=== PATIENT | female | born 1955 | race Caucasian/White ===

== ENCOUNTER 2016-05-18 19:33 | Emergency (ER) | payer OTHER ==
[2016-05-18 19:43] VITALS: BP 128/62; PULSE 95; TEMP 97.7; BMI 66.5
[2016-05-18 20:21] LABS: BASOPHIL 1.2 % (0-2.0); EOSINOPHIL 1.8 % (0-4.5); MCH 25.4 pg (25.7-33.7); MCHC 32.4 g/dl (32.0-36.0); MEAN CELL VOLUME 78.4 fl (80-96); MEAN PLT VOLUME 9.8 fl (7.5-11.1); NEUTROPHILS 64.1 % (42.8-82.8); PLATELET COUNT 179 K/MM3 (134-434); RDW 17.1 % (11.6-15.6); WHITE BLOOD COUNT 7.5 K/mm3 (4.0-10.0)
[2016-05-18 20:50] LABS: URINE APPEARANCE CLEAR; URINE BILIRUBIN NEGATIVE (NEGATIVE); URINE COLOR YELLOW; URINE GLUCOSE (UA) NEGATIVE (NEGATIVE); URINE KETONE NEGATIVE (NEGATIVE); URINE LEUK ESTERASE NEGATIVE (NEGATIVE); URINE NITRITE NEGATIVE (NEGATIVE); URINE UROBILINOGEN NEGATIVE E.U./dl (0.2-1.0)
[2016-05-18 20:53] LABS: URINE BLOOD 2+ (NEGATIVE); URINE PROTEIN 3+ (NEGATIVE)
[2016-05-18 20:59] LABS: URINE MUCUS RARE; URINE RBC 95 /hpf (0-3); URINE WBC 4 /hpf (3-5)
--- NOTE | 2016-05-18 21:34 | PDOC ---
History of Present Illness - General Chief Complaint: Cold Symptoms Stated Complaint: COLD SYMPTOMS Time Seen by Provider: 05/18/16 19:46 History Source: Patient Exam Limitations: No Limitations - History of Present Illness Travel History: No Initial Comments: 05/18/16 21:28 60yo Female patient presents to ED c/o upper respiratory cold symptoms and hematuria. Patient reports she takes 5mg of Coumadin daily for Afib, she has not seen her PMD for INR testing since January of last year. Patient reports 3- 4 days of hematuria w/o urinary symptoms. Patient also reports she blew her nose x1 with noticeable blood on napkin. Denies rectal bleeding, hemoptysis, CP , Abd pain, n/v/d, fever, back pain, or any other complaints at this time. Timing/Duration: reports: getting worse Quality: reports: moderate Abdominal Pain Onset Location: denies: RUQ, LUQ, RLQ, LLQ, epigastric, periumbilical, suprapubic, generalized abdomen, flank, unknown, other Pain Radiation: denies: no radiation, RUQ, LUQ, RLQ, LLQ, epigastric, periumbilical, flank, groin, scapula, shoulder, chest, back, other Activities at Onset: reports: no specific activity Treatment Prior to Arrive: worse with: analgesics, antacids, cold pack, heat, laxative, enema, other Aggravating Factors: worse with: None, Defecation, Eating, Emotional upset, Exertion, Antares, Movement, Voiding, Change in position Alleviating Factors: worse with: None, Belching, Shallow Breathing, Defecation, Eating, Holding Breath, Passing Gas, Change in Position, Rest, Voiding, Vomiting Past History - Travel Traveled outside of the country in the last 30 days: No Close contact w/someone who was outside of country & ill: No - Past Medical History Allergies/Adverse Reactions: Allergies Allergy/AdvReac Type Severity Reaction Status Date / Time No Known Allergies Allergy Verified 05/18/16 19:43 Home Medications: Ambulatory Orders Ferrous Sulfate 325 mg PO DAILY 10/17/12 Insuln Asp Prt/Insulin Aspart [Novolog Mix 70-30 Flexpen Syrn] 35 unit SQ BID Levothyroxine [Synthroid -] 75 mcg PO DAILY 10/17/12 Loratadine [Claritin -] 10 mg PO DAILY 10/17/12 Losartan Potassium 50 mg PO DAILY 10/17/12 Metformin HCl [Glucophage] 500 mg PO BID 10/17/12 Montelukast Na [Singulair -] 10 mg PO HS 10/17/12 [place]-3 Acid Ethyl Esters [Lovaza -] 1,000 mg PO TID 10/17/12 Potassium Chloride 10 meq PO DAILY 10/17/12 Ranitidine [Zantac -] 150 mg PO BID 10/17/12 Simvastatin [Zocor -] 40 mg PO HS 10/17/12 Tiotropium [place] [Spiriva] 1 inh IH DAILY 10/17/12 Warfarin Sodium [Coumadin] 5 mg PO DAILY 10/17/12 Bumetanide [Bumex -] 1 mg PO BID@1000,1400 #60 tablet 02/19/15 Diltiazem Cd [Cardizem Cd -] 240 mg PO DAILY #30 cap.cd.24h 02/19/15 Ciprofloxacin [Cipro (Restricted To Id)] 500 mg PO Q12H #28 tablet 05/18/16 Cardiac Disorders: Yes (ARRHYTHMIA, A-FIB) COPD: Yes Diabetes: Yes GI Disorders: Yes (GERD) HTN: Yes Hypercholesterolemia: Yes Thyroid Disease: Yes (HYPOTHYROID) - Psycho/Social/Smoking Cessation Hx Anxiety: No Suicidal Ideation: No Smoking Status: No Smoking History: Never smoked Number of Cigarettes Smoked Daily: 0 Hx Alcohol Use: No Drug/Substance Use Hx: Yes Substance Use Type: None Abd/GI Specific PMHX - Complaint Specific PMHX Colitis: No Diverticulitis: No Gall Bladder Disease: No GERD: No Hepatitis: No Irritable Bowel Synd (IBS): No Pancreatitis: No GI Ulcer Disease: No Review of Systems - Review of Systems Able to Perform ROS?: Yes Is the patient limited Polish proficient: No Constitutional: No: Chills, Fever, Malaise, Weakness HEENTM: No: Eye Pain, Blurred Vision, Double Vision, Ear Pain, Nose Pain, Nose Congestion, Nose Bleeding, Throat Pain, Difficulty Swallowing Respiratory: No: Cough, Orthopnea, Shortness of Breath, Stridor, Wheezing, Hemoptysis Cardiac (ROS): Yes: Irregular Heart Rate. No: Chest Pain, Palpitations, Chest Tightness ABD/GI: No: Blood Streaked Bowels, Constipated, Diarrhea, Nausea, Poor Appetite , Poor Fluid Intake, Rectal Bleeding, Vomiting, Tarry Stools : Yes: Hematuria. No: Burning, Dysuria, Discharge, Frequency, Flank Pain, Pain, Urgency Musculoskeletal: No: Back Pain, Joint Pain, Muscle Pain, Muscle Weakness Integumentary: No: Bruising, Dryness, Erythema, Flushing, Rash Neurological: No: Headache, Numbness, Paresthesia, Seizure, Tremors, Weakness, Unsteady Gait, Ataxia All Other Systems: Reviewed and Negative *Physical Exam - Vital Signs Last Vital Signs Temp Pulse Resp BP Pulse Ox 97.7 F 95 H 18 128/62 99 05/18/16 19:40 05/18/16 19:40 05/18/16 19:40 05/18/16 19:40 05/18/16 19:40 - Physical Exam General Appearance: Yes: Nourished, Appropriately Dressed. No: Mild Distress, Moderate Distress, Severe Distress HEENT: positive: EOMI, RADHA, Normal ENT Inspection, Normal Voice, Symmetrical, TMs Normal, Pharynx Normal. negative: Tonsillar Erythema, Nasal Congestion, Rhinorrhea, Sinus Tenderness, TM Bulging, TM Dull, TM Erythema Neck: positive: Trachea midline, Supple. negative: Decreased range of motion, Stridor, Lymphadenopathy (R), Lymphadenopathy (L) Respiratory/Chest: positive: Lungs Clear, Normal Breath Sounds. negative: Respiratory Distress, Accessory Muscle Use, Labored Respiration, Rapid RR, Decreased Breath Sounds Cardiovascular: positive: Regular Rhythm, Regular Rate. negative: Edema, JVD, Murmur Gastrointestinal/Abdominal: positive: Normal Bowel Sounds, Soft. negative: Distended, Guarding, Rebound, Tenderness Musculoskeletal: positive: Normal Inspection. negative: CVA Tenderness Extremity: positive: Normal Capillary Refill, Normal Inspection, Normal Range of Motion Integumentary: positive: Normal Color, Dry, Warm Neurologic: positive: construction technician II-XII NML intact, Fully Oriented, Alert, Normal Mood/ Affect, Normal Response, Motor Strength /5 ED Treatment Course - LABORATORY CBC & Chemistry Diagram: 05/18/16 20:13 05/18/16 21:25 - ADDITIONAL ORDERS Additional order review: Laboratory Results 05/18/16 05/18/16 05/18/16 20:13 20:13 20:13 INR Sodium Cancelled Potassium Cancelled Chloride Cancelled Carbon Dioxide Cancelled Anion Gap Cancelled BUN Cancelled Creatinine Cancelled Creat Clearance w eGFR Cancelled Random Glucose Cancelled Calcium Cancelled Total Bilirubin Cancelled AST Cancelled ALT Cancelled Alkaline Phosphatase Cancelled Total Protein Cancelled Albumin Cancelled Urine Color Yellow Urine Appearance Clear Urine pH 6.0 Ur Specific [place] 1.019 Urine Protein 3+ H Urine Glucose (UA) Negative Urine Ketones Negative Urine Blood 2+ H Urine Nitrite Negative Urine Bilirubin Negative Urine Urobilinogen Negative Ur Leukocyte Esterase Negative Urine RBC 95 Urine WBC 4 Ur Epithelial Cells Rare Urine Mucus Rare Blood Type O NEGATIVE Antibody Screen Negative 05/18/16 20:13 INR Cancelled Sodium Potassium Chloride Carbon Dioxide Anion Gap BUN Creatinine Creat Clearance w eGFR Random Glucose Calcium Total Bilirubin AST ALT Alkaline Phosphatase Total Protein Albumin Urine Color Urine Appearance Urine pH Ur Specific [place] Urine Protein Urine Glucose (UA) Urine Ketones Urine Blood Urine Nitrite Urine Bilirubin Urine Urobilinogen Ur Leukocyte Esterase Urine RBC Urine WBC Ur Epithelial Cells Urine Mucus Blood Type Antibody Screen 05/18/16 20:13 RBC 5.13 D MCV 78.4 L MCHC 32.4 RDW 17.1 H D MPV 9.8 Neutrophils % 64.1 Lymphocytes % 22.2 D Monocytes % 10.7 H Eosinophils % 1.8 Basophils % 1.2 Progress Note - Progress Note Progress Note: SPOKE WITH PATIENT IN LENGTH REGARDING RESULTS OF BLOOD TEST, INR, URINALYSIS. PATIENT VERBALIZED THAT SHE DID NOT HAVE PCP, HANDBAG PARTS CUTTER, OR UROLOGIST. WILL REFER PATIENT TO THESE SPECIALIST WITH SPECIFIC INSTRUCTIONS. *DC/Admit/Observation/Transfer Diagnosis at time of Disposition: Hematuria - Discharge Dispostion Disposition: HOME Condition at time of disposition: Stable Admit: No - Prescriptions Prescriptions: Ciprofloxacin [Cipro (Restricted To Id)] 500 mg PO Q12H #28 tablet - Referrals Referrals: Zachary High MD [Staff Physician] - Bam Fernandez MD [Staff Physician] - Oswaldo Ying MD., [Staff Physician] - - Patient Instructions Printed Discharge Instructions: DI for Hematuria Additional Instructions: 1. FOLLOW UP WITH TOYIN DIAS TO ESTABLISH CARE. (PRIMARY CARE). CALL TO SCHEDULE APPOINTMENT. HAVE INR LEVEL CHECKED. 2. FOLLOW UP WITH JIMMY WAN (HANDBAG PARTS CUTTER) REGARDING IRREGULAR HEART RHYTHM , MANAGEMENT OF COUMADIN AND CARDIZEM. CALL TO SCHEDULE APPOINTMENT. 3. FOLLOW UP WITH SHERI PEREZ (UROLOGIST) REGARDING BLOOD IN URINE. CALL TO SCHEDULE APPOINTMENT. TAKE YOUR MEDICATIONS PRESCRIBED. RETURN IF YOUR SYMPTOMS WORSEN OR ANY CONCERNS FOR FURTHER EVALUATION. Print Language: AZERI
[2016-05-18 22:24] LABS: ALBUMIN 3.8 g/dl (3.4-5.0); ALK PHOS 123 U/L (45-117); ANION GAP 11 (8-16); BILIRUBIN,TOTAL 0.8 mg/dL (0.2-1.0); CALCIUM 9.3 mg/dL (8.5-10.1); CO2 26 mmol/L (21-32); CREATININE 0.9 mg/dL (0.55-1.02); GLUCOSE,RANDOM 175 mg/dL (74-106); SGOT/AST 13 U/L (15-37); SGPT/ALT 19 U/L (12-78); TOT PROT 8.2 g/dl (6.4-8.2)
[2016-05-18 22:43] LABS: INR 1.69 (0.82-1.09); PROTHROMBIN TIME (PATIENT) 18.8 SEC (9.98-11.88)
[2016-05-18] MEDS ORDERED: CIPROFLOXACIN 250 MG TABLET (RESTRICTED TO ID) PO ONE (23:23)
== END 2016-05-18 23:44 | disposition home or self-care (01) ==
LOC: JER 19:33
DX: R31.9 Hematuria, unspecified (principal); I48.91 Unspecified atrial fibrillation; Z79.01 Long term (current) use of anticoagulants; I10 Essential (primary) hypertension; Z79.84 Long term (current) use of oral hypoglycemic drugs; E78.00 Pure hypercholesterolemia, unspecified; E03.9 Hypothyroidism, unspecified; E11.9 Type 2 diabetes mellitus without complications; Z79.4 Long term (current) use of insulin; I49.8 Other specified cardiac arrhythmias; J44.9 Chronic obstructive pulmonary disease, unspecified; K21.9 Gastro-esophageal reflux disease without esophagitis
CPT/HCPCS: 36415; 80053; 81003; 81015; 85025; 85610; 86850; 86900; 86901; 87086; 87186; 99282-25

== ENCOUNTER 2016-09-08 17:56 | Inpatient (IN) | payer OTHER ==
[2016-09-08 18:05] VITALS: BMI 62.4
[2016-09-08 18:55] LABS: BASOPHIL 1.1 % (0-2.0); MCH 24.2 pg (25.7-33.7); MCHC 31.2 g/dl (32.0-36.0); MEAN CELL VOLUME 77.6 fl (80-96); MEAN PLT VOLUME 10.6 fl (7.5-11.1); NEUTROPHILS 60.4 % (42.8-82.8); PLATELET COUNT 223 K/MM3 (134-434); RDW 17.2 % (11.6-15.6); WHITE BLOOD COUNT 6.7 K/mm3 (4.0-10.0)
[2016-09-08 19:09] LABS: INR 1.33 (0.82-1.09); PROTHROMBIN TIME (PATIENT) 14.7 SEC (9.98-11.88)
[2016-09-08] MEDS ORDERED: FUROSEMIDE 40 MG/4 ML INJECTABLE VIAL IVPB ONE (19:40)
--- NOTE | 2016-09-08 19:42 | PDOC ---
History of Present Illness <Danae Kimble - Last Filed: 09/08/16 21:22> - General History Source: Patient Exam Limitations: No Limitations - History of Present Illness Initial Comments: 09/08/16 19:42 The patient is a 61 year old female, with a significant past medical history of Hypertension (on Cardizem), AFIB, diabetes, CHF, COPD, GERD and hypothyroidism , who presents to the emergency department with SOB for few days. Patient saw her PMD 2 days ago with the same complaint who was supposed to prescribe her breathing treatment pumps, but patient states that the pumps were never sent by her doctor which prompted her to present to the ED. Patient denies any new leg swelling. Patient reports orthopnea and states that she sleeps with 2 pillows. She notes that she is cold but denies any fever. She reports normal bowel movements. She denies any chest pain. She denies any hx of hernia. PSH - none PMD - Dr. Brambila <Yohana Aranda - Last Filed: 09/08/16 22:20> - General Chief Complaint: Respiratory Stated Complaint: SOB Time Seen by Provider: 09/08/16 19:23 Past History - Past Medical History Cardiac Disorders: Yes (ARRHYTHMIA, A-FIB) COPD: Yes Diabetes: Yes GI Disorders: Yes (GERD) HTN: Yes Hypercholesterolemia: Yes Thyroid Disease: Yes (HYPOTHYROID) - Psycho/Social/Smoking Cessation Hx Anxiety: No Suicidal Ideation: No Smoking Status: No Smoking History: Never smoked Number of Cigarettes Smoked Daily: 0 Hx Alcohol Use: No Drug/Substance Use Hx: No Substance Use Type: None <Danae Kimble - Last Filed: 09/08/16 21:22> <Yohana Aranda - Last Filed: 09/08/16 22:20> - Past Medical History Allergies/Adverse Reactions: Allergies Allergy/AdvReac Type Severity Reaction Status Date / Time No Known Allergies Allergy Verified 09/08/16 18:05 Home Medications: Ambulatory Orders Ferrous Sulfate 325 mg PO DAILY 10/17/12 Insuln Asp Prt/Insulin Aspart [Novolog Mix 70-30 Flexpen Syrn] 35 unit SQ BID Levothyroxine [Synthroid -] 75 mcg PO DAILY 10/17/12 Loratadine [Claritin -] 10 mg PO DAILY 10/17/12 Losartan Potassium 50 mg PO DAILY 10/17/12 Metformin HCl [Glucophage] 1,000 mg PO BID 10/17/12 Montelukast Na [Singulair -] 10 mg PO HS 10/17/12 [place]-3 Acid Ethyl Esters [Lovaza -] 1,000 mg PO TID 10/17/12 Potassium Chloride 10 meq PO DAILY 10/17/12 Ranitidine [Zantac -] 150 mg PO BID 10/17/12 Simvastatin [Zocor -] 40 mg PO HS 10/17/12 Tiotropium [place] [Spiriva] 1 inh IH DAILY 10/17/12 Warfarin Sodium [Coumadin] 5 mg PO DAILY 10/17/12 Calcium Carbonate/Vitamin D3 [Oyster Shell Calcium-Vit D Tab] 1 each PO DAILY Diltiazem Cd [Cardizem Cd -] 300 mg PO DAILY 09/08/16 Sennosides [Senna] 8.6 mg PO PRN 09/08/16 Spironolactone 60 mg PO DAILY 09/08/16 Review of Systems - Review of Systems Able to Perform ROS?: Yes Comments:: 09/08/16 19:43 GENERAL/CONSTITUTIONAL: No fever or chills. No weakness. HEAD, EYES, EARS, NOSE AND THROAT: No change in vision. No ear pain or discharge. No sore throat. CARDIOVASCULAR: No chest pain. RESPIRATORY: (+)SOB, (+)dyspnea on exertion. No cough, wheezing, or hemoptysis. GASTROINTESTINAL: No nausea, vomiting, diarrhea or constipation. GENITOURINARY: No dysuria, frequency, or change in urination. MUSCULOSKELETAL: No joint or muscle swelling or pain. No neck or back pain. SKIN: No rash NEUROLOGIC: No headache, vertigo, loss of consciousness, or change in strength/ sensation. ENDOCRINE: No increased thirst. No abnormal weight change. HEMATOLOGIC/LYMPHATIC: No anemia, easy bleeding, or history of blood clots. ALLERGIC/IMMUNOLOGIC: No hives or skin allergy. <oYhana Aranda - Last Filed: 09/08/16 22:20> *Physical Exam - Vital Signs Last Vital Signs Temp Pulse Resp BP Pulse Ox 92 H 20 151/85 97 09/08/16 18:01 09/08/16 18:01 09/08/16 18:01 09/08/16 18:01 <Danae Kimble - Last Filed: 09/08/16 21:22> - Vital Signs Last Vital Signs Temp Pulse Resp BP Pulse Ox 92 H 20 151/85 97 09/08/16 18:01 09/08/16 18:01 09/08/16 18:01 09/08/16 18:01 - Physical Exam Comments: 09/08/16 19:43 GENERAL: Awake, alert, and fully oriented, in no acute distress HEAD: No signs of trauma EYES: PERRLA, EOMI, sclera anicteric, conjunctiva clear ENT: Auricles normal inspection, hearing grossly normal, nares patent, oropharynx clear without exudates. Moist mucosa NECK: Normal ROM, supple, no lymphadenopathy, JVD, or masses LUNGS: (+)Left lower lung field decreased breath sounds. No wheezes, and no crackles HEART: (+)Afib, irregularly irregular rhythm with normal rate. Normal S1 and S2 , no murmurs, rubs or gallops ABDOMEN: (+)Morbidly obese. Soft, nontender, normoactive bowel sounds. No guarding, no rebound. No masses EXTREMITIES: (+)bilateral pedal edema. Normal range of motion. No clubbing or cyanosis. No cords, erythema, or tenderness NEUROLOGICAL: Cranial nerves II through XII grossly intact. Normal speech. SKIN:(+)Chronic thickened skin elephantiasis bilaterally. Warm, Dry, normal turgor, no rashes or lesions noted. <Yohana Aranda - Last Filed: 09/08/16 22:20> ED Treatment Course - LABORATORY CBC & Chemistry Diagram: 09/08/16 18:45 09/08/16 19:48 - ADDITIONAL ORDERS Additional order review: Laboratory Results 09/08/16 09/08/16 09/08/16 18:45 18:45 18:45 INR 1.33 H Sodium Cancelled Potassium Cancelled Chloride Cancelled Carbon Dioxide Cancelled Anion Gap Cancelled BUN Cancelled Creatinine Cancelled Creat Clearance w eGFR Cancelled Random Glucose Cancelled Calcium Cancelled Total Bilirubin Cancelled AST Cancelled ALT Cancelled Alkaline Phosphatase Cancelled Creatine Kinase Cancelled Troponin I Cancelled B-Natriuretic Peptide Cancelled Total Protein Cancelled Albumin Cancelled 09/08/16 18:45 RBC 5.38 H MCV 77.6 L MCHC 31.2 L RDW 17.2 H MPV 10.6 Neutrophils % 60.4 Lymphocytes % 25.0 Monocytes % 11.5 H Eosinophils % 2.0 Basophils % 1.1 <Danae Kimble - Last Filed: 09/08/16 21:22> - LABORATORY CBC & Chemistry Diagram: 09/08/16 18:45 09/08/16 19:48 - ADDITIONAL ORDERS Additional order review: Laboratory Results 09/08/16 09/08/16 09/08/16 18:45 18:45 18:45 INR 1.33 H Sodium Cancelled Potassium Cancelled Chloride Cancelled Carbon Dioxide Cancelled Anion Gap Cancelled BUN Cancelled Creatinine Cancelled Creat Clearance w eGFR Cancelled Random Glucose Cancelled Calcium Cancelled Total Bilirubin Cancelled AST Cancelled ALT Cancelled Alkaline Phosphatase Cancelled Creatine Kinase Cancelled Troponin I Cancelled B-Natriuretic Peptide Cancelled Total Protein Cancelled Albumin Cancelled 09/08/16 18:45 RBC 5.38 H MCV 77.6 L MCHC 31.2 L RDW 17.2 H MPV 10.6 Neutrophils % 60.4 Lymphocytes % 25.0 Monocytes % 11.5 H Eosinophils % 2.0 Basophils % 1.1 <Yohana Aranda - Last Filed: 09/08/16 22:20> Medical Decision Making - Medical Decision Making 09/08/16 20:47 Pt comes with CHF exacerbation. She is beyond morbidly obese - BMI is 62. She is able to walk short distances. SHe saw her PMD [place] yesterday and she was told that her SOB is par for the course. Pt states that she has decreased appetite ad she complains that the SOB is worse. NO fevers and no cough. She has rate controlled AFIB with cardizem. Pt has no frit mixer; she likely needs a cardiology consult. On exam she has no breath sounds at the LLL, and on XR she has a large effusion on the left and patchy effususion throughout both lung juarez. Pt will be admitted to hospitalist. She was given IV lasix and she is urinating. 09/08/16 21:16 Pt has no WBC elevation. Pt has relatively normal BNP of 441. Pt has normal chemistries. She will be admitted to the hospitalist Med/Surg bed. <Danae Kimble - Last Filed: 09/08/16 21:22> *DC/Admit/Observation/Transfer - Discharge Dispostion Admit: Yes <Danae Kimble - Last Filed: 09/08/16 21:22> - Attestations Scribe Attestion: 09/08/16 19:46 Documentation prepared by ERIN Keys, acting as medical records tech for Danae Kimble MD. <Yohana Aranda - Last Filed: 09/08/16 22:20> Diagnosis at time of Disposition: CHF exacerbation, Morbidly obese, Pleural effusion, Acute dyspnea, HTN ( hypertension) - Discharge Dispostion Condition at time of disposition: Poor - Referrals
[2016-09-08] MEDS ORDERED: FUROSEMIDE 40 MG/4 ML INJECTABLE VIAL ONE (19:49)
[2016-09-08 20:38] LABS: ALBUMIN 3.2 g/dl (3.4-5.0); BILIRUBIN,TOTAL 0.5 mg/dL (0.2-1.0); CALCIUM 9.8 mg/dL (8.5-10.1); COCKROFT - GAULT 158.797; TOT PROT 7.6 g/dl (6.4-8.2)
[2016-09-08 20:40] LABS: TROPONIN I < 0.02 ng/ml (0.00-0.05)
--- NOTE | 2016-09-08 21:23 | PN ---
<Zaire Jackman - Last Filed: 09/08/16 21:23> Teaching Attending Note Name of Resident: Rod Cid ATTENDING PHYSICIAN STATEMENT I saw and evaluated the patient. I reviewed the resident's note and discussed the case with the resident. I agree with the resident's findings and plan as documented. SUBJECTIVE: OBJECTIVE: ASSESSMENT AND PLAN: <Festus Smith - Last Filed: 09/08/16 22:42> Teaching Attending Note ATTENDING PHYSICIAN STATEMENT I saw and evaluated the patient. I reviewed the resident's note and discussed the case with the resident. I agree with the resident's findings and plan as documented. SUBJECTIVE: The patient is a 61 year old female, with a significant past medical history of Hypertension (on Cardizem), AFIB (on sumadin), diabetes, CHF, COPD, GERD and hypothyroidism, who presented to the emergency department with shortness of breath. Patient noted that she has associated orthopnea and sleeps with two pillows. She denies any chest pain. She denies any hx of hernia. PMD - Dr. Brambila OBJECTIVE: Last Vital Signs 3 Temp Pulse Resp BP Pulse Ox 63 22 126/71 97 09/08/16 21:09 09/08/16 21:09 09/08/16 21:09 09/08/16 21:09 Physical Exam: GEN: Obese female NAD HEENT: NCAT, PERRL CARD: Irregular rate and rhythm, S1 S2 RESP: (+) CTAB. Decreased breath sounds lower lobe ABD: NT, BWS x4 EXT: - CCE SKIN: (+) Chronic venous stasis and Bilateral lymphedema Labs: CBCD 3 WBC 6.7 K/mm3 (4.0-10.0) 09/08/16 18:45 RBC 5.38 M/mm3 (3.60-5.2) H 09/08/16 18:45 Hgb 13.0 GM/dL (10.7-15.3) 09/08/16 18:45 Hct 41.8 % (32.4-45.2) 09/08/16 18:45 MCV 77.6 fl (80-96) L 09/08/16 18:45 MCHC 31.2 g/dl (32.0-36.0) L 09/08/16 18:45 RDW 17.2 % (11.6-15.6) H 09/08/16 18:45 Plt Count 223 K/MM3 (134-434) D 09/08/16 18:45 MPV 10.6 fl (7.5-11.1) 09/08/16 18:45 CMP 3 Sodium 140 mmol/L (136-145) 09/08/16 19:48 Potassium 3.9 mmol/L (3.5-5.1) 09/08/16 19:48 Chloride 102 mmol/L (98-107) 09/08/16 19:48 Carbon Dioxide 28 mmol/L (21-32) 09/08/16 19:48 Anion Gap 10 (8-16) 09/08/16 19:48 BUN 13 mg/dL (7-18) 09/08/16 19:48 Creatinine 1.0 mg/dL (0.55-1.02) 09/08/16 19:48 Creat Clearance w eGFR 56.37 (>60) 09/08/16 19:48 Calcium 9.8 mg/dL (8.5-10.1) 09/08/16 19:48 Total Bilirubin 0.5 mg/dL (0.2-1.0) D 09/08/16 19:48 AST 21 U/L (15-37) D 09/08/16 19:48 ALT 15 U/L (12-78) D 09/08/16 19:48 Alkaline Phosphatase 123 U/L (45-117) H 09/08/16 19:48 Total Protein 7.6 g/dl (6.4-8.2) 09/08/16 19:48 Albumin 3.2 g/dl (3.4-5.0) L 09/08/16 19:48 Imaging: EXAM: Chest X-ray. Impression: Left pleural effusion bilateral patchy infiltrates EXAM: ECG. Impression: AFIB rate 77 QTC 427 ASSESSMENT AND PLAN: The patient is a 61 year old female, with a significant past medical history of Hypertension (on Cardizem), AFIB (on sumadin), diabetes, CHF, COPD, GERD and hypothyroidism, who presented to the emergency department with shortness of breath. 1. Shortness of breath - Differential diagnosis pneumonia versus CHF - CT chest with contrast - Post lasik in ED - Strict I & O - Restrict fluid - Trend troponin/ECg - Thoracocentesis with fluid analysis 2. Acute on chronic CHF exacerbation - ECHO - ECG/troponins - Continue lasix 3 Hypothyroid - Stat TSH - Continue synthroid 4. AFIB - [id number]. On coumadin subtherapeutic. - Lovenox - Continue coumadin - Continue cardizem - Cardio consult consider decreasing cardizem dose or switching to beta av 5. Diabetes - Hold metformin - Diabetic diet - Hold flexpen - Place on sliding scale Admit to med surg. Documentation prepared by Festus Smith, acting as medical videographer for Dr. Zaire Jackman MD.
[2016-09-08] MEDS ORDERED: ENOXAPARIN NA (PORCINE) 40 MG/0.4 ML DISP.SYRIN SQ SCH (22:30)
[2016-09-08] MEDS ORDERED: SENNOSIDES 8.6MG TABLET (FP) PO PRN (22:45)
[2016-09-08] MEDS: INSULIN SLIDING SCALE (NOVOLOG) 1 VIAL SQ SCH (22:50)
[2016-09-08] MEDS ORDERED: INSULIN (NOVOLOG) ASPART 100 UNITS/ML 10ML VIAL ONE (22:53)
[2016-09-08] MEDS ORDERED: ENOXAPARIN NA (PORCINE) 80 MG/0.8 ML DISP.SYRIN SQ ONE (22:53)
--- NOTE | 2016-09-08 23:09 | HP ---
CHIEF COMPLAINT: PCP: Dr Brambila HISTORY OF PRESENT ILLNESS: 61 year old female with pmh of Hypertension, AFIB on Coumadin, diabetes, CHF, COPD, GERD and hypothyroidism presented to ED with worsening shortness of breath. the shortness of breath started on 3-4 days ago with dyspnea on exertion , orthopnea. Pt has b/l lower ext swelling but she stated that it has been swollen for years. Pt also has productive cough with yellow sputum, and rhinorrhea for 1 week, no hemoptysis. NO fever, chills, no chest pain or palpitation, no n/v, no dizziness or confusion, no diaphoresis or felling of impending doom, no weakness or fatigue, no arthalgia or myalgia. Pt also complain of being off her spiriva since he doctor did not give her any refill. Pt restarted Coumadin 3 days ago, she had stopped using it per her PCP order for GI bleed. No hematuria, no melena, no hematochezia. ER course was notable for: (1) CXR, LAsix 40mg IV once, Recent Travel: None PAST MEDICAL HISTORY: Hypertension (on Cardizem), AFIB, diabetes, CHF, COPD, GERD and hypothyroidism PAST SURGICAL HISTORY: denies Social History: Smoking:denies Alcohol:denies Drugs: denies Family History: Mother with diabetes Allergies No Known Allergies Allergy (Verified 09/08/16 18:05) HOME MEDICATIONS: Home Medications Medication Instructions Recorded Ferrous Sulfate 325 mg PO DAILY 10/17/12 Insuln Asp Prt/Insulin Aspart 35 unit SQ BID 10/17/12 [Novolog Mix 70-30 Flexpen Syrn] Levothyroxine [Synthroid -] 75 mcg PO DAILY 10/17/12 Loratadine [Claritin -] 10 mg PO DAILY 10/17/12 Losartan Potassium 50 mg PO DAILY 10/17/12 Metformin HCl [Glucophage] 1,000 mg PO BID 10/17/12 Montelukast Na [Singulair -] 10 mg PO HS 10/17/12 [place]-3 Acid Ethyl Esters [Lovaza 1,000 mg PO TID 10/17/12 -] Potassium Chloride 10 meq PO DAILY 10/17/12 Ranitidine [Zantac -] 150 mg PO BID 10/17/12 Simvastatin [Zocor -] 40 mg PO HS 10/17/12 Tiotropium [place] [Spiriva] 1 inh IH DAILY 10/17/12 Warfarin Sodium [Coumadin] 5 mg PO DAILY 10/17/12 Calcium Carbonate/Vitamin D3 1 each PO DAILY 09/08/16 [Oyster Shell Calcium-Vit D Tab] Diltiazem Cd [Cardizem Cd -] 300 mg PO DAILY 09/08/16 Sennosides [Senna] 8.6 mg PO PRN 09/08/16 Spironolactone 60 mg PO DAILY 09/08/16 REVIEW OF SYSTEMS CONSTITUTIONAL: Absent: fever, chills, diaphoresis, generalized weakness, malaise, loss of appetite, weight change HEENT: Absent: rhinorrhea, nasal congestion, throat pain, throat swelling, difficulty swallowing, mouth swelling, ear pain, eye pain, visual changes CARDIOVASCULAR: peripheral edema Absent: chest pain, syncope, palpitations, irregular heart rate, lightheadedness , RESPIRATORY: cough, shortness of breath, dyspnea with exertion, orthopnea Absent: wheezing, stridor, hemoptysis GASTROINTESTINAL: Absent: abdominal pain, abdominal distension, nausea, vomiting, diarrhea, constipation, melena, hematochezia GENITOURINARY: Absent: dysuria, frequency, urgency, hesitancy, hematuria, flank pain, genital pain MUSCULOSKELETAL: Absent: myalgia, arthralgia, joint swelling, back pain, neck pain SKIN: Absent: rash, itching, pallor HEMATOLOGIC/IMMUNOLOGIC: Absent: easy bleeding, easy bruising, lymphadenopathy, frequent infections ENDOCRINE: Absent: unexplained weight gain, unexplained weight loss, heat intolerance, cold intolerance NEUROLOGIC: Absent: headache, focal weakness or paresthesias, dizziness, unsteady gait, seizure, mental status changes, bladder or bowel incontinence PSYCHIATRIC: Absent: anxiety, depression, suicidal or homicidal ideation, hallucinations. PHYSICAL EXAMINATION Vital Signs - 24 hr 09/08/16 22:30 Temperature 97.4 F L Pulse Rate [ 68 Left Radial] Respiratory 19 Rate Blood Pressure 130/74 [Left Arm] O2 Sat by Pulse 97 Oximetry (%) GENERAL: Awake, alert, and fully oriented, morbidly obese female in no acute distress. HEAD: Normal with no signs of trauma. EYES: Pupils equal, round and reactive to light, extraocular movements intact, sclera anicteric, conjunctiva clear. No lid lag. EARS, NOSE, THROAT: Ears normal, nares patent, oropharynx clear without exudates. Moist mucous membranes. NECK: Normal range of motion, supple without lymphadenopathy, JVD, or masses. LUNGS: diminhed breath sound in lower half lung field. exp wheezes in right and upper left lung wheezes. No accessory muscle use. HEART: Regular rate and rhythm, normal S1 and S2 without murmur, rub or gallop. ABDOMEN: Soft, obese, nontender, not distended, normoactive bowel sounds, no guarding, no rebound, no masses. No hepatomegaly or splenomegaly. MUSCULOSKELETAL: Normal range of motion at all joints. No bony deformities or tenderness. No CVA tenderness. UPPER EXTREMITIES: 2+ pulses, warm, well-perfused. No cyanosis. No clubbing. No peripheral edema. LOWER EXTREMITIES: 2+ pulses, warm, well-perfused. No calf tenderness. 2+ b/l lower ext edema, venous stasis and lymphadema NEUROLOGICAL: Cranial nerves II-XII intact. Normal speech. PSYCHIATRIC: Cooperative. Good eye contact. Appropriate mood and affect. SKIN: Warm, dry, normal turgor, no rashes or lesions noted, normal capillary refill. b/l lower ext with swollen, dry, scaly skin CBC, BMP 09/08/16 18:45 09/08/16 19:48 Laboratory Tests 09/08/16 09/08/16 18:45 19:48 INR 1.33 H Troponin I < 0.02 B-Natriuretic Peptide 441.31 H ASSESSMENT/PLAN: 61 year old female with pmh of Hypertension, AFIB on Coumadin, diabetes, CHF, COPD, GERD and hypothyroidism presented to ED with worsening shortness of breath. Pt was found to have large left pleural effusion and multiple diffuse small area of opacities on CXR. Shortness of breath likely from Left pleural effusion, URI less likely CHF large left pleural effusion seen on CXR Will likely need paracentesis CT chest with IV contrast LAsix 40mg IV daily Pulmonary consult keeP O2 90% PRN oxygen [place] VS COPD Denies h/o smoking mostly wheezes productive cough for 1 week If COPD will be bronchitis predominant resume spririva Albuterol PRN Resume Loratidine Pulmonary consulted b/l pulmonary patches r/o infiltrates, nodules, mets CT chest with IV contrast Pulmonary consult Diabetes BGM ACHS Novolog sliding scale Hga1c CHF BNP 441, which is borderline Do not have high suspicion of acute exacerbation Intake and output daily weight Echo LAsix 40mg IV Spironolactone AFIB Diltiazem Cd 300daily Coumadin 5mg PO daily Since INR is subtherapeuric will bridge couamdin Lovenox 170mg BID HTN Losartan Hyperlipedemia Simvastatin Hypothyroidism Levothyroxine 75 mcg daily GERD ranitidine FEN Fluid: none Electrolytes: chemistry in am Nutrition: diabetic diet DVT: lovenox, coumadin Disposition: admit to [facility] Visit type - Emergency Visit Emergency Visit: Yes ED Registration Date: 09/08/16 Care time: The patient presented to the Emergency Department on the above date and was hospitalized for further evaluation of their emergent condition. - New Patient This patient is new to me today: Yes Date on this admission: 09/09/16 - Critical Care Critical Care patient: No
[2016-09-08] MEDS ORDERED: ENOXAPARIN SQ SCH (23:30)
[2016-09-09] MEDS: INSULIN SLIDING SCALE (NOVOLOG) 1 VIAL SQ SCH ×4 (06:17→21:39)
[2016-09-09] MEDS: LEVOTHYROXINE NA 75 MCG TABLET (FP) PO SCH (06:31)
[2016-09-09 07:46] LABS: MCH 24.9 pg (25.7-33.7); MCHC 32.2 g/dl (32.0-36.0); MEAN CELL VOLUME 77.3 fl (80-96); MEAN PLT VOLUME 10.6 fl (7.5-11.1); PLATELET COUNT 181 K/MM3 (134-434); RDW 17.1 % (11.6-15.6); WHITE BLOOD COUNT 5.1 K/mm3 (4.0-10.0)
[2016-09-09 08:45] LABS: CALCIUM 9.4 mg/dL (8.5-10.1); COCKROFT - GAULT 156.519; MAGNESIUM 1.7 mg/dL (1.8-2.4)
[2016-09-09] MEDS ORDERED: FUROSEMIDE 40 MG TABLET (FP) PO SCH (10:00)
[2016-09-09] MEDS ORDERED: ENOXAPARIN SQ SCH (10:00)
[2016-09-09] MEDS ORDERED: TIOTROPIUM BROMIDE 18 MCG/INH (DEVICE W/ 5 CAPSULES) IH SCH (10:00)
[2016-09-09] MEDS ORDERED: INSULIN (NOVOLOG) ASPART 100 UNITS/ML 10ML VIAL ONE (11:33)
[2016-09-09] MEDS: OMEGA-3 ACID ETHYL ESTERS (FATTY-ACIDS) 1 GM CAPSULE (FP) PO SCH ×3 (11:46→21:26)
[2016-09-09] MEDS: LORATADINE 10 MG TABLET PO SCH (11:47)
[2016-09-09] MEDS: RANITIDINE HCL 150 MG TABLET (FP) PO SCH ×2 (11:47→21:26)
[2016-09-09] MEDS: FERROUS SO4 325 MG TABLET (FP) PO SCH (11:47)
[2016-09-09] MEDS: POTASSIUM CHLORIDE ORAL LIQUID 20 MEQ/15 ML PO SCH (11:48)
[2016-09-09] MEDS: SPIRONOLACTONE 25 MG TABLET (FP) PO SCH (11:48)
[2016-09-09] MEDS: LOSARTAN POTASSIUM 50 MG TABLET (FP) PO SCH (11:48)
[2016-09-09] MEDS: ACLIDINIUM BROMIDE 400 MCG/INH AERO.POWD IH SCH ×2 (11:49→21:26)
--- NOTE | 2016-09-09 14:04 | EKG ---
Test Reason : Blood Pressure : / mmHG Vent. Rate : 077 BPM Atrial Rate : 357 BPM P-R Int : 000 ms QRS Dur : 080 ms QT Int : 378 ms P-R-T Axes : 000 021 -26 degrees QTc Int : 427 ms ATRIAL FIBRILLATION NONSPECIFIC T WAVE ABNORMALITY ABNORMAL ECG WHEN COMPARED WITH ECG OF 15-FEB-2015 17:58, T WAVE VARIATION Confirmed by DIANA MARQUEZ MD ([id number]) on 09/09/2016 2:03:44 PM Referred By: Confirmed By:DIANA MARQUEZ MD
[2016-09-09] MEDS ORDERED: MAGNESIUM OXIDE 400 MG TABLET (FP) PO ONE (14:19)
--- NOTE | 2016-09-09 14:21 | PN ---
Teaching Attending Note Name of Resident: Natasha Hodge ATTENDING PHYSICIAN STATEMENT I saw and evaluated the patient. I reviewed the resident's note and discussed the case with the resident. I agree with the resident's findings and plan as documented. SUBJECTIVE:continues to have SOB progressively worsening over the past week. saw PMD on Friday who did not prescribe anything. assoc with productive cough of yellow sputum, +orthopnea, subjective weight loss. denies CP, SOB, fever, chills, N/V/C/D. denies smoking coumadin was stopped due to vaginal bleeding but was re-started 3 days ago. claims compliance does not know dry weight OBJECTIVE: Last Vital Signs Temp Pulse Resp BP Pulse Ox 98 F 93 H 18 136/67 100 09/09/16 11:00 09/09/16 11:00 09/09/16 11:00 09/09/16 11:09/09/16 09:00 General NAD CV S1 S2 RRR no murmur/rub/gallop LUngs decreased breath sounds L mid lung field to base, crackles R base Abdomen soft NT/ND obese Extremities chronic venous changes, lymphedema ASSESSMENT AND PLAN: 61yo F with PMH HTN, afib on coumadin, hypothyroid, COPD and DM presented to the ER for dyspnea on exertion 1. L side pleural effusion- CT scan reviewed and high concern for malignancy with innumerable pulmonary nodules. +subjective weight loss, recent vaginal bleeding possible primary? echo performed this AM. plan for thoracentesis for pleural fluid analysis. cytology to be sent. will check CEA, Ca 19-9, CA 125. will obtain CT abdomen/pelvis with contrast tomorrow, hold today as received contrast yesterday. cont supplemental oxygen to maintain spO2 >90% pulmonary consulted 2. Afib on coumadin- recently re-started. INR subtherapeutic. will hold at this time for pending procedure. then re-start full dose lovenox and coumadin bridge cont diltiazem 3. Hypomagnesemia- mg 800mg 4. Morbid obesity- BMI 61. bariatric referral as outpatient 5. Hypothyroid- cont LT4 6. DM- controlled. hold oral agents. cont iss, bgm 7. DVT ppx- full dose lovenox after procedure. currently on hold
--- NOTE | 2016-09-09 15:08 | PN ---
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 PRIMARY ?GYNECOLOGIC,?COLON CHF AFIB HTN DM H/O ASTHMA HYPOTHYROID MORBID OBESITY PLAN THORACENTESIS CHECK CYTOLOGY PLEURAL FLUID NASAL O2 INHALED BRONCHODILATORS DR KATE Problem List - Problems (1) A-fib Code(s): I48.91 - UNSPECIFIED ATRIAL FIBRILLATION (2) Acute dyspnea Code(s): R06.00 - DYSPNEA, UNSPECIFIED (3) HTN (hypertension) Code(s): I10 - ESSENTIAL (PRIMARY) HYPERTENSION (4) Morbidly obese Code(s): E66.01 - MORBID (SEVERE) OBESITY DUE TO EXCESS CALORIES (5) Pleural effusion Code(s): J90 - PLEURAL EFFUSION, NOT ELSEWHERE CLASSIFIED (6) Hypothyroid Code(s): E03.9 - HYPOTHYROIDISM, UNSPECIFIED (7) Lymphedema Code(s): I89.0 - LYMPHEDEMA, NOT ELSEWHERE CLASSIFIED (8) Pulmonary nodules/lesions, multiple Code(s): R91.8 - OTHER NONSPECIFIC ABNORMAL FINDING OF LUNG FIELD
[2016-09-09 15:47] LABS: CHLORIDE PLEURAL FLUID 104
[2016-09-09 16:24] LABS: PLEURAL FLUID APPEARANCE BLOODY; PLEURAL FLUID COLOR RED; PLEURAL FLUID SOURCE LEFT PLEURAL
[2016-09-09] MEDS ORDERED: WARFARIN NA 5 MG TABLET (UD) PO SCH (18:00)
--- NOTE | 2016-09-09 18:19 | PN ---
Physical Exam: SUBJECTIVE: Patient seen and examined by me at bedside. Patient reports she continues to have shortness of breath that worsened this week associated with a productive cough with yellow sputum. She does report having weight loss because her pants are a lot looser. When asking if she saw her PCP she reports that she did but not much was done. She recently had vaginal bleeding and her PCP discontinued her coumadin but had restarted it three days ago. Otherwise, patient denies fever, chills, nausea, vomiting, abdominal pain, chest pain, palpitations. OBJECTIVE: Vital Signs Period Temp Pulse Resp BP Sys/Dinero Pulse Ox Last 24 Hr 97.4 F-98 F 68-97 18-20 130-137/67-80 97-100 GENERAL: The patient is awake, alert, and fully oriented, in no acute distress. LUNGS: Decreased breath sounds throughout lower lung field. HEART: Regular rate and rhythm, normal S1 and S2 without murmur, rub or gallop. ABDOMEN: Soft, Obese, nontender, nondistended, normoactive bowel sounds. EXTREMITIES: B/L lower extremity chronic venous changes with lymphedema and scaly dry skin. Laboratory Results - last 24 hr 09/08/16 09/09/16 09/09/16 22:49 06:08 06:47 WBC 5.1 RBC 5.12 Hgb 12.7 Hct 39.6 MCV 77.3 L MCHC 32.2 RDW 17.1 H Plt Count 181 MPV 10.6 Sodium Potassium Chloride Carbon Dioxide Anion Gap BUN Creatinine POC Glucometer [id number] 125 Random Glucose Calcium Magnesium Pleural Fluid Source Pleural Color Pleural Appearance Pleural WBC Pleural RBC Pleural Chloride Pleural Total Protein Pleural Albumin Pleural LDH Pleural Glucose Pleural Amylase Pleural Cholesterol Pleural Triglycerides 09/09/16 09/09/16 09/09/16 06:47 12:00 13:30 WBC RBC Hgb Hct MCV MCHC RDW Plt Count MPV Sodium 141 Potassium 3.9 Chloride 100 Carbon Dioxide 27 Anion Gap 14 BUN 12 Creatinine 1.0 POC Glucometer 181 Random Glucose 122 H Calcium 9.4 Magnesium 1.7 L Pleural Fluid Source Left pleural Pleural Color Red Pleural Appearance Bloody Pleural WBC 1343 Pleural RBC 225501 Pleural Chloride 104 Pleural Total Protein 4.950 Pleural Albumin 3 Pleural LDH 579 Pleural Glucose 184.320 Pleural Amylase 45.364 Pleural Cholesterol 61 Pleural Triglycerides 57 09/09/16 17:38 WBC RBC Hgb Hct MCV MCHC RDW Plt Count MPV Sodium Potassium Chloride Carbon Dioxide Anion Gap BUN Creatinine POC Glucometer 157 Random Glucose Calcium Magnesium Pleural Fluid Source Pleural Color Pleural Appearance Pleural WBC Pleural RBC Pleural Chloride Pleural Total Protein Pleural Albumin Pleural LDH Pleural Glucose Pleural Amylase Pleural Cholesterol Pleural Triglycerides Active Medications Generic Name Dose Route Start Last Admin Trade Name Freq PRN Reason Stop Dose Admin Aclidinium [place] 1 puff 09/09/16 10:00 09/09/16 11:49 Tudorza - IH 1 puff BID VIRGILIO Administration Albuterol Sulfate 1 amp 09/08/16 21:38 Ventolin 0.083% Nebulizer Soln - NEB Q4H PRN SHORT OF BREATH/WHEEZING Atorvastatin Calcium 20 mg 09/09/16 22:00 Lipitor - PO HS VIRGILIO Diltiazem HCl 300 mg 09/09/16 10:00 09/09/16 11:47 Cardizem Cd - PO 300 mg DAILY VIRGILIO Administration Ferrous Sulfate 325 mg 09/09/16 10:00 09/09/16 11:47 Feosol - PO 325 mg DAILY VIRGILIO Administration Insulin Aspart 1 vial 09/09/16 14:21 09/09/16 17:40 Novolog Vial Sliding Scale - SQ Not Given ACHS VIRGILIO Protocol Levothyroxine Sodium 75 mcg 09/09/16 07:00 09/09/16 06:31 Synthroid - PO 75 mcg DAILY@0700 VIRGILIO Administration Loratadine 10 mg 09/09/16 10:00 09/09/16 11:47 Claritin - PO 10 mg DAILY VIRGILIO Administration Losartan Potassium 50 mg 09/09/16 10:00 09/09/16 11:48 Cozaar - PO 50 mg DAILY VIRGILIO Administration Montelukast Sodium 10 mg 09/09/16 22:00 Singulair - PO HS VIRGILIO Ptnah-5-Ypeh Ethyl Esters 1 gm 09/09/16 06:00 09/09/16 16:17 Lovaza - PO 1 gm TID VIRGILIO Administration Potassium Chloride 10 meq 09/09/16 10:00 09/09/16 11:48 Potassium Chloride Oral Liquid PO 10 meq DAILY VIRGILIO Administration Ranitidine HCl 150 mg 09/09/16 10:00 09/09/16 11:47 Zantac - PO 150 mg BID VIRGILIO Administration Senna 1 tab 09/08/16 22:45 Senna - PO DAILY PRN Spironolactone 50 mg 09/09/16 10:00 09/09/16 11:48 Aldactone - PO 50 mg DAILY VIRGILIO Administration Images: Chest X-ray (09/08/16): Moderate left pleural effusion with compressive atelectasis. Multiple lung nodules - lung metastasis. Chest CT w/ Contrast (09/08/16): Innumerable bilateral pulmonary nodules, moderate to large left pleural effusion, and mediastinal and hilar lymphadenopathy are highly suspicious for metastatic disease. 2.9 cm hypodense mass is seen in the left lobe of the liver. Thoracocentesis under U/S guide (09/09/16) Chest X-ray (09/09/16): Decreased Pleural Effusion. No Pneumothorax seen. ASSESSMENT/PLAN: Patient is a 61 year old female with PMHx of HTN, A.fib on Coumadin, DMII, CHF, COPD, GERD and hypothyroidism who presented for dyspnea and was found to have a large left pleural effusion with multiple nodules on chest x-ray. Patient admitted for further monitoring and management. Dyspnea Likely Secondary to Left Sided Pleural Effusion with B/L Pulmonary Nodules -CT and CXR revealed multiple nodules and pleural effusion -Reports weight loss and vaginal bleeding. Possibly a primary source from ovarian ca? -Likely secondary to malignancy -Paracentesis done and showed bloody pleural effusions likely malignant. Cytology sent and pending -Tumor workup done for CEA, Ca 19-9, and CA 125 -CT abdo/pelvis with contrast tomorrow -Continue O2 PRN -Pulmonology consult placed Asthma/COPD -No history of smoking -Continue with Spiriva -Continue Tudorza -Continue with Albuterol PRN -Pulmonology consult appreciated Hypomagnesemia -Magnesium oxide 800mg PO -Will continue to monitor Atrial Fibrillation -Subtherapeutic INR -On coumadin 5mg at home. On hold due to procedure done. Will restart Lovenox tomorrow and coumadin bridge -Continue Diltiazem Cd 300mg daily -Continue to monitor PT Systolic CHF- Chronic -BNP 441 -Strict I&O's -Daily weight -Given Lasix 40mg IV daily -Continue Spironolactone 50mg daily -ECHO ordered DMII -BGM ACHS -Novolog sliding scale HTN Continue Losartan 50mg daily -Continue to monitor BP HLD -Continue Lipitor 20mg Hypothyroidism -Continue Levothyroxine 75mcg daily GERD -Continue Ranitidine 150mg BID Morbid Obesity -Bariatric referral as outpatient F/E/N -On no fluids -Hypomagnesemia: Mag oxide 800mg PO given -Diabetic diet Prophylaxis -Will Hold lovenox and Coumadin due to bloody thoracocentesis. SCD's for now Disposition -CT abdo and pelvis to rule out malignancy. Awaiting cytology from thoracocentesis. Visit type - Emergency Visit Emergency Visit: Yes ED Registration Date: 09/08/16 Care time: The patient presented to the Emergency Department on the above date and was hospitalized for further evaluation of their emergent condition. - New Patient This patient is new to me today: Yes Date on this admission: 09/09/16 - Critical Care Critical Care patient: No
[2016-09-09 18:37] LABS: PLEURAL FLUID NEUTROPHIL 1 %
[2016-09-09 18:38] LABS: PLEURAL FLUID LYMPHOCYTES 10 %; PLEURAL FLUID MACROPHAGES 58 %
[2016-09-09] MEDS: ATORVASTATIN CA 20 MG TABLET (FP) PO SCH (21:26)
[2016-09-09] MEDS: MONTELUKAST NA 10 MG TABLET PO SCH (21:26)
[2016-09-09] MEDS ORDERED: SODIUM CHLORIDE 500 ML IV STA (21:39)
--- NOTE | 2016-09-10 02:00 | CONS ---
DATE OF CONSULTATION: 09/09/2016 REFERRING PHYSICIAN: Lilli Spencer MD The patient is a 61-year-old white female with a past medical history of hypertension, atrial fibrillation, diabetes, congestive heart failure, COPD/ asthma, GERD, hypothyroidism, nonsmoker, admitted to [facility] complaining of 1-week history of increasing shortness of breath and dyspnea on exertion. Patient states she was doing okay until approximately a week prior to admission; started developing increasing shortness of breath and dyspnea on exertion. Last Friday, she developed increasing shortness of breath with minimal exertion also when she was laying flat. Finally, she presented to the emergency room yesterday with the above complaints. In the emergency room, she was noted to have a large left pleural effusion. She was admitted for further evaluation. She underwent a CT scan of the chest earlier which revealed extensive bilateral pulmonary metastases, pulmonary nodules, a large left pleural effusion and a 2-cm liver mass. Patient has been having vaginal bleeding for the past month. Apparently, she had been evaluated, had transvaginal ultrasound on September 05 which revealed evidence of artifact versus mass. There was a fibroid on the posterior lip of the uterine cervix approximately 2.6 x 2.1 cm. She was also noted to have a large uterus with heterogenous echotexture. Patient denies any change in bowel. She states she has never had a colonoscopy. She is a nonsmoker. There is no history of occupational exposure to chemicals or fumes. She states normally, she is able to ambulate without any significant respiratory issues. PAST MEDICAL HISTORY: Again includes congestive heart failure, hypertension, atrial fibrillation, morbid obesity, asthma/COPD, atrial fibrillation, hypothyroidism, GERD. REVIEW OF SYSTEMS: Positive orthopnea, positive cough, clear sputum, no hemoptysis, no chest pain, no palpitations, positive dyspnea with minimal exertion, positive weight loss. No fevers, no chills, no night sweats, no abdominal pain. Positive lower extremity edema. CURRENT MEDICATIONS: Include Cozaar, Lovaza, Tudorza, albuterol, Cardizem, senna, Zantac, Lipitor, NovoLog, Feosol, Singulair, Aldactone, KCl, Claritin and Synthroid. PHYSICAL EXAMINATION: General: The patient is a morbidly obese white female, well developed, well nourished awake, alert, sitting out of bed in chair, in no acute respiratory distress. Vital signs: She is currently afebrile. Blood pressure is 136/67, respiratory rate is 18, O2 saturation is 100% on 2 L, and heart rate is 88 and irregular. HEENT: Exam is normocephalic, atraumatic. Neck: Supple. Heart: Irregularly irregular. Normal S1, S2. Chest: Diminished breath sounds to the left base. Abdomen: Soft. Bowel sounds are positive. Extremities: Bilateral lower extremity edema. LABORATORIES: BUN is 12, creatinine 1.0. BNP is 441. WBC 5.1, hemoglobin 12.7 , hematocrit 39.6 with a platelet count of 181,000. INR is 1.33. Chemistries: BUN 12, creatinine 1.0. Pleural fluid chemistries are pending. Chest CT: Again with numerous bilateral pulmonary nodules, moderate to large left pleural effusion, mediastinal hilar adenopathy consistent with metastatic disease. There is a 2.9-cm hypodense mass in the left lobe of the liver. IMPRESSION: Dyspnea, most likely secondary to multiple factors: 1. Large left pleural effusion, likely malignant. 2. Extensive bilateral pulmonary nodules consistent with metastatic disease, primary to be determined, possibly gynecologic in view of vaginal bleeding,?colon. 3. Congestive heart failure. 4. Atrial fibrillation. 5. Hypertension. 6. History of asthma. 7. Morbid obesity. PLAN: Diagnostic therapeutic thoracentesis. Check pleural fluid chemistries as well as cytology. If cytology unremarkable, will require tissue diagnosis. Continue nasal O2. Additional diagnosis with CT-guided aspiration lung nodule. Inhaled bronchodilators. Strict intake and output. Further recommendations pending results of the thoracentesis and results of pleural fluid chemistries and cytology. MARIBELL KATE M.D. [id number] MTDD
[2016-09-10] MEDS: LEVOTHYROXINE NA 75 MCG TABLET (FP) PO SCH (06:03)
[2016-09-10] MEDS: OMEGA-3 ACID ETHYL ESTERS (FATTY-ACIDS) 1 GM CAPSULE (FP) PO SCH ×3 (06:03→22:01)
[2016-09-10] MEDS: INSULIN SLIDING SCALE (NOVOLOG) 1 VIAL SQ SCH ×4 (06:04→22:04)
--- NOTE | 2016-09-10 06:35 | HOSP ---
Subjective - Review of Symptoms Events since last encounter: mydriasis, dry mouth, dizziness, slight hypotension Subjective: patient complaining of lightheadedness and blurry vision. Found to have b/l mydriasis, BP 88 systolic. No h/a, chest pain or sob, ronchi in lungs, diffuse LE edema, neuro exam normal, PERRLA EOMI, craneal nerves intact, sensation intact strenght 5/5 bl upper and lower extremities General: Yes: Other (dizzy, blurred vision ). No: Chills, Fatigue HEENT: No: Head Aches Pulmonary: No: Dyspnea, Cough, Pleuritic Chest Pain Cardiovascular: No: Chest Pain, Palpitations, Orthopnea, Paroxysmal Noc. Dyspnea Gastrointestinal: No: Nausea, Vomiting, Abdominal Pain Genitourinary: No: Dysuria Musculoskeletal: Yes: No Symptoms Neurological: No: Weakness, Numbness, Incoordination, Change in speech, Confusion, Seizures Physical Examination Vital Signs: Vital Signs Temperature 98.5 F 09/10/16 00:00 Pulse Rate 76 09/10/16 00:00 Respiratory Rate 18 09/10/16 00:00 Blood Pressure 91/52 09/10/16 00:00 O2 Sat by Pulse Oximetry (%) 96 09/09/16 22:00 Constitutional: Yes: No Distress, Calm Eyes: Yes: Conjunctiva Clear, EOM Intact, PERRL, Other (blurred vision). No: Diplopia, Ptosis HENT: Yes: Atraumatic, Normocephalic Neck: Yes: Supple Cardiovascular: Yes: Regular Rate and Rhythm, S1, S2. No: JVD Respiratory: Yes: Regular, Rhonchi Gastrointestinal: Yes: Normal Bowel Sounds, Soft. No: Tenderness Musculoskeletal: No: Back Pain, Joint Stiffness, Muscle Weakness Edema: LLE: 3+, RLE: 3+ Peripheral Pulses: Left Radial: 2+, Right Radial: 2+ Neurological: Yes: Alert, Oriented, Cran Nerves II-XII Intact. No: Dysarthria, Facial Droop, Lethargy, Loss of Sensation, Numbness, Paresthesia, Seizure, Tingling, Tremors, Weakness Psychiatric: Yes: Alert, Oriented Labs: CBC, BMP 09/09/16 06:47 09/09/16 06:47 Hospitalist Encounter Assessment: Patient is a 61 year old female with PMHx of HTN, A.fib on Coumadin, DMII, CHF, COPD, GERD and hypothyroidism who presented for dyspnea and was found to have a large left pleural effusion with multiple nodules on chest x-ray suspicious for malignancy, s/p pleurocentesis yesterday Anticholinergic syndrome -b/l mydriasis, perrla, eomi, dry mouth, hypotension 89 normal neuro exam; unlikely [employer] COMM[employer] MA[employer]GER lesion -likely due to tudorza, which is long acting anticholinergic and new to patient ; will hold -gave 500 cc bolus BP improved to low 90's, will not give more fluid due to pleural effusions -expect symptoms to improve with time, if not, consider CT head -not a candidate for atropine Visit type - Emergency Visit Emergency Visit: Yes ED Registration Date: 09/08/16 Care time: The patient presented to the Emergency Department on the above date and was hospitalized for further evaluation of their emergent condition. - New Patient This patient is new to me today: Yes Date on this admission: 09/10/16 - Critical Care Critical Care patient: No
--- NOTE | 2016-09-10 07:35 | PN ---
Physical Exam: SUBJECTIVE: Patient seen and examined by me at bedside. Overnight events noted. Patient reports she had blurry vision last night and she was found to have bilateral mydriasis with dry mouth and hypotension. She was given half a bolus of fluids and Tudorza was discontinued. Patient's symptoms resolved. Right now patient reports her blurry vision is better but is still experiencing it. Otherwise, patient denies fever, chills, nausea, vomiting, chest pain, palpitations, abdominal pain. OBJECTIVE: Vital Signs Period Temp Pulse Resp BP Sys/Dinero Pulse Ox Last 24 Hr 97.6 F-98.5 F 76-97 18-20 90-138/49-82 96-100 GENERAL: The patient is awake, alert, and fully oriented, in no acute distress. LUNGS: Decreased breath sounds throughout lower left lung field. HEART: Regular rate and rhythm, normal S1 and S2 without murmur, rub or gallop. ABDOMEN: Soft, Obese, nontender, nondistended, normoactive bowel sounds. EXTREMITIES: B/L lower extremity chronic venous changes with lymphedema and scaly dry skin. Laboratory Results - last 24 hr 09/09/16 09/09/16 09/09/16 06:47 06:47 12:00 WBC 5.1 RBC 5.12 Hgb 12.7 Hct 39.6 MCV 77.3 L MCHC 32.2 RDW 17.1 H Plt Count 181 MPV 10.6 Sodium 141 Potassium 3.9 Chloride 100 Carbon Dioxide 27 Anion Gap 14 BUN 12 Creatinine 1.0 POC Glucometer 181 Random Glucose 122 H Calcium 9.4 Magnesium 1.7 L Pleural Fluid Source Pleural Color Pleural Appearance Pleural WBC Pleural RBC Pleural Neutrophils Pleural Lymphocytes Pleural Monocytes Pleural Eosinophils Pleural Macrophages Pleural Mesothelial Pleural Chloride Pleural Total Protein Pleural Albumin Pleural LDH Pleural Glucose Pleural Amylase Pleural Cholesterol Pleural Triglycerides 09/09/16 09/09/16 09/09/16 13:30 17:38 19:32 WBC RBC Hgb Hct MCV MCHC RDW Plt Count MPV Sodium Potassium Chloride Carbon Dioxide Anion Gap BUN Creatinine POC Glucometer 157 213 Random Glucose Calcium Magnesium Pleural Fluid Source Left pleural Pleural Color Red Pleural Appearance Bloody Pleural WBC 1343 Pleural RBC 284813 Pleural Neutrophils 1 Pleural Lymphocytes 10 Pleural Monocytes 1 Pleural Eosinophils 1 Pleural Macrophages 58 Pleural Mesothelial 29 Pleural Chloride 104 Pleural Total Protein 4.950 Pleural Albumin 3 Pleural LDH 579 Pleural Glucose 184.320 Pleural Amylase 45.364 Pleural Cholesterol 61 Pleural Triglycerides 57 09/09/16 09/10/16 21:26 05:51 WBC RBC Hgb Hct MCV MCHC RDW Plt Count MPV Sodium Potassium Chloride Carbon Dioxide Anion Gap BUN Creatinine POC Glucometer 169 140 Random Glucose Calcium Magnesium Pleural Fluid Source Pleural Color Pleural Appearance Pleural WBC Pleural RBC Pleural Neutrophils Pleural Lymphocytes Pleural Monocytes Pleural Eosinophils Pleural Macrophages Pleural Mesothelial Pleural Chloride Pleural Total Protein Pleural Albumin Pleural LDH Pleural Glucose Pleural Amylase Pleural Cholesterol Pleural Triglycerides Active Medications Generic Name Dose Route Start Last Admin Trade Name Freq PRN Reason Stop Dose Admin Aclidinium [place] 1 puff 09/09/16 10:00 09/09/16 21:26 Tudorza - IH 1 puff BID VIRGILIO Administration Albuterol Sulfate 1 amp 09/08/16 21:38 Ventolin 0.083% Nebulizer Soln - NEB Q4H PRN SHORT OF BREATH/WHEEZING Atorvastatin Calcium 20 mg 09/09/16 22:00 09/09/16 21:26 Lipitor - PO 20 mg HS VIRGILIO Administration Diltiazem HCl 300 mg 09/09/16 10:00 09/09/16 11:47 Cardizem Cd - PO 300 mg DAILY VIRGILIO Administration Ferrous Sulfate 325 mg 09/09/16 10:00 09/09/16 11:47 Feosol - PO 325 mg DAILY VIRGILIO Administration Insulin Aspart 1 vial 09/09/16 14:21 09/10/16 06:04 Novolog Vial Sliding Scale - SQ Not Given ACHS VIRGILIO Protocol Levothyroxine Sodium 75 mcg 09/09/16 07:00 09/10/16 06:03 Synthroid - PO 75 mcg DAILY@0700 VIRGILIO Administration Loratadine 10 mg 09/09/16 10:00 09/09/16 11:47 Claritin - PO 10 mg DAILY VIRGILIO Administration Losartan Potassium 50 mg 09/09/16 10:00 09/09/16 11:48 Cozaar - PO 50 mg DAILY VIRGILIO Administration Montelukast Sodium 10 mg 09/09/16 22:00 09/09/16 21:26 Singulair - PO 10 mg HS VIRGILIO Administration [id number] Ethyl Esters 1 gm 09/09/16 06:00 09/10/16 06:03 Lovaza - PO 1 gm TID VIRGILIO Administration Potassium Chloride 10 meq 09/09/16 10:00 09/09/16 11:48 Potassium Chloride Oral Liquid PO 10 meq DAILY VIRGILIO Administration Ranitidine HCl 150 mg 09/09/16 10:00 09/09/16 21:26 Zantac - PO 150 mg BID VIRGILIO Administration Senna 1 tab 09/08/16 22:45 Senna - PO DAILY PRN Spironolactone 50 mg 09/09/16 10:00 09/09/16 11:48 Aldactone - PO 50 mg DAILY VIRGILIO Administration Images: Chest X-ray (09/08/16): Moderate left pleural effusion with compressive atelectasis. Multiple lung nodules - lung metastasis. Chest CT w/ Contrast (09/08/16): Innumerable bilateral pulmonary nodules, moderate to large left pleural effusion, and mediastinal and hilar lymphadenopathy are highly suspicious for metastatic disease. 2.9 cm hypodense mass is seen in the left lobe of the liver. Thoracocentesis under U/S guide (09/09/16) Chest X-ray (09/09/16): Decreased Pleural Effusion. No Pneumothorax seen. CT Abdomen and pelvis (09/10/16): CT abd/pelvis shows multiple metastatic pulmonary nodules, moderate left pleural effusion, hypodense left hepatic lobe mass, possible hypodense right hepatic lobe mass, diverticulosis ASSESSMENT/PLAN: Patient is a 61 year old female with PMHx of HTN, A.fib on Coumadin, DMII, CHF, COPD, GERD and hypothyroidism who presented for dyspnea and was found to have a large left pleural effusion with multiple nodules on chest x-ray. Patient admitted for further monitoring and management. Dyspnea Likely Secondary to Left Sided Pleural Effusion with B/L Pulmonary Nodules -Likely secondary to malignancy -CT and CXR revealed multiple nodules and pleural effusion -Reports weight loss and vaginal bleeding. Possibly a primary source from ovarian ca? -Thoracocentesis done and showed bloody pleural effusions likely malignant. Cytology sent and pending -CEA, Ca 19-9, and CA 125 pending -CT abdo/pelvis today -Continue O2 PRN -Pulmonology consult placed Anticholinergic Syndrome? -Overnight event of b/l mydriasis, dry mouth and hypotension -CT ordered to rule out stroke -Tudorza discontinued -Will continue to monitor Asthma/COPD -No history of smoking -Continue with Spiriva -Continue with Albuterol PRN -Tudorza discontinued due to Anticholinergic syndrome -Pulmonology consult appreciated Hypomagnesemia-resolved -Will continue to monitor Atrial Fibrillation -Subtherapeutic INR -On coumadin 5mg at home. Due to bloody thoracocentesis willl hold AC -Continue Diltiazem Cd 300mg daily -Continue to monitor PT Systolic CHF- Chronic -BNP 441 -Strict I&O's -Daily weight -Give Lasix 40mg IV daily -Hold Spironolactone due to hypotension -ECHO done and no global hypokinesis DMII -BGM ACHS -Novolog sliding scale HTN -Hypotensive -Hold Losartan 50mg daily -Hold Lasix -Hold Aldactone -Continue to monitor BP HLD -Continue Lipitor 20mg Hypothyroidism -Continue Levothyroxine 75mcg daily GERD -Continue Ranitidine 150mg BID Morbid Obesity -Bariatric referral as outpatient F/E/N -On no fluids -Electrolytes wnl -Diabetic diet Prophylaxis -Will Hold lovenox and Coumadin due to bloody thoracocentesis. SCD's for now Disposition -Awaiting cytology from thoracocentesis and tumor markers Visit type - Emergency Visit Emergency Visit: Yes ED Registration Date: 09/08/16 Care time: The patient presented to the Emergency Department on the above date and was hospitalized for further evaluation of their emergent condition. - New Patient This patient is new to me today: Yes Date on this admission: 09/10/16 - Critical Care Critical Care patient: No
[2016-09-10 08:21] LABS: MCH 24.6 pg (25.7-33.7); MCHC 31.6 g/dl (32.0-36.0); MEAN CELL VOLUME 77.8 fl (80-96); MEAN PLT VOLUME 10.1 fl (7.5-11.1); PLATELET COUNT 221 K/MM3 (134-434); WHITE BLOOD COUNT 5.9 K/mm3 (4.0-10.0)
[2016-09-10 08:50] LABS: INR 1.29 (0.82-1.09); PROTHROMBIN TIME (PATIENT) 14.3 SEC (9.98-11.88)
[2016-09-10 08:53] LABS: ALBUMIN 2.9 g/dl (3.4-5.0); BILIRUBIN,TOTAL 0.7 mg/dL (0.2-1.0); CALCIUM 9.1 mg/dL (8.5-10.1); COCKROFT - GAULT 130.5855; CREATININE 1.2 mg/dL (0.55-1.02); MAGNESIUM 1.9 mg/dL (1.8-2.4); TOT PROT 6.9 g/dl (6.4-8.2)
[2016-09-10] MEDS ORDERED: PT OWN MED DRAWER 7, Y5N ONE (10:48)
[2016-09-10] MEDS: SPIRONOLACTONE 25 MG TABLET (FP) PO SCH (10:49)
[2016-09-10] MEDS: RANITIDINE HCL 150 MG TABLET (FP) PO SCH ×2 (10:50→22:01)
[2016-09-10] MEDS: LOSARTAN POTASSIUM 50 MG TABLET (FP) PO SCH (10:50)
[2016-09-10] MEDS: FERROUS SO4 325 MG TABLET (FP) PO SCH (10:50)
[2016-09-10] MEDS: LORATADINE 10 MG TABLET PO SCH (10:51)
[2016-09-10] MEDS: POTASSIUM CHLORIDE ORAL LIQUID 20 MEQ/15 ML PO SCH (10:52)
--- NOTE | 2016-09-10 11:26 | PN ---
Progress Note (short form) - Note Progress Note: PULMONARY s/p thoracentesis removing about 1.5L per patient. Initial fluid analysis consistent with exudate. States breathing improved after thoracentesis. Last Vital Signs Temp Pulse Resp BP Pulse Ox 97.9 F 76 18 102/56 96 09/10/16 06:00 09/10/16 06:00 09/10/16 06:00 09/10/16 06:00 09/09/16 22:00 Gen: NAD in chair Heart: RRR Lung: decreased breath sounds at the bases Abd: soft, nontender Ext: + edema CBC, BMP 09/10/16 06:30 09/10/16 06:30 Active Medications Aclidinium [place] (Tudorza -) 1 puff IH BID [facility] Last Admin: 09/09/16 21:26 Dose: 1 puff Albuterol Sulfate (Ventolin 0.083% Nebulizer Soln -) 1 amp NEB Q4H PRN PRN Reason: SHORT OF BREATH/WHEEZING Atorvastatin Calcium (Lipitor -) [address] [facility] Last Admin: 09/09/16 21:26 Dose: 20 mg Diltiazem HCl (Cardizem Cd -) 300 mg PO DAILY [facility] Last Admin: 09/10/16 10:52 Dose: 300 mg Ferrous Sulfate (Feosol -) 325 mg PO DAILY [facility] Last Admin: 09/10/16 10:50 Dose: 325 mg Insulin Aspart (Novolog Vial Sliding Scale -) 1 vial SQ ACHS [facility] PRN Reason: Protocol Last Admin: 09/10/16 06:04 Dose: Not Given Levothyroxine Sodium (Synthroid -) 75 mcg PO DAILY@0700 [facility] Last Admin: 09/10/16 06:03 Dose: 75 mcg Loratadine (Claritin -) 10 mg PO DAILY [facility] Last Admin: 09/10/16 10:51 Dose: 10 mg Losartan Potassium (Cozaar -) 50 mg PO DAILY [facility] Last Admin: 09/10/16 10:50 Dose: 50 mg Montelukast Sodium (Singulair -) 10 mg PO HS [facility] Last Admin: 09/09/16 21:26 Dose: 10 mg Eicyu-7-Ayzw Ethyl Esters (Lovaza -) 1 gm PO TID [facility] Last Admin: 09/10/16 06:03 Dose: 1 gm Potassium Chloride (Potassium Chloride Oral Liquid) 10 meq PO DAILY [facility] Last Admin: 09/10/16 10:52 Dose: 10 meq Ranitidine HCl (Zantac -) 150 mg PO BID [facility] Last Admin: 09/10/16 10:50 Dose: 150 mg Senna (Senna -) 1 tab PO DAILY PRN Spironolactone (Aldactone -) 50 mg PO DAILY [facility] Last Admin: 09/10/16 10:49 Dose: 50 mg A/P Left Exudative Pleural Effusion Bilateral Lung Nodules likely metastatic disease Atrial Fibrillation CHF HTN DM Morbid Obesity - f/u pleural fluid cultures and cytology - f/u CT A/P to investigate primary malignancy - rate controlled - O2 as needed - DVT prophylaxis
--- NOTE | 2016-09-10 16:34 | PN ---
Teaching Attending Note Name of Resident: Natasha Hodge ATTENDING PHYSICIAN STATEMENT I saw and evaluated the patient. I reviewed the resident's note and discussed the case with the resident. I agree with the resident's findings and plan as documented. SUBJECTIVE: Patient feels less short of breath since thoracentesis. OBJECTIVE: Vital Signs Period Temp Pulse Resp BP Sys/Dinero Pulse Ox Last 24 Hr 97.7 F-98.5 F 76-83 18-20 90-138/49-82 96-96 HEART: Irregularly irregular LUNGS: Clear with decreased breath sounds half way up on left ABDOMEN: Obese, soft, non-tender, non-distended, normal BS EXTREMITIES: Lymphedema with venous stasis changes ASSESSMENT AND PLAN: This is a 61-year-old woman with a history of HTN, atrial fib, hypothyroidism, COPD, type 2 DM and morbid obesity who presented to the ER for dyspnea on exertion. 1. Bilateral lung nodules with exudative left pleural effusion - s/p thoracentesis 09/09 - cytology pending - CT abd/pelvis shows multiple metastatic pulmonary nodules, moderate left pleural effusion, hypodense left hepatic lobe mass, possible hypodense right hepatic lobe mass, diverticulosis - CEA, CA 19-9, CA 125 pending 2. Permanent atrial fibrillation - Continue Cardizem for rate control - Continue Coumadin 3. Hypomagnesemia - Improved 4. Morbid obesity with BMI 61.6 5. Hypothyroidism - Continue Synthroid 6. Type 2 DM - Continue Novolog sliding scale 7. HTN - Continue Cardizem - Hold Cozaar, Aldactone secondary to low BP and increasing creatinine
[2016-09-10] MEDS: ATORVASTATIN CA 20 MG TABLET (FP) PO SCH (22:01)
[2016-09-10] MEDS: MONTELUKAST NA 10 MG TABLET PO SCH (22:01)
[2016-09-11] MEDS: OMEGA-3 ACID ETHYL ESTERS (FATTY-ACIDS) 1 GM CAPSULE (FP) PO SCH ×3 (05:47→22:01)
[2016-09-11] MEDS: INSULIN SLIDING SCALE (NOVOLOG) 1 VIAL SQ SCH ×4 (06:04→22:01)
[2016-09-11] MEDS: LEVOTHYROXINE NA 75 MCG TABLET (FP) PO SCH (06:05)
[2016-09-11 09:19] LABS: CALCIUM 9.3 mg/dL (8.5-10.1); COCKROFT - GAULT 66.147; CREATININE 1.1 mg/dL (0.55-1.02); MAGNESIUM 1.9 mg/dL (1.8-2.4)
[2016-09-11] MEDS: RANITIDINE HCL 150 MG TABLET (FP) PO SCH ×2 (09:33→22:01)
[2016-09-11] MEDS: FERROUS SO4 325 MG TABLET (FP) PO SCH (09:33)
[2016-09-11] MEDS: POTASSIUM CHLORIDE ORAL LIQUID 20 MEQ/15 ML PO SCH (09:33)
[2016-09-11] MEDS: LORATADINE 10 MG TABLET PO SCH (09:33)
[2016-09-11] MEDS ORDERED: PT OWN MED DRAWER 7, Y5N ONE (11:39)
[2016-09-11] MEDS ORDERED: INSULIN (NOVOLOG) ASPART 100 UNITS/ML 10ML VIAL ONE (11:39)
--- NOTE | 2016-09-11 14:19 | PN ---
Physical Exam: SUBJECTIVE: Patient seen and examined by me at bedside. No overnight events noted. Patient reports breathing is better but remains anxious. Otherwise, patient denies fever, chills, nausea, vomiting, chest pain, palpitations, abdominal pain. OBJECTIVE: Vital Signs Period Temp Pulse Resp BP Sys/Dinero Pulse Ox Last 24 Hr 97.5 F-98.3 F 75-95 18-20 106-161/48-81 95 GENERAL: The patient is awake, alert, and fully oriented, in no acute distress. LUNGS: Decreased breath sounds throughout lower left lung field. HEART: Regular rate and rhythm, normal S1 and S2 without murmur, rub or gallop. ABDOMEN: Soft, Obese, nontender, nondistended, normoactive bowel sounds. EXTREMITIES: B/L lower extremity chronic venous changes with lymphedema and scaly dry skin. Laboratory Results - last 24 hr 09/10/16 09/10/16 09/10/16 06:30 17:39 22:02 Sodium Potassium Chloride Carbon Dioxide Anion Gap BUN Creatinine POC Glucometer 151 165 Random Glucose Calcium Magnesium Carcinoembryonic Ag 3.3 CA 19-9 Antigen 25 CA 125 Antigen 153.0 H 09/11/16 09/11/16 09/11/16 05:46 06:18 06:18 Sodium 135 L Potassium 3.9 Chloride 98 Carbon Dioxide 24 Anion Gap 13 BUN 16 Creatinine 1.1 H POC Glucometer 183 Random Glucose 192 H D Calcium 9.3 Magnesium 1.9 Cancelled Carcinoembryonic Ag CA 19-9 Antigen CA 125 Antigen 09/11/16 11:24 Sodium Potassium Chloride Carbon Dioxide Anion Gap BUN Creatinine POC Glucometer 218 Random Glucose Calcium Magnesium Carcinoembryonic Ag CA 19-9 Antigen CA 125 Antigen Active Medications Generic Name Dose Route Start Last Admin Trade Name Freq PRN Reason Stop Dose Admin Aclidinium [place] 1 puff 09/09/16 10:00 09/09/16 21:26 Tudorza - IH 1 puff BID VIRGILIO Administration Albuterol Sulfate 1 amp 09/08/16 21:38 Ventolin 0.083% Nebulizer Soln - NEB Q4H PRN SHORT OF BREATH/WHEEZING Atorvastatin Calcium 20 mg 09/09/16 22:00 09/10/16 22:01 Lipitor - PO 20 mg HS VIRGILIO Administration Diltiazem HCl 300 mg 09/09/16 10:00 09/11/16 09:33 Cardizem Cd - PO 300 mg DAILY VIRGILIO Administration Ferrous Sulfate 325 mg 09/09/16 10:00 09/11/16 09:33 Feosol - PO 325 mg DAILY VIRGILIO Administration Insulin Aspart 1 vial 09/09/16 14:21 09/11/16 11:34 Novolog Vial Sliding Scale - SQ 2 units ACHS VIRGILIO Administration Protocol Levothyroxine Sodium 75 mcg 09/09/16 07:00 09/11/16 06:05 Synthroid - PO 75 mcg DAILY@0700 VIRGILIO Administration Loratadine 10 mg 09/09/16 10:00 09/11/16 09:33 Claritin - PO 10 mg DAILY VIRGILIO Administration Montelukast Sodium 10 mg 09/09/16 22:00 09/10/16 22:01 Singulair - PO 10 mg HS VIRGILIO Administration [id number]-[id number] Ethyl Esters 1 gm 09/09/16 06:00 09/11/16 13:20 Lovaza - PO 1 gm TID VIRGILIO Administration Potassium Chloride 10 meq 09/09/16 10:00 09/11/16 09:33 Potassium Chloride Oral Liquid PO 10 meq DAILY VIRGILIO Administration Ranitidine HCl 150 mg 09/09/16 10:00 09/11/16 09:33 Zantac - PO 150 mg BID VIRGILIO Administration Senna 1 tab 09/08/16 22:45 Senna - PO DAILY PRN Images: Chest X-ray (09/08/16): Moderate left pleural effusion with compressive atelectasis. Multiple lung nodules - lung metastasis. Chest CT w/ Contrast (09/08/16): Innumerable bilateral pulmonary nodules, moderate to large left pleural effusion, and mediastinal and hilar lymphadenopathy are highly suspicious for metastatic disease. 2.9 cm hypodense mass is seen in the left lobe of the liver. Thoracocentesis under U/S guide (09/09/16) Chest X-ray (09/09/16): Decreased Pleural Effusion. No Pneumothorax seen. CT Abdomen and pelvis (09/10/16): CT abd/pelvis shows multiple metastatic pulmonary nodules, moderate left pleural effusion, hypodense left hepatic lobe mass, possible hypodense right hepatic lobe mass, diverticulosis ASSESSMENT/PLAN: Patient is a 61 year old female with PMHx of HTN, A.fib on Coumadin, DMII, CHF, COPD, GERD and hypothyroidism who presented for dyspnea and was found to have a large left pleural effusion with multiple nodules on chest x-ray. Patient admitted for further monitoring and management. Dyspnea Likely Secondary to Left Sided Pleural Effusion with B/L Pulmonary Nodules -Likely secondary to malignancy -Thoracocentesis done and showed bloody pleural effusions likely malignant. -Cytology sent and shows neoplastic cells -CA 125 positive with level 153. Likely ovarian cancer. -Lung biopsy scheduled for tomorrow -Continue O2 PRN -Pulmonology consult appreciated -Will contact OBGYN Anticholinergic Syndrome- Resolved -no overnight event of b/l mydriasis, dry mouth and hypotension -CT head negative -Tudorza discontinued -Will continue to monitor Asthma/COPD -No history of smoking -Continue with Spiriva -Continue with Albuterol PRN -Tudorza discontinued due to Anticholinergic syndrome -Pulmonology consult appreciated Hypomagnesemia-resolved -Will continue to monitor Atrial Fibrillation -Coumadin on hold due to bloody effusion and for lung biopsy -Continue Diltiazem Cd 300mg daily -Continue to monitor PT Systolic CHF- Chronic -No acute exacerbation at the time -BNP 441 -Daily weight -Give Lasix 40mg IV daily -Hold Spironolactone due to hypotension -ECHO done and no global hypokinesis DMII -BGM ACHS -Novolog sliding scale HTN -Hypotensive -Hold Losartan 50mg daily -Hold Lasix -Hold Aldactone -Continue to monitor BP HLD -Continue Lipitor 20mg Hypothyroidism -Continue Levothyroxine 75mcg daily GERD -Continue Ranitidine 150mg BID Morbid Obesity -Bariatric referral as outpatient F/E/N -On no fluids -Electrolytes wnl -Diabetic diet Prophylaxis -Coumadin on hold for bloody effusion and lung biopsy scheduled Disposition -Lung biopsy for tomorrow Visit type - Emergency Visit Emergency Visit: Yes ED Registration Date: 09/08/16 Care time: The patient presented to the Emergency Department on the above date and was hospitalized for further evaluation of their emergent condition. - New Patient This patient is new to me today: No - Critical Care Critical Care patient: No
--- NOTE | 2016-09-11 15:37 | PN ---
Progress Note (short form) - Note Progress Note: PULMONARY LARGE LEFT BLOODY EXUDATIVE EFFUSION MOST LIKELY MALIGNANT (CALLED PATH DEPT) AWAITING SPECIAL STAINS B/L MULTIPLE METASTATIC LESIONS IN LUNG/LIKELY LIVER INVOLVEMENT PATIENT ALSO COMPLAINING OF 10/10 BACK PAIN (NEEDS TO BE EVALUATED WITH BONE SCAN) DRY CONSTANT COUGH VSS/AFEBRILE/MORBID OBESITY ANICTERIC DIMINISHE B/L BREATH SOUNDS S1S2 OBESE LYMPHEDEMA LOWER EXT LABS/MEDS/NOTES/IMAGING/REVIEWED A/P Left Exudative Pleural Effusion likely neoplastic Bilateral Lung Nodules likely metastatic disease liver involvement also seems likely Atrial Fibrillation on chronic a/c CHF HTN DM Morbid Obesity - tissue diagnosis pending would opt for needle bx lung lesion - hold a/c for now if bx is in AM - rate controll - O2 as needed - DVT prophylaxis - pain control Amy SULLIVAN MD
--- NOTE | 2016-09-11 17:18 | PN ---
Teaching Attending Note Name of Resident: Natasha Hodge ATTENDING PHYSICIAN STATEMENT I saw and evaluated the patient. I reviewed the resident's note and discussed the case with the resident. I agree with the resident's findings and plan as documented. SUBJECTIVE: No complaints. OBJECTIVE: Vital Signs Period Temp Pulse Resp BP Sys/Dinero Pulse Ox Last 24 Hr 97.5 F-97.9 F 75-95 18-20 114-161/48-81 95-95 HEART: Irregularly irregular LUNGS: Clear with decreased breath sounds at left base ABDOMEN: Obese, soft, non-tender, non-distended, normal BS EXTREMITIES: Lymphedema with venous stasis changes ASSESSMENT AND PLAN: This is a 61-year-old woman with a history of HTN, atrial fib, hypothyroidism, COPD, type 2 DM and morbid obesity who presented to the ER for dyspnea on exertion. 1. Bilateral lung nodules with exudative left pleural effusion - s/p thoracentesis 09/09 - cytology pending - CT abd/pelvis shows multiple metastatic pulmonary nodules, moderate left pleural effusion, hypodense left hepatic lobe mass, possible hypodense right hepatic lobe mass, diverticulosis - CEA, CA 19-9 normal, CA 125 elevated - IR evaluation for lung or liver biopsy - Medical Social Consultant evaluation 2. Permanent atrial fibrillation - Continue Cardizem for rate control - Continue Coumadin (hold for biopsy) 3. Hypomagnesemia - Improved 4. Morbid obesity with BMI 61.6 5. Hypothyroidism - Continue Synthroid 6. Type 2 DM - Continue Novolog sliding scale 7. HTN - Continue Cardizem - Cozaar, Aldactone held secondary to low BP and increasing creatinine
[2016-09-11] MEDS ORDERED: WARFARIN NA 5 MG TABLET (UD) PO SCH (18:00)
[2016-09-11] MEDS ORDERED: WARFARIN NA 5 MG TABLET (UD) PO ONE (18:00)
[2016-09-11] MEDS: MONTELUKAST NA 10 MG TABLET PO SCH (22:01)
[2016-09-11] MEDS: ATORVASTATIN CA 20 MG TABLET (FP) PO SCH (22:01)
[2016-09-12] MEDS: INSULIN SLIDING SCALE (NOVOLOG) 1 VIAL SQ SCH ×4 (06:36→21:27)
[2016-09-12] MEDS: LEVOTHYROXINE NA 75 MCG TABLET (FP) PO SCH (06:37)
[2016-09-12] MEDS: OMEGA-3 ACID ETHYL ESTERS (FATTY-ACIDS) 1 GM CAPSULE (FP) PO SCH ×3 (06:37→21:28)
--- NOTE | 2016-09-12 07:28 | PN ---
Physical Exam: SUBJECTIVE: Patient seen and examined by me at bedside. No overnight events noted. Patient is coughing more, especially when she lays down. She reports her breathing is the same from yesterday with no significant changes. She is able to breathe without oxygen. Otherwise, patient denies fever, chills, nausea, vomiting, abdominal pain, palpitations, headaches. OBJECTIVE: Vital Signs Period Temp Pulse Resp BP Sys/Dinero Pulse Ox Last 24 Hr 97.5 F-97.9 F 78-97 18-20 101-147/44-55 95-95 GENERAL: The patient is awake, alert, and fully oriented, in no acute distress. LUNGS: CTA bilaterally with no crackles or wheezes. HEART: Irregularly irregular, normal S1 and S2 without murmur, rub or gallop. ABDOMEN: Soft, Obese, nontender, nondistended, normoactive bowel sounds. EXTREMITIES: B/L lower extremity chronic venous changes with lymphedema and scaly dry skin. Laboratory Results - last 24 hr 09/11/16 09/11/16 09/11/16 06:18 06:18 11:24 Sodium 135 L Potassium 3.9 Chloride 98 Carbon Dioxide 24 Anion Gap 13 BUN 16 Creatinine 1.1 H POC Glucometer 218 Random Glucose 192 H D Calcium 9.3 Magnesium 1.9 Cancelled 09/11/16 09/11/16 09/12/16 17:20 21:12 05:39 Sodium Potassium Chloride Carbon Dioxide Anion Gap BUN Creatinine POC Glucometer 213 173 176 Random Glucose Calcium Magnesium Active Medications Generic Name Dose Route Start Last Admin Trade Name Freq PRN Reason Stop Dose Admin Aclidinium [place] 1 puff 09/09/16 10:00 09/09/16 21:26 Tudorza - IH 1 puff BID VIRGILIO Administration Albuterol Sulfate 1 amp 09/08/16 21:38 Ventolin 0.083% Nebulizer Soln - NEB Q4H PRN SHORT OF BREATH/WHEEZING Atorvastatin Calcium 20 mg 09/09/16 22:00 09/11/16 22:01 Lipitor - PO 20 mg HS VIRGILIO Administration Diltiazem HCl 300 mg 09/09/16 10:00 09/11/16 09:33 Cardizem Cd - PO 300 mg DAILY VIRGILIO Administration Ferrous Sulfate 325 mg 09/09/16 10:00 09/11/16 09:33 Feosol - PO 325 mg DAILY VIRGILIO Administration Insulin Aspart 1 vial 09/09/16 14:21 09/12/16 06:36 Novolog Vial Sliding Scale - SQ Not Given ACHS [facility] Protocol Levothyroxine Sodium 75 mcg 09/09/16 07:00 09/12/16 06:37 Synthroid - PO 75 mcg DAILY@0700 VIRGILIO Administration Loratadine 10 mg 09/09/16 10:00 09/11/16 09:33 Claritin - PO 10 mg DAILY VIRGILIO Administration Montelukast Sodium 10 mg 09/09/16 22:00 09/11/16 22:01 Singulair - PO 10 mg HS VIRGILIO Administration Haetq-1-Rgdz Ethyl Esters 1 gm 09/09/16 06:00 09/12/16 06:37 Lovaza - PO 1 gm TID VIRGILIO Administration Potassium Chloride 10 meq 09/09/16 10:00 09/11/16 09:33 Potassium Chloride Oral Liquid PO 10 meq DAILY VIRGILIO Administration Ranitidine HCl 150 mg 09/09/16 10:00 09/11/16 22:01 Zantac - PO 150 mg BID VIRGILIO Administration Senna 1 tab 09/08/16 22:45 Senna - PO DAILY PRN Images: Chest X-ray (09/08/16): Moderate left pleural effusion with compressive atelectasis. Multiple lung nodules - lung metastasis. Chest CT w/ Contrast (09/08/16): Innumerable bilateral pulmonary nodules, moderate to large left pleural effusion, and mediastinal and hilar lymphadenopathy are highly suspicious for metastatic disease. 2.9 cm hypodense mass is seen in the left lobe of the liver. Thoracocentesis under U/S guide (09/09/16) Chest X-ray (09/09/16): Decreased Pleural Effusion. No Pneumothorax seen. CT Abdomen and pelvis (09/10/16): CT abd/pelvis shows multiple metastatic pulmonary nodules, moderate left pleural effusion, hypodense left hepatic lobe mass, possible hypodense right hepatic lobe mass, diverticulosis ASSESSMENT/PLAN: Patient is a 61 year old female with PMHx of HTN, A.fib on Coumadin, DMII, CHF, COPD, GERD and hypothyroidism who presented for dyspnea and was found to have a large left pleural effusion with multiple nodules on chest x-ray. Patient admitted for further monitoring and management. Dyspnea Likely Secondary to Left Sided Pleural Effusion with B/L Pulmonary Nodules -Likely secondary to malignancy -Thoracocentesis done and showed bloody pleural effusions likely malignant. -Cytology sent and shows neoplastic cells -CA 125 positive with level 153. Likely ovarian cancer. -CT Abdomen/Pelvis showed a 3x2 lymph node in the right lateral wall of pelvis -Lung biopsy scheduled for today with IR -Continue O2 PRN -Pulmonology consult appreciated -OBGYN contacted and discussed case Anticholinergic Syndrome- Resolved -no overnight event of b/l mydriasis, dry mouth and hypotension -Will continue to monitor Asthma/COPD -No history of smoking -Continue with Spiriva -Continue with Albuterol PRN -Tudorza discontinued due to Anticholinergic syndrome -Pulmonology consult appreciated Hypomagnesemia-resolved -Will continue to monitor Atrial Fibrillation -Coumadin on hold due to bloody effusion and for lung biopsy -Continue Diltiazem Cd 300mg daily -Continue to monitor PT Systolic CHF- Chronic -No acute exacerbation at the time -BNP 441 -Daily weight -Hold lasix for hypotension -Hold Spironolactone due to hypotension -ECHO done and no global hypokinesis DMII -BGM ACHS -Novolog sliding scale HTN -Hypotensive -Hold Losartan 50mg daily -Hold Lasix -Hold Aldactone -Continue to monitor BP HLD -Continue Lipitor 20mg Hypothyroidism -Continue Levothyroxine 75mcg daily GERD -Continue Ranitidine 150mg BID Morbid Obesity -Bariatric referral as outpatient F/E/N -On no fluids -Electrolytes wnl -Diabetic diet Prophylaxis -Coumadin on hold for bloody effusion and lung biopsy scheduled Disposition -Lung biopsy today Visit type - Emergency Visit Emergency Visit: Yes ED Registration Date: 09/08/16 Care time: The patient presented to the Emergency Department on the above date and was hospitalized for further evaluation of their emergent condition. - New Patient This patient is new to me today: No - Critical Care Critical Care patient: No
[2016-09-12 07:59] LABS: BASOPHIL 0.9 % (0-2.0); EOSINOPHIL 2.6 % (0-4.5); MCH 24.9 pg (25.7-33.7); MEAN CELL VOLUME 77.9 fl (80-96); MEAN PLT VOLUME 10.4 fl (7.5-11.1); NEUTROPHILS 63.1 % (42.8-82.8); PLATELET COUNT 224 K/MM3 (134-434); RDW 17.2 % (11.6-15.6); WHITE BLOOD COUNT 5.8 K/mm3 (4.0-10.0)
[2016-09-12 08:08] LABS: ALBUMIN 2.9 g/dl (3.4-5.0); BILIRUBIN,TOTAL 1.1 mg/dL (0.2-1.0); CALCIUM 9.3 mg/dL (8.5-10.1); COCKROFT - GAULT 157.811; MAGNESIUM 2.2 mg/dL (1.8-2.4)
[2016-09-12 08:55] LABS: INR 1.2 (0.82-1.09); PROTHROMBIN TIME (PATIENT) 13.2 SEC (9.98-11.88)
[2016-09-12] MEDS ORDERED: PT OWN MED DRAWER 7, Y5N ONE ×2 (09:20→09:32)
[2016-09-12] MEDS: RANITIDINE HCL 150 MG TABLET (FP) PO SCH ×2 (09:21→21:28)
[2016-09-12] MEDS: FERROUS SO4 325 MG TABLET (FP) PO SCH (09:21)
[2016-09-12] MEDS: LORATADINE 10 MG TABLET PO SCH (09:21)
[2016-09-12] MEDS: POTASSIUM CHLORIDE ORAL LIQUID 20 MEQ/15 ML PO SCH (09:22)
[2016-09-12] MEDS: ACLIDINIUM BROMIDE 400 MCG/INH AERO.POWD IH SCH ×2 (09:22→21:31)
--- NOTE | 2016-09-12 15:28 | PATH ---
Cytology Non-Gynecological Report Patient Name: NEMO GAR [facility]. Rec. #: [id number] /Age/Gender: 1955 (Age: 61) / F Account: [id number] Location: [address] [place] [address] Taken: 09/09/2016 Received: 09/10/2016 Reported: 09/12/2016 Physicians: Luis Cat M.D. Zaire Jackman M.D. Simba Castorena M.D. Aakash Garcia M.D. Specimen(s) Received A: LEFT PLEURAL FLUID IN 50% ALCOHOL B: LEFT PLEURAL FLUID FRESH Clinical History Pleural effusion Final Diagnosis A,B. PLEURAL FLUID, LEFT, THORACENTESIS: SATISFACTORY FOR EVALUATION. POSITIVE FOR MALIGNANT CELLS. 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 Comment: Immunohistochemical stains performed and interpreted from cell block A at [facility] shows the following: the neoplastic cells in the effusion are positive for BerEP4/DON and CK7 immunostains and that negative for TTF-1 immunostain. Additional immunohistochemical stains performed at [place], [place] ([id number]) on cell block A and interpreted at [facility] show the following: the neoplastic cells in the effusion are positive for MOC31, Ca125, and PAX8 immunostains, few cells are positive for WT1; the neoplastic cells are negative for CK20, Ca19.9, MECCA-3, mammaglobin, GCDFP15, and calretinin immunostains. The cytomorphologic findings and the immunoprofile are of involvement by adenocarcinoma, most consistent with Mullerian origin. Clinical and imaging correlations are suggested. The case was discussed with Dr. Castorena on 09/12/16. Electronically Signed Johann Eldridge M.D. Gross Description A. Received is a 50 cc of yellow fluid in 50% alcohol. One cytofunnel slide and one cell block are made. B. Received is 2000 cc of yellow fluid fresh. One cytofunnel slide and one cell block are made.
[2016-09-12] MEDS ORDERED: ONDANSETRON 4 MG TABLET PO ONE (16:51)
--- NOTE | 2016-09-12 18:04 | PN ---
Teaching Attending Note Name of Resident: Natasha Hodge ATTENDING PHYSICIAN STATEMENT I saw and evaluated the patient. I reviewed the resident's note and discussed the case with the resident. I agree with the resident's findings and plan as documented. SUBJECTIVE: Patient has nausea after liver biopsy. Denies shortness of breath. OBJECTIVE: Vital Signs Period Temp Pulse Resp BP Sys/Dinero Pulse Ox Last 24 Hr 97.9 F-98.3 F 78-97 20-25 101-192/44-94 95-98 HEART: Irregularly irregular LUNGS: Clear with decreased breath sounds at left base ABDOMEN: Obese, soft, non-tender, non-distended, normal BS EXTREMITIES: Lymphedema with venous stasis changes ASSESSMENT AND PLAN: This is a 61-year-old woman with a history of HTN, atrial fib, hypothyroidism, COPD, type 2 DM and morbid obesity who presented to the ER for dyspnea on exertion. 1. Bilateral lung nodules with exudative left pleural effusion - s/p thoracentesis 09/09 - cytology pending - s/p liver biopsy today - CT abd/pelvis shows multiple metastatic pulmonary nodules, moderate left pleural effusion, hypodense left hepatic lobe mass, possible hypodense right hepatic lobe mass, diverticulosis - De Alcholizer evaluation for elevated CA 125 2. Permanent atrial fibrillation - Continue Cardizem CD for rate control - Continue Coumadin (held for biopsy) 3. Hypomagnesemia - Improved 4. Morbid obesity with BMI 62.1 5. Hypothyroidism - Continue Synthroid 6. Type 2 DM - Continue Novolog sliding scale 7. HTN - Continue Cardizem - Cozaar, Aldactone held secondary to low BP and increasing creatinine - will resume as creatinine and BP have improved 8. Hyperlipidemia - Continue Lipitor, Lovaza 9. COPD 10. Chronic systolic heart failure - Cozaar, Aldactone held secondary to low BP - will resume as creatinine and BP have improved
[2016-09-12] MEDS: ALBUTEROL SO4 0.083% IH SOL 2.5 MG/3 ML VIAL.NEB. NEB PRN (19:03)
[2016-09-12] MEDS: ATORVASTATIN CA 20 MG TABLET (FP) PO SCH (21:27)
[2016-09-12] MEDS: MONTELUKAST NA 10 MG TABLET PO SCH (21:28)
[2016-09-13] MEDS: OMEGA-3 ACID ETHYL ESTERS (FATTY-ACIDS) 1 GM CAPSULE (FP) PO SCH ×3 (06:19→22:24)
[2016-09-13] MEDS: LEVOTHYROXINE NA 75 MCG TABLET (FP) PO SCH (06:19)
[2016-09-13] MEDS: INSULIN SLIDING SCALE (NOVOLOG) 1 VIAL SQ SCH ×4 (06:19→21:48)
--- NOTE | 2016-09-13 07:00 | PN ---
Physical Exam: SUBJECTIVE: Patient seen and examined by me at bedside. No overnight events noted. Patient still has some coughing but is better than yesterday. Had some nausea last night after the liver biopsy but symptoms resolved. otherwise, no fever, chills, vomiting, abdominal pain, chest pain, palpitations, headaches. OBJECTIVE: Vital Signs Period Temp Pulse Resp BP Sys/Dinero Pulse Ox Last 24 Hr 97.6 F-98.2 F 79-95 20-25 107-192/57-94 96-98 GENERAL: The patient is awake, alert, and fully oriented, in no acute distress. LUNGS: CTA bilaterally with no crackles or wheezes. HEART: Irregularly irregular, normal S1 and S2 without murmur, rub or gallop. ABDOMEN: Soft, Obese, nontender, nondistended, normoactive bowel sounds. EXTREMITIES: B/L lower extremity chronic venous changes with lymphedema and scaly dry skin. Laboratory Results - last 24 hr 09/12/16 09/12/16 09/12/16 05:35 05:35 05:35 WBC 5.8 RBC 5.16 Hgb 12.9 Hct 40.2 MCV 77.9 L MCHC 32.0 RDW 17.2 H Plt Count 224 MPV 10.4 Neutrophils % 63.1 Lymphocytes % 19.6 D Monocytes % 13.8 H Eosinophils % 2.6 Basophils % 0.9 INR 1.20 H PTT (Actin FS) Sodium 136 Potassium 4.2 Chloride 98 Carbon Dioxide 25 Anion Gap 13 BUN 12 D Creatinine 1.0 Creat Clearance w eGFR 56.37 POC Glucometer Random Glucose 207 H Calcium 9.3 Magnesium 2.2 Total Bilirubin 1.1 H D AST 27 ALT 16 Alkaline Phosphatase 124 H Total Protein 7.0 Albumin 2.9 L 09/12/16 09/12/16 09/12/16 05:35 16:31 21:07 WBC RBC Hgb Hct MCV MCHC RDW Plt Count MPV Neutrophils % Lymphocytes % Monocytes % Eosinophils % Basophils % INR PTT (Actin FS) 28.9 D Sodium Potassium Chloride Carbon Dioxide Anion Gap BUN Creatinine Creat Clearance w eGFR POC Glucometer 207 251 Random Glucose Calcium Magnesium Total Bilirubin AST ALT Alkaline Phosphatase Total Protein Albumin 09/13/16 05:46 WBC RBC Hgb Hct MCV MCHC RDW Plt Count MPV Neutrophils % Lymphocytes % Monocytes % Eosinophils % Basophils % INR PTT (Actin FS) Sodium Potassium Chloride Carbon Dioxide Anion Gap BUN Creatinine Creat Clearance w eGFR POC Glucometer 190 Random Glucose Calcium Magnesium Total Bilirubin AST ALT Alkaline Phosphatase Total Protein Albumin Active Medications Generic Name Dose Route Start Last Admin Trade Name Freq PRN Reason Stop Dose Admin Aclidinium [place] 1 puff 09/09/16 10:00 09/12/16 21:31 Tudorza - IH 1 puff BID VIRGILIO Administration Albuterol Sulfate 1 amp 09/08/16 21:38 09/12/16 19:03 Ventolin 0.083% Nebulizer Soln - NEB 1 amp Q4H PRN Administration SHORT OF BREATH/WHEEZING Atorvastatin Calcium 20 mg 09/09/16 22:00 09/12/16 21:27 Lipitor - PO 20 mg HS VIRGILIO Administration Diltiazem HCl 300 mg 09/09/16 10:00 09/12/16 09:22 Cardizem Cd - PO 300 mg DAILY VIRGILIO Administration Ferrous Sulfate 325 mg 09/09/16 10:00 09/12/16 09:21 Feosol - PO 325 mg DAILY VIRGILIO Administration Guaifenesin 5 ml 09/12/16 18:46 Diabetic Tussin Dm - PO Q6H PRN COUGH Insulin Aspart 1 vial 09/09/16 14:21 09/13/16 06:19 Novolog Vial Sliding Scale - SQ Not Given ACHS [facility] Protocol Levothyroxine Sodium 75 mcg 09/09/16 07:00 09/13/16 06:19 Synthroid - PO 75 mcg DAILY@0700 VIRGILIO Administration Loratadine 10 mg 09/09/16 10:00 09/12/16 09:21 Claritin - PO 10 mg DAILY VIRGILIO Administration Montelukast Sodium 10 mg 09/09/16 22:00 09/12/16 21:28 Singulair - PO 10 mg HS VIRGILOI Administration Daknp-4-Uffl Ethyl Esters 1 gm 09/09/16 06:00 09/13/16 06:19 Lovaza - PO 1 gm TID VIRGILIO Administration Potassium Chloride 10 meq 09/09/16 10:00 09/12/16 09:22 Potassium Chloride Oral Liquid PO 10 meq DAILY VIRGILIO Administration Ranitidine HCl 150 mg 09/09/16 10:00 09/12/16 21:28 Zantac - PO 150 mg BID VIRGILIO Administration Senna 1 tab 09/08/16 22:45 Senna - PO DAILY PRN Images: Chest X-ray (09/08/16): Moderate left pleural effusion with compressive atelectasis. Multiple lung nodules - lung metastasis. Chest CT w/ Contrast (09/08/16): Innumerable bilateral pulmonary nodules, moderate to large left pleural effusion, and mediastinal and hilar lymphadenopathy are highly suspicious for metastatic disease. 2.9 cm hypodense mass is seen in the left lobe of the liver. Thoracocentesis under U/S guide (09/09/16) Chest X-ray (09/09/16): Decreased Pleural Effusion. No Pneumothorax seen. CT Abdomen and pelvis (09/10/16): CT abd/pelvis shows multiple metastatic pulmonary nodules, moderate left pleural effusion, hypodense left hepatic lobe mass, possible hypodense right hepatic lobe mass, diverticulosis ASSESSMENT/PLAN: Patient is a 61 year old female with PMHx of HTN, A.fib on Coumadin, DMII, CHF, COPD, GERD and hypothyroidism who presented for dyspnea and was found to have a large left pleural effusion with multiple nodules on chest x-ray. Patient admitted for further monitoring and management. Dyspnea Likely Secondary to Left Sided Pleural Effusion with B/L Pulmonary Nodules -Likely secondary to malignancy -Thoracocentesis done and showed bloody pleural effusions likely malignant. -CT Abdomen/Pelvis showed a 3x2 lymph node in the right lateral wall of pelvis -CA 125 positive with level 153. Likely ovarian cancer. -Cytology was positive for malignant cells. Involvement by Adenocarcinoma, most consistent with Mullerian origin -S/P liver biopsy 09/12/16 -Continue O2 PRN -Pulmonology consult appreciated -Will consult Heme/oncology Anticholinergic Syndrome- Resolved -no overnight event of b/l mydriasis, dry mouth and hypotension -Will continue to monitor Asthma/COPD -No history of smoking -Continue with Albuterol PRN -Tudorza/Spiriva discontinued due to Anticholinergic syndrome -Pulmonology consult appreciated Hypomagnesemia-resolved -Will continue to monitor Atrial Fibrillation -Will resume Coumadin 5mg -Continue Diltiazem Cd 300mg daily -Continue to monitor PT Systolic CHF- Chronic -No acute exacerbation at the time -BNP 441 -Daily weight -Hold lasix for hypotension -Hold Spironolactone due to hypotension -ECHO done and no global hypokinesis DMII -BGM ACHS -Novolog sliding scale HTN -Hypotensive -Hold Losartan 50mg daily -Hold Lasix -Hold Aldactone -Continue to monitor BP HLD -Continue Lipitor 20mg Hypothyroidism -Continue Levothyroxine 75mcg daily GERD -Continue Ranitidine 150mg BID Morbid Obesity -Bariatric referral as outpatient F/E/N -On no fluids -Electrolytes wnl -Diabetic diet Prophylaxis -Will resume coumadin for DVT Disposition -Cytology shows malignancy by adenocarcinoma, likely Mullerian origin. Waiting for biopsy results Visit type - Emergency Visit Emergency Visit: Yes ED Registration Date: 09/08/16 Care time: The patient presented to the Emergency Department on the above date and was hospitalized for further evaluation of their emergent condition. - New Patient This patient is new to me today: No - Critical Care Critical Care patient: No
[2016-09-13 08:04] LABS: ALBUMIN 2.8 g/dl (3.4-5.0); BILIRUBIN,TOTAL 0.7 mg/dL (0.2-1.0); CALCIUM 9.2 mg/dL (8.5-10.1); COCKROFT - GAULT 158.6865; MAGNESIUM 2.2 mg/dL (1.8-2.4); TOT PROT 6.9 g/dl (6.4-8.2)
[2016-09-13] MEDS: RANITIDINE HCL 150 MG TABLET (FP) PO SCH ×2 (09:04→22:24)
[2016-09-13] MEDS: FERROUS SO4 325 MG TABLET (FP) PO SCH (09:04)
[2016-09-13] MEDS: POTASSIUM CHLORIDE ORAL LIQUID 20 MEQ/15 ML PO SCH (09:04)
[2016-09-13] MEDS: LORATADINE 10 MG TABLET PO SCH (09:04)
[2016-09-13] MEDS: ACLIDINIUM BROMIDE 400 MCG/INH AERO.POWD IH SCH ×2 (09:07→22:23)
[2016-09-13] MEDS ORDERED: PT OWN MED DRAWER 7, Y5N ONE (10:00)
[2016-09-13] MEDS ORDERED: INSULIN (NOVOLOG) ASPART 100 UNITS/ML 10ML VIAL ONE (11:54)
--- NOTE | 2016-09-13 13:50 | PN ---
Progress Note, Physician History of Present Illness: PULMONARY ALERT,OOB-CHAIR,-SOB,-CP,LESS COUGH,. PATH REPORT DISCUSSED WITH PT AND FAMILY - Current Medication List Current Medications: Active Medications Aclidinium [place] (Tudorza -) 1 puff IH BID [facility] Last Admin: 09/13/16 09:07 Dose: 1 puff Albuterol Sulfate (Ventolin 0.083% Nebulizer Soln -) 1 amp NEB Q4H PRN PRN Reason: SHORT OF BREATH/WHEEZING Last Admin: 09/12/16 19:03 Dose: 1 amp Atorvastatin Calcium (Lipitor -) 20 mg PO HS [facility] Last Admin: 09/12/16 21:27 Dose: 20 mg Diltiazem HCl (Cardizem Cd -) 300 mg PO DAILY [facility] Last Admin: 09/13/16 09:07 Dose: 300 mg Ferrous Sulfate (Feosol -) 325 mg PO DAILY [facility] Last Admin: 09/13/16 09:04 Dose: 325 mg Guaifenesin (Diabetic Tussin Dm -) 5 ml PO Q6H PRN PRN Reason: COUGH Insulin Aspart (Novolog Vial Sliding Scale -) 1 vial SQ ACHS [facility] PRN Reason: Protocol Last Admin: 09/13/16 11:56 Dose: 2 units Levothyroxine Sodium (Synthroid -) 75 mcg PO DAILY@0700 [facility] Last Admin: 09/13/16 06:19 Dose: 75 mcg Loratadine (Claritin -) 10 mg PO DAILY [facility] Last Admin: 09/13/16 09:04 Dose: 10 mg Montelukast Sodium (Singulair -) [address] [facility] Last Admin: 09/12/16 21:28 Dose: 10 mg Znwlh-0-Gwkp Ethyl Esters (Lovaza -) 1 gm PO TID [facility] Last Admin: 09/13/16 13:16 Dose: 1 gm Ondansetron HCl (Zofran -) 8 mg PO Q4H PRN PRN Reason: NAUSEA AND/OR VOMITING Potassium Chloride (Potassium Chloride Oral Liquid) 10 meq PO DAILY [facility] Last Admin: 09/13/16 09:04 Dose: 10 meq Ranitidine HCl (Zantac -) 150 mg PO BID [facility] Last Admin: 09/13/16 09:04 Dose: 150 mg Senna (Senna -) 1 tab PO DAILY PRN - Objective Vital Signs: Vital Signs Temperature 97.4 F L 09/13/16 10:00 Pulse Rate 77 09/13/16 10:00 Respiratory Rate 20 09/13/16 10:00 Blood Pressure 123/63 09/13/16 10:00 O2 Sat by Pulse Oximetry (%) 97 09/13/16 09:00 Constitutional: Yes: Calm, Anxious, Obese Eyes: Yes: WNL HENT: Yes: WNL Neck: Yes: Supple Cardiovascular: Yes: Pulse Irregular, S1, S2 Extremities: Yes: WNL Edema: Yes Labs: CBC, BMP 09/12/16 05:35 09/13/16 06:40 INR, PTT INR 1.20 (0.82-1.09) H 09/12/16 05:35 Problem List - Problems (1) A-fib Code(s): I48.91 - UNSPECIFIED ATRIAL FIBRILLATION (2) Acute dyspnea Code(s): R06.00 - DYSPNEA, UNSPECIFIED (3) HTN (hypertension) Code(s): I10 - ESSENTIAL (PRIMARY) HYPERTENSION (4) Morbidly obese Code(s): E66.01 - MORBID (SEVERE) OBESITY DUE TO EXCESS CALORIES (5) Pleural effusion Code(s): J90 - PLEURAL EFFUSION, NOT ELSEWHERE CLASSIFIED (6) Hypothyroid Code(s): E03.9 - HYPOTHYROIDISM, UNSPECIFIED (7) Lymphedema Code(s): I89.0 - LYMPHEDEMA, NOT ELSEWHERE CLASSIFIED (8) Pulmonary nodules/lesions, multiple Code(s): R91.8 - OTHER NONSPECIFIC ABNORMAL FINDING OF LUNG FIELD Assessment/Plan IMP DYSPNEA IMPROVED LARGE LEFT PLEURAL EFFUSION MALIGNANT BILATERAL PULMONARY NODULES C/W METS PRIMARY GYNECOLOGIC CHF AFIB HTN DM H/O ASTHMA HYPOTHYROID MORBID OBESITY PLAN ONCOLOGY CONSULT NASAL O2 INHALED BRONCHODILATORS DR KATE Problem List - Problems (1) A-fib Code(s): I48.91 - UNSPECIFIED ATRIAL FIBRILLATION (2) Acute dyspnea Code(s): R06.00 - DYSPNEA, UNSPECIFIED (3) HTN (hypertension) Code(s): I10 - ESSENTIAL (PRIMARY) HYPERTENSION (4) Morbidly obese Code(s): E66.01 - MORBID (SEVERE) OBESITY DUE TO EXCESS CALORIES (5) Pleural effusion Code(s): J90 - PLEURAL EFFUSION, NOT ELSEWHERE CLASSIFIED (6) Hypothyroid Code(s): E03.9 - HYPOTHYROIDISM, UNSPECIFIED (7) Lymphedema Code(s): I89.0 - LYMPHEDEMA, NOT ELSEWHERE CLASSIFIED (8) Pulmonary nodules/lesions, multiple Code(s): R91.8 - OTHER NONSPECIFIC ABNORMAL FINDING OF LUNG FIELD
[2016-09-13] MEDS: WARFARIN NA 5 MG TABLET (UD) PO SCH (17:07)
--- NOTE | 2016-09-13 17:30 | PN ---
Teaching Attending Note Name of Resident: Natasha Hodge ATTENDING PHYSICIAN STATEMENT I saw and evaluated the patient. I reviewed the resident's note and discussed the case with the resident. I agree with the resident's findings and plan as documented. SUBJECTIVE: No complaints. OBJECTIVE: Vital Signs Period Temp Pulse Resp BP Sys/Dinero Pulse Ox Last 24 Hr 97.4 F-98.1 F 77-86 16-20 100-135/48-63 97-97 HEART: Irregularly irregular LUNGS: Clear with decreased breath sounds at left base ABDOMEN: Obese, soft, non-tender, non-distended, normal BS EXTREMITIES: Lymphedema with venous stasis changes ASSESSMENT AND PLAN: This is a 61-year-old woman with a history of HTN, atrial fib, hypothyroidism, COPD, type 2 DM and morbid obesity who presented to the ER for dyspnea on exertion. 1. 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 Permanent atrial fibrillation - Continue Cardizem CD for rate control - Continue Coumadin 3. Hypomagnesemia - Improved 4. Morbid obesity with BMI 62.4 5. Hypothyroidism - Continue Synthroid 6. Type 2 DM - Continue Novolog sliding scale 7. HTN - Continue Cardizem - Cozaar, Aldactone held secondary to low BP and increasing creatinine 8. Hyperlipidemia - Continue Lipitor, Lovaza 9. COPD - Continue Tudorza, Singulair, Albuterol as needed 10. Chronic systolic heart failure - Cozaar, Aldactone held secondary to low BP
--- NOTE | 2016-09-13 20:45 | CON.CARD ---
Consult - History of Present Illness History of Present Illness: The patient is a 61 year old female, with a significant past medical history of Hypertension (on Cardizem), AFIB, diabetes, CHF, COPD, GERD and hypothyroidism , who presents to the emergency department on with SOB for few days. Patient saw her PMD 2 days ago with the same complaint who was supposed to prescribe her breathing treatment pumps, but patient states that the pumps were never sent by her doctor which prompted her to present to the ED. Patient denies any new leg swelling. Patient reports orthopnea and states that she sleeps with 2 pillows. She notes that she is cold but denies any fever. She reports normal bowel movements. Duringh hospital course she was diagnosed with; 1. 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 Permanent atrial fibrillation - Continue Cardizem CD for rate control - Continue Coumadin 3. Hypomagnesemia - Improved 4. Morbid obesity with BMI 62.4 5. Hypothyroidism - Continue Synthroid 6. Type 2 DM - Continue Novolog sliding scale 7. HTN - Continue Cardizem - Cozaar, Aldactone held secondary to low BP and increasing creatinine 8. Hyperlipidemia - Continue Lipitor, Lovaza 9. COPD - Continue Tudorza, Singulair, Albuterol as needed 10. Chronic systolic heart failure - Cozaar, Aldactone held secondary to low BP - Past Medical History Cardio/Vascular: Yes: AFIB, HTN, Other (chronic lymphedema) Pulmonary: Yes: COPD Gastrointestinal: Yes: GERD Endocrine: Yes: Diabetes Mellitus, Hyperthyroidism - Alcohol/Substance Use Hx Alcohol Use: No - Smoking History Smoking history: Never smoked Aproximately how many cigarettes per day: 0 - Social History Usual Living Arrangement: With Child Home Medications - Allergies Allergies/Adverse Reactions: Allergies Allergy/AdvReac Type Severity Reaction Status Date / Time No Known Allergies Allergy Verified 09/08/16 18:05 - Home Medications Home Medications: Ambulatory Orders Ferrous Sulfate 325 mg PO DAILY 10/17/12 Insuln Asp Prt/Insulin Aspart [Novolog Mix 70-30 Flexpen Syrn] 35 unit SQ BID Levothyroxine [Synthroid -] 75 mcg PO DAILY 10/17/12 Loratadine [Claritin -] 10 mg PO DAILY 10/17/12 Losartan Potassium 50 mg PO DAILY 10/17/12 Metformin HCl [Glucophage] 1,000 mg PO BID 10/17/12 Montelukast Na [Singulair -] 10 mg PO HS 10/17/12 [place]-3 Acid Ethyl Esters [Lovaza -] 1,000 mg PO TID 10/17/12 Potassium Chloride 10 meq PO DAILY 10/17/12 Ranitidine [Zantac -] 150 mg PO BID 10/17/12 Simvastatin [Zocor -] 40 mg PO HS 10/17/12 Tiotropium [place] [Spiriva] 1 inh IH DAILY 10/17/12 Warfarin Sodium [Coumadin] 5 mg PO DAILY 10/17/12 Calcium Carbonate/Vitamin D3 [Oyster Shell Calcium-Vit D Tab] 1 each PO DAILY Diltiazem Cd [Cardizem Cd -] 300 mg PO DAILY 09/08/16 Sennosides [Senna] 8.6 mg PO PRN 09/08/16 Spironolactone 60 mg PO DAILY 09/08/16 Family Disease History - Family Disease History Family Disease History: Diabetes: Mother, CA: Mother Review of Systems - Review of Systems Constitutional: reports: No Symptoms Eyes: reports: No Symptoms HENT: reports: No Symptoms Neck: reports: No Symptoms Cardiovascular: reports: No Symptoms Gastrointestinal: reports: No Symptoms Genitourinary: reports: No Symptoms Breasts: reports: No Symptoms Reported Musculoskeletal: reports: No Symptoms Integumentary: reports: No Symptoms Neurological: reports: No Symptoms Endocrine: reports: No Symptoms Hematology/Lymphatic: reports: No Symptoms Psychiatric: reports: No Symptoms Vital Signs: Vital Signs Temperature 98.1 F 09/13/16 14:14 Pulse Rate 82 09/13/16 14:14 Respiratory Rate 16 09/13/16 14:14 Blood Pressure 125/56 09/13/16 14:14 O2 Sat by Pulse Oximetry (%) 97 09/13/16 09:00 Constitutional: Yes: Well Nourished, No Distress, Calm Eyes: Yes: WNL, Conjunctiva Clear, EOM Intact HENT: Yes: WNL, Atraumatic, Normocephalic Neck: Yes: WNL, Supple, Trachea Midline Respiratory: Yes: WNL, Regular, CTA Bilaterally Gastrointestinal: Yes: WNL, Normal Bowel Sounds Renal/: Yes: WNL Cardiovascular: Yes: Pulse Irregular Musculoskeletal: Yes: WNL Extremities: Yes: WNL Edema: Yes Integumentary: Yes: WNL Neurological: Yes: WNL, Alert, Oriented ...Motor Strength: WNL Psychiatric: Yes: WNL, Alert, Oriented - Other Data Labs, Other Data: CBC, BMP 09/12/16 05:35 09/13/16 06:40 INR, PTT INR 1.20 (0.82-1.09) H 09/12/16 05:35 Laboratory Tests 09/08/16 09/08/16 09/08/16 18:45 18:45 18:45 WBC 6.7 RBC 5.38 H Hgb 13.0 Hct 41.8 MCV 77.6 L MCHC 31.2 L RDW 17.2 H Plt Count 223 D MPV 10.6 Neutrophils % 60.4 Lymphocytes % 25.0 Monocytes % 11.5 H Eosinophils % 2.0 Basophils % 1.1 INR 1.33 H PTT (Actin FS) Sodium Cancelled Potassium Cancelled Chloride Cancelled Carbon Dioxide Cancelled Anion Gap Cancelled BUN Cancelled Creatinine Cancelled Creat Clearance w eGFR Cancelled POC Glucometer Random Glucose Cancelled Calcium Cancelled Magnesium Total Bilirubin Cancelled AST Cancelled ALT Cancelled Alkaline Phosphatase Cancelled Creatine Kinase Cancelled Troponin I Cancelled B-Natriuretic Peptide Total Protein Cancelled Albumin Cancelled Carcinoembryonic Ag CA 19-9 Antigen CA 125 Antigen Pleural Fluid Source Pleural Color Pleural Appearance Pleural WBC Pleural RBC Pleural Neutrophils Pleural Lymphocytes Pleural Monocytes Pleural Eosinophils Pleural Macrophages Pleural Mesothelial Pleural Chloride Pleural Total Protein Pleural Albumin Pleural LDH Pleural Glucose Pleural Amylase Pleural Cholesterol Pleural Triglycerides 09/08/16 09/08/16 09/08/16 18:45 19:48 19:48 WBC RBC Hgb Hct MCV MCHC RDW Plt Count MPV Neutrophils % Lymphocytes % Monocytes % Eosinophils % Basophils % INR PTT (Actin FS) Sodium 140 Potassium 3.9 Chloride 102 Carbon Dioxide 28 Anion Gap 10 BUN 13 Creatinine 1.0 Creat Clearance w eGFR 56.37 POC Glucometer Random Glucose 141 H Calcium 9.8 Magnesium Total Bilirubin 0.5 D AST 21 D ALT 15 D Alkaline Phosphatase 123 H Creatine Kinase 51 Troponin I < 0.02 B-Natriuretic Peptide Cancelled 441.31 H Total Protein 7.6 Albumin 3.2 L Carcinoembryonic Ag CA 19-9 Antigen CA 125 Antigen Pleural Fluid Source Pleural Color Pleural Appearance Pleural WBC Pleural RBC Pleural Neutrophils Pleural Lymphocytes Pleural Monocytes Pleural Eosinophils Pleural Macrophages Pleural Mesothelial Pleural Chloride Pleural Total Protein Pleural Albumin Pleural LDH Pleural Glucose Pleural Amylase Pleural Cholesterol Pleural Triglycerides 09/08/16 09/09/16 09/09/16 22:49 06:08 06:47 WBC 5.1 RBC 5.12 Hgb 12.7 Hct 39.6 MCV 77.3 L MCHC 32.2 RDW 17.1 H Plt Count 181 MPV 10.6 Neutrophils % Lymphocytes % Monocytes % Eosinophils % Basophils % INR PTT (Actin FS) Sodium Potassium Chloride Carbon Dioxide Anion Gap BUN Creatinine Creat Clearance w eGFR POC Glucometer 160.79135 125 Random Glucose Calcium Magnesium Total Bilirubin AST ALT Alkaline Phosphatase Creatine Kinase Troponin I B-Natriuretic Peptide Total Protein Albumin Carcinoembryonic Ag CA 19-9 Antigen CA 125 Antigen Pleural Fluid Source Pleural Color Pleural Appearance Pleural WBC Pleural RBC Pleural Neutrophils Pleural Lymphocytes Pleural Monocytes Pleural Eosinophils Pleural Macrophages Pleural Mesothelial Pleural Chloride Pleural Total Protein Pleural Albumin Pleural LDH Pleural Glucose Pleural Amylase Pleural Cholesterol Pleural Triglycerides 09/09/16 09/09/16 09/09/16 06:47 12:00 13:30 WBC RBC Hgb Hct MCV MCHC RDW Plt Count MPV Neutrophils % Lymphocytes % Monocytes % Eosinophils % Basophils % INR PTT (Actin FS) Sodium 141 Potassium 3.9 Chloride 100 Carbon Dioxide 27 Anion Gap 14 BUN 12 Creatinine 1.0 Creat Clearance w eGFR POC Glucometer 181 Random Glucose 122 H Calcium 9.4 Magnesium 1.7 L Total Bilirubin AST ALT Alkaline Phosphatase Creatine Kinase Troponin I B-Natriuretic Peptide Total Protein Albumin Carcinoembryonic Ag CA 19-9 Antigen CA 125 Antigen Pleural Fluid Source Left pleural Pleural Color Red Pleural Appearance Bloody Pleural WBC 1343 Pleural RBC 103830 Pleural Neutrophils 1 Pleural Lymphocytes 10 Pleural Monocytes 1 Pleural Eosinophils 1 Pleural Macrophages 58 Pleural Mesothelial 29 Pleural Chloride 104 Pleural Total Protein 4.950 Pleural Albumin 3 Pleural LDH 579 Pleural Glucose 184.320 Pleural Amylase 45.364 Pleural Cholesterol 61 Pleural Triglycerides 57 09/09/16 09/09/16 09/09/16 17:38 19:32 21:26 WBC RBC Hgb Hct MCV MCHC RDW Plt Count MPV Neutrophils % Lymphocytes % Monocytes % Eosinophils % Basophils % INR PTT (Actin FS) Sodium Potassium Chloride Carbon Dioxide Anion Gap BUN Creatinine Creat Clearance w eGFR POC Glucometer 157 213 169 Random Glucose Calcium Magnesium Total Bilirubin AST ALT Alkaline Phosphatase Creatine Kinase Troponin I B-Natriuretic Peptide Total Protein Albumin Carcinoembryonic Ag CA 19-9 Antigen CA 125 Antigen Pleural Fluid Source Pleural Color Pleural Appearance Pleural WBC Pleural RBC Pleural Neutrophils Pleural Lymphocytes Pleural Monocytes Pleural Eosinophils Pleural Macrophages Pleural Mesothelial Pleural Chloride Pleural Total Protein Pleural Albumin Pleural LDH Pleural Glucose Pleural Amylase Pleural Cholesterol Pleural Triglycerides 09/10/16 09/10/16 09/10/16 05:51 06:30 06:30 WBC 5.9 RBC 5.12 Hgb 12.6 Hct 39.8 MCV 77.8 L MCHC 31.6 L RDW 17.0 H Plt Count 221 D MPV 10.1 Neutrophils % Lymphocytes % Monocytes % Eosinophils % Basophils % INR PTT (Actin FS) Sodium Potassium Chloride Carbon Dioxide Anion Gap BUN Creatinine Creat Clearance w eGFR POC Glucometer 140 Random Glucose Calcium Magnesium Total Bilirubin AST ALT Alkaline Phosphatase Creatine Kinase Troponin I B-Natriuretic Peptide Total Protein Albumin Carcinoembryonic Ag 3.3 CA 19-9 Antigen 25 CA 125 Antigen 153.0 H Pleural Fluid Source Pleural Color Pleural Appearance Pleural WBC Pleural RBC Pleural Neutrophils Pleural Lymphocytes Pleural Monocytes Pleural Eosinophils Pleural Macrophages Pleural Mesothelial Pleural Chloride Pleural Total Protein Pleural Albumin Pleural LDH Pleural Glucose Pleural Amylase Pleural Cholesterol Pleural Triglycerides 09/10/16 09/10/16 09/10/16 06:30 06:30 11:38 WBC RBC Hgb Hct MCV MCHC RDW Plt Count MPV Neutrophils % Lymphocytes % Monocytes % Eosinophils % Basophils % INR 1.29 H PTT (Actin FS) Sodium 137 Potassium 3.7 Chloride 98 Carbon Dioxide 28 Anion Gap 11 BUN 15 D Creatinine 1.2 H Creat Clearance w eGFR 45.67 POC Glucometer 172 Random Glucose 156 H D Calcium 9.1 Magnesium 1.9 Total Bilirubin 0.7 D AST 24 ALT 16 Alkaline Phosphatase 117 Creatine Kinase Troponin I B-Natriuretic Peptide Total Protein 6.9 Albumin 2.9 L Carcinoembryonic Ag CA 19-9 Antigen CA 125 Antigen Pleural Fluid Source Pleural Color Pleural Appearance Pleural WBC Pleural RBC Pleural Neutrophils Pleural Lymphocytes Pleural Monocytes Pleural Eosinophils Pleural Macrophages Pleural Mesothelial Pleural Chloride Pleural Total Protein Pleural Albumin Pleural LDH Pleural Glucose Pleural Amylase Pleural Cholesterol Pleural Triglycerides 09/10/16 09/10/16 09/11/16 17:39 22:02 05:46 WBC RBC Hgb Hct MCV MCHC RDW Plt Count MPV Neutrophils % Lymphocytes % Monocytes % Eosinophils % Basophils % INR PTT (Actin FS) Sodium Potassium Chloride Carbon Dioxide Anion Gap BUN Creatinine Creat Clearance w eGFR POC Glucometer 151 165 183 Random Glucose Calcium Magnesium Total Bilirubin AST ALT Alkaline Phosphatase Creatine Kinase Troponin I B-Natriuretic Peptide Total Protein Albumin Carcinoembryonic Ag CA 19-9 Antigen CA 125 Antigen Pleural Fluid Source Pleural Color Pleural Appearance Pleural WBC Pleural RBC Pleural Neutrophils Pleural Lymphocytes Pleural Monocytes Pleural Eosinophils Pleural Macrophages Pleural Mesothelial Pleural Chloride Pleural Total Protein Pleural Albumin Pleural LDH Pleural Glucose Pleural Amylase Pleural Cholesterol Pleural Triglycerides 09/11/16 09/11/16 09/11/16 06:18 06:18 11:24 WBC RBC Hgb Hct MCV MCHC RDW Plt Count MPV Neutrophils % Lymphocytes % Monocytes % Eosinophils % Basophils % INR PTT (Actin FS) Sodium 135 L Potassium 3.9 Chloride 98 Carbon Dioxide 24 Anion Gap 13 BUN 16 Creatinine 1.1 H Creat Clearance w eGFR POC Glucometer 218 Random Glucose 192 H D Calcium 9.3 Magnesium 1.9 Cancelled Total Bilirubin AST ALT Alkaline Phosphatase Creatine Kinase Troponin I B-Natriuretic Peptide Total Protein Albumin Carcinoembryonic Ag CA 19-9 Antigen CA 125 Antigen Pleural Fluid Source Pleural Color Pleural Appearance Pleural WBC Pleural RBC Pleural Neutrophils Pleural Lymphocytes Pleural Monocytes Pleural Eosinophils Pleural Macrophages Pleural Mesothelial Pleural Chloride Pleural Total Protein Pleural Albumin Pleural LDH Pleural Glucose Pleural Amylase Pleural Cholesterol Pleural Triglycerides 09/11/16 09/11/16 09/12/16 17:20 21:12 05:35 WBC 5.8 RBC 5.16 Hgb 12.9 Hct 40.2 MCV 77.9 L MCHC 32.0 RDW 17.2 H Plt Count 224 MPV 10.4 Neutrophils % 63.1 Lymphocytes % 19.6 D Monocytes % 13.8 H Eosinophils % 2.6 Basophils % 0.9 INR PTT (Actin FS) Sodium Potassium Chloride Carbon Dioxide Anion Gap BUN Creatinine Creat Clearance w eGFR POC Glucometer 213 173 Random Glucose Calcium Magnesium Total Bilirubin AST ALT Alkaline Phosphatase Creatine Kinase Troponin I B-Natriuretic Peptide Total Protein Albumin Carcinoembryonic Ag CA 19-9 Antigen CA 125 Antigen Pleural Fluid Source Pleural Color Pleural Appearance Pleural WBC Pleural RBC Pleural Neutrophils Pleural Lymphocytes Pleural Monocytes Pleural Eosinophils Pleural Macrophages Pleural Mesothelial Pleural Chloride Pleural Total Protein Pleural Albumin Pleural LDH Pleural Glucose Pleural Amylase Pleural Cholesterol Pleural Triglycerides 09/12/16 09/12/16 09/12/16 05:35 05:35 05:35 WBC RBC Hgb Hct MCV MCHC RDW Plt Count MPV Neutrophils % Lymphocytes % Monocytes % Eosinophils % Basophils % INR 1.20 H PTT (Actin FS) 28.9 D Sodium 136 Potassium 4.2 Chloride 98 Carbon Dioxide 25 Anion Gap 13 BUN 12 D Creatinine 1.0 Creat Clearance w eGFR 56.37 POC Glucometer Random Glucose 207 H Calcium 9.3 Magnesium 2.2 Total Bilirubin 1.1 H D AST 27 ALT 16 Alkaline Phosphatase 124 H Creatine Kinase Troponin I B-Natriuretic Peptide Total Protein 7.0 Albumin 2.9 L Carcinoembryonic Ag CA 19-9 Antigen CA 125 Antigen Pleural Fluid Source Pleural Color Pleural Appearance Pleural WBC Pleural RBC Pleural Neutrophils Pleural Lymphocytes Pleural Monocytes Pleural Eosinophils Pleural Macrophages Pleural Mesothelial Pleural Chloride Pleural Total Protein Pleural Albumin Pleural LDH Pleural Glucose Pleural Amylase Pleural Cholesterol Pleural Triglycerides 09/12/16 09/12/16 09/12/16 05:39 16:31 21:07 WBC RBC Hgb Hct MCV MCHC RDW Plt Count MPV Neutrophils % Lymphocytes % Monocytes % Eosinophils % Basophils % INR PTT (Actin FS) Sodium Potassium Chloride Carbon Dioxide Anion Gap BUN Creatinine Creat Clearance w eGFR POC Glucometer 176 207 251 Random Glucose Calcium Magnesium Total Bilirubin AST ALT Alkaline Phosphatase Creatine Kinase Troponin I B-Natriuretic Peptide Total Protein Albumin Carcinoembryonic Ag CA 19-9 Antigen CA 125 Antigen Pleural Fluid Source Pleural Color Pleural Appearance Pleural WBC Pleural RBC Pleural Neutrophils Pleural Lymphocytes Pleural Monocytes Pleural Eosinophils Pleural Macrophages Pleural Mesothelial Pleural Chloride Pleural Total Protein Pleural Albumin Pleural LDH Pleural Glucose Pleural Amylase Pleural Cholesterol Pleural Triglycerides 09/13/16 09/13/16 09/13/16 05:46 06:40 11:33 WBC RBC Hgb Hct MCV MCHC RDW Plt Count MPV Neutrophils % Lymphocytes % Monocytes % Eosinophils % Basophils % INR PTT (Actin FS) Sodium 136 Potassium 4.5 Chloride 98 Carbon Dioxide 26 Anion Gap 12 BUN 12 Creatinine 1.0 Creat Clearance w eGFR 56.37 POC Glucometer 190 226 Random Glucose 212 H Calcium 9.2 Magnesium 2.2 Total Bilirubin 0.7 D AST 25 ALT 17 Alkaline Phosphatase 117 Creatine Kinase Troponin I B-Natriuretic Peptide Total Protein 6.9 Albumin 2.8 L Carcinoembryonic Ag CA 19-9 Antigen CA 125 Antigen Pleural Fluid Source Pleural Color Pleural Appearance Pleural WBC Pleural RBC Pleural Neutrophils Pleural Lymphocytes Pleural Monocytes Pleural Eosinophils Pleural Macrophages Pleural Mesothelial Pleural Chloride Pleural Total Protein Pleural Albumin Pleural LDH Pleural Glucose Pleural Amylase Pleural Cholesterol Pleural Triglycerides 09/13/16 09/13/16 09/14/16 16:53 21:09 05:42 WBC RBC Hgb Hct MCV MCHC RDW Plt Count MPV Neutrophils % Lymphocytes % Monocytes % Eosinophils % Basophils % INR PTT (Actin FS) Sodium Potassium Chloride Carbon Dioxide Anion Gap BUN Creatinine Creat Clearance w eGFR POC Glucometer 205 186 217 Random Glucose Calcium Magnesium Total Bilirubin AST ALT Alkaline Phosphatase Creatine Kinase Troponin I B-Natriuretic Peptide Total Protein Albumin Carcinoembryonic Ag CA 19-9 Antigen CA 125 Antigen Pleural Fluid Source Pleural Color Pleural Appearance Pleural WBC Pleural RBC Pleural Neutrophils Pleural Lymphocytes Pleural Monocytes Pleural Eosinophils Pleural Macrophages Pleural Mesothelial Pleural Chloride Pleural Total Protein Pleural Albumin Pleural LDH Pleural Glucose Pleural Amylase Pleural Cholesterol Pleural Triglycerides 09/14/16 07:10 WBC 5.4 RBC 5.12 Hgb 12.7 Hct 39.3 MCV 76.8 L MCHC 32.3 RDW 16.7 H Plt Count 214 MPV 9.8 Neutrophils % Lymphocytes % Monocytes % Eosinophils % Basophils % INR PTT (Actin FS) Sodium Potassium Chloride Carbon Dioxide Anion Gap BUN Creatinine Creat Clearance w eGFR POC Glucometer Random Glucose Calcium Magnesium Total Bilirubin AST ALT Alkaline Phosphatase Creatine Kinase Troponin I B-Natriuretic Peptide Total Protein Albumin Carcinoembryonic Ag CA 19-9 Antigen CA 125 Antigen Pleural Fluid Source Pleural Color Pleural Appearance Pleural WBC Pleural RBC Pleural Neutrophils Pleural Lymphocytes Pleural Monocytes Pleural Eosinophils Pleural Macrophages Pleural Mesothelial Pleural Chloride Pleural Total Protein Pleural Albumin Pleural LDH Pleural Glucose Pleural Amylase Pleural Cholesterol Pleural Triglycerides Imaging - Results Chest X-ray: Image Reviewed EKG: Image Reviewed (af rep abn) Problem List - Problems (1) A-fib Code(s): I48.91 - UNSPECIFIED ATRIAL FIBRILLATION (2) Acute dyspnea Code(s): R06.00 - DYSPNEA, UNSPECIFIED (3) Acute renal insufficiency Code(s): N28.9 - DISORDER OF KIDNEY AND URETER, UNSPECIFIED (4) CHF exacerbation Code(s): I50.9 - HEART FAILURE, UNSPECIFIED (5) Cellulitis Code(s): L03.90 - CELLULITIS, UNSPECIFIED Qualifiers: Site of cellulitis: extremity Site of cellulitis of extremity: lower extremity Laterality: left Qualified Code(s): L03.116 - Cellulitis of left lower limb (6) HTN (hypertension) Code(s): I10 - ESSENTIAL (PRIMARY) HYPERTENSION (7) Morbidly obese Code(s): E66.01 - MORBID (SEVERE) OBESITY DUE TO EXCESS CALORIES (8) Pleural effusion Code(s): J90 - PLEURAL EFFUSION, NOT ELSEWHERE CLASSIFIED (9) Pulmonary nodules/lesions, multiple Code(s): R91.8 - OTHER NONSPECIFIC ABNORMAL FINDING OF LUNG FIELD (10) Supratherapeutic INR Code(s): R79.1 - ABNORMAL COAGULATION PROFILE (11) Hypothyroid Code(s): E03.9 - HYPOTHYROIDISM, UNSPECIFIED (12) Lymphedema Code(s): I89.0 - LYMPHEDEMA, NOT ELSEWHERE CLASSIFIED (13) Hematuria Code(s): R31.9 - HEMATURIA, UNSPECIFIED Assessment/Plan Bilateral lung nodules with exudative left pleural effusion - s/p thoracentesis 09/09 - 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
[2016-09-13] MEDS: ATORVASTATIN CA 20 MG TABLET (FP) PO SCH (22:24)
[2016-09-13] MEDS: MONTELUKAST NA 10 MG TABLET PO SCH (22:24)
--- NOTE | 2016-09-13 23:27 | CONSULT ---
Consult - text type - Consultation Consultation Note: The patient is a 61 year old female, with a significant past medical history of MORBID OBESITY, Hypertension (on Cardizem), AFIB, diabetes, CHF, COPD, GERD and hypothyroidism, who presents to the emergency department with SOB for few days. Patient denies any new leg swelling. Patient reports orthopnea and states that she sleeps with [address] scans done which showed innumerable no. of pulmonary nodules s/o mets , pleural effusions and 2 liver lesions. Thoracentsis showed involvement with adnoca of mullerian origin. Biopsy of liverlesions is pending. PAtient is back at baseline currently - Past Medical History Cardiac Disorders: Yes (ARRHYTHMIA, A-FIB) COPD: Yes, O2 dependent Diabetes: Yes GI Disorders: Yes (GERD) HTN: Yes Hypercholesterolemia: Yes Thyroid Disease: Yes (HYPOTHYROID) h/o cellulitis, SURY - Psycho/Social/Smoking Cessation Hx never smoked - Past Medical History Allergies/Adverse Reactions: Allergies Allergy/AdvReac Type Severity Reaction Status Date / Time No Known Allergies Allergy Verified 09/08/16 18:05 Home Medications: Ambulatory Orders Ferrous Sulfate 325 mg PO DAILY 10/17/12 Insuln Asp Prt/Insulin Aspart [Novolog Mix 70-30 Flexpen Syrn] 35 unit SQ BID Levothyroxine [Synthroid -] 75 mcg PO DAILY 10/17/12 Loratadine [Claritin -] 10 mg PO DAILY 10/17/12 Losartan Potassium 50 mg PO DAILY 10/17/12 Metformin HCl [Glucophage] 1,000 mg PO BID 10/17/12 Montelukast Na [Singulair -] 10 mg PO HS 10/17/12 [place]-3 Acid Ethyl Esters [Lovaza -] 1,000 mg PO TID 10/17/12 Potassium Chloride 10 meq PO DAILY 10/17/12 Ranitidine [Zantac -] 150 mg PO BID 10/17/12 Simvastatin [Zocor -] 40 mg PO HS 10/17/12 Tiotropium [place] [Spiriva] 1 inh IH DAILY 10/17/12 Warfarin Sodium [Coumadin] 5 mg PO DAILY 10/17/12 Calcium Carbonate/Vitamin D3 [Oyster Shell Calcium-Vit D Tab] 1 each PO DAILY Diltiazem Cd [Cardizem Cd -] 300 mg PO DAILY 09/08/16 Sennosides [Senna] 8.6 mg PO PRN 09/08/16 Spironolactone 60 mg PO DAILY 09/08/16 - Vital Signs AFVSS MOrbid obesity GENERAL: Awake, alert, and fully oriented, in no acute distress LUNGS: (+)Left lower lung field decreased breath sounds. No wheezes, and no crackles HEART: (+)Afib, irregularly irregular rhythm with normal rate. Normal S1 and S2 , no murmurs, rubs or gallops ABDOMEN: (+)Morbidly obese. Soft, nontender, normoactive bowel sounds. No guarding, no rebound. No masses EXTREMITIES: (+)bilateral pedal edema. NEUROLOGICAL: Cranial nerves II through XII grossly intact. Normal speech. Labs reviewed, A/P 61 y/o patient with morbid obesity, HTN, DM, O2 dependent COPD, CHF, come in with worsening SoB. CT showed multiple pulmonary nodules s/o mets, pleural effusion, LT. few liver lesions. Pleural fluid cytology s/o adnoca of mullerian origin Patient had post menopausal bleeding a few months ago. TV U/S --prominent uterus/fibroids and cervical cyst Discussed at length with daughters and patient , diagnosis, staging, chemotherpay, side effects of carbo/taxol. all complications, need for port-acth check hip rt. /LS spine CT given pain Check cardiology consult Home O2 evaluation certified social workers in health care consult will follow
[2016-09-14] MEDS: INSULIN SLIDING SCALE (NOVOLOG) 1 VIAL SQ SCH ×4 (06:10→22:22)
[2016-09-14] MEDS: OMEGA-3 ACID ETHYL ESTERS (FATTY-ACIDS) 1 GM CAPSULE (FP) PO SCH ×3 (06:10→21:13)
[2016-09-14] MEDS: LEVOTHYROXINE NA 75 MCG TABLET (FP) PO SCH (06:10)
[2016-09-14 08:24] LABS: MCH 24.8 pg (25.7-33.7); MCHC 32.3 g/dl (32.0-36.0); MEAN CELL VOLUME 76.8 fl (80-96); MEAN PLT VOLUME 9.8 fl (7.5-11.1); PLATELET COUNT 214 K/MM3 (134-434); RDW 16.7 % (11.6-15.6); WHITE BLOOD COUNT 5.4 K/mm3 (4.0-10.0)
--- NOTE | 2016-09-14 09:37 | PN ---
Progress Note, Physician History of Present Illness: The patient is a 61 year old female, with a significant past medical history of Hypertension (on Cardizem), AFIB, diabetes, CHF, COPD, GERD and hypothyroidism , who presents to the emergency department on with SOB for few days. Patient saw her PMD 2 days ago with the same complaint who was supposed to prescribe her breathing treatment pumps, but patient states that the pumps were never sent by her doctor which prompted her to present to the ED. Patient denies any new leg swelling. Patient reports orthopnea and states that she sleeps with 2 pillows. She notes that she is cold but denies any fever. She reports normal bowel movements. Duringh hospital course she was diagnosed with; 1. 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 Permanent atrial fibrillation - Continue Cardizem CD for rate control - Continue Coumadin 3. Hypomagnesemia - Improved 4. Morbid obesity with BMI 62.4 5. Hypothyroidism - Continue Synthroid 6. Type 2 DM - Continue Novolog sliding scale 7. HTN - Continue Cardizem - Cozaar, Aldactone held secondary to low BP and increasing creatinine 8. Hyperlipidemia - Continue Lipitor, Lovaza 9. COPD - Continue Tudorza, Singulair, Albuterol as needed 10. Chronic systolic heart failure - Cozaar, Aldactone held secondary to low BP - Current Medication List Current Medications: Active Medications Aclidinium [place] (Tudorza -) 1 puff IH BID [facility] Last Admin: 09/13/16 22:23 Dose: 1 puff Albuterol Sulfate (Ventolin 0.083% Nebulizer Soln -) 1 amp NEB Q4H PRN PRN Reason: SHORT OF BREATH/WHEEZING Last Admin: 09/12/16 19:03 Dose: 1 amp Atorvastatin Calcium (Lipitor -) 20 mg PO HS [facility] Last Admin: 09/13/16 22:24 Dose: 20 mg Diltiazem HCl (Cardizem Cd -) 300 mg PO DAILY [facility] Last Admin: 09/13/16 09:07 Dose: 300 mg Ferrous Sulfate (Feosol -) 325 mg PO DAILY [facility] Last Admin: 09/13/16 09:04 Dose: 325 mg Guaifenesin (Diabetic Tussin Dm -) 5 ml PO Q6H PRN PRN Reason: COUGH Insulin Aspart (Novolog Vial Sliding Scale -) 1 vial SQ ACHS [facility] PRN Reason: Protocol Last Admin: 09/14/16 06:10 Dose: 2 units Levothyroxine Sodium (Synthroid -) 75 mcg PO DAILY@0700 [facility] Last Admin: 09/14/16 06:10 Dose: 75 mcg Loratadine (Claritin -) 10 mg PO DAILY [facility] Last Admin: 09/13/16 09:04 Dose: 10 mg Montelukast Sodium (Singulair -) 10 mg PO HS [facility] Last Admin: 09/13/16 22:24 Dose: 10 mg [id number]-[id number] Ethyl Esters (Lovaza -) 1 gm PO TID [facility] Last Admin: 09/14/16 06:10 Dose: 1 gm Ondansetron HCl (Zofran -) 8 mg PO Q4H PRN PRN Reason: NAUSEA AND/OR VOMITING Potassium Chloride (Potassium Chloride Oral Liquid) 10 meq PO DAILY [facility] Last Admin: 09/13/16 09:04 Dose: 10 meq Ranitidine HCl (Zantac -) 150 mg PO BID [facility] Last Admin: 09/13/16 22:24 Dose: 150 mg Senna (Senna -) 1 tab PO DAILY PRN Warfarin Sodium (Coumadin -) 5 mg PO DAILY@1800 [facility] Last Admin: 09/13/16 17:07 Dose: 5 mg - Objective Vital Signs: Vital Signs Temperature 97.7 F 09/14/16 05:35 Pulse Rate 83 09/14/16 05:35 Respiratory Rate 18 09/14/16 05:35 Blood Pressure 108/56 09/14/16 05:35 O2 Sat by Pulse Oximetry (%) 91 L 09/13/16 21:00 Eyes: Yes: WNL, Conjunctiva Clear, EOM Intact HENT: Yes: WNL, Atraumatic, Normocephalic Neck: Yes: WNL, Supple, Trachea Midline Cardiovascular: Yes: Pulse Irregular, S1, S2 Respiratory: Yes: WNL, Regular, Wheezes Gastrointestinal: Yes: WNL, Normal Bowel Sounds Genitourinary: Yes: WNL Musculoskeletal: Yes: WNL Extremities: Yes: WNL Edema: Yes Integumentary: Yes: WNL Neurological: Yes: WNL, Alert, Oriented ...Motor Strength: WNL Psychiatric: Yes: WNL Labs: CBC, BMP 09/14/16 07:10 INR, PTT INR 1.20 (0.82-1.09) H 09/12/16 05:35 Problem List - Problems (1) A-fib Code(s): I48.91 - UNSPECIFIED ATRIAL FIBRILLATION (2) Acute dyspnea Code(s): R06.00 - DYSPNEA, UNSPECIFIED (3) Acute renal insufficiency Code(s): N28.9 - DISORDER OF KIDNEY AND URETER, UNSPECIFIED (4) CHF exacerbation Code(s): I50.9 - HEART FAILURE, UNSPECIFIED (5) Cellulitis Code(s): L03.90 - CELLULITIS, UNSPECIFIED Qualifiers: Site of cellulitis: extremity Site of cellulitis of extremity: lower extremity Laterality: left Qualified Code(s): L03.116 - Cellulitis of left lower limb (6) HTN (hypertension) Code(s): I10 - ESSENTIAL (PRIMARY) HYPERTENSION (7) Morbidly obese Code(s): E66.01 - MORBID (SEVERE) OBESITY DUE TO EXCESS CALORIES (8) Pleural effusion Code(s): J90 - PLEURAL EFFUSION, NOT ELSEWHERE CLASSIFIED (9) Pulmonary nodules/lesions, multiple Code(s): R91.8 - OTHER NONSPECIFIC ABNORMAL FINDING OF LUNG FIELD (10) Supratherapeutic INR Code(s): R79.1 - ABNORMAL COAGULATION PROFILE (11) Hypothyroid Code(s): E03.9 - HYPOTHYROIDISM, UNSPECIFIED (12) Lymphedema Code(s): I89.0 - LYMPHEDEMA, NOT ELSEWHERE CLASSIFIED (13) Hematuria Code(s): R31.9 - HEMATURIA, UNSPECIFIED Assessment/Plan Bilateral lung nodules with exudative left pleural effusion - s/p thoracentesis 09/09 - 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
[2016-09-14 09:41] LABS: INR 1.22 (0.82-1.09); PROTHROMBIN TIME (PATIENT) 13.5 SEC (9.98-11.88)
[2016-09-14] MEDS ORDERED: PT OWN MED DRAWER 7, Y5N ONE ×4 (09:51→20:57)
[2016-09-14 10:25] LABS: CALCIUM 9.7 mg/dL (8.5-10.1); COCKROFT - GAULT 158.236
[2016-09-14] MEDS: POTASSIUM CHLORIDE ORAL LIQUID 20 MEQ/15 ML PO SCH (11:48)
[2016-09-14] MEDS: ONDANSETRON 8 MG TABLET (FP) PO PRN (11:49)
[2016-09-14] MEDS: LORATADINE 10 MG TABLET PO SCH (11:50)
[2016-09-14] MEDS: FERROUS SO4 325 MG TABLET (FP) PO SCH (11:50)
[2016-09-14] MEDS: RANITIDINE HCL 150 MG TABLET (FP) PO SCH ×2 (11:50→21:13)
[2016-09-14] MEDS: ACLIDINIUM BROMIDE 400 MCG/INH AERO.POWD IH SCH ×2 (11:53→21:13)
--- NOTE | 2016-09-14 12:06 | PN ---
Teaching Attending Note Name of Resident: Natasha Hodge ATTENDING PHYSICIAN STATEMENT I saw and evaluated the patient. I reviewed the resident's note and discussed the case with the resident. I agree with the resident's findings and plan as documented. SUBJECTIVE: No complaints. OBJECTIVE: Vital Signs Period Temp Pulse Resp BP Sys/Dinero Pulse Ox Last 24 Hr 97.1 F-98.1 F 71-123 16-20 108-132/56-63 91-95 ASSESSMENT AND PLAN: HEART: Irregularly irregular LUNGS: Clear with decreased breath sounds at left base ABDOMEN: Obese, soft, non-tender, non-distended, normal BS EXTREMITIES: Lymphedema with venous stasis changes ASSESSMENT AND PLAN: This is a 61-year-old woman with a history of HTN, atrial fib, hypothyroidism, COPD, type 2 DM and morbid obesity who presented to the ER for dyspnea on exertion. 1. 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 Permanent atrial fibrillation - Continue Cardizem CD for rate control - Continue Coumadin 3. Hypomagnesemia - Improved 4. Morbid obesity with BMI 62.2 5. Hypothyroidism - Continue Synthroid 6. Type 2 DM - Continue Novolog sliding scale 7. HTN - Continue Cardizem - Cozaar, Aldactone held secondary to low BP and increasing creatinine 8. Hyperlipidemia - Continue Lipitor, Lovaza 9. COPD - Continue Tudorza, Singulair, Albuterol as needed 10. Chronic systolic heart failure - Cozaar, Aldactone held secondary to low BP
--- NOTE | 2016-09-14 13:35 | PN ---
Progress Note (short form) - Note Progress Note: Resting in NAD on RA. Breathing feels OK today. Intake & Output 09/11/16 09/12/16 09/13/16 09/14/16 23:59 23:59 23:59 23:59 Intake Total 1170 410 800 250 Balance 1170 410 800 250 Weight 372 lb 2 oz 373 lb 1 oz 375 lb 2 oz 374 lb 1 oz Last Vital Signs Temp Pulse Resp BP Pulse Ox 97.7 F 123 H 18 108/56 95 09/14/16 05:35 09/14/16 11:00 09/14/16 05:35 09/14/16 05:35 09/14/16 11:00 Active Medications Aclidinium [place] (Tudorza -) 1 puff IH BID [facility] Last Admin: 09/14/16 11:53 Dose: 1 puff Albuterol Sulfate (Ventolin 0.083% Nebulizer Soln -) 1 amp NEB Q4H PRN PRN Reason: SHORT OF BREATH/WHEEZING Last Admin: 09/12/16 19:03 Dose: 1 amp Atorvastatin Calcium (Lipitor -) 20 mg PO HS [facility] Last Admin: 09/13/16 22:24 Dose: 20 mg Diltiazem HCl (Cardizem Cd -) 300 mg PO DAILY [facility] Last Admin: 09/14/16 11:51 Dose: 300 mg Ferrous Sulfate (Feosol -) 325 mg PO DAILY [facility] Last Admin: 09/14/16 11:50 Dose: 325 mg Guaifenesin (Diabetic Tussin Dm -) 5 ml PO Q6H PRN PRN Reason: COUGH Insulin Aspart (Novolog Vial Sliding Scale -) 1 vial SQ ACHS [facility] PRN Reason: Protocol Last Admin: 09/14/16 12:45 Dose: 4 units Levothyroxine Sodium (Synthroid -) 75 mcg PO DAILY@0700 [facility] Last Admin: 09/14/16 06:10 Dose: 75 mcg Loratadine (Claritin -) 10 mg PO DAILY [facility] Last Admin: 09/14/16 11:50 Dose: 10 mg Montelukast Sodium (Singulair -) 10 mg PO HS [facility] Last Admin: 09/13/16 22:24 Dose: 10 mg Jedsz-7-Bkoy Ethyl Esters (Lovaza -) 1 gm PO TID [facility] Last Admin: 09/14/16 06:10 Dose: 1 gm Ondansetron HCl (Zofran -) 8 mg PO Q4H PRN PRN Reason: NAUSEA AND/OR VOMITING Last Admin: 09/14/16 11:49 Dose: 8 mg Potassium Chloride (Potassium Chloride Oral Liquid) 10 meq PO DAILY [facility] Last Admin: 09/14/16 11:48 Dose: 10 meq Ranitidine HCl (Zantac -) 150 mg PO BID [facility] Last Admin: 09/14/16 11:50 Dose: 150 mg Senna (Senna -) 1 tab PO DAILY PRN Warfarin Sodium (Coumadin -) 5 mg PO DAILY@1800 [facility] Last Admin: 09/13/16 17:07 Dose: 5 mg Constitutional: Yes: NAD Eyes: Yes: WNL HENT: Yes: WNL Neck: Yes: Supple Cardiovascular: Yes: Pulse Irregular, S1, S2 Respiratory: decreased BS at the bases, no wheezing Extremities: Yes: WNL Edema: Yes Labs: Laboratory Results - last 24 hr 09/13/16 09/13/16 09/14/16 16:53 21:09 05:42 WBC RBC Hgb Hct MCV MCHC RDW Plt Count MPV INR Sodium Potassium Chloride Carbon Dioxide Anion Gap BUN Creatinine POC Glucometer 205 186 217 Random Glucose Calcium 09/14/16 09/14/16 09/14/16 07:10 07:10 07:10 WBC 5.4 RBC 5.12 Hgb 12.7 Hct 39.3 MCV 76.8 L MCHC 32.3 RDW 16.7 H Plt Count 214 MPV 9.8 INR 1.22 H Sodium 133 L Potassium 4.3 Chloride 99 Carbon Dioxide 22 Anion Gap 12 BUN 12 Creatinine 1.0 POC Glucometer Random Glucose 214 H Calcium 9.7 09/14/16 12:10 WBC RBC Hgb Hct MCV MCHC RDW Plt Count MPV INR Sodium Potassium Chloride Carbon Dioxide Anion Gap BUN Creatinine POC Glucometer 258 Random Glucose Calcium Problem List - Problems (1) A-fib Code(s): I48.91 - UNSPECIFIED ATRIAL FIBRILLATION (2) Acute dyspnea Code(s): R06.00 - DYSPNEA, UNSPECIFIED (3) HTN (hypertension) Code(s): I10 - ESSENTIAL (PRIMARY) HYPERTENSION (4) Morbidly obese Code(s): E66.01 - MORBID (SEVERE) OBESITY DUE TO EXCESS CALORIES (5) Pleural effusion Code(s): J90 - PLEURAL EFFUSION, NOT ELSEWHERE CLASSIFIED (6) Hypothyroid Code(s): E03.9 - HYPOTHYROIDISM, UNSPECIFIED (7) Lymphedema Code(s): I89.0 - LYMPHEDEMA, NOT ELSEWHERE CLASSIFIED (8) Pulmonary nodules/lesions, multiple Code(s): R91.8 - OTHER NONSPECIFIC ABNORMAL FINDING OF LUNG FIELD Assessment/Plan IMP DYSPNEA IMPROVED LARGE LEFT PLEURAL EFFUSION 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
--- NOTE | 2016-09-14 15:45 | PN ---
Physical Exam: SUBJECTIVE: Patient seen and examined by me at bedside. No overnight events noted. Patient reports her cough and breathing is better today. She has no complaints and denies fever, chills, nausea, vomiting, abdominal pain, chest pain, palpitations, shortness of breath. OBJECTIVE: Vital Signs Period Temp Pulse Resp BP Sys/Dinero Pulse Ox Last 24 Hr 97.1 F-97.9 F 71-123 17-20 108-132/56-72 91-95 GENERAL: The patient is awake, alert, and fully oriented, in no acute distress. LUNGS: CTA bilaterally with no crackles or wheezes. HEART: Irregularly irregular, normal S1 and S2 without murmur, rub or gallop. ABDOMEN: Soft, Obese, nontender, nondistended, normoactive bowel sounds. EXTREMITIES: B/L lower extremity chronic venous changes with lymphedema and scaly dry skin. Laboratory Results - last 24 hr 09/13/16 09/13/16 09/14/16 16:53 21:09 05:42 WBC RBC Hgb Hct MCV MCHC RDW Plt Count MPV INR Sodium Potassium Chloride Carbon Dioxide Anion Gap BUN Creatinine POC Glucometer 205 186 217 Random Glucose Calcium 09/14/16 09/14/16 09/14/16 07:10 07:10 07:10 WBC 5.4 RBC 5.12 Hgb 12.7 Hct 39.3 MCV 76.8 L MCHC 32.3 RDW 16.7 H Plt Count 214 MPV 9.8 INR 1.22 H Sodium 133 L Potassium 4.3 Chloride 99 Carbon Dioxide 22 Anion Gap 12 BUN 12 Creatinine 1.0 POC Glucometer Random Glucose 214 H Calcium 9.7 09/14/16 12:10 WBC RBC Hgb Hct MCV MCHC RDW Plt Count MPV INR Sodium Potassium Chloride Carbon Dioxide Anion Gap BUN Creatinine POC Glucometer 258 Random Glucose Calcium Active Medications Generic Name Dose Route Start Last Admin Trade Name Freq PRN Reason Stop Dose Admin Aclidinium [place] 1 puff 09/09/16 10:00 09/14/16 11:53 Tudorza - IH 1 puff BID [facility] Administration Albuterol Sulfate 1 amp 09/08/16 21:38 09/12/16 19:03 Ventolin 0.083% Nebulizer Soln - NEB 1 amp Q4H PRN Administration SHORT OF BREATH/WHEEZING Atorvastatin Calcium 20 mg 09/09/16 22:00 09/13/16 22:24 Lipitor - PO 20 mg HS [facility] Administration Diltiazem HCl 300 mg 09/09/16 10:00 09/14/16 11:51 Cardizem Cd - PO 300 mg DAILY [facility] Administration Ferrous Sulfate 325 mg 09/09/16 10:00 09/14/16 11:50 Feosol - PO 325 mg DAILY [facility] Administration Guaifenesin 5 ml 09/12/16 18:46 Diabetic Tussin Dm - PO Q6H PRN COUGH Insulin Aspart 1 vial 09/09/16 14:21 09/14/16 12:45 Novolog Vial Sliding Scale - SQ 4 units ACHS [facility] Administration Protocol Levothyroxine Sodium 75 mcg 09/09/16 07:00 09/14/16 06:10 Synthroid - PO 75 mcg DAILY@0700 [facility] Administration Loratadine 10 mg 09/09/16 10:00 09/14/16 11:50 Claritin - PO 10 mg DAILY [facility] Administration Montelukast Sodium 10 mg 09/09/16 22:00 09/13/16 22:24 Singulair - PO 10 mg HS [facility] Administration [id number]-7-Mndl Ethyl Esters 1 gm 09/09/16 06:00 09/14/16 14:09 Lovaza - PO 1 gm TID [facility] Administration Ondansetron HCl 8 mg 09/13/16 11:14 09/14/16 11:49 Zofran - PO 8 mg Q4H PRN Administration NAUSEA AND/OR VOMITING Potassium Chloride 10 meq 09/09/16 10:00 09/14/16 11:48 Potassium Chloride Oral Liquid PO 10 meq DAILY [facility] Administration Ranitidine HCl 150 mg 09/09/16 10:00 09/14/16 11:50 Zantac - PO 150 mg BID [facility] Administration Senna 1 tab 09/08/16 22:45 Senna - PO DAILY PRN Warfarin Sodium 5 mg 09/13/16 18:00 09/13/16 17:07 Coumadin - PO 5 mg DAILY@1800 [facility] Administration Images: Chest X-ray (09/08/16): Moderate left pleural effusion with compressive atelectasis. Multiple lung nodules - lung metastasis. Chest CT w/ Contrast (09/08/16): Innumerable bilateral pulmonary nodules, moderate to large left pleural effusion, and mediastinal and hilar lymphadenopathy are highly suspicious for metastatic disease. 2.9 cm hypodense mass is seen in the left lobe of the liver. Thoracocentesis under U/S guide (09/09/16) Chest X-ray (09/09/16): Decreased Pleural Effusion. No Pneumothorax seen. CT Abdomen and pelvis (09/10/16): CT abd/pelvis shows multiple metastatic pulmonary nodules, moderate left pleural effusion, hypodense left hepatic lobe mass, possible hypodense right hepatic lobe mass, diverticulosis ASSESSMENT/PLAN: Patient is a 61 year old female with PMHx of HTN, A.fib on Coumadin, DMII, CHF, COPD, GERD and hypothyroidism who presented for dyspnea and was found to have a large left pleural effusion with multiple nodules on chest x-ray. Patient admitted for further monitoring and management. Dyspnea Likely Secondary to Left Sided Pleural Effusion with B/L Pulmonary Nodules -Secondary to malignancy -S/P thoracentesis 09/09/16 and cytology was positive for malignant cells. Involvement by Adenocarcinoma, most consistent with Mullerian origin -S/P liver biopsy 09/12/16 -Continue O2 PRN -Albuterol PRN -Pulmonology consult appreciated -Oncology consult appreciated. -CT of the L-spine, T-spine, and pelvis taken with final report pending -Cardiology consult placed before placing a port-cath for chemo Anticholinergic Syndrome- Resolved -Will continue to monitor Asthma/COPD -No history of smoking -Continue with Albuterol PRN -Tudorza/Spiriva discontinued due to Anticholinergic syndrome -Pulmonology consult appreciated Hypomagnesemia-resolved -Will continue to monitor Atrial Fibrillation -Continue Coumadin 5mg -Continue Diltiazem Cd 300mg daily -Continue to monitor PT Systolic CHF- Chronic -No acute exacerbation at the time -BNP 441 -Daily weight -Hold lasix for hypotension -Hold Spironolactone due to hypotension -ECHO done and no global hypokinesis DMII -BGM ACHS -Novolog sliding scale HTN -Hypotensive -Hold Losartan 50mg daily -Hold Lasix -Hold Aldactone -Continue to monitor BP HLD -Continue Lipitor 20mg Hypothyroidism -Continue Levothyroxine 75mcg daily GERD -Continue Ranitidine 150mg BID Morbid Obesity -Bariatric referral as outpatient F/E/N -On no fluids -Electrolytes wnl -Diabetic diet Prophylaxis -Coumadin 5mg for DVT Disposition -Cytology shows malignancy by adenocarcinoma, likely Mullerian origin. Waiting for biopsy results and patient will begin chemo, as per oncology Visit type - Emergency Visit Emergency Visit: Yes ED Registration Date: 09/08/16 Care time: The patient presented to the Emergency Department on the above date and was hospitalized for further evaluation of their emergent condition. - New Patient This patient is new to me today: No - Critical Care Critical Care patient: No
[2016-09-14] MEDS: WARFARIN NA 5 MG TABLET (UD) PO SCH (17:56)
[2016-09-14] MEDS: ALBUTEROL SO4 0.083% IH SOL 2.5 MG/3 ML VIAL.NEB. NEB PRN (20:25)
[2016-09-14] MEDS: ATORVASTATIN CA 20 MG TABLET (FP) PO SCH (21:13)
[2016-09-14] MEDS: MONTELUKAST NA 10 MG TABLET PO SCH (21:13)
[2016-09-15] MEDS: OMEGA-3 ACID ETHYL ESTERS (FATTY-ACIDS) 1 GM CAPSULE (FP) PO SCH ×3 (06:19→21:35)
[2016-09-15] MEDS: LEVOTHYROXINE NA 75 MCG TABLET (FP) PO SCH (06:19)
[2016-09-15] MEDS: INSULIN SLIDING SCALE (NOVOLOG) 1 VIAL SQ SCH ×4 (06:20→21:41)
[2016-09-15 08:52] LABS: INR 1.4 (0.82-1.09); PROTHROMBIN TIME (PATIENT) 15.5 SEC (9.98-11.88)
[2016-09-15 09:06] LABS: CALCIUM 9.8 mg/dL (8.5-10.1); COCKROFT - GAULT 158.355
--- NOTE | 2016-09-15 09:18 | PN ---
Progress Note, Physician History of Present Illness: The patient is a 61 year old female, with a significant past medical history of Hypertension (on Cardizem), AFIB, diabetes, CHF, COPD, GERD and hypothyroidism , who presents to the emergency department on with SOB for few days. Patient saw her PMD 2 days ago with the same complaint who was supposed to prescribe her breathing treatment pumps, but patient states that the pumps were never sent by her doctor which prompted her to present to the ED. Patient denies any new leg swelling. Patient reports orthopnea and states that she sleeps with 2 pillows. She notes that she is cold but denies any fever. She reports normal bowel movements. Duringh hospital course she was diagnosed with; 1. 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 Permanent atrial fibrillation - Continue Cardizem CD for rate control - Continue Coumadin 3. Hypomagnesemia - Improved 4. Morbid obesity with BMI 62.4 5. Hypothyroidism - Continue Synthroid 6. Type 2 DM - Continue Novolog sliding scale 7. HTN - Continue Cardizem - Cozaar, Aldactone held secondary to low BP and increasing creatinine 8. Hyperlipidemia - Continue Lipitor, Lovaza 9. COPD - Continue Tudorza, Singulair, Albuterol as needed 10. Chronic systolic heart failure - Cozaar, Aldactone held secondary to low BP - Current Medication List Current Medications: Active Medications Aclidinium [place] (Tudorza -) 1 puff IH BID [facility] Last Admin: 09/14/16 21:13 Dose: 1 puff Albuterol Sulfate (Ventolin 0.083% Nebulizer Soln -) 1 amp NEB Q4H PRN PRN Reason: SHORT OF BREATH/WHEEZING Last Admin: 09/14/16 20:25 Dose: 1 amp Atorvastatin Calcium (Lipitor -) 20 mg PO HS [facility] Last Admin: 09/14/16 21:13 Dose: 20 mg Diltiazem HCl (Cardizem Cd -) 300 mg PO DAILY [facility] Last Admin: 09/14/16 11:51 Dose: 300 mg Ferrous Sulfate (Feosol -) 325 mg PO DAILY [facility] Last Admin: 09/14/16 11:50 Dose: 325 mg Guaifenesin (Diabetic Tussin Dm -) 5 ml PO Q6H PRN PRN Reason: COUGH Insulin Aspart (Novolog Vial Sliding Scale -) 1 vial SQ ACHS [facility] PRN Reason: Protocol Last Admin: 09/15/16 06:20 Dose: 2 units Levothyroxine Sodium (Synthroid -) 75 mcg PO DAILY@0700 [facility] Last Admin: 09/15/16 06:19 Dose: 75 mcg Loratadine (Claritin -) 10 mg PO DAILY [facility] Last Admin: 09/14/16 11:50 Dose: 10 mg Montelukast Sodium (Singulair -) 10 mg PO HS [facility] Last Admin: 09/14/16 21:13 Dose: 10 mg Ecnnm-0-Hzps Ethyl Esters (Lovaza -) 1 gm PO TID [facility] Last Admin: 09/15/16 06:19 Dose: 1 gm Ondansetron HCl (Zofran -) 8 mg PO Q4H PRN PRN Reason: NAUSEA AND/OR VOMITING Last Admin: 09/14/16 11:49 Dose: 8 mg Potassium Chloride (Potassium Chloride Oral Liquid) 10 meq PO DAILY [facility] Last Admin: 09/14/16 11:48 Dose: 10 meq Ranitidine HCl (Zantac -) 150 mg PO BID [facility] Last Admin: 09/14/16 21:13 Dose: 150 mg Senna (Senna -) 1 tab PO DAILY PRN Warfarin Sodium (Coumadin -) 5 mg PO DAILY@1800 [facility] Last Admin: 09/14/16 17:56 Dose: 5 mg - Objective Vital Signs: Vital Signs Temperature 97.4 F L 09/15/16 06:00 Pulse Rate 82 09/15/16 06:00 Respiratory Rate 18 09/15/16 06:00 Blood Pressure 142/71 09/15/16 06:00 O2 Sat by Pulse Oximetry (%) 95 09/14/16 21:00 Eyes: Yes: WNL, Conjunctiva Clear, EOM Intact HENT: Yes: WNL, Atraumatic, Normocephalic Neck: Yes: WNL, Supple, Trachea Midline Cardiovascular: Yes: WNL, Regular Rate and Rhythm Respiratory: Yes: WNL, Regular, CTA Bilaterally Gastrointestinal: Yes: WNL, Normal Bowel Sounds Genitourinary: Yes: WNL Musculoskeletal: Yes: WNL Extremities: Yes: WNL Edema: Yes Integumentary: Yes: WNL Neurological: Yes: WNL, Alert, Oriented ...Motor Strength: WNL Psychiatric: Yes: WNL Labs: CBC, BMP 09/14/16 07:10 09/15/16 07:10 INR, PTT INR 1.40 (0.82-1.09) H 09/15/16 07:10 Problem List - Problems (1) A-fib Code(s): I48.91 - UNSPECIFIED ATRIAL FIBRILLATION (2) Acute dyspnea Code(s): R06.00 - DYSPNEA, UNSPECIFIED (3) Acute renal insufficiency Code(s): N28.9 - DISORDER OF KIDNEY AND URETER, UNSPECIFIED (4) CHF exacerbation Code(s): I50.9 - HEART FAILURE, UNSPECIFIED (5) Cellulitis Code(s): L03.90 - CELLULITIS, UNSPECIFIED Qualifiers: Site of cellulitis: extremity Site of cellulitis of extremity: lower extremity Laterality: left Qualified Code(s): L03.116 - Cellulitis of left lower limb (6) HTN (hypertension) Code(s): I10 - ESSENTIAL (PRIMARY) HYPERTENSION (7) Morbidly obese Code(s): E66.01 - MORBID (SEVERE) OBESITY DUE TO EXCESS CALORIES (8) Pleural effusion Code(s): J90 - PLEURAL EFFUSION, NOT ELSEWHERE CLASSIFIED (9) Pulmonary nodules/lesions, multiple Code(s): R91.8 - OTHER NONSPECIFIC ABNORMAL FINDING OF LUNG FIELD (10) Supratherapeutic INR Code(s): R79.1 - ABNORMAL COAGULATION PROFILE (11) Hypothyroid Code(s): E03.9 - HYPOTHYROIDISM, UNSPECIFIED (12) Lymphedema Code(s): I89.0 - LYMPHEDEMA, NOT ELSEWHERE CLASSIFIED (13) Hematuria Code(s): R31.9 - HEMATURIA, UNSPECIFIED Assessment/Plan Bilateral lung nodules with exudative left pleural effusion - s/p thoracentesis 09/09 - 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
[2016-09-15] MEDS: ALBUTEROL SO4 0.083% IH SOL 2.5 MG/3 ML VIAL.NEB. NEB PRN ×2 (09:32→15:09)
[2016-09-15] MEDS: LORATADINE 10 MG TABLET PO SCH (11:34)
[2016-09-15] MEDS: FERROUS SO4 325 MG TABLET (FP) PO SCH (11:34)
[2016-09-15] MEDS: ACLIDINIUM BROMIDE 400 MCG/INH AERO.POWD IH SCH ×2 (11:35→21:35)
[2016-09-15] MEDS: POTASSIUM CHLORIDE ORAL LIQUID 20 MEQ/15 ML PO SCH (11:35)
[2016-09-15] MEDS: RANITIDINE HCL 150 MG TABLET (FP) PO SCH ×2 (11:35→21:35)
[2016-09-15] MEDS: ONDANSETRON 8 MG TABLET (FP) PO PRN (11:36)
--- NOTE | 2016-09-15 14:56 | PN ---
Progress Note (short form) - Note Progress Note: Resting in NAD. No acute events overnight. Breathing feels OK today. Intake & Output 09/12/16 09/13/16 09/14/16 09/15/16 23:59 23:59 23:59 23:59 Intake Total 410 800 350 Balance 410 800 350 Weight 373 lb 1 oz 375 lb 2 oz 374 lb 1 oz 374 lb 8 oz Last Vital Signs Temp Pulse Resp BP Pulse Ox 97.8 F 80 17 114/54 95 09/15/16 14:12 09/15/16 14:12 09/15/16 14:12 09/15/16 14:12 09/14/16 21:00 Active Medications Aclidinium [place] (Tudorza -) 1 puff IH BID [facility] [place] Last Admin: 09/15/16 11:35 Dose: 1 puff Albuterol Sulfate (Ventolin 0.083% Nebulizer Soln -) 1 amp NEB Q4H PRN PRN Reason: SHORT OF BREATH/WHEEZING Last Admin: 09/15/16 09:32 Dose: 1 amp Atorvastatin Calcium (Lipitor -) 20 mg PO HS [facility] [place] Last Admin: 09/14/16 21:13 Dose: 20 mg Diltiazem HCl (Cardizem Cd -) 300 mg PO DAILY [facility] [place] Last Admin: 09/15/16 11:41 Dose: 300 mg Ferrous Sulfate (Feosol -) 325 mg PO DAILY [facility] Last Admin: 09/15/16 11:34 Dose: 325 mg Guaifenesin (Diabetic Tussin Dm -) 5 ml PO Q6H PRN PRN Reason: COUGH Insulin Aspart (Novolog Vial Sliding Scale -) 1 vial SQ ACHS V[facility]GILIO PRN Reason: Protocol Last Admin: 09/15/16 11:37 Dose: 4 units Levothyroxine Sodium (Synthroid -) 75 mcg PO DAILY@0700 [facility] [place] Last Admin: 09/15/16 06:19 Dose: 75 mcg Loratadine (Claritin -) 10 mg PO DAILY [facility] [place] Last Admin: 09/15/16 11:34 Dose: 10 mg Montelukast Sodium (Singulair -) 10 mg PO HS [facility] Last Admin: 09/14/16 21:13 Dose: 10 mg Rcepf-7-[id number] Ethyl Esters (Lovaza -) 1 gm PO TID [facility] Last Admin: 09/15/16 14:34 Dose: 1 gm Ondansetron HCl (Zofran -) 8 mg PO Q4H PRN PRN Reason: NAUSEA AND/OR VOMITING Last Admin: 09/15/16 11:36 Dose: 8 mg Potassium Chloride (Potassium Chloride Oral Liquid) 10 meq PO DAILY [facility] Last Admin: 09/15/16 11:35 Dose: 10 meq Ranitidine HCl (Zantac -) 150 mg PO BID [facility] [place] Last Admin: 09/15/16 11:35 Dose: 150 mg Senna (Senna -) 1 tab PO DAILY PRN Warfarin Sodium (Coumadin -) 5 mg PO DAILY@1800 [facility] [place] Last Admin: 09/14/16 17:56 Dose: 5 mg Constitutional: Yes: NAD Eyes: Yes: WNL HENT: Yes: WNL Neck: Yes: Supple Cardiovascular: Yes: Pulse Irregular, S1, S2 Respiratory: decreased BS at the bases, no wheezing Extremities: Yes: WNL Edema: Yes Labs: Laboratory Results - last 24 hr 09/14/16 09/14/16 09/15/16 17:50 21:10 05:28 INR Sodium Potassium Chloride Carbon Dioxide Anion Gap BUN Creatinine POC Glucometer 207 204 216 Random Glucose Calcium 09/15/16 09/15/16 09/15/16 07:10 07:10 11:28 INR 1.40 H Sodium 133 L Potassium 4.6 Chloride 98 Carbon Dioxide 27 D Anion Gap 8 BUN 12 Creatinine 1.0 POC Glucometer 288 Random Glucose 228 H Calcium 9.8 Problem List - Problems (1) A-fib Code(s): I48.91 - UNSPECIFIED ATRIAL FIBRILLATION (2) Acute dyspnea Code(s): R06.00 - DYSPNEA, UNSPECIFIED (3) HTN (hypertension) Code(s): I10 - ESSENTIAL (PRIMARY) HYPERTENSION (4) Morbidly obese Code(s): E66.01 - MORBID (SEVERE) OBESITY DUE TO EXCESS CALORIES (5) Pleural effusion Code(s): J90 - PLEURAL EFFUSION, NOT ELSEWHERE CLASSIFIED (6) Hypothyroid Code(s): E03.9 - HYPOTHYROIDISM, UNSPECIFIED (7) Lymphedema Code(s): I89.0 - LYMPHEDEMA, NOT ELSEWHERE CLASSIFIED (8) Pulmonary nodules/lesions, multiple Code(s): R91.8 - OTHER NONSPECIFIC ABNORMAL FINDING OF LUNG FIELD Assessment/Plan IMP DYSPNEA IMPROVED LARGE LEFT PLEURAL EFFUSION 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
--- NOTE | 2016-09-15 15:01 | PN ---
Physical Exam: SUBJECTIVE: Patient seen and examined OBJECTIVE: Vital Signs Period Temp Pulse Resp BP Sys/Dinero Pulse Ox Last 24 Hr 97.2 F-98.7 F 70-84 16-18 114-146/54-96 95 GENERAL: The patient is awake, alert, and fully oriented, in no acute distress. LUNGS: Decreased BS at left base. HEART: Irregularly irregular. ABDOMEN: Obese, soft, nontender, nondistended, normoactive bowel sounds, no guarding, no rebound, no hepatosplenomegaly, no masses. EXTREMITIES: Lymphedema with venous stasis changes Laboratory Results - last 24 hr 09/14/16 09/14/16 09/15/16 17:50 21:10 05:28 INR Sodium Potassium Chloride Carbon Dioxide Anion Gap BUN Creatinine POC Glucometer 207 204 216 Random Glucose Calcium 09/15/16 09/15/16 09/15/16 07:10 07:10 11:28 INR 1.40 H Sodium 133 L Potassium 4.6 Chloride 98 Carbon Dioxide 27 D Anion Gap 8 BUN 12 Creatinine 1.0 POC Glucometer 288 Random Glucose 228 H Calcium 9.8 Active Medications Generic Name Dose Route Start Last Admin Trade Name Freq PRN Reason Stop Dose Admin Aclidinium [place] 1 puff 09/09/16 10:00 09/15/16 11:35 Tudorza - IH 1 puff BID VIRGILIO Administration Albuterol Sulfate 1 amp 09/08/16 21:38 09/15/16 09:32 Ventolin 0.083% Nebulizer Soln - NEB 1 amp Q4H PRN Administration SHORT OF BREATH/WHEEZING Atorvastatin Calcium 20 mg 09/09/16 22:00 09/14/16 21:13 Lipitor - PO 20 mg HS VIRGILIO Administration Diltiazem HCl 300 mg 09/09/16 10:00 09/15/16 11:41 Cardizem Cd - PO 300 mg DAILY VIRGILIO Administration Ferrous Sulfate 325 mg 09/09/16 10:00 09/15/16 11:34 Feosol - PO 325 mg DAILY VIRGILIO Administration Guaifenesin 5 ml 09/12/16 18:46 Diabetic Tussin Dm - PO Q6H PRN COUGH Insulin Aspart 1 vial 09/09/16 14:21 09/15/16 11:37 Novolog Vial Sliding Scale - SQ 4 units ACHS VIRGILIO Administration Protocol Levothyroxine Sodium 75 mcg 09/09/16 07:00 09/15/16 06:19 Synthroid - PO 75 mcg DAILY@0700 VIRGILIO Administration Loratadine 10 mg 09/09/16 10:00 09/15/16 11:34 Claritin - PO 10 mg DAILY VIRGILIO Administration Montelukast Sodium 10 mg 09/09/16 22:00 09/14/16 21:13 Singulair - PO 10 mg HS VIRGILIO Administration [id number]-[id number] Ethyl Esters 1 gm 09/09/16 06:00 09/15/16 14:34 Lovaza - PO 1 gm TID VIRGILIO Administration Ondansetron HCl 8 mg 09/13/16 11:14 09/15/16 11:36 Zofran - PO 8 mg Q4H PRN Administration NAUSEA AND/OR VOMITING Potassium Chloride 10 meq 09/09/16 10:00 09/15/16 11:35 Potassium Chloride Oral Liquid PO 10 meq DAILY VIRGILIO Administration Ranitidine HCl 150 mg 09/09/16 10:00 09/15/16 11:35 Zantac - PO 150 mg BID VIRGILIO Administration Senna 1 tab 09/08/16 22:45 Senna - PO DAILY PRN Warfarin Sodium 5 mg 09/13/16 18:00 09/14/16 17:56 Coumadin - PO 5 mg DAILY@1800 V[facility]GILIO Administration ASSESSMENT/PLAN: This is a 61-year-old woman with a history of HTN, atrial fib, hypothyroidism, COPD, type 2 DM and morbid obesity who presented to the ER for dyspnea on exertion. 1. 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 Permanent atrial fibrillation - Continue Cardizem CD for rate control - Continue Coumadin 3. Hypomagnesemia - Improved 4. Morbid obesity with BMI 62.3 5. Hypothyroidism - Continue Synthroid 6. Type 2 DM - Continue Novolog sliding scale 7. HTN - Continue Cardizem - Restart Aldactone - Continue to hold Cozaar 8. Hyperlipidemia - Continue Lipitor, Lovaza 9. COPD - Continue Tudorza, Singulair, Albuterol as needed 10. Chronic systolic heart failure - Restart Aldactone - Continue to hold Cozaar Visit type - Emergency Visit Emergency Visit: Yes ED Registration Date: 09/08/16 Care time: The patient presented to the Emergency Department on the above date and was hospitalized for further evaluation of their emergent condition. - New Patient This patient is new to me today: No - Critical Care Critical Care patient: No - Discharge Referral Referred to [facility] No
[2016-09-15] MEDS: SPIRONOLACTONE 25 MG TABLET (FP) PO SCH (18:32)
[2016-09-15] MEDS: WARFARIN NA 5 MG TABLET (UD) PO SCH (18:32)
[2016-09-15] MEDS ORDERED: PT OWN MED DRAWER 7, Y5N ONE (21:26)
[2016-09-15] MEDS: ATORVASTATIN CA 20 MG TABLET (FP) PO SCH (21:35)
[2016-09-15] MEDS: MONTELUKAST NA 10 MG TABLET PO SCH (21:35)
[2016-09-16] MEDS: ALBUTEROL SO4 0.083% IH SOL 2.5 MG/3 ML VIAL.NEB. NEB PRN ×3 (01:03→15:40)
[2016-09-16] MEDS ORDERED: PT OWN MED DRAWER 7, Y5N ONE ×4 (06:33→22:06)
[2016-09-16] MEDS: LEVOTHYROXINE NA 75 MCG TABLET (FP) PO SCH (06:36)
[2016-09-16] MEDS: OMEGA-3 ACID ETHYL ESTERS (FATTY-ACIDS) 1 GM CAPSULE (FP) PO SCH ×3 (06:36→22:15)
[2016-09-16] MEDS: INSULIN SLIDING SCALE (NOVOLOG) 1 VIAL SQ SCH ×4 (06:37→22:15)
[2016-09-16 08:13] LABS: BASOPHIL 1.1 % (0-2.0); EOSINOPHIL 2.1 % (0-4.5); MCH 24.7 pg (25.7-33.7); MCHC 31.6 g/dl (32.0-36.0); MEAN CELL VOLUME 78.1 fl (80-96); MEAN PLT VOLUME 10.1 fl (7.5-11.1); NEUTROPHILS 65.6 % (42.8-82.8); PLATELET COUNT 235 K/MM3 (134-434); RDW 16.7 % (11.6-15.6); WHITE BLOOD COUNT 5.7 K/mm3 (4.0-10.0)
[2016-09-16] MEDS: guaiFENesin/D-M SUGAR-FREE/ACLHOL-FREE 118 ML BOTTLE PO PRN ×2 (08:24→15:43)
[2016-09-16 08:31] LABS: CALCIUM 10.2 mg/dL (8.5-10.1); COCKROFT - GAULT 158.661
--- NOTE | 2016-09-16 08:57 | PN ---
Progress Note, Physician History of Present Illness: The patient is a 61 year old female, with a significant past medical history of Hypertension (on Cardizem), AFIB, diabetes, CHF, COPD, GERD and hypothyroidism , who presents to the emergency department on with SOB for few days. Patient saw her PMD 2 days ago with the same complaint who was supposed to prescribe her breathing treatment pumps, but patient states that the pumps were never sent by her doctor which prompted her to present to the ED. Patient denies any new leg swelling. Patient reports orthopnea and states that she sleeps with 2 pillows. She notes that she is cold but denies any fever. She reports normal bowel movements. Duringh hospital course she was diagnosed with; 1. 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 Permanent atrial fibrillation - Continue Cardizem CD for rate control - Continue Coumadin 3. Hypomagnesemia - Improved 4. Morbid obesity with BMI 62.4 5. Hypothyroidism - Continue Synthroid 6. Type 2 DM - Continue Novolog sliding scale 7. HTN - Continue Cardizem - Cozaar, Aldactone held secondary to low BP and increasing creatinine 8. Hyperlipidemia - Continue Lipitor, Lovaza 9. COPD - Continue Tudorza, Singulair, Albuterol as needed 10. Chronic systolic heart failure - Cozaar, Aldactone held secondary to low BP - Current Medication List Current Medications: Active Medications Aclidinium [place] (Tudorza -) 1 puff IH BID [facility] Last Admin: 09/15/16 21:35 Dose: 1 puff Albuterol Sulfate (Ventolin 0.083% Nebulizer Soln -) 1 amp NEB Q4H PRN PRN Reason: SHORT OF BREATH/WHEEZING Last Admin: 09/16/16 08:45 Dose: 1 amp Atorvastatin Calcium (Lipitor -) 20 mg PO HS [facility] Last Admin: 09/15/16 21:35 Dose: 20 mg Diltiazem HCl (Cardizem Cd -) 300 mg PO DAILY [facility] Last Admin: 09/15/16 11:41 Dose: 300 mg Ferrous Sulfate (Feosol -) 325 mg PO DAILY [facility] Last Admin: 09/15/16 11:34 Dose: 325 mg Guaifenesin (Diabetic Tussin Dm -) 5 ml PO Q6H PRN PRN Reason: COUGH Last Admin: 09/16/16 08:24 Dose: 5 ml Insulin Aspart (Novolog Vial Sliding Scale -) 1 vial SQ ACHS [facility] PRN Reason: Protocol Last Admin: 09/16/16 06:37 Dose: 2 units Levothyroxine Sodium (Synthroid -) 75 mcg PO DAILY@0700 [facility] Last Admin: 09/16/16 06:36 Dose: 75 mcg Loratadine (Claritin -) 10 mg PO DAILY [facility] Last Admin: 09/15/16 11:34 Dose: 10 mg Montelukast Sodium (Singulair -) 10 mg PO HS [facility] Last Admin: 09/15/16 21:35 Dose: 10 mg Aombd-0-Dnsi Ethyl Esters (Lovaza -) 1 gm PO TID [facility] Last Admin: 09/16/16 06:36 Dose: 1 gm Ondansetron HCl (Zofran -) 8 mg PO Q4H PRN PRN Reason: NAUSEA AND/OR VOMITING Last Admin: 09/15/16 11:36 Dose: 8 mg Potassium Chloride (Potassium Chloride Oral Liquid) 10 meq PO DAILY [facility] Last Admin: 09/15/16 11:35 Dose: 10 meq Ranitidine HCl (Zantac -) 150 mg PO BID [facility] Last Admin: 09/15/16 21:35 Dose: 150 mg Senna (Senna -) 1 tab PO DAILY PRN Spironolactone (Aldactone -) 50 mg PO DAILY [facility] Last Admin: 09/15/16 18:32 Dose: 50 mg Warfarin Sodium (Coumadin -) 5 mg PO DAILY@1800 [facility] Last Admin: 09/15/16 18:32 Dose: 5 mg - Objective Vital Signs: Vital Signs Temperature 98.1 F 09/16/16 06:00 Pulse Rate 78 09/16/16 08:45 Respiratory Rate 15 09/16/16 06:00 Blood Pressure 136/68 09/16/16 06:00 O2 Sat by Pulse Oximetry (%) 98 09/16/16 08:45 Eyes: Yes: WNL, Conjunctiva Clear, EOM Intact HENT: Yes: WNL, Atraumatic, Normocephalic Neck: Yes: WNL, Supple, Trachea Midline Cardiovascular: Yes: WNL, Regular Rate and Rhythm Respiratory: Yes: WNL, Regular, CTA Bilaterally Gastrointestinal: Yes: WNL, Normal Bowel Sounds Genitourinary: Yes: WNL Musculoskeletal: Yes: WNL Edema: Yes Integumentary: Yes: WNL Neurological: Yes: WNL, Alert, Oriented ...Motor Strength: WNL Psychiatric: Yes: WNL Labs: CBC, BMP 09/16/16 06:30 INR, PTT INR 1.40 (0.82-1.09) H 09/15/16 07:10 Problem List - Problems (1) A-fib Code(s): I48.91 - UNSPECIFIED ATRIAL FIBRILLATION (2) Acute dyspnea Code(s): R06.00 - DYSPNEA, UNSPECIFIED (3) Acute renal insufficiency Code(s): N28.9 - DISORDER OF KIDNEY AND URETER, UNSPECIFIED (4) CHF exacerbation Code(s): I50.9 - HEART FAILURE, UNSPECIFIED (5) Cellulitis Code(s): L03.90 - CELLULITIS, UNSPECIFIED Qualifiers: Site of cellulitis: extremity Site of cellulitis of extremity: lower extremity Laterality: left Qualified Code(s): L03.116 - Cellulitis of left lower limb (6) HTN (hypertension) Code(s): I10 - ESSENTIAL (PRIMARY) HYPERTENSION (7) Morbidly obese Code(s): E66.01 - MORBID (SEVERE) OBESITY DUE TO EXCESS CALORIES (8) Pleural effusion Code(s): J90 - PLEURAL EFFUSION, NOT ELSEWHERE CLASSIFIED (9) Pulmonary nodules/lesions, multiple Code(s): R91.8 - OTHER NONSPECIFIC ABNORMAL FINDING OF LUNG FIELD (10) Supratherapeutic INR Code(s): R79.1 - ABNORMAL COAGULATION PROFILE (11) Hypothyroid Code(s): E03.9 - HYPOTHYROIDISM, UNSPECIFIED (12) Lymphedema Code(s): I89.0 - LYMPHEDEMA, NOT ELSEWHERE CLASSIFIED (13) Hematuria Code(s): R31.9 - HEMATURIA, UNSPECIFIED Assessment/Plan Bilateral lung nodules with exudative left pleural effusion - s/p thoracentesis 09/09 - 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
[2016-09-16] MEDS: ACLIDINIUM BROMIDE 400 MCG/INH AERO.POWD IH SCH ×2 (09:47→22:13)
[2016-09-16] MEDS: POTASSIUM CHLORIDE ORAL LIQUID 20 MEQ/15 ML PO SCH (09:47)
[2016-09-16] MEDS: LORATADINE 10 MG TABLET PO SCH (09:47)
[2016-09-16] MEDS: RANITIDINE HCL 150 MG TABLET (FP) PO SCH ×2 (09:48→22:13)
[2016-09-16] MEDS: SPIRONOLACTONE 25 MG TABLET (FP) PO SCH (09:48)
[2016-09-16] MEDS: FERROUS SO4 325 MG TABLET (FP) PO SCH (09:48)
[2016-09-16] MEDS ORDERED: INSULIN (NOVOLOG) ASPART 100 UNITS/ML 10ML VIAL ONE (11:34)
--- NOTE | 2016-09-16 11:47 | PN ---
Progress Note, Physician History of Present Illness: pulmonary alert,mildly dyspneic - Current Medication List Current Medications: Active Medications Aclidinium [place] (Tudorza -) 1 puff IH BID [facility] Last Admin: 09/16/16 09:47 Dose: 1 puff Albuterol Sulfate (Ventolin 0.083% Nebulizer Soln -) 1 amp NEB Q4H PRN PRN Reason: SHORT OF BREATH/WHEEZING Last Admin: 09/16/16 08:45 Dose: 1 amp Atorvastatin Calcium (Lipitor -) 20 mg PO [facility] Last Admin: 09/15/16 21:35 Dose: 20 mg Diltiazem HCl (Cardizem Cd -) 300 mg PO DAILY [facility] Last Admin: 09/16/16 09:48 Dose: 300 mg Ferrous Sulfate (Feosol -) 325 mg PO DAILY [facility] Last Admin: 09/16/16 09:48 Dose: 325 mg Guaifenesin (Diabetic Tussin Dm -) 5 ml PO Q6H PRN PRN Reason: COUGH Last Admin: 09/16/16 08:24 Dose: 5 ml Insulin Aspart (Novolog Vial Sliding Scale -) 1 vial SQ ACHS [facility] PRN Reason: Protocol Last Admin: 09/16/16 11:36 Dose: 2 units Levothyroxine Sodium (Synthroid -) 75 mcg PO DAILY@0700 [facility] Last Admin: 09/16/16 06:36 Dose: 75 mcg Loratadine (Claritin -) 10 mg PO DAILY [facility] Last Admin: 09/16/16 09:47 Dose: 10 mg Montelukast Sodium (Singulair -) 10 mg PO [facility] Last Admin: 09/15/16 21:35 Dose: 10 mg Xcqfp-[id number] Ethyl Esters (Lovaza -) 1 gm PO TID [facility] Last Admin: 09/16/16 06:36 Dose: 1 gm Ondansetron HCl (Zofran -) 8 mg PO Q4H PRN PRN Reason: NAUSEA AND/OR VOMITING Last Admin: 09/15/16 11:36 Dose: 8 mg Potassium Chloride (Potassium Chloride Oral Liquid) 10 meq PO DAILY [facility] Last Admin: 09/16/16 09:47 Dose: 10 meq Ranitidine HCl (Zantac -) 150 mg PO BID [facility] Last Admin: 09/16/16 09:48 Dose: 150 mg Senna (Senna -) 1 tab PO DAILY PRN Spironolactone (Aldactone -) 50 mg PO DAILY [facility] Last Admin: 09/16/16 09:48 Dose: 50 mg Warfarin Sodium (Coumadin -) 5 mg PO DAILY@1800 [facility] Last Admin: 09/15/16 18:32 Dose: 5 mg - Objective Vital Signs: Vital Signs Temperature 97.7 F 09/16/16 09:00 Pulse Rate 81 09/16/16 09:00 Respiratory Rate 20 09/16/16 09:00 Blood Pressure 118/70 09/16/16 09:00 O2 Sat by Pulse Oximetry (%) 100 09/16/16 09:00 Constitutional: Yes: Calm, Obese Eyes: Yes: WNL HENT: Yes: WNL Neck: Yes: WNL Cardiovascular: Yes: Pulse Irregular, S1, S2 Respiratory: Yes: Diminished (diminished bs on left,dullness on percussion left) Gastrointestinal: Yes: Normal Bowel Sounds, Soft Extremities: Yes: WNL Edema: Yes Labs: CBC, BMP 09/16/16 06:30 09/16/16 06:30 INR, PTT INR 1.40 (0.82-1.09) H 09/15/16 07:10 - ....Imaging Chest X-ray: Report Reviewed, Image Reviewed (complete opacification left hemithorax) Problem List - Problems (1) A-fib Code(s): I48.91 - UNSPECIFIED ATRIAL FIBRILLATION (2) Acute dyspnea Code(s): R06.00 - DYSPNEA, UNSPECIFIED (3) HTN (hypertension) Code(s): I10 - ESSENTIAL (PRIMARY) HYPERTENSION (4) Morbidly obese Code(s): E66.01 - MORBID (SEVERE) OBESITY DUE TO EXCESS CALORIES (5) Pleural effusion Code(s): J90 - PLEURAL EFFUSION, NOT ELSEWHERE CLASSIFIED (6) Hypothyroid Code(s): E03.9 - HYPOTHYROIDISM, UNSPECIFIED (7) Lymphedema Code(s): I89.0 - LYMPHEDEMA, NOT ELSEWHERE CLASSIFIED (8) Pulmonary nodules/lesions, multiple Code(s): R91.8 - OTHER NONSPECIFIC ABNORMAL FINDING OF LUNG FIELD Assessment/Plan IMP DYSPNEA LARGE LEFT PLEURAL EFFUSION MALIGNANT BILATERAL PULMONARY NODULES C/W METS PRIMARY GYNECOLOGIC CHF AFIB HTN DM H/O ASTHMA HYPOTHYROID MORBID OBESITY COMPLETE OPACIFICATION LEFT HEMITHORAX PLAN CHEST CT POSSIBLE CHEST TUBE DRAINAGE NASAL O2 INHALED BRONCHODILATORS DR KATE Problem List - Problems (1) A-fib Code(s): I48.91 - UNSPECIFIED ATRIAL FIBRILLATION (2) Acute dyspnea Code(s): R06.00 - DYSPNEA, UNSPECIFIED (3) HTN (hypertension) Code(s): I10 - ESSENTIAL (PRIMARY) HYPERTENSION (4) Morbidly obese Code(s): E66.01 - MORBID (SEVERE) OBESITY DUE TO EXCESS CALORIES (5) Pleural effusion Code(s): J90 - PLEURAL EFFUSION, NOT ELSEWHERE CLASSIFIED (6) Hypothyroid Code(s): E03.9 - HYPOTHYROIDISM, UNSPECIFIED (7) Lymphedema Code(s): I89.0 - LYMPHEDEMA, NOT ELSEWHERE CLASSIFIED (8) Pulmonary nodules/lesions, multiple Code(s): R91.8 - OTHER NONSPECIFIC ABNORMAL FINDING OF LUNG FIELD
[2016-09-16 12:45] LABS: INR 1.9 (0.82-1.09); PROTHROMBIN TIME (PATIENT) 21.2 SEC (9.98-11.88)
--- NOTE | 2016-09-16 14:16 | PN ---
Teaching Attending Note Name of Resident: Natasha Hodge ATTENDING PHYSICIAN STATEMENT I saw and evaluated the patient. I reviewed the resident's note and discussed the case with the resident. I agree with the resident's findings and plan as documented. SUBJECTIVE: Patient feels short of breath with exertion. OBJECTIVE: Vital Signs Period Temp Pulse Resp BP Sys/Dinero Pulse Ox Last 24 Hr 97.7 F-98.1 F 78-99 15-20 114-151/54-83 98-100 GENERAL: The patient is awake, alert, and fully oriented, in no acute distress. LUNGS: Decreased BS half way up on left HEART: Irregularly irregular. ABDOMEN: Obese, soft, nontender, nondistended, normoactive bowel sounds, no guarding, no rebound, no hepatosplenomegaly, no masses. EXTREMITIES: Lymphedema with venous stasis changes ASSESSMENT AND PLAN: This is a 61-year-old woman with a history of HTN, atrial fib, hypothyroidism, COPD, type 2 DM and morbid obesity who presented to the ER for dyspnea on exertion. 1. 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 Permanent atrial fibrillation - Continue Cardizem CD for rate control - Continue Coumadin 3. Hypomagnesemia - Improved 4. Morbid obesity with BMI 62.4 5. Hypothyroidism - Continue Synthroid 6. Type 2 DM - Continue Novolog sliding scale 7. HTN - Continue Cardizem, Aldactone - Cozaar held secondary to hypotension 8. Hyperlipidemia - Continue Lipitor, Lovaza 9. COPD - Continue Tudorza, Singulair, Albuterol as needed 10. Chronic systolic heart failure - Continue Aldactone - Cozaar held secondary to hypotension
--- NOTE | 2016-09-16 15:11 | PN ---
Physical Exam: SUBJECTIVE: Patient seen and examined by me at bedside. Patient reports feeling more short of breath and has been coughing more. She was able to lay down and sleep but states she becomes short of breath when she initially wakes up. Otherwise, patient denies fever, chills, nausea, vomiting, abdominal pain, cheat pain, palpitations. OBJECTIVE: Vital Signs Period Temp Pulse Resp BP Sys/Dinero Pulse Ox Last 24 Hr 97.7 F-98.1 F 78-99 15-20 118-151/68-83 98-100 GENERAL: The patient is awake, alert, and fully oriented, in no acute distress. LUNGS: Decreased breath sounds throughout left lung bases with no crackles or wheezes. HEART: Irregularly irregular, normal S1 and S2 without murmur, rub or gallop. ABDOMEN: Soft, Obese, nontender, nondistended, normoactive bowel sounds. EXTREMITIES: B/L lower extremity chronic venous changes with lymphedema and scaly dry skin. Laboratory Results - last 24 hr 09/15/16 09/15/16 09/16/16 16:49 21:40 05:41 WBC RBC Hgb Hct MCV MCHC RDW Plt Count MPV Neutrophils % Lymphocytes % Monocytes % Eosinophils % Basophils % INR Sodium Potassium Chloride Carbon Dioxide Anion Gap BUN Creatinine POC Glucometer 228 223 229 Random Glucose Calcium 09/16/16 09/16/16 09/16/16 06:30 06:30 11:32 WBC 5.7 RBC 5.11 Hgb 12.6 Hct 39.9 MCV 78.1 L MCHC 31.6 L RDW 16.7 H Plt Count 235 MPV 10.1 Neutrophils % 65.6 Lymphocytes % 18.5 Monocytes % 12.7 H Eosinophils % 2.1 Basophils % 1.1 INR Sodium 132 L Potassium 4.8 Chloride 97 L Carbon Dioxide 25 Anion Gap 10 BUN 12 Creatinine 1.0 POC Glucometer 237 Random Glucose 220 H Calcium 10.2 H 09/16/16 11:40 WBC RBC Hgb Hct MCV MCHC RDW Plt Count MPV Neutrophils % Lymphocytes % Monocytes % Eosinophils % Basophils % INR 1.90 H D Sodium Potassium Chloride Carbon Dioxide Anion Gap BUN Creatinine POC Glucometer Random Glucose Calcium Active Medications Generic Name Dose Route Start Last Admin Trade Name Freq PRN Reason Stop Dose Admin Aclidinium [place] 1 puff 09/09/16 10:00 09/16/16 09:47 Tudorza - IH 1 puff BID VIRGILIO Administration Albuterol Sulfate 1 amp 09/08/16 21:38 09/16/16 08:45 Ventolin 0.083% Nebulizer Soln - NEB 1 amp Q4H PRN Administration SHORT OF BREATH/WHEEZING Atorvastatin Calcium 20 mg 09/09/16 22:00 09/15/16 21:35 Lipitor - PO 20 mg HS VIRGILIO Administration Diltiazem HCl 300 mg 09/09/16 10:00 09/16/16 09:48 Cardizem Cd - PO 300 mg DAILY VIRGILIO Administration Ferrous Sulfate 325 mg 09/09/16 10:00 09/16/16 09:48 Feosol - PO 325 mg DAILY VIRGILIO Administration Guaifenesin 5 ml 09/12/16 18:46 09/16/16 08:24 Diabetic Tussin Dm - PO 5 ml Q6H PRN Administration COUGH Insulin Aspart 1 vial 09/09/16 14:21 09/16/16 11:36 Novolog Vial Sliding Scale - SQ 2 units ACHS VIRGILIO Administration Protocol Levothyroxine Sodium 75 mcg 09/09/16 07:00 09/16/16 06:36 Synthroid - PO 75 mcg DAILY@0700 VIRGILIO Administration Loratadine 10 mg 09/09/16 10:00 09/16/16 09:47 Claritin - PO 10 mg DAILY VIRGILIO Administration Montelukast Sodium 10 mg 09/09/16 22:00 09/15/16 21:35 Singulair - PO 10 mg HS VIRGILIO Administration Gbsmu-3-Sgzx Ethyl Esters 1 gm 09/09/16 06:00 09/16/16 14:53 Lovaza - PO 1 gm TID VIRGILIO Administration Ondansetron HCl 8 mg 09/13/16 11:14 09/15/16 11:36 Zofran - PO 8 mg Q4H PRN Administration NAUSEA AND/OR VOMITING Potassium Chloride 10 meq 09/09/16 10:00 09/16/16 09:47 Potassium Chloride Oral Liquid PO 10 meq DAILY VIRGILIO Administration Ranitidine HCl 150 mg 09/09/16 10:00 09/16/16 09:48 Zantac - PO 150 mg BID VIRGILIO Administration Senna 1 tab 09/08/16 22:45 Senna - PO DAILY PRN Spironolactone 50 mg 09/15/16 17:00 09/16/16 09:48 Aldactone - PO 50 mg DAILY VIRGILIO Administration Warfarin Sodium 5 mg 09/13/16 18:00 09/15/16 18:32 Coumadin - PO 5 mg DAILY@1800 VIRGILIO Administration ASSESSMENT/PLAN: Images: Chest X-ray (09/08/16): Moderate left pleural effusion with compressive atelectasis. Multiple lung nodules - lung metastasis. Chest CT w/ Contrast (09/08/16): Innumerable bilateral pulmonary nodules, moderate to large left pleural effusion, and mediastinal and hilar lymphadenopathy are highly suspicious for metastatic disease. 2.9 cm hypodense mass is seen in the left lobe of the liver. Thoracocentesis under U/S guide (09/09/16) Chest X-ray (09/09/16): Decreased Pleural Effusion. No Pneumothorax seen. CT Abdomen and pelvis (09/10/16): CT abd/pelvis shows multiple metastatic pulmonary nodules, moderate left pleural effusion, hypodense left hepatic lobe mass, possible hypodense right hepatic lobe mass, diverticulosis ASSESSMENT/PLAN: Patient is a 61 year old female with PMHx of HTN, A.fib on Coumadin, DMII, CHF, COPD, GERD and hypothyroidism who presented for dyspnea and was found to have a large left pleural effusion with multiple nodules on chest x-ray. Patient admitted for further monitoring and management. Dyspnea Secondary to Malignant Pleural Effusions -S/P thoracentesis 09/09/16 and cytology was positive for malignant cells. 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 -CT of the L-spine, T-spine, and pelvis negative for bone pathology Anticholinergic Syndrome- Resolved -Will continue to monitor Asthma/COPD -No history of smoking -Continue with Albuterol PRN -Tudorza/Spiriva discontinued due to Anticholinergic syndrome -Pulmonology consult appreciated Hypomagnesemia-resolved -Will continue to monitor Atrial Fibrillation -Continue Coumadin 5mg -Continue Diltiazem Cd 300mg daily -Continue to monitor PT Systolic CHF- Chronic -No acute exacerbation at the time -Aldactone 50mg daily resumed -Daily weight -Hold lasix for hypotension -ECHO done and no global hypokinesis DMII -BGM ACHS -Novolog sliding scale HTN -Hypotensive -Hold Losartan 50mg daily -Hold Lasix -Continue to monitor BP HLD -Continue Lipitor 20mg Hypothyroidism -Continue Levothyroxine 75mcg daily GERD -Continue Ranitidine 150mg BID Morbid Obesity -Bariatric referral as outpatient F/E/N -On no fluids -Electrolytes wnl -Diabetic diet Prophylaxis -Coumadin 5mg for DVT Disposition -Cytology shows malignancy by adenocarcinoma, likely Mullerian origin. Will need CT surgery due to recurrent pleural effusions. Visit type - Emergency Visit Emergency Visit: Yes ED Registration Date: 09/08/16 Care time: The patient presented to the Emergency Department on the above date and was hospitalized for further evaluation of their emergent condition. - New Patient This patient is new to me today: No - Critical Care Critical Care patient: No
--- NOTE | 2016-09-16 17:50 | PN ---
Progress Note (short form) - Note Progress Note: PAtient seen and examined anxious Last Vital Signs Temp Pulse Resp BP Pulse Ox 97.7 F 61 20 116/60 100 09/16/16 14:00 09/16/16 14:00 09/16/16 14:00 09/16/16 14:00 09/16/16 09:00 Morbid obesity Cor: RSR, No murmurs, No gallops Lungs:decreased at bases Abd: Soft, Normal bowel sounds, No organomegaly Ext:No significant edema Abnormal Lab Results 09/16/16 09/16/16 09/16/16 06:30 06:30 11:40 MCV 78.1 L MCHC 31.6 L RDW 16.7 H Monocytes % 12.7 H INR 1.90 H D Sodium 132 L Chloride 97 L Random Glucose 220 H Calcium 10.2 H Home Medication List Medication Instructions Recorded Confirmed Type Ferrous Sulfate 325 mg PO DAILY 10/17/12 09/08/16 History Insuln Asp Prt/Insulin Aspart 35 unit SQ BID 10/17/12 09/08/16 History [Novolog Mix 70-30 Flexpen Syrn] Levothyroxine [Synthroid -] 75 mcg PO DAILY 10/17/12 09/08/16 History Loratadine [Claritin -] 10 mg PO DAILY 10/17/12 09/08/16 History Losartan Potassium 50 mg PO DAILY 10/17/12 09/08/16 History Metformin HCl [Glucophage] 1,000 mg PO BID 10/17/12 09/08/16 History Montelukast Na [Singulair -] 10 mg PO HS 10/17/12 09/08/16 History Keller-3 Acid Ethyl Esters [Lovaza 1,000 mg PO TID 10/17/12 09/08/16 History -] Potassium Chloride 10 meq PO DAILY 10/17/12 09/08/16 History Ranitidine [Zantac -] 150 mg PO BID 10/17/12 09/08/16 History Simvastatin [Zocor -] 40 mg PO HS 10/17/12 09/08/16 History Tiotropium [place] [Spiriva] 1 inh IH DAILY 10/17/12 09/08/16 History Warfarin Sodium [Coumadin] 5 mg PO DAILY 10/17/12 09/08/16 History Calcium Carbonate/Vitamin D3 1 each PO DAILY 09/08/16 09/08/16 History [Oyster Shell Calcium-Vit D Tab] Diltiazem Cd [Cardizem Cd -] 300 mg PO DAILY 09/08/16 09/08/16 History Sennosides [Senna] 8.6 mg PO PRN 09/08/16 09/08/16 History Spironolactone 60 mg PO DAILY 09/08/16 09/08/16 History Active Medications Generic Name Dose Route Start Last Admin Trade Name Freq PRN Reason Stop Dose Admin Aclidinium [place] 1 puff 09/09/16 10:00 09/16/16 09:47 Tudorza - IH 1 puff BID VIRGILIO Administration Albuterol Sulfate 1 amp 09/08/16 21:38 09/16/16 15:40 Ventolin 0.083% Nebulizer Soln - NEB 1 amp Q4H PRN Administration SHORT OF BREATH/WHEEZING Atorvastatin Calcium 20 mg 09/09/16 22:00 09/15/16 21:35 Lipitor - PO 20 mg HS VIRGILIO Administration Diltiazem HCl 300 mg 09/09/16 10:00 09/16/16 09:48 Cardizem Cd - PO 300 mg DAILY VIRGILIO Administration Ferrous Sulfate 325 mg 09/09/16 10:00 09/16/16 09:48 Feosol - PO 325 mg DAILY VIRGILIO Administration Guaifenesin 5 ml 09/12/16 18:46 09/16/16 15:43 Diabetic Tussin Dm - PO 5 ml Q6H PRN Administration COUGH Insulin Aspart 1 vial 09/09/16 14:21 09/16/16 17:51 Novolog Vial Sliding Scale - SQ 2 units ACHS VIRGILIO Administration Protocol Levothyroxine Sodium 75 mcg 09/09/16 07:00 09/16/16 06:36 Synthroid - PO 75 mcg DAILY@0700 VIRGILIO Administration Loratadine 10 mg 09/09/16 10:00 09/16/16 09:47 Claritin - PO 10 mg DAILY VIRGILIO Administration Montelukast Sodium 10 mg 09/09/16 22:00 09/15/16 21:35 Singulair - PO 10 mg HS VIRGILIO Administration Xrdsb-4-Lvjk Ethyl Esters 1 gm 09/09/16 06:00 09/16/16 14:53 Lovaza - PO 1 gm TID VIRGILIO Administration Ondansetron HCl 8 mg 09/13/16 11:14 09/15/16 11:36 Zofran - PO 8 mg Q4H PRN Administration NAUSEA AND/OR VOMITING Potassium Chloride 10 meq 09/09/16 10:00 09/16/16 09:47 Potassium Chloride Oral Liquid PO 10 meq DAILY VIRGILIO Administration Ranitidine HCl 150 mg 09/09/16 10:00 09/16/16 09:48 Zantac - PO 150 mg BID VIRGILIO Administration Senna 1 tab 09/08/16 22:45 Senna - PO DAILY PRN Spironolactone 50 mg 09/15/16 17:00 09/16/16 09:48 Aldactone - PO 50 mg DAILY VIRGILIO Administration Warfarin Sodium 5 mg 09/13/16 18:00 09/16/16 17:52 Coumadin - PO Not Given DAILY@1800 VIRGILIO A/P 61 y/o patient with morbid obesity, HTN, DM, O2 dependent COPD, CHF, Afib, on coumadin, come in with worsening SoB. CT showed multiple pulmonary nodules s/o mets, pleural effusion, LT. few liver lesions. Pleural fluid cytology s/o adnoca of mullerian origin Patient had post menopausal bleeding a few months ago. TV U/S --prominent uterus/fibroids and cervical cyst CT hip/T/L spine show no mets Recurrent effusion for possible chest tube drainage awaiting INR to come down will discuss with pulmonary patient undecided about chemotherapy willing for port placement--coordinate based on chest tube drainage
[2016-09-16] MEDS: WARFARIN NA 5 MG TABLET (UD) PO SCH (17:52)
[2016-09-16] MEDS: ATORVASTATIN CA 20 MG TABLET (FP) PO SCH (22:13)
[2016-09-16] MEDS: MONTELUKAST NA 10 MG TABLET PO SCH (22:13)
[2016-09-17] MEDS: ALBUTEROL SO4 0.083% IH SOL 2.5 MG/3 ML VIAL.NEB. NEB PRN (02:46)
[2016-09-17] MEDS: INSULIN SLIDING SCALE (NOVOLOG) 1 VIAL SQ SCH ×4 (06:18→23:23)
[2016-09-17] MEDS: OMEGA-3 ACID ETHYL ESTERS (FATTY-ACIDS) 1 GM CAPSULE (FP) PO SCH ×3 (06:18→22:49)
[2016-09-17] MEDS: LEVOTHYROXINE NA 75 MCG TABLET (FP) PO SCH (06:19)
[2016-09-17 07:30] LABS: MCHC 32.1 g/dl (32.0-36.0); MEAN CELL VOLUME 77.7 fl (80-96); MEAN PLT VOLUME 9.8 fl (7.5-11.1); PLATELET COUNT 222 K/MM3 (134-434); RDW 17.3 % (11.6-15.6); WHITE BLOOD COUNT 5.9 K/mm3 (4.0-10.0)
[2016-09-17 07:47] LABS: INR 2.18 (0.82-1.09); PROTHROMBIN TIME (PATIENT) 24.4 SEC (9.98-11.88)
[2016-09-17 07:57] LABS: ALBUMIN 2.8 g/dl (3.4-5.0); CALCIUM 9.9 mg/dL (8.5-10.1); COCKROFT - GAULT 144.483; CREATININE 1.1 mg/dL (0.55-1.02)
[2016-09-17 07:58] LABS: BILIRUBIN,TOTAL 0.5 mg/dL (0.2-1.0)
[2016-09-17] MEDS: ACLIDINIUM BROMIDE 400 MCG/INH AERO.POWD IH SCH ×2 (10:58→23:20)
[2016-09-17] MEDS ORDERED: INSULIN (NOVOLOG) ASPART 100 UNITS/ML 10ML VIAL ONE (11:04)
[2016-09-17] MEDS: FERROUS SO4 325 MG TABLET (FP) PO SCH (11:06)
[2016-09-17] MEDS: LORATADINE 10 MG TABLET PO SCH (11:06)
[2016-09-17] MEDS: RANITIDINE HCL 150 MG TABLET (FP) PO SCH ×2 (11:06→22:50)
[2016-09-17] MEDS: SPIRONOLACTONE 25 MG TABLET (FP) PO SCH (11:08)
--- NOTE | 2016-09-17 11:12 | CONSULT ---
Consult - text type - Consultation Consultation Note: Thoracic Surgery Consultation: 61F with multiple comorbidities including morbid obesity, CHF, COPD, and now stage 4 adenocarcinoma with recurrent symptomatic malignant effusion. Consulted regarding placement of tube. She is on anticoagulation for AFIB. Coumadin held. INR 2.1. She has not started therapy. I think pleur-x is indicated given her size and comorbidities. It would be done in the OR. I have counseled her and her daughter for over 40 minutes and spent over 60 minutes with coordination of care including discussing her case with the medical team and Dr. Garcia and Dr. Castorena. I have mentioned other options including thoracentesis again with commencement of chemotherapy and reimaging versus vats with talc and chest tube, versus pleur-x alone. I recommend pleur-x but other options are worth consideration. Patient and her daughther will think about it for now.
--- NOTE | 2016-09-17 11:41 | PN ---
Progress Note, Physician History of Present Illness: pulmonary alert,+dyspneic with exertion. thoracic consult noted agree with pleur-x cath insertion - Current Medication List Current Medications: Active Medications Aclidinium [place] (Tudorza -) 1 puff IH BID [facility] Last Admin: 09/17/16 10:58 Dose: 1 puff Albuterol Sulfate (Ventolin 0.083% Nebulizer Soln -) 1 amp NEB Q4H PRN PRN Reason: SHORT OF BREATH/WHEEZING Last Admin: 09/17/16 02:46 Dose: 1 amp Atorvastatin Calcium (Lipitor -) 20 mg PO HS [facility] Last Admin: 09/16/16 22:13 Dose: 20 mg Diltiazem HCl (Cardizem Cd -) 300 mg PO DAILY [facility] Last Admin: 09/17/16 10:59 Dose: 300 mg Ferrous Sulfate (Feosol -) 325 mg PO DAILY [facility] Last Admin: 09/17/16 11:06 Dose: 325 mg Guaifenesin (Diabetic Tussin Dm -) 5 ml PO Q6H PRN PRN Reason: COUGH Last Admin: 09/16/16 15:43 Dose: 5 ml Insulin Aspart (Novolog Vial Sliding Scale -) 1 vial SQ ACHS [facility] PRN Reason: Protocol Last Admin: 09/17/16 11:35 Dose: Not Given Levothyroxine Sodium (Synthroid -) 75 mcg PO DAILY@0700 [facility] Last Admin: 09/17/16 06:19 Dose: Not Given Loratadine (Claritin -) 10 mg PO DAILY [facility] Last Admin: 09/17/16 11:06 Dose: 10 mg Montelukast Sodium (Singulair -) 10 mg PO [facility] Last Admin: 09/16/16 22:13 Dose: 10 mg Xeeux-9-Ssdw Ethyl Esters (Lovaza -) 1 gm PO TID [facility] Last Admin: 09/17/16 06:18 Dose: Not Given Ondansetron HCl (Zofran -) 8 mg PO Q4H PRN PRN Reason: NAUSEA AND/OR VOMITING Last Admin: 09/15/16 11:36 Dose: 8 mg Potassium Chloride (Potassium Chloride Oral Liquid) 10 meq PO DAILY [facility] Last Admin: 09/16/16 09:47 Dose: 10 meq Ranitidine HCl (Zantac -) 150 mg PO BID [facility] Last Admin: 09/17/16 11:06 Dose: 150 mg Senna (Senna -) 1 tab PO DAILY PRN Spironolactone (Aldactone -) 50 mg PO DAILY VIRGILIO Last Admin: 09/17/16 11:08 Dose: 50 mg - Objective Vital Signs: Vital Signs Temperature 97.6 F 09/17/16 06:00 Pulse Rate 81 09/17/16 06:00 Respiratory Rate 18 09/17/16 06:00 Blood Pressure 122/70 09/17/16 06:00 O2 Sat by Pulse Oximetry (%) 100 09/16/16 21:00 Constitutional: Yes: Calm, Obese Eyes: Yes: WNL HENT: Yes: WNL Neck: Yes: WNL Cardiovascular: Yes: Pulse Irregular, S1, S2 Respiratory: Yes: Diminished (diminished bs on left) Gastrointestinal: Yes: Normal Bowel Sounds, Soft Extremities: Yes: WNL Edema: Yes Labs: CBC, BMP 09/17/16 06:00 09/17/16 06:00 INR, PTT INR 2.18 (0.82-1.09) H 09/17/16 06:00 Problem List - Problems (1) A-fib Code(s): I48.91 - UNSPECIFIED ATRIAL FIBRILLATION (2) Acute dyspnea Code(s): R06.00 - DYSPNEA, UNSPECIFIED (3) HTN (hypertension) Code(s): I10 - ESSENTIAL (PRIMARY) HYPERTENSION (4) Morbidly obese Code(s): E66.01 - MORBID (SEVERE) OBESITY DUE TO EXCESS CALORIES (5) Pleural effusion Code(s): J90 - PLEURAL EFFUSION, NOT ELSEWHERE CLASSIFIED (6) Hypothyroid Code(s): E03.9 - HYPOTHYROIDISM, UNSPECIFIED (7) Lymphedema Code(s): I89.0 - LYMPHEDEMA, NOT ELSEWHERE CLASSIFIED (8) Pulmonary nodules/lesions, multiple Code(s): R91.8 - OTHER NONSPECIFIC ABNORMAL FINDING OF LUNG FIELD Assessment/Plan IMP DYSPNEA LARGE LEFT PLEURAL EFFUSION MALIGNANT BILATERAL PULMONARY NODULES C/W METS PRIMARY GYNECOLOGIC CHF AFIB HTN DM H/O ASTHMA HYPOTHYROID MORBID OBESITY COMPLETE OPACIFICATION LEFT HEMITHORAX PLAN PLEUR-X CATH INSERTION NASAL O2 INHALED BRONCHODILATORS CHEMO PER ONCOLOGY DR KATE Problem List - Problems (1) A-fib Code(s): I48.91 - UNSPECIFIED ATRIAL FIBRILLATION (2) Acute dyspnea Code(s): R06.00 - DYSPNEA, UNSPECIFIED (3) HTN (hypertension) Code(s): I10 - ESSENTIAL (PRIMARY) HYPERTENSION (4) Morbidly obese Code(s): E66.01 - MORBID (SEVERE) OBESITY DUE TO EXCESS CALORIES (5) Pleural effusion Code(s): J90 - PLEURAL EFFUSION, NOT ELSEWHERE CLASSIFIED (6) Hypothyroid Code(s): E03.9 - HYPOTHYROIDISM, UNSPECIFIED (7) Lymphedema Code(s): I89.0 - LYMPHEDEMA, NOT ELSEWHERE CLASSIFIED (8) Pulmonary nodules/lesions, multiple Code(s): R91.8 - OTHER NONSPECIFIC ABNORMAL FINDING OF LUNG FIELD
[2016-09-17] MEDS: POTASSIUM CHLORIDE ORAL LIQUID 20 MEQ/15 ML PO SCH (12:38)
--- NOTE | 2016-09-17 13:21 | PN ---
Physical Exam: SUBJECTIVE: Patient seen and examined by me at bedside. No overnight events noted. Patient continues to complain of shortness of breath with a non productive cough. She is anxious and nervous of her upcoming possible procedures and what is to happen next. Otherwise, patient denies chest pain, palpitations, abdominal pain, nausea, vomiting, fever, chills. OBJECTIVE: Vital Signs Period Temp Pulse Resp BP Sys/Dinero Pulse Ox Last 24 Hr 97.6 F-98.2 F 61-88 18-20 115-148/60-98 100 GENERAL: The patient is awake, alert, and fully oriented, in no acute distress. LUNGS: Decreased breath sounds throughout left lung bases with no crackles or wheezes. on 2L oxygen HEART: Irregularly irregular, normal S1 and S2 without murmur, rub or gallop. ABDOMEN: Soft, Obese, nontender, nondistended, normoactive bowel sounds. EXTREMITIES: B/L lower extremity chronic venous changes with lymphedema and scaly dry skin. Laboratory Results - last 24 hr 09/16/16 09/16/16 09/17/16 16:41 21:04 06:00 WBC 5.9 RBC 5.08 Hgb 12.7 Hct 39.5 MCV 77.7 L MCHC 32.1 RDW 17.3 H Plt Count 222 MPV 9.8 INR PTT (Actin FS) Sodium Potassium Chloride Carbon Dioxide Anion Gap BUN Creatinine Creat Clearance w eGFR POC Glucometer 216 222 Random Glucose Calcium Total Bilirubin AST ALT Alkaline Phosphatase Total Protein Albumin Blood Type Antibody Screen 09/17/16 09/17/16 09/17/16 06:00 06:00 06:00 WBC RBC Hgb Hct MCV MCHC RDW Plt Count MPV INR 2.18 H PTT (Actin FS) 37.5 H Sodium 132 L Potassium 5.2 H Chloride 97 L Carbon Dioxide 25 Anion Gap 10 BUN 13 Creatinine 1.1 H Creat Clearance w eGFR 50.50 POC Glucometer Random Glucose 252 H Calcium 9.9 Total Bilirubin 0.5 D AST 16 D ALT 17 Alkaline Phosphatase 123 H Total Protein 7.0 Albumin 2.8 L Blood Type Antibody Screen 09/17/16 09/17/16 09/17/16 06:04 10:05 11:40 WBC RBC Hgb Hct MCV MCHC RDW Plt Count MPV INR PTT (Actin FS) Sodium Potassium Chloride Carbon Dioxide Anion Gap BUN Creatinine Creat Clearance w eGFR POC Glucometer 244 231 Random Glucose Calcium Total Bilirubin AST ALT Alkaline Phosphatase Total Protein Albumin Blood Type O NEGATIVE Antibody Screen Negative Active Medications Generic Name Dose Route Start Last Admin Trade Name Freq PRN Reason Stop Dose Admin Aclidinium [place] 1 puff 09/09/16 10:00 09/17/16 10:58 Tudorza - IH 1 puff BID VIRGILIO Administration Albuterol Sulfate 1 amp 09/08/16 21:38 09/17/16 02:46 Ventolin 0.083% Nebulizer Soln - NEB 1 amp Q4H PRN Administration SHORT OF BREATH/WHEEZING Atorvastatin Calcium 20 mg 09/09/16 22:00 09/16/16 22:13 Lipitor - PO 20 mg HS VIRGILIO Administration Diltiazem HCl 300 mg 09/09/16 10:00 09/17/16 10:59 Cardizem Cd - PO 300 mg DAILY VIRGILIO Administration Ferrous Sulfate 325 mg 09/09/16 10:00 09/17/16 11:06 Feosol - PO 325 mg DAILY VIRGILIO Administration Guaifenesin 5 ml 09/12/16 18:46 09/16/16 15:43 Diabetic Tussin Dm - PO 5 ml Q6H PRN Administration COUGH Insulin Aspart 1 vial 09/09/16 14:21 09/17/16 11:35 Novolog Vial Sliding Scale - SQ Not Given ACHS VIRGILIO Protocol Levothyroxine Sodium 75 mcg 09/09/16 07:00 09/17/16 06:19 Synthroid - PO Not Given DAILY@0700 VIRGILIO Loratadine 10 mg 09/09/16 10:00 09/17/16 11:06 Claritin - PO 10 mg DAILY VIRGILIO Administration Montelukast Sodium 10 mg 09/09/16 22:00 09/16/16 22:13 Singulair - PO 10 mg HS VIRGILIO Administration Opubc-2-Nxzd Ethyl Esters 1 gm 09/09/16 06:00 09/17/16 06:18 Lovaza - PO Not Given TID VIRGILIO Ondansetron HCl 8 mg 09/13/16 11:14 09/15/16 11:36 Zofran - PO 8 mg Q4H PRN Administration NAUSEA AND/OR VOMITING Potassium Chloride 10 meq 09/09/16 10:00 09/17/16 12:38 Potassium Chloride Oral Liquid PO Not Given DAILY VIRGILIO Ranitidine HCl 150 mg 09/09/16 10:00 09/17/16 11:06 Zantac - PO 150 mg BID VIRGILIO Administration Senna 1 tab 09/08/16 22:45 Senna - PO DAILY PRN Spironolactone 50 mg 09/15/16 17:00 09/17/16 11:08 Aldactone - PO 50 mg DAILY VIRGILIO Administration Images: Chest X-ray (09/08/16): Moderate left pleural effusion with compressive atelectasis. Multiple lung nodules - lung metastasis. Chest CT w/ Contrast (09/08/16): Innumerable bilateral pulmonary nodules, moderate to large left pleural effusion, and mediastinal and hilar lymphadenopathy are highly suspicious for metastatic disease. 2.9 cm hypodense mass is seen in the left lobe of the liver. Thoracocentesis under U/S guide (09/09/16) Chest X-ray (09/09/16): Decreased Pleural Effusion. No Pneumothorax seen. CT Abdomen and pelvis (09/10/16): CT abd/pelvis shows multiple metastatic pulmonary nodules, moderate left pleural effusion, hypodense left hepatic lobe mass, possible hypodense right hepatic lobe mass, diverticulosis ASSESSMENT/PLAN: Patient is a 61 year old female with PMHx of HTN, A.fib on Coumadin, DMII, CHF, COPD, GERD and hypothyroidism who presented for dyspnea and was found to have a large left pleural effusion with multiple nodules on chest x-ray. Patient admitted for further monitoring and management. Dyspnea Secondary to Malignant Pleural Effusions -S/P thoracentesis 09/09/16 and cytology was positive for malignant cells. 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 -CT of the L-spine, T-spine, and pelvis negative for bone pathology Anticholinergic Syndrome- Resolved -Will continue to monitor Asthma/COPD -No history of smoking -Continue with Albuterol PRN -Tudorza/Spiriva discontinued due to Anticholinergic syndrome -Pulmonology consult appreciated Hypomagnesemia-resolved -Will continue to monitor Atrial Fibrillation -Coumadin on hold due to possible CT surgery -Continue Diltiazem Cd 300mg daily -Continue to monitor PT Systolic CHF- Chronic -No acute exacerbation at the time -Aldactone 50mg daily resumed -Daily weight -Hold lasix for hypotension -ECHO done and no global hypokinesis DMII -BGM ACHS -Novolog sliding scale HTN -Hypotensive -Hold Losartan 50mg daily -Hold Lasix -Continue to monitor BP HLD -Continue Lipitor 20mg Hypothyroidism -Continue Levothyroxine 75mcg daily GERD -Continue Ranitidine 150mg BID Morbid Obesity -Bariatric referral as outpatient F/E/N -On no fluids -Electrolytes wnl -Diabetic diet Prophylaxis -SCD's for DVT. Coumadin on hold for CT surgery Disposition -Cytology shows malignancy by adenocarcinoma, likely Mullerian origin. CT Surgery likely today or tomorrow. Visit type - Emergency Visit Emergency Visit: Yes ED Registration Date: 09/08/16 Care time: The patient presented to the Emergency Department on the above date and was hospitalized for further evaluation of their emergent condition. - New Patient This patient is new to me today: No - Critical Care Critical Care patient: No
--- NOTE | 2016-09-17 13:25 | PN ---
Teaching Attending Note Name of Resident: Natasha Hodge ATTENDING PHYSICIAN STATEMENT I saw and evaluated the patient. I reviewed the resident's note and discussed the case with the resident. I agree with the resident's findings and plan as documented. SUBJECTIVE:remains dyspnic at rest assoc with non productive cough.denies Cp, fever, chills, N/V/C/D OBJECTIVE: Last Vital Signs Temp Pulse Resp BP Pulse Ox 97.6 F 88 18 119/98 100 09/17/16 10:09/17/16 10:09/17/16 10:09/17/16 10:09/16/16 21:00 General NAD CV S1 S2 RRR no murmur/rub/gallop LUngs decreased breath sounds L mid lung field to base, crackles R base Abdomen soft NT/ND obese Extremities chronic venous changes, lymphedema ASSESSMENT AND PLAN: 61yo F with PMH HTN, afib on coumadin, hypothyroid, COPD and DM presented to the ER for dyspnea on exertion 1. Malignant L pleural effusion- s/p thoracentesis with cytology consistent with adenocarcinoma of Mullerian origin, rapid re-accumulation of fluid and pt will likely benefit from pleur-x catheter. family discussion with CT surgery this AM for catheter placement and pt now in agreement with placement. possible for today, CT surgery and pulmonary on board. possibly will require ICU monitoring post-op 2. Adenocarcinoma of muleerian origin-with diffuse mets. s/p liver bx. chemo port placement possible tomorrow if going for catheter placement today. will d/ w oncology about initiation of chemo inpatient vs outpatient. will need close monitoring 2. Afib on coumadin- rate controlled. was re-started on coumadin and now held for pending procedures. can bridge when INR <2. cont cardizem. 3. Hypomagnesemia- resolved 4. Morbid obesity- BMI 61. 5. Hypothyroid- cont LT4 6. DM- controlled. hold oral agents. cont iss, bgm 7. DVT ppx- hold anticoagulation for pending procedure. will be candidate for full dose lovenox
[2016-09-17] MEDS ORDERED: PROPOFOL 20 ML ONE (13:29)
[2016-09-17] MEDS ORDERED: KETAMINE HCL 200 MG/20 ML VIAL ONE (13:30)
[2016-09-17] MEDS ORDERED: MIDAZOLAM HCL 2 MG/2 ML SINGLE DOSE VIAL ONE (13:30)
[2016-09-17] MEDS ORDERED: LIDOCAINE 1%/EPI 1:100000 (50 ML MULTI DOSE VIAL) ONE (14:12)
[2016-09-17] MEDS ORDERED: ceFAZolin SODIUM 1 GM VIAL ONE ×2 (14:55→14:56)
[2016-09-17] MEDS ORDERED: ceFAZolin SODIUM 1 GM VIAL IVPB ONE (14:56)
[2016-09-17] MEDS ORDERED: LIDOCAINE 1%/EPI 1:100000 (50 ML MULTI DOSE VIAL) INF ONE (14:57)
[2016-09-17] MEDS ORDERED: LIDOCAINE HCL 2% JELLY (5 ML/TUBE) ONE (15:14)
[2016-09-17] MEDS ORDERED: GLYCOPYRROLATE 0.2 MG/1 ML VIAL ONE (15:33)
--- NOTE | 2016-09-17 15:56 | PATH ---
Surgical Pathology Report Patient Name: NEMO GAR Med. Rec. #: [id number] /Age/Gender: 1955 (Age: 61) / F Account: [id number] Location: [facility] MED/SURG Taken: 09/12/2016 Received: 09/12/2016 Reported: 09/17/2016 Physicians: Zachariah Espinoza M.D. Joseph Brill, M.D. Smitha Mellacheruvu, M.D. Specimen(s) Received LIVER BIOPSY Clinical History 61 yo female with extensive bilateral lung nodules in addition to large liver mass Final Diagnosis LIVER, US GUIDED CORE BIOPSY: INVOLVEMENT BY HIGH GRADE ADENOCARCINOMA, MOST COMPATIBLE WITH MULLERAIN ORIGIN (SEE COMMENT). Comment: Immunohistochemical stains performed and interpreted [facility] show the following: the tumor cells are positive for CK7 immunostain and are focally reactive for p63; the tumor cells are negative for ER and CK20. Additional immunohistochemical stains performed at [facility] ([id number]) and interpreted at [facility] show the following: the tumor cells are positive for PAX8, Ca125, p16 and p53 immunostains, focally reactive for Ca19.9 and are negative for Heppar-1, MECCA-3 and CDX2 immunostain;WT1 shows only weak non-specific reactivity. Overall, the findings are consistent with involvement by high grade adenocarcinoma, most compatible with Mullerian primary (serous carcinoma). Clinical and imaging correlations are suggested. Also refer to [id number] for the prior abdominal fluid cytology results. Electronically Signed Johann Eldridge M.D. Addendum Reported: 09/24/2016 Addendum Diagnosis DNA Mismatch Repair (MMR) protein expression analysis by IHC performed at the [facility], [place], [place] ([id number]) and interpreted [facility] shows the following: Results: hMLH-1 DNA Mismatch Repair Protein: Intact nuclear expression hMSH-2 DNA Mismatch Repair Protein: Intact nuclear expression hMSH-6 DNA Mismatch Repair Protein: Intact nuclear expression PMS2 DNA Mismatch Repair Protein: Intact nuclear expression Interpretation: No defect in DNA Mismatch Repair (MMR) protein expression is identified by IHC. This result is usually seen in MSI-H stable tumors and is not associated with HNPCC (Serna syndrome). Additional immunohistochemical stain for KS performed at the [place], [place] ([id number]) and interpreted at [facility] shows the following: the tumor cells are negative for ER. Results of Her2 IHC performed at [place], [place] ([id number]) and interpreted at [facility] are as follows: Her2 IHC (EP3 from [employer], formerly known as [id number], using [employer] Polymer Refine detection kit): 1+ (negative) Positive and negative controls (internal if applicable) show appropriate results. Johann Eldridge M.D. Gross Description Received in formalin labeled "liver mass tissue" are 4 logan, cylindrical portions of soft tissue ranging from 0.3-1.5 cm in length and averaging 0.1 cm in diameter. The specimens are submitted in toto in one cassette. 09/12/201609/12/2016
[2016-09-17] MEDS ORDERED: ONDANSETRON 4 MG/2 ML VIAL IVPUSH PRN (15:59)
[2016-09-17] MEDS ORDERED: LACTATED RINGERS SOLUTION 1,000 ML IV SCH (16:00)
[2016-09-17] MEDS ORDERED: oxyCODONE HCL 5 MG TABLET PO PRN ×2 (16:04)
[2016-09-17] MEDS ORDERED: ONDANSETRON 4 MG TABLET PO PRN (16:20)
[2016-09-17] MEDS ORDERED: guaiFENesin/D-M SUGAR-FREE/ACLHOL-FREE 118 ML BOTTLE PO PRN (16:20)
[2016-09-17] MEDS ORDERED: SENNOSIDES 8.6MG TABLET (FP) PO PRN (16:20)
[2016-09-17] MEDS ORDERED: ALBUTEROL SO4 0.083% IH SOL 2.5 MG/3 ML VIAL.NEB. NEB PRN (16:20)
--- NOTE | 2016-09-17 16:45 | OP ---
Operative Note - Note: Operative Date: 09/17/16 Pre-Operative Diagnosis: Left Malignant Effusion Operation: Left VATS placement of Pleur-x catheter Findings: Pleural nodules, trapped lung, over 2L serosanguineous fluid in chest. Post-Operative Diagnosis: Same as Pre-op Surgeon: Shaw Méndez Station Superintendent: China Perla Anesthesiologist/SOAP MIXER: Samuel Segal Anesthesia: MAC Estimated Blood Loss (mls): 10 Drains & Tubes with Location: Left chest pleur-x catheter Operative Report Dictated: Yes
--- NOTE | 2016-09-17 20:48 | PN ---
Progress Note (short form) - Note Progress Note: PULM/CCM -went for VATS/L pleurex -2L of sero-sang removed -minimal blood loss/tolerated well - for overnight observation Vital Signs Temp 97.6 F 09/17/16 17:37 Pulse 62 09/17/16 17:37 Resp 20 09/17/16 17:37 BP 114/66 09/17/16 17:37 Pulse Ox 99 09/17/16 17:37 Intake & Output 09/16/16 09/17/16 09/17/16 23:59 11:59 23:59 Intake Total 550 0 600 Output Total 2160 Balance 550 0 -1560 Weight 170.415 kg Intake: IV 600 IVPB 0 0 Oral 550 Output: Chest Tube Drainage 2150 Left Lateral Chest 50 Estimated Blood Loss 10 Other: Voiding Method Toilet Toilet # Unmeasured Voids Void 1 Bowel Movement Yes # Bowel Movements 3 Weight Measurement Method Standing Scale Active Medications Aclidinium [place] (Tudorza -) 1 puff IH BID [facility] Albuterol Sulfate (Ventolin 0.083% Nebulizer Soln -) 1 amp NEB Q4H PRN PRN Reason: SHORT OF BREATH/WHEEZING Atorvastatin Calcium (Lipitor -) 20 mg PO HS [facility] Diltiazem HCl (Cardizem Cd -) 300 mg PO DAILY [facility] Ferrous Sulfate (Feosol -) 325 mg PO DAILY [facility] Guaifenesin (Diabetic Tussin Dm -) 5 ml PO Q6H PRN PRN Reason: COUGH Lactated Ringer's (Lactated Ringers Solution) 1,000 mls @ 75 mls/hr IV ASDIR [facility] Last Admin: 09/17/16 17:49 Dose: 75 mls/hr Insulin Aspart (Novolog Vial Sliding Scale -) 1 vial SQ ACHS [facility] PRN Reason: Protocol Last Admin: 09/17/16 17:49 Dose: 2 units Levothyroxine Sodium (Synthroid -) 75 mcg PO DAILY@0700 [facility] Loratadine (Claritin -) 10 mg PO DAILY [facility] Montelukast Sodium (Singulair -) 10 mg PO HS [facility] [id number] Ethyl Esters (Lovaza -) 1 gm PO TID [facility] Ondansetron HCl (Zofran Injection) 4 mg IVPUSH Q6H PRN PRN Reason: NAUSEA AND/OR VOMITING Stop: 09/17/16 22:00 Ondansetron HCl (Zofran -) 8 mg PO Q4H PRN PRN Reason: NAUSEA AND/OR VOMITING Oxycodone HCl (Roxicodone -) 5 mg PO Q6H PRN PRN Reason: PAIN LEVEL 1-5 Oxycodone HCl (Roxicodone -) 10 mg PO Q6H PRN PRN Reason: PAIN LEVEL 6-10 Potassium Chloride (Potassium Chloride Oral Liquid) 10 meq PO DAILY [facility] Ranitidine HCl (Zantac -) 150 mg PO BID [facility] Senna (Senna -) 1 tab PO DAILY PRN Spironolactone (Aldactone -) 50 mg PO DAILY [facility] PE: Gen; awake, alert, INAD HEENT: PERRL PULM: weak inspiratory effort, diminished bilaterally CV: RRR ABD: Obese, NT EXT: + pulses x 4, severe lymphedema NEURO: intact, non focal Labs: CBC WBC 5.9 K/mm3 (4.0-10.0) 09/17/16 06:00 RBC 5.08 M/mm3 (3.60-5.2) 09/17/16 06:00 Hgb 12.7 GM/dL (10.7-15.3) 09/17/16 06:00 Hct 39.5 % (32.4-45.2) 09/17/16 06:00 MCV 77.7 fl (80-96) L 09/17/16 06:00 MCHC 32.1 g/dl (32.0-36.0) 09/17/16 06:00 RDW 17.3 % (11.6-15.6) H 09/17/16 06:00 Plt Count 222 K/MM3 (134-434) 09/17/16 06:00 MPV 9.8 fl (7.5-11.1) 09/17/16 06:00 Neutrophils % 65.6 % (42.8-82.8) 09/16/16 06:30 Lymphocytes % 18.5 % (8-40) 09/16/16 06:30 Monocytes % 12.7 % (3.8-10.2) H 09/16/16 06:30 Eosinophils % 2.1 % (0-4.5) 09/16/16 06:30 Basophils % 1.1 % (0-2.0) 09/16/16 06:30 CMP Sodium 132 mmol/L (136-145) L 09/17/16 06:00 Potassium 5.2 mmol/L (3.5-5.1) H 09/17/16 06:00 Chloride 97 mmol/L (98-107) L 09/17/16 06:00 Carbon Dioxide 25 mmol/L (21-32) 09/17/16 06:00 Anion Gap 10 (8-16) 09/17/16 06:00 BUN 13 mg/dL (7-18) 09/17/16 06:00 Creatinine 1.1 mg/dL (0.55-1.02) H 09/17/16 06:00 Creat Clearance w eGFR 50.50 (>60) 09/17/16 06:00 POC Glucometer 211 UNITS (()) 09/17/16 17:05 Random Glucose 252 mg/dL (74-106) H 09/17/16 06:00 Calcium 9.9 mg/dL (8.5-10.1) 09/17/16 06:00 Magnesium 2.2 mg/dL (1.8-2.4) 09/13/16 06:40 Total Bilirubin 0.5 mg/dL (0.2-1.0) D 09/17/16 06:00 AST 16 U/L (15-37) D 09/17/16 06:00 ALT 17 U/L (12-78) 09/17/16 06:00 Alkaline Phosphatase 123 U/L (45-117) H 09/17/16 06:00 Creatine Kinase 51 IU/L (26-192) 09/08/16 19:48 Troponin I < 0.02 ng/ml (0.00-0.05) 09/08/16 19:48 B-Natriuretic Peptide 441.31 pg/ml (5-125) H 09/08/16 19:48 Total Protein 7.0 g/dl (6.4-8.2) 09/17/16 06:00 Albumin 2.8 g/dl (3.4-5.0) L 09/17/16 06:00 Carcinoembryonic Ag 3.3 ng/mL (0.0-4.7) 09/10/16 06:30 CA 19-9 Antigen 25 U/mL (0-35) 09/10/16 06:30 CA 125 Antigen 153.0 U/mL (0.0-38.1) H 09/10/16 06:30 Problem List - Problems (1) A-fib Code(s): I48.91 - UNSPECIFIED ATRIAL FIBRILLATION (2) Acute dyspnea Code(s): R06.00 - DYSPNEA, UNSPECIFIED (3) HTN (hypertension) Code(s): I10 - ESSENTIAL (PRIMARY) HYPERTENSION (4) Morbidly obese Code(s): E66.01 - MORBID (SEVERE) OBESITY DUE TO EXCESS CALORIES (5) Pleural effusion Code(s): J90 - PLEURAL EFFUSION, NOT ELSEWHERE CLASSIFIED (6) Hypothyroid Code(s): E03.9 - HYPOTHYROIDISM, UNSPECIFIED (7) Lymphedema Code(s): I89.0 - LYMPHEDEMA, NOT ELSEWHERE CLASSIFIED (8) Pulmonary nodules/lesions, multiple Code(s): R91.8 - OTHER NONSPECIFIC ABNORMAL FINDING OF LUNG FIELD Assessment/Plan IMP DYSPNEA IMPROVED LARGE LEFT PLEURAL EFFUSION MALIGNANT BILATERAL PULMONARY NODULES C/W METS PRIMARY GYNECOLOGIC CHF AFIB HTN DM H/O ASTHMA HYPOTHYROID MORBID OBESITY PLAN - monitor pleurex chest tube output - pain control - holding coumadin x 2 days - incentive spirometer - ICU monitor overnight - chemo options being evaluated by Onc Raman Mejias ACNP [id number]
[2016-09-17] MEDS ORDERED: ATORVASTATIN CA 20 MG TABLET (FP) PO SCH (22:00)
[2016-09-17] MEDS ORDERED: MONTELUKAST NA 10 MG TABLET PO SCH (22:00)
[2016-09-17] MEDS ORDERED: PT OWN MED DRAWER 7, Y5N ONE ×2 (22:46→23:27)
[2016-09-18] MEDS: OMEGA-3 ACID ETHYL ESTERS (FATTY-ACIDS) 1 GM CAPSULE (FP) PO SCH ×4 (06:14→21:43)
[2016-09-18] MEDS ORDERED: LEVOTHYROXINE NA 75 MCG TABLET (FP) PO SCH (07:00)
[2016-09-18] MEDS: INSULIN SLIDING SCALE (NOVOLOG) 1 VIAL SQ SCH ×4 (07:03→21:43)
[2016-09-18 07:11] LABS: BASOPHIL 0.6 % (0-2.0); EOSINOPHIL 1.2 % (0-4.5); MCH 25.2 pg (25.7-33.7); MCHC 32.5 g/dl (32.0-36.0); MEAN CELL VOLUME 77.7 fl (80-96); MEAN PLT VOLUME 10.2 fl (7.5-11.1); PLATELET COUNT 191 K/MM3 (134-434); RDW 16.8 % (11.6-15.6); WHITE BLOOD COUNT 6.4 K/mm3 (4.0-10.0)
[2016-09-18 07:26] LABS: INR 2.34 (0.82-1.09); PROTHROMBIN TIME (PATIENT) 26.2 SEC (9.98-11.88)
--- NOTE | 2016-09-18 07:29 | PN ---
Progress Note, Physician Chief Complaint: Pt is dyspneic on minimal exertion. History of Present Illness: The patient is a 61 year old female, with a significant past medical history of Hypertension (on Cardizem), AFIB, diabetes, CHF, COPD, GERD and hypothyroidism , who presents to the emergency department with SOB for few days. Patient saw her PMD 2 days ago with the same complaint who was supposed to prescribe her breathing treatment pumps, but patient states that the pumps were never sent by her doctor which prompted her to present to the ED. Patient denies any new leg swelling. Patient reports orthopnea and states that she sleeps with 2 pillows. She notes that she is cold but denies any fever. She reports normal bowel movements. She denies any chest pain. She denies any hx of hernia. PSH - none PMD - Dr. Brambila - Current Medication List Current Medications: Active Medications Aclidinium [place] (Tudorza -) 1 puff IH BID [facility] Last Admin: 09/17/16 23:20 Dose: 1 puff Albuterol Sulfate (Ventolin 0.083% Nebulizer Soln -) 1 amp NEB Q4H PRN PRN Reason: SHORT OF BREATH/WHEEZING Last Admin: 09/17/16 23:00 Dose: 1 amp Atorvastatin Calcium (Lipitor -) 20 mg PO [facility] Last Admin: 09/17/16 22:49 Dose: 20 mg Diltiazem HCl (Cardizem Cd -) 300 mg PO DAILY [facility] Ferrous Sulfate (Feosol -) 325 mg PO DAILY [facility] Guaifenesin (Diabetic Tussin Dm -) 5 ml PO Q6H PRN PRN Reason: COUGH Lactated Ringer's (Lactated Ringers Solution) 1,000 mls @ 75 mls/hr IV ASDIR [facility] Last Admin: 09/17/16 17:49 Dose: 75 mls/hr Insulin Aspart (Novolog Vial Sliding Scale -) 1 vial SQ ACHS [facility] PRN Reason: Protocol Last Admin: 09/18/16 07:03 Dose: 4 units Levothyroxine Sodium (Synthroid -) 75 mcg PO DAILY@0700 [facility] Last Admin: 09/18/16 06:14 Dose: 75 mcg Loratadine (Claritin -) 10 mg PO DAILY [facility] Montelukast Sodium (Singulair -) 10 mg PO [facility] Last Admin: 09/17/16 22:50 Dose: 10 mg Pnoal-4-Mndv Ethyl Esters (Lovaza -) 1 gm PO TID [facility] Last Admin: 09/18/16 06:14 Dose: 1 gm Ondansetron HCl (Zofran -) 8 mg PO Q4H PRN PRN Reason: NAUSEA AND/OR VOMITING Oxycodone HCl (Roxicodone -) 5 mg PO Q6H PRN PRN Reason: PAIN LEVEL 1-5 Oxycodone HCl (Roxicodone -) 10 mg PO Q6H PRN PRN Reason: PAIN LEVEL 6-10 Potassium Chloride (Potassium Chloride Oral Liquid) 10 meq PO DAILY [facility] Ranitidine HCl (Zantac -) 150 mg PO BID [facility] Last Admin: 09/17/16 22:50 Dose: 150 mg Senna (Senna -) 1 tab PO DAILY PRN Spironolactone (Aldactone -) 50 mg PO DAILY [facility] - Objective Vital Signs: Vital Signs Temperature 98.6 F 09/18/16 02:00 Pulse Rate 82 09/18/16 03:00 Respiratory Rate 18 09/18/16 03:00 Blood Pressure 105/59 09/18/16 03:00 O2 Sat by Pulse Oximetry (%) 99 09/17/16 22:00 Constitutional: Yes: Anxious Eyes: Yes: WNL HENT: Yes: WNL Neck: Yes: WNL Cardiovascular: Yes: Pulse Irregular Respiratory: Yes: Diminished, Tachypnea Gastrointestinal: Yes: Soft ...Rectal Exam: Yes: Deferred Genitourinary: No: Anuria Musculoskeletal: Yes: Muscle Weakness Extremities: Yes: Cool Edema: No Peripheral Pulses WNL: Yes Integumentary: Yes: WNL Neurological: Yes: Alert, Oriented, Weakness Psychiatric: Yes: Alert, Oriented Labs: CBC, BMP 09/18/16 05:38 INR, PTT INR 2.18 (0.82-1.09) H 09/17/16 06:00 - ....Imaging Cat Scan: Image Reviewed (CT chest: left pleural effusion; multiple bilateral metastases) EKG: Image Reviewed (AF) Problem List - Problems (1) A-fib Assessment/Plan: On diltiazem. Recommend repeat ECHO (unable to assess LVEF or valve status on initial ECHO due to poor acoustic windows). Warfarin held pending pleur-x cath planned for today. Code(s): I48.91 - UNSPECIFIED ATRIAL FIBRILLATION (2) Acute dyspnea Code(s): R06.00 - DYSPNEA, UNSPECIFIED (3) Acute renal insufficiency Code(s): N28.9 - DISORDER OF KIDNEY AND URETER, UNSPECIFIED (4) CHF exacerbation Assessment/Plan: On diltiazem and Aldactone. f/u repeat ECHO for LVEF. For pleur-x cath and drainage of pleural effusion today. Code(s): I50.9 - HEART FAILURE, UNSPECIFIED (5) HTN (hypertension) Assessment/Plan: On diltiazem and Aldactone. Code(s): I10 - ESSENTIAL (PRIMARY) HYPERTENSION (6) Morbidly obese Code(s): E66.01 - MORBID (SEVERE) OBESITY DUE TO EXCESS CALORIES (7) Pleural effusion Assessment/Plan: for pleur-x cath/drainage today. Code(s): J90 - PLEURAL EFFUSION, NOT ELSEWHERE CLASSIFIED (8) Supratherapeutic INR Code(s): R79.1 - ABNORMAL COAGULATION PROFILE (9) Cancer Assessment/Plan: adenocarcinoma with metastases. Code(s): C80.1 - MALIGNANT (PRIMARY) NEOPLASM, UNSPECIFIED
[2016-09-18 07:35] LABS: CALCIUM 8.7 mg/dL (8.5-10.1); COCKROFT - GAULT 176.5875; CREATININE 0.9 mg/dL (0.55-1.02)
--- NOTE | 2016-09-18 07:47 | PN ---
Physical Exam: SUBJECTIVE: Patient seen and examined by me at bedside. No overnight events noted. Patient reports she is breathing much better but still has a cough. She reports no pain in her left chest where the tube is. Otherwise, patient denies fever, chills, nausea, vomiting, abdominal pain, chest pain, palpitations , shortness of breath. OBJECTIVE: Vital Signs Period Temp Pulse Resp BP Sys/Dinero Pulse Ox Last 24 Hr 97.6 F-98.6 F 62-101 16-22 97-125/55-98 98-100 GENERAL: The patient is awake, alert, and fully oriented, in no acute distress. LUNGS: Decreased breath sounds throughout left lung bases with no crackles or wheezes. Left chest tube. On 2L oxygen HEART: Irregularly irregular, normal S1 and S2 without murmur, rub or gallop. ABDOMEN: Soft, Obese, nontender, nondistended, normoactive bowel sounds. EXTREMITIES: B/L lower extremity chronic venous changes with lymphedema and scaly dry skin. Laboratory Results - last 24 hr 09/17/16 09/17/16 09/17/16 06:00 06:00 06:00 WBC RBC Hgb Hct MCV MCHC RDW Plt Count MPV Neutrophils % Lymphocytes % Monocytes % Eosinophils % Basophils % INR 2.18 H PTT (Actin FS) 37.5 H Sodium 132 L Potassium 5.2 H Chloride 97 L Carbon Dioxide 25 Anion Gap 10 BUN 13 Creatinine 1.1 H Creat Clearance w eGFR 50.50 POC Glucometer Random Glucose 252 H Calcium 9.9 Total Bilirubin 0.5 D AST 16 D ALT 17 Alkaline Phosphatase 123 H Total Protein 7.0 Albumin 2.8 L Blood Type Antibody Screen 09/17/16 09/17/16 09/17/16 10:05 11:40 17:05 WBC RBC Hgb Hct MCV MCHC RDW Plt Count MPV Neutrophils % Lymphocytes % Monocytes % Eosinophils % Basophils % INR PTT (Actin FS) Sodium Potassium Chloride Carbon Dioxide Anion Gap BUN Creatinine Creat Clearance w eGFR POC Glucometer 231 211 Random Glucose Calcium Total Bilirubin AST ALT Alkaline Phosphatase Total Protein Albumin Blood Type O NEGATIVE Antibody Screen Negative 09/17/16 09/18/16 09/18/16 23:20 05:38 05:38 WBC 6.4 RBC 4.72 Hgb 11.9 Hct 36.7 MCV 77.7 L MCHC 32.5 RDW 16.8 H Plt Count 191 MPV 10.2 Neutrophils % 70.0 Lymphocytes % 14.4 D Monocytes % 13.8 H Eosinophils % 1.2 Basophils % 0.6 INR PTT (Actin FS) Sodium 136 Potassium 5.0 Chloride 100 Carbon Dioxide 25 Anion Gap 11 BUN 11 Creatinine 0.9 Creat Clearance w eGFR POC Glucometer [phone] Random Glucose 200 H D Calcium 8.7 Total Bilirubin AST ALT Alkaline Phosphatase Total Protein Albumin Blood Type Antibody Screen 09/18/16 07:00 WBC RBC Hgb Hct MCV MCHC RDW Plt Count MPV Neutrophils % Lymphocytes % Monocytes % Eosinophils % Basophils % INR PTT (Actin FS) Sodium Potassium Chloride Carbon Dioxide Anion Gap BUN Creatinine Creat Clearance w eGFR POC Glucometer [phone] Random Glucose Calcium Total Bilirubin AST ALT Alkaline Phosphatase Total Protein Albumin Blood Type Antibody Screen Active Medications Generic Name Dose Route Start Last Admin Trade Name Freq PRN Reason Stop Dose Admin Aclidinium [place] 1 puff 09/17/16 22:00 09/17/16 23:20 Tudorza - IH 1 puff BID [facility]IO Administration Albuterol Sulfate 1 amp 09/17/16 16:20 09/17/16 23:00 Ventolin 0.083% Nebulizer Soln - NEB 1 amp Q4H PRN Administration SHORT OF BREATH/WHEEZING Atorvastatin Calcium 20 mg 09/17/16 22:00 09/17/16 22:49 Lipitor - PO 20 mg HS [facility]IO Administration Diltiazem HCl 300 mg 09/18/16 10:00 Cardizem Cd - PO DAILY [facility] Ferrous Sulfate 325 mg 09/18/16 10:00 Feosol - PO DAILY [facility] Guaifenesin 5 ml 09/17/16 16:20 Diabetic Tussin Dm - PO Q6H PRN COUGH Lactated Ringer's 1,000 mls @ 75 mls/hr 09/17/16 16:00 09/17/16 17:49 Lactated Ringers Solution IV 75 mls/hr ASDIR [facility]IO Administration Insulin Aspart 1 vial 09/17/16 16:30 09/18/16 07:03 Novolog Vial Sliding Scale - SQ 4 units ACHS VIRGILIO Administration Protocol Levothyroxine Sodium 75 mcg 09/18/16 07:00 09/18/16 06:14 Synthroid - PO 75 mcg DAILY@0700 [facility] Administration Loratadine 10 mg 09/18/16 10:00 Claritin - PO DAILY [facility] Montelukast Sodium 10 mg 09/17/16 22:00 09/17/16 22:50 Singulair - PO 10 mg HS [facility] Administration [id number] Ethyl Esters 1 gm 09/17/16 22:00 09/18/16 06:14 Lovaza - PO 1 gm TID [facility] Administration Ondansetron HCl 8 mg 09/17/16 16:20 Zofran - PO Q4H PRN NAUSEA AND/OR VOMITING Oxycodone HCl 5 mg 09/17/16 16:04 Roxicodone - PO Q6H PRN PAIN LEVEL 1-5 Oxycodone HCl 10 mg 09/17/16 16:04 Roxicodone - PO Q6H PRN PAIN LEVEL 6-10 Potassium Chloride 10 meq 09/18/16 10:00 Potassium Chloride Oral Liquid PO DAILY [facility] Ranitidine HCl 150 mg 09/17/16 22:00 09/17/16 22:50 Zantac - PO 150 mg BID [facility] Administration Senna 1 tab 09/17/16 16:20 Senna - PO DAILY PRN Spironolactone 50 mg 09/18/16 10:00 Aldactone - PO DAILY [facility] Images: Chest X-ray (09/08/16): Moderate left pleural effusion with compressive atelectasis. Multiple lung nodules - lung metastasis. Chest CT w/ Contrast (09/08/16): Innumerable bilateral pulmonary nodules, moderate to large left pleural effusion, and mediastinal and hilar lymphadenopathy are highly suspicious for metastatic disease. 2.9 cm hypodense mass is seen in the left lobe of the liver. Thoracocentesis under U/S guide (09/09/16) Chest X-ray (09/09/16): Decreased Pleural Effusion. No Pneumothorax seen. CT Abdomen and pelvis (09/10/16): CT abd/pelvis shows multiple metastatic pulmonary nodules, moderate left pleural effusion, hypodense left hepatic lobe mass, possible hypodense right hepatic lobe mass, diverticulosis ASSESSMENT/PLAN: Patient is a 61 year old female with PMHx of HTN, A.fib on Coumadin, DMII, CHF, COPD, GERD and hypothyroidism who presented for dyspnea and was found to have a large left pleural effusion with multiple nodules on chest x-ray. Patient admitted for further monitoring and management. Dyspnea Secondary to Malignant Pleural Effusions -S/P thoracentesis 09/09/16 and cytology was positive for malignant cells. 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 Would like a Chemo port placed for chemotherapy. Will discuss if chemo can be done inpatient or outpatient -Vascular consult placed Anticholinergic Syndrome- Resolved -Will continue to monitor Asthma/COPD -No history of smoking -Continue with Albuterol PRN -Tudorza/Spiriva discontinued due to Anticholinergic syndrome -Pulmonology consult appreciated Hypomagnesemia-resolved -Will continue to monitor Atrial Fibrillation -Coumadin on hold for at least 2 days, as per CT surgeon -Continue Diltiazem Cd 300mg daily Systolic CHF- Chronic -No acute exacerbation at the time -Aldactone 50mg daily resumed -Daily weight -Hold lasix for hypotension -ECHO done and no global hypokinesis DMII -BGM ACHS -Novolog sliding scale HTN -Borderline Hypotensive -Hold Losartan 50mg daily -Hold Lasix -Continue to monitor BP HLD -Continue Lipitor 20mg Hypothyroidism -Continue Levothyroxine 75mcg daily GERD -Continue Ranitidine 150mg BID Morbid Obesity -Bariatric referral as outpatient F/E/N -On no fluids -Electrolytes wnl -Diabetic diet Prophylaxis -SCD's for DVT. Coumadin on hold. Will begin Lovenox tomorrow Disposition -S/P VATS/ Left pleurex. Continue to monitor in ICU and will consider port cath for chemo Visit type - Emergency Visit Emergency Visit: Yes ED Registration Date: 09/08/16 Care time: The patient presented to the Emergency Department on the above date and was hospitalized for further evaluation of their emergent condition. - New Patient This patient is new to me today: No - Critical Care Critical Care patient: No
--- NOTE | 2016-09-18 08:23 | PN ---
Progress Note (short form) - Note Progress Note: Surgery- Dr. Méndez Patient seen and examined. Patient is feeling better, breathing better than yesterday. Pain controlled. Last Vital Signs Temp Pulse Resp BP Pulse Ox 98 F 76 18 107/74 99 09/18/16 06:00 09/18/16 06:00 09/18/16 06:00 09/18/16 06:00 09/17/16 22:00 CBC, BMP 09/18/16 05:38 09/18/16 05:38 INR, PTT INR 2.34 (0.82-1.09) H 09/18/16 05:38 Exam: Gen: NAD Resp: breath sounds bilat at apices, diminished bases left chest with dressing c /d/i, tube in place, to suction, serosanguineous drainage, no air leak A/P POD#1 s/p Left VATS placement of Pleur-x catheter Continue to low wall suction Daily CXR Tubing stripped on rounds INR 2.34, continue to hold AC, follow INR Will need vascular consult for port placement
[2016-09-18] MEDS ORDERED: PT OWN MED DRAWER 7, Y5N ONE ×3 (09:10→12:56)
[2016-09-18] MEDS: RANITIDINE HCL 150 MG TABLET (FP) PO SCH ×2 (09:26→21:43)
[2016-09-18] MEDS: ACLIDINIUM BROMIDE 400 MCG/INH AERO.POWD IH SCH ×2 (09:26→21:44)
--- NOTE | 2016-09-18 09:52 | PN ---
Teaching Attending Note Name of Resident: Natasha Hodge ATTENDING PHYSICIAN STATEMENT I saw and evaluated the patient. I reviewed the resident's note and discussed the case with the resident. I agree with the resident's findings and plan as documented. SUBJECTIVE:states breathing has improved. continues to have cough on deep inspiration but non productive. mild tenderness at tube insertion site. denies CP, fever, chills, N/V/C/D OBJECTIVE: Last Vital Signs Temp Pulse Resp BP Pulse Ox 98 F 78 18 108/66 97 09/18/16 06:00 09/18/16 08:00 09/18/16 08:00 09/18/16 08:00 09/18/16 09:00 Intake & Output 09/15/16 09/16/16 09/17/16 09/18/16 23:59 23:59 23:59 23:59 Intake Total 520 381 913 9557 Output Total 2160 110 Balance 520 550 -1560 890 Weight 374 lb 8 oz 375 lb 1 oz 375 lb 11.2 oz 376 lb 12.32 oz General NAD CV S1 S2 RRR no murmur/rub/gallop LUngs diminshed breath sounds B/L increased at apices. L chest tube in place, bandage c/d/i, draining serosangenous fluid. no air leak Abdomen soft NT/ND obese Extremities chronic venous changes, lymphedema ASSESSMENT AND PLAN: 61yo F with PMH HTN, afib on coumadin, hypothyroid, COPD and DM presented to the ER for dyspnea on exertion 1. Malignant L pleural effusion- s/p thoracentesis with cytology consistent with adenocarcinoma of Mullerian origin, s/p VATS and pleurx placement 09/17 with 2L removal on insertion. MICU for observation. CT surgery and pulmonary on board. 2. Adenocarcinoma of muleerian origin-with diffuse mets. s/p liver bx. consult vascular for chemoport placement. will d/w oncology about initiation of chemo inpatient vs outpatient. will need close monitoring as outpatient 2. Afib on coumadin- rate controlled. coumadin on hold due to procedure yesterday and possible pending procedure. will re-start tomorrow after port placement. cont cardizem. 3. Hypomagnesemia- resolved 4. Morbid obesity- BMI 61. 5. Hypothyroid- cont LT4 6. DM- controlled. hold oral agents. cont iss, bgm 7. DVT ppx-SCD. re-start coumadin once no further intention for coumadin. will need to be bridged 8. MICU post-op monitoring. can be transferred back to medical floors if ok with CT surgery The care of this patient involved high complexity decision making to prevent further life threatening deterioration of the patient's condition and/or to evalute & treat vital organ system(s) failure or risk of failure. 35 minutes critical care time
[2016-09-18] MEDS ORDERED: LORATADINE 10 MG TABLET PO SCH (10:00)
[2016-09-18] MEDS ORDERED: SPIRONOLACTONE 25 MG TABLET (FP) PO SCH (10:00)
[2016-09-18] MEDS ORDERED: FERROUS SO4 325 MG TABLET (FP) PO SCH (10:00)
[2016-09-18] MEDS ORDERED: POTASSIUM CHLORIDE ORAL LIQUID 20 MEQ/15 ML PO SCH (10:00)
--- NOTE | 2016-09-18 11:31 | PN ---
Physical Exam: SUBJECTIVE: Patient seen and examined. She is complaining of chest pain when coughing. She denies headache, SOB, fever, chills. OBJECTIVE: Vital Signs Period Temp Pulse Resp BP Sys/Dinero Pulse Ox Last 24 Hr 97.6 F-98.6 F 62-101 16-22 97-125/55-82 96-100 GENERAL: The patient is awake, alert, and fully oriented, in no acute distress, pale appearance. HEAD: Normal with no signs of trauma. EYES: extraocular movements intact, sclera anicteric, conjunctiva clear. ENT: oropharynx clear without exudates, moist mucous membranes. NECK: Trachea midline, full range of motion, supple. LUNGS: Breath sounds equal, diminished breath sounds on left side, chest tube draining serosanguineous fluid, no wheezes, no crackles, no accessory muscle use. HEART: irregular rate and rhythm, S1, S2 without murmur, rub or gallop. ABDOMEN: Obese, Soft, nontender, nondistended, normoactive bowel sounds, no guarding, no rebound, not able to assess organomegaly due to obesity. EXTREMITIES: 2+ pulses, warm, 1+ edema. NEUROLOGICAL: Normal speech, no facial asymmetry, gait not observed. PSYCH: Normal mood, normal affect. SKIN: Warm, dry, normal turgor, dry whitish skin change in LE B/L. Laboratory Results - last 24 hr 09/17/16 09/17/16 09/17/16 11:40 17:05 23:20 WBC RBC Hgb Hct MCV MCHC RDW Plt Count MPV Neutrophils % Lymphocytes % Monocytes % Eosinophils % Basophils % INR Sodium Potassium Chloride Carbon Dioxide Anion Gap BUN Creatinine POC Glucometer 231 [phone] Random Glucose Calcium 09/18/16 09/18/16 09/18/16 05:38 05:38 05:38 WBC 6.4 RBC 4.72 Hgb 11.9 Hct 36.7 MCV 77.7 L MCHC 32.5 RDW 16.8 H Plt Count 191 MPV 10.2 Neutrophils % 70.0 Lymphocytes % 14.4 D Monocytes % 13.8 H Eosinophils % 1.2 Basophils % 0.6 INR 2.34 H Sodium 136 Potassium 5.0 Chloride 100 Carbon Dioxide 25 Anion Gap 11 BUN 11 Creatinine 0.9 POC Glucometer Random Glucose 200 H D Calcium 8.7 09/18/16 07:00 WBC RBC Hgb Hct MCV MCHC RDW Plt Count MPV Neutrophils % Lymphocytes % Monocytes % Eosinophils % Basophils % INR Sodium Potassium Chloride Carbon Dioxide Anion Gap BUN Creatinine POC Glucometer [phone] Random Glucose Calcium Active Medications Generic Name Dose Route Start Last Admin Trade Name Freq PRN Reason Stop Dose Admin Aclidinium [place] 1 puff 09/17/16 22:00 09/18/16 09:26 Tudorza - IH 1 puff BID VIRGILIO Administration Albuterol Sulfate 1 amp 09/17/16 16:20 09/17/16 23:00 Ventolin 0.083% Nebulizer Soln - NEB 1 amp Q4H PRN Administration SHORT OF BREATH/WHEEZING Atorvastatin Calcium 20 mg 09/17/16 22:00 09/17/16 22:49 Lipitor - PO 20 mg HS VIRGILIO Administration Diltiazem HCl 300 mg 09/18/16 10:00 09/18/16 09:27 Cardizem Cd - PO 300 mg DAILY VIRGILIO Administration Ferrous Sulfate 325 mg 09/18/16 10:00 09/18/16 09:27 Feosol - PO 325 mg DAILY VIRGILIO Administration Guaifenesin 5 ml 09/17/16 16:20 Diabetic Tussin Dm - PO Q6H PRN COUGH Insulin Aspart 1 vial 09/17/16 16:30 09/18/16 10:55 Novolog Vial Sliding Scale - SQ 4 units ACHS VIRGILIO Administration Protocol Levothyroxine Sodium 75 mcg 09/18/16 07:00 09/18/16 06:14 Synthroid - PO 75 mcg DAILY@0700 VIRGILIO Administration Loratadine 10 mg 09/18/16 10:00 09/18/16 09:26 Claritin - PO 10 mg DAILY VIRGILIO Administration Montelukast Sodium 10 mg 09/17/16 22:00 09/17/16 22:50 Singulair - PO 10 mg HS VIRGILIO Administration Txexg-2-Ywtg Ethyl Esters 1 gm 09/17/16 22:00 09/18/16 06:14 Lovaza - PO 1 gm TID VIRGILIO Administration Ondansetron HCl 8 mg 09/17/16 16:20 Zofran - PO Q4H PRN NAUSEA AND/OR VOMITING Oxycodone HCl 5 mg 09/17/16 16:04 Roxicodone - PO Q6H PRN PAIN LEVEL 1-5 Oxycodone HCl 10 mg 09/17/16 16:04 Roxicodone - PO Q6H PRN PAIN LEVEL 6-10 Ranitidine HCl 150 mg 09/17/16 22:00 09/18/16 09:26 Zantac - PO 150 mg BID VIRGILIO Administration Senna 1 tab 09/17/16 16:20 Senna - PO DAILY PRN Spironolactone 50 mg 09/18/16 10:00 09/18/16 09:27 Aldactone - PO 50 mg DAILY VIRGILIO Administration ASSESSMENT/PLAN: Patient is a 61 year old female with PMHx of HTN, A.fib on Coumadin, DMII, CHF, COPD, GERD and hypothyroidism who presented for dyspnea and was admitted for dyspnea secondary to malignant pleural effusion. 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 -Vascular consult placed for chemo port Asthma/COPD -Continue with Albuterol PRN, oxygen -Tudorza/Spiriva discontinued due to Anticholinergic syndrome -f/u Pulmonology Atrial Fibrillation -Coumadin on hold for at least 2 days, as per CT surgeon -Continue Diltiazem Cd 300mg daily Systolic CHF- Chronic -No acute exacerbation at the time -Aldactone 50mg daily resumed -Daily weight -Hold lasix for hypotension -ECHO done DMII -BGM ACHS -ISS HTN -no home meds -Continue to monitor BP HLD -Continue Lipitor 20mg Hypothyroidism -Continue Levothyroxine 75mcg daily GERD -Continue Ranitidine 150mg BID Morbid Obesity -Bariatric referral as outpatient F/E/N -On no fluids -Electrolytes wnl -Diabetic diet Prophylaxis -SCD's for DVT. Coumadin on hold for 2 days. Disposition monitor in ICU for now but can be transferred to med surg Problem List - Problems (1) A-fib Code(s): I48.91 - UNSPECIFIED ATRIAL FIBRILLATION (2) Acute dyspnea Code(s): R06.00 - DYSPNEA, UNSPECIFIED (3) CHF exacerbation Code(s): I50.9 - HEART FAILURE, UNSPECIFIED (4) Cancer Code(s): C80.1 - MALIGNANT (PRIMARY) NEOPLASM, UNSPECIFIED (5) HTN (hypertension) Code(s): I10 - ESSENTIAL (PRIMARY) HYPERTENSION (6) Morbidly obese Code(s): E66.01 - MORBID (SEVERE) OBESITY DUE TO EXCESS CALORIES (7) Pleural effusion Code(s): J90 - PLEURAL EFFUSION, NOT ELSEWHERE CLASSIFIED (8) Pulmonary nodules/lesions, multiple Code(s): R91.8 - OTHER NONSPECIFIC ABNORMAL FINDING OF LUNG FIELD Visit type - Emergency Visit Emergency Visit: Yes ED Registration Date: 09/08/16 Care time: The patient presented to the Emergency Department on the above date and was hospitalized for further evaluation of their emergent condition. - New Patient This patient is new to me today: Yes Date on this admission: 09/18/16 - Critical Care Critical Care patient: Yes Total Critical Care Time (in minutes): 40 Critical Care Statement: The care of this patient involved high complexity decision making to prevent further life threatening deterioration of the patient 's condition and/or to evalute & treat vital organ system(s) failure or risk of failure.
--- NOTE | 2016-09-18 11:45 | PN ---
Progress Note, Physician History of Present Illness: The patient is a 61 year old female, with a significant past medical history of Hypertension (on Cardizem), AFIB, diabetes, CHF, COPD, GERD and hypothyroidism , who presents to the emergency department on with SOB for few days. Patient saw her PMD 2 days ago with the same complaint who was supposed to prescribe her breathing treatment pumps, but patient states that the pumps were never sent by her doctor which prompted her to present to the ED. Patient denies any new leg swelling. Patient reports orthopnea and states that she sleeps with 2 pillows. She notes that she is cold but denies any fever. She reports normal bowel movements. Duringh hospital course she was diagnosed with; 1. 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 Permanent atrial fibrillation - Continue Cardizem CD for rate control - Continue Coumadin 3. Hypomagnesemia - Improved 4. Morbid obesity with BMI 62.4 5. Hypothyroidism - Continue Synthroid 6. Type 2 DM - Continue Novolog sliding scale 7. HTN - Continue Cardizem - Cozaar, Aldactone held secondary to low BP and increasing creatinine 8. Hyperlipidemia - Continue Lipitor, Lovaza 9. COPD - Continue Tudorza, Singulair, Albuterol as needed 10. Chronic systolic heart failure - Cozaar, Aldactone held secondary to low BP - Current Medication List Current Medications: Active Medications Aclidinium [place] (Tudorza -) 1 puff IH BID [facility] Last Admin: 09/18/16 09:26 Dose: 1 puff Albuterol Sulfate (Ventolin 0.083% Nebulizer Soln -) 1 amp NEB Q4H PRN PRN Reason: SHORT OF BREATH/WHEEZING Last Admin: 09/17/16 23:00 Dose: 1 amp Atorvastatin Calcium (Lipitor -) 20 mg PO HS [facility] Last Admin: 09/17/16 22:49 Dose: 20 mg Diltiazem HCl (Cardizem Cd -) 300 mg PO DAILY [facility] Last Admin: 09/18/16 09:27 Dose: 300 mg Ferrous Sulfate (Feosol -) 325 mg PO DAILY [facility] Last Admin: 09/18/16 09:27 Dose: 325 mg Guaifenesin (Diabetic Tussin Dm -) 5 ml PO Q6H PRN PRN Reason: COUGH Insulin Aspart (Novolog Vial Sliding Scale -) 1 vial SQ ACHS [facility] PRN Reason: Protocol Last Admin: 09/18/16 10:55 Dose: 4 units Levothyroxine Sodium (Synthroid -) 75 mcg PO DAILY@0700 [facility] Last Admin: 09/18/16 06:14 Dose: 75 mcg Loratadine (Claritin -) 10 mg PO DAILY [facility] Last Admin: 09/18/16 09:26 Dose: 10 mg Montelukast Sodium (Singulair -) 10 mg PO HS [facility] Last Admin: 09/17/16 22:50 Dose: 10 mg Irqyj-6-Valp Ethyl Esters (Lovaza -) 1 gm PO TID [facility] Last Admin: 09/18/16 06:14 Dose: 1 gm Ondansetron HCl (Zofran -) 8 mg PO Q4H PRN PRN Reason: NAUSEA AND/OR VOMITING Oxycodone HCl (Roxicodone -) 5 mg PO Q6H PRN PRN Reason: PAIN LEVEL 1-5 Oxycodone HCl (Roxicodone -) 10 mg PO Q6H PRN PRN Reason: PAIN LEVEL 6-10 Ranitidine HCl (Zantac -) 150 mg PO BID [facility] Last Admin: 09/18/16 09:26 Dose: 150 mg Senna (Senna -) 1 tab PO DAILY PRN Spironolactone (Aldactone -) 50 mg PO DAILY [facility] Last Admin: 09/18/16 09:27 Dose: 50 mg - Objective Vital Signs: Vital Signs Temperature 97.9 F 09/18/16 10:24 Pulse Rate 80 09/18/16 10:00 Respiratory Rate 18 09/18/16 10:00 Blood Pressure 122/76 09/18/16 10:00 O2 Sat by Pulse Oximetry (%) 96 09/18/16 10:42 Eyes: Yes: WNL, Conjunctiva Clear, EOM Intact HENT: Yes: WNL, Atraumatic, Normocephalic Neck: Yes: WNL, Supple, Trachea Midline Cardiovascular: Yes: WNL, Regular Rate and Rhythm Respiratory: Yes: Diminished, Other (left CT in place) Gastrointestinal: Yes: WNL, Normal Bowel Sounds Genitourinary: Yes: WNL Musculoskeletal: Yes: WNL Extremities: Yes: WNL Edema: No Integumentary: Yes: WNL Neurological: Yes: WNL, Alert, Oriented ...Motor Strength: WNL Psychiatric: Yes: WNL Labs: CBC, BMP 09/18/16 05:38 09/18/16 05:38 INR, PTT INR 2.34 (0.82-1.09) H 09/18/16 05:38 Problem List - Problems (1) A-fib Code(s): I48.91 - UNSPECIFIED ATRIAL FIBRILLATION (2) Acute dyspnea Code(s): R06.00 - DYSPNEA, UNSPECIFIED (3) Acute renal insufficiency Code(s): N28.9 - DISORDER OF KIDNEY AND URETER, UNSPECIFIED (4) CHF exacerbation Code(s): I50.9 - HEART FAILURE, UNSPECIFIED (5) Cellulitis Code(s): L03.90 - CELLULITIS, UNSPECIFIED Qualifiers: Site of cellulitis: extremity Site of cellulitis of extremity: lower extremity Laterality: left Qualified Code(s): L03.116 - Cellulitis of left lower limb (6) HTN (hypertension) Code(s): I10 - ESSENTIAL (PRIMARY) HYPERTENSION (7) Morbidly obese Code(s): E66.01 - MORBID (SEVERE) OBESITY DUE TO EXCESS CALORIES (8) Pleural effusion Code(s): J90 - PLEURAL EFFUSION, NOT ELSEWHERE CLASSIFIED (9) Pulmonary nodules/lesions, multiple Code(s): R91.8 - OTHER NONSPECIFIC ABNORMAL FINDING OF LUNG FIELD (10) Supratherapeutic INR Code(s): R79.1 - ABNORMAL COAGULATION PROFILE (11) Hypothyroid Code(s): E03.9 - HYPOTHYROIDISM, UNSPECIFIED (12) Lymphedema Code(s): I89.0 - LYMPHEDEMA, NOT ELSEWHERE CLASSIFIED (13) Hematuria Code(s): R31.9 - HEMATURIA, UNSPECIFIED Assessment/Plan - Problems (1) A-fib Assessment/Plan: On diltiazem. Recommend repeat ECHO (unable to assess LVEF or valve status on initial ECHO due to poor acoustic windows). Warfarin held pending pleur-x cath planned for today. Code(s): I48.91 - UNSPECIFIED ATRIAL FIBRILLATION (2) Acute dyspnea Code(s): R06.00 - DYSPNEA, UNSPECIFIED (3) Acute renal insufficiency Code(s): N28.9 - DISORDER OF KIDNEY AND URETER, UNSPECIFIED (4) CHF exacerbation Assessment/Plan: On diltiazem and Aldactone. f/u repeat ECHO for LVEF. For pleur-x cath and drainage of pleural effusion today. Code(s): I50.9 - HEART FAILURE, UNSPECIFIED (5) HTN (hypertension) Assessment/Plan: On diltiazem and Aldactone. Code(s): I10 - ESSENTIAL (PRIMARY) HYPERTENSION (6) Morbidly obese Code(s): E66.01 - MORBID (SEVERE) OBESITY DUE TO EXCESS CALORIES (7) Pleural effusion Assessment/Plan: s/p L VATS Code(s): J90 - PLEURAL EFFUSION, NOT ELSEWHERE CLASSIFIED (8) Supratherapeutic INR Code(s): R79.1 - ABNORMAL COAGULATION PROFILE (9) Cancer Assessment/Plan: adenocarcinoma with metastases. as per oncology Code(s): C80.1 - MALIGNANT (PRIMARY) NEOPLASM, UNSPECIFIED CCtime 35 min
[2016-09-18] MEDS ORDERED: oxyCODONE HCL 5 MG TABLET PO PRN ×2 (12:04)
[2016-09-18] MEDS ORDERED: guaiFENesin/D-M SUGAR-FREE/ACLHOL-FREE 118 ML BOTTLE PO PRN (12:04)
[2016-09-18] MEDS ORDERED: ONDANSETRON 4 MG TABLET PO PRN (12:04)
[2016-09-18] MEDS ORDERED: SENNOSIDES 8.6MG TABLET (FP) PO PRN (12:04)
--- NOTE | 2016-09-18 13:24 | PN ---
Teaching Attending Note Name of Resident: Yady Avilez ATTENDING PHYSICIAN STATEMENT I saw and evaluated the patient. I reviewed the resident's note and discussed the case with the resident. I agree with the resident's findings and plan as documented. SUBJECTIVE: Pt seen and examined in the ICU. s/p Left VATS/pleur-x placement found to have trapped lung. Pain controlled. Denies shortness of breath. +nonproductive cough. No fevers or chills. OBJECTIVE: Last Vital Signs Temp Pulse Resp BP Pulse Ox 97.9 F 92 H 18 120/72 96 09/18/16 10:24 09/18/16 12:00 09/18/16 12:00 09/18/16 12:00 09/18/16 10:42 Intake & Output 09/15/16 09/16/16 09/17/16 09/18/16 23:59 23:59 23:59 23:59 Intake Total 520 443 633 4100 Output Total 2160 510 Balance 520 550 -1560 890 Weight 374 lb 8 oz 375 lb 1 oz 375 lb 11.2 oz 376 lb 12.32 oz Gen: NAD at rest Heart: RRR Lung: decreased breath sounds at the bases Abd: soft, obese, nontender Ext: + edema Chest tube: no air leak, serosanguinous drainage CBC, BMP 09/18/16 05:38 09/18/16 05:38 Active Medications Aclidinium [place] (Tudorza -) 1 puff IH BID VIRGILIO Albuterol Sulfate (Ventolin 0.083% Nebulizer Soln -) 1 amp NEB Q4H PRN PRN Reason: SHORT OF BREATH/WHEEZING Atorvastatin Calcium (Lipitor -) 20 mg PO HS VIRGILIO Diltiazem HCl (Cardizem Cd -) 300 mg PO DAILY VIRGILIO Ferrous Sulfate (Feosol -) 325 mg PO DAILY VIRGILIO Guaifenesin (Diabetic Tussin Dm -) 5 ml PO Q6H PRN PRN Reason: COUGH Insulin Aspart (Novolog Vial Sliding Scale -) 1 vial SQ ACHS VIRGILIO PRN Reason: Protocol Levothyroxine Sodium (Synthroid -) 75 mcg PO DAILY@0700 VIRGILIO Loratadine (Claritin -) 10 mg PO DAILY VIRGILIO Montelukast Sodium (Singulair -) 10 mg PO HS VIRGILIO Fvctt-5-Hjcj Ethyl Esters (Lovaza -) 1 gm PO TID [facility] Last Admin: 09/18/16 12:58 Dose: 1 gm Ondansetron HCl (Zofran -) 8 mg PO Q4H PRN PRN Reason: NAUSEA AND/OR VOMITING Oxycodone HCl (Roxicodone -) 5 mg PO Q6H PRN PRN Reason: PAIN LEVEL 1-5 Oxycodone HCl (Roxicodone -) 10 mg PO Q6H PRN PRN Reason: PAIN LEVEL 6-10 Ranitidine HCl (Zantac -) 150 mg PO BID [facility] Senna (Senna -) 1 tab PO DAILY PRN Spironolactone (Aldactone -) 50 mg PO DAILY [facility] ASSESSMENT AND PLAN: Metastatic Adenocarcinoma - Mullerian Left Malignant Pleural Effusion s/p L VATS/pleur-x placement 09/17 Atrial Fibrillation CHF HTN DM Morbid Obesity - pain control - incentive spirometry - monitor pleural drainage - rate controlled - resume anticoagulation when ok with surgery - O2 as needed - OOB to chair - DVT prophylaxis - can monitor on floor
--- NOTE | 2016-09-18 14:36 | PN ---
Progress Note (short form) - Note Progress Note: Vascular Surgery Pt seen and examined. called to evaluate for port placement. Pt with lung CA with recent thoracentesis. INR today is 2.34. Once INR is stable can place port. As INR is trending down, pt should be ready for port placement by friday. Jamal Callejas DO
--- NOTE | 2016-09-18 15:24 | OP ---
- Note: Patient Name: Maria Luisa Estrada Procedure Date: 09/17/2016 Preoperative Diagnosis: Metastatic adenocarcinoma Postoperative Diagnosis: same Procedure: 1. Left VATS; 2. Placement of pleur-x. Indication: Diagnosis. Surgeon(s): Shaw Méndez MD [employer] Surgeon: JAMILA Correa. Anesthesia: MAC Findings: >1.5L drained, tube placed in chest, tumor nodules throughout pleura and encasing lung. Specimens Sent: pleural fluid Complications: none Drains / Tubes / Catheters: Pleur-x catheter Blood / Fluid Losses: minimal Post-Operative Condition: hemodynamically stable to PACU Indications: The patient is 61 year-old female with metastatic adenocarcinoma and a recurrent symptomatic malignant effusion. She has the following comorbidities: morbid obesity, CHF, AFIB, HTN, and DM. An informed consent was obtained from the patient explaining the risks, benefits, and alternatives of the procedure. The patient and her daughter understood. Details of Procedure: The patient was taken into the operating room and placed supine on the table. She was monitored with pulse oximetry and blood pressure monitoring. Preoperative antibiotics were given. She was placed in the right lateral decubitus. Her chest was prepared and draped in standard surgical fashion. We then picked our spot of insertion and injected with local anesthesia. We then cut down to the rib space and placed the camera in the chest after removing 1.5L. She coughed over 500cc more of fluid out as she was under MAC. Fluid was sent for culture and cytology. We then gave local and created a tunnel anteriorly. We placed the tube in the chest posteriorly. We secured it and connected to a pleurovac. Both incisions were closed and a dressing was placed. The drain was secured to the skin. She was transferred to the PACU in hemodynamically stable condition.
[2016-09-18] MEDS: ALBUTEROL SO4 0.083% IH SOL 2.5 MG/3 ML VIAL.NEB. NEB PRN (17:17)
--- NOTE | 2016-09-18 21:26 | PN ---
Progress Note (short form) - Note Progress Note: PAtient seen and examined anxious s/pLT. VATS and pleurx placement Last Vital Signs Temp Pulse Resp BP Pulse Ox 97.7 F 61 20 116/60 100 09/16/16 14:00 09/16/16 14:00 09/16/16 14:00 09/16/16 14:00 09/16/16 09:00 Morbid obesity Cor: RSR, No murmurs, No gallops Lungs:decreased at bases Abd: Soft, Normal bowel sounds, No organomegaly Ext: edema4+ venous stasis Labs/meds reviewed A/P 61 y/o patient with morbid obesity, HTN, DM, O2 dependent COPD, CHF, Afib, on coumadin, come in with worsening SoB. CT showed multiple pulmonary nodules s/o mets, pleural effusion, LT. few liver lesions. Pleural fluid cytology s/o adnoca of mullerian origin Patient had post menopausal bleeding a few months ago. TV U/S --prominent uterus/fibroids and cervical cyst CT hip/T/L spine show no mets s/p Lt. VATS and pleurx placement for port-placementjosue vega discussing about palliative chemotherapy
[2016-09-18] MEDS: ATORVASTATIN CA 20 MG TABLET (FP) PO SCH (21:43)
[2016-09-18] MEDS: MONTELUKAST NA 10 MG TABLET PO SCH (21:43)
[2016-09-19] MEDS: ALBUTEROL SO4 0.083% IH SOL 2.5 MG/3 ML VIAL.NEB. NEB PRN (02:07)
[2016-09-19] MEDS: INSULIN SLIDING SCALE (NOVOLOG) 1 VIAL SQ SCH ×4 (06:01→21:20)
[2016-09-19] MEDS: LEVOTHYROXINE NA 75 MCG TABLET (FP) PO SCH (06:02)
[2016-09-19] MEDS: OMEGA-3 ACID ETHYL ESTERS (FATTY-ACIDS) 1 GM CAPSULE (FP) PO SCH ×3 (06:03→21:11)
[2016-09-19 08:20] LABS: MCH 25.1 pg (25.7-33.7); MCHC 32.5 g/dl (32.0-36.0); MEAN CELL VOLUME 77.3 fl (80-96); MEAN PLT VOLUME 9.9 fl (7.5-11.1); PLATELET COUNT 181 K/MM3 (134-434); WHITE BLOOD COUNT 6.5 K/mm3 (4.0-10.0)
[2016-09-19 08:39] LABS: INR 1.86 (0.82-1.09); PROTHROMBIN TIME (PATIENT) 20.7 SEC (9.98-11.88)
--- NOTE | 2016-09-19 08:57 | PN ---
Physical Exam: SUBJECTIVE: Patient seen and examined by me at bedside. No overnight events noted. Patient reports her breathing is much better today and was able to sleep through the night. She still complains of a cough but has adequate control with medication and nebulizer. Otherwise, patient denies fever, chills, nausea , vomiting, abdominal pain, chest pain, palpitations, dizziness. OBJECTIVE: Vital Signs Period Temp Pulse Resp BP Sys/Dinero Pulse Ox Last 24 Hr 97.0 F-98.1 F 72-92 18-20 109-128/52-76 96-97 GENERAL: The patient is awake, alert, and fully oriented, in no acute distress. LUNGS: Decreased breath sounds throughout left lung bases and rhonchi in right upper base with no crackles or wheezes. Left chest tube draining. On 2L oxygen HEART: Irregularly irregular, normal S1 and S2 without murmur, rub or gallop. ABDOMEN: Soft, Obese, nontender, nondistended, normoactive bowel sounds. EXTREMITIES: B/L lower extremity chronic venous changes with lymphedema and scaly dry skin. Laboratory Results - last 24 hr 09/18/16 09/18/16 09/18/16 10:52 16:18 21:42 WBC RBC Hgb Hct MCV MCHC RDW Plt Count MPV INR POC Glucometer 266.43008 198 195 09/19/16 09/19/16 09/19/16 05:53 07:30 07:30 WBC 6.5 RBC 4.80 Hgb 12.1 Hct 37.1 MCV 77.3 L MCHC 32.5 RDW 17.0 H Plt Count 181 MPV 9.9 INR 1.86 H POC Glucometer 185 Active Medications Generic Name Dose Route Start Last Admin Trade Name Freq PRN Reason Stop Dose Admin Aclidinium [place] 1 puff 09/18/16 22:00 09/18/16 21:44 Tudorza - IH 1 puff BID VIRGILIO Administration Albuterol Sulfate 1 amp 09/18/16 12:04 09/19/16 02:07 Ventolin 0.083% Nebulizer Soln - NEB 1 amp Q4H PRN Administration SHORT OF BREATH/WHEEZING Atorvastatin Calcium 20 mg 09/18/16 22:00 09/18/16 21:43 Lipitor - PO 20 mg HS VIRGILIO Administration Diltiazem HCl 300 mg 09/19/16 10:00 Cardizem Cd - PO DAILY [facility] Ferrous Sulfate 325 mg 09/19/16 10:00 Feosol - PO DAILY [facility] Guaifenesin 5 ml 09/18/16 12:04 Diabetic Tussin Dm - PO Q6H PRN COUGH Insulin Aspart 1 vial 09/18/16 16:30 09/19/16 06:01 Novolog Vial Sliding Scale - SQ Not Given ACHS [facility] Protocol Levothyroxine Sodium 75 mcg 09/19/16 07:00 09/19/16 06:02 Synthroid - PO 75 mcg DAILY@0700 VIRGILIO Administration Loratadine 10 mg 09/19/16 10:00 Claritin - PO DAILY VIRGILIO Montelukast Sodium 10 mg 09/18/16 22:00 09/18/16 21:43 Singulair - PO 10 mg HS VIRGILIO Administration Olswb-4-Wtgy Ethyl Esters 1 gm 09/18/16 14:00 09/19/16 06:03 Lovaza - PO 1 gm TID VIRGILIO Administration Ondansetron HCl 8 mg 09/18/16 12:04 Zofran - PO Q4H PRN NAUSEA AND/OR VOMITING Oxycodone HCl 5 mg 09/18/16 12:04 Roxicodone - PO Q6H PRN PAIN LEVEL 1-5 Oxycodone HCl 10 mg 09/18/16 12:04 Roxicodone - PO Q6H PRN PAIN LEVEL 6-10 Ranitidine HCl 150 mg 09/18/16 22:00 09/18/16 21:43 Zantac - PO 150 mg BID VIRGILIO Administration Senna 1 tab 09/18/16 12:04 Senna - PO DAILY PRN Spironolactone 50 mg 09/19/16 10:00 Aldactone - PO DAILY [facility] Images: Chest X-ray (09/08/16): Moderate left pleural effusion with compressive atelectasis. Multiple lung nodules - lung metastasis. Chest CT w/ Contrast (09/08/16): Innumerable bilateral pulmonary nodules, moderate to large left pleural effusion, and mediastinal and hilar lymphadenopathy are highly suspicious for metastatic disease. 2.9 cm hypodense mass is seen in the left lobe of the liver. Thoracocentesis under U/S guide (09/09/16) Chest X-ray (09/09/16): Decreased Pleural Effusion. No Pneumothorax seen. CT Abdomen and pelvis (09/10/16): CT abd/pelvis shows multiple metastatic pulmonary nodules, moderate left pleural effusion, hypodense left hepatic lobe mass, possible hypodense right hepatic lobe mass, diverticulosis ASSESSMENT/PLAN: Patient is a 61 year old female with PMHx of HTN, A.fib on Coumadin, DMII, CHF, COPD, GERD and hypothyroidism who presented for dyspnea and was found to have a large left pleural effusion with multiple nodules on chest x-ray. Patient admitted for further monitoring and management. Dyspnea Secondary to Malignant Pleural Effusions -S/P thoracentesis 09/09/16 and cytology was positive for malignant cells. Involvement by Adenocarcinoma, most consistent with Mullerian origin -S/P Left VATS/L pleurex 09/17/16 with 2L of serosanguinous fluid removed. 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 Would like first chemo session inpatient -Vascular consult appreciated Anticholinergic Syndrome- Resolved -Will continue to monitor Asthma/COPD -No history of smoking -Continue with Albuterol PRN -Tudorza/Spiriva discontinued due to Anticholinergic syndrome -Pulmonology consult appreciated Hypomagnesemia-resolved -Will continue to monitor Atrial Fibrillation -Lovenox 150mg BID -Continue Diltiazem Cd 300mg daily Systolic CHF- Chronic -No acute exacerbation at the time -Aldactone 50mg daily resumed -Daily weight -Hold lasix for hypotension -ECHO done and no global hypokinesis DMII -Controlled -BGM ACHS -Novolog sliding scale HTN -Borderline Hypotensive -Hold Losartan 50mg daily -Hold Lasix -Continue to monitor BP HLD -Continue Lipitor 20mg Hypothyroidism -Continue Levothyroxine 75mcg daily GERD -Continue Ranitidine 150mg BID Morbid Obesity -Bariatric referral as outpatient F/E/N -On no fluids -Electrolytes wnl -Diabetic diet Prophylaxis -Lovenox 150mg BID for DVT and treatment of A.fib Disposition -S/P VATS/ Left pleurex day #2. Chemo port catheter likely tomorrow by vascular Visit type - Emergency Visit Emergency Visit: Yes ED Registration Date: 09/08/16 Care time: The patient presented to the Emergency Department on the above date and was hospitalized for further evaluation of their emergent condition. - New Patient This patient is new to me today: No - Critical Care Critical Care patient: No
[2016-09-19 09:16] LABS: CALCIUM 9.4 mg/dL (8.5-10.1); COCKROFT - GAULT 177.1995; CREATININE 0.9 mg/dL (0.55-1.02)
--- NOTE | 2016-09-19 10:34 | PN ---
Progress Note (short form) - Note Progress Note: OOB to wheelchair. Dry cough. Still with serosanguineous drainage. Breathing feels OK today. Intake & Output 09/16/16 09/17/16 09/18/16 09/19/16 23:59 23:59 23:59 23:59 Intake Total 925 727 7350 Output Total 2160 570 200 Balance 550 -1560 1710 -200 Weight 375 lb 1 oz 375 lb 11.2 oz 376 lb 12.32 oz 377 lb Last Vital Signs Temp Pulse Resp BP Pulse Ox 97.8 F 72 20 128/60 96 09/19/16 06:06 09/19/16 06:06 09/19/16 06:06 09/19/16 06:06 09/18/16 20:21 Active Medications Aclidinium [place] (Tudorza -) 1 puff IH BID [facility] Last Admin: 09/18/16 21:44 Dose: 1 puff Albuterol Sulfate (Ventolin 0.083% Nebulizer Soln -) 1 amp NEB Q4H PRN PRN Reason: SHORT OF BREATH/WHEEZING Last Admin: 09/19/16 02:07 Dose: 1 amp Atorvastatin Calcium (Lipitor -) 20 mg PO [facility] Last Admin: 09/18/16 21:43 Dose: 20 mg Diltiazem HCl (Cardizem Cd -) 300 mg PO DAILY [facility] Ferrous Sulfate (Feosol -) 325 mg PO DAILY [facility] Guaifenesin (Diabetic Tussin Dm -) 5 ml PO Q6H PRN PRN Reason: COUGH Insulin Aspart (Novolog Vial Sliding Scale -) 1 vial SQ ACHS [facility] PRN Reason: Protocol Last Admin: 09/19/16 06:01 Dose: Not Given Levothyroxine Sodium (Synthroid -) 75 mcg PO DAILY@0700 [facility] Last Admin: 09/19/16 06:02 Dose: 75 mcg Loratadine (Claritin -) 10 mg PO DAILY [facility] Montelukast Sodium (Singulair -) 10 mg PO [facility] Last Admin: 09/18/16 21:43 Dose: 10 mg Gwbpe-8-Mgxm Ethyl Esters (Lovaza -) 1 gm PO TID [facility] Last Admin: 09/19/16 06:03 Dose: 1 gm Ondansetron HCl (Zofran -) 8 mg PO Q4H PRN PRN Reason: NAUSEA AND/OR VOMITING Oxycodone HCl (Roxicodone -) 5 mg PO Q6H PRN PRN Reason: PAIN LEVEL 1-5 Oxycodone HCl (Roxicodone -) 10 mg PO Q6H PRN PRN Reason: PAIN LEVEL 6-10 Ranitidine HCl (Zantac -) 150 mg PO BID [facility] Last Admin: 09/18/16 21:43 Dose: 150 mg Senna (Senna -) 1 tab PO DAILY PRN Spironolactone (Aldactone -) 50 mg PO DAILY [facility] Constitutional: Yes: NAD Eyes: Yes: WNL HENT: Yes: WNL Neck: Yes: Supple Cardiovascular: Yes: Pulse Irregular, S1, S2 Respiratory: decreased BS at the bases, Left Pleure-X Extremities: Yes: WNL Edema: Yes Labs: Laboratory Results - last 24 hr 09/18/16 09/18/16 09/18/16 10:52 16:18 21:42 WBC RBC Hgb Hct MCV MCHC RDW Plt Count MPV INR Sodium Potassium Chloride Carbon Dioxide Anion Gap BUN Creatinine POC Glucometer 266.63120 198 195 Random Glucose Calcium 09/19/16 09/19/16 09/19/16 05:53 07:30 07:30 WBC 6.5 RBC 4.80 Hgb 12.1 Hct 37.1 MCV 77.3 L MCHC 32.5 RDW 17.0 H Plt Count 181 MPV 9.9 INR 1.86 H Sodium Potassium Chloride Carbon Dioxide Anion Gap BUN Creatinine POC Glucometer 185 Random Glucose Calcium 09/19/16 07:30 WBC RBC Hgb Hct MCV MCHC RDW Plt Count MPV INR Sodium 134 L Potassium 4.9 Chloride 99 Carbon Dioxide 26 Anion Gap 9 BUN 13 Creatinine 0.9 POC Glucometer Random Glucose 199 H Calcium 9.4 Problem List - Problems (1) A-fib Code(s): I48.91 - UNSPECIFIED ATRIAL FIBRILLATION (2) Acute dyspnea Code(s): R06.00 - DYSPNEA, UNSPECIFIED (3) HTN (hypertension) Code(s): I10 - ESSENTIAL (PRIMARY) HYPERTENSION (4) Morbidly obese Code(s): E66.01 - MORBID (SEVERE) OBESITY DUE TO EXCESS CALORIES (5) Pleural effusion Code(s): J90 - PLEURAL EFFUSION, NOT ELSEWHERE CLASSIFIED (6) Hypothyroid Code(s): E03.9 - HYPOTHYROIDISM, UNSPECIFIED (7) Lymphedema Code(s): I89.0 - LYMPHEDEMA, NOT ELSEWHERE CLASSIFIED (8) Pulmonary nodules/lesions, multiple Code(s): R91.8 - OTHER NONSPECIFIC ABNORMAL FINDING OF LUNG FIELD Assessment/Plan IMP DYSPNEA IMPROVED LARGE LEFT PLEURAL EFFUSION MALIGNANT BILATERAL PULMONARY NODULES C/W METS PRIMARY GYNECOLOGIC CHF AFIB HTN DM H/O ASTHMA HYPOTHYROID MORBID OBESITY PLAN CONTINUE TO MONITOR PLEURAL DRAINAGE ONCOLOGY WORKUP ONGOING NASAL O2 INHALED BRONCHODILATORS DR SHETH
--- NOTE | 2016-09-19 11:15 | PN ---
Progress Note, Physician Chief Complaint: Pt OOB in chair; her daughter is visiting. Pt denies chest pain or dyspnea; she is depressed regarding the findings of her overall health. History of Present Illness: The patient is a 61 year old female, with a significant past medical history of Hypertension (on Cardizem), AFIB, diabetes, diastolic CHF, COPD, morbid obesity , GERD and hypothyroidism, who presents to the emergency department with SOB for few days. Patient saw her PMD 2 days ago with the same complaint who was supposed to prescribe her breathing treatment pumps, but patient states that the pumps were never sent by her doctor which prompted her to present to the ED. Patient denies any new leg swelling. Patient reports orthopnea and states that she sleeps with 2 pillows. She notes that she is cold but denies any fever. She reports normal bowel movements. She denies any chest pain. She denies any hx of hernia. PSH - none PMD - Dr. Brambila - Current Medication List Current Medications: Active Medications Aclidinium [place] (Tudorza -) 1 puff IH BID [facility] Last Admin: 09/18/16 21:44 Dose: 1 puff Albuterol Sulfate (Ventolin 0.083% Nebulizer Soln -) 1 amp NEB Q4H PRN PRN Reason: SHORT OF BREATH/WHEEZING Last Admin: 09/19/16 02:07 Dose: 1 amp Atorvastatin Calcium (Lipitor -) 20 mg PO [facility] Last Admin: 09/18/16 21:43 Dose: 20 mg Diltiazem HCl (Cardizem Cd -) 300 mg PO DAILY [facility] Ferrous Sulfate (Feosol -) 325 mg PO DAILY [facility] Guaifenesin (Diabetic Tussin Dm -) 5 ml PO Q6H PRN PRN Reason: COUGH Insulin Aspart (Novolog Vial Sliding Scale -) 1 vial SQ ACHS [facility] PRN Reason: Protocol Last Admin: 09/19/16 06:01 Dose: Not Given Levothyroxine Sodium (Synthroid -) 75 mcg PO DAILY@0700 [facility] Last Admin: 09/19/16 06:02 Dose: 75 mcg Loratadine (Claritin -) 10 mg PO DAILY [facility] Montelukast Sodium (Singulair -) 10 mg PO [facility] Last Admin: 09/18/16 21:43 Dose: 10 mg Xaicp-8-Scrz Ethyl Esters (Lovaza -) 1 gm PO TID [facility] Last Admin: 09/19/16 06:03 Dose: 1 gm Ondansetron HCl (Zofran -) 8 mg PO Q4H PRN PRN Reason: NAUSEA AND/OR VOMITING Oxycodone HCl (Roxicodone -) 5 mg PO Q6H PRN PRN Reason: PAIN LEVEL 1-5 Oxycodone HCl (Roxicodone -) 10 mg PO Q6H PRN PRN Reason: PAIN LEVEL 6-10 Ranitidine HCl (Zantac -) 150 mg PO BID [facility] Last Admin: 09/18/16 21:43 Dose: 150 mg Senna (Senna -) 1 tab PO DAILY PRN Spironolactone (Aldactone -) 50 mg PO DAILY [facility] - Objective Vital Signs: Vital Signs Temperature 97.8 F 09/19/16 06:06 Pulse Rate 72 09/19/16 06:06 Respiratory Rate 20 09/19/16 06:06 Blood Pressure 128/60 09/19/16 06:06 O2 Sat by Pulse Oximetry (%) 96 09/18/16 20:21 Constitutional: Yes: Anxious, Obese Eyes: Yes: WNL HENT: Yes: WNL Neck: Yes: WNL Cardiovascular: Yes: Pulse Irregular, S1 (varies in intensity), S2 Respiratory: Yes: Regular Gastrointestinal: Yes: Soft, Abdomen, Obese ...Rectal Exam: Yes: Deferred Genitourinary: No: Anuria Breast(s): Yes: WNL Musculoskeletal: Yes: Muscle Pain, Other (left thoracic chest tube) Extremities: Yes: Cool Edema: Yes Edema: LLE: Trace, RLE: Trace Peripheral Pulses WNL: Yes Integumentary: Yes: Incision Wound/Incision: Yes: Dressing Dry and Intact Neurological: Yes: Alert, Oriented, Weakness Psychiatric: Yes: Other (anxeity/depression) Labs: CBC, BMP 09/19/16 07:30 09/19/16 07:30 INR, PTT INR 1.86 (0.82-1.09) H 09/19/16 07:30 Abnormal Lab Results 09/19/16 09/19/16 09/19/16 07:30 07:30 07:30 MCV 77.3 L RDW 17.0 H INR 1.86 H Sodium 134 L Random Glucose 199 H Problem List - Problems (1) A-fib Assessment/Plan: On diltiazem. Recommend repeat ECHO (unable to assess LVEF or valve status on initial ECHO due to poor acoustic windows). Warfarin held pending pleur-x cath planned for the near future (INR now 1.86). Code(s): I48.91 - UNSPECIFIED ATRIAL FIBRILLATION (2) Acute dyspnea Code(s): R06.00 - DYSPNEA, UNSPECIFIED (3) Acute renal insufficiency Code(s): N28.9 - DISORDER OF KIDNEY AND URETER, UNSPECIFIED (4) CHF exacerbation Assessment/Plan: On diltiazem and Aldactone. f/u repeat ECHO for LVEF. s/p pleur-x cath. Code(s): I50.9 - HEART FAILURE, UNSPECIFIED (5) HTN (hypertension) Assessment/Plan: On diltiazem and Aldactone. Code(s): I10 - ESSENTIAL (PRIMARY) HYPERTENSION (6) Morbidly obese Code(s): E66.01 - MORBID (SEVERE) OBESITY DUE TO EXCESS CALORIES (7) Pleural effusion Assessment/Plan: s/p pleur-x cath and drainage; f/u lab findings. Code(s): J90 - PLEURAL EFFUSION, NOT ELSEWHERE CLASSIFIED (8) Supratherapeutic INR Code(s): R79.1 - ABNORMAL COAGULATION PROFILE (9) Cancer Assessment/Plan: adenocarcinoma with metastases. Code(s): C80.1 - MALIGNANT (PRIMARY) NEOPLASM, UNSPECIFIED
[2016-09-19] MEDS ORDERED: PT OWN MED DRAWER 7, Y5N ONE ×2 (11:40→21:07)
[2016-09-19] MEDS: RANITIDINE HCL 150 MG TABLET (FP) PO SCH ×2 (11:42→21:11)
[2016-09-19] MEDS: LORATADINE 10 MG TABLET PO SCH (11:42)
[2016-09-19] MEDS: FERROUS SO4 325 MG TABLET (FP) PO SCH (11:42)
[2016-09-19] MEDS: SPIRONOLACTONE 25 MG TABLET (FP) PO SCH (11:42)
[2016-09-19] MEDS: ACLIDINIUM BROMIDE 400 MCG/INH AERO.POWD IH SCH ×2 (11:43→21:12)
[2016-09-19] MEDS ORDERED: INSULIN (NOVOLOG) ASPART 100 UNITS/ML 10ML VIAL ONE ×2 (12:00→16:22)
--- NOTE | 2016-09-19 13:01 | PN ---
Teaching Attending Note Name of Resident: Natasha Hodge ATTENDING PHYSICIAN STATEMENT I saw and evaluated the patient. I reviewed the resident's note and discussed the case with the resident. I agree with the resident's findings and plan as documented. SUBJECTIVE:continues to have non-productive cough. breathing overall improved. denies CP, SOB,fever, chills, N/V/C/D. OBJECTIVE: Last Vital Signs Temp Pulse Resp BP Pulse Ox 97.8 F 72 20 128/60 96 09/19/16 06:06 09/19/16 06:06 09/19/16 06:06 09/19/16 06:06 09/18/16 20:21 Intake & Output 09/16/16 09/17/16 09/18/16 09/19/16 23:59 23:59 23:59 23:59 Intake Total 267 539 5259 500 Output Total 2160 570 200 Balance 550 -1560 1710 300 Weight 375 lb 1 oz 375 lb 11.2 oz 376 lb 12.32 oz 377 lb General NAD CV S1 S2 RRR no murmur/rub/gallop LUngs diminshed breath sounds B/L increased at apices. L chest tube in place, bandage c/d/i, draining serosangenous fluid. no air leak Extremities chronic venous changes, lymphedema ASSESSMENT AND PLAN: 61yo F with PMH HTN, afib on coumadin, hypothyroid, COPD and DM presented to the ER for dyspnea on exertion 1. Malignant L pleural effusion- s/p thoracentesis with cytology consistent with adenocarcinoma of Mullerian origin, s/p VATS and pleurx placement 09/17. continues to have drainage. management per CT surgery. CT surgery and pulmonary on board. 2. Adenocarcinoma of mullerian origin-with diffuse mets. s/p liver bx. plan for port placement tomorrow. NPO tonight. likely will have initiation of chemo done as inpatient as well. will d/w oncology. 3. Afib on coumadin- rate controlled. coumadin on hold due to procedure and now INR subtherapeutic. plan for procedure tomorrow. will start full dose lovenox and hold tomorrow morning dose. plan to d/c on lovenox as preferred method of anticoagulation in cancer patients. cont cardizem. 4. Hypomagnesemia- resolved 5. Morbid obesity- BMI 61. 6. Hypothyroid- cont LT4 7. DM- controlled. hold oral agents. cont iss, bgm 8. DVT [id number] lovenox today but hold in AM for pending procedure
--- NOTE | 2016-09-19 13:45 | PATH ---
Cytology Non-Gynecological Report Patient Name: NEMO GAR [facility]. Rec. #: [id number] /Age/Gender: 1955 (Age: 61) / F Account: [id number] Location: [address] [place] [address]/[facility] Taken: 09/17/2016 Received: 09/18/2016 Reported: 09/19/2016 Physicians: Luis Cat M.D. Zachariah Mcconnell M.D. Specimen(s) Received PLEURAL FLUID Clinical History Pleural effusion Final Diagnosis PLEURAL FLUID, THORACENTESIS: SATISFACTORY FOR EVALUATION. POSITIVE FOR MALIGNANT CELLS. CONSISTENT WITH INVOLVEMENT BY ADENOCARCINOMA, MORPHOLOGICALLY SIMILAR TO PREVIOUS (SEE COMMENT). Comment: Prior pleural effusion specimen ([id number]) and liver biopsy ([id number]) showed involvement by high grade adenocarcinoma most consistent with Mullerian origin. The findings in the current specimen are morphologically similar to the prior samples. Electronically Signed Johann Eldridge M.D. Gross Description Received is 50 cc of bloody fluid fresh. One cytofunnel slide and one cell block are made.
[2016-09-19] MEDS ORDERED: ENOXAPARIN NA (PORCINE) 100 MG/1 ML DISP.SYRIN SQ ONE (15:43)
[2016-09-19] MEDS: MONTELUKAST NA 10 MG TABLET PO SCH (21:11)
[2016-09-19] MEDS: ATORVASTATIN CA 20 MG TABLET (FP) PO SCH (21:11)
[2016-09-19] MEDS ORDERED: ENOXAPARIN NA (PORCINE) 120 MG/0.8 ML DISP.SYRIN SQ SCH (22:00)
[2016-09-20] MEDS: ALBUTEROL SO4 0.083% IH SOL 2.5 MG/3 ML VIAL.NEB. NEB PRN (00:57)
[2016-09-20] MEDS: LEVOTHYROXINE NA 75 MCG TABLET (FP) PO SCH (06:24)
[2016-09-20] MEDS: OMEGA-3 ACID ETHYL ESTERS (FATTY-ACIDS) 1 GM CAPSULE (FP) PO SCH ×3 (06:24→21:47)
[2016-09-20] MEDS: INSULIN SLIDING SCALE (NOVOLOG) 1 VIAL SQ SCH ×4 (06:25→21:49)
--- NOTE | 2016-09-20 07:45 | PN ---
Physical Exam: SUBJECTIVE: Patient seen and examined by me at bedside. No overnight events noted. Patient reports having an episode of diarrhea yesterday evening. However, it has resolved. Still has complains of a cough with white/yellow productive cough. She denies fever, chills, nausea, vomiting, shortness of breath, abdominal pain, chest pain. OBJECTIVE: Vital Signs Period Temp Pulse Resp BP Sys/Dinero Pulse Ox Last 24 Hr 97.5 F-98.1 F 71-90 18-20 110-140/60-71 96-96 GENERAL: The patient is awake, alert, and fully oriented, in no acute distress. LUNGS: Decreased breath sounds throughout left lung bases with no crackles or wheezes. Left chest tube draining. On 2L oxygen HEART: Irregularly irregular, normal S1 and S2 without murmur, rub or gallop. ABDOMEN: Soft, Obese, nontender, nondistended, normoactive bowel sounds. EXTREMITIES: B/L lower extremity chronic venous changes with lymphedema and scaly dry skin Laboratory Results - last 24 hr 09/19/16 09/19/16 09/19/16 07:30 07:30 07:30 WBC 6.5 RBC 4.80 Hgb 12.1 Hct 37.1 MCV 77.3 L MCHC 32.5 RDW 17.0 H Plt Count 181 MPV 9.9 INR 1.86 H Sodium 134 L Potassium 4.9 Chloride 99 Carbon Dioxide 26 Anion Gap 9 BUN 13 Creatinine 0.9 POC Glucometer Random Glucose 199 H Calcium 9.4 09/19/16 09/19/16 09/19/16 11:52 16:18 21:09 WBC RBC Hgb Hct MCV MCHC RDW Plt Count MPV INR Sodium Potassium Chloride Carbon Dioxide Anion Gap BUN Creatinine POC Glucometer 224 207 214 Random Glucose Calcium 09/20/16 05:42 WBC RBC Hgb Hct MCV MCHC RDW Plt Count MPV INR Sodium Potassium Chloride Carbon Dioxide Anion Gap BUN Creatinine POC Glucometer 163 Random Glucose Calcium Active Medications Generic Name Dose Route Start Last Admin Trade Name Freq PRN Reason Stop Dose Admin Aclidinium [place] 1 puff 09/18/16 22:00 09/19/16 21:12 Tudorza - IH 1 puff BID VIRGILIO Administration Albuterol Sulfate 1 amp 09/18/16 12:04 09/20/16 00:57 Ventolin 0.083% Nebulizer Soln - NEB 1 amp Q4H PRN Administration SHORT OF BREATH/WHEEZING Atorvastatin Calcium 20 mg 09/18/16 22:00 09/19/16 21:11 Lipitor - PO 20 mg HS VIRGILIO Administration Diltiazem HCl 300 mg 09/19/16 10:00 09/19/16 11:43 Cardizem Cd - PO 300 mg DAILY VIRGILIO Administration Ferrous Sulfate 325 mg 09/19/16 10:00 09/19/16 11:42 Feosol - PO 325 mg DAILY VIRGILIO Administration Guaifenesin 5 ml 09/18/16 12:04 Diabetic Tussin Dm - PO Q6H PRN COUGH Insulin Aspart 1 vial 09/18/16 16:30 09/20/16 06:25 Novolog Vial Sliding Scale - SQ Not Given ACHS [facility] Protocol Levothyroxine Sodium 75 mcg 09/19/16 07:00 09/20/16 06:24 Synthroid - PO 75 mcg DAILY@0700 VIRGILIO Administration Loratadine 10 mg 09/19/16 10:00 09/19/16 11:42 Claritin - PO 10 mg DAILY VIRGILIO Administration Montelukast Sodium 10 mg 09/18/16 22:00 09/19/16 21:11 Singulair - PO 10 mg HS VIRGILIO Administration Doejn-2-Irua Ethyl Esters 1 gm 09/18/16 14:00 09/20/16 06:24 Lovaza - PO 1 gm TID VIRGILIO Administration Ondansetron HCl 8 mg 09/18/16 12:04 Zofran - PO Q4H PRN NAUSEA AND/OR VOMITING Oxycodone HCl 5 mg 09/18/16 12:04 Roxicodone - PO Q6H PRN PAIN LEVEL 1-5 Oxycodone HCl 10 mg 09/18/16 12:04 Roxicodone - PO Q6H PRN PAIN LEVEL 6-10 Ranitidine HCl 150 mg 09/18/16 22:00 09/19/16 21:11 Zantac - PO 150 mg BID VIRGILIO Administration Senna 1 tab 09/18/16 12:04 Senna - PO DAILY PRN Spironolactone 50 mg 09/19/16 10:00 09/19/16 11:42 Aldactone - PO 50 mg DAILY VIRGILIO Administration Images: Chest X-ray (09/08/16): Moderate left pleural effusion with compressive atelectasis. Multiple lung nodules - lung metastasis. Chest CT w/ Contrast (09/08/16): Innumerable bilateral pulmonary nodules, moderate to large left pleural effusion, and mediastinal and hilar lymphadenopathy are highly suspicious for metastatic disease. 2.9 cm hypodense mass is seen in the left lobe of the liver. Thoracocentesis under U/S guide (09/09/16) Chest X-ray (09/09/16): Decreased Pleural Effusion. No Pneumothorax seen. CT Abdomen and pelvis (09/10/16): CT abd/pelvis shows multiple metastatic pulmonary nodules, moderate left pleural effusion, hypodense left hepatic lobe mass, possible hypodense right hepatic lobe mass, diverticulosis CHEST X-RAY (09/20/16): Left lower lobe consolidation and probable left pleural effusion. ASSESSMENT/PLAN: Patient is a 61 year old female with PMHx of HTN, A.fib on Coumadin, DMII, CHF, COPD, GERD and hypothyroidism who presented for dyspnea and was found to have a large left pleural effusion with multiple nodules on chest x-ray. Patient admitted for further monitoring and management. Dyspnea Secondary to Malignant Pleural Effusions -S/P thoracentesis 09/09/16 and cytology was positive for malignant cells. Involvement by Adenocarcinoma, most consistent with Mullerian origin -S/P Left VATS/L pleurex 09/17/16 with 2L of serosanguinous fluid removed. Drained 450mls in last 24 hours -Continue O2 PRN -Albuterol PRN -Chest X-ray this morning shows possible left pleural effusion with Left lung consolidation. Patient has no fever, no leukocytosis, and cultures negative. 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 -Vascular consult appreciated Anticholinergic Syndrome- Resolved -Will continue to monitor Asthma/COPD -No history of smoking -Continue with Albuterol PRN -Pulmonology consult appreciated Hypomagnesemia-resolved -Will continue to monitor Atrial Fibrillation -Rate controlled -Will resume home medication Coumadin 5mg after procedure -Continue Diltiazem Cd 300mg daily Systolic CHF- Chronic -No acute exacerbation at the time -Aldactone 50mg daily resumed -Daily weight -Hold lasix for hypotension -ECHO done and no global hypokinesis DMII -Controlled -BGM ACHS -Novolog sliding scale HTN -Borderline Hypotensive -Hold Losartan 50mg daily -Hold Lasix -Continue to monitor BP HLD -Continue Lipitor 20mg Hypothyroidism -Continue Levothyroxine 75mcg daily GERD -Continue Ranitidine 150mg BID Morbid Obesity -Bariatric referral as outpatient F/E/N -On no fluids -Electrolytes wnl -NPO for procedure today. Will resume diabetic diet after procedure Prophylaxis -Coumadin 5mg and bridge with Heparin drip until therapeutic INR for DVT after procedure Disposition -S/P VATS/ Left pleurex day #3. Chemo portacatheter to be placed by vascular surgeon today. First chemo session anticipated to start tomorrow. Visit type - Emergency Visit Emergency Visit: Yes ED Registration Date: 09/08/16 Care time: The patient presented to the Emergency Department on the above date and was hospitalized for further evaluation of their emergent condition. - New Patient This patient is new to me today: No - Critical Care Critical Care patient: No
[2016-09-20 07:48] LABS: INR 1.71 (0.82-1.09)
[2016-09-20] MEDS ORDERED: MIDAZOLAM HCL 2 MG/2 ML SINGLE DOSE VIAL ONE ×2 (08:55→10:34)
[2016-09-20] MEDS ORDERED: KETAMINE HCL 200 MG/20 ML VIAL ONE (08:55)
[2016-09-20] MEDS ORDERED: SUCCINYLCHOLINE CHLORIDE 200 MG/10 ML VIAL ONE (08:58)
[2016-09-20] MEDS ORDERED: LIDOCAINE HCL 1%, 10 MG/ML (20ML VIAL) ONE (09:03)
[2016-09-20] MEDS ORDERED: ceFAZolin SODIUM 1 GM VIAL IVPB ONE (10:20)
[2016-09-20] MEDS ORDERED: LIDOCAINE HCL 1%, 10 MG/ML (50 mL VIAL) IJ ONE ×2 (10:22)
[2016-09-20] MEDS ORDERED: ONDANSETRON 4 MG/2 ML VIAL IVPUSH PRN ×2 (11:31→11:41)
[2016-09-20] MEDS ORDERED: oxyCODONE HCL 5 MG TABLET PO PRN ×2 (11:41)
[2016-09-20] MEDS ORDERED: ONDANSETRON 4 MG TABLET PO PRN (11:41)
[2016-09-20] MEDS ORDERED: ALBUTEROL SO4 0.083% IH SOL 2.5 MG/3 ML VIAL.NEB. NEB PRN (11:41)
--- NOTE | 2016-09-20 11:43 | OP ---
Operative Note - Note: Operative Date: 09/20/16 Pre-Operative Diagnosis: Ovarian CA with lung mets Operation: Insertion of portacath Post-Operative Diagnosis: Same as Pre-op Surgeon: Jamal Callejas Anesthesia: Fractional Estimated Blood Loss (mls): 75 Operative Report Dictated: Yes
--- NOTE | 2016-09-20 12:47 | PN ---
Teaching Attending Note Name of Resident: Natasha Hodge ATTENDING PHYSICIAN STATEMENT I saw and evaluated the patient. I reviewed the resident's note and discussed the case with the resident. I agree with the resident's findings and plan as documented. SUBJECTIVE:continues to have cough. intermittently productive of yellow sputum. no fever of chills. denies CP, SOB, N/V/C/D OBJECTIVE: Last Vital Signs Temp Pulse Resp BP Pulse Ox 97.9 F 80 18 132/72 99 09/20/16 11:18 09/20/16 12:30 09/20/16 12:30 09/20/16 12:30 09/20/16 12:30 Intake & Output 09/17/16 09/18/16 09/19/16 09/20/16 23:59 23:59 23:59 23:59 Intake Total 600 2280 1500 500 Output Total 2160 570 350 375 Balance -1560 1710 1150 125 Weight 375 lb 11.2 oz 376 lb 12.32 oz 377 lb 376 lb 4 oz General NAD CV S1 S2 RRR no murmur/rub/gallop LUngs diminshed breath sounds B/L increased at apices. L chest tube in place, bandage c/d/i, draining serosangenous fluid. no air leak Extremities chronic venous changes, lymphedema ASSESSMENT AND PLAN: 61yo F with PMH HTN, afib on coumadin, hypothyroid, COPD and DM presented to the ER for dyspnea on exertion 1. Malignant L pleural effusion- s/p thoracentesis with cytology consistent with adenocarcinoma of Mullerian origin, s/p VATS and pleurx placement 09/17. cough is now productive. low concern for infection at this time as afebrile and no leukcotyosis. Cx were sent from procedure will f/u. management per CT surgery. CT surgery and pulmonary on board. 2. Adenocarcinoma of mullerian origin-with diffuse mets. s/p liver bx. NPO for port placement today. initiation of chemo this weekend per oncology. 3. Afib on coumadin- rate controlled. will re-start coumadin tonight. hep ggt to bridge until INR therpeutic. cont cardizem. 4. Hypomagnesemia- resolved 5. Morbid obesity- BMI 61. 6. Hypothyroid- cont LT4 7. DM- controlled. hold oral agents. cont iss, bgm 8. DVT ppx- hep-coumadin bridge tonight after procedure
[2016-09-20] MEDS ORDERED: HEPARIN NA (PORCINE) 5,000 UNITS/ML 1ML VIAL IVPUSH PRN ×2 (13:06)
--- NOTE | 2016-09-20 14:38 | PN ---
Progress Note, Physician History of Present Illness: The patient is a 61 year old female, with a significant past medical history of Hypertension (on Cardizem), AFIB, diabetes, CHF, COPD, GERD and hypothyroidism , who presents to the emergency department on with SOB for few days. Patient saw her PMD 2 days ago with the same complaint who was supposed to prescribe her breathing treatment pumps, but patient states that the pumps were never sent by her doctor which prompted her to present to the ED. Patient denies any new leg swelling. Patient reports orthopnea and states that she sleeps with 2 pillows. She notes that she is cold but denies any fever. She reports normal bowel movements. Duringh hospital course she was diagnosed with; 1. 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 Permanent atrial fibrillation - Continue Cardizem CD for rate control - Continue Coumadin 3. Hypomagnesemia - Improved 4. Morbid obesity with BMI 62.4 5. Hypothyroidism - Continue Synthroid 6. Type 2 DM - Continue Novolog sliding scale 7. HTN - Continue Cardizem - Cozaar, Aldactone held secondary to low BP and increasing creatinine 8. Hyperlipidemia - Continue Lipitor, Lovaza 9. COPD - Continue Tudorza, Singulair, Albuterol as needed 10. Chronic systolic heart failure - Cozaar, Aldactone held secondary to low BP - Current Medication List Current Medications: Active Medications Aclidinium Closplint (Tudorza -) 1 puff IH BID VIRGILIO Albuterol Sulfate (Ventolin 0.083% Nebulizer Soln -) 1 amp NEB Q4H PRN PRN Reason: SHORT OF BREATH/WHEEZING Atorvastatin Calcium (Lipitor -) 20 mg PO HS VIRGILIO Diltiazem HCl (Cardizem Cd -) 300 mg PO DAILY VIRGILIO Fentanyl (Sublimaze Injection -) 25 mcg IVPUSH [id number] PRN PRN Reason: PAIN Stop: 09/23/16 11:32 Ferrous Sulfate (Feosol -) 325 mg PO DAILY VIRGILIO Guaifenesin (Diabetic Tussin Dm -) 5 ml PO Q6H PRN PRN Reason: COUGH Heparin Sodium (Porcine) (Heparin -) 1,000 unit IVPUSH PRN PRN PRN Reason: Heparin Heparin Sodium (Porcine) (Heparin -) 5,000 unit IVPUSH PRN PRN PRN Reason: Heparin Heparin Sodium (Porcine) 25, (000 unit/ Sodium Chloride) 500 mls @ 20 mls/hr IV TITR VIRGILIO; 1,000 UNIT/HR PRN Reason: Protocol Insulin Aspart (Novolog Vial Sliding Scale -) 1 vial SQ ACHS VIRGILIO PRN Reason: Protocol Levothyroxine Sodium (Synthroid -) 75 mcg PO DAILY@0700 [facility] Loratadine (Claritin -) 10 mg PO DAILY VIRGILIO Montelukast Sodium (Singulair -) 10 mg PO HS [facility] Rrngi-4-Juog Ethyl Esters (Lovaza -) 1 gm PO TID [facility] Ondansetron HCl (Zofran Injection) 4 mg IVPUSH Q6H PRN PRN Reason: NAUSEA AND/OR VOMITING Stop: 09/20/16 17:32 Ondansetron HCl (Zofran -) 8 mg PO Q4H PRN PRN Reason: NAUSEA AND/OR VOMITING Oxycodone HCl (Roxicodone -) 5 mg PO Q6H PRN PRN Reason: PAIN LEVEL 1-5 Oxycodone HCl (Roxicodone -) 10 mg PO Q6H PRN PRN Reason: PAIN LEVEL 6-10 Ranitidine HCl (Zantac -) 150 mg PO BID [facility] Senna (Senna -) 1 tab PO DAILY PRN Spironolactone (Aldactone -) 50 mg PO DAILY [facility] Warfarin Sodium (Coumadin -) 5 mg PO DAILY@1800 [facility] - Objective Vital Signs: Vital Signs Temperature 98.2 F 09/20/16 12:45 Pulse Rate 80 09/20/16 12:45 Respiratory Rate 16 09/20/16 12:45 Blood Pressure 134/76 09/20/16 12:45 O2 Sat by Pulse Oximetry (%) 99 09/20/16 12:30 Eyes: Yes: WNL, Conjunctiva Clear, EOM Intact HENT: Yes: WNL, Atraumatic, Normocephalic Neck: Yes: WNL, Supple, Trachea Midline Cardiovascular: Yes: Pulse Irregular, S1, S2 Respiratory: Yes: WNL, Regular, CTA Bilaterally Gastrointestinal: Yes: WNL, Normal Bowel Sounds Genitourinary: Yes: WNL Musculoskeletal: Yes: WNL Extremities: Yes: WNL Edema: Yes Integumentary: Yes: WNL Neurological: Yes: WNL, Alert, Oriented ...Motor Strength: WNL Psychiatric: Yes: WNL Labs: CBC, BMP 09/19/16 07:30 09/19/16 07:30 INR, PTT INR 1.71 (0.82-1.09) H 09/20/16 06:25 Problem List - Problems (1) A-fib Code(s): I48.91 - UNSPECIFIED ATRIAL FIBRILLATION (2) Acute dyspnea Code(s): R06.00 - DYSPNEA, UNSPECIFIED (3) Acute renal insufficiency Code(s): N28.9 - DISORDER OF KIDNEY AND URETER, UNSPECIFIED (4) CHF exacerbation Code(s): I50.9 - HEART FAILURE, UNSPECIFIED (5) Cellulitis Code(s): L03.90 - CELLULITIS, UNSPECIFIED Qualifiers: Site of cellulitis: extremity Site of cellulitis of extremity: lower extremity Laterality: left Qualified Code(s): L03.116 - Cellulitis of left lower limb (6) HTN (hypertension) Code(s): I10 - ESSENTIAL (PRIMARY) HYPERTENSION (7) Morbidly obese Code(s): E66.01 - MORBID (SEVERE) OBESITY DUE TO EXCESS CALORIES (8) Pleural effusion Code(s): J90 - PLEURAL EFFUSION, NOT ELSEWHERE CLASSIFIED (9) Pulmonary nodules/lesions, multiple Code(s): R91.8 - OTHER NONSPECIFIC ABNORMAL FINDING OF LUNG FIELD (10) Supratherapeutic INR Code(s): R79.1 - ABNORMAL COAGULATION PROFILE (11) Hypothyroid Code(s): E03.9 - HYPOTHYROIDISM, UNSPECIFIED (12) Lymphedema Code(s): I89.0 - LYMPHEDEMA, NOT ELSEWHERE CLASSIFIED (13) Hematuria Code(s): R31.9 - HEMATURIA, UNSPECIFIED Assessment/Plan Problems (1) A-fib Assessment/Plan: On diltiazem. Recommend repeat ECHO (unable to assess LVEF or valve status on initial ECHO due to poor acoustic windows). Warfarin held pending pleur-x cath planned for the near future (INR now 1.86). Code(s): I48.91 - UNSPECIFIED ATRIAL FIBRILLATION (2) Acute dyspnea Code(s): R06.00 - DYSPNEA, UNSPECIFIED (3) Acute renal insufficiency Code(s): N28.9 - DISORDER OF KIDNEY AND URETER, UNSPECIFIED (4) CHF exacerbation Assessment/Plan: On diltiazem and Aldactone. f/u repeat ECHO for LVEF. s/p pleur-x cath. Code(s): I50.9 - HEART FAILURE, UNSPECIFIED (5) HTN (hypertension) Assessment/Plan: On diltiazem and Aldactone. Code(s): I10 - ESSENTIAL (PRIMARY) HYPERTENSION (6) Morbidly obese Code(s): E66.01 - MORBID (SEVERE) OBESITY DUE TO EXCESS CALORIES (7) Pleural effusion Assessment/Plan: s/p pleur-x cath and drainage; f/u lab findings. Code(s): J90 - PLEURAL EFFUSION, NOT ELSEWHERE CLASSIFIED (8) Supratherapeutic INR Code(s): R79.1 - ABNORMAL COAGULATION PROFILE (9) Cancer Assessment/Plan: adenocarcinoma with metastases. Code(s): C80.1 - MALIGNANT (PRIMARY) NEOPLASM, UNSPECIFIED
[2016-09-20] MEDS: WARFARIN NA 5 MG TABLET (UD) PO SCH (17:05)
[2016-09-20] MEDS ORDERED: PT OWN MED DRAWER 7, Y5N ONE (17:07)
[2016-09-20] MEDS ORDERED: WARFARIN NA 5 MG TABLET (UD) PO SCH (18:00)
[2016-09-20] MEDS: guaiFENesin/D-M SUGAR-FREE/ACLHOL-FREE 118 ML BOTTLE PO PRN (18:59)
[2016-09-20] MEDS: HEPARIN - 25,000 UNIT in SODIUM CHLORIDE 495 ML IV SCH (20:12)
[2016-09-20] MEDS: ACLIDINIUM BROMIDE 400 MCG/INH AERO.POWD IH SCH ×2 (20:59→21:49)
[2016-09-20] MEDS: FERROUS SO4 325 MG TABLET (FP) PO SCH (20:59)
[2016-09-20] MEDS: LORATADINE 10 MG TABLET PO SCH (20:59)
[2016-09-20] MEDS: SPIRONOLACTONE 25 MG TABLET (FP) PO SCH (20:59)
[2016-09-20] MEDS: RANITIDINE HCL 150 MG TABLET (FP) PO SCH ×2 (21:00→21:47)
[2016-09-20] MEDS: ATORVASTATIN CA 20 MG TABLET (FP) PO SCH (21:47)
[2016-09-20] MEDS: MONTELUKAST NA 10 MG TABLET PO SCH (21:48)
--- NOTE | 2016-09-21 00:04 | PN ---
Progress Note (short form) - Note Progress Note: Patient seen and examined s/p port-a-cath placement c/o mild diarrhea AFVSS Cor: RSR, No murmurs, No gallops Lungs: Clear to P&A Abd: Soft, Normal bowel sounds, No organomegaly Ext:No significant edema Abnormal Lab Results 09/21/16 09/21/16 09/21/16 02:00 06:00 06:00 INR 1.93 H PTT (Actin FS) 36.4 H 54.6 H D Active Medications Generic Name Dose Route Start Last Admin Trade Name Freq PRN Reason Stop Dose Admin Aclidinium [place] 1 puff 09/20/16 22:00 09/21/16 11:07 Tudorza - IH 1 puff BID VIRGILIO Administration Albuterol Sulfate 1 amp 09/20/16 11:41 Ventolin 0.083% Nebulizer Soln - NEB Q4H PRN SHORT OF BREATH/WHEEZING Atorvastatin Calcium 20 mg 09/20/16 22:00 09/20/16 21:47 Lipitor - PO 20 mg HS VIRGILIO Administration Diltiazem HCl 300 mg 09/21/16 10:00 09/21/16 11:06 Cardizem Cd - PO 300 mg DAILY VIRGILIO Administration Ferrous Sulfate 325 mg 09/21/16 10:00 09/21/16 11:07 Feosol - PO 325 mg DAILY VIRGILIO Administration Guaifenesin 5 ml 09/20/16 11:41 09/21/16 11:10 Diabetic Tussin Dm - PO 5 ml Q6H PRN Administration COUGH Heparin Sodium (Porcine) 1,000 unit 09/20/16 13:06 Heparin - IVPUSH PRN PRN Heparin Heparin Sodium (Porcine) 5,000 unit 09/20/16 13:06 09/21/16 03:55 Heparin - IVPUSH 5,000 unit PRN PRN Administration Heparin Heparin Sodium (Porcine) 25, 500 mls @ 20 mls/hr 09/20/16 13:45 09/21/16 03:56 000 unit/ Sodium Chloride IV 23 mls/hr TITR VIRGILIO Administration Protocol 1,000 UNIT/HR Insulin Aspart 1 vial 09/20/16 16:30 09/21/16 18:39 Novolog Vial Sliding Scale - SQ Not Given ACHS VIRGILIO Protocol Levothyroxine Sodium 75 mcg 09/21/16 07:00 09/21/16 06:05 Synthroid - PO 75 mcg DAILY@0700 VIRGILIO Administration Loratadine 10 mg 09/21/16 10:00 09/21/16 11:06 Claritin - PO 10 mg DAILY VIRGILIO Administration Montelukast Sodium 10 mg 09/20/16 22:00 09/20/16 21:48 Singulair - PO 10 mg HS VIRGILIO Administration Nystatin 1 applic 09/21/16 02:45 09/21/16 11:08 Nystop Powder - TP 1 applic BID VIRGILIO Administration Tntvc-2-Sqdi Ethyl Esters 1 gm 09/20/16 14:00 09/21/16 18:39 Lovaza - PO 1 gm TID VIRGILIO Administration Ondansetron HCl 8 mg 09/20/16 11:41 Zofran - PO Q4H PRN NAUSEA AND/OR VOMITING Oxycodone HCl 5 mg 09/20/16 11:41 Roxicodone - PO Q6H PRN PAIN LEVEL 1-5 Oxycodone HCl 10 mg 09/20/16 11:41 Roxicodone - PO Q6H PRN PAIN LEVEL 6-10 Ranitidine HCl 150 mg 09/20/16 22:00 09/21/16 11:09 Zantac - PO 150 mg BID VIRGILIO Administration Senna 1 tab 09/20/16 11:41 Senna - PO DAILY PRN Spironolactone 50 mg 09/21/16 10:00 09/21/16 11:06 Aldactone - PO 50 mg DAILY VIRGILIO Administration Warfarin Sodium 5 mg 09/20/16 18:00 09/21/16 18:39 Coumadin - PO 5 mg DAILY@1800 VIRGILIO Administration A/P Metasatic mullerian cancer, pleural effusion, s/p VATS/chest tube Discussed chemotherapy carbo/taxol, weekly with patient and daughters check stool for c.diff plan for chemotherapy on friday
[2016-09-21] MEDS: NYSTATIN POWDER 100,000 UNITS/GM - 15 GM TOPICAL POWDER TP SCH ×3 (03:54→21:41)
[2016-09-21] MEDS: HEPARIN - 25,000 UNIT in SODIUM CHLORIDE 495 ML IV SCH ×2 (03:56→21:34)
[2016-09-21] MEDS: OMEGA-3 ACID ETHYL ESTERS (FATTY-ACIDS) 1 GM CAPSULE (FP) PO SCH ×3 (06:05→21:42)
[2016-09-21] MEDS: LEVOTHYROXINE NA 75 MCG TABLET (FP) PO SCH (06:05)
[2016-09-21] MEDS: INSULIN SLIDING SCALE (NOVOLOG) 1 VIAL SQ SCH ×4 (06:10→21:31)
[2016-09-21 08:18] LABS: INR 1.93 (0.82-1.09); PROTHROMBIN TIME (PATIENT) 21.5 SEC (9.98-11.88)
--- NOTE | 2016-09-21 09:09 | PN ---
Progress Note (short form) - Note Progress Note: c/o persistent cough. intermittent productive yellow sputum. denies CP, SOb, fever, chills, N/V/C. several loose stools. has only stood outside bed. has not ambulated for past week. Current Medications Generic Name Dose Route Start Last Admin Trade Name Freq PRN Reason Stop Dose Admin Aclidinium [place] 1 puff 09/20/16 22:00 09/20/16 21:49 Tudorza - IH 1 puff BID VIRGILIO Administration Albuterol Sulfate 1 amp 09/20/16 11:41 Ventolin 0.083% Nebulizer Soln - NEB Q4H PRN SHORT OF BREATH/WHEEZING Atorvastatin Calcium 20 mg 09/20/16 22:00 09/20/16 21:47 Lipitor - PO 20 mg HS VIRGILOI Administration Diltiazem HCl 300 mg 09/21/16 10:00 Cardizem Cd - PO DAILY VIRGILIO Fentanyl 25 mcg 09/20/16 11:41 Sublimaze Injection - IVPUSH 09/23/16 11:32 [id number] PRN PAIN Ferrous Sulfate 325 mg 09/21/16 10:00 Feosol - PO DAILY VIRGILIO Guaifenesin 5 ml 09/20/16 11:41 09/20/16 18:59 Diabetic Tussin Dm - PO 5 ml Q6H PRN Administration COUGH Heparin Sodium (Porcine) 1,000 unit 09/20/16 13:06 Heparin - IVPUSH PRN PRN Heparin Heparin Sodium (Porcine) 5,000 unit 09/20/16 13:06 09/21/16 03:55 Heparin - IVPUSH 5,000 unit PRN PRN Administration Heparin Heparin Sodium (Porcine) 25, 500 mls @ 20 mls/hr 09/20/16 13:45 09/21/16 03:56 000 unit/ Sodium Chloride IV 23 mls/hr TITR VIRGILIO Administration Protocol 1,000 UNIT/HR Insulin Aspart 1 vial 09/20/16 16:30 09/21/16 06:10 Novolog Vial Sliding Scale - SQ Not Given ACHS VIRGILIO Protocol Levothyroxine Sodium 75 mcg 09/21/16 07:00 09/21/16 06:05 Synthroid - PO 75 mcg DAILY@0700 VIRGILIO Administration Loratadine 10 mg 09/21/16 10:00 Claritin - PO DAILY VIRGILIO Montelukast Sodium 10 mg 09/20/16 22:00 09/20/16 21:48 Singulair - PO 10 mg HS VIRGILIO Administration Nystatin 1 applic 09/21/16 02:45 09/21/16 03:54 Nystop Powder - TP 1 applic BID VIRGILIO Administration [id number]-4-[id number] Ethyl Esters 1 gm 09/20/16 14:00 09/21/16 06:05 Lovaza - PO 1 gm TID VIRGILIO Administration Ondansetron HCl 8 mg 09/20/16 11:41 Zofran - PO Q4H PRN NAUSEA AND/OR VOMITING Oxycodone HCl 5 mg 09/20/16 11:41 Roxicodone - PO Q6H PRN PAIN LEVEL 1-5 Oxycodone HCl 10 mg 09/20/16 11:41 Roxicodone - PO Q6H PRN PAIN LEVEL 6-10 Ranitidine HCl 150 mg 09/20/16 22:00 09/20/16 21:47 Zantac - PO 150 mg BID VIRGILIO Administration Senna 1 tab 09/20/16 11:41 Senna - PO DAILY PRN Spironolactone 50 mg 09/21/16 10:00 Aldactone - PO DAILY VIRGILIO Warfarin Sodium 5 mg 09/20/16 18:00 09/20/16 17:05 Coumadin - PO 5 mg DAILY@1800 VIRGILIO Administration Last Vital Signs Temp Pulse Resp BP Pulse Ox 97.9 F 73 20 136/83 96 09/21/16 06:00 09/21/16 06:00 09/21/16 06:00 09/21/16 06:00 09/20/16 22:00 General NAD CV S1 S2 RRR no murmur/rub/gallop + L side chemoport placement bandage c/d/i LUngs diminshed breath sounds B/L increased at apices. L chest tube in place, bandage c/d/i. no air leak Extremities chronic venous changes, lymphedema Laboratory Last Values WBC 6.5 K/mm3 (4.0-10.0) 09/19/16 07:30 RBC 4.80 M/mm3 (3.60-5.2) 09/19/16 07:30 Hgb 12.1 GM/dL (10.7-15.3) 09/19/16 07:30 Hct 37.1 % (32.4-45.2) 09/19/16 07:30 MCV 77.3 fl (80-96) L 09/19/16 07:30 MCHC 32.5 g/dl (32.0-36.0) 09/19/16 07:30 RDW 17.0 % (11.6-15.6) H 09/19/16 07:30 Plt Count 181 K/MM3 (134-434) 09/19/16 07:30 MPV 9.9 fl (7.5-11.1) 09/19/16 07:30 Neutrophils % 70.0 % (42.8-82.8) 09/18/16 05:38 Lymphocytes % 14.4 % (8-40) D 09/18/16 05:38 Monocytes % 13.8 % (3.8-10.2) H 09/18/16 05:38 Eosinophils % 1.2 % (0-4.5) 09/18/16 05:38 Basophils % 0.6 % (0-2.0) 09/18/16 05:38 INR 1.93 (0.82-1.09) H 09/21/16 06:00 PTT (Actin FS) 54.6 SECONDS (26.9-34.4) H D 09/21/16 06:00 Sodium 134 mmol/L (136-145) L 09/19/16 07:30 Potassium 4.9 mmol/L (3.5-5.1) 09/19/16 07:30 Chloride 99 mmol/L (98-107) 09/19/16 07:30 Carbon Dioxide 26 mmol/L (21-32) 09/19/16 07:30 Anion Gap 9 (8-16) 09/19/16 07:30 BUN 13 mg/dL (7-18) 09/19/16 07:30 Creatinine 0.9 mg/dL (0.55-1.02) 09/19/16 07:30 Creat Clearance w eGFR 50.50 (>60) 09/17/16 06:00 POC Glucometer 164 UNITS (()) 09/21/16 06:03 Random Glucose 199 mg/dL (74-106) H 09/19/16 07:30 Calcium 9.4 mg/dL (8.5-10.1) 09/19/16 07:30 Magnesium 2.2 mg/dL (1.8-2.4) 09/13/16 06:40 Total Bilirubin 0.5 mg/dL (0.2-1.0) D 09/17/16 06:00 AST 16 U/L (15-37) D 09/17/16 06:00 ALT 17 U/L (12-78) 09/17/16 06:00 Alkaline Phosphatase 123 U/L (45-117) H 09/17/16 06:00 Creatine Kinase 51 IU/L (26-192) 09/08/16 19:48 Troponin I < 0.02 ng/ml (0.00-0.05) 09/08/16 19:48 B-Natriuretic Peptide 441.31 pg/ml (5-125) H 09/08/16 19:48 Total Protein 7.0 g/dl (6.4-8.2) 09/17/16 06:00 Albumin 2.8 g/dl (3.4-5.0) L 09/17/16 06:00 Carcinoembryonic Ag 3.3 ng/mL (0.0-4.7) 09/10/16 06:30 CA 19-9 Antigen 25 U/mL (0-35) 09/10/16 06:30 CA 125 Antigen 153.0 U/mL (0.0-38.1) H 09/10/16 06:30 Pleural Fluid Source Left pleural 09/09/16 13:30 Pleural Color Red 09/09/16 13:30 Pleural Appearance Bloody 09/09/16 13:30 Pleural WBC 1343 /mm3 09/09/16 13:30 Pleural RBC 034126 /mm3 09/09/16 13:30 Pleural Neutrophils 1 % 09/09/16 13:30 Pleural Lymphocytes 10 % 09/09/16 13:30 Pleural Monocytes 1 % 09/09/16 13:30 Pleural Eosinophils 1 % 09/09/16 13:30 Pleural Macrophages 58 % 09/09/16 13:30 Pleural Mesothelial 29 % 09/09/16 13:30 Pleural Chloride 104 09/09/16 13:30 Pleural Total Protein 4.950 09/09/16 13:30 Pleural Albumin 3 g/dL 09/09/16 13:30 Pleural LDH 579 09/09/16 13:30 Pleural Glucose 184.320 09/09/16 13:30 Pleural Amylase 45.364 09/09/16 13:30 Pleural Cholesterol 61 MG/DL 09/09/16 13:30 Pleural Triglycerides 57 MG.DL 09/09/16 13:30 Blood Type O NEGATIVE 09/17/16 10:05 Antibody Screen Negative 09/17/16 10:05 Microbiology 09/17/16 15:00 Gram Stain - Final Pleural Fluid Body Fluid Culture - Final NO GROWTH OF AEROBIC ORGANISMS AFTER 48 HOURS INCUBATION Anaerobic Culture - Final NO ANAEROBES WERE ISOLATED ASSESSMENT AND PLAN: 61yo F with PMH HTN, afib on coumadin, hypothyroid, COPD and DM presented to the ER for dyspnea on exertion 1. Malignant L pleural effusion- s/p thoracentesis with cytology consistent with adenocarcinoma of Mullerian origin, s/p VATS and pleurx placement 09/17. cough is now productive. low concern for infection at this time as afebrile and no leukcotyosis. Cx negative for infection. management per CT surgery. CT surgery and pulmonary on board. 2. Adenocarcinoma of mullerian origin-with diffuse mets. s/p liver bx. s/p chemoport palcement 09/20. plan for chemo on 09/23. 3. Afib on coumadin- rate controlled. on hep-coumadin bridge. monitor INR. cont cardizem. 4. Hypomagnesemia- resolved 5. Morbid obesity- BMI 61. 6. Hypothyroid- cont LT4 7. DM- controlled. hold oral agents. cont iss, bgm 8. DVT ppx- hep-coumadin bridge 9. PT eval. will likely require MAYELIN on discharge Visit type - Emergency Visit Emergency Visit: Yes ED Registration Date: 09/08/16 Care time: The patient presented to the Emergency Department on the above date and was hospitalized for further evaluation of their emergent condition. - New Patient This patient is new to me today: No - Critical Care Critical Care patient: No - Discharge Referral Referred to [facility] Med P.C.: No
--- NOTE | 2016-09-21 09:59 | PN ---
Progress Note (short form) - Note Progress Note: S/P Portacath placement under MAC uneventful.Patient stable.No any anesthesia related problem.Patient dc from the anesthesia care.
[2016-09-21] MEDS: SPIRONOLACTONE 25 MG TABLET (FP) PO SCH (11:06)
[2016-09-21] MEDS: LORATADINE 10 MG TABLET PO SCH (11:06)
[2016-09-21] MEDS: ACLIDINIUM BROMIDE 400 MCG/INH AERO.POWD IH SCH ×2 (11:07→21:42)
[2016-09-21] MEDS: FERROUS SO4 325 MG TABLET (FP) PO SCH (11:07)
[2016-09-21] MEDS: RANITIDINE HCL 150 MG TABLET (FP) PO SCH ×2 (11:09→21:32)
[2016-09-21] MEDS: guaiFENesin/D-M SUGAR-FREE/ACLHOL-FREE 118 ML BOTTLE PO PRN ×2 (11:10→22:45)
--- NOTE | 2016-09-21 13:03 | PN ---
Progress Note (short form) - Note Progress Note: PULMONARY DRY CONSTANT COUGH VSS/AFEBRILE/MORBID OBESITY ANICTERIC/PORT IN PLACE DIMINISHE B/L BREATH SOUNDS/LEFT CHEST TUBE S1S2 OBESE LYMPHEDEMA LOWER EXT LABS/MEDS/NOTES/IMAGING/REVIEWED A/P metastatic adenocarcinoma of mullerian origin Left malignant effusion/drainage via tube Atrial Fibrillation on chronic a/c CHF HTN DM Morbid Obesity - monitor ct output - rate control - O2 as needed - DVT prophylaxis - pain control - chemotx planned R NATE CHOW
--- NOTE | 2016-09-21 13:54 | PN ---
Progress Note (short form) - Note Progress Note: Progress Note: Patient seen and examined s/pLT. VATS and pleurx placement Vital Signs Period Temp Pulse Resp BP Sys/Dinero Pulse Ox Last 24 Hr 97.8 F-99.5 F 73-94 16-20 105-136/60-83 96-98 Morbid obesity Cor: RSR, No murmurs, No gallops Lungs:decreased at bases Abd: Soft, Normal bowel sounds, No organomegaly Ext: edema4+ venous stasis Labs/meds reviewed A/P 61 y/o patient with morbid obesity, HTN, DM, O2 dependent COPD, CHF, Afib, on coumadin, come in with worsening SoB. CT showed multiple pulmonary nodules s/o mets, pleural effusion, LT. few liver lesions. Pleural fluid cytology s/o adnoca of mullerian origin Patient had post menopausal bleeding a few months ago. TV U/S --prominent uterus/fibroids and cervical cyst CBC, BMP 09/19/16 07:30 09/19/16 07:30 a/p : s/p Lt. VATS and pleurx placement for port-placementon silvia palliative chemo on Friday
[2016-09-21] MEDS: WARFARIN NA 5 MG TABLET (UD) PO SCH (18:39)
[2016-09-21] MEDS ORDERED: INSULIN (NOVOLOG) ASPART 100 UNITS/ML 10ML VIAL ONE (21:28)
[2016-09-21] MEDS: MONTELUKAST NA 10 MG TABLET PO SCH (21:32)
[2016-09-21] MEDS: ATORVASTATIN CA 20 MG TABLET (FP) PO SCH (21:32)
[2016-09-21] MEDS ORDERED: PT OWN MED DRAWER 7, Y5N ONE (22:43)
[2016-09-22] MEDS: OMEGA-3 ACID ETHYL ESTERS (FATTY-ACIDS) 1 GM CAPSULE (FP) PO SCH ×3 (06:20→21:15)
[2016-09-22] MEDS: LEVOTHYROXINE NA 75 MCG TABLET (FP) PO SCH (06:20)
[2016-09-22] MEDS: INSULIN SLIDING SCALE (NOVOLOG) 1 VIAL SQ SCH ×4 (06:21→21:15)
[2016-09-22 08:13] LABS: MCH 24.8 pg (25.7-33.7); MCHC 32.1 g/dl (32.0-36.0); MEAN CELL VOLUME 77.2 fl (80-96); MEAN PLT VOLUME 9.8 fl (7.5-11.1); PLATELET COUNT 173 K/MM3 (134-434); WHITE BLOOD COUNT 7.2 K/mm3 (4.0-10.0)
[2016-09-22 08:20] LABS: INR 2.37 (0.82-1.09); PROTHROMBIN TIME (PATIENT) 26.5 SEC (9.98-11.88)
--- NOTE | 2016-09-22 09:54 | PN ---
Progress Note (short form) - Note Progress Note: c/o persistent cough. pain improved at insertion site. denies CP, SOb, fever, chills, N/V/C. several loose stools. Current Medications Generic Name Dose Route Start Last Admin Trade Name Freq PRN Reason Stop Dose Admin Aclidinium [place] 1 puff 09/20/16 22:00 09/21/16 21:42 Tudorza - IH 1 puff BID VIRGILIO Administration Albuterol Sulfate 1 amp 09/20/16 11:41 Ventolin 0.083% Nebulizer Soln - NEB Q4H PRN SHORT OF BREATH/WHEEZING Atorvastatin Calcium 20 mg 09/20/16 22:00 09/21/16 21:32 Lipitor - PO 20 mg HS VIRGILIO Administration Diltiazem HCl 300 mg 09/21/16 10:00 09/21/16 11:06 Cardizem Cd - PO 300 mg DAILY VIRGILIO Administration Ferrous Sulfate 325 mg 09/21/16 10:00 09/21/16 11:07 Feosol - PO 325 mg DAILY VIRGILIO Administration Guaifenesin 5 ml 09/20/16 11:41 09/21/16 22:45 Diabetic Tussin Dm - PO 5 ml Q6H PRN Administration COUGH Heparin Sodium (Porcine) 1,000 unit 09/20/16 13:06 Heparin - IVPUSH PRN PRN Heparin Heparin Sodium (Porcine) 5,000 unit 09/20/16 13:06 09/21/16 03:55 Heparin - IVPUSH 5,000 unit PRN PRN Administration Heparin Heparin Sodium (Porcine) 25, 500 mls @ 20 mls/hr 09/20/16 13:45 09/21/16 21:34 000 unit/ Sodium Chloride IV 23 mls/hr TITR VIRGILIO Administration Protocol 1,000 UNIT/HR Insulin Aspart 1 vial 09/20/16 16:30 09/22/16 06:21 Novolog Vial Sliding Scale - SQ Not Given ACHS [facility] Protocol Levothyroxine Sodium 75 mcg 09/21/16 07:00 09/22/16 06:20 Synthroid - PO 75 mcg DAILY@0700 VIRGILIO Administration Loratadine 10 mg 09/21/16 10:00 09/21/16 11:06 Claritin - PO 10 mg DAILY VIRGILIO Administration Montelukast Sodium 10 mg 09/20/16 22:00 09/21/16 21:32 Singulair - PO 10 mg HS VIRGILIO Administration Nystatin 1 applic 09/21/16 02:45 09/21/16 21:41 Nystop Powder - TP 1 applic BID VIRGILIO Administration [id number] Ethyl Esters 1 gm 09/20/16 14:00 09/22/16 06:20 Lovaza - PO 1 gm TID VIRGILIO Administration Ondansetron HCl 8 mg 09/20/16 11:41 Zofran - PO Q4H PRN NAUSEA AND/OR VOMITING Oxycodone HCl 5 mg 09/20/16 11:41 Roxicodone - PO Q6H PRN PAIN LEVEL 1-5 Oxycodone HCl 10 mg 09/20/16 11:41 Roxicodone - PO Q6H PRN PAIN LEVEL 6-10 Ranitidine HCl 150 mg 09/20/16 22:00 09/21/16 21:32 Zantac - PO 150 mg BID VIRGILIO Administration Senna 1 tab 09/20/16 11:41 Senna - PO DAILY PRN Spironolactone 50 mg 09/21/16 10:00 09/21/16 11:06 Aldactone - PO 50 mg DAILY VIRGILIO Administration Warfarin Sodium 5 mg 09/20/16 18:00 09/21/16 18:39 Coumadin - PO 5 mg DAILY@1800 VIRGILIO Administration Last Vital Signs Temp Pulse Resp BP Pulse Ox 98.3 F 64 20 110/63 98 09/22/16 06:00 09/22/16 06:00 09/22/16 06:00 09/22/16 06:00 09/21/16 21:00 General NAD CV S1 S2 RRR no murmur/rub/gallop + L side chemoport placement bandage c/d/i LUngs diminshed breath sounds B/L increased at apices. L chest tube in place, sangenous drainage in tube, bandage c/d/i. no air leak Extremities chronic venous changes, lymphedema Abnormal Lab Results 09/22/16 09/22/16 09/22/16 06:00 06:00 06:00 MCV 77.2 L RDW 17.0 H INR 2.37 H PTT (Actin FS) 42.0 H ASSESSMENT AND PLAN: 61yo F with PMH HTN, afib on coumadin, hypothyroid, COPD and DM presented to the ER for dyspnea on exertion 1. Malignant L pleural effusion- s/p thoracentesis with cytology consistent with adenocarcinoma of Mullerian origin, s/p VATS and pleurx placement 09/17. sangenous drainage in chest tube. pulmonary aware. Cx negative for infection. management per CT surgery. CT surgery and pulmonary on board. 2. Adenocarcinoma of mullerian origin-with diffuse mets. s/p liver bx. s/p chemoport palcement 09/20. plan for chemo on 09/23. 3. Afib on coumadin- rate controlled. INR therapeutic. will d/c hep ggt as pt is have sangenous discharge from chest tube. monitor INR. cont cardizem. 4. Hypomagnesemia- resolved 5. Morbid obesity- BMI 61. 6. Hypothyroid- cont LT4 7. DM- controlled. hold oral agents. cont iss, bgm 8. DVT ppx-coumadin 9. Informed by SW not a candidate for MAYELIN due to being on chemo. will need VNS and home PT on discharge. check pre and post O2 Visit type - Emergency Visit Emergency Visit: Yes ED Registration Date: 09/08/16 Care time: The patient presented to the Emergency Department on the above date and was hospitalized for further evaluation of their emergent condition. - New Patient This patient is new to me today: No - Critical Care Critical Care patient: No - Discharge Referral Referred to [facility] Med P.C.: No
[2016-09-22] MEDS ORDERED: INSULIN (NOVOLOG) ASPART 100 UNITS/ML 10ML VIAL ONE ×2 (10:11→20:45)
[2016-09-22] MEDS ORDERED: PT OWN MED DRAWER 7, Y5N ONE (10:13)
[2016-09-22] MEDS: LORATADINE 10 MG TABLET PO SCH (10:24)
[2016-09-22] MEDS: ACLIDINIUM BROMIDE 400 MCG/INH AERO.POWD IH SCH ×2 (10:24→21:16)
[2016-09-22] MEDS: RANITIDINE HCL 150 MG TABLET (FP) PO SCH ×2 (10:24→21:15)
[2016-09-22] MEDS: FERROUS SO4 325 MG TABLET (FP) PO SCH (10:24)
[2016-09-22] MEDS: SPIRONOLACTONE 25 MG TABLET (FP) PO SCH (10:24)
[2016-09-22] MEDS: NYSTATIN POWDER 100,000 UNITS/GM - 15 GM TOPICAL POWDER TP SCH ×2 (10:25→21:17)
--- NOTE | 2016-09-22 11:10 | PN ---
Progress Note (short form) - Note Progress Note: PULMONARY DRY CONSTANT COUGH BLOODY DRAINAGE FROM CHEST TUBE VSS/AFEBRILE/MORBID OBESITY ANICTERIC/LEFT PORT IN PLACE DIMINISHE B/L BREATH SOUNDS/LEFT CHEST TUBE S1S2 OBESE LYMPHEDEMA LOWER EXT LABS/MEDS/NOTES/IMAGING/REVIEWED INR 2.37 A/P metastatic adenocarcinoma of mullerian origin Left malignant effusion/drainage via tube Atrial Fibrillation on chronic a/c CHF HTN DM Morbid Obesity - will d/c iv heparin as inr is therapeutic - monitor ct output - rate control - O2 as needed - DVT prophylaxis - pain control - chemotx planned R NATE CHOW
--- NOTE | 2016-09-22 12:16 | PN ---
Progress Note (short form) - Note Progress Note: Progress Note: Patient seen and examined s/p L. VATS, pleurex, placement doing ok has a dry cough Vital Signs Vital Signs Period Temp Pulse Resp BP Sys/Dinero Pulse Ox Last 24 Hr 97.6 F-99.5 F 64-92 19-20 110-131/55-64 98 Morbid obesity Ext: edema4+ venous stasis CBC, BMP 09/22/16 06:00 09/19/16 07:30 A/P 61 y/o patient with morbid obesity, HTN, DM, O2 dependent COPD, CHF, Afib, on coumadin, come in with worsening SoB. CT showed multiple pulmonary nodules s/o mets, pleural effusion, LT. few liver lesions. Pleural fluid cytology s/o adnoca of mullerian origin Patient had post menopausal bleeding a few months ago. TV U/S --prominent uterus/fibroids and cervical cyst s/p Lt. VATS and pleurx placement palliative chemo on Friday with carbo/ taxol
--- NOTE | 2016-09-22 14:51 | PN ---
Progress Note, Physician Chief Complaint: Pt is short of breath on mild exertion; +cough. History of Present Illness: The patient is a 61 year old white female, with a significant past medical history of Hypertension (on Cardizem), AFIB, diabetes, diastolic CHF, COPD, morbid obesity, GERD and hypothyroidism, who presents to the emergency department with SOB for few days. Patient saw her PMD 2 days ago with the same complaint who was supposed to prescribe her breathing treatment pumps, but patient states that the pumps were never sent by her doctor which prompted her to present to the ED. Patient denies any new leg swelling. Patient reports orthopnea and states that she sleeps with 2 pillows. She notes that she is cold but denies any fever. She reports normal bowel movements. She denies any chest pain. She denies any hx of hernia. PSH - none PMD - Dr. Brambila - Current Medication List Current Medications: Active Medications Aclidinium [place] (Tudorza -) 1 puff IH BID VIRGILIO Last Admin: 09/22/16 10:24 Dose: 1 puff Albuterol Sulfate (Ventolin 0.083% Nebulizer Soln -) 1 amp NEB Q4H PRN PRN Reason: SHORT OF BREATH/WHEEZING Atorvastatin Calcium (Lipitor -) 20 mg PO HS VIRGILIO Last Admin: 09/21/16 21:32 Dose: 20 mg Diltiazem HCl (Cardizem Cd -) 300 mg PO DAILY VIRGILIO Last Admin: 09/22/16 10:24 Dose: 300 mg Ferrous Sulfate (Feosol -) 325 mg PO DAILY VIRGILIO Last Admin: 09/22/16 10:24 Dose: 325 mg Guaifenesin (Diabetic Tussin Dm -) 5 ml PO Q6H PRN PRN Reason: COUGH Last Admin: 09/21/16 22:45 Dose: 5 ml Heparin Sodium (Porcine) (Heparin -) 1,000 unit IVPUSH PRN PRN PRN Reason: Heparin Last Admin: 09/22/16 10:24 Dose: 1,000 unit Heparin Sodium (Porcine) (Heparin -) 5,000 unit IVPUSH PRN PRN PRN Reason: Heparin Last Admin: 09/21/16 03:55 Dose: 5,000 unit Heparin Sodium (Porcine) 25, (000 unit/ Sodium Chloride) 500 mls @ 20 mls/hr IV TITR VIRGILIO; 1,000 UNIT/HR PRN Reason: Protocol Last Titration: 09/22/16 10:25 Dose: 1,250 unit/hr Insulin Aspart (Novolog Vial Sliding Scale -) 1 vial SQ ACHS [facility] PRN Reason: Protocol Last Admin: 09/22/16 11:14 Dose: Not Given Levothyroxine Sodium (Synthroid -) 75 mcg PO DAILY@0700 [facility] Last Admin: 09/22/16 06:20 Dose: 75 mcg Loratadine (Claritin -) 10 mg PO DAILY [facility] Last Admin: 09/22/16 10:24 Dose: 10 mg Montelukast Sodium (Singulair -) 10 mg PO HS [facility] Last Admin: 09/21/16 21:32 Dose: 10 mg Nystatin (Nystop Powder -) 1 applic TP BID [facility] Last Admin: 09/22/16 10:25 Dose: 1 applic [id number] Ethyl Esters (Lovaza -) 1 gm PO TID [facility] Last Admin: 09/22/16 06:20 Dose: 1 gm Ondansetron HCl (Zofran -) 8 mg PO Q4H PRN PRN Reason: NAUSEA AND/OR VOMITING Oxycodone HCl (Roxicodone -) 5 mg PO Q6H PRN PRN Reason: PAIN LEVEL 1-5 Oxycodone HCl (Roxicodone -) 10 mg PO Q6H PRN PRN Reason: PAIN LEVEL 6-10 Ranitidine HCl (Zantac -) 150 mg PO BID [facility] Last Admin: 09/22/16 10:24 Dose: 150 mg Senna (Senna -) 1 tab PO DAILY PRN Spironolactone (Aldactone -) 50 mg PO DAILY [facility] Last Admin: 09/22/16 10:24 Dose: 50 mg Warfarin Sodium (Coumadin -) 5 mg PO DAILY@1800 [facility] Last Admin: 09/21/16 18:39 Dose: 5 mg - Objective Vital Signs: Vital Signs Temperature 97.9 F 09/22/16 13:45 Pulse Rate 85 09/22/16 13:45 Respiratory Rate 20 09/22/16 13:45 Blood Pressure 134/61 09/22/16 13:45 O2 Sat by Pulse Oximetry (%) 99 09/22/16 10:20 Constitutional: Yes: Calm, Obese Eyes: Yes: WNL HENT: Yes: WNL Neck: Yes: Supple Cardiovascular: Yes: Pulse Irregular Respiratory: Yes: Diminished (left base) Gastrointestinal: Yes: Soft, Abdomen, Obese ...Rectal Exam: Yes: Deferred Genitourinary: No: Anuria Musculoskeletal: Yes: Muscle Weakness Extremities: Yes: Cool Edema: Yes Edema: LLE: Trace, RLE: Trace Peripheral Pulses WNL: No Peripheral Pulses: Left Doralis Pedis: 1+, Right Dorsalis Pedis: 1+ Wound/Incision: Yes: Dressing Dry and Intact Neurological: Yes: Alert, Oriented, Weakness Psychiatric: Yes: Other (anxiety/depression) Labs: CBC, BMP 09/22/16 06:00 09/19/16 07:30 INR, PTT INR 2.37 (0.82-1.09) H 09/22/16 06:00 Problem List - Problems (1) A-fib Assessment/Plan: On diltiazem. Recommend repeat ECHO (unable to assess LVEF or valve status on initial ECHO due to poor acoustic windows). On IV heparin until INR 2-3 with warfarin. Code(s): I48.91 - UNSPECIFIED ATRIAL FIBRILLATION (2) Acute dyspnea Code(s): R06.00 - DYSPNEA, UNSPECIFIED (3) Acute renal insufficiency Code(s): N28.9 - DISORDER OF KIDNEY AND URETER, UNSPECIFIED (4) CHF exacerbation Assessment/Plan: On diltiazem and Aldactone. f/u repeat ECHO for LVEF. s/p pleur-x cath. Code(s): I50.9 - HEART FAILURE, UNSPECIFIED (5) HTN (hypertension) Assessment/Plan: On diltiazem and Aldactone; BP controlled. Code(s): I10 - ESSENTIAL (PRIMARY) HYPERTENSION (6) Morbidly obese Code(s): E66.01 - MORBID (SEVERE) OBESITY DUE TO EXCESS CALORIES (7) Pleural effusion Assessment/Plan: s/p pleur-x cath and drainage; f/u lab findings. Code(s): J90 - PLEURAL EFFUSION, NOT ELSEWHERE CLASSIFIED (8) Supratherapeutic INR Code(s): R79.1 - ABNORMAL COAGULATION PROFILE (9) Cancer Assessment/Plan: adenocarcinoma with metastases. Code(s): C80.1 - MALIGNANT (PRIMARY) NEOPLASM, UNSPECIFIED
--- NOTE | 2016-09-22 14:56 | PN ---
Progress Note, Physician Chief Complaint: Pt is short of breath on mild exertion; +cough; depressed over health/diagnosis of CA. History of Present Illness: The patient is a 61 year old white female, with a significant past medical history of Hypertension (on Cardizem), AFIB, diabetes, diastolic CHF, COPD, morbid obesity, GERD and hypothyroidism, who presents to the emergency department with SOB for few days. Patient saw her PMD 2 days ago with the same complaint who was supposed to prescribe her breathing treatment pumps, but patient states that the pumps were never sent by her doctor which prompted her to present to the ED. Patient denies any new leg swelling. Patient reports orthopnea and states that she sleeps with 2 pillows. She notes that she is cold but denies any fever. She reports normal bowel movements. She denies any chest pain. She denies any hx of hernia. PSH - none PMD - Dr. Brambila - Current Medication List Current Medications: Active Medications Aclidinium [place] (Tudorza -) 1 puff IH BID [facility] Last Admin: 09/22/16 10:24 Dose: 1 puff Albuterol Sulfate (Ventolin 0.083% Nebulizer Soln -) 1 amp NEB Q4H PRN PRN Reason: SHORT OF BREATH/WHEEZING Atorvastatin Calcium (Lipitor -) 20 mg PO HS [facility] Last Admin: 09/21/16 21:32 Dose: 20 mg Diltiazem HCl (Cardizem Cd -) 300 mg PO DAILY [facility] Last Admin: 09/22/16 10:24 Dose: 300 mg Ferrous Sulfate (Feosol -) 325 mg PO DAILY [facility] Last Admin: 09/22/16 10:24 Dose: 325 mg Guaifenesin (Diabetic Tussin Dm -) 5 ml PO Q6H PRN PRN Reason: COUGH Last Admin: 09/21/16 22:45 Dose: 5 ml Heparin Sodium (Porcine) (Heparin -) 1,000 unit IVPUSH PRN PRN PRN Reason: Heparin Last Admin: 09/22/16 10:24 Dose: 1,000 unit Heparin Sodium (Porcine) (Heparin -) 5,000 unit IVPUSH PRN PRN PRN Reason: Heparin Last Admin: 09/21/16 03:55 Dose: 5,000 unit Heparin Sodium (Porcine) 25, (000 unit/ Sodium Chloride) 500 mls @ 20 mls/hr IV TITR VIRGILIO; 1,000 UNIT/HR PRN Reason: Protocol Last Titration: 09/22/16 10:25 Dose: 1,250 unit/hr Insulin Aspart (Novolog Vial Sliding Scale -) 1 vial SQ ACHS [facility] PRN Reason: Protocol Last Admin: 09/22/16 11:14 Dose: Not Given Levothyroxine Sodium (Synthroid -) 75 mcg PO DAILY@0700 [facility] Last Admin: 09/22/16 06:20 Dose: 75 mcg Loratadine (Claritin -) 10 mg PO DAILY [facility] Last Admin: 09/22/16 10:24 Dose: 10 mg Montelukast Sodium (Singulair -) 10 mg PO HS [facility] Last Admin: 09/21/16 21:32 Dose: 10 mg Nystatin (Nystop Powder -) 1 applic TP BID [facility] Last Admin: 09/22/16 10:25 Dose: 1 applic [id number] Ethyl Esters (Lovaza -) 1 gm PO TID [facility] Last Admin: 09/22/16 06:20 Dose: 1 gm Ondansetron HCl (Zofran -) 8 mg PO Q4H PRN PRN Reason: NAUSEA AND/OR VOMITING Oxycodone HCl (Roxicodone -) 5 mg PO Q6H PRN PRN Reason: PAIN LEVEL 1-5 Oxycodone HCl (Roxicodone -) 10 mg PO Q6H PRN PRN Reason: PAIN LEVEL 6-10 Ranitidine HCl (Zantac -) 150 mg PO BID [facility] Last Admin: 09/22/16 10:24 Dose: 150 mg Senna (Senna -) 1 tab PO DAILY PRN Spironolactone (Aldactone -) 50 mg PO DAILY [facility] Last Admin: 09/22/16 10:24 Dose: 50 mg Warfarin Sodium (Coumadin -) 5 mg PO DAILY@1800 [facility] Last Admin: 09/21/16 18:39 Dose: 5 mg - Objective Vital Signs: Vital Signs Temperature 97.9 F 09/22/16 13:45 Pulse Rate 85 09/22/16 13:45 Respiratory Rate 20 09/22/16 13:45 Blood Pressure 134/61 09/22/16 13:45 O2 Sat by Pulse Oximetry (%) 99 09/22/16 10:20 Constitutional: Yes: Obese Eyes: Yes: WNL HENT: Yes: WNL Neck: Yes: WNL Cardiovascular: Yes: Pulse Irregular Respiratory: Yes: Regular Gastrointestinal: Yes: Soft, Abdomen, Obese ...Rectal Exam: Yes: Deferred Genitourinary: No: Anuria Musculoskeletal: Yes: Muscle Weakness, Other (left chest tube) Extremities: Yes: Cool Edema: Yes Edema: LLE: 2+, RLE: 2+ Peripheral Pulses WNL: No Peripheral Pulses: Left Doralis Pedis: 1+, Right Dorsalis Pedis: 1+ Integumentary: Yes: Venous Stasis Changes, Other (psoriatic LEs) Neurological: Yes: Alert, Oriented, Weakness Psychiatric: Yes: Alert, Oriented, Other (anxiety/depression) Labs: CBC, BMP 09/22/16 06:00 09/19/16 07:30 INR, PTT INR 2.37 (0.82-1.09) H 09/22/16 06:00 Abnormal Lab Results 09/22/16 09/22/16 09/22/16 06:00 06:00 06:00 MCV 77.2 L RDW 17.0 H INR 2.37 H PTT (Actin FS) 42.0 H Problem List - Problems (1) A-fib Assessment/Plan: On diltiazem. Recommend repeat ECHO once pt is again able to lie on left side (unable to assess LVEF or valve status on initial ECHO due to poor acoustic windows) when chest tube has been removed. INR 1.93-->2.2; will discontinue IV heparin. Continue warfarin, and f/u INR. Code(s): I48.91 - UNSPECIFIED ATRIAL FIBRILLATION (2) Acute dyspnea Code(s): R06.00 - DYSPNEA, UNSPECIFIED (3) Acute renal insufficiency Code(s): N28.9 - DISORDER OF KIDNEY AND URETER, UNSPECIFIED (4) CHF exacerbation Assessment/Plan: On diltiazem and Aldactone. f/u repeat ECHO for LVEF once chest tube has been removed and pt can lie on left side for better views. s/p pleur-x cath. Code(s): I50.9 - HEART FAILURE, UNSPECIFIED (5) HTN (hypertension) Assessment/Plan: On diltiazem and Aldactone; BP controlled. Code(s): I10 - ESSENTIAL (PRIMARY) HYPERTENSION (6) Morbidly obese Code(s): E66.01 - MORBID (SEVERE) OBESITY DUE TO EXCESS CALORIES (7) Pleural effusion Assessment/Plan: s/p pleur-x cath and drainage; f/u lab findings. Code(s): J90 - PLEURAL EFFUSION, NOT ELSEWHERE CLASSIFIED (8) Supratherapeutic INR Code(s): R79.1 - ABNORMAL COAGULATION PROFILE (9) Cancer Assessment/Plan: adenocarcinoma with metastases. Code(s): C80.1 - MALIGNANT (PRIMARY) NEOPLASM, UNSPECIFIED (10) Anxiety and depression Assessment/Plan: f/u carefully; pt is still adjusting to knowledge of having cancer. Code(s): F41.9 - ANXIETY DISORDER, UNSPECIFIED F32.9 - MAJOR DEPRESSIVE DISORDER, SINGLE EPISODE, UNSPECIFIED
[2016-09-22] MEDS: WARFARIN NA 5 MG TABLET (UD) PO SCH (17:18)
[2016-09-22] MEDS: MONTELUKAST NA 10 MG TABLET PO SCH (21:15)
[2016-09-22] MEDS: ATORVASTATIN CA 20 MG TABLET (FP) PO SCH (21:15)
[2016-09-22] MEDS: guaiFENesin/D-M SUGAR-FREE/ACLHOL-FREE 118 ML BOTTLE PO PRN (21:18)
[2016-09-23] MEDS: INSULIN SLIDING SCALE (NOVOLOG) 1 VIAL SQ SCH ×4 (06:15→21:24)
[2016-09-23] MEDS: OMEGA-3 ACID ETHYL ESTERS (FATTY-ACIDS) 1 GM CAPSULE (FP) PO SCH ×3 (06:15→21:24)
[2016-09-23] MEDS: LEVOTHYROXINE NA 75 MCG TABLET (FP) PO SCH (06:15)
[2016-09-23 07:52] LABS: MCH 25.2 pg (25.7-33.7); MCHC 32.8 g/dl (32.0-36.0); MEAN CELL VOLUME 76.7 fl (80-96); MEAN PLT VOLUME 9.5 fl (7.5-11.1); PLATELET COUNT 170 K/MM3 (134-434); RDW 16.9 % (11.6-15.6); WHITE BLOOD COUNT 6.1 K/mm3 (4.0-10.0)
[2016-09-23 08:50] LABS: INR 3.19 (0.82-1.09); PROTHROMBIN TIME (PATIENT) 35.9 SEC (9.98-11.88)
[2016-09-23] MEDS ORDERED: PT OWN MED DRAWER 7, Y5N ONE ×2 (10:08→10:28)
[2016-09-23] MEDS: guaiFENesin/D-M SUGAR-FREE/ACLHOL-FREE 118 ML BOTTLE PO PRN (10:20)
[2016-09-23] MEDS: SPIRONOLACTONE 25 MG TABLET (FP) PO SCH (10:20)
[2016-09-23] MEDS: LORATADINE 10 MG TABLET PO SCH (10:20)
[2016-09-23] MEDS: FERROUS SO4 325 MG TABLET (FP) PO SCH (10:20)
[2016-09-23] MEDS: RANITIDINE HCL 150 MG TABLET (FP) PO SCH (10:21)
[2016-09-23] MEDS: ACLIDINIUM BROMIDE 400 MCG/INH AERO.POWD IH SCH ×2 (10:21→21:25)
[2016-09-23] MEDS: NYSTATIN POWDER 100,000 UNITS/GM - 15 GM TOPICAL POWDER TP SCH ×2 (10:22→21:22)
--- NOTE | 2016-09-23 11:09 | PN ---
Progress Note (short form) - Note Progress Note: PULMONARY Denies shortness of breath. Minimal drainage from pleur-x catheter. To start palliative chemo today. Last Vital Signs Temp Pulse Resp BP Pulse Ox 98 F 88 20 106/48 100 09/23/16 09:14 09/23/16 09:14 09/23/16 09:14 09/23/16 09:14 09/22/16 20:16 Gen: NAD in chair Heart: RRR Lung: decreased breath sounds left bases Abd: soft, nontender Ext: + edema Chest tube: serosanguinous drainage, no air leak CBC, BMP 09/23/16 06:20 09/19/16 07:30 Active Medications Aclidinium [place] (Tudorza -) 1 puff IH BID [facility] Last Admin: 09/23/16 10:21 Dose: 1 puff Albuterol Sulfate (Ventolin 0.083% Nebulizer Soln -) 1 amp NEB Q4H PRN PRN Reason: SHORT OF BREATH/WHEEZING Atorvastatin Calcium (Lipitor -) 20 mg PO HS [facility] Last Admin: 09/22/16 21:15 Dose: 20 mg Diltiazem HCl (Cardizem Cd -) 300 mg PO DAILY [facility] Last Admin: 09/23/16 10:20 Dose: 300 mg Ferrous Sulfate (Feosol -) 325 mg PO DAILY [facility] Last Admin: 09/23/16 10:20 Dose: 325 mg Guaifenesin (Diabetic Tussin Dm -) 5 ml PO Q6H PRN PRN Reason: COUGH Last Admin: 09/22/16 21:18 Dose: 5 ml Heparin Sodium (Porcine) (Heparin -) 1,000 unit IVPUSH PRN PRN PRN Reason: Heparin Last Admin: 09/22/16 10:24 Dose: 1,000 unit Heparin Sodium (Porcine) (Heparin -) 5,000 unit IVPUSH PRN PRN PRN Reason: Heparin Last Admin: 09/21/16 03:55 Dose: 5,000 unit Insulin Aspart (Novolog Vial Sliding Scale -) 1 vial SQ ACHS [facility] PRN Reason: Protocol Last Admin: 09/23/16 06:15 Dose: Not Given Levothyroxine Sodium (Synthroid -) 75 mcg PO DAILY@0700 [facility] Last Admin: 09/23/16 06:15 Dose: 75 mcg Loratadine (Claritin -) 10 mg PO DAILY [facility] Last Admin: 09/23/16 10:20 Dose: 10 mg Montelukast Sodium (Singulair -) 10 mg PO HS [facility] Last Admin: 09/22/16 21:15 Dose: 10 mg Nystatin (Nystop Powder -) 1 applic TP BID [facility] Last Admin: 09/23/16 10:22 Dose: 1 applic [id number] Ethyl Esters (Lovaza -) 1 gm PO TID [facility] Last Admin: 09/23/16 06:15 Dose: 1 gm Ondansetron HCl (Zofran -) 8 mg PO Q4H PRN PRN Reason: NAUSEA AND/OR VOMITING Oxycodone HCl (Roxicodone -) 5 mg PO Q6H PRN PRN Reason: PAIN LEVEL 1-5 Oxycodone HCl (Roxicodone -) 10 mg PO Q6H PRN PRN Reason: PAIN LEVEL 6-10 Ranitidine HCl (Zantac -) 150 mg PO BID [facility] Last Admin: 09/23/16 10:21 Dose: 150 mg Senna (Senna -) 1 tab PO DAILY PRN Spironolactone (Aldactone -) 50 mg PO DAILY [facility] Last Admin: 09/23/16 10:20 Dose: 50 mg Warfarin Sodium (Coumadin -) 5 mg PO DAILY@1800 [facility] Last Admin: 09/22/16 17:18 Dose: 5 mg A/P Metastatic Adenocarcinoma of Mullerian origin Malignant Left Pleural Effusion s/p L VATS/pleur-x placement Bilateral Lung Nodules likely metastatic disease Atrial Fibrillation CHF HTN DM Morbid Obesity - can cap pleur-x catheter and drain 1-2x/week depending on symptoms - for chemo today - rate controlled - continue anticoagulation - O2 as needed - DVT prophylaxis
--- NOTE | 2016-09-23 11:50 | PN ---
Physical Exam: SUBJECTIVE: Patient seen and examined by me at bedside. No overnight events noted. Patient reports feeling nervous about her first chemotherapy session today. Still complains of a productive cough but has improved. Otherwise, patient denies fever, chills, nausea, vomiting, abdominal pain, chest pain, palpitations. OBJECTIVE: Vital Signs Period Temp Pulse Resp BP Sys/Dinero Pulse Ox Last 24 Hr 97.9 F-98 F 83-88 20-20 106-134/48-70 100 GENERAL: The patient is awake, alert, and fully oriented, in no acute distress. LUNGS: Decreased breath sounds throughout left lung bases with no crackles or wheezes. Left chest tube draining. HEART: Irregularly irregular, normal S1 and S2 without murmur, rub or gallop. ABDOMEN: Soft, Obese, nontender, nondistended, normoactive bowel sounds. EXTREMITIES: B/L lower extremity chronic venous changes with lymphedema and scaly dry skin Laboratory Results - last 24 hr 09/22/16 09/22/16 09/23/16 16:37 21:14 06:14 WBC RBC Hgb Hct MCV MCHC RDW Plt Count MPV INR PTT (Actin FS) POC Glucometer 216 189 166 09/23/16 09/23/16 09/23/16 06:20 06:20 06:20 WBC 6.1 RBC 4.70 Hgb 11.8 Hct 36.1 MCV 76.7 L MCHC 32.8 RDW 16.9 H Plt Count 170 MPV 9.5 INR 3.19 H D PTT (Actin FS) 37.8 H POC Glucometer Active Medications Generic Name Dose Route Start Last Admin Trade Name Freq PRN Reason Stop Dose Admin Aclidinium [place] 1 puff 09/20/16 22:00 09/23/16 10:21 Tudorza - IH 1 puff BID [facility] Administration Albuterol Sulfate 1 amp 09/20/16 11:41 Ventolin 0.083% Nebulizer Soln - NEB Q4H PRN SHORT OF BREATH/WHEEZING Atorvastatin Calcium 20 mg 09/20/16 22:00 09/22/16 21:15 Lipitor - PO 20 mg HS [facility]IRG[facility]IO Administration Diltiazem HCl 300 mg 09/21/16 10:00 09/23/16 10:20 Cardizem Cd - PO 300 mg DAILY [facility] Administration Ferrous Sulfate 325 mg 09/21/16 10:00 09/23/16 10:20 Feosol - PO 325 mg DAILY [facility] Administration Guaifenesin 5 ml 09/20/16 11:41 09/22/16 21:18 Diabetic Tussin Dm - PO 5 ml Q6H PRN Administration COUGH Heparin Sodium (Porcine) 1,000 unit 09/20/16 13:06 09/22/16 10:24 Heparin - IVPUSH 1,000 unit PRN PRN Administration Heparin Heparin Sodium (Porcine) 5,000 unit 09/20/16 13:06 09/21/16 03:55 Heparin - IVPUSH 5,000 unit PRN PRN Administration Heparin Insulin Aspart 1 vial 09/20/16 16:30 09/23/16 06:15 Novolog Vial Sliding Scale - SQ Not Given ACHS [facility] Protocol Levothyroxine Sodium 75 mcg 09/21/16 07:00 09/23/16 06:15 Synthroid - PO 75 mcg DAILY@0700 [facility] Administration Loratadine 10 mg 09/21/16 10:00 09/23/16 10:20 Claritin - PO 10 mg DAILY [facility] Administration Montelukast Sodium 10 mg 09/20/16 22:00 09/22/16 21:15 Singulair - PO 10 mg HS [facility] Administration Nystatin 1 applic 09/21/16 02:45 09/23/16 10:22 Nystop Powder - TP 1 applic BID [facility] Administration [id number]-3-[id number] Ethyl Esters 1 gm 09/20/16 14:00 09/23/16 06:15 Lovaza - PO 1 gm TID [facility] Administration Ondansetron HCl 8 mg 09/20/16 11:41 Zofran - PO Q4H PRN NAUSEA AND/OR VOMITING Ranitidine HCl 150 mg 09/20/16 22:00 09/23/16 10:21 Zantac - PO 150 mg BID [facility] Administration Senna 1 tab 09/20/16 11:41 Senna - PO DAILY PRN Spironolactone 50 mg 09/21/16 10:00 09/23/16 10:20 Aldactone - PO 50 mg DAILY [facility] Administration Warfarin Sodium 5 mg 09/20/16 18:00 09/22/16 17:18 Coumadin - PO 5 mg DAILY@1800 [facility] Administration Images: Chest X-ray (09/08/16): Moderate left pleural effusion with compressive atelectasis. Multiple lung nodules - lung metastasis. Chest CT w/ Contrast (09/08/16): Innumerable bilateral pulmonary nodules, moderate to large left pleural effusion, and mediastinal and hilar lymphadenopathy are highly suspicious for metastatic disease. 2.9 cm hypodense mass is seen in the left lobe of the liver. Thoracocentesis under U/S guide (09/09/16) Chest X-ray (09/09/16): Decreased Pleural Effusion. No Pneumothorax seen. CT Abdomen and pelvis (09/10/16): CT abd/pelvis shows multiple metastatic pulmonary nodules, moderate left pleural effusion, hypodense left hepatic lobe mass, possible hypodense right hepatic lobe mass, diverticulosis CHEST X-RAY (09/20/16): Left lower lobe consolidation and probable left pleural effusion. ASSESSMENT/PLAN: Patient is a 61 year old female with PMHx of HTN, A.fib on Coumadin, DMII, CHF, COPD, GERD and hypothyroidism who presented for dyspnea and was found to have a large left pleural effusion with multiple nodules on chest x-ray. Patient admitted for further monitoring and management. Dyspnea Secondary to Malignant Pleural Effusions -S/P thoracentesis 09/09/16 and cytology was positive for malignant cells. Involvement by Adenocarcinoma, most consistent with Mullerian origin -S/P Left VATS/L pleurex 09/17/16 with 2L of serosanguinous fluid removed. 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 -Vascular consult appreciated Anticholinergic Syndrome- Resolved -Will continue to monitor Asthma/COPD -No history of smoking -Continue with Albuterol PRN -Pulmonology consult appreciated Hypomagnesemia-resolved -Will continue to monitor Atrial Fibrillation -Rate controlled -Changed Coumadin to 4mg daily due to supratherapeutic INR -Continue Diltiazem Cd 300mg daily Systolic CHF- Chronic -No acute exacerbation at the time -Aldactone 50mg daily resumed -Daily weight -Hold lasix for hypotension DMII -Controlled -BGM ACHS -Novolog sliding scale HTN -Borderline Hypotensive -Hold Losartan 50mg daily -Hold Lasix -Continue to monitor BP HLD -Continue Lipitor 20mg Hypothyroidism -Continue Levothyroxine 75mcg daily GERD -Continue Ranitidine 150mg BID Morbid Obesity -Bariatric referral as outpatient F/E/N -On no fluids -Electrolytes wnl -Diabetic diet Prophylaxis -Coumadin 4mg for DVT Disposition -First Chemo session today. 02 Pre and post exercise to be done today. Visit type - Emergency Visit Emergency Visit: Yes ED Registration Date: 09/08/16 Care time: The patient presented to the Emergency Department on the above date and was hospitalized for further evaluation of their emergent condition. - New Patient This patient is new to me today: Yes Date on this admission: 09/23/16 - Critical Care Critical Care patient: No
[2016-09-23] MEDS ORDERED: INSULIN (NOVOLOG) ASPART 100 UNITS/ML 10ML VIAL ONE (13:15)
--- NOTE | 2016-09-23 13:40 | PN ---
Progress Note, Physician History of Present Illness: The patient is a 61 year old female, with a significant past medical history of Hypertension (on Cardizem), AFIB, diabetes, CHF, COPD, GERD and hypothyroidism , who presents to the emergency department on with SOB for few days. Patient saw her PMD 2 days ago with the same complaint who was supposed to prescribe her breathing treatment pumps, but patient states that the pumps were never sent by her doctor which prompted her to present to the ED. Patient denies any new leg swelling. Patient reports orthopnea and states that she sleeps with 2 pillows. She notes that she is cold but denies any fever. She reports normal bowel movements. Duringh hospital course she was diagnosed with; 1. 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 Permanent atrial fibrillation - Continue Cardizem CD for rate control - Continue Coumadin 3. Hypomagnesemia - Improved 4. Morbid obesity with BMI 62.4 5. Hypothyroidism - Continue Synthroid 6. Type 2 DM - Continue Novolog sliding scale 7. HTN - Continue Cardizem - Cozaar, Aldactone held secondary to low BP and increasing creatinine 8. Hyperlipidemia - Continue Lipitor, Lovaza 9. COPD - Continue Tudorza, Singulair, Albuterol as needed 10. Chronic systolic heart failure - Cozaar, Aldactone held secondary to low BP - Current Medication List Current Medications: Active Medications Aclidinium [place] (Tudorza -) 1 puff IH BID [facility] Last Admin: 09/23/16 10:21 Dose: 1 puff Albuterol Sulfate (Ventolin 0.083% Nebulizer Soln -) 1 amp NEB Q4H PRN PRN Reason: SHORT OF BREATH/WHEEZING Atorvastatin Calcium (Lipitor -) 20 mg PO HS [facility] Last Admin: 09/22/16 21:15 Dose: 20 mg Diltiazem HCl (Cardizem Cd -) 300 mg PO DAILY [facility] Last Admin: 09/23/16 10:20 Dose: 300 mg Ferrous Sulfate (Feosol -) 325 mg PO DAILY [facility] Last Admin: 09/23/16 10:20 Dose: 325 mg Guaifenesin (Diabetic Tussin Dm -) 5 ml PO Q6H PRN PRN Reason: COUGH Last Admin: 09/22/16 21:18 Dose: 5 ml Heparin Sodium (Porcine) (Heparin -) 1,000 unit IVPUSH PRN PRN PRN Reason: Heparin Last Admin: 09/22/16 10:24 Dose: 1,000 unit Heparin Sodium (Porcine) (Heparin -) 5,000 unit IVPUSH PRN PRN PRN Reason: Heparin Last Admin: 09/21/16 03:55 Dose: 5,000 unit Insulin Aspart (Novolog Vial Sliding Scale -) 1 vial SQ ACHS [facility] PRN Reason: Protocol Last Admin: 09/23/16 06:15 Dose: Not Given Levothyroxine Sodium (Synthroid -) 75 mcg PO DAILY@0700 [facility] Last Admin: 09/23/16 06:15 Dose: 75 mcg Loratadine (Claritin -) 10 mg PO DAILY [facility] Last Admin: 09/23/16 10:20 Dose: 10 mg Montelukast Sodium (Singulair -) 10 mg PO HS [facility] Last Admin: 09/22/16 21:15 Dose: 10 mg Nystatin (Nystop Powder -) 1 applic TP BID [facility] Last Admin: 09/23/16 10:22 Dose: 1 applic [id number]-9-Slpz Ethyl Esters (Lovaza -) 1 gm PO TID [facility] Last Admin: 09/23/16 06:15 Dose: 1 gm Ondansetron HCl (Zofran -) 8 mg PO Q4H PRN PRN Reason: NAUSEA AND/OR VOMITING Ranitidine HCl (Zantac -) 150 mg PO BID [facility] Last Admin: 09/23/16 10:21 Dose: 150 mg Senna (Senna -) 1 tab PO DAILY PRN Spironolactone (Aldactone -) 50 mg PO DAILY [facility] Last Admin: 09/23/16 10:20 Dose: 50 mg Warfarin Sodium (Coumadin -) 5 mg PO DAILY@1800 [facility] Last Admin: 09/22/16 17:18 Dose: 5 mg - Objective Vital Signs: Vital Signs Temperature 98 F 09/23/16 09:14 Pulse Rate 88 09/23/16 09:14 Respiratory Rate 20 09/23/16 09:14 Blood Pressure 106/48 09/23/16 09:14 O2 Sat by Pulse Oximetry (%) 98 09/23/16 09:00 Eyes: Yes: WNL, Conjunctiva Clear, EOM Intact HENT: Yes: WNL, Atraumatic, Normocephalic Neck: Yes: WNL, Supple, Trachea Midline Cardiovascular: Yes: WNL, Regular Rate and Rhythm, S1, S2 Respiratory: Yes: Diminished, Other (CT in place) Gastrointestinal: Yes: WNL, Normal Bowel Sounds Genitourinary: Yes: WNL Musculoskeletal: Yes: WNL Extremities: Yes: WNL Edema: Yes Integumentary: Yes: WNL Neurological: Yes: WNL, Alert, Oriented ...Motor Strength: WNL Psychiatric: Yes: WNL Labs: CBC, BMP 09/23/16 06:20 09/19/16 07:30 INR, PTT INR 3.19 (0.82-1.09) H D 09/23/16 06:20 Problem List - Problems (1) A-fib Code(s): I48.91 - UNSPECIFIED ATRIAL FIBRILLATION (2) Acute dyspnea Code(s): R06.00 - DYSPNEA, UNSPECIFIED (3) Acute renal insufficiency Code(s): N28.9 - DISORDER OF KIDNEY AND URETER, UNSPECIFIED (4) CHF exacerbation Code(s): I50.9 - HEART FAILURE, UNSPECIFIED (5) Cellulitis Code(s): L03.90 - CELLULITIS, UNSPECIFIED Qualifiers: Qualified Code(s): L03.116 - Cellulitis of left lower limb (6) HTN (hypertension) Code(s): I10 - ESSENTIAL (PRIMARY) HYPERTENSION (7) Morbidly obese Code(s): E66.01 - MORBID (SEVERE) OBESITY DUE TO EXCESS CALORIES (8) Pleural effusion Code(s): J90 - PLEURAL EFFUSION, NOT ELSEWHERE CLASSIFIED (9) Pulmonary nodules/lesions, multiple Code(s): R91.8 - OTHER NONSPECIFIC ABNORMAL FINDING OF LUNG FIELD (10) Supratherapeutic INR Code(s): R79.1 - ABNORMAL COAGULATION PROFILE (11) Hypothyroid Code(s): E03.9 - HYPOTHYROIDISM, UNSPECIFIED (12) Lymphedema Code(s): I89.0 - LYMPHEDEMA, NOT ELSEWHERE CLASSIFIED (13) Hematuria Code(s): R31.9 - HEMATURIA, UNSPECIFIED Assessment/Plan - Problems (1) A-fib Assessment/Plan: On diltiazem. Recommend repeat ECHO once pt is again able to lie on left side (unable to assess LVEF or valve status on initial ECHO due to poor acoustic windows) when chest tube has been removed. INR 1.93-->2.2; will discontinue IV heparin. Continue warfarin, and f/u INR. Code(s): I48.91 - UNSPECIFIED ATRIAL FIBRILLATION (2) Acute dyspnea Code(s): R06.00 - DYSPNEA, UNSPECIFIED (3) Acute renal insufficiency Code(s): N28.9 - DISORDER OF KIDNEY AND URETER, UNSPECIFIED (4) CHF exacerbation Assessment/Plan: On diltiazem and Aldactone. f/u repeat ECHO for LVEF once chest tube has been removed and pt can lie on left side for better views. s/p pleur-x cath. Code(s): I50.9 - HEART FAILURE, UNSPECIFIED (5) HTN (hypertension) Assessment/Plan: On diltiazem and Aldactone; BP controlled. Code(s): I10 - ESSENTIAL (PRIMARY) HYPERTENSION (6) Morbidly obese Code(s): E66.01 - MORBID (SEVERE) OBESITY DUE TO EXCESS CALORIES (7) Pleural effusion Assessment/Plan: s/p pleur-x cath and drainage; f/u lab findings. Code(s): J90 - PLEURAL EFFUSION, NOT ELSEWHERE CLASSIFIED (8) Supratherapeutic INR Code(s): R79.1 - ABNORMAL COAGULATION PROFILE (9) Cancer Assessment/Plan: adenocarcinoma with metastases. Code(s): C80.1 - MALIGNANT (PRIMARY) NEOPLASM, UNSPECIFIED (10) Anxiety and depression Assessment/Plan: f/u carefully; pt is still adjusting to knowledge of having cancer. Code(s): F41.9 - ANXIETY DISORDER, UNSPECIFIED F32.9 - MAJOR DEPRESSIVE DISORDER, SINGLE EPISODE, UNSPECIFIED
--- NOTE | 2016-09-23 14:30 | PN ---
Teaching Attending Note Name of Resident: Natasha Hodge ATTENDING PHYSICIAN STATEMENT I saw and evaluated the patient. I reviewed the resident's note and discussed the case with the resident. I agree with the resident's findings and plan as documented. SUBJECTIVE:currently asymptomatic. denies CP, fever, chills, N/V/C/D OBJECTIVE: Last Vital Signs Temp Pulse Resp BP Pulse Ox 98 F 88 20 106/48 98 09/23/16 09:14 09/23/16 09:14 09/23/16 09:14 09/23/16 09:14 09/23/16 09:00 General NAD CV S1 S2 RRR no murmur/rub/gallop + L side chemoport placement bandage c/d/i LUngs diminshed breath sounds B/L increased at apices. L chest tube in place, serous drainage in tube, bandage c/d/i. no air leak Extremities chronic venous changes, lymphedema ASSESSMENT AND PLAN: 61yo F with PMH HTN, afib on coumadin, hypothyroid, COPD and DM presented to the ER for dyspnea on exertion 1. Malignant L pleural effusion- s/p thoracentesis with cytology consistent with adenocarcinoma of Mullerian origin, s/p VATS and pleurx placement 09/17. CT drainage more serous today.management per CT surgery. CT surgery and pulmonary on board. 2. Adenocarcinoma of mullerian origin-with diffuse mets. s/p liver bx. s/p chemoport palcement 09/20. plan for initiation of palliative chemo today 3. Afib on coumadin- rate controlled. INR supratherapeutic. decrease couamdin to 4mg. monitor INR. cont cardizem. 4. Hypomagnesemia- resolved 5. Morbid obesity- BMI 61. 6. Hypothyroid- cont LT4 7. DM- controlled. hold oral agents. cont iss, bgm 8. DVT ppx-coumadin 9. d/c home tomorrow with VNS. will need bariatric bed and wheelchair.
[2016-09-23] MEDS ORDERED: SODIUM CHLORIDE 100 ML IVPB ONE ×3 (16:00→19:00)
[2016-09-23] MEDS ORDERED: DEXAMETHASONE INJECTION 20 MG in SODIUM CHLORIDE 50 ML IVPB ONE (16:00)
[2016-09-23] MEDS ORDERED: ACETAMINOPHEN 325 MG TABLET (FP) PO ONE (16:00)
[2016-09-23] MEDS ORDERED: RANITIDINE IVPB ONE (16:00)
[2016-09-23] MEDS ORDERED: [UNRECOGNIZED DRUG - OTHER] IVPB ONE (16:00)
[2016-09-23] MEDS ORDERED: DIPHENHYDRAMINE IVPB ONE (16:00)
[2016-09-23] MEDS ORDERED: ONDANSETRON IVPB ONE (16:00)
[2016-09-23] MEDS ORDERED: PACLITAXEL 120 MG in SODIUM CHLORIDE 250 ML IVPB ONE (16:30)
[2016-09-23] MEDS ORDERED: CARBOPLATIN IVPB ONE (17:30)
[2016-09-23] MEDS ORDERED: SODIUM CHLORIDE IVPB ONE (17:30)
[2016-09-23] MEDS ORDERED: WARFARIN NA 2 MG TABLET (UD) PO SCH (18:00)
[2016-09-23] MEDS: ATORVASTATIN CA 20 MG TABLET (FP) PO SCH (21:24)
[2016-09-23] MEDS: MONTELUKAST NA 10 MG TABLET PO SCH (21:25)
--- NOTE | 2016-09-23 22:41 | PN ---
Progress Note (short form) - Note Progress Note: Patient seen and examined s/p port-a-cath placement c/o mild diarrhea AFVSS Cor: RSR, No murmurs, No gallops Lungs: Clear to P&A Abd: Soft, Normal bowel sounds, No organomegaly Ext:No significant edema Abnormal Lab Results 09/23/16 09/23/16 09/23/16 06:20 06:20 06:20 MCV 76.7 L RDW 16.9 H Neutrophils % Monocytes % INR 3.19 H D PTT (Actin FS) 37.8 H 09/24/16 06:00 MCV 77.2 L RDW 16.8 H Neutrophils % 88.3 H D Monocytes % 1.9 L D INR PTT (Actin FS) A/P Metasatic mullerian cancer, pleural effusion, s/p VATS/chest tube Discussed chemotherapy carbo/taxol, weekly with patient and daughters Received carboplatin AUC=2 and taxol 60mg/m2 Plan for weekly chemotherapy neupogen as necessary will need f/u of chest tube
[2016-09-24] MEDS: INSULIN SLIDING SCALE (NOVOLOG) 1 VIAL SQ SCH ×5 (06:09→21:43)
[2016-09-24] MEDS: LEVOTHYROXINE NA 75 MCG TABLET (FP) PO SCH (06:09)
[2016-09-24] MEDS: OMEGA-3 ACID ETHYL ESTERS (FATTY-ACIDS) 1 GM CAPSULE (FP) PO SCH ×3 (06:09→21:33)
[2016-09-24] MEDS: PORTA CATH FLUSH 10 ML IVPUSH PRN (06:19)
[2016-09-24 07:18] LABS: BASOPHIL 0.8 % (0-2.0); MCH 25.2 pg (25.7-33.7); MCHC 32.7 g/dl (32.0-36.0); MEAN CELL VOLUME 77.2 fl (80-96); MEAN PLT VOLUME 10.2 fl (7.5-11.1); NEUTROPHILS 88.3 % (42.8-82.8); PLATELET COUNT 167 K/MM3 (134-434); RDW 16.8 % (11.6-15.6); WHITE BLOOD COUNT 4.3 K/mm3 (4.0-10.0)
[2016-09-24 07:33] LABS: PROTHROMBIN TIME (PATIENT) 55.3 SEC (9.98-11.88)
[2016-09-24 07:56] LABS: INR 4.87 (0.82-1.09)
[2016-09-24 08:47] LABS: ANION GAP 12 (8-16); CALCIUM 8.4 mg/dL (8.5-10.1); CO2 23 mmol/L (21-32); CREATININE 0.8 mg/dL (0.55-1.02); SGOT/AST 33 U/L (15-37); SGPT/ALT 16 U/L (12-78)
[2016-09-24 08:49] LABS: ALK PHOS 115 U/L (45-117); BILIRUBIN,TOTAL 0.4 mg/dL (0.2-1.0); TOT PROT 5.8 g/dl (6.4-8.2)
[2016-09-24 09:06] LABS: GLUCOSE,RANDOM 314 mg/dL (74-106)
[2016-09-24] MEDS ORDERED: PT OWN MED DRAWER 7, Y5N ONE ×2 (09:34→20:47)
[2016-09-24] MEDS: FERROUS SO4 325 MG TABLET (FP) PO SCH (10:29)
[2016-09-24] MEDS: SENNOSIDES 8.6MG TABLET (FP) PO PRN (10:31)
[2016-09-24] MEDS: NYSTATIN POWDER 100,000 UNITS/GM - 15 GM TOPICAL POWDER TP SCH ×2 (10:31→21:43)
[2016-09-24] MEDS: SPIRONOLACTONE 25 MG TABLET (FP) PO SCH (10:31)
[2016-09-24] MEDS: ACLIDINIUM BROMIDE 400 MCG/INH AERO.POWD IH SCH ×2 (10:32→21:36)
--- NOTE | 2016-09-24 11:12 | PN ---
Progress Note (short form) - Note Progress Note: PULMONARY Tolerated chemotherapy yesterday. Denies shortness of breath. Last Vital Signs Temp Pulse Resp BP Pulse Ox 97.9 F 84 20 141/72 99 09/24/16 05:40 09/24/16 05:40 09/24/16 05:40 09/24/16 05:40 09/23/16 20:39 Gen: NAD in chair Heart: RRR Lung: decreased breath sounds left bases Abd: soft, nontender Ext: + edema Chest tube: serosanguinous drainage, no air leak CBC, BMP 09/24/16 06:00 09/24/16 06:00 Active Medications Aclidinium [place] (Tudorza -) 1 puff IH BID VIRGILIO Last Admin: 09/24/16 10:32 Dose: 1 puff Albuterol Sulfate (Ventolin 0.083% Nebulizer Soln -) 1 amp NEB Q4H PRN PRN Reason: SHORT OF BREATH/WHEEZING Atorvastatin Calcium (Lipitor -) 20 mg PO HS VIRGILIO Last Admin: 09/23/16 21:24 Dose: 20 mg Diltiazem HCl (Cardizem Cd -) 300 mg PO DAILY VIRGILIO Last Admin: 09/24/16 10:31 Dose: 300 mg Ferrous Sulfate (Feosol -) 325 mg PO DAILY VIRGILIO Last Admin: 09/24/16 10:29 Dose: 325 mg Guaifenesin (Diabetic Tussin Dm -) 5 ml PO Q6H PRN PRN Reason: COUGH Last Admin: 09/23/16 10:20 Dose: 5 ml Heparin Sodium (Porcine) (Heparin -) 1,000 unit IVPUSH PRN PRN PRN Reason: Heparin Last Admin: 09/22/16 10:24 Dose: 1,000 unit Heparin Sodium (Porcine) (Heparin -) 5,000 unit IVPUSH PRN PRN PRN Reason: Heparin Last Admin: 09/21/16 03:55 Dose: 5,000 unit IV Flush (Neeta-Cath Flush) 10 ml IVPUSH PRN PRN PRN Reason: FLUSH Last Admin: 09/24/16 06:19 Dose: 10 ml Insulin Aspart (Novolog Vial Sliding Scale -) 1 vial SQ ACHS VIRGILIO PRN Reason: Protocol Last Admin: 09/24/16 06:09 Dose: 6 unit Levothyroxine Sodium (Synthroid -) 75 mcg PO DAILY@0700 [facility] Last Admin: 09/24/16 06:09 Dose: 75 mcg Montelukast Sodium (Singulair -) 10 mg PO HS [facility] Last Admin: 09/23/16 21:25 Dose: 10 mg Nystatin (Nystop Powder -) 1 applic TP BID [facility] Last Admin: 09/24/16 10:31 Dose: 1 applic Oxuxc-4-[id number] Ethyl Esters (Lovaza -) 1 gm PO TID [facility] Last Admin: 09/24/16 06:09 Dose: 1 gm Senna (Senna -) 1 tab PO DAILY PRN Last Admin: 09/24/16 10:31 Dose: 1 tab Spironolactone (Aldactone -) 50 mg PO DAILY [facility] Last Admin: 09/24/16 10:31 Dose: 50 mg Warfarin Sodium (Coumadin -) 4 mg PO DAILY@1800 [facility] Last Admin: 09/23/16 17:31 Dose: 4 mg A/P Metastatic Adenocarcinoma of Mullerian origin Malignant Left Pleural Effusion s/p L VATS/pleur-x placement Bilateral Lung Nodules likely metastatic disease Atrial Fibrillation CHF HTN DM Morbid Obesity - can cap pleur-x catheter and drain 1-2x/week depending on symptoms - rate controlled - continue anticoagulation - O2 as needed - DVT prophylaxis - d/c planning
[2016-09-24] MEDS ORDERED: INSULIN (NOVOLOG) ASPART 100 UNITS/ML 10ML VIAL ONE (12:26)
--- NOTE | 2016-09-24 15:43 | PN ---
Teaching Attending Note Name of Resident: Natasha Hodge ATTENDING PHYSICIAN STATEMENT I saw and evaluated the patient. I reviewed the resident's note and discussed the case with the resident. I agree with the resident's findings and plan as documented. SUBJECTIVE: No complaints. OBJECTIVE: Vital Signs Period Temp Pulse Resp BP Sys/Dinero Pulse Ox Last 24 Hr 97.8 F-98.2 F 64-84 20-20 117-141/62-73 98-99 HEART: Irregularly irregular LUNGS: Clear ABDOMEN: Obese, soft, non-tender, non-distended, normal BS EXTREMITIES: Lymphedema ASSESSMENT AND PLAN: This is a 61-year-old woman with a history of HTN, atrial fib, hypothyroidism, COPD, type 2 DM and morbid obesity who presented to the ER for dyspnea on exertion. 1. Metastatic Mullerian adenocarcinoma with left pleural effusion - s/p thoracentesis 09/09 - s/p liver biopsy 09/12 - s/p VATS placement of Pleur-x catheter 09/17 - s/p Portacath insertion 09/20 - Treated with Carboplatin and Taxol 09/22 2. Permanent atrial fibrillation - Continue Cardizem CD, Coumadin 3. Hypomagnesemia - Improved 4. Morbid obesity with BMI 61.4 5. Hypothyroidism - Continue Synthroid 6. Type 2 DM - Continue Novolog sliding scale 7. HTN - Continue Cardizem, Aldactone 8. Hyperlipidemia - Continue Lipitor, Lovaza 9. COPD - Continue Tudorza, Singulair, Albuterol as needed 10. Chronic systolic heart failure - Continue Aldactone - Cozaar held secondary to hypotension
--- NOTE | 2016-09-24 17:52 | PN ---
Physical Exam: SUBJECTIVE: Patient seen and examined by me at bedside. Patient is s/p chemotherapy day #1. Patient states she feels much better and her cough as improved. She does have difficulty ambulating long periods of time before feeling short of breath. Otherwise she denies fever, chills, nausea, vomiting, abdominal pain, chest pain, palpitations. OBJECTIVE: Vital Signs Period Temp Pulse Resp BP Sys/Dinero Pulse Ox Last 24 Hr 97.8 F-98.2 F 64-84 20-20 117-141/62-73 98-99 GENERAL: The patient is awake, alert, and fully oriented, in no acute distress. LUNGS: Decreased breath sounds throughout left lung bases with no crackles or wheezes. Left chest tube draining. HEART: Irregularly irregular, normal S1 and S2 without murmur, rub or gallop. Left chemoport placement bandage c/d/i ABDOMEN: Soft, Obese, nontender, nondistended, normoactive bowel sounds. EXTREMITIES: B/L lower extremity chronic venous changes with lymphedema and scaly dry skin Laboratory Results - last 24 hr 09/23/16 09/23/16 09/24/16 18:24 21:21 05:51 WBC RBC Hgb Hct MCV MCHC RDW Plt Count MPV Neutrophils % Lymphocytes % Monocytes % Eosinophils % Basophils % INR PTT (Actin FS) Sodium Potassium Chloride Carbon Dioxide Anion Gap BUN Creatinine Creat Clearance w eGFR POC Glucometer 162 271 303 Random Glucose Calcium Total Bilirubin AST ALT Alkaline Phosphatase Total Protein Albumin 09/24/16 09/24/16 09/24/16 06:00 06:00 06:00 WBC 4.3 RBC 4.58 Hgb 11.5 Hct 35.3 MCV 77.2 L MCHC 32.7 RDW 16.8 H Plt Count 167 MPV 10.2 Neutrophils % 88.3 H D Lymphocytes % 9.0 D Monocytes % 1.9 L D Eosinophils % 0.0 D Basophils % 0.8 INR 4.87 H* D PTT (Actin FS) 63.3 H D Sodium Potassium Chloride Carbon Dioxide Anion Gap BUN Creatinine Creat Clearance w eGFR POC Glucometer Random Glucose Calcium Total Bilirubin AST ALT Alkaline Phosphatase Total Protein Albumin 09/24/16 09/24/16 09/24/16 06:00 12:13 12:14 WBC RBC Hgb Hct MCV MCHC RDW Plt Count MPV Neutrophils % Lymphocytes % Monocytes % Eosinophils % Basophils % INR PTT (Actin FS) Sodium 135 L Potassium 4.8 Chloride 100 Carbon Dioxide 23 Anion Gap 12 BUN 14 Creatinine 0.8 Creat Clearance w eGFR > 60 POC Glucometer 439 388 Random Glucose 314 H* D Calcium 8.4 L Total Bilirubin 0.4 AST 33 D ALT 16 Alkaline Phosphatase 115 Total Protein 5.8 L Albumin 2.0 L D 09/24/16 16:57 WBC RBC Hgb Hct MCV MCHC RDW Plt Count MPV Neutrophils % Lymphocytes % Monocytes % Eosinophils % Basophils % INR PTT (Actin FS) Sodium Potassium Chloride Carbon Dioxide Anion Gap BUN Creatinine Creat Clearance w eGFR POC Glucometer 336 Random Glucose Calcium Total Bilirubin AST ALT Alkaline Phosphatase Total Protein Albumin Active Medications Generic Name Dose Route Start Last Admin Trade Name Freq PRN Reason Stop Dose Admin Aclidinium [place] 1 puff 09/20/16 22:00 09/24/16 10:32 Tudorza - IH 1 puff BID VIRGILIO Administration Albuterol Sulfate 1 amp 09/20/16 11:41 Ventolin 0.083% Nebulizer Soln - NEB Q4H PRN SHORT OF BREATH/WHEEZING Atorvastatin Calcium 20 mg 09/20/16 22:00 09/23/16 21:24 Lipitor - PO 20 mg HS VIRGILIO Administration Diltiazem HCl 300 mg 09/21/16 10:00 09/24/16 10:31 Cardizem Cd - PO 300 mg DAILY VIRGILIO Administration Ferrous Sulfate 325 mg 09/21/16 10:00 09/24/16 10:29 Feosol - PO 325 mg DAILY VIRGILIO Administration Guaifenesin 5 ml 09/20/16 11:41 09/23/16 10:20 Diabetic Tussin Dm - PO 5 ml Q6H PRN Administration COUGH Heparin Sodium (Porcine) 1,000 unit 09/20/16 13:06 09/22/16 10:24 Heparin - IVPUSH 1,000 unit PRN PRN Administration Heparin Heparin Sodium (Porcine) 5,000 unit 09/20/16 13:06 09/21/16 03:55 Heparin - IVPUSH 5,000 unit PRN PRN Administration Heparin IV Flush 10 ml 09/23/16 18:50 09/24/16 06:19 Neeta-Cath Flush IVPUSH 10 ml PRN PRN Administration FLUSH Insulin Aspart 1 vial 09/20/16 16:30 09/24/16 17:29 Novolog Vial Sliding Scale - SQ 6 unit ACHS VIRGILIO Administration Protocol Levothyroxine Sodium 75 mcg 09/21/16 07:00 09/24/16 06:09 Synthroid - PO 75 mcg DAILY@0700 VIRGILIO Administration Montelukast Sodium 10 mg 09/20/16 22:00 09/23/16 21:25 Singulair - PO 10 mg HS VIRGILIO Administration Nystatin 1 applic 09/21/16 02:45 09/24/16 10:31 Nystop Powder - TP 1 applic BID VIRGILIO Administration [id number] Ethyl Esters 1 gm 09/20/16 14:00 09/24/16 14:40 Lovaza - PO 1 gm TID VIRGILIO Administration Senna 1 tab 09/20/16 11:41 09/24/16 10:31 Senna - PO 1 tab DAILY PRN Administration Spironolactone 50 mg 09/21/16 10:00 09/24/16 10:31 Aldactone - PO 50 mg DAILY VIRGILIO Administration Warfarin Sodium 4 mg 09/23/16 18:00 09/23/16 17:31 Coumadin - PO 4 mg DAILY@1800 VIRGILIO Administration Images: Chest X-ray (09/08/16): Moderate left pleural effusion with compressive atelectasis. Multiple lung nodules - lung metastasis. Chest CT w/ Contrast (09/08/16): Innumerable bilateral pulmonary nodules, moderate to large left pleural effusion, and mediastinal and hilar lymphadenopathy are highly suspicious for metastatic disease. 2.9 cm hypodense mass is seen in the left lobe of the liver. Thoracocentesis under U/S guide (09/09/16) Chest X-ray (09/09/16): Decreased Pleural Effusion. No Pneumothorax seen. CT Abdomen and pelvis (09/10/16): CT abd/pelvis shows multiple metastatic pulmonary nodules, moderate left pleural effusion, hypodense left hepatic lobe mass, possible hypodense right hepatic lobe mass, diverticulosis CHEST X-RAY (09/20/16): Left lower lobe consolidation and probable left pleural effusion. ASSESSMENT/PLAN: Patient is a 61 year old female with PMHx of HTN, A.fib on Coumadin, DMII, CHF, COPD, GERD and hypothyroidism who presented for dyspnea and was found to have a large left pleural effusion with multiple nodules on chest x-ray. Patient admitted for further monitoring and management. Dyspnea Secondary to Malignant Pleural Effusions - Improving -S/P thoracentesis 09/09/16 and cytology was positive for malignant cells. Involvement by Adenocarcinoma, most consistent with Mullerian origin -S/P Left VATS/L pleurex 09/17/16 with 2L of serosanguinous fluid removed. 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 -Vascular consult appreciated Supratherapeutic INR -Today 4.87 -Will hold Coumadin today Anticholinergic Syndrome- Resolved -Will continue to monitor Asthma/COPD- Chronic -No history of smoking -Continue with Albuterol PRN -Continue 02 PRN -Pulmonology consult appreciated Hypomagnesemia-resolved -Will continue to monitor Atrial Fibrillation -Rate controlled -Held Coumadin today due to supratherapeutic INR -Continue Diltiazem Cd 300mg daily Systolic CHF- Chronic -No acute exacerbation at the time -Aldactone 50mg daily resumed -Daily weight -Hold lasix for hypotension DMII -Controlled -BGM ACHS -Novolog sliding scale HTN -Borderline Hypotensive -Hold Losartan 50mg daily -Hold Lasix -Continue to monitor BP HLD -Continue Lipitor 20mg Hypothyroidism -Continue Levothyroxine 75mcg daily GERD -Continue Ranitidine 150mg BID Morbid Obesity -Bariatric referral as outpatient F/E/N -On no fluids -Electrolytes wnl -Diabetic diet Prophylaxis -Coumadin 4mg for DVT Disposition -First Chemo session yesterday. Patient anticipated to be discharged if INR therapeutic . Visit type - Emergency Visit Emergency Visit: Yes ED Registration Date: 09/08/16 Care time: The patient presented to the Emergency Department on the above date and was hospitalized for further evaluation of their emergent condition. - New Patient This patient is new to me today: No - Critical Care Critical Care patient: No
--- NOTE | 2016-09-24 18:45 | PN ---
Progress Note (short form) - Note Progress Note: Patient seen and examined Tolerated chemotherapy Denies significant SOB or chest pains Last Vital Signs Temp Pulse Resp BP Pulse Ox 98.2 F 77 20 137/63 98 09/24/16 18:07 09/24/16 18:07 09/24/16 18:07 09/24/16 18:07 09/24/16 11:44 HEENT: FRANSICO, EOM Intact Oropharynx: No thrush, No mucositis Cor: irregular Lungs:decreased breath sounds Left lung posteriorly Chest tube drainage of serosanguineous material Abd:obese Ext:LE edema Skin: No rashes, Integument intact CBC, BMP 09/24/16 06:00 09/24/16 06:00 Current Medications Generic Name Dose Route Start Last Admin Trade Name Freq PRN Reason Stop Dose Admin Aclidinium [place] 1 puff 09/20/16 22:00 09/24/16 10:32 Tudorza - IH 1 puff BID VIRGILIO Administration Albuterol Sulfate 1 amp 09/20/16 11:41 Ventolin 0.083% Nebulizer Soln - NEB Q4H PRN SHORT OF BREATH/WHEEZING Atorvastatin Calcium 20 mg 09/20/16 22:00 09/23/16 21:24 Lipitor - PO 20 mg HS VIRGILIO Administration Diltiazem HCl 300 mg 09/21/16 10:00 09/24/16 10:31 Cardizem Cd - PO 300 mg DAILY VIRGILIO Administration Ferrous Sulfate 325 mg 09/21/16 10:00 09/24/16 10:29 Feosol - PO 325 mg DAILY VIRGILIO Administration Guaifenesin 5 ml 09/20/16 11:41 09/23/16 10:20 Diabetic Tussin Dm - PO 5 ml Q6H PRN Administration COUGH Heparin Sodium (Porcine) 1,000 unit 09/20/16 13:06 09/22/16 10:24 Heparin - IVPUSH 1,000 unit PRN PRN Administration Heparin Heparin Sodium (Porcine) 5,000 unit 09/20/16 13:06 09/21/16 03:55 Heparin - IVPUSH 5,000 unit PRN PRN Administration Heparin IV Flush 10 ml 09/23/16 18:50 09/24/16 06:19 Neeta-Cath Flush IVPUSH 10 ml PRN PRN Administration FLUSH Insulin Aspart 1 vial 09/20/16 16:30 09/24/16 17:29 Novolog Vial Sliding Scale - SQ 6 unit ACHS VIRGILIO Administration Protocol Levothyroxine Sodium 75 mcg 09/21/16 07:00 09/24/16 06:09 Synthroid - PO 75 mcg DAILY@0700 VIRGILIO Administration Montelukast Sodium 10 mg 09/20/16 22:00 09/23/16 21:25 Singulair - PO 10 mg HS VIRGILIO Administration Nystatin 1 applic 09/21/16 02:45 09/24/16 10:31 Nystop Powder - TP 1 applic BID VIRGILIO Administration Zvguo-[id number] Ethyl Esters 1 gm 09/20/16 14:00 09/24/16 14:40 Lovaza - PO 1 gm TID VIRGILIO Administration Senna 1 tab 09/20/16 11:41 09/24/16 10:31 Senna - PO 1 tab DAILY PRN Administration Spironolactone 50 mg 09/21/16 10:00 09/24/16 10:31 Aldactone - PO 50 mg DAILY VIRGILIO Administration Warfarin Sodium 4 mg 09/23/16 18:00 09/23/16 17:31 Coumadin - PO 4 mg DAILY@1800 VIRGILIO Administration Impression: Serous carcinoma of Mullerian origin Malignant left pleural effusion S/p pleurex catheter S/P chemotherapy atrial fib Bridging heparin--coumadin Plan: Bridge heparin -- coumadin Per pulmonary - cap pleurex and home drainage 1-2 x per week. Weekly chemotherapy
[2016-09-24] MEDS ORDERED: ONDANSETRON 4 MG/2 ML VIAL IVPUSH ONE (20:30)
[2016-09-24] MEDS: MONTELUKAST NA 10 MG TABLET PO SCH (21:33)
[2016-09-24] MEDS: ATORVASTATIN CA 20 MG TABLET (FP) PO SCH (21:33)
--- NOTE | 2016-09-25 01:36 | PN ---
Progress Note, Physician Chief Complaint: Pt is A&Ox3; not dyspneic; began chemotherapy yesterday. History of Present Illness: The patient is a 61 year old white female, with a significant past medical history of Hypertension (on Cardizem), AFIB, diabetes, diastolic CHF, COPD, morbid obesity, GERD and hypothyroidism, who presents to the emergency department with SOB for few days. Patient saw her PMD 2 days ago with the same complaint who was supposed to prescribe her breathing treatment pumps, but patient states that the pumps were never sent by her doctor which prompted her to present to the ED. Patient denies any new leg swelling. Patient reports orthopnea and states that she sleeps with 2 pillows. She notes that she is cold but denies any fever. She reports normal bowel movements. She denies any chest pain. She denies any hx of hernia. PSH - none PMD - Dr. Brambila - Current Medication List Current Medications: Active Medications Aclidinium [place] (Tudorza -) 1 puff IH BID VIRGILIO Last Admin: 09/24/16 21:36 Dose: 1 puff Albuterol Sulfate (Ventolin 0.083% Nebulizer Soln -) 1 amp NEB Q4H PRN PRN Reason: SHORT OF BREATH/WHEEZING Atorvastatin Calcium (Lipitor -) 20 mg PO HS VIRGILIO Last Admin: 09/24/16 21:33 Dose: 20 mg Diltiazem HCl (Cardizem Cd -) 300 mg PO DAILY VIRGILIO Last Admin: 09/24/16 10:31 Dose: 300 mg Ferrous Sulfate (Feosol -) 325 mg PO DAILY VIRGILIO Last Admin: 09/24/16 10:29 Dose: 325 mg Guaifenesin (Diabetic Tussin Dm -) 5 ml PO Q6H PRN PRN Reason: COUGH Last Admin: 09/23/16 10:20 Dose: 5 ml Heparin Sodium (Porcine) (Heparin -) 1,000 unit IVPUSH PRN PRN PRN Reason: Heparin Last Admin: 09/22/16 10:24 Dose: 1,000 unit Heparin Sodium (Porcine) (Heparin -) 5,000 unit IVPUSH PRN PRN PRN Reason: Heparin Last Admin: 09/21/16 03:55 Dose: 5,000 unit IV Flush (Neeta-Cath Flush) 10 ml IVPUSH PRN PRN PRN Reason: FLUSH Last Admin: 09/24/16 06:19 Dose: 10 ml Insulin Aspart (Novolog Vial Sliding Scale -) 1 vial SQ ACHS [facility] PRN Reason: Protocol Last Admin: 09/24/16 21:43 Dose: 6 unit Levothyroxine Sodium (Synthroid -) 75 mcg PO DAILY@0700 [facility] Last Admin: 09/24/16 06:09 Dose: 75 mcg Montelukast Sodium (Singulair -) 10 mg PO HS [facility] Last Admin: 09/24/16 21:33 Dose: 10 mg Nystatin (Nystop Powder -) 1 applic TP BID [facility] Last Admin: 09/24/16 21:43 Dose: 1 applic Ffkgh-9-Iitq Ethyl Esters (Lovaza -) 1 gm PO TID [facility] Last Admin: 09/24/16 21:33 Dose: 1 gm Senna (Senna -) 1 tab PO DAILY PRN Last Admin: 09/24/16 10:31 Dose: 1 tab Spironolactone (Aldactone -) 50 mg PO DAILY [facility] Last Admin: 09/24/16 10:31 Dose: 50 mg Warfarin Sodium (Coumadin -) 4 mg PO DAILY@1800 [facility] Last Admin: 09/23/16 17:31 Dose: 4 mg - Objective Vital Signs: Vital Signs Temperature 97.6 F 09/24/16 22:00 Pulse Rate 73 09/24/16 22:00 Respiratory Rate 20 09/24/16 22:00 Blood Pressure 132/59 09/24/16 22:00 O2 Sat by Pulse Oximetry (%) 98 09/24/16 21:00 Constitutional: Yes: Calm Eyes: Yes: WNL HENT: Yes: WNL Neck: Yes: WNL Cardiovascular: Yes: Pulse Irregular Respiratory: Yes: Diminished Gastrointestinal: Yes: Soft, Abdomen, Obese ...Rectal Exam: Yes: Deferred Genitourinary: No: Anuria Breast(s): Yes: WNL Musculoskeletal: Yes: Back Pain, Muscle Weakness Extremities: Yes: Cool Edema: Yes Edema: LLE: 2+, RLE: 2+ Peripheral Pulses WNL: Yes Wound/Incision: Yes: Other (pleur-X catheter left thorax) Neurological: Yes: Alert, Oriented Psychiatric: Yes: Other (anxiety/depression) Labs: CBC, BMP 09/24/16 06:00 09/24/16 06:00 INR, PTT INR 4.87 (0.82-1.09) H* D 09/24/16 06:00 Problem List - Problems (1) A-fib Assessment/Plan: On diltiazem. Recommend repeat ECHO once pt is again able to lie on left side (unable to assess LVEF or valve status on initial ECHO due to poor acoustic windows) when chest tube has been removed. INR> 4; hold warfarin, and restart to keep INR 2-3. Code(s): I48.91 - UNSPECIFIED ATRIAL FIBRILLATION (2) Acute dyspnea Code(s): R06.00 - DYSPNEA, UNSPECIFIED (3) Acute renal insufficiency Code(s): N28.9 - DISORDER OF KIDNEY AND URETER, UNSPECIFIED (4) CHF exacerbation Assessment/Plan: On diltiazem and Aldactone. f/u repeat ECHO for LVEF once chest tube has been removed and pt can lie on left side for better views. s/p pleur-x cath; cap and remove per puppet engineer. Code(s): I50.9 - HEART FAILURE, UNSPECIFIED (5) HTN (hypertension) Assessment/Plan: On diltiazem and Aldactone; BP controlled. Code(s): I10 - ESSENTIAL (PRIMARY) HYPERTENSION (6) Morbidly obese Code(s): E66.01 - MORBID (SEVERE) OBESITY DUE TO EXCESS CALORIES (7) Pleural effusion Code(s): J90 - PLEURAL EFFUSION, NOT ELSEWHERE CLASSIFIED (8) Supratherapeutic INR Code(s): R79.1 - ABNORMAL COAGULATION PROFILE (9) Cancer Code(s): C80.1 - MALIGNANT (PRIMARY) NEOPLASM, UNSPECIFIED (10) Anxiety and depression Code(s): F41.9 - ANXIETY DISORDER, UNSPECIFIED F32.9 - MAJOR DEPRESSIVE DISORDER, SINGLE EPISODE, UNSPECIFIED
[2016-09-25] MEDS: OMEGA-3 ACID ETHYL ESTERS (FATTY-ACIDS) 1 GM CAPSULE (FP) PO SCH ×3 (06:27→21:09)
[2016-09-25] MEDS: LEVOTHYROXINE NA 75 MCG TABLET (FP) PO SCH (06:27)
[2016-09-25] MEDS: INSULIN SLIDING SCALE (NOVOLOG) 1 VIAL SQ SCH ×4 (06:28→21:09)
[2016-09-25 07:54] LABS: MCH 24.8 pg (25.7-33.7); MCHC 32.6 g/dl (32.0-36.0); MEAN PLT VOLUME 9.8 fl (7.5-11.1); PLATELET COUNT 188 K/MM3 (134-434); RDW 16.9 % (11.6-15.6); WHITE BLOOD COUNT 7.5 K/mm3 (4.0-10.0)
[2016-09-25 08:11] LABS: PROTHROMBIN TIME (PATIENT) 45.7 SEC (9.98-11.88)
[2016-09-25 08:29] LABS: INR 4.04 (0.82-1.09)
--- NOTE | 2016-09-25 09:46 | PN ---
Progress Note (short form) - Note Progress Note: PULMONARY DRY COUGH/NAUSEA TODAY BLOODY DRAINAGE FROM CHEST TUBE CONTINUES VSS/AFEBRILE/MORBID OBESITY ANICTERIC/LEFT PORT IN PLACE DIMINISHE B/L BREATH SOUNDS/LEFT CHEST TUBE S1S2 OBESE LYMPHEDEMA LOWER EXT LABS/MEDS/NOTES/IMAGING/REVIEWED INR 4.04 A/P chemotherapy has begun metastatic adenocarcinoma of mullerian origin Left malignant effusion/drainage via tube Atrial Fibrillation on chronic a/c CHF HTN DM Morbid Obesity - monitor ct output - rate control - O2 as needed - DVT prophylaxis - pain control - check CXR Amy SULLIVAN MD
[2016-09-25] MEDS: SPIRONOLACTONE 25 MG TABLET (FP) PO SCH (10:16)
[2016-09-25] MEDS: FERROUS SO4 325 MG TABLET (FP) PO SCH (10:16)
[2016-09-25] MEDS: NYSTATIN POWDER 100,000 UNITS/GM - 15 GM TOPICAL POWDER TP SCH ×2 (10:16→21:11)
[2016-09-25] MEDS: ACLIDINIUM BROMIDE 400 MCG/INH AERO.POWD IH SCH ×2 (10:17→21:11)
--- NOTE | 2016-09-25 12:12 | PN ---
Progress Note, Physician History of Present Illness: The patient is a 61 year old female, with a significant past medical history of Hypertension (on Cardizem), AFIB, diabetes, CHF, COPD, GERD and hypothyroidism , who presents to the emergency department on with SOB for few days. Patient saw her PMD 2 days ago with the same complaint who was supposed to prescribe her breathing treatment pumps, but patient states that the pumps were never sent by her doctor which prompted her to present to the ED. Patient denies any new leg swelling. Patient reports orthopnea and states that she sleeps with 2 pillows. She notes that she is cold but denies any fever. She reports normal bowel movements. Duringh hospital course she was diagnosed with; 1. 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 Permanent atrial fibrillation - Continue Cardizem CD for rate control - Continue Coumadin 3. Hypomagnesemia - Improved 4. Morbid obesity with BMI 62.4 5. Hypothyroidism - Continue Synthroid 6. Type 2 DM - Continue Novolog sliding scale 7. HTN - Continue Cardizem - Cozaar, Aldactone held secondary to low BP and increasing creatinine 8. Hyperlipidemia - Continue Lipitor, Lovaza 9. COPD - Continue Tudorza, Singulair, Albuterol as needed 10. Chronic systolic heart failure - Cozaar, Aldactone held secondary to low BP - Current Medication List Current Medications: Active Medications Aclidinium [place] (Tudorza -) 1 puff IH BID [facility] Last Admin: 09/25/16 10:17 Dose: 1 puff Atorvastatin Calcium (Lipitor -) 20 mg PO HS [facility] Last Admin: 09/24/16 21:33 Dose: 20 mg Diltiazem HCl (Cardizem Cd -) 300 mg PO DAILY [facility] Last Admin: 09/25/16 10:16 Dose: 300 mg Ferrous Sulfate (Feosol -) 325 mg PO DAILY [facility] Last Admin: 09/25/16 10:16 Dose: 325 mg Guaifenesin (Diabetic Tussin Dm -) 5 ml PO Q6H PRN PRN Reason: COUGH Last Admin: 09/23/16 10:20 Dose: 5 ml Heparin Sodium (Porcine) (Heparin -) 1,000 unit IVPUSH PRN PRN PRN Reason: Heparin Last Admin: 09/22/16 10:24 Dose: 1,000 unit Heparin Sodium (Porcine) (Heparin -) 5,000 unit IVPUSH PRN PRN PRN Reason: Heparin Last Admin: 09/21/16 03:55 Dose: 5,000 unit IV Flush (Neeta-Cath Flush) 10 ml IVPUSH PRN PRN PRN Reason: FLUSH Last Admin: 09/24/16 06:19 Dose: 10 ml Insulin Aspart (Novolog Vial Sliding Scale -) 1 vial SQ ACHS VIRGILIO PRN Reason: Protocol Last Admin: 09/25/16 06:28 Dose: 4 unit Levothyroxine Sodium (Synthroid -) 75 mcg PO DAILY@0700 [facility] Last Admin: 09/25/16 06:27 Dose: 75 mcg Montelukast Sodium (Singulair -) 10 mg PO HS [facility] Last Admin: 09/24/16 21:33 Dose: 10 mg Nystatin (Nystop Powder -) 1 applic TP BID [facility] Last Admin: 09/25/16 10:16 Dose: 1 applic [id number] Ethyl Esters (Lovaza -) 1 gm PO TID [facility] Last Admin: 09/25/16 06:27 Dose: 1 gm Senna (Senna -) 1 tab PO DAILY PRN Last Admin: 09/24/16 10:31 Dose: 1 tab Spironolactone (Aldactone -) 50 mg PO DAILY [facility] Last Admin: 09/25/16 10:16 Dose: 50 mg Warfarin Sodium (Coumadin -) 4 mg PO DAILY@1800 [facility] Last Admin: 09/23/16 17:31 Dose: 4 mg - Objective Vital Signs: Vital Signs Temperature 97.6 F 09/24/16 22:00 Pulse Rate 73 09/24/16 22:00 Respiratory Rate 20 09/24/16 22:00 Blood Pressure 132/59 09/24/16 22:00 O2 Sat by Pulse Oximetry (%) 98 09/24/16 21:00 Eyes: Yes: WNL, Conjunctiva Clear, EOM Intact HENT: Yes: WNL, Atraumatic, Normocephalic Neck: Yes: WNL, Supple, Trachea Midline Cardiovascular: Yes: WNL, Regular Rate and Rhythm Respiratory: Yes: WNL, Regular, CTA Bilaterally Gastrointestinal: Yes: WNL, Normal Bowel Sounds Genitourinary: Yes: WNL Musculoskeletal: Yes: WNL Extremities: Yes: WNL Edema: No Integumentary: Yes: WNL Neurological: Yes: WNL, Alert, Oriented ...Motor Strength: WNL Psychiatric: Yes: WNL Labs: CBC, BMP 09/25/16 06:50 09/24/16 06:00 INR, PTT INR 4.04 (0.82-1.09) H* 09/25/16 06:50 Problem List - Problems (1) A-fib Code(s): I48.91 - UNSPECIFIED ATRIAL FIBRILLATION (2) Acute dyspnea Code(s): R06.00 - DYSPNEA, UNSPECIFIED (3) Acute renal insufficiency Code(s): N28.9 - DISORDER OF KIDNEY AND URETER, UNSPECIFIED (4) CHF exacerbation Code(s): I50.9 - HEART FAILURE, UNSPECIFIED (5) Cellulitis Code(s): L03.90 - CELLULITIS, UNSPECIFIED Qualifiers: Site of cellulitis: extremity Site of cellulitis of extremity: lower extremity Laterality: left Qualified Code(s): L03.116 - Cellulitis of left lower limb (6) HTN (hypertension) Code(s): I10 - ESSENTIAL (PRIMARY) HYPERTENSION (7) Morbidly obese Code(s): E66.01 - MORBID (SEVERE) OBESITY DUE TO EXCESS CALORIES (8) Pleural effusion Code(s): J90 - PLEURAL EFFUSION, NOT ELSEWHERE CLASSIFIED (9) Pulmonary nodules/lesions, multiple Code(s): R91.8 - OTHER NONSPECIFIC ABNORMAL FINDING OF LUNG FIELD (10) Supratherapeutic INR Code(s): R79.1 - ABNORMAL COAGULATION PROFILE (11) Hypothyroid Code(s): E03.9 - HYPOTHYROIDISM, UNSPECIFIED (12) Lymphedema Code(s): I89.0 - LYMPHEDEMA, NOT ELSEWHERE CLASSIFIED (13) Hematuria Code(s): R31.9 - HEMATURIA, UNSPECIFIED Assessment/Plan (1) A-fib Assessment/Plan: On diltiazem. Recommend repeat ECHO once pt is again able to lie on left side (unable to assess LVEF or valve status on initial ECHO due to poor acoustic windows) when chest tube has been removed. f/u [employer] restart to keep INR 2-3. Code(s): I48.91 - UNSPECIFIED ATRIAL FIBRILLATION (2) Acute dyspnea Code(s): R06.00 - DYSPNEA, UNSPECIFIED (3) Acute renal insufficiency Code(s): N28.9 - DISORDER OF KIDNEY AND URETER, UNSPECIFIED (4) CHF exacerbation Assessment/Plan: On diltiazem and Aldactone. f/u repeat ECHO for LVEF once chest tube has been removed and pt can lie on left side for better views. s/p pleur-x cath; cap and remove per special education assistant. Code(s): I50.9 - HEART FAILURE, UNSPECIFIED (5) HTN (hypertension) Assessment/Plan: On diltiazem and Aldactone; BP controlled. Code(s): I10 - ESSENTIAL (PRIMARY) HYPERTENSION (6) Morbidly obese Code(s): E66.01 - MORBID (SEVERE) OBESITY DUE TO EXCESS CALORIES (7) Pleural effusion Code(s): J90 - PLEURAL EFFUSION, NOT ELSEWHERE CLASSIFIED (8) Supratherapeutic INR Code(s): R79.1 - ABNORMAL COAGULATION PROFILE (9) Cancer Code(s): C80.1 - MALIGNANT (PRIMARY) NEOPLASM, UNSPECIFIED (10) Anxiety and depression Code(s): F41.9 - ANXIETY DISORDER, UNSPECIFIED F32.9 - MAJOR DEPRESSIVE DISORDER, SINGLE EPISODE, UNSPECIFIED
[2016-09-25] MEDS ORDERED: INSULIN (NOVOLOG) ASPART 100 UNITS/ML 10ML VIAL ONE ×2 (12:28→21:03)
--- NOTE | 2016-09-25 13:11 | PN ---
Teaching Attending Note Name of Resident: Natasha Hodge ATTENDING PHYSICIAN STATEMENT I saw and evaluated the patient. I reviewed the resident's note and discussed the case with the resident. I agree with the resident's findings and plan as documented. SUBJECTIVE: No complaints. OBJECTIVE: Vital Signs Period Temp Pulse Resp BP Sys/Dinero Pulse Ox Last 24 Hr 97.6 F-98.2 F 73-77 20-20 132-137/59-63 98 HEART: Irregularly irregular LUNGS: Clear with decreased BS at left base ABDOMEN: Obese, soft, non-tender, non-distended, normal BS EXTREMITIES: Lymphedema ASSESSMENT AND PLAN: This is a 61-year-old woman with a history of HTN, atrial fib, hypothyroidism, COPD, type 2 DM and morbid obesity who presented to the ER for dyspnea on exertion. 1. 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 Permanent atrial fibrillation - Continue Cardizem CD, Coumadin 3. Hypomagnesemia - Improved 4. Morbid obesity with BMI 61.4 5. Hypothyroidism - Continue Synthroid 6. Type 2 DM - Continue Novolog sliding scale 7. HTN - Continue Cardizem, Aldactone 8. Hyperlipidemia - Continue Lipitor, Lovaza 9. COPD - Continue Tudorza, Singulair, Albuterol as needed 10. Chronic systolic heart failure - Continue Aldactone - Cozaar held secondary to hypotension
[2016-09-25] MEDS ORDERED: ONDANSETRON 4 MG TABLET PO PRN (13:29)
--- NOTE | 2016-09-25 13:39 | PN ---
Physical Exam: SUBJECTIVE: Patient seen and examined by me at bedside. Patient was nauseated overnight. Patient states she was unable to sleep last night due to her nausea. It was explained that this might be side effects from the chemotherapy. Patient however denies any vomiting. Otherwise, patient denies shortness of breath, chest pain, palpitations, dizziness, headaches, diarrhea, constipation, abdominal pain. OBJECTIVE: Vital Signs Period Temp Pulse Resp BP Sys/Dinero Pulse Ox Last 24 Hr 97.6 F-98.2 F 73-77 20-20 132-137/59-63 98 GENERAL: The patient is awake, alert, and fully oriented, in no acute distress. LUNGS: Decreased breath sounds throughout left lung bases with no crackles or wheezes. Left chest tube draining. HEART: Irregularly irregular, normal S1 and S2 without murmur, rub or gallop. Left chemoport placement bandage c/d/i ABDOMEN: Soft, Obese, nontender, nondistended, normoactive bowel sounds. EXTREMITIES: B/L lower extremity chronic venous changes with lymphedema and scaly dry skin Laboratory Results - last 24 hr 09/24/16 09/24/16 09/25/16 16:57 21:31 06:08 WBC RBC Hgb Hct MCV MCHC RDW Plt Count MPV INR PTT (Actin FS) POC Glucometer 336 350 292 09/25/16 09/25/16 09/25/16 06:50 06:50 06:50 WBC 7.5 D RBC 4.70 Hgb 11.7 Hct 35.7 MCV 76.0 L MCHC 32.6 RDW 16.9 H Plt Count 188 MPV 9.8 INR 4.04 H* PTT (Actin FS) 47.6 H POC Glucometer 09/25/16 12:25 WBC RBC Hgb Hct MCV MCHC RDW Plt Count MPV INR PTT (Actin FS) POC Glucometer 292 Active Medications Generic Name Dose Route Start Last Admin Trade Name Freq PRN Reason Stop Dose Admin Aclidinium [place] 1 puff 09/20/16 22:00 09/25/16 10:17 Tudorza - IH 1 puff BID VIRGILIO Administration Atorvastatin Calcium 20 mg 09/20/16 22:00 09/24/16 21:33 Lipitor - PO 20 mg HS VIRGILIO Administration Diltiazem HCl 300 mg 09/21/16 10:00 09/25/16 10:16 Cardizem Cd - PO 300 mg DAILY VIRGILIO Administration Ferrous Sulfate 325 mg 09/21/16 10:00 09/25/16 10:16 Feosol - PO 325 mg DAILY VIRGILIO Administration Guaifenesin 5 ml 09/20/16 11:41 09/23/16 10:20 Diabetic Tussin Dm - PO 5 ml Q6H PRN Administration COUGH Heparin Sodium (Porcine) 1,000 unit 09/20/16 13:06 09/22/16 10:24 Heparin - IVPUSH 1,000 unit PRN PRN Administration Heparin Heparin Sodium (Porcine) 5,000 unit 09/20/16 13:06 09/21/16 03:55 Heparin - IVPUSH 5,000 unit PRN PRN Administration Heparin IV Flush 10 ml 09/23/16 18:50 09/24/16 06:19 Neeta-Cath Flush IVPUSH 10 ml PRN PRN Administration FLUSH Insulin Aspart 1 vial 09/20/16 16:30 09/25/16 13:02 Novolog Vial Sliding Scale - SQ 4 unit ACHS VIRGILIO Administration Protocol Levothyroxine Sodium 75 mcg 09/21/16 07:00 09/25/16 06:27 Synthroid - PO 75 mcg DAILY@0700 VIRGILIO Administration Montelukast Sodium 10 mg 09/20/16 22:00 09/24/16 21:33 Singulair - PO 10 mg HS VIRGILIO Administration Nystatin 1 applic 09/21/16 02:45 09/25/16 10:16 Nystop Powder - TP 1 applic BID VIRGILIO Administration [id number] Ethyl Esters 1 gm 09/20/16 14:00 09/25/16 13:05 Lovaza - PO 1 gm TID VIRGILIO Administration Ondansetron HCl 4 mg 09/25/16 13:29 Zofran - PO Q8H PRN NAUSEA AND/OR VOMITING Senna 1 tab 09/20/16 11:41 09/24/16 10:31 Senna - PO 1 tab DAILY PRN Administration Spironolactone 50 mg 09/21/16 10:00 09/25/16 10:16 Aldactone - PO 50 mg DAILY VIRGILIO Administration Warfarin Sodium 4 mg 09/23/16 18:00 09/23/16 17:31 Coumadin - PO 4 mg DAILY@1800 VIRGILIO Administration Images: Chest X-ray (09/08/16): Moderate left pleural effusion with compressive atelectasis. Multiple lung nodules - lung metastasis. Chest CT w/ Contrast (09/08/16): Innumerable bilateral pulmonary nodules, moderate to large left pleural effusion, and mediastinal and hilar lymphadenopathy are highly suspicious for metastatic disease. 2.9 cm hypodense mass is seen in the left lobe of the liver. Thoracocentesis under U/S guide (09/09/16) Chest X-ray (09/09/16): Decreased Pleural Effusion. No Pneumothorax seen. CT Abdomen and pelvis (09/10/16): CT abd/pelvis shows multiple metastatic pulmonary nodules, moderate left pleural effusion, hypodense left hepatic lobe mass, possible hypodense right hepatic lobe mass, diverticulosis CHEST X-RAY (09/20/16): Left lower lobe consolidation and probable left pleural effusion. ASSESSMENT/PLAN: Patient is a 61 year old female with PMHx of HTN, A.fib on Coumadin, DMII, CHF, COPD, GERD and hypothyroidism who presented for dyspnea and was found to have a large left pleural effusion with multiple nodules on chest x-ray. Patient admitted for further monitoring and management. Dyspnea Secondary to Malignant Pleural Effusions - Improving -S/P thoracentesis 09/09/16 and cytology was positive for malignant cells. Involvement by Adenocarcinoma, most consistent with Mullerian origin -S/P Left VATS/L pleurex 09/17/16 with 2L of serosanguinous fluid removed. 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 -Vascular consult appreciated Nausea -Likely secondary to chemotherapy -Continue Zofran 4mg PRN Supratherapeutic INR -Today 4.04 -Will continue to hold Coumadin Anticholinergic Syndrome- Resolved -Will continue to monitor Asthma/COPD- Chronic -No history of smoking -Continue with Albuterol PRN -Continue 02 PRN -Pulmonology consult appreciated Hypomagnesemia-resolved -Will continue to monitor Atrial Fibrillation -Rate controlled -Held continue to hold Coumadin due to supratherapeutic INR -Continue Diltiazem Cd 300mg daily Systolic CHF- Chronic -No acute exacerbation at the time -Aldactone 50mg daily resumed -Daily weight -Hold lasix for hypotension DMII -Controlled -BGM ACHS -Novolog sliding scale HTN -Borderline Hypotensive -Hold Losartan 50mg daily -Hold Lasix -Continue to monitor BP HLD -Continue Lipitor 20mg Hypothyroidism -Continue Levothyroxine 75mcg daily GERD -Continue Ranitidine 150mg BID Morbid Obesity -Bariatric referral as outpatient F/E/N -On no fluids -Electrolytes wnl -Diabetic diet Prophylaxis -Will hold Coumadin as patient is subtherapeutic Disposition -First Chemo session 09/24/16. Patient anticipated to be discharged if INR therapeutic Visit type - Emergency Visit Emergency Visit: Yes ED Registration Date: 09/08/16 Care time: The patient presented to the Emergency Department on the above date and was hospitalized for further evaluation of their emergent condition. - New Patient This patient is new to me today: No - Critical Care Critical Care patient: No
[2016-09-25] MEDS: MONTELUKAST NA 10 MG TABLET PO SCH (21:09)
[2016-09-25] MEDS: ATORVASTATIN CA 20 MG TABLET (FP) PO SCH (21:09)
[2016-09-25] MEDS: ONDANSETRON 4 MG/2 ML VIAL IVPB PRN (21:10)
--- NOTE | 2016-09-25 22:09 | PN ---
Progress Note (short form) - Note Progress Note: Patient seen and examined s/p port-a-cath placement c/o mild diarrhea Last Vital Signs Temp Pulse Resp BP Pulse Ox 97.6 F 85 20 130/70 99 09/25/16 20:29 09/25/16 20:29 09/25/16 20:30 09/25/16 20:29 09/25/16 20:30 Cor: RSR, No murmurs, No gallops Lungs: Clear to P&A Abd: Soft, Normal bowel sounds, No organomegaly Ext:No significant edema Abnormal Lab Results 09/25/16 09/25/16 09/25/16 06:50 06:50 06:50 MCV 76.0 L RDW 16.9 H INR 4.04 H* PTT (Actin FS) 47.6 H A/P Metasatic mullerian cancer, pleural effusion, s/p VATS/chest tube Discussed chemotherapy carbo/taxol, weekly with patient and daughters Received carboplatin AUC=2 and taxol 60mg/m2 C1 D3 some nausea For zofran IVPB Plan for weekly chemotherapy neupogen as necessary will need f/u of chest tube
[2016-09-26] MEDS: OMEGA-3 ACID ETHYL ESTERS (FATTY-ACIDS) 1 GM CAPSULE (FP) PO SCH ×3 (05:53→21:03)
[2016-09-26] MEDS: LEVOTHYROXINE NA 75 MCG TABLET (FP) PO SCH (06:21)
[2016-09-26] MEDS: INSULIN SLIDING SCALE (NOVOLOG) 1 VIAL SQ SCH ×4 (06:22→21:03)
[2016-09-26 07:33] LABS: MCH 24.7 pg (25.7-33.7); MCHC 32.3 g/dl (32.0-36.0); MEAN CELL VOLUME 76.4 fl (80-96); MEAN PLT VOLUME 9.9 fl (7.5-11.1); PLATELET COUNT 186 K/MM3 (134-434); WHITE BLOOD COUNT 6.2 K/mm3 (4.0-10.0)
[2016-09-26 07:50] LABS: INR 3.65 (0.82-1.09); PROTHROMBIN TIME (PATIENT) 41.2 SEC (9.98-11.88)
--- NOTE | 2016-09-26 09:01 | PN ---
Teaching Attending Note Name of Resident: Natasha Hodge ATTENDING PHYSICIAN STATEMENT I saw and evaluated the patient. I reviewed the resident's note and discussed the case with the resident. I agree with the resident's findings and plan as documented. SUBJECTIVE: Patient complains of nausea and lack of appetite. OBJECTIVE: Vital Signs Period Temp Pulse Resp BP Sys/Dinero Pulse Ox Last 24 Hr 97.6 F-97.8 F 70-86 20-20 122-138/53-76 97-99 HEART: Irregularly irregular LUNGS: Clear with decreased BS at left base ABDOMEN: Obese, soft, non-tender, non-distended, normal BS EXTREMITIES: Lymphedema ASSESSMENT AND PLAN: This is a 61-year-old woman with a history of HTN, atrial fib, hypothyroidism, COPD, type 2 DM and morbid obesity who presented to the ER for dyspnea on exertion. 1. 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 Permanent atrial fibrillation - Continue Cardizem CD, Coumadin 3. Hypomagnesemia - Improved 4. Morbid obesity with BMI 61.5 5. Hypothyroidism - Continue Synthroid 6. Type 2 DM - Continue Novolog sliding scale 7. HTN - Continue Cardizem, Aldactone 8. Hyperlipidemia - Continue Lipitor, Lovaza 9. COPD - Continue Tudorza, Singulair, Albuterol as needed 10. Chronic systolic heart failure - Continue Aldactone - Cozaar held secondary to hypotension
--- NOTE | 2016-09-26 09:28 | PN ---
Physical Exam: SUBJECTIVE: Patient seen and examined by me at bedside. Patient had nausea overnight and required more Zofran. She reports she still has no appetite and unable to eat anything. She tried eating a chicken strip brought over by her daughter but could not tolerate it without getting nauseated. Otherwise, patient denies fever, chills, shortness of breath, chest pain, palpitations. OBJECTIVE: Vital Signs Period Temp Pulse Resp BP Sys/Dinero Pulse Ox Last 24 Hr 97.6 F-97.8 F 70-86 20-20 122-138/53-76 97-99 GENERAL: The patient is awake, alert, and fully oriented, in no acute distress. LUNGS: Decreased breath sounds throughout left lung bases with no crackles or wheezes. Left chest tube draining. HEART: Irregularly irregular, normal S1 and S2 without murmur, rub or gallop. Left chemoport placement bandage c/d/i ABDOMEN: Soft, Obese, nontender, nondistended, normoactive bowel sounds. EXTREMITIES: B/L lower extremity chronic venous changes with lymphedema and scaly dry skin Laboratory Results - last 24 hr 09/25/16 09/25/16 09/25/16 12:25 16:53 21:08 WBC RBC Hgb Hct MCV MCHC RDW Plt Count MPV INR PTT (Actin FS) POC Glucometer 292 271 252 09/26/16 09/26/16 09/26/16 05:47 06:00 06:00 WBC 6.2 RBC 4.78 Hgb 11.8 Hct 36.6 MCV 76.4 L MCHC 32.3 RDW 17.0 H Plt Count 186 MPV 9.9 INR PTT (Actin FS) 69.1 H D POC Glucometer 233 09/26/16 06:00 WBC RBC Hgb Hct MCV MCHC RDW Plt Count MPV INR 3.65 H PTT (Actin FS) POC Glucometer Active Medications Generic Name Dose Route Start Last Admin Trade Name Freq PRN Reason Stop Dose Admin Aclidinium [place] 1 puff 09/20/16 22:00 09/25/16 21:11 Tudorza - IH 1 puff BID VIRGILIO Administration Atorvastatin Calcium 20 mg 09/20/16 22:00 09/25/16 21:09 Lipitor - PO 20 mg HS VIRGILIO Administration Diltiazem HCl 300 mg 09/21/16 10:00 09/25/16 10:16 Cardizem Cd - PO 300 mg DAILY VIRGILIO Administration Ferrous Sulfate 325 mg 09/21/16 10:00 09/25/16 10:16 Feosol - PO 325 mg DAILY VIRGILIO Administration Guaifenesin 5 ml 09/20/16 11:41 09/23/16 10:20 Diabetic Tussin Dm - PO 5 ml Q6H PRN Administration COUGH Heparin Sodium (Porcine) 1,000 unit 09/20/16 13:06 09/22/16 10:24 Heparin - IVPUSH 1,000 unit PRN PRN Administration Heparin Heparin Sodium (Porcine) 5,000 unit 09/20/16 13:06 09/21/16 03:55 Heparin - IVPUSH 5,000 unit PRN PRN Administration Heparin IV Flush 10 ml 09/23/16 18:50 09/24/16 06:19 Neeta-Cath Flush IVPUSH 10 ml PRN PRN Administration FLUSH Insulin Aspart 1 vial 09/20/16 16:30 09/26/16 06:22 Novolog Vial Sliding Scale - SQ 2 unit ACHS VIRGILIO Administration Protocol Levothyroxine Sodium 75 mcg 09/21/16 07:00 09/26/16 06:21 Synthroid - PO 75 mcg DAILY@0700 VIRGILIO Administration Montelukast Sodium 10 mg 09/20/16 22:00 09/25/16 21:09 Singulair - PO 10 mg HS VIRGILIO Administration Nystatin 1 applic 09/21/16 02:45 09/25/16 21:11 Nystop Powder - TP 1 applic BID VIRGILIO Administration Wwxhw-[id number] Ethyl Esters 1 gm 09/20/16 14:00 09/26/16 05:53 Lovaza - PO 1 gm TID VIRGILIO Administration Ondansetron HCl 8 mg 09/25/16 19:20 09/25/16 21:10 Zofran Injection IVPB 8 mg Q12H PRN Administration NAUSEA Senna 1 tab 09/20/16 11:41 09/24/16 10:31 Senna - PO 1 tab DAILY PRN Administration Spironolactone 50 mg 09/21/16 10:00 09/25/16 10:16 Aldactone - PO 50 mg DAILY VIRGILIO Administration Warfarin Sodium 4 mg 09/23/16 18:00 09/23/16 17:31 Coumadin - PO 4 mg DAILY@1800 VIRGILIO Administration Images: Chest X-ray (09/08/16): Moderate left pleural effusion with compressive atelectasis. Multiple lung nodules - lung metastasis. Chest CT w/ Contrast (09/08/16): Innumerable bilateral pulmonary nodules, moderate to large left pleural effusion, and mediastinal and hilar lymphadenopathy are highly suspicious for metastatic disease. 2.9 cm hypodense mass is seen in the left lobe of the liver. Thoracocentesis under U/S guide (09/09/16) Chest X-ray (09/09/16): Decreased Pleural Effusion. No Pneumothorax seen. CT Abdomen and pelvis (09/10/16): CT abd/pelvis shows multiple metastatic pulmonary nodules, moderate left pleural effusion, hypodense left hepatic lobe mass, possible hypodense right hepatic lobe mass, diverticulosis CHEST X-RAY (09/20/16): Left lower lobe consolidation and probable left pleural effusion. CHEST X-RAY (09/25/16): There is slightly better aeration of the left lung base ASSESSMENT/PLAN: Patient is a 61 year old female with PMHx of HTN, A.fib on Coumadin, DMII, CHF, COPD, GERD and hypothyroidism who presented for dyspnea and was found to have a large left pleural effusion with multiple nodules on chest x-ray. Patient admitted for further monitoring and management. Dyspnea Secondary to Malignant Pleural Effusions - Improving -S/P thoracentesis 09/09/16 and cytology was positive for malignant cells. Involvement by Adenocarcinoma, most consistent with Mullerian origin -S/P Left VATS/L pleurex 09/17/16 with 2L of serosanguinous fluid removed. Drained 650mls in last 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 -Vascular consult appreciated Nausea -Likely secondary to chemotherapy -Zofran 4mg given overnight -Will Switch to [place] Supratherapeutic INR -Today 3.65 -Will resume coumadin 4mg tonight Apathetic/Loss of appetite -Possible depression -Likely due to new diagnosis of Ovarian cancer -Psychologist consult placed Anticholinergic Syndrome- Resolved -Will continue to monitor Asthma/COPD- Chronic -No history of smoking -Continue with Albuterol PRN -Continue 02 PRN -Pulmonology consult appreciated Hypomagnesemia-resolved -Will continue to monitor Atrial Fibrillation -Rate controlled -Resume Coumadin 4mg today -Continue Diltiazem Cd 300mg daily Systolic CHF- Chronic -No acute exacerbation at the time -Aldactone 50mg daily resumed -Daily weight -Hold lasix for hypotension DMII -Controlled -BGM ACHS -Novolog sliding scale HTN -Borderline Hypotensive -Hold Losartan 50mg daily -Hold Lasix -Continue to monitor BP HLD -Continue Lipitor 20mg Hypothyroidism -Continue Levothyroxine 75mcg daily GERD -Continue Ranitidine 150mg BID Morbid Obesity -Bariatric referral as outpatient F/E/N -On no fluids -Electrolytes wnl -Diabetic diet Prophylaxis -Will resume Coumadin 4mg today Disposition -s/p first Chemo session 09/24/16 with nausea afterwards. remains suprathereupetic but improved. Will resume Coumadin 4mg. Patient continues to have >100mls drainage from her pleurex. Will contact Dr. Mnédez Visit type - Emergency Visit Emergency Visit: Yes ED Registration Date: 09/08/16 Care time: The patient presented to the Emergency Department on the above date and was hospitalized for further evaluation of their emergent condition. - New Patient This patient is new to me today: No - Critical Care Critical Care patient: No
[2016-09-26] MEDS: FERROUS SO4 325 MG TABLET (FP) PO SCH (09:30)
[2016-09-26] MEDS: ONDANSETRON 4 MG/2 ML VIAL IVPB PRN (09:30)
[2016-09-26] MEDS: SPIRONOLACTONE 25 MG TABLET (FP) PO SCH (09:30)
--- NOTE | 2016-09-26 11:12 | PN ---
Progress Note (short form) - Note Progress Note: PULMONARY Denies shortness of breath. Drained 650mL from chest tube yesterday. Last Vital Signs Temp Pulse Resp BP Pulse Ox 97.8 F 73 20 122/59 98 09/26/16 05:26 09/26/16 11:05 09/26/16 05:26 09/26/16 05:26 09/26/16 11:05 Gen: NAD in chair Heart: RRR Lung: decreased breath sounds left bases Abd: soft, nontender Ext: + edema Chest tube: serosanguinous drainage, no air leak CBC, BMP 09/26/16 06:00 09/24/16 06:00 Active Medications Aclidinium [place] (Tudorza -) 1 puff IH BID [facility] Last Admin: 09/25/16 21:11 Dose: 1 puff Atorvastatin Calcium (Lipitor -) 20 mg PO HS [facility] Last Admin: 09/25/16 21:09 Dose: 20 mg Diltiazem HCl (Cardizem Cd -) 300 mg PO DAILY [facility] Last Admin: 09/26/16 09:30 Dose: 300 mg Ferrous Sulfate (Feosol -) 325 mg PO DAILY [facility] Last Admin: 09/26/16 09:30 Dose: 325 mg Guaifenesin (Diabetic Tussin Dm -) 5 ml PO Q6H PRN PRN Reason: COUGH Last Admin: 09/23/16 10:20 Dose: 5 ml IV Flush (Neeta-Cath Flush) 10 ml IVPUSH PRN PRN PRN Reason: FLUSH Last Admin: 09/24/16 06:19 Dose: 10 ml Insulin Aspart (Novolog Vial Sliding Scale -) 1 vial SQ [facility] PRN Reason: Protocol Last Admin: 09/26/16 06:22 Dose: 2 unit Levothyroxine Sodium (Synthroid -) 75 mcg PO DAILY@0700 [facility] Last Admin: 09/26/16 06:21 Dose: 75 mcg Montelukast Sodium (Singulair -) 10 mg PO [facility] Last Admin: 09/25/16 21:09 Dose: 10 mg Nystatin (Nystop Powder -) 1 applic TP BID [facility] Last Admin: 09/25/16 21:11 Dose: 1 applic Atpko-5-Xbif Ethyl Esters (Lovaza -) 1 gm PO TID [facility] Last Admin: 09/26/16 05:53 Dose: 1 gm Ondansetron HCl (Zofran Injection) 8 mg IVPB Q12H PRN PRN Reason: NAUSEA Last Admin: 09/26/16 09:30 Dose: 8 mg Senna (Senna -) 1 tab PO DAILY PRN Last Admin: 09/24/16 10:31 Dose: 1 tab Spironolactone (Aldactone -) 50 mg PO DAILY VIRGILIO Last Admin: 09/26/16 09:30 Dose: 50 mg Warfarin Sodium (Coumadin -) 4 mg PO DAILY@1800 [facility] Last Admin: 09/23/16 17:31 Dose: 4 mg A/P Metastatic Adenocarcinoma of Mullerian origin Malignant Left Pleural Effusion s/p L VATS/pleur-x placement Bilateral Lung Nodules likely metastatic disease Atrial Fibrillation CHF HTN DM Morbid Obesity - can cap pleur-x catheter and drain 1-2x/week depending on symptoms - rate controlled - continue anticoagulation - O2 as needed - DVT prophylaxis - d/c planning
--- NOTE | 2016-09-26 14:05 | CON.PSL ---
Psychology Consult Consult Specialty:: Clinical Psychology Referred by:: Natasha Hodge MD History Provided By: Patient Limitations to Obtaining History: No Limitations Current Medications: Active Medications Aclidinium [place] (Tudorza -) 1 puff IH BID [facility] Last Admin: 09/25/16 21:11 Dose: 1 puff Atorvastatin Calcium (Lipitor -) 20 mg PO HS [facility] Last Admin: 09/25/16 21:09 Dose: 20 mg Diltiazem HCl (Cardizem Cd -) 300 mg PO DAILY [facility] Last Admin: 09/26/16 09:30 Dose: 300 mg Ferrous Sulfate (Feosol -) 325 mg PO DAILY [facility] Last Admin: 09/26/16 09:30 Dose: 325 mg Guaifenesin (Diabetic Tussin Dm -) 5 ml PO Q6H PRN PRN Reason: COUGH Last Admin: 09/23/16 10:20 Dose: 5 ml IV Flush (Netea-Cath Flush) 10 ml IVPUSH PRN PRN PRN Reason: FLUSH Last Admin: 09/24/16 06:19 Dose: 10 ml Insulin Aspart (Novolog Vial Sliding Scale -) 1 vial SQ ACHS [facility] PRN Reason: Protocol Last Admin: 09/26/16 06:22 Dose: 2 unit Levothyroxine Sodium (Synthroid -) 75 mcg PO DAILY@0700 [facility] Last Admin: 09/26/16 06:21 Dose: 75 mcg Montelukast Sodium (Singulair -) 10 mg PO HS [facility] Last Admin: 09/25/16 21:09 Dose: 10 mg Nystatin (Nystop Powder -) 1 applic TP BID [facility] Last Admin: 09/25/16 21:11 Dose: 1 applic Ymqsc-5-Uieu Ethyl Esters (Lovaza -) 1 gm PO TID [facility] Last Admin: 09/26/16 05:53 Dose: 1 gm Ondansetron HCl (Zofran Injection) 8 mg IVPB Q12H PRN PRN Reason: NAUSEA Last Admin: 09/26/16 09:30 Dose: 8 mg Senna (Senna -) 1 tab PO DAILY PRN Last Admin: 09/24/16 10:31 Dose: 1 tab Spironolactone (Aldactone -) 50 mg PO DAILY [facility] Last Admin: 09/26/16 09:30 Dose: 50 mg Warfarin Sodium (Coumadin -) 4 mg PO DAILY@1800 [facility] Last Admin: 09/23/16 17:31 Dose: 4 mg Allergies: Allergies Allergy/AdvReac Type Severity Reaction Status Date / Time No Known Allergies Allergy Verified 09/08/16 18:05 Does patient have pain?: No Hx Alcohol Use: No Hx Substance Use: No Hx Substance Use Treatment: No - Family History Family History: Unremarkable Current Medical Exam-Psy Attention: Alert, Diminished, Other Orientation: Time, Person, Place Immediate Term Memory: 06/21 Receptive: Age Appropriate Comprehension of Spoken Words Hallucinations: Absent Thought Process: Intact Depression: Severe Hopelessness: No Loss of Interest: No Anxiety Level: Severe (Patient denied anxiety but her affect was that of a very anxious person regarding her medical conditions.) Danger to Self and Others: No Sleep: Poorly, Difficulty falling asleep Appetite: Poor Serial Sevens Intact: Yes Repeats 3 words told earlier: 05/24 (Although immediate memory was intact, her delayed recall was not as good possibly due to other conversations nearby.) Support System: Child/Children (She has two daughters who visit regularly per patient.) Leisure activities: With Family Problem List - Problem (1) Anxiety and depression Code(s): F41.9 - ANXIETY DISORDER, UNSPECIFIED F32.9 - MAJOR DEPRESSIVE DISORDER, SINGLE EPISODE, UNSPECIFIED Assessment/Plan The patient is experiencing a major depression at a severe level with anxiety due to her medical conditions. She is concerned about how she will fair with her chemotherapy and future health. The patient is receptive to psychological treatment as was described to her. The patient will be seen both while she is an inpatient and on an outpatient basis if she can travel to my office. Thank you for your kind referral. Robin Trevino Psy.D., [place], [facility] Lic. [id number]
[2016-09-26] MEDS: ACLIDINIUM BROMIDE 400 MCG/INH AERO.POWD IH SCH ×2 (15:09→21:09)
[2016-09-26] MEDS: NYSTATIN POWDER 100,000 UNITS/GM - 15 GM TOPICAL POWDER TP SCH ×2 (15:09→21:03)
[2016-09-26] MEDS ORDERED: WARFARIN NA 1 MG TABLET (FP) PO SCH (18:00)
[2016-09-26] MEDS ORDERED: INSULIN (NOVOLOG) ASPART 100 UNITS/ML 10ML VIAL ONE (19:42)
[2016-09-26] MEDS: ATORVASTATIN CA 20 MG TABLET (FP) PO SCH (21:02)
[2016-09-26] MEDS: MONTELUKAST NA 10 MG TABLET PO SCH (21:03)
--- NOTE | 2016-09-26 22:16 | PN ---
Progress Note (short form) - Note Progress Note: Patient seen and examined mild nausea chect stube still draining AFVSS Cor: RSR, No murmurs, No gallops Lungs: Clear to P&A Abd: Soft, Normal bowel sounds, No organomegaly Ext:No significant edema labs reviewed A/P Metasatic mullerian cancer, pleural effusion, s/p VATS/chest tube Received carboplatin AUC=2 and taxol 60mg/m2 C1 D4 some nausea For zofran IVPB Plan for weekly chemotherapy neupogen as necessary will need f/u of chest tube
--- NOTE | 2016-09-26 22:57 | PN ---
Progress Note, Physician Chief Complaint: Pt is A&Ox3; not dyspneic; no chest pain ;felt nauseous while undergoing chemotherapy. History of Present Illness: The patient is a 61 year old white female, with a significant past medical history of Hypertension (on Cardizem), AFIB, diabetes, diastolic CHF, COPD, morbid obesity, GERD and hypothyroidism, who presents to the emergency department with SOB for few days. Patient saw her PMD 2 days ago with the same complaint who was supposed to prescribe her breathing treatment pumps, but patient states that the pumps were never sent by her doctor which prompted her to present to the ED. Patient denies any new leg swelling. Patient reports orthopnea and states that she sleeps with 2 pillows. She notes that she is cold but denies any fever. She reports normal bowel movements. She denies any chest pain. She denies any hx of hernia. PSH - none PMD - Dr. Brambila - Current Medication List Current Medications: Active Medications Aclidinium [place] (Tudorza -) 1 puff IH BID [facility] Last Admin: 09/26/16 21:09 Dose: 1 puff Atorvastatin Calcium (Lipitor -) 20 mg PO HS [facility] Last Admin: 09/26/16 21:02 Dose: 20 mg Diltiazem HCl (Cardizem Cd -) 300 mg PO DAILY [facility] Last Admin: 09/26/16 09:30 Dose: 300 mg Ferrous Sulfate (Feosol -) 325 mg PO DAILY [facility] Last Admin: 09/26/16 09:30 Dose: 325 mg Guaifenesin (Diabetic Tussin Dm -) 5 ml PO Q6H PRN PRN Reason: COUGH Last Admin: 09/23/16 10:20 Dose: 5 ml IV Flush (Neeta-Cath Flush) 10 ml IVPUSH PRN PRN PRN Reason: FLUSH Last Admin: 09/24/16 06:19 Dose: 10 ml Insulin Aspart (Novolog Vial Sliding Scale -) 1 vial SQ ACHS [facility] PRN Reason: Protocol Last Admin: 09/26/16 21:03 Dose: 4 unit Levothyroxine Sodium (Synthroid -) 75 mcg PO DAILY@0700 [facility] Last Admin: 09/26/16 06:21 Dose: 75 mcg Montelukast Sodium (Singulair -) 10 mg PO [facility] Last Admin: 06/08/17 21:03 Dose: 10 mg Nystatin (Nystop Powder -) 1 applic TP BID [facility] Last Admin: 09/26/16 21:03 Dose: 1 applic Gxkeb-[id number] Ethyl Esters (Lovaza -) 1 gm PO TID [facility] Last Admin: 09/26/16 21:03 Dose: 1 gm Ondansetron HCl (Zofran Injection) 8 mg IVPB Q12H PRN PRN Reason: NAUSEA Last Admin: 09/26/16 09:30 Dose: 8 mg Senna (Senna -) 1 tab PO DAILY PRN Last Admin: 09/24/16 10:31 Dose: 1 tab Spironolactone (Aldactone -) 50 mg PO DAILY [facility] Last Admin: 09/26/16 09:30 Dose: 50 mg Warfarin Sodium (Coumadin -) 4 mg PO DAILY@1800 [facility] Last Admin: 09/26/16 17:43 Dose: 4 mg - Objective Vital Signs: Vital Signs Temperature 97.4 F L 09/26/16 20:51 Pulse Rate 82 09/26/16 20:51 Respiratory Rate 20 09/26/16 20:54 Blood Pressure 108/58 09/26/16 20:51 O2 Sat by Pulse Oximetry (%) 99 09/26/16 20:54 Constitutional: Yes: Calm Eyes: Yes: WNL HENT: Yes: WNL Neck: Yes: WNL Cardiovascular: Yes: Pulse Irregular Respiratory: Yes: Diminished (left base) Gastrointestinal: Yes: Abdomen, Obese ...Rectal Exam: Yes: Deferred Genitourinary: No: Anuria Musculoskeletal: Yes: Joint Stiffness, Joint Swelling, Muscle Weakness Extremities: Yes: Cool Edema: Yes Edema: LLE: 2+, RLE: 2+ Peripheral Pulses WNL: No Peripheral Pulses: Left Doralis Pedis: 1+, Right Dorsalis Pedis: 1+ Integumentary: Yes: Venous Stasis Changes Wound/Incision: Yes: Other (left sided chest tube) Labs: CBC, BMP 09/26/16 06:00 09/24/16 06:00 INR, PTT INR 3.65 (0.82-1.09) H 09/26/16 06:00 - ....Imaging Chest X-ray: Image Reviewed Problem List - Problems (1) A-fib Assessment/Plan: On diltiazem. Recommend repeat ECHO once pt is again able to lie on left side (unable to assess LVEF or valve status on initial ECHO due to poor acoustic windows) when chest tube has been removed. INR> 4-->3.65; hold warfarin, and restart to keep INR 2-3. Code(s): I48.91 - UNSPECIFIED ATRIAL FIBRILLATION (2) Acute dyspnea Code(s): R06.00 - DYSPNEA, UNSPECIFIED (3) Acute renal insufficiency Code(s): N28.9 - DISORDER OF KIDNEY AND URETER, UNSPECIFIED (4) CHF exacerbation Assessment/Plan: On diltiazem and Aldactone. f/u repeat ECHO for LVEF once pt can lie on left side for better views. s/p pleur-x cath; recommended cap and drain periodically per wildlife conservationist (650 cc drained today). Code(s): I50.9 - HEART FAILURE, UNSPECIFIED (5) HTN (hypertension) Assessment/Plan: On diltiazem and Aldactone; BP controlled. Code(s): I10 - ESSENTIAL (PRIMARY) HYPERTENSION (6) Morbidly obese Code(s): E66.01 - MORBID (SEVERE) OBESITY DUE TO EXCESS CALORIES (7) Pleural effusion Assessment/Plan: s/p pleur-x cath and drainage; f/u lab findings. Code(s): J90 - PLEURAL EFFUSION, NOT ELSEWHERE CLASSIFIED (8) Supratherapeutic INR Code(s): R79.1 - ABNORMAL COAGULATION PROFILE (9) Cancer Assessment/Plan: adenocarcinoma with metastases. Code(s): C80.1 - MALIGNANT (PRIMARY) NEOPLASM, UNSPECIFIED (10) Anxiety and depression Assessment/Plan: f/u carefully; pt is still adjusting to knowledge of having cancer. Code(s): F41.9 - ANXIETY DISORDER, UNSPECIFIED F32.9 - MAJOR DEPRESSIVE DISORDER, SINGLE EPISODE, UNSPECIFIED
[2016-09-27] MEDS: OMEGA-3 ACID ETHYL ESTERS (FATTY-ACIDS) 1 GM CAPSULE (FP) PO SCH ×3 (05:48→21:19)
[2016-09-27] MEDS: INSULIN SLIDING SCALE (NOVOLOG) 1 VIAL SQ SCH ×4 (06:10→21:24)
[2016-09-27] MEDS: LEVOTHYROXINE NA 75 MCG TABLET (FP) PO SCH (06:10)
[2016-09-27 07:01] LABS: BASOPHIL 0.4 % (0-2.0); EOSINOPHIL 1.1 % (0-4.5); MCH 24.7 pg (25.7-33.7); MCHC 32.4 g/dl (32.0-36.0); MEAN CELL VOLUME 76.4 fl (80-96); MEAN PLT VOLUME 9.7 fl (7.5-11.1); NEUTROPHILS 82.5 % (42.8-82.8); PLATELET COUNT 209 K/MM3 (134-434); RDW 16.7 % (11.6-15.6); WHITE BLOOD COUNT 5.8 K/mm3 (4.0-10.0)
[2016-09-27 07:12] LABS: PROTHROMBIN TIME (PATIENT) 48.9 SEC (9.98-11.88)
[2016-09-27 07:26] LABS: ALBUMIN 2.6 g/dl (3.4-5.0); BILIRUBIN,TOTAL 0.6 mg/dL (0.2-1.0); COCKROFT - GAULT 156.332; TOT PROT 6.5 g/dl (6.4-8.2)
[2016-09-27 08:04] LABS: INR 4.31 (0.82-1.09)
--- NOTE | 2016-09-27 10:26 | PN ---
Progress Note (short form) - Note Progress Note: PULMONARY BLOODY DRAINAGE FROM CHEST TUBE CONTINUES VSS/AFEBRILE/MORBID OBESITY PALE ANICTERIC/LEFT PORT IN PLACE DIMINISHE B/L BREATH SOUNDS/LEFT CHEST TUBE S1S2 OBESE LYMPHEDEMA LOWER EXT LABS/MEDS/NOTES/IMAGING/REVIEWED INR 4.04 A/P chemotherapy has begun metastatic adenocarcinoma of mullerian origin Left malignant effusion/drainage via tube Atrial Fibrillation on chronic a/c CHF HTN DM Morbid Obesity - monitor ct output - rate control - O2 as needed - DVT prophylaxis - pain control Amy SULLIVAN MD
[2016-09-27] MEDS ORDERED: PT OWN MED DRAWER 7, Y5N ONE ×2 (11:01→21:08)
[2016-09-27] MEDS: SPIRONOLACTONE 25 MG TABLET (FP) PO SCH (11:05)
[2016-09-27] MEDS: FERROUS SO4 325 MG TABLET (FP) PO SCH (11:06)
[2016-09-27] MEDS: NYSTATIN POWDER 100,000 UNITS/GM - 15 GM TOPICAL POWDER TP SCH ×2 (11:07→21:21)
[2016-09-27] MEDS: ACLIDINIUM BROMIDE 400 MCG/INH AERO.POWD IH SCH ×2 (11:07→21:21)
[2016-09-27] MEDS ORDERED: INSULIN (NOVOLOG) ASPART 100 UNITS/ML 10ML VIAL ONE ×2 (11:37→21:07)
--- NOTE | 2016-09-27 12:28 | PN ---
Progress Note (short form) - Note Progress Note: Patient seen and examined Some shortness of breath.l Beginning to ambulate in luc[place] with chest tube and with oxygen. Some queasiness. No chest pains. Some sputum production . Last Vital Signs Temp Pulse Resp BP Pulse Ox 97.2 F L 83 20 111/59 99 09/27/16 05:16 09/27/16 05:16 09/27/16 05:16 09/27/16 05:16 09/26/16 20:54 HEENT: FRANSICO, EOM Intact Oropharynx: No thrush, No mucositis Cor: atrial fib Lungs: diminished breath sounds LLL Chest tube with serosanguineous drainage Abd: soft,obese Ext:LE edema Skin: No rashes, Integument intact CBC, BMP 09/27/16 06:00 09/27/16 06:00 INR, PTT INR 4.31 (0.82-1.09) H* 09/27/16 06:00 Current Medications Generic Name Dose Route Start Last Admin Trade Name Freq PRN Reason Stop Dose Admin Aclidinium [place] 1 puff 09/20/16 22:00 09/27/16 11:07 Tudorza - IH 1 puff BID VIRGILIO Administration Atorvastatin Calcium 20 mg 09/20/16 22:00 09/26/16 21:02 Lipitor - PO 20 mg HS VIRGILIO Administration Diltiazem HCl 300 mg 09/21/16 10:00 09/27/16 11:06 Cardizem Cd - PO 300 mg DAILY VIRGILIO Administration Ferrous Sulfate 325 mg 09/21/16 10:00 09/27/16 11:06 Feosol - PO 325 mg DAILY VIRGILIO Administration Guaifenesin 5 ml 09/20/16 11:41 09/23/16 10:20 Diabetic Tussin Dm - PO 5 ml Q6H PRN Administration COUGH IV Flush 10 ml 09/23/16 18:50 09/24/16 06:19 Neeta-Cath Flush IVPUSH 10 ml PRN PRN Administration FLUSH Insulin Aspart 1 vial 09/20/16 16:30 09/27/16 11:13 Novolog Vial Sliding Scale - SQ 2 unit ACHS VIRGILIO Administration Protocol Levothyroxine Sodium 75 mcg 09/21/16 07:00 09/27/16 06:10 Synthroid - PO 75 mcg DAILY@0700 VIRGILIO Administration Montelukast Sodium 10 mg 09/20/16 22:00 09/26/16 21:03 Singulair - PO 10 mg HS VIRGILIO Administration Nystatin 1 applic 09/21/16 02:45 09/27/16 11:07 Nystop Powder - TP 1 applic BID VIRGILIO Administration Hkhud-9-Hcuv Ethyl Esters 1 gm 09/20/16 14:00 09/27/16 05:48 Lovaza - PO 1 gm TID VIRGILIO Administration Ondansetron HCl 8 mg 09/25/16 19:20 09/26/16 09:30 Zofran Injection IVPB 8 mg Q12H PRN Administration NAUSEA Senna 1 tab 09/20/16 11:41 09/24/16 10:31 Senna - PO 1 tab DAILY PRN Administration Spironolactone 50 mg 09/21/16 10:00 09/27/16 11:05 Aldactone - PO 50 mg DAILY VIRGILIO Administration Warfarin Sodium 4 mg 09/26/16 18:00 09/26/16 17:43 Coumadin - PO 4 mg DAILY@1800 VIRGILIO Administration Impression: S/P left VATS with pleurex for Malignant effusion of Mullerian origin S/P-- carboplatinum/ taxol -- to be daministered weekly Cycle 1 day 5 s/p chemotherpay A/C Supratherapeutic INR Atrial fib Plan: Chest tube management per pulmonary Coumadin titration for A.F. Can have pleurex drainage at home 1-2 x per week pending response to therapy and rate of re-accumulation of malignant pleural fluid. P.T Weekly chemotherapy with taxol/carboplatinum.
--- NOTE | 2016-09-27 12:32 | PN ---
Teaching Attending Note Name of Resident: Natasha Hodge ATTENDING PHYSICIAN STATEMENT I saw and evaluated the patient. I reviewed the resident's note and discussed the case with the resident. I agree with the resident's findings and plan as documented. SUBJECTIVE: Patinet having intermittent nausea. OBJECTIVE: Vital Signs Period Temp Pulse Resp BP Sys/Dinero Pulse Ox Last 24 Hr 97.2 F-97.8 F 82-87 20-20 108-134/49-69 99 HEART: Irregularly irregular LUNGS: Clear with decreased BS at left base ABDOMEN: Obese, soft, non-tender, non-distended, normal BS EXTREMITIES: Lymphedema ASSESSMENT AND PLAN: This is a 61-year-old woman with a history of HTN, atrial fib, hypothyroidism, COPD, type 2 DM and morbid obesity who presented to the ER for dyspnea on exertion. 1. 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 Permanent atrial fibrillation - Continue Cardizem CD, Coumadin 3. Hypomagnesemia - Improved 4. Morbid obesity with BMI 61.5 5. Hypothyroidism - Continue Synthroid 6. Type 2 DM - Continue Novolog sliding scale 7. HTN - Continue Cardizem, Aldactone 8. Hyperlipidemia - Continue Lipitor, Lovaza 9. COPD - Continue Tudorza, Singulair, Albuterol as needed 10. Chronic systolic heart failure - Continue Aldactone - Cozaar held secondary to hypotension
--- NOTE | 2016-09-27 15:59 | PN ---
Physical Exam: SUBJECTIVE: Patient seen and examined by me at bedside. Still continues to have nausea and loss of appetite. Patient is aware that these are possible side effects from the chemotherapy. However, she reported her nausea is less intense than yesterday and was able to sleep better. Otherwise, patient denies fever, chills, shortness of breath, chest pain, palpitations, abdominal pain, diarrhea, constipation, headache, dizziness. OBJECTIVE: Vital Signs Period Temp Pulse Resp BP Sys/Dinero Pulse Ox Last 24 Hr 97.2 F-97.8 F 82-86 20-20 108-134/49-64 99 GENERAL: The patient is awake, alert, and fully oriented, in no acute distress. LUNGS: Decreased breath sounds throughout left lung bases with no crackles or wheezes. Left chest tube draining. HEART: Irregularly irregular, normal S1 and S2 without murmur, rub or gallop. Left chemoport placement bandage c/d/i ABDOMEN: Soft, Obese, nontender, nondistended, normoactive bowel sounds. EXTREMITIES: B/L lower extremity chronic venous changes with lymphedema and scaly dry skin Laboratory Results - last 24 hr 09/26/16 09/26/16 09/27/16 17:01 20:58 05:45 WBC RBC Hgb Hct MCV MCHC RDW Plt Count MPV Neutrophils % Lymphocytes % Monocytes % Eosinophils % Basophils % INR Sodium Potassium Chloride Carbon Dioxide Anion Gap BUN Creatinine Creat Clearance w eGFR POC Glucometer 221 261 252 Random Glucose Calcium Total Bilirubin AST ALT Alkaline Phosphatase Total Protein Albumin Stool Occult Blood 09/27/16 09/27/16 09/27/16 06:00 06:00 06:00 WBC 5.8 RBC 5.38 H Hgb 13.3 D Hct 41.1 MCV 76.4 L MCHC 32.4 RDW 16.7 H Plt Count 209 MPV 9.7 Neutrophils % 82.5 Lymphocytes % 13.1 D Monocytes % 2.9 L Eosinophils % 1.1 D Basophils % 0.4 INR 4.31 H* Sodium 131 L Potassium 5.0 Chloride 94 L Carbon Dioxide 27 Anion Gap 10 BUN 17 D Creatinine 1.0 D Creat Clearance w eGFR 56.37 POC Glucometer Random Glucose 258 H Calcium 9.0 Total Bilirubin 0.6 D AST 36 ALT 23 D Alkaline Phosphatase 120 H Total Protein 6.5 Albumin 2.6 L D Stool Occult Blood 09/27/16 09/27/16 11:11 12:40 WBC RBC Hgb Hct MCV MCHC RDW Plt Count MPV Neutrophils % Lymphocytes % Monocytes % Eosinophils % Basophils % INR Sodium Potassium Chloride Carbon Dioxide Anion Gap BUN Creatinine Creat Clearance w eGFR POC Glucometer 213 Random Glucose Calcium Total Bilirubin AST ALT Alkaline Phosphatase Total Protein Albumin Stool Occult Blood Negative Active Medications Generic Name Dose Route Start Last Admin Trade Name Freq PRN Reason Stop Dose Admin Aclidinium [place] 1 puff 09/20/16 22:00 09/27/16 11:07 Tudorza - IH 1 puff BID VIRGILIO Administration Atorvastatin Calcium 20 mg 09/20/16 22:00 09/26/16 21:02 Lipitor - PO 20 mg HS VIRGILIO Administration Diltiazem HCl 300 mg 09/21/16 10:00 09/27/16 11:06 Cardizem Cd - PO 300 mg DAILY VIRGILIO Administration Ferrous Sulfate 325 mg 09/21/16 10:00 09/27/16 11:06 Feosol - PO 325 mg DAILY VIRGILIO Administration Guaifenesin 5 ml 09/20/16 11:41 09/23/16 10:20 Diabetic Tussin Dm - PO 5 ml Q6H PRN Administration COUGH IV Flush 10 ml 09/23/16 18:50 09/24/16 06:19 Neeta-Cath Flush IVPUSH 10 ml PRN PRN Administration FLUSH Insulin Aspart 1 vial 09/20/16 16:30 09/27/16 11:13 Novolog Vial Sliding Scale - SQ 2 unit ACHS VIRGILIO Administration Protocol Levothyroxine Sodium 75 mcg 09/21/16 07:00 09/27/16 06:10 Synthroid - PO 75 mcg DAILY@0700 VIRGILIO Administration Montelukast Sodium 10 mg 09/20/16 22:00 09/26/16 21:03 Singulair - PO 10 mg HS VIRGILIO Administration Nystatin 1 applic 09/21/16 02:45 09/27/16 11:07 Nystop Powder - TP 1 applic BID VIRGILIO Administration [id number]-3-[id number] Ethyl Esters 1 gm 09/20/16 14:00 09/27/16 14:26 Lovaza - PO 1 gm TID VIRGILIO Administration Ondansetron HCl 8 mg 09/25/16 19:20 09/26/16 09:30 Zofran Injection IVPB 8 mg Q12H PRN Administration NAUSEA Senna 1 tab 09/20/16 11:41 09/24/16 10:31 Senna - PO 1 tab DAILY PRN Administration Spironolactone 50 mg 09/21/16 10:00 09/27/16 11:05 Aldactone - PO 50 mg DAILY VIRGILIO Administration Images: Chest X-ray (09/08/16): Moderate left pleural effusion with compressive atelectasis. Multiple lung nodules - lung metastasis. Chest CT w/ Contrast (09/08/16): Innumerable bilateral pulmonary nodules, moderate to large left pleural effusion, and mediastinal and hilar lymphadenopathy are highly suspicious for metastatic disease. 2.9 cm hypodense mass is seen in the left lobe of the liver. Thoracocentesis under U/S guide (09/09/16) Chest X-ray (09/09/16): Decreased Pleural Effusion. No Pneumothorax seen. CT Abdomen and pelvis (09/10/16): CT abd/pelvis shows multiple metastatic pulmonary nodules, moderate left pleural effusion, hypodense left hepatic lobe mass, possible hypodense right hepatic lobe mass, diverticulosis CHEST X-RAY (09/20/16): Left lower lobe consolidation and probable left pleural effusion. CHEST X-RAY (09/25/16): There is slightly better aeration of the left lung base ASSESSMENT/PLAN: Patient is a 61 year old female with PMHx of HTN, A.fib on Coumadin, DMII, CHF, COPD, GERD and hypothyroidism who presented for dyspnea and was found to have a large left pleural effusion with multiple nodules on chest x-ray. Patient admitted for further monitoring and management. Dyspnea Secondary to Malignant Pleural Effusions - Improving -S/P thoracentesis 09/09/16 and cytology was positive for malignant cells. Involvement by Adenocarcinoma, most consistent with Mullerian origin -S/P Left VATS/L pleurex 09/17/16 with 2L of serosanguinous fluid removed. Drained >500mls in last 24 hours. 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 Next session 09/30/16 -Oncology consult appreciated. -Vascular consult appreciated Nausea -Likely secondary to chemotherapy -Zofran 4mg given overnight -Will Switch to [place] Supratherapeutic INR -Today 4.31 -Coumadin held Apathetic/Loss of appetite -Possible depression -Likely due to new diagnosis of Ovarian cancer -Spoke to Clinical Psychologist. Dr. Trevino, who reports patient has major depression at a severe level with anxiety due to her newly diagnosis of ovarian cancer. Reports she is very receptive to psychological treatment. -Will continue inpatient treatment and will follow up with him in outpatient clinic once discharged Anticholinergic Syndrome- Resolved -Will continue to monitor Asthma/COPD- Chronic -No history of smoking -Continue with Albuterol PRN -Continue 02 PRN -Pulmonology consult appreciated Hypomagnesemia-resolved -Will continue to monitor Atrial Fibrillation -Rate controlled -Continue Diltiazem Cd 300mg daily Systolic CHF- Chronic -No acute exacerbation at the time -Aldactone 50mg daily resumed -Daily weight -Hold lasix for hypotension DMII -Controlled -BGM ACHS -Novolog sliding scale HTN -Borderline Hypotensive -Hold Losartan 50mg daily -Hold Lasix -Continue to monitor BP HLD -Continue Lipitor 20mg Hypothyroidism -Continue Levothyroxine 75mcg daily GERD -Continue Ranitidine 150mg BID Morbid Obesity -Bariatric referral as outpatient F/E/N -On no fluids -Electrolytes wnl -Diabetic diet Prophylaxis -Supratherapeutic INR. Coumadin held Disposition -s/p first Chemo session 09/24/16 with continuous nausea. Still has suprathereupetic INR and coumadin Held. Visit type - Emergency Visit Emergency Visit: Yes ED Registration Date: 09/08/16 Care time: The patient presented to the Emergency Department on the above date and was hospitalized for further evaluation of their emergent condition. - New Patient This patient is new to me today: No - Critical Care Critical Care patient: No
[2016-09-27] MEDS: ATORVASTATIN CA 20 MG TABLET (FP) PO SCH (21:19)
[2016-09-27] MEDS: MONTELUKAST NA 10 MG TABLET PO SCH (21:20)
--- NOTE | 2016-09-28 03:47 | PN ---
Progress Note, Physician Chief Complaint: Pt is A&Ox3; periods of PND. History of Present Illness: The patient is a 61 year old white female, with a significant past medical history of Hypertension (on Cardizem), AFIB, diabetes, diastolic CHF, COPD, morbid obesity, GERD and hypothyroidism, who presents to the emergency department with SOB for few days. Patient saw her PMD 2 days ago with the same complaint who was supposed to prescribe her breathing treatment pumps, but patient states that the pumps were never sent by her doctor which prompted her to present to the ED. Patient denies any new leg swelling. Patient reports orthopnea and states that she sleeps with 2 pillows. She notes that she is cold but denies any fever. She reports normal bowel movements. She denies any chest pain. She denies any hx of hernia. PSH - none PMD - Dr. Brambila - Current Medication List Current Medications: Active Medications Aclidinium [place] (Tudorza -) 1 puff IH BID [facility] Last Admin: 09/27/16 21:21 Dose: 1 puff Atorvastatin Calcium (Lipitor -) 20 mg PO [facility] Last Admin: 09/27/16 21:19 Dose: 20 mg Diltiazem HCl (Cardizem Cd -) 300 mg PO DAILY [facility] Last Admin: 09/27/16 11:06 Dose: 300 mg Ferrous Sulfate (Feosol -) 325 mg PO DAILY [facility] Last Admin: 09/27/16 11:06 Dose: 325 mg Guaifenesin (Diabetic Tussin Dm -) 5 ml PO Q6H PRN PRN Reason: COUGH Last Admin: 09/23/16 10:20 Dose: 5 ml IV Flush (Neeta-Cath Flush) 10 ml IVPUSH PRN PRN PRN Reason: FLUSH Last Admin: 09/24/16 06:19 Dose: 10 ml Insulin Aspart (Novolog Vial Sliding Scale -) 1 vial SQ ACHS VIRGILIO PRN Reason: Protocol Last Admin: 09/27/16 21:24 Dose: 4 unit Levothyroxine Sodium (Synthroid -) 75 mcg PO DAILY@0700 [facility] Last Admin: 09/27/16 06:10 Dose: 75 mcg Montelukast Sodium (Singulair -) 10 mg PO HS [facility] Last Admin: 09/27/16 21:20 Dose: 10 mg Nystatin (Nystop Powder -) 1 applic TP BID [facility] Last Admin: 09/27/16 21:21 Dose: 1 applic Wcclf-2-Omhc Ethyl Esters (Lovaza -) 1 gm PO TID [facility] Last Admin: 09/27/16 21:19 Dose: 1 gm Ondansetron HCl (Zofran Injection) 8 mg IVPB Q12H PRN PRN Reason: NAUSEA Last Admin: 09/26/16 09:30 Dose: 8 mg Senna (Senna -) 1 tab PO DAILY PRN Last Admin: 09/24/16 10:31 Dose: 1 tab Spironolactone (Aldactone -) 50 mg PO DAILY [facility] Last Admin: 09/27/16 11:05 Dose: 50 mg - Objective Vital Signs: Vital Signs Temperature 97.8 F 09/27/16 20:09 Pulse Rate 84 09/27/16 20:09 Respiratory Rate 20 09/27/16 21:00 Blood Pressure 128/60 09/27/16 20:09 O2 Sat by Pulse Oximetry (%) 97 09/27/16 21:00 Constitutional: Yes: Calm Eyes: Yes: WNL HENT: Yes: WNL Neck: Yes: WNL Cardiovascular: Yes: Pulse Irregular Respiratory: Yes: Diminished (j) Gastrointestinal: Yes: Abdomen, Obese ...Rectal Exam: Yes: Deferred Genitourinary: No: Anuria Breast(s): Yes: WNL Musculoskeletal: Yes: Muscle Weakness Extremities: Yes: Cool Edema: Yes Edema: LLE: 2+, RLE: 2+ Peripheral Pulses WNL: Yes Integumentary: Yes: Venous Stasis Changes Wound/Incision: Yes: Other Neurological: Yes: Alert, Oriented, Weakness Psychiatric: Yes: Other (depression) Labs: CBC, BMP 09/27/16 06:00 09/27/16 06:00 INR, PTT INR 4.31 (0.82-1.09) H* 09/27/16 06:00 Abnormal Lab Results 09/27/16 09/27/16 09/27/16 06:00 06:00 06:00 RBC 5.38 H MCV 76.4 L RDW 16.7 H Monocytes % 2.9 L INR 4.31 H* Sodium 131 L Chloride 94 L Random Glucose 258 H Alkaline Phosphatase 120 H Albumin 2.6 L D Problem List - Problems (1) A-fib Assessment/Plan: On diltiazem. Recommend repeat ECHO once pt is again able to lie on left side (unable to assess LVEF or valve status on initial ECHO due to poor acoustic windows) when chest tube has been removed. INR> 4-->3.65; hold warfarin, and restart to keep INR 2-3. Code(s): I48.91 - UNSPECIFIED ATRIAL FIBRILLATION (2) Acute dyspnea Code(s): R06.00 - DYSPNEA, UNSPECIFIED (3) Acute renal insufficiency Code(s): N28.9 - DISORDER OF KIDNEY AND URETER, UNSPECIFIED (4) CHF exacerbation Assessment/Plan: On diltiazem and Aldactone (may need to discontinue the latter if hyperkalemia becomes an issue; level today of K+ is 5.0). f/u repeat ECHO for LVEF once pt can lie on left side for better views. s/p pleur-x cath; recommended cap and drain periodically per thermostat repairer. Code(s): I50.9 - HEART FAILURE, UNSPECIFIED (5) HTN (hypertension) Assessment/Plan: On diltiazem and Aldactone; BP controlled. May need to discontinue aldactone if K+ continues to increase (level today is 5.0). Code(s): I10 - ESSENTIAL (PRIMARY) HYPERTENSION (6) Morbidly obese Code(s): E66.01 - MORBID (SEVERE) OBESITY DUE TO EXCESS CALORIES (7) Pleural effusion Assessment/Plan: s/p pleur-x cath and drainage; reaccumulating fluid. Code(s): J90 - PLEURAL EFFUSION, NOT ELSEWHERE CLASSIFIED (8) Supratherapeutic INR Code(s): R79.1 - ABNORMAL COAGULATION PROFILE (9) Cancer Assessment/Plan: adenocarcinoma with metastases. Receiving chemotheapy (Taxol and Carboplatin). Code(s): C80.1 - MALIGNANT (PRIMARY) NEOPLASM, UNSPECIFIED (10) Anxiety and depression Assessment/Plan: f/u carefully; pt is still adjusting to knowledge of having cancer. Code(s): F41.9 - ANXIETY DISORDER, UNSPECIFIED F32.9 - MAJOR DEPRESSIVE DISORDER, SINGLE EPISODE, UNSPECIFIED (11) Diabetes Code(s): E11.9 - TYPE 2 DIABETES MELLITUS WITHOUT COMPLICATIONS
[2016-09-28] MEDS ORDERED: INSULIN (NOVOLOG) ASPART 100 UNITS/ML 10ML VIAL ONE ×2 (05:58→21:25)
[2016-09-28] MEDS: OMEGA-3 ACID ETHYL ESTERS (FATTY-ACIDS) 1 GM CAPSULE (FP) PO SCH ×3 (06:11→22:34)
[2016-09-28] MEDS: LEVOTHYROXINE NA 75 MCG TABLET (FP) PO SCH (06:11)
[2016-09-28] MEDS: INSULIN SLIDING SCALE (NOVOLOG) 1 VIAL SQ SCH ×4 (06:11→22:34)
[2016-09-28 08:58] LABS: PROTHROMBIN TIME (PATIENT) 47.4 SEC (9.98-11.88)
[2016-09-28 09:15] LABS: CALCIUM 9.2 mg/dL (8.5-10.1); COCKROFT - GAULT 193.4855; CREATININE 0.8 mg/dL (0.55-1.02)
[2016-09-28 09:25] LABS: INR 4.19 (0.82-1.09)
--- NOTE | 2016-09-28 09:40 | PN ---
Teaching Attending Note Name of Resident: Natasha Hodge ATTENDING PHYSICIAN STATEMENT I saw and evaluated the patient. I reviewed the resident's note and discussed the case with the resident. I agree with the resident's findings and plan as documented. SUBJECTIVE: Nausea is improving. Denies shortness of breath. OBJECTIVE: Vital Signs Period Temp Pulse Resp BP Sys/Dinero Pulse Ox Last 24 Hr 97.5 F-97.8 F 81-86 20-20 111-128/60-70 97 HEART: Irregularly irregular LUNGS: Clear with decreased BS at left base ABDOMEN: Obese, soft, non-tender, non-distended, normal BS EXTREMITIES: Lymphedema ASSESSMENT AND PLAN: This is a 61-year-old woman with a history of HTN, atrial fib, hypothyroidism, COPD, type 2 DM and morbid obesity who presented to the ER for dyspnea on exertion. 1. Metastatic Mullerian adenocarcinoma with left pleural effusion - s/p thoracentesis 09/09 - s/p liver biopsy 09/12 - s/p VATS placement of Pleur-x catheter 09/17 - s/p Portacath insertion 09/20 - Treated with Carboplatin and Taxol 09/22 - Pleur-x drainage 798 cc in last 24 hrs - Zofran as needed for nausea 2. Permanent atrial fibrillation - Continue Cardizem CD, Coumadin (hold secondary to INR 4.19) 3. Hypomagnesemia - Improved 4. Morbid obesity with BMI 60.9 5. Hypothyroidism - Continue Synthroid 6. Type 2 DM - Continue Novolog sliding scale 7. HTN - Continue Cardizem, Aldactone 8. Hyperlipidemia - Continue Lipitor, Lovaza 9. COPD - Continue Tudorza, Singulair, Albuterol as needed 10. Chronic systolic heart failure - Continue Aldactone - Cozaar held secondary to hypotension
--- NOTE | 2016-09-28 09:52 | PN ---
Progress Note, Physician History of Present Illness: seen and examined today in nad. sitting in chair. states she is feeling slightly better. no overnight events. no new complaints. - Current Medication List Current Medications: Active Medications Aclidinium [place] (Tudorza -) 1 puff IH BID [facility] Last Admin: 09/27/16 21:21 Dose: 1 puff Atorvastatin Calcium (Lipitor -) 20 mg PO HS [facility] Last Admin: 09/27/16 21:19 Dose: 20 mg Diltiazem HCl (Cardizem Cd -) 300 mg PO DAILY [facility] Last Admin: 09/27/16 11:06 Dose: 300 mg Ferrous Sulfate (Feosol -) 325 mg PO DAILY [facility] Last Admin: 09/27/16 11:06 Dose: 325 mg Guaifenesin (Diabetic Tussin Dm -) 5 ml PO Q6H PRN PRN Reason: COUGH Last Admin: 09/23/16 10:20 Dose: 5 ml IV Flush (Neeta-Cath Flush) 10 ml IVPUSH PRN PRN PRN Reason: FLUSH Last Admin: 09/24/16 06:19 Dose: 10 ml Insulin Aspart (Novolog Vial Sliding Scale -) 1 vial SQ ACHS VIRGILIO PRN Reason: Protocol Last Admin: 09/28/16 06:11 Dose: 2 unit Levothyroxine Sodium (Synthroid -) 75 mcg PO DAILY@0700 [facility] Last Admin: 09/28/16 06:11 Dose: 75 mcg Montelukast Sodium (Singulair -) 10 mg PO HS [facility] Last Admin: 09/27/16 21:20 Dose: 10 mg Nystatin (Nystop Powder -) 1 applic TP BID [facility] Last Admin: 09/27/16 21:21 Dose: 1 applic Izvoj-3-Ivck Ethyl Esters (Lovaza -) 1 gm PO TID [facility] Last Admin: 09/28/16 06:11 Dose: 1 gm Ondansetron HCl (Zofran Injection) 8 mg IVPB Q12H PRN PRN Reason: NAUSEA Last Admin: 09/26/16 09:30 Dose: 8 mg Senna (Senna -) 1 tab PO DAILY PRN Last Admin: 09/24/16 10:31 Dose: 1 tab Spironolactone (Aldactone -) 50 mg PO DAILY [facility] Last Admin: 09/27/16 11:05 Dose: 50 mg - Objective Vital Signs: Vital Signs Temperature 97.8 F 09/28/16 05:44 Pulse Rate 81 09/28/16 05:44 Respiratory Rate 20 09/28/16 05:44 Blood Pressure 111/70 09/28/16 05:44 O2 Sat by Pulse Oximetry (%) 97 09/27/16 21:00 Constitutional: Yes: No Distress, Calm, Obese Eyes: Yes: Conjunctiva Clear, EOM Intact, PERRL HENT: Yes: Atraumatic, Normocephalic Neck: Yes: Supple, Trachea Midline Cardiovascular: Yes: Regular Rate and Rhythm, S1, S2. No: Bradycardia, Tachycardia, Pulse Irregular, Bruit, JVD, Gallop, Murmur, Rub, S3, S4, Varicosities Respiratory: Yes: Regular, Diminished, Other (chest tube in place). No: Rales, Rhonchi, Wheezes Gastrointestinal: Yes: Normal Bowel Sounds, Soft. No: Distention, Tenderness Extremities: Yes: Other (b/l LE Lymphedema) Edema: Yes (Lymphedema) Edema: LLE: 2+, RLE: 2+ Peripheral Pulses WNL: Yes Peripheral Pulses: Left Doralis Pedis: 2+, Right Dorsalis Pedis: 2+ Integumentary: Yes: WNL Neurological: Yes: Alert, Oriented Psychiatric: Yes: Alert, Oriented Labs: CBC, BMP 09/27/16 06:00 09/28/16 08:00 INR, PTT INR 4.19 (0.82-1.09) H* 09/28/16 08:00 - ....Imaging Chest X-ray: Report Reviewed, Image Reviewed EKG: Report Reviewed, Image Reviewed Other: Report Reviewed, Image Reviewed Assessment/Plan Atrial fibrillation-HR controlled -Cont cardizem CD 300mg daily -holding warfarin for supratherapeutic INR, planned to resume when INR trends down to therapeutic range -plan is to repeat TTE when chest tube removed as poor image quality on previous study CHF -plan for repeat echo as above -on diltiazem and spironolactone (monitor K levels, currently adequate) HTN-adequately controlled -cont current medical regimen Pleural effusion-malignant -s/p chest tube -as per pulm, CT surgery
[2016-09-28] MEDS: SPIRONOLACTONE 25 MG TABLET (FP) PO SCH (10:37)
[2016-09-28] MEDS: FERROUS SO4 325 MG TABLET (FP) PO SCH (10:37)
[2016-09-28] MEDS: NYSTATIN POWDER 100,000 UNITS/GM - 15 GM TOPICAL POWDER TP SCH ×2 (10:38→22:37)
[2016-09-28] MEDS: ACLIDINIUM BROMIDE 400 MCG/INH AERO.POWD IH SCH ×2 (10:39→22:37)
--- NOTE | 2016-09-28 11:18 | PN ---
Physical Exam: SUBJECTIVE: Patient seen and examined by me at bedside. No overnight events noted. Patient reports eating some breakfast today without nausea, which is improvement from the previous days. She still complains of a persistent cough and feels that she might need another nebulizer treatment. She denies any chest pain, palpitations, shortness of breath, fever, chills, vomiting, headaches, dizziness. OBJECTIVE: Vital Signs Period Temp Pulse Resp BP Sys/Dinero Pulse Ox Last 24 Hr 97.5 F-97.8 F 81-86 20-20 111-128/60-70 97 GENERAL: The patient is awake, alert, and fully oriented, in no acute distress. LUNGS: Decreased breath sounds throughout left lung bases with bilateral rhonchi 's no crackles or wheezes. Left chest tube draining. HEART: Irregularly irregular, normal S1 and S2 without murmur, rub or gallop. Left chemoport placement bandage c/d/i ABDOMEN: Soft, Obese, nontender, nondistended, normoactive bowel sounds. EXTREMITIES: B/L lower extremity chronic venous changes with lymphedema and scaly dry skin Laboratory Results - last 24 hr 09/27/16 09/27/16 09/27/16 11:11 12:40 17:14 INR Sodium Potassium Chloride Carbon Dioxide Anion Gap BUN Creatinine POC Glucometer 213 286 Random Glucose Calcium Stool Occult Blood Negative 09/27/16 09/28/16 09/28/16 21:24 08:00 08:00 INR 4.19 H* Sodium 130 L Potassium 4.9 Chloride 93 L Carbon Dioxide 25 Anion Gap 12 BUN 15 Creatinine 0.8 POC Glucometer 277 Random Glucose 237 H Calcium 9.2 Stool Occult Blood Active Medications Generic Name Dose Route Start Last Admin Trade Name Freq PRN Reason Stop Dose Admin Aclidinium [place] 1 puff 09/20/16 22:00 09/28/16 10:39 Tudorza - IH 1 puff BID VIRGILIO Administration Albuterol Sulfate 1 amp 09/28/16 10:51 Ventolin 0.083% Nebulizer Soln - NEB Q6H PRN SHORT OF BREATH/WHEEZING Atorvastatin Calcium 20 mg 09/20/16 22:00 09/27/16 21:19 Lipitor - PO 20 mg HS VIRGILIO Administration Diltiazem HCl 300 mg 09/21/16 10:00 09/28/16 10:37 Cardizem Cd - PO 300 mg DAILY VIRGILIO Administration Ferrous Sulfate 325 mg 09/21/16 10:00 09/28/16 10:37 Feosol - PO 325 mg DAILY VIRGILIO Administration Guaifenesin 5 ml 09/20/16 11:41 09/23/16 10:20 Diabetic Tussin Dm - PO 5 ml Q6H PRN Administration COUGH IV Flush 10 ml 09/23/16 18:50 09/24/16 06:19 Neeta-Cath Flush IVPUSH 10 ml PRN PRN Administration FLUSH Insulin Aspart 1 vial 09/20/16 16:30 09/28/16 06:11 Novolog Vial Sliding Scale - SQ 2 unit ACHS VIRGILIO Administration Protocol Levothyroxine Sodium 75 mcg 09/21/16 07:00 09/28/16 06:11 Synthroid - PO 75 mcg DAILY@0700 VIRGILIO Administration Montelukast Sodium 10 mg 09/20/16 22:00 09/27/16 21:20 Singulair - PO 10 mg HS VIRGILIO Administration Nystatin 1 applic 09/21/16 02:45 09/28/16 10:38 Nystop Powder - TP 1 applic BID VIRGILIO Administration Cuqta-4-Aimz Ethyl Esters 1 gm 09/20/16 14:00 09/28/16 06:11 Lovaza - PO 1 gm TID VIRGILIO Administration Ondansetron HCl 8 mg 09/25/16 19:20 09/26/16 09:30 Zofran Injection IVPB 8 mg Q12H PRN Administration NAUSEA Senna 1 tab 09/20/16 11:41 09/24/16 10:31 Senna - PO 1 tab DAILY PRN Administration Spironolactone 50 mg 09/21/16 10:00 09/28/16 10:37 Aldactone - PO 50 mg DAILY VIRGILIO Administration Images: Chest X-ray (09/08/16): Moderate left pleural effusion with compressive atelectasis. Multiple lung nodules - lung metastasis. Chest CT w/ Contrast (09/08/16): Innumerable bilateral pulmonary nodules, moderate to large left pleural effusion, and mediastinal and hilar lymphadenopathy are highly suspicious for metastatic disease. 2.9 cm hypodense mass is seen in the left lobe of the liver. Thoracocentesis under U/S guide (09/09/16) Chest X-ray (09/09/16): Decreased Pleural Effusion. No Pneumothorax seen. CT Abdomen and pelvis (09/10/16): CT abd/pelvis shows multiple metastatic pulmonary nodules, moderate left pleural effusion, hypodense left hepatic lobe mass, possible hypodense right hepatic lobe mass, diverticulosis CHEST X-RAY (09/20/16): Left lower lobe consolidation and probable left pleural effusion. CHEST X-RAY (09/25/16): There is slightly better aeration of the left lung base ASSESSMENT/PLAN: Patient is a 61 year old female with PMHx of HTN, A.fib on Coumadin, DMII, CHF, COPD, GERD and hypothyroidism who presented for dyspnea and was found to have a large left pleural effusion with multiple nodules on chest x-ray. Patient admitted for further monitoring and management. Dyspnea Secondary to Malignant Pleural Effusions - Improving -S/P thoracentesis 09/09/16 and cytology was positive for malignant cells. Involvement by Adenocarcinoma, most consistent with Mullerian origin -S/P Left VATS/L pleurex 09/17/16 with 2L of serosanguinous fluid removed. Drained >100 in last 12 hours. 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 Next session 09/30/16 -Oncology consult appreciated. -Vascular consult appreciated Nausea -Likely secondary to chemotherapy -Zofran 4mg given overnight Supratherapeutic INR -Today 4.1 -Coumadin held Apathetic/Loss of appetite -Possible depression -Likely due to new diagnosis of Ovarian cancer -Spoke to Clinical Psychologist. Dr. Trevino, who reports patient has major depression at a severe level with anxiety due to her newly diagnosis of ovarian cancer. Reports she is very receptive to psychological treatment. -Will continue inpatient treatment and will follow up with him in outpatient clinic once discharged Anticholinergic Syndrome- Resolved -Will continue to monitor Asthma/COPD- Chronic -No history of smoking -Continue with Albuterol PRN -Continue 02 PRN -Pulmonology consult appreciated Hypomagnesemia-resolved -Will continue to monitor Atrial Fibrillation -Rate controlled -Continue Diltiazem Cd 300mg daily Systolic CHF- Chronic -No acute exacerbation at the time -Aldactone 50mg daily resumed -Daily weight -Hold lasix for hypotension DMII -Controlled -BGM ACHS -Novolog sliding scale HTN -Borderline Hypotensive -Hold Losartan 50mg daily -Hold Lasix -Continue to monitor BP HLD -Continue Lipitor 20mg Hypothyroidism -Continue Levothyroxine 75mcg daily GERD -Continue Ranitidine 150mg BID Morbid Obesity -Bariatric referral as outpatient F/E/N -On no fluids -Electrolytes wnl -Diabetic diet Prophylaxis -Supratherapeutic INR. Coumadin held Disposition -s/p first Chemo session 09/24/16 with continuous nausea. Still has suprathereupetic INR and coumadin Held. Visit type - Emergency Visit Emergency Visit: Yes ED Registration Date: 09/08/16 Care time: The patient presented to the Emergency Department on the above date and was hospitalized for further evaluation of their emergent condition. - New Patient This patient is new to me today: No - Critical Care Critical Care patient: No
[2016-09-28] MEDS ORDERED: ONDANSETRON 8 MG TABLET (FP) PO PRN (11:47)
--- NOTE | 2016-09-28 11:47 | PN ---
Progress Note (short form) - Note Progress Note: PULMONARY Denies shortness of breath. Still nauseous. Last Vital Signs Temp Pulse Resp BP Pulse Ox 97.8 F 81 20 111/70 97 09/28/16 05:44 09/28/16 05:44 09/28/16 05:44 09/28/16 05:44 09/27/16 21:00 Gen: NAD in chair Heart: RRR Lung: decreased breath sounds left bases Abd: soft, nontender Ext: + edema Chest tube: serosanguinous drainage, no air leak CBC, BMP 09/27/16 06:00 09/28/16 08:00 Active Medications Aclidinium [place] (Tudorza -) 1 puff IH BID [facility] Last Admin: 09/28/16 10:39 Dose: 1 puff Albuterol Sulfate (Ventolin 0.083% Nebulizer Soln -) 1 amp NEB Q6H PRN PRN Reason: SHORT OF BREATH/WHEEZING Atorvastatin Calcium (Lipitor -) 20 mg PO HS [facility] Last Admin: 09/27/16 21:19 Dose: 20 mg Diltiazem HCl (Cardizem Cd -) 300 mg PO DAILY [facility] Last Admin: 09/28/16 10:37 Dose: 300 mg Ferrous Sulfate (Feosol -) 325 mg PO DAILY [facility] Last Admin: 09/28/16 10:37 Dose: 325 mg Guaifenesin (Diabetic Tussin Dm -) 5 ml PO Q6H PRN PRN Reason: COUGH Last Admin: 09/23/16 10:20 Dose: 5 ml IV Flush (Neeta-Cath Flush) 10 ml IVPUSH PRN PRN PRN Reason: FLUSH Last Admin: 09/24/16 06:19 Dose: 10 ml Insulin Aspart (Novolog Vial Sliding Scale -) 1 vial SQ ACHS VIRGILIO PRN Reason: Protocol Last Admin: 09/28/16 06:11 Dose: 2 unit Levothyroxine Sodium (Synthroid -) 75 mcg PO DAILY@0700 [facility] Last Admin: 09/28/16 06:11 Dose: 75 mcg Montelukast Sodium (Singulair -) 10 mg PO HS [facility] Last Admin: 09/27/16 21:20 Dose: 10 mg Nystatin (Nystop Powder -) 1 applic TP BID [facility] Last Admin: 09/28/16 10:38 Dose: 1 applic Ugfaw-9-Arqk Ethyl Esters (Lovaza -) 1 gm PO TID [facility] Last Admin: 09/28/16 06:11 Dose: 1 gm Ondansetron HCl (Zofran Injection) 8 mg IVPB Q12H PRN PRN Reason: NAUSEA Last Admin: 09/26/16 09:30 Dose: 8 mg Senna (Senna -) 1 tab PO DAILY PRN Last Admin: 09/24/16 10:31 Dose: 1 tab Spironolactone (Aldactone -) 50 mg PO DAILY [facility] Last Admin: 09/28/16 10:37 Dose: 50 mg A/P Metastatic Adenocarcinoma of Mullerian origin Malignant Left Pleural Effusion s/p L VATS/pleur-x placement Bilateral Lung Nodules likely metastatic disease Atrial Fibrillation CHF HTN DM Morbid Obesity - antiemetics - can cap pleur-x catheter and drain 1-2x/week depending on symptoms - rate controlled - continue anticoagulation - O2 as needed - DVT prophylaxis - d/c planning
[2016-09-28] MEDS: ALBUTEROL SO4 0.083% IH SOL 2.5 MG/3 ML VIAL.NEB. NEB PRN (13:47)
--- NOTE | 2016-09-28 16:05 | PN ---
Progress Note (short form) - Note Progress Note: Patient seen and examined No significant SOB or dyspnea Chest tube drainage -370 cc /24 hr. Due for chemotherapy 09/30. Can cap pleurex per pulmonary Last Vital Signs Temp Pulse Resp BP Pulse Ox 97.7 F 73 20 141/63 98 09/28/16 10:00 09/28/16 13:46 09/28/16 10:00 09/28/16 10:00 09/28/16 13:46 HEENT: FRANSICO, EOM Intact Oropharynx: No thrush, No mucositis Cor:irreg Lungs: decreased breath sounds LLL Abd: obese Ext:edema Skin: No rashes, Integument intact CBC, BMP 09/27/16 06:00 09/28/16 08:00 Current Medications Generic Name Dose Route Start Last Admin Trade Name Freq PRN Reason Stop Dose Admin Aclidinium [place] 1 puff 09/20/16 22:00 09/28/16 10:39 Tudorza - IH 1 puff BID VIRGILIO Administration Albuterol Sulfate 1 amp 09/28/16 10:51 09/28/16 13:47 Ventolin 0.083% Nebulizer Soln - NEB 1 amp Q6H PRN Administration SHORT OF BREATH/WHEEZING Atorvastatin Calcium 20 mg 09/20/16 22:00 09/27/16 21:19 Lipitor - PO 20 mg HS VIRGILIO Administration Diltiazem HCl 300 mg 09/21/16 10:00 09/28/16 10:37 Cardizem Cd - PO 300 mg DAILY VIRGILIO Administration Ferrous Sulfate 325 mg 09/21/16 10:00 09/28/16 10:37 Feosol - PO 325 mg DAILY VIRGILIO Administration Guaifenesin 5 ml 09/20/16 11:41 09/23/16 10:20 Diabetic Tussin Dm - PO 5 ml Q6H PRN Administration COUGH IV Flush 10 ml 09/23/16 18:50 09/24/16 06:19 Neeta-Cath Flush IVPUSH 10 ml PRN PRN Administration FLUSH Insulin Aspart 1 vial 09/20/16 16:30 09/28/16 12:03 Novolog Vial Sliding Scale - SQ 4 unit ACHS VIRGILIO Administration Protocol Levothyroxine Sodium 75 mcg 09/21/16 07:00 09/28/16 06:11 Synthroid - PO 75 mcg DAILY@0700 VIRGILIO Administration Montelukast Sodium 10 mg 09/20/16 22:00 09/27/16 21:20 Singulair - PO 10 mg HS VIRGILIO Administration Nystatin 1 applic 09/21/16 02:45 09/28/16 10:38 Nystop Powder - TP 1 applic BID VIRGILIO Administration Mxrbi-2-Zgyu Ethyl Esters 1 gm 09/20/16 14:00 09/28/16 14:35 Lovaza - PO 1 gm TID VIRGILIO Administration Ondansetron HCl 8 mg 09/28/16 11:47 Zofran - PO Q8H PRN NAUSEA Senna 1 tab 09/20/16 11:41 09/24/16 10:31 Senna - PO 1 tab DAILY PRN Administration Spironolactone 50 mg 09/21/16 10:00 09/28/16 10:37 Aldactone - PO 50 mg DAILY VIRGILIO Administration Impression: Malignant tumor of Mullerian origin Malignant left pleural effusion Morbid obesity S/P chemotherapy with taxol/carbo --c1d6 Due for cycle 2 09/30. Can cap tube
[2016-09-28] MEDS ORDERED: PT OWN MED DRAWER 7, Y5N ONE (21:26)
[2016-09-28] MEDS: MONTELUKAST NA 10 MG TABLET PO SCH (22:34)
[2016-09-28] MEDS: ATORVASTATIN CA 20 MG TABLET (FP) PO SCH (22:34)
--- NOTE | 2016-09-29 01:51 | HOSP ---
Subjective - Review of Symptoms Events since last encounter: Patient is a 61 year old female with PMHx of HTN, A.fib on Coumadin, DMII, CHF, COPD, GERD and hypothyroidism who presented for dyspnea and was found to have a large left pleural effusion with multiple nodules on chest x-ray. S/p L VATS/ pleur-x placement. Called to evaluate patient due to no drainage from chest tube. General: No: Chills, Night Sweats HEENT: No: Head Aches, Visual Changes Pulmonary: No: Dyspnea, Cough, Pleuritic Chest Pain Cardiovascular: No: Chest Pain, Palpitations Gastrointestinal: No: Nausea, Vomiting, Abdominal Pain Musculoskeletal: Yes: No Symptoms Neurological: No: Weakness, Numbness Physical Examination Vital Signs: Vital Signs Temperature 98 F 09/28/16 22:00 Pulse Rate 80 09/28/16 22:00 Respiratory Rate 20 09/28/16 22:00 Blood Pressure 111/62 09/28/16 22:00 O2 Sat by Pulse Oximetry (%) 99 09/28/16 21:00 Constitutional: Yes: No Distress, Calm, Obese Cardiovascular: Yes: Pulse Irregular, S1, S2 Respiratory: Yes: Diminished. No: Accessory Muscle Use, Cough Gastrointestinal: Yes: Normal Bowel Sounds, Soft, Abdomen, Obese Extremities: Yes: WNL Edema: No Peripheral Pulses: Left Radial: 2+, Right Radial: 2+, Left Doralis Pedis: 2+, Right Dorsalis Pedis: 2+ Wound/Incision: Yes: Clean/Dry, Other (left chest tube with inplace non draining , with clotted blood in tubes,) Neurological: Yes: Alert, Oriented Labs: CBC, BMP 09/27/16 06:00 09/28/16 08:00 Hospitalist Encounter Assessment: Patient is a 61 year old female with PMHx of HTN, A.fib on Coumadin, DMII, CHF, COPD, GERD and hypothyroidism who presented for dyspnea and was found to have a large left pleural effusion with multiple nodules on chest x-ray. Metastatic Adenocarcinoma of Mullerian origin Malignant Left Pleural Effusion s/p L VATS/pleur-x placement -Chest tube has been draining properly -no leakage or drainage from tube -re eval w cxr Visit type - Emergency Visit Emergency Visit: Yes ED Registration Date: 09/08/16 Care time: The patient presented to the Emergency Department on the above date and was hospitalized for further evaluation of their emergent condition. - New Patient This patient is new to me today: Yes Date on this admission: 09/29/16 - Critical Care Critical Care patient: No
[2016-09-29] MEDS: OMEGA-3 ACID ETHYL ESTERS (FATTY-ACIDS) 1 GM CAPSULE (FP) PO SCH ×3 (06:19→22:58)
[2016-09-29] MEDS: LEVOTHYROXINE NA 75 MCG TABLET (FP) PO SCH (06:19)
[2016-09-29] MEDS: INSULIN SLIDING SCALE (NOVOLOG) 1 VIAL SQ SCH ×4 (06:19→22:58)
[2016-09-29 08:41] LABS: INR 2.9 (0.82-1.09); PROTHROMBIN TIME (PATIENT) 32.6 SEC (9.98-11.88)
[2016-09-29 08:59] LABS: CALCIUM 8.8 mg/dL (8.5-10.1); COCKROFT - GAULT 193.1115; CREATININE 0.8 mg/dL (0.55-1.02)
[2016-09-29] MEDS ORDERED: PT OWN MED DRAWER 7, Y5N ONE ×2 (09:26→22:48)
[2016-09-29] MEDS: ALBUTEROL SO4 0.083% IH SOL 2.5 MG/3 ML VIAL.NEB. NEB PRN (10:38)
[2016-09-29] MEDS: SPIRONOLACTONE 25 MG TABLET (FP) PO SCH (10:42)
[2016-09-29] MEDS: FERROUS SO4 325 MG TABLET (FP) PO SCH (10:43)
[2016-09-29] MEDS: ACLIDINIUM BROMIDE 400 MCG/INH AERO.POWD IH SCH ×2 (10:44→22:58)
--- NOTE | 2016-09-29 11:48 | PN ---
Progress Note (short form) - Note Progress Note: PULMONARY Denies shortness of breath. Still nauseous. Last Vital Signs Temp Pulse Resp BP Pulse Ox 98.3 F 86 20 130/64 99 09/29/16 06:00 09/29/16 06:00 09/29/16 06:00 09/29/16 06:00 09/28/16 21:00 Gen: NAD in chair Heart: RRR Lung: decreased breath sounds left bases Abd: soft, nontender Ext: + edema Chest tube: serosanguinous drainage, no air leak CBC, BMP 09/27/16 06:00 09/29/16 06:00 Active Medications Aclidinium [place] (Tudorza -) 1 puff IH BID [facility] Last Admin: 09/28/16 22:37 Dose: 1 puff Albuterol Sulfate (Ventolin 0.083% Nebulizer Soln -) 1 amp NEB Q6H PRN PRN Reason: SHORT OF BREATH/WHEEZING Last Admin: 09/29/16 10:38 Dose: 1 amp Atorvastatin Calcium (Lipitor -) 20 mg PO [facility] Last Admin: 09/28/16 22:34 Dose: 20 mg Diltiazem HCl (Cardizem Cd -) 300 mg PO DAILY [facility] Last Admin: 09/28/16 10:37 Dose: 300 mg Ferrous Sulfate (Feosol -) 325 mg PO DAILY [facility] Last Admin: 09/28/16 10:37 Dose: 325 mg Guaifenesin (Diabetic Tussin Dm -) 5 ml PO Q6H PRN PRN Reason: COUGH Last Admin: 09/23/16 10:20 Dose: 5 ml IV Flush (Neeta-Cath Flush) 10 ml IVPUSH PRN PRN PRN Reason: FLUSH Last Admin: 09/24/16 06:19 Dose: 10 ml Insulin Aspart (Novolog Vial Sliding Scale -) 1 vial SQ ACHS VIRGILIO PRN Reason: Protocol Last Admin: 09/29/16 06:19 Dose: 2 unit Levothyroxine Sodium (Synthroid -) 75 mcg PO DAILY@0700 [facility] Last Admin: 09/29/16 06:19 Dose: 75 mcg Montelukast Sodium (Singulair -) 10 mg PO HS [facility] Last Admin: 09/28/16 22:34 Dose: 10 mg Nystatin (Nystop Powder -) 1 applic TP BID [facility] Last Admin: 09/28/16 22:37 Dose: 1 applic Jyfzi-6-Puva Ethyl Esters (Lovaza -) 1 gm PO TID [facility] Last Admin: 09/29/16 06:19 Dose: 1 gm Ondansetron HCl (Zofran -) 8 mg PO Q8H PRN PRN Reason: NAUSEA Senna (Senna -) 1 tab PO DAILY PRN Last Admin: 09/24/16 10:31 Dose: 1 tab Spironolactone (Aldactone -) 50 mg PO DAILY [facility] Last Admin: 09/28/16 10:37 Dose: 50 mg A/P Metastatic Adenocarcinoma of Mullerian origin Malignant Left Pleural Effusion s/p L VATS/pleur-x placement Bilateral Lung Nodules likely metastatic disease Atrial Fibrillation CHF HTN DM Morbid Obesity - antiemetics - can cap pleur-x catheter and drain depending on symptoms, since there is increased drainage, may need drainage q2-3 days initially - rate controlled - continue anticoagulation - O2 as needed - DVT prophylaxis - d/c planning
--- NOTE | 2016-09-29 12:37 | PN ---
Physical Exam: SUBJECTIVE: Patient seen and examined. She had nausea earlier. No vomiting. OBJECTIVE: Vital Signs Period Temp Pulse Resp BP Sys/Dinero Pulse Ox Last 24 Hr 97.3 F-98.5 F 73-89 20-20 111-146/56-64 98-99 GENERAL: The patient is awake, alert, and fully oriented, in no acute distress. LUNGS: Clear to auscultation bilaterally with decreased breath sounds at left base HEART: Irregularly irregular ABDOMEN: Obese, soft, nontender, nondistended, normoactive bowel sounds. EXTREMITIES: 2+ pulses, warm, well-perfused. Lymphedema of both legs. Laboratory Results - last 24 hr 09/28/16 09/28/16 09/28/16 06:10 17:20 22:31 INR Sodium Potassium Chloride Carbon Dioxide Anion Gap BUN Creatinine POC Glucometer 235 262 276 Random Glucose Calcium 09/29/16 09/29/16 09/29/16 06:00 06:00 06:17 INR 2.90 H D Sodium 130 L Potassium 4.9 Chloride 95 L Carbon Dioxide 28 Anion Gap 7 L BUN 13 Creatinine 0.8 POC Glucometer 245 Random Glucose 240 H Calcium 8.8 09/29/16 11:25 INR Sodium Potassium Chloride Carbon Dioxide Anion Gap BUN Creatinine POC Glucometer 353 Random Glucose Calcium Active Medications Generic Name Dose Route Start Last Admin Trade Name Freq PRN Reason Stop Dose Admin Aclidinium [place] 1 puff 09/20/16 22:00 09/28/16 22:37 Tudorza - IH 1 puff BID VIRGILIO Administration Albuterol Sulfate 1 amp 09/28/16 10:51 09/29/16 10:38 Ventolin 0.083% Nebulizer Soln - NEB 1 amp Q6H PRN Administration SHORT OF BREATH/WHEEZING Atorvastatin Calcium 20 mg 09/20/16 22:00 09/28/16 22:34 Lipitor - PO 20 mg HS VIRGILIO Administration Diltiazem HCl 300 mg 09/21/16 10:00 09/28/16 10:37 Cardizem Cd - PO 300 mg DAILY VIRGILIO Administration Ferrous Sulfate 325 mg 09/21/16 10:00 09/28/16 10:37 Feosol - PO 325 mg DAILY VIRGILIO Administration Guaifenesin 5 ml 09/20/16 11:41 09/23/16 10:20 Diabetic Tussin Dm - PO 5 ml Q6H PRN Administration COUGH IV Flush 10 ml 09/23/16 18:50 09/24/16 06:19 Neeta-Cath Flush IVPUSH 10 ml PRN PRN Administration FLUSH Insulin Aspart 1 vial 09/20/16 16:30 09/29/16 06:19 Novolog Vial Sliding Scale - SQ 2 unit ACHS VIRGILIO Administration Protocol Levothyroxine Sodium 75 mcg 09/21/16 07:00 09/29/16 06:19 Synthroid - PO 75 mcg DAILY@0700 VIRGILIO Administration Montelukast Sodium 10 mg 09/20/16 22:00 09/28/16 22:34 Singulair - PO 10 mg HS VIRGILIO Administration Nystatin 1 applic 09/21/16 02:45 09/28/16 22:37 Nystop Powder - TP 1 applic BID VIRGILIO Administration Amgyg-7-Arwl Ethyl Esters 1 gm 09/20/16 14:00 09/29/16 06:19 Lovaza - PO 1 gm TID VIRGILIO Administration Ondansetron HCl 8 mg 09/28/16 11:47 Zofran - PO Q8H PRN NAUSEA Senna 1 tab 09/20/16 11:41 09/24/16 10:31 Senna - PO 1 tab DAILY PRN Administration Spironolactone 50 mg 09/21/16 10:00 09/28/16 10:37 Aldactone - PO 50 mg DAILY VIRGILIO Administration ASSESSMENT/PLAN: This is a 61-year-old woman with a history of HTN, atrial fib, hypothyroidism, COPD, type 2 DM and morbid obesity who presented to the ER for dyspnea on exertion. 1. Metastatic Mullerian adenocarcinoma with left pleural effusion - s/p thoracentesis 09/09 - s/p liver biopsy 09/12 - s/p VATS placement of Pleur-x catheter 09/17 - s/p Portacath insertion 09/20 - Treated with Carboplatin and Taxol 09/22 - next planned for tomorrow - Pleur-x drainage 132 cc in last 24 hrs - Zofran as needed for nausea 2. Hyponatremia - Sodium stable 3. Permanent atrial fibrillation - Continue Cardizem CD, Coumadin 4. Hypomagnesemia - Improved 5. Morbid obesity with BMI 60.8 6. Hypothyroidism - Continue Synthroid 7. Type 2 DM - Continue Novolog sliding scale 8. HTN - Continue Cardizem, Aldactone 9. Hyperlipidemia - Continue Lipitor, Lovaza 10. COPD - Continue Tudorza, Singulair, Albuterol as needed 11. Chronic systolic heart failure - Continue Aldactone - Cozaar held secondary to hypotension Visit type - Emergency Visit Emergency Visit: Yes ED Registration Date: 09/08/16 Care time: The patient presented to the Emergency Department on the above date and was hospitalized for further evaluation of their emergent condition. - New Patient This patient is new to me today: No - Critical Care Critical Care patient: No - Discharge Referral Referred to [facility] No
[2016-09-29] MEDS: NYSTATIN POWDER 100,000 UNITS/GM - 15 GM TOPICAL POWDER TP SCH ×2 (12:43→23:20)
--- NOTE | 2016-09-29 16:12 | PN ---
Progress Note (short form) - Note Progress Note: Patient seen and examined Weak, lying in bed . Was in wheel chair good portion of day Last Vital Signs Temp Pulse Resp BP Pulse Ox 97.7 F 87 20 122/60 99 09/29/16 14:26 09/29/16 14:26 09/29/16 14:26 09/29/16 14:26 09/28/16 21:00 HEENT: FRANSICO, EOM Intact Oropharynx: No thrush, No mucositis Cor: RSR, No murmurs, No gallops Lungs: decreased breath sounds bilaterally Abd: Soft,obese Ext:LE edema Skin: No rashes, Integument intact Chest tube drainage - serosanguineous drainage CBC, BMP 09/27/16 06:00 09/29/16 06:00 Current Medications Generic Name Dose Route Start Last Admin Trade Name Freq PRN Reason Stop Dose Admin Aclidinium [place] 1 puff 09/20/16 22:00 09/29/16 10:44 Tudorza - IH 1 puff BID VIRGILIO Administration Albuterol Sulfate 1 amp 09/28/16 10:51 09/29/16 10:38 Ventolin 0.083% Nebulizer Soln - NEB 1 amp Q6H PRN Administration SHORT OF BREATH/WHEEZING Atorvastatin Calcium 20 mg 09/20/16 22:00 09/28/16 22:34 Lipitor - PO 20 mg HS VIRGILIO Administration Diltiazem HCl 300 mg 09/21/16 10:00 09/29/16 10:43 Cardizem Cd - PO 300 mg DAILY VIRGILIO Administration Ferrous Sulfate 325 mg 09/21/16 10:00 09/29/16 10:43 Feosol - PO 325 mg DAILY VIRGILIO Administration Guaifenesin 5 ml 09/20/16 11:41 09/23/16 10:20 Diabetic Tussin Dm - PO 5 ml Q6H PRN Administration COUGH IV Flush 10 ml 09/23/16 18:50 09/24/16 06:19 Neeta-Cath Flush IVPUSH 10 ml PRN PRN Administration FLUSH Insulin Aspart 1 vial 09/20/16 16:30 09/29/16 11:44 Novolog Vial Sliding Scale - SQ 8 unit ACHS VIRGILIO Administration Protocol Levothyroxine Sodium 75 mcg 09/21/16 07:00 09/29/16 06:19 Synthroid - PO 75 mcg DAILY@0700 VIRGILIO Administration Montelukast Sodium 10 mg 09/20/16 22:00 09/28/16 22:34 Singulair - PO 10 mg HS VIRGILIO Administration Nystatin 1 applic 09/21/16 02:45 09/29/16 12:43 Nystop Powder - TP 1 applic BID VIRGILIO Administration Zvger-7-Zbfi Ethyl Esters 1 gm 09/20/16 14:00 09/29/16 15:44 Lovaza - PO 1 gm TID VIRGILIO Administration Ondansetron HCl 8 mg 09/28/16 11:47 Zofran - PO Q8H PRN NAUSEA Senna 1 tab 09/20/16 11:41 09/24/16 10:31 Senna - PO 1 tab DAILY PRN Administration Spironolactone 50 mg 09/21/16 10:00 09/29/16 10:42 Aldactone - PO 50 mg DAILY VIRGILIO Administration Warfarin Sodium 3 mg 09/29/16 18:00 Coumadin - PO DAILY@1800 [facility] Impression: Malignant pleural effusion of Mullerian origin S/P pleurex [id number] with taxol/ carbo -cycle 2 for 09/30 CAP of pleurex Discharge planning thereafter Needs aggressive rehab
[2016-09-29] MEDS: WARFARIN NA 3 MG TABLET PO SCH (17:25)
[2016-09-29] MEDS ORDERED: INSULIN (NOVOLOG) ASPART 100 UNITS/ML 10ML VIAL ONE (22:51)
[2016-09-29] MEDS: MONTELUKAST NA 10 MG TABLET PO SCH (22:58)
[2016-09-29] MEDS: ATORVASTATIN CA 20 MG TABLET (FP) PO SCH (22:58)
[2016-09-30] MEDS ORDERED: INSULIN (NOVOLOG) ASPART 100 UNITS/ML 10ML VIAL ONE ×2 (05:49→09:58)
[2016-09-30] MEDS: OMEGA-3 ACID ETHYL ESTERS (FATTY-ACIDS) 1 GM CAPSULE (FP) PO SCH ×3 (06:18→21:57)
[2016-09-30] MEDS: INSULIN SLIDING SCALE (NOVOLOG) 1 VIAL SQ SCH ×4 (06:18→21:57)
[2016-09-30] MEDS: LEVOTHYROXINE NA 75 MCG TABLET (FP) PO SCH (06:18)
[2016-09-30 08:11] LABS: INR 2.3 (0.82-1.09); PROTHROMBIN TIME (PATIENT) 25.7 SEC (9.98-11.88)
[2016-09-30 08:13] LABS: MCH 24.4 pg (25.7-33.7); MCHC 32.3 g/dl (32.0-36.0); MEAN CELL VOLUME 75.7 fl (80-96); MEAN PLT VOLUME 9.9 fl (7.5-11.1); PLATELET COUNT 187 K/MM3 (134-434); RDW 16.7 % (11.6-15.6); WHITE BLOOD COUNT 5.2 K/mm3 (4.0-10.0)
[2016-09-30 08:40] LABS: COCKROFT - GAULT 217.8975; CREATININE 0.7 mg/dL (0.55-1.02)
--- NOTE | 2016-09-30 08:53 | PN ---
Physical Exam: SUBJECTIVE: Patient seen and examined by me at bedside. Patient states her nausea has improved and mainly experiences is hours after she eats a meal. She was able to tolerate her breakfast this morning and has a little more energy. Patient is to have her second session chemotherapy. Patient reports overnight she had severe gas but has resolved this morning. Otherwise, patient denies fever, chills, chest pain, shortness of breath, headaches, dizziness. OBJECTIVE: Vital Signs Period Temp Pulse Resp BP Sys/Dinero Pulse Ox Last 24 Hr 97.4 F-98.5 F 80-93 18-20 103-138/60-71 96-99 GENERAL: The patient is awake, alert, and fully oriented, in no acute distress. LUNGS: Decreased breath sounds throughout left lung bases no crackles or wheezes. Left chest tube draining. HEART: Irregularly irregular, normal S1 and S2 without murmur, rub or gallop. Left chemoport placement bandage c/d/i ABDOMEN: Soft, Obese, nontender, nondistended, normoactive bowel sounds. EXTREMITIES: B/L lower extremity chronic venous changes with lymphedema and scaly dry skin Laboratory Results - last 24 hr 09/29/16 09/29/16 09/29/16 06:00 06:00 11:25 WBC RBC Hgb Hct MCV MCHC RDW Plt Count MPV INR 2.90 H D Sodium 130 L Potassium 4.9 Chloride 95 L Carbon Dioxide 28 Anion Gap 7 L BUN 13 Creatinine 0.8 POC Glucometer 353 Random Glucose 240 H Calcium 8.8 09/29/16 09/29/16 09/30/16 17:22 21:32 05:53 WBC RBC Hgb Hct MCV MCHC RDW Plt Count MPV INR Sodium Potassium Chloride Carbon Dioxide Anion Gap BUN Creatinine POC Glucometer 301 246 202 Random Glucose Calcium 09/30/16 09/30/16 09/30/16 06:00 06:00 06:00 WBC 5.2 RBC 4.70 Hgb 11.5 D Hct 35.6 MCV 75.7 L MCHC 32.3 RDW 16.7 H Plt Count 187 MPV 9.9 INR 2.30 H Sodium 132 L Potassium 4.7 Chloride 95 L Carbon Dioxide 27 Anion Gap 10 BUN 11 Creatinine 0.7 POC Glucometer Random Glucose 202 H Calcium 9.0 Active Medications Generic Name Dose Route Start Last Admin Trade Name Freq PRN Reason Stop Dose Admin Aclidinium [place] 1 puff 09/20/16 22:00 09/29/16 22:58 Tudorza - IH 1 puff BID VIRGILIO Administration Albuterol Sulfate 1 amp 09/28/16 10:51 09/29/16 10:38 Ventolin 0.083% Nebulizer Soln - NEB 1 amp Q6H PRN Administration SHORT OF BREATH/WHEEZING Atorvastatin Calcium 20 mg 09/20/16 22:00 09/29/16 22:58 Lipitor - PO 20 mg HS VIRGILIO Administration Diltiazem HCl 300 mg 09/21/16 10:00 09/29/16 10:43 Cardizem Cd - PO 300 mg DAILY VIRGILIO Administration Ferrous Sulfate 325 mg 09/21/16 10:00 09/29/16 10:43 Feosol - PO 325 mg DAILY VIRGILIO Administration Guaifenesin 5 ml 09/20/16 11:41 09/23/16 10:20 Diabetic Tussin Dm - PO 5 ml Q6H PRN Administration COUGH IV Flush 10 ml 09/23/16 18:50 09/24/16 06:19 Neeta-Cath Flush IVPUSH 10 ml PRN PRN Administration FLUSH Insulin Aspart 1 vial 09/20/16 16:30 09/30/16 06:18 Novolog Vial Sliding Scale - SQ 2 unit ACHS VIRGILIO Administration Protocol Levothyroxine Sodium 75 mcg 09/21/16 07:00 09/30/16 06:18 Synthroid - PO 75 mcg DAILY@0700 VIRGILIO Administration Montelukast Sodium 10 mg 09/20/16 22:00 09/29/16 22:58 Singulair - PO 10 mg HS VIRGILIO Administration Nystatin 1 applic 09/21/16 02:45 09/29/16 23:20 Nystop Powder - TP 1 applic BID VIRGILIO Administration Lehjl-7-Qjrg Ethyl Esters 1 gm 09/20/16 14:00 09/30/16 06:18 Lovaza - PO 1 gm TID VIRGILIO Administration Ondansetron HCl 8 mg 09/28/16 11:47 Zofran - PO Q8H PRN NAUSEA Senna 1 tab 09/20/16 11:41 09/24/16 10:31 Senna - PO 1 tab DAILY PRN Administration Spironolactone 50 mg 09/21/16 10:00 09/29/16 10:42 Aldactone - PO 50 mg DAILY VIRGILIO Administration Warfarin Sodium 3 mg 09/29/16 18:00 09/29/16 17:25 Coumadin - PO 3 mg DAILY@1800 VIRGILIO Administration Images: Chest X-ray (09/08/16): Moderate left pleural effusion with compressive atelectasis. Multiple lung nodules - lung metastasis. Chest CT w/ Contrast (09/08/16): Innumerable bilateral pulmonary nodules, moderate to large left pleural effusion, and mediastinal and hilar lymphadenopathy are highly suspicious for metastatic disease. 2.9 cm hypodense mass is seen in the left lobe of the liver. Thoracocentesis under U/S guide (09/09/16) Chest X-ray (09/09/16): Decreased Pleural Effusion. No Pneumothorax seen. CT Abdomen and pelvis (09/10/16): CT abd/pelvis shows multiple metastatic pulmonary nodules, moderate left pleural effusion, hypodense left hepatic lobe mass, possible hypodense right hepatic lobe mass, diverticulosis CHEST X-RAY (09/20/16): Left lower lobe consolidation and probable left pleural effusion. CHEST X-RAY (09/25/16): There is slightly better aeration of the left lung base ASSESSMENT/PLAN: Patient is a 61 year old female with PMHx of HTN, A.fib on Coumadin, DMII, CHF, COPD, GERD and hypothyroidism who presented for dyspnea and was found to have a large left pleural effusion with multiple nodules on chest x-ray. Patient admitted for further monitoring and management. Dyspnea Secondary to Malignant Pleural Effusions - Improving -S/P thoracentesis 09/09/16 and cytology was positive for malignant cells. Involvement by Adenocarcinoma, most consistent with Mullerian origin -S/P Left VATS/L pleurex 09/17/16 with 2L of serosanguinous fluid removed. Drained 175 in last 12 hours. Pulmonology recommended patient is to drain less than 100cc before discharge. 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 -Oncology consult appreciated. -Vascular consult appreciated Nausea- Improving -Likely secondary to chemotherapy -Zofran 4mg PRN Supratherapeutic INR- Improved -Today 2.3 -Continue Coumadin 3mg. May need to increase Apathetic/Loss of appetite -Possible depression -Likely due to new diagnosis of Ovarian cancer -Spoke to Clinical Psychologist. Dr. Trevino, who reports patient has major depression at a severe level with anxiety due to her newly diagnosis of ovarian cancer. Reports she is very receptive to psychological treatment. -Will continue inpatient treatment and will follow up with him in outpatient clinic once discharged Anticholinergic Syndrome- Resolved -Will continue to monitor Asthma/COPD- Chronic -No history of smoking -Continue with Albuterol PRN -Continue 02 PRN -Pulmonology consult appreciated Hypomagnesemia-resolved -Will continue to monitor Atrial Fibrillation -Rate controlled -Continue Diltiazem Cd 300mg daily -Coumadin 3mg daily Systolic CHF- Chronic -No acute exacerbation at the time -Aldactone 50mg daily resumed -Daily weight -Hold lasix for hypotension DMII -Controlled -BGM ACHS -Novolog sliding scale HTN -Borderline Hypotensive -Hold Losartan 50mg daily -Hold Lasix -Continue to monitor BP HLD -Continue Lipitor 20mg Hypothyroidism -Continue Levothyroxine 75mcg daily GERD -Continue Ranitidine 150mg BID Morbid Obesity -Bariatric referral as outpatient F/E/N -On no fluids -Electrolytes wnl -Diabetic diet Prophylaxis -INR 2.3 today, continue Coumadin 3mg. May need to increase Disposition -Second chemo session scheduled for today. Will likely be discharged in the morning. Visit type - Emergency Visit Emergency Visit: Yes ED Registration Date: 09/08/16 Care time: The patient presented to the Emergency Department on the above date and was hospitalized for further evaluation of their emergent condition. - New Patient This patient is new to me today: No - Critical Care Critical Care patient: No
[2016-09-30] MEDS: FERROUS SO4 325 MG TABLET (FP) PO SCH (11:10)
[2016-09-30] MEDS: NYSTATIN POWDER 100,000 UNITS/GM - 15 GM TOPICAL POWDER TP SCH ×2 (11:10→21:59)
[2016-09-30] MEDS: SPIRONOLACTONE 25 MG TABLET (FP) PO SCH (11:10)
[2016-09-30] MEDS: ACLIDINIUM BROMIDE 400 MCG/INH AERO.POWD IH SCH ×2 (11:11→21:58)
--- NOTE | 2016-09-30 12:07 | PN ---
Progress Note (short form) - Note Progress Note: OOB to wheelchair. Breathing feels ok. Still with serosanguineous drainage. (documented 800cc prior day and 175 from yesterday ?) Intake & Output 09/27/16 09/28/16 09/29/16 09/30/16 23:59 23:59 23:59 23:59 Intake Total 537 680 400 180 Output Total 227 541 4444 175 Balance -261 348 -600 5 Weight 365 lb 14.4 oz 365 lb 3.2 oz 360 lb 9 oz Last Vital Signs Temp Pulse Resp BP Pulse Ox 98.7 F 91 H 18 106/58 96 09/30/16 09:28 09/30/16 09:28 09/30/16 09:28 09/30/16 09:28 09/29/16 21:00 Active Medications Aclidinium [place] (Tudorza -) 1 puff IH BID VIRGILIO Last Admin: 09/30/16 11:11 Dose: 1 puff Albuterol Sulfate (Ventolin 0.083% Nebulizer Soln -) 1 amp NEB Q6H PRN PRN Reason: SHORT OF BREATH/WHEEZING Last Admin: 09/29/16 10:38 Dose: 1 amp Atorvastatin Calcium (Lipitor -) 20 mg PO HS VIRGILIO Last Admin: 09/29/16 22:58 Dose: 20 mg Diltiazem HCl (Cardizem Cd -) 300 mg PO DAILY VIRGILIO Last Admin: 09/30/16 11:11 Dose: 300 mg Ferrous Sulfate (Feosol -) 325 mg PO DAILY VIRGILIO Last Admin: 09/30/16 11:10 Dose: 325 mg Guaifenesin (Diabetic Tussin Dm -) 5 ml PO Q6H PRN PRN Reason: COUGH Last Admin: 09/23/16 10:20 Dose: 5 ml IV Flush (Neeta-Cath Flush) 10 ml IVPUSH PRN PRN PRN Reason: FLUSH Last Admin: 09/24/16 06:19 Dose: 10 ml Insulin Aspart (Novolog Vial Sliding Scale -) 1 vial SQ ACHS VIRGILIO PRN Reason: Protocol Last Admin: 09/30/16 11:33 Dose: 6 unit Levothyroxine Sodium (Synthroid -) 75 mcg PO DAILY@0700 VIRGILIO Last Admin: 09/30/16 06:18 Dose: 75 mcg Montelukast Sodium (Singulair -) 10 mg PO HS [facility] Last Admin: 09/29/16 22:58 Dose: 10 mg Nystatin (Nystop Powder -) 1 applic TP BID [facility] Last Admin: 09/30/16 11:10 Dose: 1 applic Wobmk-1-Wriv Ethyl Esters (Lovaza -) 1 gm PO TID [facility] Last Admin: 09/30/16 06:18 Dose: 1 gm Ondansetron HCl (Zofran -) 8 mg PO Q8H PRN PRN Reason: NAUSEA Senna (Senna -) 1 tab PO DAILY PRN Last Admin: 09/24/16 10:31 Dose: 1 tab Spironolactone (Aldactone -) 50 mg PO DAILY [facility] Last Admin: 09/30/16 11:10 Dose: 50 mg Warfarin Sodium (Coumadin -) 3 mg PO DAILY@1800 [facility] Last Admin: 09/29/16 17:25 Dose: 3 mg Constitutional: Yes: NAD Eyes: Yes: WNL HENT: Yes: WNL Neck: Yes: Supple Cardiovascular: Yes: Pulse Irregular, S1, S2 Respiratory: decreased BS at the bases, Left Pleure-X Extremities: Yes: WNL Edema: Yes Labs: Laboratory Results - last 24 hr 09/29/16 09/29/16 09/30/16 17:22 21:32 05:53 WBC RBC Hgb Hct MCV MCHC RDW Plt Count MPV INR Sodium Potassium Chloride Carbon Dioxide Anion Gap BUN Creatinine POC Glucometer 301 246 202 Random Glucose Calcium 09/30/16 09/30/16 09/30/16 06:00 06:00 06:00 WBC 5.2 RBC 4.70 Hgb 11.5 D Hct 35.6 MCV 75.7 L MCHC 32.3 RDW 16.7 H Plt Count 187 MPV 9.9 INR 2.30 H Sodium 132 L Potassium 4.7 Chloride 95 L Carbon Dioxide 27 Anion Gap 10 BUN 11 Creatinine 0.7 POC Glucometer Random Glucose 202 H Calcium 9.0 Problem List - Problems (1) A-fib Code(s): I48.91 - UNSPECIFIED ATRIAL FIBRILLATION (2) Acute dyspnea Code(s): R06.00 - DYSPNEA, UNSPECIFIED (3) HTN (hypertension) Code(s): I10 - ESSENTIAL (PRIMARY) HYPERTENSION (4) Morbidly obese Code(s): E66.01 - MORBID (SEVERE) OBESITY DUE TO EXCESS CALORIES (5) Pleural effusion Code(s): J90 - PLEURAL EFFUSION, NOT ELSEWHERE CLASSIFIED (6) Hypothyroid Code(s): E03.9 - HYPOTHYROIDISM, UNSPECIFIED (7) Lymphedema Code(s): I89.0 - LYMPHEDEMA, NOT ELSEWHERE CLASSIFIED (8) Pulmonary nodules/lesions, multiple Code(s): R91.8 - OTHER NONSPECIFIC ABNORMAL FINDING OF LUNG FIELD Assessment/Plan IMP DYSPNEA IMPROVED LARGE LEFT PLEURAL EFFUSION MALIGNANT BILATERAL PULMONARY NODULES C/W METS PRIMARY GYNECOLOGIC CHF AFIB HTN DM H/O ASTHMA HYPOTHYROID MORBID OBESITY PLAN CAN CAP PLEUREX AT ANYTIME D/C IS ANTICIPATED -> WILL NEED TO SET UP VNS FOR PERIODIC DRAINAGE FOR CHEMO TODAY NASAL O2 INHALED BRONCHODILATORS D/C PLANNING DR SHETH
--- NOTE | 2016-09-30 13:13 | PN ---
Teaching Attending Note Name of Resident: Natasha Hodge ATTENDING PHYSICIAN STATEMENT I saw and evaluated the patient. I reviewed the resident's note and discussed the case with the resident. I agree with the resident's findings and plan as documented. SUBJECTIVE: Nausea is improving. OBJECTIVE: Vital Signs Period Temp Pulse Resp BP Sys/Dinero Pulse Ox Last 24 Hr 97.7 F-98.7 F 80-92 18-20 103-123/58-65 96 HEART: Irregularly irregular LUNGS: Clear with dereased BS at left base ABDOMEN: Obese, soft, non-tender, non-distended, normal BS EXTREMITIES: (+) lymphedema of both legs ASSESSMENT AND PLAN: This is a 61-year-old woman with a history of HTN, atrial fib, hypothyroidism, COPD, type 2 DM and morbid obesity who presented to the ER for dyspnea on exertion. 1. Metastatic Mullerian adenocarcinoma with left pleural effusion - s/p thoracentesis 09/09 - s/p liver biopsy 09/12 - s/p VATS placement of Pleur-x catheter 09/17 - s/p Portacath insertion 09/20 - Treated with Carboplatin and Taxol 09/22 - next planned for today - Pleur-x drainage 132 cc 09/28 and 800 cc yesterday - Zofran as needed for nausea - Plan to cap Pleur-x prior to discharge and arrange for VNS for drainage 2. Hyponatremia - Sodium stable 3. Permanent atrial fibrillation - Continue Cardizem CD, Coumadin 4. Hypomagnesemia - Improved 5. Morbid obesity with BMI 60.0 6. Hypothyroidism - Continue Synthroid 7. Type 2 DM - Continue Novolog sliding scale 8. HTN - Continue Cardizem, Aldactone 9. Hyperlipidemia - Continue Lipitor, Lovaza 10. COPD - Continue Tudorza, Singulair, Albuterol as needed 11. Chronic systolic heart failure - Continue Aldactone - Cozaar held secondary to hypotension
--- NOTE | 2016-09-30 15:00 | PN ---
Progress Note, Physician History of Present Illness: The patient is a 61 year old female, with a significant past medical history of Hypertension (on Cardizem), AFIB, diabetes, CHF, COPD, GERD and hypothyroidism , who presents to the emergency department on with SOB for few days. Patient saw her PMD 2 days ago with the same complaint who was supposed to prescribe her breathing treatment pumps, but patient states that the pumps were never sent by her doctor which prompted her to present to the ED. Patient denies any new leg swelling. Patient reports orthopnea and states that she sleeps with 2 pillows. She notes that she is cold but denies any fever. She reports normal bowel movements. Duringh hospital course she was diagnosed with; 1. 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 Permanent atrial fibrillation - Continue Cardizem CD for rate control - Continue Coumadin 3. Hypomagnesemia - Improved 4. Morbid obesity with BMI 62.4 5. Hypothyroidism - Continue Synthroid 6. Type 2 DM - Continue Novolog sliding scale 7. HTN - Continue Cardizem - Cozaar, Aldactone held secondary to low BP and increasing creatinine 8. Hyperlipidemia - Continue Lipitor, Lovaza 9. COPD - Continue Tudorza, Singulair, Albuterol as needed 10. Chronic systolic heart failure - Cozaar, Aldactone held secondary to low BP - Current Medication List Current Medications: Active Medications Aclidinium [place] (Tudorza -) 1 puff IH BID [facility] Last Admin: 09/30/16 11:11 Dose: 1 puff Albuterol Sulfate (Ventolin 0.083% Nebulizer Soln -) 1 amp NEB Q6H PRN PRN Reason: SHORT OF BREATH/WHEEZING Last Admin: 09/29/16 10:38 Dose: 1 amp Atorvastatin Calcium (Lipitor -) 20 mg PO HS [facility] Last Admin: 09/29/16 22:58 Dose: 20 mg Diltiazem HCl (Cardizem Cd -) 300 mg PO DAILY [facility] Last Admin: 09/30/16 11:11 Dose: 300 mg Ferrous Sulfate (Feosol -) 325 mg PO DAILY [facility] Last Admin: 09/30/16 11:10 Dose: 325 mg Guaifenesin (Diabetic Tussin Dm -) 5 ml PO Q6H PRN PRN Reason: COUGH Last Admin: 09/23/16 10:20 Dose: 5 ml IV Flush (Netea-Cath Flush) 10 ml IVPUSH PRN PRN PRN Reason: FLUSH Last Admin: 09/24/16 06:19 Dose: 10 ml Insulin Aspart (Novolog Vial Sliding Scale -) 1 vial SQ ACHS [facility] PRN Reason: Protocol Last Admin: 09/30/16 11:33 Dose: 6 unit Levothyroxine Sodium (Synthroid -) 75 mcg PO DAILY@0700 [facility] Last Admin: 09/30/16 06:18 Dose: 75 mcg Montelukast Sodium (Singulair -) 10 mg PO HS [facility] Last Admin: 09/29/16 22:58 Dose: 10 mg Nystatin (Nystop Powder -) 1 applic TP BID [facility] Last Admin: 09/30/16 11:10 Dose: 1 applic Yudwz-1-Mdxg Ethyl Esters (Lovaza -) 1 gm PO TID [facility] Last Admin: 09/30/16 14:41 Dose: 1 gm Ondansetron HCl (Zofran -) 8 mg PO Q8H PRN PRN Reason: NAUSEA Senna (Senna -) 1 tab PO DAILY PRN Last Admin: 09/24/16 10:31 Dose: 1 tab Spironolactone (Aldactone -) 50 mg PO DAILY [facility] Last Admin: 09/30/16 11:10 Dose: 50 mg Warfarin Sodium (Coumadin -) 3 mg PO DAILY@1800 [facility] Last Admin: 09/29/16 17:25 Dose: 3 mg - Objective Vital Signs: Vital Signs Temperature 98.0 F 09/30/16 14:00 Pulse Rate 100 H 09/30/16 14:00 Respiratory Rate 20 09/30/16 14:00 Blood Pressure 147/60 09/30/16 14:00 O2 Sat by Pulse Oximetry (%) 96 09/29/16 21:00 Eyes: Yes: WNL, Conjunctiva Clear, EOM Intact HENT: Yes: WNL, Atraumatic, Normocephalic Neck: Yes: WNL, Supple, Trachea Midline Cardiovascular: Yes: WNL, Regular Rate and Rhythm Respiratory: Yes: WNL, Regular, CTA Bilaterally Gastrointestinal: Yes: WNL, Normal Bowel Sounds Genitourinary: Yes: WNL Musculoskeletal: Yes: WNL Extremities: Yes: WNL Edema: Yes Integumentary: Yes: WNL Neurological: Yes: WNL, Alert, Oriented ...Motor Strength: WNL Psychiatric: Yes: WNL Labs: CBC, BMP 09/30/16 06:00 09/30/16 06:00 INR, PTT INR 2.30 (0.82-1.09) H 09/30/16 06:00 Problem List - Problems (1) A-fib Code(s): I48.91 - UNSPECIFIED ATRIAL FIBRILLATION (2) Acute dyspnea Code(s): R06.00 - DYSPNEA, UNSPECIFIED (3) Acute renal insufficiency Code(s): N28.9 - DISORDER OF KIDNEY AND URETER, UNSPECIFIED (4) CHF exacerbation Code(s): I50.9 - HEART FAILURE, UNSPECIFIED (5) Cellulitis Code(s): L03.90 - CELLULITIS, UNSPECIFIED Qualifiers: Site of cellulitis: extremity Site of cellulitis of extremity: lower extremity Laterality: left Qualified Code(s): L03.116 - Cellulitis of left lower limb (6) HTN (hypertension) Code(s): I10 - ESSENTIAL (PRIMARY) HYPERTENSION (7) Morbidly obese Code(s): E66.01 - MORBID (SEVERE) OBESITY DUE TO EXCESS CALORIES (8) Pleural effusion Code(s): J90 - PLEURAL EFFUSION, NOT ELSEWHERE CLASSIFIED (9) Pulmonary nodules/lesions, multiple Code(s): R91.8 - OTHER NONSPECIFIC ABNORMAL FINDING OF LUNG FIELD (10) Supratherapeutic INR Code(s): R79.1 - ABNORMAL COAGULATION PROFILE (11) Hypothyroid Code(s): E03.9 - HYPOTHYROIDISM, UNSPECIFIED (12) Lymphedema Code(s): I89.0 - LYMPHEDEMA, NOT ELSEWHERE CLASSIFIED (13) Hematuria Code(s): R31.9 - HEMATURIA, UNSPECIFIED Assessment/Plan Atrial fibrillation-HR controlled -Cont cardizem CD 300mg daily -holding warfarin for supratherapeutic INR, planned to resume when INR trends down to therapeutic range - CHF -plan for repeat echo as above -on diltiazem and spironolactone (monitor K levels, currently adequate) HTN-adequately controlled -cont current medical regimen Pleural effusion-malignant -s/p chest tube -as per pulm, CT surgery
[2016-09-30] MEDS: PORTA CATH FLUSH 10 ML IVPUSH PRN (15:18)
[2016-09-30] MEDS: WARFARIN NA 3 MG TABLET PO SCH (17:43)
[2016-09-30] MEDS: ATORVASTATIN CA 20 MG TABLET (FP) PO SCH (21:57)
[2016-09-30] MEDS: MONTELUKAST NA 10 MG TABLET PO SCH (21:57)
--- NOTE | 2016-09-30 22:42 | PN ---
Progress Note (short form) - Note Progress Note: Patient seen and examined ambulating chest stube still draining AFVSS Cor: RSR, No murmurs, No gallops Lungs: Clear to P&A Abd: Soft, Normal bowel sounds, No organomegaly Ext:No significant edema labs/Meds reviewed A/P Metasatic mullerian cancer, pleural effusion, s/p VATS/chest tube Received carboplatin AUC=2 and taxol 60mg/m2 C1 D5 some nausea For zofran IVPB Plan for weekly chemotherapy on 10/02 neupogen as necessary will need f/u of chest tube
[2016-10-01] MEDS: INSULIN SLIDING SCALE (NOVOLOG) 1 VIAL SQ SCH ×4 (06:36→22:32)
[2016-10-01] MEDS: OMEGA-3 ACID ETHYL ESTERS (FATTY-ACIDS) 1 GM CAPSULE (FP) PO SCH ×3 (06:37→22:22)
[2016-10-01] MEDS: LEVOTHYROXINE NA 75 MCG TABLET (FP) PO SCH (06:37)
[2016-10-01 07:46] LABS: INR 2.29 (0.82-1.09); PROTHROMBIN TIME (PATIENT) 25.6 SEC (9.98-11.88)
[2016-10-01 07:57] LABS: CALCIUM 9.2 mg/dL (8.5-10.1); COCKROFT - GAULT 190.5785; CREATININE 0.8 mg/dL (0.55-1.02)
--- NOTE | 2016-10-01 10:21 | PN ---
Progress Note (short form) - Note Progress Note: OOB to wheelchair. Breathing feels ok. Still with serosanguineous drainage. (documented 150cc) Intake & Output 09/28/16 09/29/16 09/30/16 10/01/16 23:59 23:59 23:59 23:59 Intake Total 680 400 760 90 Output Total 332 1000 175 150 Balance 348 -600 585 -60 Weight 365 lb 3.2 oz 357 lb 4.8 oz 360 lb 6.4 oz Last Vital Signs Temp Pulse Resp BP Pulse Ox 97.8 F 80 20 105/57 97 10/01/16 05:32 10/01/16 05:32 10/01/16 05:32 10/01/16 05:32 09/30/16 21:00 Active Medications Aclidinium [place] (Tudorza -) 1 puff IH BID [facility] Last Admin: 09/30/16 21:58 Dose: 1 puff Albuterol Sulfate (Ventolin 0.083% Nebulizer Soln -) 1 amp NEB Q6H PRN PRN Reason: SHORT OF BREATH/WHEEZING Last Admin: 09/29/16 10:38 Dose: 1 amp Atorvastatin Calcium (Lipitor -) 20 mg PO HS [facility] Last Admin: 09/30/16 21:57 Dose: 20 mg Diltiazem HCl (Cardizem Cd -) 300 mg PO DAILY [facility] Last Admin: 09/30/16 11:11 Dose: 300 mg Ferrous Sulfate (Feosol -) 325 mg PO DAILY [facility] Last Admin: 09/30/16 11:10 Dose: 325 mg Guaifenesin (Diabetic Tussin Dm -) 5 ml PO Q6H PRN PRN Reason: COUGH Last Admin: 09/23/16 10:20 Dose: 5 ml IV Flush (Neeta-Cath Flush) 10 ml IVPUSH PRN PRN PRN Reason: FLUSH Last Admin: 09/30/16 15:18 Dose: 10 ml Insulin Aspart (Novolog Vial Sliding Scale -) 1 vial SQ ACHS VIRGILIO PRN Reason: Protocol Last Admin: 10/01/16 06:36 Dose: Not Given Levothyroxine Sodium (Synthroid -) 75 mcg PO DAILY@0700 [facility] Last Admin: 10/01/16 06:37 Dose: 75 mcg Montelukast Sodium (Singulair -) 10 mg PO HS [facility] Last Admin: 09/30/16 21:57 Dose: 10 mg Nystatin (Nystop Powder -) 1 applic TP BID [facility] Last Admin: 09/30/16 21:59 Dose: 1 applic Szupp-4-Isyh Ethyl Esters (Lovaza -) 1 gm PO TID [facility] Last Admin: 10/01/16 06:37 Dose: 1 gm Ondansetron HCl (Zofran -) 8 mg PO Q8H PRN PRN Reason: NAUSEA Senna (Senna -) 1 tab PO DAILY PRN Last Admin: 09/24/16 10:31 Dose: 1 tab Spironolactone (Aldactone -) 50 mg PO DAILY [facility] Last Admin: 09/30/16 11:10 Dose: 50 mg Warfarin Sodium (Coumadin -) 3 mg PO DAILY@1800 [facility] Last Admin: 09/30/16 17:43 Dose: 3 mg Constitutional: Yes: NAD Eyes: Yes: WNL HENT: Yes: WNL Neck: Yes: Supple Cardiovascular: Yes: Pulse Irregular, S1, S2 Respiratory: decreased BS at the bases, Left Pleure-X Extremities: Yes: WNL Edema: Yes Labs: Laboratory Results - last 24 hr 09/30/16 09/30/16 09/30/16 11:30 16:43 21:56 INR Sodium Potassium Chloride Carbon Dioxide Anion Gap BUN Creatinine POC Glucometer 309 233 236 Random Glucose Calcium 10/01/16 10/01/16 10/01/16 06:00 06:00 06:36 INR 2.29 H Sodium 131 L Potassium 4.7 Chloride 95 L Carbon Dioxide 27 Anion Gap 9 BUN 12 Creatinine 0.8 POC Glucometer 183 Random Glucose 198 H Calcium 9.2 Problem List - Problems (1) A-fib Code(s): I48.91 - UNSPECIFIED ATRIAL FIBRILLATION (2) Acute dyspnea Code(s): R06.00 - DYSPNEA, UNSPECIFIED (3) HTN (hypertension) Code(s): I10 - ESSENTIAL (PRIMARY) HYPERTENSION (4) Morbidly obese Code(s): E66.01 - MORBID (SEVERE) OBESITY DUE TO EXCESS CALORIES (5) Pleural effusion Code(s): J90 - PLEURAL EFFUSION, NOT ELSEWHERE CLASSIFIED (6) Hypothyroid Code(s): E03.9 - HYPOTHYROIDISM, UNSPECIFIED (7) Lymphedema Code(s): I89.0 - LYMPHEDEMA, NOT ELSEWHERE CLASSIFIED (8) Pulmonary nodules/lesions, multiple Code(s): R91.8 - OTHER NONSPECIFIC ABNORMAL FINDING OF LUNG FIELD Assessment/Plan IMP DYSPNEA IMPROVED LARGE LEFT PLEURAL EFFUSION MALIGNANT BILATERAL PULMONARY NODULES C/W METS PRIMARY GYNECOLOGIC CHF AFIB HTN DM H/O ASTHMA HYPOTHYROID MORBID OBESITY PLAN CAN CAP PLEUREX AT ANYTIME D/C IS ANTICIPATED -> WILL NEED TO SET UP VNS FOR PERIODIC DRAINAGE (AT LEAST 3 TIMES PER WEEK) FOR CHEMO TOMORROW NASAL O2 INHALED BRONCHODILATORS D/C PLANNING DR SHETH
--- NOTE | 2016-10-01 11:06 | PN ---
Progress Note, Physician History of Present Illness: The patient is a 61 year old female, with a significant past medical history of Hypertension (on Cardizem), AFIB, diabetes, CHF, COPD, GERD and hypothyroidism , who presents to the emergency department on with SOB for few days. Patient saw her PMD 2 days ago with the same complaint who was supposed to prescribe her breathing treatment pumps, but patient states that the pumps were never sent by her doctor which prompted her to present to the ED. Patient denies any new leg swelling. Patient reports orthopnea and states that she sleeps with 2 pillows. She notes that she is cold but denies any fever. She reports normal bowel movements. Duringh hospital course she was diagnosed with; 1. 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 Permanent atrial fibrillation - Continue Cardizem CD for rate control - Continue Coumadin 3. Hypomagnesemia - Improved 4. Morbid obesity with BMI 62.4 5. Hypothyroidism - Continue Synthroid 6. Type 2 DM - Continue Novolog sliding scale 7. HTN - Continue Cardizem - Cozaar, Aldactone held secondary to low BP and increasing creatinine 8. Hyperlipidemia - Continue Lipitor, Lovaza 9. COPD - Continue Tudorza, Singulair, Albuterol as needed 10. Chronic systolic heart failure - Cozaar, Aldactone held secondary to low BP - Current Medication List Current Medications: Active Medications Aclidinium [place] (Tudorza -) 1 puff IH BID [facility] Last Admin: 09/30/16 21:58 Dose: 1 puff Albuterol Sulfate (Ventolin 0.083% Nebulizer Soln -) 1 amp NEB Q6H PRN PRN Reason: SHORT OF BREATH/WHEEZING Last Admin: 09/29/16 10:38 Dose: 1 amp Atorvastatin Calcium (Lipitor -) 20 mg PO HS [facility] Last Admin: 09/30/16 21:57 Dose: 20 mg Diltiazem HCl (Cardizem Cd -) 300 mg PO DAILY [facility] Last Admin: 09/30/16 11:11 Dose: 300 mg Ferrous Sulfate (Feosol -) 325 mg PO DAILY [facility] Last Admin: 09/30/16 11:10 Dose: 325 mg Guaifenesin (Diabetic Tussin Dm -) 5 ml PO Q6H PRN PRN Reason: COUGH Last Admin: 09/23/16 10:20 Dose: 5 ml IV Flush (Neeta-Cath Flush) 10 ml IVPUSH PRN PRN PRN Reason: FLUSH Last Admin: 09/30/16 15:18 Dose: 10 ml Insulin Aspart (Novolog Vial Sliding Scale -) 1 vial SQ ACHS [facility] PRN Reason: Protocol Last Admin: 10/01/16 06:36 Dose: Not Given Levothyroxine Sodium (Synthroid -) 75 mcg PO DAILY@0700 [facility] Last Admin: 10/01/16 06:37 Dose: 75 mcg Montelukast Sodium (Singulair -) 10 mg PO HS [facility] Last Admin: 09/30/16 21:57 Dose: 10 mg Nystatin (Nystop Powder -) 1 applic TP BID [facility] Last Admin: 09/30/16 21:59 Dose: 1 applic Evgxy-4-Wheo Ethyl Esters (Lovaza -) 1 gm PO TID [facility] Last Admin: 10/01/16 06:37 Dose: 1 gm Ondansetron HCl (Zofran -) 8 mg PO Q8H PRN PRN Reason: NAUSEA Senna (Senna -) 1 tab PO DAILY PRN Last Admin: 09/24/16 10:31 Dose: 1 tab Spironolactone (Aldactone -) 50 mg PO DAILY [facility] Last Admin: 09/30/16 11:10 Dose: 50 mg Warfarin Sodium (Coumadin -) 3 mg PO DAILY@1800 [facility] Last Admin: 09/30/16 17:43 Dose: 3 mg - Objective Vital Signs: Vital Signs Temperature 97.8 F 10/01/16 05:32 Pulse Rate 88 10/01/16 10:36 Respiratory Rate 20 10/01/16 05:32 Blood Pressure 105/57 10/01/16 05:32 O2 Sat by Pulse Oximetry (%) 98 10/01/16 10:36 Eyes: Yes: WNL, Conjunctiva Clear, EOM Intact HENT: Yes: WNL, Atraumatic, Normocephalic Neck: Yes: WNL, Supple, Trachea Midline Cardiovascular: Yes: WNL, Regular Rate and Rhythm Respiratory: Yes: WNL, Regular, CTA Bilaterally Gastrointestinal: Yes: WNL, Normal Bowel Sounds Genitourinary: Yes: WNL Musculoskeletal: Yes: WNL Extremities: Yes: WNL Edema: No Integumentary: Yes: WNL Neurological: Yes: WNL, Alert, Oriented ...Motor Strength: WNL Psychiatric: Yes: WNL Labs: CBC, BMP 09/30/16 06:00 10/01/16 06:00 INR, PTT INR 2.29 (0.82-1.09) H 10/01/16 06:00 Problem List - Problems (1) A-fib Code(s): I48.91 - UNSPECIFIED ATRIAL FIBRILLATION (2) Acute dyspnea Code(s): R06.00 - DYSPNEA, UNSPECIFIED (3) Acute renal insufficiency Code(s): N28.9 - DISORDER OF KIDNEY AND URETER, UNSPECIFIED (4) CHF exacerbation Code(s): I50.9 - HEART FAILURE, UNSPECIFIED (5) Cellulitis Code(s): L03.90 - CELLULITIS, UNSPECIFIED Qualifiers: Site of cellulitis: extremity Site of cellulitis of extremity: lower extremity Laterality: left Qualified Code(s): L03.116 - Cellulitis of left lower limb (6) HTN (hypertension) Code(s): I10 - ESSENTIAL (PRIMARY) HYPERTENSION (7) Morbidly obese Code(s): E66.01 - MORBID (SEVERE) OBESITY DUE TO EXCESS CALORIES (8) Pleural effusion Code(s): J90 - PLEURAL EFFUSION, NOT ELSEWHERE CLASSIFIED (9) Pulmonary nodules/lesions, multiple Code(s): R91.8 - OTHER NONSPECIFIC ABNORMAL FINDING OF LUNG FIELD (10) Supratherapeutic INR Code(s): R79.1 - ABNORMAL COAGULATION PROFILE (11) Hypothyroid Code(s): E03.9 - HYPOTHYROIDISM, UNSPECIFIED (12) Lymphedema Code(s): I89.0 - LYMPHEDEMA, NOT ELSEWHERE CLASSIFIED (13) Hematuria Code(s): R31.9 - HEMATURIA, UNSPECIFIED Assessment/Plan Atrial fibrillation-HR controlled -Cont cardizem CD 300mg daily -holding warfarin for supratherapeutic INR, planned to resume when INR trends down to therapeutic range - CHF -plan for repeat echo as above -on diltiazem and spironolactone (monitor K levels, currently adequate) HTN-adequately controlled -cont current medical regimen Pleural effusion-malignant -s/p chest tube -as per pulm, CT surgery
[2016-10-01] MEDS: SPIRONOLACTONE 25 MG TABLET (FP) PO SCH (12:25)
[2016-10-01] MEDS: ACLIDINIUM BROMIDE 400 MCG/INH AERO.POWD IH SCH ×2 (12:26→22:23)
[2016-10-01] MEDS: NYSTATIN POWDER 100,000 UNITS/GM - 15 GM TOPICAL POWDER TP SCH ×2 (12:26→22:23)
[2016-10-01] MEDS: FERROUS SO4 325 MG TABLET (FP) PO SCH (12:30)
[2016-10-01] MEDS: SENNOSIDES 8.6MG TABLET (FP) PO PRN (12:30)
--- NOTE | 2016-10-01 13:01 | PN ---
Progress Note (short form) - Note Progress Note: Maria Luisa was seen briefly. She was communicative and shared her concerns about coping with the drainage tube, chemotherapy and her illness. We discussed using positive self talk. Real cases with stage 4 cancers were presented to give her some inspiration because they benefited from psychological interventions. The patient was responsive to the suggestion. She will be seen in the hospital until discharged. Self hypnosis will be taught to the patient as a coping mechanism as well. Robin Trevino Psy.D. Problem List - Problems (1) Anxiety and depression Code(s): F41.9 - ANXIETY DISORDER, UNSPECIFIED F32.9 - MAJOR DEPRESSIVE DISORDER, SINGLE EPISODE, UNSPECIFIED
--- NOTE | 2016-10-01 14:57 | PN ---
Physical Exam: SUBJECTIVE: Patient seen and examined by me at bedside. Patient states the gas improved as well as the nausea. She still has decreased appetite and was not able to eat breakfast this morning. Otherwise, patient denies fever, chills, abdominal pain, chest pain, palpitations, shortness of breath, headaches, visual changes. OBJECTIVE: Vital Signs Period Temp Pulse Resp BP Sys/Dinero Pulse Ox Last 24 Hr 97.8 F-98 F 73-88 20-20 105-121/57-71 97-98 GENERAL: The patient is awake, alert, and fully oriented, in no acute distress. LUNGS: Decreased breath sounds throughout left lung bases, no crackles or wheezes. Left chest tube draining. HEART: Irregularly irregular, normal S1 and S2 without murmur, rub or gallop. Left chemoport placement bandage c/d/i ABDOMEN: Soft, Obese, nontender, nondistended, normoactive bowel sounds. EXTREMITIES: B/L lower extremity chronic venous changes with lymphedema Laboratory Results - last 24 hr 09/30/16 09/30/16 10/01/16 16:43 21:56 06:00 INR 2.29 H Sodium Potassium Chloride Carbon Dioxide Anion Gap BUN Creatinine POC Glucometer 233 236 Random Glucose Calcium 10/01/16 10/01/16 06:00 06:36 INR Sodium 131 L Potassium 4.7 Chloride 95 L Carbon Dioxide 27 Anion Gap 9 BUN 12 Creatinine 0.8 POC Glucometer 183 Random Glucose 198 H Calcium 9.2 Active Medications Generic Name Dose Route Start Last Admin Trade Name Freq PRN Reason Stop Dose Admin Aclidinium [place] 1 puff 09/20/16 22:00 10/01/16 12:26 Tudorza - IH 1 puff BID [facility] Administration Albuterol Sulfate 1 amp 09/28/16 10:51 09/29/16 10:38 Ventolin 0.083% Nebulizer Soln - NEB 1 amp Q6H PRN Administration SHORT OF BREATH/WHEEZING Atorvastatin Calcium 20 mg 09/20/16 22:00 09/30/16 21:57 Lipitor - PO 20 mg HS [facility]IO Administration Diltiazem HCl 300 mg 09/21/16 10:00 10/01/16 12:25 Cardizem Cd - PO 300 mg DAILY [facility] Administration Ferrous Sulfate 325 mg 09/21/16 10:00 10/01/16 12:30 Feosol - PO 325 mg DAILY [facility] Administration Guaifenesin 5 ml 09/20/16 11:41 09/23/16 10:20 Diabetic Tussin Dm - PO 5 ml Q6H PRN Administration COUGH IV Flush 10 ml 09/23/16 18:50 09/30/16 15:18 Neeta-Cath Flush IVPUSH 10 ml PRN PRN Administration FLUSH Insulin Aspart 1 vial 09/20/16 16:30 10/01/16 12:26 Novolog Vial Sliding Scale - SQ 4 unit ACHS [facility] Administration Protocol Levothyroxine Sodium 75 mcg 09/21/16 07:00 10/01/16 06:37 Synthroid - PO 75 mcg DAILY@0700 [facility] Administration Montelukast Sodium 10 mg 09/20/16 22:00 09/30/16 21:57 Singulair - PO 10 mg HS [facility] Administration Nystatin 1 applic 09/21/16 02:45 10/01/16 12:26 Nystop Powder - TP 1 applic BID [facility] Administration [id number] Ethyl Esters 1 gm 09/20/16 14:00 10/01/16 14:20 Lovaza - PO 1 gm TID [facility] Administration Ondansetron HCl 8 mg 09/28/16 11:47 Zofran - PO Q8H PRN NAUSEA Senna 1 tab 09/20/16 11:41 10/01/16 12:30 Senna - PO 1 tab DAILY PRN Administration Spironolactone 50 mg 09/21/16 10:00 10/01/16 12:25 Aldactone - PO 50 mg DAILY [facility] Administration Warfarin Sodium 3 mg 09/29/16 18:00 09/30/16 17:43 Coumadin - PO 3 mg DAILY@1800 [facility] Administration Images: Chest X-ray (09/08/16): Moderate left pleural effusion with compressive atelectasis. Multiple lung nodules - lung metastasis. Chest CT w/ Contrast (09/08/16): Innumerable bilateral pulmonary nodules, moderate to large left pleural effusion, and mediastinal and hilar lymphadenopathy are highly suspicious for metastatic disease. 2.9 cm hypodense mass is seen in the left lobe of the liver. Thoracocentesis under U/S guide (09/09/16) Chest X-ray (09/09/16): Decreased Pleural Effusion. No Pneumothorax seen. CT Abdomen and pelvis (09/10/16): CT abd/pelvis shows multiple metastatic pulmonary nodules, moderate left pleural effusion, hypodense left hepatic lobe mass, possible hypodense right hepatic lobe mass, diverticulosis CHEST X-RAY (09/20/16): Left lower lobe consolidation and probable left pleural effusion. CHEST X-RAY (09/25/16): There is slightly better aeration of the left lung base CHEST X-RAY (09/29/16): Imaging reveals diffuse bilateral nodular densities compatible with metastatic disease, prominent mediastinum, left port with tip in right atrium, chin artifact and left chest tube. ASSESSMENT/PLAN: Patient is a 61 year old female with PMHx of HTN, A.fib on Coumadin, DMII, CHF, COPD, GERD and hypothyroidism who presented for dyspnea and was found to have a large left pleural effusion with multiple nodules on chest x-ray. Patient admitted for further monitoring and management. Dyspnea Secondary to Malignant Pleural Effusions - Improving -S/P thoracentesis 09/09/16 and cytology was positive for malignant cells. Involvement by Adenocarcinoma, most consistent with Mullerian origin -S/P Left VATS/L pleurex 09/17/16 with 2L of serosanguinous fluid removed. Drained 150 in last 12 hours. 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 -Vascular consult appreciated Nausea- Improving -Likely secondary to chemotherapy -Zofran 4mg PRN Supratherapeutic INR- Improved -Today 2.29 -Continue Coumadin 3mg. May need to increase Apathetic/Loss of appetite -Possible depression -Likely due to new diagnosis of Ovarian cancer -Spoke to Clinical Psychologist. Dr. Trevino, who reports patient has major depression at a severe level with anxiety due to her newly diagnosis of ovarian cancer. Reports she is very receptive to psychological treatment. -Will continue inpatient treatment and will follow up with him in outpatient clinic once discharged Anticholinergic Syndrome- Resolved -Will continue to monitor Asthma/COPD- Chronic -No history of smoking -Continue with Albuterol PRN -Continue 02 PRN -Pulmonology consult appreciated Hypomagnesemia-resolved -Will continue to monitor Atrial Fibrillation -Rate controlled -Continue Diltiazem Cd 300mg daily -Coumadin 3mg daily Systolic CHF- Chronic -No acute exacerbation at the time -Aldactone 50mg daily resumed -Daily weight -Hold lasix for hypotension DMII -Controlled -BGM ACHS -Novolog sliding scale HTN -Borderline Hypotensive -Hold Losartan 50mg daily -Hold Lasix -Continue to monitor BP HLD -Continue Lipitor 20mg Hypothyroidism -Continue Levothyroxine 75mcg daily GERD -Continue Ranitidine 150mg BID Morbid Obesity -Bariatric referral as outpatient F/E/N -On no fluids -Electrolytes wnl -Diabetic diet Prophylaxis -INR 2.29 today, continue Coumadin 3mg. May need to increase Disposition -Second chemo session is scheduled for tomorrow. Initially was going to be yesterday. Currently speaking to [facility] [place] for pleur-ex set up. Visit type - Emergency Visit Emergency Visit: Yes ED Registration Date: 09/08/16 Care time: The patient presented to the Emergency Department on the above date and was hospitalized for further evaluation of their emergent condition. - New Patient This patient is new to me today: No - Critical Care Critical Care patient: No
[2016-10-01] MEDS ORDERED: INSULIN (NOVOLOG) ASPART 100 UNITS/ML 10ML VIAL ONE ×2 (17:49→18:45)
[2016-10-01] MEDS: WARFARIN NA 3 MG TABLET PO SCH (18:04)
--- NOTE | 2016-10-01 18:31 | PN ---
Teaching Attending Note Name of Resident: Natasha Hodge ATTENDING PHYSICIAN STATEMENT I saw and evaluated the patient. I reviewed the resident's note and discussed the case with the resident. I agree with the resident's findings and plan as documented. SUBJECTIVE:currently asymptomatic. breathing improved with oxygen. denies CP, Sob, fever, chills OBJECTIVE: Last Vital Signs Temp Pulse Resp BP Pulse Ox 98.3 F 85 20 102/58 98 10/01/16 15:21 10/01/16 15:21 10/01/16 15:21 10/01/16 15:21 10/01/16 10:36 Intake & Output 09/28/16 09/29/16 09/30/16 10/01/16 23:59 23:59 23:59 23:59 Intake Total 680 400 760 90 Output Total 332 1000 175 150 Balance 348 -600 585 -60 Weight 365 lb 3.2 oz 357 lb 4.8 oz 360 lb 6.4 oz General NAD Lungs CTA B/L no wheezing or crackles extremities no pedal edema ASSESSMENT AND PLAN: 61yo M with PMH HTN, atrial fib, hypothyroidism, COPD, type 2 DM and morbid obesity who presented to the ER for dyspnea on exertion. 1. 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 improved with decreased drainage from last week however continues to have large volume output. initated chemo on 09/22. next session planned for 10/02. will need VNS to drain catheter 3x/ week 2. Hyponatremia- Sodium stable 3. Permanent atrial fibrillation- INR therapeutic. Continue Cardizem CD, Coumadin 4. Hypomagnesemia- Improved 5. Morbid obesity with BMI 60.0 6. Hypothyroidism- Continue Synthroid 7. Type 2 DM- Continue Novolog sliding scale 8. Chronic systolic heart failure-cont aldactone. ARB on hold due to hypotension 9. d/c planning home with VNS tomorrow after chemotherapy. pre & post to assess oxygen requirements as will require home O2.
--- NOTE | 2016-10-01 19:05 | PN ---
Progress Note (short form) - Note Progress Note: Patient seen and examined For chemotherapy --10/02 D/C planning Will need capping of pleurex Drain 1-2 x per week based upon volume Last Vital Signs Temp Pulse Resp BP Pulse Ox 98.3 F 85 20 102/58 98 10/01/16 15:21 10/01/16 15:21 10/01/16 15:21 10/01/16 15:21 10/01/16 10:36 Diminished breath sounds bilaterally cor -atrial fib Abd-obese LE- Edema Obese Chest tube drainage of serosanguineous material CBC, BMP 09/30/16 06:00 10/01/16 06:00 Current Medications Generic Name Dose Route Start Last Admin Trade Name Freq PRN Reason Stop Dose Admin Acetaminophen 650 mg 10/02/16 10:00 Tylenol - PO 10/02/16 10:01 ONCE ONE Aclidinium [place] 1 puff 09/20/16 22:00 10/01/16 12:26 Tudorza - IH 1 puff BID [facility]GILIO Administration Albuterol Sulfate 1 amp 09/28/16 10:51 09/29/16 10:38 Ventolin 0.083% Nebulizer Soln - NEB 1 amp Q6H PRN Administration SHORT OF BREATH/WHEEZING Atorvastatin Calcium 20 mg 09/20/16 22:00 09/30/16 21:57 Lipitor - PO 20 mg HS [facility]IO Administration Diltiazem HCl 300 mg 09/21/16 10:00 10/01/16 12:25 Cardizem Cd - PO 300 mg DAILY [facility] Administration Ferrous Sulfate 325 mg 09/21/16 10:00 10/01/16 12:30 Feosol - PO 325 mg DAILY [facility] Administration Guaifenesin 5 ml 09/20/16 11:41 09/23/16 10:20 Diabetic Tussin Dm - PO 5 ml Q6H PRN Administration COUGH IV Flush 10 ml 09/23/16 18:50 09/30/16 15:18 Neeta-Cath Flush IVPUSH 10 ml PRN PRN Administration FLUSH Sodium Chloride 250 mls @ 125 mls/hr 10/02/16 10:00 Normal Saline - IV 10/02/16 11:00 ASDIR VIRGILIO Dexamethasone Sodium Phosphate 51.2 mls @ 204.8 mls/hr 10/02/16 10:00 12 mg/ Sodium Chloride IVPB 10/02/16 10:14 ONCE ONE Diphenhydramine HCl 25 mg/ 106.5 mls @ 213 mls/hr 10/02/16 10:00 Ranitidine HCl 50 mg/ IVPB 10/02/16 10:29 Ondansetron HCl 8 mg/ Sodium ONCE ONE Chloride Paclitaxel 120 mg/ Sodium 270 mls @ 270 mls/hr 10/02/16 10:30 Chloride IVPB 10/02/16 11:29 ONCE ONE Carboplatin 240 mg/ Sodium 250 mls @ 500 mls/hr 10/02/16 11:30 Chloride IVPB 10/02/16 11:59 ONCE ONE Insulin Aspart 1 vial 09/20/16 16:30 10/01/16 18:02 Novolog Vial Sliding Scale - SQ 2 unit ACHS [facility]IO Administration Protocol Levothyroxine Sodium 75 mcg 09/21/16 07:00 10/01/16 06:37 Synthroid - PO 75 mcg DAILY@0700 [facility] Administration Montelukast Sodium 10 mg 09/20/16 22:00 09/30/16 21:57 Singulair - PO 10 mg HS [facility] Administration Nystatin 1 applic 09/21/16 02:45 10/01/16 12:26 Nystop Powder - TP 1 applic BID [facility]IO Administration Scdfe-6-Blfv Ethyl Esters 1 gm 09/20/16 14:00 10/01/16 14:20 Lovaza - PO 1 gm TID [facility] Administration Ondansetron HCl 8 mg 09/28/16 11:47 Zofran - PO Q8H PRN NAUSEA Senna 1 tab 09/20/16 11:41 10/01/16 12:30 Senna - PO 1 tab DAILY PRN Administration Spironolactone 50 mg 09/21/16 10:00 10/01/16 12:25 Aldactone - PO 50 mg DAILY [facility] Administration Warfarin Sodium 3 mg 09/29/16 18:00 10/01/16 18:04 Coumadin - PO 3 mg DAILY@1800 [facility] Administration Impression:: Malignant pleural effusion of Mullerian origin --s/p pleurex S/P taxol/ carboplatinum--cycle 1 , day 9. Morbid obesity Plan: Taxol/carbo --cycle 2 cap pleurex Discharge planning P
[2016-10-01] MEDS: MONTELUKAST NA 10 MG TABLET PO SCH (22:22)
[2016-10-01] MEDS: ATORVASTATIN CA 20 MG TABLET (FP) PO SCH (22:25)
[2016-10-02] MEDS: OMEGA-3 ACID ETHYL ESTERS (FATTY-ACIDS) 1 GM CAPSULE (FP) PO SCH ×3 (05:49→21:37)
[2016-10-02] MEDS: INSULIN SLIDING SCALE (NOVOLOG) 1 VIAL SQ SCH ×4 (06:00→21:40)
[2016-10-02] MEDS: LEVOTHYROXINE NA 75 MCG TABLET (FP) PO SCH (06:00)
[2016-10-02] MEDS ORDERED: INSULIN (NOVOLOG) ASPART 100 UNITS/ML 10ML VIAL ONE ×2 (06:28→21:02)
[2016-10-02] MEDS ORDERED: INSULIN DETEMIR 100 UNITS/ML MDV SQ ONE (06:28)
[2016-10-02 07:24] LABS: INR 1.99 (0.82-1.09); PROTHROMBIN TIME (PATIENT) 22.2 SEC (9.98-11.88)
[2016-10-02 07:47] LABS: CALCIUM 9.7 mg/dL (8.5-10.1); COCKROFT - GAULT 190.5785; CREATININE 0.8 mg/dL (0.55-1.02)
[2016-10-02] MEDS ORDERED: DEXAMETHASONE INJECTION 12 MG in SODIUM CHLORIDE 50 ML IVPB ONE (10:00)
[2016-10-02] MEDS ORDERED: ACETAMINOPHEN 325 MG TABLET (FP) PO ONE ×2 (10:00→16:30)
[2016-10-02] MEDS ORDERED: [UNRECOGNIZED DRUG - OTHER] IVPB ONE (10:00)
[2016-10-02] MEDS ORDERED: RANITIDINE IVPB ONE (10:00)
[2016-10-02] MEDS ORDERED: DIPHENHYDRAMINE IVPB ONE (10:00)
[2016-10-02] MEDS ORDERED: SODIUM CHLORIDE 250 ML IV SCH (10:00)
[2016-10-02] MEDS ORDERED: ONDANSETRON IVPB ONE (10:00)
[2016-10-02] MEDS ORDERED: WARFARIN NA 3 MG TABLET PO SCH (10:28)
[2016-10-02] MEDS ORDERED: PACLITAXEL 120 MG in SODIUM CHLORIDE 250 ML IVPB ONE (10:30)
[2016-10-02] MEDS: FERROUS SO4 325 MG TABLET (FP) PO SCH (10:42)
[2016-10-02] MEDS: SPIRONOLACTONE 25 MG TABLET (FP) PO SCH (10:42)
[2016-10-02] MEDS: ACLIDINIUM BROMIDE 400 MCG/INH AERO.POWD IH SCH ×2 (10:43→21:41)
[2016-10-02] MEDS: NYSTATIN POWDER 100,000 UNITS/GM - 15 GM TOPICAL POWDER TP SCH ×2 (10:43→21:41)
--- NOTE | 2016-10-02 11:18 | PN ---
Teaching Attending Note Name of Resident: Natasha Hodge ATTENDING PHYSICIAN STATEMENT I saw and evaluated the patient. I reviewed the resident's note and discussed the case with the resident. I agree with the resident's findings and plan as documented. SUBJECTIVE:cough resolved. no SOB on exertion. denies CP, fever, or chills OBJECTIVE: Last Vital Signs Temp Pulse Resp BP Pulse Ox 98 F 82 20 112/60 98 10/02/16 05:20 10/02/16 05:20 10/02/16 05:20 10/02/16 05:20 10/01/16 21:00 Intake & Output 09/29/16 09/30/16 10/01/16 10/02/16 23:59 23:59 23:59 23:59 Intake Total 400 760 90 50 Output Total 1000 175 350 80 Balance -600 585 -260 -30 Weight 365 lb 3.2 oz 357 lb 4.8 oz 360 lb 6.4 oz General NAD Lungs CTA B/L no wheezing or crackles decreased breath sounds at bases extremities no pedal edema ASSESSMENT AND PLAN: 61yo M with PMH HTN, atrial fib, hypothyroidism, COPD, type 2 DM and morbid obesity who presented to the ER for dyspnea on exertion. 1. 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 plan for cycle #2 of chemo today. cont chemo per onc. will need VNS to drain catheter 3x/week. pre and post O2 as will likely require home O2 2. Hyponatremia- Sodium stable 3. Permanent atrial fibrillation- INR now trending down. since it has consistently trended down will increase coumadin to 3.5mg. will need INR check in 2 days. Continue Cardizem CD, Coumadin 4. Hypomagnesemia- Improved 5. Morbid obesity with BMI 60.0 6. Hypothyroidism- Continue Synthroid 7. Type 2 DM- Continue Novolog sliding scale 8. Chronic systolic heart failure-cont aldactone. ARB on hold due to hypotension 9. d/c planning home with VNS today.
[2016-10-02] MEDS ORDERED: SODIUM CHLORIDE IVPB ONE (11:30)
[2016-10-02] MEDS ORDERED: CARBOPLATIN IVPB ONE (11:30)
--- NOTE | 2016-10-02 11:49 | PN ---
Progress Note, Physician History of Present Illness: The patient is a 61 year old female, with a significant past medical history of Hypertension (on Cardizem), AFIB, diabetes, CHF, COPD, GERD and hypothyroidism , who presents to the emergency department on with SOB for few days. Patient saw her PMD 2 days ago with the same complaint who was supposed to prescribe her breathing treatment pumps, but patient states that the pumps were never sent by her doctor which prompted her to present to the ED. Patient denies any new leg swelling. Patient reports orthopnea and states that she sleeps with 2 pillows. She notes that she is cold but denies any fever. She reports normal bowel movements. Duringh hospital course she was diagnosed with; 1. 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 Permanent atrial fibrillation - Continue Cardizem CD for rate control - Continue Coumadin 3. Hypomagnesemia - Improved 4. Morbid obesity with BMI 62.4 5. Hypothyroidism - Continue Synthroid 6. Type 2 DM - Continue Novolog sliding scale 7. HTN - Continue Cardizem - Cozaar, Aldactone held secondary to low BP and increasing creatinine 8. Hyperlipidemia - Continue Lipitor, Lovaza 9. COPD - Continue Tudorza, Singulair, Albuterol as needed 10. Chronic systolic heart failure - Cozaar, Aldactone held secondary to low BP - Current Medication List Current Medications: Active Medications Aclidinium [place] (Tudorza -) 1 puff IH BID [facility] Last Admin: 10/02/16 10:43 Dose: 1 puff Albuterol Sulfate (Ventolin 0.083% Nebulizer Soln -) 1 amp NEB Q6H PRN PRN Reason: SHORT OF BREATH/WHEEZING Last Admin: 09/29/16 10:38 Dose: 1 amp Atorvastatin Calcium (Lipitor -) 20 mg PO HS [facility] Last Admin: 10/01/16 22:25 Dose: 20 mg Diltiazem HCl (Cardizem Cd -) 300 mg PO DAILY [facility] Last Admin: 10/02/16 10:42 Dose: 300 mg Ferrous Sulfate (Feosol -) 325 mg PO DAILY [facility] Last Admin: 10/02/16 10:42 Dose: 325 mg Guaifenesin (Diabetic Tussin Dm -) 5 ml PO Q6H PRN PRN Reason: COUGH Last Admin: 09/23/16 10:20 Dose: 5 ml IV Flush (Neeta-Cath Flush) 10 ml IVPUSH PRN PRN PRN Reason: FLUSH Last Admin: 09/30/16 15:18 Dose: 10 ml Carboplatin 240 mg/ Sodium (Chloride) 250 mls @ 500 mls/hr IVPB ONCE ONE Stop: 10/02/16 11:59 Insulin Aspart (Novolog Vial Sliding Scale -) 1 vial SQ ACHS VIRGILIO PRN Reason: Protocol Last Admin: 10/02/16 06:00 Dose: 2 unit Levothyroxine Sodium (Synthroid -) 75 mcg PO DAILY@0700 [facility] Last Admin: 10/02/16 06:00 Dose: 75 mcg Montelukast Sodium (Singulair -) 10 mg PO HS [facility] Last Admin: 10/01/16 22:22 Dose: 10 mg Nystatin (Nystop Powder -) 1 applic TP BID [facility] Last Admin: 10/02/16 10:43 Dose: 1 applic [id number] Ethyl Esters (Lovaza -) 1 gm PO TID [facility] Last Admin: 10/02/16 05:49 Dose: 1 gm Ondansetron HCl (Zofran -) 8 mg PO Q8H PRN PRN Reason: NAUSEA Senna (Senna -) 1 tab PO DAILY PRN Last Admin: 10/01/16 12:30 Dose: 1 tab Spironolactone (Aldactone -) 50 mg PO DAILY [facility] Last Admin: 10/02/16 10:42 Dose: 50 mg Warfarin Sodium 2.5 mg/ (Warfarin Sodium 1 mg) 3.5 mg PO DAILY@1800 [facility] - Objective Vital Signs: Vital Signs Temperature 98 F 10/02/16 05:20 Pulse Rate 82 10/02/16 05:20 Respiratory Rate 20 10/02/16 05:20 Blood Pressure 112/60 10/02/16 05:20 O2 Sat by Pulse Oximetry (%) 98 10/01/16 21:00 Eyes: Yes: WNL, Conjunctiva Clear, EOM Intact HENT: Yes: WNL, Atraumatic, Normocephalic Neck: Yes: WNL, Supple, Trachea Midline Cardiovascular: Yes: Pulse Irregular, S1, S2 Respiratory: Yes: WNL, Regular, CTA Bilaterally Gastrointestinal: Yes: WNL, Normal Bowel Sounds Genitourinary: Yes: WNL Musculoskeletal: Yes: WNL Extremities: Yes: WNL Edema: Yes Integumentary: Yes: WNL Neurological: Yes: WNL, Alert, Oriented ...Motor Strength: WNL Psychiatric: Yes: WNL Labs: CBC, BMP 09/30/16 06:00 10/02/16 06:00 INR, PTT INR 1.99 (0.82-1.09) H 10/02/16 06:00 Problem List - Problems (1) A-fib Code(s): I48.91 - UNSPECIFIED ATRIAL FIBRILLATION (2) Acute dyspnea Code(s): R06.00 - DYSPNEA, UNSPECIFIED (3) Acute renal insufficiency Code(s): N28.9 - DISORDER OF KIDNEY AND URETER, UNSPECIFIED (4) CHF exacerbation Code(s): I50.9 - HEART FAILURE, UNSPECIFIED (5) Cellulitis Code(s): L03.90 - CELLULITIS, UNSPECIFIED Qualifiers: Site of cellulitis: extremity Site of cellulitis of extremity: lower extremity Laterality: left Qualified Code(s): L03.116 - Cellulitis of left lower limb (6) HTN (hypertension) Code(s): I10 - ESSENTIAL (PRIMARY) HYPERTENSION (7) Morbidly obese Code(s): E66.01 - MORBID (SEVERE) OBESITY DUE TO EXCESS CALORIES (8) Pleural effusion Code(s): J90 - PLEURAL EFFUSION, NOT ELSEWHERE CLASSIFIED (9) Pulmonary nodules/lesions, multiple Code(s): R91.8 - OTHER NONSPECIFIC ABNORMAL FINDING OF LUNG FIELD (10) Supratherapeutic INR Code(s): R79.1 - ABNORMAL COAGULATION PROFILE (11) Hypothyroid Code(s): E03.9 - HYPOTHYROIDISM, UNSPECIFIED (12) Lymphedema Code(s): I89.0 - LYMPHEDEMA, NOT ELSEWHERE CLASSIFIED (13) Hematuria Code(s): R31.9 - HEMATURIA, UNSPECIFIED
--- NOTE | 2016-10-02 14:55 | PN ---
Progress Note, Physician History of Present Illness: pulmonary alert,oob-chair,-sob,depressed - Current Medication List Current Medications: Active Medications Aclidinium [place] (Tudorza -) 1 puff IH BID [facility] Last Admin: 10/02/16 10:43 Dose: 1 puff Albuterol Sulfate (Ventolin 0.083% Nebulizer Soln -) 1 amp NEB Q6H PRN PRN Reason: SHORT OF BREATH/WHEEZING Last Admin: 09/29/16 10:38 Dose: 1 amp Atorvastatin Calcium (Lipitor -) 20 mg PO HS [facility] Last Admin: 10/01/16 22:25 Dose: 20 mg Diltiazem HCl (Cardizem Cd -) 300 mg PO DAILY [facility] Last Admin: 10/02/16 10:42 Dose: 300 mg Ferrous Sulfate (Feosol -) 325 mg PO DAILY [facility] Last Admin: 10/02/16 10:42 Dose: 325 mg Guaifenesin (Diabetic Tussin Dm -) 5 ml PO Q6H PRN PRN Reason: COUGH Last Admin: 09/23/16 10:20 Dose: 5 ml IV Flush (Neeta-Cath Flush) 10 ml IVPUSH PRN PRN PRN Reason: FLUSH Last Admin: 09/30/16 15:18 Dose: 10 ml Insulin Aspart (Novolog Vial Sliding Scale -) 1 vial SQ ACHS [facility] PRN Reason: Protocol Last Admin: 10/02/16 14:03 Dose: 4 unit Levothyroxine Sodium (Synthroid -) 75 mcg PO DAILY@0700 [facility] Last Admin: 10/02/16 06:00 Dose: 75 mcg Montelukast Sodium (Singulair -) 10 mg PO [facility] Last Admin: 10/01/16 22:22 Dose: 10 mg Nystatin (Nystop Powder -) 1 applic TP BID [facility] Last Admin: 10/02/16 10:43 Dose: 1 applic [id number]-[id number] Ethyl Esters (Lovaza -) 1 gm PO TID [facility] Last Admin: 10/02/16 05:49 Dose: 1 gm Ondansetron HCl (Zofran -) 8 mg PO Q8H PRN PRN Reason: NAUSEA Senna (Senna -) 1 tab PO DAILY PRN Last Admin: 10/01/16 12:30 Dose: 1 tab Spironolactone (Aldactone -) 50 mg PO DAILY [facility] Last Admin: 10/02/16 10:42 Dose: 50 mg Warfarin Sodium 2.5 mg/ (Warfarin Sodium 1 mg) 3.5 mg PO DAILY@1800 [facility] - Objective Vital Signs: Vital Signs Temperature 98.8 F 10/02/16 14:43 Pulse Rate 72 10/02/16 14:43 Respiratory Rate 20 10/02/16 14:43 Blood Pressure 102/51 10/02/16 14:43 O2 Sat by Pulse Oximetry (%) 99 10/02/16 10:30 Constitutional: Yes: Well Nourished, Calm Eyes: Yes: WNL HENT: Yes: WNL Cardiovascular: Yes: Pulse Irregular, S1, S2 Respiratory: Yes: CTA Bilaterally Gastrointestinal: Yes: Normal Bowel Sounds, Soft Extremities: Yes: WNL Edema: Yes Labs: CBC, BMP 09/30/16 06:00 10/02/16 06:00 INR, PTT INR 1.99 (0.82-1.09) H 10/02/16 06:00 Problem List - Problems (1) A-fib Code(s): I48.91 - UNSPECIFIED ATRIAL FIBRILLATION (2) Acute dyspnea Code(s): R06.00 - DYSPNEA, UNSPECIFIED (3) HTN (hypertension) Code(s): I10 - ESSENTIAL (PRIMARY) HYPERTENSION (4) Morbidly obese Code(s): E66.01 - MORBID (SEVERE) OBESITY DUE TO EXCESS CALORIES (5) Pleural effusion Code(s): J90 - PLEURAL EFFUSION, NOT ELSEWHERE CLASSIFIED (6) Hypothyroid Code(s): E03.9 - HYPOTHYROIDISM, UNSPECIFIED (7) Lymphedema Code(s): I89.0 - LYMPHEDEMA, NOT ELSEWHERE CLASSIFIED (8) Pulmonary nodules/lesions, multiple Code(s): R91.8 - OTHER NONSPECIFIC ABNORMAL FINDING OF LUNG FIELD (9) Anxiety and depression Code(s): F41.9 - ANXIETY DISORDER, UNSPECIFIED F32.9 - MAJOR DEPRESSIVE DISORDER, SINGLE EPISODE, UNSPECIFIED (10) Cancer Code(s): C80.1 - MALIGNANT (PRIMARY) NEOPLASM, UNSPECIFIED Assessment/Plan A/P Metastatic Adenocarcinoma of Mullerian origin Malignant Left Pleural Effusion s/p L VATS/pleur-x placement Bilateral Lung Nodules metastatic Atrial Fibrillation CHF HTN DM Morbid Obesity - antiemetics - can cap pleur-x catheter and drain depending on symptoms, since there is increased drainage, may need drainage q2-3 days initially - anticoagulation - O2 as needed - DVT prophylaxis - chemo as per oncology DR KATE
[2016-10-02] MEDS ORDERED: ONDANSETRON 4 MG/2 ML VIAL IVPB PRN (15:36)
[2016-10-02] MEDS ORDERED: PROCHLORPERAZINE MALEATE 5 MG TABLET PO PRN (15:37)
[2016-10-02] MEDS ORDERED: WARFARIN NA 1 MG TABLET (FP) ONE (17:51)
[2016-10-02] MEDS ORDERED: WARFARIN NA 2.5 MG TABLET (FP) ONE (17:51)
[2016-10-02] MEDS ORDERED: SODIUM CHLORIDE 500 ML IV SCH (18:00)
[2016-10-02] MEDS ORDERED: WARFARIN NA 2.5 MG, WARFARIN NA 1 MG PO SCH (18:00)
--- NOTE | 2016-10-02 18:18 | PN ---
Physical Exam: SUBJECTIVE: Patient seen and examined by me at bedside. Patient reports she was able to finish her whole plate of oatmeal for breakfast, which is the most shes eaten in over two weeks. Patient reports the cough and nausea has improved. Otherwise, denies fever, chills, nausea, vomiting, abdominal pain, chest pain, palpitations, shortness of breath. OBJECTIVE: Vital Signs Period Temp Pulse Resp BP Sys/Dinero Pulse Ox Last 24 Hr 97.3 F-98.8 F 65-95 20-20 102-124/51-76 96-99 GENERAL: The patient is awake, alert, and fully oriented, in no acute distress. LUNGS: Decreased breath sounds throughout left lung bases, no crackles or wheezes. Left chest tube draining. HEART: Irregularly irregular, normal S1 and S2 without murmur, rub or gallop. Left chemoport placement bandage ABDOMEN: Soft, Obese, nontender, nondistended, normoactive bowel sounds. EXTREMITIES: B/L lower extremity chronic venous changes with lymphedema Laboratory Results - last 24 hr 10/01/16 10/01/16 10/02/16 11:39 22:28 05:48 INR Sodium Potassium Chloride Carbon Dioxide Anion Gap BUN Creatinine POC Glucometer 292 270 207 Random Glucose Calcium 10/02/16 10/02/16 10/02/16 06:00 06:00 11:13 INR 1.99 H Sodium 133 L Potassium 4.5 Chloride 96 L Carbon Dioxide 28 Anion Gap 9 BUN 14 Creatinine 0.8 POC Glucometer 275 Random Glucose 225 H Calcium 9.7 Active Medications Generic Name Dose Route Start Last Admin Trade Name Freq PRN Reason Stop Dose Admin Aclidinium [place] 1 puff 09/20/16 22:00 10/02/16 10:43 Tudorza - IH 1 puff BID VIRGILIO Administration Albuterol Sulfate 1 amp 09/28/16 10:51 09/29/16 10:38 Ventolin 0.083% Nebulizer Soln - NEB 1 amp Q6H PRN Administration SHORT OF BREATH/WHEEZING Atorvastatin Calcium 20 mg 09/20/16 22:00 10/01/16 22:25 Lipitor - PO 20 mg HS VIRGILIO Administration Diltiazem HCl 300 mg 09/21/16 10:00 10/02/16 10:42 Cardizem Cd - PO 300 mg DAILY VIRGILIO Administration Ferrous Sulfate 325 mg 09/21/16 10:00 10/02/16 10:42 Feosol - PO 325 mg DAILY VIRGILIO Administration Guaifenesin 5 ml 09/20/16 11:41 09/23/16 10:20 Diabetic Tussin Dm - PO 5 ml Q6H PRN Administration COUGH IV Flush 10 ml 09/23/16 18:50 09/30/16 15:18 Neeta-Cath Flush IVPUSH 10 ml PRN PRN Administration FLUSH Insulin Aspart 1 vial 09/20/16 16:30 10/02/16 18:03 Novolog Vial Sliding Scale - SQ 4 unit ACHS VIRGILIO Administration Protocol Levothyroxine Sodium 75 mcg 09/21/16 07:00 10/02/16 06:00 Synthroid - PO 75 mcg DAILY@0700 VIRGILIO Administration Montelukast Sodium 10 mg 09/20/16 22:00 10/01/16 22:22 Singulair - PO 10 mg HS VIRGILIO Administration Nystatin 1 applic 09/21/16 02:45 10/02/16 10:43 Nystop Powder - TP 1 applic BID VIRGILIO Administration [id number]-[id number] Ethyl Esters 1 gm 09/20/16 14:00 10/02/16 15:01 Lovaza - PO 1 gm TID VIRGILIO Administration Ondansetron HCl 8 mg 10/02/16 15:36 Zofran Injection IVPB Q12H PRN NAUSEA Pantoprazole Sodium 40 mg 10/03/16 10:00 Protonix - PO DAILY VIRGILIO Prochlorperazine Maleate 10 mg 10/02/16 15:37 Compazine - PO Q8H PRN NAUSEA AND/OR VOMITING Senna 1 tab 09/20/16 11:41 10/01/16 12:30 Senna - PO 1 tab DAILY PRN Administration Spironolactone 50 mg 09/21/16 10:00 10/02/16 10:42 Aldactone - PO 50 mg DAILY VIRGILIO Administration Warfarin Sodium 2.5 mg/ 3.5 mg 10/02/16 18:00 10/02/16 18:03 Warfarin Sodium 1 mg PO 3.5 mg DAILY@1800 VIRGILIO Administration Images: Chest X-ray (09/08/16): Moderate left pleural effusion with compressive atelectasis. Multiple lung nodules - lung metastasis. Chest CT w/ Contrast (09/08/16): Innumerable bilateral pulmonary nodules, moderate to large left pleural effusion, and mediastinal and hilar lymphadenopathy are highly suspicious for metastatic disease. 2.9 cm hypodense mass is seen in the left lobe of the liver. Thoracocentesis under U/S guide (09/09/16) Chest X-ray (09/09/16): Decreased Pleural Effusion. No Pneumothorax seen. CT Abdomen and pelvis (09/10/16): CT abd/pelvis shows multiple metastatic pulmonary nodules, moderate left pleural effusion, hypodense left hepatic lobe mass, possible hypodense right hepatic lobe mass, diverticulosis CHEST X-RAY (09/20/16): Left lower lobe consolidation and probable left pleural effusion. CHEST X-RAY (09/25/16): There is slightly better aeration of the left lung base CHEST X-RAY (09/29/16): Imaging reveals diffuse bilateral nodular densities compatible with metastatic disease, prominent mediastinum, left port with tip in right atrium, chin artifact and left chest tube. ASSESSMENT/PLAN: Patient is a 61 year old female with PMHx of HTN, A.fib on Coumadin, DMII, CHF, COPD, GERD and hypothyroidism who presented for dyspnea and was found to have a large left pleural effusion with multiple nodules on chest x-ray. Patient admitted for further monitoring and management. Dyspnea Secondary to Malignant Pleural Effusions - Improving -S/P thoracentesis 09/09/16 and cytology was positive for malignant cells. Involvement by Adenocarcinoma, most consistent with Mullerian origin -S/P Left VATS/L pleurex 09/17/16 with 2L of serosanguinous fluid removed. Drained 130 in last 24 hours. -Plan to cap Pleur-x prior to discharge and VNS every 2-3 days -Continue O2 PRN -Albuterol PRN -CT surgery consult appreciated Stage 4 Adenocarcinoma of Ovarian Origin -With mets to the lungs and liver -S/P liver biopsy 09/12/16 showing serous carcinoma -Second chemo session today -Oncology consult appreciated. -Vascular consult appreciated Nausea- Improving -Likely secondary to chemotherapy -Zofran 4mg PRN Supratherapeutic INR- Improved -Today 1.99 -Increase Coumadin to 3.5mg. -Repeat INR before discharge and will need to be checked by two days later Apathetic/Loss of appetite -Possible depression -Likely due to new diagnosis of Ovarian cancer -Spoke to Clinical Psychologist. Dr. Trevino, who reports patient has major depression at a severe level with anxiety due to her newly diagnosis of ovarian cancer. Reports she is very receptive to psychological treatment. -Will continue inpatient treatment and will follow up with him in outpatient clinic once discharged Anticholinergic Syndrome- Resolved -Will continue to monitor Asthma/COPD- Chronic -No history of smoking -Continue with Albuterol PRN -Continue 02 PRN -Pulmonology consult appreciated Hypomagnesemia-resolved -Will continue to monitor Atrial Fibrillation -Rate controlled -Continue Diltiazem Cd 300mg daily -Coumadin 3.5mg today Systolic CHF- Chronic -No acute exacerbation at the time -Aldactone 50mg daily -Daily weight -Hold lasix for hypotension DMII -Controlled -BGM ACHS -Novolog sliding scale HTN -Borderline Hypotensive -Hold Losartan 50mg daily -Hold Lasix -Continue to monitor BP HLD -Continue Lipitor 20mg Hypothyroidism -Continue Levothyroxine 75mcg daily GERD -Continue Ranitidine 150mg BID Morbid Obesity -Bariatric referral as outpatient F/E/N -On no fluids -Electrolytes wnl -Diabetic diet Prophylaxis -INR 1.99 today, Coumadin 3.5mg. Disposition -Second chemo session today. Likely dc tomorrow Visit type - Emergency Visit Emergency Visit: Yes ED Registration Date: 09/08/16 Care time: The patient presented to the Emergency Department on the above date and was hospitalized for further evaluation of their emergent condition. - New Patient This patient is new to me today: No - Critical Care Critical Care patient: No
--- NOTE | 2016-10-02 21:32 | PN ---
Progress Note (short form) - Note Progress Note: Patient seen and examined ambulating chest stube still draining AFVSS Cor: RSR, No murmurs, No gallops Lungs: Clear to P&A Abd: Soft, Normal bowel sounds, No organomegaly Ext:No significant edema labs/Meds reviewed A/P Metasatic mullerian cancer, pleural effusion, s/p VATS/chest tube Received carboplatin AUC=2 and taxol 60mg/m2 for W2 today plenty of hydration, oral For zofran IVPB neupogen prior to discharge will need f/u of chest tube
[2016-10-02] MEDS: ATORVASTATIN CA 20 MG TABLET (FP) PO SCH (21:37)
[2016-10-02] MEDS: MONTELUKAST NA 10 MG TABLET PO SCH (21:37)
--- NOTE | 2016-10-02 23:56 | PN ---
Progress Note (short form) - Note Progress Note: called by nurse due to patient finger stick glucose 450s; she gave 10U insulin; stat BMP ordered to eval anion gap. Re eval fingerstick in three hrs. Nurse advised to page me with results.
[2016-10-03 00:37] LABS: COCKROFT - GAULT 152.456
[2016-10-03] MEDS: OMEGA-3 ACID ETHYL ESTERS (FATTY-ACIDS) 1 GM CAPSULE (FP) PO SCH ×2 (06:24→16:21)
[2016-10-03] MEDS: LEVOTHYROXINE NA 75 MCG TABLET (FP) PO SCH (06:24)
[2016-10-03] MEDS: INSULIN SLIDING SCALE (NOVOLOG) 1 VIAL SQ SCH ×3 (06:28→16:45)
[2016-10-03 08:05] LABS: INR 2.23 (0.82-1.09); PROTHROMBIN TIME (PATIENT) 24.9 SEC (9.98-11.88)
--- NOTE | 2016-10-03 09:17 | PN ---
Progress Note (short form) - Note Progress Note: OOB to wheelchair. Breathing feels ok. PleureX capped. No CP or SOB. Intake & Output 09/30/16 10/01/16 10/02/16 10/03/16 23:59 23:59 23:59 23:59 Intake Total 760 840 290 Output Total 175 425 155 Balance 585 415 135 Weight 357 lb 4.8 oz 360 lb 6.4 oz 356 lb Last Vital Signs Temp Pulse Resp BP Pulse Ox 98.9 F 67 18 112/56 95 10/03/16 08:55 10/03/16 08:55 10/03/16 08:55 10/03/16 08:55 10/02/16 21:00 Active Medications Aclidinium [place] (Tudorza -) 1 puff IH BID [facility] Last Admin: 10/02/16 21:41 Dose: 1 puff Albuterol Sulfate (Ventolin 0.083% Nebulizer Soln -) 1 amp NEB Q6H PRN PRN Reason: SHORT OF BREATH/WHEEZING Last Admin: 09/29/16 10:38 Dose: 1 amp Atorvastatin Calcium (Lipitor -) 20 mg PO HS [facility] Last Admin: 10/02/16 21:37 Dose: 20 mg Diltiazem HCl (Cardizem Cd -) 300 mg PO DAILY [facility] Last Admin: 10/02/16 10:42 Dose: 300 mg Ferrous Sulfate (Feosol -) 325 mg PO DAILY [facility] Last Admin: 10/02/16 10:42 Dose: 325 mg Guaifenesin (Diabetic Tussin Dm -) 5 ml PO Q6H PRN PRN Reason: COUGH Last Admin: 09/23/16 10:20 Dose: 5 ml IV Flush (Neeta-Cath Flush) 10 ml IVPUSH PRN PRN PRN Reason: FLUSH Last Admin: 09/30/16 15:18 Dose: 10 ml Insulin Aspart (Novolog Vial Sliding Scale -) 1 vial SQ ACHS [facility] PRN Reason: Protocol Last Admin: 10/03/16 06:28 Dose: 8 unit Levothyroxine Sodium (Synthroid -) 75 mcg PO DAILY@0700 [facility] Last Admin: 10/03/16 06:24 Dose: 75 mcg Montelukast Sodium (Singulair -) 10 mg PO HS [facility] Last Admin: 10/02/16 21:37 Dose: 10 mg Nystatin (Nystop Powder -) 1 applic TP BID [facility] Last Admin: 10/02/16 21:41 Dose: 1 applic Mivkw-1-Diop Ethyl Esters (Lovaza -) 1 gm PO TID [facility] Last Admin: 10/03/16 06:24 Dose: 1 gm Ondansetron HCl (Zofran Injection) 8 mg IVPB Q12H PRN PRN Reason: NAUSEA Pantoprazole Sodium (Protonix -) 40 mg PO DAILY [facility] Prochlorperazine Maleate (Compazine -) 10 mg PO Q8H PRN PRN Reason: NAUSEA AND/OR VOMITING Senna (Senna -) 1 tab PO DAILY PRN Last Admin: 10/01/16 12:30 Dose: 1 tab Spironolactone (Aldactone -) 50 mg PO DAILY [facility] Last Admin: 10/02/16 10:42 Dose: 50 mg Warfarin Sodium 2.5 mg/ (Warfarin Sodium 1 mg) 3.5 mg PO DAILY@1800 [facility] Last Admin: 10/02/16 18:03 Dose: 3.5 mg Constitutional: Yes: NAD Eyes: Yes: WNL HENT: Yes: WNL Neck: Yes: Supple Cardiovascular: Yes: Pulse Irregular, S1, S2 Respiratory: decreased BS at the bases, Left Pleure-X capped Extremities: Yes: WNL Edema: Yes Labs: Laboratory Results - last 24 hr 10/02/16 10/02/16 10/02/16 11:13 21:35 21:36 INR Sodium Potassium Chloride Carbon Dioxide Anion Gap BUN Creatinine POC Glucometer 275 467 442 Random Glucose Calcium 10/02/16 10/02/16 10/03/16 22:22 22:22 01:20 INR Sodium 129 L Potassium 4.9 Chloride 93 L Carbon Dioxide 24 Anion Gap 12 BUN 16 Creatinine 1.0 D POC Glucometer 362 Random Glucose 453 H* D 462 H* Calcium 9.0 10/03/16 10/03/16 06:00 06:26 INR 2.23 H Sodium Potassium Chloride Carbon Dioxide Anion Gap BUN Creatinine POC Glucometer 346 Random Glucose Calcium Problem List - Problems (1) A-fib Code(s): I48.91 - UNSPECIFIED ATRIAL FIBRILLATION (2) Acute dyspnea Code(s): R06.00 - DYSPNEA, UNSPECIFIED (3) HTN (hypertension) Code(s): I10 - ESSENTIAL (PRIMARY) HYPERTENSION (4) Morbidly obese Code(s): E66.01 - MORBID (SEVERE) OBESITY DUE TO EXCESS CALORIES (5) Pleural effusion Code(s): J90 - PLEURAL EFFUSION, NOT ELSEWHERE CLASSIFIED (6) Hypothyroid Code(s): E03.9 - HYPOTHYROIDISM, UNSPECIFIED (7) Lymphedema Code(s): I89.0 - LYMPHEDEMA, NOT ELSEWHERE CLASSIFIED (8) Pulmonary nodules/lesions, multiple Code(s): R91.8 - OTHER NONSPECIFIC ABNORMAL FINDING OF LUNG FIELD Assessment/Plan IMP DYSPNEA IMPROVED LARGE LEFT PLEURAL EFFUSION MALIGNANT BILATERAL PULMONARY NODULES C/W METS PRIMARY GYNECOLOGIC CHF AFIB HTN DM H/O ASTHMA HYPOTHYROID MORBID OBESITY PLAN PLEUREX CAPPED -> VNS FOR PERIODIC DRAINAGE (SUSPECT AT LEAST 3 TIMES PER WEEK INITIALLY) NASAL O2 INHALED BRONCHODILATORS D/C PLANNING NEED TO CHECK PRE AND POST O2 SATURATION TO ASSESS NEED FOR HOME O2 DR SHETH
[2016-10-03] MEDS ORDERED: PANTOPRAZOLE 40 MG TABLET (FP) PO SCH (10:00)
[2016-10-03] MEDS: ACLIDINIUM BROMIDE 400 MCG/INH AERO.POWD IH SCH (10:19)
[2016-10-03] MEDS: NYSTATIN POWDER 100,000 UNITS/GM - 15 GM TOPICAL POWDER TP SCH (10:20)
[2016-10-03] MEDS: FERROUS SO4 325 MG TABLET (FP) PO SCH (10:20)
[2016-10-03] MEDS: SPIRONOLACTONE 25 MG TABLET (FP) PO SCH (10:20)
[2016-10-03 10:23] LABS: MCH 24.3 pg (25.7-33.7); MCHC 31.5 g/dl (32.0-36.0); PLATELET COUNT 212 K/MM3 (134-434); WHITE BLOOD COUNT 5.7 K/mm3 (4.0-10.0)
--- NOTE | 2016-10-03 11:15 | PN ---
Progress Note, Physician History of Present Illness: The patient is a 61 year old female, with a significant past medical history of Hypertension (on Cardizem), AFIB, diabetes, CHF, COPD, GERD and hypothyroidism , who presents to the emergency department on with SOB for few days. Patient saw her PMD 2 days ago with the same complaint who was supposed to prescribe her breathing treatment pumps, but patient states that the pumps were never sent by her doctor which prompted her to present to the ED. Patient denies any new leg swelling. Patient reports orthopnea and states that she sleeps with 2 pillows. She notes that she is cold but denies any fever. She reports normal bowel movements. Duringh hospital course she was diagnosed with; 1. 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 Permanent atrial fibrillation - Continue Cardizem CD for rate control - Continue Coumadin 3. Hypomagnesemia - Improved 4. Morbid obesity with BMI 62.4 5. Hypothyroidism - Continue Synthroid 6. Type 2 DM - Continue Novolog sliding scale 7. HTN - Continue Cardizem - Cozaar, Aldactone held secondary to low BP and increasing creatinine 8. Hyperlipidemia - Continue Lipitor, Lovaza 9. COPD - Continue Tudorza, Singulair, Albuterol as needed 10. Chronic systolic heart failure - Cozaar, Aldactone held secondary to low BP - Current Medication List Current Medications: Active Medications Aclidinium [place] (Tudorza -) 1 puff IH BID [facility] Last Admin: 10/03/16 10:19 Dose: 1 puff Albuterol Sulfate (Ventolin 0.083% Nebulizer Soln -) 1 amp NEB Q6H PRN PRN Reason: SHORT OF BREATH/WHEEZING Last Admin: 09/29/16 10:38 Dose: 1 amp Atorvastatin Calcium (Lipitor -) 20 mg PO HS [facility] Last Admin: 10/02/16 21:37 Dose: 20 mg Diltiazem HCl (Cardizem Cd -) 300 mg PO DAILY [facility] Last Admin: 10/03/16 10:20 Dose: 300 mg Ferrous Sulfate (Feosol -) 325 mg PO DAILY [facility] Last Admin: 10/03/16 10:20 Dose: 325 mg Guaifenesin (Diabetic Tussin Dm -) 5 ml PO Q6H PRN PRN Reason: COUGH Last Admin: 09/23/16 10:20 Dose: 5 ml IV Flush (Neeta-Cath Flush) 10 ml IVPUSH PRN PRN PRN Reason: FLUSH Last Admin: 09/30/16 15:18 Dose: 10 ml Insulin Aspart (Novolog Vial Sliding Scale -) 1 vial SQ ACHS [facility] PRN Reason: Protocol Last Admin: 10/03/16 06:28 Dose: 8 unit Levothyroxine Sodium (Synthroid -) 75 mcg PO DAILY@0700 [facility] Last Admin: 10/03/16 06:24 Dose: 75 mcg Montelukast Sodium (Singulair -) 10 mg PO HS [facility] Last Admin: 10/02/16 21:37 Dose: 10 mg Nystatin (Nystop Powder -) 1 applic TP BID [facility] Last Admin: 10/03/16 10:20 Dose: 1 applic [id number] Ethyl Esters (Lovaza -) 1 gm PO TID [facility] Last Admin: 10/03/16 06:24 Dose: 1 gm Ondansetron HCl (Zofran Injection) 8 mg IVPB Q12H PRN PRN Reason: NAUSEA Pantoprazole Sodium (Protonix -) 40 mg PO DAILY [facility] Last Admin: 10/03/16 10:20 Dose: 40 mg Prochlorperazine Maleate (Compazine -) 10 mg PO Q8H PRN PRN Reason: NAUSEA AND/OR VOMITING Senna (Senna -) 1 tab PO DAILY PRN Last Admin: 10/01/16 12:30 Dose: 1 tab Spironolactone (Aldactone -) 50 mg PO DAILY [facility] Last Admin: 10/03/16 10:20 Dose: 50 mg Warfarin Sodium 2.5 mg/ (Warfarin Sodium 1 mg) 3.5 mg PO DAILY@1800 [facility] Last Admin: 10/02/16 18:03 Dose: 3.5 mg - Objective Vital Signs: Vital Signs Temperature 98.9 F 10/03/16 08:55 Pulse Rate 67 10/03/16 08:55 Respiratory Rate 18 10/03/16 08:55 Blood Pressure 112/56 10/03/16 08:55 O2 Sat by Pulse Oximetry (%) 95 10/02/16 21:00 Eyes: Yes: WNL, Conjunctiva Clear, EOM Intact HENT: Yes: WNL, Atraumatic, Normocephalic Neck: Yes: WNL, Supple, Trachea Midline Cardiovascular: Yes: WNL, Regular Rate and Rhythm Respiratory: Yes: Diminished Gastrointestinal: Yes: WNL, Normal Bowel Sounds Genitourinary: Yes: WNL Musculoskeletal: Yes: WNL Extremities: Yes: WNL Edema: Yes Integumentary: Yes: WNL Neurological: Yes: WNL, Alert, Oriented ...Motor Strength: WNL Psychiatric: Yes: WNL Labs: CBC, BMP 10/03/16 06:10 INR, PTT INR 2.23 (0.82-1.09) H 10/03/16 06:00 Problem List - Problems (1) A-fib Code(s): I48.91 - UNSPECIFIED ATRIAL FIBRILLATION (2) Acute dyspnea Code(s): R06.00 - DYSPNEA, UNSPECIFIED (3) Acute renal insufficiency Code(s): N28.9 - DISORDER OF KIDNEY AND URETER, UNSPECIFIED (4) CHF exacerbation Code(s): I50.9 - HEART FAILURE, UNSPECIFIED (5) Cellulitis Code(s): L03.90 - CELLULITIS, UNSPECIFIED Qualifiers: Site of cellulitis: extremity Site of cellulitis of extremity: lower extremity Laterality: left Qualified Code(s): L03.116 - Cellulitis of left lower limb (6) HTN (hypertension) Code(s): I10 - ESSENTIAL (PRIMARY) HYPERTENSION (7) Morbidly obese Code(s): E66.01 - MORBID (SEVERE) OBESITY DUE TO EXCESS CALORIES (8) Pleural effusion Code(s): J90 - PLEURAL EFFUSION, NOT ELSEWHERE CLASSIFIED (9) Pulmonary nodules/lesions, multiple Code(s): R91.8 - OTHER NONSPECIFIC ABNORMAL FINDING OF LUNG FIELD (10) Supratherapeutic INR Code(s): R79.1 - ABNORMAL COAGULATION PROFILE (11) Hypothyroid Code(s): E03.9 - HYPOTHYROIDISM, UNSPECIFIED (12) Lymphedema Code(s): I89.0 - LYMPHEDEMA, NOT ELSEWHERE CLASSIFIED (13) Hematuria Code(s): R31.9 - HEMATURIA, UNSPECIFIED Assessment/Plan Atrial fibrillation-HR controlled -Cont cardizem CD 300mg daily -holding warfarin for supratherapeutic INR, planned to resume when INR trends down to therapeutic range - CHF -plan for repeat echo as above -on diltiazem and spironolactone (monitor K levels, currently adequate) HTN-adequately controlled -cont current medical regimen Pleural effusion-malignant -s/p chest tube -as per pulm, CT surgery
[2016-10-03 11:33] LABS: COCKROFT - GAULT 188.2495; CREATININE 0.8 mg/dL (0.55-1.02)
[2016-10-03 11:34] LABS: ANION GAP 11 (8-16); CO2 24 mmol/L (21-32)
[2016-10-03 11:35] LABS: ALBUMIN 2.3 g/dl (3.4-5.0); ALK PHOS 119 U/L (45-117); BILIRUBIN,TOTAL 0.3 mg/dL (0.2-1.0); SGOT/AST 21 U/L (15-37); SGPT/ALT 21 U/L (12-78); TOT PROT 5.8 g/dl (6.4-8.2)
[2016-10-03 11:38] LABS: GLUCOSE,RANDOM 334 mg/dL (74-106)
[2016-10-03] MEDS ORDERED: INSULIN (NOVOLOG) ASPART 100 UNITS/ML 10ML VIAL ONE (12:10)
--- NOTE | 2016-10-03 12:13 | PN ---
Teaching Attending Note Name of Resident: Natasha Hodge ATTENDING PHYSICIAN STATEMENT I saw and evaluated the patient. I reviewed the resident's note and discussed the case with the resident. I agree with the resident's findings and plan as documented. SUBJECTIVE:currently asymptomatic. denies CP, SOB,fever, chills, N/V/C/D OBJECTIVE: Last Vital Signs Temp Pulse Resp BP Pulse Ox 98.9 F 67 18 112/56 95 10/03/16 08:55 10/03/16 08:55 10/03/16 08:55 10/03/16 08:55 10/02/16 21:00 General NAD Lungs CTA B/L no wheezing or crackles decreased breath sounds at bases ASSESSMENT AND PLAN: 61yo M with PMH HTN, atrial fib, hypothyroidism, COPD, type 2 DM and morbid obesity who presented to the ER for dyspnea on exertion. 1. 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 tolerated cycle #2 yesterday. plan for granix today prior to discharge. chest tube was capped yesterday, awaiting to see output over past day. will anticipate will need drainage 3x/ week. does not qualify for home O2 at this time. oncology, and pulmonary follow up as outpatient 2. Hyponatremia- Sodium stable 3. Permanent atrial fibrillation- INR therapeutic. received 1 dose of coumadin 3.5mg. will d/c on 3mg. will need INR check on friday. PMD notified. will likely require further adjustment. Continue Cardizem CD, Coumadin 4. Hypomagnesemia- Improved 5. Morbid obesity with BMI 60.0 6. Hypothyroidism- Continue Synthroid 7. Type 2 DM- elevated reading last night. currently above goal but overall has been improved this admission. possibly due to increased po intake the past few days. will d/c on metformin. will also prescribe novolog ss on discharge. educated need to check sugars at home and log it and to bring with her to PMD appt for further medication adjustment. 8. Chronic systolic heart failure-cont aldactone. ARB on hold due to hypotension 9. d/c planning home with VNS today.
[2016-10-03] MEDS ORDERED: TBO-FILGRASTIM 480 MCG/0.8 ML DISP.SYRIN SQ ONE (13:00)
[2016-10-03] MEDS ORDERED: PORTA CATH FLUSH 10 ML IVPUSH ONE (13:20)
[2016-10-03 14:33] VITALS: BP 110/52; PULSE 72; TEMP 98.2
--- NOTE | 2016-10-03 16:23 | DS ---
Physical Exam: SUBJECTIVE: Patient seen and examined by me at bedside. Patient reports mild nausea after chemotherapy but resolved shortly after Zofran. Patient was able to finish her breakfast this morning without nausea or vomiting. Otherwise, patient denies fever, chills, abdominal pain, chest pain, palpitations, shortness of breath, constipation, diarrhea, headaches, dizziness, hematuria, dysuria. OBJECTIVE: Vital Signs Period Temp Pulse Resp BP Sys/Dinero Pulse Ox Last 24 Hr 97.5 F-98.9 F 65-76 18-20 104-113/48-58 95-98 PHYSICAL EXAM GENERAL: The patient is awake, alert, and fully oriented, in no acute distress. LUNGS: Decreased breath sounds throughout left lung bases, no crackles or wheezes. Left chest tube with dressing c/d/i HEART: Irregularly irregular, normal S1 and S2 without murmur, rub or gallop. Left chemoport placement bandage ABDOMEN: Soft, Obese, nontender, nondistended, normoactive bowel sounds. EXTREMITIES: B/L lower extremity chronic venous changes with lymphedema LABS Laboratory Results - last 24 hr 10/02/16 10/02/16 10/02/16 21:35 21:36 22:22 WBC RBC Hgb Hct MCV MCHC RDW Plt Count MPV Neutrophils % Lymphocytes % Monocytes % Myelocytes Differential Comment INR Sodium Potassium Chloride Carbon Dioxide Anion Gap BUN Creatinine Creat Clearance w eGFR POC Glucometer 467 442 Random Glucose 453 H* D Calcium Total Bilirubin AST ALT Alkaline Phosphatase Total Protein Albumin 10/02/16 10/03/16 10/03/16 22:22 01:20 06:00 WBC RBC Hgb Hct MCV MCHC RDW Plt Count MPV Neutrophils % Lymphocytes % Monocytes % Myelocytes Differential Comment INR 2.23 H Sodium 129 L Potassium 4.9 Chloride 93 L Carbon Dioxide 24 Anion Gap 12 BUN 16 Creatinine 1.0 D Creat Clearance w eGFR POC Glucometer 362 Random Glucose 462 H* Calcium 9.0 Total Bilirubin AST ALT Alkaline Phosphatase Total Protein Albumin 10/03/16 10/03/16 10/03/16 06:10 06:10 06:26 WBC 5.7 RBC 4.51 Hgb 10.9 Hct 34.7 MCV 77.0 L MCHC 31.5 L RDW 17.0 H Plt Count 212 MPV 10.0 Neutrophils % 88.0 H Lymphocytes % 10.0 D Monocytes % 1.0 L Myelocytes 1 Differential Comment Manual diff done INR Sodium 131 L Potassium 4.8 Chloride 96 L Carbon Dioxide 24 Anion Gap 11 BUN 16 Creatinine 0.8 Creat Clearance w eGFR > 60 POC Glucometer 346 Random Glucose 334 H* D Calcium 9.0 Total Bilirubin 0.3 D AST 21 D ALT 21 Alkaline Phosphatase 119 H Total Protein 5.8 L Albumin 2.3 L 10/03/16 11:51 WBC RBC Hgb Hct MCV MCHC RDW Plt Count MPV Neutrophils % Lymphocytes % Monocytes % Myelocytes Differential Comment INR Sodium Potassium Chloride Carbon Dioxide Anion Gap BUN Creatinine Creat Clearance w eGFR POC Glucometer 346 Random Glucose Calcium Total Bilirubin AST ALT Alkaline Phosphatase Total Protein Albumin Images: Chest X-ray (09/08/16): Moderate left pleural effusion with compressive atelectasis. Multiple lung nodules - lung metastasis. Chest CT w/ Contrast (09/08/16): Innumerable bilateral pulmonary nodules, moderate to large left pleural effusion, and mediastinal and hilar lymphadenopathy are highly suspicious for metastatic disease. 2.9 cm hypodense mass is seen in the left lobe of the liver. Thoracocentesis under U/S guide (09/09/16) Chest X-ray (09/09/16): Decreased Pleural Effusion. No Pneumothorax seen. CT Abdomen and pelvis (09/10/16): CT abd/pelvis shows multiple metastatic pulmonary nodules, moderate left pleural effusion, hypodense left hepatic lobe mass, possible hypodense right hepatic lobe mass, diverticulosis CHEST X-RAY (09/20/16): Left lower lobe consolidation and probable left pleural effusion. CHEST X-RAY (09/25/16): There is slightly better aeration of the left lung base CHEST X-RAY (09/29/16): Imaging reveals diffuse bilateral nodular densities compatible with metastatic disease, prominent mediastinum, left port with tip in right atrium, chin artifact and left chest tube. HOSPITAL COURSE: Patient is a 61 year old female with PMHx of HTN, A.fib on Coumadin, DMII, CHF, COPD, GERD and hypothyroidism who presented for dyspnea and was found to have a large left pleural effusion with multiple nodules on chest x-ray. Patient had a thoracentesis on 09/09/16 and cytology was positive for malignant cells. Involvement by Adenocarcinoma, consistent with Mullerian origin. Patient diagnosed with stage 4 ovarian cancer with mets to the lung and liver. Patient continued to have malignant pleural effusions and S/P Left VATS/L pleurex on with continuous drainage. Patient was seen by oncologist and started on chemotherapy inpatient with two sessions completed. Throughout her hospital stay patient had fluctuating INR changes which required changes in her Warfarin dosages. Patient's dosage of warfarin was adjusted with new dosage sent to pharmacy. Patient requires further need for pleurx and will be discharged with the pleurx. Visiting nurse services will be seeing patient every 2-3 days for pleurx drainage and care and INR checks. Patient was scheduled for follow up appointments with PCP and oncologist. All new medications were sent to her pharmacy and explained in detail all the changes made. Patient stable for discharge and will be sent by ambulate. Patient's daughter and patient verbalized understanding. Date of Admission:09/08/16 Date of Discharge: 10/03/16 Minutes to complete discharge: 45 Discharge Summary Reason For Visit: ACUTE ON CHRONIC CINGESTIVE HEART FAILURE/MORBID O Current Active Problems A-fib (Acute) Acute dyspnea (Acute) Acute renal insufficiency (Acute) Anxiety and depression (Acute) CHF exacerbation (Acute) Cancer (Acute) Cellulitis (Acute) Diabetes (Acute) HTN (hypertension) (Acute) Morbidly obese (Acute) Pleural effusion (Acute) Pulmonary nodules/lesions, multiple (Acute) Supratherapeutic INR (Acute) Hypothyroid (Chronic) Lymphedema (Chronic) Condition: Stable - Instructions Diet, Activity, Other Instructions: -You were admitted for shortness of breath and found to have Ovarian cancer. A chest tube was placed and you will have a visiting nurse come by every 2-3 days to drain the chest tube. -You completed two sessions of chemotherapy here and will continue chemotherapy on weekly basis. Please call your oncologist for an appointment this upcoming Friday (10/07/16) at her office for a follow up. -During your hospital course your INR was fluctuating. Right now your INR is stable but will need to be monitored for the next couple of weeks. The visiting nurse will be checking it. Your dose has been changed to 3mg. A prescription will be sent out. -You were also found to have low blood pressure and your medication Losartan and Lasix will be discontinued. You may resume Aldactone with same dosage -Your sugar levels have been elevated the last couple of days due to the steroids given to you before chemotherapy. You will also be prescribed a Glucometer with strips to check your sugars three times a day. Document your sugars and the amount the insulin you take three times a day. Bring this log with you to your next doctors appointment. At the end of this paper you will see a scale of how many units to inject. -You will need to make appointments with your doctors once you are discharged for follow ups. A list of doctors and their contact information will be provided in your discharge packet. Here is a list of the names of the doctors and their specialty. -Oncologist requested that you monitor your temperature everyday with a thermometer. A prescription will be sent to your pharmacy -You will need a walker for assistance and a written prescription will be given to you. Oncologist: Dr. Angela Starkey Pulmonologists (Lung doctor): Dr. Garcia, Dr. Castorena, Dr. Love, Dr. An ( all in the same group) Cardiologists (Heart doctor): Dr. Shipley, Dr. Clayton Psychologist: Dr. Uriel Vital Primary Care Physician: Dr. Perez Cardio-Thoracic Surgeon: Dr. Méndez -You may resume your regular diet. A prescription for Glucerna will be prescribed to your pharmacy -If you have any worsening symptoms such as shortness of breath, severe chest pain, Profuse bleeding from insertion site, please return to the emergency department. INSTRUCTIONS FOR PLEURX/CHEST TUBE CARE -Daily cleaning near insertion site with soap and water. Change the dressing daily. Insulin Sliding Scale Instruction: Blood Sugar Level Dose to administer in Units <200 0 201-250 2 251-300 4 301-350 6 351-400 8 >400 10 Referrals: Aakash Garcia MD [Staff Physician] - Robin Trevino PSYD [Psychologist] - Sandor Shipley MD [Staff Physician] - Angela Starkey MD [Staff Physician] - Shaw Méndez MD [Staff Physician] - Paul Perez MD [Staff Physician] - Disposition: HOME - Home Medications Comprehensive Discharge Medication List: Ambulatory Orders Ferrous Sulfate 325 mg PO DAILY 10/17/12 Levothyroxine [Synthroid -] 75 mcg PO DAILY 10/17/12 Loratadine [Claritin -] 10 mg PO DAILY 10/17/12 Metformin HCl [Glucophage] 1,000 mg PO BID 10/17/12 Montelukast Na [Singulair -] 10 mg PO HS 10/17/12 [place]-3 Acid Ethyl Esters [Lovaza -] 1,000 mg PO TID 10/17/12 Simvastatin [Zocor -] 40 mg PO HS 10/17/12 Calcium Carbonate/Vitamin D3 [Oyster Shell Calcium-Vit D Tab] 1 each PO DAILY Sennosides [Senna] 8.6 mg PO PRN 09/08/16 Aclidinium [place] [Tudorza -] 1 puff IH BID #1 inhaler 10/03/16 Diltiazem Cd [Cardizem Cd -] 300 mg PO DAILY #30 cap 10/03/16 Guaifenesin/D-Methorphan Hb [Diabetic Tussin Dm -] 5 ml PO Q6H PRN #1 ml Insulin (Novolog) [Novolog Flexpen] See Protocol SQ ACHS #1 pen 10/03/16 Miscellaneous Medical Supply [Glucometer Device] 1 each .ROUTE ASDIR #1 kit Miscellaneous [employer] Supply [Glucometer Test Strips #100] 1 each .ROUTE ASDIR # 1 box 10/03/16 Nut.tx.gluc.intoler,Lac-Fr,Soy [Glucerna] 1,000 ml PO TID PRN #30 liquid Nystatin Powder [Nystop Powder -] 1 applic TP BID #1 applic 10/03/16 Ranitidine [Zantac -] 150 mg PO BID #30 tab 10/03/16 Spironolactone [Aldactone -] 50 mg PO DAILY #30 tablet 10/03/16 Thermometer, Electronic,Oral [Fast Read Thermometer] 1 each MC DAILY #1 each Warfarin Na [Coumadin -] 3 mg PO DAILY@1800 #14 tablet 10/03/16 This patient is new to me today: No Emergency Visit: Yes ED Registration Date: 09/08/16 Care time: The patient presented to the Emergency Department on the above date and was hospitalized for further evaluation of their emergent condition. Critical Care patient: No - Discharge Referral Referred to [facility] Yes Physician Referral: Jordy Medellin MD ([facility])
--- NOTE | 2016-10-03 16:37 | PN ---
Progress Note (short form) - Note Progress Note: Patient seen and examined ambulating chest tube still draining Last Vital Signs Temp Pulse Resp BP Pulse Ox 98.2 F 72 18 110/52 98 10/03/16 14:31 10/03/16 14:31 10/03/16 14:31 10/03/16 14:31 10/03/16 09:00 Cor: RSR, No murmurs, No gallops Lungs: Clear to P&A Abd: Soft, Normal bowel sounds, No organomegaly Ext:significant venous stasis Abnormal Lab Results 10/02/16 10/02/16 10/03/16 22:22 22:22 06:00 MCV MCHC RDW Neutrophils % Monocytes % INR 2.23 H Sodium 129 L Chloride 93 L Random Glucose 453 H* D 462 H* Alkaline Phosphatase Total Protein Albumin 10/03/16 10/03/16 06:10 06:10 MCV 77.0 L MCHC 31.5 L RDW 17.0 H Neutrophils % 88.0 H Monocytes % 1.0 L INR Sodium 131 L Chloride 96 L Random Glucose 334 H* D Alkaline Phosphatase 119 H Total Protein 5.8 L Albumin 2.3 L Active Medications Generic Name Dose Route Start Last Admin Trade Name Freq PRN Reason Stop Dose Admin Aclidinium [place] 1 puff 09/20/16 22:00 10/03/16 10:19 Tudorza - IH 1 puff BID VIRGILIO Administration Albuterol Sulfate 1 amp 09/28/16 10:51 09/29/16 10:38 Ventolin 0.083% Nebulizer Soln - NEB 1 amp Q6H PRN Administration SHORT OF BREATH/WHEEZING Atorvastatin Calcium 20 mg 09/20/16 22:00 10/02/16 21:37 Lipitor - PO 20 mg HS VIRGILIO Administration Diltiazem HCl 300 mg 09/21/16 10:00 10/03/16 10:20 Cardizem Cd - PO 300 mg DAILY VIRGILIO Administration Ferrous Sulfate 325 mg 09/21/16 10:00 10/03/16 10:20 Feosol - PO 325 mg DAILY VIRGILIO Administration Guaifenesin 5 ml 09/20/16 11:41 09/23/16 10:20 Diabetic Tussin Dm - PO 5 ml Q6H PRN Administration COUGH IV Flush 10 ml 09/23/16 18:50 09/30/16 15:18 Neeta-Cath Flush IVPUSH 10 ml PRN PRN Administration FLUSH Insulin Aspart 1 vial 09/20/16 16:30 10/03/16 12:16 Novolog Vial Sliding Scale - SQ 6 unit ACHS VIRGILIO Administration Protocol Levothyroxine Sodium 75 mcg 09/21/16 07:00 10/03/16 06:24 Synthroid - PO 75 mcg DAILY@0700 VIRGILIO Administration Montelukast Sodium 10 mg 09/20/16 22:00 10/02/16 21:37 Singulair - PO 10 mg HS VIRGILIO Administration Nystatin 1 applic 09/21/16 02:45 10/03/16 10:20 Nystop Powder - TP 1 applic BID VIRGILIO Administration [id number] Ethyl Esters 1 gm 09/20/16 14:00 10/03/16 16:21 Lovaza - PO 1 gm TID VIRGILIO Administration Ondansetron HCl 8 mg 10/02/16 15:36 Zofran Injection IVPB Q12H PRN NAUSEA Pantoprazole Sodium 40 mg 10/03/16 10:00 10/03/16 10:20 Protonix - PO 40 mg DAILY VIRGILIO Administration Prochlorperazine Maleate 10 mg 10/02/16 15:37 Compazine - PO Q8H PRN NAUSEA AND/OR VOMITING Senna 1 tab 09/20/16 11:41 10/01/16 12:30 Senna - PO 1 tab DAILY PRN Administration Spironolactone 50 mg 09/21/16 10:00 10/03/16 10:20 Aldactone - PO 50 mg DAILY VIRGILIO Administration Warfarin Sodium 3 mg 10/03/16 18:00 Coumadin - PO DAILY@1800 VIRGILIO A/P Metasatic mullerian cancer, pleural effusion, s/p VATS/chest tube Received carboplatin AUC=2 and taxol 60mg/m2 for W2 10/02 plenty of hydration, oral For zofran IVPB neupogen prior to discharge will need f/u of chest tube
[2016-10-03] MEDS ORDERED: WARFARIN NA 3 MG TABLET PO SCH (18:00)
== END 2016-10-03 19:19 | disposition home or self-care (01) | DRG 982 ==
LOC: JER 17:56 → JERBED 21:25 → J5S 09-09 00:40 → JICU 09-17 17:27 → J6S 09-18 13:33 → J7W 09-20 18:21
PROVIDERS: ADMIT Internal Medicine; ATTEND Internal Medicine
PROC: 0W9B3ZX Drainage of Left Pleural Cavity, Percutaneous Approach, Diagnostic (ICD-10-PCS; principal; 2016-09-09)
PROC: 0FB23ZX Excision of Left Lobe Liver, Percutaneous Approach, Diagnostic (ICD-10-PCS; 2016-09-12)
PROC: 0W9B40Z Drainage of Left Pleural Cavity with Drainage Device, Percutaneous Endoscopic Approach (ICD-10-PCS; 2016-09-17)
PROC: 02H633Z Insertion of Infusion Device into Right Atrium, Percutaneous Approach (ICD-10-PCS; 2016-09-20)
PROC: 0JH60XZ Insertion of Tunneled Vascular Access Device into Chest Subcutaneous Tissue and Fascia, Open Approach (ICD-10-PCS; 2016-09-20)
PROC: 3E04305 Introduction of Other Antineoplastic into Central Vein, Percutaneous Approach (ICD-10-PCS; 2016-09-23)
DX: C56.9 Malignant neoplasm of unspecified ovary (principal); C78.02 Secondary malignant neoplasm of left lung; C78.7 Secondary malignant neoplasm of liver and intrahepatic bile duct; Z68.44 Body mass index [BMI] 60.0-69.9, adult; I50.22 Chronic systolic (congestive) heart failure; J91.0 Malignant pleural effusion; J98.11 Atelectasis; E87.1 Hypo-osmolality and hyponatremia; C54.9 Malignant neoplasm of corpus uteri, unspecified; E11.9 Type 2 diabetes mellitus without complications; J44.9 Chronic obstructive pulmonary disease, unspecified; I48.2 Chronic atrial fibrillation; E03.9 Hypothyroidism, unspecified; K21.9 Gastro-esophageal reflux disease without esophagitis; E78.00 Pure hypercholesterolemia, unspecified; E66.01 Morbid (severe) obesity due to excess calories; J45.909 Unspecified asthma, uncomplicated; E83.42 Hypomagnesemia; I11.0 Hypertensive heart disease with heart failure; H57.04 Mydriasis; N28.9 Disorder of kidney and ureter, unspecified; H53.8 Other visual disturbances; D25.9 Leiomyoma of uterus, unspecified; R79.1 Abnormal coagulation profile; F41.8 Other specified anxiety disorders; K57.90 Diverticulosis of intestine, part unspecified, without perforation or abscess without bleeding; R06.00 Dyspnea, unspecified; R11.0 Nausea; R63.0 Anorexia; Z99.81 Dependence on supplemental oxygen; Z79.01 Long term (current) use of anticoagulants
CPT/HCPCS: 36415; 70450-TC; 71010-TC; 71020-TC; 71250-TC; 71260-TC; 72128-TC; 72131-TC; 72192-TC; 74177-TC; 76000-TC; 76830-TC; 76942; 76942-TC; 80048; 80053; 82042; 82150; 82272; 82378; 82438; 82550; 82945; 82947; 83615; 83735; 83880; 84157; 84311; 84478; 84484; 85025; 85027; 85610; 85730; 86301; 86304; 86850; 86900; 86901; 87070; 87075; 87102; 87116; 87205; 87206; 87210; 87899; 88108; 88305-TC; 88307-TC; 88341-TC; 89051; 93005; 93010; 93306-TC; 94010; 94640; 94760; 94761; 96360; 96361; 96367; 96413; 96417; 97116-GP; 97162-PG; 99284-25; G0202-TC; J1442; J1644; Q9967

== ENCOUNTER 2016-10-10 07:42 | Day surgery (SDC) | payer OTHER ==
[2016-10-10] MEDS ORDERED: DEXAMETHASONE INJECTION 10 MG in SODIUM CHLORIDE 50 ML IVPB ONE (10:00)
[2016-10-10] MEDS ORDERED: ONDANSETRON INJECTION 12 MG, DIPHENHYDRAMINE 25 MG, RANITIDINE INJECTION 50 MG in SODIU... IVPB ONE (10:00)
[2016-10-10] MEDS ORDERED: PACLITAXEL 120 MG in SODIUM CHLORIDE 250 ML IVPB ONE (10:30)
[2016-10-10 11:50] LABS: MCH 24.9 pg (25.7-33.7); MCHC 32.4 g/dl (32.0-36.0); MEAN CELL VOLUME 76.8 fl (80-96); MEAN PLT VOLUME 9.3 fl (7.5-11.1); PLATELET COUNT 195 K/MM3 (134-434); RDW 17.1 % (11.6-15.6); WHITE BLOOD COUNT 6.4 K/mm3 (4.0-10.0)
[2016-10-10 12:12] LABS: ALBUMIN 2.9 g/dl (3.4-5.0); ALK PHOS 142 U/L (45-117); ANION GAP 11 (8-16); BILIRUBIN,DIRECT 0.2 mg/dL (0.0-0.2); BILIRUBIN,TOTAL 0.7 mg/dL (0.2-1.0); CALCIUM 9.6 mg/dL (8.5-10.1); CO2 25 mmol/L (21-32); CREATININE 1.3 mg/dL (0.55-1.02); GLUCOSE,RANDOM 183 mg/dL (74-106); MAGNESIUM 1.6 mg/dL (1.8-2.4); SGOT/AST 20 U/L (15-37); SGPT/ALT 23 U/L (12-78); TOT PROT 6.9 g/dl (6.4-8.2)
[2016-10-10] MEDS ORDERED: SODIUM CHLORIDE 250 ML IV ONE ×2 (13:00→14:30)
[2016-10-10] MEDS ORDERED: MAGNESIUM OXIDE 400 MG TABLET (FP) PO ONE (13:00)
[2016-10-10 13:08] LABS: METAMYELOCYTE 1 % (0-2); PLATELET ESTIMATE ADEQUATE (NORMAL)
[2016-10-10] MEDS ORDERED: PORTA CATH FLUSH 10 ML IVPUSH ONE (13:11)
[2016-10-10] MEDS ORDERED: SODIUM CHLORIDE IVPB ONE (14:30)
[2016-10-10] MEDS ORDERED: CARBOPLATIN IVPB ONE (14:30)
[2016-10-10 17:51] VITALS: BP 107/68; PULSE 82; TEMP 98.2
== END 2016-10-10 17:56 | disposition home or self-care (01) ==
LOC: JINFUSION 07:42 → J7W 12:27 → JINFUSION 17:56
PROVIDERS: ATTEND Internal Medicine Hematology & Oncology
PROC: 3E04305 Introduction of Other Antineoplastic into Central Vein, Percutaneous Approach (ICD-10-PCS; principal; 2016-10-10)
PROC: 3E043GC Introduction of Other Therapeutic Substance into Central Vein, Percutaneous Approach (ICD-10-PCS; 2016-10-10)
PROC: 3E0437Z Introduction of Electrolytic and Water Balance Substance into Central Vein, Percutaneous Approach (ICD-10-PCS; 2016-10-10)
DX: Z51.11 Encounter for antineoplastic chemotherapy (principal); C56.9 Malignant neoplasm of unspecified ovary; I10 Essential (primary) hypertension; E11.9 Type 2 diabetes mellitus without complications; E03.9 Hypothyroidism, unspecified; E78.00 Pure hypercholesterolemia, unspecified; E66.9 Obesity, unspecified; Z68.43 Body mass index [BMI] 50.0-59.9, adult; I48.91 Unspecified atrial fibrillation; Z87.891 Personal history of nicotine dependence
CPT/HCPCS: 36415; 80053; 80076; 83735; 85025; 96361; 96367; 96375; 96413; 96417

== ENCOUNTER 2016-10-14 15:05 | Emergency (ER) | payer OTHER ==
[2016-10-14 15:13] VITALS: BMI 59.9
[2016-10-14 15:46] LABS: BASOPHIL 0.6 % (0-2.0); EOSINOPHIL 0.5 % (0-4.5); MCH 24.7 pg (25.7-33.7); MEAN CELL VOLUME 77.3 fl (80-96); MEAN PLT VOLUME 9.9 fl (7.5-11.1); NEUTROPHILS 64.2 % (42.8-82.8); PLATELET COUNT 212 K/MM3 (134-434); RDW 17.4 % (11.6-15.6); WHITE BLOOD COUNT 3.5 K/mm3 (4.0-10.0)
--- NOTE | 2016-10-14 19:11 | PDOC ---
History of Present Illness <Jayde Fang - Last Filed: 10/14/16 19:16> - General History Source: Patient Exam Limitations: No Limitations - History of Present Illness Initial Comments: 10/14/16 19:42 The patient is a 61 year old female, with a significant past medical history of Hypertension (on Cardizem), AFIB (on coumadin), diabetes, CHF, COPD, GERD and hypothyroidism, who presents to the emergency department with wound infection at chest tube site. Pts Chest tube is located on left side of her chest. Pt nursing professor was concerned since she noticed purulence from the chest tube site. Pt was last seen in the hospital on 09/09/16 and was admitted. On X-ray, pt was found to have a large left pleural effusion with multiple nodules. Pt had a thoracentesis on and cytology was positive for malignant cells. Pt was diagnosed with stage ovarian cancer with mets to the lung and liver. Pt had continued to have malignant pleural effusions. Pt was seen by an oncologist and received two sessions of chemotherapy. While in the hospital, the patient was prescribed warfarin but due to her fluctuating INR levels the dosage was changed. Pt was discharged with a PleurX. Visiting nurse services were scheduled to visit the pt every 2-3 days to drain the PleurX and for INR checks. Chest X-ray reveals mild left pleural effusion unchanged since 09/29/16. The patient denies any fever, chills, nausea, vomiting, diarrhea, or abdominal pain. <Mine Jones - Last Filed: 10/14/16 19:52> - General Chief Complaint: Wound Stated Complaint: INFECTED CHEST TUBE Time Seen by Provider: 10/14/16 15:08 Past History - Past Medical History Cardiac Disorders: Yes (ARRHYTHMIA, A-FIB) COPD: Yes Diabetes: Yes GI Disorders: Yes (GERD) HTN: Yes Hypercholesterolemia: Yes Thyroid Disease: Yes (HYPOTHYROID) - Immunization History Immunization Up to Date: Yes - Psycho/Social/Smoking Cessation Hx Anxiety: No Suicidal Ideation: No Smoking Status: No Smoking History: Never smoked Have you smoked in the past 12 months: No Number of Cigarettes Smoked Daily: 0 Information on smoking cessation initiated: No Hx Alcohol Use: No Drug/Substance Use Hx: No Substance Use Type: None Hx Substance Use Treatment: No <Jayde Fang - Last Filed: 10/14/16 19:16> <Mine Jones - Last Filed: 10/14/16 19:52> - Past Medical History Allergies/Adverse Reactions: Allergies Allergy/AdvReac Type Severity Reaction Status Date / Time No Known Allergies Allergy Verified 10/14/16 15:13 Home Medications: Ambulatory Orders Ferrous Sulfate 325 mg PO DAILY 10/17/12 Levothyroxine [Synthroid -] 75 mcg PO DAILY 10/17/12 Loratadine [Claritin -] 10 mg PO DAILY 10/17/12 Metformin HCl [Glucophage] 1,000 mg PO BID 10/17/12 Montelukast Na [Singulair -] 10 mg PO HS 10/17/12 [place]-3 Acid Ethyl Esters [Lovaza -] 1,000 mg PO TID 10/17/12 Simvastatin [Zocor -] 40 mg PO HS 10/17/12 Sennosides [Senna] 8.6 mg PO PRN 09/08/16 Aclidinium [place] [Tudorza -] 1 puff IH BID #1 inhaler 10/03/16 Diltiazem Cd [Cardizem Cd -] 300 mg PO DAILY #30 cap 10/03/16 Guaifenesin/D-Methorphan Hb [Diabetic Tussin Dm -] 5 ml PO Q6H PRN #1 ml Insulin (Novolog) [Novolog Flexpen] See Protocol SQ ACHS #1 pen 10/03/16 Miscellaneous Medical Supply [Glucometer Device] 1 each .ROUTE ASDIR #1 kit Miscellaneous Medical Supply [Glucometer Test Strips #100] 1 each .ROUTE ASDIR # 1 box 10/03/16 Nystatin Powder [Nystop Powder -] 1 applic TP BID #1 applic 10/03/16 Ranitidine [Zantac -] 150 mg PO BID #30 tab 10/03/16 Spironolactone [Aldactone -] 50 mg PO DAILY #30 tablet 10/03/16 Ondansetron HCl [Zofran] 8 mg PO DAILY PRN #3 tablet 10/04/16 Cephalexin Monohydrate [Keflex -] 500 mg PO Q6H #20 capsule 10/14/16 Insulin Aspart [Novolog Flexpen] 35 unit SQ BID 10/14/16 Warfarin Na [Coumadin -] 3 mg PO HS 10/14/16 Review of Systems - Review of Systems Able to Perform ROS?: Yes Comments:: 10/14/16 19:44 CONSTITUTIONAL: Absent: fever, no chills, no fatigue EYES: Absent: visual changes ENT: Absent: ear pain, no sore throat CARDIOVASCULAR: Absent: chest pain, no palpitations RESPIRATORY: Absent: cough, no SOB GI: Absent: abdominal pain, no nausea, no vomiting, no constipation, no diarrhea GENITOURINARY: Absent: dysuria, no frequency, no hematuria MUSKULOSKELETAL: Absent: back pain, no arthralgia, no myalgia SKIN: Present: chest tube, wound infection Absent: rash NEURO: Absent: headache <Mine Jones - Last Filed: 10/14/16 19:52> *Physical Exam - Vital Signs Last Vital Signs Temp Pulse Resp BP Pulse Ox 98.2 F 86 20 134/83 99 10/14/16 15:08 10/14/16 15:08 10/14/16 15:08 10/14/16 15:08 10/14/16 15:08 <Jayde Fang - Last Filed: 10/14/16 19:16> - Vital Signs Last Vital Signs Temp Pulse Resp BP Pulse Ox 98.2 F 86 20 134/83 99 10/14/16 15:08 10/14/16 15:08 10/14/16 15:08 10/14/16 15:08 10/14/16 15:08 - Physical Exam Comments: 10/14/16 19:45 Well developed, well nourished. Awake and alert. No acute distress. HEENT: Normocephalic, atraumatic. PERRLA, EOMI. No conjunctival pallor. Sclera are non- icteric. Moist mucous membranes. Oropharynx is clear. NECK: Supple. Full ROM. No JVD. Carotid pulses 2+ and symmetric, without bruits. No thyromegaly. No lymphadenopathy. CARDIOVASCULAR: Regular rate and rhythm. No murmurs, rubs, or gallops. Distal pulses are 2+ and symmetric. +Left chest tube in place with 3 pan. Mild erythema around pan. Tape was removed and duoderm was applied. PULMONARY: No evidence of respiratory distress. Lungs clear to auscultation bilaterally. No wheezing, rales or rhonchi. ABDOMINAL: Soft. Non-tender. Non-distended. No rebound or guarding. No organomegaly. Normoactive bowel sounds. MUSCULOSKELETAL Normal range of motion at all joints. No bony deformities or tenderness. No CVA tenderness. EXTREMITIES: No cyanosis. No clubbing. No edema. No calf tenderness. SKIN: Warm and dry. Normal capillary refill. No rashes. No jaundice. NEUROLOGICAL: Awake, appropriate. Alert and oriented x3, moving all extremities. PSYCHIATRIC: Cooperative. Good eye contact. Appropriate mood and affect. <Mine Jones - Last Filed: 10/14/16 19:52> ED Treatment Course - LABORATORY CBC & Chemistry Diagram: 10/14/16 15:13 - ADDITIONAL ORDERS Additional order review: 10/14/16 15:13 RBC 4.40 MCV 77.3 L MCHC 32.0 RDW 17.4 H MPV 9.9 Neutrophils % 64.2 Lymphocytes % 31.5 Monocytes % 3.2 L Eosinophils % 0.5 D Basophils % 0.6 D <Jayde Fang - Last Filed: 10/14/16 19:16> - LABORATORY CBC & Chemistry Diagram: 10/14/16 15:13 - ADDITIONAL ORDERS Additional order review: 10/14/16 15:13 RBC 4.40 MCV 77.3 L MCHC 32.0 RDW 17.4 H MPV 9.9 Neutrophils % 64.2 Lymphocytes % 31.5 Monocytes % 3.2 L Eosinophils % 0.5 D Basophils % 0.6 D <Mine Jones - Last Filed: 10/14/16 19:52> Medical Decision Making - Medical Decision Making 10/14/16 19:10 61-year-old female with a history of metastatic breast cancer who required a chest tube for a very large pleural effusion last month.She has a visiting nurse that comes and change the bandages. Today there was some concern about some purulent discharge and the patient was sent to the emergency department. She has no fever. White count was normal. She does have a follow-up appointment with her doctor, who placed the chest tube Date. cxr unchagned since 09/29/16 10/14/16 19:[address] surgeon on Friday ans she has VN to change dressing on Fri <Jayde Fang - Last Filed: 10/14/16 19:16> *DC/Admit/Observation/Transfer <Jayde Fang - Last Filed: 10/14/16 19:16> <Mine Jones - Last Filed: 10/14/16 19:52> Diagnosis at time of Disposition: Pleural effusion, Dressing change - Discharge Dispostion Disposition: HOME Condition at time of disposition: Stable - Prescriptions Prescriptions: Cephalexin Monohydrate [Keflex -] 500 mg PO Q6H #20 capsule - Referrals Referrals: Elisabeth Short MD [Primary Care Provider] - - Patient Instructions Additional Instructions: please continue your medication order picker/assembler prescription at your pharmacy If you develop a fever,return to emergency department
[2016-10-14 19:44] VITALS: BP 131/80; PULSE 80; TEMP 98
== END 2016-10-14 19:28 | disposition home or self-care (01) ==
LOC: JER 15:05
DX: T82.848A Pain due to vascular prosthetic devices, implants and grafts, initial encounter (principal); G89.18 Other acute postprocedural pain; Y82.8 Other medical devices associated with adverse incidents; Y92.018 Other place in single-family (private) house as the place of occurrence of the external cause; J90 Pleural effusion, not elsewhere classified; C56.9 Malignant neoplasm of unspecified ovary; C78.00 Secondary malignant neoplasm of unspecified lung; C78.7 Secondary malignant neoplasm of liver and intrahepatic bile duct; I10 Essential (primary) hypertension; I48.91 Unspecified atrial fibrillation; Z79.01 Long term (current) use of anticoagulants; E11.9 Type 2 diabetes mellitus without complications; Z79.84 Long term (current) use of oral hypoglycemic drugs; J44.9 Chronic obstructive pulmonary disease, unspecified; K21.9 Gastro-esophageal reflux disease without esophagitis; E03.9 Hypothyroidism, unspecified; Z48.01 Encounter for change or removal of surgical wound dressing
CPT/HCPCS: 36415; 71020-TC; 85025; 99282-25

== ENCOUNTER 2016-10-17 07:54 | Day surgery (SDC) | payer OTHER ==
[2016-10-17] MEDS ORDERED: SODIUM CHLORIDE 250 ML IV ONE (10:00)
[2016-10-17] MEDS ORDERED: ONDANSETRON INJECTION 12 MG, DIPHENHYDRAMINE 25 MG, RANITIDINE INJECTION 50 MG in SODIU... IVPB ONE (10:00)
[2016-10-17] MEDS ORDERED: DEXAMETHASONE INJECTION 10 MG in SODIUM CHLORIDE 50 ML IVPB ONE (10:00)
[2016-10-17 10:14] LABS: BASOPHIL 1.3 % (0-2.0); EOSINOPHIL 0.4 % (0-4.5); MCH 25.2 pg (25.7-33.7); MCHC 32.5 g/dl (32.0-36.0); MEAN CELL VOLUME 77.5 fl (80-96); MEAN PLT VOLUME 9.2 fl (7.5-11.1); NEUTROPHILS 69.7 % (42.8-82.8); PLATELET COUNT 173 K/MM3 (134-434); WHITE BLOOD COUNT 4.5 K/mm3 (4.0-10.0)
[2016-10-17] MEDS ORDERED: PACLITAXEL 120 MG in SODIUM CHLORIDE 250 ML IVPB ONE (10:30)
[2016-10-17 10:44] LABS: ALBUMIN 2.9 g/dl (3.4-5.0); ANION GAP 10 (8-16); BILIRUBIN,DIRECT 0.2 mg/dL (0.0-0.2); CALCIUM 9.1 mg/dL (8.5-10.1); CO2 27 mmol/L (21-32); CREATININE 0.9 mg/dL (0.55-1.02); GLUCOSE,RANDOM 151 mg/dL (74-106); MAGNESIUM 1.6 mg/dL (1.8-2.4); SGOT/AST 13 U/L (15-37); SGPT/ALT 18 U/L (12-78)
[2016-10-17 10:49] LABS: ALK PHOS 113 U/L (45-117); BILIRUBIN,TOTAL 0.6 mg/dL (0.2-1.0); TOT PROT 6.6 g/dl (6.4-8.2)
[2016-10-17] MEDS ORDERED: PORTA CATH FLUSH 10 ML IVPUSH ONE (11:37)
[2016-10-17 11:47] LABS: INR 2.4 (0.82-1.09); PROTHROMBIN TIME (PATIENT) 26.9 SEC (9.98-11.88)
[2016-10-17] MEDS ORDERED: MAGNESIUM SULF 50% (8.12 MEQ/2 ML-1 GM VIAL) IVPB ONE (12:00)
--- NOTE | 2016-10-17 12:45 | PN ---
Progress Note, Physician Chief Complaint: pt known to me from the office She is receiving chemo today for metastatic Ovarian CA. She went to ER a few days ago for drainage and oozing of skin on left chest wall -- on PO Keflex for cellulitis On further questioning pt and daughter-- she has pan there on skin for the last 4 weeks, there was oozing from the site She has appointment with thoracic surgeon next Friday Pt states she has high sugars in 300's a few days after chemo - Current Medication List Current Medications: Active Medications Carboplatin 246 mg/ Sodium (Chloride) 274.6 mls @ 549.2 mls/hr IVPB ONCE ONE Stop: 10/17/16 13:29 - Objective Vital Signs: Vital Signs Temperature 97.8 F 10/17/16 11:33 Pulse Rate 66 10/17/16 11:33 Respiratory Rate 16 10/17/16 11:33 Blood Pressure 129/64 10/17/16 11:33 O2 Sat by Pulse Oximetry (%) Constitutional: Yes: No Distress, Calm Cardiovascular: Yes: Pulse Irregular Respiratory: Yes: Diminished Gastrointestinal: Yes: Normal Bowel Sounds, Soft, Abdomen, Obese, Tenderness. No: Distention Edema: Yes Edema: LLE: 3+, RLE: 3+ Psychiatric: Yes: Alert, Oriented Labs: CBC, BMP 10/17/16 09:58 10/17/16 09:58 INR, PTT INR 2.40 (0.82-1.09) H 10/17/16 11:16 Problem List - Problems (1) A-fib Code(s): I48.91 - UNSPECIFIED ATRIAL FIBRILLATION (2) Cellulitis Code(s): L03.90 - CELLULITIS, UNSPECIFIED Qualifiers: Site of cellulitis: extremity Site of cellulitis of extremity: lower extremity Laterality: left Qualified Code(s): L03.116 - Cellulitis of left lower limb (3) Hypothyroid Code(s): E03.9 - HYPOTHYROIDISM, UNSPECIFIED (4) Lymphedema Code(s): I89.0 - LYMPHEDEMA, NOT ELSEWHERE CLASSIFIED Assessment/Plan left chest wall wound noted, 3 pan seen, wound is approximated, adjusted chest tube also noted Erythema surrounding the skin around pan Wound cultures obtained as there is purulent drainage 2 pan removed as a third one does not show the skin to be approximated chemotherapy as scheduled, with regarding the diabetes, advised to take NovoLog 4 units a times a day with meals along with long-acting insulin 35 units twice a day INR therapeutic, continue with current dose of Coumadin Blood cultures were done today
[2016-10-17] MEDS ORDERED: SODIUM CHLORIDE IVPB ONE (13:00)
[2016-10-17] MEDS ORDERED: CARBOPLATIN IVPB ONE (13:00)
[2016-10-17] MEDS ORDERED: SODIUM CHLORIDE 125 ML IV ONE (14:00)
[2016-10-17 18:00] VITALS: BP 115/55; PULSE 62; TEMP 98
== END 2016-10-17 18:33 | disposition home or self-care (01) ==
LOC: JONCCHEMO 07:54 → J7W 11:26 → JONCCHEMO 18:33
PROVIDERS: ATTEND Internal Medicine Hematology & Oncology
PROC: 3E04305 Introduction of Other Antineoplastic into Central Vein, Percutaneous Approach (ICD-10-PCS; principal; 2016-10-17)
PROC: 3E043GC Introduction of Other Therapeutic Substance into Central Vein, Percutaneous Approach (ICD-10-PCS; 2016-10-17)
PROC: 3E0437Z Introduction of Electrolytic and Water Balance Substance into Central Vein, Percutaneous Approach (ICD-10-PCS; 2016-10-17)
DX: Z51.11 Encounter for antineoplastic chemotherapy (principal); C56.9 Malignant neoplasm of unspecified ovary
CPT/HCPCS: 96361; 96367; 96375; 96413; 96417; J9045; J9267; 36415; 80053; 80076; 83735; 85025; 85610; 85730; 86304; 87040; 87070; 87186; 87205

== ENCOUNTER 2016-10-24 07:33 | Inpatient (IN) | payer OTHER ==
[2016-10-24] MEDS ORDERED: DIPHENHYDRAMINE IVPB ONE (10:00)
[2016-10-24] MEDS ORDERED: SODIUM CHLORIDE 250 ML IV ONE (10:00)
[2016-10-24] MEDS ORDERED: PALONOSETRON HCL 0.25 MG in SODIUM CHLORIDE 50 ML IVPB ONE (10:00)
[2016-10-24] MEDS ORDERED: RANITIDINE IVPB ONE (10:00)
[2016-10-24] MEDS ORDERED: DEXAMETHASONE INJECTION 10 MG in SODIUM CHLORIDE 50 ML IVPB ONE (10:00)
[2016-10-24] MEDS ORDERED: SODIUM CHLORIDE IVPB ONE (10:00)
[2016-10-24] MEDS ORDERED: PACLITAXEL 126 MG in SODIUM CHLORIDE 250 ML IVPB ONE (10:30)
[2016-10-24 12:57] LABS: MCH 25.2 pg (25.7-33.7); MCHC 32.4 g/dl (32.0-36.0); MEAN CELL VOLUME 77.7 fl (80-96); MEAN PLT VOLUME 9.4 fl (7.5-11.1); PLATELET COUNT 180 K/MM3 (134-434); RDW 17.7 % (11.6-15.6); WHITE BLOOD COUNT 6.6 K/mm3 (4.0-10.0)
[2016-10-24 13:11] LABS: ALBUMIN 3.1 g/dl (3.4-5.0); ALK PHOS 122 U/L (45-117); ANION GAP 10 (8-16); BILIRUBIN,TOTAL 0.6 mg/dL (0.2-1.0); CALCIUM 9.5 mg/dL (8.5-10.1); CO2 24 mmol/L (21-32); GLUCOSE,RANDOM 196 mg/dL (74-106); MAGNESIUM 1.5 mg/dL (1.8-2.4); SGOT/AST 11 U/L (15-37); SGPT/ALT 19 U/L (12-78); TOT PROT 6.8 g/dl (6.4-8.2)
[2016-10-24] MEDS ORDERED: SODIUM CHLORIDE 1,000 ML IV SCH ×3 (13:30→15:30)
[2016-10-24] MEDS ORDERED: VANCOMYCIN 1,000 MG in DEXTROSE 5%-WATER - 250 ML IVPB SCH (14:15)
[2016-10-24] MEDS ORDERED: PORTA CATH FLUSH 10 ML IVPUSH ONE (14:20)
--- NOTE | 2016-10-24 14:39 | PN ---
Chief Complaint: Feeling weak and cold History of Present Illness: Ms. Estrada is a 61 year old female with metastatic ovarian on weekly carbo/ taxol. She is here for her chemotherapy. She recently saw CTS who removed the chest tube. Upon arrival to the infusion suite, though her vitals are stable, except for a HR of 106, she mentioned that she feels cold, weak. ROS is also positive for chills. Also she is completing her keflex tomorrow. But, she has a carbuncle developed (which exacerbated on and off), which as per her is raised and painful from the past two days. No noted fevers at home. No CP/SOB/ Palpitations. Daughter at bedside. - Review of Systems Constitutional: reports: Chills, Weakness Eyes: denies: No Symptoms HENT: denies: Throat Pain Neck: denies: Lumps Cardiovascular: reports: Shortness of Breath Respiratory: reports: SOB. denies: Cough Gastrointestinal: denies: Abdominal Pain, Constipation, Diarrhea Genitourinary: denies: Burning, Discharge, Dysuria Musculoskeletal: denies: Extremity Pain, Joint Pain Neurological: reports: No Symptoms Endocrine: reports: No Symptoms Hematology/Lymphatic: reports: No Symptoms - Medications/Allergies Allergies/Adverse Reactions: Allergies Allergy/AdvReac Type Severity Reaction Status Date / Time No Known Allergies Allergy Verified 10/14/16 15:13 Medications: Current Medications IV Flush (Neeta-Cath Flush) 10 ml IVPUSH ONCE ONE Stop: 10/24/16 14:21 Sodium Chloride (Normal Saline -) 1,000 mls @ 60 mls/hr IV ASDIR VIRGILIO Last Admin: 10/24/16 13:36 Dose: 60 mls/hr Vancomycin HCl 1,000 mg/ (Dextrose) 250 mls @ 250 mls/hr IVPB Q12H VIRGILIO PRN Reason: Protocol - Objective Vital Signs: Vital Signs Temperature 98.4 F 10/24/16 13:40 Pulse Rate 106 H 10/24/16 13:40 Respiratory Rate 20 10/24/16 13:40 Blood Pressure 113/51 10/24/16 13:40 O2 Sat by Pulse Oximetry (%) Constitutional: Yes: Mild Distress Eyes: Yes: Conjunctiva Clear HENT: Yes: Atraumatic, Normocephalic Neck: Yes: Other (Back, on the right shoulder, there is acarbuncle present which is erythematous, tender and fluctuant.) Cardiovascular: Yes: Regular Rate and Rhythm Respiratory: Yes: CTA Bilaterally Gastrointestinal: Yes: Normal Bowel Sounds Extremities: Yes: Other (edematous b/l LE. Scaly skin.) Edema: Yes Edema: LLE: 2+ Labs: CBC, BMP 10/24/16 12:14 10/24/16 12:14 Problem List - Problems (1) Carbuncle and furuncle of neck Assessment/Plan: Patient with likely an infected carbuncle. need to r/o sepsis Blood cultures IV Vanco for now I.D consult requested will monitor to see if she needs a drainage. Code(s): L02.12 - FURUNCLE OF NECK L02.13 - CARBUNCLE OF NECK (2) Cancer Assessment/Plan: metastatic ovarian on weekly carbo/taxol will hold off on today's chemo Patient and daughter aware Code(s): C80.1 - MALIGNANT (PRIMARY) NEOPLASM, UNSPECIFIED (3) Acute dyspnea Assessment/Plan: Patient mentioned that she feels SOB CXR stat Not hypoxic Code(s): R06.00 - DYSPNEA, UNSPECIFIED (4) A-fib Assessment/Plan: continue coumadin INR monitoring Code(s): I48.91 - UNSPECIFIED ATRIAL FIBRILLATION (5) Pleural effusion Assessment/Plan: POSSIBLE CHEST TUBE SITE INFECTION RECENTLY COMPLETED KEFLEX WILL GET CULTURES Code(s): J90 - PLEURAL EFFUSION, NOT ELSEWHERE CLASSIFIED
[2016-10-24] MEDS ORDERED: VANCOMYCIN 1 GRAM (PRE-DOCKED) 250 ML IVPB ONE (14:45)
[2016-10-24 14:54] LABS: PLATELET COMMENT2 NO CLOTTING DETECTED; PLATELET ESTIMATE ADEQUATE (NORMAL)
[2016-10-24 14:55] LABS: ANISOCYTOSIS 1+; HYPOCHROMIA 1+
[2016-10-24] MEDS ORDERED: PIPERACILLIN/TAZOB 3.375 GM/50 ML PRE-DOCKED IVPB ONE (15:30)
[2016-10-24] MEDS ORDERED: PIPERACILLIN/TAZOB 3.375 GM 3.375 GM in DEXTROSE 5%-WATER - 50 ML IVPB SCH (15:30)
[2016-10-24 15:43] VITALS: BMI 56.5
--- NOTE | 2016-10-24 15:45 | PN ---
Progress Note, Physician Chief Complaint: ID Full note dictated Widely metastatic Ovarian cancer Had pleurovac chest tube recently removed. Some drainage noted at exit site for which she was given Keflex. Has a port and known diabetic on insulin Metformin. Presents now with painful abscess right shoulder over last week No trauma by history. States had skin abscess years ago Recent left breast culture MSSA - Current Medication List Current Medications: Active Medications Vancomycin HCl (Vancomycin (Pre-Docked)) 250 mls @ 150 mls/hr IVPB ONCE ONE PRN Reason: Protocol Stop: 10/24/16 16:24 Sodium Chloride (Normal Saline -) 1,000 mls @ 75 mls/hr IV ASDIR VIRGILIO Piperacillin Sod/Tazobactam (Sod 3.375 gm/ Dextrose) 50 mls @ 100 mls/hr IVPB Q8H-IV VIRGILIO PRN Reason: Protocol - Objective Vital Signs: Vital Signs Temperature 98.4 F 10/24/16 13:40 Pulse Rate 106 H 10/24/16 13:40 Respiratory Rate 20 10/24/16 13:40 Blood Pressure 113/51 10/24/16 13:40 O2 Sat by Pulse Oximetry (%) Labs: CBC, BMP 10/24/16 12:14 10/24/16 12:14 Problem List - Problems (1) Primary cancer of ovary with widespread metastatic disease Code(s): C56.9 - MALIGNANT NEOPLASM OF UNSPECIFIED OVARY C80.0 - DISSEMINATED MALIGNANT NEOPLASM, UNSPECIFIED Assessment/Plan Microbiology Laboratory Tests 10/24/16 10/24/16 12:14 12:14 WBC 6.6 D Hgb 11.2 Hct 34.6 Plt Count 180 Neutrophils % 75.0 Monocytes % 15.0 H D BUN 12 Creatinine 1.0 Diagnosis Metastatic Ovarian CA Fluctuant abscess right shoulder 6x6 cm Chemotherapy for Ovarian CA Removal of left chest tube ( site looks ok no drainage now) Diabetes Plan Blood cultures x 2 Surgical consult I&D Vancomycin Zosyn pending c/s Amadou CHOW
[2016-10-24] MEDS ORDERED: VANCOMYCIN 2,000 MG in DEXTROSE 5%-WATER - 500 ML IVPB ONE (15:49)
--- NOTE | 2016-10-24 15:54 | PN ---
Progress Note, Physician - Current Medication List Current Medications: Active Medications Vancomycin HCl (Vancomycin (Pre-Docked)) 250 mls @ 150 mls/hr IVPB ONCE ONE PRN Reason: Protocol Stop: 10/24/16 16:24 Sodium Chloride (Normal Saline -) 1,000 mls @ 75 mls/hr IV ASDIR VIRGILIO Piperacillin Sod/Tazobactam (Sod 3.375 gm/ Dextrose) 50 mls @ 100 mls/hr IVPB Q8H-IV VIRGILIO PRN Reason: Protocol Vancomycin HCl 2,000 mg/ (Dextrose) 500 mls @ 250 mls/hr IVPB ONCE ONE PRN Reason: Protocol Stop: 10/24/16 17:48 Piperacillin Sod/Tazobactam (Sod 4.5 gm/ Dextrose) 100 mls @ 200 mls/hr IVPB Q8H-IV VIRGILIO PRN Reason: Protocol - Objective Vital Signs: Vital Signs Temperature 98.4 F 10/24/16 13:40 Pulse Rate 106 H 10/24/16 13:40 Respiratory Rate 20 10/24/16 13:40 Blood Pressure 113/51 10/24/16 13:40 O2 Sat by Pulse Oximetry (%) Labs: CBC, BMP 10/24/16 12:14 10/24/16 12:14 Problem List - Problems (1) Primary cancer of ovary with widespread metastatic disease Code(s): C56.9 - MALIGNANT NEOPLASM OF UNSPECIFIED OVARY C80.0 - DISSEMINATED MALIGNANT NEOPLASM, UNSPECIFIED (2) Abscess Code(s): L02.91 - CUTANEOUS ABSCESS, UNSPECIFIED
--- NOTE | 2016-10-24 16:07 | CONSULT ---
Consult Consult Specialty:: Infectious disease Reason for Consultation:: Abscess of right shoulder in a diabetic patient with metastatic ovarian cancer on chemotherapy - History of Present Illness Chief Complaint: Weakness, right shoulder swelling, and chills History of Present Illness: The patient came in this morning for chemotherapy for her metastasized ovarian cancer diagnosed about 2 months ago, when she complained of chills, weakness and progressive painful growth in her right shoulder. There is no associated fever. She noticed productive cough this morning of whitish sputum , but had a 2 month chest tube removed about 2 weeks ago for massive metastatic pleural effusion, no shortness of breath. The swelling on the right shoulder started about a week ago and did not resolve with ice packs, but became progressively painful. There was a history of similar abscess at the same location 6 years ago. The patient is a known diabetic for 15 years on insulin and metformin. She also has a port in place for the past 2 months. - History Source History Provided By: Patient Limitations to Obtaining History: No Limitations - Past Medical History Cardio/Vascular: Yes: AFIB, HTN, Other (chronic lymphedema) Pulmonary: Yes: COPD, Other (recently had a chest tube removed) Gastrointestinal: Yes: GERD ...: No Endocrine: Yes: Diabetes Mellitus, Hyperthyroidism - Alcohol/Substance Use Hx Alcohol Use: No - Smoking History Smoking history: Never smoked Have you smoked in the past 12 months: No Aproximately how many cigarettes per day: 0 - Social History Usual Living Arrangement: With Child Home Medications - Allergies Allergies/Adverse Reactions: Allergies Allergy/AdvReac Type Severity Reaction Status Date / Time No Known Allergies Allergy Verified 10/14/16 15:13 - Home Medications Home Medications: Ambulatory Orders Ferrous Sulfate 325 mg PO DAILY 10/17/12 Levothyroxine [Synthroid -] 75 mcg PO DAILY 10/17/12 Loratadine [Claritin -] 10 mg PO DAILY 10/17/12 Metformin HCl [Glucophage] 1,000 mg PO BID 10/17/12 Montelukast Na [Singulair -] 10 mg PO HS 10/17/12 [place]-3 Acid Ethyl Esters [Lovaza -] 1,000 mg PO TID 10/17/12 Simvastatin [Zocor -] 40 mg PO HS 10/17/12 Sennosides [Senna] 8.6 mg PO PRN 09/08/16 Aclidinium [place] [Tudorza -] 1 puff IH BID #1 inhaler 10/03/16 Diltiazem Cd [Cardizem Cd -] 300 mg PO DAILY #30 cap 10/03/16 Guaifenesin/D-Methorphan Hb [Diabetic Tussin Dm -] 5 ml PO Q6H PRN #1 ml Insulin (Novolog) [Novolog Flexpen] See Protocol SQ ACHS #1 pen 10/03/16 Miscellaneous Medical Supply [Glucometer Device] 1 each .ROUTE ASDIR #1 kit Miscellaneous Medical Supply [Glucometer Test Strips #100] 1 each .ROUTE ASDIR # 1 box 10/03/16 Nystatin Powder [Nystop Powder -] 1 applic TP BID #1 applic 10/03/16 Ranitidine [Zantac -] 150 mg PO BID #30 tab 10/03/16 Spironolactone [Aldactone -] 50 mg PO DAILY #30 tablet 10/03/16 Ondansetron HCl [Zofran] 8 mg PO DAILY PRN #3 tablet 10/04/16 Cephalexin Monohydrate [Keflex -] 500 mg PO Q6H #20 capsule 10/14/16 Insulin Aspart [Novolog Flexpen] 35 unit SQ BID 10/14/16 Warfarin Na [Coumadin -] 3 mg PO HS 10/14/16 Family Disease History - Family Disease History Family Disease History: Diabetes: Mother, CA: Mother Review of Systems - Review of Systems Constitutional: reports: Chills. denies: Fever, Loss of Appetite, Night Sweats Cardiovascular: denies: Chest Pain Respiratory: reports: Cough Gastrointestinal: denies: Abdominal Pain, Nausea, Vomiting Genitourinary: denies: Burning, Dysuria Musculoskeletal: reports: Other (Bilateral lymphedema) Neurological: denies: Confusion, Seizure, Syncope Physical Exam Vital Signs: Vital Signs Temperature 98.4 F 10/24/16 13:40 Pulse Rate 106 H 10/24/16 13:40 Respiratory Rate 20 10/24/16 13:40 Blood Pressure 113/51 10/24/16 13:40 O2 Sat by Pulse Oximetry (%) Constitutional: Yes: Calm, Obese Eyes: Yes: Conjunctiva Clear Cardiovascular: Yes: Pulse Irregular, S1, S2 Respiratory: Yes: Cough, Other (previous chest tube site on L dressed, dry, no exudates). No: Wheezes Gastrointestinal: Yes: Abdomen, Obese. No: Ascites ...Rectal Exam: Yes: Deferred Renal/: No: [place] Present Edema: LLE: 3+, RLE: 3+ (chronic lymphedema bilaterally) Integumentary: Yes: Other (R shoulder swelling measuring about 6x6 cm fluctuant , red, warm and tender) Wound/Incision: Yes: Dressing Dry and Intact (for left lower chest extubation site, portline on R and port location on L anteriorly) Neurological: No: Asterixis, Ataxia, Facial Droop Labs: CBC, BMP 10/24/16 12:14 10/24/16 12:14 Problem List - Problems (1) Abscess Assessment/Plan: R shoulder abscess Code(s): L02.91 - CUTANEOUS ABSCESS, UNSPECIFIED (2) Primary cancer of ovary with widespread metastatic disease Code(s): C56.9 - MALIGNANT NEOPLASM OF UNSPECIFIED OVARY C80.0 - DISSEMINATED MALIGNANT NEOPLASM, UNSPECIFIED Assessment/Plan Right shoulder abscess in diabetic with metastatic ovarian cancer on chemotherapy Plan: Surgical consult for I& D abscess culture blood cultures Vancomycin and zosyn Visit type - Emergency Visit Emergency Visit: No - New Patient This patient is new to me today: Yes Date on this admission: 10/24/16 - Critical Care Critical Care patient: No
[2016-10-24] MEDS ORDERED: ACETAMINOPHEN 325 MG TABLET (FP) PO PRN (16:43)
--- NOTE | 2016-10-24 16:43 | HP ---
CHIEF COMPLAINT: Right scapular abscess PCP: Elisabeth Short HISTORY OF PRESENT ILLNESS: 61 y.o. F with a pmh of metastatic ovarian cancer on weekly chemotherapy, malignant pleural effusions s/p left chest tube removal 9 days ago admitted today by Dr. Miller for a right scapular abscess. Patient arrived for her weekly chemo session today and was found to have a large right scapular abscess first noticed on friday. Abscess has been stable in size with no surrounding erythema. It has been tender to palpation with no intracapsular shoulder pain. Has had 1 previous abscess in the past at the same site that resolved on its own. Only other skin infections are at the site of chest tube removal for which she is on a 10 days course of keflex. She also endorses 1 day of intermittent chills and generalized weakness. Denies any fevers at home. PAST MEDICAL HISTORY: metastatic ovarian cancer on weekly carbo/taxol, malignant pleural effusion, HTN, A fib on coumadin, IDDM, CHF, COPD, GERD, and Hypothyroidism PAST SURGICAL HISTORY: port and chest tube placement Social History: Smoking: none Alcohol: none Drugs: none Family History: Mother with diabetes Allergies No Known Allergies Allergy (Verified 10/14/16 15:13) HOME MEDICATIONS: Home Medications Medication Instructions Recorded Ferrous Sulfate 325 mg PO DAILY 10/17/12 Levothyroxine [Synthroid -] 75 mcg PO DAILY 10/17/12 Loratadine [Claritin -] 10 mg PO DAILY 10/17/12 Metformin HCl [Glucophage] 1,000 mg PO BID 10/17/12 Montelukast Na [Singulair -] 10 mg PO HS 10/17/12 [place]-3 Acid Ethyl Esters [Lovaza 1,000 mg PO TID 10/17/12 -] Simvastatin [Zocor -] 40 mg PO HS 10/17/12 Sennosides [Senna] 8.6 mg PO PRN 09/08/16 Aclidinium [place] [Tudorza -] 1 puff IH BID #1 inhaler 10/03/16 Diltiazem Cd [Cardizem Cd -] 300 mg PO DAILY #30 cap 10/03/16 Guaifenesin/D-Methorphan Hb 5 ml PO Q6H PRN #1 ml 10/03/16 [Diabetic Tussin Dm -] Insulin (Novolog) [Novolog Flexpen] See Protocol SQ ACHS #1 pen 10/03/16 Miscellaneous Medical Supply 1 each .ROUTE ASDIR #1 kit 10/03/16 [Glucometer Device] Miscellaneous Medical Supply 1 each .ROUTE ASDIR #1 box 10/03/16 [Glucometer Test Strips #100] Nystatin Powder [Nystop Powder -] 1 applic TP BID #1 applic 10/03/16 Ranitidine [Zantac -] 150 mg PO BID #30 tab 10/03/16 Spironolactone [Aldactone -] 50 mg PO DAILY #30 tablet 10/03/16 Ondansetron HCl [Zofran] 8 mg PO DAILY PRN #3 tablet 10/04/16 Cephalexin Monohydrate [Keflex -] 500 mg PO Q6H #20 capsule 10/14/16 Insulin Aspart [Novolog Flexpen] 35 unit SQ BID 10/14/16 Warfarin Na [Coumadin -] 3 mg PO HS 10/14/16 REVIEW OF SYSTEMS CONSTITUTIONAL: Absent: fever, diaphoresis, malaise, loss of appetite, weight change Present: Chills, Generalized weakness HEENT: Absent: rhinorrhea, nasal congestion, throat pain, throat swelling, difficulty swallowing, mouth swelling, ear pain, eye pain, visual changes CARDIOVASCULAR: Absent: chest pain, syncope, palpitations, lightheadedness, Present: irregular heart rate, peripheral edema RESPIRATORY: Absent: cough, shortness of breath, dyspnea with exertion, orthopnea, wheezing, stridor, hemoptysis Present: baseline cough productive of white sputum, and baseline shortness of breath GASTROINTESTINAL: Absent: abdominal pain, abdominal distension, nausea, vomiting, diarrhea, constipation, melena, hematochezia GENITOURINARY: Absent: dysuria, frequency, urgency, hesitancy, hematuria, flank pain, genital pain MUSCULOSKELETAL: Absent: myalgia, arthralgia, joint swelling, back pain, neck pain SKIN: Absent: itching, pallor Present: right scapular abscess HEMATOLOGIC/IMMUNOLOGIC: Absent: easy bleeding, easy bruising, lymphadenopathy, frequent infections ENDOCRINE: Absent: unexplained weight gain, unexplained weight loss, heat intolerance, cold intolerance NEUROLOGIC: Absent: headache, focal weakness or paresthesias, dizziness, unsteady gait, seizure, mental status changes, bladder or bowel incontinence PSYCHIATRIC: Absent: anxiety, depression, suicidal or homicidal ideation, hallucinations. PHYSICAL EXAMINATION Vital Signs - 24 hr 10/24/16 10/24/16 10/24/16 12:39 12:58 13:40 Temperature 98.7 F 98.6 F 98.4 F Pulse Rate 73 92 H 106 H Respiratory 18 22 20 Rate Blood Pressure 128/60 106/56 113/51 GENERAL: Awake, alert, and fully oriented, in no acute distress. HEAD: Normal with no signs of trauma. EYES: Extraocular movements intact, sclera anicteric, conjunctiva clear. EARS, NOSE, THROAT:oropharynx clear without exudates. Moist mucous membranes. NECK: Normal range of motion, supple without lymphadenopathy, JVD, or masses. LUNGS: Decreased breath sounds at left base, clear to auscultation bilaterally. No wheezes, and no crackles. No accessory muscle use. HEART: Irregularly irregular rate, Normal s1, s2 with 1/6 murmur at right lower sternal border ABDOMEN: Soft, nontender, not distended, normoactive bowel sounds, no guarding, no rebound, no masses. Mild hepatomegaly MUSCULOSKELETAL: Normal range of motion at all joints. No bony deformities or tenderness. No CVA tenderness. UPPER EXTREMITIES: 2+ pulses, warm, well-perfused. No cyanosis. No clubbing. No peripheral edema. LOWER EXTREMITIES: 2+ pulses, warm, well-perfused. No calf tenderness. 3+ pitting edema with overlying hyperkeratotic plaques on b/l legs NEUROLOGICAL: Cranial nerves II-XII intact. Normal speech. Normal gait. Reflexes 1+ UE, sensation intact, PSYCHIATRIC: Cooperative. Good eye contact. Appropriate mood and affect. SKIN: Warm, soft, fluctuant well demarcated 3-4 cm nodule on right scapula with no surrounding cellulitis, Chest tube site: clean dry intact, healing well Laboratory Results - last 24 hr 10/24/16 10/24/16 12:14 12:14 WBC 6.6 D RBC 4.46 Hgb 11.2 Hct 34.6 MCV 77.7 L MCHC 32.4 RDW 17.7 H Plt Count 180 MPV 9.4 Neutrophils % 75.0 Lymphocytes % 10.0 D Monocytes % 15.0 H D Platelet Estimate Adequate Platelet Comment No clotting detected Hypochromic-Microcytic 1+ Anisocytosis 1+ Sodium 134 L Potassium 4.2 Chloride 100 Carbon Dioxide 24 Anion Gap 10 BUN 12 Creatinine 1.0 Creat Clearance w eGFR 56.37 Random Glucose 196 H D Calcium 9.5 Magnesium 1.5 L Total Bilirubin 0.6 AST 11 L ALT 19 Alkaline Phosphatase 122 H Total Protein 6.8 Albumin 3.1 L Imaging- CXR: left sided atelectasis and small left pleural effusion ASSESSMENT/PLAN: 61 y.o. F with pmh of metastatic ovarian cancer, s/p chest tube removal on 10 day course of keflex admitted for right scapular abscess 1. Right scapular abscess -Started on Vancomycin and Zosyn -Tachycardic to 106 -Blood cultures done -Fluctuant & 3-4 cm Plan: -Consult surgery for possible I&D -f/u blood cultures -Decrease IVF to 50 cc/hr 2. Metastatic cancer -Missed weekly chemotherapy session Plan: -Resume treatment once infection resolves 3. Malignant pleural effusion -stable -improved since chest tube per CXR Plan: -consult pulm -monitor respiratory status 4. A fib Plan: -Continue warfarin -Monitor her INR 5. DM Plan: -Continue home medication (35 mg levimer BID) 6. ppx -pt already on coumadin Plan: -Continue warfarin Visit type - Emergency Visit Emergency Visit: No - New Patient This patient is new to me today: Yes Date on this admission: 10/24/16 - Critical Care Critical Care patient: No
--- NOTE | 2016-10-24 16:46 | CONS ---
DATE OF CONSULTATION: DATE OF DICTATION: 10/24/2016 INFECTIOUS DISEASE CONSULTATION HISTORY OF PRESENT ILLNESS: This is a 61-year-old female with ovarian cancer who I am asked to see for evaluation of an abscess of her left shoulder. The patient has a history of recently diagnosed, widely metastatic carcinoma with lung metastases. She had a Port-A-Cath inserted on September 20, 2016, and has been receiving weekly chemotherapy under the direction of Dr. Miller and Dr. De Paz. She also had a Pleurovac catheter in the left chest which was recently removed. Apparently as an outpatient she had what was thought to be an infection at the exit site of the left chest and for which she was given Keflex. She is a known diabetic. She has no fevers or chills currently, and over the last few days noted a tender abscess on her left shoulder. She notes having had abscesses several years ago although denies MRSA infection. A culture obtained October 17, 2016, of a left breast wound had MSSA. Previous urine culture in April of 2016 had group B Streptococcus. She has no fever or chills. PAST MEDICAL HISTORY: As noted above. CURRENT MEDICATIONS: Metformin and insulin. ALLERGIES: None known. SOCIAL HISTORY: Never smoked. No history of alcohol or substance abuse. FAMILY HISTORY: Reviewed and noncontributory. REVIEW OF SYSTEMS: Respiratory: No cough, shortness of breath. Cardiac: No chest pain, palpitations, syncope. Gastrointestinal: No nausea, vomiting, diarrhea. Genitourinary: No dysuria, hematuria. PHYSICAL EXAMINATION: General: She was a morbidly obese female alert and in no acute distress. Vital signs: Weight 350 pounds. Temperature 98.5, pulse 106, blood pressure 117/51, respirations 20. Lungs: Clear to P&A. Heart: S1, S2. Regular rhythm without murmur. Abdomen: Soft. Nontender without organomegaly. Chest: Chest revealed a fluctuant 6x6 cm abscess which was tender to touch on the left shoulder. No drainage evident. Extremities: Reveal chronic venous stasis with crusting dermatitis. LABORATORY: The white count is 6.6, hemoglobin 11.2, platelets of 180. BUN 12, creatinine 1.0, creatinine clearance of 56. Liver enzymes within normal limits. ASSESSMENT: A 61-year-old female, known diabetic with metastatic ovarian cancer, receiving chemotherapy, presents now with a fluctuant abscess of the left shoulder. Previously cultured methicillin sensitive Staphylococcus aureus wound left breast. She does not appear toxic at the current time, nor has criteria for sepsis. She is however immunocompromised by virtue of her recent chemotherapy, cancer, and diabetes. PLAN: Empiric therapy with vancomycin based on body weight with vancomycin level in a.m., piperacillin tazobactam 4.5 g every 8 hours, surgical consultation for I&D with appropriate wound cultures for [employer]. Case discussed with Dr. Miller. MIKE LUGO M.D. [id number]
--- NOTE | 2016-10-24 16:54 | HP ---
CHIEF COMPLAINT: "my shoulder hurts" PCP: Dr. Brambila HISTORY OF PRESENT ILLNESS: This is a 61 year old female with pmh of metastatic ovarian CA, malignant pleural effusion s/p L chest tube removal 9 d ago, HTN, AFIB on Coumadin, IDDM, CHF, COPD, GERD, GIB and hypothyroidism, who is referred for admission by Dr Miller [facility] due to R shoulder abscess, chills and weakness. The symptoms and abscess aperared suddenly 3 days ago. She has the same abscess in [place] same spot 8 yrs ago that self resolved. She has no other history of soft tissue infection other than chest tube entry site infection that has resolved after a 10 day course of keflex (last dose today). Her abscess is not associated with fever, R shoulder joint pain, neck pain, RUE edema or numbness. Her ovarian CA was diagnosed 2 mo ago and this would have been her 4th chemo dose, however Dr Miller held it. Patient has been evaluated by Dr Tobar and started of [facility]. Recent Travel: denies PAST MEDICAL HISTORY: as above PSH: L chest tube, L chemo port Social History: Smoking:denies Alcohol:denies Drugs: denies Family History: Mother diabetes Allergies No Known Allergies Allergy (Verified 10/14/16 15:13) HOME MEDICATIONS: Home Medications Medication Instructions Recorded Ferrous Sulfate 325 mg PO DAILY 10/17/12 Levothyroxine [Synthroid -] 75 mcg PO DAILY 10/17/12 Loratadine [Claritin -] 10 mg PO DAILY 10/17/12 Metformin HCl [Glucophage] 1,000 mg PO BID 10/17/12 Montelukast Na [Singulair -] 10 mg PO HS 10/17/12 [place]-3 Acid Ethyl Esters [Lovaza 1,000 mg PO TID 10/17/12 -] Simvastatin [Zocor -] 40 mg PO HS 10/17/12 Sennosides [Senna] 8.6 mg PO PRN 09/08/16 Aclidinium [place] [Tudorza -] 1 puff IH BID #1 inhaler 10/03/16 Diltiazem Cd [Cardizem Cd -] 300 mg PO DAILY #30 cap 10/03/16 Guaifenesin/D-Methorphan Hb 5 ml PO Q6H PRN #1 ml 10/03/16 [Diabetic Tussin Dm -] Insulin (Novolog) [Novolog Flexpen] See Protocol SQ ACHS #1 pen 10/03/16 Miscellaneous Medical Supply 1 each .ROUTE ASDIR #1 kit 10/03/16 [Glucometer Device] Miscellaneous Medical Supply 1 each .ROUTE ASDIR #1 box 10/03/16 [Glucometer Test Strips #100] Nystatin Powder [Nystop Powder -] 1 applic TP BID #1 applic 10/03/16 Ranitidine [Zantac -] 150 mg PO BID #30 tab 10/03/16 Spironolactone [Aldactone -] 50 mg PO DAILY #30 tablet 10/03/16 Ondansetron HCl [Zofran] 8 mg PO DAILY PRN #3 tablet 10/04/16 Cephalexin Monohydrate [Keflex -] 500 mg PO Q6H #20 capsule 10/14/16 Insulin Aspart [Novolog Flexpen] 35 unit SQ BID 10/14/16 Warfarin Na [Coumadin -] 3 mg PO HS 10/14/16 REVIEW OF SYSTEMS CONSTITUTIONAL: Absent: fever, malaise, loss of appetite HEENT: Absent: rhinorrhea, nasal congestion CARDIOVASCULAR: Absent: chest pain, syncope, palpitations RESPIRATORY: Absent: increased shortness of breath, orthopnea, wheezing, hemoptysis GASTROINTESTINAL: Absent: abdominal pain, abdominal distension, nausea, vomiting, diarrhea, constipation, melena, hematochezia GENITOURINARY: Absent: dysuria MUSCULOSKELETAL: Absent: myalgia, arthralgia SKIN: Absent: rash, itching, pallor HEMATOLOGIC/IMMUNOLOGIC: Absent:frequent infections ENDOCRINE: Absent: uheat intolerance, cold intolerance NEUROLOGIC: Absent: headache, focal weakness or paresthesias PSYCHIATRIC: Absent: anxiety, depression PHYSICAL EXAMINATION Vital Signs - 24 hr 10/24/16 10/24/16 10/24/16 12:39 12:58 13:40 Temperature 98.7 F 98.6 F 98.4 F Pulse Rate 73 92 H 106 H Respiratory 18 22 20 Rate Blood Pressure 128/60 106/56 113/51 GENERAL: Awake, alert, and fully oriented, in no acute distress. HEAD: Normal with no signs of trauma. EYES: Pupils equal, round and reactive to light, extraocular movements intact, sclera anicteric, conjunctiva clear. No lid lag. EARS, NOSE, THROAT: Moist mucous membranes. NECK: supple without lymphadenopathy, JVD, or masses. LUNGS: reduced breath sound and L base, ronchi L base HEART: irregularly irregular, normal S1 and S2 grade 2 systolic murmur at L lower sternal border ABDOMEN: obese, Soft, nontender, not distended, normoactive bowel sounds, no guarding, no rebound, no masses. hepatomegaly MUSCULOSKELETAL: No CVA tenderness. UPPER EXTREMITIES: 2+ pulses, warm, well-perfused. No cyanosis. No clubbing. No peripheral edema. R scapular 2.5 cm well circumscribed abscess, soft and fluctuant, no surrounding cellulitis, no break in skin or discharge LOWER EXTREMITIES: warm, well-perfused. No calf tenderness. 3+ peripheral edema. NEUROLOGICAL: Cranial nerves II-XII intact. Normal speech. Normal gait. 5/5 strength b/l, sensation intact b/l, bicep and patellat reflexes 1+ b/l PSYCHIATRIC: Cooperative. Good eye contact. Appropriate mood and affect. SKIN: Warm, dry, L chest tube lesion well healed, no purulence or cellulitis, other lesion as above Laboratory Results - last 24 hr 10/24/16 10/24/16 12:14 12:14 WBC 6.6 D RBC 4.46 Hgb 11.2 Hct 34.6 MCV 77.7 L MCHC 32.4 RDW 17.7 H Plt Count 180 MPV 9.4 Neutrophils % 75.0 Lymphocytes % 10.0 D Monocytes % 15.0 H D Platelet Estimate Adequate Platelet Comment No clotting detected Hypochromic-Microcytic 1+ Anisocytosis 1+ Sodium 134 L Potassium 4.2 Chloride 100 Carbon Dioxide 24 Anion Gap 10 BUN 12 Creatinine 1.0 Creat Clearance w eGFR 56.37 Random Glucose 196 H D Calcium 9.5 Magnesium 1.5 L Total Bilirubin 0.6 AST 11 L ALT 19 Alkaline Phosphatase 122 H Total Protein 6.8 Albumin 3.1 L ASSESSMENT/PLAN: This is a 61 year old female with pmh of metastatic ovarian CA, malignant pleural effusion s/p L chest tube removal 9 d ago, HTN, AFIB on Coumadin, IDDM, CHF, COPD, GERD, GIB and hypothyroidism, who is referred for admission by Dr Miller [facility] due to R shoulder abscess, chills and weakness. R scapular abscess -no SIRS, afebrile, hemodynamically stable, mild tachycardia, resp 18 measured during exam, no leukocytosis -ID on case, continue vanco/zosyn -surgical consult for I and D -f/u blood cultures -IVF 50 Metastatic ovarian CA -hold chemo and resume per Dr Horn malignant L pleural effusion s/p chest tube removal -CXR appears improved although some residual effusion -Pulm consult COPD -stable -continue daily respiratory meds IDDM -BGM ACHS -sliding scale, levemir 35 u bid CHF -stable -nontinue daily managememnt A fib -cont coumadin FEN: NS @ 50 lytes stable diabetic Na restricted diet coum. Dispo: adm med marialuisa Problem List - Problem (1) A-fib Code(s): I48.91 - UNSPECIFIED ATRIAL FIBRILLATION (2) Abscess Code(s): L02.91 - CUTANEOUS ABSCESS, UNSPECIFIED (3) Acute renal insufficiency Code(s): N28.9 - DISORDER OF KIDNEY AND URETER, UNSPECIFIED (4) Primary cancer of ovary with widespread metastatic disease Code(s): C56.9 - MALIGNANT NEOPLASM OF UNSPECIFIED OVARY C80.0 - DISSEMINATED MALIGNANT NEOPLASM, UNSPECIFIED (5) Hypothyroid Code(s): E03.9 - HYPOTHYROIDISM, UNSPECIFIED (6) Cancer Code(s): C80.1 - MALIGNANT (PRIMARY) NEOPLASM, UNSPECIFIED (7) Diabetes Code(s): E11.9 - TYPE 2 DIABETES MELLITUS WITHOUT COMPLICATIONS (8) HTN (hypertension) Code(s): I10 - ESSENTIAL (PRIMARY) HYPERTENSION (9) Morbidly obese Code(s): E66.01 - MORBID (SEVERE) OBESITY DUE TO EXCESS CALORIES (10) Pleural effusion Code(s): J90 - PLEURAL EFFUSION, NOT ELSEWHERE CLASSIFIED (11) Pulmonary nodules/lesions, multiple Code(s): R91.8 - OTHER NONSPECIFIC ABNORMAL FINDING OF LUNG FIELD Visit type - Emergency Visit Emergency Visit: No - New Patient This patient is new to me today: Yes Date on this admission: 10/24/16 - Critical Care Critical Care patient: No
[2016-10-24] MEDS: SODIUM CHLORIDE 1,000 ML IV SCH (17:17)
[2016-10-24] MEDS: PIPERACILLIN/TAZOB 4.5 GM 100 ML IVPB SCH (17:17)
--- NOTE | 2016-10-24 17:41 | PN ---
Teaching Attending Note Name of Resident: Vern Alcantara ATTENDING PHYSICIAN STATEMENT I saw and evaluated the patient. I reviewed the resident's note and discussed the case with the resident. I agree with the resident's findings and plan as documented. SUBJECTIVE: This is a 61-year-old woman with a history of metastatic ovarian cancer, malignant left pleural effusion s/p Pleur-x (removed 9 days ago), chronic systolic heart failure, HTN, hyperlipidemia, atrial fib, type 2 DM, COPD , hypothyroidism, morbid obesity who presented to the infusion center today for chemotherapy. She reported having chills and feeling weak, and was found to have an abscess of her posterior right shoulder. She has been on Keflex since for cellulitis of the Pleur-x insertion site. OBJECTIVE: Vital Signs Period Temp Pulse Resp BP Sys/Dinero Pulse Ox Last 24 Hr 98.4 F-98.7 F 73-106 18-22 106-128/51-60 HEART: Irregular, tachycardic LUNGS: Clear ABDOMEN: Obese, soft, non-tender, non-distended, normal BS EXTREMITIES: 4+ edema of both legs with chronic changes ASSESSMENT AND PLAN: This is a 61-year-old woman with a history of metastatic ovarian cancer, malignant left pleural effusion s/p Pleur-x (removed 9 days ago), chronic systolic heart failure, HTN, hyperlipidemia, atrial fib, type 2 DM, COPD, hypothyroidism, morbid obesity who was found to have an abscess of her posterior right shoulder when she presented to the infusion center for chemotherapy. 1. Right shoulder abscess - On Keflex as outpatient - ID consult appreciated - Zosyn, Vancomycin started - Surgery consult for I&D 2. Metastatic ovarian cancer with malignant left pleural effusion - Hold chemo secondary to abscess 3. Chronic systolic heart failure - Stable - Continue Cozaar 4. HTN - Continue Cozaar 5. Hyperlipidemia - Continue Zocor, Lovaza 6. Permanent atrial fibrillation - Tachycardic, likely secondary to infection - Continue Cardizem CD - Hold Coumadin (INR 4.44) 7. Type 2 DM - Continue Metformin, Novolog 8. COPD - Stable - Continue Tudorza, Singulair 9. Hypothyroidism - Continue Synthroid 10. Morbid obesity
[2016-10-24] MEDS ORDERED: MAGNESIUM SULF 50% (8.12 MEQ/2 ML-1 GM VIAL) IVPB ONE (18:10)
[2016-10-24] MEDS ORDERED: WARFARIN NA 5 MG TABLET (UD) PO SCH (19:15)
[2016-10-24] MEDS ORDERED: PT OWN MED DRAWER 7, Y5N ONE (21:35)
[2016-10-24] MEDS ORDERED: WARFARIN NA 3 MG TABLET PO SCH (22:00)
[2016-10-24] MEDS: ATORVASTATIN CA 40 MG TABLET (FP) PO SCH (22:27)
[2016-10-24] MEDS: OMEGA-3 ACID ETHYL ESTERS (FATTY-ACIDS) 1 GM CAPSULE (FP) PO SCH (22:27)
[2016-10-24] MEDS: GABAPENTIN 300 MG CAPSULE (FP) PO SCH (22:27)
[2016-10-24] MEDS: RANITIDINE HCL 150 MG TABLET (FP) PO SCH (22:28)
[2016-10-24] MEDS: INSULIN DETEMIR 100 UNITS/ML MDV SQ SCH (22:30)
[2016-10-24] MEDS: INSULIN SLIDING SCALE (NOVOLOG) 1 VIAL SQ SCH (22:31)
[2016-10-24] MEDS: ACLIDINIUM BROMIDE 400 MCG/INH AERO.POWD IH SCH (22:32)
[2016-10-25] MEDS: PIPERACILLIN/TAZOB 4.5 GM 100 ML IVPB SCH ×3 (02:10→19:26)
[2016-10-25] MEDS ORDERED: VANCOMYCIN 1 GRAM (PRE-DOCKED) 250 ML IVPB SCH (03:00)
[2016-10-25] MEDS: GABAPENTIN 300 MG CAPSULE (FP) PO SCH ×3 (06:07→21:59)
[2016-10-25] MEDS: LEVOTHYROXINE NA 75 MCG TABLET (FP) PO SCH (06:10)
[2016-10-25] MEDS: OMEGA-3 ACID ETHYL ESTERS (FATTY-ACIDS) 1 GM CAPSULE (FP) PO SCH ×3 (06:10→21:56)
[2016-10-25] MEDS: INSULIN DETEMIR 100 UNITS/ML MDV SQ SCH ×2 (06:13→22:24)
[2016-10-25] MEDS: INSULIN SLIDING SCALE (NOVOLOG) 1 VIAL SQ SCH ×4 (06:14→21:54)
[2016-10-25] MEDS ORDERED: INSULIN (NOVOLOG) ASPART 100 UNITS/ML 10ML VIAL ONE (06:44)
[2016-10-25 07:12] LABS: MCH 25.4 pg (25.7-33.7); MCHC 33.2 g/dl (32.0-36.0); MEAN CELL VOLUME 76.5 fl (80-96); MEAN PLT VOLUME 9.3 fl (7.5-11.1); PLATELET COUNT 154 K/MM3 (134-434); RDW 17.5 % (11.6-15.6); WHITE BLOOD COUNT 7.3 K/mm3 (4.0-10.0)
[2016-10-25 07:56] LABS: PROTHROMBIN TIME (PATIENT) 50.3 SEC (9.98-11.88)
[2016-10-25 07:58] LABS: ALBUMIN 2.3 g/dl (3.4-5.0); ANION GAP 8 (8-16); BILIRUBIN,TOTAL 0.7 mg/dL (0.2-1.0); CALCIUM 8.5 mg/dL (8.5-10.1); CO2 25 mmol/L (21-32); CREATININE 0.8 mg/dL (0.55-1.02); GLUCOSE,RANDOM 115 mg/dL (74-106); INR 4.44 (0.82-1.09); MAGNESIUM 1.9 mg/dL (1.8-2.4); PHOSPHOROUS 2.3 mg/dL (2.5-4.9); SGOT/AST 8 U/L (15-37); SGPT/ALT 13 U/L (12-78); TOT PROT 5.5 g/dl (6.4-8.2)
[2016-10-25 07:59] LABS: ALK PHOS 96 U/L (45-117)
--- NOTE | 2016-10-25 08:41 | PN ---
Progress Note, Physician Chief Complaint: ID vancomycin doses 2 grs and Zosyn Subjectively she feels better today T max 99.8 - Current Medication List Current Medications: Active Medications Acetaminophen (Tylenol -) 650 mg PO Q4H PRN PRN Reason: FEVER OR PAIN Aclidinium [place] (Tudorza -) 1 puff IH BID [facility] Last Admin: 10/24/16 22:32 Dose: 1 puff Albuterol Sulfate (Ventolin 0.083% Nebulizer Soln -) 1 amp NEB Q4H PRN PRN Reason: SHORT OF BREATH/WHEEZING Atorvastatin Calcium (Lipitor -) 40 mg PO HS [facility] Last Admin: 10/24/16 22:27 Dose: 40 mg Gabapentin (Neurontin -) 300 mg PO TID [facility] Last Admin: 10/25/16 06:07 Dose: Not Given Piperacillin Sod/Tazobactam Sod (Zosyn 4.5gm Ivpb (Pre-Docked)) 100 mls @ 200 mls/hr IVPB Q8H-IV VIRGILIO PRN Reason: Protocol Last Admin: 10/25/16 02:10 Dose: 200 mls/hr Sodium Chloride (Normal Saline -) 1,000 mls @ 50 mls/hr IV ASDIR [facility] Last Admin: 10/24/16 17:17 Dose: 50 mls/hr Insulin Aspart (Novolog Vial Sliding Scale -) 0 vial SQ ACHS VIRGILIO PRN Reason: Protocol Last Admin: 10/25/16 06:14 Dose: Not Given Insulin Detemir (Levemir Vial) 35 units SQ BID@0700,2200 [facility] Last Admin: 10/25/16 06:13 Dose: 35 units Levothyroxine Sodium (Synthroid -) 75 mcg PO DAILY@0700 [facility] Last Admin: 10/25/16 06:10 Dose: 75 mcg Loratadine (Claritin -) 10 mg PO DAILY [facility] Losartan Potassium (Cozaar -) 50 mg PO DAILY [facility] [id number] Ethyl Esters (Lovaza -) 1 gm PO TID [facility] Last Admin: 10/25/16 06:10 Dose: 1 gm Potassium Chloride (K-Dur -) 10 meq PO DAILY [facility] Ranitidine HCl (Zantac -) 150 mg PO BID [facility] Last Admin: 10/24/16 22:28 Dose: 150 mg Warfarin Sodium (Coumadin -) 5 mg PO DAILY@1800 [facility] Last Admin: 10/24/16 20:27 Dose: 5 mg - Objective Vital Signs: Vital Signs Temperature 98.1 F 10/25/16 05:09 Pulse Rate 99 H 10/25/16 05:09 Respiratory Rate 20 10/25/16 05:09 Blood Pressure 121/64 10/25/16 05:09 O2 Sat by Pulse Oximetry (%) 94 L 10/24/16 21:00 Constitutional: Yes: Obese Neck: Yes: WNL, Supple Cardiovascular: Yes: Regular Rate and Rhythm, S1, S2 Respiratory: Yes: WNL, Regular, CTA Bilaterally Gastrointestinal: Yes: WNL, Normal Bowel Sounds, Soft Integumentary: Yes: Other (Fluctunant abscess right shoulder) Labs: CBC, BMP 10/25/16 06:00 10/25/16 06:00 INR, PTT INR 4.44 (0.82-1.09) H* D 10/25/16 06:00 Problem List - Problems (1) Primary cancer of ovary with widespread metastatic disease Code(s): C56.9 - MALIGNANT NEOPLASM OF UNSPECIFIED OVARY C80.0 - DISSEMINATED MALIGNANT NEOPLASM, UNSPECIFIED (2) Abscess Code(s): L02.91 - CUTANEOUS ABSCESS, UNSPECIFIED Assessment/Plan Microbiology Laboratory Tests 10/25/16 10/25/16 06:00 06:00 WBC 7.3 Hgb 9.6 L D Hct 28.8 L D Plt Count 154 BUN 12 Creatinine 0.8 Assessment Ovarian CA post chemotherapy Diabetes Shoulder collection/ abscess Plan Vancomy level Continue Zosyn Await surgical eval for I&D Amadou CHOW
[2016-10-25] MEDS ORDERED: NAPH,MB-DB/K PH,MBDB POWDER PACKET PO ONE (09:00)
[2016-10-25] MEDS ORDERED: LIDOCAINE HCL 1%, 10 MG/ML (20ML VIAL) ONE (09:44)
[2016-10-25] MEDS ORDERED: ENOXAPARIN NA (PORCINE) 40 MG/0.4 ML DISP.SYRIN SQ SCH (10:00)
[2016-10-25] MEDS: RANITIDINE HCL 150 MG TABLET (FP) PO SCH ×2 (10:41→21:56)
[2016-10-25] MEDS: POTASSIUM CHLORIDE TABS 10 MEQ TABLET.ER (FP) PO SCH (10:41)
[2016-10-25] MEDS: LOSARTAN POTASSIUM 50 MG TABLET (FP) PO SCH (10:41)
[2016-10-25] MEDS: ACLIDINIUM BROMIDE 400 MCG/INH AERO.POWD IH SCH ×2 (10:41→21:56)
[2016-10-25] MEDS: LORATADINE 10 MG TABLET PO SCH (10:41)
--- NOTE | 2016-10-25 10:42 | PN ---
Progress Note, Physician Chief Complaint: Metastatic ovarian cancer and chemo with right shoulder abscess One day on zosyn still complaining of weakness- did not eat dinner or breakfast, complaining of metallic taste of food no nausea, no vomiting, no abdominal pain requested glucerna this morning still complained of chills, afebrile Had I and D of right abscess this morning - Current Medication List Current Medications: Active Medications Acetaminophen (Tylenol -) 650 mg PO Q4H PRN PRN Reason: FEVER OR PAIN Aclidinium [place] (Tudorza -) 1 puff IH BID [facility] Last Admin: 10/24/16 22:32 Dose: 1 puff Albuterol Sulfate (Ventolin 0.083% Nebulizer Soln -) 1 amp NEB Q4H PRN PRN Reason: SHORT OF BREATH/WHEEZING Atorvastatin Calcium (Lipitor -) 40 mg PO HS [facility] Last Admin: 10/24/16 22:27 Dose: 40 mg Gabapentin (Neurontin -) 300 mg PO TID [facility] Last Admin: 10/25/16 06:07 Dose: Not Given Piperacillin Sod/Tazobactam Sod (Zosyn 4.5gm Ivpb (Pre-Docked)) 100 mls @ 200 mls/hr IVPB Q8H-IV VIRGILIO PRN Reason: Protocol Last Admin: 10/25/16 02:10 Dose: 200 mls/hr Sodium Chloride (Normal Saline -) 1,000 mls @ 50 mls/hr IV ASDIR [facility] Last Admin: 10/24/16 17:17 Dose: 50 mls/hr Insulin Aspart (Novolog Vial Sliding Scale -) 0 vial SQ ACHS [facility] PRN Reason: Protocol Last Admin: 10/25/16 06:14 Dose: Not Given Insulin Detemir (Levemir Vial) 35 units SQ BID@0700,2200 [facility] Last Admin: 10/25/16 06:13 Dose: 35 units Levothyroxine Sodium (Synthroid -) 75 mcg PO DAILY@0700 [facility] Last Admin: 10/25/16 06:10 Dose: 75 mcg Loratadine (Claritin -) 10 mg PO DAILY [facility] Losartan Potassium (Cozaar -) 50 mg PO DAILY [facility] [id number] Ethyl Esters (Lovaza -) 1 gm PO TID [facility] Last Admin: 10/25/16 06:10 Dose: 1 gm Potassium Chloride (K-Dur -) 10 meq PO DAILY [facility] Ranitidine HCl (Zantac -) 150 mg PO BID [facility] Last Admin: 10/24/16 22:28 Dose: 150 mg Warfarin Sodium (Coumadin -) 5 mg PO DAILY@1800 [facility] Last Admin: 10/24/16 20:27 Dose: 5 mg - Objective Vital Signs: Vital Signs Temperature 98.1 F 10/25/16 05:09 Pulse Rate 99 H 10/25/16 05:09 Respiratory Rate 20 10/25/16 05:09 Blood Pressure 121/64 10/25/16 05:09 O2 Sat by Pulse Oximetry (%) 94 L 10/24/16 21:00 Constitutional: Yes: Anxious, Obese Cardiovascular: Yes: Pulse Irregular, S1, S2 Respiratory: Yes: Rales ( L lung base) Gastrointestinal: Yes: Abdomen, Obese. No: Ascites Edema: LLE: 3+ (Chronic bilateral edema), RLE: 3+ Wound/Incision: Yes: Other (Recently dressed I and D site on right shoulder, blood stained, dressing intact) Neurological: No: Confusion, Dysarthria Labs: CBC, BMP 10/25/16 06:00 10/25/16 06:00 INR, PTT INR 4.44 (0.82-1.09) H* D 10/25/16 06:00 Problem List - Problems (1) Abscess Assessment/Plan: R shoulder abscess, drained this morning wound swab sent for culture, result pending Code(s): L02.91 - CUTANEOUS ABSCESS, UNSPECIFIED (2) Primary cancer of ovary with widespread metastatic disease Code(s): C56.9 - MALIGNANT NEOPLASM OF UNSPECIFIED OVARY C80.0 - DISSEMINATED MALIGNANT NEOPLASM, UNSPECIFIED Impression/Plan Impression/Plan: Still awaiting blood culture, wound culture, and urine culture Discuss food options with nurse including glucerna continue zosyn and vancomycin for vanco level stat Visit type - Emergency Visit Emergency Visit: No - New Patient This patient is new to me today: No - Critical Care Critical Care patient: No - Discharge Referral Referred to [facility] No
--- NOTE | 2016-10-25 11:22 | CON.PULM ---
Consult Consult Specialty:: PULMONARY Referred by:: BUDDY Reason for Consultation:: H/O PLEURAL EFFUSION - History of Present Illness Chief Complaint: WEAKNESS/ABSCESS History of Present Illness: 61 y.o. F with a pmh of metastatic ovarian cancer on weekly chemotherapy, malignant pleural effusions s/p left chest tube removal 9 days ago admitted today by Dr. Miller for a right scapular abscess. Patient arrived for her weekly chemo session today and was found to have a large right scapular abscess first noticed on friday. Abscess has been stable in size with no surrounding erythema. It has been tender to palpation with no intracapsular shoulder pain. Has had 1 previous abscess in the past at the same site that resolved on its own. Only other skin infections are at the site of chest tube removal for which she is on a 10 days course of keflex. She also endorses 1 day of intermittent chills and generalized weakness. Denies any fevers at home. 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 No: O2 Dependent Gastrointestinal: Yes: GERD Hepatobiliary: No: Cirrhosis Renal/: No: Renal Failure ...: No Heme/Onc: Yes: Anemia Endocrine: Yes: Diabetes Mellitus, Hyperthyroidism - Alcohol/Substance Use Hx Alcohol Use: No - Smoking History Smoking history: Never smoked Have you smoked in the past 12 months: No Aproximately how many cigarettes per day: 0 - Social History Usual Living Arrangement: With Child Home Medications - Allergies Allergies/Adverse Reactions: Allergies Allergy/AdvReac Type Severity Reaction Status Date / Time No Known Allergies Allergy Verified 10/14/16 15:13 - Home Medications Home Medications: Ambulatory Orders Levothyroxine [Synthroid -] 75 mcg PO DAILY 10/17/12 Loratadine [Claritin -] 10 mg PO DAILY 10/17/12 Metformin HCl [Glucophage] 500 mg PO BID 10/17/12 Montelukast Na [Singulair -] 10 mg PO HS 10/17/12 [place]-3 Acid Ethyl Esters [Lovaza -] 1,000 mg PO TID 10/17/12 Simvastatin [Zocor -] 40 mg PO HS 10/17/12 Insulin (Novolog) [Novolog Flexpen] See Protocol SQ ACHS #1 pen 10/03/16 Ranitidine [Zantac -] 150 mg PO BID #30 tab 10/03/16 Insulin Aspart [Novolog Flexpen] 35 unit SQ BID 10/14/16 Warfarin Na [Coumadin -] 5 mg PO HS 10/14/16 Gabapentin [Neurontin] 300 mg PO TID 10/24/16 Losartan Potassium [Cozaar -] 50 mg PO DAILY 10/24/16 Potassium Chloride 10 meq PO DAILY 10/24/16 Umeclidinium [place] [Incruse Ellipta] 1 puff IH DAILY 10/24/16 Family Disease History - Family Disease History Family Disease History: Diabetes: Mother, CA: Mother Review of Systems - Review of Systems Respiratory: reports: Other (REPORTS HER BREATHING IS OK) Physical Exam Vital Sings: Vital Signs Temperature 98.7 F 10/25/16 10:00 Pulse Rate 91 H 10/25/16 10:00 Respiratory Rate 20 10/25/16 10:00 Blood Pressure 105/50 10/25/16 10:00 O2 Sat by Pulse Oximetry (%) 94 L 10/24/16 21:00 Constitutional: Yes: Pallor Eyes: Yes: EOM Intact HENT: Yes: Normocephalic Neck: Yes: Trachea Midline Cardiovascular: Yes: S1, S2 Respiratory: Yes: Other (POOR INSP EFFORT/SOUNDS CLEAR B/L ANTERIOR) Gastrointestinal: Yes: Abdomen, Obese Extremities: Yes: Other (LYMPHEDEMA) Edema: LLE: 4+, RLE: 4+ Psychiatric: Yes: Other (APEARS DEPRESSED) Labs: CBC, BMP 10/25/16 06:00 10/25/16 06:00 Imaging - Results Chest X-ray: Image Reviewed Problem List - Problems (1) A-fib Code(s): I48.91 - UNSPECIFIED ATRIAL FIBRILLATION (2) Abscess Code(s): L02.91 - CUTANEOUS ABSCESS, UNSPECIFIED (3) Carbuncle and furuncle of neck Code(s): L02.12 - FURUNCLE OF NECK L02.13 - CARBUNCLE OF NECK (4) Primary cancer of ovary with widespread metastatic disease Code(s): C56.9 - MALIGNANT NEOPLASM OF UNSPECIFIED OVARY C80.0 - DISSEMINATED MALIGNANT NEOPLASM, UNSPECIFIED (5) Supratherapeutic INR Code(s): R79.1 - ABNORMAL COAGULATION PROFILE (6) Hypothyroid Code(s): E03.9 - HYPOTHYROIDISM, UNSPECIFIED Assessment/Plan RESP STATUS APPEARS STABLE PRESENTLY WOULD CONTINUE O2 SUPPLEMENTATION/BRONCHODILATORS/ANTIBIOTICS CHECK CULTURES ON ABSCESS DRAINAGE WILL FOLLOW Amy SULLIVAN MD
--- NOTE | 2016-10-25 13:04 | CONSULT ---
Consult Consult Specialty:: Surgery Referred by:: Lalito jennings Reason for Consultation:: Abscess on right upper back. - History of Present Illness History of Present Illness: Pain and swelling on right upper back for 3-4 days, painful and swollen. 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 No: O2 Dependent Gastrointestinal: Yes: GERD Hepatobiliary: No: Cirrhosis Renal/: No: Renal Failure ...: No Endocrine: Yes: Diabetes Mellitus, Hyperthyroidism - Alcohol/Substance Use Hx Alcohol Use: No - Smoking History Smoking history: Never smoked Have you smoked in the past 12 months: No Aproximately how many cigarettes per day: 0 - Social History Usual Living Arrangement: With Child Home Medications - Allergies Allergies/Adverse Reactions: Allergies Allergy/AdvReac Type Severity Reaction Status Date / Time No Known Allergies Allergy Verified 10/14/16 15:13 - Home Medications Home Medications: Ambulatory Orders Levothyroxine [Synthroid -] 75 mcg PO DAILY 10/17/12 Loratadine [Claritin -] 10 mg PO DAILY 10/17/12 Metformin HCl [Glucophage] 500 mg PO BID 10/17/12 [place]-3 Acid Ethyl Esters [Lovaza -] 1,000 mg PO TID 10/17/12 Simvastatin [Zocor -] 40 mg PO HS 10/17/12 Insulin (Novolog) [Novolog Flexpen] See Protocol SQ ACHS #1 pen 10/03/16 Ranitidine [Zantac -] 150 mg PO BID #30 tab 10/03/16 Insulin Aspart [Novolog Flexpen] 35 unit SQ BID 10/14/16 Warfarin Na [Coumadin -] 3 mg PO HS 10/14/16 Gabapentin [Neurontin] 300 mg PO TID 10/24/16 Potassium Chloride 10 meq PO DAILY 10/24/16 Umeclidinium [place] [Incruse Ellipta] 1 puff IH DAILY 10/24/16 Bumetanide [Bumex -] 1 mg PO BID 10/25/16 Diltiazem Cd [Cardizem Cd -] 300 mg PO DAILY 10/25/16 Spironolactone [Aldactone] 50 mg PO DAILY 10/25/16 Family Disease History - Family Disease History Family Disease History: Diabetes: Mother, CA: Mother Physical Exam Vital Signs: Vital Signs Temperature 98.7 F 10/25/16 10:00 Pulse Rate 91 H 10/25/16 10:00 Respiratory Rate 20 10/25/16 10:00 Blood Pressure 105/50 10/25/16 10:00 O2 Sat by Pulse Oximetry (%) 94 L 10/24/16 21:00 Constitutional: Yes: Obese Musculoskeletal: Yes: Other (Swellinf on right upper back , about 4-5 cms., Tender , fluctuant , ? abscess.) Labs: CBC, BMP 10/25/16 06:00 10/25/16 06:00 Problem List - Problems (1) Abscess of upper back excluding scapular region Code(s): L02.212 - CUTANEOUS ABSCESS OF BACK [ANY PART, EXCEPT BUTTOCK] (2) Primary cancer of ovary with widespread metastatic disease Code(s): C56.9 - MALIGNANT NEOPLASM OF UNSPECIFIED OVARY C80.0 - DISSEMINATED MALIGNANT NEOPLASM, UNSPECIFIED (3) Cancer of ovary Code(s): C56.9 - MALIGNANT NEOPLASM OF UNSPECIFIED OVARY (4) Morbidly obese Code(s): E66.01 - MORBID (SEVERE) OBESITY DUE TO EXCESS CALORIES (5) Cancer Code(s): C80.1 - MALIGNANT (PRIMARY) NEOPLASM, UNSPECIFIED (6) Congestive heart failure Code(s): I50.9 - HEART FAILURE, UNSPECIFIED Assessment/Plan Abscess right upper back. Patient was explained of the abscess and need to do incision and drainage. The steps were explained , and told that it can be done on the bedside. patient agreed , and the procedure was done on the bedside . Consent was obtained . She is on antibiotics. Abscess incised and packed , pus sent for culture.
--- NOTE | 2016-10-25 13:12 | PROC ---
Procedure Note Procedure: Incision and drainage of abscess on the right upper back done on 10/25/2016 t the bed side,. Site identified , consent obtained. Area cleansed with betadine. 1% lidocaine , about 8 ml. was injected around the area, on the right upper back. With a no. 15 disposable blade , a 3-4 cm. incision was made in a vertical fashion. About 5-6 ml of pus was drained , a swab of pus was sent for culture. Some debris was evacuated. The cavity was irrigated and wound was packed with gauze and dressed. The nurse assisted me throughout the procedure. She was stable and tolerated well.
--- NOTE | 2016-10-25 13:17 | PN ---
Teaching Attending Note Name of Resident: Vern Alcantara ATTENDING PHYSICIAN STATEMENT I saw and evaluated the patient. I reviewed the resident's note and discussed the case with the resident. I agree with the resident's findings and plan as documented. SUBJECTIVE: Patient has no complaints. OBJECTIVE: Vital Signs Period Temp Pulse Resp BP Sys/Dinero Pulse Ox Last 24 Hr 98.1 F-99.8 F 91-106 20-20 105-131/50-71 94 HEART: Irregularly irregular LUNGS: Clear ABDOMEN: Obese, soft, non-tender, non-distended, normal BS EXTREMITIES: 4+ edema of both legs with chronic changes ASSESSMENT AND PLAN: This is a 61-year-old woman with a history of metastatic ovarian cancer, malignant left pleural effusion s/p Pleur-x (removed 9 days ago), chronic systolic heart failure, HTN, hyperlipidemia, atrial fib, type 2 DM, COPD, hypothyroidism, morbid obesity who was found to have an abscess of her posterior right shoulder when she presented to the infusion center for chemotherapy. 1. Right shoulder abscess - Continue Zosyn, Vancomycin - s/p I&D today - Follow-up culture 2. Metastatic ovarian cancer with malignant left pleural effusion 3. Chronic systolic heart failure - Stable - Continue Cozaar 4. HTN - Continue Cozaar 5. Hyperlipidemia - Continue Lipitor, Lovaza 6. Permanent atrial fibrillation - Rate is better - Continue Cardizem CD - Hold Coumadin (INR 4.44) 7. Type 2 DM - Continue Levemir, Novolog sliding scale 8. COPD - Stable - Continue Tudorza, Singulair, albuterol as needed 9. Hypothyroidism - Continue Synthroid 10. Hypokalemia - Replete potassium 11. Morbid obesity with BMI 57.1
--- NOTE | 2016-10-25 14:00 | PN ---
Physical Exam: SUBJECTIVE: Patient seen and examined 61 y.o F with pmh of metastatic ovarian cancer on weekly chemotherapy, malignant pleural effusions s/p left chest tube removal 10 days ago admitted for right scapular abscess. No acute events overnight. Patient has no complaints this morning. Patient's INR was 4.44. Patient states she was supposed to be taking coumadin 3 mg after her last admission but ran out, so she has been taking old coumadin 5 mg tablets instead. OBJECTIVE: Vital Signs Period Temp Pulse Resp BP Sys/Dinero Pulse Ox Last 24 Hr 98.0 F-99.8 F 91-102 20-20 105-131/50-73 94 GENERAL: Awake, alert, and fully oriented, in no acute distress. HEAD: Normal with no signs of trauma. EYES: Extraocular movements intact, sclera anicteric, conjunctiva clear. EARS, NOSE, THROAT:oropharynx clear without exudates. Moist mucous membranes. NECK: Normal range of motion, supple without lymphadenopathy, JVD, or masses. LUNGS: Decreased breath sounds at left base, clear to auscultation bilaterally. No wheezes, and no crackles. No accessory muscle use. HEART: Irregularly irregular rate, Normal s1, s2 with 1/6 murmur at right lower sternal border ABDOMEN: Soft, nontender, not distended, normoactive bowel sounds, no guarding, no rebound, no masses. Mild hepatomegaly MUSCULOSKELETAL: Normal range of motion at all joints. No bony deformities or tenderness. No CVA tenderness. UPPER EXTREMITIES: 2+ pulses, warm, well-perfused. No cyanosis. No clubbing. No peripheral edema. LOWER EXTREMITIES: 2+ pulses, warm, well-perfused. No calf tenderness. 3+ pitting edema with overlying hyperkeratotic plaques on b/l legs NEUROLOGICAL: Cranial nerves II-XII intact. Normal speech. Normal gait. Reflexes 1+ UE, sensation intact, PSYCHIATRIC: Cooperative. Good eye contact. Appropriate mood and affect. SKIN: Warm, soft, fluctuant well demarcated 3-4 cm nodule on right scapula with no surrounding cellulitis, Chest tube site: clean dry intact, healing well Laboratory Results - last 24 hr 10/24/16 10/24/16 10/24/16 12:14 17:20 22:26 WBC 6.6 D RBC 4.46 Hgb 11.2 Hct 34.6 MCV 77.7 L MCHC 32.4 RDW 17.7 H Plt Count 180 MPV 9.4 Neutrophils % 75.0 Lymphocytes % 10.0 D Monocytes % 15.0 H D Platelet Estimate Adequate Platelet Comment No clotting detected Hypochromic-Microcytic 1+ Anisocytosis 1+ INR Sodium Potassium Chloride Carbon Dioxide Anion Gap BUN Creatinine Creat Clearance w eGFR POC Glucometer 173 221 Random Glucose Calcium Phosphorus Magnesium Total Bilirubin AST ALT Alkaline Phosphatase Total Protein Albumin Random Vancomycin 10/25/16 10/25/16 10/25/16 06:00 06:00 06:00 WBC 7.3 RBC 3.76 Hgb 9.6 L D Hct 28.8 L D MCV 76.5 L MCHC 33.2 RDW 17.5 H Plt Count 154 MPV 9.3 Neutrophils % Lymphocytes % Monocytes % Platelet Estimate Platelet Comment Hypochromic-Microcytic Anisocytosis INR 4.44 H* D Sodium 136 Potassium 3.4 L Chloride 103 Carbon Dioxide 25 Anion Gap 8 BUN 12 Creatinine 0.8 Creat Clearance w eGFR > 60 POC Glucometer Random Glucose 115 H D Calcium 8.5 Phosphorus 2.3 L Magnesium 1.9 D Total Bilirubin 0.7 AST 8 L D ALT 13 D Alkaline Phosphatase 96 D Total Protein 5.5 L Albumin 2.3 L D Random Vancomycin 10/25/16 10/25/16 06:12 11:45 WBC RBC Hgb Hct MCV MCHC RDW Plt Count MPV Neutrophils % Lymphocytes % Monocytes % Platelet Estimate Platelet Comment Hypochromic-Microcytic Anisocytosis INR Sodium Potassium Chloride Carbon Dioxide Anion Gap BUN Creatinine Creat Clearance w eGFR POC Glucometer 130 Random Glucose Calcium Phosphorus Magnesium Total Bilirubin AST ALT Alkaline Phosphatase Total Protein Albumin Random Vancomycin 4.959 Active Medications Generic Name Dose Route Start Last Admin Trade Name Freq PRN Reason Stop Dose Admin Acetaminophen 650 mg 10/24/16 16:43 Tylenol - PO Q4H PRN FEVER OR PAIN Aclidinium [place] 1 puff 10/24/16 22:00 10/25/16 10:41 Tudorza - IH 1 puff BID VIRGILIO Administration Albuterol Sulfate 1 amp 10/24/16 16:43 Ventolin 0.083% Nebulizer Soln - NEB Q4H PRN SHORT OF BREATH/WHEEZING Atorvastatin Calcium 40 mg 10/24/16 22:00 10/24/16 22:27 Lipitor - PO 40 mg HS VIRGILIO Administration Gabapentin 300 mg 07/06/17 22:00 10/25/16 06:07 Neurontin - PO Not Given TID VIRGILIO Piperacillin Sod/Tazobactam Sod 100 mls @ 200 mls/hr 10/24/16 18:00 10/25/16 10 :41 Zosyn 4.5gm Ivpb (Pre-Docked) IVPB 200 mls/hr Q8H-IV VIRGILIO Administration Protocol Sodium Chloride 1,000 mls @ 50 mls/hr 10/24/16 16:51 10/24/16 17:17 Normal Saline - IV 50 mls/hr ASDIR VIRGILIO Administration Insulin Aspart 0 vial 10/24/16 22:00 10/25/16 11:00 Novolog Vial Sliding Scale - SQ 2 units ACHS VIRGILIO Administration Protocol Insulin Detemir 35 units 10/24/16 22:00 10/25/16 06:13 Levemir Vial SQ 35 units BID@0700,2200 VIRGILIO Administration Levothyroxine Sodium 75 mcg 10/25/16 07:00 10/25/16 06:10 Synthroid - PO 75 mcg DAILY@0700 VIRGILIO Administration Loratadine 10 mg 10/25/16 10:00 10/25/16 10:41 Claritin - PO 10 mg DAILY VIRGILIO Administration Losartan Potassium 50 mg 10/25/16 10:00 10/25/16 10:41 Cozaar - PO 50 mg DAILY VIRGILIO Administration Yup[place]-3-Orjz Ethyl Esters 1 gm 10/24/16 22:00 10/25/16 06:10 Lovaza - PO 1 gm TID VIRGILIO Administration Potassium Chloride 10 meq 10/25/16 10:00 10/25/16 10:41 K-Dur - PO 10 meq DAILY VIRGILIO Administration Ranitidine HCl 150 mg 10/24/16 22:00 10/25/16 10:41 Zantac - PO 150 mg BID VIRGILIO Administration ASSESSMENT/PLAN: 61 y.o F with pmh of metastatic ovarian cancer on weekly chemotherapy, malignant pleural effusions s/p left chest tube removal 10 days ago admitted for right scapular abscess. 1. Right scapular abscess -Started on Vancomycin and Zosyn -tachycardia resolvd -Blood cultures and urine cultures pending -Fluctuant & 3-4 cm -I&D completed today (10/25) -INR of 4.44 Plan: -F/u on blood and wound cultures -Continue Vancomycin 1500 mg IV BID and Zosyn 4.5 gm IV Q8H -F/u cultures -Hold Coumadin 2. Metastatic cancer -Missed weekly chemotherapy session Plan: -Resume treatment once infection resolves 3. Malignant pleural effusion -stable -improved since chest tube per CXR Plan: -Pulm will see her -monitor respiratory status 4. A fib -INR 4.44 Plan: -Hold warfarin -Monitor her INR 5. DM Plan: -Continue home medication (35 mg levimer BID) 6. ppx -INR elevated to 4.44 Plan: -Hold coumadin -Recheck INR in the morning Visit type - Emergency Visit Emergency Visit: No - New Patient This patient is new to me today: No - Critical Care Critical Care patient: No
--- NOTE | 2016-10-25 15:47 | PN ---
Progress Note (short form) - Note Progress Note: Patient seen and examined Looks toxic Has had chills and rigors Had I & D of right shoulder sebaceous cyst--- sent for C & S Denies headache, diplopia, epistaxis, dysphagia chest pain, some SOb , dyspnea , minimum cough, no significant sputum No nausea, emesis, diarrhea, , dysuria, hematuria, some lower quadrant pains Last Vital Signs Temp Pulse Resp BP Pulse Ox 98.0 F 94 H 20 130/73 93 L 10/25/16 13:39 10/25/16 13:39 10/25/16 13:39 10/25/16 13:39 10/25/16 09:00 HEENT: FRANSICO, EOM Intact Oropharynx: No thrush, No mucositis Cor: irregular Lungs: diminished breath sounds bilaterally Abd: Soft, Normal bowel sounds, No organomegaly, obese Ext:LE edema Skin: No rashes, Integument intact CBC, BMP 10/25/16 06:00 10/25/16 06:00 Current Medications Generic Name Dose Route Start Last Admin Trade Name Freq PRN Reason Stop Dose Admin Acetaminophen 650 mg 10/24/16 16:43 Tylenol - PO Q4H PRN FEVER OR PAIN Aclidinium [place] 1 puff 10/24/16 22:00 10/25/16 10:41 Tudorza - IH 1 puff BID VIRGILIO Administration Albuterol Sulfate 1 amp 10/24/16 16:43 Ventolin 0.083% Nebulizer Soln - NEB Q4H PRN SHORT OF BREATH/WHEEZING Atorvastatin Calcium 40 mg 10/24/16 22:00 10/24/16 22:27 Lipitor - PO 40 mg HS VIRGILIO Administration Gabapentin 300 mg 10/24/16 22:00 10/25/16 14:48 Neurontin - PO Not Given TID VIRGILIO Piperacillin Sod/Tazobactam Sod 100 mls @ 200 mls/hr 10/24/16 18:00 10/25/16 10 :41 Zosyn 4.5gm Ivpb (Pre-Docked) IVPB 200 mls/hr Q8H-IV VIRGILIO Administration Protocol Sodium Chloride 1,000 mls @ 50 mls/hr 10/24/16 16:51 10/24/16 17:17 Normal Saline - IV 50 mls/hr ASDIR VIRGILIO Administration Vancomycin HCl 1,500 mg/ 500 mls @ 250 mls/hr 10/25/16 16:00 Dextrose IVPB BID@0400,1600 [facility] Protocol Insulin Aspart 0 vial 10/24/16 22:00 10/25/16 11:00 Novolog Vial Sliding Scale - SQ 2 units ACHS VIRGILIO Administration Protocol Insulin Detemir 35 units 10/24/16 22:00 10/25/16 06:13 Levemir Vial SQ 35 units BID@0700,2200 VIRGILIO Administration Levothyroxine Sodium 75 mcg 10/25/16 07:00 10/25/16 06:10 Synthroid - PO 75 mcg DAILY@0700 VIRGILIO Administration Loratadine 10 mg 10/25/16 10:00 10/25/16 10:41 Claritin - PO 10 mg DAILY VIRGILIO Administration Losartan Potassium 50 mg 10/25/16 10:00 10/25/16 10:41 Cozaar - PO 50 mg DAILY VIRGILIO Administration [place]-6-[place] Ethyl Esters 1 gm 10/24/16 22:00 10/25/16 14:47 Lovaza - PO 1 gm TID VIRGILIO Administration Potassium Chloride 10 meq 10/25/16 10:00 10/25/16 10:41 K-Dur - PO 10 meq DAILY VIRGILIO Administration Ranitidine HCl 150 mg 10/24/16 22:00 10/25/16 10:41 Zantac - PO 150 mg BID VIRGILIO Administration Microbiology 10/24/16 15:00 Blood - Peripheral Venous Blood Culture - Preliminary NO GROWTH OBTAINED AFTER 24 HOURS, INCUBATION TO CONTINUE FOR 4 DAYS. 10/24/16 15:00 Blood - Peripheral Venous Blood Culture - Preliminary NO GROWTH OBTAINED AFTER 24 HOURS, INCUBATION TO CONTINUE FOR 4 DAYS. Impression: Ovarian ca S/P chemotherapy with taxol and carboplatinum weekly Last chemotherapy -- 8 days earlier Fevers /Rigors S/P drainage of sebaceous cyst Morbid obesity Diabetes Mellitus Hypothyroidism - under therapy Atrial fib Suprtherapeutic INR It is unclear to me source of rigors, chills. Abscess of right small according to Dr. Atkins was small and an infected sebaceous cyst. Port cultures not done. Currently on antibiotics per I.D> To monitor. A/C with coumadin being held with INR-- 4.4. Increase in level may be secondary to infection.
[2016-10-25] MEDS: VANCOMYCIN 1,500 MG in DEXTROSE 5%-WATER - 500 ML IVPB SCH (17:09)
[2016-10-25] MEDS: SODIUM CHLORIDE 1,000 ML IV SCH (17:30)
[2016-10-25] MEDS ORDERED: PT OWN MED DRAWER 7, Y5N ONE (21:06)
[2016-10-25] MEDS: ATORVASTATIN CA 40 MG TABLET (FP) PO SCH (21:56)
[2016-10-26] MEDS: PIPERACILLIN/TAZOB 4.5 GM 100 ML IVPB SCH ×3 (02:08→18:53)
[2016-10-26] MEDS: VANCOMYCIN 1,500 MG in DEXTROSE 5%-WATER - 500 ML IVPB SCH ×2 (03:59→18:54)
[2016-10-26] MEDS: ALBUTEROL SO4 0.083% IH SOL 2.5 MG/3 ML VIAL.NEB. NEB PRN ×2 (06:30→23:00)
[2016-10-26] MEDS: INSULIN DETEMIR 100 UNITS/ML MDV SQ SCH ×2 (06:42→21:46)
[2016-10-26] MEDS: LEVOTHYROXINE NA 75 MCG TABLET (FP) PO SCH (06:43)
[2016-10-26] MEDS: OMEGA-3 ACID ETHYL ESTERS (FATTY-ACIDS) 1 GM CAPSULE (FP) PO SCH ×3 (06:43→21:46)
[2016-10-26] MEDS: GABAPENTIN 300 MG CAPSULE (FP) PO SCH (06:43)
[2016-10-26 07:38] LABS: MCHC 32.5 g/dl (32.0-36.0); MEAN CELL VOLUME 76.9 fl (80-96); MEAN PLT VOLUME 9.3 fl (7.5-11.1); PLATELET COUNT 129 K/MM3 (134-434); RDW 17.7 % (11.6-15.6); WHITE BLOOD COUNT 5.4 K/mm3 (4.0-10.0)
[2016-10-26 07:52] LABS: ANION GAP 9 (8-16); CALCIUM 8.5 mg/dL (8.5-10.1); CO2 26 mmol/L (21-32); CREATININE 0.7 mg/dL (0.55-1.02); GLUCOSE,RANDOM 89 mg/dL (74-106)
[2016-10-26 08:04] LABS: INR 3.84 (0.82-1.09); PROTHROMBIN TIME (PATIENT) 43.4 SEC (9.98-11.88)
--- NOTE | 2016-10-26 10:44 | PN ---
Progress Note, Physician History of Present Illness: S/P I&D R shoulder abscess No c/o pain Low grade temp Wound c/s pending - Current Medication List Current Medications: Active Medications Acetaminophen (Tylenol -) 650 mg PO Q4H PRN PRN Reason: FEVER OR PAIN Aclidinium [place] (Tudorza -) 1 puff IH BID [facility] Last Admin: 10/25/16 21:56 Dose: 1 puff Albuterol Sulfate (Ventolin 0.083% Nebulizer Soln -) 1 amp NEB Q4H PRN PRN Reason: SHORT OF BREATH/WHEEZING Last Admin: 10/26/16 06:30 Dose: 1 amp Atorvastatin Calcium (Lipitor -) 40 mg PO HS [facility] Last Admin: 10/25/16 21:56 Dose: 40 mg Gabapentin (Neurontin -) 300 mg PO TID [facility] Last Admin: 10/26/16 06:43 Dose: Not Given Piperacillin Sod/Tazobactam Sod (Zosyn 4.5gm Ivpb (Pre-Docked)) 100 mls @ 200 mls/hr IVPB Q8H-IV [facility] PRN Reason: Protocol Last Admin: 10/26/16 02:08 Dose: 200 mls/hr Sodium Chloride (Normal Saline -) 1,000 mls @ 50 mls/hr IV ASDIR [facility] Last Admin: 10/25/16 17:30 Dose: 50 mls/hr Vancomycin HCl 1,500 mg/ (Dextrose) 500 mls @ 250 mls/hr IVPB BID@0400,1600 [facility] PRN Reason: Protocol Last Admin: 10/26/16 03:59 Dose: 250 mls/hr Insulin Aspart (Novolog Vial Sliding Scale -) 0 vial SQ ACHS [facility] PRN Reason: Protocol Last Admin: 10/25/16 21:54 Dose: Not Given Insulin Detemir (Levemir Vial) 35 units SQ BID@0700,2200 [facility] Last Admin: 10/26/16 06:42 Dose: Not Given Levothyroxine Sodium (Synthroid -) 75 mcg PO DAILY@0700 [facility] Last Admin: 10/26/16 06:43 Dose: 75 mcg Loratadine (Claritin -) 10 mg PO DAILY [facility] Last Admin: 10/25/16 10:41 Dose: 10 mg Losartan Potassium (Cozaar -) 50 mg PO DAILY [facility] Last Admin: 10/25/16 10:41 Dose: 50 mg Mkipf-2-Ixax Ethyl Esters (Lovaza -) 1 gm PO TID [facility] Last Admin: 10/26/16 06:43 Dose: 1 gm Potassium Chloride (K-Dur -) 10 meq PO DAILY [facility] Last Admin: 10/25/16 10:41 Dose: 10 meq Ranitidine HCl (Zantac -) 150 mg PO BID [facility] Last Admin: 10/25/16 21:56 Dose: 150 mg - Objective Vital Signs: Vital Signs Temperature 99.5 F 10/26/16 06:00 Pulse Rate 90 10/26/16 06:00 Respiratory Rate 18 10/26/16 06:00 Blood Pressure 116/67 10/26/16 06:00 O2 Sat by Pulse Oximetry (%) 94 L 10/25/16 21:00 Constitutional: Yes: No Distress, Pallor Eyes: Yes: Conjunctiva Clear Cardiovascular: Yes: Regular Rate and Rhythm, S1, S2 Respiratory: Yes: Diminished Gastrointestinal: Yes: Normal Bowel Sounds, Soft, Abdomen, Obese. No: Tenderness Edema: Yes Edema: LLE: 3+, RLE: 3+ Integumentary: Yes: Other (R shoulder incisional wound packed) Labs: CBC, BMP 10/26/16 06:35 10/26/16 06:30 INR, PTT INR 3.84 (0.82-1.09) H 10/26/16 06:30 Assessment/Plan S/P I&D R shoulder abscess Ovarian ca Await c/s Continue vanco/ zosyn
[2016-10-26] MEDS ORDERED: GABAPENTIN 300 MG CAPSULE (FP) PO PRN (10:52)
[2016-10-26] MEDS: RANITIDINE HCL 150 MG TABLET (FP) PO SCH ×2 (10:55→21:47)
[2016-10-26] MEDS: LOSARTAN POTASSIUM 50 MG TABLET (FP) PO SCH (10:55)
[2016-10-26] MEDS: LORATADINE 10 MG TABLET PO SCH (10:55)
[2016-10-26] MEDS: POTASSIUM CHLORIDE TABS 10 MEQ TABLET.ER (FP) PO SCH (10:55)
[2016-10-26] MEDS: ACLIDINIUM BROMIDE 400 MCG/INH AERO.POWD IH SCH ×2 (10:56→21:48)
--- NOTE | 2016-10-26 10:57 | PN ---
Progress Note (short form) - Note Progress Note: PULMONARY Denies shortness of breath, +cough with thick clear sputum. No fevers or chills. Last Vital Signs Temp Pulse Resp BP Pulse Ox 99.5 F 90 18 116/67 94 L 10/26/16 06:00 10/26/16 06:00 10/26/16 06:00 10/26/16 06:00 10/25/16 21:00 Gen: NAD at rest Heart: RRR Lung: decreased breath sounds at the bases Abd: soft, nontender, +obese Ext: + edema CBC, BMP 10/26/16 06:35 10/26/16 06:30 Active Medications Acetaminophen (Tylenol -) 650 mg PO Q4H PRN PRN Reason: FEVER OR PAIN Aclidinium [place] (Tudorza -) 1 puff IH BID [facility] Last Admin: 10/25/16 21:56 Dose: 1 puff Albuterol Sulfate (Ventolin 0.083% Nebulizer Soln -) 1 amp NEB Q4H PRN PRN Reason: SHORT OF BREATH/WHEEZING Last Admin: 10/26/16 06:30 Dose: 1 amp Atorvastatin Calcium (Lipitor -) 40 mg PO HS [facility] Last Admin: 10/25/16 21:56 Dose: 40 mg Diltiazem HCl (Cardizem Cd -) 300 mg PO DAILY [facility] Gabapentin (Neurontin -) 300 mg PO TID PRN PRN Reason: PAIN Piperacillin Sod/Tazobactam Sod (Zosyn 4.5gm Ivpb (Pre-Docked)) 100 mls @ 200 mls/hr IVPB Q8H-IV [facility] PRN Reason: Protocol Last Admin: 10/26/16 02:08 Dose: 200 mls/hr Sodium Chloride (Normal Saline -) 1,000 mls @ 50 mls/hr IV ASDIR [facility] Last Admin: 10/25/16 17:30 Dose: 50 mls/hr Vancomycin HCl 1,500 mg/ (Dextrose) 500 mls @ 250 mls/hr IVPB BID@0400,1600 [facility] PRN Reason: Protocol Last Admin: 10/26/16 03:59 Dose: 250 mls/hr Insulin Aspart (Novolog Vial Sliding Scale -) 0 vial SQ ACHS [facility] PRN Reason: Protocol Last Admin: 10/25/16 21:54 Dose: Not Given Insulin Detemir (Levemir Vial) 35 units SQ BID@0700,2200 [facility] Last Admin: 10/26/16 06:42 Dose: Not Given Levothyroxine Sodium (Synthroid -) 75 mcg PO DAILY@0700 [facility] Last Admin: 10/26/16 06:43 Dose: 75 mcg Loratadine (Claritin -) 10 mg PO DAILY [facility] Last Admin: 10/25/16 10:41 Dose: 10 mg Coupi-6-Crme Ethyl Esters (Lovaza -) 1 gm PO TID [facility] Last Admin: 10/26/16 06:43 Dose: 1 gm Potassium Chloride (K-Dur -) 10 meq PO DAILY [facility] Last Admin: 10/25/16 10:41 Dose: 10 meq Ranitidine HCl (Zantac -) 150 mg PO BID [facility] Last Admin: 10/25/16 21:56 Dose: 150 mg A/P Metastatic Ovarian Cancer Malignant Pleural Effusion s/p pleur-x placement/removal Shoulder Abscess s/p I&D LV Systolic Dysfunction COPD HTN DM Hyperlipidemia Atrial Fibrillation Morbid Obesity - continue antibiotics - f/u cultures - glucose control - O2 as needed - inhaled bronchodilators - rate controlled - anticoagulation to maintain INR 2-3 - DVT prophylaxis
[2016-10-26 11:18] LABS: METAMYELOCYTE 3 % (0-2)
[2016-10-26 11:19] LABS: PLATELET ESTIMATE SLT DECREASED (NORMAL)
[2016-10-26] MEDS ORDERED: MAGNESIUM SULF 50% (8.12 MEQ/2 ML-1 GM VIAL) IVPB ONE (12:31)
--- NOTE | 2016-10-26 12:43 | PN ---
Progress Note (short form) - Note Progress Note: Pt seen/ examined chart reviewed Transferred to our service as she is our office pt comfortable but weak. chronic ill appearance s/p i/d yesterday- right upper back abscess denies pain. Vital Signs Temp 99.5 F 10/26/16 06:00 Pulse 90 10/26/16 06:00 Resp 18 10/26/16 06:00 BP 116/67 10/26/16 06:00 Pulse Ox 94 L 10/25/16 21:00 Intake & Output 10/25/16 10/26/16 10/26/16 23:59 11:59 23:59 Intake Total 1680 1070 Balance 1680 1070 Weight 350 lb 12.8 oz Intake: IV 700 350 Normal Saline - 1,000 ml 700 350 @ 50 mls/hr IV ASDIR [facility] Rx#:[id number] IVPB 500 600 Oral 480 120 Other: Voiding Method Toilet Toilet # Unmeasured Voids Void 1 1 Bowel Movement Yes No # Bowel Movements 1 Weight Measurement Method Standing Scale Active Medications Acetaminophen (Tylenol -) 650 mg PO Q4H PRN PRN Reason: FEVER OR PAIN Aclidinium [place] (Tudorza -) 1 puff IH BID [facility] Last Admin: 10/26/16 10:56 Dose: 1 puff Albuterol Sulfate (Ventolin 0.083% Nebulizer Soln -) 1 amp NEB Q4H PRN PRN Reason: SHORT OF BREATH/WHEEZING Last Admin: 10/26/16 06:30 Dose: 1 amp Atorvastatin Calcium (Lipitor -) 40 mg PO HS [facility] Last Admin: 10/25/16 21:56 Dose: 40 mg Diltiazem HCl (Cardizem Cd -) 300 mg PO DAILY [facility] Gabapentin (Neurontin -) 300 mg PO TID PRN PRN Reason: PAIN Piperacillin Sod/Tazobactam Sod (Zosyn 4.5gm Ivpb (Pre-Docked)) 100 mls @ 200 mls/hr IVPB Q8H-IV [facility] PRN Reason: Protocol Last Admin: 10/26/16 02:08 Dose: 200 mls/hr Vancomycin HCl 1,500 mg/ (Dextrose) 500 mls @ 250 mls/hr IVPB BID@0400,1600 [facility] PRN Reason: Protocol Last Admin: 10/26/16 03:59 Dose: 250 mls/hr Insulin Aspart (Novolog Vial Sliding Scale -) 0 vial SQ ACHS [facility] PRN Reason: Protocol Last Admin: 10/25/16 21:54 Dose: Not Given Insulin Detemir (Levemir Vial) 35 units SQ BID@0700,2200 [facility] Last Admin: 10/26/16 06:42 Dose: Not Given Levothyroxine Sodium (Synthroid -) 75 mcg PO DAILY@0700 [facility] Last Admin: 10/26/16 06:43 Dose: 75 mcg Loratadine (Claritin -) 10 mg PO DAILY [facility] Last Admin: 10/26/16 10:55 Dose: 10 mg Magnesium Sulfate (Magnesium Sulfate) 2 gm IVPB ONCE ONE Stop: 10/26/16 12:32 Jmhnh-4-Icab Ethyl Esters (Lovaza -) 1 gm PO TID [facility] Last Admin: 10/26/16 06:43 Dose: 1 gm Potassium Chloride (K-Dur -) 10 meq PO DAILY [facility] Last Admin: 10/26/16 10:55 Dose: 10 meq Ranitidine HCl (Zantac -) 150 mg PO BID [facility] Last Admin: 10/26/16 10:55 Dose: 150 mg CBC, BMP 10/26/16 06:35 10/26/16 06:30 Microbiology 10/25/16 10:00 Gram Stain - Final Abscess Wound Culture - Preliminary 10/24/16 18:45 Urine Culture - Final Urine - Urine Clean Catch NO GROWTH OBTAINED 10/24/16 16:45 Blood Culture - Preliminary Blood - Neeta Cath NO GROWTH OBTAINED AFTER 24 HOURS, INCUBATION TO CONTINUE FOR 4 DAYS. 10/24/16 15:00 Blood Culture - Preliminary Blood - Peripheral Venous NO GROWTH OBTAINED AFTER 24 HOURS, INCUBATION TO CONTINUE FOR 4 DAYS. 10/24/16 15:00 Blood Culture - Preliminary Blood - Peripheral Venous NO GROWTH OBTAINED AFTER 24 HOURS, INCUBATION TO CONTINUE FOR 4 DAYS. INR, PTT INR 3.84 (0.82-1.09) H 10/26/16 06:30 Physical Exam Gen: chronic ill appearance/ pale Heart: irregular Lung: decreased breath sounds at the bases Abd: soft, non tender, Ext: + + edema port + left side - chest A/P Metastatic Ovarian Cancer Malignant Pleural Effusion Shoulder Abscess s/p I&D IDDM COPD HTN Hyperlipidemia Atrial Fibrillation-- under control Morbid Obesity - continue antibiotics - f/u cultures - give mag- check level - f/u labs - coumadin on hold - monitor inr - daily oob - chair - montor bgm - will d/c fluids-- pt has edema and bp ok - monitor - surgery to follow - discussed with nursing staff. - will follow Problem List - Problems (1) A-fib Code(s): I48.91 - UNSPECIFIED ATRIAL FIBRILLATION (2) Abscess of upper back excluding scapular region Code(s): L02.212 - CUTANEOUS ABSCESS OF BACK [ANY PART, EXCEPT BUTTOCK] (3) Cancer of ovary Code(s): C56.9 - MALIGNANT NEOPLASM OF UNSPECIFIED OVARY (4) Supratherapeutic INR Code(s): R79.1 - ABNORMAL COAGULATION PROFILE (5) Hypothyroid Code(s): E03.9 - HYPOTHYROIDISM, UNSPECIFIED (6) Lymphedema Code(s): I89.0 - LYMPHEDEMA, NOT ELSEWHERE CLASSIFIED (7) Diabetes Code(s): E11.9 - TYPE 2 DIABETES MELLITUS WITHOUT COMPLICATIONS (8) Morbidly obese Code(s): E66.01 - MORBID (SEVERE) OBESITY DUE TO EXCESS CALORIES
--- NOTE | 2016-10-26 14:17 | PN ---
Progress Note, Physician - Current Medication List Current Medications: Active Medications Acetaminophen (Tylenol -) 650 mg PO Q4H PRN PRN Reason: FEVER OR PAIN Aclidinium [place] (Tudorza -) 1 puff IH BID [facility] Last Admin: 10/26/16 10:56 Dose: 1 puff Albuterol Sulfate (Ventolin 0.083% Nebulizer Soln -) 1 amp NEB Q4H PRN PRN Reason: SHORT OF BREATH/WHEEZING Last Admin: 10/26/16 06:30 Dose: 1 amp Atorvastatin Calcium (Lipitor -) 40 mg PO HS [facility] Last Admin: 10/25/16 21:56 Dose: 40 mg Diltiazem HCl (Cardizem Cd -) 300 mg PO DAILY [facility] Gabapentin (Neurontin -) 300 mg PO TID PRN PRN Reason: PAIN Piperacillin Sod/Tazobactam Sod (Zosyn 4.5gm Ivpb (Pre-Docked)) 100 mls @ 200 mls/hr IVPB Q8H-IV [facility] PRN Reason: Protocol Last Admin: 10/26/16 02:08 Dose: 200 mls/hr Vancomycin HCl 1,500 mg/ (Dextrose) 500 mls @ 250 mls/hr IVPB BID@0400,1600 [facility] PRN Reason: Protocol Last Admin: 10/26/16 03:59 Dose: 250 mls/hr Insulin Aspart (Novolog Vial Sliding Scale -) 0 vial SQ ACHS [facility] PRN Reason: Protocol Last Admin: 10/25/16 21:54 Dose: Not Given Insulin Detemir (Levemir Vial) 35 units SQ BID@0700,2200 [facility] Last Admin: 10/26/16 06:42 Dose: Not Given Levothyroxine Sodium (Synthroid -) 75 mcg PO DAILY@0700 [facility] Last Admin: 10/26/16 06:43 Dose: 75 mcg Loratadine (Claritin -) 10 mg PO DAILY [facility] Last Admin: 10/26/16 10:55 Dose: 10 mg Xalyw-0-Ltrz Ethyl Esters (Lovaza -) 1 gm PO TID [facility] Last Admin: 10/26/16 06:43 Dose: 1 gm Potassium Chloride (K-Dur -) 10 meq PO DAILY [facility] Last Admin: 10/26/16 10:55 Dose: 10 meq Ranitidine HCl (Zantac -) 150 mg PO BID [facility] Last Admin: 10/26/16 10:55 Dose: 150 mg - Objective Vital Signs: Vital Signs Temperature 99.5 F 10/26/16 06:00 Pulse Rate 90 10/26/16 06:00 Respiratory Rate 18 10/26/16 06:00 Blood Pressure 116/67 10/26/16 06:00 O2 Sat by Pulse Oximetry (%) 94 L 10/25/16 21:00 Labs: CBC, BMP 10/26/16 06:35 10/26/16 06:30 INR, PTT INR 3.84 (0.82-1.09) H 10/26/16 06:30 Problem List - Problems (1) Abscess of upper back excluding scapular region Code(s): L02.212 - CUTANEOUS ABSCESS OF BACK [ANY PART, EXCEPT BUTTOCK] (2) Primary cancer of ovary with widespread metastatic disease Code(s): C56.9 - MALIGNANT NEOPLASM OF UNSPECIFIED OVARY C80.0 - DISSEMINATED MALIGNANT NEOPLASM, UNSPECIFIED (3) Cancer of ovary Code(s): C56.9 - MALIGNANT NEOPLASM OF UNSPECIFIED OVARY (4) Morbidly obese Code(s): E66.01 - MORBID (SEVERE) OBESITY DUE TO EXCESS CALORIES (5) Cancer Code(s): C80.1 - MALIGNANT (PRIMARY) NEOPLASM, UNSPECIFIED (6) Congestive heart failure Code(s): I50.9 - HEART FAILURE, UNSPECIFIED Assessment/Plan S/P Drainage of abscess. Cultures are positive for gram positive cooci and bacilli. Continue wound care , antibiotics. Can be discharged for outpatient management.
[2016-10-26] MEDS: INSULIN SLIDING SCALE (NOVOLOG) 1 VIAL SQ SCH ×3 (16:50→21:46)
[2016-10-26] MEDS ORDERED: INSULIN (NOVOLOG) ASPART 100 UNITS/ML 10ML VIAL ONE (17:41)
--- NOTE | 2016-10-26 19:33 | PN ---
Progress Note (short form) - Note Progress Note: Patient seen and examined c/o Lt. chest wall swelling also cough Last Vital Signs Temp Pulse Resp BP Pulse Ox 98.6 F 93 H 20 112/61 94 L 10/26/16 14:08 10/26/16 14:08 10/26/16 14:10/26/16 14:10/25/16 21:00 Cor: RSR, No murmurs, No gallops Lungs: Clear to P&A Abd: Soft, Normal bowel sounds, No organomegaly Ext:sta Skin: No rashes, Integument intact Abnormal Lab Results 10/26/16 10/26/16 10/26/16 06:30 06:30 06:35 RBC 3.43 L Hgb 8.6 L D Hct 26.4 L MCV 76.9 L MCH 25.0 L RDW 17.7 H Plt Count 129 L Metamyelocytes 3 H D INR 3.84 H Potassium 3.4 L Active Medications Acetaminophen (Tylenol -) 650 mg PO Q4H PRN PRN Reason: FEVER OR PAIN Aclidinium [facility] [place] (Tudorza -) 1 puff IH BID [facility] Last Admin: 10/26/16 10:56 Dose: 1 puff Albuterol Sulfate (Ventolin 0.083% Nebulizer Soln -) 1 amp NEB Q4H PRN PRN Reason: SHORT OF BREATH/WHEEZING Last Admin: 10/26/16 06:30 Dose: 1 amp Atorvastatin Calcium (Lipitor -) 40 mg PO HS [facility] Last Admin: 10/25/16 21:56 Dose: 40 mg Diltiazem HCl (Cardizem Cd -) 300 mg PO DAILY [facility] Last Admin: 10/26/16 12:00 Dose: 300 mg Gabapentin (Neurontin -) 300 mg PO TID PRN PRN Reason: PAIN Piperacillin Sod/Tazobactam Sod (Zosyn 4.5gm Ivpb (Pre-Docked)) 100 mls @ 200 mls/hr IVPB Q8H-IV [facility] PRN Reason: Protocol Last Admin: 10/26/16 18:53 Dose: 200 mls/hr Vancomycin HCl 1,500 mg/ (Dextrose) 500 mls @ 250 mls/hr IVPB BID@0400,1600 [facility] PRN Reason: Protocol Last Admin: 10/26/16 18:54 Dose: 250 mls/hr Insulin Aspart (Novolog Vial Sliding Scale -) 0 vial SQ ACHS [facility] PRN Reason: Protocol Last Admin: 10/26/16 18:04 Dose: Not Given Insulin Detemir (Levemir Vial) 35 units SQ BID@0700,2200 [facility] Last Admin: 10/26/16 06:42 Dose: Not Given Levothyroxine Sodium (Synthroid -) 75 mcg PO DAILY@0700 [facility] Last Admin: 10/26/16 06:43 Dose: 75 mcg Loratadine (Claritin -) 10 mg PO DAILY [facility] Last Admin: 10/26/16 10:55 Dose: 10 mg Zlhgv-1-Wmdn Ethyl Esters (Lovaza -) 1 gm PO TID [facility] Last Admin: 10/26/16 14:40 Dose: 1 gm Potassium Chloride (K-Dur -) 10 meq PO DAILY [facility] Last Admin: 10/26/16 10:55 Dose: 10 meq Ranitidine HCl (Zantac -) 150 mg PO BID [facility] Last Admin: 10/26/16 10:55 Dose: 150 mg A?P 61 y/o patient with morbid obesity, metastatic ovarian cancer, on weekly carbo/ taxol, now with rt. shoulder abscess, low grade fevers On vanco/zosyn s/p I and D overall improved check u/s lt. chest anemia--chemo induced. monitor Problem List - Problems (1) Carbuncle and furuncle of neck Code(s): L02.12 - FURUNCLE OF NECK L02.13 - CARBUNCLE OF NECK (2) Cancer Code(s): C80.1 - MALIGNANT (PRIMARY) NEOPLASM, UNSPECIFIED (3) Acute dyspnea Code(s): R06.00 - DYSPNEA, UNSPECIFIED (4) A-fib Code(s): I48.91 - UNSPECIFIED ATRIAL FIBRILLATION (5) Pleural effusion Code(s): J90 - PLEURAL EFFUSION, NOT ELSEWHERE CLASSIFIED
[2016-10-26] MEDS ORDERED: PT OWN MED DRAWER 7, Y5N ONE (21:24)
[2016-10-26] MEDS: ATORVASTATIN CA 40 MG TABLET (FP) PO SCH (21:45)
[2016-10-27] MEDS: PIPERACILLIN/TAZOB 4.5 GM 100 ML IVPB SCH ×2 (01:32→09:17)
[2016-10-27] MEDS: VANCOMYCIN 1,500 MG in DEXTROSE 5%-WATER - 500 ML IVPB SCH ×2 (03:03→16:26)
[2016-10-27] MEDS: ALBUTEROL SO4 0.083% IH SOL 2.5 MG/3 ML VIAL.NEB. NEB PRN (05:55)
[2016-10-27] MEDS: INSULIN DETEMIR 100 UNITS/ML MDV SQ SCH ×2 (06:18→23:35)
[2016-10-27] MEDS: INSULIN SLIDING SCALE (NOVOLOG) 1 VIAL SQ SCH ×4 (06:18→21:49)
[2016-10-27] MEDS: OMEGA-3 ACID ETHYL ESTERS (FATTY-ACIDS) 1 GM CAPSULE (FP) PO SCH ×3 (06:19→21:41)
[2016-10-27] MEDS: LEVOTHYROXINE NA 75 MCG TABLET (FP) PO SCH (06:19)
[2016-10-27 07:15] LABS: MCH 25.3 pg (25.7-33.7); MCHC 32.7 g/dl (32.0-36.0); MEAN CELL VOLUME 77.3 fl (80-96); MEAN PLT VOLUME 9.4 fl (7.5-11.1); PLATELET COUNT 151 K/MM3 (134-434); RDW 18.3 % (11.6-15.6); WHITE BLOOD COUNT 5.1 K/mm3 (4.0-10.0)
[2016-10-27 07:52] LABS: INR 3.31 (0.82-1.09); PROTHROMBIN TIME (PATIENT) 37.3 SEC (9.98-11.88)
[2016-10-27] MEDS ORDERED: PT OWN MED DRAWER 7, Y5N ONE ×2 (08:35→21:12)
[2016-10-27] MEDS: RANITIDINE HCL 150 MG TABLET (FP) PO SCH ×2 (09:17→21:41)
[2016-10-27] MEDS: LORATADINE 10 MG TABLET PO SCH (09:17)
[2016-10-27] MEDS: ACLIDINIUM BROMIDE 400 MCG/INH AERO.POWD IH SCH ×2 (09:17→21:42)
[2016-10-27] MEDS: POTASSIUM CHLORIDE TABS 10 MEQ TABLET.ER (FP) PO SCH (09:17)
[2016-10-27 09:21] LABS: ALBUMIN 2.3 g/dl (3.4-5.0); ANION GAP 9 (8-16); CALCIUM 8.6 mg/dL (8.5-10.1); CO2 23 mmol/L (21-32); GLUCOSE,RANDOM 130 mg/dL (74-106); MAGNESIUM 2.2 mg/dL (1.8-2.4)
[2016-10-27 09:26] LABS: ALK PHOS 123 U/L (45-117); BILIRUBIN,TOTAL 0.9 mg/dL (0.2-1.0); CREATININE 0.8 mg/dL (0.55-1.02); SGOT/AST 16 U/L (15-37); SGPT/ALT 14 U/L (12-78); TOT PROT 5.8 g/dl (6.4-8.2)
--- NOTE | 2016-10-27 10:32 | PN ---
Progress Note (short form) - Note Progress Note: PULMONARY Denies shortness of breath, +cough with thick clear sputum. No fevers or chills. Last Vital Signs Temp Pulse Resp BP Pulse Ox 98.7 F 90 20 122/57 94 L 10/27/16 05:40 10/27/16 05:40 10/27/16 08:39 10/27/16 05:40 10/25/16 21:00 Gen: NAD at rest Heart: RRR Lung: decreased breath sounds at the bases Abd: soft, nontender, +obese Ext: + edema CBC, BMP 10/27/16 06:05 10/27/16 06:05 Active Medications Acetaminophen (Tylenol -) 650 mg PO Q4H PRN PRN Reason: FEVER OR PAIN Aclidinium [place] (Tudorza -) 1 puff IH BID [facility] Last Admin: 10/27/16 09:17 Dose: 1 puff Albuterol Sulfate (Ventolin 0.083% Nebulizer Soln -) 1 amp NEB Q4H PRN PRN Reason: SHORT OF BREATH/WHEEZING Last Admin: 10/27/16 05:55 Dose: 1 amp Atorvastatin Calcium (Lipitor -) 40 mg PO HS [facility] Last Admin: 10/26/16 21:45 Dose: 40 mg Diltiazem HCl (Cardizem Cd -) 300 mg PO DAILY [facility] Last Admin: 10/27/16 09:17 Dose: 300 mg Piperacillin Sod/Tazobactam Sod (Zosyn 4.5gm Ivpb (Pre-Docked)) 100 mls @ 200 mls/hr IVPB Q8H-IV [facility] PRN Reason: Protocol Last Admin: 10/27/16 09:17 Dose: 200 mls/hr Vancomycin HCl 1,500 mg/ (Dextrose) 500 mls @ 250 mls/hr IVPB BID@0400,1600 [facility] PRN Reason: Protocol Last Admin: 10/27/16 03:03 Dose: 250 mls/hr Insulin Aspart (Novolog Vial Sliding Scale -) 0 vial SQ ACHS [facility] PRN Reason: Protocol Last Admin: 10/27/16 06:18 Dose: Not Given Insulin Detemir (Levemir Vial) 35 units SQ BID@0700,2200 [facility] Last Admin: 10/27/16 06:18 Dose: Not Given Levothyroxine Sodium (Synthroid -) 75 mcg PO DAILY@0700 [facility] Last Admin: 10/27/16 06:19 Dose: 75 mcg Loratadine (Claritin -) 10 mg PO DAILY [facility] Last Admin: 10/27/16 09:17 Dose: 10 mg Xydyi-3-Zoxs Ethyl Esters (Lovaza -) 1 gm PO TID [facility] Last Admin: 10/27/16 06:19 Dose: 1 gm Potassium Chloride (K-Dur -) 10 meq PO DAILY [facility] Last Admin: 10/27/16 09:17 Dose: 10 meq Ranitidine HCl (Zantac -) 150 mg PO BID [facility] Last Admin: 10/27/16 09:17 Dose: 150 mg A/P Metastatic Ovarian Cancer Malignant Pleural Effusion s/p pleur-x placement/removal Shoulder Abscess s/p I&D LV Systolic Dysfunction COPD HTN DM Hyperlipidemia Atrial Fibrillation Morbid Obesity - continue antibiotics - f/u cultures - glucose control - O2 as needed - inhaled bronchodilators - rate controlled - anticoagulation to maintain INR 2-3 - DVT prophylaxis
--- NOTE | 2016-10-27 10:48 | PN ---
Progress Note (short form) - Note Progress Note: Pt seen/ examined weak/pale chronic ill appearance. denies pain. says she is ok Vital Signs Temp 98.7 F 10/27/16 05:40 Pulse 90 10/27/16 05:40 Resp 20 10/27/16 08:39 BP 122/57 10/27/16 05:40 Pulse Ox 94 L 10/25/16 21:00 Intake & Output 10/26/16 10/26/16 10/27/16 11:59 23:59 11:59 Intake Total 2620 270 550 Balance 2620 270 550 Weight 350 lb 12.8 oz 349 lb 9 oz Intake: IV 950 Normal Saline - 1,000 ml 950 @ 50 mls/hr IV ASDIR [facility] Rx#:[id number] IVPB 1050 550 Oral 620 270 Other: Voiding Method Toilet Toilet Toilet # Unmeasured Voids Void 1 3 Bowel Movement No No Weight Measurement Method Standing Scale Standing Scale Active Medications Acetaminophen (Tylenol -) 650 mg PO Q4H PRN PRN Reason: FEVER OR PAIN Aclidinium [place] (Tudorza -) 1 puff IH BID [facility] Last Admin: 10/27/16 09:17 Dose: 1 puff Albuterol Sulfate (Ventolin 0.083% Nebulizer Soln -) 1 amp NEB Q4H PRN PRN Reason: SHORT OF BREATH/WHEEZING Last Admin: 10/27/16 05:55 Dose: 1 amp Atorvastatin Calcium (Lipitor -) 40 mg PO HS [facility] Last Admin: 10/26/16 21:45 Dose: 40 mg Diltiazem HCl (Cardizem Cd -) 300 mg PO DAILY [facility] Last Admin: 10/27/16 09:17 Dose: 300 mg Piperacillin Sod/Tazobactam Sod (Zosyn 4.5gm Ivpb (Pre-Docked)) 100 mls @ 200 mls/hr IVPB Q8H-IV [facility] PRN Reason: Protocol Last Admin: 10/27/16 09:17 Dose: 200 mls/hr Vancomycin HCl 1,500 mg/ (Dextrose) 500 mls @ 250 mls/hr IVPB BID@0400,1600 [facility] PRN Reason: Protocol Last Admin: 10/27/16 03:03 Dose: 250 mls/hr Insulin Aspart (Novolog Vial Sliding Scale -) 0 vial SQ ACHS [facility] PRN Reason: Protocol Last Admin: 10/27/16 06:18 Dose: Not Given Insulin Detemir (Levemir Vial) 35 units SQ BID@0700,2200 [facility] Last Admin: 10/27/16 06:18 Dose: Not Given Levothyroxine Sodium (Synthroid -) 75 mcg PO DAILY@0700 [facility] Last Admin: 10/27/16 06:19 Dose: 75 mcg Loratadine (Claritin -) 10 mg PO DAILY [facility] Last Admin: 10/27/16 09:17 Dose: 10 mg Rabyg-8-Sylo Ethyl Esters (Lovaza -) 1 gm PO TID [facility] Last Admin: 10/27/16 06:19 Dose: 1 gm Potassium Chloride (K-Dur -) 10 meq PO DAILY [facility] Last Admin: 10/27/16 09:17 Dose: 10 meq Ranitidine HCl (Zantac -) 150 mg PO BID [facility] Last Admin: 10/27/16 09:17 Dose: 150 mg CBC, BMP 10/27/16 06:05 10/27/16 06:05 INR, PTT INR 3.31 (0.82-1.09) H 10/27/16 06:05 Microbiology 10/25/16 10:00 Gram Stain - Final Abscess Wound Culture - Preliminary NO GROWTH OBTAINED AFTER 24 HOURS INCUBATION, REINCUBATED. 10/24/16 16:45 Blood Culture - Preliminary Blood - Neeta Cath NO GROWTH OBTAINED AFTER 48 HOURS, INCUBATION TO CONTINUE FOR 3 DAYS. 10/24/16 15:00 Blood Culture - Preliminary Blood - Peripheral Venous NO GROWTH OBTAINED AFTER 48 HOURS, INCUBATION TO CONTINUE FOR 3 DAYS. 10/24/16 15:00 Blood Culture - Preliminary Blood - Peripheral Venous NO GROWTH OBTAINED AFTER 48 HOURS, INCUBATION TO CONTINUE FOR 3 DAYS. 10/24/16 18:45 Urine Culture - Final Urine - Urine Clean Catch NO GROWTH OBTAINED Physical Exam Gen: chronic ill appearance/ pale Heart: irregular Lung: decreased breath sounds at the bases-- Abd: soft, non tender, Ext: + + edema port + left side - chest -- A/P Metastatic Ovarian Cancer Malignant Pleural Effusion Shoulder Abscess s/p I&D IDDM COPD HTN Hyperlipidemia Atrial Fibrillation-- under control Morbid Obesity - continue antibiotics - f/u cultures - - Coumadin on hold - monitor inr - daily oob - chair - monitor bgm - u/s chest ordered by Dr. Miller for swelling of left side chest wall - will follow Problem List - Problems (1) A-fib Code(s): I48.91 - UNSPECIFIED ATRIAL FIBRILLATION (2) Abscess of upper back excluding scapular region Code(s): L02.212 - CUTANEOUS ABSCESS OF BACK [ANY PART, EXCEPT BUTTOCK] (3) Cancer of ovary Code(s): C56.9 - MALIGNANT NEOPLASM OF UNSPECIFIED OVARY (4) Supratherapeutic INR Code(s): R79.1 - ABNORMAL COAGULATION PROFILE (5) Hypothyroid Code(s): E03.9 - HYPOTHYROIDISM, UNSPECIFIED (6) Lymphedema Code(s): I89.0 - LYMPHEDEMA, NOT ELSEWHERE CLASSIFIED (7) Diabetes Code(s): E11.9 - TYPE 2 DIABETES MELLITUS WITHOUT COMPLICATIONS (8) Morbidly obese Code(s): E66.01 - MORBID (SEVERE) OBESITY DUE TO EXCESS CALORIES
[2016-10-27] MEDS ORDERED: INSULIN (NOVOLOG) ASPART 100 UNITS/ML 10ML VIAL ONE ×3 (11:27→21:12)
--- NOTE | 2016-10-27 13:03 | PN ---
Progress Note, Physician History of Present Illness: No c/o shoulder pain Afebrile WBC 5.1 Wound c/s no growth - Current Medication List Current Medications: Active Medications Acetaminophen (Tylenol -) 650 mg PO Q4H PRN PRN Reason: FEVER OR PAIN Aclidinium [place] (Tudorza -) 1 puff IH BID [facility] Last Admin: 10/27/16 09:17 Dose: 1 puff Albuterol Sulfate (Ventolin 0.083% Nebulizer Soln -) 1 amp NEB Q4H PRN PRN Reason: SHORT OF BREATH/WHEEZING Last Admin: 10/27/16 05:55 Dose: 1 amp Atorvastatin Calcium (Lipitor -) 40 mg PO HS [facility] Last Admin: 10/26/16 21:45 Dose: 40 mg Diltiazem HCl (Cardizem Cd -) 300 mg PO DAILY [facility] Last Admin: 10/27/16 09:17 Dose: 300 mg Piperacillin Sod/Tazobactam Sod (Zosyn 4.5gm Ivpb (Pre-Docked)) 100 mls @ 200 mls/hr IVPB Q8H-IV [facility] PRN Reason: Protocol Last Admin: 10/27/16 09:17 Dose: 200 mls/hr Vancomycin HCl 1,500 mg/ (Dextrose) 500 mls @ 250 mls/hr IVPB BID@0400,1600 [facility] PRN Reason: Protocol Last Admin: 10/27/16 03:03 Dose: 250 mls/hr Insulin Aspart (Novolog Vial Sliding Scale -) 0 vial SQ ACHS [facility] PRN Reason: Protocol Last Admin: 10/27/16 12:20 Dose: 4 units Insulin Detemir (Levemir Vial) 35 units SQ BID@0700,2200 [facility] Last Admin: 10/27/16 06:18 Dose: Not Given Levothyroxine Sodium (Synthroid -) 75 mcg PO DAILY@0700 [facility] Last Admin: 10/27/16 06:19 Dose: 75 mcg Loratadine (Claritin -) 10 mg PO DAILY [facility] Last Admin: 10/27/16 09:17 Dose: 10 mg Gyivu-8-Nupj Ethyl Esters (Lovaza -) 1 gm PO TID [facility] Last Admin: 10/27/16 06:19 Dose: 1 gm Potassium Chloride (K-Dur -) 10 meq PO DAILY [facility] Last Admin: 10/27/16 09:17 Dose: 10 meq Ranitidine HCl (Zantac -) 150 mg PO BID [facility] Last Admin: 10/27/16 09:17 Dose: 150 mg - Objective Vital Signs: Vital Signs Temperature 98.7 F 10/27/16 05:40 Pulse Rate 90 10/27/16 05:40 Respiratory Rate 20 10/27/16 08:39 Blood Pressure 122/57 10/27/16 05:40 O2 Sat by Pulse Oximetry (%) 94 L 10/25/16 21:00 Constitutional: Yes: No Distress Eyes: Yes: Conjunctiva Clear Cardiovascular: Yes: Regular Rate and Rhythm, S1, S2 Respiratory: Yes: CTA Bilaterally Gastrointestinal: Yes: Normal Bowel Sounds, Soft, Abdomen, Obese. No: Tenderness Edema: Yes Integumentary: Yes: Other (shoulder incisional wound with packing decreased induration no erythema) Labs: CBC, BMP 10/27/16 06:05 10/27/16 06:05 INR, PTT INR 3.31 (0.82-1.09) H 10/27/16 06:05 Assessment/Plan S/P I&D R shoulder abscess Ovarian ca Wound c/s (-) Continue vanco D/C zosyn PO antibiotics am
--- NOTE | 2016-10-27 14:02 | PN ---
Progress Note, Physician - Current Medication List Current Medications: Active Medications Acetaminophen (Tylenol -) 650 mg PO Q4H PRN PRN Reason: FEVER OR PAIN Aclidinium [place] (Tudorza -) 1 puff IH BID [facility] Last Admin: 10/27/16 09:17 Dose: 1 puff Albuterol Sulfate (Ventolin 0.083% Nebulizer Soln -) 1 amp NEB Q4H PRN PRN Reason: SHORT OF BREATH/WHEEZING Last Admin: 10/27/16 05:55 Dose: 1 amp Atorvastatin Calcium (Lipitor -) 40 mg PO HS [facility] Last Admin: 10/26/16 21:45 Dose: 40 mg Diltiazem HCl (Cardizem Cd -) 300 mg PO DAILY [facility] Last Admin: 10/27/16 09:17 Dose: 300 mg Vancomycin HCl 1,500 mg/ (Dextrose) 500 mls @ 250 mls/hr IVPB BID@0400,1600 [facility] PRN Reason: Protocol Last Admin: 10/27/16 03:03 Dose: 250 mls/hr Insulin Aspart (Novolog Vial Sliding Scale -) 0 vial SQ ACHS [facility] PRN Reason: Protocol Last Admin: 10/27/16 12:20 Dose: 4 units Insulin Detemir (Levemir Vial) 35 units SQ BID@0700,2200 [facility] Last Admin: 10/27/16 06:18 Dose: Not Given Levothyroxine Sodium (Synthroid -) 75 mcg PO DAILY@0700 [facility] Last Admin: 10/27/16 06:19 Dose: 75 mcg Loratadine (Claritin -) 10 mg PO DAILY [facility] Last Admin: 10/27/16 09:17 Dose: 10 mg Khjpe-7-Pnwj Ethyl Esters (Lovaza -) 1 gm PO TID [facility] Last Admin: 10/27/16 06:19 Dose: 1 gm Potassium Chloride (K-Dur -) 10 meq PO DAILY [facility] Last Admin: 10/27/16 09:17 Dose: 10 meq Ranitidine HCl (Zantac -) 150 mg PO BID [facility] Last Admin: 10/27/16 09:17 Dose: 150 mg - Objective Vital Signs: Vital Signs Temperature 98.7 F 10/27/16 05:40 Pulse Rate 90 10/27/16 05:40 Respiratory Rate 20 10/27/16 08:39 Blood Pressure 122/57 10/27/16 05:40 O2 Sat by Pulse Oximetry (%) 94 L 10/25/16 21:00 Labs: CBC, BMP 10/27/16 06:05 10/27/16 06:05 INR, PTT INR 3.31 (0.82-1.09) H 10/27/16 06:05 Problem List - Problems (1) Abscess of upper back excluding scapular region Code(s): L02.212 - CUTANEOUS ABSCESS OF BACK [ANY PART, EXCEPT BUTTOCK] (2) Primary cancer of ovary with widespread metastatic disease Code(s): C56.9 - MALIGNANT NEOPLASM OF UNSPECIFIED OVARY C80.0 - DISSEMINATED MALIGNANT NEOPLASM, UNSPECIFIED (3) Cancer of ovary Code(s): C56.9 - MALIGNANT NEOPLASM OF UNSPECIFIED OVARY (4) Morbidly obese Code(s): E66.01 - MORBID (SEVERE) OBESITY DUE TO EXCESS CALORIES (5) Cancer Code(s): C80.1 - MALIGNANT (PRIMARY) NEOPLASM, UNSPECIFIED (6) Congestive heart failure Code(s): I50.9 - HEART FAILURE, UNSPECIFIED Assessment/Plan Surgery: Wound is improving, Culture are Staph coagulase positive . On vancomycin. Will sign off for now.
--- NOTE | 2016-10-27 17:27 | PN ---
Progress Note (short form) - Note Progress Note: Patient seen and examined c/o Lt. chest wall swelling also cough c/o dizziness, worn out Last Vital Signs Temp Pulse Resp BP Pulse Ox 99.8 F H 80 20 132/57 94 L 10/27/16 19:02 10/27/16 19:02 10/27/16 19:02 10/27/16 19:02 10/25/16 21:00 Cor: RSR, No murmurs, No gallops Lungs: Clear to P&A Abd: Soft, Normal bowel sounds, No organomegaly Ext:sta Skin: No rashes, Integument intact Abnormal Lab Results 10/27/16 10/27/16 10/27/16 06:05 06:05 06:05 RBC 3.57 L Hgb 9.0 L Hct 27.6 L MCV 77.3 L MCH 25.3 L RDW 18.3 H INR 3.31 H Sodium 134 L Random Glucose 130 H D Alkaline Phosphatase 123 H D Total Protein 5.8 L Albumin 2.3 L Home Medication List Medication Instructions Recorded Confirmed Type Levothyroxine [Synthroid -] 75 mcg PO DAILY 10/17/12 10/24/16 History Loratadine [Claritin -] 10 mg PO DAILY 10/17/12 10/24/16 History Metformin HCl [Glucophage] 500 mg PO BID 10/17/12 10/24/16 History [place]-3 Acid Ethyl Esters [Lovaza 1,000 mg PO TID 10/17/12 10/24/16 History -] Simvastatin [Zocor -] 40 mg PO HS 10/17/12 10/24/16 History Insulin Aspart [Novolog Flexpen] 35 unit SQ BID 10/14/16 10/24/16 History Warfarin Na [Coumadin -] 3 mg PO HS 10/14/16 10/25/16 History Gabapentin [Neurontin] 300 mg PO TID 10/24/16 10/24/16 History Potassium Chloride 10 meq PO DAILY 10/24/16 10/24/16 History Umeclidinium [place] [Incruse 1 puff IH DAILY 10/24/16 10/24/16 History Ellipta] Bumetanide [Bumex -] 1 mg PO BID 10/25/16 10/25/16 History Diltiazem Cd [Cardizem Cd -] 300 mg PO DAILY 10/25/16 10/25/16 History Spironolactone [Aldactone] 50 mg PO DAILY 10/25/16 10/25/16 History Active Medications Generic Name Dose Route Start Last Admin Trade Name Freq PRN Reason Stop Dose Admin Acetaminophen 650 mg 10/24/16 16:43 Tylenol - PO Q4H PRN FEVER OR PAIN Aclidinium [place] 1 puff 10/24/16 22:00 10/27/16 09:17 Tudorza - IH 1 puff BID [facility] Administration Albuterol Sulfate 1 amp 10/24/16 16:43 10/27/16 05:55 Ventolin 0.083% Nebulizer Soln - NEB 1 amp Q4H PRN Administration SHORT OF BREATH/WHEEZING Atorvastatin Calcium 40 mg 10/24/16 22:00 10/26/16 21:45 Lipitor - PO 40 mg HS [facility] Administration Diltiazem HCl 300 mg 10/26/16 11:00 10/27/16 09:17 Cardizem Cd - PO 300 mg DAILY [facility] Administration Vancomycin HCl 1,500 mg/ 500 mls @ 250 mls/hr 10/25/16 16:00 10/27/16 16:26 Dextrose IVPB 250 mls/hr BID@0400,1600 [facility] Administration Protocol Insulin Aspart 0 vial 10/24/16 22:00 10/27/16 16:26 Novolog Vial Sliding Scale - SQ Not Given ACHS [facility] Protocol Insulin Detemir 35 units 10/24/16 22:00 10/27/16 06:18 Levemir Vial SQ Not Given BID@0700,2200 [facility] Levothyroxine Sodium 75 mcg 10/25/16 07:00 10/27/16 06:19 Synthroid - PO 75 mcg DAILY@0700 [facility] Administration Loratadine 10 mg 10/25/16 10:00 10/27/16 09:17 Claritin - PO 10 mg DAILY [facility] Administration Chkso-5-Mcpc Ethyl Esters 1 gm 10/24/16 22:00 10/27/16 16:26 Lovaza - PO 1 gm TID [facility] Administration Potassium Chloride 10 meq 10/25/16 10:00 10/27/16 09:17 K-Dur - PO 10 meq DAILY [facility] Administration Ranitidine HCl 150 mg 10/24/16 22:00 10/27/16 09:17 Zantac - PO 150 mg BID [facility] Administration A?P 61 y/o patient with morbid obesity, metastatic ovarian cancer, on weekly carbo/ taxol, now with rt. shoulder abscess, low grade fevers On vanco/zosyn s/p I and D fevers check u/s lt. chest ? CT chest anemia--chemo induced. will transfused 1 unit PRBCs Problem List - Problems (1) Carbuncle and furuncle of neck Code(s): L02.12 - FURUNCLE OF NECK L02.13 - CARBUNCLE OF NECK (2) Cancer Code(s): C80.1 - MALIGNANT (PRIMARY) NEOPLASM, UNSPECIFIED (3) Acute dyspnea Code(s): R06.00 - DYSPNEA, UNSPECIFIED (4) A-fib Code(s): I48.91 - UNSPECIFIED ATRIAL FIBRILLATION (5) Pleural effusion Code(s): J90 - PLEURAL EFFUSION, NOT ELSEWHERE CLASSIFIED
[2016-10-27] MEDS ORDERED: SODIUM CHLORIDE 1,000 ML IV SCH (19:45)
[2016-10-27] MEDS: ATORVASTATIN CA 40 MG TABLET (FP) PO SCH (21:41)
[2016-10-28] MEDS: INSULIN DETEMIR 100 UNITS/ML MDV SQ SCH ×2 (06:04→23:02)
[2016-10-28] MEDS: LEVOTHYROXINE NA 75 MCG TABLET (FP) PO SCH (06:04)
[2016-10-28] MEDS: OMEGA-3 ACID ETHYL ESTERS (FATTY-ACIDS) 1 GM CAPSULE (FP) PO SCH ×3 (06:04→23:06)
[2016-10-28] MEDS: INSULIN SLIDING SCALE (NOVOLOG) 1 VIAL SQ SCH ×4 (06:05→22:55)
[2016-10-28] MEDS ORDERED: INSULIN (NOVOLOG) ASPART 100 UNITS/ML 10ML VIAL ONE ×2 (06:40→14:22)
[2016-10-28 08:18] LABS: MCH 25.6 pg (25.7-33.7); MCHC 32.7 g/dl (32.0-36.0); MEAN CELL VOLUME 78.4 fl (80-96); MEAN PLT VOLUME 9.3 fl (7.5-11.1); PLATELET COUNT 132 K/MM3 (134-434); RDW 19.2 % (11.6-15.6); WHITE BLOOD COUNT 4.3 K/mm3 (4.0-10.0)
[2016-10-28 08:37] LABS: INR 3.5 (0.82-1.09); PROTHROMBIN TIME (PATIENT) 39.5 SEC (9.98-11.88)
--- NOTE | 2016-10-28 10:41 | PN ---
Progress Note (short form) - Note Progress Note: Pt seen/ examined looks better sitting in chair got one unit of prbcs last night denies pain. eating -ok Vital Signs Temp 98.2 F 10/28/16 09:39 Pulse 88 10/28/16 09:39 Resp 18 10/28/16 09:39 BP 116/65 10/28/16 09:39 Pulse Ox 95 10/28/16 09:00 Intake & Output 10/27/16 10/27/16 10/28/16 11:59 23:59 11:59 Intake Total 550 600 840 Balance 550 600 840 Weight 349 lb 9 oz 348 lb 11.2 oz Intake: IV 200 Normal Saline - 1,000 ml 200 @ 50 mls/hr IV ASDIR [facility] Rx#:[id number] IVPB 550 100 Oral 600 240 Packed Cells 300 Other: Voiding Method Toilet Toilet Toilet # Unmeasured Voids Void 3 2 2 Bowel Movement No Yes No Weight Measurement Method Standing Scale Standing Scale Active Medications Acetaminophen (Tylenol -) 650 mg PO Q4H PRN PRN Reason: FEVER OR PAIN Last Admin: 10/28/16 00:04 Dose: 650 mg Aclidinium [place] (Tudorza -) 1 puff IH BID [facility] Last Admin: 10/27/16 21:42 Dose: 1 puff Albuterol Sulfate (Ventolin 0.083% Nebulizer Soln -) 1 amp NEB Q4H PRN PRN Reason: SHORT OF BREATH/WHEEZING Last Admin: 10/27/16 05:55 Dose: 1 amp Atorvastatin Calcium (Lipitor -) 40 mg PO HS [facility] Last Admin: 10/27/16 21:41 Dose: 40 mg Diltiazem HCl (Cardizem Cd -) 300 mg PO DAILY [facility] Last Admin: 10/27/16 09:17 Dose: 300 mg Vancomycin HCl 1,500 mg/ (Dextrose) 500 mls @ 250 mls/hr IVPB BID@0400,1600 [facility] PRN Reason: Protocol Last Admin: 10/27/16 16:26 Dose: 250 mls/hr Insulin Aspart (Novolog Vial Sliding Scale -) 0 vial SQ ACHS [facility] PRN Reason: Protocol Last Admin: 10/28/16 06:05 Dose: Not Given Insulin Detemir (Levemir Vial) 35 units SQ BID@0700,2200 [facility] Last Admin: 10/28/16 06:04 Dose: Not Given Levothyroxine Sodium (Synthroid -) 75 mcg PO DAILY@0700 [facility] Last Admin: 10/28/16 06:04 Dose: 75 mcg Loratadine (Claritin -) 10 mg PO DAILY [facility] Last Admin: 10/27/16 09:17 Dose: 10 mg Omdfj-9-Ivci Ethyl Esters (Lovaza -) 1 gm PO TID [facility] Last Admin: 10/28/16 06:04 Dose: 1 gm Potassium Chloride (K-Dur -) 10 meq PO DAILY [facility] Last Admin: 10/27/16 09:17 Dose: 10 meq Ranitidine HCl (Zantac -) 150 mg PO BID [facility] Last Admin: 10/27/16 21:41 Dose: 150 mg CBC, BMP 10/28/16 06:00 10/27/16 06:05 Microbiology 10/25/16 10:00 Gram Stain - Final Abscess Wound Culture - Preliminary NO GROWTH OBTAINED AFTER 24 HOURS INCUBATION, REINCUBATED. 10/24/16 16:45 Blood Culture - Preliminary Blood - Neeta Cath NO GROWTH OBTAINED AFTER 48 HOURS, INCUBATION TO CONTINUE FOR 3 DAYS. 10/24/16 15:00 Blood Culture - Preliminary Blood - Peripheral Venous NO GROWTH OBTAINED AFTER 48 HOURS, INCUBATION TO CONTINUE FOR 3 DAYS. 10/24/16 15:00 Blood Culture - Preliminary Blood - Peripheral Venous NO GROWTH OBTAINED AFTER 48 HOURS, INCUBATION TO CONTINUE FOR 3 DAYS. 10/24/16 18:45 Urine Culture - Final Urine - Urine Clean Catch NO GROWTH OBTAINED Physical Exam Gen: alert and awake Heart: irregular Lung: decreased breath sounds at the bases--swelling + at left side-- chest tube side Abd: soft, non tender, Ext: + + edema port + left side - chest -- A/P Metastatic Ovarian Cancer Malignant Pleural Effusion Shoulder Abscess s/p I&D IDDM COPD HTN Hyperlipidemia Atrial Fibrillation-- under control Morbid Obesity - overall better - continue antibiotics per i/d - - - Coumadin on hold - monitor inr - daily oob - chair - monitor bgm - u/s chest ordered by Dr. Miller for swelling of left side chest wall--pending - d/c planning ?-- pt reports Dr. Miller told she will start on chemo again before discharge - will follow and discuss with Dr. Miller. Problem List - Problems (1) A-fib Code(s): I48.91 - UNSPECIFIED ATRIAL FIBRILLATION (2) Abscess of upper back excluding scapular region Code(s): L02.212 - CUTANEOUS ABSCESS OF BACK [ANY PART, EXCEPT BUTTOCK] (3) Cancer of ovary Code(s): C56.9 - MALIGNANT NEOPLASM OF UNSPECIFIED OVARY (4) Supratherapeutic INR Code(s): R79.1 - ABNORMAL COAGULATION PROFILE (5) Hypothyroid Code(s): E03.9 - HYPOTHYROIDISM, UNSPECIFIED (6) Lymphedema Code(s): I89.0 - LYMPHEDEMA, NOT ELSEWHERE CLASSIFIED (7) Diabetes Code(s): E11.9 - TYPE 2 DIABETES MELLITUS WITHOUT COMPLICATIONS (8) Morbidly obese Code(s): E66.01 - MORBID (SEVERE) OBESITY DUE TO EXCESS CALORIES
[2016-10-28] MEDS: LORATADINE 10 MG TABLET PO SCH (10:44)
[2016-10-28] MEDS: RANITIDINE HCL 150 MG TABLET (FP) PO SCH ×2 (10:45→23:06)
[2016-10-28] MEDS: POTASSIUM CHLORIDE TABS 10 MEQ TABLET.ER (FP) PO SCH (10:45)
[2016-10-28] MEDS: ACLIDINIUM BROMIDE 400 MCG/INH AERO.POWD IH SCH ×2 (10:45→22:04)
--- NOTE | 2016-10-28 11:32 | PN ---
Progress Note, Physician Chief Complaint: S/P I & D of R shoulder abscess, with background Metastatic ovarian cancer and chemo 2cm dressing over right shoulder, appears clean and dry, non bloody 3rd day on vancomycin, negative wound culture ?coughing occasionally feels better today, skips meals she does not like Had one pint of blood transfused yesterday and was told the hgb still dropped overnight and is anxious about her blood numbers Has a family history of blood disorders, father about 30years ago to leukemia, and brother about 20 years ago to ?polycytemia - Current Medication List Current Medications: Active Medications Acetaminophen (Tylenol -) 650 mg PO Q4H PRN PRN Reason: FEVER OR PAIN Last Admin: 10/28/16 00:04 Dose: 650 mg Aclidinium [place] (Tudorza -) 1 puff IH BID [facility] Last Admin: 10/28/16 10:45 Dose: 1 puff Albuterol Sulfate (Ventolin 0.083% Nebulizer Soln -) 1 amp NEB Q4H PRN PRN Reason: SHORT OF BREATH/WHEEZING Last Admin: 10/27/16 05:55 Dose: 1 amp Atorvastatin Calcium (Lipitor -) 40 mg PO HS [facility] Last Admin: 10/27/16 21:41 Dose: 40 mg Diltiazem HCl (Cardizem Cd -) 300 mg PO DAILY [facility] Last Admin: 10/28/16 10:45 Dose: 300 mg Vancomycin HCl 1,500 mg/ (Dextrose) 500 mls @ 250 mls/hr IVPB BID@0400,1600 [facility] PRN Reason: Protocol Last Admin: 10/27/16 16:26 Dose: 250 mls/hr Insulin Aspart (Novolog Vial Sliding Scale -) 0 vial SQ ACHS [facility] PRN Reason: Protocol Last Admin: 10/28/16 06:05 Dose: Not Given Insulin Detemir (Levemir Vial) 35 units SQ BID@0700,2200 [facility] Last Admin: 10/28/16 06:04 Dose: Not Given Levothyroxine Sodium (Synthroid -) 75 mcg PO DAILY@0700 [facility] Last Admin: 10/28/16 06:04 Dose: 75 mcg Loratadine (Claritin -) 10 mg PO DAILY [facility] Last Admin: 10/28/16 10:44 Dose: 10 mg Diwsa-1-Ztkh Ethyl Esters (Lovaza -) 1 gm PO TID [facility] Last Admin: 10/28/16 06:04 Dose: 1 gm Potassium Chloride (K-Dur -) 10 meq PO DAILY [facility] Last Admin: 10/28/16 10:45 Dose: 10 meq Ranitidine HCl (Zantac -) 150 mg PO BID [facility] Last Admin: 10/28/16 10:45 Dose: 150 mg - Objective Vital Signs: Vital Signs Temperature 98.2 F 10/28/16 09:39 Pulse Rate 88 10/28/16 09:39 Respiratory Rate 18 10/28/16 09:39 Blood Pressure 116/65 10/28/16 09:39 O2 Sat by Pulse Oximetry (%) 95 10/28/16 09:00 Constitutional: Yes: Anxious (cried while giving family history of blood disorders and deaths in family), Obese, Pallor Eyes: Yes: Conjunctiva Clear. No: Sclera Icterus HENT: Yes: Atraumatic. No: Drooling, Nasal Congestion Neck: Yes: Supple. No: Tenderness Cardiovascular: Yes: Pulse Irregular, S1, S2 Respiratory: Yes: Diminished (diminished breath sounds bilaterally). No: On Nasal O2, On Venti-Mask, Rales, Rhonchi, Wheezes Gastrointestinal: Yes: Abdomen, Obese. No: Tenderness ...Rectal Exam: Yes: Deferred Genitourinary: No: Anuria, [place] Present Edema: Yes Edema: LLE: 3+, RLE: 3+ Wound/Incision: Yes: Dressing Dry and Intact (dressing over extubated chest tube site,L lower chest last change 2 days ago), Other (Extubated L chest tube site dressing 2 days and slightly soaked) Neurological: Yes: Alert, Oriented Labs: CBC, BMP 10/28/16 06:00 10/27/16 06:05 INR, PTT INR 3.50 (0.82-1.09) H 10/28/16 06:00 Problem List - Problems (1) Abscess Code(s): L02.91 - CUTANEOUS ABSCESS, UNSPECIFIED (2) Primary cancer of ovary with widespread metastatic disease Code(s): C56.9 - MALIGNANT NEOPLASM OF UNSPECIFIED OVARY C80.0 - DISSEMINATED MALIGNANT NEOPLASM, UNSPECIFIED Impression/Plan Impression/Plan: wound culture grew normal ruth urine and blood culture did not grow anything Plan: Stop Vancomycin Start cephalexin Have extubated chest tube site wound dressed Visit type - Emergency Visit Emergency Visit: No - New Patient This patient is new to me today: No - Critical Care Critical Care patient: No - Discharge Referral Referred to [facility] Med P.C.: No
[2016-10-28] MEDS ORDERED: PORTA CATH FLUSH 10 ML IVPUSH PRN (13:50)
--- NOTE | 2016-10-28 14:16 | PN ---
Teaching Attending Note Name of Resident: Bridget Washington ATTENDING PHYSICIAN STATEMENT I saw and evaluated the patient. I reviewed the resident's note and discussed the case with the resident. I agree with the resident's findings and plan as documented. SUBJECTIVE: eating poorly no fevers OBJECTIVE: Vital Signs Period Temp Pulse Resp BP Sys/Dinero Pulse Ox Last 24 Hr 97.8 F-99.8 F 80-97 18-20 108-132/57-82 95-95 cor-rrr lungs clear, few crackles right base skin- abscess no erythema or induration, scant serous draiange chest tube site with open ulcer, no erythema, no drainage abd soft, ext bilateral lymphedema CBC, BMP 10/28/16 06:00 10/27/16 06:05 Microbiology 10/25/16 10:00 Abscess Gram Stain - Final 10/25/16 10:00 Abscess Wound Culture - Final Staphylococcus Coagulase Neg Diphtheroid/Corynebacterium 10/24/16 16:45 Blood - Neeta Cath Blood Culture - Preliminary NO GROWTH OBTAINED AFTER 72 HOURS, INCUBATION TO CONTINUE FOR 2 DAYS. 10/24/16 15:00 Blood - Peripheral Venous Blood Culture - Preliminary NO GROWTH OBTAINED AFTER 72 HOURS, INCUBATION TO CONTINUE FOR 2 DAYS. 10/24/16 15:00 Blood - Peripheral Venous Blood Culture - Preliminary NO GROWTH OBTAINED AFTER 72 HOURS, INCUBATION TO CONTINUE FOR 2 DAYS. 10/24/16 18:45 Urine - Urine Clean Catch Urine Culture - Final NO GROWTH OBTAINED ASSESSMENT AND PLAN: s/p drainage of abscess- last dose vancomycin today can switch to po keflex 500 tid for 7 days
[2016-10-28] MEDS: VANCOMYCIN 1,500 MG in DEXTROSE 5%-WATER - 500 ML IVPB SCH (16:32)
--- NOTE | 2016-10-28 16:32 | PN ---
Progress Note, Physician History of Present Illness: PULMONARY ALERT,NAD,-CP,-SOB - Current Medication List Current Medications: Active Medications Acetaminophen (Tylenol -) 650 mg PO Q4H PRN PRN Reason: FEVER OR PAIN Last Admin: 10/28/16 00:04 Dose: 650 mg Aclidinium [place] (Tudorza -) 1 puff IH BID [facility] Last Admin: 10/28/16 10:45 Dose: 1 puff Albuterol Sulfate (Ventolin 0.083% Nebulizer Soln -) 1 amp NEB Q4H PRN PRN Reason: SHORT OF BREATH/WHEEZING Last Admin: 10/27/16 05:55 Dose: 1 amp Amoxicillin/Clavulanate Potassium (Augmentin - 875mg Tablet) 1 tab PO BID@0800, 1730 [facility] Atorvastatin Calcium (Lipitor -) 40 mg PO HS [facility] Last Admin: 10/27/16 21:41 Dose: 40 mg Diltiazem HCl (Cardizem Cd -) 300 mg PO DAILY [facility] Last Admin: 10/28/16 10:45 Dose: 300 mg IV Flush (Neeta-Cath Flush) 5 ml IVPUSH PRN PRN PRN Reason: FLUSH Vancomycin HCl 1,500 mg/ (Dextrose) 500 mls @ 250 mls/hr IVPB BID@0400,1600 [facility] PRN Reason: Protocol Stop: 10/29/16 23:59 Last Admin: 10/27/16 16:26 Dose: 250 mls/hr Insulin Aspart (Novolog Vial Sliding Scale -) 0 vial SQ ACHS [facility] PRN Reason: Protocol Last Admin: 10/28/16 14:51 Dose: 2 units Insulin Detemir (Levemir Vial) 35 units SQ BID@0700,2200 [facility] Last Admin: 10/28/16 06:04 Dose: Not Given Levothyroxine Sodium (Synthroid -) 75 mcg PO DAILY@0700 [facility] Last Admin: 10/28/16 06:04 Dose: 75 mcg Loratadine (Claritin -) 10 mg PO DAILY [facility] Last Admin: 10/28/16 10:44 Dose: 10 mg Jizoa-2-Yahw Ethyl Esters (Lovaza -) 1 gm PO TID [facility] Last Admin: 10/28/16 14:51 Dose: 1 gm Potassium Chloride (K-Dur -) 10 meq PO DAILY [facility] Last Admin: 10/28/16 10:45 Dose: 10 meq Ranitidine HCl (Zantac -) 150 mg PO BID [facility] Last Admin: 10/28/16 10:45 Dose: 150 mg - Objective Vital Signs: Vital Signs Temperature 97.7 F 10/28/16 14:19 Pulse Rate 89 10/28/16 14:19 Respiratory Rate 20 10/28/16 14:19 Blood Pressure 106/60 10/28/16 14:19 O2 Sat by Pulse Oximetry (%) 95 10/28/16 09:00 Constitutional: Yes: Calm, Obese Eyes: Yes: WNL HENT: Yes: WNL Neck: Yes: WNL Cardiovascular: Yes: Pulse Irregular, S1, S2 Respiratory: Yes: Diminished Gastrointestinal: Yes: Normal Bowel Sounds, Soft Extremities: Yes: WNL Edema: Yes Labs: CBC, BMP 10/28/16 06:00 10/27/16 06:05 INR, PTT INR 3.50 (0.82-1.09) H 10/28/16 06:00 - ....Imaging Ultrasound: Report Reviewed Problem List - Problems (1) A-fib Code(s): I48.91 - UNSPECIFIED ATRIAL FIBRILLATION (2) Abscess Code(s): L02.91 - CUTANEOUS ABSCESS, UNSPECIFIED (3) Cancer of ovary Code(s): C56.9 - MALIGNANT NEOPLASM OF UNSPECIFIED OVARY (4) Primary cancer of ovary with widespread metastatic disease Code(s): C56.9 - MALIGNANT NEOPLASM OF UNSPECIFIED OVARY C80.0 - DISSEMINATED MALIGNANT NEOPLASM, UNSPECIFIED (5) Hypothyroid Code(s): E03.9 - HYPOTHYROIDISM, UNSPECIFIED (6) Lymphedema Code(s): I89.0 - LYMPHEDEMA, NOT ELSEWHERE CLASSIFIED (7) Diabetes Code(s): E11.9 - TYPE 2 DIABETES MELLITUS WITHOUT COMPLICATIONS (9) HTN (hypertension) Code(s): I10 - ESSENTIAL (PRIMARY) HYPERTENSION (10) Morbidly obese Code(s): E66.01 - MORBID (SEVERE) OBESITY DUE TO EXCESS CALORIES (11) Pleural effusion Code(s): J90 - PLEURAL EFFUSION, NOT ELSEWHERE CLASSIFIED Assessment/Plan A/P Metastatic Ovarian Cancer Malignant Pleural Effusion s/p pleur-x placement/removal Shoulder Abscess s/p I&D LV Systolic Dysfunction COPD HTN DM Hyperlipidemia Atrial Fibrillation Morbid Obesity - continue antibiotics - O2 as needed - inhaled bronchodilators - rate controlled - anticoagulation to maintain INR 2-3 - DVT prophylaxis DR KATE
--- NOTE | 2016-10-28 18:31 | PN ---
Progress Note (short form) - Note Progress Note: Patient seen and examined c/o Lt. chest wall swelling also cough c/o dizziness, worn out Last Vital Signs Temp Pulse Resp BP Pulse Ox 97.7 F 89 20 106/60 95 10/28/16 14:19 10/28/16 14:19 10/28/16 14:19 10/28/16 14:19 10/28/16 09:00 Cor: RSR, No murmurs, No gallops Lungs: Clear to P&A Abd: Soft, Normal bowel sounds, No organomegaly Ext:sta Skin: No rashes, Integument intact Abnormal Lab Results 10/27/16 10/28/16 10/28/16 20:20 05:00 06:00 RBC Hgb Hct MCV MCH RDW Plt Count INR 3.50 H Vancomycin Pre-Dose 16.939 H* Crossmatch See Detail 10/28/16 06:00 RBC 3.44 L Hgb 8.8 L Hct 26.9 L MCV 78.4 L MCH 25.6 L RDW 19.2 H Plt Count 132 L INR Vancomycin Pre-Dose Crossmatch Active Medications Generic Name Dose Route Start Last Admin Trade Name Freq PRN Reason Stop Dose Admin Acetaminophen 650 mg 10/24/16 16:43 10/28/16 00:04 Tylenol - PO 650 mg Q4H PRN Administration FEVER OR PAIN Aclidinium [place] 1 puff 10/24/16 22:00 10/28/16 10:45 Tudorza - IH 1 puff BID VIRGILIO Administration Albuterol Sulfate 1 amp 10/24/16 16:43 10/27/16 05:55 Ventolin 0.083% Nebulizer Soln - NEB 1 amp Q4H PRN Administration SHORT OF BREATH/WHEEZING Amoxicillin/Clavulanate Potassium 1 tab 10/28/16 17:30 Augmentin - 875mg Tablet PO BID@0800,1730 VIRGILIO Atorvastatin Calcium 40 mg 10/24/16 22:00 10/27/16 21:41 Lipitor - PO 40 mg HS VIRGILIO Administration Diltiazem HCl 300 mg 10/26/16 11:00 10/28/16 10:45 Cardizem Cd - PO 300 mg DAILY VIRGILIO Administration IV Flush 5 ml 10/28/16 13:50 Neeta-Cath Flush IVPUSH PRN PRN FLUSH Insulin Aspart 0 vial 10/24/16 22:00 10/28/16 17:02 Novolog Vial Sliding Scale - SQ Not Given ACHS [facility] Protocol Insulin Detemir 35 units 10/24/16 22:00 10/28/16 06:04 Levemir Vial SQ Not Given BID@0700,2200 VIRGILIO Levothyroxine Sodium 75 mcg 10/25/16 07:00 10/28/16 06:04 Synthroid - PO 75 mcg DAILY@0700 VIRGILIO Administration Loratadine 10 mg 10/25/16 10:00 10/28/16 10:44 Claritin - PO 10 mg DAILY VIGRILIO Administration Swzja-5-Oler Ethyl Esters 1 gm 10/24/16 22:00 10/28/16 14:51 Lovaza - PO 1 gm TID VIRGILIO Administration Potassium Chloride 10 meq 10/25/16 10:00 10/28/16 10:45 K-Dur - PO 10 meq DAILY VIRGILIO Administration Ranitidine HCl 150 mg 10/24/16 22:00 10/28/16 10:45 Zantac - PO 150 mg BID VIRGILIO Administration A?P 61 y/o patient with morbid obesity, metastatic ovarian cancer, on weekly carbo/ taxol, now with rt. shoulder abscess, low grade fevers On vanco s/p I and D switching to augmentin u/s lt. chest--loculated effusion ? CT chest will discuss with CT surgery anemia--chemo induced. s/p 1 unit PRBCs Problem List - Problems (1) Carbuncle and furuncle of neck Code(s): L02.12 - FURUNCLE OF NECK L02.13 - CARBUNCLE OF NECK (2) Cancer Code(s): C80.1 - MALIGNANT (PRIMARY) NEOPLASM, UNSPECIFIED (3) Acute dyspnea Code(s): R06.00 - DYSPNEA, UNSPECIFIED (4) A-fib Code(s): I48.91 - UNSPECIFIED ATRIAL FIBRILLATION (5) Pleural effusion Code(s): J90 - PLEURAL EFFUSION, NOT ELSEWHERE CLASSIFIED
[2016-10-28] MEDS: AMOX TR/POT CLAV 875MG/125MG TABLETS (FP) PO SCH (18:54)
[2016-10-28] MEDS: ATORVASTATIN CA 40 MG TABLET (FP) PO SCH (23:05)
[2016-10-29] MEDS ORDERED: CEPHALEXIN MONOHYDRATE 500 MG CAPSULE (UD) PO SCH (06:00)
[2016-10-29] MEDS: OMEGA-3 ACID ETHYL ESTERS (FATTY-ACIDS) 1 GM CAPSULE (FP) PO SCH ×3 (06:24→22:14)
[2016-10-29] MEDS: INSULIN SLIDING SCALE (NOVOLOG) 1 VIAL SQ SCH ×4 (06:25→22:15)
[2016-10-29] MEDS: LEVOTHYROXINE NA 75 MCG TABLET (FP) PO SCH (06:27)
[2016-10-29] MEDS: INSULIN DETEMIR 100 UNITS/ML MDV SQ SCH ×2 (06:29→22:15)
[2016-10-29] MEDS: ALBUTEROL SO4 0.083% IH SOL 2.5 MG/3 ML VIAL.NEB. NEB PRN (06:30)
[2016-10-29 08:46] LABS: INR 2.87 (0.82-1.09); PROTHROMBIN TIME (PATIENT) 32.3 SEC (9.98-11.88)
[2016-10-29] MEDS: AMOX TR/POT CLAV 875MG/125MG TABLETS (FP) PO SCH ×2 (10:35→17:44)
[2016-10-29] MEDS: POTASSIUM CHLORIDE TABS 10 MEQ TABLET.ER (FP) PO SCH (10:35)
[2016-10-29] MEDS: LORATADINE 10 MG TABLET PO SCH (10:35)
[2016-10-29] MEDS: RANITIDINE HCL 150 MG TABLET (FP) PO SCH ×2 (10:35→22:14)
[2016-10-29] MEDS: ACLIDINIUM BROMIDE 400 MCG/INH AERO.POWD IH SCH ×2 (10:38→22:15)
[2016-10-29] MEDS: VANCOMYCIN 1,500 MG in DEXTROSE 5%-WATER - 500 ML IVPB SCH (10:39)
--- NOTE | 2016-10-29 11:55 | PN ---
Progress Note, Physician Chief Complaint: no distress sitting up in chair - Current Medication List Current Medications: Active Medications Acetaminophen (Tylenol -) 650 mg PO Q4H PRN PRN Reason: FEVER OR PAIN Last Admin: 10/28/16 00:04 Dose: 650 mg Aclidinium [place] (Tudorza -) 1 puff IH BID [facility] Last Admin: 10/29/16 10:38 Dose: 1 puff Albuterol Sulfate (Ventolin 0.083% Nebulizer Soln -) 1 amp NEB Q4H PRN PRN Reason: SHORT OF BREATH/WHEEZING Last Admin: 10/29/16 06:30 Dose: 1 amp Amoxicillin/Clavulanate Potassium (Augmentin - 875mg Tablet) 1 tab PO BID@0800, 1730 [facility] Last Admin: 10/29/16 10:35 Dose: 1 tab Atorvastatin Calcium (Lipitor -) 40 mg PO HS [facility] Last Admin: 10/28/16 23:05 Dose: 40 mg Diltiazem HCl (Cardizem Cd -) 300 mg PO DAILY [facility] Last Admin: 10/29/16 10:35 Dose: 300 mg IV Flush (Neeta-Cath Flush) 5 ml IVPUSH PRN PRN PRN Reason: FLUSH Insulin Aspart (Novolog Vial Sliding Scale -) 0 vial SQ ACHS [facility] PRN Reason: Protocol Last Admin: 10/29/16 11:12 Dose: 4 units Insulin Detemir (Levemir Vial) 35 units SQ BID@0700,2200 [facility] Last Admin: 10/29/16 06:29 Dose: Not Given Levothyroxine Sodium (Synthroid -) 75 mcg PO DAILY@0700 [facility] Last Admin: 10/29/16 06:27 Dose: 75 mcg Loratadine (Claritin -) 10 mg PO DAILY [facility] Last Admin: 10/29/16 10:35 Dose: 10 mg Dpqmc-4-Lqmb Ethyl Esters (Lovaza -) 1 gm PO TID [facility] Last Admin: 10/29/16 06:24 Dose: 1 gm Potassium Chloride (K-Dur -) 10 meq PO DAILY [facility] Last Admin: 10/29/16 10:35 Dose: 10 meq Ranitidine HCl (Zantac -) 150 mg PO BID [facility] Last Admin: 10/29/16 10:35 Dose: 150 mg - Objective Vital Signs: Vital Signs Temperature 98.3 F 10/29/16 08:34 Pulse Rate 82 10/29/16 11:20 Respiratory Rate 18 10/29/16 08:34 Blood Pressure 120/56 10/29/16 08:34 O2 Sat by Pulse Oximetry (%) 96 10/29/16 11:20 Constitutional: Yes: No Distress Cardiovascular: Yes: Pulse Irregular Respiratory: Yes: Diminished Gastrointestinal: Yes: Normal Bowel Sounds, Soft. No: Tenderness Edema: Yes Edema: LLE: 2+, RLE: 2+ Integumentary: Yes: Other (healed wound in rt upper back) Labs: CBC, BMP 10/28/16 06:00 10/27/16 06:05 INR, PTT INR 2.87 (0.82-1.09) H 10/29/16 06:00 Problem List - Problems (1) A-fib Code(s): I48.91 - UNSPECIFIED ATRIAL FIBRILLATION (2) Abscess Code(s): L02.91 - CUTANEOUS ABSCESS, UNSPECIFIED (3) Abscess of upper back excluding scapular region Code(s): L02.212 - CUTANEOUS ABSCESS OF BACK [ANY PART, EXCEPT BUTTOCK] (4) Cancer of ovary Code(s): C56.9 - MALIGNANT NEOPLASM OF UNSPECIFIED OVARY (5) Carbuncle and furuncle of neck Code(s): L02.12 - FURUNCLE OF NECK L02.13 - CARBUNCLE OF NECK Assessment/Plan PLAN On PO antibiotics CT surgeon eval for pleural effusion repeat CT chest ordered contine with meds DM control PT eval Coumadin per INR
--- NOTE | 2016-10-29 16:21 | PN ---
Progress Note (short form) - Note Progress Note: Breathing feels OK today. NAD on RA. Some dry cough. Intake & Output 10/26/16 10/27/16 10/28/16 10/29/16 23:59 23:59 23:59 23:59 Intake Total 2890 1150 2110 Output Total 2 Balance 2890 1150 2108 Weight 350 lb 12.8 oz 349 lb 9 oz 348 lb 11.2 oz 349 lb 9.6 oz Last Vital Signs Temp Pulse Resp BP Pulse Ox 98.4 F 91 H 18 141/84 96 10/29/16 15:12 10/29/16 15:12 10/29/16 15:12 10/29/16 15:12 10/29/16 11:20 Active Medications Acetaminophen (Tylenol -) 650 mg PO Q4H PRN PRN Reason: FEVER OR PAIN Last Admin: 10/28/16 00:04 Dose: 650 mg Aclidinium [place] (Tudorza -) 1 puff IH BID [facility] Last Admin: 10/29/16 10:38 Dose: 1 puff Albuterol Sulfate (Ventolin 0.083% Nebulizer Soln -) 1 amp NEB Q4H PRN PRN Reason: SHORT OF BREATH/WHEEZING Last Admin: 10/29/16 06:30 Dose: 1 amp Amoxicillin/Clavulanate Potassium (Augmentin - 875mg Tablet) 1 tab PO BID@0800, 1730 [facility] Last Admin: 10/29/16 10:35 Dose: 1 tab Atorvastatin Calcium (Lipitor -) 40 mg PO HS [facility] Last Admin: 10/28/16 23:05 Dose: 40 mg Diltiazem HCl (Cardizem Cd -) 300 mg PO DAILY [facility] Last Admin: 10/29/16 10:35 Dose: 300 mg IV Flush (Neeta-Cath Flush) 5 ml IVPUSH PRN PRN PRN Reason: FLUSH Insulin Aspart (Novolog Vial Sliding Scale -) 0 vial SQ ACHS [facility] PRN Reason: Protocol Last Admin: 10/29/16 11:12 Dose: 4 units Insulin Detemir (Levemir Vial) 35 units SQ BID@0700,2200 [facility] Last Admin: 10/29/16 06:29 Dose: Not Given Levothyroxine Sodium (Synthroid -) 75 mcg PO DAILY@0700 [facility] Last Admin: 10/29/16 06:27 Dose: 75 mcg Loratadine (Claritin -) 10 mg PO DAILY [facility] Last Admin: 10/29/16 10:35 Dose: 10 mg Qciuf-0-Odod Ethyl Esters (Lovaza -) 1 gm PO TID [facility] Last Admin: 10/29/16 15:07 Dose: 1 gm Potassium Chloride (K-Dur -) 10 meq PO DAILY [facility] Last Admin: 10/29/16 10:35 Dose: 10 meq Ranitidine HCl (Zantac -) 150 mg PO BID [facility] Last Admin: 10/29/16 10:35 Dose: 150 mg Constitutional: Yes: NAD, Obese Eyes: Yes: WNL HENT: Yes: WNL Neck: Yes: WNL Cardiovascular: Yes: Pulse Irregular, S1, S2 Respiratory: Yes: Diminished at the bases Gastrointestinal: Yes: Normal Bowel Sounds, Soft Extremities: Yes: WNL Edema: Yes Labs: Laboratory Results - last 24 hr 10/28/16 10/28/16 10/29/16 16:57 22:51 06:00 INR 2.87 H POC Glucometer 150 141 10/29/16 10/29/16 06:23 11:03 INR POC Glucometer 187 223 Problem List - Problems (1) A-fib Code(s): I48.91 - UNSPECIFIED ATRIAL FIBRILLATION (2) Abscess Code(s): L02.91 - CUTANEOUS ABSCESS, UNSPECIFIED (3) Cancer of ovary Code(s): C56.9 - MALIGNANT NEOPLASM OF UNSPECIFIED OVARY (4) Primary cancer of ovary with widespread metastatic disease Code(s): C56.9 - MALIGNANT NEOPLASM OF UNSPECIFIED OVARY C80.0 - DISSEMINATED MALIGNANT NEOPLASM, UNSPECIFIED (5) Hypothyroid Code(s): E03.9 - HYPOTHYROIDISM, UNSPECIFIED (6) Lymphedema Code(s): I89.0 - LYMPHEDEMA, NOT ELSEWHERE CLASSIFIED (7) Diabetes Code(s): E11.9 - TYPE 2 DIABETES MELLITUS WITHOUT COMPLICATIONS (9) HTN (hypertension) Code(s): I10 - ESSENTIAL (PRIMARY) HYPERTENSION (10) Morbidly obese Code(s): E66.01 - MORBID (SEVERE) OBESITY DUE TO EXCESS CALORIES (11) Pleural effusion Code(s): J90 - PLEURAL EFFUSION, NOT ELSEWHERE CLASSIFIED Assessment/Plan A/P Metastatic Ovarian Cancer Malignant Pleural Effusion s/p pleur-x placement/removal Shoulder Abscess s/p I&D LV Systolic Dysfunction COPD HTN DM Hyperlipidemia Atrial Fibrillation Morbid Obesity - ABX - O2 as needed - inhaled bronchodilators - anticoagulation to maintain INR 2-3 - Outpatient CXR PRN - DVT prophylaxis DR KATE
--- NOTE | 2016-10-29 17:10 | PN ---
Progress Note (short form) - Note Progress Note: Patient seen and examined Lying in bed Complains of cough- clear thick sputum. No significant chest pains , No SOB. No GI symptoms of nausea, emesis, diarrhea, constipation. No back or bone pains Last Vital Signs Temp Pulse Resp BP Pulse Ox 98.4 F 91 H 18 141/84 96 10/29/16 15:12 10/29/16 15:12 10/29/16 15:12 10/29/16 15:12 10/29/16 11:20 HEENT: FRANSICO, EOM Intact Oropharynx: No thrush, No mucositis Cor:iregular Lungs: diminished breath sounds bilaterally Abd: Soft, Normal bowel sounds, No organomegaly, obese Ext:LE edema edema Skin: No rashes, Integument intact CBC, BMP 10/28/16 06:00 10/27/16 06:05 INR, PTT INR 2.87 (0.82-1.09) H 10/29/16 06:00 Current Medications Generic Name Dose Route Start Last Admin Trade Name Freq PRN Reason Stop Dose Admin Acetaminophen 650 mg 10/24/16 16:43 10/28/16 00:04 Tylenol - PO 650 mg Q4H PRN Administration FEVER OR PAIN Aclidinium [place] 1 puff 10/24/16 22:00 10/29/16 10:38 Tudorza - IH 1 puff BID VIRGILIO Administration Amoxicillin/Clavulanate Potassium 1 tab 10/28/16 17:30 10/29/16 10:35 Augmentin - 875mg Tablet PO 1 tab BID@0800,1730 VIRGILIO Administration Atorvastatin Calcium 40 mg 10/24/16 22:00 10/28/16 23:05 Lipitor - PO 40 mg HS VIRGILIO Administration Diltiazem HCl 300 mg 10/26/16 11:00 10/29/16 10:35 Cardizem Cd - PO 300 mg DAILY VIRGILIO Administration IV Flush 5 ml 10/28/16 13:50 Neeta-Cath Flush IVPUSH PRN PRN FLUSH Insulin Aspart 0 vial 10/24/16 22:00 10/29/16 11:12 Novolog Vial Sliding Scale - SQ 4 units ACHS VIRGILIO Administration Protocol Insulin Detemir 35 units 10/24/16 22:00 10/29/16 06:29 Levemir Vial SQ Not Given BID@0700,2200 VIRGILIO Levothyroxine Sodium 75 mcg 10/25/16 07:00 10/29/16 06:27 Synthroid - PO 75 mcg DAILY@0700 VIRGILIO Administration Loratadine 10 mg 10/25/16 10:00 10/29/16 10:35 Claritin - PO 10 mg DAILY VIRGILIO Administration Ezrmu-7-Ussv Ethyl Esters 1 gm 10/24/16 22:00 10/29/16 15:07 Lovaza - PO 1 gm TID VIRGILIO Administration Potassium Chloride 10 meq 10/25/16 10:00 10/29/16 10:35 K-Dur - PO 10 meq DAILY VIRGILIO Administration Ranitidine HCl 150 mg 10/24/16 22:00 10/29/16 10:35 Zantac - PO 150 mg BID VIRGILIO Administration Impression Ovarian ca S/P pleurex S/P chemotherapy with carboplatinum /taxol therapy Anemia secondary to chronic disease/chemotherapy Fever? source Diabetes Mellitus Plan: Antibiotics per I.D. F/U CT scan Resume chemotherapy when feasible Monitor CBC :
--- NOTE | 2016-10-29 17:49 | CONSULT ---
Consult - text type - Consultation Consultation Note: Thoracic Surgery Consultation: Pt admitted with infection, likely related to infected epidermal inclusion cyst/ abscess but also had cellulitis of one pleur-x port that had responded well to Keflex last week prior to removal of pleur-x. Since drainage she is now feeling better. No fevers. Not on oxygen at this moment. VATS port without any evidence of cellulitis. There is a small amount of eschar/fibrinous exudate where the pleur-x was. CT scan reviewed: Loculated, smaller pleural effusion c/w expected results of pleur-x for malignant effusion. Appears that there is good pleural apposition throughout much of her chest. Impression/Plan: Infected epidermal inclusion cyst, does not appear to have any signs of empyema. Finish abx course per ID. F/U as outpatient in 2-3 weeks with CXR. I have spent ~40 minutes on this consultation including history, physical exam, and discussion with Dr. Starkey, and with >50% involved in counseling and coordination of care with patient and physicians.
[2016-10-29] MEDS ORDERED: INSULIN (NOVOLOG) ASPART 100 UNITS/ML 10ML VIAL ONE (21:01)
[2016-10-29] MEDS ORDERED: PT OWN MED DRAWER 7, Y5N ONE (21:02)
[2016-10-29] MEDS: ATORVASTATIN CA 40 MG TABLET (FP) PO SCH (22:14)
[2016-10-30] MEDS: INSULIN SLIDING SCALE (NOVOLOG) 1 VIAL SQ SCH ×4 (06:30→21:58)
[2016-10-30] MEDS: INSULIN DETEMIR 100 UNITS/ML MDV SQ SCH ×2 (06:31→21:59)
[2016-10-30] MEDS: OMEGA-3 ACID ETHYL ESTERS (FATTY-ACIDS) 1 GM CAPSULE (FP) PO SCH ×3 (06:32→22:00)
[2016-10-30] MEDS: LEVOTHYROXINE NA 75 MCG TABLET (FP) PO SCH (06:32)
[2016-10-30] MEDS: AMOX TR/POT CLAV 875MG/125MG TABLETS (FP) PO SCH ×2 (08:28→17:20)
[2016-10-30] MEDS ORDERED: PT OWN MED DRAWER 7, Y5N ONE ×3 (09:38→17:19)
[2016-10-30] MEDS: ACLIDINIUM BROMIDE 400 MCG/INH AERO.POWD IH SCH ×2 (09:40→22:00)
[2016-10-30] MEDS: LORATADINE 10 MG TABLET PO SCH (09:41)
[2016-10-30] MEDS: RANITIDINE HCL 150 MG TABLET (FP) PO SCH (09:41)
[2016-10-30] MEDS: POTASSIUM CHLORIDE TABS 10 MEQ TABLET.ER (FP) PO SCH (09:41)
[2016-10-30 11:07] LABS: MCH 25.5 pg (25.7-33.7); MCHC 32.3 g/dl (32.0-36.0); PLATELET COUNT 172 K/MM3 (134-434); RDW 19.9 % (11.6-15.6); WHITE BLOOD COUNT 6.7 K/mm3 (4.0-10.0)
[2016-10-30 11:34] LABS: ALBUMIN 2.3 g/dl (3.4-5.0); ANION GAP 11 (8-16); CALCIUM 9.1 mg/dL (8.5-10.1); CO2 25 mmol/L (21-32); GLUCOSE,RANDOM 183 mg/dL (74-106)
--- NOTE | 2016-10-30 11:38 | PN ---
Progress Note, Physician Chief Complaint: no distress sitting up in chair - Current Medication List Current Medications: Active Medications Acetaminophen (Tylenol -) 650 mg PO Q4H PRN PRN Reason: FEVER OR PAIN Last Admin: 10/28/16 00:04 Dose: 650 mg Aclidinium [place] (Tudorza -) 1 puff IH BID [facility] Last Admin: 10/30/16 09:40 Dose: 1 puff Amoxicillin/Clavulanate Potassium (Augmentin - 875mg Tablet) 1 tab PO BID@0800, 1730 [facility] Last Admin: 10/30/16 08:28 Dose: 1 tab Atorvastatin Calcium (Lipitor -) 40 mg PO HS [facility] Last Admin: 10/29/16 22:14 Dose: 40 mg Diltiazem HCl (Cardizem Cd -) 300 mg PO DAILY [facility] Last Admin: 10/30/16 09:41 Dose: 300 mg IV Flush (Neeta-Cath Flush) 5 ml IVPUSH PRN PRN PRN Reason: FLUSH Insulin Aspart (Novolog Vial Sliding Scale -) 0 vial SQ ACHS [facility] PRN Reason: Protocol Last Admin: 10/30/16 06:30 Dose: Not Given Insulin Detemir (Levemir Vial) 35 units SQ BID@0700,2200 [facility] Last Admin: 10/30/16 06:31 Dose: 35 units Levothyroxine Sodium (Synthroid -) 75 mcg PO DAILY@0700 [facility] Last Admin: 10/30/16 06:32 Dose: 75 mcg Loratadine (Claritin -) 10 mg PO DAILY [facility] Last Admin: 10/30/16 09:41 Dose: 10 mg Ixhqs-5-Ftdc Ethyl Esters (Lovaza -) 1 gm PO TID [facility] Last Admin: 10/30/16 06:32 Dose: 1 gm Potassium Chloride (K-Dur -) 10 meq PO DAILY [facility] Last Admin: 10/30/16 09:41 Dose: 10 meq Ranitidine HCl (Zantac -) 150 mg PO BID [facility] Last Admin: 10/30/16 09:41 Dose: 150 mg - Objective Vital Signs: Vital Signs Temperature 98.3 F 10/30/16 10:00 Pulse Rate 87 10/30/16 10:00 Respiratory Rate 18 10/30/16 10:00 Blood Pressure 110/56 10/30/16 10:00 O2 Sat by Pulse Oximetry (%) 96 10/29/16 21:00 Constitutional: Yes: No Distress Cardiovascular: Yes: Pulse Irregular Respiratory: Yes: Diminished Gastrointestinal: Yes: Normal Bowel Sounds, Soft. No: Distention, Tenderness Edema: Yes Labs: CBC, BMP 10/30/16 09:41 INR, PTT INR 2.87 (0.82-1.09) H 10/29/16 06:00 Problem List - Problems (1) A-fib Code(s): I48.91 - UNSPECIFIED ATRIAL FIBRILLATION (2) Abscess of upper back excluding scapular region Code(s): L02.212 - CUTANEOUS ABSCESS OF BACK [ANY PART, EXCEPT BUTTOCK] (3) Carbuncle and furuncle of neck Code(s): L02.12 - FURUNCLE OF NECK L02.13 - CARBUNCLE OF NECK (4) Congestive heart failure Code(s): I50.9 - HEART FAILURE, UNSPECIFIED Assessment/Plan PLAN On PO antibiotics CT surgeon eval appreciated-- no further interventions repeat CT chest -- decreased effusion, decreased size of nodules contine with meds spoke with oncology -- dc planning- will receive chemo today and dc home afterwards DM control PT eval Coumadin per INR
[2016-10-30 11:39] LABS: ALK PHOS 130 U/L (45-117); BILIRUBIN,TOTAL 0.9 mg/dL (0.2-1.0); CREATININE 0.7 mg/dL (0.55-1.02); SGOT/AST 14 U/L (15-37); SGPT/ALT 18 U/L (12-78); TOT PROT 6.3 g/dl (6.4-8.2)
[2016-10-30 11:56] LABS: INR 2.26 (0.82-1.09); PROTHROMBIN TIME (PATIENT) 25.3 SEC (9.98-11.88)
--- NOTE | 2016-10-30 12:06 | PN ---
Progress Note, Physician Chief Complaint: Patient seen today, feels better still has poor appetite 3rd day on Augmentin, 4th dose Chest CT shows interval improvement in nodules and pleural effusion with some loculation more on the left drained R shoulder abscess site -dressing removed, dry, healing about 4cm incision site wound L wound from extubated chest tube also dry, open and healing - Current Medication List Current Medications: Active Medications Acetaminophen (Tylenol -) 650 mg PO Q4H PRN PRN Reason: FEVER OR PAIN Last Admin: 10/28/16 00:04 Dose: 650 mg Aclidinium [place] (Tudorza -) 1 puff IH BID [facility] Last Admin: 10/30/16 09:40 Dose: 1 puff Amoxicillin/Clavulanate Potassium (Augmentin - 875mg Tablet) 1 tab PO BID@0800, 1730 [facility] Last Admin: 10/30/16 08:28 Dose: 1 tab Atorvastatin Calcium (Lipitor -) 40 mg PO HS [facility] Last Admin: 10/29/16 22:14 Dose: 40 mg Diltiazem HCl (Cardizem Cd -) 300 mg PO DAILY [facility] Last Admin: 10/30/16 09:41 Dose: 300 mg IV Flush (Neeta-Cath Flush) 5 ml IVPUSH PRN PRN PRN Reason: FLUSH Insulin Aspart (Novolog Vial Sliding Scale -) 0 vial SQ ACHS [facility] PRN Reason: Protocol Last Admin: 10/30/16 11:42 Dose: 2 units Insulin Detemir (Levemir Vial) 35 units SQ BID@0700,2200 [facility] Last Admin: 10/30/16 06:31 Dose: 35 units Levothyroxine Sodium (Synthroid -) 75 mcg PO DAILY@0700 [facility] Last Admin: 10/30/16 06:32 Dose: 75 mcg Loratadine (Claritin -) 10 mg PO DAILY [facility] Last Admin: 10/30/16 09:41 Dose: 10 mg Qcgdv-2-Qezd Ethyl Esters (Lovaza -) 1 gm PO TID [facility] Last Admin: 10/30/16 06:32 Dose: 1 gm Potassium Chloride (K-Dur -) 10 meq PO DAILY [facility] Last Admin: 10/30/16 09:41 Dose: 10 meq Ranitidine HCl (Zantac -) 150 mg PO BID [facility] Last Admin: 10/30/16 09:41 Dose: 150 mg - Objective Vital Signs: Vital Signs Temperature 98.3 F 10/30/16 10:00 Pulse Rate 87 10/30/16 10:00 Respiratory Rate 18 10/30/16 10:00 Blood Pressure 110/56 10/30/16 10:00 O2 Sat by Pulse Oximetry (%) 96 10/29/16 21:00 Constitutional: Yes: Obese Eyes: Yes: Conjunctiva Clear HENT: Yes: Atraumatic. No: Drooling, Epistaxis Neck: Yes: Supple. No: Rigid, Tenderness Cardiovascular: Yes: S1, S2 Respiratory: Yes: Diminished (slightly diminished breath sounds on L lung base) . No: On Nasal O2, On Venti-Mask, SOB Gastrointestinal: Yes: Abdomen, Obese ...Rectal Exam: Yes: Deferred Genitourinary: No: [place] Present Edema: LLE: 2+, RLE: 2+ Psychiatric: Yes: Oriented Labs: CBC, BMP 10/30/16 09:41 10/30/16 09:41 INR, PTT INR 2.26 (0.82-1.09) H 10/30/16 09:41 Problem List - Problems (1) Abscess Assessment/Plan: resolved drained abscess, dry, clean and healing site Code(s): L02.91 - CUTANEOUS ABSCESS, UNSPECIFIED (2) Primary cancer of ovary with widespread metastatic disease Code(s): C56.9 - MALIGNANT NEOPLASM OF UNSPECIFIED OVARY C80.0 - DISSEMINATED MALIGNANT NEOPLASM, UNSPECIFIED Impression/Plan Impression/Plan: Continue augmentin Visit type - Emergency Visit Emergency Visit: No - New Patient This patient is new to me today: No - Critical Care Critical Care patient: No - Discharge Referral Referred to [facility] No
[2016-10-30] MEDS ORDERED: SODIUM CHLORIDE 250 ML IV ONE (15:00)
[2016-10-30] MEDS ORDERED: SODIUM CHLORIDE 1,000 ML IV SCH (15:15)
--- NOTE | 2016-10-30 15:21 | PN ---
Progress Note (short form) - Note Progress Note: Patient seen and examined c/o Lt. chest wall swelling also cough c/o dizziness, worn out Last Vital Signs Temp Pulse Resp BP Pulse Ox 97.6 F 88 18 143/82 97 10/30/16 15:00 10/30/16 15:00 10/30/16 15:00 10/30/16 15:00 10/30/16 09:00 Cor: RSR, No murmurs, No gallops Lungs: Clear to P&A Abd: Soft, Normal bowel sounds, No organomegaly Ext:chronic stasis dermatitis Skin: No rashes, Integument intact Abnormal Lab Results 10/30/16 10/30/16 10/30/16 09:41 09:41 09:41 Hgb 10.3 L D Hct 31.8 L D MCV 79.0 L MCH 25.5 L RDW 19.9 H INR 2.26 H Random Glucose 183 H D AST 14 L Alkaline Phosphatase 130 H Total Protein 6.3 L Albumin 2.3 L Home Medication List Medication Instructions Recorded Confirmed Type Levothyroxine [Synthroid -] 75 mcg PO DAILY 10/17/12 10/24/16 History Loratadine [Claritin -] 10 mg PO DAILY 10/17/12 10/24/16 History Metformin HCl [Glucophage] 500 mg PO BID 10/17/12 10/24/16 History [place]-3 Acid Ethyl Esters [Lovaza 1,000 mg PO TID 10/17/12 10/24/16 History -] Simvastatin [Zocor -] 40 mg PO HS 10/17/12 10/24/16 History Insulin Aspart [Novolog Flexpen] 35 unit SQ BID 10/14/16 10/24/16 History Warfarin Na [Coumadin -] 3 mg PO HS 10/14/16 10/25/16 History Gabapentin [Neurontin] 300 mg PO TID 10/24/16 10/24/16 History Potassium Chloride 10 meq PO DAILY 10/24/16 10/24/16 History Umeclidinium [place] [Incruse 1 puff IH DAILY 10/24/16 10/24/16 History Ellipta] Bumetanide [Bumex -] 1 mg PO BID 10/25/16 10/25/16 History Diltiazem Cd [Cardizem Cd -] 300 mg PO DAILY 10/25/16 10/25/16 History Active Medications Generic Name Dose Route Start Last Admin Trade Name Tete PRN Reason Stop Dose Admin Acetaminophen 650 mg 10/24/16 16:43 10/28/16 00:04 Tylenol - PO 650 mg Q4H PRN Administration FEVER OR PAIN Aclidinium [place] 1 puff 10/24/16 22:00 10/30/16 09:40 Tudorza - IH 1 puff BID VIRGILIO Administration Amoxicillin/Clavulanate Potassium 1 tab 10/28/16 17:30 10/30/16 08:28 Augmentin - 875mg Tablet PO 1 tab BID@0800,1730 VIRGILIO Administration Atorvastatin Calcium 40 mg 10/24/16 22:00 10/29/16 22:14 Lipitor - PO 40 mg HS VIRGILIO Administration Diltiazem HCl 300 mg 10/26/16 11:00 10/30/16 09:41 Cardizem Cd - PO 300 mg DAILY VIRGILIO Administration IV Flush 5 ml 10/28/16 13:50 Neeta-Cath Flush IVPUSH PRN PRN FLUSH Dexamethasone Sodium Phosphate 51 mls @ 204 mls/hr 10/30/16 16:00 10 mg/ Sodium Chloride IVPB 10/30/16 16:14 ONCE ONE Ondansetron HCl 12 mg/ 108.5 mls @ 217 mls/hr 10/30/16 16:00 Diphenhydramine HCl 25 mg/ IVPB 10/30/16 16:29 Ranitidine HCl 50 mg/ Sodium ONCE ONE Chloride Paclitaxel 128 mg/ Sodium 271.3333 mls @ 271.333 mls/hr 10/30/16 16:30 Chloride IVPB 10/30/16 17:29 ONCE ONE Carboplatin 250 mg/ Sodium 275 mls @ 550 mls/hr 10/30/16 17:30 Chloride IVPB 10/30/16 17:59 ONCE ONE Sodium Chloride 250 mls @ 250 mls/hr 10/30/16 15:00 10/30/16 14:50 Normal Saline - IV 10/30/16 15:59 250 mls/hr ONCE ONE Administration Sodium Chloride 1,000 mls @ 42 mls/hr 10/30/16 15:15 Normal Saline - IV ASDIR VIRGILIO Insulin Aspart 0 vial 10/24/16 22:00 10/30/16 11:42 Novolog Vial Sliding Scale - SQ 2 units ACHS VIRGILIO Administration Protocol Insulin Detemir 35 units 10/24/16 22:00 10/30/16 06:31 Levemir Vial SQ 35 units BID@0700,2200 VIRGILIO Administration Levothyroxine Sodium 75 mcg 10/25/16 07:00 10/30/16 06:32 Synthroid - PO 75 mcg DAILY@0700 VIRGILIO Administration Loratadine 10 mg 10/25/16 10:00 10/30/16 09:41 Claritin - PO 10 mg DAILY VIRGILIO Administration Efxcy-6-Osmc Ethyl Esters 1 gm 10/24/16 22:00 10/30/16 13:59 Lovaza - PO 1 gm TID VIRGILIO Administration Potassium Chloride 10 meq 10/25/16 10:00 10/30/16 09:41 K-Dur - PO 10 meq DAILY VIRGILIO Administration Ranitidine HCl 150 mg 10/24/16 22:00 10/30/16 09:41 Zantac - PO 150 mg BID VIRGILIO Administration A?P 61 y/o patient with morbid obesity, metastatic ovarian cancer, on weekly carbo/ taxol, now with rt. shoulder abscess, low grade fevers s/p vanco switched to augmentin u/s lt. chest--loculated effusion CT chest--loculated effusion and slight improvement in lung mets anemia--chemo induced. s/p 1 unit PRBCs Redose W5 weekly carbo/taxol neupogen as necessary Problem List - Problems (1) Carbuncle and furuncle of neck Code(s): L02.12 - FURUNCLE OF NECK L02.13 - CARBUNCLE OF NECK (2) Cancer Code(s): C80.1 - MALIGNANT (PRIMARY) NEOPLASM, UNSPECIFIED (3) Acute dyspnea Code(s): R06.00 - DYSPNEA, UNSPECIFIED (4) A-fib Code(s): I48.91 - UNSPECIFIED ATRIAL FIBRILLATION (5) Pleural effusion Code(s): J90 - PLEURAL EFFUSION, NOT ELSEWHERE CLASSIFIED
[2016-10-30] MEDS ORDERED: ONDANSETRON INJECTION 12 MG, DIPHENHYDRAMINE 25 MG, RANITIDINE INJECTION 50 MG in SODIU... IVPB ONE (16:00)
[2016-10-30] MEDS ORDERED: DEXAMETHASONE INJECTION 10 MG in SODIUM CHLORIDE 50 ML IVPB ONE (16:00)
[2016-10-30] MEDS ORDERED: SODIUM CHLORIDE IVPB ONE ×2 (16:30→17:30)
[2016-10-30] MEDS ORDERED: PACLITAXEL IVPB ONE (16:30)
[2016-10-30] MEDS ORDERED: CARBOPLATIN IVPB ONE (17:30)
[2016-10-30] MEDS ORDERED: INSULIN (NOVOLOG) ASPART 100 UNITS/ML 10ML VIAL ONE (20:30)
[2016-10-30] MEDS: ATORVASTATIN CA 40 MG TABLET (FP) PO SCH (22:00)
[2016-10-31] MEDS: INSULIN SLIDING SCALE (NOVOLOG) 1 VIAL SQ SCH ×2 (06:28→11:30)
[2016-10-31] MEDS: LEVOTHYROXINE NA 75 MCG TABLET (FP) PO SCH (06:28)
[2016-10-31] MEDS: OMEGA-3 ACID ETHYL ESTERS (FATTY-ACIDS) 1 GM CAPSULE (FP) PO SCH (06:28)
[2016-10-31] MEDS: INSULIN DETEMIR 100 UNITS/ML MDV SQ SCH (06:29)
[2016-10-31] MEDS: AMOX TR/POT CLAV 875MG/125MG TABLETS (FP) PO SCH (08:54)
[2016-10-31 08:59] VITALS: BP 128/51; PULSE 87; TEMP 97.9
--- NOTE | 2016-10-31 09:33 | PN ---
Progress Note (short form) - Note Progress Note: Patient seen and examined Feels better Last Vital Signs Temp Pulse Resp BP Pulse Ox 97.9 F 87 20 128/51 97 10/31/16 08:58 10/31/16 08:58 10/31/16 08:58 10/31/16 08:58 10/30/16 21:00 morbid obesity Cor: RSR, No murmurs, No gallops Lungs: Clear to P&A Abd: Soft, Normal bowel sounds, No organomegaly Ext:chronic stasis dermatitis Skin: No rashes, Integument intact Abnormal Lab Results 10/27/16 10/30/16 10/30/16 20:20 09:41 09:41 Hgb 10.3 L D Hct 31.8 L D MCV 79.0 L MCH 25.5 L RDW 19.9 H INR 2.26 H Random Glucose AST Alkaline Phosphatase Total Protein Albumin Crossmatch See Detail 10/30/16 09:41 Hgb Hct MCV MCH RDW INR Random Glucose 183 H D AST 14 L Alkaline Phosphatase 130 H Total Protein 6.3 L Albumin 2.3 L Crossmatch Active Medications Generic Name Dose Route Start Last Admin Trade Name Freq PRN Reason Stop Dose Admin Acetaminophen 650 mg 10/24/16 16:43 10/28/16 00:04 Tylenol - PO 650 mg Q4H PRN Administration FEVER OR PAIN Aclidinium [place] 1 puff 10/24/16 22:00 10/30/16 22:00 Tudorza - IH 1 puff BID VIRGILIO Administration Amoxicillin/Clavulanate Potassium 1 tab 10/28/16 17:30 10/31/16 08:54 Augmentin - 875mg Tablet PO 1 tab BID@0800,1730 VIRGILIO Administration Atorvastatin Calcium 40 mg 10/24/16 22:00 10/30/16 22:00 Lipitor - PO 40 mg HS VIRGILIO Administration Diltiazem HCl 300 mg 10/26/16 11:00 10/30/16 09:41 Cardizem Cd - PO 300 mg DAILY VIRGILIO Administration IV Flush 5 ml 10/28/16 13:50 Neeta-Cath Flush IVPUSH PRN PRN FLUSH Insulin Aspart 0 vial 10/24/16 22:00 10/31/16 06:28 Novolog Vial Sliding Scale - SQ 6 units ACHS VIRGILIO Administration Protocol Insulin Detemir 35 units 10/24/16 22:00 10/31/16 06:29 Levemir Vial SQ 35 units BID@0700,2200 VIRGILIO Administration Levothyroxine Sodium 75 mcg 10/25/16 07:00 10/31/16 06:28 Synthroid - PO 75 mcg DAILY@0700 VIRGILIO Administration Loratadine 10 mg 10/25/16 10:00 10/30/16 09:41 Claritin - PO 10 mg DAILY VIRGILIO Administration Pvwoc-9-Djue Ethyl Esters 1 gm 10/24/16 22:00 10/31/16 06:28 Lovaza - PO 1 gm TID VIRGILIO Administration Potassium Chloride 10 meq 10/25/16 10:00 10/30/16 09:41 K-Dur - PO 10 meq DAILY VIRGILIO Administration Warfarin Sodium 2 mg 10/31/16 18:00 Coumadin - PO DAILY@1800 VIRGILIO A?P 61 y/o patient with morbid obesity, metastatic ovarian cancer, on weekly carbo/ taxol, now with rt. shoulder abscess, low grade fevers s/p vanco switched to augmentin u/s lt. chest--loculated effusion CT chest--loculated effusion and slight improvement in lung mets anemia--chemo induced. s/p 1 unit PRBCs C5D2 carbo/taxol neupogen tomorrow and friday discussed with patient about and PMD--she was taking 5mg coumadin and was supratherapeutic on admission. Since then she started antibiotics -- will need close monitoring of INR. oncoumadin 3 mg daily. f/u 1 week Problem List - Problems (1) Carbuncle and furuncle of neck Code(s): L02.12 - FURUNCLE OF NECK L02.13 - CARBUNCLE OF NECK (2) Cancer Code(s): C80.1 - MALIGNANT (PRIMARY) NEOPLASM, UNSPECIFIED (3) Acute dyspnea Code(s): R06.00 - DYSPNEA, UNSPECIFIED (4) A-fib Code(s): I48.91 - UNSPECIFIED ATRIAL FIBRILLATION (5) Pleural effusion Code(s): J90 - PLEURAL EFFUSION, NOT ELSEWHERE CLASSIFIED
[2016-10-31] MEDS ORDERED: PT OWN MED DRAWER 7, Y5N ONE (10:18)
[2016-10-31] MEDS: POTASSIUM CHLORIDE TABS 10 MEQ TABLET.ER (FP) PO SCH (10:23)
[2016-10-31] MEDS: LORATADINE 10 MG TABLET PO SCH (10:24)
[2016-10-31] MEDS: ACLIDINIUM BROMIDE 400 MCG/INH AERO.POWD IH SCH (10:24)
--- NOTE | 2016-10-31 11:24 | DS ---
Physical Examination Vital Signs: Vital Signs Temperature 97.9 F 10/31/16 08:58 Pulse Rate 87 10/31/16 08:58 Respiratory Rate 20 10/31/16 08:58 Blood Pressure 128/51 10/31/16 08:58 O2 Sat by Pulse Oximetry (%) 97 10/30/16 21:00 Constitutional: Yes: No Distress, Calm Cardiovascular: Yes: Pulse Irregular Respiratory: Yes: Diminished Gastrointestinal: Yes: Normal Bowel Sounds, Soft. No: Distention, Tenderness Edema: Yes Labs: CBC, BMP 10/30/16 09:41 10/30/16 09:41 Discharge Summary Reason For Visit: MALIGNANT NEOPLASM OF UNSPECIFIED OVARY Current Active Problems A-fib (Acute) Abscess (Acute) Abscess of upper back excluding scapular region (Acute) Acute renal insufficiency (Acute) Cancer of ovary (Acute) Carbuncle and furuncle of neck (Acute) Cellulitis (Acute) Congestive heart failure (Acute) Primary cancer of ovary with widespread metastatic disease (Acute) Supratherapeutic INR (Acute) Hypothyroid (Chronic) Lymphedema (Chronic) Hospital Course: Admitted for abscess on her back , weakness. Seen by Oncology, ID, Pulmonary , chest surgeon No further interventions with regarding the pleural effusion-- repeat CT chest shows improvement of pleural effusion, decreased lung nodules ANTIBIOTICS CHANGED TO PO Stable for dc home she received chemotherapy yesterday May follow up next week fkr chemo She will get INR checked twice weekly Condition: Improved - Instructions Diet, Activity, Other Instructions: VNS to check pt's INR 3 times a week for 2 weeks and weekly thereafter -- please send results to Dr Elisabeth Short/ Dr Zachary High-- [phone] Disposition: HOME - Home Medications Comprehensive Discharge Medication List: Ambulatory Orders Levothyroxine [Synthroid -] 75 mcg PO DAILY 10/17/12 Loratadine [Claritin -] 10 mg PO DAILY 10/17/12 Metformin HCl [Glucophage] 500 mg PO BID 10/17/12 [place]-3 Acid Ethyl Esters [Lovaza -] 1,000 mg PO TID 10/17/12 Simvastatin [Zocor -] 40 mg PO HS 10/17/12 Insulin (Novolog) [Novolog Flexpen -] See Protocol SQ ACHS #1 pen 10/03/16 Ranitidine [Zantac -] 150 mg PO BID #30 tab 10/03/16 Insulin Aspart [Novolog Flexpen] 35 unit SQ BID 10/14/16 Warfarin Na [Coumadin -] 3 mg PO HS 10/14/16 Gabapentin [Neurontin] 300 mg PO TID 10/24/16 Potassium Chloride 10 meq PO DAILY 10/24/16 Umeclidinium [place] [Incruse Ellipta] 1 puff IH DAILY 10/24/16 Bumetanide [Bumex -] 1 mg PO BID 10/25/16 Diltiazem Cd [Cardizem Cd -] 300 mg PO DAILY 10/25/16 Amox-Tr/K Cl [Augmentin 875-125mg Tablet -] 1 tab PO BID@0800,1730 #10 tablet
--- NOTE | 2016-10-31 12:42 | PN ---
Progress Note (short form) - Note Progress Note: Breathing feels OK today. NAD on RA. Some dry cough. Intake & Output 10/28/16 10/29/16 10/30/16 10/31/16 23:59 23:59 23:59 23:59 Intake Total 2110 180 2001 1099 Output Total 2 Balance 8 180 2001 1099 Weight 348 lb 11.2 oz 349 lb 9.6 oz 350 lb 1.6 oz 350 lb 3.2 oz Last Vital Signs Temp Pulse Resp BP Pulse Ox 97.9 F 87 20 128/51 97 10/31/16 08:58 10/31/16 08:58 10/31/16 08:58 10/31/16 08:58 10/30/16 21:00 Active Medications Acetaminophen (Tylenol -) 650 mg PO Q4H PRN PRN Reason: FEVER OR PAIN Last Admin: 10/28/16 00:04 Dose: 650 mg Aclidinium [place] (Tudorza -) 1 puff IH BID [facility] Last Admin: 10/31/16 10:24 Dose: 1 puff Amoxicillin/Clavulanate Potassium (Augmentin - 875mg Tablet) 1 tab PO BID@0800, 1730 [facility] Last Admin: 10/31/16 08:54 Dose: 1 tab Atorvastatin Calcium (Lipitor -) 40 mg PO HS [facility] Last Admin: 10/30/16 22:00 Dose: 40 mg Diltiazem HCl (Cardizem Cd -) 300 mg PO DAILY [facility] Last Admin: 10/31/16 10:23 Dose: 300 mg IV Flush (Neeta-Cath Flush) 5 ml IVPUSH PRN PRN PRN Reason: FLUSH Insulin Aspart (Novolog Vial Sliding Scale -) 0 vial SQ ACHS [facility] PRN Reason: Protocol Last Admin: 10/31/16 06:28 Dose: 6 units Insulin Detemir (Levemir Vial) 35 units SQ BID@0700,2200 [facility] Last Admin: 10/31/16 06:29 Dose: 35 units Levothyroxine Sodium (Synthroid -) 75 mcg PO DAILY@0700 [facility] Last Admin: 10/31/16 06:28 Dose: 75 mcg Loratadine (Claritin -) 10 mg PO DAILY [facility] Last Admin: 10/31/16 10:24 Dose: 10 mg Ovvgo-3-Eqwb Ethyl Esters (Lovaza -) 1 gm PO TID [facility] Last Admin: 10/31/16 06:28 Dose: 1 gm Potassium Chloride (K-Dur -) 10 meq PO DAILY VIRGILIO Last Admin: 10/31/16 10:23 Dose: 10 meq Warfarin Sodium (Coumadin -) 2 mg PO DAILY@1800 VIRGILIO Constitutional: Yes: NAD, Obese Eyes: Yes: WNL HENT: Yes: WNL Neck: Yes: WNL Cardiovascular: Yes: Pulse Irregular, S1, S2 Respiratory: Yes: Diminished at the bases Gastrointestinal: Yes: Normal Bowel Sounds, Soft Extremities: Yes: WNL Edema: Yes Labs: Laboratory Results - last 24 hr 10/27/16 10/30/16 10/30/16 20:20 16:35 21:57 POC Glucometer 137 231 Blood Type O NEGATIVE Antibody Screen Negative Crossmatch See Detail Problem List - Problems (1) A-fib Code(s): I48.91 - UNSPECIFIED ATRIAL FIBRILLATION (2) Abscess Code(s): L02.91 - CUTANEOUS ABSCESS, UNSPECIFIED (3) Cancer of ovary Code(s): C56.9 - MALIGNANT NEOPLASM OF UNSPECIFIED OVARY (4) Primary cancer of ovary with widespread metastatic disease Code(s): C56.9 - MALIGNANT NEOPLASM OF UNSPECIFIED OVARY C80.0 - DISSEMINATED MALIGNANT NEOPLASM, UNSPECIFIED (5) Hypothyroid Code(s): E03.9 - HYPOTHYROIDISM, UNSPECIFIED (6) Lymphedema Code(s): I89.0 - LYMPHEDEMA, NOT ELSEWHERE CLASSIFIED (7) Diabetes Code(s): E11.9 - TYPE 2 DIABETES MELLITUS WITHOUT COMPLICATIONS (9) HTN (hypertension) Code(s): I10 - ESSENTIAL (PRIMARY) HYPERTENSION (10) Morbidly obese Code(s): E66.01 - MORBID (SEVERE) OBESITY DUE TO EXCESS CALORIES (11) Pleural effusion Code(s): J90 - PLEURAL EFFUSION, NOT ELSEWHERE CLASSIFIED Assessment/Plan Metastatic Ovarian Cancer Malignant Pleural Effusion s/p pleur-x placement/removal Shoulder Abscess s/p I&D LV Systolic Dysfunction COPD HTN DM Hyperlipidemia Atrial Fibrillation Morbid Obesity - inhaled bronchodilators - anticoagulation to maintain INR 2-3 - Outpatient CXR PRN - DVT prophylaxis Dr An
[2016-10-31] MEDS ORDERED: WARFARIN NA 2 MG TABLET (UD) PO SCH (18:00)
--- NOTE | 2016-10-31 23:03 | CON.OBG ---
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 No: O2 Dependent Gastrointestinal: Yes: GERD Hepatobiliary: No: Cirrhosis Renal/: No: Renal Failure ...: No Endocrine: Yes: Diabetes Mellitus, Hyperthyroidism - Alcohol/Substance Use Hx Alcohol Use: No - Smoking History Smoking history: Never smoked Have you smoked in the past 12 months: No Aproximately how many cigarettes per day: 0 - Social History Usual Living Arrangement: With Child History of Recent Travel: No Home Medications - Allergies Allergies/Adverse Reactions: Allergies Allergy/AdvReac Type Severity Reaction Status Date / Time No Known Allergies Allergy Verified 10/14/16 15:13 - Home Medications Home Medications: Ambulatory Orders Levothyroxine [Synthroid -] 75 mcg PO DAILY 10/17/12 Loratadine [Claritin -] 10 mg PO DAILY 10/17/12 Metformin HCl [Glucophage] 500 mg PO BID 10/17/12 [place]-3 Acid Ethyl Esters [Lovaza -] 1,000 mg PO TID 10/17/12 Simvastatin [Zocor -] 40 mg PO HS 10/17/12 Insulin (Novolog) [Novolog Flexpen -] See Protocol SQ ACHS #1 pen 10/03/16 Ranitidine [Zantac -] 150 mg PO BID #30 tab 10/03/16 Insulin Aspart [Novolog Flexpen] 35 unit SQ BID 10/14/16 Gabapentin [Neurontin] 300 mg PO TID 10/24/16 Potassium Chloride 10 meq PO DAILY 10/24/16 Umeclidinium [place] [Incruse Ellipta] 1 puff IH DAILY 10/24/16 Bumetanide [Bumex -] 1 mg PO BID 10/25/16 Diltiazem Cd [Cardizem Cd -] 300 mg PO DAILY 10/25/16 Amox-Tr/K Cl [Augmentin 875-125mg Tablet -] 1 tab PO BID@0800,1730 #10 tablet Glipizide 5 mg PO DAILY #60 tablet 10/31/16 Warfarin Na [Coumadin -] 3 mg PO DAILY #60 tablet 10/31/16 Family Disease History - Family Disease History Family Disease History: Diabetes: Mother, CA: Mother Review of Systems - Review of Systems Constitutional: reports: Loss of Appetite, Malaise Genitourinary: reports: Vaginal Bleeding Physical Exam-INSPECTOR Vital Signs: Vital Signs Temperature 97.9 F 10/31/16 08:58 Pulse Rate 87 10/31/16 08:58 Respiratory Rate 20 10/31/16 08:58 Blood Pressure 128/51 10/31/16 08:58 O2 Sat by Pulse Oximetry (%) 98 10/31/16 09:00 Constitutional: Yes: Obese Gastrointestinal: Yes: Normal Bowel Sounds, Soft, Abdomen, Obese, Ascites External Genitalia: Yes: Normal Vaginal Exam: Yes: Normal Cervix: Yes: Normal Uterus: Yes: Other (not paplpabel) Adnexa: Not Palpable: Left, Right Labs: CBC, BMP 10/30/16 09:41 10/30/16 09:41 Problem List - Problems (1) Cancer of ovary Code(s): C56.9 - MALIGNANT NEOPLASM OF UNSPECIFIED OVARY Qualifiers: Laterality: unspecified laterality Qualified Code(s): C56.9 - Malignant neoplasm of unspecified ovary (2) Postmenopausal vaginal bleeding Code(s): N95.0 - POSTMENOPAUSAL BLEEDING Assessment/Plan she has no active vaginal bleeding on chemo, advised to follow up in office after chemo for revaluation for possible D&C
== END 2016-10-31 12:57 | disposition home or self-care (01) | DRG 603 ==
LOC: JONCCHEMO 07:33 → J7W 12:58
PROVIDERS: ADMIT Internal Medicine; ATTEND Internal Medicine
PROC: 0H96XZX Drainage of Back Skin, External Approach, Diagnostic (ICD-10-PCS; principal; 2016-10-25)
PROC: 30233N1 Transfusion of Nonautologous Red Blood Cells into Peripheral Vein, Percutaneous Approach (ICD-10-PCS; 2016-10-27)
PROC: 3E03305 Introduction of Other Antineoplastic into Peripheral Vein, Percutaneous Approach (ICD-10-PCS; 2016-10-30)
DX: L02.413 Cutaneous abscess of right upper limb (principal); C56.9 Malignant neoplasm of unspecified ovary; C80.0 Disseminated malignant neoplasm, unspecified; Z68.43 Body mass index [BMI] 50.0-59.9, adult; J98.11 Atelectasis; J91.0 Malignant pleural effusion; I50.22 Chronic systolic (congestive) heart failure; L02.13 Carbuncle of neck; L02.12 Furuncle of neck; I48.91 Unspecified atrial fibrillation; B95.8 Unspecified staphylococcus as the cause of diseases classified elsewhere; J44.9 Chronic obstructive pulmonary disease, unspecified; K21.9 Gastro-esophageal reflux disease without esophagitis; E11.9 Type 2 diabetes mellitus without complications; Z79.4 Long term (current) use of insulin; E66.01 Morbid (severe) obesity due to excess calories; Z71.3 Dietary counseling and surveillance; E03.9 Hypothyroidism, unspecified; I11.0 Hypertensive heart disease with heart failure; R79.1 Abnormal coagulation profile; E87.6 Hypokalemia; L72.3 Sebaceous cyst; D64.81 Anemia due to antineoplastic chemotherapy; I89.0 Lymphedema, not elsewhere classified
CPT/HCPCS: 36415; 36430; 71010-TC; 71250-TC; 76604-TC; 80048; 80053; 83735; 84100; 85025; 85027; 85610; 86850; 86900; 86901; 86922; 87040; 87070; 87086; 87205; 94640; 96361; 96367; 96375; 96413; 96417; 97116-GP; 97162-GP; G0480; P9058

== ENCOUNTER 2016-11-07 07:46 | Day surgery (SDC) | payer OTHER ==
[2016-11-07] MEDS ORDERED: SODIUM CHLORIDE 250 ML IV ONE (08:00)
[2016-11-07] MEDS ORDERED: DEXAMETHASONE INJECTION 10 MG in SODIUM CHLORIDE 50 ML IVPB ONE (08:30)
[2016-11-07] MEDS ORDERED: PALONOSETRON HCL 0.25 MG in SODIUM CHLORIDE 50 ML IVPB ONE (08:30)
[2016-11-07] MEDS ORDERED: RANITIDINE INJECTION 50 MG, DIPHENHYDRAMINE 50 MG in SODIUM CHLORIDE 100 ML IVPB ONE (08:30)
[2016-11-07] MEDS ORDERED: PACLITAXEL 126 MG in SODIUM CHLORIDE 250 ML IVPB ONE (09:00)
[2016-11-07] MEDS ORDERED: CARBOPLATIN IVPB ONE ×2 (10:00→12:00)
[2016-11-07] MEDS ORDERED: SODIUM CHLORIDE IVPB ONE ×2 (10:00→12:00)
[2016-11-07 10:41] LABS: MCH 25.3 pg (25.7-33.7); MCHC 32.2 g/dl (32.0-36.0); MEAN CELL VOLUME 78.6 fl (80-96); MEAN PLT VOLUME 8.2 fl (7.5-11.1); PLATELET COUNT 254 K/MM3 (134-434); RDW 20.6 % (11.6-15.6)
[2016-11-07 11:13] LABS: ALBUMIN 2.7 g/dl (3.4-5.0); ALK PHOS 129 U/L (45-117); ANION GAP 9 (8-16); BILIRUBIN,DIRECT 0.2 mg/dL (0.0-0.2); BILIRUBIN,TOTAL 0.4 mg/dL (0.2-1.0); CALCIUM 9.6 mg/dL (8.5-10.1); CO2 26 mmol/L (21-32); CREATININE 0.9 mg/dL (0.55-1.02); GLUCOSE,RANDOM 138 mg/dL (74-106); MAGNESIUM 1.6 mg/dL (1.8-2.4); SGOT/AST 18 U/L (15-37); SGPT/ALT 17 U/L (12-78); TOT PROT 6.6 g/dl (6.4-8.2)
[2016-11-07 11:45] VITALS: TEMP 98.6
[2016-11-07] MEDS ORDERED: PORTA CATH FLUSH 10 ML IVPUSH ONE ×2 (11:46→14:51)
[2016-11-07] MEDS ORDERED: MAGNESIUM SULF 50% (8.12 MEQ/2 ML-1 GM VIAL) IVPB ONE (12:00)
[2016-11-07 13:09] LABS: METAMYELOCYTE 1 % (0-2); PLATELET ESTIMATE ADEQUATE (NORMAL)
[2016-11-07 16:49] VITALS: BP 103/56; PULSE 62
[2016-11-07] MEDS ORDERED: BACITRACIN 15 GM TUBE TOPICAL OINTMENT TP SCH (22:00)
== END 2016-11-07 16:45 | disposition home or self-care (01) ==
LOC: JONCCHEMO 07:46 → J7W 11:03 → JONCCHEMO 16:45
PROVIDERS: ATTEND Internal Medicine Hematology & Oncology
PROC: 3E04305 Introduction of Other Antineoplastic into Central Vein, Percutaneous Approach (ICD-10-PCS; principal; 2016-11-07)
PROC: 3E043GC Introduction of Other Therapeutic Substance into Central Vein, Percutaneous Approach (ICD-10-PCS; 2016-11-07)
PROC: 3E0437Z Introduction of Electrolytic and Water Balance Substance into Central Vein, Percutaneous Approach (ICD-10-PCS; 2016-11-07)
DX: Z51.11 Encounter for antineoplastic chemotherapy (principal); C56.9 Malignant neoplasm of unspecified ovary
CPT/HCPCS: 96361; 96367; 96375; 96413; 96417; J9045; J9267; 36415; 80053; 80076; 83735; 85025; 96415; J2469

== ENCOUNTER 2016-11-14 07:49 | Day surgery (SDC) | payer OTHER ==
[2016-11-14] MEDS ORDERED: SODIUM CHLORIDE 250 ML IV ONE (08:00)
[2016-11-14] MEDS ORDERED: DEXAMETHASONE INJECTION 10 MG in SODIUM CHLORIDE 50 ML IVPB ONE (08:30)
[2016-11-14] MEDS ORDERED: RANITIDINE INJECTION 50 MG, DIPHENHYDRAMINE 50 MG in SODIUM CHLORIDE 100 ML IVPB ONE (08:30)
[2016-11-14] MEDS ORDERED: PALONOSETRON HCL 0.25 MG in SODIUM CHLORIDE 50 ML IVPB ONE (08:30)
[2016-11-14] MEDS ORDERED: PACLITAXEL 126 MG in SODIUM CHLORIDE 250 ML IVPB ONE (09:00)
[2016-11-14] MEDS ORDERED: SODIUM CHLORIDE IVPB ONE (10:00)
[2016-11-14] MEDS ORDERED: CARBOPLATIN IVPB ONE (10:00)
[2016-11-14 11:25] LABS: BASOPHIL 0.6 % (0-2.0); EOSINOPHIL 0.6 % (0-4.5); MCH 25.8 pg (25.7-33.7); MCHC 32.1 g/dl (32.0-36.0); MEAN CELL VOLUME 80.5 fl (80-96); MEAN PLT VOLUME 8.8 fl (7.5-11.1); NEUTROPHILS 71.6 % (42.8-82.8); PLATELET COUNT 197 K/MM3 (134-434); RDW 20.9 % (11.6-15.6)
[2016-11-14 11:52] LABS: ALBUMIN 2.9 g/dl (3.4-5.0); ALK PHOS 125 U/L (45-117); ANION GAP 12 (8-16); BILIRUBIN,DIRECT 0.2 mg/dL (0.0-0.2); BILIRUBIN,TOTAL 0.6 mg/dL (0.2-1.0); CALCIUM 9.5 mg/dL (8.5-10.1); CO2 27 mmol/L (21-32); CREATININE 0.9 mg/dL (0.55-1.02); GLUCOSE,RANDOM 155 mg/dL (74-106); SGOT/AST 16 U/L (15-37); SGPT/ALT 14 U/L (12-78); TOT PROT 6.6 g/dl (6.4-8.2)
[2016-11-14 13:17] VITALS: TEMP 98.2
[2016-11-14] MEDS ORDERED: LIDOCAINE 2.5%/PRILOCAINE 2.5% (5 Gram/TUBE) TP SCH (15:15)
[2016-11-14] MEDS ORDERED: PORTA CATH FLUSH 10 ML IVPUSH ONE ×2 (17:17→17:53)
[2016-11-14 17:53] VITALS: BP 125/56; PULSE 73
== END 2016-11-14 17:59 | disposition home or self-care (01) ==
LOC: JONCCHEMO 07:49 → J7W 12:40 → JONCCHEMO 17:59
PROVIDERS: ATTEND Internal Medicine Hematology & Oncology
DX: Z51.11 Encounter for antineoplastic chemotherapy (principal); C56.9 Malignant neoplasm of unspecified ovary
CPT/HCPCS: 36415; 80053; 80076; 85025; 86300; 86304; 96361; 96367; 96375; 96413; 96417; J2469

== ENCOUNTER 2016-11-21 07:29 | Day surgery (SDC) | payer OTHER ==
[2016-11-21] MEDS ORDERED: SODIUM CHLORIDE 250 ML IV ONE (08:00)
[2016-11-21] MEDS ORDERED: PALONOSETRON HCL 0.25 MG in SODIUM CHLORIDE 50 ML IVPB ONE (08:30)
[2016-11-21] MEDS ORDERED: DEXAMETHASONE INJECTION 10 MG in SODIUM CHLORIDE 50 ML IVPB ONE (08:30)
[2016-11-21] MEDS ORDERED: RANITIDINE INJECTION 50 MG, DIPHENHYDRAMINE 50 MG in SODIUM CHLORIDE 100 ML IVPB ONE (08:30)
[2016-11-21] MEDS ORDERED: PACLITAXEL 126 MG in SODIUM CHLORIDE 250 ML IVPB ONE (09:00)
[2016-11-21] MEDS ORDERED: SODIUM CHLORIDE IVPB ONE ×2 (10:00→12:30)
[2016-11-21] MEDS ORDERED: CARBOPLATIN IVPB ONE ×2 (10:00→12:30)
[2016-11-21 10:44] VITALS: PULSE 84
[2016-11-21 10:55] LABS: MCH 26.5 pg (25.7-33.7); MCHC 32.1 g/dl (32.0-36.0); MEAN CELL VOLUME 82.6 fl (80-96); MEAN PLT VOLUME 8.5 fl (7.5-11.1); PLATELET COUNT 164 K/MM3 (134-434); RDW 22.6 % (11.6-15.6); WHITE BLOOD COUNT 4.8 K/mm3 (4.0-10.0)
[2016-11-21 11:25] LABS: ANION GAP 6 (8-16); BILIRUBIN,DIRECT 0.2 mg/dL (0.0-0.2); BILIRUBIN,TOTAL 0.6 mg/dL (0.2-1.0); CALCIUM 9.5 mg/dL (8.5-10.1); CO2 30 mmol/L (21-32); CREATININE 0.8 mg/dL (0.55-1.02); GLUCOSE,RANDOM 126 mg/dL (74-106); MAGNESIUM 1.7 mg/dL (1.8-2.4); SGOT/AST 13 U/L (15-37); SGPT/ALT 15 U/L (12-78); TOT PROT 6.7 g/dl (6.4-8.2)
[2016-11-21 11:26] LABS: ALK PHOS 105 U/L (45-117)
[2016-11-21] MEDS ORDERED: MAGNESIUM SULF 50% (8.12 MEQ/2 ML-1 GM VIAL) IVPB ONE (11:42)
[2016-11-21 14:22] LABS: METAMYELOCYTE 2 % (0-2); PLATELET ESTIMATE ADEQUATE (NORMAL)
[2016-11-21 17:55] VITALS: BP 124/72; TEMP 98.4
== END 2016-11-21 18:00 | disposition home or self-care (01) ==
LOC: JONCCHEMO 07:29 → J7W 11:39 → JONCCHEMO 18:00
PROVIDERS: ATTEND Internal Medicine Hematology & Oncology
DX: Z51.11 Encounter for antineoplastic chemotherapy (principal); C56.9 Malignant neoplasm of unspecified ovary
CPT/HCPCS: 36415; 80053; 80076; 83735; 85025; 96361; 96368; 96375; 96413; 96417; J2469

== ENCOUNTER 2016-11-28 07:42 | Day surgery (SDC) | payer OTHER ==
[2016-11-28] MEDS ORDERED: PALONOSETRON HCL 0.25 MG in SODIUM CHLORIDE 50 ML IVPB ONE (10:00)
[2016-11-28] MEDS ORDERED: SODIUM CHLORIDE 250 ML IV ONE (10:00)
[2016-11-28] MEDS ORDERED: DEXAMETHASONE INJECTION 10 MG in SODIUM CHLORIDE 50 ML IVPB ONE (10:00)
[2016-11-28] MEDS ORDERED: RANITIDINE IVPB ONE (10:00)
[2016-11-28] MEDS ORDERED: DIPHENHYDRAMINE IVPB ONE (10:00)
[2016-11-28] MEDS ORDERED: SODIUM CHLORIDE IVPB ONE ×2 (10:00→11:30)
[2016-11-28] MEDS ORDERED: PACLITAXEL 126 MG in SODIUM CHLORIDE 250 ML IVPB ONE (10:30)
[2016-11-28 10:58] LABS: MCH 27.1 pg (25.7-33.7); MCHC 32.1 g/dl (32.0-36.0); MEAN CELL VOLUME 84.2 fl (80-96); MEAN PLT VOLUME 8.9 fl (7.5-11.1); PLATELET COUNT 149 K/MM3 (134-434); RDW 24.6 % (11.6-15.6); WHITE BLOOD COUNT 4.9 K/mm3 (4.0-10.0)
[2016-11-28 11:22] LABS: HYPOCHROMIA 1+; PLATELET ESTIMATE DECREASED (NORMAL); POLYCHROMASIA FEW
[2016-11-28 11:23] LABS: ANISOCYTOSIS 3+; MICROCYTOSIS 2+
[2016-11-28] MEDS ORDERED: CARBOPLATIN IVPB ONE (11:30)
[2016-11-28 11:32] LABS: ALBUMIN 3.1 g/dl (3.4-5.0); ALK PHOS 114 U/L (45-117); ANION GAP 8 (8-16); BILIRUBIN,DIRECT 0.2 mg/dL (0.0-0.2); BILIRUBIN,TOTAL 0.5 mg/dL (0.2-1.0); CALCIUM 9.6 mg/dL (8.5-10.1); CO2 28 mmol/L (21-32); CREATININE 0.8 mg/dL (0.55-1.02); GLUCOSE,RANDOM 123 mg/dL (74-106); MAGNESIUM 1.8 mg/dL (1.8-2.4); SGOT/AST 14 U/L (15-37); SGPT/ALT 16 U/L (12-78); TOT PROT 6.7 g/dl (6.4-8.2)
[2016-11-28 16:50] VITALS: BP 110/58; PULSE 67; TEMP 98.5
== END 2016-11-28 17:58 | disposition home or self-care (01) ==
LOC: JONCCHEMO 07:42 → J7W 12:30 → JONCCHEMO 17:58
PROVIDERS: ATTEND Internal Medicine Hematology & Oncology
PROC: 3E04305 Introduction of Other Antineoplastic into Central Vein, Percutaneous Approach (ICD-10-PCS; principal; 2016-11-28)
PROC: 3E043GC Introduction of Other Therapeutic Substance into Central Vein, Percutaneous Approach (ICD-10-PCS; 2016-11-28)
PROC: 3E0437Z Introduction of Electrolytic and Water Balance Substance into Central Vein, Percutaneous Approach (ICD-10-PCS; 2016-11-28)
DX: Z51.11 Encounter for antineoplastic chemotherapy (principal); C56.9 Malignant neoplasm of unspecified ovary
CPT/HCPCS: 96361; 96375; 96413; 96417; J9045; J9267; 36415; 80053; 80076; 83735; 85025; J2469

== ENCOUNTER 2016-12-05 07:57 | Day surgery (SDC) | payer OTHER ==
[2016-12-05] MEDS ORDERED: PALONOSETRON HCL 0.25 MG in SODIUM CHLORIDE 50 ML IVPB ONE (10:00)
[2016-12-05] MEDS ORDERED: SODIUM CHLORIDE IVPB ONE ×2 (10:00→15:00)
[2016-12-05] MEDS ORDERED: DEXAMETHASONE INJECTION 10 MG in SODIUM CHLORIDE 50 ML IVPB ONE (10:00)
[2016-12-05] MEDS ORDERED: RANITIDINE IVPB ONE (10:00)
[2016-12-05] MEDS ORDERED: DIPHENHYDRAMINE IVPB ONE (10:00)
[2016-12-05] MEDS ORDERED: SODIUM CHLORIDE 250 ML IV ONE (10:00)
[2016-12-05 10:19] LABS: BASOPHIL 0.8 % (0-2.0); EOSINOPHIL 0.3 % (0-4.5); MCH 28.4 pg (25.7-33.7); MEAN CELL VOLUME 85.9 fl (80-96); MEAN PLT VOLUME 8.5 fl (7.5-11.1); NEUTROPHILS 61.1 % (42.8-82.8); PLATELET COUNT 129 K/MM3 (134-434); RDW 28.5 % (11.6-15.6); WHITE BLOOD COUNT 3.4 K/mm3 (4.0-10.0)
[2016-12-05] MEDS ORDERED: PACLITAXEL 126 MG in SODIUM CHLORIDE 250 ML IVPB ONE (10:30)
[2016-12-05 11:01] LABS: ALBUMIN 3.1 g/dl (3.4-5.0); ANION GAP 6 (8-16); BILIRUBIN,DIRECT 0.3 mg/dL (0.0-0.2); BILIRUBIN,TOTAL 0.9 mg/dL (0.2-1.0); CALCIUM 9.4 mg/dL (8.5-10.1); CO2 29 mmol/L (21-32); CREATININE 0.8 mg/dL (0.55-1.02); GLUCOSE,RANDOM 139 mg/dL (74-106); MAGNESIUM 1.8 mg/dL (1.8-2.4); SGOT/AST 18 U/L (15-37); TOT PROT 6.6 g/dl (6.4-8.2)
[2016-12-05 11:10] LABS: ALK PHOS 108 U/L (45-117); SGPT/ALT 16 U/L (12-78)
[2016-12-05 14:43] LABS: ANISOCYTOSIS 3+; HYPOCHROMIA 3+; MICROCYTOSIS 2+; TEAR DROP CELLS 1+
[2016-12-05] MEDS ORDERED: CARBOPLATIN IVPB ONE (15:00)
--- NOTE | 2016-12-05 16:12 | PN ---
Progress Note, Physician Chief Complaint: Pt here for chemotherapy She c/o SOB Had UTI and completed antibiotics Has heavy feeling in legs No GI bleeding on Coumadin for Afib - Current Medication List Current Medications: Active Medications Atorvastatin Calcium (Lipitor -) 20 mg PO HS VIRGILIO Bumetanide (Bumex -) 1 mg PO BID@0600,1400 [facility] Diltiazem HCl (Cardizem Cd -) 300 mg PO DAILY VIRGILIO Gabapentin (Neurontin -) 300 mg PO TID VIRGILIO Glipizide (Glucotrol -) 5 mg PO ACBK VIRGILIO Insulin Aspart (Novolog Vial Sliding Scale -) 1 vial SQ TIDAC [facility] PRN Reason: Protocol Levothyroxine Sodium (Synthroid -) 75 mcg PO ACBK VIRGILIO Metformin HCl (Glucophage -) 500 mg PO BIDI [facility] Ixqtj-[id number]-Gtwq Ethyl Esters (Lovaza -) 1 gm PO TID VIRGILIO Ranitidine HCl (Zantac -) 150 mg PO BID [facility] Warfarin Sodium (Coumadin -) 3 mg PO DAILY@1800 [facility] - Objective Vital Signs: Vital Signs Temperature 98.2 F 12/05/16 10:11 Pulse Rate 101 H 12/05/16 10:11 Respiratory Rate 18 12/05/16 10:11 Blood Pressure 120/64 12/05/16 10:11 O2 Sat by Pulse Oximetry (%) Constitutional: Yes: No Distress, Calm Cardiovascular: Yes: Pulse Irregular Respiratory: Yes: Diminished (left side), Other (left chest wall-- healing wound , no discharge) Gastrointestinal: Yes: Normal Bowel Sounds, Abdomen, Obese. No: Distention, Tenderness Edema: Yes (lymphedema B/L ) Psychiatric: Yes: Alert, Oriented Labs: CBC, BMP 12/05/16 09:50 12/05/16 09:50 Problem List - Problems (1) A-fib Code(s): I48.91 - UNSPECIFIED ATRIAL FIBRILLATION Qualifiers: Atrial fibrillation type: chronic Qualified Code(s): I48.2 - Chronic atrial fibrillation (2) Lymphedema Code(s): I89.0 - LYMPHEDEMA, NOT ELSEWHERE CLASSIFIED (3) Cancer of ovary Code(s): C56.9 - MALIGNANT NEOPLASM OF UNSPECIFIED OVARY Qualifiers: (4) Congestive heart failure Code(s): I50.9 - HEART FAILURE, UNSPECIFIED Qualifiers: Congestive heart failure type: combined Congestive heart failure chronicity: chronic Qualified Code(s): I50.42 - Chronic combined systolic (congestive) and diastolic (congestive) heart failure (5) Diabetes Code(s): E11.9 - TYPE 2 DIABETES MELLITUS WITHOUT COMPLICATIONS Qualifiers: Diabetes mellitus type: type 2 Diabetes mellitus complication status: without complication (6) HTN (hypertension) Code(s): I10 - ESSENTIAL (PRIMARY) HYPERTENSION Qualifiers: Hypertension type: essential hypertension Qualified Code(s): I10 - Essential (primary) hypertension (7) Morbidly obese Code(s): E66.01 - MORBID (SEVERE) OBESITY DUE TO EXCESS CALORIES (8) SOB (shortness of breath) Code(s): R06.02 - SHORTNESS OF BREATH (9) Anemia Code(s): D64.9 - ANEMIA, UNSPECIFIED Assessment/Plan PLAN Chemo as per Oncology Pt will be transfused today-- 2 units SOB may be due to Anemia but will need CT chest as she has h/o malignant pleural effusion Pulmonary evaluation Continue with meds Check INR and give Coumadin accordingly spoke with daughter Kvng in between transfusion
[2016-12-05 16:29] LABS: INR 2.24 (0.82-1.09); PROTHROMBIN TIME (PATIENT) 25.1 SEC (9.98-11.88)
[2016-12-05] MEDS: metFORMIN HCL 500 MG TABLET (FP) PO SCH (18:24)
[2016-12-05] MEDS: INSULIN SLIDING SCALE (NOVOLOG) 1 VIAL SQ SCH (18:27)
[2016-12-05] MEDS ORDERED: BUMETANIDE 1 MG TABLET PO ONE (21:00)
[2016-12-05] MEDS: BUMETANIDE 1 MG TABLET PO SCH (21:37)
[2016-12-05] MEDS ORDERED: WARFARIN NA 3 MG TABLET PO SCH (21:45)
[2016-12-05] MEDS: GABAPENTIN 300 MG CAPSULE (FP) PO SCH ×2 (21:54→21:56)
[2016-12-05] MEDS: RANITIDINE HCL 150 MG TABLET (FP) PO SCH (21:54)
[2016-12-05] MEDS: ATORVASTATIN CA 20 MG TABLET (FP) PO SCH ×2 (21:54→21:56)
[2016-12-05] MEDS: OMEGA-3 ACID ETHYL ESTERS (FATTY-ACIDS) 1 GM CAPSULE (FP) PO SCH (21:54)
[2016-12-05] MEDS ORDERED: PATIENT'S OWN MEDICATION (NON-FORMULARY) (Simvastatin 40 MG) PO SCH (22:00)
[2016-12-05] MEDS ORDERED: METFORMIN HCL 500 MG PO SCH (22:00)
[2016-12-06] MEDS: BUMETANIDE 1 MG TABLET PO SCH ×2 (06:31→14:53)
[2016-12-06] MEDS: metFORMIN HCL 500 MG TABLET (FP) PO SCH ×2 (06:32→19:11)
[2016-12-06] MEDS: OMEGA-3 ACID ETHYL ESTERS (FATTY-ACIDS) 1 GM CAPSULE (FP) PO SCH ×2 (06:32→14:53)
[2016-12-06] MEDS: INSULIN SLIDING SCALE (NOVOLOG) 1 VIAL SQ SCH ×3 (06:32→19:11)
[2016-12-06] MEDS: GABAPENTIN 300 MG CAPSULE (FP) PO SCH ×2 (06:32→14:53)
[2016-12-06] MEDS ORDERED: INSULIN (NOVOLOG) ASPART 100 UNITS/ML 10ML VIAL ONE ×2 (06:57→12:08)
[2016-12-06] MEDS ORDERED: LEVOTHYROXINE NA 75 MCG TABLET (FP) PO SCH (07:00)
[2016-12-06] MEDS ORDERED: glipiZIDE 5 MG TABLET (FP) PO SCH (07:00)
[2016-12-06 07:51] LABS: MCH 28.7 pg (25.7-33.7); MCHC 33.5 g/dl (32.0-36.0); MEAN CELL VOLUME 85.6 fl (80-96); MEAN PLT VOLUME 9.9 fl (7.5-11.1); PLATELET COUNT 126 K/MM3 (134-434); RDW 25.4 % (11.6-15.6); WHITE BLOOD COUNT 2.4 K/mm3 (4.0-10.0)
[2016-12-06 08:03] LABS: INR 1.95 (0.82-1.09); PROTHROMBIN TIME (PATIENT) 21.7 SEC (9.98-11.88)
[2016-12-06] MEDS: RANITIDINE HCL 150 MG TABLET (FP) PO SCH (09:21)
--- NOTE | 2016-12-06 10:26 | CONSULT ---
Consult Consult Specialty:: Oncology Referred by:: Dr. Short Reason for Consultation:: Papillary Serous Ovarian cancer undergoing chemotherapy with taxol/ carbo-[place] - Past Medical History Cardio/Vascular: Yes: AFIB, HTN, Other (chronic lymphedema) Pulmonary: Yes: COPD, Other (recently had a chest tube removed). No: O2 Dependent Gastrointestinal: Yes: GERD Heme/Onc: Yes: Anemia, Cancer Endocrine: Yes: Diabetes Mellitus, Hypothyroidism - Alcohol/Substance Use Hx Alcohol Use: No - Smoking History Smoking history: Never smoked Have you smoked in the past 12 months: No Aproximately how many cigarettes per day: 0 - Social History Usual Living Arrangement: With Child History of Recent Travel: No Home Medications - Allergies Allergies/Adverse Reactions: Allergies Allergy/AdvReac Type Severity Reaction Status Date / Time No Known Allergies Allergy Verified 10/14/16 15:13 - Home Medications Home Medications: Ambulatory Orders Levothyroxine [Synthroid -] 75 mcg PO DAILY 10/17/12 Loratadine [Claritin -] 10 mg PO DAILY 10/17/12 Metformin HCl [Glucophage] 500 mg PO BID 10/17/12 [employer] Acid Ethyl Esters [Lovaza -] 1,000 mg PO TID 10/17/12 Simvastatin [Zocor -] 40 mg PO HS 10/17/12 Insulin (Novolog) [Novolog Flexpen -] See Protocol SQ ACHS #1 pen 10/03/16 Ranitidine [Zantac -] 150 mg PO BID #30 tab 10/03/16 Insulin Aspart [Novolog Flexpen] 35 unit SQ BID 10/14/16 Gabapentin [Neurontin] 300 mg PO TID 10/24/16 Potassium Chloride 10 meq PO DAILY 10/24/16 Umeclidinium [place] [Incruse Ellipta] 1 puff IH DAILY 10/24/16 Bumetanide [Bumex -] 1 mg PO BID 10/25/16 Diltiazem Cd [Cardizem Cd -] 300 mg PO DAILY 10/25/16 Amox-Tr/K Cl [Augmentin 875-125mg Tablet -] 1 tab PO BID@0800,1730 #10 tablet Glipizide 5 mg PO DAILY #60 tablet 10/31/16 Warfarin Na [Coumadin -] 3 mg PO DAILY #60 tablet 10/31/16 Family Disease History - Family Disease History Family Disease History: Diabetes: Mother, CA: Mother Review of Systems - Review of Systems Constitutional: reports: Loss of Appetite, Malaise, Weakness. denies: Fever Eyes: denies: Double Vision, Eye Pain, Recent Change in Vision HENT: denies: Epistaxis, Hearing Loss, Mouth Swelling, Nasal Congestion, Throat Pain Neck: denies: Pain on Movement, Stiffness, Tenderness Cardiovascular: reports: Edema, Shortness of Breath. denies: Chest Pain, Palpitations Respiratory: reports: Exercise Intolerance, SOB, SOB on Exertion. denies: Wheezing Gastrointestinal: denies: Constipation, Diarrhea, Melena, Nausea, Vomiting Genitourinary: denies: Burning, Discharge, Dysuria, Flank Pain, Hematuria Breasts: reports: No Symptoms Reported Musculoskeletal: reports: Muscle Weakness. denies: Back Pain, Extremity Pain Integumentary: denies: Pruritis, Rash Neurological: reports: Weakness. denies: Confusion, Dizziness Endocrine: reports: No Symptoms Hematology/Lymphatic: denies: Excessive Bleeding, Swollen Glands Psychiatric: reports: No Symptoms Physical Exam Vital Signs: Vital Signs Temperature 97.8 F 12/06/16 09:00 Pulse Rate 87 12/06/16 06:07 Respiratory Rate 20 12/06/16 09:00 Blood Pressure 150/70 12/06/16 09:00 O2 Sat by Pulse Oximetry (%) 98 12/06/16 09:00 Constitutional: Yes: Mild Distress Eyes: Yes: PERRL. No: Diplopia, Ptosis, Sclera Icterus HENT: Yes: Normocephalic. No: Hoarseness, Thrush Neck: Yes: Supple. No: Lymphadenopathy, Tenderness, Thyromegaly Cardiovascular: Yes: Pulse Irregular Respiratory: Yes: Diminished Gastrointestinal: Yes: Abdomen, Obese. No: Hepatomegaly, Splenomegaly Renal/: No: CVA Tenderness - Left, CVA Tenderness - Right Breast(s): Yes: WNL, Left, Right Musculoskeletal: No: Muscle Pain Extremities: Yes: Other (lymphedema) Edema: LLE: 4+, RLE: 4+ Integumentary: No: Bruising, Erythema, Jaundice Neurological: Yes: Alert, Oriented ...Motor Strength: WNL Psychiatric: Yes: WNL Labs: CBC, BMP 12/06/16 06:00 12/05/16 09:50 Problem List - Problems (1) A-fib Assessment/Plan: Coumadin therapy per INR Code(s): I48.91 - UNSPECIFIED ATRIAL FIBRILLATION Qualifiers: Atrial fibrillation type: chronic Qualified Code(s): I48.2 - Chronic atrial fibrillation (2) Anemia Assessment/Plan: Likely secondary to chemotherapy. Received 2 units of packed cells with minimal improvement in Hct. Will give one additional unit of packed cells. Code(s): D64.9 - ANEMIA, UNSPECIFIED (3) SOB (shortness of breath) Assessment/Plan: For Pulmonary evaluation . Had CT scan - To discuss with pulmonary. 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 Has had good clinical response with fall in Ca-125 and lack of accumulation of malignant pleural effusions. Last chemotherapy 12/05. Code(s): C80.1 - MALIGNANT (PRIMARY) NEOPLASM, UNSPECIFIED (5) Lymphedema Code(s): I89.0 - LYMPHEDEMA, NOT ELSEWHERE CLASSIFIED (6) Pulmonary nodules/lesions, multiple Assessment/Plan: Discussed with pulmonary . As it would be unlikely at this time to knife changer , will defer on obtaining biopsy of nodules. Code(s): R91.8 - OTHER NONSPECIFIC ABNORMAL FINDING OF LUNG FIELD (7) Neutropenia Assessment/Plan: Falling WBC and ANC. For neupogen therapy. Code(s): D70.9 - NEUTROPENIA, UNSPECIFIED
--- NOTE | 2016-12-06 11:00 | CON.PULM ---
Consult Consult Specialty:: PULMONARY Referred by:: BUDDY Reason for Consultation:: LUNG NODULES - History of Present Illness Chief Complaint: SOB History of Present Illness: 61 WHITE FEMALE KNOWN BY OUR SERVICE. ADMITTED WITH SOB FOUND TO HAVE LUNG NODULES ON CT CHEST LIKELY DUE TO OVARIAN CANCER PATIENT HAS A MALIGNANT EFFUSION WITH A PLEUREX WHICH WAS PLACED AND REMOVED. SHOULDER ABSCESS DRAINED,MULTIPLE OTHER CO-MORBID CONDITIONS. 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 No: O2 Dependent Gastrointestinal: Yes: GERD Heme/Onc: Yes: Anemia, Other (OVARIAN CA W METS) Endocrine: Yes: Diabetes Mellitus, Hyperthyroidism - Alcohol/Substance Use Hx Alcohol Use: No - Smoking History Smoking history: Never smoked Have you smoked in the past 12 months: No Aproximately how many cigarettes per day: 0 - Social History Usual Living Arrangement: With Child ADL: Family Assistance Place of : [facility] History of Recent Travel: No Home Medications - Allergies Allergies/Adverse Reactions: Allergies Allergy/AdvReac Type Severity Reaction Status Date / Time No Known Allergies Allergy Verified 10/14/16 15:13 - Home Medications Home Medications: Ambulatory Orders Levothyroxine [Synthroid -] 75 mcg PO DAILY 10/17/12 Loratadine [Claritin -] 10 mg PO DAILY 10/17/12 Metformin HCl [Glucophage] 500 mg PO BID 10/17/12 [place]-3 Acid Ethyl Esters [Lovaza -] 1,000 mg PO TID 10/17/12 Simvastatin [Zocor -] 40 mg PO HS 10/17/12 Insulin (Novolog) [Novolog Flexpen -] See Protocol SQ ACHS #1 pen 10/03/16 Ranitidine [Zantac -] 150 mg PO BID #30 tab 10/03/16 Insulin Aspart [Novolog Flexpen] 35 unit SQ BID 10/14/16 Gabapentin [Neurontin] 300 mg PO TID 10/24/16 Potassium Chloride 10 meq PO DAILY 10/24/16 Umeclidinium [place] [Incruse Ellipta] 1 puff IH DAILY 10/24/16 Bumetanide [Bumex -] 1 mg PO BID 10/25/16 Diltiazem Cd [Cardizem Cd -] 300 mg PO DAILY 10/25/16 Amox-Tr/K Cl [Augmentin 875-125mg Tablet -] 1 tab PO BID@0800,1730 #10 tablet Glipizide 5 mg PO DAILY #60 tablet 10/31/16 Warfarin Na [Coumadin -] 3 mg PO DAILY #60 tablet 10/31/16 Family Disease History - Family Disease History Family Disease History: Diabetes: Mother, CA: Mother Review of Systems - Review of Systems Constitutional: denies: Fever Eyes: denies: Blurred Vision HENT: denies: Difficult Swallowing Neck: denies: Decreased ROM Cardiovascular: denies: Chest Pain Respiratory: reports: SOB, SOB on Exertion. denies: Hemoptysis, Wheezing Gastrointestinal: denies: Abdominal Pain Genitourinary: denies: Burning Integumentary: reports: Other (INDURATED AREA LEFT AXILLARY REGION SITE OF PRIOR CT INSERTION) Neurological: denies: Change in LOC Physical Exam Vital Sings: Vital Signs Temperature 97.8 F 12/06/16 09:00 Pulse Rate 87 12/06/16 06:07 Respiratory Rate 20 12/06/16 09:00 Blood Pressure 150/70 12/06/16 09:00 O2 Sat by Pulse Oximetry (%) 98 12/06/16 09:00 Constitutional: Yes: Calm Eyes: Yes: EOM Intact HENT: Yes: Normocephalic Neck: Yes: Trachea Midline Cardiovascular: Yes: Regular Rate and Rhythm Respiratory: Yes: Other (DISTANT BRETH SOUNDS BILATERALLY) Gastrointestinal: Yes: Abdomen, Obese Edema: LLE: 4+ (LYMPHEDEMA), RLE: 4+ (LYMPHEDEMA) Neurological: Yes: Alert Psychiatric: Yes: Alert Labs: CBC, BMP 12/06/16 06:00 12/05/16 09:50 REST REVIEWED Imaging - Results Chest X-ray: Report Reviewed, Image Reviewed Cat Scan: Report Reviewed, Image Reviewed Assessment/Plan PULMONARY NODULES LIKELY RELATED TO UNDERLYING STAGE 4 METASTATIC OVARIAN CA WHICH HAS BEEN RESPONDING TO CHEMOTX DISCUSSED WITH DR TREJO REGARDING PURSUING DIAGNOSTIC PROCEDURE HOWEVER, THIS WOULD LIKELY NOT CHANGE CHEMO MANAGEMENT WILL CONTINUE TO MONITOR FOR NOW. WILL FOLLOW Amy SULLIVAN MD
[2016-12-06] MEDS ORDERED: TBO-FILGRASTIM 480 MCG/0.8 ML DISP.SYRIN SQ SCH (13:00)
[2016-12-06 14:16] VITALS: BP 120/58; PULSE 81; TEMP 97.5
--- NOTE | 2016-12-06 14:20 | PN ---
Progress Note (short form) - Note Progress Note: Pt receiving 3 rd transfusion looks better today was seen by Pulmonary Vital Signs - 24 hr 12/05/16 12/05/16 12/05/16 16:30 17:57 21:50 Temperature 97.8 F Pulse Rate 87 123 H Respiratory 20 20 Rate Blood Pressure 132/76 O2 Sat by Pulse 97 96 Oximetry (%) 12/05/16 12/06/16 12/06/16 22:00 06:07 09:00 Temperature 98.1 F 97.7 F 97.8 F Pulse Rate 86 87 Respiratory 18 18 20 Rate Blood Pressure 130/72 117/60 150/70 O2 Sat by Pulse 98 Oximetry (%) 12/06/16 14:08 Temperature 97.5 F L Pulse Rate 81 Respiratory 20 Rate Blood Pressure 120/58 O2 Sat by Pulse Oximetry (%) Current Medications Generic Name Dose Route Start Last Admin Trade Name Freq PRN Reason Stop Dose Admin Atorvastatin Calcium 20 mg 12/05/16 22:00 12/05/16 21:56 Lipitor - PO Not Given HS VIRGILIO Bumetanide 1 mg 12/05/16 14:30 12/06/16 06:31 Bumex - PO Not Given BID@0600,1400 VIRGILIO Diltiazem HCl 300 mg 12/06/16 10:00 12/06/16 09:21 Cardizem Cd - PO 300 mg DAILY VIRGILIO Administration Gabapentin 300 mg 12/05/16 22:00 12/06/16 06:32 Neurontin - PO Not Given TID VIRGILIO Glipizide 5 mg 12/06/16 07:00 12/06/16 06:32 Glucotrol - PO 5 mg ACBK VIRGILIO Administration Insulin Aspart 1 vial 12/05/16 16:30 12/06/16 12:14 Novolog Vial Sliding Scale - SQ 2 units TIDAC VIRGILIO Administration Protocol Levothyroxine Sodium 75 mcg 12/06/16 07:00 12/06/16 06:36 Synthroid - PO 75 mcg ACBK VIRGILIO Administration Metformin HCl 500 mg 12/05/16 16:30 12/06/16 06:32 Glucophage - PO 500 mg BIDI VIRGILIO Administration [place]-8-Nmdd Ethyl Esters 1 gm 12/05/16 22:00 12/06/16 06:32 Lovaza - PO 1 gm TID VIRGILIO Administration Ranitidine HCl 150 mg 12/05/16 22:00 12/06/16 09:21 Zantac - PO 150 mg BID [facility] Administration Tbo-Filgrastim 480 mcg 12/06/16 13:00 Granix - SQ DAILY [facility] Warfarin Sodium 3 mg 12/05/16 21:45 12/05/16 21:53 Coumadin - PO 3 mg DAILY@1800 [facility] Administration Laboratory Results - last 24 hr 12/05/16 12/05/16 12/05/16 09:50 14:30 15:30 WBC 3.4 L D RBC 2.81 L Hgb 8.0 L D Hct 24.2 L MCV 85.9 MCH 28.4 MCHC 33.0 RDW 28.5 H Plt Count 129 L MPV 8.5 Neutrophils % 61.1 Lymphocytes % 28.6 Monocytes % 9.2 Eosinophils % 0.3 Basophils % 0.8 Hypochromia 3+ Anisocytosis 3+ Microcytosis 2+ Tear Drop Cells 1+ INR 2.24 H POC Glucometer Blood Type O NEGATIVE Antibody Screen Negative Crossmatch See Detail Spec Expiration Date 12/05/16 12/06/16 12/06/16 17:45 06:00 06:00 WBC 2.4 L RBC 3.10 L Hgb 8.9 L D Hct 26.5 L MCV 85.6 MCH 28.7 MCHC 33.5 RDW 25.4 H Plt Count 126 L MPV 9.9 D Neutrophils % Lymphocytes % Monocytes % Eosinophils % Basophils % Hypochromia Anisocytosis Microcytosis Tear Drop Cells INR 1.95 H POC Glucometer 236 Blood Type Antibody Screen Crossmatch Spec Expiration Date 12/06/16 12/06/16 06:22 11:55 WBC RBC Hgb Hct MCV MCH MCHC RDW Plt Count MPV Neutrophils % Lymphocytes % Monocytes % Eosinophils % Basophils % Hypochromia Anisocytosis Microcytosis Tear Drop Cells INR POC Glucometer 219 172 Blood Type Antibody Screen Crossmatch Spec Expiration Date S12 S2 Irregular Lungs-- decreased at left PLAN -- s/p chemo -- will receive Granix today --INR-- 1.9-- advised to take 4mg tonight --will be discharged home today after blood transfusion Problem List - Problems (1) A-fib Code(s): I48.91 - UNSPECIFIED ATRIAL FIBRILLATION Qualifiers: Atrial fibrillation type: chronic Qualified Code(s): I48.2 - Chronic atrial fibrillation (2) Lymphedema Code(s): I89.0 - LYMPHEDEMA, NOT ELSEWHERE CLASSIFIED (3) Cancer of ovary Code(s): C56.9 - MALIGNANT NEOPLASM OF UNSPECIFIED OVARY Qualifiers: (4) Congestive heart failure Code(s): I50.9 - HEART FAILURE, UNSPECIFIED Qualifiers: Congestive heart failure type: combined Congestive heart failure chronicity: chronic Qualified Code(s): I50.42 - Chronic combined systolic (congestive) and diastolic (congestive) heart failure (5) Diabetes Code(s): E11.9 - TYPE 2 DIABETES MELLITUS WITHOUT COMPLICATIONS Qualifiers: Diabetes mellitus type: type 2 Diabetes mellitus complication status: without complication (6) HTN (hypertension) Code(s): I10 - ESSENTIAL (PRIMARY) HYPERTENSION Qualifiers: Hypertension type: essential hypertension Qualified Code(s): I10 - Essential (primary) hypertension (7) Morbidly obese Code(s): E66.01 - MORBID (SEVERE) OBESITY DUE TO EXCESS CALORIES (8) SOB (shortness of breath) Code(s): R06.02 - SHORTNESS OF BREATH (9) Anemia Code(s): D64.9 - ANEMIA, UNSPECIFIED
--- NOTE | 2016-12-06 16:35 | DS ---
Physical Examination Vital Signs: Vital Signs Temperature 97.5 F L 12/06/16 14:08 Pulse Rate 81 12/06/16 14:08 Respiratory Rate 20 12/06/16 14:08 Blood Pressure 120/58 12/06/16 14:08 O2 Sat by Pulse Oximetry (%) 98 12/06/16 09:00 Labs: CBC, BMP 12/06/16 06:00 12/05/16 09:50 Discharge Summary Reason For Visit: MALIGNANT NEOPLASM OF UNSPECIFIED OVARY Current Active Problems A-fib (Acute) Acute renal insufficiency (Acute) Anemia (Acute) Cellulitis (Acute) Neutropenia (Acute) SOB (shortness of breath) (Acute) Supratherapeutic INR (Acute) Hypothyroid (Chronic) Lymphedema (Chronic) Hospital Course: see progress note Condition: Improved - Instructions Disposition: HOME - Home Medications Comprehensive Discharge Medication List: Ambulatory Orders Levothyroxine [Synthroid -] 75 mcg PO DAILY 10/17/12 Loratadine [Claritin -] 10 mg PO DAILY 10/17/12 Metformin HCl [Glucophage] 500 mg PO BID 10/17/12 [place]-3 Acid Ethyl Esters [Lovaza -] 1,000 mg PO TID 10/17/12 Simvastatin [Zocor -] 40 mg PO HS 10/17/12 Insulin (Novolog) [Novolog Flexpen -] See Protocol SQ ACHS #1 pen 10/03/16 Ranitidine [Zantac -] 150 mg PO BID #30 tab 10/03/16 Insulin Aspart [Novolog Flexpen] 35 unit SQ BID 10/14/16 Gabapentin [Neurontin] 300 mg PO TID 10/24/16 Potassium Chloride 10 meq PO DAILY 10/24/16 Umeclidinium [place] [Incruse Ellipta] 1 puff IH DAILY 10/24/16 Bumetanide [Bumex -] 1 mg PO BID 10/25/16 Diltiazem Cd [Cardizem Cd -] 300 mg PO DAILY 10/25/16 Amox-Tr/K Cl [Augmentin 875-125mg Tablet -] 1 tab PO BID@0800,1730 #10 tablet Glipizide 5 mg PO DAILY #60 tablet 10/31/16 Warfarin Na [Coumadin -] 3 mg PO DAILY #60 tablet 10/31/16 Bacitracin 14 gm TP BID #1 oint...g. 12/06/16
[2016-12-06] MEDS ORDERED: WARFARIN NA 3 MG TABLET PO SCH (18:00)
== END 2016-12-06 17:30 | disposition home or self-care (01) ==
LOC: JONCCHEMO 07:57 → J7W 11:41 → JONCCHEMO 12-06 17:30
PROVIDERS: ATTEND Internal Medicine Hematology & Oncology
DX: Z51.11 Encounter for antineoplastic chemotherapy (principal); C56.9 Malignant neoplasm of unspecified ovary
CPT/HCPCS: 36415; 36430; 71250-TC; 80053; 80076; 83735; 85025; 85027; 85610; 86850; 86900; 86901; 86922; 94761; 96361; 96367; 96375; 96413; 96417; J1447; J2469; P9038; P9058

== ENCOUNTER 2016-12-12 07:44 | Day surgery (SDC) | payer OTHER ==
[2016-12-12] MEDS ORDERED: PALONOSETRON HCL 0.25 MG in SODIUM CHLORIDE 50 ML IVPB ONE (10:00)
[2016-12-12] MEDS ORDERED: SODIUM CHLORIDE 250 ML IV ONE (10:00)
[2016-12-12] MEDS ORDERED: SODIUM CHLORIDE IVPB ONE ×2 (10:00→15:30)
[2016-12-12] MEDS ORDERED: RANITIDINE IVPB ONE (10:00)
[2016-12-12] MEDS ORDERED: DEXAMETHASONE INJECTION 10 MG in SODIUM CHLORIDE 50 ML IVPB ONE (10:00)
[2016-12-12] MEDS ORDERED: DIPHENHYDRAMINE IVPB ONE (10:00)
[2016-12-12] MEDS ORDERED: PACLITAXEL 126 MG in SODIUM CHLORIDE 250 ML IVPB ONE (10:30)
--- NOTE | 2016-12-12 11:59 | PN ---
Progress Note (short form) - Note Progress Note: Pt examined by me in outpt clinic Here for chemo infusion Daughter with her Pt states she is more tired and SOB she is not diuresing as much on Lasix PO 40mg O/E Tired S1 S2 Irregular Lungs decreased breath sounds on left Abd- soft, obese, NT Edema++ Laboratory Results - last 24 hr 12/12/16 10:50 WBC 4.8 D RBC 3.27 L Hgb 9.6 L Hct 29.5 L MCV 90.3 MCH 29.3 MCHC 32.5 RDW 26.8 H Plt Count 134 MPV 9.3 Neutrophils % 60.0 Lymphocytes % 27.1 Monocytes % 12.1 H Eosinophils % 0.3 Basophils % 0.5 INR and BMP pending A/P Metastatic ovarian CA Afib Diabetes -- check BMP and INR -- check Echo -- most likely fatigue and SOB is a combination of tumor burden along with chemotherapy-- explained to the pt and daughter -- check Pre and Post ambulatory O2 sat if she needs O2 at home -- pt will be getting chemo infusion today-- no blood transfusion for now -- continue with meds
[2016-12-12 12:04] LABS: BASOPHIL 0.5 % (0-2.0); EOSINOPHIL 0.3 % (0-4.5); MCH 29.3 pg (25.7-33.7); MCHC 32.5 g/dl (32.0-36.0); MEAN CELL VOLUME 90.3 fl (80-96); MEAN PLT VOLUME 9.3 fl (7.5-11.1); PLATELET COUNT 134 K/MM3 (134-434); RDW 26.8 % (11.6-15.6); WHITE BLOOD COUNT 4.8 K/mm3 (4.0-10.0)
[2016-12-12 12:26] LABS: INR 1.82 (0.82-1.09); PROTHROMBIN TIME (PATIENT) 20.3 SEC (9.98-11.88)
[2016-12-12 12:31] LABS: ALBUMIN 3.2 g/dl (3.4-5.0); ALK PHOS 117 U/L (45-117); ANION GAP 10 (8-16); BILIRUBIN,DIRECT 0.3 mg/dL (0.0-0.2); BILIRUBIN,TOTAL 0.9 mg/dL (0.2-1.0); CO2 29 mmol/L (21-32); CREATININE 0.8 mg/dL (0.55-1.02); GLUCOSE,RANDOM 140 mg/dL (74-106); SGOT/AST 19 U/L (15-37); SGPT/ALT 16 U/L (12-78); TOT PROT 6.7 g/dl (6.4-8.2)
[2016-12-12 13:03] LABS: ANISOCYTOSIS 3+; PLATELET ESTIMATE ADEQUATE (NORMAL)
[2016-12-12 13:04] LABS: OVALOCYTE FEW; POLYCHROMASIA 1+
[2016-12-12 13:22] VITALS: TEMP 98.4
[2016-12-12] MEDS ORDERED: POTASSIUM CHLORIDE TABS 20 MEQ TABLET.ER (FP) PO ONE (13:30)
[2016-12-12] MEDS ORDERED: PORTA CATH FLUSH 10 ML IVPUSH ONE (13:37)
[2016-12-12] MEDS ORDERED: CARBOPLATIN IVPB ONE (15:30)
[2016-12-12 18:01] VITALS: BP 101/70
[2016-12-12 18:05] VITALS: PULSE 84
== END 2016-12-12 18:22 | disposition home or self-care (01) ==
LOC: JONCCHEMO 07:44 → J7W 11:45 → JONCCHEMO 18:22
PROVIDERS: ATTEND Internal Medicine Hematology & Oncology
DX: Z51.11 Encounter for antineoplastic chemotherapy (principal); C56.9 Malignant neoplasm of unspecified ovary
CPT/HCPCS: 36415; 80048; 80076; 85025; 85610; 94761; 96361; 96367; 96375; 96413; 96417; J2469

== ENCOUNTER 2016-12-19 07:47 | Day surgery (SDC) | payer OTHER ==
[2016-12-19] MEDS ORDERED: DIPHENHYDRAMINE IVPB ONE (10:00)
[2016-12-19] MEDS ORDERED: SODIUM CHLORIDE 250 ML IV ONE (10:00)
[2016-12-19] MEDS ORDERED: PALONOSETRON HCL 0.25 MG in SODIUM CHLORIDE 50 ML IVPB ONE (10:00)
[2016-12-19] MEDS ORDERED: DEXAMETHASONE INJECTION 10 MG in SODIUM CHLORIDE 50 ML IVPB ONE (10:00)
[2016-12-19] MEDS ORDERED: SODIUM CHLORIDE IVPB ONE ×2 (10:00→15:00)
[2016-12-19] MEDS ORDERED: RANITIDINE IVPB ONE (10:00)
[2016-12-19 10:22] LABS: MCH 30.3 pg (25.7-33.7); MCHC 33.2 g/dl (32.0-36.0); MEAN CELL VOLUME 91.3 fl (80-96); MEAN PLT VOLUME 8.7 fl (7.5-11.1); PLATELET COUNT 188 K/MM3 (134-434); RDW 28.6 % (11.6-15.6); WHITE BLOOD COUNT 6.6 K/mm3 (4.0-10.0)
[2016-12-19] MEDS ORDERED: PACLITAXEL 126 MG in SODIUM CHLORIDE 250 ML IVPB ONE (10:30)
[2016-12-19 10:54] LABS: ALBUMIN 3.4 g/dl (3.4-5.0); BILIRUBIN,DIRECT 0.3 mg/dL (0.0-0.2); CALCIUM 9.7 mg/dL (8.5-10.1); CO2 30 mmol/L (21-32); CREATININE 0.9 mg/dL (0.55-1.02); GLUCOSE,RANDOM 127 mg/dL (74-106); MAGNESIUM 1.8 mg/dL (1.8-2.4); SGOT/AST 22 U/L (15-37); SGPT/ALT 17 U/L (12-78); TOT PROT 7.2 g/dl (6.4-8.2)
[2016-12-19 11:01] LABS: ALK PHOS 125 U/L (45-117)
[2016-12-19 11:13] LABS: MYELOCYTE 1 % (0-2); POLYCHROMASIA 1+; TOTAL CELLS COUNTED 100
[2016-12-19 11:14] LABS: ANISOCYTOSIS 4+; MACROCYTOSIS 2+; MICROCYTOSIS 2+; OVALOCYTE 2+; POIKILOCYTOSIS 2+; TEAR DROP CELLS 2+
[2016-12-19 12:08] LABS: ANION GAP 11 (8-16)
[2016-12-19] MEDS ORDERED: guaiFENesin/D-METHORPHAN HB 10 ML UNIT-DOSE CUPS PO PRN (12:14)
[2016-12-19] MEDS ORDERED: CARBOPLATIN IVPB ONE (15:00)
[2016-12-19] MEDS ORDERED: ACETAMINOPHEN 325 MG TABLET (FP) PO ONE (15:15)
[2016-12-19] MEDS ORDERED: ALBUTEROL SO4 2.5/IPRATROPIUM 0.5 INH SOL 3 ML VIAL.NEB. NEB ONE (15:45)
--- NOTE | 2016-12-19 16:19 | PN ---
Progress Note (short form) - Note Progress Note: PULMONARY CONSULTATION DICTATED 12/19/16 IMP DYSPNEA LIKELY SECONDARY TO MULTIPLE FACTORS DECONDITIONING SECONDARY TO CHEMO/CA COPD/ASTHMA METASTATIC OVARIAN CA LEFT PLEURAL EFFUSION S/P PLEUR-X AFIB PLAN O2 PRN INHALED BRONCHODILATORS PRN MONITOR H+H DUPLEX LOWER EXT AC DR KATE Problem List - Problems (1) A-fib Code(s): I48.91 - UNSPECIFIED ATRIAL FIBRILLATION Qualifiers: (2) Lymphedema Code(s): I89.0 - LYMPHEDEMA, NOT ELSEWHERE CLASSIFIED (3) Acute dyspnea Code(s): R06.00 - DYSPNEA, UNSPECIFIED (4) Anemia Code(s): D64.9 - ANEMIA, UNSPECIFIED (5) Anxiety and depression Code(s): F41.9 - ANXIETY DISORDER, UNSPECIFIED F32.9 - MAJOR DEPRESSIVE DISORDER, SINGLE EPISODE, UNSPECIFIED (6) Cancer of ovary Code(s): C56.9 - MALIGNANT NEOPLASM OF UNSPECIFIED OVARY Qualifiers: (7) HTN (hypertension) Code(s): I10 - ESSENTIAL (PRIMARY) HYPERTENSION Qualifiers: (8) Morbidly obese Code(s): E66.01 - MORBID (SEVERE) OBESITY DUE TO EXCESS CALORIES (9) Pulmonary nodules/lesions, multiple Code(s): R91.8 - OTHER NONSPECIFIC ABNORMAL FINDING OF LUNG FIELD (10) SOB (shortness of breath) Code(s): R06.02 - SHORTNESS OF BREATH
--- NOTE | 2016-12-19 17:11 | CONS ---
PULMONARY CONSULTATION DATE OF CONSULTATION: 12/19/2016 REFERRING PHYSICIAN: Angela Starkey MD HISTORY OF PRESENT ILLNESS: The patient is a 61-year-old white female known to me in previous hospitalization with past medical history of recently diagnosed metastatic ovarian carcinoma, extensive metastases to the lung, currently on chemotherapy; history of left pleural effusion, malignant, status post PleurX drainage; hypertension; atrial fibrillation; congestive heart failure; COPD; asthma; diabetes; GERD; hypothyroidism; is a nonsmoker, admitted to [facility] for chemotherapy. Patient states that for the past few weeks or so, she started noticing increasing shortness of breath and dyspnea on exertion. Denies any chest pain or palpitations. Denies any nausea, vomiting, or diaphoresis. Patient denies any chronic cough or hemoptysis. Patient also states she has bene very depressed about her diagnosis. PAST MEDICAL HISTORY: Again includes metastatic ovarian carcinoma with extensive pulmonary metastases; malignant pleural effusion status post PleurX catheter; hypertension; COPD; asthma; congestive heart failure. SOCIAL HISTORY: Nonsmoker. No occupational exposures. CURRENT MEDICATIONS: Include Robitussin, carboplatin, steroids, palonosetron, DuoNeb, and paclitaxel. REVIEW OF SYSTEMS: Positive orthopnea. Positive dyspnea. No chest pain. No palpitations. No cough. No hemoptysis. No abdominal pain. Positive increasing lower extremity edema. PHYSICAL EXAMINATION: General: The patient is an obese female, well developed, awake, alert, in no acute respiratory distress. Vital Signs: She is currently afebrile. Blood pressure is 110/60. Respiratory rate is 20. O2 saturation is 99% on room air. HEENT: Normocephalic, atraumatic. Neck: Supple. Heart: Irregular with normal S1, S2. Chest: Clear. Abdomen: Soft. Bowel sounds are present. Extremities: Bilateral lower extremity edema and chronic stasis changes bilaterally. DIAGNOSTIC DATA: WBC is 6.6, hemoglobin 9.5, hematocrit 28.6, with a platelet count of 188,000. INR is 1.82. BUN is 9, creatinine 0.9. Echocardiogram revealed left atrium mildly dilated, normal LV function, and normal LV size. No evidence of significant pulmonary hypertension. IMPRESSION: 1. Increasing dyspnea secondary to poor conditioning secondary to recent diagnosis and chemotherapy. 2. History of chronic obstructive pulmonary disease and asthma. 3. History of congestive heart failure. 4. Atrial fibrillation. 5. Obesity. 6. History of left pleural effusion status post PleurX. PLAN: Inhaled bronchodilators, supplemental O2 p.r.n., check O2 saturation at rest and post exercise to determine whether the patient requires O2. Continue chemotherapy as per Oncology. Monitor hemoglobin and hematocrit. Continue anticoagulation. MARIBELL KATE M.D. SARINA/[id number]
[2016-12-19 19:23] VITALS: TEMP 97.7
[2016-12-19] MEDS ORDERED: PORTA CATH FLUSH 10 ML IVPUSH ONE (19:23)
[2016-12-19 19:28] VITALS: BP 126/72
[2016-12-19 19:31] VITALS: PULSE 90
== END 2016-12-19 19:39 | disposition home or self-care (01) ==
LOC: JONCCHEMO 07:47 → J7W 12:09 → JONCCHEMO 19:39
PROVIDERS: ATTEND Internal Medicine Hematology & Oncology
DX: Z51.11 Encounter for antineoplastic chemotherapy (principal); C56.9 Malignant neoplasm of unspecified ovary
CPT/HCPCS: 36415; 80053; 80076; 83735; 85025; 94640; 94761; 96361; 96375; 96413; 96417; J2469

== ENCOUNTER 2016-12-26 07:16 | Day surgery (SDC) | payer OTHER ==
[2016-12-26] MEDS ORDERED: SODIUM CHLORIDE 250 ML IV ONE (08:00)
[2016-12-26] MEDS ORDERED: RANITIDINE INJECTION 50 MG, DIPHENHYDRAMINE 50 MG in SODIUM CHLORIDE 100 ML IVPB ONE (08:30)
[2016-12-26] MEDS ORDERED: DEXAMETHASONE INJECTION 10 MG in SODIUM CHLORIDE 50 ML IVPB ONE (08:30)
[2016-12-26] MEDS ORDERED: PALONOSETRON HCL 0.25 MG in SODIUM CHLORIDE 50 ML IVPB ONE (08:30)
[2016-12-26] MEDS ORDERED: PACLITAXEL 126 MG in SODIUM CHLORIDE 250 ML IVPB ONE (09:00)
[2016-12-26] MEDS ORDERED: CARBOPLATIN IVPB ONE (10:00)
[2016-12-26] MEDS ORDERED: SODIUM CHLORIDE IVPB ONE (10:00)
[2016-12-26 11:34] LABS: MCH 30.7 pg (25.7-33.7); MCHC 33.6 g/dl (32.0-36.0); MEAN CELL VOLUME 91.2 fl (80-96); MEAN PLT VOLUME 8.9 fl (7.5-11.1); PLATELET COUNT 220 K/MM3 (134-434); RDW 29.4 % (11.6-15.6); WHITE BLOOD COUNT 7.9 K/mm3 (4.0-10.0)
[2016-12-26 12:03] LABS: ALBUMIN 3.5 g/dl (3.4-5.0); BILIRUBIN,DIRECT 0.3 mg/dL (0.0-0.2); SGOT/AST 22 U/L (15-37); SGPT/ALT 15 U/L (12-78)
[2016-12-26 12:05] LABS: ALK PHOS 118 U/L (45-117); BILIRUBIN,TOTAL 0.9 mg/dL (0.2-1.0); TOT PROT 7.1 g/dl (6.4-8.2)
[2016-12-26 12:52] LABS: ANION GAP 13 (8-16); CALCIUM 9.5 mg/dL (8.5-10.1); CO2 29 mmol/L (21-32); CREATININE 0.8 mg/dL (0.55-1.02); GLUCOSE,RANDOM 135 mg/dL (74-106)
[2016-12-26] MEDS ORDERED: POTASSIUM CHLORIDE ORAL LIQUID 20 MEQ/15 ML PO ONE (13:45)
[2016-12-26 14:16] LABS: FERRITIN 893.217 ng/ml (6.9-282.5)
[2016-12-26] MEDS ORDERED: PORTA CATH FLUSH 10 ML IVPUSH ONE ×2 (14:48→16:59)
[2016-12-26] MEDS ORDERED: WARFARIN NA 3 MG TABLET PO ONE ×2 (21:17→23:45)
[2016-12-26] MEDS ORDERED: INSULIN (NOVOLOG) ASPART 100 UNITS/ML 10ML VIAL SQ ONE (21:18)
[2016-12-26] MEDS ORDERED: ACETAMINOPHEN 325 MG TABLET (FP) PO PRN (23:17)
[2016-12-26] MEDS ORDERED: guaiFENesin/CODEINE 5 ML UNIT-DOSE CUPS PO PRN (23:17)
[2016-12-26] MEDS ORDERED: MONTELUKAST NA 10 MG TABLET PO SCH (23:45)
[2016-12-26] MEDS: INSULIN (NOVOLOG MIX 70/30) 100 UNITS/ML MDV SQ SCH (23:54)
[2016-12-27] MEDS: CEFUROXIME AXETIL 500 MG TABLET PO SCH ×2 (01:09→10:31)
[2016-12-27] MEDS: metFORMIN HCL 500 MG TABLET (FP) PO SCH ×2 (06:02→17:31)
[2016-12-27] MEDS: INSULIN SLIDING SCALE (NOVOLOG) 1 VIAL SQ SCH ×3 (06:03→17:33)
[2016-12-27] MEDS: OMEGA-3 ACID ETHYL ESTERS (FATTY-ACIDS) 1 GM CAPSULE (FP) PO SCH ×2 (06:48→14:18)
[2016-12-27] MEDS: INSULIN (NOVOLOG MIX 70/30) 100 UNITS/ML MDV SQ SCH ×3 (06:49→17:36)
[2016-12-27] MEDS ORDERED: INSULIN (NOVOLOG MIX 70/30) 100 UNITS/ML MDV SQ ONE (06:54)
[2016-12-27] MEDS ORDERED: glipiZIDE 5 MG TABLET (FP) PO SCH (07:00)
[2016-12-27] MEDS ORDERED: LEVOTHYROXINE NA 75 MCG TABLET (FP) PO SCH (07:00)
[2016-12-27 07:50] LABS: MCH 30.9 pg (25.7-33.7); MCHC 33.8 g/dl (32.0-36.0); MEAN CELL VOLUME 91.4 fl (80-96); MEAN PLT VOLUME 9.6 fl (7.5-11.1); PLATELET COUNT 213 K/MM3 (134-434); RDW 27.7 % (11.6-15.6)
[2016-12-27 08:07] LABS: SERUM IRON 49 ug/dL (27-139); TOTAL IRON BINDING CAPACITY 274 ug/dL (250-450); UIBC 225 ug/dL (118-369)
[2016-12-27 08:20] LABS: INR 3.78 (0.82-1.09); PROTHROMBIN TIME (PATIENT) 42.7 SEC (9.98-11.88)
[2016-12-27 08:24] LABS: ACTIVATED PTT 38.5 SECONDS (26.9-34.4)
[2016-12-27 08:41] LABS: ALBUMIN 3.3 g/dl (3.4-5.0); ALK PHOS 117 U/L (45-117); ANION GAP 12 (8-16); CALCIUM 9.1 mg/dL (8.5-10.1); CO2 25 mmol/L (21-32); CREATININE 0.8 mg/dL (0.55-1.02); GLUCOSE,RANDOM 177 mg/dL (74-106); SGOT/AST 32 U/L (15-37); SGPT/ALT 18 U/L (12-78); TOT PROT 7.1 g/dl (6.4-8.2)
[2016-12-27 08:56] LABS: PLATELET ESTIMATE ADEQUATE (NORMAL)
[2016-12-27 09:01] LABS: METAMYELOCYTE 4 % (0-2); MYELOCYTE 8 % (0-2); TOTAL CELLS COUNTED 100
[2016-12-27 09:02] LABS: NUCLEATED RED BLOOD CELL 2 % (0-0); POLYCHROMASIA 2+
[2016-12-27 09:03] LABS: ANISOCYTOSIS 4+; MACROCYTOSIS 2+; MICROCYTOSIS 2+; OVALOCYTE 1+; TEAR DROP CELLS 1+
--- NOTE | 2016-12-27 09:10 | PN ---
Progress Note (short form) - Note Progress Note: patient stayed overnight as could not finish treatment yesterday I was called by the nursing staff Patient seen today Comfortable No distress Vital Signs Temp 97.8 F 12/27/16 08:32 Pulse 104 H 12/27/16 08:32 Resp 20 12/27/16 08:32 BP 124/68 12/27/16 08:32 Pulse Ox 97 12/26/16 21:00 Intake & Output 12/26/16 12/26/16 12/27/16 11:59 23:59 11:59 Intake Total 750 800 Balance 750 800 Weight 343 lb 12.8 oz 343 lb Intake: IV 750 IVPB 100 Oral 350 Packed Cells 350 Other: Voiding Method Toilet # Unmeasured Voids Void 1 Height 5 ft 2 in Active Medications Acetaminophen (Tylenol -) 650 mg PO Q6H PRN PRN Reason: FEVER OR PAIN Aclidinium [place] (Tudorza -) 1 puff IH BID [facility] Cefuroxime Axetil (Ceftin -) 500 mg PO BID [facility] Last Admin: 12/27/16 01:09 Dose: 500 mg Diltiazem HCl (Cardizem Cd -) 300 mg PO DAILY [facility] Glipizide (Glucotrol -) 5 mg PO DAILY@0700 [facility] Last Admin: 12/27/16 06:02 Dose: 5 mg Guaifenesin/Codeine Phosphate (Robitussin Ac -) 5 ml PO Q6H PRN Last Admin: 12/26/16 23:48 Dose: 5 ml Insulin Aspart (Novolog Mix 70/30 Vial) 35 units SQ BIDI [facility] Last Admin: 12/27/16 06:49 Dose: 35 unit Insulin Aspart (Novolog Vial Sliding Scale -) 1 vial SQ ACHS [facility] PRN Reason: Protocol Last Admin: 12/27/16 06:03 Dose: Not Given Levothyroxine Sodium (Synthroid -) 75 mcg PO DAILY@0700 [facility] Last Admin: 12/27/16 06:02 Dose: 75 mcg Loratadine (Claritin -) 10 mg PO DAILY [facility] Metformin HCl (Glucophage -) 500 mg PO BIDAC [facility] Last Admin: 12/27/16 06:02 Dose: 500 mg Montelukast Sodium (Singulair -) 10 mg PO HS [facility] Last Admin: 12/26/16 23:49 Dose: 10 mg Sggrb-1-Wjjk Ethyl Esters (Lovaza -) 1 gm PO TID [facility] Last Admin: 12/27/16 06:48 Dose: 1 gm Ranitidine HCl (Zantac -) 150 mg PO BID VIRGILIO CBC, BMP 12/27/16 07:24 INR, PTT INR 3.78 (0.82-1.09) H D 12/27/16 07:24 Physical exam comfortably sitting in the chair Lungs--diminished at bases CVS--S1 and S2 regular Abdomen--soft/obese Extremities--trace edema assessment and plan Clinically stable INR is supratherapeutic Patient currently taking 5 mg dose Advised to hold for 1 day and then decrease dose to 4 mg. will be going home today. Problem List - Problems (1) A-fib Code(s): I48.91 - UNSPECIFIED ATRIAL FIBRILLATION Qualifiers: (2) Supratherapeutic INR Code(s): R79.1 - ABNORMAL COAGULATION PROFILE (3) Cancer of ovary Code(s): C56.9 - MALIGNANT NEOPLASM OF UNSPECIFIED OVARY Qualifiers: (4) HTN (hypertension) Code(s): I10 - ESSENTIAL (PRIMARY) HYPERTENSION Qualifiers: (5) Morbidly obese Code(s): E66.01 - MORBID (SEVERE) OBESITY DUE TO EXCESS CALORIES
[2016-12-27] MEDS ORDERED: PT OWN MED DRAWER 7, Y5N ONE ×2 (09:53→14:36)
[2016-12-27] MEDS ORDERED: ACLIDINIUM BROMIDE 400 MCG/INH AERO.POWD IH SCH (10:00)
[2016-12-27] MEDS ORDERED: RANITIDINE HCL 150 MG TABLET (FP) PO SCH (10:00)
[2016-12-27] MEDS ORDERED: LORATADINE 10 MG TABLET PO SCH (10:00)
[2016-12-27 15:45] VITALS: BP 137/86; PULSE 92; TEMP 97.3
--- NOTE | 2016-12-27 17:39 | PN ---
Progress Note (short form) - Note Progress Note: Patient seen and examined Feels well Denies any symptoms Last Vital Signs Temp Pulse Resp BP Pulse Ox 97.3 F L 92 H 20 137/86 97 12/27/16 15:44 12/27/16 15:44 12/27/16 15:44 12/27/16 15:44 12/27/16 09:00 Cor: RSR, No murmurs, No gallops Lungs: Clear to P&A Abd: Soft, Normal bowel sounds, No organomegaly Ext:No significant edema Skin: No rashes, Integument intact Abnormal Lab Results 12/26/16 12/26/16 12/27/16 11:29 11:29 07:24 RBC 3.17 L Hgb 9.8 L Hct 29.0 L RDW 27.7 H Myelocytes % (Man) 8 H D Nucleated RBC % 2 H INR PTT (Actin FS) Random Glucose Albumin CA 125 Antigen 260.7 H Crossmatch See Detail 12/27/16 12/27/16 07:24 07:24 RBC Hgb Hct RDW Myelocytes % (Man) Nucleated RBC % INR 3.78 H D PTT (Actin FS) 38.5 H Random Glucose 177 H D Albumin 3.3 L CA 125 Antigen Crossmatch Home Medication List Medication Instructions Recorded Confirmed Type Levothyroxine [Synthroid -] 75 mcg PO DAILY 10/17/12 10/24/16 History Loratadine [Claritin -] 10 mg PO DAILY 10/17/12 10/24/16 History Metformin HCl [Glucophage] 500 mg PO BID 10/17/12 10/24/16 History [place]-3 Acid Ethyl Esters [Lovaza 1,000 mg PO TID 10/17/12 10/24/16 History -] Insulin Aspart [Novolog Flexpen] 35 unit SQ BID 10/14/16 10/24/16 History Potassium Chloride 10 meq PO DAILY 10/24/16 10/24/16 History Umeclidinium Jbph[facility] [Incruse 1 puff IH DAILY 10/24/16 10/24/16 History Ellipta] Bumetanide [Bumex -] 1 mg PO BID 10/25/16 10/25/16 History Diltiazem Cd [Cardizem Cd -] 300 mg PO DAILY 10/25/16 10/25/16 History Active Medications Generic Name Dose Route Start Last Admin Trade Name Freq PRN Reason Stop Dose Admin Acetaminophen 650 mg 12/26/16 23:17 Tylenol - PO Q6H PRN FEVER OR PAIN Aclidinium Jbph[facility] 1 puff 12/27/16 10:00 12/27/16 10:31 Tudorza - IH 1 puff BID VIRGILIO Administration Cefuroxime Axetil 500 mg 12/26/16 23:45 12/27/16 10:31 Ceftin - PO 500 mg BID VIRGILIO Administration Diltiazem HCl 300 mg 12/27/16 10:00 12/27/16 10:30 Cardizem Cd - PO 300 mg DAILY VIRGILIO Administration Glipizide 5 mg 12/27/16 07:00 12/27/16 06:02 Glucotrol - PO 5 mg DAILY@0700 VIRGILIO Administration Guaifenesin/Codeine Phosphate 5 ml 12/26/16 23:17 12/26/16 23:48 Robitussin Ac - PO 5 ml Q6H PRN Administration Insulin Aspart 35 units 12/26/16 23:45 12/27/16 06:49 Novolog Mix 70/30 Vial SQ 35 unit BIDI VIRGILIO Administration Insulin Aspart 1 vial 12/27/16 07:00 12/27/16 11:48 Novolog Vial Sliding Scale - SQ Not Given ACHS [facility] Protocol Levothyroxine Sodium 75 mcg 12/27/16 07:00 12/27/16 06:02 Synthroid - PO 75 mcg DAILY@0700 VIRGILIO Administration Loratadine 10 mg 12/27/16 10:00 12/27/16 10:31 Claritin - PO 10 mg DAILY VIRGILIO Administration Metformin HCl 500 mg 12/27/16 07:00 12/27/16 06:02 Glucophage - PO 500 mg BIDAC VIRGILIO Administration Montelukast Sodium 10 mg 12/26/16 23:45 12/26/16 23:49 Singulair - PO 10 mg HS VIRGILIO Administration Ivnzm-0-Dtnj Ethyl Esters 1 gm 12/27/16 06:00 12/27/16 14:18 Lovaza - PO 1 gm TID VIRGILIO Administration Ranitidine HCl 150 mg 12/27/16 10:00 12/27/16 10:31 Zantac - PO 150 mg BID VIRGILIO Administration A/P 61 y/o patient with metastatic ovarian cancer carbo/taxol now with anemia s/p 1 unit PRBCs duplex lower extremities is negative hold coumadin for 2 days and resume it at 3mg daily
== END 2016-12-27 18:45 | disposition home or self-care (01) ==
LOC: JONCCHEMO 07:16 → J7W 11:15 → JONCCHEMO 12-27 18:45
PROVIDERS: ATTEND Internal Medicine Hematology & Oncology
DX: Z51.11 Encounter for antineoplastic chemotherapy (principal); C56.9 Malignant neoplasm of unspecified ovary
CPT/HCPCS: 36415; 36430; 80048; 80053; 80076; 82728; 83540; 83550; 85025; 85610; 85730; 86304; 86850; 86900; 86901; 86922; 93970-TC; 96361; 96367; 96375; 96413; 96415; 96417; J2469; P9038; P9058

== ENCOUNTER 2017-01-02 07:26 | Inpatient (IN) | payer OTHER ==
[2017-01-02 11:31] LABS: MCH 31.6 pg (25.7-33.7); MCHC 33.5 g/dl (32.0-36.0); MEAN CELL VOLUME 94.2 fl (80-96); MEAN PLT VOLUME 9.1 fl (7.5-11.1); PLATELET COUNT 170 K/MM3 (134-434); RDW 28.5 % (11.6-15.6); WHITE BLOOD COUNT 8.7 K/mm3 (4.0-10.0)
[2017-01-02 12:00] LABS: PLATELET ESTIMATE ADEQUATE (NORMAL)
[2017-01-02 12:01] LABS: ANISOCYTOSIS 2+; BASOPHIL (MANUAL) 0 % (0-2.0); HYPOCHROMIA 1+; METAMYELOCYTE 2 % (0-2); NUCLEATED RED BLOOD CELL 1 % (0-0)
[2017-01-02 12:02] LABS: ALBUMIN 3.3 g/dl (3.4-5.0); ANION GAP 8 (8-16); BILIRUBIN,DIRECT 0.3 mg/dL (0.0-0.2); BILIRUBIN,TOTAL 0.8 mg/dL (0.2-1.0); CALCIUM 9.4 mg/dL (8.5-10.1); CO2 28 mmol/L (21-32); CREATININE 0.7 mg/dL (0.55-1.02); GLUCOSE,RANDOM 138 mg/dL (74-106); MAGNESIUM 1.5 mg/dL (1.8-2.4); SGOT/AST 25 U/L (15-37); SGPT/ALT 18 U/L (12-78); TOT PROT 6.8 g/dl (6.4-8.2)
[2017-01-02 12:03] LABS: ALK PHOS 116 U/L (45-117)
--- NOTE | 2017-01-02 13:40 | PN ---
Progress Note (short form) - Note Progress Note: ID Consult dictated Infected port Possible sepsis secondary to infected port Metastatic ovarian ca Obtain blood c/s Surgical evaluation Empiric vancomycin/ cefepime
[2017-01-02 13:42] LABS: INR 2.62 (0.82-1.09); PROTHROMBIN TIME (PATIENT) 29.4 SEC (9.98-11.88)
[2017-01-02] MEDS ORDERED: CEFEPIME HCL 1 GM VIAL (RESTRICTED TO ID) IVPB SCH (13:45)
[2017-01-02] MEDS ORDERED: SODIUM CHLORIDE 600 ML IV ONE (14:00)
--- NOTE | 2017-01-02 14:29 | CONS ---
INFECTIOUS DISEASE CONSULTATION DATE OF CONSULTATION: 01/02/2017 HISTORY OF PRESENT ILLNESS: A 61-year-old female with history of metastatic ovarian carcinoma, evaluated for infected port. The patient had a port inserted, left chest area, on September 20, 2016. She has been receiving chemotherapy through the port. She had presented for her regular cycle of chemotherapy today. She reports that over the past 24 hours, she had developed tenderness at the site and noticed erythema extending from the port site to the base of the neck. The area involved was tender to touch. She also noted some yellowish drainage from the port site itself. She denies any associated fever or chills. She was evaluated in the hospital where she was determined to have an infected port. Cultures were obtained. She denies any high-grade fever or shaking chills. She has had a history of soft tissue infections in the past involving the left breast and a PleurX tube exit site. Cultures in the past have grown Staphylococcus aureus, coagulase-negative staphylococcus, and diphtheroids. PAST MEDICAL HISTORY: Positive for metastatic ovarian carcinoma with pulmonary involvement, history of malignant effusion status post drainage, atrial fibrillation, diabetes mellitus, hypothyroidism. ALLERGIES: No known allergies. MEDICATIONS: Synthroid, Glucophage, Lovaza, NovoLog, Bumex, Cardizem. SOCIAL HISTORY: Resides at home. Non-smoker, nondrinker. SYSTEMS REVIEW: Neurologic: No loss of consciousness, seizure activity, focal weakness. Cardiac: Negative chest pain or palpitations. Respiratory: Negative cough or sputum production. Gastrointestinal: Negative vomiting or diarrhea. Genitourinary: Negative for urinary tract infection. LABORATORY DATA: White count 8.7, hematocrit 27.7, platelet count 170. BUN 9, creatinine 0.7. PHYSICAL EXAMINATION: General: She is out of bed to chair. She is not acutely toxic appearing. Vital Signs: Temperature 97.3; blood pressure 137/86; pulse 92, regular; respirations 20 per minute. HEENT: Sclerae anicteric. Positive alopecia. Heart: Sounds S1, S2. Lungs: Scattered rhonchi. Abdomen: Obese, soft, nontender. Extremities: Positive for pedal edema. Port Site: There is a 1-cm circular area of erythema at the port site itself, from which yellowish serous drainage was expressed. There is faint erythema extending from the port to the base of the neck. Area is warm and tender to touch. IMPRESSION: 1. Infected port. 2. Possible sepsis secondary to infected port. 3. Metastatic ovarian carcinoma. 4. Diabetes mellitus. Obtain blood cultures peripherally and via the port. Surgical evaluation. Empiric antibiotic coverage with vancomycin and cefepime pending cultures. We will follow. Thank you for the kind referral. DARIN OCHOA M.D. SAIDA/[id number]
[2017-01-02] MEDS ORDERED: ACETAMINOPHEN 325 MG TABLET (FP) PO PRN (14:56)
[2017-01-02] MEDS ORDERED: CEFEPIME 1 GM in DEXTROSE 5%-WATER - 100 ML IVPB ONE (15:30)
[2017-01-02] MEDS ORDERED: guaiFENesin/CODEINE 5 ML UNIT-DOSE CUPS PO PRN (15:31)
[2017-01-02] MEDS ORDERED: PT OWN MED DRAWER 7, Y5N ONE ×2 (15:45→18:19)
[2017-01-02] MEDS: guaiFENesin/CODEINE 5 ML UNIT-DOSE CUPS PO PRN (15:47)
[2017-01-02] MEDS: OMEGA-3 ACID ETHYL ESTERS (FATTY-ACIDS) 1 GM CAPSULE (FP) PO SCH ×2 (15:49→21:24)
[2017-01-02] MEDS: glipiZIDE 5 MG TABLET (FP) PO SCH (15:49)
[2017-01-02] MEDS: WARFARIN NA 3 MG TABLET PO SCH ×2 (15:49→18:11)
[2017-01-02] MEDS: VANCOMYCIN 1,000 MG in DEXTROSE 5%-WATER - 250 ML IVPB SCH (17:10)
[2017-01-02] MEDS: INSULIN SLIDING SCALE (NOVOLOG) 1 VIAL SQ SCH ×2 (18:11→21:30)
[2017-01-02] MEDS: CEFEPIME 1 GM in DEXTROSE 5%-WATER - 100 ML IVPB SCH (18:13)
[2017-01-02 18:43] VITALS: BMI 62.7
[2017-01-02] MEDS ORDERED: MAGNESIUM SULF 50% (8.12 MEQ/2 ML-1 GM VIAL) IVPB ONE (20:45)
[2017-01-02] MEDS: RANITIDINE HCL 150 MG TABLET (FP) PO SCH (21:24)
[2017-01-02] MEDS ORDERED: BUMETANIDE 1 MG TABLET PO SCH (22:00)
[2017-01-02] MEDS ORDERED: INSULIN ASPART 35 UNIT SQ SCH (22:00)
[2017-01-03] MEDS ORDERED: PT OWN MED DRAWER 7, Y5N ONE (02:00)
[2017-01-03] MEDS: CEFEPIME 1 GM in DEXTROSE 5%-WATER - 100 ML IVPB SCH (02:05)
[2017-01-03] MEDS: VANCOMYCIN 1,000 MG in DEXTROSE 5%-WATER - 250 ML IVPB SCH ×2 (02:45→14:42)
[2017-01-03] MEDS: LEVOTHYROXINE NA 75 MCG TABLET (FP) PO SCH (06:17)
[2017-01-03] MEDS: OMEGA-3 ACID ETHYL ESTERS (FATTY-ACIDS) 1 GM CAPSULE (FP) PO SCH ×3 (06:17→21:10)
[2017-01-03] MEDS: glipiZIDE 5 MG TABLET (FP) PO SCH (06:18)
[2017-01-03] MEDS: INSULIN SLIDING SCALE (NOVOLOG) 1 VIAL SQ SCH ×4 (06:18→21:09)
[2017-01-03 07:17] LABS: MCH 31.7 pg (25.7-33.7); MCHC 33.9 g/dl (32.0-36.0); MEAN CELL VOLUME 93.5 fl (80-96); MEAN PLT VOLUME 9.3 fl (7.5-11.1); PLATELET COUNT 163 K/MM3 (134-434); RDW 28.9 % (11.6-15.6)
[2017-01-03 07:43] LABS: INR 2.54 (0.82-1.09); PROTHROMBIN TIME (PATIENT) 28.5 SEC (9.98-11.88)
[2017-01-03 07:58] LABS: ALBUMIN 3.1 g/dl (3.4-5.0); ANION GAP 8 (8-16); CO2 27 mmol/L (21-32); CREATININE 0.7 mg/dL (0.55-1.02); GLUCOSE,RANDOM 118 mg/dL (74-106); SGOT/AST 25 U/L (15-37); SGPT/ALT 16 U/L (12-78)
[2017-01-03 08:00] LABS: ALK PHOS 111 U/L (45-117); BILIRUBIN,TOTAL 0.8 mg/dL (0.2-1.0); TOT PROT 6.7 g/dl (6.4-8.2)
[2017-01-03 08:58] LABS: TOTAL CELLS COUNTED 100
[2017-01-03 08:59] LABS: METAMYELOCYTE 1 % (0-2)
[2017-01-03 09:00] LABS: ANISOCYTOSIS 3+; HYPOCHROMIA 2+
[2017-01-03 09:01] LABS: MACROCYTOSIS 2+; POLYCHROMASIA 1+
[2017-01-03] MEDS ORDERED: CEFEPIME HCL 1 GM VIAL (RESTRICTED TO ID) ONE (09:54)
[2017-01-03] MEDS ORDERED: DEXTROSE 5%-WATER 100 ML IVPB ONE (09:54)
[2017-01-03] MEDS: RANITIDINE HCL 150 MG TABLET (FP) PO SCH ×2 (10:01→21:10)
[2017-01-03] MEDS: CEFEPIME 1 GM in DEXTROSE 5%-WATER 100 ML IVPB SCH ×2 (10:01→18:12)
[2017-01-03] MEDS: POTASSIUM CHLORIDE TABS 10 MEQ TABLET.ER (FP) PO SCH (10:01)
--- NOTE | 2017-01-03 11:56 | PN ---
Progress Note (short form) - Note Progress Note: 61 y.o. F with a pmh of metastatic ovarian cancer on weekly chemotherapy, malignant pleural effusions s/p left chest tube--removal--afib, diabetes , hypothyrodism--and morbid obesity -- admitted by Dr. Miller for port abscess. pt getting broad spectrum abx i/d on case -- discussed with i/d and hematology today. pt comfortable. denies pain. no distress. Vital Signs Temp 98.3 F 01/03/17 09:59 Pulse 96 H 01/03/17 09:59 Resp 18 01/03/17 09:59 BP 121/65 01/03/17 09:59 Pulse Ox Intake & Output 01/02/17 01/02/17 01/03/17 11:59 23:59 11:59 Intake Total 150 1000 Balance 150 1000 Weight 343 lb Intake: IV 400 Normal Saline - 600 ml @ 400 150 mls/hr IV ONCE ONE Rx #:[id number] IVPB 300 Oral 150 300 Other: Voiding Method Toilet Toilet Bowel Movement Yes Height 5 ft 2 in Body Mass Index (BMI) 62.7 Active Medications Acetaminophen (Tylenol -) 650 mg PO Q6H PRN PRN Reason: FEVER OR PAIN Diltiazem HCl (Cardizem Cd -) 300 mg PO DAILY [facility] Last Admin: 01/03/17 10:00 Dose: 300 mg Glipizide (Glucotrol -) 5 mg PO DAILY@0700 [facility] Last Admin: 01/03/17 06:18 Dose: 5 mg Guaifenesin/Codeine Phosphate (Robitussin Ac -) 5 ml PO QID PRN PRN Reason: COUGH Last Admin: 01/02/17 15:47 Dose: 5 ml Vancomycin HCl 1,000 mg/ (Dextrose) 250 mls @ 166.667 mls/hr IVPB Q12H [facility] Last Admin: 01/03/17 02:45 Dose: 166.667 mls/hr Cefepime HCl 1 gm/ Dextrose 100 mls @ 200 mls/hr IVPB Q8H-IV [facility] Last Admin: 01/03/17 10:01 Dose: 200 mls/hr Insulin Aspart (Novolog Vial Sliding Scale -) 1 vial SQ ACHS [facility] PRN Reason: Protocol Last Admin: 09/15/17 06:18 Dose: Not Given Levothyroxine Sodium (Synthroid -) 75 mcg PO DAILY@0700 [facility] Last Admin: 01/03/17 06:17 Dose: 75 mcg [id number]-[id number] Ethyl Esters (Lovaza -) 1 gm PO TID [facility] Last Admin: 01/03/17 06:17 Dose: 1 gm Potassium Chloride (K-Dur -) 10 meq PO DAILY [facility] Last Admin: 01/03/17 10:01 Dose: 10 meq Ranitidine HCl (Zantac -) 150 mg PO BID [facility] Last Admin: 01/03/17 10:01 Dose: 150 mg Warfarin Sodium (Coumadin -) 3 mg PO DAILY@1800 [facility] Last Admin: 01/02/17 18:11 Dose: Not Given CBC, BMP 01/03/17 06:00 01/03/17 06:00 INR, PTT INR 2.54 (0.82-1.09) H 01/03/17 06:00 Physical Exam Comfortable. sitting in bed lungs- clear-- diminished at bed side. cvs- s1, s2 irregular chest -- reddness/ tenderness + at port - chest abd- soft / non tender-- mild tenderness / reddness -- left side of abdominal wall. ext- trace edema. neuro- aox 3 a/p Cellulitis -- port abscess metastatic ovarian cancer diabetes afib. obesity hypothyrodism. Plan Abx i/d on case f/u cultures monitor bgm./ inr . will follow. Problem List - Problems (1) Cellulitis Code(s): L03.90 - CELLULITIS, UNSPECIFIED Qualifiers: Site of cellulitis: extremity Site of cellulitis of extremity: lower extremity Laterality: left Qualified Code(s): L03.116 - Cellulitis of left lower limb (2) Hypothyroid Code(s): E03.9 - HYPOTHYROIDISM, UNSPECIFIED (3) Anemia Code(s): D64.9 - ANEMIA, UNSPECIFIED (4) Diabetes Code(s): E11.9 - TYPE 2 DIABETES MELLITUS WITHOUT COMPLICATIONS Qualifiers: Diabetes mellitus type: type 2 Diabetes mellitus complication status: without complication (5) HTN (hypertension) Code(s): I10 - ESSENTIAL (PRIMARY) HYPERTENSION Qualifiers: (6) Morbidly obese Code(s): E66.01 - MORBID (SEVERE) OBESITY DUE TO EXCESS CALORIES (7) Primary cancer of ovary with widespread metastatic disease Code(s): C56.9 - MALIGNANT NEOPLASM OF UNSPECIFIED OVARY C80.0 - DISSEMINATED MALIGNANT NEOPLASM, UNSPECIFIED
--- NOTE | 2017-01-03 12:00 | PN ---
Progress Note, Physician History of Present Illness: C/O L flank pain at previous Pleurx exit site No pain at port site No fever/ chills Blood c/s pending - Current Medication List Current Medications: Active Medications Acetaminophen (Tylenol -) 650 mg PO Q6H PRN PRN Reason: FEVER OR PAIN Diltiazem HCl (Cardizem Cd -) 300 mg PO DAILY [facility] Last Admin: 01/03/17 10:00 Dose: 300 mg Glipizide (Glucotrol -) 5 mg PO DAILY@0700 [facility] Last Admin: 01/03/17 06:18 Dose: 5 mg Guaifenesin/Codeine Phosphate (Robitussin Ac -) 5 ml PO QID PRN PRN Reason: COUGH Last Admin: 01/02/17 15:47 Dose: 5 ml Vancomycin HCl 1,000 mg/ (Dextrose) 250 mls @ 166.667 mls/hr IVPB Q12H [facility] Last Admin: 01/03/17 02:45 Dose: 166.667 mls/hr Cefepime HCl 1 gm/ Dextrose 100 mls @ 200 mls/hr IVPB Q8H-IV [facility] Last Admin: 01/03/17 10:01 Dose: 200 mls/hr Insulin Aspart (Novolog Vial Sliding Scale -) 1 vial SQ ACHS [facility] PRN Reason: Protocol Last Admin: 01/03/17 06:18 Dose: Not Given Levothyroxine Sodium (Synthroid -) 75 mcg PO DAILY@0700 [facility] Last Admin: 01/03/17 06:17 Dose: 75 mcg Ggzjp-[id number] Ethyl Esters (Lovaza -) 1 gm PO TID [facility] Last Admin: 01/03/17 06:17 Dose: 1 gm Potassium Chloride (K-Dur -) 10 meq PO DAILY [facility] Last Admin: 01/03/17 10:01 Dose: 10 meq Ranitidine HCl (Zantac -) 150 mg PO BID [facility] Last Admin: 01/03/17 10:01 Dose: 150 mg Warfarin Sodium (Coumadin -) 3 mg PO DAILY@1800 [facility] Last Admin: 01/02/17 18:11 Dose: Not Given - Objective Vital Signs: Vital Signs Temperature 98.3 F 01/03/17 09:59 Pulse Rate 96 H 01/03/17 09:59 Respiratory Rate 18 01/03/17 09:59 Blood Pressure 121/65 01/03/17 09:59 O2 Sat by Pulse Oximetry (%) Constitutional: Yes: No Distress Eyes: Yes: Conjunctiva Clear Cardiovascular: Yes: Regular Rate and Rhythm, S1, S2 Respiratory: Yes: Rhonchi Gastrointestinal: Yes: Normal Bowel Sounds, Soft. No: Tenderness Edema: Yes Integumentary: Yes: Other (1 cm area of erythema at port site small amt serous drainage on dressing 10x6cm eliptical area of erythema L lateral chest ( previous Pleurx exit site)) Labs: CBC, BMP 01/03/17 06:00 01/03/17 06:00 INR, PTT INR 2.54 (0.82-1.09) H 01/03/17 06:00 Assessment/Plan ? Infected port Cellulitis L lateral thorax Possible sepsis secondary to skin infection Metastatic ovarian ca Await cultures Continue empiric vancomycin/ cefepime
--- NOTE | 2017-01-03 12:07 | HP ---
Admitting History and Physical - Admission History of Present Illness: 61 y.o. F with a pmh of metastatic ovarian cancer on weekly carbo/taxol, now with POD , increasing tumor markers, discussed for next treatment options. She also has malignant pleural effusions s/p left chest tube and was removed . Pt also has afib, diabetes , hypothyrodism--and morbid obesity . She was seen yesterday in [facility] office by and she noticed that pt port site was erythematous and was admitted for further w/u. She was seen by ID, she is presently on empiric abx. She is seen and examined this am. She feels ok, but she complains of redness at the site of the previous pleurex site on the left side. Feels sore. Still has soreness at the site of the port also. no fevers, chills. History Source: Patient Limitations to Obtaining History: No Limitations - Past Medical History Cardiovascular: Yes: AFIB, HTN, Other (chronic lymphedema) Pulmonary: Yes: COPD, Other (recently had a chest tube removed). No: O2 Dependent Gastrointestinal: Yes: GERD Heme/Onc: Yes: Anemia, Other (OVARIAN CA W METS) Endocrine: Yes: Diabetes Mellitus, Hyperthyroidism - Smoking History Smoking history: Never smoked Have you smoked in the past 12 months: No Aproximately how many cigarettes per day: 0 If you are a former smoker, when did you quit?: n - Alcohol/Substance Use Hx Alcohol Use: No - Social History ADL: Family Assistance History of Recent Travel: No Home Medications - Allergies Allergies/Adverse Reactions: Allergies Allergy/AdvReac Type Severity Reaction Status Date / Time No Known Allergies Allergy Verified 10/14/16 15:13 - Home Medications Home Medications: Ambulatory Orders Levothyroxine [Synthroid -] 75 mcg PO DAILY 10/17/12 Loratadine [Claritin -] 10 mg PO DAILY 10/17/12 Metformin HCl [Glucophage] 500 mg PO BID 10/17/12 Lee-3 Acid Ethyl Esters [Lovaza -] 1,000 mg PO TID 10/17/12 Insulin (Novolog) [Novolog Flexpen -] See Protocol SQ ACHS #1 pen 10/03/16 Ranitidine [Zantac -] 150 mg PO BID #30 tab 10/03/16 Insulin Aspart [Novolog Flexpen] 35 unit SQ BID 10/14/16 Potassium Chloride 10 meq PO DAILY 10/24/16 Diltiazem Cd [Cardizem Cd -] 300 mg PO DAILY 10/25/16 Amox-Tr/K Cl [Augmentin 875-125mg Tablet -] 1 tab PO BID@0800,1730 #10 tablet Glipizide 5 mg PO DAILY #60 tablet 10/31/16 Warfarin Na [Coumadin -] 3 mg PO DAILY #60 tablet 10/31/16 Bacitracin 14 gm TP BID #1 oint...g. 12/06/16 Furosemide [Lasix -] 40 mg PO DAILY 01/02/17 Montelukast Na [Singulair -] 10 mg PO HS 01/02/17 Family Disease History - Family Disease History Family Disease History: Diabetes: Mother, CA: Mother Review of Systems - Review of Systems Constitutional: denies: Chills, Diaphoresis, Fever, Lethargy, Loss of Appetite, Night Sweats, Unintentional Wgt. Loss HENT: denies: Difficult Swallowing, Ear Discharge, Throat Pain Neck: denies: Decreased ROM, Lumps, Pain on Movement Cardiovascular: denies: Chest Pain, Edema, Palpitations, Shortness of Breath Respiratory: denies: Cough, Exercise Intolerance Gastrointestinal: denies: Abdominal Pain, Constipation, Diarrhea Neurological: reports: No Symptoms Endocrine: reports: No Symptoms Hematology/Lymphatic: denies: Easily Bruised, Excessive Bleeding, Swollen Glands Physical Examination Vital Signs: Vital Signs Temperature 98.3 F 01/03/17 09:59 Pulse Rate 96 H 01/03/17 09:59 Respiratory Rate 18 01/03/17 09:59 Blood Pressure 121/65 01/03/17 09:59 O2 Sat by Pulse Oximetry (%) Constitutional: Yes: Calm Eyes: Yes: Conjunctiva Clear HENT: Yes: Atraumatic, Normocephalic Neck: Yes: Supple. No: Lymphadenopathy Cardiovascular: Yes: Regular Rate and Rhythm Respiratory: Yes: Regular, CTA Bilaterally, Other (redness on the left side , previous pleurex site, no fluctuance, only skin erythema noted) Edema: Yes (unchanged lower extremity) Labs: CBC, BMP 01/03/17 06:00 01/03/17 06:00 Imaging - Results Cat Scan: Report Reviewed (ct chest.abdomen pelvis done on 01.02 reviewed) Assessment/Plan is a 61 year old patient whom we closely follow every week, for her metastatic ovarian ca, on weekly carbo/taxol, with very recent POD, increase in tumor markers and planning to change the therapy is presently was admitted by on 01/02 for a possible port infection , also likely has cellulitis at the prior pleurex site. -ID f/u appreciated -?only superficial infection -thus far blood cx negative -on empiric abx -will continue her home meds -Afib , c/w coumadin, INR monitoring -c/w home meds. -will follow.
--- NOTE | 2017-01-03 17:25 | PN ---
Progress Note (short form) - Note Progress Note: VAscular Surgery Pt seen and examined. Port on left chest. Some erythema. Will follow cultures. So far blood cx are neg. Will wait to remove port. Jamal Callejas DO
[2017-01-03] MEDS: WARFARIN NA 3 MG TABLET PO SCH (18:12)
[2017-01-03] MEDS ORDERED: INSULIN (NOVOLOG) ASPART 100 UNITS/ML 10ML VIAL ONE (20:47)
[2017-01-04] MEDS ORDERED: PT OWN MED DRAWER 7, Y5N ONE ×2 (01:08→20:31)
[2017-01-04] MEDS: CEFEPIME 1 GM in DEXTROSE 5%-WATER 100 ML IVPB SCH ×3 (01:16→18:19)
[2017-01-04] MEDS: VANCOMYCIN 1,000 MG in DEXTROSE 5%-WATER - 250 ML IVPB SCH ×2 (03:46→16:14)
[2017-01-04] MEDS: INSULIN SLIDING SCALE (NOVOLOG) 1 VIAL SQ SCH ×4 (06:21→22:29)
[2017-01-04] MEDS: LEVOTHYROXINE NA 75 MCG TABLET (FP) PO SCH (06:22)
[2017-01-04] MEDS: OMEGA-3 ACID ETHYL ESTERS (FATTY-ACIDS) 1 GM CAPSULE (FP) PO SCH ×3 (06:22→22:28)
[2017-01-04] MEDS: glipiZIDE 5 MG TABLET (FP) PO SCH (06:22)
[2017-01-04 07:35] LABS: MCH 31.8 pg (25.7-33.7); MCHC 33.6 g/dl (32.0-36.0); MEAN CELL VOLUME 94.9 fl (80-96); MEAN PLT VOLUME 9.5 fl (7.5-11.1); PLATELET COUNT 185 K/MM3 (134-434); RDW 29.6 % (11.6-15.6); WHITE BLOOD COUNT 8.9 K/mm3 (4.0-10.0)
[2017-01-04 08:05] LABS: INR 2.32 (0.82-1.09)
[2017-01-04 08:07] LABS: ALBUMIN 3.3 g/dl (3.4-5.0); ANION GAP 13 (8-16); CALCIUM 9.6 mg/dL (8.5-10.1); CO2 24 mmol/L (21-32); CREATININE 0.7 mg/dL (0.55-1.02); GLUCOSE,RANDOM 141 mg/dL (74-106); SGPT/ALT 17 U/L (12-78)
[2017-01-04 08:08] LABS: ALK PHOS 119 U/L (45-117); BILIRUBIN,TOTAL 0.9 mg/dL (0.2-1.0); TOT PROT 6.9 g/dl (6.4-8.2)
[2017-01-04 08:28] LABS: SGOT/AST 33 U/L (15-37)
[2017-01-04] MEDS ORDERED: CEFEPIME HCL 1 GM VIAL (RESTRICTED TO ID) ONE ×2 (09:21→17:51)
[2017-01-04] MEDS ORDERED: DEXTROSE 5%-WATER 100 ML IVPB ONE ×2 (09:21→17:52)
[2017-01-04] MEDS: RANITIDINE HCL 150 MG TABLET (FP) PO SCH ×2 (09:24→22:28)
[2017-01-04] MEDS: POTASSIUM CHLORIDE TABS 10 MEQ TABLET.ER (FP) PO SCH (09:25)
--- NOTE | 2017-01-04 10:44 | PN ---
Progress Note (short form) - Note Progress Note: pt seen/ examined feels ok. denies pain. ct chest/ abd-- metastatic ca to lungs/ liver. vascular consult noted / appreciated Vital Signs Temp 98.2 F 01/04/17 09:00 Pulse 96 H 01/04/17 09:00 Resp 18 01/04/17 09:00 BP 109/62 01/04/17 09:00 Pulse Ox 95 01/02/17 18:49 Intake & Output 01/03/17 01/03/17 01/04/17 11:59 23:59 11:59 Intake Total 1000 390 300 Balance 1000 390 300 Intake: IV 400 Normal Saline - 600 ml @ 400 150 mls/hr IV ONCE ONE Rx #:[id number] IVPB 300 300 Oral 300 390 Other: Voiding Method Toilet Toilet Toilet # Unmeasured Voids Void 1 4 Bowel Movement Yes No No Active Medications Acetaminophen (Tylenol -) 650 mg PO Q6H PRN PRN Reason: FEVER OR PAIN Diltiazem HCl (Cardizem Cd -) 300 mg PO DAILY [facility] Last Admin: 01/04/17 09:25 Dose: 300 mg Glipizide (Glucotrol -) 5 mg PO DAILY@0700 [facility] Last Admin: 01/04/17 06:22 Dose: 5 mg Guaifenesin/Codeine Phosphate (Robitussin Ac -) 5 ml PO QID PRN PRN Reason: COUGH Last Admin: 01/02/17 15:47 Dose: 5 ml Vancomycin HCl 1,000 mg/ (Dextrose) 250 mls @ 166.667 mls/hr IVPB Q12H [facility] Last Admin: 01/04/17 03:46 Dose: 166.667 mls/hr Cefepime HCl 1 gm/ Dextrose 100 mls @ 200 mls/hr IVPB Q8H-IV [facility] Last Admin: 01/04/17 09:24 Dose: 200 mls/hr Insulin Aspart (Novolog Vial Sliding Scale -) 1 vial SQ ACHS [facility] PRN Reason: Protocol Last Admin: 01/04/17 06:21 Dose: Not Given Levothyroxine Sodium (Synthroid -) 75 mcg PO DAILY@0700 [facility] Last Admin: 01/04/17 06:22 Dose: 75 mcg Ouifk-5-Tcop Ethyl Esters (Lovaza -) 1 gm PO TID [facility] Last Admin: 01/04/17 06:22 Dose: 1 gm Potassium Chloride (K-Dur -) 10 meq PO DAILY [facility] Last Admin: 01/04/17 09:25 Dose: 10 meq Ranitidine HCl (Zantac -) 150 mg PO BID [facility] Last Admin: 01/04/17 09:24 Dose: 150 mg Warfarin Sodium (Coumadin -) 3 mg PO DAILY@1800 [facility] Last Admin: 01/03/17 18:12 Dose: 3 mg CBC, BMP 01/04/17 06:10 01/04/17 06:10 INR, PTT INR 2.32 (0.82-1.09) H 01/04/17 06:10 ct chest/ abdomen-- metastasis to lungs/ liver cultures-ve so far Physical Exam Comfortable. sitting in bed. no distress lungs- clear-- diminished at bed side. cvs- s1, s2 irregular chest -- reddness/ tenderness + at port - decreased abd- soft / non tender-- mild tenderness / reddness -- left side of abdominal wall. ext- trace edema. neuro- aox 3 a/p Cellulitis -- port abscess metastatic ovarian cancer diabetes afib. obesity hypothyrodism. Plan Abx i/d on case f/u cultures monitor bgm./ inr . port to be taken out if cultures turn + -ve so far will follow. Problem List - Problems (1) Cellulitis Code(s): L03.90 - CELLULITIS, UNSPECIFIED Qualifiers: Site of cellulitis: extremity Site of cellulitis of extremity: lower extremity Laterality: left Qualified Code(s): L03.116 - Cellulitis of left lower limb (2) Hypothyroid Code(s): E03.9 - HYPOTHYROIDISM, UNSPECIFIED (3) Anemia Code(s): D64.9 - ANEMIA, UNSPECIFIED (4) Diabetes Code(s): E11.9 - TYPE 2 DIABETES MELLITUS WITHOUT COMPLICATIONS Qualifiers: Diabetes mellitus type: type 2 Diabetes mellitus complication status: without complication (5) HTN (hypertension) Code(s): I10 - ESSENTIAL (PRIMARY) HYPERTENSION Qualifiers: (6) Morbidly obese Code(s): E66.01 - MORBID (SEVERE) OBESITY DUE TO EXCESS CALORIES (7) Primary cancer of ovary with widespread metastatic disease Code(s): C56.9 - MALIGNANT NEOPLASM OF UNSPECIFIED OVARY C80.0 - DISSEMINATED MALIGNANT NEOPLASM, UNSPECIFIED
--- NOTE | 2017-01-04 12:02 | PN ---
Progress Note (short form) - Note Progress Note: doing well no fevers Vital Signs Period Temp Pulse Resp BP Sys/Dinero Pulse Ox Last 24 Hr 98.1 F-98.6 F 86-96 18-18 107-117/52-65 98 cor-rrr llungs decreased bs on left lung, port site minimal swelling, sminimal erythema below port at incision, dry, no drainage, no tenderness left flank induration/erythema unchanged (prior chest tube site) abd soft,nt ext dry skin both legs CBC, BMP 01/04/17 06:10 01/04/17 06:10 Microbiology 01/02/17 13:41 Blood - Neeta Cath Blood Culture - Preliminary NO GROWTH OBTAINED AFTER 24 HOURS, INCUBATION TO CONTINUE FOR 4 DAYS. 01/02/17 13:15 Blood - Peripheral Venous Blood Culture - Preliminary NO GROWTH OBTAINED AFTER 24 HOURS, INCUBATION TO CONTINUE FOR 4 DAYS. 01/02/17 13:05 Blood - Peripheral Venous Blood Culture - Preliminary NO GROWTH OBTAINED AFTER 24 HOURS, INCUBATION TO CONTINUE FOR 4 DAYS. a/p possible port infection metastatic ovarian cancer continue vancomycin/cefepime for vanco level today f/u cultures
--- NOTE | 2017-01-04 13:19 | PN ---
Progress Note (short form) - Note Progress Note: Hematology/Oncology Follow-up Note S : Patient feels well overall, no major complaints. She feels her left arm is a little more swollen today. Last Vital Signs Temp Pulse Resp BP Pulse Ox 98.2 F 96 H 18 109/62 98 01/04/17 09:00 01/04/17 09:00 01/04/17 09:00 01/04/17 09:00 01/04/17 09:00 Physical Exam Alert, awake and pleasant PERRLA, EOMI S1S2 WNL, RRR Erythema on left chest which is the site of previous pleurex insertion Lower extremity and left upper extremity edema CBC, BMP 01/04/17 06:10 01/04/17 06:10 A/P : is a 61 year old patient whom we closely follow every week, for her metastatic ovarian ca, on weekly carbo/taxol, with very recent POD, increase in tumor markers and planning to change the therapy is presently was admitted by on 01/02 for a possible port infection , also likely has cellulitis at the prior pleurex site. -On vanco/cefepime, ID followinf patient -contine coumadin and monitor daily INR
[2017-01-04] MEDS: MINERAL OIL/PETROLAT/WATER TOPICAL CREAM 454 GM JAR TP SCH ×2 (14:44→22:29)
[2017-01-04] MEDS: WARFARIN NA 3 MG TABLET PO SCH (18:24)
[2017-01-04] MEDS: guaiFENesin/CODEINE 5 ML UNIT-DOSE CUPS PO PRN (22:28)
[2017-01-05] MEDS ORDERED: CEFEPIME HCL 1 GM VIAL (RESTRICTED TO ID) ONE ×3 (01:00→18:17)
[2017-01-05] MEDS ORDERED: DEXTROSE 5%-WATER 100 ML IVPB ONE ×3 (01:00→18:17)
[2017-01-05] MEDS: CEFEPIME 1 GM in DEXTROSE 5%-WATER 100 ML IVPB SCH ×3 (01:05→18:20)
[2017-01-05] MEDS: VANCOMYCIN 1,000 MG in DEXTROSE 5%-WATER - 250 ML IVPB SCH ×2 (02:30→17:05)
[2017-01-05] MEDS: OMEGA-3 ACID ETHYL ESTERS (FATTY-ACIDS) 1 GM CAPSULE (FP) PO SCH ×3 (06:48→21:39)
[2017-01-05] MEDS: glipiZIDE 5 MG TABLET (FP) PO SCH (06:48)
[2017-01-05] MEDS: INSULIN SLIDING SCALE (NOVOLOG) 1 VIAL SQ SCH ×4 (06:49→21:39)
[2017-01-05] MEDS: LEVOTHYROXINE NA 75 MCG TABLET (FP) PO SCH (06:49)
[2017-01-05] MEDS: POTASSIUM CHLORIDE TABS 10 MEQ TABLET.ER (FP) PO SCH (10:03)
[2017-01-05] MEDS: RANITIDINE HCL 150 MG TABLET (FP) PO SCH ×2 (10:04→21:39)
[2017-01-05] MEDS: MINERAL OIL/PETROLAT/WATER TOPICAL CREAM 454 GM JAR TP SCH ×2 (10:04→21:39)
--- NOTE | 2017-01-05 11:51 | PN ---
Progress Note (short form) - Note Progress Note: Vascular Surgery Port site looks good minimal erythema cultures are negative. Doesnt look like we need to remove port Will be on stand by Jamal Callejas DO
--- NOTE | 2017-01-05 11:53 | PN ---
Progress Note (short form) - Note Progress Note: pt seen/examined comfortable all f/u noted Vital Signs Temp 98.0 F 01/05/17 10:07 Pulse 92 H 01/05/17 10:07 Resp 18 01/05/17 10:07 BP 109/55 01/05/17 10:07 Pulse Ox 95 01/04/17 20:22 Intake & Output 01/04/17 01/04/17 01/05/17 11:59 23:59 11:59 Intake Total 300 450 700 Balance 300 450 700 Intake: IVPB 300 450 350 Oral 350 Other: Voiding Method Toilet Toilet Toilet # Unmeasured Voids Void 4 2 Bowel Movement No Yes No # Bowel Movements 1 Active Medications Acetaminophen (Tylenol -) 650 mg PO Q6H PRN PRN Reason: FEVER OR PAIN Diltiazem HCl (Cardizem Cd -) 300 mg PO DAILY [facility] Last Admin: 01/05/17 10:03 Dose: 300 mg Glipizide (Glucotrol -) 5 mg PO DAILY@0700 [facility] Last Admin: 01/05/17 06:48 Dose: 5 mg Guaifenesin/Codeine Phosphate (Robitussin Ac -) 5 ml PO QID PRN PRN Reason: COUGH Last Admin: 01/04/17 22:28 Dose: 5 ml Vancomycin HCl 1,000 mg/ (Dextrose) 250 mls @ 166.667 mls/hr IVPB Q12H [facility] Last Admin: 01/05/17 02:30 Dose: 166.667 mls/hr Cefepime HCl 1 gm/ Dextrose 100 mls @ 200 mls/hr IVPB Q8H-IV [facility] Last Admin: 01/05/17 10:03 Dose: 200 mls/hr Insulin Aspart (Novolog Vial Sliding Scale -) 1 vial SQ ACHS [facility] PRN Reason: Protocol Last Admin: 01/05/17 06:49 Dose: Not Given Levothyroxine Sodium (Synthroid -) 75 mcg PO DAILY@0700 [facility] Last Admin: 01/05/17 06:49 Dose: 75 mcg Multi-Ingredient Lotion (Eucerin (Large Jar) -) 1 applic TP BID [facility] Last Admin: 01/05/17 10:04 Dose: 1 applic Vwnzf-4-Zhoe Ethyl Esters (Lovaza -) 1 gm PO TID [facility] Last Admin: 01/05/17 06:48 Dose: 1 gm Potassium Chloride (K-Dur -) 10 meq PO DAILY [facility] Last Admin: 01/05/17 10:03 Dose: 10 meq Ranitidine HCl (Zantac -) 150 mg PO BID [facility] Last Admin: 01/05/17 10:04 Dose: 150 mg Warfarin Sodium (Coumadin -) 3 mg PO DAILY@1800 [facility] Last Admin: 01/04/17 18:24 Dose: 3 mg CBC, BMP 01/04/17 06:10 01/04/17 06:10 Microbiology 01/02/17 13:41 Blood Culture - Preliminary Blood - Neeta Cath NO GROWTH OBTAINED AFTER 48 HOURS, INCUBATION TO CONTINUE FOR 3 DAYS. 01/02/17 13:15 Blood Culture - Preliminary Blood - Peripheral Venous NO GROWTH OBTAINED AFTER 48 HOURS, INCUBATION TO CONTINUE FOR 3 DAYS. 01/02/17 13:05 Blood Culture - Preliminary Blood - Peripheral Venous NO GROWTH OBTAINED AFTER 48 HOURS, INCUBATION TO CONTINUE FOR 3 DAYS. Physical Exam Comfortable. no distress lungs- clear-- diminished at bases cvs- s1, s2 irregular chest -- reddness/ tenderness + at port - decreased--improved abd- soft / non tender-- mild tenderness / reddness -- left side of abdominal wall. ext- trace edema. neuro- aox 3 a/p Cellulitis -- port abscess- better metastatic ovarian cancer. diabetes. afib. obesity hypothyrodism. Plan Abx i/d on case better abx hematology on case discussed with Dr. Callejas also. Problem List - Problems (1) Cellulitis Code(s): L03.90 - CELLULITIS, UNSPECIFIED Qualifiers: Site of cellulitis: extremity Site of cellulitis of extremity: lower extremity Laterality: left Qualified Code(s): L03.116 - Cellulitis of left lower limb (2) Hypothyroid Code(s): E03.9 - HYPOTHYROIDISM, UNSPECIFIED (3) Anemia Code(s): D64.9 - ANEMIA, UNSPECIFIED (4) Diabetes Code(s): E11.9 - TYPE 2 DIABETES MELLITUS WITHOUT COMPLICATIONS Qualifiers: Diabetes mellitus type: type 2 Diabetes mellitus complication status: without complication (5) HTN (hypertension) Code(s): I10 - ESSENTIAL (PRIMARY) HYPERTENSION Qualifiers: (6) Morbidly obese Code(s): E66.01 - MORBID (SEVERE) OBESITY DUE TO EXCESS CALORIES (7) Primary cancer of ovary with widespread metastatic disease Code(s): C56.9 - MALIGNANT NEOPLASM OF UNSPECIFIED OVARY C80.0 - DISSEMINATED MALIGNANT NEOPLASM, UNSPECIFIED
[2017-01-05] MEDS ORDERED: PT OWN MED DRAWER 7, Y5N ONE ×2 (16:08→21:30)
[2017-01-05] MEDS: ONDANSETRON 4 MG/2 ML VIAL IVPB PRN (18:20)
[2017-01-05] MEDS: WARFARIN NA 3 MG TABLET PO SCH (18:20)
[2017-01-05] MEDS: guaiFENesin/CODEINE 5 ML UNIT-DOSE CUPS PO PRN (21:39)
[2017-01-06] MEDS ORDERED: CEFEPIME HCL 1 GM VIAL (RESTRICTED TO ID) ONE ×2 (00:43→10:00)
[2017-01-06] MEDS ORDERED: DEXTROSE 5%-WATER 100 ML IVPB ONE ×2 (00:43→10:00)
[2017-01-06] MEDS: CEFEPIME 1 GM in DEXTROSE 5%-WATER 100 ML IVPB SCH ×2 (01:08→10:10)
[2017-01-06] MEDS: VANCOMYCIN 1,000 MG in DEXTROSE 5%-WATER - 250 ML IVPB SCH (03:41)
[2017-01-06] MEDS: glipiZIDE 5 MG TABLET (FP) PO SCH (06:28)
[2017-01-06] MEDS: LEVOTHYROXINE NA 75 MCG TABLET (FP) PO SCH (06:28)
[2017-01-06] MEDS: OMEGA-3 ACID ETHYL ESTERS (FATTY-ACIDS) 1 GM CAPSULE (FP) PO SCH ×3 (06:28→21:01)
[2017-01-06] MEDS: INSULIN SLIDING SCALE (NOVOLOG) 1 VIAL SQ SCH ×4 (06:33→21:02)
--- NOTE | 2017-01-06 09:18 | PN ---
Progress Note (short form) - Note Progress Note: pt seen/examined. feels weak but otherwise ok. denies pain. had nausea yesterday-- resolved denies cp/sob. no abd pain. Vital Signs Temp 98 F 01/05/17 22:00 Pulse 89 01/05/17 22:00 Resp 20 01/05/17 22:00 BP 107/60 01/05/17 22:00 Pulse Ox 97 01/05/17 20:20 Intake & Output 01/05/17 01/05/17 01/06/17 11:59 23:59 11:59 Intake Total 700 650 Balance 700 650 Intake: IVPB 350 350 Oral 350 300 Other: Voiding Method Toilet Toilet Toilet # Unmeasured Voids Void 2 4 Bowel Movement No CBC, BMP 01/04/17 06:10 01/04/17 06:10 Microbiology 01/02/17 13:41 Blood Culture - Preliminary Blood - Neeta Cath NO GROWTH OBTAINED AFTER 72 HOURS, INCUBATION TO CONTINUE FOR 2 DAYS. 01/02/17 13:15 Blood Culture - Preliminary Blood - Peripheral Venous NO GROWTH OBTAINED AFTER 72 HOURS, INCUBATION TO CONTINUE FOR 2 DAYS. 01/02/17 13:05 Blood Culture - Preliminary Blood - Peripheral Venous NO GROWTH OBTAINED AFTER 72 HOURS, INCUBATION TO CONTINUE FOR 2 DAYS. Physical Exam Comfortable. no distress lungs- clear-- diminished at bases cvs- s1, s2 irregular. chest -- redness/ tenderness + at port - decreased significantly. abd- soft / non tender-- mild tenderness / redness -- left side of abdominal wall. ext- trace edema. neuro- aox 3 a/p Cellulitis -- port abscess- better metastatic ovarian cancer. diabetes. afib. obesity hypothyrodism. Plan Abx i/d on case Overall better hematology/ i/d to follow. will discuss Problem List - Problems (1) Cellulitis Code(s): L03.90 - CELLULITIS, UNSPECIFIED Qualifiers: Site of cellulitis: extremity Site of cellulitis of extremity: lower extremity Laterality: left Qualified Code(s): L03.116 - Cellulitis of left lower limb (2) Hypothyroid Code(s): E03.9 - HYPOTHYROIDISM, UNSPECIFIED (3) Anemia Code(s): D64.9 - ANEMIA, UNSPECIFIED (4) Diabetes Code(s): E11.9 - TYPE 2 DIABETES MELLITUS WITHOUT COMPLICATIONS Qualifiers: Diabetes mellitus type: type 2 Diabetes mellitus complication status: without complication (5) HTN (hypertension) Code(s): I10 - ESSENTIAL (PRIMARY) HYPERTENSION Qualifiers: (6) Morbidly obese Code(s): E66.01 - MORBID (SEVERE) OBESITY DUE TO EXCESS CALORIES (7) Primary cancer of ovary with widespread metastatic disease Code(s): C56.9 - MALIGNANT NEOPLASM OF UNSPECIFIED OVARY C80.0 - DISSEMINATED MALIGNANT NEOPLASM, UNSPECIFIED
[2017-01-06] MEDS: RANITIDINE HCL 150 MG TABLET (FP) PO SCH ×2 (10:11→21:02)
[2017-01-06] MEDS: POTASSIUM CHLORIDE TABS 10 MEQ TABLET.ER (FP) PO SCH (10:11)
[2017-01-06] MEDS: MINERAL OIL/PETROLAT/WATER TOPICAL CREAM 454 GM JAR TP SCH ×2 (10:12→21:05)
[2017-01-06] MEDS: guaiFENesin/CODEINE 5 ML UNIT-DOSE CUPS PO PRN (10:19)
--- NOTE | 2017-01-06 10:22 | PN ---
Progress Note, Physician History of Present Illness: Awake, seated in bed C/O soreness at L flank No pain at port site No fever/ chills BC no growth Vascular consult noted - Current Medication List Current Medications: Active Medications Acetaminophen (Tylenol -) 650 mg PO Q6H PRN PRN Reason: FEVER OR PAIN Diltiazem HCl (Cardizem Cd -) 300 mg PO DAILY [facility] Last Admin: 01/06/17 10:11 Dose: 300 mg Glipizide (Glucotrol -) 5 mg PO DAILY@0700 [facility] Last Admin: 01/06/17 06:28 Dose: 5 mg Guaifenesin/Codeine Phosphate (Robitussin Ac -) 5 ml PO QID PRN PRN Reason: COUGH Last Admin: 01/05/17 21:39 Dose: 5 ml Vancomycin HCl 1,000 mg/ (Dextrose) 250 mls @ 166.667 mls/hr IVPB Q12H [facility] Last Admin: 01/06/17 03:41 Dose: 166.667 mls/hr Cefepime HCl 1 gm/ Dextrose 100 mls @ 200 mls/hr IVPB Q8H-IV [facility] Last Admin: 01/06/17 10:10 Dose: 200 mls/hr Insulin Aspart (Novolog Vial Sliding Scale -) 1 vial SQ ACHS [facility] PRN Reason: Protocol Last Admin: 01/06/17 06:33 Dose: Not Given Levothyroxine Sodium (Synthroid -) 75 mcg PO DAILY@0700 [facility] Last Admin: 01/06/17 06:28 Dose: 75 mcg Multi-Ingredient Lotion (Eucerin (Large Jar) -) 1 applic TP BID [facility] Last Admin: 01/06/17 10:12 Dose: 1 applic [id number] Ethyl Esters (Lovaza -) 1 gm PO TID [facility] Last Admin: 01/06/17 06:28 Dose: 1 gm Ondansetron HCl (Zofran Injection) 4 mg IVPB Q8H PRN PRN Reason: NAUSEA Last Admin: 01/05/17 18:20 Dose: 4 mg Potassium Chloride (K-Dur -) 10 meq PO DAILY [facility] Last Admin: 01/06/17 10:11 Dose: 10 meq Ranitidine HCl (Zantac -) 150 mg PO BID [facility] Last Admin: 01/06/17 10:11 Dose: 150 mg Warfarin Sodium (Coumadin -) 3 mg PO DAILY@1800 [facility] Last Admin: 01/05/17 18:20 Dose: 3 mg - Objective Vital Signs: Vital Signs Temperature 98 F 01/05/17 22:00 Pulse Rate 89 01/05/17 22:00 Respiratory Rate 20 01/05/17 22:00 Blood Pressure 107/60 01/05/17 22:00 O2 Sat by Pulse Oximetry (%) 97 01/05/17 20:20 Constitutional: Yes: No Distress, Obese Eyes: Yes: Conjunctiva Clear Cardiovascular: Yes: Regular Rate and Rhythm, S1, S2 Respiratory: Yes: Rhonchi Gastrointestinal: Yes: Normal Bowel Sounds, Soft, Abdomen, Obese. No: Tenderness Edema: Yes Integumentary: Yes: Other (Erythema at port site and L upper chest resolved Resolving erythema L flank) Labs: CBC, BMP 01/04/17 06:10 01/04/17 06:10 INR, PTT INR 2.32 (0.82-1.09) H 01/04/17 06:10 Assessment/Plan ? Infected port BC negative; erythema resolved Cellulitis L lateral thorax- improved Metastatic ovarian ca May substitute po keflex additional 7d Discussed with oncology Resume chemo after complete resolution of L flank cellulitis
--- NOTE | 2017-01-06 16:34 | PN ---
Progress Note (short form) - Note Progress Note: Patient seen and examined Feels tired Last Vital Signs Temp Pulse Resp BP Pulse Ox 97.8 F 95 H 18 117/66 97 01/06/17 14:02 01/06/17 14:02 01/06/17 14:02 01/06/17 14:02 01/06/17 09:00 Cor: RSR, No murmurs, No gallops Lungs: Clear to P&A Abd: Soft, Normal bowel sounds, No organomegaly Ext:No significant edema Skin: No rashes, Integument intact Labs reviewed Current Medications Generic Name Dose Route Start Last Admin Trade Name Freq PRN Reason Stop Dose Admin Acetaminophen 650 mg 01/02/17 14:56 Tylenol - PO Q6H PRN FEVER OR PAIN Diltiazem HCl 300 mg 01/02/17 15:00 01/06/17 10:11 Cardizem Cd - PO 300 mg DAILY [facility] Administration Glipizide 5 mg 01/02/17 15:00 01/06/17 06:28 Glucotrol - PO 5 mg DAILY@0700 [facility] Administration Guaifenesin/Codeine Phosphate 5 ml 01/02/17 15:28 01/06/17 10:19 Robitussin Ac - PO 5 ml QID PRN Administration COUGH Insulin Aspart 1 vial 01/02/17 16:30 01/06/17 11:49 Novolog Vial Sliding Scale - SQ Not Given ACHS [facility] Protocol Levothyroxine Sodium 75 mcg 01/03/17 07:00 01/06/17 06:28 Synthroid - PO 75 mcg DAILY@0700 [facility] Administration Multi-Ingredient Lotion 1 applic 01/04/17 12:00 01/06/17 10:12 Eucerin (Large Jar) - TP 1 applic BID [facility] Administration [id number]-8-[id number] Ethyl Esters 1 gm 01/02/17 15:00 01/06/17 14:19 Lovaza - PO 1 gm TID [facility] Administration Ondansetron HCl 4 mg 01/05/17 17:46 01/05/17 18:20 Zofran Injection IVPB 4 mg Q8H PRN Administration NAUSEA Potassium Chloride 10 meq 01/03/17 10:00 01/06/17 10:11 K-Dur - PO 10 meq DAILY [facility] Administration Ranitidine HCl 150 mg 01/02/17 22:00 01/06/17 10:11 Zantac - PO 150 mg BID [facility] Administration Warfarin Sodium 3 mg 01/02/17 15:30 01/05/17 18:20 Coumadin - PO 3 mg DAILY@1800 [facility] Administration A/P 61 y/o patient with metastatic ovarian cancer Admitted for port site skin infection improved on antibiotics switching to PO INR therapeutic Monitor INR closely discussed CT result swith patients daughter--multiple lung nodules, RLL lung nodule new, lt. pleural masses, lt. chest wallmass,liver mets, retroperitoneal nodes check u/s lt. chest wall CA125 rising. will discuss scans with radiology and consider swiching to [facility] next week
[2017-01-06] MEDS: ONDANSETRON 4 MG/2 ML VIAL IVPB PRN (16:35)
[2017-01-06] MEDS: WARFARIN NA 3 MG TABLET PO SCH (17:59)
[2017-01-06] MEDS ORDERED: INSULIN (NOVOLOG) ASPART 100 UNITS/ML 10ML VIAL ONE (20:28)
[2017-01-06] MEDS: CEPHALEXIN MONOHYDRATE 500 MG CAPSULE (UD) PO SCH (21:01)
[2017-01-07] MEDS: INSULIN SLIDING SCALE (NOVOLOG) 1 VIAL SQ SCH ×4 (06:27→21:18)
[2017-01-07] MEDS: OMEGA-3 ACID ETHYL ESTERS (FATTY-ACIDS) 1 GM CAPSULE (FP) PO SCH ×3 (06:28→21:20)
[2017-01-07] MEDS: LEVOTHYROXINE NA 75 MCG TABLET (FP) PO SCH (06:28)
[2017-01-07] MEDS: glipiZIDE 5 MG TABLET (FP) PO SCH (06:29)
[2017-01-07 07:38] LABS: INR 2.95 (0.82-1.09); MCH 31.7 pg (25.7-33.7); MEAN CELL VOLUME 96.1 fl (80-96); PLATELET COUNT 140 K/MM3 (134-434); PROTHROMBIN TIME (PATIENT) 33.2 SEC (9.98-11.88); RDW 29.3 % (11.6-15.6)
[2017-01-07 07:58] LABS: ALBUMIN 2.6 g/dl (3.4-5.0); ANION GAP 10 (8-16); CALCIUM 9.1 mg/dL (8.5-10.1); CO2 25 mmol/L (21-32); CREATININE 0.6 mg/dL (0.55-1.02); GLUCOSE,RANDOM 104 mg/dL (74-106); SGOT/AST 22 U/L (15-37); SGPT/ALT 13 U/L (12-78)
[2017-01-07 07:59] LABS: ALK PHOS 107 U/L (45-117); BILIRUBIN,TOTAL 0.9 mg/dL (0.2-1.0); TOT PROT 5.8 g/dl (6.4-8.2)
--- NOTE | 2017-01-07 08:46 | PN ---
Progress Note (short form) - Note Progress Note: pt seen/ examined comfortable all f/us noted denies pain on po abx Vital Signs Temp 98.4 F 01/07/17 06:04 Pulse 92 H 01/07/17 06:04 Resp 20 01/07/17 06:04 BP 140/76 01/07/17 06:04 Pulse Ox 97 01/06/17 20:42 Intake & Output 01/06/17 01/06/17 01/07/17 11:59 23:59 11:59 Intake Total 650 750 50 Balance 650 750 50 Intake: IVPB 350 100 Oral 300 650 50 Other: Voiding Method Toilet Toilet # Unmeasured Voids Void 4 2 1 Bowel Movement No No Active Medications Acetaminophen (Tylenol -) 650 mg PO Q6H PRN PRN Reason: FEVER OR PAIN Cephalexin HCl (Keflex -) 500 mg PO BID [facility] Last Admin: 01/06/17 21:01 Dose: 500 mg Diltiazem HCl (Cardizem Cd -) 300 mg PO DAILY [facility] Last Admin: 01/06/17 10:11 Dose: 300 mg Glipizide (Glucotrol -) 5 mg PO DAILY@0700 [facility] Last Admin: 01/07/17 06:29 Dose: 5 mg Insulin Aspart (Novolog Vial Sliding Scale -) 1 vial SQ ACHS [facility] PRN Reason: Protocol Last Admin: 01/07/17 06:27 Dose: Not Given Levothyroxine Sodium (Synthroid -) 75 mcg PO DAILY@0700 [facility] Last Admin: 01/07/17 06:28 Dose: 75 mcg Multi-Ingredient Lotion (Eucerin (Large Jar) -) 1 applic TP BID [facility] Last Admin: 01/06/17 21:05 Dose: 1 applic [id number] Ethyl Esters (Lovaza -) 1 gm PO TID [facility] Last Admin: 01/07/17 06:28 Dose: 1 gm Ondansetron HCl (Zofran Injection) 4 mg IVPB Q8H PRN PRN Reason: NAUSEA Last Admin: 01/06/17 16:35 Dose: 4 mg Potassium Chloride (K-Dur -) 10 meq PO DAILY [facility] Last Admin: 01/06/17 10:11 Dose: 10 meq Ranitidine HCl (Zantac -) 150 mg PO BID [facility] Last Admin: 01/06/17 21:02 Dose: 150 mg Warfarin Sodium (Coumadin -) 3 mg PO DAILY@1800 [facility] Last Admin: 01/06/17 17:59 Dose: 3 mg CBC, BMP 01/07/17 06:00 01/07/17 06:00 INR, PTT INR 2.95 (0.82-1.09) H 01/07/17 06:00 Physical Exam Comfortable.sitting in bed no distress lungs- clear-- diminished at bases cvs- s1, s2 irregular. chest -- redness/ tenderness + at port - almost resolved abd- soft / non tender-- tenderness / redness -- left side of abdominal wall.-- resolved- almost ext- trace edema. neuro- aox 3 a/p Cellulitis -- port abscess- resolved metastatic ovarian cancer. diabetes. afib. obesity hypothyrodism. Plan Abx--on keflex i/d on case Overall better to be started on chemo by onc will follow discussed with pt. Problem List - Problems (1) Cellulitis Code(s): L03.90 - CELLULITIS, UNSPECIFIED Qualifiers: Site of cellulitis: extremity Site of cellulitis of extremity: lower extremity Laterality: left Qualified Code(s): L03.116 - Cellulitis of left lower limb (2) Hypothyroid Code(s): E03.9 - HYPOTHYROIDISM, UNSPECIFIED (3) Anemia Code(s): D64.9 - ANEMIA, UNSPECIFIED (4) Diabetes Code(s): E11.9 - TYPE 2 DIABETES MELLITUS WITHOUT COMPLICATIONS Qualifiers: Diabetes mellitus type: type 2 Diabetes mellitus complication status: without complication (5) HTN (hypertension) Code(s): I10 - ESSENTIAL (PRIMARY) HYPERTENSION Qualifiers: (6) Morbidly obese Code(s): E66.01 - MORBID (SEVERE) OBESITY DUE TO EXCESS CALORIES (7) Primary cancer of ovary with widespread metastatic disease Code(s): C56.9 - MALIGNANT NEOPLASM OF UNSPECIFIED OVARY C80.0 - DISSEMINATED MALIGNANT NEOPLASM, UNSPECIFIED
[2017-01-07 09:48] LABS: METAMYELOCYTE 1 % (0-2); MYELOCYTE 1 % (0-2); TOTAL CELLS COUNTED 100
[2017-01-07 09:49] LABS: ANISOCYTOSIS 3+; MACROCYTOSIS 1+; MICROCYTOSIS 2+
[2017-01-07] MEDS: POTASSIUM CHLORIDE TABS 10 MEQ TABLET.ER (FP) PO SCH (10:09)
[2017-01-07] MEDS: RANITIDINE HCL 150 MG TABLET (FP) PO SCH ×2 (10:09→21:19)
[2017-01-07] MEDS: CEPHALEXIN MONOHYDRATE 500 MG CAPSULE (UD) PO SCH ×2 (10:09→21:20)
[2017-01-07] MEDS: MINERAL OIL/PETROLAT/WATER TOPICAL CREAM 454 GM JAR TP SCH ×2 (10:10→21:22)
--- NOTE | 2017-01-07 10:55 | PN ---
Progress Note, Physician History of Present Illness: Awake, alert No c/o pain at port site or L chest No fever/chills WBC WNL BC negative - Current Medication List Current Medications: Active Medications Acetaminophen (Tylenol -) 650 mg PO Q6H PRN PRN Reason: FEVER OR PAIN Cephalexin HCl (Keflex -) 500 mg PO BID [facility] Last Admin: 01/07/17 10:09 Dose: 500 mg Diltiazem HCl (Cardizem Cd -) 300 mg PO DAILY [facility] Last Admin: 01/07/17 10:09 Dose: 300 mg Glipizide (Glucotrol -) 5 mg PO DAILY@0700 [facility] Last Admin: 01/07/17 06:29 Dose: 5 mg Insulin Aspart (Novolog Vial Sliding Scale -) 1 vial SQ ACHS [facility] PRN Reason: Protocol Last Admin: 01/07/17 06:27 Dose: Not Given Levothyroxine Sodium (Synthroid -) 75 mcg PO DAILY@0700 [facility] Last Admin: 01/07/17 06:28 Dose: 75 mcg Multi-Ingredient Lotion (Eucerin (Large Jar) -) 1 applic TP BID [facility] Last Admin: 01/07/17 10:10 Dose: 1 applic [id number]-[id number] Ethyl Esters (Lovaza -) 1 gm PO TID [facility] Last Admin: 01/07/17 06:28 Dose: 1 gm Ondansetron HCl (Zofran Injection) 4 mg IVPB Q8H PRN PRN Reason: NAUSEA Last Admin: 01/06/17 16:35 Dose: 4 mg Potassium Chloride (K-Dur -) 10 meq PO DAILY [facility] Last Admin: 01/07/17 10:09 Dose: 10 meq Ranitidine HCl (Zantac -) 150 mg PO BID [facility] Last Admin: 01/07/17 10:09 Dose: 150 mg Warfarin Sodium (Coumadin -) 3 mg PO DAILY@1800 [facility] Last Admin: 01/06/17 17:59 Dose: 3 mg - Objective Vital Signs: Vital Signs Temperature 97.9 F 01/07/17 09:29 Pulse Rate 100 H 01/07/17 09:29 Respiratory Rate 18 01/07/17 09:29 Blood Pressure 127/66 01/07/17 09:29 O2 Sat by Pulse Oximetry (%) 97 01/06/17 20:42 Constitutional: Yes: No Distress, Obese Eyes: Yes: Conjunctiva Clear Cardiovascular: Yes: Regular Rate and Rhythm, S1, S2 Respiratory: Yes: CTA Bilaterally Gastrointestinal: Yes: Normal Bowel Sounds, Soft, Abdomen, Obese. No: Tenderness Edema: Yes Integumentary: Yes: Other (No erythema at port site Erythema L flank nearly completely resolved) Labs: CBC, BMP 01/07/17 06:00 01/07/17 06:00 INR, PTT INR 2.95 (0.82-1.09) H 01/07/17 06:00 Assessment/Plan ? Infected port BC negative; erythema resolved Cellulitis L lateral thorax- nearly resolved Metastatic carcinoma Continue po keflex additional 7d Resume chemo after complete resolution of L flank cellulitis Fluid collection L flank ? seroma ? abscess Would consider IR evaluation for possible percutaneous drainage
--- NOTE | 2017-01-07 12:57 | PN ---
Progress Note (short form) - Note Progress Note: Patient seen and examined Chart/labs/imaging reviewed. pt is tearful. Last Vital Signs Temp Pulse Resp BP Pulse Ox 97.8 F 95 H 18 117/66 97 01/06/17 14:02 01/06/17 14:02 01/06/17 14:02 01/06/17 14:02 01/06/17 09:00 Constitutional: Yes:tearful Eyes: Yes: Conjunctiva Clear HENT: Yes: Atraumatic, Normocephalic Neck: Yes: Supple. No: Lymphadenopathy Cardiovascular: Yes: Regular Rate and Rhythm Respiratory: Yes: Regular, CTA Bilaterally, Other (redness on the left side , previous pleurex site, no fluctuance, only skin erythema noted) Edema: Yes (unchanged lower extremity) Temp Pulse Resp BP Pulse Ox 97.9 F 100 H 18 127/66 97 01/07/17 09:29 01/07/17 09:29 01/07/17 09:29 01/07/17 09:29 01/06/17 20:42 CBC, BMP 01/07/17 06:00 01/07/17 06:00 Current Medications Generic Name Dose Route Start Last Admin Trade Name Freq PRN Reason Stop Dose Admin Acetaminophen 650 mg 01/02/17 14:56 Tylenol - PO Q6H PRN FEVER OR PAIN Cephalexin HCl 500 mg 01/06/17 22:00 01/07/17 10:09 Keflex - PO 500 mg BID [facility] Administration Diltiazem HCl 300 mg 01/02/17 15:00 01/07/17 10:09 Cardizem Cd - PO 300 mg DAILY [facility] Administration Glipizide 5 mg 01/02/17 15:00 01/07/17 06:29 Glucotrol - PO 5 mg DAILY@0700 [facility] Administration Insulin Aspart 1 vial 01/02/17 16:30 01/07/17 11:55 Novolog Vial Sliding Scale - SQ Not Given ACHS [facility] Protocol Levothyroxine Sodium 75 mcg 01/03/17 07:00 01/07/17 06:28 Synthroid - PO 75 mcg DAILY@0700 [facility] Administration Multi-Ingredient Lotion 1 applic 01/04/17 12:00 01/07/17 10:10 Eucerin (Large Jar) - TP 1 applic BID [facility] Administration Bjwqo-6-Vqau Ethyl Esters 1 gm 01/02/17 15:00 01/07/17 06:28 Lovaza - PO 1 gm TID [facility] Administration Ondansetron HCl 4 mg 01/05/17 17:46 01/06/17 16:35 Zofran Injection IVPB 4 mg Q8H PRN Administration NAUSEA Potassium Chloride 10 meq 01/03/17 10:00 01/07/17 10:09 K-Dur - PO 10 meq DAILY [facility] Administration Ranitidine HCl 150 mg 01/02/17 22:00 01/07/17 10:09 Zantac - PO 150 mg BID [facility] Administration Warfarin Sodium 3 mg 01/02/17 15:30 01/06/17 17:59 Coumadin - PO 3 mg DAILY@1800 [facility] Administration Microbiology 01/02/17 13:41 Blood - Neeta Cath Blood Culture - Preliminary NO GROWTH OBTAINED AFTER 96 HOURS, INCUBATION TO CONTINUE FOR 1 DAYS. 01/02/17 13:15 Blood - Peripheral Venous Blood Culture - Preliminary NO GROWTH OBTAINED AFTER 96 HOURS, INCUBATION TO CONTINUE FOR 1 DAYS. 01/02/17 13:05 Blood - Peripheral Venous Blood Culture - Preliminary NO GROWTH OBTAINED AFTER 96 HOURS, INCUBATION TO CONTINUE FOR 1 DAYS. Assessment/Plan: is a 61 year old patient whom we closely follow every week, for her metastatic ovarian ca, on weekly carbo/taxol, with new POD, change of therapy being discussed,now admitted with port site superficial infection -ID f/u noted -US of the lateral chest wall, noted, a fluid collection was reported, will consult CT surgery to evaluate for possible drainage. -on PO abx now per ID , cultures been negative -Afib , c/w coumadin, INR monitoring -c/w home meds. -Depression , pt been tearful since yesterday : will consult Psychology for eval -will follow.
--- NOTE | 2017-01-07 14:44 | CON.CARD ---
Consult Consult Specialty:: cardiology Reason for Consultation:: AF; CHF; - History of Present Illness Chief Complaint: Pt OOB in chair; depressed, but cooperative; cries easily History of Present Illness: 61 y.o. F with a pmh of metastatic ovarian cancer on weekly chemotherapy, malignant pleural effusions s/p left chest tube--removal--afib, diabetes , hypothyrodism--and morbid obesity -- admitted by Dr. Miller for port abscess. pt getting broad spectrum abx - History Source History Provided By: Patient, Medical Record Limitations to Obtaining History: No Limitations - Past Medical History Cardio/Vascular: Yes: AFIB, HTN, Other (chronic lymphedema) Pulmonary: Yes: COPD, Other (recently had a chest tube removed). No: O2 Dependent Gastrointestinal: Yes: GERD Reproductive: Yes: Postmenopausal ...: No Heme/Onc: Yes: Anemia Psych: Yes: Anxiety, Depression Endocrine: Yes: Diabetes Mellitus, Hyperthyroidism - Alcohol/Substance Use Hx Alcohol Use: No - Smoking History Smoking history: Never smoked Have you smoked in the past 12 months: No Aproximately how many cigarettes per day: 0 If you are a former smoker, when did you quit?: n - Social History Usual Living Arrangement: With Child ADL: Family Assistance History of Recent Travel: No Home Medications - Allergies Allergies/Adverse Reactions: Allergies Allergy/AdvReac Type Severity Reaction Status Date / Time No Known Allergies Allergy Verified 10/14/16 15:13 - Home Medications Home Medications: Ambulatory Orders Levothyroxine [Synthroid -] 75 mcg PO DAILY 10/17/12 Loratadine [Claritin -] 10 mg PO DAILY 10/17/12 Metformin HCl [Glucophage] 500 mg PO BID 10/17/12 [place]-3 Acid Ethyl Esters [Lovaza -] 1,000 mg PO TID 10/17/12 Insulin (Novolog) [Novolog Flexpen -] See Protocol SQ ACHS #1 pen 10/03/16 Ranitidine [Zantac -] 150 mg PO BID #30 tab 10/03/16 Insulin Aspart [Novolog Flexpen] 35 unit SQ BID 10/14/16 Potassium Chloride 10 meq PO DAILY 10/24/16 Diltiazem Cd [Cardizem Cd -] 300 mg PO DAILY 10/25/16 Amox-Tr/K Cl [Augmentin 875-125mg Tablet -] 1 tab PO BID@0800,1730 #10 tablet Glipizide 5 mg PO DAILY #60 tablet 10/31/16 Warfarin Na [Coumadin -] 3 mg PO DAILY #60 tablet 10/31/16 Bacitracin 14 gm TP BID #1 oint...g. 12/06/16 Furosemide [Lasix -] 40 mg PO DAILY 01/02/17 Montelukast Na [Singulair -] 10 mg PO HS 01/02/17 Family Disease History - Family Disease History Family Disease History: Diabetes: Mother, CA: Mother Review of Systems - Review of Systems Constitutional: reports: Loss of Appetite Eyes: reports: No Symptoms HENT: reports: No Symptoms Neck: reports: No Symptoms Cardiovascular: reports: Shortness of Breath Respiratory: reports: SOB on Exertion Gastrointestinal: reports: Nausea Genitourinary: reports: No Symptoms Musculoskeletal: reports: Joint Swelling, Muscle Weakness Integumentary: reports: Erythema (near left chest tube scar) Neurological: reports: Weakness Psychiatric: reports: Anxiety, Depression - Risk Factors Known Risk Factors: Yes: Age, Hypertension, Other (morbid obesity; AF; CHF) Vital Signs: Vital Signs Temperature 97.9 F 01/07/17 09:29 Pulse Rate 100 H 01/07/17 09:29 Respiratory Rate 18 01/07/17 09:29 Blood Pressure 127/66 01/07/17 09:29 O2 Sat by Pulse Oximetry (%) 97 01/06/17 20:42 Constitutional: Yes: Anxious, Other (depressed) HENT: Yes: WNL Neck: Yes: WNL Respiratory: Yes: Diminished (left base) Gastrointestinal: Yes: Soft, Abdomen, Obese Renal/: No: Anuria JVD: No Carotid Bruit: No Heart Sounds: Yes: S1, S2 Murmur: Yes: Systolic Murmur, Grade 2 Musculoskeletal: Yes: Joint Stiffness, Joint Swelling, Muscle Weakness, Other ( massively enlarged left knee>right) Extremities: Yes: Cool Edema: Yes Edema: LLE: 2+, RLE: 2+ Peripheral Pulses WNL: No Peripheral Pulses: 1+ Left Doralis Pedis, 1+ Right Dorsalis Pedis Integumentary: Yes: Erythema (mild 5 cm left post-axillary above scar from chest tube), Venous Stasis Changes - Other Data Labs, Other Data: CBC, BMP 01/07/17 06:00 01/07/17 06:00 INR, PTT INR 2.95 (0.82-1.09) H 01/07/17 06:00 Problem List - Problems (1) A-fib Assessment/Plan: On diltiazem for HR. ECHO: normal LVEF; mild TR; trace-mild MR; mild biatrial enlargement. On warfarin; therapeutic INR. Code(s): I48.91 - UNSPECIFIED ATRIAL FIBRILLATION Qualifiers: (2) Cellulitis Code(s): L03.90 - CELLULITIS, UNSPECIFIED Qualifiers: Site of cellulitis: extremity Site of cellulitis of extremity: lower extremity Laterality: left Qualified Code(s): L03.116 - Cellulitis of left lower limb (3) Hypothyroid Code(s): E03.9 - HYPOTHYROIDISM, UNSPECIFIED (4) Lymphedema Code(s): I89.0 - LYMPHEDEMA, NOT ELSEWHERE CLASSIFIED (5) Abscess Code(s): L02.91 - CUTANEOUS ABSCESS, UNSPECIFIED (6) Anxiety and depression Code(s): F41.9 - ANXIETY DISORDER, UNSPECIFIED F32.9 - MAJOR DEPRESSIVE DISORDER, SINGLE EPISODE, UNSPECIFIED (7) Cancer of ovary Code(s): C56.9 - MALIGNANT NEOPLASM OF UNSPECIFIED OVARY Qualifiers: (8) Diabetes Code(s): E11.9 - TYPE 2 DIABETES MELLITUS WITHOUT COMPLICATIONS Qualifiers: Diabetes mellitus type: type 2 Diabetes mellitus complication status: without complication (9) HTN (hypertension) Code(s): I10 - ESSENTIAL (PRIMARY) HYPERTENSION Qualifiers: (10) Morbidly obese Code(s): E66.01 - MORBID (SEVERE) OBESITY DUE TO EXCESS CALORIES (11) Neutropenia Code(s): D70.9 - NEUTROPENIA, UNSPECIFIED (12) Pleural effusion Code(s): J90 - PLEURAL EFFUSION, NOT ELSEWHERE CLASSIFIED (13) SOB (shortness of breath) Code(s): R06.02 - SHORTNESS OF BREATH (14) Congestive heart failure Assessment/Plan: ECHO: normal LVEF; abnormal diastolic compliance; mild TR; trace-mild MR. Will reorder in am when pt is supine (presently in chair; reluctant to change position). [place] on diltiazem. Code(s): I50.9 - HEART FAILURE, UNSPECIFIED Qualifiers: Congestive heart failure type: combined Congestive heart failure chronicity: chronic Qualified Code(s): I50.42 - Chronic combined systolic (congestive) and diastolic (congestive) heart failure
[2017-01-07 16:21] LABS: THYROID STIMULATING HORMONE 1.17 uIU/ml (0.358-3.74)
[2017-01-07] MEDS ORDERED: INSULIN (NOVOLOG) ASPART 100 UNITS/ML 10ML VIAL ONE (20:05)
[2017-01-07] MEDS: WARFARIN NA 3 MG TABLET PO SCH (21:19)
[2017-01-08] MEDS: glipiZIDE 5 MG TABLET (FP) PO SCH (06:32)
[2017-01-08] MEDS: OMEGA-3 ACID ETHYL ESTERS (FATTY-ACIDS) 1 GM CAPSULE (FP) PO SCH ×3 (06:32→22:01)
[2017-01-08] MEDS: INSULIN SLIDING SCALE (NOVOLOG) 1 VIAL SQ SCH ×4 (06:32→22:01)
[2017-01-08] MEDS: LEVOTHYROXINE NA 75 MCG TABLET (FP) PO SCH (06:33)
[2017-01-08 07:30] LABS: MCH 31.5 pg (25.7-33.7); MCHC 32.6 g/dl (32.0-36.0); MEAN CELL VOLUME 96.6 fl (80-96); MEAN PLT VOLUME 8.9 fl (7.5-11.1); PLATELET COUNT 144 K/MM3 (134-434); RDW 28.6 % (11.6-15.6); WHITE BLOOD COUNT 5.4 K/mm3 (4.0-10.0)
[2017-01-08 07:43] LABS: INR 2.93 (0.82-1.09); PROTHROMBIN TIME (PATIENT) 32.9 SEC (9.98-11.88)
[2017-01-08 07:53] LABS: ALBUMIN 2.8 g/dl (3.4-5.0); ALK PHOS 122 U/L (45-117); ANION GAP 7 (8-16); BILIRUBIN,TOTAL 1.1 mg/dL (0.2-1.0); CALCIUM 9.2 mg/dL (8.5-10.1); CO2 25 mmol/L (21-32); CREATININE 0.7 mg/dL (0.55-1.02); GLUCOSE,RANDOM 113 mg/dL (74-106); SGOT/AST 31 U/L (15-37); SGPT/ALT 15 U/L (12-78); TOT PROT 6.1 g/dl (6.4-8.2)
--- NOTE | 2017-01-08 09:55 | PN ---
Progress Note, Physician History of Present Illness: 61 y.o. F with a pmh of metastatic ovarian cancer on weekly chemotherapy, malignant pleural effusions s/p left chest tube--removal--afib, diabetes , hypothyrodism--and morbid obesity -- admitted by Dr. Miller for port abscess. pt getting broad spectrum abx - Current Medication List Current Medications: Active Medications Acetaminophen (Tylenol -) 650 mg PO Q6H PRN PRN Reason: FEVER OR PAIN Cephalexin HCl (Keflex -) 500 mg PO BID [facility] Last Admin: 01/07/17 21:20 Dose: 500 mg Diltiazem HCl (Cardizem Cd -) 300 mg PO DAILY [facility] Last Admin: 01/07/17 10:09 Dose: 300 mg Furosemide (Lasix -) 20 mg PO DAILY [facility] Glipizide (Glucotrol -) 5 mg PO DAILY@0700 [facility] Last Admin: 01/08/17 06:32 Dose: 5 mg Insulin Aspart (Novolog Vial Sliding Scale -) 1 vial SQ ACHS [facility] PRN Reason: Protocol Last Admin: 01/08/17 06:32 Dose: Not Given Levothyroxine Sodium (Synthroid -) 75 mcg PO DAILY@0700 [facility] Last Admin: 01/08/17 06:33 Dose: 75 mcg Multi-Ingredient Lotion (Eucerin (Large Jar) -) 1 applic TP BID [facility] Last Admin: 01/07/17 21:22 Dose: 1 applic Jhagn-3-Vwys Ethyl Esters (Lovaza -) 1 gm PO TID [facility] Last Admin: 01/08/17 06:32 Dose: 1 gm Ondansetron HCl (Zofran Injection) 4 mg IVPB Q8H PRN PRN Reason: NAUSEA Last Admin: 01/06/17 16:35 Dose: 4 mg Potassium Chloride (K-Dur -) 10 meq PO DAILY [facility] Last Admin: 01/07/17 10:09 Dose: 10 meq Ranitidine HCl (Zantac -) 150 mg PO BID [facility] Last Admin: 01/07/17 21:19 Dose: 150 mg Warfarin Sodium (Coumadin -) 3 mg PO DAILY@1800 [facility] Last Admin: 01/07/17 21:19 Dose: 3 mg - Objective Vital Signs: Vital Signs Temperature 97.9 F 01/07/17 21:18 Pulse Rate 87 01/07/17 21:18 Respiratory Rate 18 01/07/17 21:18 Blood Pressure 110/55 01/07/17 21:18 O2 Sat by Pulse Oximetry (%) 98 01/07/17 21:00 Labs: CBC, BMP 01/08/17 06:00 01/08/17 06:00 INR, PTT INR 2.93 (0.82-1.09) H 01/08/17 06:00
[2017-01-08] MEDS ORDERED: PT OWN MED DRAWER 7, Y5N ONE ×2 (10:07→21:44)
[2017-01-08] MEDS: POTASSIUM CHLORIDE TABS 10 MEQ TABLET.ER (FP) PO SCH (10:13)
[2017-01-08] MEDS: RANITIDINE HCL 150 MG TABLET (FP) PO SCH ×2 (10:13→22:01)
[2017-01-08] MEDS: FUROSEMIDE 20 MG TABLET (FP) PO SCH (10:13)
[2017-01-08] MEDS: CEPHALEXIN MONOHYDRATE 500 MG CAPSULE (UD) PO SCH ×2 (10:13→22:01)
[2017-01-08] MEDS: MINERAL OIL/PETROLAT/WATER TOPICAL CREAM 454 GM JAR TP SCH ×2 (10:14→22:01)
--- NOTE | 2017-01-08 10:48 | PN ---
Progress Note, Physician Chief Complaint: Events noted depressed and tearful - Current Medication List Current Medications: Active Medications Acetaminophen (Tylenol -) 650 mg PO Q6H PRN PRN Reason: FEVER OR PAIN Cephalexin HCl (Keflex -) 500 mg PO BID [facility] Last Admin: 01/08/17 10:13 Dose: 500 mg Diltiazem HCl (Cardizem Cd -) 300 mg PO DAILY [facility] Last Admin: 01/08/17 10:13 Dose: 300 mg Furosemide (Lasix -) 20 mg PO DAILY [facility] Last Admin: 01/08/17 10:13 Dose: 20 mg Glipizide (Glucotrol -) 5 mg PO DAILY@0700 [facility] Last Admin: 01/08/17 06:32 Dose: 5 mg Insulin Aspart (Novolog Vial Sliding Scale -) 1 vial SQ ACHS [facility] PRN Reason: Protocol Last Admin: 01/08/17 06:32 Dose: Not Given Levothyroxine Sodium (Synthroid -) 75 mcg PO DAILY@0700 [facility] Last Admin: 01/08/17 06:33 Dose: 75 mcg Multi-Ingredient Lotion (Eucerin (Large Jar) -) 1 applic TP BID [facility] Last Admin: 01/08/17 10:14 Dose: 1 applic Pezvb-8-Gucj Ethyl Esters (Lovaza -) 1 gm PO TID [facility] Last Admin: 01/08/17 06:32 Dose: 1 gm Ondansetron HCl (Zofran Injection) 4 mg IVPB Q8H PRN PRN Reason: NAUSEA Last Admin: 01/06/17 16:35 Dose: 4 mg Potassium Chloride (K-Dur -) 10 meq PO DAILY [facility] Last Admin: 01/08/17 10:13 Dose: 10 meq Ranitidine HCl (Zantac -) 150 mg PO BID [facility] Last Admin: 01/08/17 10:13 Dose: 150 mg Warfarin Sodium (Coumadin -) 3 mg PO DAILY@1800 [facility] Last Admin: 01/07/17 21:19 Dose: 3 mg - Objective Vital Signs: Vital Signs Temperature 97.9 F 01/07/17 21:18 Pulse Rate 87 01/07/17 21:18 Respiratory Rate 18 01/07/17 21:18 Blood Pressure 110/55 01/07/17 21:18 O2 Sat by Pulse Oximetry (%) 98 01/07/17 21:00 Constitutional: Yes: Calm Cardiovascular: Yes: Pulse Irregular, Murmur Respiratory: Yes: Diminished, Other (left axilary fold-- erythema , induration and tender+, area where pig tail cath was placed. left chest wall portacath- no surrounding erythema, no foul smelling discharge) Edema: Yes Labs: CBC, BMP 01/08/17 06:00 01/08/17 06:00 INR, PTT INR 2.93 (0.82-1.09) H 01/08/17 06:00 Problem List - Problems (1) A-fib Code(s): I48.91 - UNSPECIFIED ATRIAL FIBRILLATION Qualifiers: (2) Cellulitis Code(s): L03.90 - CELLULITIS, UNSPECIFIED Qualifiers: Site of cellulitis: extremity Site of cellulitis of extremity: lower extremity Laterality: left Qualified Code(s): L03.116 - Cellulitis of left lower limb (3) Hypothyroid Code(s): E03.9 - HYPOTHYROIDISM, UNSPECIFIED (4) Lymphedema Code(s): I89.0 - LYMPHEDEMA, NOT ELSEWHERE CLASSIFIED (5) Abscess Code(s): L02.91 - CUTANEOUS ABSCESS, UNSPECIFIED Assessment/Plan PLAN PO antibiotics CT surgeon eval with regards to fluid collection in left axillay fold.?abscess/ hematoma hold Coumadin till we hear from Dr Méndez- RN aware Psychologist evaluated pt today pt will think about antidepressants-- eg., Amy spoke with Oncologist continue with meds
--- NOTE | 2017-01-08 11:28 | PN ---
Progress Note (short form) - Note Progress Note: Patient seen and examined Chart/labs/imaging reviewed. Last Vital Signs Temp Pulse Resp BP Pulse Ox 97.9 F 87 18 110/55 98 01/07/17 21:18 01/07/17 21:18 01/07/17 21:18 01/07/17 21:18 01/07/17 21:00 CBC, BMP 01/08/17 06:00 01/08/17 06:00 Current Medications Generic Name Dose Route Start Last Admin Trade Name Freq PRN Reason Stop Dose Admin Acetaminophen 650 mg 01/02/17 14:56 Tylenol - PO Q6H PRN FEVER OR PAIN Cephalexin HCl 500 mg 01/06/17 22:00 01/08/17 10:13 Keflex - PO 500 mg BID [facility] Administration Diltiazem HCl 300 mg 01/02/17 15:00 01/08/17 10:13 Cardizem Cd - PO 300 mg DAILY [facility] Administration Furosemide 20 mg 01/08/17 10:00 01/08/17 10:13 Lasix - PO 20 mg DAILY [facility] Administration Glipizide 5 mg 01/02/17 15:00 01/08/17 06:32 Glucotrol - PO 5 mg DAILY@0700 [facility] Administration Insulin Aspart 1 vial 01/02/17 16:30 01/08/17 06:32 Novolog Vial Sliding Scale - SQ Not Given ACHS [facility] Protocol Levothyroxine Sodium 75 mcg 01/03/17 07:00 01/08/17 06:33 Synthroid - PO 75 mcg DAILY@0700 [facility] Administration Multi-Ingredient Lotion 1 applic 01/04/17 12:00 01/08/17 10:14 Eucerin (Large Jar) - TP 1 applic BID [facility] Administration Xfabr-9-Eyvi Ethyl Esters 1 gm 01/02/17 15:00 01/08/17 06:32 Lovaza - PO 1 gm TID [facility] Administration Ondansetron HCl 4 mg 01/05/17 17:46 01/06/17 16:35 Zofran Injection IVPB 4 mg Q8H PRN Administration NAUSEA Potassium Chloride 10 meq 01/03/17 10:00 01/08/17 10:13 K-Dur - PO 10 meq DAILY [facility] Administration Ranitidine HCl 150 mg 01/02/17 22:00 01/08/17 10:13 Zantac - PO 150 mg BID [facility] Administration Warfarin Sodium 3 mg 01/07/17 20:00 01/07/17 21:19 Coumadin - PO 3 mg DAILY@1800 [facility] Administration Constitutional: Yes:tearful Eyes: Yes: Conjunctiva Clear HENT: Yes: Atraumatic, Normocephalic Neck: Yes: Supple. No: Lymphadenopathy Cardiovascular: Yes: Regular Rate and Rhythm Respiratory: Yes: Regular, CTA Bilaterally, Other (decreased erythema, but a lump felt previous pleurex site, no fluctuance) Edema: Yes (unchanged lower extremity) Assessment/Plan: is a 61 year old patient whom we closely follow every week, for her metastatic ovarian ca, on weekly carbo/taxol, with new POD, change of therapy being discussed,now admitted with port site superficial infection -ID f/u noted -US of the lateral chest wall, noted, a fluid collection was reported, will consult CT surgery to evaluate for possible drainage. -on PO abx now per ID , cultures been negative -Afib , c/w coumadin, INR monitoring, agree to hold tonight's coumadin, pending CT surgery recommendations -c/w home meds. -will follow. -d/w .
--- NOTE | 2017-01-08 11:28 | EKG ---
Test Reason : Blood Pressure : / mmHG Vent. Rate : 083 BPM Atrial Rate : 394 BPM P-R Int : 000 ms QRS Dur : 082 ms QT Int : 334 ms P-R-T Axes : 000 053 240 degrees QTc Int : 392 ms ATRIAL FIBRILLATION LOW VOLTAGE QRS NONSPECIFIC T WAVE ABNORMALITY ABNORMAL ECG WHEN COMPARED WITH ECG OF 08-SEP-2016 19:25, NO SIGNIFICANT CHANGE WAS FOUND Confirmed by ANNAMARIA CHOW, PAMELA ([id number]) on 01/08/2017 11:28:24 AM Referred By: Prashant NI Confirmed By:PAMELA YIN MD
[2017-01-08] MEDS: ONDANSETRON 4 MG/2 ML VIAL IVPB PRN (11:39)
--- NOTE | 2017-01-08 12:07 | PN ---
Progress Note, Physician History of Present Illness: 61 y.o. F with a pmh of metastatic ovarian cancer on weekly chemotherapy, malignant pleural effusions s/p left chest tube--removal--afib, diabetes , hypothyrodism--and morbid obesity -- admitted by Dr. Miller for port abscess. pt getting broad spectrum abx - Current Medication List Current Medications: Active Medications Acetaminophen (Tylenol -) 650 mg PO Q6H PRN PRN Reason: FEVER OR PAIN Cephalexin HCl (Keflex -) 500 mg PO BID [facility] Last Admin: 01/08/17 10:13 Dose: 500 mg Diltiazem HCl (Cardizem Cd -) 300 mg PO DAILY [facility] Last Admin: 01/08/17 10:13 Dose: 300 mg Furosemide (Lasix -) 20 mg PO DAILY [facility] Last Admin: 01/08/17 10:13 Dose: 20 mg Glipizide (Glucotrol -) 5 mg PO DAILY@0700 [facility] Last Admin: 01/08/17 06:32 Dose: 5 mg Insulin Aspart (Novolog Vial Sliding Scale -) 1 vial SQ ACHS [facility] PRN Reason: Protocol Last Admin: 01/08/17 06:32 Dose: Not Given Levothyroxine Sodium (Synthroid -) 75 mcg PO DAILY@0700 [facility] Last Admin: 01/08/17 06:33 Dose: 75 mcg Multi-Ingredient Lotion (Eucerin (Large Jar) -) 1 applic TP BID [facility] Last Admin: 01/08/17 10:14 Dose: 1 applic Ympzv-7-Vquj Ethyl Esters (Lovaza -) 1 gm PO TID [facility] Last Admin: 01/08/17 06:32 Dose: 1 gm Ondansetron HCl (Zofran Injection) 4 mg IVPB Q8H PRN PRN Reason: NAUSEA Last Admin: 01/08/17 11:39 Dose: 4 mg Potassium Chloride (K-Dur -) 10 meq PO DAILY [facility] Last Admin: 01/08/17 10:13 Dose: 10 meq Ranitidine HCl (Zantac -) 150 mg PO BID [facility] Last Admin: 01/08/17 10:13 Dose: 150 mg Warfarin Sodium (Coumadin -) 3 mg PO DAILY@1800 [facility] Last Admin: 01/07/17 21:19 Dose: 3 mg - Objective Vital Signs: Vital Signs Temperature 97.9 F 01/07/17 21:18 Pulse Rate 87 01/07/17 21:18 Respiratory Rate 18 01/07/17 21:18 Blood Pressure 110/55 01/07/17 21:18 O2 Sat by Pulse Oximetry (%) 98 01/07/17 21:00 Eyes: Yes: WNL, Conjunctiva Clear, EOM Intact HENT: Yes: WNL, Atraumatic, Normocephalic Neck: Yes: WNL, Supple, Trachea Midline Cardiovascular: Yes: WNL, Regular Rate and Rhythm Respiratory: Yes: WNL, Regular, CTA Bilaterally Gastrointestinal: Yes: WNL, Normal Bowel Sounds Genitourinary: Yes: WNL Musculoskeletal: Yes: WNL Extremities: Yes: WNL Edema: Yes Integumentary: Yes: WNL Neurological: Yes: WNL, Alert, Oriented ...Motor Strength: WNL Psychiatric: Yes: WNL Labs: CBC, BMP 01/08/17 06:00 01/08/17 06:00 INR, PTT INR 2.93 (0.82-1.09) H 01/08/17 06:00 Assessment/Plan - Problems (1) A-fib Assessment/Plan: On diltiazem for HR. F/u ECHO for LVEF. On warfarin; therapeutic INR. Code(s): I48.91 - UNSPECIFIED ATRIAL FIBRILLATION Qualifiers: (2) Cellulitis Code(s): L03.90 - CELLULITIS, UNSPECIFIED Qualifiers: Site of cellulitis: extremity Site of cellulitis of extremity: lower extremity Laterality: left Qualified Code(s): L03.116 - Cellulitis of left lower limb (3) Hypothyroid Code(s): E03.9 - HYPOTHYROIDISM, UNSPECIFIED (4) Lymphedema Code(s): I89.0 - LYMPHEDEMA, NOT ELSEWHERE CLASSIFIED (5) Abscess Code(s): L02.91 - CUTANEOUS ABSCESS, UNSPECIFIED (6) Anxiety and depression Code(s): F41.9 - ANXIETY DISORDER, UNSPECIFIED F32.9 - MAJOR DEPRESSIVE DISORDER, SINGLE EPISODE, UNSPECIFIED (7) Cancer of ovary Code(s): C56.9 - MALIGNANT NEOPLASM OF UNSPECIFIED OVARY Qualifiers: (8) Diabetes Code(s): E11.9 - TYPE 2 DIABETES MELLITUS WITHOUT COMPLICATIONS Qualifiers: Diabetes mellitus type: type 2 Diabetes mellitus complication status: without complication (9) HTN (hypertension) Code(s): I10 - ESSENTIAL (PRIMARY) HYPERTENSION Qualifiers: (10) Morbidly obese Code(s): E66.01 - MORBID (SEVERE) OBESITY DUE TO EXCESS CALORIES (11) Neutropenia Code(s): D70.9 - NEUTROPENIA, UNSPECIFIED (12) Pleural effusion Code(s): J90 - PLEURAL EFFUSION, NOT ELSEWHERE CLASSIFIED (13) SOB (shortness of breath) Code(s): R06.02 - SHORTNESS OF BREATH (14) Congestive heart failure Assessment/Plan: Unable to assess LVEF last month with ECHO. Will reorder in am when pt is supine (presently in chair; reluctant to change position). Presnelty on diltiazem. Code(s): I50.9 - HEART FAILURE, UNSPECIFIED Qualifiers: Congestive heart failure type: combined Congestive heart failure chronicity: chronic Qualified Code(s): I50.42 - Chronic combined systolic (congestive) and diastolic (congestive) heart failure
--- NOTE | 2017-01-08 14:38 | CON.PSL ---
Psychology Consult Consult Specialty:: Clinical Psychology Reason for Consultation:: The patient has been readmitted due to her medical condition and she has become more depressed. She is being treated for metastatic ovarian cancer. History of Present Illness: The patient has been a patient at [facility] since 09/23/16. History Provided By: Patient Limitations to Obtaining History: No Limitations Current Medications: Active Medications Acetaminophen (Tylenol -) 650 mg PO Q6H PRN PRN Reason: FEVER OR PAIN Cephalexin HCl (Keflex -) 500 mg PO BID [facility] Last Admin: 01/08/17 10:13 Dose: 500 mg Diltiazem HCl (Cardizem Cd -) 300 mg PO DAILY [facility] Last Admin: 01/08/17 10:13 Dose: 300 mg Furosemide (Lasix -) 20 mg PO DAILY [facility] Last Admin: 01/08/17 10:13 Dose: 20 mg Glipizide (Glucotrol -) 5 mg PO DAILY@0700 [facility] Last Admin: 01/08/17 06:32 Dose: 5 mg Insulin Aspart (Novolog Vial Sliding Scale -) 1 vial SQ ACHS [facility] PRN Reason: Protocol Last Admin: 01/08/17 12:13 Dose: Not Given Levothyroxine Sodium (Synthroid -) 75 mcg PO DAILY@0700 [facility] Last Admin: 01/08/17 06:33 Dose: 75 mcg Multi-Ingredient Lotion (Eucerin (Large Jar) -) 1 applic TP BID [facility] Last Admin: 01/08/17 10:14 Dose: 1 applic Tgtup-6-Njgi Ethyl Esters (Lovaza -) 1 gm PO TID [facility] Last Admin: 01/08/17 06:32 Dose: 1 gm Ondansetron HCl (Zofran Injection) 4 mg IVPB Q8H PRN PRN Reason: NAUSEA Last Admin: 01/08/17 11:39 Dose: 4 mg Potassium Chloride (K-Dur -) 10 meq PO DAILY [facility] Last Admin: 01/08/17 10:13 Dose: 10 meq Ranitidine HCl (Zantac -) 150 mg PO BID [facility] Last Admin: 01/08/17 10:13 Dose: 150 mg Warfarin Sodium (Coumadin -) 3 mg PO DAILY@1800 [facility] Last Admin: 01/07/17 21:19 Dose: 3 mg Allergies: Allergies Allergy/AdvReac Type Severity Reaction Status Date / Time No Known Allergies Allergy Verified 10/14/16 15:13 Does patient have pain?: No (Patient denied any pain.) Hx Alcohol Use: No Hx Substance Use: No Hx Substance Use Treatment: No Current Medical Exam-Psy Orientation: Time, Person, Place Immediate Term Memory: 06/21 Expressive: Coherent Receptive: Age Appropriate Comprehension of Spoken Words Hallucinations: Absent Thought Process: Intact Depression: Severe Hopelessness: Yes (The patient was tearful during the evaluation. ) Loss of Interest: Yes Danger to Self and Others: No (Although the patient denies being anxious, she most likely is experiencing anxiety regarding her quality of life and prognosis. ) Sleep: Poorly Appetite: Poor Serial Sevens Intact: No Repeats 3 words told earlier: 06/21 Support System: Child/Children (She has one daughter that lives with her.) Leisure activities: With Family (She), Watch movies/TV Problem List - Problem (1) Depression, major, severe recurrence Code(s): F33.2 - MAJOR DEPRESSV DISORDER, RECURRENT SEVERE W/O PSYCH FEATURES Assessment/Plan Ms. Estrada was seen again due to a worsening of her depression. The patient indicated that she was receptive to my treatment recommendations. We will incorporate cognitive therapy using mindfulness, breathing / relaxation exercises and guided imagery. Our main focus will be of a supportive nature to help her through this difficult time. With her permission, a family session would be of value as well. In addition, pastoral care support during her inpatient stay is highly recommended.
[2017-01-08] MEDS: WARFARIN NA 3 MG TABLET PO SCH ×2 (17:44→18:59)
[2017-01-08] MEDS ORDERED: WARFARIN NA 3 MG TABLET PO SCH (18:00)
[2017-01-09] MEDS: INSULIN SLIDING SCALE (NOVOLOG) 1 VIAL SQ SCH ×4 (06:25→22:04)
[2017-01-09] MEDS: LEVOTHYROXINE NA 75 MCG TABLET (FP) PO SCH (06:25)
[2017-01-09] MEDS: glipiZIDE 5 MG TABLET (FP) PO SCH (06:25)
[2017-01-09] MEDS: OMEGA-3 ACID ETHYL ESTERS (FATTY-ACIDS) 1 GM CAPSULE (FP) PO SCH ×3 (06:25→22:03)
[2017-01-09 08:01] LABS: INR 2.95 (0.82-1.09); PROTHROMBIN TIME (PATIENT) 33.2 SEC (9.98-11.88)
[2017-01-09] MEDS: POTASSIUM CHLORIDE TABS 10 MEQ TABLET.ER (FP) PO SCH (09:49)
[2017-01-09] MEDS: CEPHALEXIN MONOHYDRATE 500 MG CAPSULE (UD) PO SCH ×2 (09:49→22:03)
[2017-01-09] MEDS: FUROSEMIDE 20 MG TABLET (FP) PO SCH ×2 (09:50→14:00)
[2017-01-09] MEDS: RANITIDINE HCL 150 MG TABLET (FP) PO SCH ×2 (09:50→22:03)
[2017-01-09] MEDS: MINERAL OIL/PETROLAT/WATER TOPICAL CREAM 454 GM JAR TP SCH ×2 (09:51→22:03)
[2017-01-09] MEDS ORDERED: PT OWN MED DRAWER 7, Y5N ONE (10:10)
--- NOTE | 2017-01-09 10:54 | PN ---
Progress Note, Physician Chief Complaint: very depressed and tearful - Current Medication List Current Medications: Active Medications Acetaminophen (Tylenol -) 650 mg PO Q6H PRN PRN Reason: FEVER OR PAIN Cephalexin HCl (Keflex -) 500 mg PO BID [facility] Last Admin: 01/09/17 09:49 Dose: 500 mg Diltiazem HCl (Cardizem Cd -) 300 mg PO DAILY [facility] Last Admin: 01/09/17 09:49 Dose: 300 mg Furosemide (Lasix -) 20 mg PO DAILY [facility] Last Admin: 01/09/17 09:50 Dose: 20 mg Glipizide (Glucotrol -) 5 mg PO DAILY@0700 [facility] Last Admin: 01/09/17 06:25 Dose: 5 mg Insulin Aspart (Novolog Vial Sliding Scale -) 1 vial SQ ACHS [facility] PRN Reason: Protocol Last Admin: 01/09/17 06:25 Dose: Not Given Levothyroxine Sodium (Synthroid -) 75 mcg PO DAILY@0700 [facility] Last Admin: 01/09/17 06:25 Dose: 75 mcg Multi-Ingredient Lotion (Eucerin (Large Jar) -) 1 applic TP BID [facility] Last Admin: 01/09/17 09:51 Dose: 1 applic Ygrsp-1-Xady Ethyl Esters (Lovaza -) 1 gm PO TID [facility] Last Admin: 01/09/17 06:25 Dose: 1 gm Ondansetron HCl (Zofran Injection) 4 mg IVPB Q8H PRN PRN Reason: NAUSEA Last Admin: 01/08/17 11:39 Dose: 4 mg Potassium Chloride (K-Dur -) 10 meq PO DAILY [facility] Last Admin: 01/09/17 09:49 Dose: 10 meq Ranitidine HCl (Zantac -) 150 mg PO BID [facility] Last Admin: 01/09/17 09:50 Dose: 150 mg Warfarin Sodium (Coumadin -) 3 mg PO DAILY@1800 [facility] Last Admin: 01/08/17 18:59 Dose: 3 mg - Objective Vital Signs: Vital Signs Temperature 98.5 F 01/09/17 06:00 Pulse Rate 89 01/09/17 06:00 Respiratory Rate 20 01/09/17 06:00 Blood Pressure 114/70 01/09/17 06:00 O2 Sat by Pulse Oximetry (%) 96 01/08/17 20:10 Constitutional: Yes: Mild Distress Cardiovascular: Yes: Pulse Irregular Respiratory: Yes: Diminished, Other (left portacath site-- no erythema, left axillary fold, decreased induration , not tender) Gastrointestinal: Yes: Normal Bowel Sounds, Soft, Abdomen, Obese. No: Distention, Tenderness Edema: Yes Labs: CBC, BMP 01/08/17 06:00 01/08/17 06:00 INR, PTT INR 2.95 (0.82-1.09) H 01/09/17 06:00 Problem List - Problems (1) A-fib Code(s): I48.91 - UNSPECIFIED ATRIAL FIBRILLATION Qualifiers: (2) Cellulitis Code(s): L03.90 - CELLULITIS, UNSPECIFIED Qualifiers: Site of cellulitis: extremity Site of cellulitis of extremity: lower extremity Laterality: left Qualified Code(s): L03.116 - Cellulitis of left lower limb (3) Hypothyroid Code(s): E03.9 - HYPOTHYROIDISM, UNSPECIFIED (4) Lymphedema Code(s): I89.0 - LYMPHEDEMA, NOT ELSEWHERE CLASSIFIED (5) Abscess Code(s): L02.91 - CUTANEOUS ABSCESS, UNSPECIFIED Assessment/Plan PLAN PO antibiotics CT surgeon eval with regards to fluid collection in left axillay fold.?abscess/ hematoma-- was spoken to yesterday by the nurse and instructed to repeat CXR pt agrred to start antidepressants-- will start Wellbutrin-- does not interact with Coumadin Psychologist evaluated noted continue with meds increase Lasix for chronic leg edema
[2017-01-09] MEDS ORDERED: FUROSEMIDE 20 MG TABLET (FP) PO SCH (11:23)
--- NOTE | 2017-01-09 12:04 | PN ---
Progress Note (short form) - Note Progress Note: Patient seen and examined Feels tired Last Vital Signs Temp Pulse Resp BP Pulse Ox 97.8 F 95 H 18 117/66 97 01/06/17 14:02 01/06/17 14:02 01/06/17 14:02 01/06/17 14:02 01/06/17 09:00 Cor: RSR, No murmurs, No gallops Lungs: Clear to P&A Abd: Soft, Normal bowel sounds, No organomegaly Ext:No significant edema Left chest wall colo Labs reviewed Current Medications Generic Name Dose Route Start Last Admin Trade Name Freq PRN Reason Stop Dose Admin Acetaminophen 650 mg 01/02/17 14:56 Tylenol - PO Q6H PRN FEVER OR PAIN Diltiazem HCl 300 mg 01/02/17 15:00 01/06/17 10:11 Cardizem Cd - PO 300 mg DAILY [facility] Administration Glipizide 5 mg 01/02/17 15:00 01/06/17 06:28 Glucotrol - PO 5 mg DAILY@0700 [facility] Administration Guaifenesin/Codeine Phosphate 5 ml 01/02/17 15:28 01/06/17 10:19 Robitussin Ac - PO 5 ml QID PRN Administration COUGH Insulin Aspart 1 vial 01/02/17 16:30 01/06/17 11:49 Novolog Vial Sliding Scale - SQ Not Given ACHS [facility] Protocol Levothyroxine Sodium 75 mcg 01/03/17 07:00 01/06/17 06:28 Synthroid - PO 75 mcg DAILY@0700 [facility] Administration Multi-Ingredient Lotion 1 applic 01/04/17 12:00 01/06/17 10:12 Eucerin (Large Jar) - TP 1 applic BID [facility] Administration Bqomc-4-Ltzx Ethyl Esters 1 gm 01/02/17 15:00 01/06/17 14:19 Lovaza - PO 1 gm TID [facility] Administration Ondansetron HCl 4 mg 01/05/17 17:46 01/05/17 18:20 Zofran Injection IVPB 4 mg Q8H PRN Administration NAUSEA Potassium Chloride 10 meq 01/03/17 10:00 01/06/17 10:11 K-Dur - PO 10 meq DAILY [facility] Administration Ranitidine HCl 150 mg 01/02/17 22:00 09/18/17 10:11 Zantac - PO 150 mg BID [facility] Administration Warfarin Sodium 3 mg 01/02/17 15:30 01/05/17 18:20 Coumadin - PO 3 mg DAILY@1800 [facility] Administration A/P 61 y/o patient with metastatic ovarian cancer Admitted for port site skin infection improved on antibiotics switchjed to PO discussed CT result swith patients daughter--multiple lung nodules, RLL lung nodule new, lt. pleural masses, lt. chest wallmass,liver mets, retroperitoneal nodes u/s lt. chest wall---fluid collection ---? infected collection vs hematoma will discuss with pulmonary/IR/ID-- possible drainage will need to be bridged for coumadin disussed with patient
--- NOTE | 2017-01-09 12:05 | PN ---
Progress Note, Physician Chief Complaint: OOB in chair; no chest pain; dyspneic on minimal exertion. History of Present Illness: 61 y.o. white woman with PMHx of metastatic ovarian cancer on weekly chemotherapy, malignant pleural effusions s/p left chest tube--removal--afib, diabetes , hypothyrodism, and morbid obesity, now admitted by Dr. Miller for port abscess. pt getting broad spectrum abx - Current Medication List Current Medications: Active Medications Acetaminophen (Tylenol -) 650 mg PO Q6H PRN PRN Reason: FEVER OR PAIN Bupropion HCl (Wellbutrin Xl -) 150 mg PO DAILY [facility] Cephalexin HCl (Keflex -) 500 mg PO BID [facility] Last Admin: 01/09/17 09:49 Dose: 500 mg Diltiazem HCl (Cardizem Cd -) 300 mg PO DAILY [facility] Last Admin: 01/09/17 09:49 Dose: 300 mg Furosemide (Lasix -) 40 mg PO DAILY [facility] Glipizide (Glucotrol -) 5 mg PO DAILY@0700 [facility] Last Admin: 01/09/17 06:25 Dose: 5 mg Insulin Aspart (Novolog Vial Sliding Scale -) 1 vial SQ ACHS [facility] PRN Reason: Protocol Last Admin: 01/09/17 06:25 Dose: Not Given Levothyroxine Sodium (Synthroid -) 75 mcg PO DAILY@0700 [facility] Last Admin: 01/09/17 06:25 Dose: 75 mcg Multi-Ingredient Lotion (Eucerin (Large Jar) -) 1 applic TP BID [facility] Last Admin: 01/09/17 09:51 Dose: 1 applic [id number] Ethyl Esters (Lovaza -) 1 gm PO TID [facility] Last Admin: 01/09/17 06:25 Dose: 1 gm Ondansetron HCl (Zofran Injection) 4 mg IVPB Q8H PRN PRN Reason: NAUSEA Last Admin: 01/08/17 11:39 Dose: 4 mg Potassium Chloride (K-Dur -) 10 meq PO DAILY [facility] Last Admin: 01/09/17 09:49 Dose: 10 meq Ranitidine HCl (Zantac -) 150 mg PO BID [facility] Last Admin: 01/09/17 09:50 Dose: 150 mg Warfarin Sodium (Coumadin -) 3 mg PO DAILY@1800 [facility] Last Admin: 01/08/17 18:59 Dose: 3 mg - Objective Vital Signs: Vital Signs Temperature 97.8 F 01/09/17 10:00 Pulse Rate 91 H 01/09/17 10:00 Respiratory Rate 20 01/09/17 10:00 Blood Pressure 151/61 01/09/17 10:00 O2 Sat by Pulse Oximetry (%) 98 01/09/17 09:00 Constitutional: Yes: Anxious, Obese Eyes: Yes: WNL HENT: Yes: WNL Neck: Yes: WNL Cardiovascular: Yes: Pulse Irregular, S1 (varies in intensity), S2 Respiratory: Yes: Diminished (left base) Gastrointestinal: Yes: Soft, Abdomen, Obese ...Rectal Exam: Yes: Deferred Genitourinary: No: Anuria Breast(s): Yes: WNL Musculoskeletal: Yes: Back Pain, Joint Swelling, Muscle Weakness Extremities: Yes: Cool Edema: Yes (markedly indurated ) Integumentary: Yes: Rash (diminished (near left surgical scar from chest tube)) Psychiatric: Yes: Other (depression) Labs: CBC, BMP 01/08/17 06:00 01/08/17 06:00 INR, PTT INR 2.95 (0.82-1.09) H 01/09/17 06:00 Abnormal Lab Results 01/09/17 06:00 PT with INR 33.20 H INR 2.95 H Problem List - Problems (1) A-fib Assessment/Plan: On diltiazem for HR. ECHO: normal LVEF; mild TR; trace-mild MR; mild biatrial enlargement. On warfarin; therapeutic INR. Code(s): I48.91 - UNSPECIFIED ATRIAL FIBRILLATION Qualifiers: (2) Cellulitis Code(s): L03.90 - CELLULITIS, UNSPECIFIED Qualifiers: Site of cellulitis: extremity Site of cellulitis of extremity: lower extremity Laterality: left Qualified Code(s): L03.116 - Cellulitis of left lower limb (3) Hypothyroid Assessment/Plan: TSH 1.17 (WNL). Code(s): E03.9 - HYPOTHYROIDISM, UNSPECIFIED (4) Lymphedema Code(s): I89.0 - LYMPHEDEMA, NOT ELSEWHERE CLASSIFIED (5) Abscess Code(s): L02.91 - CUTANEOUS ABSCESS, UNSPECIFIED (6) Anxiety and depression Code(s): F41.9 - ANXIETY DISORDER, UNSPECIFIED F32.9 - MAJOR DEPRESSIVE DISORDER, SINGLE EPISODE, UNSPECIFIED (7) Cancer of ovary Code(s): C56.9 - MALIGNANT NEOPLASM OF UNSPECIFIED OVARY Qualifiers: (8) Diabetes Code(s): E11.9 - TYPE 2 DIABETES MELLITUS WITHOUT COMPLICATIONS Qualifiers: Diabetes mellitus type: type 2 Diabetes mellitus complication status: without complication (9) HTN (hypertension) Code(s): I10 - ESSENTIAL (PRIMARY) HYPERTENSION Qualifiers: (10) Morbidly obese Code(s): E66.01 - MORBID (SEVERE) OBESITY DUE TO EXCESS CALORIES (11) Neutropenia Code(s): D70.9 - NEUTROPENIA, UNSPECIFIED (12) Pleural effusion Code(s): J90 - PLEURAL EFFUSION, NOT ELSEWHERE CLASSIFIED (13) SOB (shortness of breath) Code(s): R06.02 - SHORTNESS OF BREATH (14) Congestive heart failure Assessment/Plan: ECHO: normal LVEF; abnormal diastolic compliance; mild TR; trace-mild MR. Presently on diltiazem. Code(s): I50.9 - HEART FAILURE, UNSPECIFIED Qualifiers: Congestive heart failure type: combined Congestive heart failure chronicity: chronic Qualified Code(s): I50.42 - Chronic combined systolic (congestive) and diastolic (congestive) heart failure (15) Hypoalbuminemia Code(s): E88.09 - [facility] DISORDERS OF PLASMA-PROTEIN METABOLISM, NEC
--- NOTE | 2017-01-09 13:09 | CON.PULM ---
Consult Consult Specialty:: PULMONARY Referred by:: Dr. Miller Reason for Consultation:: chest wall collection - History of Present Illness Chief Complaint: chest wall erythema History of Present Illness: 61yo female with h/o metastatic ovarian ca on chemotherapy, h/o malignant effusion s/p pleur-x placement and removal, morbid obesity, DM, hypothyroidism, atrial fibrillation who was admitted with chest wall erythema being treated for cellulitis. Found to have a left chest wall collection on palpation, confimed on chest ultrasound where her previous chest tube was located. No further fevers , chills or sweats. Some dyspnea with exertion without cough or wheezing. - History Source History Provided By: Patient, Medical Record Limitations to Obtaining History: No Limitations - Past Medical History Cardio/Vascular: Yes: AFIB, HTN, Other (chronic lymphedema) Pulmonary: Yes: COPD, Other (recently had a chest tube removed). No: O2 Dependent Gastrointestinal: Yes: GERD ...: No Psych: Yes: Anxiety, Depression Endocrine: Yes: Diabetes Mellitus, Hyperthyroidism - Alcohol/Substance Use Hx Alcohol Use: No - Smoking History Smoking history: Never smoked Have you smoked in the past 12 months: No Aproximately how many cigarettes per day: 0 If you are a former smoker, when did you quit?: n - Social History Usual Living Arrangement: With Child ADL: Family Assistance History of Recent Travel: No Home Medications - Allergies Allergies/Adverse Reactions: Allergies Allergy/AdvReac Type Severity Reaction Status Date / Time No Known Allergies Allergy Verified 10/14/16 15:13 - Home Medications Home Medications: Ambulatory Orders Levothyroxine [Synthroid -] 75 mcg PO DAILY 10/17/12 Loratadine [Claritin -] 10 mg PO DAILY 10/17/12 Metformin HCl [Glucophage] 500 mg PO BID 10/17/12 [place]-3 Acid Ethyl Esters [Lovaza -] 1,000 mg PO TID 10/17/12 Insulin (Novolog) [Novolog Flexpen -] See Protocol SQ ACHS #1 pen 10/03/16 Ranitidine [Zantac -] 150 mg PO BID #30 tab 10/03/16 Insulin Aspart [Novolog Flexpen] 35 unit SQ BID 10/14/16 Potassium Chloride 10 meq PO DAILY 10/24/16 Diltiazem Cd [Cardizem Cd -] 300 mg PO DAILY 10/25/16 Amox-Tr/K Cl [Augmentin 875-125mg Tablet -] 1 tab PO BID@0800,1730 #10 tablet Glipizide 5 mg PO DAILY #60 tablet 10/31/16 Warfarin Na [Coumadin -] 3 mg PO DAILY #60 tablet 10/31/16 Bacitracin 14 gm TP BID #1 oint...g. 12/06/16 Furosemide [Lasix -] 40 mg PO DAILY 01/02/17 Montelukast Na [Singulair -] 10 mg PO HS 01/02/17 Family Disease History - Family Disease History Family Disease History: Diabetes: Mother, CA: Mother Review of Systems - Review of Systems Constitutional: denies: Chills, Fever Eyes: denies: Recent Change in Vision HENT: denies: Nasal Congestion, Throat Pain Neck: denies: Stiffness, Tenderness Cardiovascular: reports: Edema. denies: Chest Pain, Palpitations Respiratory: reports: SOB on Exertion. denies: Cough, Hemoptysis, Wheezing Gastrointestinal: denies: Abdominal Pain, Nausea, Vomiting Genitourinary: denies: Dysuria, Hematuria Neurological: denies: Dizziness, Headache Physical Exam Vital Sings: Vital Signs Temperature 97.8 F 01/09/17 10:00 Pulse Rate 91 H 01/09/17 10:00 Respiratory Rate 20 01/09/17 10:00 Blood Pressure 151/61 01/09/17 10:00 O2 Sat by Pulse Oximetry (%) 98 01/09/17 09:00 Constitutional: Yes: Calm Eyes: Yes: Conjunctiva Clear, EOM Intact HENT: Yes: Atraumatic, Normocephalic Neck: Yes: Supple, Trachea Midline Cardiovascular: Yes: Pulse Irregular Respiratory: Yes: Diminished (decreased breath sounds at the bases) ...Inspection: Yes: Other (palpable left wall collection, mild tenderness upon palpation) ...Clubbing: No Gastrointestinal: Yes: Normal Bowel Sounds, Soft, Abdomen, Obese. No: Tenderness Edema: Yes Neurological: Yes: Alert, Oriented Labs: CBC, BMP 01/08/17 06:00 01/08/17 06:00 Imaging - Results Ultrasound: Report Reviewed, Image Reviewed Problem List - Problems (1) Primary cancer of ovary with widespread metastatic disease Code(s): C56.9 - MALIGNANT NEOPLASM OF UNSPECIFIED OVARY C80.0 - DISSEMINATED MALIGNANT NEOPLASM, UNSPECIFIED (2) Pleural effusion Code(s): J90 - PLEURAL EFFUSION, NOT ELSEWHERE CLASSIFIED (3) Abscess Code(s): L02.91 - CUTANEOUS ABSCESS, UNSPECIFIED (4) A-fib Code(s): I48.91 - UNSPECIFIED ATRIAL FIBRILLATION Qualifiers: (5) Diabetes Code(s): E11.9 - TYPE 2 DIABETES MELLITUS WITHOUT COMPLICATIONS Qualifiers: Diabetes mellitus type: type 2 Diabetes mellitus complication status: without complication (6) HTN (hypertension) Code(s): I10 - ESSENTIAL (PRIMARY) HYPERTENSION Qualifiers: (7) Morbidly obese Code(s): E66.01 - MORBID (SEVERE) OBESITY DUE TO EXCESS CALORIES Assessment/Plan Metastatic Ovarian Ca with Lung Mets on Chemotherapy Malignant Pleural Effusion s/p pleur-x placement/removal Chest Wall Cellulitis Chest Wall Collection - r/o Abscess Morbid Obesity HTN DM Atrial Fibrillation - pt still receiving chemotherapy so would drain the chest wall collection via IR - send fluid for culture - continue antibiotics - rate controlled - continue anticoagulation Thank you for this consult Lico Love MD
--- NOTE | 2017-01-09 16:32 | CONSULT ---
Consult - text type - Consultation Consultation Note: Thoracic Surgery Consultation: 61F with metastatic ovarian cancer, afib, and obesity admitted with portacath infection. Treated with abx. No fever and white blood cell count. Mild erythema versus resolving hematoma noted in vast subcutaneous tissue near port from VATS pleurx that was removed over 2 months ago. Consult to assess this subcutaneous collection. No fevers. Mild tenderness in palpable area. Erythema is dull rather than shiny and could be resolving hematoma considering she is anticoagulated. U/S results reviewed. Imp/Plan: Abscess versus hematoma versus seroma: Agree with recommendations to needle aspirate and culture but since apparently approved melody needs no further management. I have spent greater than 40 minutes in obtaining the history physical of this patient, reviewing labs, and imaging. >50% was spent in counseling and coordination of care.
[2017-01-09] MEDS: WARFARIN NA 3 MG TABLET PO SCH (17:15)
[2017-01-10] MEDS: OMEGA-3 ACID ETHYL ESTERS (FATTY-ACIDS) 1 GM CAPSULE (FP) PO SCH ×2 (06:17→13:35)
[2017-01-10] MEDS: INSULIN SLIDING SCALE (NOVOLOG) 1 VIAL SQ SCH ×2 (06:18→11:37)
[2017-01-10] MEDS: LEVOTHYROXINE NA 75 MCG TABLET (FP) PO SCH (06:18)
[2017-01-10] MEDS: glipiZIDE 5 MG TABLET (FP) PO SCH (06:18)
[2017-01-10 08:17] LABS: INR 3.11 (0.82-1.09)
[2017-01-10 08:44] VITALS: BP 109/53; PULSE 84; TEMP 98
--- NOTE | 2017-01-10 09:51 | PN ---
Progress Note (short form) - Note Progress Note: Patient seen and examined Chart/labs/imaging reviewed. Last Vital Signs Temp Pulse Resp BP Pulse Ox 98.0 F 84 18 109/53 96 01/10/17 08:44 01/10/17 08:44 01/10/17 08:44 01/10/17 08:44 01/09/17 20:43 CBC, BMP 01/08/17 06:00 01/08/17 06:00 Current Medications Generic Name Dose Route Start Last Admin Trade Name Freq PRN Reason Stop Dose Admin Acetaminophen 650 mg 01/02/17 14:56 Tylenol - PO Q6H PRN FEVER OR PAIN Bupropion HCl 150 mg 01/09/17 11:30 01/09/17 14:00 Wellbutrin Xl - PO 150 mg DAILY [facility] Administration Cephalexin HCl 500 mg 01/06/17 22:00 01/09/17 22:03 Keflex - PO 500 mg BID [facility] Administration Diltiazem HCl 300 mg 01/02/17 15:00 01/09/17 09:49 Cardizem Cd - PO 300 mg DAILY [facility] Administration Furosemide 40 mg 01/09/17 11:23 Lasix - PO DAILY [facility] Glipizide 5 mg 01/02/17 15:00 01/10/17 06:18 Glucotrol - PO 5 mg DAILY@0700 [facility] Administration Insulin Aspart 1 vial 01/02/17 16:30 01/10/17 06:18 Novolog Vial Sliding Scale - SQ Not Given ACHS [facility] Protocol Levothyroxine Sodium 75 mcg 01/03/17 07:00 01/10/17 06:18 Synthroid - PO 75 mcg DAILY@0700 [facility] Administration Multi-Ingredient Lotion 1 applic 01/04/17 12:00 01/09/17 22:03 Eucerin (Large Jar) - TP 1 applic BID [facility] Administration [id number]-[id number] Ethyl Esters 1 gm 01/02/17 15:00 01/10/17 06:17 Lovaza - PO 1 gm TID [facility] Administration Ondansetron HCl 4 mg 01/05/17 17:46 01/08/17 11:39 Zofran Injection IVPB 4 mg Q8H PRN Administration NAUSEA Potassium Chloride 10 meq 01/03/17 10:00 01/09/17 09:49 K-Dur - PO 10 meq DAILY [facility] Administration Ranitidine HCl 150 mg 01/02/17 22:00 01/09/17 22:03 Zantac - PO 150 mg BID [facility] Administration Warfarin Sodium 3 mg 01/07/17 20:00 01/09/17 17:15 Coumadin - PO 3 mg DAILY@1800 [facility] Administration INR, PTT INR 3.11 (0.82-1.09) H 01/10/17 06:00 Constitutional: Yes:tearful Eyes: Yes: Conjunctiva Clear HENT: Yes: Atraumatic, Normocephalic Neck: Yes: Supple. No: Lymphadenopathy Cardiovascular: Yes: Regular Rate and Rhythm Respiratory: Yes: Regular, CTA Bilaterally, Other (decreased erythema, but a lump felt previous pleurex site, no fluctuance) Edema: Yes (unchanged lower extremity) Assessment/Plan: is a 61 year old patient whom we closely follow every week, for her metastatic ovarian ca, on weekly carbo/taxol, with new POD, change of therapy being discussed,now admitted with port site superficial infection, which is resolved was only a superficial infection -PO abx -CTS appreciated - discussed with , watchful waiting preferred -appreciate Psycholgy -INR is 3.1, need to hold coumadin today. -can be discharged with OP follow-up. She can follow-up in our office with on Sunday 01/14.
[2017-01-10] MEDS: RANITIDINE HCL 150 MG TABLET (FP) PO SCH (10:06)
[2017-01-10] MEDS: POTASSIUM CHLORIDE TABS 10 MEQ TABLET.ER (FP) PO SCH (10:06)
[2017-01-10] MEDS: CEPHALEXIN MONOHYDRATE 500 MG CAPSULE (UD) PO SCH (10:07)
[2017-01-10] MEDS: MINERAL OIL/PETROLAT/WATER TOPICAL CREAM 454 GM JAR TP SCH (10:08)
--- NOTE | 2017-01-10 10:18 | DS ---
Physical Examination Vital Signs: Vital Signs Temperature 98.0 F 01/10/17 08:44 Pulse Rate 84 01/10/17 08:44 Respiratory Rate 18 01/10/17 08:44 Blood Pressure 109/53 01/10/17 08:44 O2 Sat by Pulse Oximetry (%) 96 01/09/17 20:43 Constitutional: Yes: Well Nourished, No Distress, Calm Eyes: Yes: Conjunctiva Clear HENT: Yes: Atraumatic, Normocephalic Neck: Yes: Supple Cardiovascular: Yes: Regular Rate and Rhythm Respiratory: Yes: Regular, Diminished Gastrointestinal: Yes: WNL Labs: CBC, BMP 01/08/17 06:00 01/08/17 06:00 Discharge Summary Reason For Visit: MALIGNANT NEOPLASM OF UNSPECIFIED OVARY Current Active Problems A-fib (Acute) Acute renal insufficiency (Acute) Cellulitis (Acute) Depression, major, severe recurrence (Acute) Hypoalbuminemia (Acute) Supratherapeutic INR (Acute) Hypothyroid (Chronic) Lymphedema (Chronic) Hospital Course: 61 y/o patient with metastatic ovarian cancer , on weekly carbo/taxol ,admitted for port site skin infection,improved on antibiotics. switchjed to PO kepflex. She would need additional 5days of antibiotics post discharge. u/s lt. chest wall---fluid collection ---? infected collection vs hematoma, discussed with CTS /IR, as she is fair in her condition, and improved, watchful waiting recommended. Will need OP imaging after she completes the abx. Her INR was 3.1 on day of discharge. was advised to hold today and tomorrow and resume coumadin 3mg from friday. she will see on Sunday 01/14 and will also f/u with her PMD. Discussed with pt. Services to be re-instated upon dc. She will continue her home meds. Only new medication is the oral antibiotic. She was also seen by Psychologist during her stay in the hospital Condition: Good - Instructions Disposition: HOME - Home Medications Comprehensive Discharge Medication List: Ambulatory Orders Levothyroxine [Synthroid -] 75 mcg PO DAILY 10/17/12 Loratadine [Claritin -] 10 mg PO DAILY 10/17/12 Metformin HCl [Glucophage] 500 mg PO BID 10/17/12 [place]-3 Acid Ethyl Esters [Lovaza -] 1,000 mg PO TID 10/17/12 Insulin (Novolog) [Novolog Flexpen -] See Protocol SQ ACHS #1 pen 10/03/16 Ranitidine [Zantac -] 150 mg PO BID #30 tab 10/03/16 Insulin Aspart [Novolog Flexpen] 35 unit SQ BID 10/14/16 Potassium Chloride 10 meq PO DAILY 10/24/16 Diltiazem Cd [Cardizem Cd -] 300 mg PO DAILY 10/25/16 Amox-Tr/K Cl [Augmentin 875-125mg Tablet -] 1 tab PO BID@0800,1730 #10 tablet Glipizide 5 mg PO DAILY #60 tablet 10/31/16 Warfarin Na [Coumadin -] 3 mg PO DAILY #60 tablet 10/31/16 Bacitracin 14 gm TP BID #1 oint...g. 12/06/16 Furosemide [Lasix -] 40 mg PO DAILY 01/02/17 Montelukast Na [Singulair -] 10 mg PO HS 01/02/17 New medication: keflex 500mg po bid ( last dose would be on 01/14). will send to her pharmacy
--- NOTE | 2017-01-10 10:58 | PN ---
Progress Note (short form) - Note Progress Note: Pt seen/ examined comfortable all f/u noted being discharged home today Discussed with oncologist- Dr. Sharpe today Vital Signs Temp 98.0 F 01/10/17 08:44 Pulse 84 01/10/17 08:44 Resp 18 01/10/17 08:44 BP 109/53 01/10/17 08:44 Pulse Ox 96 01/09/17 20:43 Intake & Output 01/09/17 01/09/17 01/10/17 11:59 23:59 11:59 Intake Total 0 300 250 Balance 0 300 250 Intake: IV 0 0 SALINE LOCK 0 0 IVPB 0 0 Oral 300 250 Other: Voiding Method Toilet Toilet # Unmeasured Voids Void 2 3 Bowel Movement No Active Medications Acetaminophen (Tylenol -) 650 mg PO Q6H PRN PRN Reason: FEVER OR PAIN Bupropion HCl (Wellbutrin Xl -) 150 mg PO DAILY [facility] Last Admin: 01/10/17 10:06 Dose: 150 mg Cephalexin HCl (Keflex -) 500 mg PO BID [facility] Last Admin: 01/10/17 10:07 Dose: 500 mg Diltiazem HCl (Cardizem Cd -) 300 mg PO DAILY [facility] Last Admin: 01/10/17 10:07 Dose: 300 mg Furosemide (Lasix -) 40 mg PO DAILY [facility] Last Admin: 01/10/17 10:06 Dose: 40 mg Glipizide (Glucotrol -) 5 mg PO DAILY@0700 [facility] Last Admin: 01/10/17 06:18 Dose: 5 mg Insulin Aspart (Novolog Vial Sliding Scale -) 1 vial SQ ACHS [facility] PRN Reason: Protocol Last Admin: 01/10/17 06:18 Dose: Not Given Levothyroxine Sodium (Synthroid -) 75 mcg PO DAILY@0700 [facility] Last Admin: 01/10/17 06:18 Dose: 75 mcg Multi-Ingredient Lotion (Eucerin (Large Jar) -) 1 applic TP BID [facility] Last Admin: 01/10/17 10:08 Dose: 1 applic [id number] Ethyl Esters (Lovaza -) 1 gm PO TID [facility] Last Admin: 01/10/17 06:17 Dose: 1 gm Ondansetron HCl (Zofran Injection) 4 mg IVPB Q8H PRN PRN Reason: NAUSEA Last Admin: 01/08/17 11:39 Dose: 4 mg Potassium Chloride (K-Dur -) 10 meq PO DAILY [facility] Last Admin: 01/10/17 10:06 Dose: 10 meq Ranitidine HCl (Zantac -) 150 mg PO BID [facility] Last Admin: 01/10/17 10:06 Dose: 150 mg CBC, BMP 01/08/17 06:00 01/08/17 06:00 Physical Exam Constitutional: Yes: comfortable Cardiovascular: Yes: Pulse Irregular Respiratory: Yes: Diminished, at bases Gastrointestinal: Yes: Normal Bowel Sounds, Soft, Abdomen, Obese. No: Distention, Tenderness Edema: trace Neuro-- Aox3 - Psych- Somewhat depressed Assessment/Plan clinically stable denies suicidal/homicidal thoughts stable for d/c on po abx inr to be monitored as out pt. pt to follow with her specialists as advised. f/u in office next week. discussed with pt. Problem List - Problems (1) Cellulitis Code(s): L03.90 - CELLULITIS, UNSPECIFIED Qualifiers: Site of cellulitis: extremity Site of cellulitis of extremity: lower extremity Laterality: left Qualified Code(s): L03.116 - Cellulitis of left lower limb (2) Hypothyroid Code(s): E03.9 - HYPOTHYROIDISM, UNSPECIFIED (3) Anemia Code(s): D64.9 - ANEMIA, UNSPECIFIED (4) Diabetes Code(s): E11.9 - TYPE 2 DIABETES MELLITUS WITHOUT COMPLICATIONS Qualifiers: Diabetes mellitus type: type 2 Diabetes mellitus complication status: without complication (5) HTN (hypertension) Code(s): I10 - ESSENTIAL (PRIMARY) HYPERTENSION Qualifiers: (6) Morbidly obese Code(s): E66.01 - MORBID (SEVERE) OBESITY DUE TO EXCESS CALORIES (7) Primary cancer of ovary with widespread metastatic disease Code(s): C56.9 - MALIGNANT NEOPLASM OF UNSPECIFIED OVARY C80.0 - DISSEMINATED MALIGNANT NEOPLASM, UNSPECIFIED
--- NOTE | 2017-01-10 11:25 | PN ---
Progress Note (short form) - Note Progress Note: The patient was seen today. Her affect was euthymic and she still did not complain of any pain. With her permission, she was administered a guided imagery intervention. The patient stated that it was helpful and that she felt more relaxed after the treatment. In addition, her affect not only was euthymic , but she actually smiled a couple of times when humor was incorporated into the session. Ms. Nadia BrisenoRN, MS,Coordinator of the Palliative Care Team, had asked if she could provide the patient with a guided imagery tape for use over the weekend. I agreed as the patient indeed did benefit from today's guided imagery session. I will follow-up with the patient next Friday. Problem List - Problems (1) Depression, major, severe recurrence Code(s): F33.2 - MAJOR DEPRESSV DISORDER, RECURRENT SEVERE W/O PSYCH FEATURES
--- NOTE | 2017-01-10 13:33 | PN ---
Progress Note (short form) - Note Progress Note: PULMONARY CHART REVIEWED TREATED FOR PORTACATH INFECTION PRESENTLY APPEARS STABLE AND IS BEING DISCHARGED Amy SULLIVAN MD
== END 2017-01-10 13:59 | disposition home or self-care (01) | DRG 315 ==
LOC: JONCCHEMO 07:26 → J7W 12:19 → JONCCHEMO 19:10
PROVIDERS: ADMIT Internal Medicine Hematology & Oncology; ATTEND Internal Medicine Hematology & Oncology
DX: T82.7XXA Infection and inflammatory reaction due to other cardiac and vascular devices, implants and grafts, initial encounter (principal); L03.313 Cellulitis of chest wall; Z68.44 Body mass index [BMI] 60.0-69.9, adult; L02.213 Cutaneous abscess of chest wall; C56.9 Malignant neoplasm of unspecified ovary; C78.7 Secondary malignant neoplasm of liver and intrahepatic bile duct; C78.00 Secondary malignant neoplasm of unspecified lung; F33.2 Major depressive disorder, recurrent severe without psychotic features; Y92.098 Other place in other non-institutional residence as the place of occurrence of the external cause; Y84.8 Other medical procedures as the cause of abnormal reaction of the patient, or of later complication, without mention of misadventure at the time of the procedure; I48.91 Unspecified atrial fibrillation; E11.9 Type 2 diabetes mellitus without complications; E03.9 Hypothyroidism, unspecified; E66.01 Morbid (severe) obesity due to excess calories; J44.9 Chronic obstructive pulmonary disease, unspecified; Z79.84 Long term (current) use of oral hypoglycemic drugs; R19.09 Other intra-abdominal and pelvic swelling, mass and lump; R22.2 Localized swelling, mass and lump, trunk
CPT/HCPCS: 36415; 71020-TC; 71260-TC; 74177-TC; 76604-TC; 80053; 80076; 83735; 84443; 85025; 85027; 85610; 87040; 93005; 93010; 93306-TC; 93971; C1887; G0480

== ENCOUNTER → 2017-01-14 | Day surgery (SDC) | payer OTHER ==
[2017-01-14 10:53] VITALS: BP 120/60; PULSE 85; TEMP 98
[2017-01-14 10:59] LABS: BASOPHIL 1.3 % (0-2.0); EOSINOPHIL 0.5 % (0-4.5); MCHC 32.9 g/dl (32.0-36.0); MEAN CELL VOLUME 97.1 fl (80-96); MEAN PLT VOLUME 8.2 fl (7.5-11.1); NEUTROPHILS 67.5 % (42.8-82.8); PLATELET COUNT 131 K/MM3 (134-434); RDW 23.8 % (11.6-15.6); WHITE BLOOD COUNT 6.7 K/mm3 (4.0-10.0)
[2017-01-14 11:29] LABS: ALBUMIN 2.9 g/dl (3.4-5.0); ALK PHOS 131 U/L (45-117); ANION GAP 7 (8-16); BILIRUBIN,DIRECT 0.4 mg/dL (0.0-0.2); CALCIUM 8.9 mg/dL (8.5-10.1); CO2 28 mmol/L (21-32); CREATININE 0.8 mg/dL (0.55-1.02); GLUCOSE,RANDOM 115 mg/dL (74-106); MAGNESIUM 1.6 mg/dL (1.8-2.4); SGOT/AST 43 U/L (15-37); SGPT/ALT 14 U/L (12-78); TOT PROT 6.7 g/dl (6.4-8.2)
[2017-01-14 11:32] LABS: FERRITIN 511.605 ng/ml (6.9-282.5)
[2017-01-14 12:27] LABS: INR 2.2 (0.82-1.09); PROTHROMBIN TIME (PATIENT) 24.6 SEC (9.98-11.88)
[2017-01-16 06:07] LABS: SERUM IRON 57 ug/dL (27-139); TOTAL IRON BINDING CAPACITY 211 ug/dL (250-450); UIBC 154 ug/dL (118-369)
== END | disposition home or self-care (01) ==
LOC: JONCCHEMO 01-09 07:23 → JONCNONCHE 10:35
PROVIDERS: ATTEND Internal Medicine Hematology & Oncology
DX: Z53.8 Procedure and treatment not carried out for other reasons (principal)
CPT/HCPCS: 36415; 80053; 80076; 82728; 83540; 83550; 83735; 85025; 85610; 86304

== ENCOUNTER 2017-01-23 07:29 | Inpatient (IN) | payer OTHER ==
[2017-01-23] MEDS ORDERED: ONDANSETRON INJECTION 12 MG in SODIUM CHLORIDE 50 ML IVPB ONE (10:00)
[2017-01-23] MEDS ORDERED: SODIUM CHLORIDE IVPB ONE (10:00)
[2017-01-23] MEDS ORDERED: RANITIDINE IVPB ONE (10:00)
[2017-01-23] MEDS ORDERED: SODIUM CHLORIDE 250 ML IV ONE ×2 (10:00→12:00)
[2017-01-23] MEDS ORDERED: DEXAMETHASONE INJECTION 10 MG in SODIUM CHLORIDE 50 ML IVPB ONE (10:00)
[2017-01-23] MEDS ORDERED: DIPHENHYDRAMINE IVPB ONE (10:00)
[2017-01-23] MEDS ORDERED: PACLITAXEL 126 MG in SODIUM CHLORIDE 250 ML IVPB ONE (10:30)
[2017-01-23 11:01] LABS: BASOPHIL 0.8 % (0-2.0); EOSINOPHIL 1.6 % (0-4.5); MCH 32.1 pg (25.7-33.7); MCHC 32.9 g/dl (32.0-36.0); MEAN CELL VOLUME 97.4 fl (80-96); MEAN PLT VOLUME 8.4 fl (7.5-11.1); NEUTROPHILS 69.8 % (42.8-82.8); PLATELET COUNT 146 K/MM3 (134-434); RDW 19.9 % (11.6-15.6); WHITE BLOOD COUNT 6.2 K/mm3 (4.0-10.0)
[2017-01-23 11:30] LABS: ALBUMIN 2.9 g/dl (3.4-5.0); ANION GAP 8 (8-16); BILIRUBIN,DIRECT 0.4 mg/dL (0.0-0.2); BILIRUBIN,TOTAL 1.2 mg/dL (0.2-1.0); CALCIUM 9.2 mg/dL (8.5-10.1); CO2 29 mmol/L (21-32); CREATININE 0.9 mg/dL (0.55-1.02); GLUCOSE,RANDOM 119 mg/dL (74-106); MAGNESIUM 1.7 mg/dL (1.8-2.4); SGOT/AST 42 U/L (15-37); SGPT/ALT 16 U/L (12-78); TOT PROT 7.2 g/dl (6.4-8.2)
[2017-01-23 11:31] LABS: ALK PHOS 135 U/L (45-117)
[2017-01-23] MEDS ORDERED: SODIUM CHLORIDE 1,000 ML IV SCH (12:30)
[2017-01-23] MEDS: ONDANSETRON 4 MG/2 ML VIAL IVPB PRN (12:38)
[2017-01-23] MEDS ORDERED: ALBUTEROL SO4 0.083% IH SOL 2.5 MG/3 ML VIAL.NEB. NEB ONE (13:30)
[2017-01-23] MEDS ORDERED: POTASSIUM CHLORIDE TABS 20 MEQ TABLET.ER (FP) PO ONE (13:35)
[2017-01-23] MEDS ORDERED: traMADol HCL 50 MG TABLET PO PRN (14:43)
[2017-01-23] MEDS ORDERED: PORTA CATH FLUSH 10 ML IVPUSH ONE (15:53)
[2017-01-23] MEDS ORDERED: MAGNESIUM SULF 50% (8.12 MEQ/2 ML-1 GM VIAL) IVPB ONE (16:16)
[2017-01-23] MEDS ORDERED: GEMCITABINE HCL IV ONE (17:00)
[2017-01-23] MEDS ORDERED: SODIUM CHLORIDE IV ONE (17:00)
[2017-01-23] MEDS ORDERED: DEXAMETHASONE SOD PHOSPHATE 10 MG/1 ML VIAL IVPB ONE (17:30)
[2017-01-23] MEDS: WARFARIN NA 3 MG TABLET PO SCH (18:44)
[2017-01-23] MEDS: OMEGA-3 ACID ETHYL ESTERS (FATTY-ACIDS) 1 GM CAPSULE (FP) PO SCH (21:12)
[2017-01-23] MEDS ORDERED: ACETAMINOPHEN 325 MG TABLET (FP) PO ONE (21:15)
[2017-01-23] MEDS ORDERED: INSULIN (NOVOLOG) ASPART 100 UNITS/ML 10ML VIAL SQ ONE (21:45)
[2017-01-23] MEDS: traMADol HCL 50 MG TABLET PO PRN (23:54)
[2017-01-24] MEDS: traMADol HCL 50 MG TABLET PO PRN (05:30)
[2017-01-24] MEDS: LEVOTHYROXINE NA 75 MCG TABLET (FP) PO SCH (06:48)
[2017-01-24] MEDS: glipiZIDE 5 MG TABLET (FP) PO SCH (06:48)
[2017-01-24] MEDS: metFORMIN HCL 500 MG TABLET (FP) PO SCH ×2 (06:48→16:44)
[2017-01-24] MEDS: INSULIN (NOVOLOG MIX 70/30) 100 UNITS/ML MDV SQ SCH ×2 (06:50→16:45)
[2017-01-24] MEDS ORDERED: INSULIN (NOVOLOG MIX 70/30) 100 UNITS/ML MDV SQ ONE (06:53)
[2017-01-24 08:01] LABS: PROTHROMBIN TIME (PATIENT) 46.8 SEC (9.98-11.88)
[2017-01-24 08:09] LABS: BASOPHIL 0.3 % (0-2.0); MCH 31.9 pg (25.7-33.7); MCHC 32.8 g/dl (32.0-36.0); MEAN CELL VOLUME 97.2 fl (80-96); MEAN PLT VOLUME 8.7 fl (7.5-11.1); NEUTROPHILS 89.1 % (42.8-82.8); PLATELET COUNT 134 K/MM3 (134-434); RDW 20.1 % (11.6-15.6); WHITE BLOOD COUNT 4.7 K/mm3 (4.0-10.0)
[2017-01-24 08:19] LABS: INR 4.13 (0.82-1.09)
[2017-01-24 08:23] LABS: ALBUMIN 2.6 g/dl (3.4-5.0); ANION GAP 12 (8-16); BILIRUBIN,TOTAL 0.8 mg/dL (0.2-1.0); CO2 26 mmol/L (21-32); GLUCOSE,RANDOM 255 mg/dL (74-106); SGOT/AST 33 U/L (15-37); SGPT/ALT 15 U/L (12-78)
[2017-01-24 08:24] LABS: ALK PHOS 122 U/L (45-117); CREATININE 0.8 mg/dL (0.55-1.02); TOT PROT 6.9 g/dl (6.4-8.2)
[2017-01-24] MEDS ORDERED: PT OWN MED DRAWER 7, Y5N ONE (09:08)
[2017-01-24] MEDS: RANITIDINE HCL 150 MG TABLET (FP) PO SCH (09:11)
[2017-01-24] MEDS: TIOTROPIUM BROMIDE 18 MCG/INH (DEVICE W/ 5 CAPSULES) IH SCH (09:11)
[2017-01-24] MEDS: OMEGA-3 ACID ETHYL ESTERS (FATTY-ACIDS) 1 GM CAPSULE (FP) PO SCH ×2 (09:12→21:11)
[2017-01-24] MEDS: POLYETHYLENE GLYCOL 3350 119 GM BTL PO SCH (09:12)
[2017-01-24] MEDS: FUROSEMIDE 40 MG TABLET (FP) PO SCH (09:12)
[2017-01-24] MEDS: LORATADINE 10 MG TABLET PO SCH (09:12)
[2017-01-24] MEDS ORDERED: oxyCODONE HCL 5 MG TABLET PO PRN ×2 (09:32→09:33)
[2017-01-24] MEDS: ACETAMINOPHEN 325 MG TABLET (FP) PO PRN ×2 (09:40→15:39)
[2017-01-24] MEDS: INSULIN SLIDING SCALE (NOVOLOG) 1 VIAL SQ SCH ×3 (16:44→21:14)
[2017-01-24 17:19] VITALS: BMI 62.7
[2017-01-24] MEDS ORDERED: INSULIN (NOVOLOG) ASPART 100 UNITS/ML 10ML VIAL ONE (19:59)
--- NOTE | 2017-01-24 23:44 | HP ---
[facility] - Chief Complaint Chief Complaint: Patient with morbid obesity, high grade mullerian cancer with extensive lung mets.lt. pleural mets, peritoneal implants. CA 125 risingPatient with pain LT. chest and LLq abdomen. CT abdomen worsening peritoneal implants. Switched chemotherapy to gemar C1 D2. PAtient with pain Lt. lower chest and Lt. lower quadrant of abdomen History Source: Patient Limitations to Obtaining History: No Limitations - Past Medical History Allergies/Adverse Reactions: Allergies Allergy/AdvReac Type Severity Reaction Status Date / Time hydromorphone HCl AdvReac Severe Verified 01/25/17 05:56 [From Dilaudid] oxycodone AdvReac Severe Verified 01/24/17 19:39 Cardiovascular: Yes: AFIB, HTN, Other (chronic lymphedema) Pulmonary: Yes: COPD, Other (recently had a chest tube removed). No: O2 Dependent Gastrointestinal: Yes: GERD Heme/Onc: Yes: Anemia, Other Endocrine: Yes: Diabetes Mellitus, Hyperthyroidism - Current Medications Current Medications: Home Medications Medication Instructions Recorded Levothyroxine [Synthroid -] 75 mcg PO DAILY 10/17/12 Loratadine [Claritin -] 10 mg PO DAILY 10/17/12 Metformin HCl [Glucophage] 500 mg PO BID 10/17/12 [place]-3 Acid Ethyl Esters [Lovaza 1,000 mg PO TID 10/17/12 -] Insulin (Novolog) [Novolog Flexpen See Protocol SQ ACHS #1 pen 10/03/16 -] Ranitidine [Zantac -] 150 mg PO BID #30 tab 10/03/16 Insulin Aspart [Novolog Flexpen] 35 unit SQ BID 10/14/16 Potassium Chloride 10 meq PO DAILY 10/24/16 Diltiazem Cd [Cardizem Cd -] 300 mg PO DAILY 10/25/16 Amox-Tr/K Cl [Augmentin 875-125mg 1 tab PO BID@0800,1730 #10 tablet 10/30/16 Tablet -] Glipizide 5 mg PO DAILY #60 tablet 10/31/16 Warfarin Na [Coumadin -] 3 mg PO DAILY #60 tablet 10/31/16 Bacitracin 14 gm TP BID #1 oint...g. 12/06/16 Furosemide [Lasix -] 40 mg PO DAILY 01/02/17 Montelukast Na [Singulair -] 10 mg PO HS 01/02/17 Satellite Physical Exam - Physical Examination Vital Signs: Vital Signs Period Temp Pulse Resp BP Sys/Dinero Pulse Ox Last 24 Hr 97.3 F-97.6 F 74-84 18-22 97-134/57-72 97-97 General Appearance: Obese Lung: Clear to auscultation, Other (decreased Lt. lung base) Abdomen: Soft, No tenderness, Normal bowel sounds Extremities: Other (lymphedema) Neurological: Intact Satellite Impression/Plan - Impression/Plan Impression: Metastatic high grade mullerian cancer. On gemar. Progressing disease. Pain control. Has itching with oxycodone. will try dilaudid prn. lidoderm patch
[2017-01-25] MEDS: ACETAMINOPHEN 325 MG TABLET (FP) PO PRN ×2 (00:27→20:02)
[2017-01-25] MEDS ORDERED: PT OWN MED DRAWER 7, Y5N ONE ×2 (05:20→10:24)
[2017-01-25] MEDS: LEVOTHYROXINE NA 75 MCG TABLET (FP) PO SCH (06:45)
[2017-01-25] MEDS: INSULIN SLIDING SCALE (NOVOLOG) 1 VIAL SQ SCH ×4 (06:45→22:11)
[2017-01-25] MEDS: metFORMIN HCL 500 MG TABLET (FP) PO SCH ×2 (06:45→17:47)
[2017-01-25] MEDS: INSULIN (NOVOLOG MIX 70/30) 100 UNITS/ML MDV SQ SCH ×2 (06:46→17:47)
[2017-01-25] MEDS: glipiZIDE 5 MG TABLET (FP) PO SCH (06:46)
[2017-01-25] MEDS ORDERED: INSULIN (NOVOLOG MIX 70/30) 100 UNITS/ML MDV SQ ONE (06:58)
[2017-01-25 07:31] LABS: BASOPHIL 0.1 % (0-2.0); EOSINOPHIL 0.1 % (0-4.5); MCH 32.1 pg (25.7-33.7); MCHC 32.9 g/dl (32.0-36.0); MEAN CELL VOLUME 97.7 fl (80-96); MEAN PLT VOLUME 8.9 fl (7.5-11.1); NEUTROPHILS 86.8 % (42.8-82.8); PLATELET COUNT 157 K/MM3 (134-434); RDW 19.6 % (11.6-15.6); WHITE BLOOD COUNT 7.5 K/mm3 (4.0-10.0)
[2017-01-25 07:44] LABS: PROTHROMBIN TIME (PATIENT) 60.3 SEC (9.98-11.88)
[2017-01-25 07:55] LABS: INR 5.3 (0.82-1.09)
[2017-01-25 09:22] LABS: ALBUMIN 2.8 g/dl (3.4-5.0); ALK PHOS 118 U/L (45-117); ANION GAP 10 (8-16); BILIRUBIN,TOTAL 0.5 mg/dL (0.2-1.0); CALCIUM 9.3 mg/dL (8.5-10.1); CO2 27 mmol/L (21-32); CREATININE 0.9 mg/dL (0.55-1.02); GLUCOSE,RANDOM 126 mg/dL (74-106); SGOT/AST 46 U/L (15-37); SGPT/ALT 19 U/L (12-78); TOT PROT 7.1 g/dl (6.4-8.2)
[2017-01-25] MEDS: LORATADINE 10 MG TABLET PO SCH (10:29)
[2017-01-25] MEDS: FUROSEMIDE 40 MG TABLET (FP) PO SCH (10:29)
[2017-01-25] MEDS: LIDOCAINE 5% TOPICAL PATCH TP SCH (10:29)
[2017-01-25] MEDS: OMEGA-3 ACID ETHYL ESTERS (FATTY-ACIDS) 1 GM CAPSULE (FP) PO SCH ×2 (10:29→22:11)
[2017-01-25] MEDS: RANITIDINE HCL 150 MG TABLET (FP) PO SCH (10:30)
[2017-01-25] MEDS: POLYETHYLENE GLYCOL 3350 119 GM BTL PO SCH (10:31)
[2017-01-25] MEDS: TIOTROPIUM BROMIDE 18 MCG/INH (DEVICE W/ 5 CAPSULES) IH SCH (10:31)
--- NOTE | 2017-01-25 11:44 | PN ---
Progress Note (short form) - Note Progress Note: Patient seen and examined. continues to complain of pain and now itching. O/E General Appearance: Obese Lung: Clear to auscultation, Other (decreased Lt. lung base) Skin: itching excoriations. Abdomen: Soft, No tenderness, Normal bowel sounds Extremities: Other (lymphedema) Neurological: Intact Temp Pulse Resp BP Pulse Ox 97.2 F L 80 18 111/58 97 01/25/17 10:32 01/25/17 10:32 01/25/17 10:32 01/25/17 10:32 01/24/17 21:00 Current Medications Generic Name Dose Route Start Last Admin Trade Name Freq PRN Reason Stop Dose Admin Acetaminophen 325 mg 01/24/17 09:32 01/24/17 09:40 Tylenol - PO 325 mg Q6H PRN Administration PAIN Acetaminophen 650 mg 01/24/17 09:33 01/25/17 00:27 Tylenol - PO 650 mg Q6H PRN Administration PAIN Bupropion HCl 150 mg 01/24/17 10:00 01/25/17 10:29 Wellbutrin Xl - PO 150 mg DAILY VIRGILIO Administration Diltiazem HCl 300 mg 01/24/17 10:00 01/25/17 10:30 Cardizem Cd - PO 300 mg DAILY VIRGILIO Administration Furosemide 40 mg 01/24/17 10:00 01/25/17 10:29 Lasix - PO 40 mg DAILY VIRGILIO Administration Glipizide 5 mg 01/24/17 07:00 01/25/17 06:46 Glucotrol - PO 5 mg DAILY@0700 VIRGILIO Administration Insulin Aspart 35 units 01/24/17 07:00 01/25/17 06:46 Novolog Mix 70/30 Vial SQ 35 units BIDAC VIRGILIO Administration Insulin Aspart 1 vial 01/24/17 16:45 01/25/17 06:45 Novolog Vial Sliding Scale - SQ Not Given ACHS [facility] Protocol Levothyroxine Sodium 75 mcg 01/24/17 07:00 01/25/17 06:45 Synthroid - PO 75 mcg DAILY@0700 VIRGILIO Administration Lidocaine 1 patch 01/25/17 10:00 01/25/17 10:29 Lidoderm Patch - TP 1 patch DAILY VIRGILIO Administration Loratadine 10 mg 01/24/17 10:00 01/25/17 10:29 Claritin - PO 10 mg DAILY VIRGILIO Administration Metformin HCl 500 mg 01/24/17 07:00 01/25/17 06:45 Glucophage - PO 500 mg BIDAC VIRGILIO Administration Miscellaneous 1 each 01/25/17 22:00 Lidoderm Patch Removal MC DAILY@2200 VIRGILIO Xgzag-[id number]-[id number] Ethyl Esters 1 gm 01/23/17 22:00 01/25/17 10:29 Lovaza - PO 1 gm BID VIRGILIO Administration Ondansetron HCl 8 mg 01/23/17 12:21 01/23/17 12:38 Zofran Injection IVPB 8 mg Q12H PRN Administration NAUSEA AND/OR VOMITING Polyethylene Glycol 17 gm 01/24/17 10:00 01/25/17 10:31 Miralax (For Daily Use) - PO 17 gm DAILY VIRGILIO Administration Ranitidine HCl 150 mg 01/24/17 10:00 01/25/17 10:30 Zantac - PO 150 mg DAILY VIRGILIO Administration Tiotropium [place] 1 puff 01/24/17 10:00 01/25/17 10:31 Spiriva - IH 1 puff DAILY VIRGILIO Administration Tramadol HCl 50 mg 01/25/17 11:19 Ultram - PO Q8H PRN PAIN Warfarin Sodium 3 mg 01/23/17 18:00 01/23/17 18:44 Coumadin - PO 3 mg DAILY@1800 VIRGILIO Administration CBC, BMP 01/25/17 06:00 01/25/17 06:40 INR, PTT INR 5.30 (0.82-1.09) H* 01/25/17 06:00 Assessment/Plan: Metastatic high grade mullerian cancer. is admitted for pain control Most recently started On gemar. Today is C1D3 For Pain control. Has itching with oxycodone. will try dilaudid prn did not tolerate dilaudid, c/w lidoderm patch will give Ultram for now Pain management consult continues to itch , topical eucerin, s/p benadryl, will give one dose of atarax Pt on coumadin, supratherapeutic INR. hold coumadin today, re-check in the am communicated with OSKAR
[2017-01-25] MEDS: traMADol HCL 50 MG TABLET PO PRN ×2 (15:13→23:21)
[2017-01-25] MEDS ORDERED: INSULIN (NOVOLOG) ASPART 100 UNITS/ML 10ML VIAL ONE (20:50)
--- NOTE | 2017-01-25 21:50 | CONSULT ---
Consult Consult Specialty:: pain medicine Referred by:: dr jennings Reason for Consultation:: back pain - History of Present Illness Chief Complaint: back pain History of Present Illness: 61 year old woman with a history of metastatic ovarian cancer CUrrently with severe pain in lower back and mid back CT scan reviewed- degenerative changes- no signs of metastatic lesions Pain score 9/10 Patient with significant itchiness after taking opioids - Past Medical History Cardio/Vascular: Yes: AFIB, HTN, Other (chronic lymphedema) Pulmonary: Yes: COPD, Other (recently had a chest tube removed). No: O2 Dependent Gastrointestinal: Yes: GERD Endocrine: Yes: Diabetes Mellitus, Hyperthyroidism - Alcohol/Substance Use Hx Alcohol Use: No - Smoking History Smoking history: Never smoked Have you smoked in the past 12 months: No Aproximately how many cigarettes per day: 0 If you are a former smoker, when did you quit?: n - Social History Usual Living Arrangement: With Child ADL: Family Assistance History of Recent Travel: No Home Medications - Allergies Allergies/Adverse Reactions: Allergies Allergy/AdvReac Type Severity Reaction Status Date / Time hydromorphone HCl AdvReac Severe Verified 01/25/17 05:56 [From Dilaudid] oxycodone AdvReac Severe Verified 01/24/17 19:39 - Home Medications Home Medications: Ambulatory Orders Levothyroxine [Synthroid -] 75 mcg PO DAILY 10/17/12 Loratadine [Claritin -] 10 mg PO DAILY 10/17/12 Metformin HCl [Glucophage] 500 mg PO BID 10/17/12 [place]-3 Acid Ethyl Esters [Lovaza -] 1,000 mg PO TID 10/17/12 Insulin (Novolog) [Novolog Flexpen -] See Protocol SQ ACHS #1 pen 10/03/16 Ranitidine [Zantac -] 150 mg PO BID #30 tab 10/03/16 Insulin Aspart [Novolog Flexpen] 35 unit SQ BID 10/14/16 Potassium Chloride 10 meq PO DAILY 10/24/16 Diltiazem Cd [Cardizem Cd -] 300 mg PO DAILY 10/25/16 Amox-Tr/K Cl [Augmentin 875-125mg Tablet -] 1 tab PO BID@0800,1730 #10 tablet Glipizide 5 mg PO DAILY #60 tablet 10/31/16 Warfarin Na [Coumadin -] 3 mg PO DAILY #60 tablet 10/31/16 Bacitracin 14 gm TP BID #1 oint...g. 12/06/16 Furosemide [Lasix -] 40 mg PO DAILY 01/02/17 Montelukast Na [Singulair -] 10 mg PO HS 01/02/17 Family Disease History - Family Disease History Family Disease History: Diabetes: Mother, CA: Mother Physical Exam Vital Signs: Vital Signs Temperature 97.9 F 01/25/17 17:15 Pulse Rate 83 01/25/17 17:15 Respiratory Rate 20 01/25/17 17:15 Blood Pressure 105/65 01/25/17 17:15 O2 Sat by Pulse Oximetry (%) 97 01/24/17 21:00 Musculoskeletal: Yes: Back Pain Labs: CBC, BMP 01/25/17 06:00 01/25/17 06:40 Assessment/Plan Metastatic ovarian cancer Back pain secondary to degenerative changes Obesity 1. Since patient has significant itching to opioids would prefer non opioid pain meds - can continue tramadol prn pain - continue tylenol, and lidoderm patches - consider muscle relaxant (flexeril 5mg PO q12h prn pain) - consider neuropathic agent (gabapentin 100mg PO q8h) 2. Follow up prn
[2017-01-25] MEDS: MINERAL OIL/PETROLAT/WATER TOPICAL CREAM 113 GM JAR TP SCH (22:12)
[2017-01-25] MEDS: LIDOCAINE PATCH REMOVAL MC SCH (22:12)
[2017-01-26] MEDS: INSULIN SLIDING SCALE (NOVOLOG) 1 VIAL SQ SCH ×4 (06:47→21:23)
[2017-01-26] MEDS: glipiZIDE 5 MG TABLET (FP) PO SCH (06:49)
[2017-01-26] MEDS: INSULIN (NOVOLOG MIX 70/30) 100 UNITS/ML MDV SQ SCH ×2 (06:49→16:49)
[2017-01-26] MEDS: LEVOTHYROXINE NA 75 MCG TABLET (FP) PO SCH (06:50)
[2017-01-26] MEDS: metFORMIN HCL 500 MG TABLET (FP) PO SCH ×2 (06:50→16:42)
[2017-01-26 08:12] LABS: MCH 31.9 pg (25.7-33.7); MCHC 32.6 g/dl (32.0-36.0); MEAN CELL VOLUME 97.7 fl (80-96); MEAN PLT VOLUME 8.5 fl (7.5-11.1); PLATELET COUNT 137 K/MM3 (134-434); RDW 19.9 % (11.6-15.6); WHITE BLOOD COUNT 6.6 K/mm3 (4.0-10.0)
[2017-01-26] MEDS: traMADol HCL 50 MG TABLET PO PRN ×2 (08:12→19:10)
[2017-01-26 08:14] LABS: ALBUMIN 2.7 g/dl (3.4-5.0); ANION GAP 7 (8-16); BILIRUBIN,TOTAL 0.7 mg/dL (0.2-1.0); CO2 30 mmol/L (21-32); CREATININE 0.8 mg/dL (0.55-1.02); GLUCOSE,RANDOM 94 mg/dL (74-106); SGOT/AST 54 U/L (15-37); SGPT/ALT 25 U/L (12-78)
[2017-01-26 08:18] LABS: ALK PHOS 107 U/L (45-117); TOT PROT 6.7 g/dl (6.4-8.2)
[2017-01-26 09:14] LABS: INR 5.44 (0.82-1.09)
[2017-01-26] MEDS ORDERED: PT OWN MED DRAWER 7, Y5N ONE (10:21)
[2017-01-26] MEDS: FUROSEMIDE 40 MG TABLET (FP) PO SCH (10:23)
[2017-01-26] MEDS: RANITIDINE HCL 150 MG TABLET (FP) PO SCH (10:23)
[2017-01-26] MEDS: LORATADINE 10 MG TABLET PO SCH (10:24)
[2017-01-26] MEDS: LIDOCAINE 5% TOPICAL PATCH TP SCH (10:24)
[2017-01-26] MEDS: OMEGA-3 ACID ETHYL ESTERS (FATTY-ACIDS) 1 GM CAPSULE (FP) PO SCH ×2 (10:24→21:21)
[2017-01-26] MEDS: POLYETHYLENE GLYCOL 3350 119 GM BTL PO SCH (10:27)
[2017-01-26] MEDS: MINERAL OIL/PETROLAT/WATER TOPICAL CREAM 113 GM JAR TP SCH ×2 (10:30→21:22)
--- NOTE | 2017-01-26 12:47 | PN ---
Progress Note (short form) - Note Progress Note: Patient seen and examined. itching improved seen by pain management. has some bruises in the lower extremity. O/E General Appearance: Obese Lung: Clear to auscultation, Other (decreased Lt. lung base) Skin: itching excoriations. Abdomen: Soft, No tenderness, Normal bowel sounds Extremities: Other (lymphedema), some bruises seen in the lower Neurological: Intact Last Vital Signs Temp Pulse Resp BP Pulse Ox 98.1 F 91 H 18 126/71 98 01/26/17 10:08 01/26/17 10:08 01/26/17 10:08 01/26/17 10:08 01/25/17 21:00 01/26/17 06:00 01/26/17 06:00 Current Medications Generic Name Dose Route Start Last Admin Trade Name Freq PRN Reason Stop Dose Admin Acetaminophen 325 mg 01/24/17 09:32 01/24/17 09:40 Tylenol - PO 325 mg Q6H PRN Administration PAIN Acetaminophen 650 mg 01/24/17 09:33 01/25/17 20:02 Tylenol - PO 650 mg Q6H PRN Administration PAIN Bupropion HCl 150 mg 01/24/17 10:00 01/26/17 10:24 Wellbutrin Xl - PO 150 mg DAILY VIRGILIO Administration Diltiazem HCl 300 mg 01/24/17 10:00 01/26/17 10:23 Cardizem Cd - PO 300 mg DAILY VIRGILIO Administration Furosemide 40 mg 01/24/17 10:00 01/26/17 10:23 Lasix - PO 40 mg DAILY VIRGILIO Administration Glipizide 5 mg 01/24/17 07:00 01/26/17 06:49 Glucotrol - PO 5 mg DAILY@0700 VIRGILIO Administration Insulin Aspart 35 units 01/24/17 07:00 01/26/17 06:49 Novolog Mix 70/30 Vial SQ Not Given BIDAC VIRGILIO Insulin Aspart 1 vial 01/24/17 16:45 01/26/17 06:47 Novolog Vial Sliding Scale - SQ Not Given ACHS [facility] Protocol Levothyroxine Sodium 75 mcg 01/24/17 07:00 01/26/17 06:50 Synthroid - PO 75 mcg DAILY@0700 VIRGILIO Administration Lidocaine 1 patch 01/25/17 10:00 01/26/17 10:24 Lidoderm Patch - TP 1 patch DAILY VIRGILIO Administration Loratadine 10 mg 01/24/17 10:00 01/26/17 10:24 Claritin - PO 10 mg DAILY VIRGILIO Administration Metformin HCl 500 mg 01/24/17 07:00 01/26/17 06:50 Glucophage - PO 500 mg BIDAC VIRGILIO Administration Miscellaneous 1 each 01/25/17 22:00 01/25/17 22:12 Lidoderm Patch Removal MC 1 each DAILY@2200 VIRGILIO Administration Multi-Ingredient Lotion 1 applic 01/25/17 22:00 01/26/17 10:30 Eucerin (Small Jar) - TP Not Given BID VIRGILIO Voyve-4-Vlsr Ethyl Esters 1 gm 01/23/17 22:00 01/26/17 10:24 Lovaza - PO 1 gm BID VIRGILIO Administration Ondansetron HCl 8 mg 01/23/17 12:21 01/23/17 12:38 Zofran Injection IVPB 8 mg Q12H PRN Administration NAUSEA AND/OR VOMITING Polyethylene Glycol 17 gm 01/24/17 10:00 01/26/17 10:27 Miralax (For Daily Use) - PO 17 gm DAILY VIRGILIO Administration Ranitidine HCl 150 mg 01/24/17 10:00 01/26/17 10:23 Zantac - PO 150 mg DAILY VIRGILIO Administration Tiotropium [place] 1 puff 01/24/17 10:00 01/25/17 10:31 Spiriva - IH 1 puff DAILY VIRGILIO Administration Tramadol HCl 50 mg 01/25/17 11:19 01/26/17 08:12 Ultram - PO 50 mg Q8H PRN Administration PAIN Warfarin Sodium 3 mg 01/23/17 18:00 01/23/17 18:44 Coumadin - PO 3 mg DAILY@1800 VIRGILIO Administration Assessment/Plan: Metastatic high grade mullerian cancer. is admitted for pain control Most recently started On gemar. Today is C1D4. counts good c/w Ultram prn for now Lidocaine patch Appreciate pain management. Patient doesn't want Lyrica/gabapentin Pt on coumadin, supratherapeutic INR. hold coumadin today again, re-check. ( blood draw was from periphery). close monitoring on the bruises in the LE post itching and in the setting of supratherapeutic INR. dietary advised re-enforced. communicated with OSKAR
[2017-01-26] MEDS ORDERED: CYCLOBENZAPRINE HCL 10 MG TABLET (FP) PO PRN (14:06)
[2017-01-26 14:17] LABS: PROTHROMBIN TIME (PATIENT) 57.3 SEC (9.98-11.88)
[2017-01-26 14:19] LABS: ACTIVATED PTT 43.6 SECONDS (26.9-34.4)
[2017-01-26 14:29] LABS: INR 5.04 (0.82-1.09)
[2017-01-26] MEDS: TIOTROPIUM BROMIDE 18 MCG/INH (DEVICE W/ 5 CAPSULES) IH SCH (15:35)
[2017-01-26] MEDS: ALBUTEROL SO4 0.083% IH SOL 2.5 MG/3 ML VIAL.NEB. NEB SCH (21:14)
[2017-01-26] MEDS ORDERED: ALBUTEROL SO4 2 MG TABLET PO SCH (22:00)
[2017-01-26] MEDS: LIDOCAINE PATCH REMOVAL MC SCH (23:19)
[2017-01-27] MEDS: ACETAMINOPHEN 325 MG TABLET (FP) PO PRN ×2 (00:13→11:31)
[2017-01-27] MEDS: traMADol HCL 50 MG TABLET PO PRN (04:42)
[2017-01-27] MEDS: ALBUTEROL SO4 0.083% IH SOL 2.5 MG/3 ML VIAL.NEB. NEB SCH ×2 (06:25→14:25)
[2017-01-27] MEDS: glipiZIDE 5 MG TABLET (FP) PO SCH (06:46)
[2017-01-27] MEDS: LEVOTHYROXINE NA 75 MCG TABLET (FP) PO SCH (06:46)
[2017-01-27] MEDS: metFORMIN HCL 500 MG TABLET (FP) PO SCH ×2 (06:46→17:51)
[2017-01-27] MEDS: INSULIN SLIDING SCALE (NOVOLOG) 1 VIAL SQ SCH ×4 (06:48→22:40)
[2017-01-27] MEDS: INSULIN (NOVOLOG MIX 70/30) 100 UNITS/ML MDV SQ SCH ×2 (06:48→17:51)
[2017-01-27] MEDS ORDERED: INSULIN (NOVOLOG) ASPART 100 UNITS/ML 10ML VIAL ONE (07:14)
[2017-01-27] MEDS ORDERED: PT OWN MED DRAWER 7, Y5N ONE ×2 (07:15→09:03)
[2017-01-27 08:01] LABS: MCH 32.3 pg (25.7-33.7); MCHC 32.9 g/dl (32.0-36.0); MEAN CELL VOLUME 98.1 fl (80-96); MEAN PLT VOLUME 8.8 fl (7.5-11.1); PLATELET COUNT 127 K/MM3 (134-434); RDW 19.5 % (11.6-15.6); WHITE BLOOD COUNT 10.8 K/mm3 (4.0-10.0)
[2017-01-27 08:28] LABS: INR 3.12 (0.82-1.09); PROTHROMBIN TIME (PATIENT) 35.1 SEC (9.98-11.88)
[2017-01-27 08:57] LABS: ALBUMIN 2.6 g/dl (3.4-5.0); ANION GAP 11 (8-16); CALCIUM 8.9 mg/dL (8.5-10.1); CO2 28 mmol/L (21-32); CREATININE 0.8 mg/dL (0.55-1.02); GLUCOSE,RANDOM 128 mg/dL (74-106); SGOT/AST 59 U/L (15-37); SGPT/ALT 31 U/L (12-78)
[2017-01-27 08:59] LABS: ALK PHOS 109 U/L (45-117); BILIRUBIN,TOTAL 1.4 mg/dL (0.2-1.0); TOT PROT 6.5 g/dl (6.4-8.2)
[2017-01-27] MEDS: OMEGA-3 ACID ETHYL ESTERS (FATTY-ACIDS) 1 GM CAPSULE (FP) PO SCH ×2 (09:06→23:00)
[2017-01-27] MEDS: LORATADINE 10 MG TABLET PO SCH (09:07)
[2017-01-27] MEDS: FUROSEMIDE 40 MG TABLET (FP) PO SCH (09:08)
[2017-01-27] MEDS: RANITIDINE HCL 150 MG TABLET (FP) PO SCH (09:08)
[2017-01-27] MEDS: guaiFENesin/D-M SUGAR-FREE/ACLHOL-FREE 118 ML BOTTLE PO PRN (09:08)
[2017-01-27] MEDS: MINERAL OIL/PETROLAT/WATER TOPICAL CREAM 113 GM JAR TP SCH (09:09)
[2017-01-27] MEDS: TIOTROPIUM BROMIDE 18 MCG/INH (DEVICE W/ 5 CAPSULES) IH SCH (09:10)
[2017-01-27] MEDS: POLYETHYLENE GLYCOL 3350 119 GM BTL PO SCH (09:12)
[2017-01-27] MEDS: LIDOCAINE 5% TOPICAL PATCH TP SCH (09:18)
[2017-01-27] MEDS: ONDANSETRON 4 MG/2 ML VIAL IVPB PRN (12:46)
[2017-01-27] MEDS ORDERED: traMADol HCL 50 MG TABLET PO PRN (13:32)
[2017-01-27] MEDS ORDERED: SODIUM CHLORIDE 1,000 ML IV SCH (15:00)
[2017-01-27] MEDS: WARFARIN NA 3 MG TABLET PO SCH (17:10)
[2017-01-27] MEDS ORDERED: VANCOMYCIN 1,000 MG in DEXTROSE 5%-WATER - 250 ML IVPB ONE (18:49)
--- NOTE | 2017-01-27 20:23 | PN ---
Progress Note (short form) - Note Progress Note: Patient seen and examined Lethargic yessid weak Oriented in name, place. person. answering questions appropriately worsening cough Last Vital Signs Temp Pulse Resp BP Pulse Ox 97.7 F 94 H 18 103/60 98 01/27/17 18:10 01/27/17 18:10 01/27/17 18:10 01/27/17 18:10 01/26/17 21:00 Cor: RSR, No murmurs, No gallops Lungs: decreased left base Abd: Soft, Normal bowel sounds, No organomegaly Ext:lymphedema Abnormal Lab Results 01/27/17 01/27/17 01/27/17 07:00 07:00 07:00 WBC 10.8 H D RBC 2.94 L Hgb 9.5 L Hct 28.8 L MCV 98.1 H RDW 19.5 H Plt Count 127 L PT with INR 35.10 H INR 3.12 H D Sodium 135 L Chloride 96 L Random Glucose 128 H D Total Bilirubin 1.4 H D AST 59 H Albumin 2.6 L Active Medications Generic Name Dose Route Start Last Admin Trade Name Freq PRN Reason Stop Dose Admin Acetaminophen 325 mg 01/24/17 09:32 01/24/17 09:40 Tylenol - PO 325 mg Q6H PRN Administration PAIN Acetaminophen 650 mg 01/24/17 09:33 01/27/17 11:31 Tylenol - PO 650 mg Q6H PRN Administration PAIN Albuterol Sulfate 1 amp 01/28/17 00:00 01/27/17 23:05 Ventolin 0.042trength) - NEB 1 amp QIDR VIRGILIO Administration Bupropion HCl 150 mg 01/24/17 10:00 01/27/17 09:06 Wellbutrin Xl - PO 150 mg DAILY VIRGILIO Administration Diltiazem HCl 300 mg 01/24/17 10:00 01/27/17 09:07 Cardizem Cd - PO 300 mg DAILY VIRGILIO Administration Furosemide 40 mg 01/24/17 10:00 01/27/17 09:08 Lasix - PO 40 mg DAILY VIRGILIO Administration Glipizide 5 mg 01/24/17 07:00 01/27/17 06:46 Glucotrol - PO 5 mg DAILY@0700 VIRGILIO Administration Guaifenesin 5 ml 01/26/17 20:29 01/27/17 09:08 Diabetic Tussin Dm - PO 5 ml Q6H PRN Administration COUGH Sodium Chloride 1,000 mls @ 60 mls/hr 01/27/17 15:00 01/27/17 15:31 Normal Saline - IV 01/28/17 14:53 60 mls/hr ASDIR VIRGILIO Administration Cefepime HCl 2 gm/ Dextrose 100 mls @ 200 mls/hr 01/28/17 10:00 IVPB BID VIRGILIO Insulin Aspart 35 units 01/24/17 07:00 01/27/17 17:51 Novolog Mix 70/30 Vial SQ Not Given BIDAC VIRGILIO Insulin Aspart 1 vial 01/24/17 16:45 01/27/17 22:40 Novolog Vial Sliding Scale - SQ Not Given ACHS [facility] Protocol Levothyroxine Sodium 75 mcg 01/24/17 07:00 01/27/17 06:46 Synthroid - PO 75 mcg DAILY@0700 VIRGILIO Administration Lidocaine 1 patch 01/25/17 10:00 01/27/17 09:18 Lidoderm Patch - TP 1 patch DAILY VIRGILIO Administration Loratadine 10 mg 01/24/17 10:00 01/27/17 09:07 Claritin - PO 10 mg DAILY VIRGILIO Administration Metformin HCl 500 mg 01/24/17 07:00 01/27/17 17:51 Glucophage - PO Not Given BIDAC VIRGILIO Miscellaneous 1 each 01/25/17 22:00 01/26/17 23:19 Lidoderm Patch Removal MC 1 each DAILY@2200 VIRGILIO Administration Multi-Ingredient Lotion 1 applic 01/25/17 22:00 01/27/17 09:09 Eucerin (Small Jar) - TP Not Given BID VIRGILIO Myfsq-2-Pqbq Ethyl Esters 1 gm 01/23/17 22:00 01/27/17 09:06 Lovaza - PO 1 gm BID VIRGILIO Administration Ondansetron HCl 8 mg 01/23/17 12:21 01/27/17 12:46 Zofran Injection IVPB 8 mg Q12H PRN Administration NAUSEA AND/OR VOMITING Polyethylene Glycol 17 gm 01/24/17 10:00 01/27/17 09:12 Miralax (For Daily Use) - PO 17 gm DAILY VIRGILIO Administration Ranitidine HCl 150 mg 01/24/17 10:00 01/27/17 09:08 Zantac - PO 150 mg DAILY VIRGILIO Administration Tiotropium [place] 1 puff 10/06/17 10:00 01/27/17 09:10 Spiriva - IH 1 puff DAILY VIRGILIO Administration A/P 61 y/o with metastatic high grade mullerian cancer, serous adenoca s/p carbo/taxol with stable disease, with most recent progression C1 D5 gemzar lthargy, increase WBC count, increase cough ? pneumonia check cultures check head CT/chest CT hold pain meds start iv fluids/broad spectrum antibiotics discussed with patient and her daughters. she made her 2 daters her health care proxy. she expressed her wishes not to be resuscitated/intubated in case of emergency and to let nature take its course she understands her overallpoor prognosis discussed this in great detail with her daughters amol DNR/DNI palliative care consult
[2017-01-27] MEDS ORDERED: ALBUTEROL SO4 0.083% IH SOL 2.5 MG/3 ML VIAL.NEB. NEB ONE (20:46)
[2017-01-27] MEDS ORDERED: CEFEPIME HCL 2 GM VIAL (RESTRICTED TO ID) IVPB SCH (22:00)
[2017-01-27] MEDS: CEFEPIME 2 GM in DEXTROSE 5%-WATER - 100 ML IVPB SCH ×2 (22:05→22:07)
[2017-01-27] MEDS: LIDOCAINE PATCH REMOVAL MC SCH (23:00)
[2017-01-27] MEDS: ALBUTEROL SO4 0.042% IH SOL 1.25 MG/3 ML VIAL.NEB NEB SCH (23:05)
[2017-01-28] MEDS: ACETAMINOPHEN 325 MG TABLET (FP) PO PRN ×3 (00:24→13:15)
[2017-01-28] MEDS: MINERAL OIL/PETROLAT/WATER TOPICAL CREAM 113 GM JAR TP SCH ×3 (00:28→21:27)
[2017-01-28] MEDS ORDERED: ALBUTEROL SO4 0.5 % INH SOLN 2.5 MG/0.5 ML VIAL.NEB. NEB ONE (05:34)
[2017-01-28] MEDS: ALBUTEROL SO4 0.042% IH SOL 1.25 MG/3 ML VIAL.NEB NEB SCH ×4 (05:46→23:13)
[2017-01-28] MEDS: LEVOTHYROXINE NA 75 MCG TABLET (FP) PO SCH (06:44)
[2017-01-28] MEDS: metFORMIN HCL 500 MG TABLET (FP) PO SCH ×2 (06:44→16:41)
[2017-01-28] MEDS: glipiZIDE 5 MG TABLET (FP) PO SCH (06:45)
[2017-01-28] MEDS ORDERED: PT OWN MED DRAWER 7, Y5N ONE ×4 (06:49→15:42)
[2017-01-28] MEDS: guaiFENesin/D-M SUGAR-FREE/ACLHOL-FREE 118 ML BOTTLE PO PRN ×2 (06:50→21:28)
[2017-01-28] MEDS ORDERED: INSULIN (NOVOLOG) ASPART 100 UNITS/ML 10ML VIAL ONE ×2 (06:52→20:23)
[2017-01-28] MEDS: INSULIN SLIDING SCALE (NOVOLOG) 1 VIAL SQ SCH ×4 (06:54→21:27)
[2017-01-28] MEDS: INSULIN (NOVOLOG MIX 70/30) 100 UNITS/ML MDV SQ SCH ×2 (06:54→16:42)
[2017-01-28 07:31] LABS: BASOPHIL 0.2 % (0-2.0); EOSINOPHIL 0.6 % (0-4.5); MCH 32.2 pg (25.7-33.7); MCHC 32.8 g/dl (32.0-36.0); MEAN CELL VOLUME 98.3 fl (80-96); MEAN PLT VOLUME 8.4 fl (7.5-11.1); NEUTROPHILS 95.3 % (42.8-82.8); PLATELET COUNT 103 K/MM3 (134-434); RDW 18.4 % (11.6-15.6); WHITE BLOOD COUNT 6.8 K/mm3 (4.0-10.0)
[2017-01-28 07:50] LABS: INR 2.34 (0.82-1.09); PROTHROMBIN TIME (PATIENT) 25.7 SEC (9.98-11.88)
[2017-01-28 07:51] LABS: ALBUMIN 2.3 g/dl (3.4-5.0); ALK PHOS 115 U/L (45-117); ANION GAP 9 (8-16); BILIRUBIN,TOTAL 1.2 mg/dL (0.2-1.0); CALCIUM 8.9 mg/dL (8.5-10.1); CO2 29 mmol/L (21-32); CREATININE 0.7 mg/dL (0.55-1.02); GLUCOSE,RANDOM 135 mg/dL (74-106); SGOT/AST 45 U/L (15-37); SGPT/ALT 31 U/L (12-78); TOT PROT 6.3 g/dl (6.4-8.2)
[2017-01-28] MEDS: FUROSEMIDE 40 MG TABLET (FP) PO SCH (09:37)
[2017-01-28] MEDS: OMEGA-3 ACID ETHYL ESTERS (FATTY-ACIDS) 1 GM CAPSULE (FP) PO SCH ×2 (09:37→21:27)
[2017-01-28] MEDS: LORATADINE 10 MG TABLET PO SCH (09:37)
[2017-01-28] MEDS: LIDOCAINE 5% TOPICAL PATCH TP SCH (09:37)
[2017-01-28] MEDS: RANITIDINE HCL 150 MG TABLET (FP) PO SCH (09:37)
[2017-01-28] MEDS: POLYETHYLENE GLYCOL 3350 119 GM BTL PO SCH (09:38)
[2017-01-28] MEDS: TIOTROPIUM BROMIDE 18 MCG/INH (DEVICE W/ 5 CAPSULES) IH SCH (09:38)
[2017-01-28] MEDS ORDERED: CEFEPIME 2 GM in DEXTROSE 5%-WATER - 100 ML IVPB SCH (10:00)
--- NOTE | 2017-01-28 10:41 | CONSULT ---
Consult Consult Specialty:: INTERNAL MEDICINE Referred by:: Dr Miller Reason for Consultation:: Medical management - History of Present Illness Chief Complaint: back pain , weakness History of Present Illness: 61 yrs old metastatic ovarian CA to pleura, peritoneal, abdominal -admitted for weakness, lethargy, severe back pain . She received chemo last week. Pt examined by me today-- appears very depressed. Knows her prognosis. Has severe back pain , no radiation to legs. CT studies of spine does not show any metastatic foci. She had allergic reaction to Percocet-- itching Coughing+ No SOB sleepy Lidoderm patch , neurontin not helping her - History Source History Provided By: Patient Limitations to Obtaining History: No Limitations - Past Medical History Cardio/Vascular: Yes: AFIB, HTN, Other (chronic lymphedema) Pulmonary: Yes: COPD, Other (recently had a chest tube removed). No: O2 Dependent Gastrointestinal: Yes: GERD Endocrine: Yes: Diabetes Mellitus, Hyperthyroidism - Alcohol/Substance Use Hx Alcohol Use: No - Smoking History Smoking history: Never smoked Have you smoked in the past 12 months: No Aproximately how many cigarettes per day: 0 If you are a former smoker, when did you quit?: n - Social History Usual Living Arrangement: With Child ADL: Family Assistance History of Recent Travel: No Home Medications - Allergies Allergies/Adverse Reactions: Allergies Allergy/AdvReac Type Severity Reaction Status Date / Time hydromorphone HCl AdvReac Severe Verified 01/25/17 05:56 [From Dilaudid] oxycodone AdvReac Severe Verified 01/24/17 19:39 - Home Medications Home Medications: Ambulatory Orders Levothyroxine [Synthroid -] 75 mcg PO DAILY 10/17/12 Loratadine [Claritin -] 10 mg PO DAILY 10/17/12 Metformin HCl [Glucophage] 500 mg PO BID 10/17/12 [place]-3 Acid Ethyl Esters [Lovaza -] 1,000 mg PO TID 10/17/12 Insulin (Novolog) [Novolog Flexpen -] See Protocol SQ ACHS #1 pen 10/03/16 Ranitidine [Zantac -] 150 mg PO BID #30 tab 10/03/16 Insulin Aspart [Novolog Flexpen] 35 unit SQ BID 10/14/16 Potassium Chloride 10 meq PO DAILY 10/24/16 Diltiazem Cd [Cardizem Cd -] 300 mg PO DAILY 10/25/16 Amox-Tr/K Cl [Augmentin 875-125mg Tablet -] 1 tab PO BID@0800,1730 #10 tablet Glipizide 5 mg PO DAILY #60 tablet 10/31/16 Warfarin Na [Coumadin -] 3 mg PO DAILY #60 tablet 10/31/16 Bacitracin 14 gm TP BID #1 oint...g. 12/06/16 Furosemide [Lasix -] 40 mg PO DAILY 01/02/17 Montelukast Na [Singulair -] 10 mg PO HS 01/02/17 Family Disease History - Family Disease History Family Disease History: Diabetes: Mother, CA: Mother Review of Systems - Review of Systems Constitutional: reports: Loss of Appetite, Weakness. denies: Chills Respiratory: reports: Cough. denies: SOB Musculoskeletal: reports: Back Pain Physical Exam Vital Signs: Vital Signs Temperature 97.7 F 01/28/17 09:00 Pulse Rate 99 H 01/28/17 09:00 Respiratory Rate 20 01/28/17 09:00 Blood Pressure 114/62 01/28/17 09:00 O2 Sat by Pulse Oximetry (%) 100 01/28/17 09:00 Constitutional: Yes: No Distress, Calm Cardiovascular: Yes: Pulse Irregular, Murmur Respiratory: Yes: Diminished, Rhonchi Gastrointestinal: Yes: Normal Bowel Sounds, Soft, Abdomen, Obese. No: Tenderness Edema: Yes Edema: LLE: 3+, RLE: 3+ Psychiatric: Yes: Alert, Oriented Labs: CBC, BMP 01/28/17 06:00 01/28/17 06:00 Imaging - Results Cat Scan: Report Reviewed Problem List - Problems (1) A-fib Code(s): I48.91 - UNSPECIFIED ATRIAL FIBRILLATION Qualifiers: (2) Depression, major, severe recurrence Code(s): F33.2 - MAJOR DEPRESSV DISORDER, RECURRENT SEVERE W/O PSYCH FEATURES (3) Primary cancer of ovary with widespread metastatic disease Code(s): C56.9 - MALIGNANT NEOPLASM OF UNSPECIFIED OVARY C80.0 - DISSEMINATED MALIGNANT NEOPLASM, UNSPECIFIED (4) Metabolic encephalopathy Code(s): G93.41 - METABOLIC ENCEPHALOPATHY (5) Intractable back pain Code(s): M54.9 - DORSALGIA, UNSPECIFIED Assessment/Plan PLAN pt appears severely depressed-- add Remeron to help with appetite as well Was started on antibiotics empirically-- seen by ID-- no focus of infection to cause her to be sleepy-- antibiotics discontinued Start Fentanyl patch low dose-- dc Lidoderm patch-- to aide in pain control continue with meds Advance directives--- DNR/DNI palliative care eval O 2 as needed, nebs as needed
--- NOTE | 2017-01-28 10:49 | PN ---
Progress Note (short form) - Note Progress Note: ID Consult dictated Elevated WBC, increased lethargy, cough in patient with metastatic carcinoma No clear infectious focus. Await c/s Will observe off antibiotics
[2017-01-28] MEDS ORDERED: FENTANYL PATCH WASTE TD PRN (10:56)
[2017-01-28] MEDS ORDERED: fentaNYL 12mcg/hr PATCH.TD72 TD SCH (11:00)
--- NOTE | 2017-01-28 11:05 | PN ---
Progress Note (short form) - Note Progress Note: Patient seen and examined. continues to have pain. Feels "down" , poor appetite. cough is a bit better, but still present. O/E General Appearance: Obese Lung: Clear to auscultation, Other (decreased Lt. lung base) Skin: itching excoriations. Abdomen: Soft, No tenderness, Normal bowel sounds Extremities: Other (lymphedema), some bruises seen in the lower Neurological: Intact Last Vital Signs Temp Pulse Resp BP Pulse Ox 98.1 F 91 H 18 126/71 98 01/26/17 10:08 01/26/17 10:08 01/26/17 10:08 01/26/17 10:08 01/25/17 21:00 01/26/17 06:00 01/26/17 06:00 Current Medications Generic Name Dose Route Start Last Admin Trade Name Freq PRN Reason Stop Dose Admin Acetaminophen 325 mg 01/24/17 09:32 01/24/17 09:40 Tylenol - PO 325 mg Q6H PRN Administration PAIN Acetaminophen 650 mg 01/24/17 09:33 01/25/17 20:02 Tylenol - PO 650 mg Q6H PRN Administration PAIN Bupropion HCl 150 mg 01/24/17 10:00 01/26/17 10:24 Wellbutrin Xl - PO 150 mg DAILY VIRGILIO Administration Diltiazem HCl 300 mg 01/24/17 10:00 01/26/17 10:23 Cardizem Cd - PO 300 mg DAILY VIRGILIO Administration Furosemide 40 mg 01/24/17 10:00 01/26/17 10:23 Lasix - PO 40 mg DAILY VIRGILIO Administration Glipizide 5 mg 01/24/17 07:00 01/26/17 06:49 Glucotrol - PO 5 mg DAILY@0700 VIRGILIO Administration Insulin Aspart 35 units 01/24/17 07:00 01/26/17 06:49 Novolog Mix 70/30 Vial SQ Not Given BIDAC VIRGILIO Insulin Aspart 1 vial 01/24/17 16:45 01/26/17 06:47 Novolog Vial Sliding Scale - SQ Not Given ACHS [facility] Protocol Levothyroxine Sodium 75 mcg 01/24/17 07:00 01/26/17 06:50 Synthroid - PO 75 mcg DAILY@0700 VIRGILIO Administration Lidocaine 1 patch 01/25/17 10:00 01/26/17 10:24 Lidoderm Patch - TP 1 patch DAILY VIRGILIO Administration Loratadine 10 mg 01/24/17 10:00 01/26/17 10:24 Claritin - PO 10 mg DAILY VIRGILIO Administration Metformin HCl 500 mg 01/24/17 07:00 01/26/17 06:50 Glucophage - PO 500 mg BIDAC VIRGILIO Administration Miscellaneous 1 each 01/25/17 22:00 01/25/17 22:12 Lidoderm Patch Removal MC 1 each DAILY@2200 VIRGILIO Administration Multi-Ingredient Lotion 1 applic 01/25/17 22:00 01/26/17 10:30 Eucerin (Small Jar) - TP Not Given BID VIRGILIO Uwqfe-5-Ichk Ethyl Esters 1 gm 01/23/17 22:00 01/26/17 10:24 Lovaza - PO 1 gm BID VIRGILIO Administration Ondansetron HCl 8 mg 01/23/17 12:21 01/23/17 12:38 Zofran Injection IVPB 8 mg Q12H PRN Administration NAUSEA AND/OR VOMITING Polyethylene Glycol 17 gm 01/24/17 10:00 01/26/17 10:27 Miralax (For Daily Use) - PO 17 gm DAILY VIRGILIO Administration Ranitidine HCl 150 mg 01/24/17 10:00 01/26/17 10:23 Zantac - PO 150 mg DAILY VIRGILIO Administration Tiotropium [place] 1 puff 01/24/17 10:00 01/25/17 10:31 Spiriva - IH 1 puff DAILY VIRGILIO Administration Tramadol HCl 50 mg 01/25/17 11:19 01/26/17 08:12 Ultram - PO 50 mg Q8H PRN Administration PAIN Warfarin Sodium 3 mg 01/23/17 18:00 01/23/17 18:44 Coumadin - PO 3 mg DAILY@1800 VIRGILIO Administration Assessment/Plan: Metastatic high grade mullerian cancer. on second line chemo, s.p C1D1 gemzar on 01/23. -pain control: fentanyl patch -Letahrgy ?infection ?meds: ID consult noted, on cefepime -poor appetite : will hold off on mirtazapine after discussing with . -CT chest, will follow,pulm f.u. -daily INR check - explained to the daughters about the present situation, pt is DNR/ DNI.
--- NOTE | 2017-01-28 12:17 | CONS ---
DATE OF CONSULTATION: DATE OF DICTATION: 01/28/2017 HISTORY OF PRESENT ILLNESS: The patient is a 61-year-old female with metastatic endometrial carcinoma who was evaluated for possible sepsis. The patient was admitted to the hospital on January 23, 2017 with complaints of generalized pain, chills, nausea, shortness of breath, and cough. She had received chemotherapy on January 23, 2017. She was seen in consultation by pain management. Repeat imaging was performed and showed no significant change in her pulmonary disease. Her course has been complicated by elevated white blood cell count, increased lethargy, and cough productive of whitish sputum. There was concern raised over the possibility of her pain medicines causing increased lethargy or chemotherapy as the cause of her symptoms. She is awake, but lethargic. She complains of cough. She denies any chest pain. No complaints of high-grade fever or shaking chills. No tenderness at the port site. No abdominal pain, vomiting, diarrhea, dysuria, or hematuria. 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 ALLERGIES: To OXYCODONE and HYDROMORPHONE. MEDICATIONS: Include Lidoderm, Zofran, Tylenol, Wellbutrin, Lovaza, Spiriva, DiaBeta, Glucophage, Cardizem, Zantac, NovoLog, Lasix, Glucotrol, Synthroid. LABORATORY DATA: White count 6.8, 95% neutrophils, hematocrit 27.6, platelet count 103. BUN 12, creatinine 0.7. Liver enzymes AST 45, total bilirubin 1.2, alkaline phosphatase 115. Urinalysis is pending. CT scan of the chest shows bilateral pulmonary masses, which appear unchanged from previous study. PHYSICAL EXAMINATION: General: She is awake, she is lethargic, she is seated in bed, she is slightly short of breath at rest on nasal cannula. Vital signs: Temperature 98.3, blood pressure 132/69, pulse 112 and regular, respirations 18 per minute. HEENT: Sclerae anicteric. Heart: Heart sounds S1, S2. Lungs: Scattered rhonchi bilaterally. Port site no erythema. There is a surgical scar present in the left flank area. There was slight residual induration from the previous episode of cellulitis. No tenderness or warmth. Abdomen: Obese, nontender. Extremities: Positive for edema. IMPRESSION: Elevated white blood cell count, increased lethargy, cough in patient with metastatic carcinoma. No clear infectious source for elevated white blood cell count. Patient is afebrile, is not neutropenic. Will await cultures and observe off antibiotic therapy. Case discussed with Hematology. Will follow. Thank you for the kind referral. DARIN OCHOA M.D. [id number]
--- NOTE | 2017-01-28 12:20 | CON.PULM ---
Consult Consult Specialty:: PULM/CCM Referred by:: BUDDY Reason for Consultation:: cough / SOB - History of Present Illness Chief Complaint: SOB/ cough History of Present Illness: 61 F, known high grade Mullerian cancer with extensive lung mets. Previous left recurrent pleural effusion that required pleurex placement and subsequent removal. Called to assess SOB and cough. Patient reports chronic cough with white/ yellow sputum. No hemoptysis. CT chest : no clear infiltrate / minimal residual effusion / multiple nodules/ masses. - History Source History Provided By: Patient Limitations to Obtaining History: No Limitations - Past Medical History Cardio/Vascular: Yes: AFIB, HTN, Other (chronic lymphedema) Pulmonary: Yes: COPD, Other (recently had a chest tube removed). No: O2 Dependent Gastrointestinal: Yes: GERD Endocrine: Yes: Diabetes Mellitus, Hyperthyroidism - Alcohol/Substance Use Hx Alcohol Use: No - Smoking History Smoking history: Never smoked Have you smoked in the past 12 months: No Aproximately how many cigarettes per day: 0 If you are a former smoker, when did you quit?: n - Social History Usual Living Arrangement: With Child ADL: Family Assistance History of Recent Travel: No Home Medications - Allergies Allergies/Adverse Reactions: Allergies Allergy/AdvReac Type Severity Reaction Status Date / Time hydromorphone HCl AdvReac Severe Verified 01/25/17 05:56 [From Dilaudid] oxycodone AdvReac Severe Verified 01/24/17 19:39 - Home Medications Home Medications: Ambulatory Orders Levothyroxine [Synthroid -] 75 mcg PO DAILY 10/17/12 Loratadine [Claritin -] 10 mg PO DAILY 10/17/12 Metformin HCl [Glucophage] 500 mg PO BID 10/17/12 [place]-3 Acid Ethyl Esters [Lovaza -] 1,000 mg PO TID 10/17/12 Insulin (Novolog) [Novolog Flexpen -] See Protocol SQ ACHS #1 pen 10/03/16 Ranitidine [Zantac -] 150 mg PO BID #30 tab 10/03/16 Insulin Aspart [Novolog Flexpen] 35 unit SQ BID 10/14/16 Potassium Chloride 10 meq PO DAILY 10/24/16 Diltiazem Cd [Cardizem Cd -] 300 mg PO DAILY 10/25/16 Amox-Tr/K Cl [Augmentin 875-125mg Tablet -] 1 tab PO BID@0800,1730 #10 tablet Glipizide 5 mg PO DAILY #60 tablet 10/31/16 Warfarin Na [Coumadin -] 3 mg PO DAILY #60 tablet 10/31/16 Bacitracin 14 gm TP BID #1 oint...g. 12/06/16 Furosemide [Lasix -] 40 mg PO DAILY 01/02/17 Montelukast Na [Singulair -] 10 mg PO HS 01/02/17 Family Disease History - Family Disease History Family Disease History: Diabetes: Mother, CA: Mother Review of Systems - Review of Systems Constitutional: reports: Lethargy, Malaise, Weakness. denies: Chills, Fever, Night Sweats Eyes: reports: No Symptoms HENT: reports: No Symptoms Neck: reports: No Symptoms Cardiovascular: reports: Chest Pain, Shortness of Breath. denies: Palpitations Respiratory: reports: Cough, Snoring, SOB, SOB on Exertion. denies: Hemoptysis , Orthopnea, Wheezing Gastrointestinal: reports: Abdominal Pain, Bloating. denies: Diarrhea, Melena, Rectal Bleeding, Vomiting Blood Genitourinary: reports: No Symptoms Breasts: reports: No Symptoms Reported Musculoskeletal: reports: Back Pain Integumentary: reports: No Symptoms Neurological: reports: No Symptoms Endocrine: reports: No Symptoms Hematology/Lymphatic: reports: No Symptoms Psychiatric: reports: No Symptoms Physical Exam Vital Sings: Vital Signs Temperature 97.7 F 01/28/17 09:00 Pulse Rate 83 01/28/17 09:15 Respiratory Rate 20 01/28/17 09:00 Blood Pressure 114/62 01/28/17 09:00 O2 Sat by Pulse Oximetry (%) 99 01/28/17 09:15 Constitutional: Yes: No Distress, Calm, Obese Eyes: Yes: Conjunctiva Clear, EOM Intact HENT: Yes: Atraumatic, Normocephalic Neck: Yes: Supple, Trachea Midline Cardiovascular: Yes: Regular Rate and Rhythm Respiratory: Yes: Cough, Diminished, On Nasal O2. No: Accessory Muscle Use, Rhonchi, Stridor, Wheezes ...Inspection: Yes: WNL ...Clubbing: No Gastrointestinal: Yes: Normal Bowel Sounds, Soft, Abdomen, Obese Renal/: Yes: WNL Musculoskeletal: Yes: Back Pain Extremities: Yes: WNL Edema: Yes Peripheral Pulses WNL: Yes Integumentary: Yes: WNL Neurological: Yes: WNL, Alert, Oriented ...Motor Strength: WNL Psychiatric: Yes: WNL, Alert, Oriented Labs: CBC, BMP 01/28/17 06:00 01/28/17 06:00 Imaging - Results Chest X-ray: Report Reviewed, Image Reviewed Cat Scan: Report Reviewed, Image Reviewed Problem List - Problems (1) A-fib Code(s): I48.91 - UNSPECIFIED ATRIAL FIBRILLATION Qualifiers: (2) Intractable back pain Code(s): M54.9 - DORSALGIA, UNSPECIFIED (3) Hypothyroid Code(s): E03.9 - HYPOTHYROIDISM, UNSPECIFIED (4) Lymphedema Code(s): I89.0 - LYMPHEDEMA, NOT ELSEWHERE CLASSIFIED (5) Anemia Code(s): D64.9 - ANEMIA, UNSPECIFIED (6) Anxiety and depression Code(s): F41.9 - ANXIETY DISORDER, UNSPECIFIED F32.9 - MAJOR DEPRESSIVE DISORDER, SINGLE EPISODE, UNSPECIFIED (7) Diabetes Code(s): E11.9 - TYPE 2 DIABETES MELLITUS WITHOUT COMPLICATIONS Qualifiers: Diabetes mellitus type: type 2 Diabetes mellitus complication status: without complication (8) HTN (hypertension) Code(s): I10 - ESSENTIAL (PRIMARY) HYPERTENSION Qualifiers: (9) Morbidly obese Code(s): E66.01 - MORBID (SEVERE) OBESITY DUE TO EXCESS CALORIES (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 Code(s): C56.9 - MALIGNANT NEOPLASM OF UNSPECIFIED OVARY C80.0 - DISSEMINATED MALIGNANT NEOPLASM, UNSPECIFIED (11) Pulmonary nodules/lesions, multiple Code(s): R91.8 - OTHER NONSPECIFIC ABNORMAL FINDING OF LUNG FIELD (12) SOB (shortness of breath) Code(s): R06.02 - SHORTNESS OF BREATH Assessment/Plan Agree with ID that there does not appear to be an infection, so would monitor off ABX. O2 as needed Unfortunately given the extent of lung metastasis as the primary etiology of her cough, there are no clear treatment solutions. Steroids may have some minimal effect, but may also cause other issues that would increase her morbidity. Continue support care. Will follow. Dr An
[2017-01-28] MEDS ORDERED: CEFEPIME 1 GM in DEXTROSE 5%-WATER - 100 ML IVPB SCH (13:00)
[2017-01-28] MEDS ORDERED: CEFEPIME HCL 1 GM VIAL (RESTRICTED TO ID) IVPB SCH (13:00)
[2017-01-28] MEDS ORDERED: VANCOMYCIN 1,000 MG in DEXTROSE 5%-WATER - 250 ML IVPB ONE (13:00)
[2017-01-28] MEDS: CEFEPIME 1 GM in DEXTROSE 5%-WATER 100 ML IVPB SCH (17:09)
[2017-01-28] MEDS ORDERED: WARFARIN NA 2.5 MG TABLET (FP) PO ONE (19:45)
[2017-01-28] MEDS ORDERED: MIRTAZAPINE 15 MG TABLET (FP) PO SCH (22:00)
[2017-01-28] MEDS ORDERED: ALBUTEROL SO4 0.083% IH SOL 2.5 MG/3 ML VIAL.NEB. NEB ONE (22:30)
[2017-01-29] MEDS ORDERED: CEFEPIME HCL 1 GM VIAL (RESTRICTED TO ID) ONE ×2 (00:50→17:10)
[2017-01-29] MEDS ORDERED: DEXTROSE 5%-WATER 100 ML IVPB ONE ×2 (00:51→17:11)
[2017-01-29] MEDS: CEFEPIME 1 GM in DEXTROSE 5%-WATER 100 ML IVPB SCH ×3 (01:26→17:12)
[2017-01-29] MEDS ORDERED: ALBUTEROL SO4 0.083% IH SOL 2.5 MG/3 ML VIAL.NEB. NEB ONE ×2 (05:57→22:05)
[2017-01-29] MEDS: ALBUTEROL SO4 0.042% IH SOL 1.25 MG/3 ML VIAL.NEB NEB SCH ×3 (06:00→18:03)
[2017-01-29] MEDS: INSULIN (NOVOLOG MIX 70/30) 100 UNITS/ML MDV SQ SCH ×2 (06:10→16:38)
[2017-01-29] MEDS: LEVOTHYROXINE NA 75 MCG TABLET (FP) PO SCH (06:11)
[2017-01-29] MEDS: INSULIN SLIDING SCALE (NOVOLOG) 1 VIAL SQ SCH ×4 (06:11→21:10)
[2017-01-29] MEDS: ACETAMINOPHEN 325 MG TABLET (FP) PO PRN (06:30)
[2017-01-29] MEDS: metFORMIN HCL 500 MG TABLET (FP) PO SCH ×2 (06:52→16:36)
[2017-01-29] MEDS: glipiZIDE 5 MG TABLET (FP) PO SCH (06:52)
[2017-01-29 07:15] LABS: BASOPHIL 0.5 % (0-2.0); EOSINOPHIL 0.7 % (0-4.5); MCH 32.4 pg (25.7-33.7); MEAN PLT VOLUME 8.1 fl (7.5-11.1); NEUTROPHILS 89.3 % (42.8-82.8); PLATELET COUNT 82 K/MM3 (134-434); RDW 18.3 % (11.6-15.6)
[2017-01-29 07:31] LABS: INR 2.24 (0.82-1.09); PROTHROMBIN TIME (PATIENT) 24.6 SEC (9.98-11.88)
[2017-01-29 07:32] LABS: ACTIVATED PTT 33.4 SECONDS (26.9-34.4)
[2017-01-29] MEDS: traMADol HCL 50 MG TABLET PO PRN ×3 (07:49→22:29)
[2017-01-29 08:41] LABS: ALBUMIN 2.2 g/dl (3.4-5.0); ALK PHOS 122 U/L (45-117); ANION GAP 12 (8-16); CO2 25 mmol/L (21-32); CREATININE 0.7 mg/dL (0.55-1.02); GLUCOSE,RANDOM 119 mg/dL (74-106); SGOT/AST 29 U/L (15-37); SGPT/ALT 25 U/L (12-78); TOT PROT 6.1 g/dl (6.4-8.2)
[2017-01-29] MEDS: OMEGA-3 ACID ETHYL ESTERS (FATTY-ACIDS) 1 GM CAPSULE (FP) PO SCH ×2 (09:38→21:09)
[2017-01-29] MEDS: LORATADINE 10 MG TABLET PO SCH (09:38)
[2017-01-29] MEDS: FUROSEMIDE 40 MG TABLET (FP) PO SCH (09:38)
[2017-01-29] MEDS: TIOTROPIUM BROMIDE 18 MCG/INH (DEVICE W/ 5 CAPSULES) IH SCH (09:40)
[2017-01-29] MEDS ORDERED: PT OWN MED DRAWER 7, Y5N ONE ×3 (09:40→17:48)
[2017-01-29] MEDS: MINERAL OIL/PETROLAT/WATER TOPICAL CREAM 113 GM JAR TP SCH ×2 (09:41→21:09)
[2017-01-29] MEDS: POLYETHYLENE GLYCOL 3350 119 GM BTL PO SCH (09:41)
[2017-01-29] MEDS: RANITIDINE HCL 150 MG TABLET (FP) PO SCH (09:52)
--- NOTE | 2017-01-29 10:10 | PN ---
Progress Note, Physician History of Present Illness: OOB in chair More awake and alert No complaints Breathing non-labored Afebrile WBC 5.0 89% polys Plt decreased 82K Cultures pending - Current Medication List Current Medications: Active Medications Acetaminophen (Tylenol -) 325 mg PO Q6H PRN PRN Reason: PAIN Last Admin: 01/24/17 09:40 Dose: 325 mg Acetaminophen (Tylenol -) 650 mg PO Q6H PRN PRN Reason: PAIN Last Admin: 01/29/17 06:30 Dose: 650 mg Albuterol Sulfate (Ventolin 0.042trength) -) 1 amp NEB QIDR [facility] Last Admin: 01/29/17 06:00 Dose: 1 amp Bupropion HCl (Wellbutrin Xl -) 150 mg PO DAILY [facility] Last Admin: 01/29/17 09:38 Dose: 150 mg Diltiazem HCl (Cardizem Cd -) 300 mg PO DAILY [facility] Last Admin: 01/29/17 09:38 Dose: 300 mg Fentanyl (Duragesic 12mcg Patch -) 1 patch TD Q72H [facility] Stop: 02/04/17 10:56 Last Admin: 01/28/17 13:16 Dose: 1 patch Furosemide (Lasix -) 40 mg PO DAILY [facility] Last Admin: 01/29/17 09:38 Dose: 40 mg Glipizide (Glucotrol -) 5 mg PO DAILY@0700 [facility] Last Admin: 01/29/17 06:52 Dose: 5 mg Guaifenesin (Diabetic Tussin Dm -) 5 ml PO Q6H PRN PRN Reason: COUGH Last Admin: 01/28/17 21:28 Dose: 5 ml Cefepime HCl 1 gm/ Dextrose 100 mls @ 200 mls/hr IVPB Q8H-IV [facility] Last Admin: 01/29/17 09:38 Dose: 200 mls/hr Insulin Aspart (Novolog Mix 70/30 Vial) 35 units SQ BIDAC [facility] Last Admin: 01/29/17 06:10 Dose: Not Given Insulin Aspart (Novolog Vial Sliding Scale -) 1 vial SQ ACHS [facility] PRN Reason: Protocol Last Admin: 01/29/17 06:11 Dose: Not Given Levothyroxine Sodium (Synthroid -) 75 mcg PO DAILY@0700 [facility] Last Admin: 01/29/17 06:11 Dose: 75 mcg Loratadine (Claritin -) 10 mg PO DAILY [facility] Last Admin: 01/29/17 09:38 Dose: 10 mg Metformin HCl (Glucophage -) 500 mg PO BIDAC [facility] Last Admin: 01/29/17 06:52 Dose: 500 mg Miscellaneous (Duragesic Patch Waste) 1 each TD PRN PRN PRN Reason: PAIN Multi-Ingredient Lotion (Eucerin (Small Jar) -) 1 applic TP BID [facility] Last Admin: 01/29/17 09:41 Dose: Not Given [id number] Ethyl Esters (Lovaza -) 1 gm PO BID [facility] Last Admin: 01/29/17 09:38 Dose: 1 gm Ondansetron HCl (Zofran Injection) 8 mg IVPB Q12H PRN PRN Reason: NAUSEA AND/OR VOMITING Last Admin: 01/27/17 12:46 Dose: 8 mg Polyethylene Glycol (Miralax (For Daily Use) -) 17 gm PO DAILY [facility] Last Admin: 01/29/17 09:41 Dose: 17 gm Ranitidine HCl (Zantac -) 150 mg PO DAILY [facility] Last Admin: 01/29/17 09:52 Dose: 150 mg Tiotropium [place] (Spiriva -) 1 puff IH DAILY [facility] Last Admin: 01/29/17 09:40 Dose: 1 puff Tramadol HCl (Ultram -) 50 mg PO Q6H PRN Last Admin: 01/29/17 07:49 Dose: 50 mg Warfarin Sodium (Coumadin -) 2.5 mg PO DAILY@1800 [facility] - Objective Vital Signs: Vital Signs Temperature 98 F 01/29/17 05:38 Pulse Rate 99 H 01/29/17 05:38 Respiratory Rate 20 01/29/17 05:38 Blood Pressure 116/61 01/29/17 05:38 O2 Sat by Pulse Oximetry (%) 99 01/28/17 20:46 Constitutional: Yes: No Distress, Obese Eyes: Yes: Conjunctiva Clear Cardiovascular: Yes: Regular Rate and Rhythm, S1, S2 Respiratory: Yes: Diminished Gastrointestinal: Yes: Normal Bowel Sounds, Soft, Abdomen, Obese. No: Tenderness Edema: Yes Integumentary: Yes: Other (no erythema at port site) Labs: CBC, BMP 01/29/17 06:00 01/29/17 06:00 INR, PTT INR 2.24 (0.82-1.09) H 01/29/17 06:00 Assessment/Plan Metastatic carcinoma S/P altered mental status/ Possible sepsis Thrombocytopenia Await cultures On cefepime
--- NOTE | 2017-01-29 10:27 | PN ---
Progress Note, Physician Chief Complaint: still coughing has pain in back constipated - Current Medication List Current Medications: Active Medications Acetaminophen (Tylenol -) 325 mg PO Q6H PRN PRN Reason: PAIN Last Admin: 01/24/17 09:40 Dose: 325 mg Acetaminophen (Tylenol -) 650 mg PO Q6H PRN PRN Reason: PAIN Last Admin: 01/29/17 06:30 Dose: 650 mg Albuterol Sulfate (Ventolin 0.042trength) -) 1 amp NEB QIDR [facility] Last Admin: 01/29/17 06:00 Dose: 1 amp Bupropion HCl (Wellbutrin Xl -) 150 mg PO DAILY [facility] Last Admin: 01/29/17 09:38 Dose: 150 mg Diltiazem HCl (Cardizem Cd -) 300 mg PO DAILY [facility] Last Admin: 01/29/17 09:38 Dose: 300 mg Fentanyl (Duragesic 12mcg Patch -) 1 patch TD Q72H [facility] Stop: 02/04/17 10:56 Last Admin: 01/28/17 13:16 Dose: 1 patch Furosemide (Lasix -) 40 mg PO DAILY [facility] Last Admin: 01/29/17 09:38 Dose: 40 mg Glipizide (Glucotrol -) 5 mg PO DAILY@0700 [facility] Last Admin: 01/29/17 06:52 Dose: 5 mg Guaifenesin (Diabetic Tussin Dm -) 5 ml PO Q6H PRN PRN Reason: COUGH Last Admin: 01/28/17 21:28 Dose: 5 ml Cefepime HCl 1 gm/ Dextrose 100 mls @ 200 mls/hr IVPB Q8H-IV [facility] Last Admin: 01/29/17 09:38 Dose: 200 mls/hr Insulin Aspart (Novolog Mix 70/30 Vial) 35 units SQ BIDAC [facility] Last Admin: 01/29/17 06:10 Dose: Not Given Insulin Aspart (Novolog Vial Sliding Scale -) 1 vial SQ ACHS [facility] PRN Reason: Protocol Last Admin: 01/29/17 06:11 Dose: Not Given Levothyroxine Sodium (Synthroid -) 75 mcg PO DAILY@0700 [facility] Last Admin: 01/29/17 06:11 Dose: 75 mcg Loratadine (Claritin -) 10 mg PO DAILY [facility] Last Admin: 01/29/17 09:38 Dose: 10 mg Metformin HCl (Glucophage -) 500 mg PO BIDAC [facility] Last Admin: 01/29/17 06:52 Dose: 500 mg Miscellaneous (Duragesic Patch Waste) 1 each TD PRN PRN PRN Reason: PAIN Multi-Ingredient Lotion (Eucerin (Small Jar) -) 1 applic TP BID [facility] Last Admin: 01/29/17 09:41 Dose: Not Given [id number] Ethyl Esters (Lovaza -) 1 gm PO BID [facility] Last Admin: 01/29/17 09:38 Dose: 1 gm Ondansetron HCl (Zofran Injection) 8 mg IVPB Q12H PRN PRN Reason: NAUSEA AND/OR VOMITING Last Admin: 01/27/17 12:46 Dose: 8 mg Polyethylene Glycol (Miralax (For Daily Use) -) 17 gm PO DAILY [facility] Last Admin: 01/29/17 09:41 Dose: 17 gm Ranitidine HCl (Zantac -) 150 mg PO DAILY [facility] Last Admin: 01/29/17 09:52 Dose: 150 mg Tiotropium [place] (Spiriva -) 1 puff IH DAILY [facility] Last Admin: 01/29/17 09:40 Dose: 1 puff Tramadol HCl (Ultram -) 50 mg PO Q6H PRN Last Admin: 01/29/17 07:49 Dose: 50 mg Warfarin Sodium (Coumadin -) 2.5 mg PO DAILY@1800 [facility] - Objective Vital Signs: Vital Signs Temperature 98 F 01/29/17 05:38 Pulse Rate 99 H 01/29/17 05:38 Respiratory Rate 20 01/29/17 05:38 Blood Pressure 116/61 01/29/17 05:38 O2 Sat by Pulse Oximetry (%) 99 01/28/17 20:46 Constitutional: Yes: No Distress Cardiovascular: Yes: Pulse Irregular Respiratory: Yes: Diminished Gastrointestinal: Yes: Normal Bowel Sounds, Soft, Abdomen, Obese. No: Distention, Tenderness Edema: Yes Labs: CBC, BMP 01/29/17 06:00 01/29/17 06:00 INR, PTT INR 2.24 (0.82-1.09) H 01/29/17 06:00 Problem List - Problems (1) A-fib Code(s): I48.91 - UNSPECIFIED ATRIAL FIBRILLATION Qualifiers: (2) Depression, major, severe recurrence Code(s): F33.2 - MAJOR DEPRESSV DISORDER, RECURRENT SEVERE W/O PSYCH FEATURES (3) Primary cancer of ovary with widespread metastatic disease Code(s): C56.9 - MALIGNANT NEOPLASM OF UNSPECIFIED OVARY C80.0 - DISSEMINATED MALIGNANT NEOPLASM, UNSPECIFIED (4) Metabolic encephalopathy Code(s): G93.41 - METABOLIC ENCEPHALOPATHY (5) Intractable back pain Code(s): M54.9 - DORSALGIA, UNSPECIFIED Assessment/Plan PLAN pt appears severely depressed-- on Remeron to help with appetite as well Was started on antibiotics empirically-- seen by ID-- no focus of infection to cause her to be sleepy-- blood cultures negative, urine culture pending Start Fentanyl patch low dose-- dc Lidoderm patch-- to aide in pain control, on Tramadol continue with meds Advance directives--- DNR/DNI palliative care eval O 2 as needed, nebs as needed add Senna for constipation
--- NOTE | 2017-01-29 11:19 | PN ---
Progress Note (short form) - Note Progress Note: Patient seen and examined. chart reviewed. All consult notes reviewed. O/E General Appearance: Obese Lung: Clear to auscultation, Other (decreased Lt. lung base) Skin: itching excoriations. Abdomen: Soft, No tenderness, Normal bowel sounds Extremities: Other (lymphedema), some bruises seen in the lower Neurological: Intact Last Vital Signs Temp Pulse Resp BP Pulse Ox 97.8 F 91 H 20 132/66 98 01/29/17 09:00 01/29/17 09:00 01/29/17 09:00 01/29/17 09:00 01/29/17 09:00 CBC, BMP 01/29/17 06:00 01/29/17 06:00 Current Medications Generic Name Dose Route Start Last Admin Trade Name Freq PRN Reason Stop Dose Admin Acetaminophen 325 mg 01/24/17 09:32 01/24/17 09:40 Tylenol - PO 325 mg Q6H PRN Administration PAIN Acetaminophen 650 mg 01/24/17 09:33 01/29/17 06:30 Tylenol - PO 650 mg Q6H PRN Administration PAIN Albuterol Sulfate 1 amp 01/28/17 00:00 01/29/17 06:00 Ventolin 0.042trength) - NEB 1 amp QIDR [facility] Administration Bupropion HCl 150 mg 01/24/17 10:00 01/29/17 09:38 Wellbutrin Xl - PO 150 mg DAILY [facility] Administration Diltiazem HCl 300 mg 01/24/17 10:00 01/29/17 09:38 Cardizem Cd - PO 300 mg DAILY [facility] Administration Fentanyl 1 patch 01/28/17 11:00 01/28/17 13:16 Duragesic 12mcg Patch - TD 02/04/17 10:56 1 patch Q72H [facility] Administration Furosemide 40 mg 01/24/17 10:00 01/29/17 09:38 Lasix - PO 40 mg DAILY [facility] Administration Glipizide 5 mg 01/24/17 07:00 01/29/17 06:52 Glucotrol - PO 5 mg DAILY@0700 [facility] Administration Guaifenesin 5 ml 01/26/17 20:29 01/28/17 21:28 Diabetic Tussin Dm - PO 5 ml Q6H PRN Administration COUGH Cefepime HCl 1 gm/ Dextrose 100 mls @ 200 mls/hr 01/28/17 14:17 01/29/17 09:38 IVPB 200 mls/hr Q8H-IV [facility] Administration Insulin Aspart 35 units 01/24/17 07:00 01/29/17 06:10 Novolog Mix 70/30 Vial SQ Not Given BIDAC [facility] Insulin Aspart 1 vial 01/24/17 16:45 01/29/17 11:09 Novolog Vial Sliding Scale - SQ Not Given ACHS [facility] Protocol Levothyroxine Sodium 75 mcg 01/24/17 07:00 01/29/17 06:11 Synthroid - PO 75 mcg DAILY@0700 [facility] Administration Loratadine 10 mg 01/24/17 10:00 01/29/17 09:38 Claritin - PO 10 mg DAILY [facility] Administration Metformin HCl 500 mg 01/24/17 07:00 01/29/17 06:52 Glucophage - PO 500 mg BIDAC [facility] Administration Miscellaneous 1 each 01/28/17 10:56 Duragesic Patch Waste TD PRN PRN PAIN Multi-Ingredient Lotion 1 applic 01/25/17 22:00 01/29/17 09:41 Eucerin (Small Jar) - TP Not Given BID [facility] Oawzp-8-Splu Ethyl Esters 1 gm 01/23/17 22:00 01/29/17 09:38 Lovaza - PO 1 gm BID [facility] Administration Ondansetron HCl 8 mg 01/23/17 12:21 01/27/17 12:46 Zofran Injection IVPB 8 mg Q12H PRN Administration NAUSEA AND/OR VOMITING Polyethylene Glycol 17 gm 01/24/17 10:00 01/29/17 09:41 Miralax (For Daily Use) - PO 17 gm DAILY [facility] Administration Ranitidine HCl 150 mg 01/24/17 10:00 01/29/17 09:52 Zantac - PO 150 mg DAILY [facility] Administration Senna 2 tab 01/29/17 10:48 Senna - PO HS PRN CONSTIPATION Tiotropium [place] 1 puff 01/24/17 10:00 01/29/17 09:40 Spiriva - IH 1 puff DAILY [facility] Administration Tramadol HCl 50 mg 01/29/17 06:52 01/29/17 07:49 Ultram - PO 50 mg Q6H PRN Administration Warfarin Sodium 2.5 mg 01/29/17 18:00 Coumadin - PO DAILY@1800 [facility] Assessment/Plan: Metastatic high grade mullerian cancer. on second line chemo, s.p C1D1 gemzar on 01/23. -pain control: fentanyl patch, tramadol -Letahrgy:much improved, all cultures thus far negative,could e a combination of meds/chemotherapy/malignancy. -decreased counts: not neutropenic, will assess for transfusion tomorrow. type and screen ordered for tomorrow. -poor appetite : may add mirtazapine at a later time. -CT chest noted will follow,pulm f.u. appreciated -daily INR check -PT eval.
--- NOTE | 2017-01-29 12:11 | PN ---
Progress Note (short form) - Note Progress Note: PULMONARY WELL KNOWN TO OUR SERVICE SITTING UP EATING LUNCH COUGH CONTINUES SLIGHTLY BETTER VSS/AFEBRILE PALE/ANICTERIC DISTANT BREATH SOUNDS S1S2 OBESE EDEMA LABS/MEDS/NOTES/IMAGING REVIEWED (1) A-fib Code(s): I48.91 - UNSPECIFIED ATRIAL FIBRILLATION Qualifiers: (2) Intractable back pain Code(s): M54.9 - DORSALGIA, UNSPECIFIED (3) Hypothyroid Code(s): E03.9 - HYPOTHYROIDISM, UNSPECIFIED (4) Lymphedema Code(s): I89.0 - LYMPHEDEMA, NOT ELSEWHERE CLASSIFIED (5) Anemia Code(s): D64.9 - ANEMIA, UNSPECIFIED (6) Anxiety and depression Code(s): F41.9 - ANXIETY DISORDER, UNSPECIFIED F32.9 - MAJOR DEPRESSIVE DISORDER, SINGLE EPISODE, UNSPECIFIED (7) Diabetes Code(s): E11.9 - TYPE 2 DIABETES MELLITUS WITHOUT COMPLICATIONS Qualifiers: Diabetes mellitus type: type 2 Diabetes mellitus complication status: without complication (8) HTN (hypertension) Code(s): I10 - ESSENTIAL (PRIMARY) HYPERTENSION Qualifiers: (9) Morbidly obese Code(s): E66.01 - MORBID (SEVERE) OBESITY DUE TO EXCESS CALORIES (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 Code(s): C56.9 - MALIGNANT NEOPLASM OF UNSPECIFIED OVARY C80.0 - DISSEMINATED MALIGNANT NEOPLASM, UNSPECIFIED (11) Pulmonary nodules/lesions, multiple Code(s): R91.8 - OTHER NONSPECIFIC ABNORMAL FINDING OF LUNG FIELD (12) SOB (shortness of breath) Code(s): R06.02 - SHORTNESS OF BREATH ANTIBIOTICS/BRONCHODILATORS/O2/ANTICOAGULATION/COUGH SUPPRESSANT/ANALGESICS Amy SULLIVAN MD
[2017-01-29] MEDS: ONDANSETRON 4 MG/2 ML VIAL IVPB PRN (16:36)
[2017-01-29] MEDS: WARFARIN NA 2.5 MG TABLET (FP) PO SCH (17:12)
[2017-01-29] MEDS: SENNOSIDES 8.6MG TABLET (FP) PO PRN (21:09)
[2017-01-29] MEDS: guaiFENesin/D-M SUGAR-FREE/ACLHOL-FREE 118 ML BOTTLE PO PRN (21:11)
[2017-01-30] MEDS: ALBUTEROL SO4 0.042% IH SOL 1.25 MG/3 ML VIAL.NEB NEB SCH ×4 (00:05→17:39)
[2017-01-30] MEDS: CEFEPIME 1 GM in DEXTROSE 5%-WATER 100 ML IVPB SCH ×3 (02:00→18:21)
[2017-01-30] MEDS: INSULIN (NOVOLOG MIX 70/30) 100 UNITS/ML MDV SQ SCH ×2 (06:18→18:10)
[2017-01-30] MEDS: LEVOTHYROXINE NA 75 MCG TABLET (FP) PO SCH (06:18)
[2017-01-30] MEDS: glipiZIDE 5 MG TABLET (FP) PO SCH (06:18)
[2017-01-30] MEDS: metFORMIN HCL 500 MG TABLET (FP) PO SCH ×2 (06:18→18:10)
[2017-01-30] MEDS: INSULIN SLIDING SCALE (NOVOLOG) 1 VIAL SQ SCH ×4 (06:19→21:06)
[2017-01-30] MEDS ORDERED: ALBUTEROL SO4 0.083% IH SOL 2.5 MG/3 ML VIAL.NEB. NEB ONE ×2 (06:48→17:01)
[2017-01-30 07:30] LABS: INR 2.67 (0.82-1.09); PROTHROMBIN TIME (PATIENT) 30.2 SEC (9.98-11.88)
[2017-01-30 07:34] LABS: MCH 32.2 pg (25.7-33.7); MCHC 33.1 g/dl (32.0-36.0); MEAN CELL VOLUME 97.4 fl (80-96); MEAN PLT VOLUME 8.3 fl (7.5-11.1); PLATELET COUNT 72 K/MM3 (134-434); RDW 18.3 % (11.6-15.6); WHITE BLOOD COUNT 5.2 K/mm3 (4.0-10.0)
[2017-01-30 08:19] LABS: ANION GAP 7 (8-16); CALCIUM 9.3 mg/dL (8.5-10.1); CO2 28 mmol/L (21-32); CREATININE 0.7 mg/dL (0.55-1.02); GLUCOSE,RANDOM 125 mg/dL (74-106)
--- NOTE | 2017-01-30 09:30 | PN ---
Progress Note (short form) - Note Progress Note: Resting in NAD on 2 L NC O2. Dry cough persists. No CP. Intake & Output 01/27/17 01/28/17 01/29/17 01/30/17 23:59 23:59 23:59 23:59 Intake Total 780 2039 1939 100 Output Total 400 Balance 380 2039 1939 100 Last Vital Signs Temp Pulse Resp BP Pulse Ox 97.8 F 86 20 129/66 99 01/30/17 05:43 01/30/17 05:43 01/30/17 05:43 01/30/17 05:43 01/29/17 20:18 Active Medications Acetaminophen (Tylenol -) 325 mg PO Q6H PRN PRN Reason: PAIN Last Admin: 01/24/17 09:40 Dose: 325 mg Acetaminophen (Tylenol -) 650 mg PO Q6H PRN PRN Reason: PAIN Last Admin: 01/29/17 06:30 Dose: 650 mg Albuterol Sulfate (Ventolin 0.042trength) -) 1 amp NEB QIDR [facility] Last Admin: 01/30/17 06:54 Dose: 1 amp Bupropion HCl (Wellbutrin Xl -) 150 mg PO DAILY [facility] Last Admin: 01/29/17 09:38 Dose: 150 mg Diltiazem HCl (Cardizem Cd -) 300 mg PO DAILY [facility] Last Admin: 01/29/17 09:38 Dose: 300 mg Fentanyl (Duragesic 12mcg Patch -) 1 patch TD Q72H [facility] Stop: 02/04/17 10:56 Last Admin: 01/28/17 13:16 Dose: 1 patch Furosemide (Lasix -) 40 mg PO DAILY [facility] Last Admin: 01/29/17 09:38 Dose: 40 mg Glipizide (Glucotrol -) 5 mg PO DAILY@0700 [facility] Last Admin: 01/30/17 06:18 Dose: 5 mg Guaifenesin (Diabetic Tussin Dm -) 5 ml PO Q6H PRN PRN Reason: COUGH Last Admin: 01/29/17 21:11 Dose: 5 ml Cefepime HCl 1 gm/ Dextrose 100 mls @ 200 mls/hr IVPB Q8H-IV [facility] Last Admin: 01/30/17 02:00 Dose: 200 mls/hr Insulin Aspart (Novolog Mix 70/30 Vial) 35 units SQ BIDAC [facility] Last Admin: 01/30/17 06:18 Dose: Not Given Insulin Aspart (Novolog Vial Sliding Scale -) 1 vial SQ ACHS [facility] PRN Reason: Protocol Last Admin: 01/30/17 06:19 Dose: Not Given Levothyroxine Sodium (Synthroid -) 75 mcg PO DAILY@0700 [facility] Last Admin: 01/30/17 06:18 Dose: 75 mcg Loratadine (Claritin -) 10 mg PO DAILY [facility] Last Admin: 01/29/17 09:38 Dose: 10 mg Metformin HCl (Glucophage -) 500 mg PO BIDAC [facility] Last Admin: 01/30/17 06:18 Dose: 500 mg Miscellaneous (Duragesic Patch Waste) 1 each TD PRN PRN PRN Reason: PAIN Multi-Ingredient Lotion (Eucerin (Small Jar) -) 1 applic TP BID [facility] Last Admin: 01/29/17 21:09 Dose: 1 applic Vqsyp-4-Dcso Ethyl Esters (Lovaza -) 1 gm PO BID [facility] Last Admin: 01/29/17 21:09 Dose: 1 gm Ondansetron HCl (Zofran Injection) 8 mg IVPB Q12H PRN PRN Reason: NAUSEA AND/OR VOMITING Last Admin: 01/29/17 16:36 Dose: 8 mg Polyethylene Glycol (Miralax (For Daily Use) -) 17 gm PO DAILY [facility] Last Admin: 01/29/17 09:41 Dose: 17 gm Ranitidine HCl (Zantac -) 150 mg PO DAILY [facility] Last Admin: 01/29/17 09:52 Dose: 150 mg Senna (Senna -) 2 tab PO HS PRN PRN Reason: CONSTIPATION Last Admin: 01/29/17 21:09 Dose: 2 tab Tiotropium [place] (Spiriva -) 1 puff IH DAILY [facility] Last Admin: 01/29/17 09:40 Dose: 1 puff Tramadol HCl (Ultram -) 50 mg PO Q6H PRN Last Admin: 01/29/17 22:29 Dose: 50 mg Warfarin Sodium (Coumadin -) 2.5 mg PO DAILY@1800 [facility] Last Admin: 01/29/17 17:12 Dose: 2.5 mg Constitutional: Yes: No Distress, Calm, Obese Eyes: Yes: Conjunctiva Clear, EOM Intact HENT: Yes: Atraumatic, Normocephalic Neck: Yes: Supple, Trachea Midline Cardiovascular: Yes: Regular Rate and Rhythm Respiratory: Yes: Cough, Diminished, On Nasal O2. No: Accessory Muscle Use, Rhonchi, Stridor, Wheezes ...Inspection: Yes: WNL ...Clubbing: No Gastrointestinal: Yes: Normal Bowel Sounds, Soft, Abdomen, Obese Renal/: Yes: WNL Musculoskeletal: Yes: Back Pain Extremities: Yes: WNL Edema: Yes Peripheral Pulses WNL: Yes Integumentary: Yes: WNL Neurological: Yes: WNL, Alert, Oriented ...Motor Strength: WNL Psychiatric: Yes: WNL, Alert, Oriented Labs: Laboratory Results - last 24 hr 01/29/17 01/29/17 01/29/17 11:07 16:35 20:33 WBC RBC Hgb Hct MCV MCH MCHC RDW Plt Count MPV PT with INR INR Sodium Potassium Chloride Carbon Dioxide Anion Gap BUN Creatinine POC Glucometer 130 120 119 Random Glucose Calcium Blood Type Antibody Screen 01/30/17 01/30/17 01/30/17 05:57 06:00 06:00 WBC 5.2 RBC 2.63 L Hgb 8.5 L Hct 25.6 L MCV 97.4 H MCH 32.2 MCHC 33.1 RDW 18.3 H Plt Count 72 L MPV 8.3 PT with INR 30.20 H INR 2.67 H Sodium Potassium Chloride Carbon Dioxide Anion Gap BUN Creatinine POC Glucometer 131 Random Glucose Calcium Blood Type Antibody Screen 01/30/17 01/30/17 06:00 06:00 WBC RBC Hgb Hct MCV MCH MCHC RDW Plt Count MPV PT with INR INR Sodium 133 L Potassium 3.8 Chloride 98 Carbon Dioxide 28 Anion Gap 7 L BUN 8 D Creatinine 0.7 POC Glucometer Random Glucose 125 H Calcium 9.3 Blood Type O NEGATIVE Antibody Screen Negative Problem List - Problems (1) A-fib Code(s): I48.91 - UNSPECIFIED ATRIAL FIBRILLATION Qualifiers: (2) Intractable back pain Code(s): M54.9 - DORSALGIA, UNSPECIFIED (3) Hypothyroid Code(s): E03.9 - HYPOTHYROIDISM, UNSPECIFIED (4) Lymphedema Code(s): I89.0 - LYMPHEDEMA, NOT ELSEWHERE CLASSIFIED (5) Anemia Code(s): D64.9 - ANEMIA, UNSPECIFIED (6) Anxiety and depression Code(s): F41.9 - ANXIETY DISORDER, UNSPECIFIED F32.9 - MAJOR DEPRESSIVE DISORDER, SINGLE EPISODE, UNSPECIFIED (7) Diabetes Code(s): E11.9 - TYPE 2 DIABETES MELLITUS WITHOUT COMPLICATIONS Qualifiers: Diabetes mellitus type: type 2 Diabetes mellitus complication status: without complication (8) HTN (hypertension) Code(s): I10 - ESSENTIAL (PRIMARY) HYPERTENSION Qualifiers: (9) Morbidly obese Code(s): E66.01 - MORBID (SEVERE) OBESITY DUE TO EXCESS CALORIES (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 Code(s): C56.9 - MALIGNANT NEOPLASM OF UNSPECIFIED OVARY C80.0 - DISSEMINATED MALIGNANT NEOPLASM, UNSPECIFIED (11) Pulmonary nodules/lesions, multiple Code(s): R91.8 - OTHER NONSPECIFIC ABNORMAL FINDING OF LUNG FIELD (12) SOB (shortness of breath) Code(s): R06.02 - SHORTNESS OF BREATH Assessment/Plan ABX per ID: cultures thus far negative DO not suspect occult Pulmonary infection O2 as needed Unfortunately given the extent of lung metastasis as the primary etiology of her cough, there are no clear treatment solutions. Continue support care. Coumadin Dr An Problem List - Problems (1) A-fib Code(s): I48.91 - UNSPECIFIED ATRIAL FIBRILLATION Qualifiers: (2) Intractable back pain Code(s): M54.9 - DORSALGIA, UNSPECIFIED (3) Hypothyroid Code(s): E03.9 - HYPOTHYROIDISM, UNSPECIFIED (4) Lymphedema Code(s): I89.0 - LYMPHEDEMA, NOT ELSEWHERE CLASSIFIED (5) Anemia Code(s): D64.9 - ANEMIA, UNSPECIFIED (6) Anxiety and depression Code(s): F41.9 - ANXIETY DISORDER, UNSPECIFIED F32.9 - MAJOR DEPRESSIVE DISORDER, SINGLE EPISODE, UNSPECIFIED (7) Diabetes Code(s): E11.9 - TYPE 2 DIABETES MELLITUS WITHOUT COMPLICATIONS Qualifiers: Diabetes mellitus type: type 2 Diabetes mellitus complication status: without complication (8) HTN (hypertension) Code(s): I10 - ESSENTIAL (PRIMARY) HYPERTENSION Qualifiers: (9) Morbidly obese Code(s): E66.01 - MORBID (SEVERE) OBESITY DUE TO EXCESS CALORIES (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 Code(s): C56.9 - MALIGNANT NEOPLASM OF UNSPECIFIED OVARY C80.0 - DISSEMINATED MALIGNANT NEOPLASM, UNSPECIFIED (11) Pulmonary nodules/lesions, multiple Code(s): R91.8 - OTHER NONSPECIFIC ABNORMAL FINDING OF LUNG FIELD (12) SOB (shortness of breath) Code(s): R06.02 - SHORTNESS OF BREATH
[2017-01-30] MEDS ORDERED: ALBUTEROL SO4 0.5 % INH SOLN 2.5 MG/0.5 ML VIAL.NEB. NEB ONE (11:00)
[2017-01-30] MEDS ORDERED: DEXTROSE 5%-WATER 100 ML IVPB ONE ×2 (11:26→18:16)
[2017-01-30] MEDS ORDERED: CEFEPIME HCL 1 GM VIAL (RESTRICTED TO ID) ONE ×2 (11:26→18:16)
[2017-01-30] MEDS ORDERED: fentaNYL 25mcg/hr PATCH.TD72 TD SCH (11:30)
[2017-01-30] MEDS: RANITIDINE HCL 150 MG TABLET (FP) PO SCH (11:35)
[2017-01-30] MEDS: FUROSEMIDE 40 MG TABLET (FP) PO SCH (11:36)
[2017-01-30] MEDS: LORATADINE 10 MG TABLET PO SCH (11:36)
--- NOTE | 2017-01-30 11:37 | PN ---
Progress Note (short form) - Note Progress Note: Patient seen and examined more awake less cough c/o constipation Last Vital Signs Temp Pulse Resp BP Pulse Ox 97.8 F 84 18 123/59 95 01/30/17 05:43 01/30/17 11:22 01/30/17 11:22 01/30/17 11:22 01/30/17 10:01 Cor: RSR, No murmurs, No gallops Lungs: decreased left base Abd: Soft, Normal bowel sounds, No organomegaly Ext:lymphedema Abnormal Lab Results 01/30/17 01/30/17 01/30/17 06:00 06:00 06:00 RBC 2.63 L Hgb 8.5 L Hct 25.6 L MCV 97.4 H RDW 18.3 H Plt Count 72 L PT with INR 30.20 H INR 2.67 H Sodium 133 L Anion Gap 7 L Random Glucose 125 H Home Medication List Medication Instructions Recorded Confirmed Type Levothyroxine [Synthroid -] 75 mcg PO DAILY 10/17/12 01/02/17 History Loratadine [Claritin -] 10 mg PO DAILY 10/17/12 01/02/17 History Metformin HCl [Glucophage] 500 mg PO BID 10/17/12 01/02/17 History Ragland-3 Acid Ethyl Esters [Lovaza 1,000 mg PO TID 10/17/12 01/02/17 History -] Insulin Aspart [Novolog Flexpen] 35 unit SQ BID 10/14/16 01/02/17 History Potassium Chloride 10 meq PO DAILY 10/24/16 01/02/17 History Diltiazem Cd [Cardizem Cd -] 300 mg PO DAILY 10/25/16 10/25/16 History Furosemide [Lasix -] 40 mg PO DAILY 01/02/17 01/02/17 History Montelukast Na [Singulair -] 10 mg PO HS 01/02/17 01/02/17 History Active Medications Generic Name Dose Route Start Last Admin Trade Name Freq PRN Reason Stop Dose Admin Acetaminophen 325 mg 01/24/17 09:32 01/24/17 09:40 Tylenol - PO 325 mg Q6H PRN Administration PAIN Acetaminophen 650 mg 01/24/17 09:33 01/29/17 06:30 Tylenol - PO 650 mg Q6H PRN Administration PAIN Albuterol Sulfate 1 amp 01/28/17 00:00 01/30/17 06:54 Ventolin 0.042trength) - NEB 1 amp QIDR [facility] Administration Bupropion HCl 150 mg 01/24/17 10:00 01/29/17 09:38 Wellbutrin Xl - PO 150 mg DAILY [facility] Administration Diltiazem HCl 300 mg 01/24/17 10:00 01/29/17 09:38 Cardizem Cd - PO 300 mg DAILY [facility] Administration Fentanyl 1 patch 01/30/17 11:30 Duragesic 25mcg Patch - TD 02/06/17 11:19 Q72H [facility] Furosemide 40 mg 01/24/17 10:00 01/29/17 09:38 Lasix - PO 40 mg DAILY [facility] Administration Glipizide 5 mg 01/24/17 07:00 01/30/17 06:18 Glucotrol - PO 5 mg DAILY@0700 [facility] Administration Guaifenesin 5 ml 01/26/17 20:29 01/29/17 21:11 Diabetic Tussin Dm - PO 5 ml Q6H PRN Administration COUGH Cefepime HCl 1 gm/ Dextrose 100 mls @ 200 mls/hr 01/28/17 14:17 01/30/17 02:00 IVPB 200 mls/hr Q8H-IV [facility] Administration Insulin Aspart 35 units 01/24/17 07:00 01/30/17 06:18 Novolog Mix 70/30 Vial SQ Not Given BIDAC [facility] Insulin Aspart 1 vial 01/24/17 16:45 01/30/17 06:19 Novolog Vial Sliding Scale - SQ Not Given ACHS [facility] Protocol Levothyroxine Sodium 75 mcg 01/24/17 07:00 01/30/17 06:18 Synthroid - PO 75 mcg DAILY@0700 [facility] Administration Loratadine 10 mg 01/24/17 10:00 01/29/17 09:38 Claritin - PO 10 mg DAILY [facility] Administration Metformin HCl 500 mg 01/24/17 07:00 01/30/17 06:18 Glucophage - PO 500 mg BIDAC [facility] Administration Miscellaneous 1 each 01/30/17 11:19 Duragesic Patch Waste TD PRN PRN PAIN Multi-Ingredient Lotion 1 applic 01/25/17 22:00 01/29/17 21:09 Eucerin (Small Jar) - TP 1 applic BID [facility] Administration [id number] Ethyl Esters 1 gm 01/23/17 22:00 01/29/17 21:09 Lovaza - PO 1 gm BID [facility] Administration Ondansetron HCl 8 mg 01/23/17 12:21 01/29/17 16:36 Zofran Injection IVPB 8 mg Q12H PRN Administration NAUSEA AND/OR VOMITING Polyethylene Glycol 17 gm 01/24/17 10:00 01/29/17 09:41 Miralax (For Daily Use) - PO 17 gm DAILY [facility] Administration Ranitidine HCl 150 mg 01/24/17 10:00 01/29/17 09:52 Zantac - PO 150 mg DAILY [facility] Administration Senna 2 tab 01/29/17 10:48 01/29/17 21:09 Senna - PO 2 tab HS PRN Administration CONSTIPATION Tiotropium [place] 1 puff 01/24/17 10:00 01/29/17 09:40 Spiriva - IH 1 puff DAILY [facility] Administration Tramadol HCl 50 mg 01/29/17 06:52 01/29/17 22:29 Ultram - PO 50 mg Q6H PRN Administration Warfarin Sodium 2.5 mg 01/29/17 18:00 01/29/17 17:12 Coumadin - PO 2.5 mg DAILY@1800 [facility] Administration A/P 61 y/o with metastatic high grade mullerian cancer, serous adenoca s/p carbo/taxol with stable disease, with most recent progression C1 D5 gemzar lethargy, increase WBC count, increase cough ? bronchitis check sputum culture blood/urine cultures negative head CT neg. Chest CT stable on iv fluids/broad spectrum antibiotics f/u sputum cultures pain control --on tramadol. increase fentanyl to 25 mcg Q 72hrs, constipation ---increase miralax 17g PO bid afib On coumadin chemotherapy induced thrombocytopenia--may need platelets if < 50,000 as patient on anticoagulation aswell f/u foundation assay results
[2017-01-30] MEDS: POLYETHYLENE GLYCOL 3350 119 GM BTL PO SCH ×2 (11:38→23:30)
--- NOTE | 2017-01-30 11:45 | PN ---
Progress Note, Physician Chief Complaint: feeling tired has pain in back - Current Medication List Current Medications: Active Medications Acetaminophen (Tylenol -) 325 mg PO Q6H PRN PRN Reason: PAIN Last Admin: 01/24/17 09:40 Dose: 325 mg Acetaminophen (Tylenol -) 650 mg PO Q6H PRN PRN Reason: PAIN Last Admin: 01/29/17 06:30 Dose: 650 mg Albuterol Sulfate (Ventolin 0.042trength) -) 1 amp NEB QIDR [facility] Last Admin: 01/30/17 06:54 Dose: 1 amp Bupropion HCl (Wellbutrin Xl -) 150 mg PO DAILY [facility] Last Admin: 01/30/17 11:36 Dose: 150 mg Diltiazem HCl (Cardizem Cd -) 300 mg PO DAILY [facility] Last Admin: 01/30/17 11:36 Dose: 300 mg Fentanyl (Duragesic 25mcg Patch -) 1 patch TD Q72H [facility] Stop: 02/06/17 11:19 Furosemide (Lasix -) 40 mg PO DAILY [facility] Last Admin: 01/30/17 11:36 Dose: 40 mg Glipizide (Glucotrol -) 5 mg PO DAILY@0700 [facility] Last Admin: 01/30/17 06:18 Dose: 5 mg Guaifenesin (Diabetic Tussin Dm -) 5 ml PO Q6H PRN PRN Reason: COUGH Last Admin: 01/29/17 21:11 Dose: 5 ml Cefepime HCl 1 gm/ Dextrose 100 mls @ 200 mls/hr IVPB Q8H-IV [facility] Last Admin: 01/30/17 11:33 Dose: 200 mls/hr Insulin Aspart (Novolog Mix 70/30 Vial) 35 units SQ BIDAC [facility] Last Admin: 01/30/17 06:18 Dose: Not Given Insulin Aspart (Novolog Vial Sliding Scale -) 1 vial SQ ACHS [facility] PRN Reason: Protocol Last Admin: 01/30/17 06:19 Dose: Not Given Levothyroxine Sodium (Synthroid -) 75 mcg PO DAILY@0700 [facility] Last Admin: 01/30/17 06:18 Dose: 75 mcg Loratadine (Claritin -) 10 mg PO DAILY [facility] Last Admin: 01/30/17 11:36 Dose: 10 mg Metformin HCl (Glucophage -) 500 mg PO BIDAC [facility] Last Admin: 01/30/17 06:18 Dose: 500 mg Miscellaneous (Duragesic Patch Waste) 1 each TD PRN PRN PRN Reason: PAIN Multi-Ingredient Lotion (Eucerin (Small Jar) -) 1 applic TP BID [facility] Last Admin: 01/29/17 21:09 Dose: 1 applic [id number]-1-[id number] Ethyl Esters (Lovaza -) 1 gm PO BID [facility] Last Admin: 01/29/17 21:09 Dose: 1 gm Ondansetron HCl (Zofran Injection) 8 mg IVPB Q12H PRN PRN Reason: NAUSEA AND/OR VOMITING Last Admin: 01/29/17 16:36 Dose: 8 mg Polyethylene Glycol (Miralax (For Daily Use) -) 17 gm PO DAILY [facility] Last Admin: 01/30/17 11:38 Dose: 17 gm Ranitidine HCl (Zantac -) 150 mg PO DAILY [facility] Last Admin: 01/30/17 11:35 Dose: 150 mg Senna (Senna -) 2 tab PO HS PRN PRN Reason: CONSTIPATION Last Admin: 01/29/17 21:09 Dose: 2 tab Tiotropium [place] (Spiriva -) 1 puff IH DAILY [facility] Last Admin: 01/29/17 09:40 Dose: 1 puff Tramadol HCl (Ultram -) 50 mg PO Q6H PRN Last Admin: 01/29/17 22:29 Dose: 50 mg Warfarin Sodium (Coumadin -) 2.5 mg PO DAILY@1800 [facility] Last Admin: 01/29/17 17:12 Dose: 2.5 mg - Objective Vital Signs: Vital Signs Temperature 97.8 F 01/30/17 05:43 Pulse Rate 84 01/30/17 11:22 Respiratory Rate 18 01/30/17 11:22 Blood Pressure 123/59 01/30/17 11:22 O2 Sat by Pulse Oximetry (%) 95 01/30/17 10:01 Constitutional: Yes: Mild Distress Cardiovascular: Yes: Pulse Irregular Respiratory: Yes: Diminished Gastrointestinal: Yes: Normal Bowel Sounds, Soft, Abdomen, Obese. No: Tenderness Edema: Yes Labs: CBC, BMP 01/30/17 06:00 01/30/17 06:00 INR, PTT INR 2.67 (0.82-1.09) H 01/30/17 06:00 Problem List - Problems (1) A-fib Code(s): I48.91 - UNSPECIFIED ATRIAL FIBRILLATION Qualifiers: (2) Depression, major, severe recurrence Code(s): F33.2 - MAJOR DEPRESSV DISORDER, RECURRENT SEVERE W/O PSYCH FEATURES (3) Primary cancer of ovary with widespread metastatic disease Code(s): C56.9 - MALIGNANT NEOPLASM OF UNSPECIFIED OVARY C80.0 - DISSEMINATED MALIGNANT NEOPLASM, UNSPECIFIED (4) Metabolic encephalopathy Code(s): G93.41 - METABOLIC ENCEPHALOPATHY (5) Intractable back pain Code(s): M54.9 - DORSALGIA, UNSPECIFIED Assessment/Plan PLAN pt appears severely depressed-- Pain control with Fetanyl patch and Tramadol as needed- on lasix , monitor renal function continue with meds O 2 as needed, nebs as needed
[2017-01-30] MEDS: MINERAL OIL/PETROLAT/WATER TOPICAL CREAM 113 GM JAR TP SCH ×2 (13:41→21:06)
[2017-01-30] MEDS: OMEGA-3 ACID ETHYL ESTERS (FATTY-ACIDS) 1 GM CAPSULE (FP) PO SCH ×2 (13:41→21:05)
--- NOTE | 2017-01-30 15:57 | PN ---
Progress Note, Physician History of Present Illness: C/O dry cough No c/o chest pain/ dyspnea No c/o fever/ chills Afebrile WBC WNL - Current Medication List Current Medications: Active Medications Acetaminophen (Tylenol -) 325 mg PO Q6H PRN PRN Reason: PAIN Last Admin: 01/24/17 09:40 Dose: 325 mg Acetaminophen (Tylenol -) 650 mg PO Q6H PRN PRN Reason: PAIN Last Admin: 01/29/17 06:30 Dose: 650 mg Albuterol Sulfate (Ventolin 0.042trength) -) 1 amp NEB QIDR [facility] Last Admin: 01/30/17 12:09 Dose: 1 amp Bupropion HCl (Wellbutrin Xl -) 150 mg PO DAILY [facility] Last Admin: 01/30/17 11:36 Dose: 150 mg Diltiazem HCl (Cardizem Cd -) 300 mg PO DAILY [facility] Last Admin: 01/30/17 11:36 Dose: 300 mg Fentanyl (Duragesic 25mcg Patch -) 1 patch TD Q72H [facility] Stop: 02/06/17 11:19 Furosemide (Lasix -) 40 mg PO DAILY [facility] Last Admin: 01/30/17 11:36 Dose: 40 mg Glipizide (Glucotrol -) 5 mg PO DAILY@0700 [facility] Last Admin: 01/30/17 06:18 Dose: 5 mg Guaifenesin (Diabetic Tussin Dm -) 5 ml PO Q6H PRN PRN Reason: COUGH Last Admin: 01/29/17 21:11 Dose: 5 ml Cefepime HCl 1 gm/ Dextrose 100 mls @ 200 mls/hr IVPB Q8H-IV [facility] Last Admin: 01/30/17 11:33 Dose: 200 mls/hr Insulin Aspart (Novolog Mix 70/30 Vial) 35 units SQ BIDAC [facility] Last Admin: 01/30/17 06:18 Dose: Not Given Insulin Aspart (Novolog Vial Sliding Scale -) 1 vial SQ ACHS [facility] PRN Reason: Protocol Last Admin: 01/30/17 12:14 Dose: Not Given Levothyroxine Sodium (Synthroid -) 75 mcg PO DAILY@0700 [facility] Last Admin: 01/30/17 06:18 Dose: 75 mcg Loratadine (Claritin -) 10 mg PO DAILY [facility] Last Admin: 01/30/17 11:36 Dose: 10 mg Metformin HCl (Glucophage -) 500 mg PO BIDAC [facility] Last Admin: 01/30/17 06:18 Dose: 500 mg Miscellaneous (Duragesic Patch Waste) 1 each TD PRN PRN PRN Reason: PAIN Multi-Ingredient Lotion (Eucerin (Small Jar) -) 1 applic TP BID [facility] Last Admin: 01/30/17 13:41 Dose: Not Given Lmvos-5-Xfuy Ethyl Esters (Lovaza -) 1 gm PO BID [facility] Last Admin: 01/30/17 13:41 Dose: 1 gm Ondansetron HCl (Zofran Injection) 8 mg IVPB Q12H PRN PRN Reason: NAUSEA AND/OR VOMITING Last Admin: 01/29/17 16:36 Dose: 8 mg Polyethylene Glycol (Miralax (For Daily Use) -) 17 gm PO BID [facility] Ranitidine HCl (Zantac -) 150 mg PO DAILY [facility] Last Admin: 01/30/17 11:35 Dose: 150 mg Senna (Senna -) 2 tab PO HS PRN PRN Reason: CONSTIPATION Last Admin: 01/29/17 21:09 Dose: 2 tab Tiotropium [place] (Spiriva -) 1 puff IH DAILY [facility] Last Admin: 01/29/17 09:40 Dose: 1 puff Tramadol HCl (Ultram -) 50 mg PO Q6H PRN Last Admin: 01/29/17 22:29 Dose: 50 mg Warfarin Sodium (Coumadin -) 2.5 mg PO DAILY@1800 [facility] Last Admin: 01/29/17 17:12 Dose: 2.5 mg - Objective Vital Signs: Vital Signs Temperature 98.2 F 01/30/17 13:43 Pulse Rate 100 H 01/30/17 13:43 Respiratory Rate 20 01/30/17 13:43 Blood Pressure 127/54 01/30/17 13:43 O2 Sat by Pulse Oximetry (%) 95 01/30/17 10:01 Constitutional: Yes: Obese Cardiovascular: Yes: Regular Rate and Rhythm, S1, S2 Respiratory: Yes: CTA Bilaterally Gastrointestinal: Yes: Normal Bowel Sounds, Soft. No: Tenderness Edema: Yes Integumentary: Yes: Other (no erythema at port) Labs: CBC, BMP 01/30/17 06:00 01/30/17 06:00 INR, PTT INR 2.67 (0.82-1.09) H 01/30/17 06:00 Assessment/Plan Metastatic carcinoma S/P altered mental status/ Possible sepsis- improved Thrombocytopenia cultures prelim no growth On cefepime
[2017-01-30] MEDS: TIOTROPIUM BROMIDE 18 MCG/INH (DEVICE W/ 5 CAPSULES) IH SCH (18:10)
[2017-01-30] MEDS: traMADol HCL 50 MG TABLET PO PRN (18:20)
[2017-01-30] MEDS: WARFARIN NA 2.5 MG TABLET (FP) PO SCH (18:21)
[2017-01-30] MEDS ORDERED: PT OWN MED DRAWER 7, Y5N ONE ×2 (20:57→22:52)
[2017-01-30] MEDS: fentaNYL 25mcg/hr PATCH.TD72 TD SCH (21:01)
[2017-01-30] MEDS: guaiFENesin/D-M SUGAR-FREE/ACLHOL-FREE 118 ML BOTTLE PO PRN (23:30)
[2017-01-31] MEDS: ALBUTEROL SO4 0.042% IH SOL 1.25 MG/3 ML VIAL.NEB NEB SCH ×5 (00:05→23:58)
[2017-01-31] MEDS ORDERED: DEXTROSE 5%-WATER 100 ML IVPB ONE ×2 (02:10→10:49)
[2017-01-31] MEDS ORDERED: CEFEPIME HCL 1 GM VIAL (RESTRICTED TO ID) ONE ×2 (02:10→10:48)
[2017-01-31] MEDS: CEFEPIME 1 GM in DEXTROSE 5%-WATER 100 ML IVPB SCH ×3 (02:14→18:41)
[2017-01-31] MEDS: FENTANYL PATCH WASTE TD PRN (02:15)
[2017-01-31] MEDS: INSULIN (NOVOLOG MIX 70/30) 100 UNITS/ML MDV SQ SCH ×2 (06:13→18:40)
[2017-01-31] MEDS: INSULIN SLIDING SCALE (NOVOLOG) 1 VIAL SQ SCH ×4 (06:13→21:37)
[2017-01-31] MEDS: metFORMIN HCL 500 MG TABLET (FP) PO SCH ×3 (06:18→18:54)
[2017-01-31] MEDS: LEVOTHYROXINE NA 75 MCG TABLET (FP) PO SCH (06:18)
[2017-01-31] MEDS: glipiZIDE 5 MG TABLET (FP) PO SCH (06:18)
[2017-01-31 07:38] LABS: BASOPHIL 0.3 % (0-2.0); EOSINOPHIL 0.4 % (0-4.5); MCH 32.3 pg (25.7-33.7); MCHC 33.3 g/dl (32.0-36.0); MEAN CELL VOLUME 96.9 fl (80-96); MEAN PLT VOLUME 8.5 fl (7.5-11.1); NEUTROPHILS 79.1 % (42.8-82.8); PLATELET COUNT 63 K/MM3 (134-434); RDW 18.1 % (11.6-15.6); WHITE BLOOD COUNT 4.9 K/mm3 (4.0-10.0)
[2017-01-31 08:18] LABS: ALBUMIN 2.2 g/dl (3.4-5.0); ALK PHOS 139 U/L (45-117); ANION GAP 9 (8-16); BILIRUBIN,TOTAL 0.6 mg/dL (0.2-1.0); CALCIUM 9.3 mg/dL (8.5-10.1); CO2 29 mmol/L (21-32); CREATININE 0.7 mg/dL (0.55-1.02); GLUCOSE,RANDOM 109 mg/dL (74-106); SGOT/AST 79 U/L (15-37); SGPT/ALT 40 U/L (12-78); TOT PROT 6.1 g/dl (6.4-8.2)
[2017-01-31] MEDS: traMADol HCL 50 MG TABLET PO PRN ×2 (08:46→21:38)
[2017-01-31] MEDS ORDERED: PT OWN MED DRAWER 7, Y5N ONE ×2 (10:48→18:22)
--- NOTE | 2017-01-31 11:03 | PN ---
Progress Note (short form) - Note Progress Note: PULMONARY WELL KNOWN TO OUR SERVICE OOB TO CHAIR COUGH CONTINUES SLIGHTLY BETTER VSS/AFEBRILE PALE/ANICTERIC DISTANT BREATH SOUNDS S1S2 OBESE EDEMA LABS/MEDS/NOTES/IMAGING REVIEWED (1) A-fib Code(s): I48.91 - UNSPECIFIED ATRIAL FIBRILLATION Qualifiers: (2) Intractable back pain Code(s): M54.9 - DORSALGIA, UNSPECIFIED (3) Hypothyroid Code(s): E03.9 - HYPOTHYROIDISM, UNSPECIFIED (4) Lymphedema Code(s): I89.0 - LYMPHEDEMA, NOT ELSEWHERE CLASSIFIED (5) Anemia Code(s): D64.9 - ANEMIA, UNSPECIFIED (6) Anxiety and depression Code(s): F41.9 - ANXIETY DISORDER, UNSPECIFIED F32.9 - MAJOR DEPRESSIVE DISORDER, SINGLE EPISODE, UNSPECIFIED (7) Diabetes Code(s): E11.9 - TYPE 2 DIABETES MELLITUS WITHOUT COMPLICATIONS Qualifiers: Diabetes mellitus type: type 2 Diabetes mellitus complication status: without complication (8) HTN (hypertension) Code(s): I10 - ESSENTIAL (PRIMARY) HYPERTENSION Qualifiers: (9) Morbidly obese Code(s): E66.01 - MORBID (SEVERE) OBESITY DUE TO EXCESS CALORIES (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 Code(s): C56.9 - MALIGNANT NEOPLASM OF UNSPECIFIED OVARY C80.0 - DISSEMINATED MALIGNANT NEOPLASM, UNSPECIFIED (11) Pulmonary nodules/lesions, multiple Code(s): R91.8 - OTHER NONSPECIFIC ABNORMAL FINDING OF LUNG FIELD (12) SOB (shortness of breath) Code(s): R06.02 - SHORTNESS OF BREATH ANTIBIOTICS/BRONCHODILATORS/O2/ANTICOAGULATION/COUGH SUPPRESSANT/ANALGESICS ONCOLOGY FOLLOW UP Amy SULLIVAN MD
[2017-01-31] MEDS: RANITIDINE HCL 150 MG TABLET (FP) PO SCH (11:04)
[2017-01-31] MEDS: TIOTROPIUM BROMIDE 18 MCG/INH (DEVICE W/ 5 CAPSULES) IH SCH (11:04)
[2017-01-31] MEDS: FUROSEMIDE 40 MG TABLET (FP) PO SCH (11:05)
[2017-01-31] MEDS: OMEGA-3 ACID ETHYL ESTERS (FATTY-ACIDS) 1 GM CAPSULE (FP) PO SCH ×2 (11:05→21:21)
[2017-01-31] MEDS: LORATADINE 10 MG TABLET PO SCH (11:05)
[2017-01-31] MEDS: MINERAL OIL/PETROLAT/WATER TOPICAL CREAM 113 GM JAR TP SCH ×2 (11:06→21:21)
[2017-01-31] MEDS: POLYETHYLENE GLYCOL 3350 119 GM BTL PO SCH ×2 (11:10→21:22)
--- NOTE | 2017-01-31 12:40 | PN ---
Progress Note (short form) - Note Progress Note: Patient seen and examined. chart reviewed. feels her cough is becoming dry. Feels a bit better than last few days. O/E General Appearance: Obese Lung: Clear to auscultation, Other (decreased Lt. lung base) Skin: itching excoriations. Abdomen: Soft, No tenderness, Normal bowel sounds Extremities: Other (lymphedema), some bruises seen in the lower Neurological: Intact CBC, BMP 01/31/17 06:00 01/31/17 06:00 Current Medications Generic Name Dose Route Start Last Admin Trade Name Freq PRN Reason Stop Dose Admin Acetaminophen 325 mg 01/24/17 09:32 01/24/17 09:40 Tylenol - PO 325 mg Q6H PRN Administration PAIN Acetaminophen 650 mg 01/24/17 09:33 01/29/17 06:30 Tylenol - PO 650 mg Q6H PRN Administration PAIN Albuterol Sulfate 1 amp 01/28/17 00:00 01/31/17 11:54 Ventolin 0.042trength) - NEB 1 amp QIDR VIRGILIO Administration Bupropion HCl 150 mg 01/24/17 10:00 01/31/17 11:12 Wellbutrin Xl - PO 150 mg DAILY VIRGILIO Administration Diltiazem HCl 300 mg 01/24/17 10:00 01/31/17 11:05 Cardizem Cd - PO 300 mg DAILY VIRGILIO Administration Fentanyl 1 patch 01/30/17 18:45 01/30/17 21:01 Duragesic 25mcg Patch - TD 1 patch Q72H VIRGILIO Administration Furosemide 40 mg 01/24/17 10:00 01/31/17 11:05 Lasix - PO 40 mg DAILY VIRGILIO Administration Glipizide 5 mg 01/24/17 07:00 01/31/17 06:18 Glucotrol - PO 5 mg DAILY@0700 V[facility]GILIO Administration Guaifenesin 5 ml 01/26/17 20:29 01/30/17 23:30 Diabetic Tussin Dm - PO 5 ml Q6H PRN Administration COUGH Cefepime HCl 1 gm/ Dextrose 100 mls @ 200 mls/hr 01/28/17 14:17 01/31/17 11:04 IVPB 200 mls/hr Q8H-IV VIRGILIO Administration Insulin Aspart 35 units 01/24/17 07:00 01/31/17 06:13 Novolog Mix 70/30 Vial SQ Not Given BIDAC VIRGILIO Insulin Aspart 1 vial 01/24/17 16:45 01/31/17 06:13 Novolog Vial Sliding Scale - SQ Not Given ACHS [facility] Protocol Levothyroxine Sodium 75 mcg 01/24/17 07:00 01/31/17 06:18 Synthroid - PO 75 mcg DAILY@0700 V[facility]GILIO Administration Loratadine 10 mg 01/24/17 10:00 01/31/17 11:05 Claritin - PO 10 mg DAILY VIRGILIO Administration Metformin HCl 500 mg 01/24/17 07:00 01/31/17 06:18 Glucophage - PO 500 mg BIDAC VIRGILIO Administration Miscellaneous 1 each 01/30/17 11:19 01/31/17 02:15 Duragesic Patch Waste TD 1 each PRN PRN Administration PAIN Multi-Ingredient Lotion 1 applic 01/25/17 22:00 01/31/17 11:06 Eucerin (Small Jar) - TP Not Given BID VIRGILIO Fzhqq-6-Khyn Ethyl Esters 1 gm 01/23/17 22:00 01/31/17 11:05 Lovaza - PO 1 gm BID VIRGILIO Administration Ondansetron HCl 8 mg 01/23/17 12:21 01/29/17 16:36 Zofran Injection IVPB 8 mg Q12H PRN Administration NAUSEA AND/OR VOMITING Polyethylene Glycol 17 gm 01/30/17 22:00 01/31/17 11:10 Miralax (For Daily Use) - PO 17 gm BID V[facility]GILIO Administration Potassium Chloride 40 meq 01/31/17 12:37 K-Dur - PO 01/31/17 12:38 ONCE ONE Ranitidine HCl 150 mg 01/24/17 10:00 01/31/17 11:04 Zantac - PO 150 mg DAILY VIRGILIO Administration Senna 2 tab 01/29/17 10:48 01/29/17 21:09 Senna - PO 2 tab HS PRN Administration CONSTIPATION Tiotropium [place] 1 puff 01/24/17 10:00 01/31/17 11:04 Spiriva - IH 1 puff DAILY VIRGILIO Administration Tramadol HCl 50 mg 01/29/17 06:52 01/31/17 08:46 Ultram - PO 50 mg Q6H PRN Administration Warfarin Sodium 2.5 mg 01/29/17 18:00 01/30/17 18:21 Coumadin - PO 2.5 mg DAILY@1800 V[facility]GILIO Administration Assessment/Plan: Metastatic high grade mullerian cancer. on second line chemo, s.p C1D1 gemzar on 01/23. -pain control: fentanyl patch ( increased yesterday to 25mch/hr) , tramadol -No longer lethargic. On cefepime. ID f/u appreciated. -decreased counts: not neutropenic, thrombocytopenia from gem, will continue to monitor. -poor appetite : may add mirtazapine at a later time. -pulm f/u appreciated -daily INR check -hypok: replete today -PT eval. -overall she feels "down". CD did help her in the past, will consult him in the hospital. Appreciate f/u -likely d/c post weekend.
--- NOTE | 2017-01-31 12:54 | PN ---
Progress Note (short form) - Note Progress Note: pt seen/ examined . chart reviewed feels little better mood low chronic ill appearance all f/u noted Vital Signs Temp 97.9 F 01/31/17 05:52 Pulse 91 H 01/31/17 05:52 Resp 20 01/31/17 05:52 BP 120/47 01/31/17 10:41 Pulse Ox 97 01/30/17 21:00 Intake & Output 01/30/17 01/31/17 01/31/17 23:59 11:59 23:59 Intake Total 540 100 Balance 540 100 Intake: IVPB 100 100 Oral 440 Other: Voiding Method Toilet Toilet # Unmeasured Voids Void 1 Bowel Movement No Active Medications Acetaminophen (Tylenol -) 325 mg PO Q6H PRN PRN Reason: PAIN Last Admin: 01/24/17 09:40 Dose: 325 mg Acetaminophen (Tylenol -) 650 mg PO Q6H PRN PRN Reason: PAIN Last Admin: 01/29/17 06:30 Dose: 650 mg Albuterol Sulfate (Ventolin 0.042trength) -) 1 amp NEB QIDR VIRGILIO Last Admin: 01/31/17 11:54 Dose: 1 amp Bupropion HCl (Wellbutrin Xl -) 150 mg PO DAILY VIRGILIO Last Admin: 01/31/17 11:12 Dose: 150 mg Diltiazem HCl (Cardizem Cd -) 300 mg PO DAILY [facility] Last Admin: 01/31/17 11:05 Dose: 300 mg Fentanyl (Duragesic 25mcg Patch -) 1 patch TD Q72H VIRGILIO Last Admin: 01/30/17 21:01 Dose: 1 patch Furosemide (Lasix -) 40 mg PO DAILY VIRG[facility]IO Last Admin: 01/31/17 11:05 Dose: 40 mg Glipizide (Glucotrol -) 5 mg PO DAILY@0700 VIRG[facility]IO Last Admin: 01/31/17 06:18 Dose: 5 mg Guaifenesin (Diabetic Tussin Dm -) 5 ml PO Q6H PRN PRN Reason: COUGH Last Admin: 01/30/17 23:30 Dose: 5 ml Cefepime HCl 1 gm/ Dextrose 100 mls @ 200 mls/hr IVPB Q8H-IV VIRGILIO Last Admin: 01/31/17 11:04 Dose: 200 mls/hr Insulin Aspart (Novolog Mix 70/30 Vial) 35 units SQ BIDAC [facility] Last Admin: 01/31/17 06:13 Dose: Not Given Insulin Aspart (Novolog Vial Sliding Scale -) 1 vial SQ ACHS [facility] PRN Reason: Protocol Last Admin: 01/31/17 06:13 Dose: Not Given Levothyroxine Sodium (Synthroid -) 75 mcg PO DAILY@0700 [facility] Last Admin: 01/31/17 06:18 Dose: 75 mcg Loratadine (Claritin -) 10 mg PO DAILY [facility] Last Admin: 01/31/17 11:05 Dose: 10 mg Metformin HCl (Glucophage -) 500 mg PO BIDAC [facility] Last Admin: 01/31/17 06:18 Dose: 500 mg Miscellaneous (Duragesic Patch Waste) 1 each TD PRN PRN PRN Reason: PAIN Last Admin: 01/31/17 02:15 Dose: 1 each Multi-Ingredient Lotion (Eucerin (Small Jar) -) 1 applic TP BID [facility] Last Admin: 01/31/17 11:06 Dose: Not Given Jnaue-5-Rjuw Ethyl Esters (Lovaza -) 1 gm PO BID [facility] Last Admin: 01/31/17 11:05 Dose: 1 gm Ondansetron HCl (Zofran Injection) 8 mg IVPB Q12H PRN PRN Reason: NAUSEA AND/OR VOMITING Last Admin: 01/29/17 16:36 Dose: 8 mg Polyethylene Glycol (Miralax (For Daily Use) -) 17 gm PO BID [facility] Last Admin: 01/31/17 11:10 Dose: 17 gm Potassium Chloride (K-Dur -) 40 meq PO ONCE ONE Stop: 01/31/17 13:31 Ranitidine HCl (Zantac -) 150 mg PO DAILY [facility] Last Admin: 01/31/17 11:04 Dose: 150 mg Senna (Senna -) 2 tab PO HS PRN PRN Reason: CONSTIPATION Last Admin: 01/29/17 21:09 Dose: 2 tab Tiotropium [place] (Spiriva -) 1 puff IH DAILY [facility] Last Admin: 01/31/17 11:04 Dose: 1 puff Tramadol HCl (Ultram -) 50 mg PO Q6H PRN Last Admin: 01/31/17 08:46 Dose: 50 mg Warfarin Sodium (Coumadin -) 2.5 mg PO DAILY@1800 [facility] Last Admin: 01/30/17 18:21 Dose: 2.5 mg CBC, BMP 01/31/17 06:00 01/31/17 06:00 Microbiology 01/27/17 20:00 Blood Culture - Preliminary Blood - Neeta Cath NO GROWTH OBTAINED AFTER 72 HOURS, INCUBATION TO CONTINUE FOR 2 DAYS. 01/27/17 15:30 Blood Culture - Preliminary Blood - Neeta Cath NO GROWTH OBTAINED AFTER 72 HOURS, INCUBATION TO CONTINUE FOR 2 DAYS. 01/27/17 15:30 Blood Culture - Preliminary Blood - Peripheral Venous NO GROWTH OBTAINED AFTER 72 HOURS, INCUBATION TO CONTINUE FOR 2 DAYS. 01/29/17 06:30 Gram Stain - Final Sputum - Expectorated Sputum Culture - Preliminary Pending Organism Physical Exam. Constitutional: Yes: No Distress/ weak Cardiovascular: Yes: Pulse Irregular Respiratory: Yes: Diminished at bases Gastrointestinal: Yes: Normal Bowel Sounds, Soft, Abdomen, Obese. No: Distention, Tenderness Edema: Yes Problem List - Problems (1) A-fib Code(s): I48.91 - UNSPECIFIED ATRIAL FIBRILLATION Qualifiers: (2) Depression, major, severe recurrence Code(s): F33.2 - MAJOR DEPRESSV DISORDER, RECURRENT SEVERE W/O PSYCH FEATURES (3) Primary cancer of ovary with widespread metastatic disease Code(s): C56.9 - MALIGNANT NEOPLASM OF UNSPECIFIED OVARY C80.0 - DISSEMINATED MALIGNANT NEOPLASM, UNSPECIFIED (4) Metabolic encephalopathy Code(s): G93.41 - METABOLIC ENCEPHALOPATHY (5) Intractable back pain Code(s): M54.9 - DORSALGIA, UNSPECIFIED Assessment/Plan stable problems as listed continue present care overall condition poor pt is DNR/ Di. will follow
--- NOTE | 2017-01-31 13:10 | PN ---
Progress Note (short form) - Note Progress Note: The patient was seen for depression. She indicated that the antidepressant she has been taking since I last saw her does not seem to improve her mood. She was advised to discontinue using the relaxation tape until we can monitor her HR while engaging in diaphragmatic breathing as deep breathing can reduce HR significantly. It can also have an impact on her A-Fib. We discussed the use of guided imagery while listening to meditative music for mood enhancement and pain reduction. In addition, imagery of a cold compress on her back if the pain feels hot was also recommended. In addition, she was advised to take "time out" from her concerns, pain and suffering while focussing on pleasant past experiences that brought nico to her-family trips for example. It would be helpful if we had a quiet room where we can engage in these types of interventions, such as the lounge. The patient was receptive to the suggestions. She will be seen again next week unless discharged. Thank you for the referral.
[2017-01-31] MEDS ORDERED: POTASSIUM CHLORIDE TABS 20 MEQ TABLET.ER (FP) PO ONE (13:30)
--- NOTE | 2017-01-31 14:50 | PN ---
Progress Note, Physician History of Present Illness: Awake, alert Reports cough now more productive Afebrile WBC 4.9 plt 63 Blood c/s (-) - Current Medication List Current Medications: Active Medications Acetaminophen (Tylenol -) 325 mg PO Q6H PRN PRN Reason: PAIN Last Admin: 01/24/17 09:40 Dose: 325 mg Acetaminophen (Tylenol -) 650 mg PO Q6H PRN PRN Reason: PAIN Last Admin: 01/29/17 06:30 Dose: 650 mg Albuterol Sulfate (Ventolin 0.042trength) -) 1 amp NEB QIDR [facility] Last Admin: 01/31/17 11:54 Dose: 1 amp Bupropion HCl (Wellbutrin Xl -) 150 mg PO DAILY [facility] Last Admin: 01/31/17 11:12 Dose: 150 mg Diltiazem HCl (Cardizem Cd -) 300 mg PO DAILY [facility] Last Admin: 01/31/17 11:05 Dose: 300 mg Fentanyl (Duragesic 25mcg Patch -) 1 patch TD Q72H [facility] Last Admin: 01/30/17 21:01 Dose: 1 patch Furosemide (Lasix -) 40 mg PO DAILY [facility] Last Admin: 01/31/17 11:05 Dose: 40 mg Glipizide (Glucotrol -) 5 mg PO DAILY@0700 [facility] Last Admin: 01/31/17 06:18 Dose: 5 mg Guaifenesin (Diabetic Tussin Dm -) 5 ml PO Q6H PRN PRN Reason: COUGH Last Admin: 01/30/17 23:30 Dose: 5 ml Cefepime HCl 1 gm/ Dextrose 100 mls @ 200 mls/hr IVPB Q8H-IV VIRGILIO Last Admin: 01/31/17 11:04 Dose: 200 mls/hr Insulin Aspart (Novolog Mix 70/30 Vial) 35 units SQ BIDAC [facility] Last Admin: 01/31/17 06:13 Dose: Not Given Insulin Aspart (Novolog Vial Sliding Scale -) 1 vial SQ ACHS VIRGILIO PRN Reason: Protocol Last Admin: 01/31/17 13:58 Dose: Not Given Levothyroxine Sodium (Synthroid -) 75 mcg PO DAILY@0700 [facility] Last Admin: 01/31/17 06:18 Dose: 75 mcg Loratadine (Claritin -) 10 mg PO DAILY [facility] Last Admin: 01/31/17 11:05 Dose: 10 mg Metformin HCl (Glucophage -) 500 mg PO BIDAC [facility] Last Admin: 01/31/17 06:18 Dose: 500 mg Miscellaneous (Duragesic Patch Waste) 1 each TD PRN PRN PRN Reason: PAIN Last Admin: 01/31/17 02:15 Dose: 1 each Multi-Ingredient Lotion (Eucerin (Small Jar) -) 1 applic TP BID [facility] Last Admin: 01/31/17 11:06 Dose: Not Given Aubeb-4-Tvue Ethyl Esters (Lovaza -) 1 gm PO BID [facility] Last Admin: 01/31/17 11:05 Dose: 1 gm Ondansetron HCl (Zofran Injection) 8 mg IVPB Q12H PRN PRN Reason: NAUSEA AND/OR VOMITING Last Admin: 01/29/17 16:36 Dose: 8 mg Polyethylene Glycol (Miralax (For Daily Use) -) 17 gm PO BID [facility] Last Admin: 01/31/17 11:10 Dose: 17 gm Ranitidine HCl (Zantac -) 150 mg PO DAILY [facility] Last Admin: 01/31/17 11:04 Dose: 150 mg Senna (Senna -) 2 tab PO HS PRN PRN Reason: CONSTIPATION Last Admin: 01/29/17 21:09 Dose: 2 tab Tiotropium [place] (Spiriva -) 1 puff IH DAILY [facility] Last Admin: 01/31/17 11:04 Dose: 1 puff Tramadol HCl (Ultram -) 50 mg PO Q6H PRN Last Admin: 01/31/17 08:46 Dose: 50 mg Warfarin Sodium (Coumadin -) 2.5 mg PO DAILY@1800 [facility] Last Admin: 01/30/17 18:21 Dose: 2.5 mg - Objective Vital Signs: Vital Signs Temperature 97.7 F 01/31/17 13:36 Pulse Rate 95 H 01/31/17 13:36 Respiratory Rate 20 01/31/17 13:36 Blood Pressure 109/57 01/31/17 13:36 O2 Sat by Pulse Oximetry (%) 97 01/30/17 21:00 Constitutional: Yes: No Distress Eyes: Yes: Conjunctiva Clear Cardiovascular: Yes: Regular Rate and Rhythm, S1, S2 Respiratory: Yes: CTA Bilaterally Gastrointestinal: Yes: Normal Bowel Sounds, Soft, Abdomen, Obese. No: Tenderness Edema: Yes Integumentary: Yes: Other (port site no erythema) Labs: CBC, BMP 01/31/17 06:00 01/31/17 06:00 INR, PTT INR 2.67 (0.82-1.09) H 01/30/17 06:00 Assessment/Plan Metastatic carcinoma S/P altered mental status/ Possible sepsis- improved Thrombocytopenia cultures no growth On cefepime
[2017-01-31 17:43] LABS: ANION GAP 11 (8-16); CALCIUM 9.5 mg/dL (8.5-10.1); CO2 27 mmol/L (21-32); CREATININE 0.7 mg/dL (0.55-1.02); GLUCOSE,RANDOM 117 mg/dL (74-106)
[2017-01-31 19:24] LABS: MCH 32.4 pg (25.7-33.7); MCHC 33.9 g/dl (32.0-36.0); MEAN CELL VOLUME 95.8 fl (80-96); MEAN PLT VOLUME 8.7 fl (7.5-11.1); PLATELET COUNT 71 K/MM3 (134-434); RDW 18.5 % (11.6-15.6); WHITE BLOOD COUNT 5.1 K/mm3 (4.0-10.0)
[2017-01-31 20:38] LABS: PLATELET COMMENT2 NO CLOTTING DETECTED; PLATELET ESTIMATE MOD DECREASED (NORMAL); TOTAL CELLS COUNTED 100
[2017-01-31 20:39] LABS: METAMYELOCYTE 1 % (0-2); MYELOCYTE 1 % (0-2)
[2017-01-31 20:59] LABS: INR 2.97 (0.82-1.09); PROTHROMBIN TIME (PATIENT) 33.6 SEC (9.98-11.88)
[2017-01-31] MEDS: WARFARIN NA 2.5 MG TABLET (FP) PO SCH (21:22)
[2017-01-31] MEDS ORDERED: ALBUTEROL SO4 0.083% IH SOL 2.5 MG/3 ML VIAL.NEB. NEB ONE (22:25)
[2017-02-01] MEDS: CEFEPIME 1 GM in DEXTROSE 5%-WATER 100 ML IVPB SCH ×3 (01:13→17:11)
[2017-02-01] MEDS ORDERED: ALBUTEROL SO4 0.083% IH SOL 2.5 MG/3 ML VIAL.NEB. NEB ONE ×3 (06:36→21:50)
[2017-02-01] MEDS: INSULIN SLIDING SCALE (NOVOLOG) 1 VIAL SQ SCH ×4 (06:36→21:24)
[2017-02-01] MEDS: metFORMIN HCL 500 MG TABLET (FP) PO SCH ×2 (06:37→16:55)
[2017-02-01] MEDS: LEVOTHYROXINE NA 75 MCG TABLET (FP) PO SCH (06:37)
[2017-02-01] MEDS: INSULIN (NOVOLOG MIX 70/30) 100 UNITS/ML MDV SQ SCH ×2 (06:37→16:53)
[2017-02-01] MEDS: glipiZIDE 5 MG TABLET (FP) PO SCH (06:37)
[2017-02-01] MEDS: ALBUTEROL SO4 0.042% IH SOL 1.25 MG/3 ML VIAL.NEB NEB SCH ×3 (06:43→18:00)
[2017-02-01 07:31] LABS: MCH 32.1 pg (25.7-33.7); MCHC 33.4 g/dl (32.0-36.0); MEAN CELL VOLUME 96.3 fl (80-96); MEAN PLT VOLUME 8.1 fl (7.5-11.1); PLATELET COUNT 56 K/MM3 (134-434); RDW 18.2 % (11.6-15.6); WHITE BLOOD COUNT 4.7 K/mm3 (4.0-10.0)
[2017-02-01 08:52] LABS: ANION GAP 8 (8-16); CALCIUM 9.4 mg/dL (8.5-10.1); CO2 28 mmol/L (21-32); CREATININE 0.6 mg/dL (0.55-1.02); GLUCOSE,RANDOM 94 mg/dL (74-106); SGOT/AST 94 U/L (15-37); SGPT/ALT 45 U/L (12-78)
[2017-02-01 08:54] LABS: ALK PHOS 123 U/L (45-117); BILIRUBIN,TOTAL 0.6 mg/dL (0.2-1.0); TOT PROT 5.8 g/dl (6.4-8.2)
[2017-02-01 10:14] LABS: PLATELET COMMENT2 NO CLOTTING DETECTED; PLATELET ESTIMATE DECREASED (NORMAL); TOTAL CELLS COUNTED 100
[2017-02-01] MEDS ORDERED: DEXTROSE 5%-WATER 100 ML IVPB ONE ×2 (10:20→17:06)
[2017-02-01] MEDS ORDERED: CEFEPIME HCL 1 GM VIAL (RESTRICTED TO ID) ONE ×2 (10:20→17:06)
[2017-02-01] MEDS ORDERED: PT OWN MED DRAWER 7, Y5N ONE ×2 (10:20→21:15)
--- NOTE | 2017-02-01 10:23 | PN ---
Progress Note (short form) - Note Progress Note: Sitting on the edge of the bed without O2. Feels ok today. Still with mostly dry cough No CP. Intake & Output 01/29/17 01/30/17 01/31/17 02/01/17 23:59 23:59 23:59 23:59 Intake Total 0 640 550 100 Balance 0 640 550 100 Last Vital Signs Temp Pulse Resp BP Pulse Ox 98.1 F 90 20 136/67 97 02/01/17 05:37 02/01/17 05:37 02/01/17 05:37 02/01/17 05:37 01/31/17 20:18 Active Medications Acetaminophen (Tylenol -) 325 mg PO Q6H PRN PRN Reason: PAIN Last Admin: 01/24/17 09:40 Dose: 325 mg Acetaminophen (Tylenol -) 650 mg PO Q6H PRN PRN Reason: PAIN Last Admin: 01/29/17 06:30 Dose: 650 mg Albuterol Sulfate (Ventolin 0.042trength) -) 1 amp NEB QIDR [facility] Last Admin: 02/01/17 06:43 Dose: 1 amp Bupropion HCl (Wellbutrin Xl -) 150 mg PO DAILY [facility] Last Admin: 01/31/17 11:12 Dose: 150 mg Diltiazem HCl (Cardizem Cd -) 300 mg PO DAILY [facility] Last Admin: 01/31/17 11:05 Dose: 300 mg Fentanyl (Duragesic 25mcg Patch -) 1 patch TD Q72H [facility] Last Admin: 01/30/17 21:01 Dose: 1 patch Furosemide (Lasix -) 40 mg PO DAILY [facility] Last Admin: 01/31/17 11:05 Dose: 40 mg Glipizide (Glucotrol -) 5 mg PO DAILY@0700 [facility] Last Admin: 02/01/17 06:37 Dose: 5 mg Guaifenesin (Diabetic Tussin Dm -) 5 ml PO Q6H PRN PRN Reason: COUGH Last Admin: 01/30/17 23:30 Dose: 5 ml Cefepime HCl 1 gm/ Dextrose 100 mls @ 200 mls/hr IVPB Q8H-IV [facility]IO Last Admin: 02/01/17 01:13 Dose: 200 mls/hr Insulin Aspart (Novolog Mix 70/30 Vial) 35 units SQ BIDAC [facility] Last Admin: 02/01/17 06:37 Dose: Not Given Insulin Aspart (Novolog Vial Sliding Scale -) 1 vial SQ ACHS [facility] PRN Reason: Protocol Last Admin: 02/01/17 06:36 Dose: Not Given Levothyroxine Sodium (Synthroid -) 75 mcg PO DAILY@0700 [facility] Last Admin: 02/01/17 06:37 Dose: 75 mcg Loratadine (Claritin -) 10 mg PO DAILY [facility] Last Admin: 01/31/17 11:05 Dose: 10 mg Metformin HCl (Glucophage -) 500 mg PO BIDAC [facility] Last Admin: 02/01/17 06:37 Dose: 500 mg Miscellaneous (Duragesic Patch Waste) 1 each TD PRN PRN PRN Reason: PAIN Last Admin: 01/31/17 02:15 Dose: 1 each Multi-Ingredient Lotion (Eucerin (Small Jar) -) 1 applic TP BID [facility] Last Admin: 01/31/17 21:21 Dose: Not Given Hazjy-2-Dhvm Ethyl Esters (Lovaza -) 1 gm PO BID [facility] Last Admin: 01/31/17 21:21 Dose: 1 gm Ondansetron HCl (Zofran Injection) 8 mg IVPB Q12H PRN PRN Reason: NAUSEA AND/OR VOMITING Last Admin: 01/29/17 16:36 Dose: 8 mg Polyethylene Glycol (Miralax (For Daily Use) -) 17 gm PO BID [facility] Last Admin: 01/31/17 21:22 Dose: 17 gm Ranitidine HCl (Zantac -) 150 mg PO DAILY [facility] Last Admin: 01/31/17 11:04 Dose: 150 mg Senna (Senna -) 2 tab PO HS PRN PRN Reason: CONSTIPATION Last Admin: 01/29/17 21:09 Dose: 2 tab Tiotropium [place] (Spiriva -) 1 puff IH DAILY [facility] Last Admin: 01/31/17 11:04 Dose: 1 puff Tramadol HCl (Ultram -) 50 mg PO Q6H PRN Last Admin: 01/31/17 21:38 Dose: 50 mg Warfarin Sodium (Coumadin -) 2.5 mg PO DAILY@1800 [facility] Last Admin: 01/31/17 21:22 Dose: 2.5 mg Constitutional: Yes: No Distress, Calm, Obese Eyes: Yes: Conjunctiva Clear, EOM Intact HENT: Yes: Atraumatic, Normocephalic Neck: Yes: Supple, Trachea Midline Cardiovascular: Yes: Regular Rate and Rhythm Respiratory: Yes: Cough, Diminished, On Nasal O2. No: Accessory Muscle Use, Rhonchi, Stridor, Wheezes ...Inspection: Yes: WNL ...Clubbing: No Gastrointestinal: Yes: Normal Bowel Sounds, Soft, Abdomen, Obese Renal/: Yes: WNL Musculoskeletal: Yes: Back Pain Extremities: Yes: WNL Edema: Yes Peripheral Pulses WNL: Yes Integumentary: Yes: WNL Neurological: Yes: WNL, Alert, Oriented ...Motor Strength: WNL Psychiatric: Yes: WNL, Alert, Oriented Labs: Laboratory Results - last 24 hr 01/31/17 01/31/17 01/31/17 06:00 14:00 16:20 WBC RBC Hgb Hct MCV MCH MCHC RDW Plt Count MPV Total Counted Neutrophils % Neutrophils % (Manual) Band Neuts % (Manual) Lymphocytes % Lymphocytes % (Manual) Monocytes % (Manual) Eosinophils % (Manual) Myelocytes % (Man) Other Cell Type Platelet Estimate Platelet Comment PT with INR INR Sodium 134 L Potassium 3.5 Chloride 96 L Carbon Dioxide 27 Anion Gap 11 BUN 7 Creatinine 0.7 Creat Clearance w eGFR POC Glucometer 107 Random Glucose 117 H Calcium 9.5 Total Bilirubin AST ALT Alkaline Phosphatase Total Protein Albumin CA 125 Antigen 612.3 H 01/31/17 01/31/17 01/31/17 18:30 18:43 20:25 WBC 5.1 RBC 2.86 L Hgb 9.3 L Hct 27.4 L MCV 95.8 MCH 32.4 MCHC 33.9 RDW 18.5 H Plt Count 71 L MPV 8.7 Total Counted 100 Neutrophils % No Result Required. Neutrophils % (Manual) 68 Band Neuts % (Manual) 1 D Lymphocytes % No Result Required. Lymphocytes % (Manual) 20 Monocytes % (Manual) 7 Eosinophils % (Manual) 2 D Myelocytes % (Man) 1 Other Cell Type Platelet Estimate Mod decreased Platelet Comment No clotting detected PT with INR 33.60 H INR 2.97 H Sodium Potassium Chloride Carbon Dioxide Anion Gap BUN Creatinine Creat Clearance w eGFR POC Glucometer 138 Random Glucose Calcium Total Bilirubin AST ALT Alkaline Phosphatase Total Protein Albumin CA 125 Antigen 01/31/17 02/01/1717 21:25 06:00 06:00 WBC 4.7 RBC 2.49 L Hgb 8.0 L D Hct 24.0 L MCV 96.3 H MCH 32.1 MCHC 33.4 RDW 18.2 H Plt Count 56 L D MPV 8.1 Total Counted 100 Neutrophils % No Result Required. Neutrophils % (Manual) 68 Band Neuts % (Manual) 1 Lymphocytes % No Result Required. Lymphocytes % (Manual) 25 D Monocytes % (Manual) 6 Eosinophils % (Manual) Myelocytes % (Man) Other Cell Type Platelet Estimate Decreased Platelet Comment No clotting detected PT with INR INR Sodium 135 L Potassium 3.4 L Chloride 99 Carbon Dioxide 28 Anion Gap 8 BUN 6 L Creatinine 0.6 Creat Clearance w eGFR > 60 POC Glucometer 122 Random Glucose 94 Calcium 9.4 Total Bilirubin 0.6 AST 94 H ALT 45 Alkaline Phosphatase 123 H Total Protein 5.8 L Albumin 2.0 L CA 125 Antigen 02/01/17 06:03 WBC RBC Hgb Hct MCV MCH MCHC RDW Plt Count MPV Total Counted Neutrophils % Neutrophils % (Manual) Band Neuts % (Manual) Lymphocytes % Lymphocytes % (Manual) Monocytes % (Manual) Eosinophils % (Manual) Myelocytes % (Man) Other Cell Type Platelet Estimate Platelet Comment PT with INR INR Sodium Potassium Chloride Carbon Dioxide Anion Gap BUN Creatinine Creat Clearance w eGFR POC Glucometer 108 Random Glucose Calcium Total Bilirubin AST ALT Alkaline Phosphatase Total Protein Albumin CA 125 Antigen Problem List - Problems (1) A-fib Code(s): I48.91 - UNSPECIFIED ATRIAL FIBRILLATION Qualifiers: (2) Intractable back pain Code(s): M54.9 - DORSALGIA, UNSPECIFIED (3) Hypothyroid Code(s): E03.9 - HYPOTHYROIDISM, UNSPECIFIED (4) Lymphedema Code(s): I89.0 - LYMPHEDEMA, NOT ELSEWHERE CLASSIFIED (5) Anemia Code(s): D64.9 - ANEMIA, UNSPECIFIED (6) Anxiety and depression Code(s): F41.9 - ANXIETY DISORDER, UNSPECIFIED F32.9 - MAJOR DEPRESSIVE DISORDER, SINGLE EPISODE, UNSPECIFIED (7) Diabetes Code(s): E11.9 - TYPE 2 DIABETES MELLITUS WITHOUT COMPLICATIONS Qualifiers: Diabetes mellitus type: type 2 Diabetes mellitus complication status: without complication (8) HTN (hypertension) Code(s): I10 - ESSENTIAL (PRIMARY) HYPERTENSION Qualifiers: (9) Morbidly obese Code(s): E66.01 - MORBID (SEVERE) OBESITY DUE TO EXCESS CALORIES (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 Code(s): C56.9 - MALIGNANT NEOPLASM OF UNSPECIFIED OVARY C80.0 - DISSEMINATED MALIGNANT NEOPLASM, UNSPECIFIED (11) Pulmonary nodules/lesions, multiple Code(s): R91.8 - OTHER NONSPECIFIC ABNORMAL FINDING OF LUNG FIELD (12) SOB (shortness of breath) Code(s): R06.02 - SHORTNESS OF BREATH Assessment/Plan ABX per ID: cultures thus far negative Do not suspect occult Pulmonary infection O2 as needed Unfortunately given the extent of lung metastasis as the primary etiology of her cough, there are no clear treatment solutions. Continue support care. Coumadin Dr An Problem List - Problems (1) A-fib Code(s): I48.91 - UNSPECIFIED ATRIAL FIBRILLATION Qualifiers: (2) Intractable back pain Code(s): M54.9 - DORSALGIA, UNSPECIFIED (3) Hypothyroid Code(s): E03.9 - HYPOTHYROIDISM, UNSPECIFIED (4) Lymphedema Code(s): I89.0 - LYMPHEDEMA, NOT ELSEWHERE CLASSIFIED (5) Anemia Code(s): D64.9 - ANEMIA, UNSPECIFIED (6) Anxiety and depression Code(s): F41.9 - ANXIETY DISORDER, UNSPECIFIED F32.9 - MAJOR DEPRESSIVE DISORDER, SINGLE EPISODE, UNSPECIFIED (7) Diabetes Code(s): E11.9 - TYPE 2 DIABETES MELLITUS WITHOUT COMPLICATIONS Qualifiers: Diabetes mellitus type: type 2 Diabetes mellitus complication status: without complication (8) HTN (hypertension) Code(s): I10 - ESSENTIAL (PRIMARY) HYPERTENSION Qualifiers: (9) Morbidly obese Code(s): E66.01 - MORBID (SEVERE) OBESITY DUE TO EXCESS CALORIES (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 Code(s): C56.9 - MALIGNANT NEOPLASM OF UNSPECIFIED OVARY C80.0 - DISSEMINATED MALIGNANT NEOPLASM, UNSPECIFIED (11) Pulmonary nodules/lesions, multiple Code(s): R91.8 - OTHER NONSPECIFIC ABNORMAL FINDING OF LUNG FIELD (12) SOB (shortness of breath) Code(s): R06.02 - SHORTNESS OF BREATH
[2017-02-01] MEDS: TIOTROPIUM BROMIDE 18 MCG/INH (DEVICE W/ 5 CAPSULES) IH SCH (10:28)
[2017-02-01] MEDS: RANITIDINE HCL 150 MG TABLET (FP) PO SCH (10:28)
[2017-02-01] MEDS: FUROSEMIDE 40 MG TABLET (FP) PO SCH (10:28)
[2017-02-01] MEDS: OMEGA-3 ACID ETHYL ESTERS (FATTY-ACIDS) 1 GM CAPSULE (FP) PO SCH ×2 (10:28→21:23)
[2017-02-01] MEDS: LORATADINE 10 MG TABLET PO SCH (10:28)
[2017-02-01] MEDS: traMADol HCL 50 MG TABLET PO PRN ×2 (10:29→18:36)
[2017-02-01] MEDS: MINERAL OIL/PETROLAT/WATER TOPICAL CREAM 113 GM JAR TP SCH ×2 (10:30→21:24)
[2017-02-01] MEDS: POLYETHYLENE GLYCOL 3350 119 GM BTL PO SCH ×2 (10:30→21:24)
[2017-02-01] MEDS ORDERED: ALBUTEROL SO4 0.5 % INH SOLN 2.5 MG/0.5 ML VIAL.NEB. NEB ONE ×2 (11:39→17:59)
--- NOTE | 2017-02-01 11:59 | PN ---
Progress Note, Physician History of Present Illness: seated in bed reports dry cough no c/o chest pain/ dyspnea sputum c/s mixed - Current Medication List Current Medications: Active Medications Acetaminophen (Tylenol -) 325 mg PO Q6H PRN PRN Reason: PAIN Last Admin: 01/24/17 09:40 Dose: 325 mg Acetaminophen (Tylenol -) 650 mg PO Q6H PRN PRN Reason: PAIN Last Admin: 01/29/17 06:30 Dose: 650 mg Albuterol Sulfate (Ventolin 0.042trength) -) 1 amp NEB QIDR [facility] Last Admin: 02/01/17 06:43 Dose: 1 amp Bupropion HCl (Wellbutrin Xl -) 150 mg PO DAILY [facility] Last Admin: 02/01/17 10:28 Dose: 150 mg Diltiazem HCl (Cardizem Cd -) 300 mg PO DAILY [facility] Last Admin: 02/01/17 10:28 Dose: 300 mg Fentanyl (Duragesic 25mcg Patch -) 1 patch TD Q72H [facility] Last Admin: 01/30/17 21:01 Dose: 1 patch Furosemide (Lasix -) 40 mg PO DAILY [facility] Last Admin: 02/01/17 10:28 Dose: 40 mg Glipizide (Glucotrol -) 5 mg PO DAILY@0700 [facility] Last Admin: 02/01/17 06:37 Dose: 5 mg Guaifenesin (Diabetic Tussin Dm -) 5 ml PO Q6H PRN PRN Reason: COUGH Last Admin: 01/30/17 23:30 Dose: 5 ml Cefepime HCl 1 gm/ Dextrose 100 mls @ 200 mls/hr IVPB Q8H-IV [facility] Last Admin: 02/01/17 10:29 Dose: 200 mls/hr Insulin Aspart (Novolog Mix 70/30 Vial) 35 units SQ BIDAC [facility] Last Admin: 02/01/17 06:37 Dose: Not Given Insulin Aspart (Novolog Vial Sliding Scale -) 1 vial SQ ACHS [facility] PRN Reason: Protocol Last Admin: 02/01/17 11:10 Dose: Not Given Levothyroxine Sodium (Synthroid -) 75 mcg PO DAILY@0700 [facility] Last Admin: 02/01/17 06:37 Dose: 75 mcg Loratadine (Claritin -) 10 mg PO DAILY [facility] Last Admin: 02/01/17 10:28 Dose: 10 mg Metformin HCl (Glucophage -) 500 mg PO BIDAC [facility] Last Admin: 02/01/17 06:37 Dose: 500 mg Miscellaneous (Duragesic Patch Waste) 1 each TD PRN PRN PRN Reason: PAIN Last Admin: 01/31/17 02:15 Dose: 1 each Multi-Ingredient Lotion (Eucerin (Small Jar) -) 1 applic TP BID [facility] Last Admin: 02/01/17 10:30 Dose: Not Given Ffpfr-1-Xmiu Ethyl Esters (Lovaza -) 1 gm PO BID [facility] Last Admin: 02/01/17 10:28 Dose: 1 gm Ondansetron HCl (Zofran Injection) 8 mg IVPB Q12H PRN PRN Reason: NAUSEA AND/OR VOMITING Last Admin: 01/29/17 16:36 Dose: 8 mg Polyethylene Glycol (Miralax (For Daily Use) -) 17 gm PO BID [facility] Last Admin: 02/01/17 10:30 Dose: Not Given Ranitidine HCl (Zantac -) 150 mg PO DAILY [facility] Last Admin: 02/01/17 10:28 Dose: 150 mg Senna (Senna -) 2 tab PO HS PRN PRN Reason: CONSTIPATION Last Admin: 01/29/17 21:09 Dose: 2 tab Tiotropium [place] (Spiriva -) 1 puff IH DAILY [facility] Last Admin: 02/01/17 10:28 Dose: 1 puff Tramadol HCl (Ultram -) 50 mg PO Q6H PRN Last Admin: 02/01/17 10:29 Dose: 50 mg Warfarin Sodium (Coumadin -) 2.5 mg PO DAILY@1800 [facility] Last Admin: 01/31/17 21:22 Dose: 2.5 mg - Objective Vital Signs: Vital Signs Temperature 97.7 F 02/01/17 09:00 Pulse Rate 98 H 02/01/17 09:00 Respiratory Rate 20 02/01/17 09:00 Blood Pressure 124/69 02/01/17 09:00 O2 Sat by Pulse Oximetry (%) 97 02/01/17 09:00 Constitutional: Yes: Obese Eyes: Yes: Conjunctiva Clear Cardiovascular: Yes: Regular Rate and Rhythm, S1, S2 Respiratory: Yes: Diminished Gastrointestinal: Yes: Normal Bowel Sounds, Soft, Abdomen, Obese. No: Tenderness Edema: Yes Labs: CBC, BMP 02/01/17 06:00 02/01/17 06:00 INR, PTT INR 2.97 (0.82-1.09) H 01/31/17 20:25 Assessment/Plan Metastatic carcinoma S/P altered mental status/ Possible sepsis- improved Thrombocytopenia Sputum c/s mixed organisms On cefepime
--- NOTE | 2017-02-01 13:26 | PN ---
Progress Note (short form) - Note Progress Note: condition same no new events Vital Signs Temp 97.7 F 02/01/17 09:00 Pulse 98 H 02/01/17 09:00 Resp 20 02/01/17 09:00 BP 124/69 02/01/17 09:00 Pulse Ox 97 02/01/17 09:00 Intake & Output 01/31/17 02/01/17 02/01/17 23:59 11:59 23:59 Intake Total 450 100 Balance 450 100 Intake: IVPB 100 100 Oral 350 Other: Voiding Method Toilet Toilet # Unmeasured Voids Void 1 Active Medications Acetaminophen (Tylenol -) 325 mg PO Q6H PRN PRN Reason: PAIN Last Admin: 01/24/17 09:40 Dose: 325 mg Acetaminophen (Tylenol -) 650 mg PO Q6H PRN PRN Reason: PAIN Last Admin: 01/29/17 06:30 Dose: 650 mg Albuterol Sulfate (Ventolin 0.042trength) -) 1 amp NEB QIDR [facility] Last Admin: 02/01/17 11:59 Dose: 1 amp Bupropion HCl (Wellbutrin Xl -) 150 mg PO DAILY [facility] Last Admin: 02/01/17 10:28 Dose: 150 mg Diltiazem HCl (Cardizem Cd -) 300 mg PO DAILY [facility] Last Admin: 02/01/17 10:28 Dose: 300 mg Fentanyl (Duragesic 25mcg Patch -) 1 patch TD Q72H [facility] Last Admin: 01/30/17 21:01 Dose: 1 patch Furosemide (Lasix -) 40 mg PO DAILY [facility] Last Admin: 02/01/17 10:28 Dose: 40 mg Glipizide (Glucotrol -) 5 mg PO DAILY@0700 [facility] Last Admin: 02/01/17 06:37 Dose: 5 mg Guaifenesin (Diabetic Tussin Dm -) 5 ml PO Q6H PRN PRN Reason: COUGH Last Admin: 01/30/17 23:30 Dose: 5 ml Cefepime HCl 1 gm/ Dextrose 100 mls @ 200 mls/hr IVPB Q8H-IV [facility] Last Admin: 02/01/17 10:29 Dose: 200 mls/hr Insulin Aspart (Novolog Mix 70/30 Vial) 35 units SQ BIDAC [facility] Last Admin: 02/01/17 06:37 Dose: Not Given Insulin Aspart (Novolog Vial Sliding Scale -) 1 vial SQ ACHS [facility] PRN Reason: Protocol Last Admin: 02/01/17 11:10 Dose: Not Given Levothyroxine Sodium (Synthroid -) 75 mcg PO DAILY@0700 [facility] Last Admin: 02/01/17 06:37 Dose: 75 mcg Loratadine (Claritin -) 10 mg PO DAILY [facility] Last Admin: 02/01/17 10:28 Dose: 10 mg Metformin HCl (Glucophage -) 500 mg PO BIDAC [facility] Last Admin: 02/01/17 06:37 Dose: 500 mg Miscellaneous (Duragesic Patch Waste) 1 each TD PRN PRN PRN Reason: PAIN Last Admin: 01/31/17 02:15 Dose: 1 each Multi-Ingredient Lotion (Eucerin (Small Jar) -) 1 applic TP BID [facility] Last Admin: 02/01/17 10:30 Dose: Not Given Ltdol-7-Zkst Ethyl Esters (Lovaza -) 1 gm PO BID [facility] Last Admin: 02/01/17 10:28 Dose: 1 gm Ondansetron HCl (Zofran Injection) 8 mg IVPB Q12H PRN PRN Reason: NAUSEA AND/OR VOMITING Last Admin: 01/29/17 16:36 Dose: 8 mg Polyethylene Glycol (Miralax (For Daily Use) -) 17 gm PO BID [facility] Last Admin: 02/01/17 10:30 Dose: Not Given Ranitidine HCl (Zantac -) 150 mg PO DAILY [facility] Last Admin: 02/01/17 10:28 Dose: 150 mg Senna (Senna -) 2 tab PO HS PRN PRN Reason: CONSTIPATION Last Admin: 01/29/17 21:09 Dose: 2 tab Tiotropium [place] (Spiriva -) 1 puff IH DAILY [facility] Last Admin: 02/01/17 10:28 Dose: 1 puff Tramadol HCl (Ultram -) 50 mg PO Q6H PRN Last Admin: 02/01/17 10:29 Dose: 50 mg Warfarin Sodium (Coumadin -) 2.5 mg PO DAILY@1800 [facility] Last Admin: 01/31/17 21:22 Dose: 2.5 mg CBC, BMP 02/01/17 06:00 02/01/17 06:00 INR, PTT INR 2.97 (0.82-1.09) H 01/31/17 20:25 Physical Exam. Constitutional: Yes: No Distress/ weak Cardiovascular: Yes: Pulse Irregular Respiratory: Yes: Diminished at bases Gastrointestinal: Yes: Normal Bowel Sounds, Soft, Abdomen, Obese. No: Distention, Tenderness Edema: Yes Problem List - Problems (1) A-fib Code(s): I48.91 - UNSPECIFIED ATRIAL FIBRILLATION Qualifiers: (2) Depression, major, severe recurrence Code(s): F33.2 - MAJOR DEPRESSV DISORDER, RECURRENT SEVERE W/O PSYCH FEATURES (3) Primary cancer of ovary with widespread metastatic disease Code(s): C56.9 - MALIGNANT NEOPLASM OF UNSPECIFIED OVARY C80.0 - DISSEMINATED MALIGNANT NEOPLASM, UNSPECIFIED (4) Metabolic encephalopathy Code(s): G93.41 - METABOLIC ENCEPHALOPATHY (5) Intractable back pain Code(s): M54.9 - DORSALGIA, UNSPECIFIED Assessment/Plan stable problems as listed continue present care overall condition poor pt is DNR/ Di. will follow
[2017-02-01 14:13] LABS: INR 3.57 (0.82-1.09); PROTHROMBIN TIME (PATIENT) 40.3 SEC (9.98-11.88)
--- NOTE | 2017-02-01 14:13 | PN ---
Progress Note (short form) - Note Progress Note: Progress Note (short form) - Note Progress Note: Patient seen and examined. she still has a cough constipation getting better has ear fullness O/E General Appearance: Obese Skin: itching excoriations. Abdomen: obese Extremities: Other (lymphedema), some bruises seen in the lower Neurological: Intact CBC, BMP 02/01/17 06:00 02/01/17 06:00 Active Medications Generic Name Dose Route Start Last Admin Trade Name Freq PRN Reason Stop Dose Admin Acetaminophen 325 mg 01/24/17 09:32 01/24/17 09:40 Tylenol - PO 325 mg Q6H PRN Administration PAIN Acetaminophen 650 mg 01/24/17 09:33 01/29/17 06:30 Tylenol - PO 650 mg Q6H PRN Administration PAIN Albuterol Sulfate 1 amp 01/28/17 00:00 02/01/17 11:59 Ventolin 0.042trength) - NEB 1 amp QIDR [facility] Administration Bupropion HCl 150 mg 01/24/17 10:00 02/01/17 10:28 Wellbutrin Xl - PO 150 mg DAILY [facility] Administration Diltiazem HCl 300 mg 01/24/17 10:00 02/01/17 10:28 Cardizem Cd - PO 300 mg DAILY [facility] Administration Fentanyl 1 patch 01/30/17 18:45 01/30/17 21:01 Duragesic 25mcg Patch - TD 1 patch Q72H [facility] Administration Furosemide 40 mg 01/24/17 10:00 02/01/17 10:28 Lasix - PO 40 mg DAILY [facility] Administration Glipizide 5 mg 01/24/17 07:00 02/01/17 06:37 Glucotrol - PO 5 mg DAILY@0700 [facility] Administration Guaifenesin 5 ml 01/26/17 20:29 01/30/17 23:30 Diabetic Tussin Dm - PO 5 ml Q6H PRN Administration COUGH Cefepime HCl 1 gm/ Dextrose 100 mls @ 200 mls/hr 01/28/17 14:17 02/01/17 10:29 IVPB 200 mls/hr Q8H-IV [facility] Administration Insulin Aspart 35 units 01/24/17 07:00 02/01/17 06:37 Novolog Mix 70/30 Vial SQ Not Given BIDAC [facility] Insulin Aspart 1 vial 01/24/17 16:45 02/01/17 11:10 Novolog Vial Sliding Scale - SQ Not Given ACHS [facility] Protocol Levothyroxine Sodium 75 mcg 01/24/17 07:00 02/01/17 06:37 Synthroid - PO 75 mcg DAILY@0700 [facility] Administration Loratadine 10 mg 01/24/17 10:00 02/01/17 10:28 Claritin - PO 10 mg DAILY [facility] Administration Metformin HCl 500 mg 01/24/17 07:00 02/01/17 06:37 Glucophage - PO 500 mg BIDAC [facility] Administration Miscellaneous 1 each 01/30/17 11:19 01/31/17 02:15 Duragesic Patch Waste TD 1 each PRN PRN Administration PAIN Multi-Ingredient Lotion 1 applic 01/25/17 22:00 02/01/17 10:30 Eucerin (Small Jar) - TP Not Given BID [facility] Bmrqw-8-[id number] Ethyl Esters 1 gm 01/23/17 22:00 02/01/17 10:28 Lovaza - PO 1 gm BID [facility] Administration Ondansetron HCl 8 mg 01/23/17 12:21 01/29/17 16:36 Zofran Injection IVPB 8 mg Q12H PRN Administration NAUSEA AND/OR VOMITING Polyethylene Glycol 17 gm 01/30/17 22:00 02/01/17 10:30 Miralax (For Daily Use) - PO Not Given BID [facility] Potassium Chloride 20 meq 02/01/17 13:27 K-Dur - PO 02/01/17 13:28 ONCE ONE Ranitidine HCl 150 mg 01/24/17 10:00 02/01/17 10:28 Zantac - PO 150 mg DAILY [facility] Administration Senna 2 tab 01/29/17 10:48 01/29/17 21:09 Senna - PO 2 tab HS PRN Administration CONSTIPATION Tiotropium [place] 1 puff 01/24/17 10:00 02/01/17 10:28 Spiriva - IH 1 puff DAILY [facility] Administration Tramadol HCl 50 mg 01/29/17 06:52 02/01/17 10:29 Ultram - PO 50 mg Q6H PRN Administration Warfarin Sodium 2.5 mg 01/29/17 18:00 01/31/17 21:22 Coumadin - PO 2.5 mg DAILY@1800 [facility] Administration Assessment/Plan: Metastatic high grade mullerian cancer. on second line chemo, s.p C1D1 gemzar on 01/23. -pain control: fentanyl patch ( increased yesterday to 25mch/hr) , tramadol -No longer lethargic. On cefepime. ID f/u appreciated. -decreased counts: not neutropenic, thrombocytopenia from gem, will continue to monitor. -poor appetite : may add mirtazapine at a later time. -pulm f/u appreciated -daily INR check , INR from today pending -PT eval. -overall she feels "down". -likely d/c post weekend.
[2017-02-01] MEDS ORDERED: POTASSIUM CHLORIDE TABS 20 MEQ TABLET.ER (FP) PO ONE (14:30)
[2017-02-01] MEDS ORDERED: WARFARIN NA 1 MG TABLET (FP) PO SCH (18:00)
[2017-02-01] MEDS: CARBAMIDE PEROXIDE 6.5% OTIC 15 ML BOTTLE AD SCH (21:23)
[2017-02-02] MEDS: ALBUTEROL SO4 0.042% IH SOL 1.25 MG/3 ML VIAL.NEB NEB SCH
[2017-02-02] MEDS ORDERED: CEFEPIME HCL 1 GM VIAL (RESTRICTED TO ID) ONE ×3 (01:59→17:39)
[2017-02-02] MEDS ORDERED: DEXTROSE 5%-WATER 100 ML IVPB ONE ×3 (02:00→17:39)
[2017-02-02] MEDS: CEFEPIME 1 GM in DEXTROSE 5%-WATER 100 ML IVPB SCH ×3 (02:22→17:50)
[2017-02-02] MEDS: INSULIN SLIDING SCALE (NOVOLOG) 1 VIAL SQ SCH ×4 (06:45→21:37)
[2017-02-02] MEDS: INSULIN (NOVOLOG MIX 70/30) 100 UNITS/ML MDV SQ SCH ×2 (06:45→16:47)
[2017-02-02] MEDS: LEVOTHYROXINE NA 75 MCG TABLET (FP) PO SCH (06:46)
[2017-02-02] MEDS: glipiZIDE 5 MG TABLET (FP) PO SCH (06:46)
[2017-02-02] MEDS: metFORMIN HCL 500 MG TABLET (FP) PO SCH ×2 (06:46→17:03)
[2017-02-02] MEDS ORDERED: INSULIN (NOVOLOG) ASPART 100 UNITS/ML 10ML VIAL ONE (06:52)
[2017-02-02] MEDS ORDERED: PT OWN MED DRAWER 7, Y5N ONE ×2 (09:07→10:42)
[2017-02-02] MEDS: OMEGA-3 ACID ETHYL ESTERS (FATTY-ACIDS) 1 GM CAPSULE (FP) PO SCH ×2 (09:09→21:42)
[2017-02-02] MEDS: RANITIDINE HCL 150 MG TABLET (FP) PO SCH (09:09)
[2017-02-02] MEDS: TIOTROPIUM BROMIDE 18 MCG/INH (DEVICE W/ 5 CAPSULES) IH SCH (09:09)
[2017-02-02] MEDS: FUROSEMIDE 40 MG TABLET (FP) PO SCH (09:10)
[2017-02-02] MEDS: ONDANSETRON 4 MG/2 ML VIAL IVPB PRN (09:10)
[2017-02-02] MEDS: LORATADINE 10 MG TABLET PO SCH (09:10)
[2017-02-02] MEDS: POLYETHYLENE GLYCOL 3350 119 GM BTL PO SCH ×2 (09:11→21:43)
[2017-02-02] MEDS: CARBAMIDE PEROXIDE 6.5% OTIC 15 ML BOTTLE AD SCH ×2 (09:11→21:42)
[2017-02-02] MEDS: MINERAL OIL/PETROLAT/WATER TOPICAL CREAM 113 GM JAR TP SCH ×2 (09:11→21:37)
--- NOTE | 2017-02-02 11:04 | PN ---
Progress Note (short form) - Note Progress Note: OOB to wheelchair. Very poor PO intake. Weeping. Feels generalized weakness and fatigue. Feels coldness in her hands. No CP or SOB. NAD on RA. Intake & Output 01/30/17 01/31/17 02/01/17 02/02/17 23:59 23:59 23:59 23:59 Intake Total 640 550 500 100 Balance 640 550 500 100 Last Vital Signs Temp Pulse Resp BP Pulse Ox 97.7 F 95 H 18 114/65 97 02/02/17 09:00 02/02/17 09:00 02/02/17 09:00 02/02/17 09:00 02/02/17 09:00 Active Medications Acetaminophen (Tylenol -) 325 mg PO Q6H PRN PRN Reason: PAIN Last Admin: 01/24/17 09:40 Dose: 325 mg Acetaminophen (Tylenol -) 650 mg PO Q6H PRN PRN Reason: PAIN Last Admin: 01/29/17 06:30 Dose: 650 mg Bupropion HCl (Wellbutrin Xl -) 150 mg PO DAILY [facility] Last Admin: 02/02/17 09:09 Dose: 150 mg Carbamide Perox/Anhydrous Glycerin (Debrox -) 5 drop AD BID [facility] Stop: 02/03/17 23:59 Last Admin: 02/02/17 09:11 Dose: 5 drop Diltiazem HCl (Cardizem Cd -) 300 mg PO DAILY [facility] Last Admin: 02/02/17 09:10 Dose: 300 mg Fentanyl (Duragesic 25mcg Patch -) 1 patch TD Q72H [facility] Last Admin: 01/30/17 21:01 Dose: 1 patch Furosemide (Lasix -) 40 mg PO DAILY [facility] Last Admin: 02/02/17 09:10 Dose: 40 mg Glipizide (Glucotrol -) 5 mg PO DAILY@0700 [facility] Last Admin: 02/02/17 06:46 Dose: 5 mg Guaifenesin (Diabetic Tussin Dm -) 5 ml PO Q6H PRN PRN Reason: COUGH Last Admin: 01/30/17 23:30 Dose: 5 ml Cefepime HCl 1 gm/ Dextrose 100 mls @ 200 mls/hr IVPB Q8H-IV [facility] Last Admin: 02/02/17 09:10 Dose: 200 mls/hr Insulin Aspart (Novolog Mix 70/30 Vial) 35 units SQ BIDAC [facility] Last Admin: 02/02/17 06:45 Dose: Not Given Insulin Aspart (Novolog Vial Sliding Scale -) 1 vial SQ ACHS [facility] PRN Reason: Protocol Last Admin: 02/02/17 06:45 Dose: Not Given Levothyroxine Sodium (Synthroid -) 75 mcg PO DAILY@0700 [facility] Last Admin: 02/02/17 06:46 Dose: 75 mcg Loratadine (Claritin -) 10 mg PO DAILY [facility] Last Admin: 02/02/17 09:10 Dose: 10 mg Metformin HCl (Glucophage -) 500 mg PO BIDAC [facility] Last Admin: 02/02/17 06:46 Dose: 500 mg Miscellaneous (Duragesic Patch Waste) 1 each TD PRN PRN PRN Reason: PAIN Last Admin: 01/31/17 02:15 Dose: 1 each Multi-Ingredient Lotion (Eucerin (Small Jar) -) 1 applic TP BID [facility] Last Admin: 02/02/17 09:11 Dose: Not Given Gbucm-2-Nfed Ethyl Esters (Lovaza -) 1 gm PO BID [facility] Last Admin: 02/02/17 09:09 Dose: 1 gm Ondansetron HCl (Zofran Injection) 8 mg IVPB Q12H PRN PRN Reason: NAUSEA AND/OR VOMITING Last Admin: 02/02/17 09:10 Dose: 8 mg Polyethylene Glycol (Miralax (For Daily Use) -) 17 gm PO BID [facility] Last Admin: 02/02/17 09:11 Dose: Not Given Ranitidine HCl (Zantac -) 150 mg PO DAILY [facility] Last Admin: 02/02/17 09:09 Dose: 150 mg Senna (Senna -) 2 tab PO HS PRN PRN Reason: CONSTIPATION Last Admin: 01/29/17 21:09 Dose: 2 tab Tiotropium [place] (Spiriva -) 1 puff IH DAILY [facility] Last Admin: 02/02/17 09:09 Dose: 1 puff Tramadol HCl (Ultram -) 50 mg PO Q6H PRN Last Admin: 02/01/17 18:36 Dose: 50 mg Warfarin Sodium (Coumadin -) 1.5 mg PO DAILY@1800 [facility] Last Admin: 02/01/17 17:12 Dose: 1.5 mg Constitutional: Yes: No Distress, Depressed, Obese Eyes: Yes: Conjunctiva Clear, EOM Intact HENT: Yes: Atraumatic, Normocephalic Neck: Yes: Supple, Trachea Midline Cardiovascular: Yes: Regular Rate and Rhythm Respiratory: Yes: Cough, Diminished, On Nasal O2. No: Accessory Muscle Use, Rhonchi, Stridor, Wheezes ...Inspection: Yes: WNL ...Clubbing: No Gastrointestinal: Yes: Normal Bowel Sounds, Soft, Abdomen, Obese Renal/: Yes: WNL Musculoskeletal: Yes: Back Pain Extremities: Yes: WNL Edema: Yes Peripheral Pulses WNL: Yes Integumentary: Yes: WNL Neurological: Yes: WNL, Alert, Oriented ...Motor Strength: WNL Psychiatric: Yes: WNL, Alert, Oriented Labs: Laboratory Results - last 24 hr 02/01/17 02/01/17 02/01/17 11:03 13:35 16:35 PT with INR 40.30 H INR 3.57 H POC Glucometer 162 165 02/01/17 02/02/17 02/02/17 21:22 06:44 08:30 PT with INR INR POC Glucometer 119 118 140 Problem List - Problems (1) A-fib Code(s): I48.91 - UNSPECIFIED ATRIAL FIBRILLATION Qualifiers: (2) Intractable back pain Code(s): M54.9 - DORSALGIA, UNSPECIFIED (3) Hypothyroid Code(s): E03.9 - HYPOTHYROIDISM, UNSPECIFIED (4) Lymphedema Code(s): I89.0 - LYMPHEDEMA, NOT ELSEWHERE CLASSIFIED (5) Anemia Code(s): D64.9 - ANEMIA, UNSPECIFIED (6) Anxiety and depression Code(s): F41.9 - ANXIETY DISORDER, UNSPECIFIED F32.9 - MAJOR DEPRESSIVE DISORDER, SINGLE EPISODE, UNSPECIFIED (7) Diabetes Code(s): E11.9 - TYPE 2 DIABETES MELLITUS WITHOUT COMPLICATIONS Qualifiers: Diabetes mellitus type: type 2 Diabetes mellitus complication status: without complication (8) HTN (hypertension) Code(s): I10 - ESSENTIAL (PRIMARY) HYPERTENSION Qualifiers: (9) Morbidly obese Code(s): E66.01 - MORBID (SEVERE) OBESITY DUE TO EXCESS CALORIES (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 Code(s): C56.9 - MALIGNANT NEOPLASM OF UNSPECIFIED OVARY C80.0 - DISSEMINATED MALIGNANT NEOPLASM, UNSPECIFIED (11) Pulmonary nodules/lesions, multiple Code(s): R91.8 - OTHER NONSPECIFIC ABNORMAL FINDING OF LUNG FIELD (12) SOB (shortness of breath) Code(s): R06.02 - SHORTNESS OF BREATH Assessment/Plan ABX per ID for mixed sputum C/S O2 as needed Unfortunately given the extent of lung metastasis as the primary etiology of her cough, there are no clear treatment solutions. Continue support care. Coumadin Dr An Problem List - Problems (1) A-fib Code(s): I48.91 - UNSPECIFIED ATRIAL FIBRILLATION Qualifiers: (2) Intractable back pain Code(s): M54.9 - DORSALGIA, UNSPECIFIED (3) Hypothyroid Code(s): E03.9 - HYPOTHYROIDISM, UNSPECIFIED (4) Lymphedema Code(s): I89.0 - LYMPHEDEMA, NOT ELSEWHERE CLASSIFIED (5) Anemia Code(s): D64.9 - ANEMIA, UNSPECIFIED (6) Anxiety and depression Code(s): F41.9 - ANXIETY DISORDER, UNSPECIFIED F32.9 - MAJOR DEPRESSIVE DISORDER, SINGLE EPISODE, UNSPECIFIED (7) Diabetes Code(s): E11.9 - TYPE 2 DIABETES MELLITUS WITHOUT COMPLICATIONS Qualifiers: Diabetes mellitus type: type 2 Diabetes mellitus complication status: without complication (8) HTN (hypertension) Code(s): I10 - ESSENTIAL (PRIMARY) HYPERTENSION Qualifiers: (9) Morbidly obese Code(s): E66.01 - MORBID (SEVERE) OBESITY DUE TO EXCESS CALORIES (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 Code(s): C56.9 - MALIGNANT NEOPLASM OF UNSPECIFIED OVARY C80.0 - DISSEMINATED MALIGNANT NEOPLASM, UNSPECIFIED (11) Pulmonary nodules/lesions, multiple Code(s): R91.8 - OTHER NONSPECIFIC ABNORMAL FINDING OF LUNG FIELD (12) SOB (shortness of breath) Code(s): R06.02 - SHORTNESS OF BREATH
[2017-02-02 12:17] LABS: MCHC 33.3 g/dl (32.0-36.0); MEAN CELL VOLUME 96.1 fl (80-96); MEAN PLT VOLUME 7.6 fl (7.5-11.1); PLATELET COUNT 70 K/MM3 (134-434); RDW 18.7 % (11.6-15.6); WHITE BLOOD COUNT 4.9 K/mm3 (4.0-10.0)
--- NOTE | 2017-02-02 12:31 | PN ---
Progress Note (short form) - Note Progress Note: condition same sitting in chair Vital Signs Temp 97.7 F 02/02/17 09:00 Pulse 81 02/02/17 11:49 Resp 18 02/02/17 09:00 BP 114/65 02/02/17 09:00 Pulse Ox 97 02/02/17 11:49 Intake & Output 02/01/17 02/02/17 02/02/17 23:59 11:59 23:59 Intake Total 400 100 Balance 400 100 Intake: IVPB 200 100 Oral 200 Other: Voiding Method Toilet Toilet # Unmeasured Voids Void 1 1 Bowel Movement Yes # Bowel Movements 1 Active Medications Acetaminophen (Tylenol -) 325 mg PO Q6H PRN PRN Reason: PAIN Last Admin: 01/24/17 09:40 Dose: 325 mg Acetaminophen (Tylenol -) 650 mg PO Q6H PRN PRN Reason: PAIN Last Admin: 01/29/17 06:30 Dose: 650 mg Bupropion HCl (Wellbutrin Xl -) 150 mg PO DAILY [facility] Last Admin: 02/02/17 09:09 Dose: 150 mg Carbamide Perox/Anhydrous Glycerin (Debrox -) 5 drop AD BID [facility] Stop: 02/03/17 23:59 Last Admin: 02/02/17 09:11 Dose: 5 drop Diltiazem HCl (Cardizem Cd -) 300 mg PO DAILY [facility] Last Admin: 02/02/17 09:10 Dose: 300 mg Fentanyl (Duragesic 25mcg Patch -) 1 patch TD Q72H [facility] Last Admin: 01/30/17 21:01 Dose: 1 patch Furosemide (Lasix -) 40 mg PO DAILY [facility] Last Admin: 02/02/17 09:10 Dose: 40 mg Glipizide (Glucotrol -) 5 mg PO DAILY@0700 [facility] Last Admin: 02/02/17 06:46 Dose: 5 mg Guaifenesin (Diabetic Tussin Dm -) 5 ml PO Q6H PRN PRN Reason: COUGH Last Admin: 01/30/17 23:30 Dose: 5 ml Cefepime HCl 1 gm/ Dextrose 100 mls @ 200 mls/hr IVPB Q8H-IV [facility] Last Admin: 02/02/17 09:10 Dose: 200 mls/hr Insulin Aspart (Novolog Mix 70/30 Vial) 35 units SQ BIDAC [facility] Last Admin: 02/02/17 06:45 Dose: Not Given Insulin Aspart (Novolog Vial Sliding Scale -) 1 vial SQ ACHS [facility] PRN Reason: Protocol Last Admin: 02/02/17 12:26 Dose: Not Given Levothyroxine Sodium (Synthroid -) 75 mcg PO DAILY@0700 [facility] Last Admin: 02/02/17 06:46 Dose: 75 mcg Loratadine (Claritin -) 10 mg PO DAILY [facility] Last Admin: 02/02/17 09:10 Dose: 10 mg Metformin HCl (Glucophage -) 500 mg PO BIDAC [facility] Last Admin: 02/02/17 06:46 Dose: 500 mg Miscellaneous (Duragesic Patch Waste) 1 each TD PRN PRN PRN Reason: PAIN Last Admin: 01/31/17 02:15 Dose: 1 each Multi-Ingredient Lotion (Eucerin (Small Jar) -) 1 applic TP BID [facility] Last Admin: 02/02/17 09:11 Dose: Not Given Gjloo-6-Feer Ethyl Esters (Lovaza -) 1 gm PO BID [facility] Last Admin: 02/02/17 09:09 Dose: 1 gm Ondansetron HCl (Zofran Injection) 8 mg IVPB Q12H PRN PRN Reason: NAUSEA AND/OR VOMITING Last Admin: 02/02/17 09:10 Dose: 8 mg Polyethylene Glycol (Miralax (For Daily Use) -) 17 gm PO BID [facility] Last Admin: 02/02/17 09:11 Dose: Not Given Ranitidine HCl (Zantac -) 150 mg PO DAILY [facility] Last Admin: 02/02/17 09:09 Dose: 150 mg Senna (Senna -) 2 tab PO HS PRN PRN Reason: CONSTIPATION Last Admin: 01/29/17 21:09 Dose: 2 tab Tiotropium [place] (Spiriva -) 1 puff IH DAILY [facility] Last Admin: 02/02/17 09:09 Dose: 1 puff Warfarin Sodium (Coumadin -) 1.5 mg PO DAILY@1800 [facility] Last Admin: 02/01/17 17:12 Dose: 1.5 mg CBC, BMP 02/02/17 12:10 02/01/17 06:00 INR, PTT INR 3.57 (0.82-1.09) H 02/01/17 13:35 inr-- today-- pending. Physical Exam. Constitutional: Yes: No Distress/ weak Cardiovascular: Yes: Pulse Irregular Respiratory: Yes: Diminished at bases Gastrointestinal: Yes: Normal Bowel Sounds, Soft, Abdomen, Obese. No: Distention, Tenderness Edema: Yes Problem List - Problems (1) A-fib Code(s): I48.91 - UNSPECIFIED ATRIAL FIBRILLATION Qualifiers: (2) Depression, major, severe recurrence Code(s): F33.2 - MAJOR DEPRESSV DISORDER, RECURRENT SEVERE W/O PSYCH FEATURES (3) Primary cancer of ovary with widespread metastatic disease Code(s): C56.9 - MALIGNANT NEOPLASM OF UNSPECIFIED OVARY C80.0 - DISSEMINATED MALIGNANT NEOPLASM, UNSPECIFIED (4) Metabolic encephalopathy Code(s): G93.41 - METABOLIC ENCEPHALOPATHY (5) Intractable back pain Code(s): M54.9 - DORSALGIA, UNSPECIFIED Assessment/Plan stable problems as listed continue present care overall condition poor pt is DNR/ Di. follow inr if >3 - will hold will follow
[2017-02-02] MEDS ORDERED: SODIUM CHLORIDE 0.9% 1000 ML INFUS.BAG IV ONE (13:43)
--- NOTE | 2017-02-02 13:43 | PN ---
Progress Note (short form) - Note Progress Note: Progress Note (short form) - Note Progress Note: Patient seen and examined. The daughter is by the bedside and she says she is feeling very weak. She looks mildly dehydrated O/E General Appearance: Obese Skin: itching excoriations. Abdomen: obese Extremities: Other (lymphedema), some bruises seen in the lower Neurological: Intact CBC, BMP 02/02/17 12:10 02/01/17 06:00 Active Medications Generic Name Dose Route Start Last Admin Trade Name Freq PRN Reason Stop Dose Admin Acetaminophen 325 mg 01/24/17 09:32 01/24/17 09:40 Tylenol - PO 325 mg Q6H PRN Administration PAIN Acetaminophen 650 mg 01/24/17 09:33 01/29/17 06:30 Tylenol - PO 650 mg Q6H PRN Administration PAIN Bupropion HCl 150 mg 01/24/17 10:00 02/02/17 09:09 Wellbutrin Xl - PO 150 mg DAILY VIRGILIO Administration Carbamide Perox/Anhydrous Glycerin 5 drop 02/01/17 22:00 02/02/17 09:11 Debrox - AD 02/03/17 23:59 5 drop BID VIRGILIO Administration Diltiazem HCl 300 mg 01/24/17 10:00 02/02/17 09:10 Cardizem Cd - PO 300 mg DAILY VIRGILIO Administration Fentanyl 1 patch 01/30/17 18:45 01/30/17 21:01 Duragesic 25mcg Patch - TD 1 patch Q72H VIRGILIO Administration Furosemide 40 mg 01/24/17 10:00 02/02/17 09:10 Lasix - PO 40 mg DAILY VIRGILIO Administration Glipizide 5 mg 01/24/17 07:00 02/02/17 06:46 Glucotrol - PO 5 mg DAILY@0700 VIRGILIO Administration Guaifenesin 5 ml 01/26/17 20:29 01/30/17 23:30 Diabetic Tussin Dm - PO 5 ml Q6H PRN Administration COUGH Cefepime HCl 1 gm/ Dextrose 100 mls @ 200 mls/hr 01/28/17 14:17 02/02/17 09:10 IVPB 200 mls/hr Q8H-IV VIRGILIO Administration Insulin Aspart 35 units 01/24/17 07:00 02/02/17 06:45 Novolog Mix 70/30 Vial SQ Not Given BIDAC VIRGILIO Insulin Aspart 1 vial 01/24/17 16:45 02/02/17 12:26 Novolog Vial Sliding Scale - SQ Not Given ACHS [facility] Protocol Levothyroxine Sodium 75 mcg 01/24/17 07:00 02/02/17 06:46 Synthroid - PO 75 mcg DAILY@0700 VIRGILIO Administration Loratadine 10 mg 01/24/17 10:00 02/02/17 09:10 Claritin - PO 10 mg DAILY VIRGILIO Administration Metformin HCl 500 mg 01/24/17 07:00 02/02/17 06:46 Glucophage - PO 500 mg BIDAC VIRGILIO Administration Miscellaneous 1 each 01/30/17 11:19 01/31/17 02:15 Duragesic Patch Waste TD 1 each PRN PRN Administration PAIN Multi-Ingredient Lotion 1 applic 01/25/17 22:00 02/02/17 09:11 Eucerin (Small Jar) - TP Not Given BID VIRGILIO [id number]-9-[id number] Ethyl Esters 1 gm 01/23/17 22:00 02/02/17 09:09 Lovaza - PO 1 gm BID VIRGILIO Administration Ondansetron HCl 8 mg 01/23/17 12:21 02/02/17 09:10 Zofran Injection IVPB 8 mg Q12H PRN Administration NAUSEA AND/OR VOMITING Polyethylene Glycol 17 gm 01/30/17 22:00 02/02/17 09:11 Miralax (For Daily Use) - PO Not Given BID VIRGILIO Ranitidine HCl 150 mg 01/24/17 10:00 02/02/17 09:09 Zantac - PO 150 mg DAILY VIRGILIO Administration Senna 2 tab 01/29/17 10:48 01/29/17 21:09 Senna - PO 2 tab HS PRN Administration CONSTIPATION Tiotropium [place] 1 puff 01/24/17 10:00 02/02/17 09:09 Spiriva - IH 1 puff DAILY VIRGILIO Administration Warfarin Sodium 1.5 mg 02/01/17 18:00 02/01/17 17:12 Coumadin - PO 1.5 mg DAILY@1800 VIRGILIO Administration Assessment/Plan: Metastatic high grade mullerian cancer. on second line chemo, s.p C1D1 gemzar on 01/23. -pain control: -decreased counts: not neutropenic, thrombocytopenia from gem, will continue to monitor. -daily INR check , INR from today pending [coumadin decreased yesterday to 1.5 mg po q day] -mild IVF today -PT eval. -overall she feels "down".
[2017-02-02] MEDS ORDERED: traMADol HCL 50 MG TABLET PO PRN (13:45)
[2017-02-02 13:55] LABS: INR 3.99 (0.82-1.09); PROTHROMBIN TIME (PATIENT) 45.1 SEC (9.98-11.88)
[2017-02-02] MEDS: fentaNYL 25mcg/hr PATCH.TD72 TD SCH (17:49)
[2017-02-03] MEDS ORDERED: CEFEPIME HCL 1 GM VIAL (RESTRICTED TO ID) ONE ×2 (00:35→10:39)
[2017-02-03] MEDS ORDERED: DEXTROSE 5%-WATER 100 ML IVPB ONE ×2 (00:35→10:39)
[2017-02-03] MEDS: CEFEPIME 1 GM in DEXTROSE 5%-WATER 100 ML IVPB SCH ×2 (01:02→10:44)
[2017-02-03] MEDS: INSULIN (NOVOLOG MIX 70/30) 100 UNITS/ML MDV SQ SCH ×2 (06:30→17:16)
[2017-02-03] MEDS: INSULIN SLIDING SCALE (NOVOLOG) 1 VIAL SQ SCH ×4 (06:30→21:30)
[2017-02-03] MEDS: glipiZIDE 5 MG TABLET (FP) PO SCH (06:31)
[2017-02-03] MEDS: LEVOTHYROXINE NA 75 MCG TABLET (FP) PO SCH (06:31)
[2017-02-03] MEDS: metFORMIN HCL 500 MG TABLET (FP) PO SCH ×2 (06:31→17:13)
[2017-02-03 08:06] LABS: INR 4.07 (0.82-1.09)
[2017-02-03 09:52] LABS: MCH 32.3 pg (25.7-33.7); MCHC 33.2 g/dl (32.0-36.0); MEAN CELL VOLUME 97.4 fl (80-96); MEAN PLT VOLUME 9.1 fl (7.5-11.1); PLATELET COUNT 72 K/MM3 (134-434); RDW 18.6 % (11.6-15.6); WHITE BLOOD COUNT 4.6 K/mm3 (4.0-10.0)
[2017-02-03 10:17] LABS: ALBUMIN 1.9 g/dl (3.4-5.0); ALK PHOS 117 U/L (45-117); ANION GAP 9 (8-16); BILIRUBIN,TOTAL 0.6 mg/dL (0.2-1.0); CALCIUM 8.8 mg/dL (8.5-10.1); CO2 29 mmol/L (21-32); CREATININE 0.7 mg/dL (0.55-1.02); GLUCOSE,RANDOM 85 mg/dL (74-106); SGOT/AST 81 U/L (15-37); SGPT/ALT 43 U/L (12-78); TOT PROT 5.5 g/dl (6.4-8.2)
--- NOTE | 2017-02-03 10:27 | PN ---
Progress Note (short form) - Note Progress Note: PULMONARY Feels weak overall, unsteady with walking. Some wheezing overnight. Some dark hemoptysis overnight as well but no further episodes this AM. Last Vital Signs Temp Pulse Resp BP Pulse Ox 97.5 F L 82 20 111/55 95 02/03/17 05:52 02/03/17 10:23 02/03/17 05:52 02/03/17 05:52 02/03/17 10:23 Gen: NAD in chair Heart: RRR Lung: decreased breath sounds at the bases Abd: soft, nontender Ext: + edema CBC, BMP 02/03/17 06:00 02/03/17 06:00 Active Medications Acetaminophen (Tylenol -) 325 mg PO Q6H PRN PRN Reason: PAIN Last Admin: 01/24/17 09:40 Dose: 325 mg Acetaminophen (Tylenol -) 650 mg PO Q6H PRN PRN Reason: PAIN Last Admin: 01/29/17 06:30 Dose: 650 mg Bupropion HCl (Wellbutrin Xl -) 150 mg PO DAILY VIRGILIO Last Admin: 02/02/17 09:09 Dose: 150 mg Carbamide Perox/Anhydrous Glycerin (Debrox -) 5 drop AD BID VIRGILIO Stop: 02/03/17 23:59 Last Admin: 02/02/17 21:42 Dose: 5 drop Diltiazem HCl (Cardizem Cd -) 300 mg PO DAILY VIRGILIO Last Admin: 02/02/17 09:10 Dose: 300 mg Fentanyl (Duragesic 25mcg Patch -) 1 patch TD Q72H VIRGILIO Last Admin: 02/02/17 17:49 Dose: 1 patch Furosemide (Lasix -) 40 mg PO DAILY IVRGILIO Last Admin: 02/02/17 09:10 Dose: 40 mg Glipizide (Glucotrol -) 5 mg PO DAILY@0700 [facility] Last Admin: 02/03/17 06:31 Dose: 5 mg Guaifenesin (Diabetic Tussin Dm -) 5 ml PO Q6H PRN PRN Reason: COUGH Last Admin: 01/30/17 23:30 Dose: 5 ml Cefepime HCl 1 gm/ Dextrose 100 mls @ 200 mls/hr IVPB Q8H-IV VIRGILIO Last Admin: 02/03/17 01:02 Dose: 200 mls/hr Insulin Aspart (Novolog Mix 70/30 Vial) 35 units SQ BIDAC [facility] Last Admin: 02/03/17 06:30 Dose: Not Given Insulin Aspart (Novolog Vial Sliding Scale -) 1 vial SQ ACHS [facility] PRN Reason: Protocol Last Admin: 02/03/17 06:30 Dose: Not Given Levothyroxine Sodium (Synthroid -) 75 mcg PO DAILY@0700 [facility] Last Admin: 02/03/17 06:31 Dose: 75 mcg Loratadine (Claritin -) 10 mg PO DAILY [facility] Last Admin: 02/02/17 09:10 Dose: 10 mg Metformin HCl (Glucophage -) 500 mg PO BIDAC [facility] Last Admin: 02/03/17 06:31 Dose: 500 mg Miscellaneous (Duragesic Patch Waste) 1 each TD PRN PRN PRN Reason: PAIN Last Admin: 01/31/17 02:15 Dose: 1 each Multi-Ingredient Lotion (Eucerin (Small Jar) -) 1 applic TP BID [facility] Last Admin: 02/02/17 21:37 Dose: Not Given Ibbxq-3-Xuji Ethyl Esters (Lovaza -) 1 gm PO BID [facility] Last Admin: 02/02/17 21:42 Dose: 1 gm Ondansetron HCl (Zofran Injection) 8 mg IVPB Q12H PRN PRN Reason: NAUSEA AND/OR VOMITING Last Admin: 02/02/17 09:10 Dose: 8 mg Polyethylene Glycol (Miralax (For Daily Use) -) 17 gm PO BID [facility] Last Admin: 02/02/17 21:43 Dose: Not Given Ranitidine HCl (Zantac -) 150 mg PO DAILY [facility] Last Admin: 02/02/17 09:09 Dose: 150 mg Senna (Senna -) 2 tab PO HS PRN PRN Reason: CONSTIPATION Last Admin: 01/29/17 21:09 Dose: 2 tab Tiotropium [place] (Spiriva -) 1 puff IH DAILY [facility] Last Admin: 02/02/17 09:09 Dose: 1 puff Tramadol HCl (Ultram -) 50 mg PO Q8H PRN PRN Reason: PAIN Stop: 02/04/17 23:59 Warfarin Sodium (Coumadin -) 0.5 mg PO DAILY@1800 [facility] A/P Metastatic High Grade Mullerian Cancer with Lung Mets Hemoptysis Atrial Fibrillation Depression HTN DM Hypothyroidism Morbid Obesity - empiric antibiotics per ID - monitor hemoptysis - humidify oxygen - continue anticoagulation for now - rehab/PT
[2017-02-03] MEDS ORDERED: INSULIN (NOVOLOG) ASPART 100 UNITS/ML 10ML VIAL ONE (10:37)
[2017-02-03] MEDS ORDERED: PT OWN MED DRAWER 7, Y5N ONE ×2 (10:39→22:04)
[2017-02-03] MEDS: OMEGA-3 ACID ETHYL ESTERS (FATTY-ACIDS) 1 GM CAPSULE (FP) PO SCH ×2 (10:43→21:29)
[2017-02-03] MEDS: RANITIDINE HCL 150 MG TABLET (FP) PO SCH (10:43)
[2017-02-03] MEDS: FUROSEMIDE 40 MG TABLET (FP) PO SCH (10:43)
[2017-02-03] MEDS: LORATADINE 10 MG TABLET PO SCH (10:44)
[2017-02-03] MEDS: POLYETHYLENE GLYCOL 3350 119 GM BTL PO SCH (10:44)
[2017-02-03] MEDS: TIOTROPIUM BROMIDE 18 MCG/INH (DEVICE W/ 5 CAPSULES) IH SCH (10:45)
[2017-02-03] MEDS: CARBAMIDE PEROXIDE 6.5% OTIC 15 ML BOTTLE AD SCH ×2 (10:45→21:30)
[2017-02-03] MEDS: MINERAL OIL/PETROLAT/WATER TOPICAL CREAM 113 GM JAR TP SCH ×2 (10:45→21:30)
[2017-02-03] MEDS: guaiFENesin/D-M SUGAR-FREE/ACLHOL-FREE 118 ML BOTTLE PO PRN (10:46)
--- NOTE | 2017-02-03 11:34 | PN ---
Progress Note (short form) - Note Progress Note: condition same sitting in chair. feels weak/ tired Vital Signs Temp 97.8 F 02/03/17 10:34 Pulse 99 H 02/03/17 10:34 Resp 19 02/03/17 10:34 BP 117/68 02/03/17 10:34 Pulse Ox 95 02/03/17 10:23 Intake & Output 02/02/17 02/02/17 02/03/17 11:59 23:59 11:59 Intake Total 100 1525 100 Output Total 400 Balance 100 1125 100 Intake: IV 1125 Portacath 1125 IVPB 100 300 100 Oral 100 Output: Urine 400 Void 400 Other: Voiding Method Toilet Toilet Toilet # Unmeasured Voids Void 1 1 Bowel Movement No Active Medications Acetaminophen (Tylenol -) 325 mg PO Q6H PRN PRN Reason: PAIN Last Admin: 01/24/17 09:40 Dose: 325 mg Acetaminophen (Tylenol -) 650 mg PO Q6H PRN PRN Reason: PAIN Last Admin: 01/29/17 06:30 Dose: 650 mg Bupropion HCl (Wellbutrin Xl -) 150 mg PO DAILY VIRGILIO Last Admin: 02/03/17 10:43 Dose: 150 mg Carbamide Perox/Anhydrous Glycerin (Debrox -) 5 drop AD BID VIRGILIO Stop: 02/03/17 23:59 Last Admin: 02/03/17 10:45 Dose: 5 drop Diltiazem HCl (Cardizem Cd -) 300 mg PO DAILY VIRGILIO Last Admin: 02/03/17 10:44 Dose: 300 mg Fentanyl (Duragesic 25mcg Patch -) 1 patch TD Q72H VIRGILIO Last Admin: 02/02/17 17:49 Dose: 1 patch Furosemide (Lasix -) 40 mg PO DAILY VIRGILIO Last Admin: 02/03/17 10:43 Dose: 40 mg Glipizide (Glucotrol -) 5 mg PO DAILY@0700 VIRGILIO Last Admin: 02/03/17 06:31 Dose: 5 mg Guaifenesin (Diabetic Tussin Dm -) 5 ml PO Q6H PRN PRN Reason: COUGH Last Admin: 02/03/17 10:46 Dose: 5 ml Cefepime HCl 1 gm/ Dextrose 100 mls @ 200 mls/hr IVPB Q8H-IV VIRGILIO Last Admin: 02/03/17 10:44 Dose: 200 mls/hr Insulin Aspart (Novolog Mix 70/30 Vial) 35 units SQ BIDAC [facility] Last Admin: 02/03/17 06:30 Dose: Not Given Insulin Aspart (Novolog Vial Sliding Scale -) 1 vial SQ ACHS VIRGILIO PRN Reason: Protocol Last Admin: 02/03/17 11:26 Dose: Not Given Levothyroxine Sodium (Synthroid -) 75 mcg PO DAILY@0700 [facility] Last Admin: 02/03/17 06:31 Dose: 75 mcg Loratadine (Claritin -) 10 mg PO DAILY [facility] Last Admin: 02/03/17 10:44 Dose: 10 mg Metformin HCl (Glucophage -) 500 mg PO BIDAC [facility] Last Admin: 02/03/17 06:31 Dose: 500 mg Miscellaneous (Duragesic Patch Waste) 1 each TD PRN PRN PRN Reason: PAIN Last Admin: 01/31/17 02:15 Dose: 1 each Multi-Ingredient Lotion (Eucerin (Small Jar) -) 1 applic TP BID [facility] Last Admin: 02/03/17 10:45 Dose: Not Given Bdcoq-5-Iwix Ethyl Esters (Lovaza -) 1 gm PO BID [facility] Last Admin: 02/03/17 10:43 Dose: 1 gm Ondansetron HCl (Zofran Injection) 8 mg IVPB Q12H PRN PRN Reason: NAUSEA AND/OR VOMITING Last Admin: 02/02/17 09:10 Dose: 8 mg Polyethylene Glycol (Miralax (For Daily Use) -) 17 gm PO BID [facility] Last Admin: 02/03/17 10:44 Dose: Not Given Potassium Chloride (K-Dur -) 20 meq PO DAILY [facility] Ranitidine HCl (Zantac -) 150 mg PO DAILY [facility] Last Admin: 02/03/17 10:43 Dose: 150 mg Senna (Senna -) 2 tab PO HS PRN PRN Reason: CONSTIPATION Last Admin: 01/29/17 21:09 Dose: 2 tab Tiotropium [place] (Spiriva -) 1 puff IH DAILY [facility] Last Admin: 02/03/17 10:45 Dose: 1 puff Tramadol HCl (Ultram -) 50 mg PO Q8H PRN PRN Reason: PAIN Stop: 02/04/17 23:59 Warfarin Sodium (Coumadin -) 0.5 mg PO DAILY@1800 [facility] CBC, BMP 02/03/17 06:00 02/03/17 06:00 Physical Exam. Constitutional: Yes: No Distress/ weak Cardiovascular: Yes: Pulse Irregular. Respiratory: Yes: Diminished at bases Gastrointestinal: Yes: Normal Bowel Sounds, Soft, Abdomen, Obese. No: Distention, Tenderness Edema: Yes NEURO- ALERT AND AWAKE Problem List - Problems (1) A-fib Code(s): I48.91 - UNSPECIFIED ATRIAL FIBRILLATION Qualifiers: (2) Depression, major, severe recurrence Code(s): F33.2 - MAJOR DEPRESSV DISORDER, RECURRENT SEVERE W/O PSYCH FEATURES (3) Primary cancer of ovary with widespread metastatic disease Code(s): C56.9 - MALIGNANT NEOPLASM OF UNSPECIFIED OVARY C80.0 - DISSEMINATED MALIGNANT NEOPLASM, UNSPECIFIED (4) Metabolic encephalopathy Code(s): G93.41 - METABOLIC ENCEPHALOPATHY (5) Intractable back pain Code(s): M54.9 - DORSALGIA, UNSPECIFIED Assessment/Plan Condition same problems as listed continue present care abx overall condition poor pt is DNR/ Di. follow inr coumadin on hold will follow further plans per oncology
--- NOTE | 2017-02-03 13:56 | PN ---
Progress Note (short form) - Note Progress Note: Patient seen and examined more awake Had mild hemoptysis last night Last Vital Signs Temp Pulse Resp BP Pulse Ox 97.8 F 84 18 123/59 95 01/30/17 05:43 01/30/17 11:22 01/30/17 11:22 01/30/17 11:22 01/30/17 10:01 Cor: RSR, No murmurs, No gallops Lungs: decreased left base Abd: Soft, Normal bowel sounds, No organomegaly Ext:lymphedema Abnormal Lab Results 01/30/17 01/30/17 01/30/17 06:00 06:00 06:00 RBC 2.63 L Hgb 8.5 L Hct 25.6 L MCV 97.4 H RDW 18.3 H Plt Count 72 L PT with INR 30.20 H INR 2.67 H Sodium 133 L Anion Gap 7 L Random Glucose 125 H Home Medication List Medication Instructions Recorded Confirmed Type Levothyroxine [Synthroid -] 75 mcg PO DAILY 10/17/12 01/02/17 History Loratadine [Claritin -] 10 mg PO DAILY 10/17/12 01/02/17 History Metformin HCl [Glucophage] 500 mg PO BID 10/17/12 01/02/17 History [place]-3 Acid Ethyl Esters [Lovaza 1,000 mg PO TID 10/17/12 01/02/17 History -] Insulin Aspart [Novolog Flexpen] 35 unit SQ BID 10/14/16 01/02/17 History Potassium Chloride 10 meq PO DAILY 10/24/16 01/02/17 History Diltiazem Cd [Cardizem Cd -] 300 mg PO DAILY 10/25/16 10/25/16 History Furosemide [Lasix -] 40 mg PO DAILY 01/02/17 01/02/17 History Montelukast Na [Singulair -] 10 mg PO HS 01/02/17 01/02/17 History Active Medications Generic Name Dose Route Start Last Admin Trade Name Freq PRN Reason Stop Dose Admin Acetaminophen 325 mg 01/24/17 09:32 01/24/17 09:40 Tylenol - PO 325 mg Q6H PRN Administration PAIN Acetaminophen 650 mg 01/24/17 09:33 01/29/17 06:30 Tylenol - PO 650 mg Q6H PRN Administration PAIN Albuterol Sulfate 1 amp 01/28/17 00:00 01/30/17 06:54 Ventolin 0.042trength) - NEB 1 amp QIDR VIRGILIO Administration Bupropion HCl 150 mg 01/24/17 10:00 01/29/17 09:38 Wellbutrin Xl - PO 150 mg DAILY VIRGILIO Administration Diltiazem HCl 300 mg 01/24/17 10:00 01/29/17 09:38 Cardizem Cd - PO 300 mg DAILY VIRGILIO Administration Fentanyl 1 patch 01/30/17 11:30 Duragesic 25mcg Patch - TD 02/06/17 11:19 Q72H VIRGILIO Furosemide 40 mg 01/24/17 10:00 01/29/17 09:38 Lasix - PO 40 mg DAILY VIRGILIO Administration Glipizide 5 mg 01/24/17 07:00 01/30/17 06:18 Glucotrol - PO 5 mg DAILY@0700 VIRGILIO Administration Guaifenesin 5 ml 01/26/17 20:29 01/29/17 21:11 Diabetic Tussin Dm - PO 5 ml Q6H PRN Administration COUGH Cefepime HCl 1 gm/ Dextrose 100 mls @ 200 mls/hr 01/28/17 14:17 01/30/17 02:00 IVPB 200 mls/hr Q8H-IV VIRGILIO Administration Insulin Aspart 35 units 01/24/17 07:00 01/30/17 06:18 Novolog Mix 70/30 Vial SQ Not Given BIDAC VIRGILIO Insulin Aspart 1 vial 01/24/17 16:45 01/30/17 06:19 Novolog Vial Sliding Scale - SQ Not Given ACHS [facility] Protocol Levothyroxine Sodium 75 mcg 01/24/17 07:00 01/30/17 06:18 Synthroid - PO 75 mcg DAILY@0700 VIRGILIO Administration Loratadine 10 mg 01/24/17 10:00 01/29/17 09:38 Claritin - PO 10 mg DAILY VIRGILIO Administration Metformin HCl 500 mg 01/24/17 07:00 01/30/17 06:18 Glucophage - PO 500 mg BIDAC VIRGILIO Administration Miscellaneous 1 each 01/30/17 11:19 Duragesic Patch Waste TD PRN PRN PAIN Multi-Ingredient Lotion 1 applic 01/25/17 22:00 01/29/17 21:09 Eucerin (Small Jar) - TP 1 applic BID VIRGILIO Administration Cirgq-7-Sklr Ethyl Esters 1 gm 01/23/17 22:00 01/29/17 21:09 Lovaza - PO 1 gm BID VIRGILIO Administration Ondansetron HCl 8 mg 01/23/17 12:21 01/29/17 16:36 Zofran Injection IVPB 8 mg Q12H PRN Administration NAUSEA AND/OR VOMITING Polyethylene Glycol 17 gm 01/24/17 10:00 01/29/17 09:41 Miralax (For Daily Use) - PO 17 gm DAILY VIRGILIO Administration Ranitidine HCl 150 mg 01/24/17 10:00 01/29/17 09:52 Zantac - PO 150 mg DAILY VIRGILIO Administration Senna 2 tab 01/29/17 10:48 01/29/17 21:09 Senna - PO 2 tab HS PRN Administration CONSTIPATION Tiotropium [place] 1 puff 01/24/17 10:00 01/29/17 09:40 Spiriva - IH 1 puff DAILY VIRGILIO Administration Tramadol HCl 50 mg 01/29/17 06:52 01/29/17 22:29 Ultram - PO 50 mg Q6H PRN Administration Warfarin Sodium 2.5 mg 01/29/17 18:00 01/29/17 17:12 Coumadin - PO 2.5 mg DAILY@1800 VIRGILIO Administration A/P 61 y/o with metastatic high grade mullerian cancer, serous adenoca s/p carbo/taxol with stable disease, but most recently has been progressing C1 D12 gemzar thrombocytopenia from gemzar Monitor for hemoptysis Monitor INR closely anemia related to chemotherapy transfuse 2units PRBCs pain control --on tramadol. on fentanyl 25 mcg Q 72hrs, diarrhea--hold miralax afib On coumadin---on hold due to INR of 4 chemotherapy induced thrombocytopenia--may need platelets if < 50,000 as patient on anticoagulation [facility] f/u [facility], [place] assay results
[2017-02-03] MEDS: POTASSIUM CHLORIDE TABS 20 MEQ TABLET.ER (FP) PO SCH (14:37)
[2017-02-03] MEDS ORDERED: ALBUTEROL SO4 0.5 % INH SOLN 2.5 MG/0.5 ML VIAL.NEB. NEB ONE (16:38)
[2017-02-03] MEDS: ALBUTEROL SO4 0.042% IH SOL 1.25 MG/3 ML VIAL.NEB NEB SCH (17:28)
[2017-02-04] MEDS: ALBUTEROL SO4 0.042% IH SOL 1.25 MG/3 ML VIAL.NEB NEB SCH ×5 (00:15→23:00)
[2017-02-04] MEDS: INSULIN SLIDING SCALE (NOVOLOG) 1 VIAL SQ SCH ×4 (06:10→21:34)
[2017-02-04] MEDS: INSULIN (NOVOLOG MIX 70/30) 100 UNITS/ML MDV SQ SCH ×2 (06:10→16:55)
[2017-02-04] MEDS: metFORMIN HCL 500 MG TABLET (FP) PO SCH ×2 (06:11→16:53)
[2017-02-04] MEDS: glipiZIDE 5 MG TABLET (FP) PO SCH (06:11)
[2017-02-04] MEDS: LEVOTHYROXINE NA 75 MCG TABLET (FP) PO SCH (06:11)
[2017-02-04] MEDS ORDERED: INSULIN (NOVOLOG) ASPART 100 UNITS/ML 10ML VIAL ONE (06:49)
[2017-02-04] MEDS ORDERED: PT OWN MED DRAWER 7, Y5N ONE ×2 (09:08→10:39)
[2017-02-04] MEDS: OMEGA-3 ACID ETHYL ESTERS (FATTY-ACIDS) 1 GM CAPSULE (FP) PO SCH ×2 (09:14→21:34)
[2017-02-04] MEDS: LORATADINE 10 MG TABLET PO SCH (09:15)
[2017-02-04] MEDS: RANITIDINE HCL 150 MG TABLET (FP) PO SCH (09:15)
[2017-02-04] MEDS: FUROSEMIDE 40 MG TABLET (FP) PO SCH (09:16)
[2017-02-04] MEDS: POTASSIUM CHLORIDE TABS 20 MEQ TABLET.ER (FP) PO SCH (09:17)
[2017-02-04] MEDS: TIOTROPIUM BROMIDE 18 MCG/INH (DEVICE W/ 5 CAPSULES) IH SCH (09:17)
[2017-02-04] MEDS: MINERAL OIL/PETROLAT/WATER TOPICAL CREAM 113 GM JAR TP SCH ×2 (09:19→21:34)
[2017-02-04] MEDS: guaiFENesin/D-M SUGAR-FREE/ACLHOL-FREE 118 ML BOTTLE PO PRN (09:25)
[2017-02-04 09:57] LABS: MCH 32.5 pg (25.7-33.7); MCHC 33.6 g/dl (32.0-36.0); MEAN CELL VOLUME 96.7 fl (80-96); MEAN PLT VOLUME 8.8 fl (7.5-11.1); PLATELET COUNT 103 K/MM3 (134-434); RDW 18.6 % (11.6-15.6); WHITE BLOOD COUNT 5.6 K/mm3 (4.0-10.0)
[2017-02-04 10:12] LABS: INR 3.71 (0.82-1.09); PROTHROMBIN TIME (PATIENT) 41.9 SEC (9.98-11.88)
--- NOTE | 2017-02-04 10:34 | PN ---
Progress Note (short form) - Note Progress Note: PULMONARY No further hemoptysis. Some dyspnea especially with exertion. Last Vital Signs Temp Pulse Resp BP Pulse Ox 97.6 F 79 20 122/54 96 02/04/17 06:00 02/04/17 06:00 02/04/17 06:00 02/04/17 06:00 02/03/17 21:00 Gen: NAD in chair Heart: RRR Lung: decreased breath sounds at the bases Abd: soft, nontender Ext: + edema CBC, BMP 02/04/17 09:35 INR, PTT INR 3.71 (0.82-1.09) H 02/04/17 09:35 Active Medications Acetaminophen (Tylenol -) 325 mg PO Q6H PRN PRN Reason: PAIN Last Admin: 01/24/17 09:40 Dose: 325 mg Acetaminophen (Tylenol -) 650 mg PO Q6H PRN PRN Reason: PAIN Last Admin: 01/29/17 06:30 Dose: 650 mg Albuterol Sulfate (Ventolin 0.042trength) -) 1 amp NEB Q6HPO [facility] Last Admin: 02/04/17 06:35 Dose: 1 amp Bupropion HCl (Wellbutrin Xl -) 150 mg PO DAILY [facility] Last Admin: 02/04/17 09:16 Dose: 150 mg Diltiazem HCl (Cardizem Cd -) 300 mg PO DAILY [facility] Last Admin: 02/04/17 09:16 Dose: 300 mg Fentanyl (Duragesic 25mcg Patch -) 1 patch TD Q72H [facility] Last Admin: 02/02/17 17:49 Dose: 1 patch Furosemide (Lasix -) 40 mg PO DAILY [facility] Last Admin: 02/04/17 09:16 Dose: 40 mg Glipizide (Glucotrol -) 5 mg PO DAILY@0700 [facility] Last Admin: 02/04/17 06:11 Dose: 5 mg Guaifenesin (Diabetic Tussin Dm -) 5 ml PO Q6H PRN PRN Reason: COUGH Last Admin: 02/04/17 09:25 Dose: 5 ml Insulin Aspart (Novolog Mix 70/30 Vial) 35 units SQ BIDAC [facility] Last Admin: 02/04/17 06:10 Dose: Not Given Insulin Aspart (Novolog Vial Sliding Scale -) 1 vial SQ ACHS VIRGILIO PRN Reason: Protocol Last Admin: 02/04/17 06:10 Dose: Not Given Levothyroxine Sodium (Synthroid -) 75 mcg PO DAILY@0700 [facility] Last Admin: 02/04/17 06:11 Dose: 75 mcg Loratadine (Claritin -) 10 mg PO DAILY [facility] Last Admin: 02/04/17 09:15 Dose: 10 mg Metformin HCl (Glucophage -) 500 mg PO BIDAC [facility] Last Admin: 02/04/17 06:11 Dose: 500 mg Miscellaneous (Duragesic Patch Waste) 1 each TD PRN PRN PRN Reason: PAIN Last Admin: 01/31/17 02:15 Dose: 1 each Multi-Ingredient Lotion (Eucerin (Small Jar) -) 1 applic TP BID [facility] Last Admin: 02/04/17 09:19 Dose: Not Given Fyzzj-0-Cfbs Ethyl Esters (Lovaza -) 1 gm PO BID [facility] Last Admin: 02/04/17 09:14 Dose: 1 gm Ondansetron HCl (Zofran Injection) 8 mg IVPB Q12H PRN PRN Reason: NAUSEA AND/OR VOMITING Last Admin: 02/02/17 09:10 Dose: 8 mg Potassium Chloride (K-Dur -) 20 meq PO DAILY [facility] Last Admin: 02/04/17 09:17 Dose: 20 meq Ranitidine HCl (Zantac -) 150 mg PO DAILY [facility] Last Admin: 02/04/17 09:15 Dose: 150 mg Senna (Senna -) 2 tab PO HS PRN PRN Reason: CONSTIPATION Last Admin: 01/29/17 21:09 Dose: 2 tab Tiotropium [place] (Spiriva -) 1 puff IH DAILY [facility] Last Admin: 02/04/17 09:17 Dose: 1 puff Tramadol HCl (Ultram -) 50 mg PO Q8H PRN PRN Reason: PAIN Stop: 02/04/17 23:59 Warfarin Sodium (Coumadin -) 0.5 mg PO DAILY@1800 [facility] A/P Metastatic High Grade Mullerian Cancer with Lung Mets Hemoptysis Atrial Fibrillation Depression HTN DM Hypothyroidism Morbid Obesity - empiric antibiotics completed - monitor hemoptysis - humidify oxygen - continue anticoagulation for now, keep INR 2-3 - rehab/PT
[2017-02-04 11:01] LABS: ALBUMIN 2.4 g/dl (3.4-5.0); ANION GAP 7 (8-16); BILIRUBIN,TOTAL 1.4 mg/dL (0.2-1.0); CO2 31 mmol/L (21-32); GLUCOSE,RANDOM 159 mg/dL (74-106); TOT PROT 6.5 g/dl (6.4-8.2)
[2017-02-04 11:13] LABS: ALK PHOS 142 U/L (45-117); CREATININE 0.8 mg/dL (0.55-1.02); SGOT/AST 100 U/L (15-37); SGPT/ALT 53 U/L (12-78)
--- NOTE | 2017-02-04 11:20 | PN ---
Progress Note, Physician Chief Complaint: s/p 2 units PRBC feels tired no c/o pain no c/o dizziness legs are feeling heavy Lasix not helping her at the current dose - Current Medication List Current Medications: Active Medications Acetaminophen (Tylenol -) 325 mg PO Q6H PRN PRN Reason: PAIN Last Admin: 01/24/17 09:40 Dose: 325 mg Acetaminophen (Tylenol -) 650 mg PO Q6H PRN PRN Reason: PAIN Last Admin: 01/29/17 06:30 Dose: 650 mg Albuterol Sulfate (Ventolin 0.042trength) -) 1 amp NEB Q6HPO [facility] Last Admin: 02/04/17 06:35 Dose: 1 amp Bupropion HCl (Wellbutrin Xl -) 150 mg PO DAILY [facility] Last Admin: 02/04/17 09:16 Dose: 150 mg Diltiazem HCl (Cardizem Cd -) 300 mg PO DAILY [facility] Last Admin: 02/04/17 09:16 Dose: 300 mg Fentanyl (Duragesic 25mcg Patch -) 1 patch TD Q72H [facility] Last Admin: 02/02/17 17:49 Dose: 1 patch Furosemide (Lasix -) 40 mg PO DAILY [facility] Last Admin: 02/04/17 09:16 Dose: 40 mg Glipizide (Glucotrol -) 5 mg PO DAILY@0700 [facility] Last Admin: 02/04/17 06:11 Dose: 5 mg Guaifenesin (Diabetic Tussin Dm -) 5 ml PO Q6H PRN PRN Reason: COUGH Last Admin: 02/04/17 09:25 Dose: 5 ml Insulin Aspart (Novolog Mix 70/30 Vial) 35 units SQ BIDAC [facility] Last Admin: 02/04/17 06:10 Dose: Not Given Insulin Aspart (Novolog Vial Sliding Scale -) 1 vial SQ ACHS [facility] PRN Reason: Protocol Last Admin: 02/04/17 06:10 Dose: Not Given Levothyroxine Sodium (Synthroid -) 75 mcg PO DAILY@0700 [facility] Last Admin: 02/04/17 06:11 Dose: 75 mcg Loratadine (Claritin -) 10 mg PO DAILY [facility] Last Admin: 02/04/17 09:15 Dose: 10 mg Metformin HCl (Glucophage -) 500 mg PO BIDAC [facility] Last Admin: 02/04/17 06:11 Dose: 500 mg Miscellaneous (Duragesic Patch Waste) 1 each TD PRN PRN PRN Reason: PAIN Last Admin: 01/31/17 02:15 Dose: 1 each Multi-Ingredient Lotion (Eucerin (Small Jar) -) 1 applic TP BID [facility] Last Admin: 02/04/17 09:19 Dose: Not Given Avctu-7-Uqcy Ethyl Esters (Lovaza -) 1 gm PO BID [facility] Last Admin: 02/04/17 09:14 Dose: 1 gm Ondansetron HCl (Zofran Injection) 8 mg IVPB Q12H PRN PRN Reason: NAUSEA AND/OR VOMITING Last Admin: 02/02/17 09:10 Dose: 8 mg Potassium Chloride (K-Dur -) 20 meq PO DAILY [facility] Last Admin: 02/04/17 09:17 Dose: 20 meq Ranitidine HCl (Zantac -) 150 mg PO DAILY [facility] Last Admin: 02/04/17 09:15 Dose: 150 mg Senna (Senna -) 2 tab PO HS PRN PRN Reason: CONSTIPATION Last Admin: 01/29/17 21:09 Dose: 2 tab Tiotropium [place] (Spiriva -) 1 puff IH DAILY [facility] Last Admin: 02/04/17 09:17 Dose: 1 puff Tramadol HCl (Ultram -) 50 mg PO Q8H PRN PRN Reason: PAIN Stop: 02/04/17 23:59 Warfarin Sodium (Coumadin -) 0.5 mg PO DAILY@1800 [facility] - Objective Vital Signs: Vital Signs Temperature 97.6 F 02/04/17 06:00 Pulse Rate 79 02/04/17 06:00 Respiratory Rate 20 02/04/17 06:00 Blood Pressure 122/54 02/04/17 06:00 O2 Sat by Pulse Oximetry (%) 96 02/03/17 21:00 Constitutional: Yes: No Distress Cardiovascular: Yes: Pulse Irregular Respiratory: Yes: Diminished Gastrointestinal: Yes: Normal Bowel Sounds, Soft, Abdomen, Obese. No: Tenderness Edema: Yes Edema: LLE: 3+, RLE: 3+ Neurological: Yes: Other (depressed) Labs: CBC, BMP 02/04/17 09:35 02/04/17 09:35 INR, PTT INR 3.71 (0.82-1.09) H 10/17/17 09:35 Problem List - Problems (1) A-fib Code(s): I48.91 - UNSPECIFIED ATRIAL FIBRILLATION Qualifiers: (2) Depression, major, severe recurrence Code(s): F33.2 - MAJOR DEPRESSV DISORDER, RECURRENT SEVERE W/O PSYCH FEATURES (3) Primary cancer of ovary with widespread metastatic disease Code(s): C56.9 - MALIGNANT NEOPLASM OF UNSPECIFIED OVARY C80.0 - DISSEMINATED MALIGNANT NEOPLASM, UNSPECIFIED (4) Metabolic encephalopathy Code(s): G93.41 - METABOLIC ENCEPHALOPATHY (5) Intractable back pain Code(s): M54.9 - DORSALGIA, UNSPECIFIED Assessment/Plan PLAN pt appears severely depressed-- on Remeron to help with appetite as well Pain control with Fetanyl patch and Tramadol as needed HCT better Increase Lasix fatigue maybe due to her overall cancer status , depression continue with meds Advance directives--- DNR/DNI O 2 as needed, nebs as needed hold coumadin tonight dc Novolog mix-- pt not eating well-- has low sugars
[2017-02-04] MEDS ORDERED: FUROSEMIDE 20 MG TABLET (FP) PO ONE (13:00)
--- NOTE | 2017-02-04 15:43 | PN ---
Progress Note (short form) - Note Progress Note: Patient seen and examined. chart reviewed. feels weak. NO more dizziness. LE swelling ,. feels heavy. O/E General Appearance: Obese Lung: Clear to auscultation, Other (decreased Lt. lung base) Skin: itching excoriations. Abdomen: Soft, No tenderness, Normal bowel sounds Extremities: Other (lymphedema), some bruises seen in the lower Neurological: Intact CBC, BMP 02/04/17 09:35 02/04/17 09:35 Current Medications Generic Name Dose Route Start Last Admin Trade Name Freq PRN Reason Stop Dose Admin Acetaminophen 325 mg 01/24/17 09:32 01/24/17 09:40 Tylenol - PO 325 mg Q6H PRN Administration PAIN Acetaminophen 650 mg 01/24/17 09:33 01/29/17 06:30 Tylenol - PO 650 mg Q6H PRN Administration PAIN Albuterol Sulfate 1 amp 02/03/17 18:00 02/04/17 11:50 Ventolin 0.042trength) - NEB 1 amp Q6HPO [facility] Administration Bupropion HCl 150 mg 01/24/17 10:00 02/04/17 09:16 Wellbutrin Xl - PO 150 mg DAILY [facility] Administration Diltiazem HCl 300 mg 01/24/17 10:00 02/04/17 09:16 Cardizem Cd - PO 300 mg DAILY [facility] Administration Fentanyl 1 patch 01/30/17 18:45 02/02/17 17:49 Duragesic 25mcg Patch - TD 1 patch Q72H [facility] Administration Furosemide 60 mg 02/05/17 10:00 Lasix - PO DAILY [facility] Glipizide 5 mg 01/24/17 07:00 02/04/17 06:11 Glucotrol - PO 5 mg DAILY@0700 [facility] Administration Guaifenesin 5 ml 01/26/17 20:29 02/04/17 09:25 Diabetic Tussin Dm - PO 5 ml Q6H PRN Administration COUGH Insulin Aspart 35 units 01/24/17 07:00 02/04/17 06:10 Novolog Mix 70/30 Vial SQ Not Given BIDAC [facility] Insulin Aspart 1 vial 01/24/17 16:45 02/04/17 12:02 Novolog Vial Sliding Scale - SQ Not Given ACHS [facility] Protocol Levothyroxine Sodium 75 mcg 01/24/17 07:00 02/04/17 06:11 Synthroid - PO 75 mcg DAILY@0700 [facility] Administration Loratadine 10 mg 01/24/17 10:00 02/04/17 09:15 Claritin - PO 10 mg DAILY [facility] Administration Metformin HCl 500 mg 01/24/17 07:00 02/04/17 06:11 Glucophage - PO 500 mg BIDAC [facility] Administration Miscellaneous 1 each 01/30/17 11:19 01/31/17 02:15 Duragesic Patch Waste TD 1 each PRN PRN Administration PAIN Multi-Ingredient Lotion 1 applic 01/25/17 22:00 02/04/17 09:19 Eucerin (Small Jar) - TP Not Given BID [facility] Qpjlh-4-Ciyp Ethyl Esters 1 gm 01/23/17 22:00 02/04/17 09:14 Lovaza - PO 1 gm BID [facility] Administration Ondansetron HCl 8 mg 01/23/17 12:21 02/02/17 09:10 Zofran Injection IVPB 8 mg Q12H PRN Administration NAUSEA AND/OR VOMITING Potassium Chloride 20 meq 02/03/17 12:15 02/04/17 09:17 K-Dur - PO 20 meq DAILY [facility] Administration Ranitidine HCl 150 mg 01/24/17 10:00 02/04/17 09:15 Zantac - PO 150 mg DAILY [facility] Administration Senna 2 tab 01/29/17 10:48 01/29/17 21:09 Senna - PO 2 tab HS PRN Administration CONSTIPATION Tiotropium [place] 1 puff 01/24/17 10:00 02/04/17 09:17 Spiriva - IH 1 puff DAILY [facility] Administration Tramadol HCl 50 mg 02/02/17 13:45 Ultram - PO 02/04/17 23:59 Q8H PRN PAIN Warfarin Sodium 0.5 mg 02/02/17 18:00 Coumadin - PO DAILY@1800 [facility] Last Vital Signs Temp Pulse Resp BP Pulse Ox 97.5 F L 79 20 149/58 99 02/04/17 14:32 02/04/17 14:32 02/04/17 14:32 02/04/17 14:32 02/04/17 12:00 Assessment/Plan: Metastatic high grade mullerian cancer. on second line chemo, s.p C1D1 gemzar on 01/23. -pain control: fentanyl patch ,will continue -stopped cefepime. -thrombocytopenia, improving, [place] induced. -dizziness: improved than yesterday, after blood transfusion -pulm f/u appreciated -daily INR check ,hold coumadin today -PT eval. pt requesting walker -US LE: reviewed, no discrete collection, will give lasix . d/w . -start d/c planning.
[2017-02-04] MEDS: WARFARIN NA 1 MG TABLET (FP) PO SCH (17:09)
[2017-02-05] MEDS: INSULIN SLIDING SCALE (NOVOLOG) 1 VIAL SQ SCH ×4 (06:17→22:48)
[2017-02-05] MEDS: LEVOTHYROXINE NA 75 MCG TABLET (FP) PO SCH (06:18)
[2017-02-05] MEDS: ALBUTEROL SO4 0.042% IH SOL 1.25 MG/3 ML VIAL.NEB NEB SCH ×4 (06:29→23:49)
[2017-02-05] MEDS: metFORMIN HCL 500 MG TABLET (FP) PO SCH ×2 (06:45→17:21)
[2017-02-05] MEDS: glipiZIDE 5 MG TABLET (FP) PO SCH (06:46)
[2017-02-05 07:36] LABS: MCH 32.3 pg (25.7-33.7); MCHC 33.4 g/dl (32.0-36.0); MEAN CELL VOLUME 96.7 fl (80-96); MEAN PLT VOLUME 8.6 fl (7.5-11.1); PLATELET COUNT 122 K/MM3 (134-434); WHITE BLOOD COUNT 5.2 K/mm3 (4.0-10.0)
[2017-02-05 07:43] LABS: INR 3.39 (0.82-1.09); PROTHROMBIN TIME (PATIENT) 38.3 SEC (9.98-11.88)
[2017-02-05] MEDS ORDERED: PT OWN MED DRAWER 7, Y5N ONE ×2 (09:15→21:10)
[2017-02-05 09:24] LABS: PLATELET ESTIMATE DECREASED (NORMAL); TOTAL CELLS COUNTED 100
[2017-02-05] MEDS: POTASSIUM CHLORIDE TABS 20 MEQ TABLET.ER (FP) PO SCH (09:37)
[2017-02-05] MEDS: LORATADINE 10 MG TABLET PO SCH (09:37)
[2017-02-05] MEDS: OMEGA-3 ACID ETHYL ESTERS (FATTY-ACIDS) 1 GM CAPSULE (FP) PO SCH ×2 (09:37→21:24)
[2017-02-05] MEDS: RANITIDINE HCL 150 MG TABLET (FP) PO SCH (09:37)
[2017-02-05] MEDS: MINERAL OIL/PETROLAT/WATER TOPICAL CREAM 113 GM JAR TP SCH ×2 (09:57→21:23)
[2017-02-05] MEDS ORDERED: FUROSEMIDE 40 MG TABLET (FP) PO SCH (10:00)
[2017-02-05] MEDS ORDERED: ALBUTEROL SO4 2.5/IPRATROPIUM 0.5 INH SOL 3 ML VIAL.NEB. NEB PRN (10:23)
[2017-02-05] MEDS ORDERED: FENTANYL PATCH WASTE TD PRN (10:23)
[2017-02-05] MEDS: fentaNYL 12mcg/hr PATCH.TD72 TD SCH (10:55)
--- NOTE | 2017-02-05 11:06 | PN ---
Progress Note (short form) - Note Progress Note: PULMONARY WELL KNOWN TO OUR SERVICE OOB TO CHAIR GOING TO REHAB VSS/AFEBRILE PALE/ANICTERIC DISTANT BREATH SOUNDS S1S2 OBESE EDEMA LABS/MEDS/NOTES/IMAGING REVIEWED Metastatic High Grade Mullerian Cancer with Lung Mets Hemoptysis Atrial Fibrillation Depression HTN DM Hypothyroidism Morbid Obesity - empiric antibiotics completed - monitor hemoptysis - humidify oxygen - continue anticoagulation for now, keep INR 2-3 - rehab/PT Amy SULLIVAN MD
--- NOTE | 2017-02-05 12:08 | PN ---
Progress Note, Physician Chief Complaint: still feeling tired could not participate in PT , could not climb the steps in PT- she has about 6 steps to get in her house. - Current Medication List Current Medications: Active Medications Acetaminophen (Tylenol -) 325 mg PO Q6H PRN PRN Reason: PAIN Last Admin: 01/24/17 09:40 Dose: 325 mg Acetaminophen (Tylenol -) 650 mg PO Q6H PRN PRN Reason: PAIN Last Admin: 01/29/17 06:30 Dose: 650 mg Albuterol Sulfate (Ventolin 0.042trength) -) 1 amp NEB Q6HPO [facility] Last Admin: 02/05/17 11:15 Dose: Not Given Bupropion HCl (Wellbutrin Xl -) 150 mg PO DAILY [facility] Last Admin: 02/05/17 09:37 Dose: 150 mg Diltiazem HCl (Cardizem Cd -) 300 mg PO DAILY [facility] Last Admin: 02/05/17 09:37 Dose: 300 mg Docusate Sodium (Colace -) 100 mg PO Q8H PRN PRN Reason: CONSTIPATION Fentanyl (Duragesic 12mcg Patch -) 1 patch TD Q72H [facility] Stop: 02/12/17 10:24 Last Admin: 02/05/17 10:55 Dose: 1 patch Furosemide (Lasix Injection -) 20 mg IVPUSH ONCE ONE Stop: 02/05/17 12:07 Furosemide (Lasix -) 40 mg PO BID [facility] Glipizide (Glucotrol -) 5 mg PO DAILY@0700 [facility] Last Admin: 02/05/17 06:46 Dose: 5 mg Guaifenesin (Diabetic Tussin Dm -) 5 ml PO Q6H PRN PRN Reason: COUGH Last Admin: 02/04/17 09:25 Dose: 5 ml Insulin Aspart (Novolog Vial Sliding Scale -) 1 vial SQ ACHS [facility] PRN Reason: Protocol Last Admin: 02/05/17 06:17 Dose: Not Given Levothyroxine Sodium (Synthroid -) 75 mcg PO DAILY@0700 [facility] Last Admin: 02/05/17 06:18 Dose: 75 mcg Loratadine (Claritin -) 10 mg PO DAILY [facility] Last Admin: 02/05/17 09:37 Dose: 10 mg Metformin HCl (Glucophage -) 500 mg PO BIDAC [facility] Last Admin: 02/05/17 06:45 Dose: 500 mg Miscellaneous (Duragesic Patch Waste) 1 each TD PRN PRN PRN Reason: PAIN Last Admin: 01/31/17 02:15 Dose: 1 each Miscellaneous (Duragesic Patch Waste) 1 each TD PRN PRN PRN Reason: PAIN Stop: 02/12/17 10:22 Multi-Ingredient Lotion (Eucerin (Small Jar) -) 1 applic TP BID [facility] Last Admin: 02/04/17 21:34 Dose: Not Given Hlfhl-7-Sykb Ethyl Esters (Lovaza -) 1 gm PO BID [facility] Last Admin: 02/05/17 09:37 Dose: 1 gm Ondansetron HCl (Zofran Injection) 8 mg IVPB Q12H PRN PRN Reason: NAUSEA AND/OR VOMITING Last Admin: 02/02/17 09:10 Dose: 8 mg Potassium Chloride (K-Dur -) 20 meq PO DAILY [facility] Last Admin: 02/05/17 09:37 Dose: 20 meq Ranitidine HCl (Zantac -) 150 mg PO DAILY [facility] Last Admin: 02/05/17 09:37 Dose: 150 mg Senna (Senna -) 2 tab PO HS PRN PRN Reason: CONSTIPATION Last Admin: 01/29/17 21:09 Dose: 2 tab Tiotropium [place] (Spiriva -) 1 puff IH DAILY [facility] Last Admin: 02/04/17 09:17 Dose: 1 puff Tramadol HCl (Ultram -) 50 mg PO Q6H PRN PRN Reason: PAIN Warfarin Sodium (Coumadin -) 0.5 mg PO DAILY@1800 [facility] Last Admin: 02/04/17 17:09 Dose: Not Given - Objective Vital Signs: Vital Signs Temperature 98 F 02/05/17 05:30 Pulse Rate 86 02/05/17 05:30 Respiratory Rate 20 02/05/17 05:30 Blood Pressure 120/67 02/05/17 05:30 O2 Sat by Pulse Oximetry (%) 95 02/04/17 21:00 Constitutional: Yes: No Distress, Calm Cardiovascular: Yes: Pulse Irregular Respiratory: Yes: Diminished Gastrointestinal: Yes: Normal Bowel Sounds, Abdomen, Obese. No: Tenderness Edema: Yes Edema: LLE: 3+, RLE: 3+ Labs: CBC, BMP 02/05/17 06:00 02/04/17 09:35 INR, PTT INR 3.39 (0.82-1.09) H 02/05/17 06:00 Problem List - Problems (1) A-fib Code(s): I48.91 - UNSPECIFIED ATRIAL FIBRILLATION Qualifiers: (2) Depression, major, severe recurrence Code(s): F33.2 - MAJOR DEPRESSV DISORDER, RECURRENT SEVERE W/O PSYCH FEATURES (3) Primary cancer of ovary with widespread metastatic disease Code(s): C56.9 - MALIGNANT NEOPLASM OF UNSPECIFIED OVARY C80.0 - DISSEMINATED MALIGNANT NEOPLASM, UNSPECIFIED (4) Metabolic encephalopathy Code(s): G93.41 - METABOLIC ENCEPHALOPATHY (5) Intractable back pain Code(s): M54.9 - DORSALGIA, UNSPECIFIED Assessment/Plan PLAN pt appears severely depressed-- Pain control with Fetanyl patch and Tramadol as needed- start lasix BID , monitor renal function fatigue maybe due to her overall cancer status , depression continue with meds Advance directives--- DNR/DNI INR therapeutic , may resume coumadin O 2 as needed, nebs as needed dc Novolog mix-- pt not eating well-- has low sugars
[2017-02-05] MEDS ORDERED: FUROSEMIDE 40 MG/4 ML INJECTABLE VIAL IVPUSH ONE (12:40)
[2017-02-05] MEDS: traMADol HCL 50 MG TABLET PO PRN (12:53)
--- NOTE | 2017-02-05 13:24 | PN ---
Progress Note (short form) - Note Progress Note: Patient seen and examined. continue to have fatigue O/E General Appearance: Obese Lung: Clear to auscultation, Other (decreased Lt. lung base) Skin: itching excoriations. Abdomen: Soft, No tenderness, Normal bowel sounds Extremities: Other (lymphedema), some bruises seen in the lower Neurological: Intact CBC, BMP 02/04/17 09:35 02/04/17 09:35 Current Medications Generic Name Dose Route Start Last Admin Trade Name Freq PRN Reason Stop Dose Admin Acetaminophen 325 mg 01/24/17 09:32 01/24/17 09:40 Tylenol - PO 325 mg Q6H PRN Administration PAIN Acetaminophen 650 mg 01/24/17 09:33 01/29/17 06:30 Tylenol - PO 650 mg Q6H PRN Administration PAIN Albuterol Sulfate 1 amp 02/03/17 18:00 02/04/17 11:50 Ventolin 0.042trength) - NEB 1 amp Q6HPO [facility] Administration Bupropion HCl 150 mg 01/24/17 10:00 02/04/17 09:16 Wellbutrin Xl - PO 150 mg DAILY [facility] Administration Diltiazem HCl 300 mg 01/24/17 10:00 02/04/17 09:16 Cardizem Cd - PO 300 mg DAILY [facility] Administration Fentanyl 1 patch 01/30/17 18:45 02/02/17 17:49 Duragesic 25mcg Patch - TD 1 patch Q72H [facility] Administration Furosemide 60 mg 02/05/17 10:00 Lasix - PO DAILY [facility] Glipizide 5 mg 01/24/17 07:00 02/04/17 06:11 Glucotrol - PO 5 mg DAILY@0700 [facility] Administration Guaifenesin 5 ml 01/26/17 20:29 02/04/17 09:25 Diabetic Tussin Dm - PO 5 ml Q6H PRN Administration COUGH Insulin Aspart 35 units 01/24/17 07:00 02/04/17 06:10 Novolog Mix 70/30 Vial SQ Not Given BIDAC [facility] Insulin Aspart 1 vial 01/24/17 16:45 02/04/17 12:02 Novolog Vial Sliding Scale - SQ Not Given ACHS [facility] Protocol Levothyroxine Sodium 75 mcg 01/24/17 07:00 02/04/17 06:11 Synthroid - PO 75 mcg DAILY@0700 [facility] Administration Loratadine 10 mg 01/24/17 10:00 02/04/17 09:15 Claritin - PO 10 mg DAILY [facility] Administration Metformin HCl 500 mg 01/24/17 07:00 02/04/17 06:11 Glucophage - PO 500 mg BIDAC [facility] Administration Miscellaneous 1 each 01/30/17 11:19 01/31/17 02:15 Duragesic Patch Waste TD 1 each PRN PRN Administration PAIN Multi-Ingredient Lotion 1 applic 01/25/17 22:00 02/04/17 09:19 Eucerin (Small Jar) - TP Not Given BID [facility] Iusoc-4-Yxeb Ethyl Esters 1 gm 01/23/17 22:00 02/04/17 09:14 Lovaza - PO 1 gm BID [facility] Administration Ondansetron HCl 8 mg 01/23/17 12:21 02/02/17 09:10 Zofran Injection IVPB 8 mg Q12H PRN Administration NAUSEA AND/OR VOMITING Potassium Chloride 20 meq 02/03/17 12:15 02/04/17 09:17 K-Dur - PO 20 meq DAILY [facility] Administration Ranitidine HCl 150 mg 01/24/17 10:00 02/04/17 09:15 Zantac - PO 150 mg DAILY [facility] Administration Senna 2 tab 01/29/17 10:48 01/29/17 21:09 Senna - PO 2 tab HS PRN Administration CONSTIPATION Tiotropium [place] 1 puff 01/24/17 10:00 02/04/17 09:17 Spiriva - IH 1 puff DAILY [facility] Administration Tramadol HCl 50 mg 02/02/17 13:45 Ultram - PO 02/04/17 23:59 Q8H PRN PAIN Warfarin Sodium 0.5 mg 02/02/17 18:00 Coumadin - PO DAILY@1800 [facility] Last Vital Signs Temp Pulse Resp BP Pulse Ox 97.5 F L 79 20 149/58 99 02/04/17 14:32 02/04/17 14:32 02/04/17 14:32 02/04/17 14:32 02/04/17 12:00 Assessment/Plan: Metastatic high grade mullerian cancer. on second line chemo, s.p C1D1 gemzar on 01/23. -pain control: will re-start fentanyl 12mcg/hr as per request. -completed cefepime. -thrombocytopenia, improving, [place] induced. No further transfusion needed -daily INR check ,hold coumadin today. -LE edema: one dose of IV lasix and increased PO lasix to 60mg daily -PT eval would be down stairs today -her generalized weakness is a combination of malignancy, deconditioning. -start d/c planning. SNF to be considered for short term if chemo appts can be made. Pt presently not interested.
[2017-02-05] MEDS: FUROSEMIDE 40 MG TABLET (FP) PO SCH (14:43)
[2017-02-05] MEDS: TIOTROPIUM BROMIDE 18 MCG/INH (DEVICE W/ 5 CAPSULES) IH SCH (17:56)
[2017-02-05] MEDS: WARFARIN NA 1 MG TABLET (FP) PO SCH (17:57)
[2017-02-05] MEDS: ACETAMINOPHEN 325 MG TABLET (FP) PO PRN (22:07)
[2017-02-06] MEDS ORDERED: PT OWN MED DRAWER 7, Y5N ONE ×3 (05:53→10:04)
[2017-02-06] MEDS: ALBUTEROL SO4 0.042% IH SOL 1.25 MG/3 ML VIAL.NEB NEB SCH ×4 (06:06→23:14)
[2017-02-06] MEDS: FUROSEMIDE 40 MG TABLET (FP) PO SCH ×2 (06:26→13:41)
[2017-02-06] MEDS: metFORMIN HCL 500 MG TABLET (FP) PO SCH ×2 (06:26→17:14)
[2017-02-06] MEDS: glipiZIDE 5 MG TABLET (FP) PO SCH (06:26)
[2017-02-06] MEDS: LEVOTHYROXINE NA 75 MCG TABLET (FP) PO SCH (06:27)
[2017-02-06] MEDS: INSULIN SLIDING SCALE (NOVOLOG) 1 VIAL SQ SCH ×4 (06:38→21:31)
[2017-02-06 07:50] LABS: MCH 32.3 pg (25.7-33.7); MCHC 33.4 g/dl (32.0-36.0); MEAN CELL VOLUME 96.7 fl (80-96); MEAN PLT VOLUME 8.8 fl (7.5-11.1); PLATELET COUNT 157 K/MM3 (134-434); RDW 18.6 % (11.6-15.6); WHITE BLOOD COUNT 5.3 K/mm3 (4.0-10.0)
[2017-02-06 07:59] LABS: INR 2.35 (0.82-1.09); PROTHROMBIN TIME (PATIENT) 26.5 SEC (9.98-11.88)
[2017-02-06 08:13] LABS: ANION GAP 10 (8-16); CO2 32 mmol/L (21-32); CREATININE 0.6 mg/dL (0.55-1.02); GLUCOSE,RANDOM 106 mg/dL (74-106)
--- NOTE | 2017-02-06 08:56 | PN ---
Progress Note (short form) - Note Progress Note: The patient indicated that her pain level was an 8. After spending some time with her, she seemed more at ease and was smiling. Distraction and conversation about unrelated subject matter (not related to her illness) resulted in improved comfort. The patient was reminded to use the techniques she was taught to reduce pain and improve mood. Other professionals attending to the patient may remind her to use self applied acupressure, watch comedies on TV and listen to soothing music for comfort. The patient appeared to benefit from our short interaction.
[2017-02-06] MEDS: OMEGA-3 ACID ETHYL ESTERS (FATTY-ACIDS) 1 GM CAPSULE (FP) PO SCH ×2 (09:02→21:29)
[2017-02-06] MEDS: POTASSIUM CHLORIDE TABS 20 MEQ TABLET.ER (FP) PO SCH (09:02)
[2017-02-06] MEDS: RANITIDINE HCL 150 MG TABLET (FP) PO SCH (09:02)
[2017-02-06] MEDS: LORATADINE 10 MG TABLET PO SCH (09:03)
[2017-02-06] MEDS: traMADol HCL 50 MG TABLET PO PRN (09:11)
--- NOTE | 2017-02-06 10:01 | PN ---
Progress Note (short form) - Note Progress Note: PULMONARY No further hemoptysis. Some dyspnea especially with exertion but working with PT. Last Vital Signs Temp Pulse Resp BP Pulse Ox 97.7 F 79 20 107/56 97 02/06/17 05:40 02/06/17 05:40 02/06/17 05:40 02/06/17 05:40 02/05/17 21:00 Gen: NAD in chair Heart: RRR Lung: decreased breath sounds at the bases Abd: soft, nontender Ext: + edema CBC, BMP 02/06/17 06:00 02/06/17 06:00 Active Medications Acetaminophen (Tylenol -) 325 mg PO Q6H PRN PRN Reason: PAIN Last Admin: 02/05/17 22:07 Dose: 325 mg Acetaminophen (Tylenol -) 650 mg PO Q6H PRN PRN Reason: PAIN Last Admin: 01/29/17 06:30 Dose: 650 mg Albuterol Sulfate (Ventolin 0.042trength) -) 1 amp NEB Q6HPO [facility] Last Admin: 02/06/17 06:06 Dose: 1 amp Bupropion HCl (Wellbutrin Xl -) 150 mg PO DAILY [facility] Last Admin: 02/06/17 09:03 Dose: 150 mg Diltiazem HCl (Cardizem Cd -) 300 mg PO DAILY [facility] Last Admin: 02/06/17 09:03 Dose: 300 mg Docusate Sodium (Colace -) 100 mg PO Q8H PRN PRN Reason: CONSTIPATION Fentanyl (Duragesic 12mcg Patch -) 1 patch TD Q72H [facility] Stop: 02/12/17 10:24 Last Admin: 02/05/17 10:55 Dose: 1 patch Furosemide (Lasix -) 40 mg PO BID@0600,1400 [facility] Last Admin: 02/06/17 06:26 Dose: 40 mg Glipizide (Glucotrol -) 5 mg PO DAILY@0700 [facility] Last Admin: 02/06/17 06:26 Dose: 5 mg Guaifenesin (Diabetic Tussin Dm -) 5 ml PO Q6H PRN PRN Reason: COUGH Last Admin: 02/04/17 09:25 Dose: 5 ml Insulin Aspart (Novolog Vial Sliding Scale -) 1 vial SQ ACHS [facility] PRN Reason: Protocol Last Admin: 02/06/17 06:38 Dose: Not Given Levothyroxine Sodium (Synthroid -) 75 mcg PO DAILY@0700 [facility] Last Admin: 02/06/17 06:27 Dose: 75 mcg Loratadine (Claritin -) 10 mg PO DAILY [facility] Last Admin: 02/06/17 09:03 Dose: 10 mg Metformin HCl (Glucophage -) 500 mg PO BIDAC [facility] Last Admin: 02/06/17 06:26 Dose: 500 mg Miscellaneous (Duragesic Patch Waste) 1 each TD PRN PRN PRN Reason: PAIN Last Admin: 01/31/17 02:15 Dose: 1 each Miscellaneous (Duragesic Patch Waste) 1 each TD PRN PRN PRN Reason: PAIN Stop: 02/12/17 10:22 Multi-Ingredient Lotion (Eucerin (Small Jar) -) 1 applic TP BID [facility] Last Admin: 02/05/17 21:23 Dose: 1 applic Xhchn-7-Rjly Ethyl Esters (Lovaza -) 1 gm PO BID [facility] Last Admin: 02/06/17 09:02 Dose: 1 gm Ondansetron HCl (Zofran Injection) 8 mg IVPB Q12H PRN PRN Reason: NAUSEA AND/OR VOMITING Last Admin: 02/02/17 09:10 Dose: 8 mg Potassium Chloride (K-Dur -) 20 meq PO DAILY [facility] Last Admin: 02/06/17 09:02 Dose: 20 meq Ranitidine HCl (Zantac -) 150 mg PO DAILY [facility] Last Admin: 02/06/17 09:02 Dose: 150 mg Senna (Senna -) 2 tab PO HS PRN PRN Reason: CONSTIPATION Last Admin: 01/29/17 21:09 Dose: 2 tab Tiotropium [place] (Spiriva -) 1 puff IH DAILY [facility] Last Admin: 02/05/17 17:56 Dose: Not Given Tramadol HCl (Ultram -) 50 mg PO Q6H PRN PRN Reason: PAIN Last Admin: 02/06/17 09:11 Dose: 50 mg Warfarin Sodium (Coumadin -) 0.5 mg PO DAILY@1800 [facility] Last Admin: 02/05/17 17:57 Dose: Not Given A/P Metastatic High Grade Mullerian Cancer with Lung Mets Hemoptysis Atrial Fibrillation Depression HTN DM Hypothyroidism Morbid Obesity - empiric antibiotics completed - monitor hemoptysis - humidify oxygen - continue anticoagulation, keep INR 2-3 - rehab/PT
[2017-02-06] MEDS: TIOTROPIUM BROMIDE 18 MCG/INH (DEVICE W/ 5 CAPSULES) IH SCH (10:05)
[2017-02-06] MEDS ORDERED: traMADol HCL 50 MG TABLET PO PRN (12:03)
--- NOTE | 2017-02-06 12:03 | PN ---
Progress Note, Physician Chief Complaint: has pain in back no SOB not feeling very tired today she feels it may be due to Fentanyl patch She wants to get chemo - Current Medication List Current Medications: Active Medications Acetaminophen (Tylenol -) 325 mg PO Q6H PRN PRN Reason: PAIN Last Admin: 02/05/17 22:07 Dose: 325 mg Acetaminophen (Tylenol -) 650 mg PO Q6H PRN PRN Reason: PAIN Last Admin: 01/29/17 06:30 Dose: 650 mg Albuterol Sulfate (Ventolin 0.042trength) -) 1 amp NEB Q6HPO [facility] Last Admin: 02/06/17 11:22 Dose: 1 amp Bupropion HCl (Wellbutrin Xl -) 150 mg PO DAILY [facility] Last Admin: 02/06/17 09:03 Dose: 150 mg Diltiazem HCl (Cardizem Cd -) 300 mg PO DAILY [facility] Last Admin: 02/06/17 09:03 Dose: 300 mg Docusate Sodium (Colace -) 100 mg PO Q8H PRN PRN Reason: CONSTIPATION Fentanyl (Duragesic 12mcg Patch -) 1 patch TD Q72H [facility] Stop: 02/12/17 10:24 Last Admin: 02/05/17 10:55 Dose: 1 patch Furosemide (Lasix -) 40 mg PO BID@0600,1400 [facility] Last Admin: 02/06/17 06:26 Dose: 40 mg Glipizide (Glucotrol -) 5 mg PO DAILY@0700 [facility] Last Admin: 02/06/17 06:26 Dose: 5 mg Guaifenesin (Diabetic Tussin Dm -) 5 ml PO Q6H PRN PRN Reason: COUGH Last Admin: 02/04/17 09:25 Dose: 5 ml Insulin Aspart (Novolog Vial Sliding Scale -) 1 vial SQ ACHS [facility] PRN Reason: Protocol Last Admin: 02/06/17 11:21 Dose: Not Given Levothyroxine Sodium (Synthroid -) 75 mcg PO DAILY@0700 [facility] Last Admin: 02/06/17 06:27 Dose: 75 mcg Loratadine (Claritin -) 10 mg PO DAILY [facility] Last Admin: 02/06/17 09:03 Dose: 10 mg Metformin HCl (Glucophage -) 500 mg PO BIDAC [facility] Last Admin: 02/06/17 06:26 Dose: 500 mg Miscellaneous (Duragesic Patch Waste) 1 each TD PRN PRN PRN Reason: PAIN Last Admin: 01/31/17 02:15 Dose: 1 each Miscellaneous (Duragesic Patch Waste) 1 each TD PRN PRN PRN Reason: PAIN Stop: 02/12/17 10:22 Multi-Ingredient Lotion (Eucerin (Small Jar) -) 1 applic TP BID [facility] Last Admin: 02/05/17 21:23 Dose: 1 applic Olusj-3-Dtzu Ethyl Esters (Lovaza -) 1 gm PO BID [facility] Last Admin: 02/06/17 09:02 Dose: 1 gm Ondansetron HCl (Zofran Injection) 8 mg IVPB Q12H PRN PRN Reason: NAUSEA AND/OR VOMITING Last Admin: 02/02/17 09:10 Dose: 8 mg Potassium Chloride (K-Dur -) 20 meq PO DAILY [facility] Last Admin: 02/06/17 09:02 Dose: 20 meq Ranitidine HCl (Zantac -) 150 mg PO DAILY [facility] Last Admin: 02/06/17 09:02 Dose: 150 mg Senna (Senna -) 2 tab PO HS PRN PRN Reason: CONSTIPATION Last Admin: 01/29/17 21:09 Dose: 2 tab Tiotropium [place] (Spiriva -) 1 puff IH DAILY [facility] Last Admin: 02/06/17 10:05 Dose: 1 puff Tramadol HCl (Ultram -) 75 mg PO Q6H PRN PRN Reason: PAIN Warfarin Sodium (Coumadin -) 0.5 mg PO DAILY@1800 [facility] Last Admin: 02/05/17 17:57 Dose: Not Given - Objective Vital Signs: Vital Signs Temperature 97.7 F 02/06/17 05:40 Pulse Rate 79 02/06/17 05:40 Respiratory Rate 20 02/06/17 05:40 Blood Pressure 107/56 02/06/17 05:40 O2 Sat by Pulse Oximetry (%) 97 02/05/17 21:00 Constitutional: Yes: No Distress Cardiovascular: Yes: Pulse Irregular Respiratory: Yes: Diminished Gastrointestinal: Yes: Normal Bowel Sounds, Soft, Abdomen, Obese. No: Tenderness Edema: Yes (slight improvement ) Labs: CBC, BMP 02/06/17 06:00 02/06/17 06:00 INR, PTT INR 2.35 (0.82-1.09) H D 02/06/17 06:00 Problem List - Problems (1) A-fib Code(s): I48.91 - UNSPECIFIED ATRIAL FIBRILLATION Qualifiers: (2) Depression, major, severe recurrence Code(s): F33.2 - MAJOR DEPRESSV DISORDER, RECURRENT SEVERE W/O PSYCH FEATURES (3) Primary cancer of ovary with widespread metastatic disease Code(s): C56.9 - MALIGNANT NEOPLASM OF UNSPECIFIED OVARY C80.0 - DISSEMINATED MALIGNANT NEOPLASM, UNSPECIFIED (4) Metabolic encephalopathy Code(s): G93.41 - METABOLIC ENCEPHALOPATHY (5) Intractable back pain Code(s): M54.9 - DORSALGIA, UNSPECIFIED Assessment/Plan PLAN pt appears severely depressed-- on Remeron to help with appetite as well Pain control with Fetanyl patch and Tramadol as needed-- increase Tramadol to 75mg HCT better on lasix BID , monitor renal function fatigue maybe due to her overall cancer status , depression continue with meds Advance directives--- DNR/DNI INR therapeutic , may resume coumadin O 2 as needed, nebs as needed dc Novolog mix-- pt not eating well-- has low sugars
[2017-02-06] MEDS ORDERED: ONDANSETRON INJECTION 8 MG in SODIUM CHLORIDE 50 ML IVPUSH ONE (15:00)
[2017-02-06] MEDS ORDERED: DEXAMETHASONE INJECTION 12 MG in SODIUM CHLORIDE 50 ML IVPUSH ONE (15:00)
[2017-02-06] MEDS ORDERED: SODIUM CHLORIDE IV ONE (15:30)
[2017-02-06] MEDS ORDERED: GEMCITABINE HCL IV ONE (15:30)
--- NOTE | 2017-02-06 15:43 | PN ---
Progress Note (short form) - Note Progress Note: Patient seen and examined feels well Last Vital Signs Temp Pulse Resp BP Pulse Ox 97.3 F L 75 20 105/55 94 L 02/06/17 14:58 02/06/17 14:58 02/06/17 14:58 02/06/17 14:58 02/06/17 09:00 Cor: RSR, No murmurs, No gallops Lungs: decreased left base Abd: Soft, Normal bowel sounds, No organomegaly Ext:lymphedema Abnormal Lab Results 02/06/17 02/06/17 02/06/17 06:00 06:00 06:00 RBC 3.41 L MCV 96.7 H RDW 18.6 H PT with INR 26.50 H INR 2.35 H D Chloride 94 L Active Medications Generic Name Dose Route Start Last Admin Trade Name Freq PRN Reason Stop Dose Admin Acetaminophen 325 mg 01/24/17 09:32 02/05/17 22:07 Tylenol - PO 325 mg Q6H PRN Administration PAIN Acetaminophen 650 mg 01/24/17 09:33 01/29/17 06:30 Tylenol - PO 650 mg Q6H PRN Administration PAIN Albuterol Sulfate 1 amp 02/03/17 18:00 02/06/17 11:22 Ventolin 0.042trength) - NEB 1 amp Q6HPO [facility] Administration Bupropion HCl 150 mg 01/24/17 10:00 02/06/17 09:03 Wellbutrin Xl - PO 150 mg DAILY [facility] Administration Diltiazem HCl 300 mg 01/24/17 10:00 02/06/17 09:03 Cardizem Cd - PO 300 mg DAILY [facility] Administration Docusate Sodium 100 mg 02/05/17 10:23 Colace - PO Q8H PRN CONSTIPATION Fentanyl 1 patch 02/05/17 10:30 02/05/17 10:55 Duragesic 12mcg Patch - TD 02/12/17 10:24 1 patch Q72H [facility] Administration Furosemide 40 mg 02/05/17 14:00 02/06/17 13:41 Lasix - PO 40 mg BID@0600,1400 [facility] Administration Glipizide 5 mg 01/24/17 07:00 02/06/17 06:26 Glucotrol - PO 5 mg DAILY@0700 [facility] Administration Guaifenesin 5 ml 01/26/17 20:29 02/04/17 09:25 Diabetic Tussin Dm - PO 5 ml Q6H PRN Administration COUGH Gemcitabine HCl 1,500 mg/ 289.45 mls @ 578.9 mls/hr 02/06/17 15:30 Sodium Chloride IV 02/06/17 15:59 ONCE ONE Insulin Aspart 1 vial 01/24/17 16:45 02/06/17 11:21 Novolog Vial Sliding Scale - SQ Not Given ACHS [facility] Protocol Levothyroxine Sodium 75 mcg 01/24/17 07:00 02/06/17 06:27 Synthroid - PO 75 mcg DAILY@0700 [facility] Administration Loratadine 10 mg 01/24/17 10:00 02/06/17 09:03 Claritin - PO 10 mg DAILY [facility] Administration Metformin HCl 500 mg 01/24/17 07:00 02/06/17 06:26 Glucophage - PO 500 mg BIDAC [facility] Administration Mirtazapine 7.5 mg 02/06/17 22:00 Remeron - PO HS [facility] Miscellaneous 1 each 01/30/17 11:19 01/31/17 02:15 Duragesic Patch Waste TD 1 each PRN PRN Administration PAIN Miscellaneous 1 each 02/05/17 10:23 Duragesic Patch Waste TD 02/12/17 10:22 PRN PRN PAIN Multi-Ingredient Lotion 1 applic 01/25/17 22:00 02/05/17 21:23 Eucerin (Small Jar) - TP 1 applic BID [facility] Administration Vfwkq-2-Teze Ethyl Esters 1 gm 01/23/17 22:00 02/06/17 09:02 Lovaza - PO 1 gm BID [facility] Administration Ondansetron HCl 8 mg 01/23/17 12:21 02/02/17 09:10 Zofran Injection IVPB 8 mg Q12H PRN Administration NAUSEA AND/OR VOMITING Potassium Chloride 20 meq 02/03/17 12:15 02/06/17 09:02 K-Dur - PO 20 meq DAILY [facility] Administration Ranitidine HCl 150 mg 01/24/17 10:00 02/06/17 09:02 Zantac - PO 150 mg DAILY [facility] Administration Senna 2 tab 01/29/17 10:48 01/29/17 21:09 Senna - PO 2 tab HS PRN Administration CONSTIPATION Tiotropium [place] 1 puff 10/06/17 10:00 02/06/17 10:05 Spiriva - IH 1 puff DAILY [facility] Administration Tramadol HCl 75 mg 02/06/17 12:03 Ultram - PO Q6H PRN PAIN Warfarin Sodium 0.5 mg 02/02/17 18:00 02/05/17 17:57 Coumadin - PO Not Given DAILY@1800 [facility] A/P 61 y/o with metastatic high grade mullerian cancer, serous adenoca s/p carbo/taxol with stable disease, but most recently has been progressing with rising CA 125 and peritoneal implants on imaging. anemia related to chemotherapy transfuse 2units PRBCs pain control --on tramadol. on fentanyl 25 mcg Q 72hrs, diarrhea--hold miralax afib On coumadin---on hold due to INR of 4 discussed in great detail with patient and her daughter. rediscussed benefits/ risks of gemzar, side efects including myelosuppression, nbleeding, sepsis, vital organ damage. answered all questions. for gemzar today
[2017-02-06] MEDS ORDERED: WARFARIN NA 1 MG TABLET (FP) PO SCH (16:50)
[2017-02-06] MEDS ORDERED: SODIUM CHLORIDE 1,000 ML IV SCH (18:00)
[2017-02-06] MEDS: MINERAL OIL/PETROLAT/WATER TOPICAL CREAM 113 GM JAR TP SCH (21:29)
[2017-02-06] MEDS: MIRTAZAPINE 15 MG TABLET (FP) PO SCH ×2 (21:31→21:38)
[2017-02-07] MEDS: FUROSEMIDE 40 MG TABLET (FP) PO SCH ×2 (06:15→13:06)
[2017-02-07] MEDS: glipiZIDE 5 MG TABLET (FP) PO SCH (06:15)
[2017-02-07] MEDS: metFORMIN HCL 500 MG TABLET (FP) PO SCH ×2 (06:16→16:48)
[2017-02-07] MEDS: LEVOTHYROXINE NA 75 MCG TABLET (FP) PO SCH (06:16)
[2017-02-07] MEDS: ALBUTEROL SO4 0.042% IH SOL 1.25 MG/3 ML VIAL.NEB NEB SCH ×3 (06:35→17:27)
[2017-02-07] MEDS: INSULIN SLIDING SCALE (NOVOLOG) 1 VIAL SQ SCH ×4 (06:39→21:12)
[2017-02-07 08:23] LABS: INR 1.61 (0.82-1.09); PROTHROMBIN TIME (PATIENT) 18.2 SEC (9.98-11.88)
[2017-02-07 08:29] LABS: BASOPHIL 0.1 % (0-2.0); MCH 32.6 pg (25.7-33.7); MCHC 33.4 g/dl (32.0-36.0); MEAN CELL VOLUME 97.5 fl (80-96); MEAN PLT VOLUME 9.3 fl (7.5-11.1); PLATELET COUNT 178 K/MM3 (134-434); RDW 19.1 % (11.6-15.6); WHITE BLOOD COUNT 5.7 K/mm3 (4.0-10.0)
[2017-02-07 08:41] LABS: ALBUMIN 2.4 g/dl (3.4-5.0); ANION GAP 5 (8-16); BILIRUBIN,TOTAL 0.9 mg/dL (0.2-1.0); CO2 34 mmol/L (21-32); CREATININE 0.7 mg/dL (0.55-1.02); GLUCOSE,RANDOM 191 mg/dL (74-106); SGOT/AST 97 U/L (15-37); SGPT/ALT 52 U/L (12-78)
[2017-02-07 08:42] LABS: ALK PHOS 132 U/L (45-117); TOT PROT 6.6 g/dl (6.4-8.2)
[2017-02-07] MEDS ORDERED: PT OWN MED DRAWER 7, Y5N ONE ×3 (09:21→20:34)
[2017-02-07] MEDS: RANITIDINE HCL 150 MG TABLET (FP) PO SCH (09:22)
[2017-02-07] MEDS: LORATADINE 10 MG TABLET PO SCH (09:23)
[2017-02-07] MEDS: OMEGA-3 ACID ETHYL ESTERS (FATTY-ACIDS) 1 GM CAPSULE (FP) PO SCH ×2 (09:23→21:12)
[2017-02-07] MEDS: TIOTROPIUM BROMIDE 18 MCG/INH (DEVICE W/ 5 CAPSULES) IH SCH (09:23)
[2017-02-07] MEDS: POTASSIUM CHLORIDE TABS 20 MEQ TABLET.ER (FP) PO SCH (09:23)
[2017-02-07] MEDS: MINERAL OIL/PETROLAT/WATER TOPICAL CREAM 113 GM JAR TP SCH ×2 (09:23→21:12)
--- NOTE | 2017-02-07 09:26 | PN ---
Progress Note (short form) - Note Progress Note: Pt seen/examined chart reviewed pt sitting in chair comfortable mood is better tolerated chemo Vital Signs Temp 97.7 F 02/07/17 05:33 Pulse 86 02/07/17 05:33 Resp 20 02/07/17 05:33 BP 117/50 02/07/17 05:33 Pulse Ox 95 02/06/17 21:00 Intake & Output 02/06/17 02/06/17 02/07/17 11:59 23:59 11:59 Intake Total 240 575 Balance 240 575 Intake: IV 575 Normal Saline - 1,000 ml 575 @ 50 mls/hr IV ASDIR [facility] Rx#:[id number] Oral 240 Other: Voiding Method Toilet Toilet # Unmeasured Voids Void 1 Bowel Movement No Yes No # Bowel Movements 1 CBC, BMP 02/07/17 07:00 02/07/17 07:00 INR, PTT INR 1.61 (0.82-1.09) H D 02/07/17 07:00 Active Medications Acetaminophen (Tylenol -) 325 mg PO Q6H PRN PRN Reason: PAIN Last Admin: 02/05/17 22:07 Dose: 325 mg Acetaminophen (Tylenol -) 650 mg PO Q6H PRN PRN Reason: PAIN Last Admin: 01/29/17 06:30 Dose: 650 mg Albuterol Sulfate (Ventolin 0.042trength) -) 1 amp NEB Q6HPO [facility] Last Admin: 02/07/17 06:35 Dose: 1 amp Bupropion HCl (Wellbutrin Xl -) 150 mg PO DAILY [facility] Last Admin: 02/07/17 09:23 Dose: 150 mg Diltiazem HCl (Cardizem Cd -) 300 mg PO DAILY [facility] Last Admin: 02/07/17 09:23 Dose: 300 mg Docusate Sodium (Colace -) 100 mg PO Q8H PRN PRN Reason: CONSTIPATION Fentanyl (Duragesic 12mcg Patch -) 1 patch TD Q72H [facility] Stop: 02/12/17 10:24 Last Admin: 02/05/17 10:55 Dose: 1 patch Furosemide (Lasix -) 40 mg PO BID@0600,1400 [facility] Last Admin: 02/07/17 06:15 Dose: 40 mg Glipizide (Glucotrol -) 5 mg PO DAILY@0700 [facility] Last Admin: 02/07/17 06:15 Dose: 5 mg Guaifenesin (Diabetic Tussin Dm -) 5 ml PO Q6H PRN PRN Reason: COUGH Last Admin: 02/04/17 09:25 Dose: 5 ml Sodium Chloride (Normal Saline -) 1,000 mls @ 50 mls/hr IV [facility] Stop: 02/07/17 17:52 Last Admin: 02/06/17 18:42 Dose: 50 mls/hr Insulin Aspart (Novolog Vial Sliding Scale -) 1 vial SQ ACHS [facility] PRN Reason: Protocol Last Admin: 02/07/17 06:39 Dose: Not Given Levothyroxine Sodium (Synthroid -) 75 mcg PO DAILY@0700 [facility] Last Admin: 02/07/17 06:16 Dose: 75 mcg Loratadine (Claritin -) 10 mg PO DAILY [facility] Last Admin: 02/07/17 09:23 Dose: 10 mg Metformin HCl (Glucophage -) 500 mg PO BIDAC [facility] Last Admin: 02/07/17 06:16 Dose: 500 mg Mirtazapine (Remeron -) 7.5 mg PO HS [facility] Last Admin: 02/06/17 21:38 Dose: Not Given Miscellaneous (Duragesic Patch Waste) 1 each TD PRN PRN PRN Reason: PAIN Last Admin: 01/31/17 02:15 Dose: 1 each Miscellaneous (Duragesic Patch Waste) 1 each TD PRN PRN PRN Reason: PAIN Stop: 02/12/17 10:22 Multi-Ingredient Lotion (Eucerin (Small Jar) -) 1 applic TP BID [facility] Last Admin: 02/07/17 09:23 Dose: Not Given Teqji-4-Esav Ethyl Esters (Lovaza -) 1 gm PO BID [facility] Last Admin: 02/07/17 09:23 Dose: 1 gm Ondansetron HCl (Zofran Injection) 8 mg IVPB Q12H PRN PRN Reason: NAUSEA AND/OR VOMITING Last Admin: 02/02/17 09:10 Dose: 8 mg Potassium Chloride (K-Dur -) 20 meq PO DAILY [facility] Last Admin: 02/07/17 09:23 Dose: 20 meq Ranitidine HCl (Zantac -) 150 mg PO DAILY [facility] Last Admin: 02/07/17 09:22 Dose: 150 mg Senna (Senna -) 2 tab PO HS PRN PRN Reason: CONSTIPATION Last Admin: 01/29/17 21:09 Dose: 2 tab Tiotropium [place] (Spiriva -) 1 puff IH DAILY [facility] Last Admin: 02/07/17 09:23 Dose: 1 puff Tramadol HCl (Ultram -) 75 mg PO Q6H PRN PRN Reason: PAIN Warfarin Sodium (Coumadin -) 1 mg PO DAILY@1800 [facility] Last Admin: 02/06/17 17:14 Dose: 1 mg Warfarin Sodium (Coumadin -) 1 mg PO ONCE@1800 [facility] Stop: 02/07/17 18:01 Physical Exam Constitutional: Yes: No Distress Cardiovascular: Yes: Pulse Irregular Respiratory: Yes: Diminished Gastrointestinal: Yes: Normal Bowel Sounds, Soft, Abdomen, Obese. No: Tenderness Edema: Yes - trace Problem List - Problems (1) A-fib Code(s): I48.91 - UNSPECIFIED ATRIAL FIBRILLATION Qualifiers: (2) Depression, major, severe recurrence Code(s): F33.2 - MAJOR DEPRESSV DISORDER, RECURRENT SEVERE W/O PSYCH FEATURES (3) Primary cancer of ovary with widespread metastatic disease Code(s): C56.9 - MALIGNANT NEOPLASM OF UNSPECIFIED OVARY C80.0 - DISSEMINATED MALIGNANT NEOPLASM, UNSPECIFIED (4) Metabolic encephalopathy Code(s): G93.41 - METABOLIC ENCEPHALOPATHY (5) Intractable back pain Code(s): M54.9 - DORSALGIA, UNSPECIFIED Assessment/Plan clinically stable High grade Mullerian cancer overall condition - gaurded/poor extra coumadin today discussed with Psychologist [place] and Dr. Miller today will follow
--- NOTE | 2017-02-07 09:46 | PN ---
Progress Note (short form) - Note Progress Note: The patient was in a mildly depressed mood as she must be responding to the antidepressant medication in addition to the psychotherapeutic interventions. We used guided imagery, focused on visualizing pleasant scenes and the use of calming music. She was receptive and even smiled at one point. This patient is receptive to psychotherapeutic intervention.
--- NOTE | 2017-02-07 10:09 | PN ---
Progress Note (short form) - Note Progress Note: Patient seen and examined feels well Last Vital Signs Temp Pulse Resp BP Pulse Ox 97.7 F 86 20 117/50 95 02/07/17 05:33 02/07/17 05:33 02/07/17 05:33 02/07/17 05:33 02/06/17 21:00 Cor: RSR, No murmurs, No gallops Lungs: decreased left base Abd: Soft, Normal bowel sounds, No organomegaly Ext:lymphedema Abnormal Lab Results 02/03/17 02/07/17 02/07/17 15:10 07:00 07:00 RBC MCV RDW Neutrophils % Lymphocytes % PT with INR 18.20 H INR 1.61 H D Sodium 135 L Chloride 96 L Carbon Dioxide 34 H Anion Gap 5 L Random Glucose 191 H D AST 97 H Alkaline Phosphatase 132 H Albumin 2.4 L Crossmatch See Detail 02/07/17 07:00 RBC 3.44 L MCV 97.5 H RDW 19.1 H Neutrophils % 89.0 H Lymphocytes % 5.0 L D PT with INR INR Sodium Chloride Carbon Dioxide Anion Gap Random Glucose AST Alkaline Phosphatase Albumin Crossmatch Active Medications Generic Name Dose Route Start Last Admin Trade Name Freq PRN Reason Stop Dose Admin Acetaminophen 325 mg 01/24/17 09:32 02/05/17 22:07 Tylenol - PO 325 mg Q6H PRN Administration PAIN Acetaminophen 650 mg 01/24/17 09:33 01/29/17 06:30 Tylenol - PO 650 mg Q6H PRN Administration PAIN Albuterol Sulfate 1 amp 02/03/17 18:00 02/07/17 06:35 Ventolin 0.042trength) - NEB 1 amp Q6HPO [facility] Administration Bupropion HCl 150 mg 01/24/17 10:00 02/07/17 09:23 Wellbutrin Xl - PO 150 mg DAILY [facility] Administration Diltiazem HCl 300 mg 01/24/17 10:00 02/07/17 09:23 Cardizem Cd - PO 300 mg DAILY [facility] Administration Docusate Sodium 100 mg 02/05/17 10:23 Colace - PO Q8H PRN CONSTIPATION Fentanyl 1 patch 02/05/17 10:30 02/05/17 10:55 Duragesic 12mcg Patch - TD 02/12/17 10:24 1 patch Q72H [facility] Administration Furosemide 40 mg 02/05/17 14:00 02/07/17 06:15 Lasix - PO 40 mg BID@0600,1400 [facility] Administration Glipizide 5 mg 01/24/17 07:00 02/07/17 06:15 Glucotrol - PO 5 mg DAILY@0700 [facility] Administration Guaifenesin 5 ml 01/26/17 20:29 02/04/17 09:25 Diabetic Tussin Dm - PO 5 ml Q6H PRN Administration COUGH Sodium Chloride 1,000 mls @ 50 mls/hr 02/06/17 18:00 02/06/17 18:42 Normal Saline - IV 02/07/17 17:52 50 mls/hr ASDIR [facility] Administration Insulin Aspart 1 vial 01/24/17 16:45 02/07/17 06:39 Novolog Vial Sliding Scale - SQ Not Given ACHS [facility] Protocol Levothyroxine Sodium 75 mcg 01/24/17 07:00 02/07/17 06:16 Synthroid - PO 75 mcg DAILY@0700 [facility] Administration Loratadine 10 mg 01/24/17 10:00 02/07/17 09:23 Claritin - PO 10 mg DAILY [facility] Administration Metformin HCl 500 mg 01/24/17 07:00 02/07/17 06:16 Glucophage - PO 500 mg BIDAC [facility] Administration Mirtazapine 7.5 mg 02/06/17 22:00 02/06/17 21:38 Remeron - PO Not Given HS [facility] Miscellaneous 1 each 01/30/17 11:19 01/31/17 02:15 Duragesic Patch Waste TD 1 each PRN PRN Administration PAIN Miscellaneous 1 each 02/05/17 10:23 Duragesic Patch Waste TD 02/12/17 10:22 PRN PRN PAIN Multi-Ingredient Lotion 1 applic 01/25/17 22:00 02/07/17 09:23 Eucerin (Small Jar) - TP Not Given BID [facility] Lffax-5-Jkuf Ethyl Esters 1 gm 01/23/17 22:00 02/07/17 09:23 Lovaza - PO 1 gm BID [facility] Administration Ondansetron HCl 8 mg 01/23/17 12:21 02/02/17 09:10 Zofran Injection IVPB 8 mg Q12H PRN Administration NAUSEA AND/OR VOMITING Potassium Chloride 20 meq 10/16/17 12:15 02/07/17 09:23 K-Dur - PO 20 meq DAILY [facility] Administration Ranitidine HCl 150 mg 01/24/17 10:00 02/07/17 09:22 Zantac - PO 150 mg DAILY [facility] Administration Senna 2 tab 01/29/17 10:48 01/29/17 21:09 Senna - PO 2 tab HS PRN Administration CONSTIPATION Tiotropium [place] 1 puff 01/24/17 10:00 02/07/17 09:23 Spiriva - IH 1 puff DAILY [facility] Administration Tramadol HCl 75 mg 02/06/17 12:03 Ultram - PO Q6H PRN PAIN Warfarin Sodium 1 mg 02/06/17 16:50 02/06/17 17:14 Coumadin - PO 1 mg DAILY@1800 [facility] Administration Warfarin Sodium 1 mg 02/07/17 18:00 Coumadin - PO 02/07/17 18:01 ONCE@1800 [facility] A/P 61 y/o with metastatic high grade mullerian cancer, serous adenoca s/p carbo/taxol with stable disease, but most recently has been progressing with rising CA 125 and peritoneal implants on imaging. pain control --on tramadol. on fentanyl 12 mcg Q 72hrs, patient very sensitive to pain meds will switch to ultram 50-75 mg prn with tylenol afib On coumadin---will increase to 2.5mg daily monitor INR High grade mullerian cancer : switched to gemzar gentle hydration
[2017-02-07] MEDS ORDERED: traMADol HCL 50 MG TABLET PO PRN ×2 (10:30)
--- NOTE | 2017-02-07 10:54 | PN ---
Progress Note (short form) - Note Progress Note: PULMONARY OOB TO CHAIR GOING TO REHAB VSS/AFEBRILE PALE/ANICTERIC DISTANT BREATH SOUNDS S1S2 OBESE EDEMA LABS/MEDS/NOTES/IMAGING REVIEWED Metastatic High Grade Mullerian Cancer with Lung Mets Hemoptysis Atrial Fibrillation Depression HTN DM Hypothyroidism Morbid Obesity - empiric antibiotics completed - monitor hemoptysis - humidify oxygen - continue anticoagulation for now, keep INR 2-3 - rehab/PT Amy SULLIVAN MD
[2017-02-07] MEDS: ACETAMINOPHEN 325 MG TABLET (FP) PO PRN (13:06)
[2017-02-07] MEDS ORDERED: WARFARIN NA 2.5 MG TABLET (FP) PO SCH (18:00)
[2017-02-07] MEDS ORDERED: WARFARIN NA 1 MG TABLET (FP) PO ONE (18:00)
[2017-02-07] MEDS ORDERED: INSULIN (NOVOLOG) ASPART 100 UNITS/ML 10ML VIAL ONE (20:23)
[2017-02-07] MEDS: MIRTAZAPINE 15 MG TABLET (FP) PO SCH (21:12)
[2017-02-08] MEDS: ALBUTEROL SO4 0.042% IH SOL 1.25 MG/3 ML VIAL.NEB NEB SCH ×4 (00:05→17:38)
[2017-02-08] MEDS: glipiZIDE 5 MG TABLET (FP) PO SCH (06:08)
[2017-02-08] MEDS: INSULIN SLIDING SCALE (NOVOLOG) 1 VIAL SQ SCH ×4 (06:08→21:49)
[2017-02-08] MEDS: FUROSEMIDE 40 MG TABLET (FP) PO SCH ×2 (06:08→13:12)
[2017-02-08] MEDS: LEVOTHYROXINE NA 75 MCG TABLET (FP) PO SCH (06:08)
[2017-02-08] MEDS: metFORMIN HCL 500 MG TABLET (FP) PO SCH ×2 (06:08→16:37)
[2017-02-08] MEDS ORDERED: PT OWN MED DRAWER 7, Y5N ONE (06:41)
[2017-02-08 07:51] LABS: BASOPHIL 0.3 % (0-2.0); EOSINOPHIL 0.3 % (0-4.5); MCH 33.2 pg (25.7-33.7); MCHC 33.5 g/dl (32.0-36.0); MEAN CELL VOLUME 99.1 fl (80-96); MEAN PLT VOLUME 8.6 fl (7.5-11.1); NEUTROPHILS 81.4 % (42.8-82.8); PLATELET COUNT 196 K/MM3 (134-434); RDW 19.5 % (11.6-15.6); WHITE BLOOD COUNT 5.2 K/mm3 (4.0-10.0)
[2017-02-08 07:53] LABS: INR 1.6 (0.82-1.09); PROTHROMBIN TIME (PATIENT) 18.1 SEC (9.98-11.88)
[2017-02-08] MEDS: ACETAMINOPHEN 325 MG TABLET (FP) PO PRN ×2 (07:54→21:48)
[2017-02-08 07:56] LABS: ACTIVATED PTT 29.8 SECONDS (26.9-34.4)
[2017-02-08 08:09] LABS: ALBUMIN 2.4 g/dl (3.4-5.0); ALK PHOS 124 U/L (45-117); ANION GAP 7 (8-16); BILIRUBIN,TOTAL 0.7 mg/dL (0.2-1.0); CALCIUM 9.2 mg/dL (8.5-10.1); CO2 32 mmol/L (21-32); CREATININE 0.8 mg/dL (0.55-1.02); GLUCOSE,RANDOM 104 mg/dL (74-106); SGOT/AST 114 U/L (15-37); SGPT/ALT 56 U/L (12-78); TOT PROT 6.5 g/dl (6.4-8.2)
--- NOTE | 2017-02-08 10:30 | PN ---
Progress Note, Physician Chief Complaint: pain better controlled no comaplints of feeling tired she has dry cough no SOB tolerated 's chemotherapy - Current Medication List Current Medications: Active Medications Acetaminophen (Tylenol -) 650 mg PO Q6H PRN PRN Reason: PAIN Last Admin: 02/08/17 07:54 Dose: 650 mg Albuterol Sulfate (Ventolin 0.042trength) -) 1 amp NEB Q6HPO [facility] Last Admin: 02/08/17 06:50 Dose: 1 amp Bupropion HCl (Wellbutrin Xl -) 150 mg PO DAILY [facility] Last Admin: 02/07/17 09:23 Dose: 150 mg Diltiazem HCl (Cardizem Cd -) 300 mg PO DAILY [facility] Last Admin: 02/07/17 09:23 Dose: 300 mg Docusate Sodium (Colace -) 100 mg PO Q8H PRN PRN Reason: CONSTIPATION Fentanyl (Duragesic 12mcg Patch -) 1 patch TD Q72H [facility] Stop: 02/12/17 10:24 Last Admin: 02/05/17 10:55 Dose: 1 patch Furosemide (Lasix -) 40 mg PO BID@0600,1400 [facility] Last Admin: 02/08/17 06:08 Dose: 40 mg Glipizide (Glucotrol -) 5 mg PO DAILY@0700 [facility] Last Admin: 02/08/17 06:08 Dose: 5 mg Guaifenesin (Diabetic Tussin Dm -) 5 ml PO Q6H PRN PRN Reason: COUGH Last Admin: 02/04/17 09:25 Dose: 5 ml Insulin Aspart (Novolog Vial Sliding Scale -) 1 vial SQ ACHS [facility] PRN Reason: Protocol Last Admin: 02/08/17 06:08 Dose: Not Given Levothyroxine Sodium (Synthroid -) 75 mcg PO DAILY@0700 [facility] Last Admin: 02/08/17 06:08 Dose: 75 mcg Loratadine (Claritin -) 10 mg PO DAILY [facility] Last Admin: 02/07/17 09:23 Dose: 10 mg Metformin HCl (Glucophage -) 500 mg PO BIDAC [facility] Last Admin: 02/08/17 06:08 Dose: 500 mg Miscellaneous (Duragesic Patch Waste) 1 each TD PRN PRN PRN Reason: PAIN Last Admin: 01/31/17 02:15 Dose: 1 each Miscellaneous (Duragesic Patch Waste) 1 each TD PRN PRN PRN Reason: PAIN Stop: 02/12/17 10:22 Multi-Ingredient Lotion (Eucerin (Small Jar) -) 1 applic TP BID [facility] Last Admin: 02/07/17 21:12 Dose: Not Given Qarjl-6-Haxl Ethyl Esters (Lovaza -) 1 gm PO BID [facility] Last Admin: 02/07/17 21:12 Dose: 1 gm Ondansetron HCl (Zofran Injection) 8 mg IVPB Q12H PRN PRN Reason: NAUSEA AND/OR VOMITING Last Admin: 02/02/17 09:10 Dose: 8 mg Potassium Chloride (K-Dur -) 20 meq PO DAILY [facility] Last Admin: 02/07/17 09:23 Dose: 20 meq Ranitidine HCl (Zantac -) 150 mg PO DAILY [facility] Last Admin: 02/07/17 09:22 Dose: 150 mg Senna (Senna -) 2 tab PO HS PRN PRN Reason: CONSTIPATION Last Admin: 01/29/17 21:09 Dose: 2 tab Tiotropium [place] (Spiriva -) 1 puff IH DAILY [facility] Last Admin: 02/07/17 09:23 Dose: 1 puff Tramadol HCl (Ultram -) 75 mg PO Q6H PRN PRN Reason: PAIN Tramadol HCl (Ultram -) 50 mg PO Q6H PRN PRN Reason: PAIN Warfarin Sodium (Coumadin -) 2.5 mg PO DAILY@1800 [facility] Last Admin: 02/07/17 17:31 Dose: 2.5 mg Warfarin Sodium (Coumadin -) 5 mg PO ONCE@1800 [facility] Stop: 02/08/17 18:01 - Objective Vital Signs: Vital Signs Temperature 97.8 F 02/08/17 09:34 Pulse Rate 92 H 02/08/17 09:34 Respiratory Rate 16 02/08/17 09:34 Blood Pressure 109/62 02/08/17 09:34 O2 Sat by Pulse Oximetry (%) 97 02/07/17 21:00 Constitutional: Yes: No Distress, Calm Cardiovascular: Yes: Pulse Irregular Respiratory: Yes: Diminished Gastrointestinal: Yes: Normal Bowel Sounds, Soft, Abdomen, Obese. No: Tenderness Edema: Yes Labs: CBC, BMP 02/08/17 06:00 02/08/17 06:00 INR, PTT INR 1.60 (0.82-1.09) H 02/08/17 06:00 Problem List - Problems (1) A-fib Code(s): I48.91 - UNSPECIFIED ATRIAL FIBRILLATION Qualifiers: (2) Depression, major, severe recurrence Code(s): F33.2 - MAJOR DEPRESSV DISORDER, RECURRENT SEVERE W/O PSYCH FEATURES (3) Primary cancer of ovary with widespread metastatic disease Code(s): C56.9 - MALIGNANT NEOPLASM OF UNSPECIFIED OVARY C80.0 - DISSEMINATED MALIGNANT NEOPLASM, UNSPECIFIED (4) Metabolic encephalopathy Code(s): G93.41 - METABOLIC ENCEPHALOPATHY (5) Intractable back pain Code(s): M54.9 - DORSALGIA, UNSPECIFIED Assessment/Plan PLAN pt appears better Pain control with Fetanyl patch and Tramadol as needed- on lasix , monitor renal function -- stable on Lasix BID continue with meds O 2 as needed, nebs as needed
[2017-02-08] MEDS: fentaNYL 12mcg/hr PATCH.TD72 TD SCH (10:50)
[2017-02-08] MEDS: POTASSIUM CHLORIDE TABS 20 MEQ TABLET.ER (FP) PO SCH (10:50)
[2017-02-08] MEDS: LORATADINE 10 MG TABLET PO SCH (10:50)
[2017-02-08] MEDS: OMEGA-3 ACID ETHYL ESTERS (FATTY-ACIDS) 1 GM CAPSULE (FP) PO SCH ×2 (10:50→21:49)
[2017-02-08] MEDS: RANITIDINE HCL 150 MG TABLET (FP) PO SCH (10:50)
[2017-02-08] MEDS: TIOTROPIUM BROMIDE 18 MCG/INH (DEVICE W/ 5 CAPSULES) IH SCH (10:51)
[2017-02-08] MEDS: MINERAL OIL/PETROLAT/WATER TOPICAL CREAM 113 GM JAR TP SCH ×3 (11:03→21:49)
[2017-02-08] MEDS ORDERED: ALBUTEROL SO4 0.5 % INH SOLN 2.5 MG/0.5 ML VIAL.NEB. NEB ONE (11:17)
--- NOTE | 2017-02-08 12:20 | PN ---
Progress Note (short form) - Note Progress Note: Seen in follow up. Overall doing better. Pain improved, Meds reviewed. Current Medications Generic Name Dose Route Start Last Admin Trade Name Freq PRN Reason Stop Dose Admin Acetaminophen 650 mg 01/24/17 09:33 02/08/17 07:54 Tylenol - PO 650 mg Q6H PRN Administration PAIN Albuterol Sulfate 1 amp 02/03/17 18:00 02/08/17 12:00 Ventolin 0.042trength) - NEB 1 amp Q6HPO VIRGILIO Administration Bupropion HCl 150 mg 01/24/17 10:00 02/08/17 10:50 Wellbutrin Xl - PO 150 mg DAILY VIRGILIO Administration Diltiazem HCl 300 mg 01/24/17 10:00 02/08/17 10:51 Cardizem Cd - PO 300 mg DAILY VIRGILIO Administration Docusate Sodium 100 mg 02/05/17 10:23 Colace - PO Q8H PRN CONSTIPATION Fentanyl 1 patch 02/05/17 10:30 02/08/17 10:50 Duragesic 12mcg Patch - TD 02/12/17 10:24 1 patch Q72H VIRGILIO Administration Furosemide 40 mg 02/05/17 14:00 02/08/17 06:08 Lasix - PO 40 mg BID@0600,1400 VIRGILIO Administration Glipizide 5 mg 01/24/17 07:00 02/08/17 06:08 Glucotrol - PO 5 mg DAILY@0700 VIRGILIO Administration Guaifenesin 5 ml 01/26/17 20:29 02/04/17 09:25 Diabetic Tussin Dm - PO 5 ml Q6H PRN Administration COUGH Insulin Aspart 1 vial 01/24/17 16:45 02/08/17 11:29 Novolog Vial Sliding Scale - SQ Not Given ACHS VIRGILIO Protocol Levothyroxine Sodium 75 mcg 01/24/17 07:00 02/08/17 06:08 Synthroid - PO 75 mcg DAILY@0700 VIRGILIO Administration Loratadine 10 mg 01/24/17 10:00 02/08/17 10:50 Claritin - PO 10 mg DAILY VIRGILIO Administration Metformin HCl 500 mg 01/24/17 07:00 02/08/17 06:08 Glucophage - PO 500 mg BIDAC VIRGILIO Administration Miscellaneous 1 each 01/30/17 11:19 01/31/17 02:15 Duragesic Patch Waste TD 1 each PRN PRN Administration PAIN Miscellaneous 1 each 02/05/17 10:23 Duragesic Patch Waste TD 02/12/17 10:22 PRN PRN PAIN Multi-Ingredient Lotion 1 applic 01/25/17 22:00 02/08/17 11:17 Eucerin (Small Jar) - TP Not Given BID VIRGILIO Qalhi-2-Ibhp Ethyl Esters 1 gm 01/23/17 22:00 02/08/17 10:50 Lovaza - PO 1 gm BID VIRGILIO Administration Ondansetron HCl 8 mg 01/23/17 12:21 02/02/17 09:10 Zofran Injection IVPB 8 mg Q12H PRN Administration NAUSEA AND/OR VOMITING Potassium Chloride 20 meq 02/03/17 12:15 02/08/17 10:50 K-Dur - PO 20 meq DAILY VIRGILIO Administration Ranitidine HCl 150 mg 01/24/17 10:00 02/08/17 10:50 Zantac - PO 150 mg DAILY VIRGILIO Administration Senna 2 tab 01/29/17 10:48 01/29/17 21:09 Senna - PO 2 tab HS PRN Administration CONSTIPATION Tiotropium [place] 1 puff 01/24/17 10:00 02/08/17 10:51 Spiriva - IH 1 puff DAILY VIRGILIO Administration Tramadol HCl 75 mg 02/07/17 10:30 Ultram - PO Q6H PRN PAIN Tramadol HCl 50 mg 02/07/17 10:30 Ultram - PO Q6H PRN PAIN Warfarin Sodium 2.5 mg 02/07/17 18:00 02/07/17 17:31 Coumadin - PO 2.5 mg DAILY@1800 VIRGILIO Administration Warfarin Sodium 5 mg 02/08/17 18:00 Coumadin - PO 02/08/17 18:01 ONCE@1800 ONE On exam: Last Vital Signs Temp Pulse Resp BP Pulse Ox 97.8 F 73 16 109/62 100 02/08/17 09:34 02/08/17 12:01 02/08/17 09:34 02/08/17 09:34 02/08/17 12:01 General: Comfortable, sitting in chair, eating lunch.. Extremities: Pallor, no icterus. Chest:soft AE bilaterally, clear.. Abdomen: Soft, no organomegaly, no masses. Neuro: Alert, oriented, non-focal. CVS: Normal sinus rhythm, S1, S2, no gallop or murmur. Assessment. Metastatic high grade mullerian cancer, serous adenocarcinoma. Previously on carbo/taxol with stable disease, but recently progressing (rising CA 125 / peritoneal implants on imaging). Started gemcitabine 2 days ago - kartik sfar well tolerated. Pain controlled on current opioid regimen. INR suntherapeutic - coumadin uptitrated (AF)
[2017-02-08] MEDS ORDERED: WARFARIN NA 5 MG TABLET (UD) PO ONE (18:00)
[2017-02-09] MEDS: FUROSEMIDE 40 MG TABLET (FP) PO SCH ×2 (06:06→14:22)
[2017-02-09] MEDS: LEVOTHYROXINE NA 75 MCG TABLET (FP) PO SCH (06:06)
[2017-02-09] MEDS: metFORMIN HCL 500 MG TABLET (FP) PO SCH ×2 (06:06→16:45)
[2017-02-09] MEDS: INSULIN SLIDING SCALE (NOVOLOG) 1 VIAL SQ SCH ×4 (06:07→22:06)
[2017-02-09] MEDS: glipiZIDE 5 MG TABLET (FP) PO SCH (06:07)
[2017-02-09 07:46] LABS: ANION GAP 9 (8-16); CO2 32 mmol/L (21-32); CREATININE 0.6 mg/dL (0.55-1.02); GLUCOSE,RANDOM 122 mg/dL (74-106)
[2017-02-09 08:28] LABS: MCH 32.5 pg (25.7-33.7); MCHC 33.3 g/dl (32.0-36.0); MEAN CELL VOLUME 97.5 fl (80-96); MEAN PLT VOLUME 9.3 fl (7.5-11.1); PLATELET COUNT 187 K/MM3 (134-434); RDW 19.1 % (11.6-15.6); WHITE BLOOD COUNT 4.3 K/mm3 (4.0-10.0)
[2017-02-09 08:42] LABS: INR 2.04 (0.82-1.09)
[2017-02-09] MEDS: ACETAMINOPHEN 325 MG TABLET (FP) PO PRN (09:00)
--- NOTE | 2017-02-09 09:00 | PN ---
Progress Note, Physician Chief Complaint: feeling tired today no SOB some wheezing earlier this AM - Current Medication List Current Medications: Active Medications Acetaminophen (Tylenol -) 650 mg PO Q6H PRN PRN Reason: PAIN Last Admin: 02/08/17 21:48 Dose: 650 mg Bupropion HCl (Wellbutrin Xl -) 150 mg PO DAILY [facility] Last Admin: 02/08/17 10:50 Dose: 150 mg Diltiazem HCl (Cardizem Cd -) 300 mg PO DAILY [facility] Last Admin: 02/08/17 10:51 Dose: 300 mg Docusate Sodium (Colace -) 100 mg PO Q8H PRN PRN Reason: CONSTIPATION Fentanyl (Duragesic 12mcg Patch -) 1 patch TD Q72H [facility] Stop: 02/12/17 10:24 Last Admin: 02/08/17 10:50 Dose: 1 patch Furosemide (Lasix -) 40 mg PO BID@0600,1400 [facility] Last Admin: 02/09/17 06:06 Dose: 40 mg Glipizide (Glucotrol -) 5 mg PO DAILY@0700 [facility] Last Admin: 02/09/17 06:07 Dose: 5 mg Guaifenesin (Diabetic Tussin Dm -) 5 ml PO Q6H PRN PRN Reason: COUGH Last Admin: 02/04/17 09:25 Dose: 5 ml Insulin Aspart (Novolog Vial Sliding Scale -) 1 vial SQ ACHS [facility] PRN Reason: Protocol Last Admin: 02/09/17 06:07 Dose: Not Given Levothyroxine Sodium (Synthroid -) 75 mcg PO DAILY@0700 [facility] Last Admin: 02/09/17 06:06 Dose: 75 mcg Loratadine (Claritin -) 10 mg PO DAILY [facility] Last Admin: 02/08/17 10:50 Dose: 10 mg Metformin HCl (Glucophage -) 500 mg PO BIDAC [facility] Last Admin: 02/09/17 06:06 Dose: 500 mg Miscellaneous (Duragesic Patch Waste) 1 each TD PRN PRN PRN Reason: PAIN Last Admin: 01/31/17 02:15 Dose: 1 each Miscellaneous (Duragesic Patch Waste) 1 each TD PRN PRN PRN Reason: PAIN Stop: 02/12/17 10:22 Multi-Ingredient Lotion (Eucerin (Small Jar) -) 1 applic TP BID [facility] Last Admin: 02/08/17 21:49 Dose: Not Given Awzim-2-Mukf Ethyl Esters (Lovaza -) 1 gm PO BID [facility] Last Admin: 02/08/17 21:49 Dose: 1 gm Ondansetron HCl (Zofran Injection) 8 mg IVPB Q12H PRN PRN Reason: NAUSEA AND/OR VOMITING Last Admin: 02/02/17 09:10 Dose: 8 mg Potassium Chloride (K-Dur -) 20 meq PO DAILY [facility] Last Admin: 02/08/17 10:50 Dose: 20 meq Ranitidine HCl (Zantac -) 150 mg PO DAILY [facility] Last Admin: 02/08/17 10:50 Dose: 150 mg Senna (Senna -) 2 tab PO HS PRN PRN Reason: CONSTIPATION Last Admin: 01/29/17 21:09 Dose: 2 tab Tiotropium [place] (Spiriva -) 1 puff IH DAILY [facility] Last Admin: 02/08/17 10:51 Dose: 1 puff Tramadol HCl (Ultram -) 75 mg PO Q6H PRN PRN Reason: PAIN Tramadol HCl (Ultram -) 50 mg PO Q6H PRN PRN Reason: PAIN Warfarin Sodium (Coumadin -) 2.5 mg PO DAILY@1800 [facility] Last Admin: 02/07/17 17:31 Dose: 2.5 mg - Objective Vital Signs: Vital Signs Temperature 97.4 F L 02/09/17 05:39 Pulse Rate 102 H 02/09/17 05:39 Respiratory Rate 16 02/09/17 05:39 Blood Pressure 132/75 02/09/17 05:39 O2 Sat by Pulse Oximetry (%) 100 02/08/17 21:00 Constitutional: Yes: No Distress Cardiovascular: Yes: Pulse Irregular Respiratory: Yes: Diminished Gastrointestinal: Yes: Normal Bowel Sounds, Soft, Abdomen, Obese. No: Tenderness Edema: Yes Labs: CBC, BMP 02/09/17 06:00 02/09/17 06:00 INR, PTT INR 2.04 (0.82-1.09) H 02/09/17 06:00 Problem List - Problems (1) A-fib Code(s): I48.91 - UNSPECIFIED ATRIAL FIBRILLATION Qualifiers: (2) Depression, major, severe recurrence Code(s): F33.2 - MAJOR DEPRESSV DISORDER, RECURRENT SEVERE W/O PSYCH FEATURES (3) Primary cancer of ovary with widespread metastatic disease Code(s): C56.9 - MALIGNANT NEOPLASM OF UNSPECIFIED OVARY C80.0 - DISSEMINATED MALIGNANT NEOPLASM, UNSPECIFIED (4) Metabolic encephalopathy Code(s): G93.41 - METABOLIC ENCEPHALOPATHY (5) Intractable back pain Code(s): M54.9 - DORSALGIA, UNSPECIFIED Assessment/Plan PLAN pt feeling weak likley due to chemo she received on Pain control with Fetanyl patch and Tramadol as needed- on lasix , monitor renal function -- stable on Lasix BID continue with meds monitor CBC decrease Coumadin to 3 mg-- INR therapeutic now O 2 as needed, nebs as needed
[2017-02-09] MEDS: TIOTROPIUM BROMIDE 18 MCG/INH (DEVICE W/ 5 CAPSULES) IH SCH (09:55)
[2017-02-09] MEDS: OMEGA-3 ACID ETHYL ESTERS (FATTY-ACIDS) 1 GM CAPSULE (FP) PO SCH ×2 (09:55→22:05)
[2017-02-09] MEDS: POTASSIUM CHLORIDE TABS 20 MEQ TABLET.ER (FP) PO SCH (09:55)
[2017-02-09] MEDS: LORATADINE 10 MG TABLET PO SCH (09:55)
[2017-02-09] MEDS: RANITIDINE HCL 150 MG TABLET (FP) PO SCH (09:55)
[2017-02-09] MEDS: MINERAL OIL/PETROLAT/WATER TOPICAL CREAM 113 GM JAR TP SCH ×2 (09:56→22:05)
[2017-02-09] MEDS: LYTES/YERBA SANTA 240 ML BOTTLE MM SCH (10:48)
--- NOTE | 2017-02-09 11:19 | PN ---
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
--- NOTE | 2017-02-09 11:54 | PN ---
Progress Note (short form) - Note Progress Note: Seen in follow up. Stable symptomatically. Reports feeling mild dyspnea this morning. Meds reviewed. Current Medications Generic Name Dose Route Start Last Admin Trade Name Freq PRN Reason Stop Dose Admin Acetaminophen 650 mg 01/24/17 09:33 02/09/17 09:00 Tylenol - PO 650 mg Q6H PRN Administration PAIN Bupropion HCl 150 mg 01/24/17 10:00 02/09/17 09:55 Wellbutrin Xl - PO 150 mg DAILY VIRGILIO Administration Diltiazem HCl 300 mg 01/24/17 10:00 02/09/17 09:55 Cardizem Cd - PO 300 mg DAILY VIRGILIO Administration Docusate Sodium 100 mg 02/05/17 10:23 Colace - PO Q8H PRN CONSTIPATION Fentanyl 1 patch 02/05/17 10:30 02/08/17 10:50 Duragesic 12mcg Patch - TD 02/12/17 10:24 1 patch Q72H VIRGILIO Administration Furosemide 40 mg 02/05/17 14:00 02/09/17 06:06 Lasix - PO 40 mg BID@0600,1400 VIRGILIO Administration Glipizide 5 mg 01/24/17 07:00 02/09/17 06:07 Glucotrol - PO 5 mg DAILY@0700 VIRGILIO Administration Guaifenesin 5 ml 01/26/17 20:29 02/04/17 09:25 Diabetic Tussin Dm - PO 5 ml Q6H PRN Administration COUGH Insulin Aspart 1 vial 01/24/17 16:45 02/09/17 06:07 Novolog Vial Sliding Scale - SQ Not Given ACHS REPL[facility] BY [facility] Protocol Levothyroxine Sodium 75 mcg 01/24/17 07:00 02/09/17 06:06 Synthroid - PO 75 mcg DAILY@0700 VIRGILIO Administration Loratadine 10 mg 01/24/17 10:00 02/09/17 09:55 Claritin - PO 10 mg DAILY VIRGILIO Administration Metformin HCl 500 mg 01/24/17 07:00 02/09/17 06:06 Glucophage - PO 500 mg BIDAC VIRGILIO Administration Miscellaneous 1 each 01/30/17 11:19 01/31/17 02:15 Duragesic Patch Waste TD 1 each PRN PRN Administration PAIN Miscellaneous 1 each 02/05/17 10:23 Duragesic Patch Waste TD 02/12/17 10:22 PRN PRN PAIN Multi-Ingredient Lotion 1 applic 01/25/17 22:00 02/09/17 09:56 Eucerin (Small Jar) - TP 1 applic BID VIRGILIO Administration Srdhg-7-Jcjl Ethyl Esters 1 gm 01/23/17 22:00 02/09/17 09:55 Lovaza - PO 1 gm BID VIRGILIO Administration Ondansetron HCl 8 mg 01/23/17 12:21 02/02/17 09:10 Zofran Injection IVPB 8 mg Q12H PRN Administration NAUSEA AND/OR VOMITING Potassium Chloride 20 meq 02/03/17 12:15 02/09/17 09:55 K-Dur - PO 20 meq DAILY VIRGILIO Administration Ranitidine HCl 150 mg 01/24/17 10:00 02/09/17 09:55 Zantac - PO 150 mg DAILY VIRGILIO Administration Saliva Substitute 1 applic 02/09/17 10:00 02/09/17 10:48 Mouthkote Solution - MM 1 applic DAILY VIRGILIO Administration Senna 2 tab 01/29/17 10:48 01/29/17 21:09 Senna - PO 2 tab HS PRN Administration CONSTIPATION Tiotropium [place] 1 puff 01/24/17 10:00 02/09/17 09:55 Spiriva - IH 1 puff DAILY VIRGILIO Administration Tramadol HCl 75 mg 02/07/17 10:30 Ultram - PO Q6H PRN PAIN Tramadol HCl 50 mg 02/07/17 10:30 Ultram - PO Q6H PRN PAIN Warfarin Sodium 3 mg 02/09/17 18:00 Coumadin - PO DAILY@1800 VIRGILIO On exam: Last Vital Signs Temp Pulse Resp BP Pulse Ox 97.8 F 104 H 18 101/58 100 02/09/17 09:06 02/09/17 09:06 02/09/17 09:06 02/09/17 09:06 02/08/17 21:00 General: Comfortable, sitting in chair, eating lunch.. Extremities: Pallor, no icterus. Chest:soft AE bilaterally, clear.. Abdomen: Soft, no organomegaly, no masses. Neuro: Alert, oriented, non-focal. CVS: Normal sinus rhythm, S1, S2, no gallop or murmur. Assessment. Metastatic high grade mullerian cancer, serous adenocarcinoma. Previously on carbo/taxol with stable disease, but recently progressing (rising CA 125 / peritoneal implants on imaging). Started gemcitabine 2 days ago - kartik sfar well tolerated. Pain controlled on current opioid regimen. INR therapeutic today (AF)
[2017-02-09] MEDS: WARFARIN NA 3 MG TABLET PO SCH (17:56)
[2017-02-09] MEDS ORDERED: PT OWN MED DRAWER 7, Y5N ONE (21:44)
[2017-02-09] MEDS: guaiFENesin/D-M SUGAR-FREE/ACLHOL-FREE 118 ML BOTTLE PO PRN (22:07)
[2017-02-10] MEDS: LEVOTHYROXINE NA 75 MCG TABLET (FP) PO SCH (06:51)
[2017-02-10] MEDS: FUROSEMIDE 40 MG TABLET (FP) PO SCH ×2 (06:51→13:04)
[2017-02-10] MEDS: glipiZIDE 5 MG TABLET (FP) PO SCH (06:53)
[2017-02-10] MEDS: metFORMIN HCL 500 MG TABLET (FP) PO SCH ×2 (06:53→16:42)
[2017-02-10] MEDS: INSULIN SLIDING SCALE (NOVOLOG) 1 VIAL SQ SCH ×4 (06:53→21:02)
[2017-02-10] MEDS ORDERED: PT OWN MED DRAWER 7, Y5N ONE ×2 (07:03→09:48)
[2017-02-10 07:09] LABS: MCH 32.7 pg (25.7-33.7); MCHC 33.7 g/dl (32.0-36.0); PLATELET COUNT 227 K/MM3 (134-434); RDW 18.7 % (11.6-15.6); WHITE BLOOD COUNT 5.1 K/mm3 (4.0-10.0)
[2017-02-10 07:25] LABS: INR 2.47 (0.82-1.09); PROTHROMBIN TIME (PATIENT) 27.9 SEC (9.98-11.88)
[2017-02-10 07:31] LABS: ANION GAP 7 (8-16); CALCIUM 8.9 mg/dL (8.5-10.1); CO2 33 mmol/L (21-32); CREATININE 0.7 mg/dL (0.55-1.02); GLUCOSE,RANDOM 126 mg/dL (74-106)
--- NOTE | 2017-02-10 09:33 | PN ---
Progress Note (short form) - Note Progress Note: Pt seen/ examined. chart reviewed. sitting in bed chronic ill appearance. no distress c/c- pain left foot- blister mood stable Vital Signs Temp 97.7 F 02/10/17 05:40 Pulse 100 H 02/10/17 05:40 Resp 20 02/10/17 05:40 BP 121/63 02/10/17 05:40 Pulse Ox 96 02/09/17 21:00 Intake & Output 02/09/17 02/09/17 02/10/17 11:59 23:59 11:59 Intake Total 0 270 Balance 0 270 Intake: IVPB 0 Oral 0 270 Other: Voiding Method Toilet Toilet # Unmeasured Voids Void 2 2 Bowel Movement No No # Bowel Movements 1 Active Medications Acetaminophen (Tylenol -) 650 mg PO Q6H PRN PRN Reason: PAIN Last Admin: 02/09/17 09:00 Dose: 650 mg Albuterol Sulfate (Ventolin 0.083% Nebulizer Soln -) 1 amp NEB Q4H PRN PRN Reason: SHORT OF BREATH/WHEEZING Bupropion HCl (Wellbutrin Xl -) 150 mg PO DAILY [facility] Last Admin: 02/09/17 09:55 Dose: 150 mg Cephalexin HCl (Keflex -) 500 mg PO BID [facility] Diltiazem HCl (Cardizem Cd -) 300 mg PO DAILY [facility] Last Admin: 02/09/17 09:55 Dose: 300 mg Docusate Sodium (Colace -) 100 mg PO Q8H PRN PRN Reason: CONSTIPATION Fentanyl (Duragesic 12mcg Patch -) 1 patch TD Q72H [facility] Stop: 02/12/17 10:24 Last Admin: 02/08/17 10:50 Dose: 1 patch Furosemide (Lasix -) 40 mg PO BID@0600,1400 [facility] Last Admin: 02/10/17 06:51 Dose: 40 mg Glipizide (Glucotrol -) 5 mg PO DAILY@0700 [facility] Last Admin: 02/10/17 06:53 Dose: 5 mg Guaifenesin (Diabetic Tussin Dm -) 5 ml PO Q6H PRN PRN Reason: COUGH Last Admin: 02/09/17 22:07 Dose: 5 ml Insulin Aspart (Novolog Vial Sliding Scale -) 1 vial SQ ACHS [facility] PRN Reason: Protocol Last Admin: 02/10/17 06:53 Dose: Not Given Levothyroxine Sodium (Synthroid -) 75 mcg PO DAILY@0700 [facility] Last Admin: 02/10/17 06:51 Dose: 75 mcg Loratadine (Claritin -) 10 mg PO DAILY [facility] Last Admin: 02/09/17 09:55 Dose: 10 mg Metformin HCl (Glucophage -) 500 mg PO BIDAC [facility] Last Admin: 02/10/17 06:53 Dose: 500 mg Miscellaneous (Duragesic Patch Waste) 1 each TD PRN PRN PRN Reason: PAIN Last Admin: 01/31/17 02:15 Dose: 1 each Miscellaneous (Duragesic Patch Waste) 1 each TD PRN PRN PRN Reason: PAIN Stop: 02/12/17 10:22 Multi-Ingredient Lotion (Eucerin (Small Jar) -) 1 applic TP BID [facility] Last Admin: 02/09/17 22:05 Dose: 1 applic Iasjj-7-Arvo Ethyl Esters (Lovaza -) 1 gm PO BID [facility] Last Admin: 02/09/17 22:05 Dose: 1 gm Ondansetron HCl (Zofran Injection) 8 mg IVPB Q12H PRN PRN Reason: NAUSEA AND/OR VOMITING Last Admin: 02/02/17 09:10 Dose: 8 mg Potassium Chloride (K-Dur -) 20 meq PO DAILY [facility] Last Admin: 02/09/17 09:55 Dose: 20 meq Ranitidine HCl (Zantac -) 150 mg PO DAILY [facility] Last Admin: 02/09/17 09:55 Dose: 150 mg Saliva Substitute (Mouthkote Solution -) 1 applic MM DAILY [facility] Last Admin: 02/09/17 10:48 Dose: 1 applic Senna (Senna -) 2 tab PO HS PRN PRN Reason: CONSTIPATION Last Admin: 01/29/17 21:09 Dose: 2 tab Tiotropium [place] (Spiriva -) 1 puff IH DAILY [facility] Last Admin: 02/09/17 09:55 Dose: 1 puff Tramadol HCl (Ultram -) 75 mg PO Q6H PRN PRN Reason: PAIN Warfarin Sodium (Coumadin -) 3 mg PO DAILY@1800 [facility] Last Admin: 02/09/17 17:56 Dose: 3 mg CBC, BMP 02/10/17 06:00 02/10/17 06:00 INR, PTT INR 2.47 (0.82-1.09) H 02/10/17 06:00 Physical Exam. Constitutional: Yes: No Distress/ chronic ill appearance/ obese. Cardiovascular: Yes: Pulse Irregular Respiratory: Yes: Diminished- scattered rhonchi Gastrointestinal: Yes: Normal Bowel Sounds, Soft, Abdomen, Obese. No: Tenderness Edema: Yes left foot -- erythamatous area + - lateral border- slightly tender Problem List - Problems (1) A-fib Code(s): I48.91 - UNSPECIFIED ATRIAL FIBRILLATION Qualifiers: (2) Depression, major, severe recurrence Code(s): F33.2 - MAJOR DEPRESSV DISORDER, RECURRENT SEVERE W/O PSYCH FEATURES (3) Primary cancer of ovary with widespread metastatic disease Code(s): C56.9 - MALIGNANT NEOPLASM OF UNSPECIFIED OVARY C80.0 - DISSEMINATED MALIGNANT NEOPLASM, UNSPECIFIED (4) Metabolic encephalopathy Code(s): G93.41 - METABOLIC ENCEPHALOPATHY (5) Intractable back pain Code(s): M54.9 - DORSALGIA, UNSPECIFIED Assessment/Plan Advanced Mullerian ca . cellultis copd. obese deprrssion afib diabetes cellulitis Start on keflex pt is dabetic also- will ask podiatry to evaluate pain contorl will follow
[2017-02-10] MEDS: LORATADINE 10 MG TABLET PO SCH (09:56)
[2017-02-10] MEDS: CEPHALEXIN MONOHYDRATE 500 MG CAPSULE (UD) PO SCH ×4 (09:56→21:02)
[2017-02-10] MEDS: RANITIDINE HCL 150 MG TABLET (FP) PO SCH (09:56)
[2017-02-10] MEDS: MINERAL OIL/PETROLAT/WATER TOPICAL CREAM 113 GM JAR TP SCH ×2 (09:57→21:01)
[2017-02-10] MEDS: POTASSIUM CHLORIDE TABS 20 MEQ TABLET.ER (FP) PO SCH (09:57)
[2017-02-10] MEDS: OMEGA-3 ACID ETHYL ESTERS (FATTY-ACIDS) 1 GM CAPSULE (FP) PO SCH ×2 (09:57→21:01)
[2017-02-10] MEDS: LYTES/YERBA SANTA 240 ML BOTTLE MM SCH (09:57)
[2017-02-10] MEDS: TIOTROPIUM BROMIDE 18 MCG/INH (DEVICE W/ 5 CAPSULES) IH SCH (09:57)
[2017-02-10] MEDS ORDERED: VANCOMYCIN 1,000 MG in DEXTROSE 5%-WATER - 250 ML IVPB ONE (16:40)
--- NOTE | 2017-02-10 17:09 | PN ---
Progress Note, Physician History of Present Illness: pulmonary alert,oob-chair,-resp distress,-hemoptysis - Current Medication List Current Medications: Active Medications Acetaminophen (Tylenol -) 650 mg PO Q6H PRN PRN Reason: PAIN Last Admin: 02/09/17 09:00 Dose: 650 mg Albuterol Sulfate (Ventolin 0.083% Nebulizer Soln -) 1 amp NEB Q4H PRN PRN Reason: SHORT OF BREATH/WHEEZING Bupropion HCl (Wellbutrin Xl -) 150 mg PO DAILY [facility] Last Admin: 02/10/17 09:57 Dose: 150 mg Cephalexin HCl (Keflex -) 500 mg PO QID [facility] Last Admin: 02/10/17 13:05 Dose: 500 mg Diltiazem HCl (Cardizem Cd -) 300 mg PO DAILY [facility] Last Admin: 02/10/17 09:57 Dose: 300 mg Docusate Sodium (Colace -) 100 mg PO Q8H PRN PRN Reason: CONSTIPATION Fentanyl (Duragesic 12mcg Patch -) 1 patch TD Q72H [facility] Stop: 02/12/17 10:24 Last Admin: 02/08/17 10:50 Dose: 1 patch Furosemide (Lasix -) 40 mg PO BID@0600,1400 [facility] Last Admin: 02/10/17 13:04 Dose: 40 mg Glipizide (Glucotrol -) 5 mg PO DAILY@0700 [facility] Last Admin: 02/10/17 06:53 Dose: 5 mg Guaifenesin (Diabetic Tussin Dm -) 5 ml PO Q6H PRN PRN Reason: COUGH Last Admin: 02/09/17 22:07 Dose: 5 ml Vancomycin HCl 1,000 mg/ (Dextrose) 250 mls @ 166.667 mls/hr IVPB ONCE ONE PRN Reason: Protocol Stop: 02/10/17 18:09 Insulin Aspart (Novolog Vial Sliding Scale -) 1 vial SQ ACHS [facility] PRN Reason: Protocol Last Admin: 02/10/17 16:42 Dose: Not Given Levothyroxine Sodium (Synthroid -) 75 mcg PO DAILY@0700 [facility] Last Admin: 02/10/17 06:51 Dose: 75 mcg Loratadine (Claritin -) 10 mg PO DAILY [facility] Last Admin: 02/10/17 09:56 Dose: 10 mg Metformin HCl (Glucophage -) 500 mg PO BIDAC [facility] Last Admin: 02/10/17 16:42 Dose: 500 mg Miscellaneous (Duragesic Patch Waste) 1 each TD PRN PRN PRN Reason: PAIN Last Admin: 01/31/17 02:15 Dose: 1 each Miscellaneous (Duragesic Patch Waste) 1 each TD PRN PRN PRN Reason: PAIN Stop: 02/12/17 10:22 Multi-Ingredient Lotion (Eucerin (Small Jar) -) 1 applic TP BID [facility] Last Admin: 02/10/17 09:57 Dose: Not Given Imhgh-9-Ropv Ethyl Esters (Lovaza -) 1 gm PO BID [facility] Last Admin: 02/10/17 09:57 Dose: 1 gm Ondansetron HCl (Zofran Injection) 8 mg IVPB Q12H PRN PRN Reason: NAUSEA AND/OR VOMITING Last Admin: 02/02/17 09:10 Dose: 8 mg Potassium Chloride (K-Dur -) 20 meq PO DAILY [facility] Last Admin: 02/10/17 09:57 Dose: 20 meq Ranitidine HCl (Zantac -) 150 mg PO DAILY [facility] Last Admin: 02/10/17 09:56 Dose: 150 mg Saliva Substitute (Mouthkote Solution -) 1 applic MM DAILY [facility] Last Admin: 02/10/17 09:57 Dose: 1 applic Senna (Senna -) 2 tab PO HS PRN PRN Reason: CONSTIPATION Last Admin: 01/29/17 21:09 Dose: 2 tab Tiotropium [place] (Spiriva -) 1 puff IH DAILY [facility] Last Admin: 02/10/17 09:57 Dose: 1 puff Tramadol HCl (Ultram -) 75 mg PO Q6H PRN PRN Reason: PAIN Warfarin Sodium (Coumadin -) 3 mg PO DAILY@1800 [facility] Last Admin: 02/09/17 17:56 Dose: 3 mg - Objective Vital Signs: Vital Signs Temperature 98.1 F 02/10/17 13:47 Pulse Rate 98 H 02/10/17 13:47 Respiratory Rate 18 02/10/17 13:47 Blood Pressure 115/60 02/10/17 13:47 O2 Sat by Pulse Oximetry (%) 97 02/10/17 09:00 Constitutional: Yes: Well Nourished, Calm Eyes: Yes: WNL HENT: Yes: WNL Neck: Yes: WNL Cardiovascular: Yes: Pulse Irregular, S1, S2 Respiratory: Yes: Diminished Gastrointestinal: Yes: Normal Bowel Sounds, Soft Extremities: Yes: WNL Edema: Yes Labs: CBC, BMP 02/10/17 06:00 02/10/17 06:00 INR, PTT INR 2.47 (0.82-1.09) H 02/10/17 06:00 Problem List - Problems (1) Hypothyroid Code(s): E03.9 - HYPOTHYROIDISM, UNSPECIFIED (2) Lymphedema Code(s): I89.0 - LYMPHEDEMA, NOT ELSEWHERE CLASSIFIED (3) Anemia Code(s): D64.9 - ANEMIA, UNSPECIFIED (4) Anxiety and depression Code(s): F41.9 - ANXIETY DISORDER, UNSPECIFIED F32.9 - MAJOR DEPRESSIVE DISORDER, SINGLE EPISODE, UNSPECIFIED (5) Cancer of ovary Code(s): C56.9 - MALIGNANT NEOPLASM OF UNSPECIFIED OVARY Qualifiers: (6) Diabetes Code(s): E11.9 - TYPE 2 DIABETES MELLITUS WITHOUT COMPLICATIONS Qualifiers: Diabetes mellitus type: type 2 Diabetes mellitus complication status: without complication (7) HTN (hypertension) Code(s): I10 - ESSENTIAL (PRIMARY) HYPERTENSION Qualifiers: (8) Morbidly obese Code(s): E66.01 - MORBID (SEVERE) OBESITY DUE TO EXCESS CALORIES (9) Primary cancer of ovary with widespread metastatic disease Code(s): C56.9 - MALIGNANT NEOPLASM OF UNSPECIFIED OVARY C80.0 - DISSEMINATED MALIGNANT NEOPLASM, UNSPECIFIED (10) Pulmonary nodules/lesions, multiple Code(s): R91.8 - OTHER NONSPECIFIC ABNORMAL FINDING OF LUNG FIELD (11) A-fib Code(s): I48.91 - UNSPECIFIED ATRIAL FIBRILLATION Qualifiers: (12) Hemoptysis Code(s): R04.2 - HEMOPTYSIS Assessment/Plan A/P 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
[2017-02-10] MEDS: WARFARIN NA 3 MG TABLET PO SCH (17:14)
[2017-02-10] MEDS: ACETAMINOPHEN 325 MG TABLET (FP) PO PRN (21:03)
[2017-02-10] MEDS: guaiFENesin/D-M SUGAR-FREE/ACLHOL-FREE 118 ML BOTTLE PO PRN (21:05)
[2017-02-10] MEDS: ALBUTEROL SO4 0.083% IH SOL 2.5 MG/3 ML VIAL.NEB. NEB PRN (21:25)
--- NOTE | 2017-02-10 21:41 | PN ---
Progress Note (short form) - Note Progress Note: Patient seen and examined Lt. foot pain/swelling AFVSS Cor: RSR, No murmurs, No gallops Lungs: decreased left base Abd: Soft, Normal bowel sounds, No organomegaly Ext:lymphedema Labs/meds reviewed A/P 61 y/o with metastatic high grade mullerian cancer, serous adenoca s/p carbo/taxol with stable disease, but most recently has been progressing with rising CA 125 and peritoneal implants on imaging. pain control --on tramadol. on fentanyl 12 mcg Q 72hrs, afib On coumadin- monitor INR High grade mullerian cancer : on gemzar Lt. foot cellulitis---check blood cx discussed with ID team add vancomycin
[2017-02-11] MEDS: glipiZIDE 5 MG TABLET (FP) PO SCH (06:02)
[2017-02-11] MEDS: metFORMIN HCL 500 MG TABLET (FP) PO SCH ×2 (06:02→16:48)
[2017-02-11] MEDS: FUROSEMIDE 40 MG TABLET (FP) PO SCH (06:02)
[2017-02-11] MEDS: LEVOTHYROXINE NA 75 MCG TABLET (FP) PO SCH (06:02)
[2017-02-11] MEDS: INSULIN SLIDING SCALE (NOVOLOG) 1 VIAL SQ SCH ×4 (06:02→22:18)
[2017-02-11 07:33] LABS: BASOPHIL 0.6 % (0-2.0); EOSINOPHIL 0.4 % (0-4.5); MCH 33.2 pg (25.7-33.7); MCHC 34.7 g/dl (32.0-36.0); MEAN CELL VOLUME 95.8 fl (80-96); MEAN PLT VOLUME 8.7 fl (7.5-11.1); NEUTROPHILS 85.8 % (42.8-82.8); PLATELET COUNT 239 K/MM3 (134-434); RDW 18.3 % (11.6-15.6); WHITE BLOOD COUNT 4.4 K/mm3 (4.0-10.0)
[2017-02-11 07:41] LABS: INR 2.35 (0.82-1.09); PROTHROMBIN TIME (PATIENT) 26.6 SEC (9.98-11.88)
[2017-02-11 07:57] LABS: ALBUMIN 2.5 g/dl (3.4-5.0); ANION GAP 11 (8-16); BILIRUBIN,TOTAL 0.9 mg/dL (0.2-1.0); CALCIUM 8.8 mg/dL (8.5-10.1); CO2 30 mmol/L (21-32); CREATININE 0.6 mg/dL (0.55-1.02); GLUCOSE,RANDOM 127 mg/dL (74-106); SGOT/AST 117 U/L (15-37); SGPT/ALT 74 U/L (12-78); TOT PROT 6.7 g/dl (6.4-8.2)
[2017-02-11 07:58] LABS: ALK PHOS 136 U/L (45-117)
[2017-02-11] MEDS ORDERED: PT OWN MED DRAWER 7, Y5N ONE ×2 (09:03→13:22)
[2017-02-11] MEDS: LORATADINE 10 MG TABLET PO SCH (09:16)
[2017-02-11] MEDS: OMEGA-3 ACID ETHYL ESTERS (FATTY-ACIDS) 1 GM CAPSULE (FP) PO SCH ×2 (09:16→22:18)
[2017-02-11] MEDS: LYTES/YERBA SANTA 240 ML BOTTLE MM SCH (09:16)
[2017-02-11] MEDS: RANITIDINE HCL 150 MG TABLET (FP) PO SCH (09:16)
[2017-02-11] MEDS: TIOTROPIUM BROMIDE 18 MCG/INH (DEVICE W/ 5 CAPSULES) IH SCH (09:16)
[2017-02-11] MEDS: POTASSIUM CHLORIDE TABS 20 MEQ TABLET.ER (FP) PO SCH (09:16)
[2017-02-11] MEDS: MINERAL OIL/PETROLAT/WATER TOPICAL CREAM 113 GM JAR TP SCH ×2 (09:17→22:18)
[2017-02-11] MEDS: ACETAMINOPHEN 325 MG TABLET (FP) PO PRN ×2 (09:33→22:25)
[2017-02-11] MEDS: fentaNYL 12mcg/hr PATCH.TD72 TD SCH (09:34)
--- NOTE | 2017-02-11 10:53 | PN ---
Progress Note (short form) - Note Progress Note: The patient was in a relatively euthymic mood. Her pain level was a 9 prior to the intervention. Hypnotic imagery was employed. Her pain level reduced to a 6- 7. She also reported that she felt more relaxed. The patient was concerned that she was not seen by a nurse's assistant for her foot. In summary, the patient became more relaxed from the intervention. She also benefits from the opportunity to vent her feelings. In addition to analgesics, hypnosis reduced her pain. The patient was recommended to practice guided imagery similar to the one taught to her today as often as she can. The patient was instructed to breath normally and avoid diaphragmatic breathing during the practice due to her blood pressure readings.
--- NOTE | 2017-02-11 11:48 | PN ---
Progress Note, Physician Chief Complaint: eventa noted left foot redness has a swelling at left lateral foot pt admits to walking barefoot - Current Medication List Current Medications: Active Medications Acetaminophen (Tylenol -) 650 mg PO Q6H PRN PRN Reason: PAIN Last Admin: 02/11/17 09:33 Dose: 650 mg Albuterol Sulfate (Ventolin 0.083% Nebulizer Soln -) 1 amp NEB Q4H PRN PRN Reason: SHORT OF BREATH/WHEEZING Last Admin: 02/10/17 21:25 Dose: 1 amp Bupropion HCl (Wellbutrin Xl -) 150 mg PO DAILY [facility] Last Admin: 02/11/17 09:16 Dose: 150 mg Diltiazem HCl (Cardizem Cd -) 300 mg PO DAILY [facility] Last Admin: 02/11/17 09:17 Dose: 300 mg Docusate Sodium (Colace -) 100 mg PO Q8H PRN PRN Reason: CONSTIPATION Fentanyl (Duragesic 12mcg Patch -) 1 patch TD Q72H [facility] Stop: 02/12/17 10:24 Last Admin: 02/11/17 09:34 Dose: 1 patch Furosemide (Lasix -) 40 mg PO BID@0600,1400 [facility] Last Admin: 02/11/17 06:02 Dose: 40 mg Glipizide (Glucotrol -) 5 mg PO DAILY@0700 [facility] Last Admin: 02/11/17 06:02 Dose: 5 mg Guaifenesin (Diabetic Tussin Dm -) 5 ml PO Q6H PRN PRN Reason: COUGH Last Admin: 02/10/17 21:05 Dose: 5 ml Vancomycin HCl 1,500 mg/ (Dextrose) 250 mls @ 250 mls/hr IVPB Q12H [facility] PRN Reason: Protocol Insulin Aspart (Novolog Vial Sliding Scale -) 1 vial SQ ACHS [facility] PRN Reason: Protocol Last Admin: 02/11/17 06:02 Dose: Not Given Levothyroxine Sodium (Synthroid -) 75 mcg PO DAILY@0700 [facility] Last Admin: 02/11/17 06:02 Dose: 75 mcg Loratadine (Claritin -) 10 mg PO DAILY [facility] Last Admin: 02/11/17 09:16 Dose: 10 mg Metformin HCl (Glucophage -) 500 mg PO BIDAC [facility] Last Admin: 02/11/17 06:02 Dose: 500 mg Miscellaneous (Duragesic Patch Waste) 1 each TD PRN PRN PRN Reason: PAIN Last Admin: 01/31/17 02:15 Dose: 1 each Miscellaneous (Duragesic Patch Waste) 1 each TD PRN PRN PRN Reason: PAIN Stop: 02/12/17 10:22 Multi-Ingredient Lotion (Eucerin (Small Jar) -) 1 applic TP BID [facility] Last Admin: 02/11/17 09:17 Dose: Not Given Fjvzm-4-[id number] Ethyl Esters (Lovaza -) 1 gm PO BID [facility] Last Admin: 02/11/17 09:16 Dose: 1 gm Ondansetron HCl (Zofran Injection) 8 mg IVPB Q12H PRN PRN Reason: NAUSEA AND/OR VOMITING Last Admin: 02/02/17 09:10 Dose: 8 mg Piperacillin/Tazobactam/Dextrose (Zosyn 4.5gm Ivpb (Premix)) 4.5 gm IVPB Q8H- IV [facility] Potassium Chloride (K-Dur -) 20 meq PO DAILY [facility] Last Admin: 02/11/17 09:16 Dose: 20 meq Ranitidine HCl (Zantac -) 150 mg PO DAILY [facility] Last Admin: 02/11/17 09:16 Dose: 150 mg Saliva Substitute (Mouthkote Solution -) 1 applic MM DAILY [facility] Last Admin: 02/11/17 09:16 Dose: 1 applic Senna (Senna -) 2 tab PO HS PRN PRN Reason: CONSTIPATION Last Admin: 01/29/17 21:09 Dose: 2 tab Tiotropium [place] (Spiriva -) 1 puff IH DAILY [facility] Last Admin: 02/11/17 09:16 Dose: 1 puff Tramadol HCl (Ultram -) 75 mg PO Q6H PRN PRN Reason: PAIN Warfarin Sodium (Coumadin -) 3 mg PO DAILY@1800 [facility] Last Admin: 02/10/17 17:14 Dose: 3 mg - Objective Vital Signs: Vital Signs Temperature 98.0 F 02/11/17 09:00 Pulse Rate 84 02/11/17 11:20 Respiratory Rate 20 02/11/17 09:00 Blood Pressure 112/55 02/11/17 09:00 O2 Sat by Pulse Oximetry (%) 97 02/11/17 11:20 Constitutional: Yes: No Distress Cardiovascular: Yes: Pulse Irregular Respiratory: Yes: Diminished Gastrointestinal: Yes: Normal Bowel Sounds, Soft, Abdomen, Obese. No: Distention, Tenderness Extremities: Yes: Other (left foot dorsum-- erythematous, tender, warm boil see on lateral side oa left foot) Edema: Yes Labs: CBC, BMP 02/11/17 06:50 02/11/17 06:50 INR, PTT INR 2.35 (0.82-1.09) H 02/11/17 06:50 Problem List - Problems (1) A-fib Code(s): I48.91 - UNSPECIFIED ATRIAL FIBRILLATION Qualifiers: (2) Depression, major, severe recurrence Code(s): F33.2 - MAJOR DEPRESSV DISORDER, RECURRENT SEVERE W/O PSYCH FEATURES (3) Primary cancer of ovary with widespread metastatic disease Code(s): C56.9 - MALIGNANT NEOPLASM OF UNSPECIFIED OVARY C80.0 - DISSEMINATED MALIGNANT NEOPLASM, UNSPECIFIED (4) Metabolic encephalopathy Code(s): G93.41 - METABOLIC ENCEPHALOPATHY (5) Intractable back pain Code(s): M54.9 - DORSALGIA, UNSPECIFIED Assessment/Plan PLAN pt feeling weak likley due to chemo she received on Pain control with Fetanyl patch and Tramadol as needed- on lasix , monitor renal function -- stable on Lasix BID -- change to IV lasix podiatry evaluation Noted ID folllo up-- now on antibiotics continue with meds monitor CBC decrease Coumadin to 3 mg-- INR therapeutic now O 2 as needed, nebs as needed
--- NOTE | 2017-02-11 11:56 | PN ---
Teaching Attending Note Name of Resident: Daniel Doan ATTENDING PHYSICIAN STATEMENT I saw and evaluated the patient. I reviewed the resident's note and discussed the case with the resident. I agree with the resident's findings and plan as documented. SUBJECTIVE: 24 to 48 hour history of left foot erythema she walks barefoot in her room! no fevers received vancomycin yesterday chronic cough OBJECTIVE: obese Vital Signs Period Temp Pulse Resp BP Sys/Dinero Pulse Ox Last 24 Hr 98 F-98.7 F 84-98 18-20 100-115/51-60 97-97 cor-rrr lungs clear abd soft, nt ext left foot with erythema of the forefoot and blister outer aspect of foot CBC, BMP 02/11/17 06:50 02/11/17 06:50 foot xray no osteo or air Microbiology 01/29/17 06:30 Sputum - Expectorated Gram Stain - Final 01/29/17 06:30 Sputum - Expectorated Sputum Culture - Final Beta Hem Streptococcus Group F Mr S Aureus 01/27/17 20:00 Blood - Neeta Cath Blood Culture - Final NO GROWTH AFTER 5 DAYS INCUBATION 01/27/17 15:30 Blood - Neeta Cath Blood Culture - Final NO GROWTH AFTER 5 DAYS INCUBATION 01/27/17 15:30 Blood - Peripheral Venous Blood Culture - Final NO GROWTH AFTER 5 DAYS INCUBATION 01/27/17 19:45 Urine - Urine Clean Catch Urine Culture - Final NO GROWTH OBTAINED blood cultures pending ASSESSMENT AND PLAN: cellulitis of the left foot MRSA in sputum s/p chemo metastatic cancer obesity NIDDM await podiatry eval vancomycin adjusted for weight zosyn (empiric) recent cefepime 01/28 to 02/03 isolation for MRSA
[2017-02-11] MEDS ORDERED: PIPERACILLIN/TAZOB 4.5 GM/100 ML PREMIX BAG IVPB SCH (12:00)
[2017-02-11] MEDS: PIPERACILLIN/TAZOB 4.5 GM 100 ML IVPB SCH ×2 (12:38→17:10)
[2017-02-11] MEDS: FUROSEMIDE 40 MG/4 ML INJECTABLE VIAL IVPUSH SCH (13:25)
[2017-02-11] MEDS: VANCOMYCIN 1,500 MG in DEXTROSE 5%-WATER - 500 ML IVPB SCH (13:25)
--- NOTE | 2017-02-11 13:51 | PN ---
Progress Note (short form) - Note Progress Note: No change in dry cough. Generalized weakness and fatigue. Noted new cellulitis of her left foot Intake & Output 02/08/17 02/09/17 02/10/17 02/11/17 23:59 23:59 23:59 23:59 Intake Total 520 270 670 237 Balance 520 270 670 237 Last Vital Signs Temp Pulse Resp BP Pulse Ox 98.0 F 84 20 112/55 97 02/11/17 09:00 02/11/17 11:20 02/11/17 09:00 02/11/17 09:00 02/11/17 11:20 Active Medications Acetaminophen (Tylenol -) 650 mg PO Q6H PRN PRN Reason: PAIN Last Admin: 02/11/17 09:33 Dose: 650 mg Albuterol Sulfate (Ventolin 0.083% Nebulizer Soln -) 1 amp NEB Q4H PRN PRN Reason: SHORT OF BREATH/WHEEZING Last Admin: 02/10/17 21:25 Dose: 1 amp Bupropion HCl (Wellbutrin Xl -) 150 mg PO DAILY [facility] Last Admin: 02/11/17 09:16 Dose: 150 mg Diltiazem HCl (Cardizem Cd -) 300 mg PO DAILY [facility] Last Admin: 02/11/17 09:17 Dose: 300 mg Docusate Sodium (Colace -) 100 mg PO Q8H PRN PRN Reason: CONSTIPATION Fentanyl (Duragesic 12mcg Patch -) 1 patch TD Q72H [facility] Stop: 02/12/17 10:24 Last Admin: 02/11/17 09:34 Dose: 1 patch Furosemide (Lasix Injection -) 40 mg IVPUSH BID@0600,1400 [facility] Last Admin: 02/11/17 13:25 Dose: 40 mg Glipizide (Glucotrol -) 5 mg PO DAILY@0700 [facility] Last Admin: 02/11/17 06:02 Dose: 5 mg Guaifenesin (Diabetic Tussin Dm -) 5 ml PO Q6H PRN PRN Reason: COUGH Last Admin: 02/10/17 21:05 Dose: 5 ml Vancomycin HCl 1,500 mg/ (Dextrose) 500 mls @ 250 mls/hr IVPB BID@0100,1300 [facility] PRN Reason: Protocol Last Admin: 02/11/17 13:25 Dose: 250 mls/hr Piperacillin/Tazobactam/Dextrose (Zosyn 4.5gm Ivpb (Premix)) 100 mls @ 200 mls/ hr IVPB Q8H-IV [facility] Last Admin: 02/11/17 12:38 Dose: 200 mls/hr Insulin Aspart (Novolog Vial Sliding Scale -) 1 vial SQ ACHS [facility] PRN Reason: Protocol Last Admin: 02/11/17 11:56 Dose: Not Given Levothyroxine Sodium (Synthroid -) 75 mcg PO DAILY@0700 [facility] Last Admin: 02/11/17 06:02 Dose: 75 mcg Loratadine (Claritin -) 10 mg PO DAILY [facility] Last Admin: 02/11/17 09:16 Dose: 10 mg Metformin HCl (Glucophage -) 500 mg PO BIDAC [facility] Last Admin: 02/11/17 06:02 Dose: 500 mg Miscellaneous (Duragesic Patch Waste) 1 each TD PRN PRN PRN Reason: PAIN Last Admin: 01/31/17 02:15 Dose: 1 each Miscellaneous (Duragesic Patch Waste) 1 each TD PRN PRN PRN Reason: PAIN Stop: 02/12/17 10:22 Multi-Ingredient Lotion (Eucerin (Small Jar) -) 1 applic TP BID [facility] Last Admin: 02/11/17 09:17 Dose: Not Given Cuvrp-4-Djos Ethyl Esters (Lovaza -) 1 gm PO BID [facility] Last Admin: 02/11/17 09:16 Dose: 1 gm Ondansetron HCl (Zofran Injection) 8 mg IVPB Q12H PRN PRN Reason: NAUSEA AND/OR VOMITING Last Admin: 02/02/17 09:10 Dose: 8 mg Potassium Chloride (K-Dur -) 20 meq PO DAILY [facility] Last Admin: 02/11/17 09:16 Dose: 20 meq Ranitidine HCl (Zantac -) 150 mg PO DAILY [facility] Last Admin: 02/11/17 09:16 Dose: 150 mg Saliva Substitute (Mouthkote Solution -) 1 applic MM DAILY [facility] Last Admin: 02/11/17 09:16 Dose: 1 applic Senna (Senna -) 2 tab PO HS PRN PRN Reason: CONSTIPATION Last Admin: 01/29/17 21:09 Dose: 2 tab Tiotropium [place] (Spiriva -) 1 puff IH DAILY [facility] Last Admin: 02/11/17 09:16 Dose: 1 puff Tramadol HCl (Ultram -) 75 mg PO Q6H PRN PRN Reason: PAIN Warfarin Sodium (Coumadin -) 3 mg PO DAILY@1800 [facility] Last Admin: 02/10/17 17:14 Dose: 3 mg Constitutional: Yes: No Distress, Depressed, Obese Eyes: Yes: Conjunctiva Clear, EOM Intact HENT: Yes: Atraumatic, Normocephalic Neck: Yes: Supple, Trachea Midline Cardiovascular: Yes: Regular Rate and Rhythm Respiratory: Yes: Cough, Diminished, On Nasal O2. No: Accessory Muscle Use, Rhonchi, Stridor, Wheezes ...Inspection: Yes: WNL ...Clubbing: No Gastrointestinal: Yes: Normal Bowel Sounds, Soft, Abdomen, Obese Renal/: Yes: WNL Musculoskeletal: Yes: Back Pain Extremities: Yes: WNL Edema: Yes Peripheral Pulses WNL: Yes Integumentary: Yes: WNL Neurological: Yes: WNL, Alert, Oriented ...Motor Strength: WNL Psychiatric: Yes: WNL, Alert, Oriented Labs: Laboratory Results - last 24 hr 02/10/17 02/11/17 02/11/17 21:01 06:01 06:50 WBC 4.4 RBC 3.16 L Hgb 10.5 L Hct 30.2 L MCV 95.8 MCH 33.2 MCHC 34.7 RDW 18.3 H Plt Count 239 MPV 8.7 Neutrophils % 85.8 H Lymphocytes % 11.3 Monocytes % 1.9 L Eosinophils % 0.4 Basophils % 0.6 PT with INR INR Sodium Potassium Chloride Carbon Dioxide Anion Gap BUN Creatinine Creat Clearance w eGFR POC Glucometer 158 128 Random Glucose Calcium Total Bilirubin AST ALT Alkaline Phosphatase Total Protein Albumin 02/11/17 02/11/17 02/11/17 06:50 06:50 11:15 WBC RBC Hgb Hct MCV MCH MCHC RDW Plt Count MPV Neutrophils % Lymphocytes % Monocytes % Eosinophils % Basophils % PT with INR 26.60 H INR 2.35 H Sodium 134 L Potassium 3.5 Chloride 93 L Carbon Dioxide 30 Anion Gap 11 BUN 14 Creatinine 0.6 Creat Clearance w eGFR > 60 POC Glucometer 190 Random Glucose 127 H Calcium 8.8 Total Bilirubin 0.9 D AST 117 H ALT 74 D Alkaline Phosphatase 136 H Total Protein 6.7 Albumin 2.5 L Problem List - Problems (1) A-fib Code(s): I48.91 - UNSPECIFIED ATRIAL FIBRILLATION Qualifiers: (2) Intractable back pain Code(s): M54.9 - DORSALGIA, UNSPECIFIED (3) Hypothyroid Code(s): E03.9 - HYPOTHYROIDISM, UNSPECIFIED (4) Lymphedema Code(s): I89.0 - LYMPHEDEMA, NOT ELSEWHERE CLASSIFIED (5) Anemia Code(s): D64.9 - ANEMIA, UNSPECIFIED (6) Anxiety and depression Code(s): F41.9 - ANXIETY DISORDER, UNSPECIFIED F32.9 - MAJOR DEPRESSIVE DISORDER, SINGLE EPISODE, UNSPECIFIED (7) Diabetes Code(s): E11.9 - TYPE 2 DIABETES MELLITUS WITHOUT COMPLICATIONS Qualifiers: Diabetes mellitus type: type 2 Diabetes mellitus complication status: without complication (8) HTN (hypertension) Code(s): I10 - ESSENTIAL (PRIMARY) HYPERTENSION Qualifiers: (9) Morbidly obese Code(s): E66.01 - MORBID (SEVERE) OBESITY DUE TO EXCESS CALORIES (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 Code(s): C56.9 - MALIGNANT NEOPLASM OF UNSPECIFIED OVARY C80.0 - DISSEMINATED MALIGNANT NEOPLASM, UNSPECIFIED (11) Pulmonary nodules/lesions, multiple Code(s): R91.8 - OTHER NONSPECIFIC ABNORMAL FINDING OF LUNG FIELD (12) SOB (shortness of breath) Code(s): R06.02 - SHORTNESS OF BREATH Assessment/Plan ABX per ID O2 as needed Continue support care. Coumadin Dr An Problem List - Problems (1) A-fib Code(s): I48.91 - UNSPECIFIED ATRIAL FIBRILLATION Qualifiers: (2) Intractable back pain Code(s): M54.9 - DORSALGIA, UNSPECIFIED (3) Hypothyroid Code(s): E03.9 - HYPOTHYROIDISM, UNSPECIFIED (4) Lymphedema Code(s): I89.0 - LYMPHEDEMA, NOT ELSEWHERE CLASSIFIED (5) Anemia Code(s): D64.9 - ANEMIA, UNSPECIFIED (6) Anxiety and depression Code(s): F41.9 - ANXIETY DISORDER, UNSPECIFIED F32.9 - MAJOR DEPRESSIVE DISORDER, SINGLE EPISODE, UNSPECIFIED (7) Diabetes Code(s): E11.9 - TYPE 2 DIABETES MELLITUS WITHOUT COMPLICATIONS Qualifiers: Diabetes mellitus type: type 2 Diabetes mellitus complication status: without complication (8) HTN (hypertension) Code(s): I10 - ESSENTIAL (PRIMARY) HYPERTENSION Qualifiers: (9) Morbidly obese Code(s): E66.01 - MORBID (SEVERE) OBESITY DUE TO EXCESS CALORIES (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 Code(s): C56.9 - MALIGNANT NEOPLASM OF UNSPECIFIED OVARY C80.0 - DISSEMINATED MALIGNANT NEOPLASM, UNSPECIFIED (11) Pulmonary nodules/lesions, multiple Code(s): R91.8 - OTHER NONSPECIFIC ABNORMAL FINDING OF LUNG FIELD (12) SOB (shortness of breath) Code(s): R06.02 - SHORTNESS OF BREATH
--- NOTE | 2017-02-11 15:52 | PN ---
Progress Note (short form) - Note Progress Note: Patient seen and examined. chart reviewed continues to complain of pain and redness in the LLE O/E General Appearance: Obese Lung: Clear to auscultation, Other (decreased Lt. lung base) Skin: itching excoriations. Abdomen: Soft, No tenderness, Normal bowel sounds Extremities: Other (lymphedema), some bruises seen in the lower Neurological: Intact CBC, BMP 02/04/17 09:35 02/04/17 09:35 Current Medications Generic Name Dose Route Start Last Admin Trade Name Freq PRN Reason Stop Dose Admin Acetaminophen 325 mg 01/24/17 09:32 01/24/17 09:40 Tylenol - PO 325 mg Q6H PRN Administration PAIN Acetaminophen 650 mg 01/24/17 09:33 01/29/17 06:30 Tylenol - PO 650 mg Q6H PRN Administration PAIN Albuterol Sulfate 1 amp 02/03/17 18:00 02/04/17 11:50 Ventolin 0.042trength) - NEB 1 amp Q6HPO [facility] Administration Bupropion HCl 150 mg 01/24/17 10:00 02/04/17 09:16 Wellbutrin Xl - PO 150 mg DAILY [facility] Administration Diltiazem HCl 300 mg 01/24/17 10:00 02/04/17 09:16 Cardizem Cd - PO 300 mg DAILY [facility] Administration Fentanyl 1 patch 01/30/17 18:45 02/02/17 17:49 Duragesic 25mcg Patch - TD 1 patch Q72H [facility] Administration Furosemide 60 mg 02/05/17 10:00 Lasix - PO DAILY [facility] Glipizide 5 mg 01/24/17 07:00 02/04/17 06:11 Glucotrol - PO 5 mg DAILY@0700 [facility] Administration Guaifenesin 5 ml 01/26/17 20:29 02/04/17 09:25 Diabetic Tussin Dm - PO 5 ml Q6H PRN Administration COUGH Insulin Aspart 35 units 01/24/17 07:00 02/04/17 06:10 Novolog Mix 70/30 Vial SQ Not Given BIDAC [facility] Insulin Aspart 1 vial 01/24/17 16:45 02/04/17 12:02 Novolog Vial Sliding Scale - SQ Not Given ACHS [facility] Protocol Levothyroxine Sodium 75 mcg 01/24/17 07:00 02/04/17 06:11 Synthroid - PO 75 mcg DAILY@0700 [facility] Administration Loratadine 10 mg 01/24/17 10:00 02/04/17 09:15 Claritin - PO 10 mg DAILY [facility] Administration Metformin HCl 500 mg 01/24/17 07:00 02/04/17 06:11 Glucophage - PO 500 mg BIDAC [facility] Administration Miscellaneous 1 each 01/30/17 11:19 01/31/17 02:15 Duragesic Patch Waste TD 1 each PRN PRN Administration PAIN Multi-Ingredient Lotion 1 applic 01/25/17 22:00 02/04/17 09:19 Eucerin (Small Jar) - TP Not Given BID [facility] Dmuqn-9-Saoz Ethyl Esters 1 gm 01/23/17 22:00 02/04/17 09:14 Lovaza - PO 1 gm BID [facility] Administration Ondansetron HCl 8 mg 01/23/17 12:21 02/02/17 09:10 Zofran Injection IVPB 8 mg Q12H PRN Administration NAUSEA AND/OR VOMITING Potassium Chloride 20 meq 02/03/17 12:15 02/04/17 09:17 K-Dur - PO 20 meq DAILY [facility] Administration Ranitidine HCl 150 mg 01/24/17 10:00 02/04/17 09:15 Zantac - PO 150 mg DAILY [facility] Administration Senna 2 tab 01/29/17 10:48 01/29/17 21:09 Senna - PO 2 tab HS PRN Administration CONSTIPATION Tiotropium [place] 1 puff 01/24/17 10:00 02/04/17 09:17 Spiriva - IH 1 puff DAILY [facility] Administration Tramadol HCl 50 mg 02/02/17 13:45 Ultram - PO 02/04/17 23:59 Q8H PRN PAIN Warfarin Sodium 0.5 mg 02/02/17 18:00 Coumadin - PO DAILY@1800 [facility] Last Vital Signs Temp Pulse Resp BP Pulse Ox 97.5 F L 79 20 149/58 99 02/04/17 14:32 02/04/17 14:32 02/04/17 14:32 02/04/17 14:32 02/04/17 12:00 Assessment/Plan: Metastatic high grade mullerian cancer. on second line chemo, s.p C1D1 gemzar on 01/23. Week 2 on 02/06 Now with new cellulitis in the LLE Appreciate ID consult, placed on vanc and zosyn Await Podiatry consult pain control --c/w tramadol. on fentanyl 12 mcg Q 72hrs, afib :On coumadin- monitor INR s/p second dose of gem on 02/06. continue to monitor counts d/w also
--- NOTE | 2017-02-11 16:21 | CONSULT ---
Consult - text type - Consultation Consultation Note: Podiatry Consultation: Pleasant 61 year old F admitted to hospital for chemotherapy tx for high grade mullerian CA with mets. Podiatry consultation requested for cellulitis to left foot secondary to infected "blister" on the side of her foot. Patient does not know how long the blister has been on her foot. She does admit to not wearing shoes at home. Denies F/V/N/C/SOB/CP. AFebrile. PMHx: High grade mullerian CA with mets, IDDM, HTN, hypothyroid, Afib, COPD, morbid obesity, lymphedema Meds: noted in chart ALL: hydromorphone, oxycodone VICTOR HUGO: L foot: pedal pulses non-palpable secondary to edema, TG warm-warmer L foot, CFT brisk to all toes. There is a fluid-filled fluctuant bulla lateral aspect of 5th metatarsophalangeal joint with surrounding erythema to the dorsal- lateral midfoot. There is no soft tissue crepitus. There is minimal tenderness to palpation. There is no lymphangitis. Streaking cellulitis fixed to lateral midfoot. There is extensive lymphedema with diabetic dermopathy. Nails are elongated, discolored, thickened, tender x 10. No nail bed ulcerations, no signs of acute infection. WBC: 4.4 Blood Cx: no growth x 5 days L foot XR: soft tissue swelling, no radiographic evidence of osteomyelitis Imp: 61 year old DM F with L foot cutaneous abscess and cellulitis 1. With verbal consent obtained, incision and drainage of cutaneous abscess using sterile #15 blade scalpel. Patient tolerated the procedure well. Appropiate soft tissue culture obtained. DSD applied L foot. 2. Rx bactroban + DSD daily to left foot. 3. Monitor progression of cellulitis. 4. Abx per Infectious Disease. 5. Thank you for the courtesy of this consultation. Genesis Kendall DPM
[2017-02-11] MEDS: WARFARIN NA 3 MG TABLET PO SCH (17:10)
[2017-02-11] MEDS ORDERED: PIPERACILLIN/TAZOB 4.5 GM 100 ML IVPB SCH (18:00)
[2017-02-11] MEDS ORDERED: INSULIN (NOVOLOG) ASPART 100 UNITS/ML 10ML VIAL ONE (20:41)
[2017-02-12] MEDS: PIPERACILLIN/TAZOB 4.5 GM 100 ML IVPB SCH ×3 (01:15→18:03)
[2017-02-12] MEDS: VANCOMYCIN 1,500 MG in DEXTROSE 5%-WATER - 500 ML IVPB SCH ×2 (02:00→14:40)
[2017-02-12] MEDS ORDERED: PT OWN MED DRAWER 7, Y5N ONE ×4 (02:31→23:42)
[2017-02-12] MEDS: ACETAMINOPHEN 325 MG TABLET (FP) PO PRN ×2 (04:52→22:26)
[2017-02-12] MEDS: metFORMIN HCL 500 MG TABLET (FP) PO SCH ×2 (06:21→18:01)
[2017-02-12] MEDS: LEVOTHYROXINE NA 75 MCG TABLET (FP) PO SCH (06:22)
[2017-02-12] MEDS: glipiZIDE 5 MG TABLET (FP) PO SCH (06:22)
[2017-02-12] MEDS: FUROSEMIDE 40 MG/4 ML INJECTABLE VIAL IVPUSH SCH ×2 (06:22→14:42)
[2017-02-12] MEDS: INSULIN SLIDING SCALE (NOVOLOG) 1 VIAL SQ SCH ×4 (06:30→21:13)
[2017-02-12] MEDS ORDERED: INSULIN (NOVOLOG) ASPART 100 UNITS/ML 10ML VIAL ONE (06:33)
[2017-02-12 07:42] LABS: INR 2.66 (0.82-1.09); PROTHROMBIN TIME (PATIENT) 30.1 SEC (9.98-11.88)
[2017-02-12 07:44] LABS: MCH 32.8 pg (25.7-33.7); MCHC 34.1 g/dl (32.0-36.0); MEAN CELL VOLUME 96.2 fl (80-96); MEAN PLT VOLUME 8.8 fl (7.5-11.1); PLATELET COUNT 189 K/MM3 (134-434); RDW 18.7 % (11.6-15.6); WHITE BLOOD COUNT 2.3 K/mm3 (4.0-10.0)
[2017-02-12 07:54] LABS: ALBUMIN 2.2 g/dl (3.4-5.0); ANION GAP 6 (8-16); CALCIUM 8.8 mg/dL (8.5-10.1); CO2 33 mmol/L (21-32); GLUCOSE,RANDOM 112 mg/dL (74-106); SGOT/AST 96 U/L (15-37); SGPT/ALT 64 U/L (12-78)
[2017-02-12 07:58] LABS: ALK PHOS 135 U/L (45-117); CREATININE 0.8 mg/dL (0.55-1.02); TOT PROT 5.8 g/dl (6.4-8.2)
[2017-02-12] MEDS: RANITIDINE HCL 150 MG TABLET (FP) PO SCH (09:00)
[2017-02-12] MEDS: MINERAL OIL/PETROLAT/WATER TOPICAL CREAM 113 GM JAR TP SCH ×2 (09:00→21:16)
[2017-02-12] MEDS: POTASSIUM CHLORIDE TABS 20 MEQ TABLET.ER (FP) PO SCH (09:00)
[2017-02-12] MEDS: LORATADINE 10 MG TABLET PO SCH (09:00)
[2017-02-12] MEDS: OMEGA-3 ACID ETHYL ESTERS (FATTY-ACIDS) 1 GM CAPSULE (FP) PO SCH ×2 (09:00→21:14)
[2017-02-12] MEDS: MUPIROCIN 2% TOPICAL OINTMENT 22 GM TUBE TP SCH (09:01)
[2017-02-12] MEDS: TIOTROPIUM BROMIDE 18 MCG/INH (DEVICE W/ 5 CAPSULES) IH SCH (10:00)
--- NOTE | 2017-02-12 10:04 | PN ---
Progress Note, Physician Chief Complaint: legs swelling better Had been seen by Podiatry yesterday, I & D done-- cultures sent - Current Medication List Current Medications: Active Medications Acetaminophen (Tylenol -) 650 mg PO Q6H PRN PRN Reason: PAIN Last Admin: 02/12/17 04:52 Dose: 650 mg Albuterol Sulfate (Ventolin 0.083% Nebulizer Soln -) 1 amp NEB Q4H PRN PRN Reason: SHORT OF BREATH/WHEEZING Last Admin: 02/10/17 21:25 Dose: 1 amp Bupropion HCl (Wellbutrin Xl -) 150 mg PO DAILY [facility] Last Admin: 02/12/17 09:00 Dose: 150 mg Diltiazem HCl (Cardizem Cd -) 300 mg PO DAILY [facility] Last Admin: 02/12/17 09:00 Dose: 300 mg Docusate Sodium (Colace -) 100 mg PO Q8H PRN PRN Reason: CONSTIPATION Fentanyl (Duragesic 12mcg Patch -) 1 patch TD Q72H [facility] Stop: 02/12/17 10:24 Last Admin: 02/11/17 09:34 Dose: 1 patch Furosemide (Lasix Injection -) 40 mg IVPUSH BID@0600,1400 [facility] Last Admin: 02/12/17 06:22 Dose: 40 mg Glipizide (Glucotrol -) 5 mg PO DAILY@0700 [facility] Last Admin: 02/12/17 06:22 Dose: 5 mg Guaifenesin (Diabetic Tussin Dm -) 5 ml PO Q6H PRN PRN Reason: COUGH Last Admin: 02/10/17 21:05 Dose: 5 ml Vancomycin HCl 1,500 mg/ (Dextrose) 500 mls @ 250 mls/hr IVPB BID@0100,1300 [facility] PRN Reason: Protocol Last Admin: 02/12/17 02:00 Dose: 250 mls/hr Piperacillin/Tazobactam/Dextrose (Zosyn 4.5gm Ivpb (Premix)) 100 mls @ 200 mls/ hr IVPB Q8H-IV [facility] Last Admin: 02/12/17 01:15 Dose: 200 mls/hr Insulin Aspart (Novolog Vial Sliding Scale -) 1 vial SQ ACHS [facility] PRN Reason: Protocol Last Admin: 02/12/17 06:30 Dose: Not Given Levothyroxine Sodium (Synthroid -) 75 mcg PO DAILY@0700 [facility] Last Admin: 02/12/17 06:22 Dose: 75 mcg Loratadine (Claritin -) 10 mg PO DAILY [facility] Last Admin: 02/12/17 09:00 Dose: 10 mg Metformin HCl (Glucophage -) 500 mg PO BIDAC [facility] Last Admin: 02/12/17 06:21 Dose: 500 mg Miscellaneous (Duragesic Patch Waste) 1 each TD PRN PRN PRN Reason: PAIN Last Admin: 01/31/17 02:15 Dose: 1 each Miscellaneous (Duragesic Patch Waste) 1 each TD PRN PRN PRN Reason: PAIN Stop: 02/12/17 10:22 Multi-Ingredient Lotion (Eucerin (Small Jar) -) 1 applic TP BID [facility] Last Admin: 02/12/17 09:00 Dose: 1 applic Mupirocin (Bactroban 2% Ointment -) 1 applic TP DAILY [facility] Last Admin: 02/12/17 09:01 Dose: 1 applic [id number]-[id number] Ethyl Esters (Lovaza -) 1 gm PO BID [facility] Last Admin: 02/12/17 09:00 Dose: 1 gm Ondansetron HCl (Zofran Injection) 8 mg IVPB Q12H PRN PRN Reason: NAUSEA AND/OR VOMITING Last Admin: 02/02/17 09:10 Dose: 8 mg Potassium Chloride (K-Dur -) 20 meq PO DAILY [facility] Last Admin: 02/12/17 09:00 Dose: 20 meq Ranitidine HCl (Zantac -) 150 mg PO DAILY [facility] Last Admin: 02/12/17 09:00 Dose: 150 mg Saliva Substitute (Mouthkote Solution -) 1 applic MM DAILY [facility] Last Admin: 02/11/17 09:16 Dose: 1 applic Senna (Senna -) 2 tab PO HS PRN PRN Reason: CONSTIPATION Last Admin: 01/29/17 21:09 Dose: 2 tab Tiotropium [place] (Spiriva -) 1 puff IH DAILY [facility] Last Admin: 02/11/17 09:16 Dose: 1 puff Tramadol HCl (Ultram -) 75 mg PO Q6H PRN PRN Reason: PAIN Warfarin Sodium (Coumadin -) 3 mg PO DAILY@1800 [facility] Last Admin: 10/24/17 17:10 Dose: 3 mg - Objective Vital Signs: Vital Signs Temperature 98.1 F 02/12/17 05:53 Pulse Rate 95 H 02/12/17 05:53 Respiratory Rate 20 02/12/17 05:53 Blood Pressure 101/54 02/12/17 05:53 O2 Sat by Pulse Oximetry (%) 97 02/11/17 21:00 Constitutional: Yes: No Distress, Calm Cardiovascular: Yes: Pulse Irregular Respiratory: Yes: Diminished Gastrointestinal: Yes: Normal Bowel Sounds, Soft, Abdomen, Obese. No: Tenderness Extremities: Yes: Other (left foot dressing +) Edema: Yes Labs: CBC, BMP 02/12/17 06:00 02/12/17 06:00 INR, PTT INR 2.66 (0.82-1.09) H 02/12/17 06:00 Problem List - Problems (1) A-fib Code(s): I48.91 - UNSPECIFIED ATRIAL FIBRILLATION Qualifiers: (2) Depression, major, severe recurrence Code(s): F33.2 - MAJOR DEPRESSV DISORDER, RECURRENT SEVERE W/O PSYCH FEATURES (3) Primary cancer of ovary with widespread metastatic disease Code(s): C56.9 - MALIGNANT NEOPLASM OF UNSPECIFIED OVARY C80.0 - DISSEMINATED MALIGNANT NEOPLASM, UNSPECIFIED (4) Metabolic encephalopathy Code(s): G93.41 - METABOLIC ENCEPHALOPATHY (5) Intractable back pain Code(s): M54.9 - DORSALGIA, UNSPECIFIED Assessment/Plan PLAN pt feels better today Pain control with Fetanyl patch and Tramadol as needed- on lasix , monitor renal function -- stable on iv Lasix BID podiatry evaluation Noted ID folllow up-- now on antibiotics continue with meds MRSA in sputum monitor CBC decrease Coumadin to 3 mg-- INR therapeutic now O 2 as needed, nebs as needed
--- NOTE | 2017-02-12 10:41 | PN ---
Progress Note (short form) - Note Progress Note: Patient seen and examined. chart reviewed seen by podiatry O/E General Appearance: Obese Lung: Clear to auscultation, Other (decreased Lt. lung base) Skin: itching excoriations. Abdomen: Soft, No tenderness, Normal bowel sounds Extremities: Other (lymphedema), +dressing Neurological: Intact Last Vital Signs Temp Pulse Resp BP Pulse Ox 97.8 F 83 20 130/65 97 02/12/17 15:08 02/12/17 15:08 02/12/17 15:08 02/12/17 15:08 02/12/17 10:41 CBC, BMP 02/12/17 06:00 02/12/17 06:00 Current Medications Generic Name Dose Route Start Last Admin Trade Name Freq PRN Reason Stop Dose Admin Acetaminophen 650 mg 01/24/17 09:33 02/12/17 04:52 Tylenol - PO 650 mg Q6H PRN Administration PAIN Albuterol Sulfate 1 amp 02/10/17 09:17 02/10/17 21:25 Ventolin 0.083% Nebulizer Soln - NEB 1 amp Q4H PRN Administration SHORT OF BREATH/WHEEZING Bupropion HCl 150 mg 01/24/17 10:00 02/12/17 09:00 Wellbutrin Xl - PO 150 mg DAILY [facility] Administration Diltiazem HCl 300 mg 01/24/17 10:00 02/12/17 09:00 Cardizem Cd - PO 300 mg DAILY [facility] Administration Docusate Sodium 100 mg 02/05/17 10:23 Colace - PO Q8H PRN CONSTIPATION Furosemide 40 mg 02/11/17 14:00 02/12/17 14:42 Lasix Injection - IVPUSH 40 mg BID@0600,1400 [facility] Administration Glipizide 5 mg 01/24/17 07:00 02/12/17 06:22 Glucotrol - PO 5 mg DAILY@0700 [facility] Administration Guaifenesin 5 ml 01/26/17 20:29 02/10/17 21:05 Diabetic Tussin Dm - PO 5 ml Q6H PRN Administration COUGH Vancomycin HCl 1,500 mg/ 500 mls @ 250 mls/hr 02/11/17 13:00 02/12/17 14:40 Dextrose IVPB 250 mls/hr BID@0100,1300 [facility] Administration Protocol Piperacillin/Tazobactam/Dextrose 100 mls @ 200 mls/hr 02/11/17 12:00 02/12/17 10:00 Zosyn 4.5gm Ivpb (Premix) IVPB 200 mls/hr Q8H-IV [facility] Administration Insulin Aspart 1 vial 01/24/17 16:45 02/12/17 14:41 Novolog Vial Sliding Scale - SQ Not Given ACHS [facility] Protocol Levothyroxine Sodium 75 mcg 01/24/17 07:00 02/12/17 06:22 Synthroid - PO 75 mcg DAILY@0700 [facility] Administration Loratadine 10 mg 01/24/17 10:00 02/12/17 09:00 Claritin - PO 10 mg DAILY [facility] Administration Metformin HCl 500 mg 01/24/17 07:00 02/12/17 06:21 Glucophage - PO 500 mg BIDAC [facility] Administration Miscellaneous 1 each 01/30/17 11:19 01/31/17 02:15 Duragesic Patch Waste TD 1 each PRN PRN Administration PAIN Multi-Ingredient Lotion 1 applic 01/25/17 22:00 02/12/17 09:00 Eucerin (Small Jar) - TP 1 applic BID [facility] Administration Mupirocin 1 applic 02/12/17 10:00 02/12/17 09:01 Bactroban 2% Ointment - TP 1 applic DAILY [facility] Administration Lppne-3-Agpt Ethyl Esters 1 gm 01/23/17 22:00 02/12/17 09:00 Lovaza - PO 1 gm BID [facility] Administration Ondansetron HCl 8 mg 01/23/17 12:21 02/02/17 09:10 Zofran Injection IVPB 8 mg Q12H PRN Administration NAUSEA AND/OR VOMITING Potassium Chloride 20 meq 02/03/17 12:15 02/12/17 09:00 K-Dur - PO 20 meq DAILY [facility] Administration Ranitidine HCl 150 mg 01/24/17 10:00 02/12/17 09:00 Zantac - PO 150 mg DAILY [facility] Administration Saliva Substitute 1 applic 02/09/17 10:00 02/12/17 14:41 Mouthkote Solution - MM 1 applic DAILY [facility] Administration Senna 2 tab 01/29/17 10:48 01/29/17 21:09 Senna - PO 2 tab HS PRN Administration CONSTIPATION Tiotropium [place] 1 puff 01/24/17 10:00 02/12/17 10:00 Spiriva - IH 1 puff DAILY [facility] Administration Tramadol HCl 75 mg 02/07/17 10:30 Ultram - PO Q6H PRN PAIN Warfarin Sodium 3 mg 02/09/17 18:00 02/11/17 17:10 Coumadin - PO 3 mg DAILY@1800 [facility] Administration Assessment/Plan: Metastatic high grade mullerian cancer. on second line chemo, s.p C1D1 gemzar on 01/23. Week 2 on 02/06 Now with new cellulitis in the LLE Appreciate ID consult, placed on vanc and zosyn appreciate Podiatry consult, s/p IandD , will f/u cx pain control --c/w tramadol. on fentanyl 12 mcg Q 72hrs, afib :On coumadin- monitor INR s/p second dose of gem on 02/06. continue to monitor counts, will follow CBC w/ diff in the am to see ?neupogen needed
--- NOTE | 2017-02-12 13:50 | PN ---
Physical Exam: SUBJECTIVE: Patient seen and examined at bedside. She is doing well, denies any fever, chills, N/V/D/C. She reports some redness in the medial part of the knee. OBJECTIVE: Vital Signs Period Temp Pulse Resp BP Sys/Dinero Pulse Ox Last 24 Hr 97.5 F-98.1 F 67-97 20-20 101-108/54-63 94-97 GENERAL: The patient is awake, alert, and fully oriented, in no acute distress. HEAD: Normal with no signs of trauma. EYES: sclera anicteric, conjunctiva clear. ENT: moist mucous membranes. LUNGS: dininished breath sound on the left base lung, no wheezes, no crackles, no accessory muscle use. HEART: Regular rate and rhythm, S1, S2 without murmur, rub or gallop. ABDOMEN: Soft, nontender, nondistended, normoactive bowel sounds, no guarding, no rebound, EXTREMITIES: warm, well-perfused, B/L lymph edema, left dorsal foot cellulites , covered, covered by zulema. NEUROLOGICAL: good mentation Normal speech, gait not observed. SKIN: Warm, dry, no rashes or lesions noted Laboratory Results - last 24 hr 02/10/17 02/10/17 02/11/17 11:08 16:32 15:00 WBC RBC Hgb Hct MCV MCH MCHC RDW Plt Count MPV PT with INR INR Sodium Potassium Chloride Carbon Dioxide Anion Gap BUN Creatinine Creat Clearance w eGFR POC Glucometer 142 147 Random Glucose Calcium Magnesium 1.7 L Total Bilirubin AST ALT Alkaline Phosphatase Total Protein Albumin 02/11/17 02/11/17 02/12/17 16:48 22:16 06:00 WBC 2.3 L D RBC 2.84 L Hgb 9.3 L D Hct 27.3 L MCV 96.2 H MCH 32.8 MCHC 34.1 RDW 18.7 H Plt Count 189 D MPV 8.8 PT with INR INR Sodium Potassium Chloride Carbon Dioxide Anion Gap BUN Creatinine Creat Clearance w eGFR POC Glucometer 130 112 Random Glucose Calcium Magnesium Total Bilirubin AST ALT Alkaline Phosphatase Total Protein Albumin 02/12/17 02/12/17 02/12/17 06:00 06:00 06:20 WBC RBC Hgb Hct MCV MCH MCHC RDW Plt Count MPV PT with INR 30.10 H INR 2.66 H Sodium 133 L Potassium 3.6 Chloride 94 L Carbon Dioxide 33 H Anion Gap 6 L BUN 11 D Creatinine 0.8 D Creat Clearance w eGFR > 60 POC Glucometer 122 Random Glucose 112 H Calcium 8.8 Magnesium Total Bilirubin 1.0 AST 96 H ALT 64 Alkaline Phosphatase 135 H Total Protein 5.8 L Albumin 2.2 L Active Medications Generic Name Dose Route Start Last Admin Trade Name Freq PRN Reason Stop Dose Admin Acetaminophen 650 mg 01/24/17 09:33 02/12/17 04:52 Tylenol - PO 650 mg Q6H PRN Administration PAIN Albuterol Sulfate 1 amp 02/10/17 09:17 02/10/17 21:25 Ventolin 0.083% Nebulizer Soln - NEB 1 amp Q4H PRN Administration SHORT OF BREATH/WHEEZING Bupropion HCl 150 mg 01/24/17 10:00 02/12/17 09:00 Wellbutrin Xl - PO 150 mg DAILY [facility] Administration Diltiazem HCl 300 mg 01/24/17 10:00 02/12/17 09:00 Cardizem Cd - PO 300 mg DAILY [facility] Administration Docusate Sodium 100 mg 02/05/17 10:23 Colace - PO Q8H PRN CONSTIPATION Furosemide 40 mg 02/11/17 14:00 02/12/17 06:22 Lasix Injection - IVPUSH 40 mg BID@0600,1400 [facility] Administration Glipizide 5 mg 01/24/17 07:00 02/12/17 06:22 Glucotrol - PO 5 mg DAILY@0700 [facility] Administration Guaifenesin 5 ml 01/26/17 20:29 02/10/17 21:05 Diabetic Tussin Dm - PO 5 ml Q6H PRN Administration COUGH Vancomycin HCl 1,500 mg/ 500 mls @ 250 mls/hr 02/11/17 13:00 02/12/17 02:00 Dextrose IVPB 250 mls/hr BID@0100,1300 [facility] Administration Protocol Piperacillin/Tazobactam/Dextrose 100 mls @ 200 mls/hr 02/11/17 12:00 02/12/17 01:15 Zosyn 4.5gm Ivpb (Premix) IVPB 200 mls/hr Q8H-IV [facility] Administration Insulin Aspart 1 vial 01/24/17 16:45 02/12/17 06:30 Novolog Vial Sliding Scale - SQ Not Given ACHS [facility] Protocol Levothyroxine Sodium 75 mcg 01/24/17 07:00 02/12/17 06:22 Synthroid - PO 75 mcg DAILY@0700 [facility] Administration Loratadine 10 mg 01/24/17 10:00 02/12/17 09:00 Claritin - PO 10 mg DAILY [facility] Administration Metformin HCl 500 mg 01/24/17 07:00 02/12/17 06:21 Glucophage - PO 500 mg BIDAC [facility] Administration Miscellaneous 1 each 01/30/17 11:19 01/31/17 02:15 Duragesic Patch Waste TD 1 each PRN PRN Administration PAIN Multi-Ingredient Lotion 1 applic 01/25/17 22:00 02/12/17 09:00 Eucerin (Small Jar) - TP 1 applic BID [facility] Administration Mupirocin 1 applic 02/12/17 10:00 02/12/17 09:01 Bactroban 2% Ointment - TP 1 applic DAILY [facility] Administration Lgjrz-3-Rcts Ethyl Esters 1 gm 01/23/17 22:00 02/12/17 09:00 Lovaza - PO 1 gm BID [facility] Administration Ondansetron HCl 8 mg 01/23/17 12:21 02/02/17 09:10 Zofran Injection IVPB 8 mg Q12H PRN Administration NAUSEA AND/OR VOMITING Potassium Chloride 20 meq 02/03/17 12:15 02/12/17 09:00 K-Dur - PO 20 meq DAILY [facility] Administration Ranitidine HCl 150 mg 01/24/17 10:00 02/12/17 09:00 Zantac - PO 150 mg DAILY [facility] Administration Saliva Substitute 1 applic 02/09/17 10:00 02/11/17 09:16 Mouthkote Solution - MM 1 applic DAILY [facility] Administration Senna 2 tab 01/29/17 10:48 01/29/17 21:09 Senna - PO 2 tab HS PRN Administration CONSTIPATION Tiotropium [place] 1 puff 01/24/17 10:00 02/11/17 09:16 Spiriva - IH 1 puff DAILY [facility] Administration Tramadol HCl 75 mg 02/07/17 10:30 Ultram - PO Q6H PRN PAIN Warfarin Sodium 3 mg 02/09/17 18:00 02/11/17 17:10 Coumadin - PO 3 mg DAILY@1800 [facility] Administration CBC, BMP 02/12/17 06:00 02/12/17 06:00 ASSESSMENT/PLAN: 61 year old DM F with L foot cutaneous abscess and cellulitis 1. S/P incision and drainage of cutaneous abscess , with no complication, Appropiate soft tissue culture obtained. DSD applied L foot. 2. Rx bactroban + DSD daily to left foot. 3. Monitor progression of cellulitis. 4- continue Vanco/Zosyn 5- F/U camille fernando
[2017-02-12] MEDS: LYTES/YERBA SANTA 240 ML BOTTLE MM SCH (14:41)
--- NOTE | 2017-02-12 15:39 | PN ---
Teaching Attending Note Name of Resident: Daniel Doan ATTENDING PHYSICIAN STATEMENT I saw and evaluated the patient. I reviewed the resident's note and discussed the case with the resident. I agree with the resident's findings and plan as documented. SUBJECTIVE: no complaints, s/p draiange of small collection/abscess by podiatry yesterday, cultures sent OBJECTIVE: Vital Signs Period Temp Pulse Resp BP Sys/Dinero Pulse Ox Last 24 Hr 97.5 F-98.1 F 67-97 20-20 101-130/54-65 94-97 cor-rrr lungs clear abd soft,nt ext less erythema of left foot, some erythema of right inner thigh CBC, BMP 02/12/17 06:00 02/12/17 06:00 Microbiology 02/11/17 16:50 Foot - Left Lateral Gram Stain - Final 02/10/17 16:30 Blood - Peripheral Venous Blood Culture - Preliminary NO GROWTH OBTAINED AFTER 24 HOURS, INCUBATION TO CONTINUE FOR 4 DAYS. 02/10/17 15:40 Blood - Neeta Cath Blood Culture - Preliminary NO GROWTH OBTAINED AFTER 24 HOURS, INCUBATION TO CONTINUE FOR 4 DAYS. 01/29/17 06:30 Sputum - Expectorated Gram Stain - Final 01/29/17 06:30 Sputum - Expectorated Sputum Culture - Final Beta Hem Streptococcus Group F Mr S Aureus 01/27/17 20:00 Blood - Neeta Cath Blood Culture - Final NO GROWTH AFTER 5 DAYS INCUBATION 01/27/17 15:30 Blood - Neeta Cath Blood Culture - Final NO GROWTH AFTER 5 DAYS INCUBATION 01/27/17 15:30 Blood - Peripheral Venous Blood Culture - Final NO GROWTH AFTER 5 DAYS INCUBATION 01/27/17 19:45 Urine - Urine Clean Catch Urine Culture - Final NO GROWTH OBTAINED ASSESSMENT AND PLAN: continue vancomycin and zosyn for foot infection f/u vanco trough and cultures
[2017-02-12] MEDS: ALBUTEROL SO4 0.083% IH SOL 2.5 MG/3 ML VIAL.NEB. NEB PRN ×2 (17:18→23:23)
[2017-02-12] MEDS: WARFARIN NA 3 MG TABLET PO SCH (18:02)
[2017-02-13] MEDS ORDERED: PT OWN MED DRAWER 7, Y5N ONE ×3 (00:30→21:37)
[2017-02-13] MEDS: VANCOMYCIN 1,500 MG in DEXTROSE 5%-WATER - 500 ML IVPB SCH ×2 (00:45→13:00)
[2017-02-13] MEDS: PIPERACILLIN/TAZOB 4.5 GM 100 ML IVPB SCH ×2 (03:19→10:10)
[2017-02-13] MEDS: FUROSEMIDE 40 MG/4 ML INJECTABLE VIAL IVPUSH SCH ×2 (05:11→16:22)
[2017-02-13] MEDS: metFORMIN HCL 500 MG TABLET (FP) PO SCH ×2 (06:32→17:54)
[2017-02-13] MEDS: INSULIN SLIDING SCALE (NOVOLOG) 1 VIAL SQ SCH ×4 (06:33→22:04)
[2017-02-13] MEDS: LEVOTHYROXINE NA 75 MCG TABLET (FP) PO SCH (06:33)
[2017-02-13] MEDS: glipiZIDE 5 MG TABLET (FP) PO SCH (06:33)
[2017-02-13 07:37] LABS: MCH 32.8 pg (25.7-33.7); MCHC 34.2 g/dl (32.0-36.0); MEAN CELL VOLUME 96.2 fl (80-96); MEAN PLT VOLUME 8.6 fl (7.5-11.1); PLATELET COUNT 190 K/MM3 (134-434); RDW 18.5 % (11.6-15.6)
[2017-02-13 07:54] LABS: INR 2.73 (0.82-1.09); PROTHROMBIN TIME (PATIENT) 30.8 SEC (9.98-11.88)
[2017-02-13 08:03] LABS: ANION GAP 13 (8-16); CALCIUM 9.2 mg/dL (8.5-10.1); CO2 31 mmol/L (21-32); CREATININE 0.8 mg/dL (0.55-1.02); GLUCOSE,RANDOM 96 mg/dL (74-106)
[2017-02-13] MEDS: POTASSIUM CHLORIDE TABS 20 MEQ TABLET.ER (FP) PO SCH (10:10)
[2017-02-13] MEDS: MUPIROCIN 2% TOPICAL OINTMENT 22 GM TUBE TP SCH (10:10)
[2017-02-13] MEDS: OMEGA-3 ACID ETHYL ESTERS (FATTY-ACIDS) 1 GM CAPSULE (FP) PO SCH ×2 (10:10→22:05)
[2017-02-13] MEDS: MINERAL OIL/PETROLAT/WATER TOPICAL CREAM 113 GM JAR TP SCH ×2 (10:10→22:07)
[2017-02-13] MEDS: LORATADINE 10 MG TABLET PO SCH (10:10)
[2017-02-13] MEDS: RANITIDINE HCL 150 MG TABLET (FP) PO SCH (10:10)
[2017-02-13] MEDS: TIOTROPIUM BROMIDE 18 MCG/INH (DEVICE W/ 5 CAPSULES) IH SCH (10:11)
[2017-02-13] MEDS: LYTES/YERBA SANTA 240 ML BOTTLE MM SCH (10:11)
[2017-02-13 11:15] LABS: MYELOCYTE 2 % (0-2); NUCLEATED RED BLOOD CELL 1 % (0-0); PLATELET ESTIMATE ADEQUATE (NORMAL); TOTAL CELLS COUNTED 100
--- NOTE | 2017-02-13 11:17 | PN ---
Physical Exam: SUBJECTIVE: Patient seen and examined at bedside. She is doing well, denies any fever, chills, N/V/D/C. She reports some redness in the medial part of the knee. OBJECTIVE: Vital Signs Period Temp Pulse Resp BP Sys/Dinero Pulse Ox Last 24 Hr 97.4 F-97.8 F 83-101 18-20 105-136/61-71 99 GENERAL: The patient is awake, alert, and fully oriented, in no acute distress. HEAD: Normal with no signs of trauma. EYES: sclera anicteric, conjunctiva clear. ENT: moist mucous membranes. LUNGS: dininished breath sound on the left base lung, no wheezes, no crackles, no accessory muscle use. HEART: Regular rate and rhythm, S1, S2 without murmur, rub or gallop. ABDOMEN: Soft, nontender, nondistended, normoactive bowel sounds, no guarding, no rebound, EXTREMITIES: warm, well-perfused, B/L lymph edema, left dorsal foot cellulites , covered, covered by zulema. NEUROLOGICAL: good mentation Normal speech, gait not observed. SKIN: Warm, dry, no rashes or lesions noted Laboratory Results - last 24 hr 02/12/17 02/12/17 02/13/17 17:49 21:11 05:28 WBC RBC Hgb Hct MCV MCH MCHC RDW Plt Count MPV Neutrophils % Lymphocytes % PT with INR INR Sodium Potassium Chloride Carbon Dioxide Anion Gap BUN Creatinine POC Glucometer 130 106 97 Random Glucose Calcium 02/13/17 02/13/17 02/13/17 06:00 06:00 06:00 WBC 4.0 D RBC 3.22 L Hgb 10.6 L D Hct 31.0 L MCV 96.2 H MCH 32.8 MCHC 34.2 RDW 18.5 H Plt Count 190 MPV 8.6 Neutrophils % No Result Required. Lymphocytes % No Result Required. PT with INR 30.80 H INR 2.73 H Sodium 134 L Potassium 3.6 Chloride 90 L Carbon Dioxide 31 Anion Gap 13 BUN 10 Creatinine 0.8 POC Glucometer Random Glucose 96 Calcium 9.2 Active Medications Generic Name Dose Route Start Last Admin Trade Name Freq PRN Reason Stop Dose Admin Acetaminophen 650 mg 01/24/17 09:33 02/12/17 22:26 Tylenol - PO 650 mg Q6H PRN Administration PAIN Albuterol Sulfate 1 amp 02/10/17 09:17 02/12/17 23:23 Ventolin 0.083% Nebulizer Soln - NEB 1 amp Q4H PRN Administration SHORT OF BREATH/WHEEZING Bupropion HCl 150 mg 01/24/17 10:00 02/13/17 10:10 Wellbutrin Xl - PO 150 mg DAILY [facility] Administration Diltiazem HCl 300 mg 01/24/17 10:00 02/13/17 10:10 Cardizem Cd - PO 300 mg DAILY [facility] Administration Docusate Sodium 100 mg 02/05/17 10:23 Colace - PO Q8H PRN CONSTIPATION Furosemide 40 mg 02/11/17 14:00 02/13/17 05:11 Lasix Injection - IVPUSH 40 mg BID@0600,1400 [facility] Administration Glipizide 5 mg 01/24/17 07:00 02/13/17 06:33 Glucotrol - PO 5 mg DAILY@0700 [facility] Administration Guaifenesin 5 ml 01/26/17 20:29 02/10/17 21:05 Diabetic Tussin Dm - PO 5 ml Q6H PRN Administration COUGH Vancomycin HCl 1,500 mg/ 500 mls @ 250 mls/hr 02/11/17 13:00 02/13/17 00:45 Dextrose IVPB 250 mls/hr BID@0100,1300 [facility] Administration Protocol Piperacillin/Tazobactam/Dextrose 100 mls @ 200 mls/hr 02/11/17 12:00 02/13/17 10:10 Zosyn 4.5gm Ivpb (Premix) IVPB 200 mls/hr Q8H-IV [facility] Administration Insulin Aspart 1 vial 01/24/17 16:45 02/13/17 06:33 Novolog Vial Sliding Scale - SQ Not Given ACHS [facility] Protocol Levothyroxine Sodium 75 mcg 01/24/17 07:00 02/13/17 06:33 Synthroid - PO 75 mcg DAILY@0700 [facility] Administration Loratadine 10 mg 01/24/17 10:00 02/13/17 10:10 Claritin - PO 10 mg DAILY [facility] Administration Metformin HCl 500 mg 01/24/17 07:00 02/13/17 06:32 Glucophage - PO 500 mg BIDAC [facility] Administration Miscellaneous 1 each 01/30/17 11:19 01/31/17 02:15 Duragesic Patch Waste TD 1 each PRN PRN Administration PAIN Multi-Ingredient Lotion 1 applic 01/25/17 22:00 02/13/17 10:10 Eucerin (Small Jar) - TP 1 applic BID [facility] Administration Mupirocin 1 applic 02/12/17 10:00 02/13/17 10:10 Bactroban 2% Ointment - TP 1 applic DAILY [facility] Administration Lwudp-0-Uclg Ethyl Esters 1 gm 01/23/17 22:00 02/13/17 10:10 Lovaza - PO 1 gm BID [facility] Administration Ondansetron HCl 8 mg 01/23/17 12:21 02/02/17 09:10 Zofran Injection IVPB 8 mg Q12H PRN Administration NAUSEA AND/OR VOMITING Potassium Chloride 20 meq 02/03/17 12:15 02/13/17 10:10 K-Dur - PO 20 meq DAILY [facility] Administration Ranitidine HCl 150 mg 01/24/17 10:00 02/13/17 10:10 Zantac - PO 150 mg DAILY [facility] Administration Saliva Substitute 1 applic 02/09/17 10:00 02/13/17 10:11 Mouthkote Solution - MM 1 applic DAILY [facility] Administration Senna 2 tab 01/29/17 10:48 01/29/17 21:09 Senna - PO 2 tab HS PRN Administration CONSTIPATION Tiotropium [place] 1 puff 01/24/17 10:00 02/13/17 10:11 Spiriva - IH 1 puff DAILY [facility] Administration Warfarin Sodium 3 mg 02/09/17 18:00 02/12/17 18:02 Coumadin - PO 3 mg DAILY@1800 [facility] Administration CBC, BMP 02/13/17 06:00 02/13/17 06:00 Microbiology 02/11/17 16:50 Foot - Left Lateral Gram Stain - Final 02/11/17 16:50 Foot - Left Lateral Wound Culture - Preliminary Staphylococcus Latex Coag Pos 02/10/17 16:30 Blood - Peripheral Venous Blood Culture - Preliminary NO GROWTH OBTAINED AFTER 48 HOURS, INCUBATION TO CONTINUE FOR 3 DAYS. 02/10/17 15:40 Blood - Neeta Cath Blood Culture - Preliminary NO GROWTH OBTAINED AFTER 48 HOURS, INCUBATION TO CONTINUE FOR 3 DAYS. 01/29/17 06:30 Sputum - Expectorated Gram Stain - Final 01/29/17 06:30 Sputum - Expectorated Sputum Culture - Final Beta Hem Streptococcus Group F Mr S Aureus 01/27/17 20:00 Blood - Neeta Cath Blood Culture - Final NO GROWTH AFTER 5 DAYS INCUBATION 01/27/17 15:30 Blood - Neeta Cath Blood Culture - Final NO GROWTH AFTER 5 DAYS INCUBATION 01/27/17 15:30 Blood - Peripheral Venous Blood Culture - Final NO GROWTH AFTER 5 DAYS INCUBATION 01/27/17 19:45 Urine - Urine Clean Catch Urine Culture - Final NO GROWTH OBTAINED ASSESSMENT/PLAN: 61 year old DM F with L foot cutaneous abscess and cellulitis 1. S/P incision and drainage of cutaneous abscess , with no complication, Appropiate soft tissue culture obtained. DSD applied L foot. 2. Rx bactroban + DSD daily to left foot. 3. Monitor progression of cellulitis. 4- continue Zosyn , stop vanco for now 5- camille fernando 24, repeat tomorrow
[2017-02-13] MEDS: ALBUTEROL SO4 0.083% IH SOL 2.5 MG/3 ML VIAL.NEB. NEB PRN ×2 (12:39→21:49)
--- NOTE | 2017-02-13 13:13 | PN ---
Progress Note, Physician Chief Complaint: feels ok today no pain - Current Medication List Current Medications: Active Medications Acetaminophen (Tylenol -) 650 mg PO Q6H PRN PRN Reason: PAIN Last Admin: 02/12/17 22:26 Dose: 650 mg Albuterol Sulfate (Ventolin 0.083% Nebulizer Soln -) 1 amp NEB Q4H PRN PRN Reason: SHORT OF BREATH/WHEEZING Last Admin: 02/13/17 12:39 Dose: 1 amp Bupropion HCl (Wellbutrin Xl -) 150 mg PO DAILY [facility] Last Admin: 02/13/17 10:10 Dose: 150 mg Diltiazem HCl (Cardizem Cd -) 300 mg PO DAILY [facility] Last Admin: 02/13/17 10:10 Dose: 300 mg Docusate Sodium (Colace -) 100 mg PO Q8H PRN PRN Reason: CONSTIPATION Furosemide (Lasix Injection -) 40 mg IVPUSH BID@0600,1400 [facility] Last Admin: 02/13/17 05:11 Dose: 40 mg Glipizide (Glucotrol -) 5 mg PO DAILY@0700 [facility] Last Admin: 02/13/17 06:33 Dose: 5 mg Guaifenesin (Diabetic Tussin Dm -) 5 ml PO Q6H PRN PRN Reason: COUGH Last Admin: 02/10/17 21:05 Dose: 5 ml Vancomycin HCl 1,500 mg/ (Dextrose) 500 mls @ 250 mls/hr IVPB BID@0100,1300 [facility] PRN Reason: Protocol Last Admin: 02/13/17 00:45 Dose: 250 mls/hr Piperacillin/Tazobactam/Dextrose (Zosyn 4.5gm Ivpb (Premix)) 100 mls @ 200 mls/ hr IVPB Q8H-IV [facility] Last Admin: 02/13/17 10:10 Dose: 200 mls/hr Insulin Aspart (Novolog Vial Sliding Scale -) 1 vial SQ ACHS [facility] PRN Reason: Protocol Last Admin: 02/13/17 06:33 Dose: Not Given Levothyroxine Sodium (Synthroid -) 75 mcg PO DAILY@0700 [facility] Last Admin: 02/13/17 06:33 Dose: 75 mcg Loratadine (Claritin -) 10 mg PO DAILY [facility] Last Admin: 02/13/17 10:10 Dose: 10 mg Metformin HCl (Glucophage -) 500 mg PO BIDAC [facility] Last Admin: 02/13/17 06:32 Dose: 500 mg Miscellaneous (Duragesic Patch Waste) 1 each TD PRN PRN PRN Reason: PAIN Last Admin: 01/31/17 02:15 Dose: 1 each Multi-Ingredient Lotion (Eucerin (Small Jar) -) 1 applic TP BID [facility] Last Admin: 02/13/17 10:10 Dose: 1 applic Mupirocin (Bactroban 2% Ointment -) 1 applic TP DAILY [facility] Last Admin: 02/13/17 10:10 Dose: 1 applic Vyaem-7-Hqet Ethyl Esters (Lovaza -) 1 gm PO BID [facility] Last Admin: 02/13/17 10:10 Dose: 1 gm Ondansetron HCl (Zofran Injection) 8 mg IVPB Q12H PRN PRN Reason: NAUSEA AND/OR VOMITING Last Admin: 02/02/17 09:10 Dose: 8 mg Potassium Chloride (K-Dur -) 20 meq PO DAILY [facility] Last Admin: 02/13/17 10:10 Dose: 20 meq Ranitidine HCl (Zantac -) 150 mg PO DAILY [facility] Last Admin: 02/13/17 10:10 Dose: 150 mg Saliva Substitute (Mouthkote Solution -) 1 applic MM DAILY [facility] Last Admin: 02/13/17 10:11 Dose: 1 applic Senna (Senna -) 2 tab PO HS PRN PRN Reason: CONSTIPATION Last Admin: 01/29/17 21:09 Dose: 2 tab Tiotropium [place] (Spiriva -) 1 puff IH DAILY [facility] Last Admin: 02/13/17 10:11 Dose: 1 puff Warfarin Sodium (Coumadin -) 3 mg PO DAILY@1800 [facility] Last Admin: 02/12/17 18:02 Dose: 3 mg - Objective Vital Signs: Vital Signs Temperature 97.7 F 02/13/17 05:55 Pulse Rate 89 02/13/17 05:55 Respiratory Rate 20 02/13/17 05:55 Blood Pressure 105/61 02/13/17 05:55 O2 Sat by Pulse Oximetry (%) 99 02/12/17 20:57 Constitutional: Yes: No Distress Cardiovascular: Yes: Pulse Irregular Respiratory: Yes: Diminished Gastrointestinal: Yes: Normal Bowel Sounds, Soft, Abdomen, Obese. No: Tenderness Extremities: Yes: Erythema (decreased) Edema: Yes (decreased) Labs: CBC, BMP 02/13/17 06:00 02/13/17 06:00 INR, PTT INR 2.73 (0.82-1.09) H 02/13/17 06:00 Problem List - Problems (1) A-fib Code(s): I48.91 - UNSPECIFIED ATRIAL FIBRILLATION Qualifiers: (2) Depression, major, severe recurrence Code(s): F33.2 - MAJOR DEPRESSV DISORDER, RECURRENT SEVERE W/O PSYCH FEATURES (3) Primary cancer of ovary with widespread metastatic disease Code(s): C56.9 - MALIGNANT NEOPLASM OF UNSPECIFIED OVARY C80.0 - DISSEMINATED MALIGNANT NEOPLASM, UNSPECIFIED (4) Metabolic encephalopathy Code(s): G93.41 - METABOLIC ENCEPHALOPATHY (5) Intractable back pain Code(s): M54.9 - DORSALGIA, UNSPECIFIED Assessment/Plan PLAN Pain control with Fetanyl patch and Tramadol as needed- on lasix , monitor renal function -- stable on iv Lasix BID iv antibiotics continue with meds hold chemo per Oncology MRSA in sputum monitor CBC decrease Coumadin to 2mg-- INR therapeutic now O 2 as needed, nebs as needed
--- NOTE | 2017-02-13 13:32 | PN ---
Progress Note (short form) - Note Progress Note: Patient seen and examined Lt. foot pain/swelling Last Vital Signs Temp Pulse Resp BP Pulse Ox 97.7 F 89 20 105/61 99 02/13/17 05:55 02/13/17 05:55 02/13/17 05:55 02/13/17 05:55 02/12/17 20:57 Cor: RSR, No murmurs, No gallops Lungs: decreased left base Abd: Soft, Normal bowel sounds, No organomegaly Ext:lymphedema Abnormal Lab Results 02/13/17 02/13/17 02/13/17 06:00 06:00 06:00 RBC 3.22 L Hgb 10.6 L D Hct 31.0 L MCV 96.2 H RDW 18.5 H Monocytes % (Manual) 21 H* Nucleated RBC % 1 H PT with INR 30.80 H INR 2.73 H Sodium 134 L Chloride 90 L Vancomycin Pre-Dose 02/13/17 12:00 RBC Hgb Hct MCV RDW Monocytes % (Manual) Nucleated RBC % PT with INR INR Sodium Chloride Vancomycin Pre-Dose 25.187 H* Home Medication List Medication Instructions Recorded Confirmed Type Levothyroxine [Synthroid -] 75 mcg PO DAILY 10/17/12 01/02/17 History Loratadine [Claritin -] 10 mg PO DAILY 10/17/12 01/02/17 History Metformin HCl [Glucophage] 500 mg PO BID 10/17/12 01/02/17 History [place]-3 Acid Ethyl Esters [Lovaza 1,000 mg PO TID 10/17/12 01/02/17 History -] Insulin Aspart [Novolog Flexpen] 35 unit SQ BID 10/14/16 01/02/17 History Potassium Chloride 10 meq PO DAILY 10/24/16 01/02/17 History Diltiazem Cd [Cardizem Cd -] 300 mg PO DAILY 10/25/16 10/25/16 History Furosemide [Lasix -] 40 mg PO DAILY 01/02/17 01/02/17 History Montelukast Na [Singulair -] 10 mg PO HS 01/02/17 01/02/17 History Active Medications Generic Name Dose Route Start Last Admin Trade Name Freq PRN Reason Stop Dose Admin Acetaminophen 650 mg 01/24/17 09:33 02/12/17 22:26 Tylenol - PO 650 mg Q6H PRN Administration PAIN Albuterol Sulfate 1 amp 02/10/17 09:17 02/13/17 12:39 Ventolin 0.083% Nebulizer Soln - NEB 1 amp Q4H PRN Administration SHORT OF BREATH/WHEEZING Bupropion HCl 150 mg 01/24/17 10:00 02/13/17 10:10 Wellbutrin Xl - PO 150 mg DAILY [facility] Administration Diltiazem HCl 300 mg 01/24/17 10:00 02/13/17 10:10 Cardizem Cd - PO 300 mg DAILY [facility] Administration Docusate Sodium 100 mg 02/05/17 10:23 Colace - PO Q8H PRN CONSTIPATION Furosemide 40 mg 02/11/17 14:00 02/13/17 05:11 Lasix Injection - IVPUSH 40 mg BID@0600,1400 [facility] Administration Glipizide 5 mg 01/24/17 07:00 02/13/17 06:33 Glucotrol - PO 5 mg DAILY@0700 [facility] Administration Guaifenesin 5 ml 01/26/17 20:29 02/10/17 21:05 Diabetic Tussin Dm - PO 5 ml Q6H PRN Administration COUGH Vancomycin HCl 1,500 mg/ 500 mls @ 250 mls/hr 02/11/17 13:00 02/13/17 00:45 Dextrose IVPB 250 mls/hr BID@0100,1300 [facility] Administration Protocol Piperacillin/Tazobactam/Dextrose 100 mls @ 200 mls/hr 02/11/17 12:00 02/13/17 10:10 Zosyn 4.5gm Ivpb (Premix) IVPB 200 mls/hr Q8H-IV [facility] Administration Insulin Aspart 1 vial 01/24/17 16:45 02/13/17 06:33 Novolog Vial Sliding Scale - SQ Not Given ACHS [facility] Protocol Levothyroxine Sodium 75 mcg 01/24/17 07:00 02/13/17 06:33 Synthroid - PO 75 mcg DAILY@0700 [facility] Administration Loratadine 10 mg 01/24/17 10:00 02/13/17 10:10 Claritin - PO 10 mg DAILY [facility] Administration Metformin HCl 500 mg 01/24/17 07:00 02/13/17 06:32 Glucophage - PO 500 mg BIDAC [facility] Administration Miscellaneous 1 each 01/30/17 11:19 01/31/17 02:15 Duragesic Patch Waste TD 1 each PRN PRN Administration PAIN Multi-Ingredient Lotion 1 applic 01/25/17 22:00 02/13/17 10:10 Eucerin (Small Jar) - TP 1 applic BID [facility] Administration Mupirocin 1 applic 02/12/17 10:00 02/13/17 10:10 Bactroban 2% Ointment - TP 1 applic DAILY [facility] Administration [id number]-6-[id number] Ethyl Esters 1 gm 01/23/17 22:00 02/13/17 10:10 Lovaza - PO 1 gm BID [facility] Administration Ondansetron HCl 8 mg 01/23/17 12:21 02/02/17 09:10 Zofran Injection IVPB 8 mg Q12H PRN Administration NAUSEA AND/OR VOMITING Potassium Chloride 20 meq 02/03/17 12:15 02/13/17 10:10 K-Dur - PO 20 meq DAILY [facility] Administration Ranitidine HCl 150 mg 01/24/17 10:00 02/13/17 10:10 Zantac - PO 150 mg DAILY [facility] Administration Saliva Substitute 1 applic 02/09/17 10:00 02/13/17 10:11 Mouthkote Solution - MM 1 applic DAILY [facility] Administration Senna 2 tab 01/29/17 10:48 01/29/17 21:09 Senna - PO 2 tab HS PRN Administration CONSTIPATION Tiotropium [place] 1 puff 01/24/17 10:00 02/13/17 10:11 Spiriva - IH 1 puff DAILY [facility] Administration Warfarin Sodium 3 mg 02/09/17 18:00 02/12/17 18:02 Coumadin - PO 3 mg DAILY@1800 [facility] Administration A/P 61 y/o with metastatic high grade mullerian cancer, serous adenoca s/p carbo/taxol with stable disease, but most recently has been progressing with rising CA 125 and peritoneal implants on imaging. pain control --on tramadol. on fentanyl 12 mcg Q 72hrs, afib On coumadin- monitor INR reduce coumadin to 2mg daily High grade mullerian cancer : on gemzar Lt. foot cellulitis- continue vanco/zosyn
--- NOTE | 2017-02-13 15:06 | PN ---
Teaching Attending Note Name of Resident: Daniel Doan ATTENDING PHYSICIAN STATEMENT I saw and evaluated the patient. I reviewed the resident's note and discussed the case with the resident. I agree with the resident's findings and plan as documented. SUBJECTIVE:ID Vanco and Zosyn OBJECTIVE:Plantar wound ASSESSMENT AND PLAN: Microbiology 02/11/17 16:50 Foot - Left Lateral Gram Stain - Final 02/11/17 16:50 Foot - Left Lateral Wound Culture - Preliminary Staphylococcus Latex Coag Pos Laboratory Tests 02/13/17 02/13/17 02/13/17 06:00 06:00 12:00 WBC 4.0 D Hgb 10.6 L D Hct 31.0 L Plt Count 190 BUN 10 Creatinine 0.8 Vancomycin Pre-Dose 25.187 H* Assessment LE wound likely MRSA Level high today Plan Stop Vanco and Kerrysyn now Check sensitivities Level Vanco in am the continue if MRSA positive Amadou CHOW
--- NOTE | 2017-02-13 16:16 | PN ---
Progress Note (short form) - Note Progress Note: OOB to chair. Appears comfortable on RA. Continues with cough with yellow/white sputum. No hemoptysis. Intake & Output 02/10/17 02/11/17 02/12/17 02/13/17 23:59 23:59 23:59 23:59 Intake Total 670 6650 827 6740 Output Total 1 1 Balance 670 3070 443 9206 Last Vital Signs Temp Pulse Resp BP Pulse Ox 97.2 F L 99 H 20 139/69 99 02/13/17 14:01 02/13/17 14:01 02/13/17 14:01 02/13/17 14:01 02/13/17 11:00 Active Medications Acetaminophen (Tylenol -) 650 mg PO Q6H PRN PRN Reason: PAIN Last Admin: 02/12/17 22:26 Dose: 650 mg Albuterol Sulfate (Ventolin 0.083% Nebulizer Soln -) 1 amp NEB Q4H PRN PRN Reason: SHORT OF BREATH/WHEEZING Last Admin: 02/13/17 12:39 Dose: 1 amp Bupropion HCl (Wellbutrin Xl -) 150 mg PO DAILY [facility] Last Admin: 02/13/17 10:10 Dose: 150 mg Diltiazem HCl (Cardizem Cd -) 300 mg PO DAILY [facility] Last Admin: 02/13/17 10:10 Dose: 300 mg Docusate Sodium (Colace -) 100 mg PO Q8H PRN PRN Reason: CONSTIPATION Furosemide (Lasix Injection -) 40 mg IVPUSH BID@0600,1400 [facility] Last Admin: 02/13/17 05:11 Dose: 40 mg Glipizide (Glucotrol -) 5 mg PO DAILY@0700 [facility] Last Admin: 02/13/17 06:33 Dose: 5 mg Guaifenesin (Diabetic Tussin Dm -) 5 ml PO Q6H PRN PRN Reason: COUGH Last Admin: 02/10/17 21:05 Dose: 5 ml Insulin Aspart (Novolog Vial Sliding Scale -) 1 vial SQ ACHS [facility] PRN Reason: Protocol Last Admin: 02/13/17 16:00 Dose: Not Given Levothyroxine Sodium (Synthroid -) 75 mcg PO DAILY@0700 [facility] Last Admin: 02/13/17 06:33 Dose: 75 mcg Loratadine (Claritin -) 10 mg PO DAILY [facility] Last Admin: 02/13/17 10:10 Dose: 10 mg Metformin HCl (Glucophage -) 500 mg PO BIDAC [facility] Last Admin: 02/13/17 06:32 Dose: 500 mg Miscellaneous (Duragesic Patch Waste) 1 each TD PRN PRN PRN Reason: PAIN Last Admin: 01/31/17 02:15 Dose: 1 each Multi-Ingredient Lotion (Eucerin (Small Jar) -) 1 applic TP BID [facility] Last Admin: 02/13/17 10:10 Dose: 1 applic Multi-Ingredient Ointment (Zinc Oxide) 1 applic TP BID [facility] Mupirocin (Bactroban 2% Ointment -) 1 applic TP DAILY [facility] Last Admin: 02/13/17 10:10 Dose: 1 applic [id number]-4-[id number] Ethyl Esters (Lovaza -) 1 gm PO BID [facility] Last Admin: 02/13/17 10:10 Dose: 1 gm Ondansetron HCl (Zofran Injection) 8 mg IVPB Q12H PRN PRN Reason: NAUSEA AND/OR VOMITING Last Admin: 02/02/17 09:10 Dose: 8 mg Potassium Chloride (K-Dur -) 20 meq PO DAILY [facility] Last Admin: 02/13/17 10:10 Dose: 20 meq Ranitidine HCl (Zantac -) 150 mg PO DAILY [facility] Last Admin: 02/13/17 10:10 Dose: 150 mg Saliva Substitute (Mouthkote Solution -) 1 applic MM DAILY [facility] Last Admin: 02/13/17 10:11 Dose: 1 applic Senna (Senna -) 2 tab PO HS PRN PRN Reason: CONSTIPATION Last Admin: 01/29/17 21:09 Dose: 2 tab Tiotropium [place] (Spiriva -) 1 puff IH DAILY [facility] Last Admin: 02/13/17 10:11 Dose: 1 puff Warfarin Sodium (Coumadin -) 2 mg PO DAILY@1800 [facility] Constitutional: Yes: No Distress, Obese Eyes: Yes: Conjunctiva Clear, EOM Intact HENT: Yes: Atraumatic, Normocephalic Neck: Yes: Supple, Trachea Midline Cardiovascular: Yes: Regular Rate and Rhythm Respiratory: Yes: Cough, Diminished, On Nasal O2. No: Accessory Muscle Use, Rhonchi, Stridor, Wheezes ...Inspection: Yes: WNL ...Clubbing: No Gastrointestinal: Yes: Normal Bowel Sounds, Soft, Abdomen, Obese Renal/: Yes: WNL Musculoskeletal: Yes: Back Pain Extremities: Yes: WNL Edema: Yes Peripheral Pulses WNL: Yes Integumentary: Yes: WNL Neurological: Yes: WNL, Alert, Oriented ...Motor Strength: WNL Psychiatric: Yes: WNL, Alert, Oriented Labs: Laboratory Results - last 24 hr 02/12/17 02/12/17 02/13/17 17:49 21:11 05:28 WBC RBC Hgb Hct MCV MCH MCHC RDW Plt Count MPV Total Counted Neutrophils % Neutrophils % (Manual) Lymphocytes % Lymphocytes % (Manual) Monocytes % (Manual) Myelocytes % (Man) Nucleated RBC % Platelet Estimate PT with INR INR Sodium Potassium Chloride Carbon Dioxide Anion Gap BUN Creatinine POC Glucometer 130 106 97 Random Glucose Calcium Vancomycin Pre-Dose 02/13/17 02/13/17 02/13/17 06:00 06:00 06:00 WBC 4.0 D RBC 3.22 L Hgb 10.6 L D Hct 31.0 L MCV 96.2 H MCH 32.8 MCHC 34.2 RDW 18.5 H Plt Count 190 MPV 8.6 Total Counted 100 Neutrophils % No Result Required. Neutrophils % (Manual) 61 Lymphocytes % No Result Required. Lymphocytes % (Manual) 16 Monocytes % (Manual) 21 H* Myelocytes % (Man) 2 D Nucleated RBC % 1 H Platelet Estimate Adequate PT with INR 30.80 H INR 2.73 H Sodium 134 L Potassium 3.6 Chloride 90 L Carbon Dioxide 31 Anion Gap 13 BUN 10 Creatinine 0.8 POC Glucometer Random Glucose 96 Calcium 9.2 Vancomycin Pre-Dose 02/13/17 02/13/17 11:32 12:00 WBC RBC Hgb Hct MCV MCH MCHC RDW Plt Count MPV Total Counted Neutrophils % Neutrophils % (Manual) Lymphocytes % Lymphocytes % (Manual) Monocytes % (Manual) Myelocytes % (Man) Nucleated RBC % Platelet Estimate PT with INR INR Sodium Potassium Chloride Carbon Dioxide Anion Gap BUN Creatinine POC Glucometer 116 Random Glucose Calcium Vancomycin Pre-Dose 25.187 H* Problem List - Problems (1) A-fib Code(s): I48.91 - UNSPECIFIED ATRIAL FIBRILLATION Qualifiers: (2) Intractable back pain Code(s): M54.9 - DORSALGIA, UNSPECIFIED (3) Hypothyroid Code(s): E03.9 - HYPOTHYROIDISM, UNSPECIFIED (4) Lymphedema Code(s): I89.0 - LYMPHEDEMA, NOT ELSEWHERE CLASSIFIED (5) Anemia Code(s): D64.9 - ANEMIA, UNSPECIFIED (6) Anxiety and depression Code(s): F41.9 - ANXIETY DISORDER, UNSPECIFIED F32.9 - MAJOR DEPRESSIVE DISORDER, SINGLE EPISODE, UNSPECIFIED (7) Diabetes Code(s): E11.9 - TYPE 2 DIABETES MELLITUS WITHOUT COMPLICATIONS Qualifiers: Diabetes mellitus type: type 2 Diabetes mellitus complication status: without complication (8) HTN (hypertension) Code(s): I10 - ESSENTIAL (PRIMARY) HYPERTENSION Qualifiers: (9) Morbidly obese Code(s): E66.01 - MORBID (SEVERE) OBESITY DUE TO EXCESS CALORIES (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 Code(s): C56.9 - MALIGNANT NEOPLASM OF UNSPECIFIED OVARY C80.0 - DISSEMINATED MALIGNANT NEOPLASM, UNSPECIFIED (11) Pulmonary nodules/lesions, multiple Code(s): R91.8 - OTHER NONSPECIFIC ABNORMAL FINDING OF LUNG FIELD (12) SOB (shortness of breath) Code(s): R06.02 - SHORTNESS OF BREATH Assessment/Plan ABX per ID O2 as needed Continue support care Coumadin Dr An Problem List - Problems (1) A-fib Code(s): I48.91 - UNSPECIFIED ATRIAL FIBRILLATION Qualifiers: (2) Intractable back pain Code(s): M54.9 - DORSALGIA, UNSPECIFIED (3) Hypothyroid Code(s): E03.9 - HYPOTHYROIDISM, UNSPECIFIED (4) Lymphedema Code(s): I89.0 - LYMPHEDEMA, NOT ELSEWHERE CLASSIFIED (5) Anemia Code(s): D64.9 - ANEMIA, UNSPECIFIED (6) Anxiety and depression Code(s): F41.9 - ANXIETY DISORDER, UNSPECIFIED F32.9 - MAJOR DEPRESSIVE DISORDER, SINGLE EPISODE, UNSPECIFIED (7) Diabetes Code(s): E11.9 - TYPE 2 DIABETES MELLITUS WITHOUT COMPLICATIONS Qualifiers: Diabetes mellitus type: type 2 Diabetes mellitus complication status: without complication (8) HTN (hypertension) Code(s): I10 - ESSENTIAL (PRIMARY) HYPERTENSION Qualifiers: (9) Morbidly obese Code(s): E66.01 - MORBID (SEVERE) OBESITY DUE TO EXCESS CALORIES (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 Code(s): C56.9 - MALIGNANT NEOPLASM OF UNSPECIFIED OVARY C80.0 - DISSEMINATED MALIGNANT NEOPLASM, UNSPECIFIED (11) Pulmonary nodules/lesions, multiple Code(s): R91.8 - OTHER NONSPECIFIC ABNORMAL FINDING OF LUNG FIELD (12) SOB (shortness of breath) Code(s): R06.02 - SHORTNESS OF BREATH
[2017-02-13] MEDS: ACETAMINOPHEN 325 MG TABLET (FP) PO PRN ×2 (16:22→22:50)
[2017-02-13] MEDS: WARFARIN NA 2 MG TABLET (UD) PO SCH (17:54)
[2017-02-13] MEDS ORDERED: FENTANYL PATCH WASTE MC PRN (19:44)
[2017-02-13] MEDS ORDERED: traMADol HCL 50 MG TABLET PO PRN (19:45)
[2017-02-13] MEDS ORDERED: fentaNYL 12mcg/hr PATCH.TD72 TD SCH (19:45)
[2017-02-13] MEDS ORDERED: INSULIN (NOVOLOG) ASPART 100 UNITS/ML 10ML VIAL ONE (21:36)
[2017-02-13] MEDS: ZINC OXIDE 20% TOPICAL OINTMENT 30 GM TUBE TP SCH (22:06)
[2017-02-14] MEDS: glipiZIDE 5 MG TABLET (FP) PO SCH (06:36)
[2017-02-14] MEDS: LEVOTHYROXINE NA 75 MCG TABLET (FP) PO SCH (06:36)
[2017-02-14] MEDS: FUROSEMIDE 40 MG/4 ML INJECTABLE VIAL IVPUSH SCH ×2 (06:36→14:30)
[2017-02-14] MEDS: metFORMIN HCL 500 MG TABLET (FP) PO SCH ×2 (06:36→17:30)
[2017-02-14] MEDS: INSULIN SLIDING SCALE (NOVOLOG) 1 VIAL SQ SCH ×4 (07:34→21:45)
[2017-02-14 08:20] LABS: INR 3.52 (0.82-1.09); PROTHROMBIN TIME (PATIENT) 39.8 SEC (9.98-11.88)
[2017-02-14] MEDS: TIOTROPIUM BROMIDE 18 MCG/INH (DEVICE W/ 5 CAPSULES) IH SCH (10:00)
--- NOTE | 2017-02-14 10:01 | PN ---
Progress Note (short form) - Note Progress Note: patient seen and examined. sitting in chair Chart reviewed Feels weak otherwise no specific complaints Vital Signs Temp 97.8 F 02/14/17 05:20 Pulse 96 H 02/14/17 06:49 Resp 18 02/14/17 05:20 BP 138/71 02/14/17 06:49 Pulse Ox 99 02/13/17 22:20 Intake & Output 02/13/17 02/13/17 02/14/17 11:59 23:59 11:59 Intake Total 2500 150 Output Total 1 Balance 2499 150 Intake: IV 500 Portacath 500 IVPB 1300 Oral 700 150 Output: Gastric Drainage 1 Other: Voiding Method Toilet Toilet Toilet # Unmeasured Voids Void 1 1 Bowel Movement Yes No # Bowel Movements 1 Active Medications Acetaminophen (Tylenol -) 650 mg PO Q6H PRN PRN Reason: PAIN Last Admin: 02/13/17 22:50 Dose: 650 mg Albuterol Sulfate (Ventolin 0.083% Nebulizer Soln -) 1 amp NEB Q4H PRN PRN Reason: SHORT OF BREATH/WHEEZING Last Admin: 02/13/17 21:49 Dose: 1 amp Bupropion HCl (Wellbutrin Xl -) 150 mg PO DAILY [facility] Last Admin: 02/13/17 10:10 Dose: 150 mg Diltiazem HCl (Cardizem Cd -) 300 mg PO DAILY [facility] Last Admin: 02/13/17 10:10 Dose: 300 mg Docusate Sodium (Colace -) 100 mg PO Q8H PRN PRN Reason: CONSTIPATION Fentanyl (Duragesic 12mcg Patch -) 1 patch TD Q72H [facility] Furosemide (Lasix Injection -) 40 mg IVPUSH BID@0600,1400 [facility] Last Admin: 02/14/17 06:36 Dose: 40 mg Glipizide (Glucotrol -) 5 mg PO DAILY@0700 [facility] Last Admin: 02/14/17 06:36 Dose: 5 mg Guaifenesin (Diabetic Tussin Dm -) 5 ml PO Q6H PRN PRN Reason: COUGH Last Admin: 02/10/17 21:05 Dose: 5 ml Insulin Aspart (Novolog Vial Sliding Scale -) 1 vial SQ ACHS [facility] PRN Reason: Protocol Last Admin: 02/14/17 07:34 Dose: Not Given Levothyroxine Sodium (Synthroid -) 75 mcg PO DAILY@0700 [facility] Last Admin: 02/14/17 06:36 Dose: 75 mcg Loratadine (Claritin -) 10 mg PO DAILY [facility] Last Admin: 02/13/17 10:10 Dose: 10 mg Metformin HCl (Glucophage -) 500 mg PO BIDAC [facility] Last Admin: 02/14/17 06:36 Dose: 500 mg Miscellaneous (Duragesic Patch Waste) 1 each TD PRN PRN PRN Reason: PAIN Last Admin: 01/31/17 02:15 Dose: 1 each Miscellaneous (Duragesic Patch Waste) 1 each MC PRN PRN PRN Reason: PAIN Multi-Ingredient Lotion (Eucerin (Small Jar) -) 1 applic TP BID [facility] Last Admin: 02/13/17 22:07 Dose: 1 applic Multi-Ingredient Ointment (Zinc Oxide) 1 applic TP BID [facility] Last Admin: 02/13/17 22:06 Dose: 1 applic Mupirocin (Bactroban 2% Ointment -) 1 applic TP DAILY [facility] Last Admin: 02/13/17 10:10 Dose: 1 applic [id number]-[id number] Ethyl Esters (Lovaza -) 1 gm PO BID [facility] Last Admin: 02/13/17 22:05 Dose: 1 gm Ondansetron HCl (Zofran Injection) 8 mg IVPB Q12H PRN PRN Reason: NAUSEA AND/OR VOMITING Last Admin: 02/02/17 09:10 Dose: 8 mg Potassium Chloride (K-Dur -) 20 meq PO DAILY [facility] Last Admin: 02/13/17 10:10 Dose: 20 meq Ranitidine HCl (Zantac -) 150 mg PO DAILY [facility] Last Admin: 02/13/17 10:10 Dose: 150 mg Saliva Substitute (Mouthkote Solution -) 1 applic MM DAILY [facility] Last Admin: 02/13/17 10:11 Dose: 1 applic Senna (Senna -) 2 tab PO HS PRN PRN Reason: CONSTIPATION Last Admin: 01/29/17 21:09 Dose: 2 tab Tiotropium [place] (Spiriva -) 1 puff IH DAILY [facility] Last Admin: 02/13/17 10:11 Dose: 1 puff Tramadol HCl (Ultram -) 50 mg PO Q6H PRN PRN Reason: PAIN Warfarin Sodium (Coumadin -) 2 mg PO DAILY@1800 [facility] Last Admin: 02/13/17 17:54 Dose: 2 mg CBC, BMP 02/13/17 06:00 02/13/17 06:00 Microbiology 02/10/17 16:30 Blood Culture - Preliminary Blood - Peripheral Venous NO GROWTH OBTAINED AFTER 72 HOURS, INCUBATION TO CONTINUE FOR 2 DAYS. 02/10/17 15:40 Blood Culture - Preliminary Blood - Neeta Cath NO GROWTH OBTAINED AFTER 72 HOURS, INCUBATION TO CONTINUE FOR 2 DAYS. 02/11/17 16:50 Gram Stain - Final Foot - Left Lateral Wound Culture - Preliminary Staphylococcus Latex Coag Pos Physical exam Constitutional: Yes: No Distress--chronic ill appearance, obese Cardiovascular: Yes: Pulse Irregular Respiratory: Yes: Diminished at bases Gastrointestinal: Yes: Normal Bowel Sounds, Soft, Abdomen, Obese. No: Tenderness Extremities: Yes: Erythema Edema: Yes (decreased) neuro--alert and awake Problem List - Problems (1) A-fib Code(s): I48.91 - UNSPECIFIED ATRIAL FIBRILLATION Qualifiers: (2) Depression, major, severe recurrence Code(s): F33.2 - MAJOR DEPRESSV DISORDER, RECURRENT SEVERE W/O PSYCH FEATURES (3) Primary cancer of ovary with widespread metastatic disease Code(s): C56.9 - MALIGNANT NEOPLASM OF UNSPECIFIED OVARY C80.0 - DISSEMINATED MALIGNANT NEOPLASM, UNSPECIFIED (4) Metabolic encephalopathy Code(s): G93.41 - METABOLIC ENCEPHALOPATHY (5) Intractable back pain Code(s): M54.9 - DORSALGIA, UNSPECIFIED Assessment/Plan clinically stable Multiple problems as listed Advanced cancer MRSA positive sputum wound cultures pending Vanco dosing per level Hold Coumadin today Monitor INR/labs MRSA precautions in place Discussed with nursing staff Condition remains guarded We'll follow
[2017-02-14] MEDS: LYTES/YERBA SANTA 240 ML BOTTLE MM SCH (10:45)
[2017-02-14] MEDS: fentaNYL 12mcg/hr PATCH.TD72 TD SCH (10:45)
[2017-02-14] MEDS: POTASSIUM CHLORIDE TABS 20 MEQ TABLET.ER (FP) PO SCH (10:45)
[2017-02-14] MEDS: LORATADINE 10 MG TABLET PO SCH (10:45)
[2017-02-14] MEDS: OMEGA-3 ACID ETHYL ESTERS (FATTY-ACIDS) 1 GM CAPSULE (FP) PO SCH ×2 (10:45→21:46)
[2017-02-14] MEDS: MINERAL OIL/PETROLAT/WATER TOPICAL CREAM 113 GM JAR TP SCH ×2 (10:45→21:49)
[2017-02-14] MEDS: RANITIDINE HCL 150 MG TABLET (FP) PO SCH (10:45)
[2017-02-14] MEDS: ZINC OXIDE 20% TOPICAL OINTMENT 30 GM TUBE TP SCH ×2 (10:45→21:49)
[2017-02-14] MEDS: MUPIROCIN 2% TOPICAL OINTMENT 22 GM TUBE TP SCH (11:19)
[2017-02-14] MEDS: ACETAMINOPHEN 325 MG TABLET (FP) PO PRN ×2 (15:42→21:46)
--- NOTE | 2017-02-14 19:14 | PN ---
Progress Note (short form) - Note Progress Note: Patient seen and examined Lt. foot pain/swelling c/o cough/phlegm Last Vital Signs Temp Pulse Resp BP Pulse Ox 97.8 F 89 18 129/70 96 02/14/17 17:40 02/14/17 17:40 02/14/17 17:40 02/14/17 17:40 02/14/17 09:00 Cor: RSR, No murmurs, No gallops Lungs: decreased left base Abd: Soft, Normal bowel sounds, No organomegaly Ext:lymphedema Abnormal Lab Results 02/14/17 02/14/17 06:30 09:20 PT with INR 39.80 H INR 3.52 H Vancomycin Pre-Dose 20.631 H* Active Medications Generic Name Dose Route Start Last Admin Trade Name Freq PRN Reason Stop Dose Admin Acetaminophen 650 mg 01/24/17 09:33 02/14/17 15:42 Tylenol - PO 650 mg Q6H PRN Administration PAIN Albuterol Sulfate 1 amp 02/10/17 09:17 02/13/17 21:49 Ventolin 0.083% Nebulizer Soln - NEB 1 amp Q4H PRN Administration SHORT OF BREATH/WHEEZING Bupropion HCl 150 mg 01/24/17 10:00 02/14/17 10:45 Wellbutrin Xl - PO 150 mg DAILY VIRGILIO Administration Diltiazem HCl 300 mg 01/24/17 10:00 02/14/17 10:45 Cardizem Cd - PO 300 mg DAILY VIRGILIO Administration Docusate Sodium 100 mg 02/05/17 10:23 Colace - PO Q8H PRN CONSTIPATION Fentanyl 1 patch 02/14/17 10:00 02/14/17 10:45 Duragesic 12mcg Patch - TD 1 patch Q72H VIRGILIO Administration Furosemide 40 mg 02/11/17 14:00 02/14/17 14:30 Lasix Injection - IVPUSH 40 mg BID@0600,1400 VIRGILIO Administration Glipizide 5 mg 01/24/17 07:00 02/14/17 06:36 Glucotrol - PO 5 mg DAILY@0700 VIRGILIO Administration Guaifenesin 5 ml 01/26/17 20:29 02/10/17 21:05 Diabetic Tussin Dm - PO 5 ml Q6H PRN Administration COUGH Insulin Aspart 1 vial 01/24/17 16:45 02/14/17 17:30 Novolog Vial Sliding Scale - SQ Not Given ACHS VIRGILIO Protocol Levothyroxine Sodium 75 mcg 01/24/17 07:00 02/14/17 06:36 Synthroid - PO 75 mcg DAILY@0700 VIRGILIO Administration Loratadine 10 mg 01/24/17 10:00 02/14/17 10:45 Claritin - PO 10 mg DAILY VIRGILIO Administration Metformin HCl 500 mg 01/24/17 07:00 02/14/17 17:30 Glucophage - PO 500 mg BIDAC VIRGILIO Administration Miscellaneous 1 each 01/30/17 11:19 01/31/17 02:15 Duragesic Patch Waste TD 1 each PRN PRN Administration PAIN Miscellaneous 1 each 02/13/17 19:44 Duragesic Patch Waste MC PRN PRN PAIN Multi-Ingredient Lotion 1 applic 01/25/17 22:00 02/14/17 10:45 Eucerin (Small Jar) - TP 1 applic BID VIRGILIO Administration Multi-Ingredient Ointment 1 applic 02/13/17 22:00 02/14/17 10:45 Zinc Oxide TP 1 applic BID VIRGILIO Administration Mupirocin 1 applic 02/12/17 10:00 02/14/17 11:19 Bactroban 2% Ointment - TP 1 applic DAILY VIRGILIO Administration Foyhw-2-Vove Ethyl Esters 1 gm 01/23/17 22:00 02/14/17 10:45 Lovaza - PO 1 gm BID VIRGILIO Administration Ondansetron HCl 8 mg 01/23/17 12:21 02/02/17 09:10 Zofran Injection IVPB 8 mg Q12H PRN Administration NAUSEA AND/OR VOMITING Potassium Chloride 20 meq 02/03/17 12:15 02/14/17 10:45 K-Dur - PO 20 meq DAILY VIRGILIO Administration Ranitidine HCl 150 mg 01/24/17 10:00 02/14/17 10:45 Zantac - PO 150 mg DAILY VIRGILIO Administration Saliva Substitute 1 applic 02/09/17 10:00 02/14/17 10:45 Mouthkote Solution - MM 1 applic DAILY VIRGILIO Administration Senna 2 tab 01/29/17 10:48 01/29/17 21:09 Senna - PO 2 tab HS PRN Administration CONSTIPATION Tiotropium [place] 1 puff 01/24/17 10:00 02/14/17 10:00 Spiriva - IH 1 puff DAILY VIRGILIO Administration Tramadol HCl 50 mg 02/13/17 19:45 Ultram - PO Q6H PRN PAIN Warfarin Sodium 2 mg 02/13/17 18:00 02/13/17 17:54 Coumadin - PO 2 mg DAILY@1800 VIRGILIO Administration A/P 61 y/o with metastatic high grade mullerian cancer, serous adenoca s/p carbo/taxol with stable disease, but most recently has been progressing with rising CA 125 and peritoneal implants on imaging. pain control --on tramadol. on fentanyl 12 mcg Q 72hrs, afib On coumadin-being held monitor INR High grade mullerian cancer : on gemzar Lt. foot cellulitis- continue vanco---per levels ID to f/u on sensitivities of wound culture discussed overall suituation with patients daughter
[2017-02-14 20:45] LABS: MCH 32.5 pg (25.7-33.7); MCHC 33.6 g/dl (32.0-36.0); MEAN CELL VOLUME 96.9 fl (80-96); MEAN PLT VOLUME 8.7 fl (7.5-11.1); PLATELET COUNT 167 K/MM3 (134-434); WHITE BLOOD COUNT 5.2 K/mm3 (4.0-10.0)
[2017-02-14 21:19] LABS: ALBUMIN 2.3 g/dl (3.4-5.0); ANION GAP 9 (8-16); BILIRUBIN,TOTAL 0.5 mg/dL (0.2-1.0); CALCIUM 8.6 mg/dL (8.5-10.1); CO2 32 mmol/L (21-32); CREATININE 0.8 mg/dL (0.55-1.02); GLUCOSE,RANDOM 129 mg/dL (74-106); SGOT/AST 147 U/L (15-37); SGPT/ALT 84 U/L (12-78)
[2017-02-14 21:21] LABS: ALK PHOS 165 U/L (45-117); TOT PROT 6.2 g/dl (6.4-8.2)
[2017-02-14 21:39] LABS: METAMYELOCYTE 2 % (0-2); PLATELET ESTIMATE ADEQUATE (NORMAL); TOTAL CELLS COUNTED 100
[2017-02-14 21:41] LABS: HYPOCHROMIA 1+; MICROCYTOSIS 1+; POLYCHROMASIA 1+
[2017-02-14] MEDS ORDERED: POTASSIUM CHLORIDE TABS 20 MEQ TABLET.ER (FP) PO ONE (22:15)
[2017-02-14] MEDS: ALBUTEROL SO4 0.083% IH SOL 2.5 MG/3 ML VIAL.NEB. NEB PRN (22:15)
[2017-02-15] MEDS ORDERED: POTASSIUM CHLORIDE TABS 20 MEQ TABLET.ER (FP) PO ONE (02:15)
[2017-02-15] MEDS: FUROSEMIDE 40 MG/4 ML INJECTABLE VIAL IVPUSH SCH ×2 (06:24→14:37)
[2017-02-15] MEDS: INSULIN SLIDING SCALE (NOVOLOG) 1 VIAL SQ SCH ×4 (06:24→22:23)
[2017-02-15] MEDS: LEVOTHYROXINE NA 75 MCG TABLET (FP) PO SCH (06:25)
[2017-02-15] MEDS: metFORMIN HCL 500 MG TABLET (FP) PO SCH ×2 (06:25→17:05)
[2017-02-15] MEDS: glipiZIDE 5 MG TABLET (FP) PO SCH (06:25)
[2017-02-15] MEDS: ACETAMINOPHEN 325 MG TABLET (FP) PO PRN ×2 (09:06→22:10)
[2017-02-15] MEDS ORDERED: PT OWN MED DRAWER 7, Y5N ONE ×2 (09:37→10:23)
[2017-02-15 09:39] LABS: INR 3.12 (0.82-1.09); PROTHROMBIN TIME (PATIENT) 35.3 SEC (9.98-11.88)
[2017-02-15] MEDS: RANITIDINE HCL 150 MG TABLET (FP) PO SCH (09:40)
[2017-02-15] MEDS: LORATADINE 10 MG TABLET PO SCH (09:40)
[2017-02-15] MEDS: OMEGA-3 ACID ETHYL ESTERS (FATTY-ACIDS) 1 GM CAPSULE (FP) PO SCH ×2 (09:40→22:10)
[2017-02-15 09:41] LABS: ACTIVATED PTT 46.4 SECONDS (26.9-34.4)
[2017-02-15] MEDS: MUPIROCIN 2% TOPICAL OINTMENT 22 GM TUBE TP SCH (09:41)
[2017-02-15] MEDS: MINERAL OIL/PETROLAT/WATER TOPICAL CREAM 113 GM JAR TP SCH ×2 (09:41→22:11)
[2017-02-15] MEDS: LYTES/YERBA SANTA 240 ML BOTTLE MM SCH (09:42)
[2017-02-15] MEDS: POTASSIUM CHLORIDE TABS 20 MEQ TABLET.ER (FP) PO SCH (09:42)
[2017-02-15] MEDS: ZINC OXIDE 20% TOPICAL OINTMENT 30 GM TUBE TP SCH ×2 (09:43→22:11)
[2017-02-15 09:53] LABS: ALBUMIN 2.4 g/dl (3.4-5.0); ANION GAP 8 (8-16); BILIRUBIN,TOTAL 0.6 mg/dL (0.2-1.0); CO2 33 mmol/L (21-32); CREATININE 0.9 mg/dL (0.55-1.02); GLUCOSE,RANDOM 114 mg/dL (74-106); SGOT/AST 143 U/L (15-37); SGPT/ALT 86 U/L (12-78); TOT PROT 6.4 g/dl (6.4-8.2)
[2017-02-15 09:54] LABS: ALK PHOS 174 U/L (45-117)
[2017-02-15] MEDS: TIOTROPIUM BROMIDE 18 MCG/INH (DEVICE W/ 5 CAPSULES) IH SCH (10:20)
[2017-02-15 10:30] LABS: MCH 33.5 pg (25.7-33.7); MCHC 34.2 g/dl (32.0-36.0); MEAN CELL VOLUME 97.9 fl (80-96); PLATELET COUNT 155 K/MM3 (134-434); RDW 18.9 % (11.6-15.6); WHITE BLOOD COUNT 5.5 K/mm3 (4.0-10.0)
--- NOTE | 2017-02-15 10:41 | PN ---
Progress Note (short form) - Note Progress Note: OOB to chair. Appears comfortable on RA. (+) Nasal congestion. Continues with productive cough with yellow/green/white sputum. No hemoptysis. Intake & Output 02/12/17 02/13/17 02/14/17 02/15/17 23:59 23:59 23:59 23:59 Intake Total 300 2650 420 Output Total 1 1 Balance 299 2649 420 Last Vital Signs Temp Pulse Resp BP Pulse Ox 98.2 F 92 H 18 102/53 100 02/15/17 07:00 02/15/17 07:00 02/15/17 07:00 02/15/17 07:00 02/14/17 21:00 Active Medications Acetaminophen (Tylenol -) 650 mg PO Q6H PRN PRN Reason: PAIN Last Admin: 02/15/17 09:06 Dose: 650 mg Bupropion HCl (Wellbutrin Xl -) 150 mg PO DAILY REPLACED BY [facility] Last Admin: 02/15/17 09:40 Dose: 150 mg Diltiazem HCl (Cardizem Cd -) 300 mg PO DAILY REPLACED BY [facility] Last Admin: 02/15/17 09:41 Dose: 300 mg Docusate Sodium (Colace -) 100 mg PO Q8H PRN PRN Reason: CONSTIPATION Fentanyl (Duragesic 12mcg Patch -) 1 patch TD Q72H REPLACED BY [facility] Last Admin: 02/14/17 10:45 Dose: 1 patch Furosemide (Lasix Injection -) 40 mg IVPUSH BID@0600,1400 REPLACED BY [facility] Last Admin: 02/15/17 06:24 Dose: 40 mg Glipizide (Glucotrol -) 5 mg PO DAILY@0700 REPLACED BY [facility] Last Admin: 02/15/17 06:25 Dose: 5 mg Guaifenesin (Diabetic Tussin Dm -) 5 ml PO Q6H PRN PRN Reason: COUGH Last Admin: 02/10/17 21:05 Dose: 5 ml Insulin Aspart (Novolog Vial Sliding Scale -) 1 vial SQ ACHS REPLACED BY [facility] PRN Reason: Protocol Last Admin: 02/15/17 06:24 Dose: Not Given Levothyroxine Sodium (Synthroid -) 75 mcg PO DAILY@0700 REPLACED BY [facility] Last Admin: 02/15/17 06:25 Dose: 75 mcg Loratadine (Claritin -) 10 mg PO DAILY REPLACED BY [facility] Last Admin: 02/15/17 09:40 Dose: 10 mg Metformin HCl (Glucophage -) 500 mg PO BIDAC REPLACED BY [facility] Last Admin: 02/15/17 06:25 Dose: 500 mg Miscellaneous (Duragesic Patch Waste) 1 each TD PRN PRN PRN Reason: PAIN Last Admin: 01/31/17 02:15 Dose: 1 each Miscellaneous (Duragesic Patch Waste) 1 each MC PRN PRN PRN Reason: PAIN Multi-Ingredient Lotion (Eucerin (Small Jar) -) 1 applic TP BID REPLACED BY [facility] Last Admin: 02/15/17 09:41 Dose: 1 applic Multi-Ingredient Ointment (Zinc Oxide) 1 applic TP BID REPLACED BY [facility] Last Admin: 02/15/17 09:43 Dose: 1 applic Mupirocin (Bactroban 2% Ointment -) 1 applic TP DAILY REPLACED BY [facility] Last Admin: 02/15/17 09:41 Dose: 1 applic [id number]-[id number] Ethyl Esters (Lovaza -) 1 gm PO BID REPLACED BY [facility] Last Admin: 02/15/17 09:40 Dose: 1 gm Ondansetron HCl (Zofran Injection) 8 mg IVPB Q12H PRN PRN Reason: NAUSEA AND/OR VOMITING Last Admin: 02/02/17 09:10 Dose: 8 mg Potassium Chloride (K-Dur -) 20 meq PO DAILY REPLACED BY [facility] Last Admin: 02/15/17 09:42 Dose: 20 meq Ranitidine HCl (Zantac -) 150 mg PO DAILY REPLACED BY [facility] Last Admin: 02/15/17 09:40 Dose: 150 mg Saliva Substitute (Mouthkote Solution -) 1 applic MM DAILY REPLACED BY [facility] Last Admin: 02/15/17 09:42 Dose: 1 applic Senna (Senna -) 2 tab PO HS PRN PRN Reason: CONSTIPATION Last Admin: 01/29/17 21:09 Dose: 2 tab Tiotropium [place] (Spiriva -) 1 puff IH DAILY REPLACED BY [facility] Last Admin: 02/15/17 10:20 Dose: 1 puff Tramadol HCl (Ultram -) 50 mg PO Q6H PRN PRN Reason: PAIN Warfarin Sodium (Coumadin -) 2 mg PO DAILY@1800 REPLACED BY [facility] Last Admin: 02/13/17 17:54 Dose: 2 mg Constitutional: Yes: No Distress, Obese Eyes: Yes: Conjunctiva Clear, EOM Intact HENT: Yes: Atraumatic, Normocephalic Neck: Yes: Supple, Trachea Midline Cardiovascular: Yes: Regular Rate and Rhythm Respiratory: Yes: Cough, Diminished, On Nasal O2. No: Accessory Muscle Use, Rhonchi, Stridor, Wheezes ...Inspection: Yes: WNL ...Clubbing: No Gastrointestinal: Yes: Normal Bowel Sounds, Soft, Abdomen, Obese Renal/: Yes: WNL Musculoskeletal: Yes: Back Pain Extremities: Yes: WNL Edema: Yes Peripheral Pulses WNL: Yes Integumentary: Yes: WNL Neurological: Yes: WNL, Alert, Oriented ...Motor Strength: WNL Psychiatric: Yes: WNL, Alert, Oriented Labs: Laboratory Results - last 24 hr 02/14/17 02/14/17 02/14/17 11:18 17:29 20:15 WBC 5.2 RBC 3.07 L Hgb 10.0 L Hct 29.7 L MCV 96.9 H MCH 32.5 MCHC 33.6 RDW 19.0 H Plt Count 167 MPV 8.7 Total Counted 100 Neutrophils % No Result Required. Neutrophils % (Manual) 55 Band Neuts % (Manual) 2 D Lymphocytes % No Result Required. Lymphocytes % (Manual) 21 D Monocytes % (Manual) 22 H* Hypochromia 1+ Platelet Estimate Adequate Polychromasia 1+ Microcytosis 1+ PT with INR INR PTT (Actin FS) Sodium Potassium Chloride Carbon Dioxide Anion Gap BUN Creatinine Creat Clearance w eGFR POC Glucometer 108 146 Random Glucose Calcium Total Bilirubin AST ALT Alkaline Phosphatase Total Protein Albumin 02/14/17 02/14/17 02/15/17 20:15 20:51 06:10 WBC RBC Hgb Hct MCV MCH MCHC RDW Plt Count MPV Total Counted Neutrophils % Neutrophils % (Manual) Band Neuts % (Manual) Lymphocytes % Lymphocytes % (Manual) Monocytes % (Manual) Hypochromia Platelet Estimate Polychromasia Microcytosis PT with INR INR PTT (Actin FS) Sodium 135 L Potassium 2.9 L* Chloride 94 L Carbon Dioxide 32 Anion Gap 9 BUN 9 Creatinine 0.8 Creat Clearance w eGFR > 60 POC Glucometer 121 89 Random Glucose 129 H D Calcium 8.6 Total Bilirubin 0.5 D AST 147 H D ALT 84 H D Alkaline Phosphatase 165 H D Total Protein 6.2 L Albumin 2.3 L 02/15/17 02/15/1702/15/17 08:50 08:50 08:50 WBC 5.5 RBC 3.24 L Hgb 10.9 Hct 31.7 L MCV 97.9 H MCH 33.5 MCHC 34.2 RDW 18.9 H Plt Count 155 MPV 9.0 Total Counted Neutrophils % No Result Required. Neutrophils % (Manual) Band Neuts % (Manual) Lymphocytes % No Result Required. Lymphocytes % (Manual) Monocytes % (Manual) Hypochromia Platelet Estimate Polychromasia Microcytosis PT with INR 35.30 H INR 3.12 H PTT (Actin FS) 46.4 H D Sodium 137 Potassium 3.9 D Chloride 96 L Carbon Dioxide 33 H Anion Gap 8 BUN 10 Creatinine 0.9 Creat Clearance w eGFR > 60 POC Glucometer Random Glucose 114 H Calcium 9.0 Total Bilirubin 0.6 AST 143 H ALT 86 H Alkaline Phosphatase 174 H Total Protein 6.4 Albumin 2.4 L Problem List - Problems (1) A-fib Code(s): I48.91 - UNSPECIFIED ATRIAL FIBRILLATION Qualifiers: (2) Intractable back pain Code(s): M54.9 - DORSALGIA, UNSPECIFIED (3) Hypothyroid Code(s): E03.9 - HYPOTHYROIDISM, UNSPECIFIED (4) Lymphedema Code(s): I89.0 - LYMPHEDEMA, NOT ELSEWHERE CLASSIFIED (5) Anemia Code(s): D64.9 - ANEMIA, UNSPECIFIED (6) Anxiety and depression Code(s): F41.9 - ANXIETY DISORDER, UNSPECIFIED F32.9 - MAJOR DEPRESSIVE DISORDER, SINGLE EPISODE, UNSPECIFIED (7) Diabetes Code(s): E11.9 - TYPE 2 DIABETES MELLITUS WITHOUT COMPLICATIONS Qualifiers: Diabetes mellitus type: type 2 Diabetes mellitus complication status: without complication (8) HTN (hypertension) Code(s): I10 - ESSENTIAL (PRIMARY) HYPERTENSION Qualifiers: (9) Morbidly obese Code(s): E66.01 - MORBID (SEVERE) OBESITY DUE TO EXCESS CALORIES (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 Code(s): C56.9 - MALIGNANT NEOPLASM OF UNSPECIFIED OVARY C80.0 - DISSEMINATED MALIGNANT NEOPLASM, UNSPECIFIED (11) Pulmonary nodules/lesions, multiple Code(s): R91.8 - OTHER NONSPECIFIC ABNORMAL FINDING OF LUNG FIELD (12) SOB (shortness of breath) Code(s): R06.02 - SHORTNESS OF BREATH Assessment/Plan Nasal saline ABX per ID O2 as needed Coumadin BD TX Dr An Problem List - Problems (1) A-fib Code(s): I48.91 - UNSPECIFIED ATRIAL FIBRILLATION Qualifiers: (2) Intractable back pain Code(s): M54.9 - DORSALGIA, UNSPECIFIED (3) Hypothyroid Code(s): E03.9 - HYPOTHYROIDISM, UNSPECIFIED (4) Lymphedema Code(s): I89.0 - LYMPHEDEMA, NOT ELSEWHERE CLASSIFIED (5) Anemia Code(s): D64.9 - ANEMIA, UNSPECIFIED (6) Anxiety and depression Code(s): F41.9 - ANXIETY DISORDER, UNSPECIFIED F32.9 - MAJOR DEPRESSIVE DISORDER, SINGLE EPISODE, UNSPECIFIED (7) Diabetes Code(s): E11.9 - TYPE 2 DIABETES MELLITUS WITHOUT COMPLICATIONS Qualifiers: Diabetes mellitus type: type 2 Diabetes mellitus complication status: without complication (8) HTN (hypertension) Code(s): I10 - ESSENTIAL (PRIMARY) HYPERTENSION Qualifiers: (9) Morbidly obese Code(s): E66.01 - MORBID (SEVERE) OBESITY DUE TO EXCESS CALORIES (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 Code(s): C56.9 - MALIGNANT NEOPLASM OF UNSPECIFIED OVARY C80.0 - DISSEMINATED MALIGNANT NEOPLASM, UNSPECIFIED (11) Pulmonary nodules/lesions, multiple Code(s): R91.8 - OTHER NONSPECIFIC ABNORMAL FINDING OF LUNG FIELD (12) SOB (shortness of breath) Code(s): R06.02 - SHORTNESS OF BREATH
[2017-02-15] MEDS ORDERED: SODIUM CHLORIDE NASAL SPRAY 44 ML BOTTLE NS PRN (10:49)
[2017-02-15 11:01] LABS: METAMYELOCYTE 3 % (0-2); MYELOCYTE 2 % (0-2); PLATELET ESTIMATE DECREASED (NORMAL); TOTAL CELLS COUNTED 100
--- NOTE | 2017-02-15 11:53 | PN ---
Progress Note (short form) - Note Progress Note: patient seen and examined. sitting in chair. condition same. mood better today c/c- mild congestion of sinuses. Vital Signs Temp 98.2 F 02/15/17 07:00 Pulse 92 H 02/15/17 07:00 Resp 18 02/15/17 07:00 BP 102/53 02/15/17 07:00 Pulse Ox 99 02/15/17 09:00 Intake & Output 02/14/17 02/14/17 02/15/17 11:59 23:59 11:59 Intake Total 150 270 150 Balance 150 270 150 Intake: Oral 150 270 150 Other: Voiding Method Toilet Toilet Toilet # Unmeasured Voids Void 1 2 Bowel Movement No No No # Bowel Movements 1 CBC, BMP 02/15/17 08:50 02/15/17 08:50 INR, PTT INR 3.12 (0.82-1.09) H 02/15/17 08:50 Microbiology 02/11/17 16:50 Gram Stain - Final Foot - Left Lateral Wound Culture - Preliminary Mr S Aureus Streptococcus Species 02/10/17 16:30 Blood Culture - Preliminary Blood - Peripheral Venous NO GROWTH OBTAINED AFTER 96 HOURS, INCUBATION TO CONTINUE FOR 1 DAYS. 02/10/17 15:40 Blood Culture - Preliminary Blood - Neeta Cath NO GROWTH OBTAINED AFTER 96 HOURS, INCUBATION TO CONTINUE FOR 1 DAYS. Physical exam Constitutional: Yes: No Distress--chronic ill appearance, obese. Cardiovascular: Yes: Pulse Irregular Respiratory: Yes: Diminished at bases. Gastrointestinal: Yes: Normal Bowel Sounds, Soft, Abdomen, Obese. No: Tenderness Extremities: Yes: Erythema left foot in brace neuro--alert and awake Problem List - Problems (1) A-fib Code(s): I48.91 - UNSPECIFIED ATRIAL FIBRILLATION Qualifiers: (2) Depression, major, severe recurrence Code(s): F33.2 - MAJOR DEPRESSV DISORDER, RECURRENT SEVERE W/O PSYCH FEATURES (3) Primary cancer of ovary with widespread metastatic disease Code(s): C56.9 - MALIGNANT NEOPLASM OF UNSPECIFIED OVARY C80.0 - DISSEMINATED MALIGNANT NEOPLASM, UNSPECIFIED (4) Metabolic encephalopathy Code(s): G93.41 - METABOLIC ENCEPHALOPATHY (5) Intractable back pain Code(s): M54.9 - DORSALGIA, UNSPECIFIED Assessment/Plan clinically stable Multiple problems as listed Advanced cancer MRSA positive sputum wound cultures pending Vanco dosing per level Monitor INR/labs MRSA precautions in place Discussed with nursing staff Condition remains guarded discussed with also today.
--- NOTE | 2017-02-15 12:42 | PN ---
Progress Note (short form) - Note Progress Note: Hematology/Oncology follow-up note S: Patient sitting up in chair today, complaining of whitish sputum and cough. Last Vital Signs Temp Pulse Resp BP Pulse Ox 98.2 F 92 H 18 102/53 99 02/15/17 07:00 02/15/17 07:00 02/15/17 07:00 02/15/17 07:00 02/15/17 09:00 AOx3, PERRLA , EOMI CTA(BL), Irregular rhythm Soft abdomen lymphedema CBC, BMP 02/15/17 08:50 02/15/17 08:50 Current Medications Generic Name Dose Route Start Last Admin Trade Name Freq PRN Reason Stop Dose Admin Acetaminophen 650 mg 01/24/17 09:33 02/15/17 09:06 Tylenol - PO 650 mg Q6H PRN Administration PAIN Bupropion HCl 150 mg 01/24/17 10:00 02/15/17 09:40 Wellbutrin Xl - PO 150 mg DAILY VIRGILIO Administration Diltiazem HCl 300 mg 01/24/17 10:00 02/15/17 09:41 Cardizem Cd - PO 300 mg DAILY VIRGILIO Administration Docusate Sodium 100 mg 02/05/17 10:23 Colace - PO Q8H PRN CONSTIPATION Fentanyl 1 patch 02/14/17 10:00 02/14/17 10:45 Duragesic 12mcg Patch - TD 1 patch Q72H VIRGILIO Administration Furosemide 40 mg 02/11/17 14:00 02/15/17 06:24 Lasix Injection - IVPUSH 40 mg BID@0600,1400 VIRGILIO Administration Glipizide 5 mg 01/24/17 07:00 02/15/17 06:25 Glucotrol - PO 5 mg DAILY@0700 VIRGILIO Administration Guaifenesin 5 ml 01/26/17 20:29 02/10/17 21:05 Diabetic Tussin Dm - PO 5 ml Q6H PRN Administration COUGH Insulin Aspart 1 vial 01/24/17 16:45 02/15/17 11:00 Novolog Vial Sliding Scale - SQ Not Given ACHS VIRGILIO Protocol Levothyroxine Sodium 75 mcg 01/24/17 07:00 02/15/17 06:25 Synthroid - PO 75 mcg DAILY@0700 VIRGILIO Administration Loratadine 10 mg 01/24/17 10:00 02/15/17 09:40 Claritin - PO 10 mg DAILY VIRGILIO Administration Metformin HCl 500 mg 01/24/17 07:00 02/15/17 06:25 Glucophage - PO 500 mg BIDAC VIRGILIO Administration Miscellaneous 1 each 01/30/17 11:19 01/31/17 02:15 Duragesic Patch Waste TD 1 each PRN PRN Administration PAIN Miscellaneous 1 each 02/13/17 19:44 Duragesic Patch Waste MC PRN PRN PAIN Multi-Ingredient Lotion 1 applic 01/25/17 22:00 02/15/17 09:41 Eucerin (Small Jar) - TP 1 applic BID VIRGILIO Administration Multi-Ingredient Ointment 1 applic 02/13/17 22:00 02/15/17 09:43 Zinc Oxide TP 1 applic BID VIRGILIO Administration Mupirocin 1 applic 02/12/17 10:00 02/15/17 09:41 Bactroban 2% Ointment - TP 1 applic DAILY VIRGILIO Administration Qtukt-7-Nhyq Ethyl Esters 1 gm 01/23/17 22:00 02/15/17 09:40 Lovaza - PO 1 gm BID VIRGILIO Administration Ondansetron HCl 8 mg 01/23/17 12:21 02/02/17 09:10 Zofran Injection IVPB 8 mg Q12H PRN Administration NAUSEA AND/OR VOMITING Potassium Chloride 20 meq 02/03/17 12:15 02/15/17 09:42 K-Dur - PO 20 meq DAILY VIRGILIO Administration Ranitidine HCl 150 mg 01/24/17 10:00 02/15/17 09:40 Zantac - PO 150 mg DAILY VIRGILIO Administration Saliva Substitute 1 applic 02/09/17 10:00 02/15/17 09:42 Mouthkote Solution - MM 1 applic DAILY VIRGILIO Administration Senna 2 tab 01/29/17 10:48 01/29/17 21:09 Senna - PO 2 tab HS PRN Administration CONSTIPATION Sodium Chloride 2 spray 02/15/17 10:49 02/15/17 12:38 [place] Nasal [place] - NS 2 sprays TID PRN Administration NASAL CONGESTION Tiotropium [place] 1 puff 01/24/17 10:00 02/15/17 10:20 Spiriva - IH 1 puff DAILY VIRGILIO Administration Tramadol HCl 50 mg 02/13/17 19:45 Ultram - PO Q6H PRN PAIN Warfarin Sodium 2 mg 02/13/17 18:00 02/13/17 17:54 Coumadin - PO 2 mg DAILY@1800 VIRGILIO Administration A/P 61 y/o with metastatic high grade mullerian cancer, serous adenoca s/p carbo/taxol with stable disease, but most recently has been progressing with rising CA 125 and peritoneal implants on imaging. cough with sputum production -please obtain CXR with PA/Lat view pain control --on tramadol. on fentanyl 12 mcg Q 72hrs, afib restarted coumadin INR today is 3.2 High grade mullerian cancer : on gemzar Lt. foot cellulitis- continue vanco---per levels ID to f/u on sensitivities of wound culture Will continue to follow closely
--- NOTE | 2017-02-15 13:56 | PN ---
Progress Note (short form) - Note Progress Note: still some erythema of the foot no fevers Vital Signs Period Temp Pulse Resp BP Sys/Dinero Pulse Ox Last 24 Hr 97.4 F-98.2 F 84-100 18-18 102-129/51-70 99-100 +erythema, but less, no drainage CBC, BMP 02/15/17 08:50 02/15/17 08:50 Microbiology 02/11/17 16:50 Foot - Left Lateral Gram Stain - Final 02/11/17 16:50 Foot - Left Lateral Wound Culture - Preliminary Mr S Aureus Streptococcus Species 02/10/17 16:30 Blood - Peripheral Venous Blood Culture - Preliminary NO GROWTH OBTAINED AFTER 96 HOURS, INCUBATION TO CONTINUE FOR 1 DAYS. 02/10/17 15:40 Blood - Neeta Cath Blood Culture - Preliminary NO GROWTH OBTAINED AFTER 96 HOURS, INCUBATION TO CONTINUE FOR 1 DAYS. 01/29/17 06:30 Sputum - Expectorated Gram Stain - Final 01/29/17 06:30 Sputum - Expectorated Sputum Culture - Final Beta Hem Streptococcus Group F Mr S Aureus 01/27/17 20:00 Blood - Neeta Cath Blood Culture - Final NO GROWTH AFTER 5 DAYS INCUBATION 01/27/17 15:30 Blood - Neeta Cath Blood Culture - Final NO GROWTH AFTER 5 DAYS INCUBATION 01/27/17 15:30 Blood - Peripheral Venous Blood Culture - Final NO GROWTH AFTER 5 DAYS INCUBATION 01/27/17 19:45 Urine - Urine Clean Catch Urine Culture - Final NO GROWTH OBTAINED Laboratory Tests 02/13/17 02/14/17 12:00 09:20 Vancomycin Pre-Dose 25.187 H* 20.631 H* a/p check vancomycin trough today and resume vancomycin if less then 15 hopefully switch to po antibiotics on Friday
[2017-02-15] MEDS ORDERED: INSULIN (NOVOLOG) ASPART 100 UNITS/ML 10ML VIAL ONE (21:14)
[2017-02-15] MEDS: VANCOMYCIN 1,000 MG in DEXTROSE 5%-WATER - 250 ML IVPB SCH (23:13)
[2017-02-16] MEDS: INSULIN SLIDING SCALE (NOVOLOG) 1 VIAL SQ SCH ×4 (06:02→22:31)
[2017-02-16] MEDS: FUROSEMIDE 40 MG/4 ML INJECTABLE VIAL IVPUSH SCH ×2 (06:30→13:57)
[2017-02-16] MEDS: LEVOTHYROXINE NA 75 MCG TABLET (FP) PO SCH (06:31)
[2017-02-16 08:18] LABS: MCH 33.3 pg (25.7-33.7); MCHC 34.3 g/dl (32.0-36.0); MEAN CELL VOLUME 97.2 fl (80-96); PLATELET COUNT 139 K/MM3 (134-434); RDW 19.6 % (11.6-15.6); WHITE BLOOD COUNT 5.6 K/mm3 (4.0-10.0)
[2017-02-16] MEDS: glipiZIDE 5 MG TABLET (FP) PO SCH (08:19)
[2017-02-16] MEDS: metFORMIN HCL 500 MG TABLET (FP) PO SCH ×2 (08:19→16:37)
[2017-02-16 09:04] LABS: ALBUMIN 2.2 g/dl (3.4-5.0); ANION GAP 10 (8-16); CALCIUM 8.5 mg/dL (8.5-10.1); CO2 31 mmol/L (21-32); GLUCOSE,RANDOM 79 mg/dL (74-106)
[2017-02-16 09:09] LABS: ALK PHOS 163 U/L (45-117); BILIRUBIN,TOTAL 0.7 mg/dL (0.2-1.0); CREATININE 0.7 mg/dL (0.55-1.02); SGOT/AST 101 U/L (15-37); SGPT/ALT 67 U/L (12-78); TOT PROT 5.9 g/dl (6.4-8.2)
[2017-02-16] MEDS: POTASSIUM CHLORIDE TABS 20 MEQ TABLET.ER (FP) PO SCH (10:03)
[2017-02-16] MEDS: LORATADINE 10 MG TABLET PO SCH (10:03)
[2017-02-16] MEDS: TIOTROPIUM BROMIDE 18 MCG/INH (DEVICE W/ 5 CAPSULES) IH SCH (10:03)
[2017-02-16] MEDS: RANITIDINE HCL 150 MG TABLET (FP) PO SCH (10:03)
[2017-02-16] MEDS: OMEGA-3 ACID ETHYL ESTERS (FATTY-ACIDS) 1 GM CAPSULE (FP) PO SCH ×2 (10:04→21:56)
[2017-02-16] MEDS: ZINC OXIDE 20% TOPICAL OINTMENT 30 GM TUBE TP SCH ×2 (10:06→21:57)
[2017-02-16] MEDS: LYTES/YERBA SANTA 240 ML BOTTLE MM SCH (10:06)
[2017-02-16] MEDS: MUPIROCIN 2% TOPICAL OINTMENT 22 GM TUBE TP SCH (10:07)
[2017-02-16] MEDS: MINERAL OIL/PETROLAT/WATER TOPICAL CREAM 113 GM JAR TP SCH ×2 (10:08→21:57)
--- NOTE | 2017-02-16 10:55 | PN ---
Progress Note (short form) - Note Progress Note: Resting in NAD. Feels about the same. Continues with cough. No hemoptysis. Intake & Output 02/13/17 02/14/17 02/15/17 02/16/17 23:59 23:59 23:59 23:59 Intake Total 2650 420 550 20 Output Total 1 Balance 2649 420 550 20 Last Vital Signs Temp Pulse Resp BP Pulse Ox 97.9 F 91 H 20 117/57 100 02/16/17 06:00 02/16/17 06:00 02/16/17 06:00 02/16/17 06:00 02/15/17 21:00 Active Medications Acetaminophen (Tylenol -) 650 mg PO Q6H PRN PRN Reason: PAIN Last Admin: 02/15/17 22:10 Dose: 650 mg Bupropion HCl (Wellbutrin Xl -) 150 mg PO DAILY [facility] Last Admin: 02/16/17 10:03 Dose: 150 mg Diltiazem HCl (Cardizem Cd -) 300 mg PO DAILY [facility] Last Admin: 02/16/17 10:04 Dose: 300 mg Docusate Sodium (Colace -) 100 mg PO Q8H PRN PRN Reason: CONSTIPATION Fentanyl (Duragesic 12mcg Patch -) 1 patch TD Q72H [facility] Last Admin: 02/14/17 10:45 Dose: 1 patch Furosemide (Lasix Injection -) 40 mg IVPUSH BID@0600,1400 [facility] Last Admin: 02/16/17 06:30 Dose: 40 mg Glipizide (Glucotrol -) 5 mg PO DAILY@0700 [facility] Last Admin: 02/16/17 08:19 Dose: 5 mg Guaifenesin (Diabetic Tussin Dm -) 5 ml PO Q6H PRN PRN Reason: COUGH Last Admin: 02/10/17 21:05 Dose: 5 ml Vancomycin HCl 1,000 mg/ (Dextrose) 250 mls @ 166.667 mls/hr IVPB Q24H [facility] Last Admin: 02/15/17 23:13 Dose: 166.667 mls/hr Insulin Aspart (Novolog Vial Sliding Scale -) 1 vial SQ ACHS [facility] PRN Reason: Protocol Last Admin: 02/16/17 06:02 Dose: Not Given Levothyroxine Sodium (Synthroid -) 75 mcg PO DAILY@0700 [facility] Last Admin: 10/29/17 06:31 Dose: 75 mcg Loratadine (Claritin -) 10 mg PO DAILY [facility] Last Admin: 02/16/17 10:03 Dose: 10 mg Metformin HCl (Glucophage -) 500 mg PO BIDAC [facility] Last Admin: 02/16/17 08:19 Dose: 500 mg Miscellaneous (Duragesic Patch Waste) 1 each TD PRN PRN PRN Reason: PAIN Last Admin: 01/31/17 02:15 Dose: 1 each Miscellaneous (Duragesic Patch Waste) 1 each MC PRN PRN PRN Reason: PAIN Multi-Ingredient Lotion (Eucerin (Small Jar) -) 1 applic TP BID [facility] Last Admin: 02/16/17 10:08 Dose: 1 applic Multi-Ingredient Ointment (Zinc Oxide) 1 applic TP BID [facility] Last Admin: 02/16/17 10:06 Dose: 1 applic Mupirocin (Bactroban 2% Ointment -) 1 applic TP DAILY [facility] Last Admin: 02/16/17 10:07 Dose: 1 applic [id number] Ethyl Esters (Lovaza -) 1 gm PO BID [facility] Last Admin: 02/16/17 10:04 Dose: 1 gm Ondansetron HCl (Zofran Injection) 8 mg IVPB Q12H PRN PRN Reason: NAUSEA AND/OR VOMITING Last Admin: 02/02/17 09:10 Dose: 8 mg Potassium Chloride (K-Dur -) 20 meq PO DAILY [facility] Last Admin: 02/16/17 10:03 Dose: 20 meq Ranitidine HCl (Zantac -) 150 mg PO DAILY [facility] Last Admin: 02/16/17 10:03 Dose: 150 mg Saliva Substitute (Mouthkote Solution -) 1 applic MM DAILY [facility] Last Admin: 02/16/17 10:06 Dose: 1 applic Senna (Senna -) 2 tab PO HS PRN PRN Reason: CONSTIPATION Last Admin: 01/29/17 21:09 Dose: 2 tab Sodium Chloride ([place] Nasal [place] -) 2 spray NS TID PRN PRN Reason: NASAL CONGESTION Last Admin: 02/15/17 12:38 Dose: 2 sprays Tiotropium [place] (Spiriva -) 1 puff IH DAILY [facility] Last Admin: 02/16/17 10:03 Dose: 1 puff Tramadol HCl (Ultram -) 50 mg PO Q6H PRN PRN Reason: PAIN Last Admin: 02/15/17 17:06 Dose: 50 mg Warfarin Sodium (Coumadin -) 2 mg PO DAILY@1800 [facility] Last Admin: 02/13/17 17:54 Dose: 2 mg Constitutional: Yes: No Distress, Obese Eyes: Yes: Conjunctiva Clear, EOM Intact HENT: Yes: Atraumatic, Normocephalic Neck: Yes: Supple, Trachea Midline Cardiovascular: Yes: Regular Rate and Rhythm Respiratory: Yes: Cough, Diminished, On Nasal O2. No: Accessory Muscle Use, Rhonchi, Stridor, Wheezes ...Inspection: Yes: WNL ...Clubbing: No Gastrointestinal: Yes: Normal Bowel Sounds, Soft, Abdomen, Obese Renal/: Yes: WNL Musculoskeletal: Yes: Back Pain Extremities: Yes: WNL Edema: Yes Peripheral Pulses WNL: Yes Integumentary: Yes: WNL Neurological: Yes: WNL, Alert, Oriented ...Motor Strength: WNL Psychiatric: Yes: WNL, Alert, Oriented Labs: Laboratory Results - last 24 hr 02/15/17 02/15/17 02/15/17 08:50 11:44 16:57 WBC 5.5 RBC 3.24 L Hgb 10.9 Hct 31.7 L MCV 97.9 H MCH 33.5 MCHC 34.2 RDW 18.9 H Plt Count 155 MPV 9.0 Total Counted 100 Neutrophils % Neutrophils % (Manual) 60 Lymphocytes % Lymphocytes % (Manual) 13 D Monocytes % (Manual) 22 H* Myelocytes % (Man) 2 Platelet Estimate Decreased Platelet Comment No clumping noted Sodium Potassium Chloride Carbon Dioxide Anion Gap BUN Creatinine Creat Clearance w eGFR POC Glucometer 86 104 Random Glucose Calcium Total Bilirubin AST ALT Alkaline Phosphatase Total Protein Albumin Random Vancomycin 02/15/17 02/15/17 02/16/17 17:00 22:06 05:51 WBC RBC Hgb Hct MCV MCH MCHC RDW Plt Count MPV Total Counted Neutrophils % Neutrophils % (Manual) Lymphocytes % Lymphocytes % (Manual) Monocytes % (Manual) Myelocytes % (Man) Platelet Estimate Platelet Comment Sodium Potassium Chloride Carbon Dioxide Anion Gap BUN Creatinine Creat Clearance w eGFR POC Glucometer 136 88 Random Glucose Calcium Total Bilirubin AST ALT Alkaline Phosphatase Total Protein Albumin Random Vancomycin 8.954 02/16/17 02/16/17 06:05 06:05 WBC 5.6 RBC 3.02 L Hgb 10.1 L Hct 29.4 L MCV 97.2 H MCH 33.3 MCHC 34.3 RDW 19.6 H Plt Count 139 MPV 9.0 Total Counted Neutrophils % No Result Required. Neutrophils % (Manual) Lymphocytes % No Result Required. Lymphocytes % (Manual) Monocytes % (Manual) Myelocytes % (Man) Platelet Estimate Platelet Comment Sodium 135 L Potassium 3.5 Chloride 94 L Carbon Dioxide 31 Anion Gap 10 BUN 11 Creatinine 0.7 D Creat Clearance w eGFR > 60 POC Glucometer Random Glucose 79 D Calcium 8.5 Total Bilirubin 0.7 AST 101 H D ALT 67 D Alkaline Phosphatase 163 H Total Protein 5.9 L Albumin 2.2 L Random Vancomycin Problem List - Problems (1) A-fib Code(s): I48.91 - UNSPECIFIED ATRIAL FIBRILLATION Qualifiers: (2) Intractable back pain Code(s): M54.9 - DORSALGIA, UNSPECIFIED (3) Hypothyroid Code(s): E03.9 - HYPOTHYROIDISM, UNSPECIFIED (4) Lymphedema Code(s): I89.0 - LYMPHEDEMA, NOT ELSEWHERE CLASSIFIED (5) Anemia Code(s): D64.9 - ANEMIA, UNSPECIFIED (6) Anxiety and depression Code(s): F41.9 - ANXIETY DISORDER, UNSPECIFIED F32.9 - MAJOR DEPRESSIVE DISORDER, SINGLE EPISODE, UNSPECIFIED (7) Diabetes Code(s): E11.9 - TYPE 2 DIABETES MELLITUS WITHOUT COMPLICATIONS Qualifiers: Diabetes mellitus type: type 2 Diabetes mellitus complication status: without complication (8) HTN (hypertension) Code(s): I10 - ESSENTIAL (PRIMARY) HYPERTENSION Qualifiers: (9) Morbidly obese Code(s): E66.01 - MORBID (SEVERE) OBESITY DUE TO EXCESS CALORIES (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 Code(s): C56.9 - MALIGNANT NEOPLASM OF UNSPECIFIED OVARY C80.0 - DISSEMINATED MALIGNANT NEOPLASM, UNSPECIFIED (11) Pulmonary nodules/lesions, multiple Code(s): R91.8 - OTHER NONSPECIFIC ABNORMAL FINDING OF LUNG FIELD (12) SOB (shortness of breath) Code(s): R06.02 - SHORTNESS OF BREATH Assessment/Plan ABX per ID O2 as needed Coumadin BD TX Nasal saline Dr An Problem List - Problems (1) A-fib Code(s): I48.91 - UNSPECIFIED ATRIAL FIBRILLATION Qualifiers: (2) Intractable back pain Code(s): M54.9 - DORSALGIA, UNSPECIFIED (3) Hypothyroid Code(s): E03.9 - HYPOTHYROIDISM, UNSPECIFIED (4) Lymphedema Code(s): I89.0 - LYMPHEDEMA, NOT ELSEWHERE CLASSIFIED (5) Anemia Code(s): D64.9 - ANEMIA, UNSPECIFIED (6) Anxiety and depression Code(s): F41.9 - ANXIETY DISORDER, UNSPECIFIED F32.9 - MAJOR DEPRESSIVE DISORDER, SINGLE EPISODE, UNSPECIFIED (7) Diabetes Code(s): E11.9 - TYPE 2 DIABETES MELLITUS WITHOUT COMPLICATIONS Qualifiers: Diabetes mellitus type: type 2 Diabetes mellitus complication status: without complication (8) HTN (hypertension) Code(s): I10 - ESSENTIAL (PRIMARY) HYPERTENSION Qualifiers: (9) Morbidly obese Code(s): E66.01 - MORBID (SEVERE) OBESITY DUE TO EXCESS CALORIES (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 Code(s): C56.9 - MALIGNANT NEOPLASM OF UNSPECIFIED OVARY C80.0 - DISSEMINATED MALIGNANT NEOPLASM, UNSPECIFIED (11) Pulmonary nodules/lesions, multiple Code(s): R91.8 - OTHER NONSPECIFIC ABNORMAL FINDING OF LUNG FIELD (12) SOB (shortness of breath) Code(s): R06.02 - SHORTNESS OF BREATH
[2017-02-16 11:36] LABS: PLATELET ESTIMATE ADEQUATE (NORMAL)
[2017-02-16 11:37] LABS: TOTAL CELLS COUNTED 100
[2017-02-16 11:38] LABS: METAMYELOCYTE 2 % (0-2)
--- NOTE | 2017-02-16 11:56 | PN ---
Progress Note (short form) - Note Progress Note: patient seen and examined. sitting in chair. condition same. no new issues Vital Signs Temp 97.9 F 02/16/17 06:00 Pulse 91 H 02/16/17 06:00 Resp 20 02/16/17 06:00 BP 117/57 02/16/17 06:00 Pulse Ox 100 02/15/17 21:00 Intake & Output 02/15/17 02/15/17 02/16/17 11:59 23:59 11:59 Intake Total 150 400 20 Balance 150 400 20 Intake: IV 250 20 Portacath 250 20 Oral 150 150 Other: Voiding Method Toilet Toilet # Unmeasured Voids Void 2 Bowel Movement No Yes CBC, BMP 02/16/17 06:05 02/16/17 06:05 INR, PTT INR 3.12 (0.82-1.09) H 02/15/17 08:50 Physical exam Constitutional: Yes: No Distress--chronic ill appearance, obese. Cardiovascular: Yes: Pulse Irregular Respiratory: Yes: Diminished at bases. Gastrointestinal: Yes: Normal Bowel Sounds, Soft, Abdomen, Obese. No: Tenderness Extremities: Yes: Erythema left foot in brace neuro--alert and awake Problem List - Problems (1) A-fib Code(s): I48.91 - UNSPECIFIED ATRIAL FIBRILLATION Qualifiers: (2) Depression, major, severe recurrence Code(s): F33.2 - MAJOR DEPRESSV DISORDER, RECURRENT SEVERE W/O PSYCH FEATURES (3) Primary cancer of ovary with widespread metastatic disease Code(s): C56.9 - MALIGNANT NEOPLASM OF UNSPECIFIED OVARY C80.0 - DISSEMINATED MALIGNANT NEOPLASM, UNSPECIFIED (4) Metabolic encephalopathy Code(s): G93.41 - METABOLIC ENCEPHALOPATHY (5) Intractable back pain Code(s): M54.9 - DORSALGIA, UNSPECIFIED Assessment/Plan clinically stable Multiple problems as listed Advanced cancer MRSA positive sputum wound cultures pending Vanco dosing per level Monitor INR/labs MRSA precautions in place Discussed with nursing staff Condition remains guarded will follow coumadin per inr level.
[2017-02-16] MEDS: ACETAMINOPHEN 325 MG TABLET (FP) PO PRN ×2 (12:02→21:55)
[2017-02-16 17:18] LABS: INR 2.66 (0.82-1.09); PROTHROMBIN TIME (PATIENT) 30.1 SEC (9.98-11.88)
[2017-02-16] MEDS: WARFARIN NA 2 MG TABLET (UD) PO SCH (17:33)
[2017-02-16] MEDS ORDERED: PT OWN MED DRAWER 7, Y5N ONE (21:49)
[2017-02-16] MEDS: VANCOMYCIN 1,000 MG in DEXTROSE 5%-WATER - 250 ML IVPB SCH (21:55)
[2017-02-17] MEDS: ACETAMINOPHEN 325 MG TABLET (FP) PO PRN ×2 (04:18→22:26)
[2017-02-17] MEDS: LEVOTHYROXINE NA 75 MCG TABLET (FP) PO SCH (06:42)
[2017-02-17] MEDS: FUROSEMIDE 40 MG/4 ML INJECTABLE VIAL IVPUSH SCH ×2 (06:42→13:50)
[2017-02-17] MEDS: INSULIN SLIDING SCALE (NOVOLOG) 1 VIAL SQ SCH ×4 (06:44→22:27)
[2017-02-17 06:52] LABS: INR 2.64 (0.82-1.09); PROTHROMBIN TIME (PATIENT) 29.8 SEC (9.98-11.88)
[2017-02-17] MEDS: glipiZIDE 5 MG TABLET (FP) PO SCH (07:00)
[2017-02-17] MEDS: metFORMIN HCL 500 MG TABLET (FP) PO SCH ×2 (07:00→16:42)
--- NOTE | 2017-02-17 10:17 | PN ---
Progress Note (short form) - Note Progress Note: PULMONARY Reports a mild cough productive of clear sputum. No hemoptysis. No fevers or chills. Last Vital Signs Temp Pulse Resp BP Pulse Ox 97.4 F L 101 H 18 117/81 95 02/17/17 08:23 02/17/17 08:23 02/17/17 08:23 02/17/17 08:23 02/16/17 21:00 Gen: NAD in chair Heart: RRR Lung: decreased breath sounds at the bases Abd: soft, nontender Ext: + edema CBC, BMP 02/16/17 06:05 02/16/17 06:05 INR, PTT INR 2.64 (0.82-1.09) H 02/17/17 05:35 Active Medications Acetaminophen (Tylenol -) 650 mg PO Q6H PRN PRN Reason: PAIN Last Admin: 02/17/17 04:18 Dose: 650 mg Bupropion HCl (Wellbutrin Xl -) 150 mg PO DAILY [facility] Last Admin: 02/16/17 10:03 Dose: 150 mg Diltiazem HCl (Cardizem Cd -) 300 mg PO DAILY [facility] Last Admin: 02/16/17 10:04 Dose: 300 mg Docusate Sodium (Colace -) 100 mg PO Q8H PRN PRN Reason: CONSTIPATION Fentanyl (Duragesic 12mcg Patch -) 1 patch TD Q72H [facility] Last Admin: 02/14/17 10:45 Dose: 1 patch Furosemide (Lasix Injection -) 40 mg IVPUSH BID@0600,1400 [facility] Last Admin: 02/17/17 06:42 Dose: 40 mg Glipizide (Glucotrol -) 5 mg PO DAILY@0700 [facility] Last Admin: 02/17/17 07:00 Dose: 5 mg Guaifenesin (Diabetic Tussin Dm -) 5 ml PO Q6H PRN PRN Reason: COUGH Last Admin: 02/10/17 21:05 Dose: 5 ml Vancomycin HCl 1,000 mg/ (Dextrose) 250 mls @ 166.667 mls/hr IVPB Q24H [facility] Last Admin: 02/16/17 21:55 Dose: 166.667 mls/hr Insulin Aspart (Novolog Vial Sliding Scale -) 1 vial SQ ACHS [facility] PRN Reason: Protocol Last Admin: 02/17/17 06:44 Dose: Not Given Levothyroxine Sodium (Synthroid -) 75 mcg PO DAILY@0700 [facility] Last Admin: 02/17/17 06:42 Dose: 75 mcg Loratadine (Claritin -) 10 mg PO DAILY [facility] Last Admin: 02/16/17 10:03 Dose: 10 mg Metformin HCl (Glucophage -) 500 mg PO BIDAC [facility] Last Admin: 02/17/17 07:00 Dose: 500 mg Miscellaneous (Duragesic Patch Waste) 1 each TD PRN PRN PRN Reason: PAIN Last Admin: 01/31/17 02:15 Dose: 1 each Miscellaneous (Duragesic Patch Waste) 1 each MC PRN PRN PRN Reason: PAIN Multi-Ingredient Lotion (Eucerin (Small Jar) -) 1 applic TP BID [facility] Last Admin: 02/16/17 21:57 Dose: 1 applic Multi-Ingredient Ointment (Zinc Oxide) 1 applic TP BID [facility] Last Admin: 02/16/17 21:57 Dose: 1 applic Mupirocin (Bactroban 2% Ointment -) 1 applic TP DAILY [facility] Last Admin: 02/16/17 10:07 Dose: 1 applic [id number] Ethyl Esters (Lovaza -) 1 gm PO BID [facility] Last Admin: 02/16/17 21:56 Dose: 1 gm Ondansetron HCl (Zofran Injection) 8 mg IVPB Q12H PRN PRN Reason: NAUSEA AND/OR VOMITING Last Admin: 02/02/17 09:10 Dose: 8 mg Potassium Chloride (K-Dur -) 20 meq PO DAILY [facility] Last Admin: 02/16/17 10:03 Dose: 20 meq Ranitidine HCl (Zantac -) 150 mg PO DAILY [facility] Last Admin: 02/16/17 10:03 Dose: 150 mg Saliva Substitute (Mouthkote Solution -) 1 applic MM DAILY [facility] Last Admin: 02/16/17 10:06 Dose: 1 applic Senna (Senna -) 2 tab PO HS PRN PRN Reason: CONSTIPATION Last Admin: 01/29/17 21:09 Dose: 2 tab Sodium Chloride ([place] Nasal [place] -) 2 spray NS TID PRN PRN Reason: NASAL CONGESTION Last Admin: 02/15/17 12:38 Dose: 2 sprays Tiotropium [place] (Spiriva -) 1 puff IH DAILY [facility] Last Admin: 02/16/17 10:03 Dose: 1 puff Warfarin Sodium (Coumadin -) 2 mg PO DAILY@1800 [facility] Last Admin: 02/16/17 17:33 Dose: 2 mg A/P 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
[2017-02-17] MEDS ORDERED: ALBUTEROL SO4 0.083% IH SOL 2.5 MG/3 ML VIAL.NEB. NEB PRN (10:20)
[2017-02-17] MEDS: fentaNYL 12mcg/hr PATCH.TD72 TD SCH (10:51)
[2017-02-17] MEDS: TIOTROPIUM BROMIDE 18 MCG/INH (DEVICE W/ 5 CAPSULES) IH SCH (10:51)
[2017-02-17] MEDS: LORATADINE 10 MG TABLET PO SCH (10:52)
[2017-02-17] MEDS: POTASSIUM CHLORIDE TABS 20 MEQ TABLET.ER (FP) PO SCH (10:52)
[2017-02-17] MEDS: OMEGA-3 ACID ETHYL ESTERS (FATTY-ACIDS) 1 GM CAPSULE (FP) PO SCH ×2 (10:52→22:27)
[2017-02-17] MEDS: RANITIDINE HCL 150 MG TABLET (FP) PO SCH (10:52)
[2017-02-17] MEDS: ZINC OXIDE 20% TOPICAL OINTMENT 30 GM TUBE TP SCH ×2 (10:55→22:26)
[2017-02-17] MEDS: LYTES/YERBA SANTA 240 ML BOTTLE MM SCH (10:55)
[2017-02-17] MEDS: MINERAL OIL/PETROLAT/WATER TOPICAL CREAM 113 GM JAR TP SCH ×2 (10:56→22:27)
[2017-02-17] MEDS: MUPIROCIN 2% TOPICAL OINTMENT 22 GM TUBE TP SCH (10:56)
--- NOTE | 2017-02-17 11:42 | PN ---
Progress Note, Physician History of Present Illness: OOB in chair No c/o foot pain No c/o fever/ chills WBC 5.6 - Current Medication List Current Medications: Active Medications Acetaminophen (Tylenol -) 650 mg PO Q6H PRN PRN Reason: PAIN Last Admin: 02/17/17 04:18 Dose: 650 mg Albuterol Sulfate (Ventolin 0.083% Nebulizer Soln -) 1 amp NEB TID [facility] Albuterol Sulfate (Ventolin 0.083% Nebulizer Soln -) 1 amp NEB Q4H PRN PRN Reason: SHORT OF BREATH/WHEEZING Bupropion HCl (Wellbutrin Xl -) 150 mg PO DAILY [facility] Last Admin: 02/17/17 10:52 Dose: 150 mg Diltiazem HCl (Cardizem Cd -) 300 mg PO DAILY [facility] Last Admin: 02/17/17 10:56 Dose: 300 mg Docusate Sodium (Colace -) 100 mg PO Q8H PRN PRN Reason: CONSTIPATION Fentanyl (Duragesic 12mcg Patch -) 1 patch TD Q72H [facility] Last Admin: 02/17/17 10:51 Dose: 1 patch Furosemide (Lasix Injection -) 40 mg IVPUSH BID@0600,1400 [facility] Last Admin: 02/17/17 06:42 Dose: 40 mg Glipizide (Glucotrol -) 5 mg PO DAILY@0700 [facility] Last Admin: 02/17/17 07:00 Dose: 5 mg Guaifenesin (Diabetic Tussin Dm -) 5 ml PO Q6H PRN PRN Reason: COUGH Last Admin: 02/10/17 21:05 Dose: 5 ml Vancomycin HCl 1,000 mg/ (Dextrose) 250 mls @ 166.667 mls/hr IVPB Q24H [facility] Last Admin: 02/16/17 21:55 Dose: 166.667 mls/hr Insulin Aspart (Novolog Vial Sliding Scale -) 1 vial SQ ACHS [facility] PRN Reason: Protocol Last Admin: 02/17/17 06:44 Dose: Not Given Levothyroxine Sodium (Synthroid -) 75 mcg PO DAILY@0700 [facility] Last Admin: 02/17/17 06:42 Dose: 75 mcg Loratadine (Claritin -) 10 mg PO DAILY [facility] Last Admin: 02/17/17 10:52 Dose: 10 mg Metformin HCl (Glucophage -) 500 mg PO BIDAC [facility] Last Admin: 02/17/17 07:00 Dose: 500 mg Miscellaneous (Duragesic Patch Waste) 1 each TD PRN PRN PRN Reason: PAIN Last Admin: 01/31/17 02:15 Dose: 1 each Miscellaneous (Duragesic Patch Waste) 1 each MC PRN PRN PRN Reason: PAIN Multi-Ingredient Lotion (Eucerin (Small Jar) -) 1 applic TP BID [facility] Last Admin: 02/17/17 10:56 Dose: 1 applic Multi-Ingredient Ointment (Zinc Oxide) 1 applic TP BID [facility] Last Admin: 02/17/17 10:55 Dose: 1 applic Mupirocin (Bactroban 2% Ointment -) 1 applic TP DAILY [facility] Last Admin: 02/17/17 10:56 Dose: 1 applic [id number] Ethyl Esters (Lovaza -) 1 gm PO BID [facility] Last Admin: 02/17/17 10:52 Dose: 1 gm Ondansetron HCl (Zofran Injection) 8 mg IVPB Q12H PRN PRN Reason: NAUSEA AND/OR VOMITING Last Admin: 02/02/17 09:10 Dose: 8 mg Potassium Chloride (K-Dur -) 20 meq PO DAILY [facility] Last Admin: 02/17/17 10:52 Dose: 20 meq Ranitidine HCl (Zantac -) 150 mg PO DAILY [facility] Last Admin: 02/17/17 10:52 Dose: 150 mg Saliva Substitute ([place] Solution -) 1 applic MM DAILY [facility] Last Admin: 02/17/17 10:55 Dose: 1 applic Senna (Senna -) 2 tab PO HS PRN PRN Reason: CONSTIPATION Last Admin: 01/29/17 21:09 Dose: 2 tab Sodium Chloride ([place] Nasal [place] -) 2 spray NS TID PRN PRN Reason: NASAL CONGESTION Last Admin: 02/15/17 12:38 Dose: 2 sprays Tiotropium [place] (Spiriva -) 1 puff IH DAILY [facility] Last Admin: 02/17/17 10:51 Dose: 1 puff Warfarin Sodium (Coumadin -) 2 mg PO DAILY@1800 [facility] Last Admin: 02/16/17 17:33 Dose: 2 mg - Objective Vital Signs: Vital Signs Temperature 97.4 F L 02/17/17 08:23 Pulse Rate 101 H 02/17/17 08:23 Respiratory Rate 18 02/17/17 08:23 Blood Pressure 117/81 02/17/17 08:23 O2 Sat by Pulse Oximetry (%) 95 02/16/17 21:00 Constitutional: Yes: No Distress, Obese Eyes: Yes: Conjunctiva Clear Cardiovascular: Yes: Regular Rate and Rhythm, S1, S2 Respiratory: Yes: CTA Bilaterally Gastrointestinal: Yes: Normal Bowel Sounds, Soft, Abdomen, Obese. No: Tenderness Extremities: Yes: Other (+ erythema/ warmth / swelling present on dorsum of L foot) Edema: Yes Edema: LLE: 2+, RLE: 2+ Labs: CBC, BMP 02/16/17 06:05 02/16/17 06:05 INR, PTT INR 2.64 (0.82-1.09) H 02/17/17 05:35 Assessment/Plan Metastatic carcinoma Cellulitis L foot Continue empiric vancomycin Elevation
--- NOTE | 2017-02-17 12:09 | PN ---
Progress Note (short form) - Note Progress Note: patient seen and examined. sitting in chair. condition same. no new issues. Vital Signs Period Temp Pulse Resp BP Sys/Dinero Pulse Ox Last 24 Hr 97.4 F-97.9 F 77-101 16-20 102-120/54-81 95 Active Medications Acetaminophen (Tylenol -) 650 mg PO Q6H PRN PRN Reason: PAIN Last Admin: 02/17/17 04:18 Dose: 650 mg Albuterol Sulfate (Ventolin 0.083% Nebulizer Soln -) 1 amp NEB TID [facility] Albuterol Sulfate (Ventolin 0.083% Nebulizer Soln -) 1 amp NEB Q4H PRN PRN Reason: SHORT OF BREATH/WHEEZING Bupropion HCl (Wellbutrin Xl -) 150 mg PO DAILY [facility] Last Admin: 02/17/17 10:52 Dose: 150 mg Diltiazem HCl (Cardizem Cd -) 300 mg PO DAILY [facility] Last Admin: 02/17/17 10:56 Dose: 300 mg Docusate Sodium (Colace -) 100 mg PO Q8H PRN PRN Reason: CONSTIPATION Fentanyl (Duragesic 12mcg Patch -) 1 patch TD Q72H [facility] Last Admin: 02/17/17 10:51 Dose: 1 patch Furosemide (Lasix Injection -) 40 mg IVPUSH BID@0600,1400 [facility] Last Admin: 02/17/17 06:42 Dose: 40 mg Glipizide (Glucotrol -) 5 mg PO DAILY@0700 [facility] Last Admin: 02/17/17 07:00 Dose: 5 mg Guaifenesin (Diabetic Tussin Dm -) 5 ml PO Q6H PRN PRN Reason: COUGH Last Admin: 02/10/17 21:05 Dose: 5 ml Vancomycin HCl 1,000 mg/ (Dextrose) 250 mls @ 166.667 mls/hr IVPB Q24H [facility] Last Admin: 02/16/17 21:55 Dose: 166.667 mls/hr Insulin Aspart (Novolog Vial Sliding Scale -) 1 vial SQ ACHS [facility] PRN Reason: Protocol Last Admin: 02/17/17 06:44 Dose: Not Given Levothyroxine Sodium (Synthroid -) 75 mcg PO DAILY@0700 [facility] Last Admin: 02/17/17 06:42 Dose: 75 mcg Loratadine (Claritin -) 10 mg PO DAILY [facility] Last Admin: 02/17/17 10:52 Dose: 10 mg Metformin HCl (Glucophage -) 500 mg PO BIDAC [facility] Last Admin: 02/17/17 07:00 Dose: 500 mg Miscellaneous (Duragesic Patch Waste) 1 each TD PRN PRN PRN Reason: PAIN Last Admin: 01/31/17 02:15 Dose: 1 each Miscellaneous (Duragesic Patch Waste) 1 each MC PRN PRN PRN Reason: PAIN Multi-Ingredient Lotion (Eucerin (Small Jar) -) 1 applic TP BID [facility] Last Admin: 02/17/17 10:56 Dose: 1 applic Multi-Ingredient Ointment (Zinc Oxide) 1 applic TP BID [facility] Last Admin: 02/17/17 10:55 Dose: 1 applic Mupirocin (Bactroban 2% Ointment -) 1 applic TP DAILY [facility] Last Admin: 02/17/17 10:56 Dose: 1 applic Cehsq-1-Xbwe Ethyl Esters (Lovaza -) 1 gm PO BID [facility] Last Admin: 02/17/17 10:52 Dose: 1 gm Ondansetron HCl (Zofran Injection) 8 mg IVPB Q12H PRN PRN Reason: NAUSEA AND/OR VOMITING Last Admin: 02/02/17 09:10 Dose: 8 mg Potassium Chloride (K-Dur -) 20 meq PO DAILY [facility] Last Admin: 02/17/17 10:52 Dose: 20 meq Ranitidine HCl (Zantac -) 150 mg PO DAILY [facility] Last Admin: 02/17/17 10:52 Dose: 150 mg Saliva Substitute (Mouthkote Solution -) 1 applic MM DAILY [facility] Last Admin: 02/17/17 10:55 Dose: 1 applic Senna (Senna -) 2 tab PO HS PRN PRN Reason: CONSTIPATION Last Admin: 01/29/17 21:09 Dose: 2 tab Sodium Chloride ([place] Nasal [place] -) 2 spray NS TID PRN PRN Reason: NASAL CONGESTION Last Admin: 02/15/17 12:38 Dose: 2 sprays Tiotropium [place] (Spiriva -) 1 puff IH DAILY [facility] Last Admin: 02/17/17 10:51 Dose: 1 puff Warfarin Sodium (Coumadin -) 2 mg PO DAILY@1800 [facility] Last Admin: 02/16/17 17:33 Dose: 2 mg CBC, BMP 02/16/17 06:05 02/16/17 06:05 INR, PTT INR 2.64 (0.82-1.09) H 02/17/17 05:35 Physical exam Constitutional: Yes: No Distress--chronic ill appearance, obese. siting in chair. Cardiovascular: Yes: Pulse Irregular. Respiratory: Yes: Diminished at bases. Gastrointestinal: Yes: Normal Bowel Sounds, Soft, Abdomen, Obese. No: Tenderness Extremities: Yes: Erythema Left foot- dressing + neuro--alert and awake Problem List - Problems (1) A-fib Code(s): I48.91 - UNSPECIFIED ATRIAL FIBRILLATION Qualifiers: (2) Depression, major, severe recurrence Code(s): F33.2 - MAJOR DEPRESSV DISORDER, RECURRENT SEVERE W/O PSYCH FEATURES (3) Primary cancer of ovary with widespread metastatic disease Code(s): C56.9 - MALIGNANT NEOPLASM OF UNSPECIFIED OVARY C80.0 - DISSEMINATED MALIGNANT NEOPLASM, UNSPECIFIED (4) Metabolic encephalopathy Code(s): G93.41 - METABOLIC ENCEPHALOPATHY (5) Intractable back pain Code(s): M54.9 - DORSALGIA, UNSPECIFIED Assessment/Plan clinically stable. Multiple problems as listed Advanced cancer MRSA positive sputum wound cultures noted Vanco dosing per level Monitor INR/labs MRSA precautions in place Discussed with nursing staff Condition remains guarded will follow coumadin per inr level. abx per i/d-- i/d f/u noted.
--- NOTE | 2017-02-17 17:53 | PN ---
Progress Note (short form) - Note Progress Note: Patient seen and examined Lt. foot pain/swelling c/o cough/phlegm Last Vital Signs Temp Pulse Resp BP Pulse Ox 97.6 F 94 H 20 124/86 95 02/17/17 14:54 02/17/17 14:54 02/17/17 14:54 02/17/17 14:54 02/17/17 09:00 Cor: RSR, No murmurs, No gallops Lungs: decreased left base Abd: Soft, Normal bowel sounds, No organomegaly Ext:lymphedema Abnormal Lab Results 02/17/17 05:35 PT with INR 29.80 H INR 2.64 H Home Medication List Medication Instructions Recorded Confirmed Type Levothyroxine [Synthroid -] 75 mcg PO DAILY 10/17/12 01/02/17 History Loratadine [Claritin -] 10 mg PO DAILY 10/17/12 01/02/17 History Metformin HCl [Glucophage] 500 mg PO BID 10/17/12 01/02/17 History [place]-3 Acid Ethyl Esters [Lovaza 1,000 mg PO TID 10/17/12 01/02/17 History -] Insulin Aspart [Novolog Flexpen] 35 unit SQ BID 10/14/16 01/02/17 History Potassium Chloride 10 meq PO DAILY 10/24/16 01/02/17 History Diltiazem Cd [Cardizem Cd -] 300 mg PO DAILY 10/25/16 10/25/16 History Furosemide [Lasix -] 40 mg PO DAILY 01/02/17 01/02/17 History Montelukast Na [Singulair -] 10 mg PO HS 01/02/17 01/02/17 History Active Medications Generic Name Dose Route Start Last Admin Trade Name Freq PRN Reason Stop Dose Admin Acetaminophen 650 mg 01/24/17 09:33 02/17/17 04:18 Tylenol - PO 650 mg Q6H PRN Administration PAIN Albuterol Sulfate 1 amp 02/17/17 14:00 Ventolin 0.083% Nebulizer Soln - NEB TID [facility] Albuterol Sulfate 1 amp 02/17/17 10:20 Ventolin 0.083% Nebulizer Soln - NEB Q4H PRN SHORT OF BREATH/WHEEZING Bupropion HCl 150 mg 01/24/17 10:00 02/17/17 10:52 Wellbutrin Xl - PO 150 mg DAILY [facility] Administration Diltiazem HCl 300 mg 01/24/17 10:00 02/17/17 10:56 Cardizem Cd - PO 300 mg DAILY [facility] Administration Docusate Sodium 100 mg 02/05/17 10:23 Colace - PO Q8H PRN CONSTIPATION Fentanyl 1 patch 02/14/17 10:00 02/17/17 10:51 Duragesic 12mcg Patch - TD 1 patch Q72H [facility] Administration Furosemide 40 mg 02/11/17 14:00 02/17/17 13:50 Lasix Injection - IVPUSH 40 mg BID@0600,1400 [facility] Administration Glipizide 5 mg 01/24/17 07:00 02/17/17 07:00 Glucotrol - PO 5 mg DAILY@0700 [facility] Administration Guaifenesin 5 ml 01/26/17 20:29 02/10/17 21:05 Diabetic Tussin Dm - PO 5 ml Q6H PRN Administration COUGH Vancomycin HCl 1,000 mg/ 250 mls @ 166.667 mls/hr 02/15/17 22:45 02/16/17 21:55 Dextrose IVPB 166.667 mls/hr Q24H [facility] Administration Insulin Aspart 1 vial 01/24/17 16:45 02/17/17 16:43 Novolog Vial Sliding Scale - SQ Not Given ACHS [facility] Protocol Levothyroxine Sodium 75 mcg 01/24/17 07:00 02/17/17 06:42 Synthroid - PO 75 mcg DAILY@0700 [facility] Administration Loratadine 10 mg 01/24/17 10:00 02/17/17 10:52 Claritin - PO 10 mg DAILY [facility] Administration Metformin HCl 500 mg 01/24/17 07:00 02/17/17 16:42 Glucophage - PO 500 mg BIDAC [facility] Administration Miscellaneous 1 each 01/30/17 11:19 01/31/17 02:15 Duragesic Patch Waste TD 1 each PRN PRN Administration PAIN Miscellaneous 1 each 02/13/17 19:44 Duragesic Patch Waste MC PRN PRN PAIN Multi-Ingredient Lotion 1 applic 01/25/17 22:00 02/17/17 10:56 Eucerin (Small Jar) - TP 1 applic BID [facility] Administration Multi-Ingredient Ointment 1 applic 02/13/17 22:00 02/17/17 10:55 Zinc Oxide TP 1 applic BID [facility] Administration Mupirocin 1 applic 02/12/17 10:00 02/17/17 10:56 Bactroban 2% Ointment - TP 1 applic DAILY [facility] Administration Joxsz-5-Igsm Ethyl Esters 1 gm 01/23/17 22:00 02/17/17 10:52 Lovaza - PO 1 gm BID [facility] Administration Ondansetron HCl 8 mg 01/23/17 12:21 02/02/17 09:10 Zofran Injection IVPB 8 mg Q12H PRN Administration NAUSEA AND/OR VOMITING Potassium Chloride 20 meq 02/03/17 12:15 02/17/17 10:52 K-Dur - PO 20 meq DAILY [facility] Administration Ranitidine HCl 150 mg 01/24/17 10:00 02/17/17 10:52 Zantac - PO 150 mg DAILY [facility] Administration Saliva Substitute 1 applic 02/09/17 10:00 02/17/17 10:55 Mouthkote Solution - MM 1 applic DAILY [facility] Administration Senna 2 tab 01/29/17 10:48 01/29/17 21:09 Senna - PO 2 tab HS PRN Administration CONSTIPATION Sodium Chloride 2 spray 02/15/17 10:49 02/15/17 12:38 [employer] [place] Nasal [place] - NS 2 sprays TID PRN Administration NASAL CONGESTION Tiotropium [place] 1 puff 01/24/17 10:00 02/17/17 10:51 Spiriva - IH 1 puff DAILY [facility] Administration Tramadol HCl 50 mg 02/17/17 17:46 Ultram - PO Q6H PRN PAIN Warfarin Sodium 2 mg 02/13/17 18:00 02/16/17 17:33 Coumadin - PO 2 mg DAILY@1800 [facility] Administration A/P 61 y/o with metastatic high grade mullerian cancer, serous adenoca s/p carbo/taxol with stable disease, but most recently has been progressing with rising CA 125 and peritoneal implants on imaging. pain control --on tramadol. on fentanyl 12 mcg Q 72hrs, afib On coumadin-being held monitor INR High grade mullerian cancer : on gemzar Lt. foot cellulitis- continue vanco---per levels ID to f/u on sensitivities of wound culture discussed overall suituation with patients daughter
[2017-02-17] MEDS: WARFARIN NA 2 MG TABLET (UD) PO SCH (18:00)
[2017-02-17] MEDS: traMADol HCL 50 MG TABLET PO PRN (18:01)
[2017-02-17] MEDS ORDERED: PT OWN MED DRAWER 7, Y5N ONE (22:32)
[2017-02-17] MEDS: VANCOMYCIN 1,000 MG in DEXTROSE 5%-WATER - 250 ML IVPB SCH (23:36)
[2017-02-17] MEDS: ALBUTEROL SO4 0.083% IH SOL 2.5 MG/3 ML VIAL.NEB. NEB SCH (23:45)
[2017-02-18] MEDS: traMADol HCL 50 MG TABLET PO PRN ×2 (02:52→21:48)
[2017-02-18] MEDS: LEVOTHYROXINE NA 75 MCG TABLET (FP) PO SCH (06:38)
[2017-02-18] MEDS: FUROSEMIDE 40 MG/4 ML INJECTABLE VIAL IVPUSH SCH ×2 (06:38→14:08)
[2017-02-18] MEDS: INSULIN SLIDING SCALE (NOVOLOG) 1 VIAL SQ SCH ×4 (06:38→21:49)
[2017-02-18] MEDS: ALBUTEROL SO4 0.083% IH SOL 2.5 MG/3 ML VIAL.NEB. NEB SCH ×3 (06:57→22:35)
[2017-02-18] MEDS ORDERED: INSULIN (NOVOLOG) ASPART 100 UNITS/ML 10ML VIAL ONE (07:03)
[2017-02-18 07:47] LABS: MCH 32.8 pg (25.7-33.7); MCHC 33.9 g/dl (32.0-36.0); MEAN PLT VOLUME 9.4 fl (7.5-11.1); PLATELET COUNT 119 K/MM3 (134-434); RDW 19.6 % (11.6-15.6); WHITE BLOOD COUNT 7.6 K/mm3 (4.0-10.0)
[2017-02-18] MEDS: glipiZIDE 5 MG TABLET (FP) PO SCH (08:00)
[2017-02-18] MEDS: metFORMIN HCL 500 MG TABLET (FP) PO SCH ×2 (08:00→16:45)
[2017-02-18 08:28] LABS: ALBUMIN 2.4 g/dl (3.4-5.0); ALK PHOS 169 U/L (45-117); ANION GAP 11 (8-16); BILIRUBIN,TOTAL 0.7 mg/dL (0.2-1.0); CALCIUM 8.5 mg/dL (8.5-10.1); CO2 31 mmol/L (21-32); CREATININE 0.8 mg/dL (0.55-1.02); GLUCOSE,RANDOM 98 mg/dL (74-106); SGOT/AST 68 U/L (15-37); SGPT/ALT 47 U/L (12-78); TOT PROT 6.2 g/dl (6.4-8.2)
[2017-02-18 08:38] LABS: INR 2.55 (0.82-1.09); PROTHROMBIN TIME (PATIENT) 28.8 SEC (9.98-11.88)
[2017-02-18] MEDS: MUPIROCIN 2% TOPICAL OINTMENT 22 GM TUBE TP SCH (10:01)
[2017-02-18] MEDS: LORATADINE 10 MG TABLET PO SCH (10:02)
[2017-02-18] MEDS: MINERAL OIL/PETROLAT/WATER TOPICAL CREAM 113 GM JAR TP SCH ×2 (10:02→21:49)
[2017-02-18] MEDS: LYTES/YERBA SANTA 240 ML BOTTLE MM SCH (10:02)
[2017-02-18] MEDS: POTASSIUM CHLORIDE TABS 20 MEQ TABLET.ER (FP) PO SCH (10:02)
[2017-02-18] MEDS: OMEGA-3 ACID ETHYL ESTERS (FATTY-ACIDS) 1 GM CAPSULE (FP) PO SCH ×2 (10:02→21:49)
[2017-02-18] MEDS: TIOTROPIUM BROMIDE 18 MCG/INH (DEVICE W/ 5 CAPSULES) IH SCH (10:02)
[2017-02-18] MEDS: ZINC OXIDE 20% TOPICAL OINTMENT 30 GM TUBE TP SCH ×2 (10:03→21:50)
[2017-02-18] MEDS: RANITIDINE HCL 150 MG TABLET (FP) PO SCH (10:03)
[2017-02-18] MEDS ORDERED: PT OWN MED DRAWER 7, Y5N ONE ×2 (10:08→23:26)
[2017-02-18] MEDS ORDERED: ALBUTEROL SO4 18 GM HFA INHALER IH PRN (10:21)
--- NOTE | 2017-02-18 10:21 | PN ---
Progress Note (short form) - Note Progress Note: PULMONARY Reports a mild cough productive of clear sputum but feels chest is looser with neb treatments. No hemoptysis. No fevers or chills. Last Vital Signs Temp Pulse Resp BP Pulse Ox 97.3 F L 98 H 16 123/57 99 02/18/17 08:59 02/18/17 09:42 02/18/17 08:59 02/18/17 08:59 02/18/17 09:42 Gen: NAD in chair Heart: RRR Lung: decreased breath sounds at the bases Abd: soft, nontender Ext: + edema CBC, BMP 02/18/17 06:00 02/18/17 06:00 Active Medications Acetaminophen (Tylenol -) 650 mg PO Q6H PRN PRN Reason: PAIN Last Admin: 02/17/17 22:26 Dose: 650 mg Albuterol Sulfate (Ventolin 0.083% Nebulizer Soln -) 1 amp NEB TID [facility] Last Admin: 02/18/17 06:57 Dose: 1 amp Albuterol Sulfate (Ventolin 0.083% Nebulizer Soln -) 1 amp NEB Q4H PRN PRN Reason: SHORT OF BREATH/WHEEZING Bupropion HCl (Wellbutrin Xl -) 150 mg PO DAILY [facility] Last Admin: 02/18/17 10:03 Dose: 150 mg Diltiazem HCl (Cardizem Cd -) 300 mg PO DAILY [facility] Last Admin: 02/18/17 10:01 Dose: 300 mg Docusate Sodium (Colace -) 100 mg PO Q8H PRN PRN Reason: CONSTIPATION Fentanyl (Duragesic 12mcg Patch -) 1 patch TD Q72H [facility] Last Admin: 02/17/17 10:51 Dose: 1 patch Furosemide (Lasix Injection -) 40 mg IVPUSH BID@0600,1400 [facility] Last Admin: 02/18/17 06:38 Dose: 40 mg Glipizide (Glucotrol -) 5 mg PO DAILY@0700 [facility] Last Admin: 02/18/17 08:00 Dose: 5 mg Guaifenesin (Diabetic Tussin Dm -) 5 ml PO Q6H PRN PRN Reason: COUGH Last Admin: 02/10/17 21:05 Dose: 5 ml Vancomycin HCl 1,000 mg/ (Dextrose) 250 mls @ 166.667 mls/hr IVPB Q24H [facility] Last Admin: 02/17/17 23:36 Dose: 166.667 mls/hr Insulin Aspart (Novolog Vial Sliding Scale -) 1 vial SQ ACHS [facility] PRN Reason: Protocol Last Admin: 02/18/17 06:38 Dose: Not Given Levothyroxine Sodium (Synthroid -) 75 mcg PO DAILY@0700 [facility] Last Admin: 02/18/17 06:38 Dose: 75 mcg Loratadine (Claritin -) 10 mg PO DAILY [facility] Last Admin: 02/18/17 10:02 Dose: 10 mg Metformin HCl (Glucophage -) 500 mg PO BIDAC [facility] Last Admin: 02/18/17 08:00 Dose: 500 mg Miscellaneous (Duragesic Patch Waste) 1 each TD PRN PRN PRN Reason: PAIN Last Admin: 01/31/17 02:15 Dose: 1 each Miscellaneous (Duragesic Patch Waste) 1 each MC PRN PRN PRN Reason: PAIN Multi-Ingredient Lotion (Eucerin (Small Jar) -) 1 applic TP BID [facility] Last Admin: 02/18/17 10:02 Dose: 1 applic Multi-Ingredient Ointment (Zinc Oxide) 1 applic TP BID [facility] Last Admin: 02/18/17 10:03 Dose: 1 applic Mupirocin (Bactroban 2% Ointment -) 1 applic TP DAILY [facility] Last Admin: 02/18/17 10:01 Dose: 1 applic Defuw-5-Zmtr Ethyl Esters (Lovaza -) 1 gm PO BID [facility] Last Admin: 02/18/17 10:02 Dose: 1 gm Ondansetron HCl (Zofran Injection) 8 mg IVPB Q12H PRN PRN Reason: NAUSEA AND/OR VOMITING Last Admin: 02/02/17 09:10 Dose: 8 mg Potassium Chloride (K-Dur -) 20 meq PO DAILY [facility] Last Admin: 02/18/17 10:02 Dose: 20 meq Ranitidine HCl (Zantac -) 150 mg PO DAILY [facility] Last Admin: 02/18/17 10:03 Dose: 150 mg Saliva Substitute (Mouthk[place] Solution -) 1 applic MM DAILY [facility] Last Admin: 02/18/17 10:02 Dose: 1 applic Senna (Senna -) 2 tab PO HS PRN PRN Reason: CONSTIPATION Last Admin: 01/29/17 21:09 Dose: 2 tab Sodium Chloride ([place] Nasal [place] -) 2 spray NS TID PRN PRN Reason: NASAL CONGESTION Last Admin: 02/15/17 12:38 Dose: 2 sprays Tiotropium [place] (Spiriva -) 1 puff IH DAILY [facility] Last Admin: 02/18/17 10:02 Dose: 1 puff Tramadol HCl (Ultram -) 75 mg PO Q6H PRN PRN Reason: PAIN Warfarin Sodium (Coumadin -) 2 mg PO DAILY@1800 [facility] Last Admin: 02/17/17 18:00 Dose: 2 mg A/P Metastatic High Grade Mullerian Cancer with Lung Mets Hemoptysis resolved Foot Infection Atrial Fibrillation Depression HTN DM Hypothyroidism Morbid Obesity - antibiotics per ID - wound care - inhaled bronchodilators, will order MDI for bedside - continue anticoagulation, keep INR 2-3 - rehab/PT
[2017-02-18 12:51] LABS: BASOPHIL %. 1 % (0-2.0); PLATELET ESTIMATE DECREASED (NORMAL); TOTAL CELLS COUNTED 100
[2017-02-18] MEDS: ONDANSETRON 4 MG/2 ML VIAL IVPB PRN (13:19)
--- NOTE | 2017-02-18 13:36 | PN ---
Progress Note, Physician Chief Complaint: feels ok today no pain - Current Medication List Current Medications: Active Medications Acetaminophen (Tylenol -) 650 mg PO Q6H PRN PRN Reason: PAIN Last Admin: 02/17/17 22:26 Dose: 650 mg Albuterol Sulfate (Ventolin 0.083% Nebulizer Soln -) 1 amp NEB TID [facility] Last Admin: 02/18/17 06:57 Dose: 1 amp Albuterol Sulfate (Ventolin 0.083% Nebulizer Soln -) 1 amp NEB Q4H PRN PRN Reason: SHORT OF BREATH/WHEEZING Albuterol Sulfate (Ventolin Hfa Inhaler -) 2 puff IH Q4H PRN PRN Reason: SHORT OF BREATH/WHEEZING Bupropion HCl (Wellbutrin Xl -) 150 mg PO DAILY [facility] Last Admin: 02/18/17 10:03 Dose: 150 mg Diltiazem HCl (Cardizem Cd -) 300 mg PO DAILY [facility] Last Admin: 02/18/17 10:01 Dose: 300 mg Docusate Sodium (Colace -) 100 mg PO Q8H PRN PRN Reason: CONSTIPATION Fentanyl (Duragesic 12mcg Patch -) 1 patch TD Q72H [facility] Last Admin: 02/17/17 10:51 Dose: 1 patch Furosemide (Lasix Injection -) 40 mg IVPUSH BID@0600,1400 [facility] Last Admin: 02/18/17 06:38 Dose: 40 mg Glipizide (Glucotrol -) 5 mg PO DAILY@0700 [facility] Last Admin: 02/18/17 08:00 Dose: 5 mg Guaifenesin (Diabetic Tussin Dm -) 5 ml PO Q6H PRN PRN Reason: COUGH Last Admin: 02/10/17 21:05 Dose: 5 ml Vancomycin HCl 1,000 mg/ (Dextrose) 250 mls @ 166.667 mls/hr IVPB Q24H [facility] Last Admin: 02/17/17 23:36 Dose: 166.667 mls/hr Insulin Aspart (Novolog Vial Sliding Scale -) 1 vial SQ ACHS [facility] PRN Reason: Protocol Last Admin: 02/18/17 11:55 Dose: Not Given Levothyroxine Sodium (Synthroid -) 75 mcg PO DAILY@0700 [facility] Last Admin: 02/18/17 06:38 Dose: 75 mcg Loratadine (Claritin -) 10 mg PO DAILY [facility] Last Admin: 02/18/17 10:02 Dose: 10 mg Metformin HCl (Glucophage -) 500 mg PO BIDAC [facility] Last Admin: 02/18/17 08:00 Dose: 500 mg Miscellaneous (Duragesic Patch Waste) 1 each TD PRN PRN PRN Reason: PAIN Last Admin: 01/31/17 02:15 Dose: 1 each Miscellaneous (Duragesic Patch Waste) 1 each MC PRN PRN PRN Reason: PAIN Multi-Ingredient Lotion (Eucerin (Small Jar) -) 1 applic TP BID [facility] Last Admin: 02/18/17 10:02 Dose: 1 applic Multi-Ingredient Ointment (Zinc Oxide) 1 applic TP BID [facility] Last Admin: 02/18/17 10:03 Dose: 1 applic Mupirocin (Bactroban 2% Ointment -) 1 applic TP DAILY [facility] Last Admin: 02/18/17 10:01 Dose: 1 applic Exhhc-3-Yjph Ethyl Esters (Lovaza -) 1 gm PO BID [facility] Last Admin: 02/18/17 10:02 Dose: 1 gm Ondansetron HCl (Zofran Injection) 8 mg IVPB Q12H PRN PRN Reason: NAUSEA AND/OR VOMITING Last Admin: 02/18/17 13:19 Dose: 8 mg Potassium Chloride (K-Dur -) 20 meq PO DAILY [facility] Last Admin: 02/18/17 10:02 Dose: 20 meq Ranitidine HCl (Zantac -) 150 mg PO DAILY [facility] Last Admin: 02/18/17 10:03 Dose: 150 mg Saliva Substitute (Mouthk[place] Solution -) 1 applic MM DAILY [facility] Last Admin: 02/18/17 10:02 Dose: 1 applic Senna (Senna -) 2 tab PO HS PRN PRN Reason: CONSTIPATION Last Admin: 01/29/17 21:09 Dose: 2 tab Sodium Chloride ([place] Nasal [place] -) 2 spray NS TID PRN PRN Reason: NASAL CONGESTION Last Admin: 02/15/17 12:38 Dose: 2 sprays Tiotropium [place] (Spiriva -) 1 puff IH DAILY [facility] Last Admin: 02/18/17 10:02 Dose: 1 puff Tramadol HCl (Ultram -) 75 mg PO Q6H PRN PRN Reason: PAIN Warfarin Sodium (Coumadin -) 2 mg PO DAILY@1800 [facility] Last Admin: 02/17/17 18:00 Dose: 2 mg - Objective Vital Signs: Vital Signs Temperature 97.3 F L 02/18/17 08:59 Pulse Rate 98 H 02/18/17 09:42 Respiratory Rate 16 02/18/17 08:59 Blood Pressure 123/57 02/18/17 08:59 O2 Sat by Pulse Oximetry (%) 99 02/18/17 09:42 Constitutional: Yes: No Distress Cardiovascular: Yes: Pulse Irregular Respiratory: Yes: CTA Bilaterally Gastrointestinal: Yes: Normal Bowel Sounds, Soft, Abdomen, Obese. No: Tenderness Edema: Yes (decreased) Labs: CBC, BMP 02/18/17 06:00 02/18/17 06:00 INR, PTT INR 2.55 (0.82-1.09) H 02/18/17 06:00 Problem List - Problems (1) A-fib Code(s): I48.91 - UNSPECIFIED ATRIAL FIBRILLATION Qualifiers: (2) Depression, major, severe recurrence Code(s): F33.2 - MAJOR DEPRESSV DISORDER, RECURRENT SEVERE W/O PSYCH FEATURES (3) Primary cancer of ovary with widespread metastatic disease Code(s): C56.9 - MALIGNANT NEOPLASM OF UNSPECIFIED OVARY C80.0 - DISSEMINATED MALIGNANT NEOPLASM, UNSPECIFIED (4) Metabolic encephalopathy Code(s): G93.41 - METABOLIC ENCEPHALOPATHY (5) Intractable back pain Code(s): M54.9 - DORSALGIA, UNSPECIFIED Assessment/Plan PLAN Pain control with Fetanyl patch and Tramadol as needed- on lasix , monitor renal function -- stable on iv Lasix BID iv antibiotics continue with meds hold chemo per Oncology MRSA in sputum ,wound monitor CBC O 2 as needed, nebs as needed
--- NOTE | 2017-02-18 13:39 | PN ---
Progress Note, Physician History of Present Illness: OOB in chair No c/o L foot pain No c/o fever/ chills Afebrile WBC 7.6 Wound c/s noted MRSA, [place] - Current Medication List Current Medications: Active Medications Acetaminophen (Tylenol -) 650 mg PO Q6H PRN PRN Reason: PAIN Last Admin: 02/17/17 22:26 Dose: 650 mg Albuterol Sulfate (Ventolin 0.083% Nebulizer Soln -) 1 amp NEB TID [facility] Last Admin: 02/18/17 06:57 Dose: 1 amp Albuterol Sulfate (Ventolin 0.083% Nebulizer Soln -) 1 amp NEB Q4H PRN PRN Reason: SHORT OF BREATH/WHEEZING Albuterol Sulfate (Ventolin Hfa Inhaler -) 2 puff IH Q4H PRN PRN Reason: SHORT OF BREATH/WHEEZING Bupropion HCl (Wellbutrin Xl -) 150 mg PO DAILY [facility] Last Admin: 02/18/17 10:03 Dose: 150 mg Diltiazem HCl (Cardizem Cd -) 300 mg PO DAILY [facility] Last Admin: 02/18/17 10:01 Dose: 300 mg Docusate Sodium (Colace -) 100 mg PO Q8H PRN PRN Reason: CONSTIPATION Fentanyl (Duragesic 12mcg Patch -) 1 patch TD Q72H [facility] Last Admin: 02/17/17 10:51 Dose: 1 patch Furosemide (Lasix Injection -) 40 mg IVPUSH BID@0600,1400 [facility] Last Admin: 02/18/17 06:38 Dose: 40 mg Glipizide (Glucotrol -) 5 mg PO DAILY@0700 [facility] Last Admin: 02/18/17 08:00 Dose: 5 mg Guaifenesin (Diabetic Tussin Dm -) 5 ml PO Q6H PRN PRN Reason: COUGH Last Admin: 02/10/17 21:05 Dose: 5 ml Vancomycin HCl 1,000 mg/ (Dextrose) 250 mls @ 166.667 mls/hr IVPB Q24H [facility] Last Admin: 02/17/17 23:36 Dose: 166.667 mls/hr Insulin Aspart (Novolog Vial Sliding Scale -) 1 vial SQ ACHS [facility] PRN Reason: Protocol Last Admin: 02/18/17 11:55 Dose: Not Given Levothyroxine Sodium (Synthroid -) 75 mcg PO DAILY@0700 [facility] Last Admin: 02/18/17 06:38 Dose: 75 mcg Loratadine (Claritin -) 10 mg PO DAILY [facility] Last Admin: 02/18/17 10:02 Dose: 10 mg Metformin HCl (Glucophage -) 500 mg PO BIDAC [facility] Last Admin: 02/18/17 08:00 Dose: 500 mg Miscellaneous (Duragesic Patch Waste) 1 each TD PRN PRN PRN Reason: PAIN Last Admin: 01/31/17 02:15 Dose: 1 each Miscellaneous (Duragesic Patch Waste) 1 each MC PRN PRN PRN Reason: PAIN Multi-Ingredient Lotion (Eucerin (Small Jar) -) 1 applic TP BID [facility] Last Admin: 02/18/17 10:02 Dose: 1 applic Multi-Ingredient Ointment (Zinc Oxide) 1 applic TP BID [facility] Last Admin: 02/18/17 10:03 Dose: 1 applic Mupirocin (Bactroban 2% Ointment -) 1 applic TP DAILY [facility] Last Admin: 02/18/17 10:01 Dose: 1 applic Wqosm-7-Eszg Ethyl Esters (Lovaza -) 1 gm PO BID [facility] Last Admin: 02/18/17 10:02 Dose: 1 gm Ondansetron HCl (Zofran Injection) 8 mg IVPB Q12H PRN PRN Reason: NAUSEA AND/OR VOMITING Last Admin: 02/18/17 13:19 Dose: 8 mg Potassium Chloride (K-Dur -) 20 meq PO DAILY [facility] Last Admin: 02/18/17 10:02 Dose: 20 meq Ranitidine HCl (Zantac -) 150 mg PO DAILY [facility] Last Admin: 02/18/17 10:03 Dose: 150 mg Saliva Substitute ([place] Solution -) 1 applic MM DAILY [facility] Last Admin: 02/18/17 10:02 Dose: 1 applic Senna (Senna -) 2 tab PO HS PRN PRN Reason: CONSTIPATION Last Admin: 01/29/17 21:09 Dose: 2 tab Sodium Chloride ([place] Nasal [place] -) 2 spray NS TID PRN PRN Reason: NASAL CONGESTION Last Admin: 02/15/17 12:38 Dose: 2 sprays Tiotropium [place] (Spiriva -) 1 puff IH DAILY [facility] Last Admin: 02/18/17 10:02 Dose: 1 puff Tramadol HCl (Ultram -) 75 mg PO Q6H PRN PRN Reason: PAIN Warfarin Sodium (Coumadin -) 2 mg PO DAILY@1800 [facility] Last Admin: 02/17/17 18:00 Dose: 2 mg - Objective Vital Signs: Vital Signs Temperature 97.3 F L 02/18/17 08:59 Pulse Rate 98 H 02/18/17 09:42 Respiratory Rate 16 02/18/17 08:59 Blood Pressure 123/57 02/18/17 08:59 O2 Sat by Pulse Oximetry (%) 99 02/18/17 09:42 Constitutional: Yes: No Distress, Obese Eyes: Yes: Conjunctiva Clear Cardiovascular: Yes: Regular Rate and Rhythm, S1 Respiratory: Yes: CTA Bilaterally Gastrointestinal: Yes: Normal Bowel Sounds, Soft, Abdomen, Obese Extremities: Yes: Other (L foot with persistant erythema, dorsum + lateral foot ulcer without drainage) Labs: CBC, BMP 02/18/17 06:00 02/18/17 06:00 INR, PTT INR 2.55 (0.82-1.09) H 02/18/17 06:00 Assessment/Plan Metastatic carcinoma Cellulitis L foot + Wound c/s MRSA, [place] Continue vancomycin Elevation [place] likely skin colonizer, however in light of persistant cellulitis, immunocompromised state will add flagyl
[2017-02-18] MEDS: metroNIDAZOLE 250 MG TABLET PO SCH ×2 (14:08→21:49)
[2017-02-18] MEDS: WARFARIN NA 2 MG TABLET (UD) PO SCH (17:18)
--- NOTE | 2017-02-18 17:22 | PN ---
Progress Note (short form) - Note Progress Note: Patient seen and examined Complains of back pains Foot dressed - according to patient remains erythematous Last Vital Signs Temp Pulse Resp BP Pulse Ox 97.4 F L 97 H 20 106/67 99 02/18/17 13:46 02/18/17 13:46 02/18/17 13:46 02/18/17 13:46 02/18/17 09:42 No icterus lungs - decrease breath sounds Cor -RSR Abd- obese LE- edema Left foot dressed CBC, BMP 02/18/17 06:00 02/18/17 06:00 Current Medications Generic Name Dose Route Start Last Admin Trade Name Freq PRN Reason Stop Dose Admin Acetaminophen 650 mg 01/24/17 09:33 02/17/17 22:26 Tylenol - PO 650 mg Q6H PRN Administration PAIN Albuterol Sulfate 1 amp 02/17/17 14:00 02/18/17 14:40 Ventolin 0.083% Nebulizer Soln - NEB 1 amp TID [facility] Administration Albuterol Sulfate 1 amp 02/17/17 10:20 Ventolin 0.083% Nebulizer Soln - NEB Q4H PRN SHORT OF BREATH/WHEEZING Albuterol Sulfate 2 puff 02/18/17 10:21 Ventolin Hfa Inhaler - IH Q4H PRN SHORT OF BREATH/WHEEZING Bupropion HCl 150 mg 01/24/17 10:00 02/18/17 10:03 Wellbutrin Xl - PO 150 mg DAILY [facility] Administration Diltiazem HCl 300 mg 01/24/17 10:00 02/18/17 10:01 Cardizem Cd - PO 300 mg DAILY [facility] Administration Docusate Sodium 100 mg 02/05/17 10:23 Colace - PO Q8H PRN CONSTIPATION Fentanyl 1 patch 02/14/17 10:00 02/17/17 10:51 Duragesic 12mcg Patch - TD 1 patch Q72H [facility] Administration Furosemide 40 mg 02/11/17 14:00 02/18/17 14:08 Lasix Injection - IVPUSH 40 mg BID@0600,1400 [facility] Administration Glipizide 5 mg 01/24/17 07:00 02/18/17 08:00 Glucotrol - PO 5 mg DAILY@0700 [facility] Administration Guaifenesin 5 ml 01/26/17 20:29 02/10/17 21:05 Diabetic Tussin Dm - PO 5 ml Q6H PRN Administration COUGH Vancomycin HCl 1,000 mg/ 250 mls @ 166.667 mls/hr 02/15/17 22:45 02/17/17 23:36 Dextrose IVPB 166.667 mls/hr Q24H [facility] Administration Insulin Aspart 1 vial 01/24/17 16:45 02/18/17 17:02 Novolog Vial Sliding Scale - SQ Not Given ACHS [facility] Protocol Levothyroxine Sodium 75 mcg 01/24/17 07:00 02/18/17 06:38 Synthroid - PO 75 mcg DAILY@0700 [facility] Administration Loratadine 10 mg 01/24/17 10:00 02/18/17 10:02 Claritin - PO 10 mg DAILY [facility] Administration Metformin HCl 500 mg 01/24/17 07:00 02/18/17 08:00 Glucophage - PO 500 mg BIDAC [facility] Administration Metronidazole 500 mg 02/18/17 14:00 02/18/17 14:08 Flagyl - PO 500 mg TID [facility] Administration Miscellaneous 1 each 01/30/17 11:19 01/31/17 02:15 Duragesic Patch Waste TD 1 each PRN PRN Administration PAIN Miscellaneous 1 each 02/13/17 19:44 Duragesic Patch Waste [facility] PRN PRN PAIN Multi-Ingredient Lotion 1 applic 01/25/17 22:00 02/18/17 10:02 Eucerin (Small Jar) - TP 1 applic BID [facility] Administration Multi-Ingredient Ointment 1 applic 02/13/17 22:00 02/18/17 10:03 Zinc Oxide TP 1 applic BID [facility] Administration Mupirocin 1 applic 02/12/17 10:00 02/18/17 10:01 Bactroban 2% Ointment - TP 1 applic DAILY [facility] Administration Nyvgr-5-Almo Ethyl Esters 1 gm 01/23/17 22:00 02/18/17 10:02 Lovaza - PO 1 gm BID [facility] Administration Ondansetron HCl 8 mg 01/23/17 12:21 02/18/17 13:19 Zofran Injection IVPB 8 mg Q12H PRN Administration NAUSEA AND/OR VOMITING Potassium Chloride 20 meq 02/03/17 12:15 02/18/17 10:02 K-Dur - PO 20 meq DAILY [facility] Administration Ranitidine HCl 150 mg 01/24/17 10:00 02/18/17 10:03 Zantac - PO 150 mg DAILY [facility] Administration Saliva Substitute 1 applic 02/09/17 10:00 02/18/17 10:02 Mouthk[place] Solution - MM 1 applic DAILY [facility] Administration Senna 2 tab 01/29/17 10:48 01/29/17 21:09 Senna - PO 2 tab HS PRN Administration CONSTIPATION Sodium Chloride 2 spray 02/15/17 10:49 02/15/17 12:38 [place] Nasal [place] - NS 2 sprays TID PRN Administration NASAL CONGESTION Tiotropium [place] 1 puff 01/24/17 10:00 02/18/17 10:02 Spiriva - IH 1 puff DAILY [facility] Administration Tramadol HCl 75 mg 02/18/17 08:05 Ultram - PO Q6H PRN PAIN Warfarin Sodium 2 mg 02/13/17 18:00 02/17/17 18:00 Coumadin - PO 2 mg DAILY@1800 [facility] Administration Impression: Metastatic Ovarian ca DM Infected foot Morbid obesity s/p chemotherapy a/c thrombocytopenia --?? meds, ?? antibiotics, ??infection, Plan: Ab per ID Monitor CBC.
[2017-02-18] MEDS: VANCOMYCIN 1,000 MG in DEXTROSE 5%-WATER - 250 ML IVPB SCH (23:36)
[2017-02-19] MEDS: ACETAMINOPHEN 325 MG TABLET (FP) PO PRN ×2 (03:55→22:11)
[2017-02-19] MEDS: INSULIN SLIDING SCALE (NOVOLOG) 1 VIAL SQ SCH ×4 (07:05→22:04)
[2017-02-19] MEDS: metroNIDAZOLE 250 MG TABLET PO SCH ×3 (07:07→22:03)
[2017-02-19] MEDS: LEVOTHYROXINE NA 75 MCG TABLET (FP) PO SCH (07:07)
[2017-02-19] MEDS: FUROSEMIDE 40 MG/4 ML INJECTABLE VIAL IVPUSH SCH (07:08)
[2017-02-19] MEDS: ALBUTEROL SO4 0.083% IH SOL 2.5 MG/3 ML VIAL.NEB. NEB SCH ×3 (07:29→22:14)
[2017-02-19 08:27] LABS: INR 2.58 (0.82-1.09); PROTHROMBIN TIME (PATIENT) 29.2 SEC (9.98-11.88)
[2017-02-19] MEDS ORDERED: PT OWN MED DRAWER 7, Y5N ONE (10:17)
[2017-02-19] MEDS: TIOTROPIUM BROMIDE 18 MCG/INH (DEVICE W/ 5 CAPSULES) IH SCH (10:24)
[2017-02-19] MEDS: POTASSIUM CHLORIDE TABS 20 MEQ TABLET.ER (FP) PO SCH (10:24)
[2017-02-19] MEDS: LORATADINE 10 MG TABLET PO SCH (10:24)
[2017-02-19] MEDS: RANITIDINE HCL 150 MG TABLET (FP) PO SCH (10:24)
[2017-02-19] MEDS: OMEGA-3 ACID ETHYL ESTERS (FATTY-ACIDS) 1 GM CAPSULE (FP) PO SCH ×2 (10:24→22:03)
[2017-02-19] MEDS: glipiZIDE 5 MG TABLET (FP) PO SCH (10:25)
[2017-02-19] MEDS: metFORMIN HCL 500 MG TABLET (FP) PO SCH ×2 (10:25→17:24)
[2017-02-19] MEDS: MUPIROCIN 2% TOPICAL OINTMENT 22 GM TUBE TP SCH (10:26)
[2017-02-19] MEDS: MINERAL OIL/PETROLAT/WATER TOPICAL CREAM 113 GM JAR TP SCH ×2 (10:26→22:04)
[2017-02-19] MEDS: LYTES/YERBA SANTA 240 ML BOTTLE MM SCH (10:26)
[2017-02-19] MEDS: ZINC OXIDE 20% TOPICAL OINTMENT 30 GM TUBE TP SCH ×2 (10:27→22:05)
--- NOTE | 2017-02-19 12:30 | PN ---
Progress Note, Physician Chief Complaint: no distress - Current Medication List Current Medications: Active Medications Acetaminophen (Tylenol -) 650 mg PO Q6H PRN PRN Reason: PAIN Last Admin: 02/19/17 03:55 Dose: 650 mg Albuterol Sulfate (Ventolin 0.083% Nebulizer Soln -) 1 amp NEB TID [facility] Last Admin: 02/19/17 07:29 Dose: 1 amp Albuterol Sulfate (Ventolin 0.083% Nebulizer Soln -) 1 amp NEB Q4H PRN PRN Reason: SHORT OF BREATH/WHEEZING Albuterol Sulfate (Ventolin Hfa Inhaler -) 2 puff IH Q4H PRN PRN Reason: SHORT OF BREATH/WHEEZING Bupropion HCl (Wellbutrin Xl -) 150 mg PO DAILY [facility] Last Admin: 02/19/17 10:24 Dose: 150 mg Diltiazem HCl (Cardizem Cd -) 300 mg PO DAILY [facility] Last Admin: 02/19/17 10:26 Dose: 300 mg Docusate Sodium (Colace -) 100 mg PO Q8H PRN PRN Reason: CONSTIPATION Fentanyl (Duragesic 12mcg Patch -) 1 patch TD Q72H [facility] Last Admin: 02/17/17 10:51 Dose: 1 patch Furosemide (Lasix -) 40 mg PO BID@0600,1400 [facility] Glipizide (Glucotrol -) 5 mg PO DAILY@0700 [facility] Last Admin: 02/19/17 10:25 Dose: 5 mg Guaifenesin (Diabetic Tussin Dm -) 5 ml PO Q6H PRN PRN Reason: COUGH Last Admin: 02/10/17 21:05 Dose: 5 ml Vancomycin HCl 1,000 mg/ (Dextrose) 250 mls @ 166.667 mls/hr IVPB Q24H [facility] Last Admin: 02/18/17 23:36 Dose: 166.667 mls/hr Insulin Aspart (Novolog Vial Sliding Scale -) 1 vial SQ ACHS [facility] PRN Reason: Protocol Last Admin: 02/19/17 12:04 Dose: Not Given Levothyroxine Sodium (Synthroid -) 75 mcg PO DAILY@0700 [facility] Last Admin: 02/19/17 07:07 Dose: 75 mcg Loratadine (Claritin -) 10 mg PO DAILY [facility] Last Admin: 02/19/17 10:24 Dose: 10 mg Metformin HCl (Glucophage -) 500 mg PO BIDAC [facility] Last Admin: 02/19/17 10:25 Dose: 500 mg Metronidazole (Flagyl -) 500 mg PO TID [facility] Last Admin: 02/19/17 07:07 Dose: 500 mg Miscellaneous (Duragesic Patch Waste) 1 each TD PRN PRN PRN Reason: PAIN Last Admin: 01/31/17 02:15 Dose: 1 each Miscellaneous (Duragesic Patch Waste) 1 each MC PRN PRN PRN Reason: PAIN Multi-Ingredient Lotion (Eucerin (Small Jar) -) 1 applic TP BID [facility] Last Admin: 02/19/17 10:26 Dose: 1 applic Multi-Ingredient Ointment (Zinc Oxide) 1 applic TP BID [facility] Last Admin: 02/19/17 10:27 Dose: 1 applic Mupirocin (Bactroban 2% Ointment -) 1 applic TP DAILY [facility] Last Admin: 02/19/17 10:26 Dose: 1 applic Uvmrp-2-Thrr Ethyl Esters (Lovaza -) 1 gm PO BID [facility] Last Admin: 02/19/17 10:24 Dose: 1 gm Ondansetron HCl (Zofran Injection) 8 mg IVPB Q12H PRN PRN Reason: NAUSEA AND/OR VOMITING Last Admin: 02/18/17 13:19 Dose: 8 mg Potassium Chloride (K-Dur -) 20 meq PO DAILY [facility] Last Admin: 02/19/17 10:24 Dose: 20 meq Ranitidine HCl (Zantac -) 150 mg PO DAILY [facility] Last Admin: 02/19/17 10:24 Dose: 150 mg Saliva Substitute (Mouthk[place] Solution -) 1 applic MM DAILY [facility] Last Admin: 02/19/17 10:26 Dose: 1 applic Senna (Senna -) 2 tab PO HS PRN PRN Reason: CONSTIPATION Last Admin: 01/29/17 21:09 Dose: 2 tab Sodium Chloride ([place] Nasal [place] -) 2 spray NS TID PRN PRN Reason: NASAL CONGESTION Last Admin: 02/15/17 12:38 Dose: 2 sprays Tiotropium [place] (Spiriva -) 1 puff IH DAILY [facility] Last Admin: 02/19/17 10:24 Dose: 1 puff Tramadol HCl (Ultram -) 75 mg PO Q6H PRN PRN Reason: PAIN Last Admin: 02/18/17 21:48 Dose: 75 mg Warfarin Sodium (Coumadin -) 2 mg PO DAILY@1800 [facility] Last Admin: 02/18/17 17:18 Dose: 2 mg - Objective Vital Signs: Vital Signs Temperature 97.8 F 02/19/17 06:09 Pulse Rate 100 H 02/19/17 10:28 Respiratory Rate 18 02/19/17 10:28 Blood Pressure 107/67 02/19/17 10:28 O2 Sat by Pulse Oximetry (%) 96 02/18/17 21:00 Constitutional: Yes: No Distress Cardiovascular: Yes: Pulse Irregular Respiratory: Yes: Diminished Gastrointestinal: Yes: Normal Bowel Sounds, Soft, Abdomen, Obese. No: Tenderness Edema: Yes (decreased) Labs: CBC, BMP 02/18/17 06:00 02/18/17 06:00 INR, PTT INR 2.58 (0.82-1.09) H 02/19/17 06:15 Problem List - Problems (1) A-fib Code(s): I48.91 - UNSPECIFIED ATRIAL FIBRILLATION Qualifiers: (2) Depression, major, severe recurrence Code(s): F33.2 - MAJOR DEPRESSV DISORDER, RECURRENT SEVERE W/O PSYCH FEATURES (3) Primary cancer of ovary with widespread metastatic disease Code(s): C56.9 - MALIGNANT NEOPLASM OF UNSPECIFIED OVARY C80.0 - DISSEMINATED MALIGNANT NEOPLASM, UNSPECIFIED (4) Metabolic encephalopathy Code(s): G93.41 - METABOLIC ENCEPHALOPATHY (5) Intractable back pain Code(s): M54.9 - DORSALGIA, UNSPECIFIED Assessment/Plan PLAN Pain control with Fetanyl patch and Tramadol as needed- on lasix , monitor renal function -- stable on iv Lasix BID , will change to PO iv antibiotics continue with meds hold chemo per Oncology MRSA in sputum ,wound monitor CBC O 2 as needed, nebs as needed
--- NOTE | 2017-02-19 12:41 | PN ---
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
[2017-02-19] MEDS: FUROSEMIDE 40 MG TABLET (FP) PO SCH (15:38)
[2017-02-19] MEDS: WARFARIN NA 2 MG TABLET (UD) PO SCH (17:27)
[2017-02-19] MEDS: VANCOMYCIN 1,000 MG in DEXTROSE 5%-WATER - 250 ML IVPB SCH (22:06)
--- NOTE | 2017-02-19 23:05 | PN ---
Progress Note (short form) - Note Progress Note: Patient seen and examined c/o cough/phlegm Last Vital Signs Temp Pulse Resp BP Pulse Ox 98.2 F 99 H 18 116/50 97 02/21/17 15:17 02/21/17 15:17 02/21/17 15:17 02/21/17 15:17 02/20/17 20:51 Cor: RSR, No murmurs, No gallops Lungs: decreased left base Abd: Soft, Normal bowel sounds, No organomegaly Ext:lymphedema Abnormal Lab Results 02/21/17 02/21/17 02/21/17 07:00 07:00 07:00 RBC 3.21 L Hgb 10.5 L Hct 31.2 L MCV 97.0 H RDW 19.9 H PT with INR 31.30 H INR 2.77 H Sodium 134 L Potassium 3.4 L Chloride 94 L Random Glucose 119 H D Calcium 8.4 L Active Medications Acetaminophen (Tylenol -) 650 mg PO Q6H PRN PRN Reason: PAIN Last Admin: 02/21/17 14:25 Dose: 650 mg Albuterol Sulfate (Ventolin 0.083% Nebulizer Soln -) 1 amp NEB TID [facility] Last Admin: 02/21/17 14:21 Dose: 1 amp Albuterol Sulfate (Ventolin 0.083% Nebulizer Soln -) 1 amp NEB Q4H PRN PRN Reason: SHORT OF BREATH/WHEEZING Albuterol Sulfate (Ventolin Hfa Inhaler -) 2 puff IH Q4H PRN PRN Reason: SHORT OF BREATH/WHEEZING Bupropion HCl (Wellbutrin Xl -) 150 mg PO DAILY [facility] Last Admin: 02/21/17 11:25 Dose: 150 mg Diltiazem HCl (Cardizem Cd -) 300 mg PO DAILY [facility] Last Admin: 02/21/17 11:25 Dose: 300 mg Docusate Sodium (Colace -) 100 mg PO Q8H PRN PRN Reason: CONSTIPATION Furosemide (Lasix -) 40 mg PO BID@0600,1400 [facility] Last Admin: 02/21/17 14:11 Dose: 40 mg Glipizide (Glucotrol -) 5 mg PO DAILY@0700 [facility] Last Admin: 02/21/17 06:32 Dose: 5 mg Guaifenesin (Diabetic Tussin Dm -) 5 ml PO Q6H PRN PRN Reason: COUGH Last Admin: 02/10/17 21:05 Dose: 5 ml Insulin Aspart (Novolog Vial Sliding Scale -) 1 vial SQ ACHS [facility] PRN Reason: Protocol Last Admin: 02/21/17 11:26 Dose: Not Given Levothyroxine Sodium (Synthroid -) 75 mcg PO DAILY@0700 [facility] Last Admin: 02/21/17 06:32 Dose: 75 mcg Lidocaine (Lidoderm Patch -) 1 patch TP DAILY@2330 [facility] Last Admin: 02/20/17 23:05 Dose: 1 patch Loratadine (Claritin -) 10 mg PO DAILY [facility] Last Admin: 02/21/17 11:25 Dose: 10 mg Metformin HCl (Glucophage -) 500 mg PO BIDAC [facility] Last Admin: 02/21/17 16:45 Dose: 500 mg Metronidazole (Flagyl -) 500 mg PO TID [facility] Last Admin: 02/21/17 14:11 Dose: 500 mg Miscellaneous (Duragesic Patch Waste) 1 each PRN PRN PRN Reason: PAIN Miscellaneous (Lidoderm Patch Removal) 1 each MC DAILY@1130 [facility] Last Admin: 02/21/17 14:11 Dose: 1 each Multi-Ingredient Lotion (Eucerin (Small Jar) -) 1 applic TP BID [facility] Last Admin: 02/21/17 11:26 Dose: 1 applic Multi-Ingredient Ointment (Zinc Oxide) 1 applic TP BID [facility] Last Admin: 02/21/17 11:26 Dose: 1 applic Mupirocin (Bactroban 2% Ointment -) 1 applic TP DAILY [facility] Last Admin: 02/21/17 11:25 Dose: 1 applic [id number] Ethyl Esters (Lovaza -) 1 gm PO BID [facility] Last Admin: 02/21/17 11:25 Dose: 1 gm Ondansetron HCl (Zofran Injection) 8 mg IVPB Q12H PRN PRN Reason: NAUSEA AND/OR VOMITING Last Admin: 02/18/17 13:19 Dose: 8 mg Polyethylene Glycol (Miralax (For Daily Use) -) 17 gm PO DAILY [facility] Potassium Chloride (K-Dur -) 20 meq PO DAILY [facility] Last Admin: 02/21/17 11:25 Dose: 20 meq Ranitidine HCl (Zantac -) 150 mg PO DAILY [facility] Last Admin: 02/21/17 11:25 Dose: 150 mg Saliva Substitute ([place] Solution -) 1 applic MM DAILY [facility] Last Admin: 02/21/17 11:26 Dose: 1 applic Senna (Senna -) 2 tab PO HS PRN PRN Reason: CONSTIPATION Last Admin: 01/29/17 21:09 Dose: 2 tab Sodium Chloride ([place] Nasal [place] -) 2 spray NS TID PRN PRN Reason: NASAL CONGESTION Last Admin: 02/15/17 12:38 Dose: 2 sprays Tiotropium [place] (Spiriva -) 1 puff IH DAILY [facility] Last Admin: 02/21/17 11:28 Dose: 1 puff Tramadol HCl (Ultram -) 50 mg PO Q6H PRN PRN Reason: PAIN Last Admin: 02/21/17 16:45 Dose: 50 mg Trimethoprim/Sulfamethoxazole (Bactrim Ds -) 1 each PO BID [facility] A/P 61 y/o with metastatic high grade mullerian cancer, serous adenoca s/p carbo/taxol with stable disease, but most recently has been progressing with rising CA 125 and peritoneal implants on imaging. pain control --on tramadol. on fentanyl 12 mcg Q 72hrs, lidoderm patch afib On coumadin-being held monitor INR High grade mullerian cancer : on gemzar. Next dose on Friday Lt. foot cellulitis- to switch to Po constipation : add miralax discussed with patient/family in detail d/c planning home
[2017-02-19] MEDS: LIDOCAINE 5% TOPICAL PATCH TP SCH (23:11)
[2017-02-20] MEDS: ACETAMINOPHEN 325 MG TABLET (FP) PO PRN (03:50)
[2017-02-20] MEDS: ALBUTEROL SO4 0.083% IH SOL 2.5 MG/3 ML VIAL.NEB. NEB SCH ×3 (06:25→22:11)
[2017-02-20] MEDS: INSULIN SLIDING SCALE (NOVOLOG) 1 VIAL SQ SCH ×4 (06:26→21:45)
[2017-02-20] MEDS: FUROSEMIDE 40 MG TABLET (FP) PO SCH ×2 (06:26→13:35)
[2017-02-20] MEDS: glipiZIDE 5 MG TABLET (FP) PO SCH (06:26)
[2017-02-20] MEDS: LEVOTHYROXINE NA 75 MCG TABLET (FP) PO SCH (06:26)
[2017-02-20] MEDS: metFORMIN HCL 500 MG TABLET (FP) PO SCH ×2 (06:26→17:27)
[2017-02-20] MEDS: metroNIDAZOLE 250 MG TABLET PO SCH ×3 (06:27→21:44)
[2017-02-20 08:44] LABS: MCH 32.9 pg (25.7-33.7); MCHC 33.8 g/dl (32.0-36.0); MEAN CELL VOLUME 97.2 fl (80-96); MEAN PLT VOLUME 9.2 fl (7.5-11.1); RDW 20.1 % (11.6-15.6); WHITE BLOOD COUNT 7.9 K/mm3 (4.0-10.0)
[2017-02-20 09:16] LABS: INR 2.8 (0.82-1.09); PROTHROMBIN TIME (PATIENT) 31.6 SEC (9.98-11.88)
[2017-02-20 09:24] LABS: ALBUMIN 2.2 g/dl (3.4-5.0); ALK PHOS 153 U/L (45-117); ANION GAP 9 (8-16); CALCIUM 8.3 mg/dL (8.5-10.1); CO2 33 mmol/L (21-32); CREATININE 0.8 mg/dL (0.55-1.02); GLUCOSE,RANDOM 81 mg/dL (74-106); SGOT/AST 51 U/L (15-37); SGPT/ALT 35 U/L (12-78); TOT PROT 5.9 g/dl (6.4-8.2)
[2017-02-20 10:10] LABS: PLATELET ESTIMATE ADEQUATE (NORMAL)
[2017-02-20] MEDS: RANITIDINE HCL 150 MG TABLET (FP) PO SCH (10:12)
[2017-02-20] MEDS: LORATADINE 10 MG TABLET PO SCH (10:12)
[2017-02-20] MEDS: TIOTROPIUM BROMIDE 18 MCG/INH (DEVICE W/ 5 CAPSULES) IH SCH (10:12)
[2017-02-20] MEDS: fentaNYL 12mcg/hr PATCH.TD72 TD SCH (10:12)
[2017-02-20] MEDS: POTASSIUM CHLORIDE TABS 20 MEQ TABLET.ER (FP) PO SCH (10:12)
[2017-02-20] MEDS: OMEGA-3 ACID ETHYL ESTERS (FATTY-ACIDS) 1 GM CAPSULE (FP) PO SCH ×2 (10:12→21:44)
[2017-02-20] MEDS: MINERAL OIL/PETROLAT/WATER TOPICAL CREAM 113 GM JAR TP SCH ×2 (10:13→21:45)
[2017-02-20] MEDS: LYTES/YERBA SANTA 240 ML BOTTLE MM SCH (10:13)
[2017-02-20 10:14] LABS: MYELOCYTE 1 % (0-2); TOTAL CELLS COUNTED 100
--- NOTE | 2017-02-20 11:06 | PN ---
Progress Note (short form) - Note Progress Note: PULMONARY Reports a mild cough productive of green sputum. No hemoptysis. No fevers or chills. Last Vital Signs Temp Pulse Resp BP Pulse Ox 98.0 F 100 H 22 102/62 98 02/20/17 10:00 02/20/17 10:00 02/20/17 10:00 02/20/17 10:00 02/19/17 21:00 Gen: NAD in chair Heart: RRR Lung: decreased breath sounds at the bases Abd: soft, nontender Ext: + edema CBC, BMP 02/20/17 07:00 02/20/17 07:00 Active Medications Acetaminophen (Tylenol -) 650 mg PO Q6H PRN PRN Reason: PAIN Last Admin: 02/20/17 03:50 Dose: 650 mg Albuterol Sulfate (Ventolin 0.083% Nebulizer Soln -) 1 amp NEB TID [facility] Last Admin: 02/20/17 06:25 Dose: 1 amp Albuterol Sulfate (Ventolin 0.083% Nebulizer Soln -) 1 amp NEB Q4H PRN PRN Reason: SHORT OF BREATH/WHEEZING Albuterol Sulfate (Ventolin Hfa Inhaler -) 2 puff IH Q4H PRN PRN Reason: SHORT OF BREATH/WHEEZING Bupropion HCl (Wellbutrin Xl -) 150 mg PO DAILY [facility] Last Admin: 02/20/17 10:12 Dose: 150 mg Diltiazem HCl (Cardizem Cd -) 300 mg PO DAILY [facility] Last Admin: 02/20/17 10:12 Dose: 300 mg Docusate Sodium (Colace -) 100 mg PO Q8H PRN PRN Reason: CONSTIPATION Fentanyl (Duragesic 12mcg Patch -) 1 patch TD Q72H [facility] Last Admin: 02/20/17 10:12 Dose: 1 patch Furosemide (Lasix -) 40 mg PO BID@0600,1400 [facility] Last Admin: 02/20/17 06:26 Dose: 40 mg Glipizide (Glucotrol -) 5 mg PO DAILY@0700 [facility] Last Admin: 02/20/17 06:26 Dose: 5 mg Guaifenesin (Diabetic Tussin Dm -) 5 ml PO Q6H PRN PRN Reason: COUGH Last Admin: 02/10/17 21:05 Dose: 5 ml Vancomycin HCl 1,000 mg/ (Dextrose) 250 mls @ 166.667 mls/hr IVPB Q24H [facility] Last Admin: 02/19/17 22:06 Dose: 166.667 mls/hr Insulin Aspart (Novolog Vial Sliding Scale -) 1 vial SQ ACHS [facility] PRN Reason: Protocol Last Admin: 02/20/17 06:26 Dose: Not Given Levothyroxine Sodium (Synthroid -) 75 mcg PO DAILY@0700 [facility] Last Admin: 02/20/17 06:26 Dose: 75 mcg Lidocaine (Lidoderm Patch -) 1 patch TP DAILY@2330 [facility] Last Admin: 02/19/17 23:11 Dose: 1 patch Loratadine (Claritin -) 10 mg PO DAILY [facility] Last Admin: 02/20/17 10:12 Dose: 10 mg Metformin HCl (Glucophage -) 500 mg PO BIDAC [facility] Last Admin: 02/20/17 06:26 Dose: 500 mg Metronidazole (Flagyl -) 500 mg PO TID [facility] Last Admin: 02/20/17 06:27 Dose: 500 mg Miscellaneous (Duragesic Patch Waste) 1 each TD PRN PRN PRN Reason: PAIN Last Admin: 01/31/17 02:15 Dose: 1 each Miscellaneous (Duragesic Patch Waste) 1 each MC PRN PRN PRN Reason: PAIN Miscellaneous (Lidoderm Patch Removal) 1 each MC DAILY@1130 [facility] Multi-Ingredient Lotion (Eucerin (Small Jar) -) 1 applic TP BID [facility] Last Admin: 02/20/17 10:13 Dose: 1 applic Multi-Ingredient Ointment (Zinc Oxide) 1 applic TP BID [facility] Last Admin: 02/19/17 22:05 Dose: 1 applic Mupirocin (Bactroban 2% Ointment -) 1 applic TP DAILY [facility] Last Admin: 02/19/17 10:26 Dose: 1 applic [id number] Ethyl Esters (Lovaza -) 1 gm PO BID [facility] Last Admin: 02/20/17 10:12 Dose: 1 gm Ondansetron HCl (Zofran Injection) 8 mg IVPB Q12H PRN PRN Reason: NAUSEA AND/OR VOMITING Last Admin: 02/18/17 13:19 Dose: 8 mg Potassium Chloride (K-Dur -) 20 meq PO DAILY [facility] Last Admin: 02/20/17 10:12 Dose: 20 meq Ranitidine HCl (Zantac -) 150 mg PO DAILY [facility] Last Admin: 02/20/17 10:12 Dose: 150 mg Saliva Substitute (Mouthk[place] Solution -) 1 applic MM DAILY [facility] Last Admin: 02/20/17 10:13 Dose: 1 applic Senna (Senna -) 2 tab PO HS PRN PRN Reason: CONSTIPATION Last Admin: 01/29/17 21:09 Dose: 2 tab Sodium Chloride ([place] Nasal [place] -) 2 spray NS TID PRN PRN Reason: NASAL CONGESTION Last Admin: 02/15/17 12:38 Dose: 2 sprays Tiotropium [place] (Spiriva -) 1 puff IH DAILY [facility] Last Admin: 02/20/17 10:12 Dose: 1 puff Tramadol HCl (Ultram -) 75 mg PO Q6H PRN PRN Reason: PAIN Last Admin: 02/18/17 21:48 Dose: 75 mg Warfarin Sodium (Coumadin -) 2 mg PO DAILY@1800 [facility] Last Admin: 02/19/17 17:27 Dose: 2 mg A/P 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
[2017-02-20] MEDS: FENTANYL PATCH WASTE TD PRN (12:16)
[2017-02-20] MEDS: LIDOCAINE PATCH REMOVAL MC SCH (12:18)
--- NOTE | 2017-02-20 12:57 | PN ---
Progress Note, Physician Chief Complaint: no distress has pain in back- not too severe - Current Medication List Current Medications: Active Medications Acetaminophen (Tylenol -) 650 mg PO Q6H PRN PRN Reason: PAIN Last Admin: 02/20/17 03:50 Dose: 650 mg Albuterol Sulfate (Ventolin 0.083% Nebulizer Soln -) 1 amp NEB TID [facility] Last Admin: 02/20/17 06:25 Dose: 1 amp Albuterol Sulfate (Ventolin 0.083% Nebulizer Soln -) 1 amp NEB Q4H PRN PRN Reason: SHORT OF BREATH/WHEEZING Albuterol Sulfate (Ventolin Hfa Inhaler -) 2 puff IH Q4H PRN PRN Reason: SHORT OF BREATH/WHEEZING Bupropion HCl (Wellbutrin Xl -) 150 mg PO DAILY [facility] Last Admin: 02/20/17 10:12 Dose: 150 mg Diltiazem HCl (Cardizem Cd -) 300 mg PO DAILY [facility] Last Admin: 02/20/17 10:12 Dose: 300 mg Docusate Sodium (Colace -) 100 mg PO Q8H PRN PRN Reason: CONSTIPATION Fentanyl (Duragesic 12mcg Patch -) 1 patch TD Q72H [facility] Last Admin: 02/20/17 10:12 Dose: 1 patch Furosemide (Lasix -) 40 mg PO BID@0600,1400 [facility] Last Admin: 02/20/17 06:26 Dose: 40 mg Glipizide (Glucotrol -) 5 mg PO DAILY@0700 [facility] Last Admin: 02/20/17 06:26 Dose: 5 mg Guaifenesin (Diabetic Tussin Dm -) 5 ml PO Q6H PRN PRN Reason: COUGH Last Admin: 02/10/17 21:05 Dose: 5 ml Vancomycin HCl 1,000 mg/ (Dextrose) 250 mls @ 166.667 mls/hr IVPB Q24H [facility] Last Admin: 02/19/17 22:06 Dose: 166.667 mls/hr Insulin Aspart (Novolog Vial Sliding Scale -) 1 vial SQ ACHS [facility] PRN Reason: Protocol Last Admin: 02/20/17 12:10 Dose: Not Given Levothyroxine Sodium (Synthroid -) 75 mcg PO DAILY@0700 [facility] Last Admin: 02/20/17 06:26 Dose: 75 mcg Lidocaine (Lidoderm Patch -) 1 patch TP DAILY@2330 [facility] Last Admin: 02/19/17 23:11 Dose: 1 patch Loratadine (Claritin -) 10 mg PO DAILY [facility] Last Admin: 02/20/17 10:12 Dose: 10 mg Metformin HCl (Glucophage -) 500 mg PO BIDAC [facility] Last Admin: 02/20/17 06:26 Dose: 500 mg Metronidazole (Flagyl -) 500 mg PO TID [facility] Last Admin: 02/20/17 06:27 Dose: 500 mg Miscellaneous (Duragesic Patch Waste) 1 each TD PRN PRN PRN Reason: PAIN Last Admin: 02/20/17 12:16 Dose: 1 each Miscellaneous (Duragesic Patch Waste) 1 each MC PRN PRN PRN Reason: PAIN Miscellaneous (Lidoderm Patch Removal) 1 each MC DAILY@1130 [facility] Last Admin: 02/20/17 12:18 Dose: 1 each Multi-Ingredient Lotion (Eucerin (Small Jar) -) 1 applic TP BID [facility] Last Admin: 02/20/17 10:13 Dose: 1 applic Multi-Ingredient Ointment (Zinc Oxide) 1 applic TP BID [facility] Last Admin: 02/19/17 22:05 Dose: 1 applic Mupirocin (Bactroban 2% Ointment -) 1 applic TP DAILY [facility] Last Admin: 02/19/17 10:26 Dose: 1 applic [id number] Ethyl Esters (Lovaza -) 1 gm PO BID [facility] Last Admin: 02/20/17 10:12 Dose: 1 gm Ondansetron HCl (Zofran Injection) 8 mg IVPB Q12H PRN PRN Reason: NAUSEA AND/OR VOMITING Last Admin: 02/18/17 13:19 Dose: 8 mg Potassium Chloride (K-Dur -) 20 meq PO DAILY [facility] Last Admin: 02/20/17 10:12 Dose: 20 meq Ranitidine HCl (Zantac -) 150 mg PO DAILY [facility] Last Admin: 02/20/17 10:12 Dose: 150 mg Saliva Substitute ([place] Solution -) 1 applic MM DAILY [facility] Last Admin: 02/20/17 10:13 Dose: 1 applic Senna (Senna -) 2 tab PO HS PRN PRN Reason: CONSTIPATION Last Admin: 01/29/17 21:09 Dose: 2 tab Sodium Chloride ([place] Nasal [place] -) 2 spray NS TID PRN PRN Reason: NASAL CONGESTION Last Admin: 02/15/17 12:38 Dose: 2 sprays Tiotropium [place] (Spiriva -) 1 puff IH DAILY [facility] Last Admin: 02/20/17 10:12 Dose: 1 puff Tramadol HCl (Ultram -) 75 mg PO Q6H PRN PRN Reason: PAIN Last Admin: 02/18/17 21:48 Dose: 75 mg Warfarin Sodium (Coumadin -) 2 mg PO DAILY@1800 [facility] Last Admin: 02/19/17 17:27 Dose: 2 mg - Objective Vital Signs: Vital Signs Temperature 98.0 F 02/20/17 10:00 Pulse Rate 100 H 02/20/17 10:00 Respiratory Rate 22 02/20/17 10:00 Blood Pressure 102/62 02/20/17 10:00 O2 Sat by Pulse Oximetry (%) 98 02/19/17 21:00 Constitutional: Yes: No Distress Cardiovascular: Yes: Pulse Irregular Respiratory: Yes: Diminished Gastrointestinal: Yes: Normal Bowel Sounds, Soft, Abdomen, Obese. No: Tenderness Extremities: Yes: Erythema (decreased), Other (left foot dressing in place) Edema: Yes Labs: CBC, BMP 02/20/17 07:00 02/20/17 07:00 INR, PTT INR 2.80 (0.82-1.09) H 02/20/17 07:00 Problem List - Problems (1) A-fib Code(s): I48.91 - UNSPECIFIED ATRIAL FIBRILLATION Qualifiers: (2) Depression, major, severe recurrence Code(s): F33.2 - MAJOR DEPRESSV DISORDER, RECURRENT SEVERE W/O PSYCH FEATURES (3) Primary cancer of ovary with widespread metastatic disease Code(s): C56.9 - MALIGNANT NEOPLASM OF UNSPECIFIED OVARY C80.0 - DISSEMINATED MALIGNANT NEOPLASM, UNSPECIFIED (4) Metabolic encephalopathy Code(s): G93.41 - METABOLIC ENCEPHALOPATHY (5) Intractable back pain Code(s): M54.9 - DORSALGIA, UNSPECIFIED Assessment/Plan PLAN Pain control with Fetanyl patch and Tramadol as needed- on lasix , monitor renal function -- stable on po Lasix BID iv antibiotics-- will need to know duration of Vanco ID follow up continue with meds hold chemo per Oncology MRSA in sputum ,wound\ pain control will need STR-- pt informed monitor CBC O 2 as needed, nebs as needed
[2017-02-20] MEDS: ZINC OXIDE 20% TOPICAL OINTMENT 30 GM TUBE TP SCH ×2 (13:35→21:45)
[2017-02-20] MEDS: MUPIROCIN 2% TOPICAL OINTMENT 22 GM TUBE TP SCH (13:35)
--- NOTE | 2017-02-20 16:05 | PN ---
Progress Note, Physician History of Present Illness: No c/o foot pain No fever/ chills Tolerating antibiotics - Current Medication List Current Medications: Active Medications Acetaminophen (Tylenol -) 650 mg PO Q6H PRN PRN Reason: PAIN Last Admin: 02/20/17 03:50 Dose: 650 mg Albuterol Sulfate (Ventolin 0.083% Nebulizer Soln -) 1 amp NEB TID [facility] Last Admin: 02/20/17 06:25 Dose: 1 amp Albuterol Sulfate (Ventolin 0.083% Nebulizer Soln -) 1 amp NEB Q4H PRN PRN Reason: SHORT OF BREATH/WHEEZING Albuterol Sulfate (Ventolin Hfa Inhaler -) 2 puff IH Q4H PRN PRN Reason: SHORT OF BREATH/WHEEZING Bupropion HCl (Wellbutrin Xl -) 150 mg PO DAILY [facility] Last Admin: 02/20/17 10:12 Dose: 150 mg Diltiazem HCl (Cardizem Cd -) 300 mg PO DAILY [facility] Last Admin: 02/20/17 10:12 Dose: 300 mg Docusate Sodium (Colace -) 100 mg PO Q8H PRN PRN Reason: CONSTIPATION Fentanyl (Duragesic 12mcg Patch -) 1 patch TD Q72H [facility] Last Admin: 02/20/17 10:12 Dose: 1 patch Furosemide (Lasix -) 40 mg PO BID@0600,1400 [facility] Last Admin: 02/20/17 13:35 Dose: 40 mg Glipizide (Glucotrol -) 5 mg PO DAILY@0700 [facility] Last Admin: 02/20/17 06:26 Dose: 5 mg Guaifenesin (Diabetic Tussin Dm -) 5 ml PO Q6H PRN PRN Reason: COUGH Last Admin: 02/10/17 21:05 Dose: 5 ml Vancomycin HCl 1,000 mg/ (Dextrose) 250 mls @ 166.667 mls/hr IVPB Q24H [facility] Last Admin: 02/19/17 22:06 Dose: 166.667 mls/hr Insulin Aspart (Novolog Vial Sliding Scale -) 1 vial SQ ACHS [facility] PRN Reason: Protocol Last Admin: 02/20/17 12:10 Dose: Not Given Levothyroxine Sodium (Synthroid -) 75 mcg PO DAILY@0700 [facility] Last Admin: 02/20/17 06:26 Dose: 75 mcg Lidocaine (Lidoderm Patch -) 1 patch TP DAILY@2330 [facility] Last Admin: 02/19/17 23:11 Dose: 1 patch Loratadine (Claritin -) 10 mg PO DAILY [facility] Last Admin: 02/20/17 10:12 Dose: 10 mg Metformin HCl (Glucophage -) 500 mg PO BIDAC [facility] Last Admin: 02/20/17 06:26 Dose: 500 mg Metronidazole (Flagyl -) 500 mg PO TID [facility] Last Admin: 02/20/17 13:35 Dose: 500 mg Miscellaneous (Duragesic Patch Waste) 1 each TD PRN PRN PRN Reason: PAIN Last Admin: 02/20/17 12:16 Dose: 1 each Miscellaneous (Duragesic Patch Waste) 1 each MC PRN PRN PRN Reason: PAIN Miscellaneous (Lidoderm Patch Removal) 1 each MC DAILY@1130 [facility] Last Admin: 02/20/17 12:18 Dose: 1 each Multi-Ingredient Lotion (Eucerin (Small Jar) -) 1 applic TP BID [facility] Last Admin: 02/20/17 10:13 Dose: 1 applic Multi-Ingredient Ointment (Zinc Oxide) 1 applic TP BID [facility] Last Admin: 02/20/17 13:35 Dose: 1 applic Mupirocin (Bactroban 2% Ointment -) 1 applic TP DAILY [facility] Last Admin: 02/20/17 13:35 Dose: 1 applic [id number] Ethyl Esters (Lovaza -) 1 gm PO BID [facility] Last Admin: 02/20/17 10:12 Dose: 1 gm Ondansetron HCl (Zofran Injection) 8 mg IVPB Q12H PRN PRN Reason: NAUSEA AND/OR VOMITING Last Admin: 02/18/17 13:19 Dose: 8 mg Potassium Chloride (K-Dur -) 20 meq PO DAILY [facility] Last Admin: 02/20/17 10:12 Dose: 20 meq Ranitidine HCl (Zantac -) 150 mg PO DAILY [facility] Last Admin: 02/20/17 10:12 Dose: 150 mg Saliva Substitute (Mouthkote Solution -) 1 applic MM DAILY [facility] Last Admin: 02/20/17 10:13 Dose: 1 applic Senna (Senna -) 2 tab PO HS PRN PRN Reason: CONSTIPATION Last Admin: 01/29/17 21:09 Dose: 2 tab Sodium Chloride ([place] Nasal [place] -) 2 spray NS TID PRN PRN Reason: NASAL CONGESTION Last Admin: 02/15/17 12:38 Dose: 2 sprays Tiotropium [place] (Spiriva -) 1 puff IH DAILY [facility] Last Admin: 02/20/17 10:12 Dose: 1 puff Tramadol HCl (Ultram -) 75 mg PO Q6H PRN PRN Reason: PAIN Last Admin: 02/18/17 21:48 Dose: 75 mg Warfarin Sodium (Coumadin -) 2 mg PO DAILY@1800 [facility] Last Admin: 02/19/17 17:27 Dose: 2 mg - Objective Vital Signs: Vital Signs Temperature 98.1 F 02/20/17 15:14 Pulse Rate 80 02/20/17 15:14 Respiratory Rate 20 02/20/17 15:14 Blood Pressure 102/62 02/20/17 10:00 O2 Sat by Pulse Oximetry (%) 98 02/19/17 21:00 Constitutional: Yes: No Distress, Obese Eyes: Yes: Conjunctiva Clear Cardiovascular: Yes: Regular Rate and Rhythm, S1, S2 Respiratory: Yes: CTA Bilaterally Gastrointestinal: Yes: Normal Bowel Sounds, Soft, Abdomen, Obese. No: Tenderness Extremities: Yes: Other (erythema, dorsum L foot almost completely resolved foot ulcer without drainage) Edema: Yes Labs: CBC, BMP 02/20/17 07:00 02/20/17 07:00 INR, PTT INR 2.80 (0.82-1.09) H 02/20/17 07:00 Assessment/Plan Metastatic carcinoma Cellulitis L foot + Wound c/s MRSA, [place] Continue vancomycin additional 24hr Elevation [place] likely skin colonizer, however in light of persistant cellulitis, immunocompromised state will add flagyl
[2017-02-20] MEDS: WARFARIN NA 2 MG TABLET (UD) PO SCH (17:27)
[2017-02-20] MEDS: VANCOMYCIN 1,000 MG in DEXTROSE 5%-WATER - 250 ML IVPB SCH (21:46)
[2017-02-20] MEDS: traMADol HCL 50 MG TABLET PO PRN (21:47)
[2017-02-20] MEDS: LIDOCAINE 5% TOPICAL PATCH TP SCH (23:05)
[2017-02-21] MEDS: ACETAMINOPHEN 325 MG TABLET (FP) PO PRN ×2 (04:44→14:25)
[2017-02-21] MEDS: metFORMIN HCL 500 MG TABLET (FP) PO SCH ×2 (06:32→16:45)
[2017-02-21] MEDS: glipiZIDE 5 MG TABLET (FP) PO SCH (06:32)
[2017-02-21] MEDS: LEVOTHYROXINE NA 75 MCG TABLET (FP) PO SCH (06:32)
[2017-02-21] MEDS: FUROSEMIDE 40 MG TABLET (FP) PO SCH ×2 (06:32→14:11)
[2017-02-21] MEDS: INSULIN SLIDING SCALE (NOVOLOG) 1 VIAL SQ SCH ×4 (06:33→22:04)
[2017-02-21] MEDS: metroNIDAZOLE 250 MG TABLET PO SCH ×3 (06:33→22:02)
[2017-02-21] MEDS: ALBUTEROL SO4 0.083% IH SOL 2.5 MG/3 ML VIAL.NEB. NEB SCH ×3 (06:45→23:57)
[2017-02-21 08:03] LABS: MCH 32.7 pg (25.7-33.7); MCHC 33.7 g/dl (32.0-36.0); MEAN PLT VOLUME 9.9 fl (7.5-11.1); PLATELET COUNT 187 K/MM3 (134-434); RDW 19.9 % (11.6-15.6); WHITE BLOOD COUNT 8.8 K/mm3 (4.0-10.0)
[2017-02-21 08:20] LABS: INR 2.77 (0.82-1.09); PROTHROMBIN TIME (PATIENT) 31.3 SEC (9.98-11.88)
[2017-02-21 08:23] LABS: ANION GAP 11 (8-16); CALCIUM 8.4 mg/dL (8.5-10.1); CO2 29 mmol/L (21-32); CREATININE 0.9 mg/dL (0.55-1.02); GLUCOSE,RANDOM 119 mg/dL (74-106)
--- NOTE | 2017-02-21 11:14 | PN ---
Progress Note (short form) - Note Progress Note: pt seen/ examined chart reviewed no new issues sitting in chair comfortable chronic ill appearance Vital Signs Temp 98.6 F 02/21/17 11:12 Pulse 106 H 02/21/17 11:12 Resp 18 02/21/17 11:12 BP 133/60 02/21/17 11:12 Pulse Ox 97 02/20/17 20:51 Intake & Output 02/20/17 02/20/17 02/21/17 11:59 23:59 11:59 Intake Total 487 300 240 Balance 487 300 240 Intake: IV 250 Portacath 250 Oral 300 240 Oral Supplement 237 Other: Voiding Method Toilet Toilet Toilet # Unmeasured Voids Void 1 1 Bowel Movement No No Active Medications Acetaminophen (Tylenol -) 650 mg PO Q6H PRN PRN Reason: PAIN Last Admin: 02/21/17 04:44 Dose: 650 mg Albuterol Sulfate (Ventolin 0.083% Nebulizer Soln -) 1 amp NEB TID [facility] Last Admin: 02/21/17 06:45 Dose: 1 amp Albuterol Sulfate (Ventolin 0.083% Nebulizer Soln -) 1 amp NEB Q4H PRN PRN Reason: SHORT OF BREATH/WHEEZING Albuterol Sulfate (Ventolin Hfa Inhaler -) 2 puff IH Q4H PRN PRN Reason: SHORT OF BREATH/WHEEZING Bupropion HCl (Wellbutrin Xl -) 150 mg PO DAILY [facility] Last Admin: 02/20/17 10:12 Dose: 150 mg Diltiazem HCl (Cardizem Cd -) 300 mg PO DAILY [facility] Last Admin: 02/20/17 10:12 Dose: 300 mg Docusate Sodium (Colace -) 100 mg PO Q8H PRN PRN Reason: CONSTIPATION Furosemide (Lasix -) 40 mg PO BID@0600,1400 [facility] Last Admin: 02/21/17 06:32 Dose: 40 mg Glipizide (Glucotrol -) 5 mg PO DAILY@0700 [facility] Last Admin: 02/21/17 06:32 Dose: 5 mg Guaifenesin (Diabetic Tussin Dm -) 5 ml PO Q6H PRN PRN Reason: COUGH Last Admin: 02/10/17 21:05 Dose: 5 ml Vancomycin HCl 1,000 mg/ (Dextrose) 250 mls @ 166.667 mls/hr IVPB Q24H [facility] Last Admin: 02/20/17 21:46 Dose: 166.667 mls/hr Insulin Aspart (Novolog Vial Sliding Scale -) 1 vial SQ ACHS [facility] PRN Reason: Protocol Last Admin: 02/21/17 06:33 Dose: Not Given Levothyroxine Sodium (Synthroid -) 75 mcg PO DAILY@0700 [facility] Last Admin: 02/21/17 06:32 Dose: 75 mcg Lidocaine (Lidoderm Patch -) 1 patch TP DAILY@2330 [facility] Last Admin: 02/20/17 23:05 Dose: 1 patch Loratadine (Claritin -) 10 mg PO DAILY [facility] Last Admin: 02/20/17 10:12 Dose: 10 mg Metformin HCl (Glucophage -) 500 mg PO BIDAC [facility] Last Admin: 02/21/17 06:32 Dose: 500 mg Metronidazole (Flagyl -) 500 mg PO TID [facility] Last Admin: 02/21/17 06:33 Dose: 500 mg Miscellaneous (Duragesic Patch Waste) 1 each TD PRN PRN PRN Reason: PAIN Last Admin: 02/20/17 12:16 Dose: 1 each Miscellaneous (Duragesic Patch Waste) 1 each MC PRN PRN PRN Reason: PAIN Miscellaneous (Lidoderm Patch Removal) 1 each MC DAILY@1130 [facility] Last Admin: 02/20/17 12:18 Dose: 1 each Multi-Ingredient Lotion (Eucerin (Small Jar) -) 1 applic TP BID [facility] Last Admin: 02/20/17 21:45 Dose: 1 applic Multi-Ingredient Ointment (Zinc Oxide) 1 applic TP BID [facility] Last Admin: 02/20/17 21:45 Dose: 1 applic Mupirocin (Bactroban 2% Ointment -) 1 applic TP DAILY [facility] Last Admin: 02/20/17 13:35 Dose: 1 applic [id number] Ethyl Esters (Lovaza -) 1 gm PO BID [facility] Last Admin: 02/20/17 21:44 Dose: 1 gm Ondansetron HCl (Zofran Injection) 8 mg IVPB Q12H PRN PRN Reason: NAUSEA AND/OR VOMITING Last Admin: 02/18/17 13:19 Dose: 8 mg Potassium Chloride (K-Dur -) 20 meq PO DAILY [facility] Last Admin: 02/20/17 10:12 Dose: 20 meq Ranitidine HCl (Zantac -) 150 mg PO DAILY [facility] Last Admin: 02/20/17 10:12 Dose: 150 mg Saliva Substitute (Mouthkote Solution -) 1 applic MM DAILY [facility] Last Admin: 02/20/17 10:13 Dose: 1 applic Senna (Senna -) 2 tab PO HS PRN PRN Reason: CONSTIPATION Last Admin: 01/29/17 21:09 Dose: 2 tab Sodium Chloride ([place] Nasal [place] -) 2 spray NS TID PRN PRN Reason: NASAL CONGESTION Last Admin: 02/15/17 12:38 Dose: 2 sprays Tiotropium [place] (Spiriva -) 1 puff IH DAILY [facility] Last Admin: 02/20/17 10:12 Dose: 1 puff Warfarin Sodium (Coumadin -) 2 mg PO DAILY@1800 [facility] Last Admin: 02/20/17 17:27 Dose: 2 mg CBC, BMP 02/21/17 07:00 02/21/17 07:00 Physical exam Constitutional: Yes: No Distress Cardiovascular: Yes: Pulse Irregular Respiratory: Yes: Diminished Gastrointestinal: Yes: Normal Bowel Sounds, Soft, Abdomen, Obese. No: Tenderness Extremities: Yes: Erythema (decreased), Other (left foot dressing in place) Edema: Yes Problem List - Problems (1) A-fib Code(s): I48.91 - UNSPECIFIED ATRIAL FIBRILLATION Qualifiers: (2) Depression, major, severe recurrence Code(s): F33.2 - MAJOR DEPRESSV DISORDER, RECURRENT SEVERE W/O PSYCH FEATURES (3) Primary cancer of ovary with widespread metastatic disease Code(s): C56.9 - MALIGNANT NEOPLASM OF UNSPECIFIED OVARY C80.0 - DISSEMINATED MALIGNANT NEOPLASM, UNSPECIFIED (4) Metabolic encephalopathy Code(s): G93.41 - METABOLIC ENCEPHALOPATHY (5) Intractable back pain Code(s): M54.9 - DORSALGIA, UNSPECIFIED Assessment/Plan stable problems as listed metastatic ca continue present care abx per i/d local care coumadin per inr level will follow.
[2017-02-21] MEDS: POTASSIUM CHLORIDE TABS 20 MEQ TABLET.ER (FP) PO SCH (11:25)
[2017-02-21] MEDS: OMEGA-3 ACID ETHYL ESTERS (FATTY-ACIDS) 1 GM CAPSULE (FP) PO SCH ×2 (11:25→22:02)
[2017-02-21] MEDS: RANITIDINE HCL 150 MG TABLET (FP) PO SCH (11:25)
[2017-02-21] MEDS: LORATADINE 10 MG TABLET PO SCH (11:25)
[2017-02-21] MEDS: MUPIROCIN 2% TOPICAL OINTMENT 22 GM TUBE TP SCH (11:25)
[2017-02-21] MEDS: MINERAL OIL/PETROLAT/WATER TOPICAL CREAM 113 GM JAR TP SCH ×2 (11:26→22:04)
[2017-02-21] MEDS: ZINC OXIDE 20% TOPICAL OINTMENT 30 GM TUBE TP SCH ×2 (11:26→22:04)
[2017-02-21] MEDS: LYTES/YERBA SANTA 240 ML BOTTLE MM SCH (11:26)
[2017-02-21] MEDS: TIOTROPIUM BROMIDE 18 MCG/INH (DEVICE W/ 5 CAPSULES) IH SCH (11:28)
--- NOTE | 2017-02-21 13:40 | PN ---
Progress Note, Physician History of Present Illness: No c/o foot pain No fever/ chills Afebrile WBC WNL - Current Medication List Current Medications: Active Medications Acetaminophen (Tylenol -) 650 mg PO Q6H PRN PRN Reason: PAIN Last Admin: 02/21/17 04:44 Dose: 650 mg Albuterol Sulfate (Ventolin 0.083% Nebulizer Soln -) 1 amp NEB TID [facility] Last Admin: 02/21/17 06:45 Dose: 1 amp Albuterol Sulfate (Ventolin 0.083% Nebulizer Soln -) 1 amp NEB Q4H PRN PRN Reason: SHORT OF BREATH/WHEEZING Albuterol Sulfate (Ventolin Hfa Inhaler -) 2 puff IH Q4H PRN PRN Reason: SHORT OF BREATH/WHEEZING Bupropion HCl (Wellbutrin Xl -) 150 mg PO DAILY [facility] Last Admin: 02/21/17 11:25 Dose: 150 mg Diltiazem HCl (Cardizem Cd -) 300 mg PO DAILY [facility] Last Admin: 02/21/17 11:25 Dose: 300 mg Docusate Sodium (Colace -) 100 mg PO Q8H PRN PRN Reason: CONSTIPATION Furosemide (Lasix -) 40 mg PO BID@0600,1400 [facility] Last Admin: 02/21/17 06:32 Dose: 40 mg Glipizide (Glucotrol -) 5 mg PO DAILY@0700 [facility] Last Admin: 02/21/17 06:32 Dose: 5 mg Guaifenesin (Diabetic Tussin Dm -) 5 ml PO Q6H PRN PRN Reason: COUGH Last Admin: 02/10/17 21:05 Dose: 5 ml Vancomycin HCl 1,000 mg/ (Dextrose) 250 mls @ 166.667 mls/hr IVPB Q24H [facility] Last Admin: 02/20/17 21:46 Dose: 166.667 mls/hr Insulin Aspart (Novolog Vial Sliding Scale -) 1 vial SQ ACHS [facility] PRN Reason: Protocol Last Admin: 02/21/17 11:26 Dose: Not Given Levothyroxine Sodium (Synthroid -) 75 mcg PO DAILY@0700 [facility] Last Admin: 02/21/17 06:32 Dose: 75 mcg Lidocaine (Lidoderm Patch -) 1 patch TP DAILY@2330 [facility] Last Admin: 02/20/17 23:05 Dose: 1 patch Loratadine (Claritin -) 10 mg PO DAILY [facility] Last Admin: 02/21/17 11:25 Dose: 10 mg Metformin HCl (Glucophage -) 500 mg PO BIDAC [facility] Last Admin: 02/21/17 06:32 Dose: 500 mg Metronidazole (Flagyl -) 500 mg PO TID [facility] Last Admin: 02/21/17 06:33 Dose: 500 mg Miscellaneous (Duragesic Patch Waste) 1 each TD PRN PRN PRN Reason: PAIN Last Admin: 02/20/17 12:16 Dose: 1 each Miscellaneous (Duragesic Patch Waste) 1 each MC PRN PRN PRN Reason: PAIN Miscellaneous (Lidoderm Patch Removal) 1 each MC DAILY@1130 [facility] Last Admin: 02/20/17 12:18 Dose: 1 each Multi-Ingredient Lotion (Eucerin (Small Jar) -) 1 applic TP BID [facility] Last Admin: 02/21/17 11:26 Dose: 1 applic Multi-Ingredient Ointment (Zinc Oxide) 1 applic TP BID [facility] Last Admin: 02/21/17 11:26 Dose: 1 applic Mupirocin (Bactroban 2% Ointment -) 1 applic TP DAILY [facility] Last Admin: 02/21/17 11:25 Dose: 1 applic [id number] Ethyl Esters (Lovaza -) 1 gm PO BID [facility] Last Admin: 02/21/17 11:25 Dose: 1 gm Ondansetron HCl (Zofran Injection) 8 mg IVPB Q12H PRN PRN Reason: NAUSEA AND/OR VOMITING Last Admin: 02/18/17 13:19 Dose: 8 mg Potassium Chloride (K-Dur -) 20 meq PO DAILY [facility] Last Admin: 02/21/17 11:25 Dose: 20 meq Ranitidine HCl (Zantac -) 150 mg PO DAILY [facility] Last Admin: 02/21/17 11:25 Dose: 150 mg Saliva Substitute (Mouthkote Solution -) 1 applic MM DAILY [facility] Last Admin: 02/21/17 11:26 Dose: 1 applic Senna (Senna -) 2 tab PO HS PRN PRN Reason: CONSTIPATION Last Admin: 01/29/17 21:09 Dose: 2 tab Sodium Chloride ([place] Nasal [place] -) 2 spray NS TID PRN PRN Reason: NASAL CONGESTION Last Admin: 02/15/17 12:38 Dose: 2 sprays Tiotropium [place] (Spiriva -) 1 puff IH DAILY [facility] Last Admin: 02/21/17 11:28 Dose: 1 puff - Objective Vital Signs: Vital Signs Temperature 98.6 F 02/21/17 11:12 Pulse Rate 106 H 02/21/17 11:12 Respiratory Rate 18 02/21/17 11:12 Blood Pressure 133/60 02/21/17 11:12 O2 Sat by Pulse Oximetry (%) 97 02/20/17 20:51 Constitutional: Yes: No Distress Cardiovascular: Yes: Regular Rate and Rhythm, S1, S2 Respiratory: Yes: CTA Bilaterally Gastrointestinal: Yes: Normal Bowel Sounds, Soft, Abdomen, Obese. No: Tenderness Extremities: Yes: Other (erythema dorsum L foot nearly all resolved foot ulcer no drainage) Edema: Yes Labs: CBC, BMP 02/21/17 07:00 02/21/17 07:00 INR, PTT INR 2.77 (0.82-1.09) H 02/21/17 07:00 Assessment/Plan Metastatic carcinoma Cellulitis L foot almost completely resolved + Wound c/s MRSA, [place] D/C vancomycin. Bactrim DS bid/ Flagyl 500mg tid additional 72hr Elevation
--- NOTE | 2017-02-21 14:09 | PN ---
Progress Note (short form) - Note Progress Note: Pt. was in better spirits as she had two visitors (daughter and step daughter). Her pain level was a 9 and she still has no appetite. We discussed using self applied acupressure (hand reflexology and ear reflexology) as she has experienced some pain and anxiety relief with these approaches. We discussed going into the [facility] once she has medical clearance as she gets more depressed being stuck in her room. The patient's mood was euthymic in spite of the pain level. It is recommended that she receive a music CD for playing in her room which may help with pain relief and mood. The patient will be followed while she is an inpatient here.
[2017-02-21] MEDS: LIDOCAINE PATCH REMOVAL MC SCH (14:11)
[2017-02-21] MEDS: traMADol HCL 50 MG TABLET PO PRN ×2 (16:45→22:45)
[2017-02-21] MEDS: POLYETHYLENE GLYCOL 3350 119 GM BTL PO SCH (17:54)
[2017-02-21] MEDS ORDERED: PT OWN MED DRAWER 7, Y5N ONE (20:17)
[2017-02-21] MEDS: SULFAMETHOXAZOLE/TRIMETHOPRIM 800MG/160MG D.S. TABLET PO SCH (22:02)
[2017-02-21] MEDS: LIDOCAINE 5% TOPICAL PATCH TP SCH (22:43)
[2017-02-22] MEDS ORDERED: traMADol HCL 50 MG TABLET PO ONE (00:45)
[2017-02-22] MEDS: metroNIDAZOLE 250 MG TABLET PO SCH ×3 (06:19→22:04)
[2017-02-22] MEDS: metFORMIN HCL 500 MG TABLET (FP) PO SCH ×2 (06:20→17:26)
[2017-02-22] MEDS: glipiZIDE 5 MG TABLET (FP) PO SCH (06:21)
[2017-02-22] MEDS: FUROSEMIDE 40 MG TABLET (FP) PO SCH ×2 (06:21→14:16)
[2017-02-22] MEDS: LEVOTHYROXINE NA 75 MCG TABLET (FP) PO SCH (06:21)
[2017-02-22] MEDS: INSULIN SLIDING SCALE (NOVOLOG) 1 VIAL SQ SCH ×4 (06:21→22:04)
[2017-02-22] MEDS: traMADol HCL 50 MG TABLET PO PRN ×2 (06:23→19:48)
[2017-02-22] MEDS: ALBUTEROL SO4 0.083% IH SOL 2.5 MG/3 ML VIAL.NEB. NEB SCH ×2 (07:30→13:50)
[2017-02-22 07:53] LABS: ALBUMIN 2.2 g/dl (3.4-5.0); ANION GAP 12 (8-16); CALCIUM 8.2 mg/dL (8.5-10.1); CO2 28 mmol/L (21-32); CREATININE 0.8 mg/dL (0.55-1.02); GLUCOSE,RANDOM 91 mg/dL (74-106); SGOT/AST 57 U/L (15-37); SGPT/ALT 29 U/L (12-78)
[2017-02-22 07:55] LABS: ALK PHOS 152 U/L (45-117); BILIRUBIN,TOTAL 0.5 mg/dL (0.2-1.0); TOT PROT 5.7 g/dl (6.4-8.2)
[2017-02-22 07:57] LABS: BASOPHIL 0.7 % (0-2.0); EOSINOPHIL 0.8 % (0-4.5); MCH 32.9 pg (25.7-33.7); MCHC 33.9 g/dl (32.0-36.0); MEAN PLT VOLUME 9.8 fl (7.5-11.1); NEUTROPHILS 69.5 % (42.8-82.8); PLATELET COUNT 194 K/MM3 (134-434); RDW 20.2 % (11.6-15.6); WHITE BLOOD COUNT 9.1 K/mm3 (4.0-10.0)
[2017-02-22 08:14] LABS: INR 2.63 (0.82-1.09); PROTHROMBIN TIME (PATIENT) 29.7 SEC (9.98-11.88)
[2017-02-22 08:17] LABS: ACTIVATED PTT 36.6 SECONDS (26.9-34.4)
[2017-02-22] MEDS ORDERED: PT OWN MED DRAWER 7, Y5N ONE ×2 (08:39→17:25)
[2017-02-22] MEDS: SULFAMETHOXAZOLE/TRIMETHOPRIM 800MG/160MG D.S. TABLET PO SCH ×2 (09:26→22:04)
[2017-02-22] MEDS: RANITIDINE HCL 150 MG TABLET (FP) PO SCH (09:26)
[2017-02-22] MEDS: OMEGA-3 ACID ETHYL ESTERS (FATTY-ACIDS) 1 GM CAPSULE (FP) PO SCH ×2 (09:26→22:04)
[2017-02-22] MEDS: POTASSIUM CHLORIDE TABS 20 MEQ TABLET.ER (FP) PO SCH ×2 (09:26→22:04)
[2017-02-22] MEDS: ZINC OXIDE 20% TOPICAL OINTMENT 30 GM TUBE TP SCH ×2 (09:27→22:04)
[2017-02-22] MEDS: MUPIROCIN 2% TOPICAL OINTMENT 22 GM TUBE TP SCH (09:27)
[2017-02-22] MEDS: MINERAL OIL/PETROLAT/WATER TOPICAL CREAM 113 GM JAR TP SCH ×2 (09:28→22:04)
[2017-02-22] MEDS: POLYETHYLENE GLYCOL 3350 119 GM BTL PO SCH (09:28)
[2017-02-22] MEDS: LYTES/YERBA SANTA 240 ML BOTTLE MM SCH (09:28)
[2017-02-22] MEDS: LORATADINE 10 MG TABLET PO SCH (10:28)
--- NOTE | 2017-02-22 11:31 | PN ---
Progress Note, Physician Chief Complaint: no distress no SOB no chest pain - Current Medication List Current Medications: Active Medications Acetaminophen (Tylenol -) 650 mg PO Q6H PRN PRN Reason: PAIN Last Admin: 02/21/17 14:25 Dose: 650 mg Albuterol Sulfate (Ventolin 0.083% Nebulizer Soln -) 1 amp NEB TID [facility] Last Admin: 02/22/17 07:30 Dose: 1 amp Albuterol Sulfate (Ventolin Hfa Inhaler -) 2 puff IH Q4H PRN PRN Reason: SHORT OF BREATH/WHEEZING Bupropion HCl (Wellbutrin Xl -) 150 mg PO DAILY [facility] Last Admin: 02/22/17 09:26 Dose: 150 mg Diltiazem HCl (Cardizem Cd -) 300 mg PO DAILY [facility] Last Admin: 02/22/17 09:25 Dose: 300 mg Docusate Sodium (Colace -) 100 mg PO Q8H PRN PRN Reason: CONSTIPATION Furosemide (Lasix -) 40 mg PO BID@0600,1400 [facility] Last Admin: 02/22/17 06:21 Dose: 40 mg Glipizide (Glucotrol -) 5 mg PO DAILY@0700 [facility] Last Admin: 02/22/17 06:21 Dose: 5 mg Guaifenesin (Diabetic Tussin Dm -) 5 ml PO Q6H PRN PRN Reason: COUGH Last Admin: 02/10/17 21:05 Dose: 5 ml Insulin Aspart (Novolog Vial Sliding Scale -) 1 vial SQ ACHS [facility] PRN Reason: Protocol Last Admin: 02/22/17 06:21 Dose: Not Given Levothyroxine Sodium (Synthroid -) 75 mcg PO DAILY@0700 [facility] Last Admin: 02/22/17 06:21 Dose: 75 mcg Lidocaine (Lidoderm Patch -) 1 patch TP DAILY@2330 [facility] Last Admin: 02/21/17 22:43 Dose: 1 patch Loratadine (Claritin -) 10 mg PO DAILY [facility] Last Admin: 02/22/17 10:28 Dose: 10 mg Metformin HCl (Glucophage -) 500 mg PO BIDAC [facility] Last Admin: 02/22/17 06:20 Dose: 500 mg Metronidazole (Flagyl -) 500 mg PO TID [facility] Last Admin: 02/22/17 06:19 Dose: 500 mg Miscellaneous (Duragesic Patch Waste) 1 each PRN PRN PRN Reason: PAIN Miscellaneous (Lidoderm Patch Removal) 1 each MC DAILY@1130 [facility] Last Admin: 02/21/17 14:11 Dose: 1 each Multi-Ingredient Lotion (Eucerin (Small Jar) -) 1 applic TP BID [facility] Last Admin: 02/22/17 09:28 Dose: 1 applic Multi-Ingredient Ointment (Zinc Oxide) 1 applic TP BID [facility] Last Admin: 02/22/17 09:27 Dose: 1 applic Mupirocin (Bactroban 2% Ointment -) 1 applic TP DAILY [facility] Last Admin: 02/22/17 09:27 Dose: 1 applic [id number] Ethyl Esters (Lovaza -) 1 gm PO BID [facility] Last Admin: 02/22/17 09:26 Dose: 1 gm Ondansetron HCl (Zofran Injection) 8 mg IVPB Q12H PRN PRN Reason: NAUSEA AND/OR VOMITING Last Admin: 02/18/17 13:19 Dose: 8 mg Polyethylene Glycol (Miralax (For Daily Use) -) 17 gm PO DAILY [facility] Last Admin: 02/22/17 09:28 Dose: 17 grams Potassium Chloride (K-Dur -) 20 meq PO BID [facility] Ranitidine HCl (Zantac -) 150 mg PO DAILY [facility] Last Admin: 02/22/17 09:26 Dose: 150 mg Saliva Substitute (Mouthkote Solution -) 1 applic MM DAILY [facility] Last Admin: 02/22/17 09:28 Dose: 1 applic Senna (Senna -) 2 tab PO HS PRN PRN Reason: CONSTIPATION Last Admin: 01/29/17 21:09 Dose: 2 tab Sodium Chloride ([place] Nasal [place] -) 2 spray NS TID PRN PRN Reason: NASAL CONGESTION Last Admin: 02/15/17 12:38 Dose: 2 sprays Tiotropium [place] (Spiriva -) 1 puff IH DAILY [facility] Last Admin: 02/21/17 11:28 Dose: 1 puff Tramadol HCl (Ultram -) 75 mg PO Q6H PRN PRN Reason: PAIN Last Admin: 02/22/17 06:23 Dose: 75 mg Trimethoprim/Sulfamethoxazole (Bactrim Ds -) 1 each PO BID [facility] Last Admin: 02/22/17 09:26 Dose: 1 each - Objective Vital Signs: Vital Signs Temperature 97.9 F 02/22/17 05:58 Pulse Rate 92 H 02/22/17 05:58 Respiratory Rate 20 02/22/17 05:58 Blood Pressure 109/62 02/22/17 05:58 O2 Sat by Pulse Oximetry (%) 97 02/21/17 20:52 Constitutional: Yes: No Distress Cardiovascular: Yes: Pulse Irregular Respiratory: Yes: Diminished Gastrointestinal: Yes: Normal Bowel Sounds, Soft, Abdomen, Obese. No: Distention, Tenderness Extremities: No: Erythema Edema: Yes Labs: CBC, BMP 02/22/17 06:00 02/22/17 06:00 INR, PTT INR 2.63 (0.82-1.09) H 02/22/17 06:00 Problem List - Problems (1) A-fib Code(s): I48.91 - UNSPECIFIED ATRIAL FIBRILLATION Qualifiers: (2) Depression, major, severe recurrence Code(s): F33.2 - MAJOR DEPRESSV DISORDER, RECURRENT SEVERE W/O PSYCH FEATURES (3) Primary cancer of ovary with widespread metastatic disease Code(s): C56.9 - MALIGNANT NEOPLASM OF UNSPECIFIED OVARY C80.0 - DISSEMINATED MALIGNANT NEOPLASM, UNSPECIFIED (4) Metabolic encephalopathy Code(s): G93.41 - METABOLIC ENCEPHALOPATHY (5) Intractable back pain Code(s): M54.9 - DORSALGIA, UNSPECIFIED Assessment/Plan PLAN Pain control with Fetanyl patch and Tramadol as needed- on lasix , monitor renal function -- stable on po Lasix BID iv antibiotics--dc now on PO Bactrim and Levaquin PO x 3 days ID follow up noted continue with meds hold chemo per Oncology MRSA in sputum ,wound\ pain control will need STR-- pt informed monitor CBC O 2 as needed, nebs as needed
[2017-02-22] MEDS: LIDOCAINE PATCH REMOVAL MC SCH (17:34)
[2017-02-22] MEDS: TIOTROPIUM BROMIDE 18 MCG/INH (DEVICE W/ 5 CAPSULES) IH SCH (17:57)
[2017-02-22] MEDS ORDERED: ALBUTEROL SO4 0.083% IH SOL 2.5 MG/3 ML VIAL.NEB. NEB PRN (22:29)
[2017-02-23] MEDS: LIDOCAINE 5% TOPICAL PATCH TP SCH (00:30)
--- NOTE | 2017-02-23 01:46 | PN ---
Progress Note (short form) - Note Progress Note: Patient seen and examined. chart reviewed O/E General Appearance: Obese Lung: Clear to auscultation, Other (decreased Lt. lung base) Skin: itching excoriations. Abdomen: Soft, No tenderness, Normal bowel sounds Extremities: Other (lymphedema), +dressing Neurological: Intact Labs/Meds/Chart/Vitals reviewed Assessment/Plan: Metastatic high grade mullerian cancer. on second line chemo, s.p C1D1 gemzar on 01/23. Week 2 on 02/06 cellulitis in the LLE MUCH improved PO abx per ID pain control --c/w tramadol. on fentanyl 12 mcg Q 72hrs, afib :On coumadin- monitor INR s/p second dose of gem on 02/06. appreciated psychology f/u likely d/c post weekend dw
[2017-02-23] MEDS: traMADol HCL 50 MG TABLET PO PRN ×2 (01:47→19:37)
[2017-02-23] MEDS: metroNIDAZOLE 250 MG TABLET PO SCH ×3 (06:19→21:45)
[2017-02-23] MEDS: FUROSEMIDE 40 MG TABLET (FP) PO SCH ×2 (06:19→14:25)
[2017-02-23] MEDS: ALBUTEROL SO4 0.083% IH SOL 2.5 MG/3 ML VIAL.NEB. NEB SCH ×3 (06:58→22:05)
[2017-02-23] MEDS: LEVOTHYROXINE NA 75 MCG TABLET (FP) PO SCH (07:01)
[2017-02-23] MEDS: INSULIN SLIDING SCALE (NOVOLOG) 1 VIAL SQ SCH ×4 (07:22→21:46)
[2017-02-23] MEDS: metFORMIN HCL 500 MG TABLET (FP) PO SCH ×2 (07:57→17:13)
[2017-02-23] MEDS: glipiZIDE 5 MG TABLET (FP) PO SCH (07:57)
[2017-02-23 08:15] LABS: MCHC 33.6 g/dl (32.0-36.0); MEAN CELL VOLUME 98.1 fl (80-96); MEAN PLT VOLUME 9.8 fl (7.5-11.1); PLATELET COUNT 266 K/MM3 (134-434); WHITE BLOOD COUNT 9.2 K/mm3 (4.0-10.0)
[2017-02-23 08:19] LABS: INR 2.31 (0.82-1.09); PROTHROMBIN TIME (PATIENT) 26.1 SEC (9.98-11.88)
[2017-02-23] MEDS ORDERED: PT OWN MED DRAWER 7, Y5N ONE (08:51)
[2017-02-23 08:57] LABS: ANION GAP 8 (8-16); CALCIUM 8.8 mg/dL (8.5-10.1); CO2 31 mmol/L (21-32); CREATININE 0.9 mg/dL (0.55-1.02); GLUCOSE,RANDOM 74 mg/dL (74-106)
[2017-02-23] MEDS: OMEGA-3 ACID ETHYL ESTERS (FATTY-ACIDS) 1 GM CAPSULE (FP) PO SCH ×2 (09:06→21:45)
[2017-02-23] MEDS: ACETAMINOPHEN 325 MG TABLET (FP) PO PRN (09:06)
[2017-02-23] MEDS: RANITIDINE HCL 150 MG TABLET (FP) PO SCH (09:07)
[2017-02-23] MEDS: SULFAMETHOXAZOLE/TRIMETHOPRIM 800MG/160MG D.S. TABLET PO SCH ×2 (09:07→21:45)
[2017-02-23] MEDS: POTASSIUM CHLORIDE TABS 20 MEQ TABLET.ER (FP) PO SCH ×2 (09:07→21:46)
[2017-02-23] MEDS: LORATADINE 10 MG TABLET PO SCH (09:07)
[2017-02-23] MEDS: TIOTROPIUM BROMIDE 18 MCG/INH (DEVICE W/ 5 CAPSULES) IH SCH (09:07)
[2017-02-23] MEDS: ZINC OXIDE 20% TOPICAL OINTMENT 30 GM TUBE TP SCH ×2 (09:08→21:46)
[2017-02-23] MEDS: LYTES/YERBA SANTA 240 ML BOTTLE MM SCH (09:08)
[2017-02-23] MEDS: MINERAL OIL/PETROLAT/WATER TOPICAL CREAM 113 GM JAR TP SCH ×2 (09:09→21:46)
--- NOTE | 2017-02-23 10:11 | PN ---
Progress Note, Physician Chief Complaint: no distress no SOB no chest pain - Current Medication List Current Medications: Active Medications Acetaminophen (Tylenol -) 650 mg PO Q6H PRN PRN Reason: PAIN Last Admin: 02/23/17 09:06 Dose: 650 mg Albuterol Sulfate (Ventolin Hfa Inhaler -) 2 puff IH Q4H PRN PRN Reason: SHORT OF BREATH/WHEEZING Albuterol Sulfate (Ventolin 0.083% Nebulizer Soln -) 1 amp NEB TIDR [facility] Last Admin: 02/23/17 06:58 Dose: 1 amp Albuterol Sulfate (Ventolin 0.083% Nebulizer Soln -) 1 amp NEB Q4H PRN PRN Reason: SHORT OF BREATH/WHEEZING Bupropion HCl (Wellbutrin Xl -) 150 mg PO DAILY [facility] Last Admin: 02/23/17 09:07 Dose: 150 mg Diltiazem HCl (Cardizem Cd -) 300 mg PO DAILY [facility] Last Admin: 02/23/17 09:07 Dose: 300 mg Docusate Sodium (Colace -) 100 mg PO Q8H PRN PRN Reason: CONSTIPATION Furosemide (Lasix -) 40 mg PO BID@0600,1400 [facility] Last Admin: 02/23/17 06:19 Dose: 40 mg Glipizide (Glucotrol -) 5 mg PO DAILY@0700 [facility] Last Admin: 02/23/17 07:57 Dose: 5 mg Guaifenesin (Diabetic Tussin Dm -) 5 ml PO Q6H PRN PRN Reason: COUGH Last Admin: 02/10/17 21:05 Dose: 5 ml Insulin Aspart (Novolog Vial Sliding Scale -) 1 vial SQ ACHS [facility] PRN Reason: Protocol Last Admin: 02/23/17 07:22 Dose: Not Given Levothyroxine Sodium (Synthroid -) 75 mcg PO DAILY@0700 [facility] Last Admin: 02/23/17 07:01 Dose: 75 mcg Lidocaine (Lidoderm Patch -) 1 patch TP DAILY@2330 [facility] Last Admin: 02/23/17 00:30 Dose: Not Given Loratadine (Claritin -) 10 mg PO DAILY [facility] Last Admin: 02/23/17 09:07 Dose: 10 mg Metformin HCl (Glucophage -) 500 mg PO BIDAC [facility] Last Admin: 02/23/17 07:57 Dose: 500 mg Metronidazole (Flagyl -) 500 mg PO TID [facility] Last Admin: 02/23/17 06:19 Dose: 500 mg Miscellaneous (Duragesic Patch Waste) 1 each PRN PRN PRN Reason: PAIN Miscellaneous (Lidoderm Patch Removal) 1 each DAILY@1130 [facility] Last Admin: 02/22/17 17:34 Dose: 1 each Multi-Ingredient Lotion (Eucerin (Small Jar) -) 1 applic TP BID [facility] Last Admin: 02/23/17 09:09 Dose: 1 applic Multi-Ingredient Ointment (Zinc Oxide) 1 applic TP BID [facility] Last Admin: 02/23/17 09:08 Dose: 1 applic Mupirocin (Bactroban 2% Ointment -) 1 applic TP DAILY [facility] Last Admin: 02/22/17 09:27 Dose: 1 applic Ryfof-4-Oegs Ethyl Esters (Lovaza -) 1 gm PO BID [facility] Last Admin: 02/23/17 09:06 Dose: 1 gm Ondansetron HCl (Zofran Injection) 8 mg IVPB Q12H PRN PRN Reason: NAUSEA AND/OR VOMITING Last Admin: 02/18/17 13:19 Dose: 8 mg Polyethylene Glycol (Miralax (For Daily Use) -) 17 gm PO DAILY [facility] Last Admin: 02/22/17 09:28 Dose: 17 grams Potassium Chloride (K-Dur -) 20 meq PO BID [facility] Last Admin: 02/23/17 09:07 Dose: 20 meq Ranitidine HCl (Zantac -) 150 mg PO DAILY [facility] Last Admin: 02/23/17 09:07 Dose: 150 mg Saliva Substitute (Mouthkote Solution -) 1 applic MM DAILY [facility] Last Admin: 02/23/17 09:08 Dose: 1 applic Senna (Senna -) 2 tab PO HS PRN PRN Reason: CONSTIPATION Last Admin: 01/29/17 21:09 Dose: 2 tab Sodium Chloride ([place] Nasal [place] -) 2 spray NS TID PRN PRN Reason: NASAL CONGESTION Last Admin: 02/15/17 12:38 Dose: 2 sprays Tiotropium [place] (Spiriva -) 1 puff IH DAILY [facility] Last Admin: 02/23/17 09:07 Dose: 1 puff Tramadol HCl (Ultram -) 75 mg PO Q6H PRN PRN Reason: PAIN Last Admin: 02/23/17 01:47 EST Dose: 75 mg Trimethoprim/Sulfamethoxazole (Bactrim Ds -) 1 each PO BID [facility] Last Admin: 02/23/17 09:07 Dose: 1 each - Objective Vital Signs: Vital Signs Temperature 98 F 02/23/17 05:58 Pulse Rate 102 H 02/23/17 09:27 Respiratory Rate 18 02/23/17 05:58 Blood Pressure 109/65 02/23/17 05:58 O2 Sat by Pulse Oximetry (%) 99 02/23/17 09:27 Constitutional: Yes: No Distress Cardiovascular: Yes: Pulse Irregular Respiratory: Yes: Diminished Extremities: No: Erythema Edema: Yes Labs: CBC, BMP 02/23/17 06:00 02/23/17 06:00 INR, PTT INR 2.31 (0.82-1.09) H 02/23/17 06:00 Problem List - Problems (1) A-fib Code(s): I48.91 - UNSPECIFIED ATRIAL FIBRILLATION Qualifiers: (2) Depression, major, severe recurrence Code(s): F33.2 - MAJOR DEPRESSV DISORDER, RECURRENT SEVERE W/O PSYCH FEATURES (3) Primary cancer of ovary with widespread metastatic disease Code(s): C56.9 - MALIGNANT NEOPLASM OF UNSPECIFIED OVARY C80.0 - DISSEMINATED MALIGNANT NEOPLASM, UNSPECIFIED (4) Metabolic encephalopathy Code(s): G93.41 - METABOLIC ENCEPHALOPATHY (5) Intractable back pain Code(s): M54.9 - DORSALGIA, UNSPECIFIED Assessment/Plan PLAN Pain control with Fetanyl patch and Tramadol as needed- on lasix , monitor renal function -- stable on po Lasix BID iv antibiotics--dc now on PO Bactrim and Levaquin PO x 3 days continue with meds possible chemo tomorrow MRSA in sputum ,wound\ pain control will need STR-- pt informed -- plan for Friday per case manager specialist monitor CBC O 2 as needed, nebs as needed
--- NOTE | 2017-02-23 10:16 | PN ---
Progress Note, Physician History of Present Illness: PULMONARY ALERT,OOB-CHAIR,-RESP DISTRESS - Current Medication List Current Medications: Active Medications Acetaminophen (Tylenol -) 650 mg PO Q6H PRN PRN Reason: PAIN Last Admin: 02/23/17 09:06 Dose: 650 mg Albuterol Sulfate (Ventolin Hfa Inhaler -) 2 puff IH Q4H PRN PRN Reason: SHORT OF BREATH/WHEEZING Albuterol Sulfate (Ventolin 0.083% Nebulizer Soln -) 1 amp NEB TIDR [facility] Last Admin: 02/23/17 06:58 Dose: 1 amp Albuterol Sulfate (Ventolin 0.083% Nebulizer Soln -) 1 amp NEB Q4H PRN PRN Reason: SHORT OF BREATH/WHEEZING Bupropion HCl (Wellbutrin Xl -) 150 mg PO DAILY [facility] Last Admin: 02/23/17 09:07 Dose: 150 mg Diltiazem HCl (Cardizem Cd -) 300 mg PO DAILY [facility] Last Admin: 02/23/17 09:07 Dose: 300 mg Docusate Sodium (Colace -) 100 mg PO Q8H PRN PRN Reason: CONSTIPATION Furosemide (Lasix -) 40 mg PO BID@0600,1400 [facility] Last Admin: 02/23/17 06:19 Dose: 40 mg Glipizide (Glucotrol -) 5 mg PO DAILY@0700 [facility] Last Admin: 02/23/17 07:57 Dose: 5 mg Guaifenesin (Diabetic Tussin Dm -) 5 ml PO Q6H PRN PRN Reason: COUGH Last Admin: 02/10/17 21:05 Dose: 5 ml Insulin Aspart (Novolog Vial Sliding Scale -) 1 vial SQ ACHS [facility] PRN Reason: Protocol Last Admin: 02/23/17 07:22 Dose: Not Given Levothyroxine Sodium (Synthroid -) 75 mcg PO DAILY@0700 [facility] Last Admin: 02/23/17 07:01 Dose: 75 mcg Lidocaine (Lidoderm Patch -) 1 patch TP DAILY@2330 [facility] Last Admin: 02/23/17 00:30 Dose: Not Given Loratadine (Claritin -) 10 mg PO DAILY [facility] Last Admin: 02/23/17 09:07 Dose: 10 mg Metformin HCl (Glucophage -) 500 mg PO BIDAC [facility] Last Admin: 02/23/17 07:57 Dose: 500 mg Metronidazole (Flagyl -) 500 mg PO TID [facility] Last Admin: 02/23/17 06:19 Dose: 500 mg Miscellaneous (Duragesic Patch Waste) 1 each PRN PRN PRN Reason: PAIN Miscellaneous (Lidoderm Patch Removal) 1 each DAILY@1130 [facility] Last Admin: 02/22/17 17:34 Dose: 1 each Multi-Ingredient Lotion (Eucerin (Small Jar) -) 1 applic TP BID [facility] Last Admin: 02/23/17 09:09 Dose: 1 applic Multi-Ingredient Ointment (Zinc Oxide) 1 applic TP BID [facility] Last Admin: 02/23/17 09:08 Dose: 1 applic Mupirocin (Bactroban 2% Ointment -) 1 applic TP DAILY [facility] Last Admin: 02/22/17 09:27 Dose: 1 applic [id number] Ethyl Esters (Lovaza -) 1 gm PO BID [facility] Last Admin: 02/23/17 09:06 Dose: 1 gm Ondansetron HCl (Zofran Injection) 8 mg IVPB Q12H PRN PRN Reason: NAUSEA AND/OR VOMITING Last Admin: 02/18/17 13:19 Dose: 8 mg Polyethylene Glycol (Miralax (For Daily Use) -) 17 gm PO DAILY [facility] Last Admin: 02/22/17 09:28 Dose: 17 grams Potassium Chloride (K-Dur -) 20 meq PO BID [facility] Last Admin: 02/23/17 09:07 Dose: 20 meq Ranitidine HCl (Zantac -) 150 mg PO DAILY [facility] Last Admin: 02/23/17 09:07 Dose: 150 mg Saliva Substitute (Mouthkote Solution -) 1 applic MM DAILY [facility] Last Admin: 02/23/17 09:08 Dose: 1 applic Senna (Senna -) 2 tab PO HS PRN PRN Reason: CONSTIPATION Last Admin: 01/29/17 21:09 Dose: 2 tab Sodium Chloride ([place] Nasal [place] -) 2 spray NS TID PRN PRN Reason: NASAL CONGESTION Last Admin: 02/15/17 12:38 Dose: 2 sprays Tiotropium [place] (Spiriva -) 1 puff IH DAILY [facility] Last Admin: 02/23/17 09:07 Dose: 1 puff Tramadol HCl (Ultram -) 75 mg PO Q6H PRN PRN Reason: PAIN Last Admin: 02/23/17 01:47 EST Dose: 75 mg Trimethoprim/Sulfamethoxazole (Bactrim Ds -) 1 each PO BID [facility] Last Admin: 02/23/17 09:07 Dose: 1 each - Objective Vital Signs: Vital Signs Temperature 98 F 02/23/17 05:58 Pulse Rate 102 H 02/23/17 09:27 Respiratory Rate 18 02/23/17 05:58 Blood Pressure 109/65 02/23/17 05:58 O2 Sat by Pulse Oximetry (%) 99 02/23/17 09:27 Constitutional: Yes: Well Nourished, Calm Eyes: Yes: WNL HENT: Yes: WNL Neck: Yes: WNL Cardiovascular: Yes: Pulse Irregular, S1, S2 Respiratory: Yes: Diminished Gastrointestinal: Yes: Normal Bowel Sounds, Soft Extremities: Yes: WNL Edema: Yes Labs: CBC, BMP 02/23/17 06:00 02/23/17 06:00 INR, PTT INR 2.31 (0.82-1.09) H 02/23/17 06:00 - ....Imaging Chest X-ray: Report Reviewed, Image Reviewed Problem List - Problems (1) Hypothyroid Code(s): E03.9 - HYPOTHYROIDISM, UNSPECIFIED (2) Lymphedema Code(s): I89.0 - LYMPHEDEMA, NOT ELSEWHERE CLASSIFIED (3) Anemia Code(s): D64.9 - ANEMIA, UNSPECIFIED (4) Anxiety and depression Code(s): F41.9 - ANXIETY DISORDER, UNSPECIFIED F32.9 - MAJOR DEPRESSIVE DISORDER, SINGLE EPISODE, UNSPECIFIED (5) Cancer of ovary Code(s): C56.9 - MALIGNANT NEOPLASM OF UNSPECIFIED OVARY Qualifiers: (6) Diabetes Code(s): E11.9 - TYPE 2 DIABETES MELLITUS WITHOUT COMPLICATIONS Qualifiers: Diabetes mellitus type: type 2 Diabetes mellitus complication status: without complication (7) HTN (hypertension) Code(s): I10 - ESSENTIAL (PRIMARY) HYPERTENSION Qualifiers: (8) Morbidly obese Code(s): E66.01 - MORBID (SEVERE) OBESITY DUE TO EXCESS CALORIES (9) Primary cancer of ovary with widespread metastatic disease Code(s): C56.9 - MALIGNANT NEOPLASM OF UNSPECIFIED OVARY C80.0 - DISSEMINATED MALIGNANT NEOPLASM, UNSPECIFIED (10) Pulmonary nodules/lesions, multiple Code(s): R91.8 - OTHER NONSPECIFIC ABNORMAL FINDING OF LUNG FIELD (11) A-fib Code(s): I48.91 - UNSPECIFIED ATRIAL FIBRILLATION Qualifiers: (12) Hemoptysis Code(s): R04.2 - HEMOPTYSIS Assessment/Plan 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
[2017-02-23] MEDS: DOCUSATE SODIUM 100 MG CAPSULE (FP) PO PRN (10:41)
[2017-02-23] MEDS ORDERED: FENTANYL PATCH WASTE TD PRN (11:15)
[2017-02-23] MEDS: POLYETHYLENE GLYCOL 3350 119 GM BTL PO SCH (13:39)
[2017-02-23] MEDS: LIDOCAINE PATCH REMOVAL MC SCH (14:25)
[2017-02-23] MEDS: fentaNYL 12mcg/hr PATCH.TD72 TD SCH (14:25)
[2017-02-23] MEDS: MUPIROCIN 2% TOPICAL OINTMENT 22 GM TUBE TP SCH (14:26)
[2017-02-23] MEDS: WARFARIN NA 2 MG TABLET (UD) PO SCH (17:13)
--- NOTE | 2017-02-23 20:24 | PN ---
Progress Note (short form) - Note Progress Note: Patient seen and examined. chart reviewed feels depressed today O/E General Appearance: Obese Lung: Clear to auscultation, Other (decreased Lt. lung base) Skin: itching excoriations. Abdomen: Soft, No tenderness, Normal bowel sounds Extremities: Other (lymphedema), +dressing Neurological: Intact Labs/Meds/Chart/Vitals reviewed Assessment/Plan: Metastatic high grade mullerian cancer. on second line chemo, s.p C1D1 gemzar on 01/23. Week 2 on 02/06 cellulitis in the LLE MUCH improved PO abx per ID pain control --c/w tramadol. on fentanyl 12 mcg Q 72hrs, afib :On coumadin- monitor INR s/p second dose of gem on 02/06. appreciated psychology f/u likely d/c post weekend
[2017-02-23] MEDS ORDERED: INSULIN (NOVOLOG) ASPART 100 UNITS/ML 10ML VIAL ONE (21:17)
[2017-02-24] MEDS: LIDOCAINE 5% TOPICAL PATCH TP SCH ×2 (00:17→22:41)
[2017-02-24] MEDS: ALBUTEROL SO4 0.083% IH SOL 2.5 MG/3 ML VIAL.NEB. NEB SCH ×3 (06:30→22:45)
[2017-02-24] MEDS: metroNIDAZOLE 250 MG TABLET PO SCH ×3 (06:41→21:14)
[2017-02-24] MEDS: LEVOTHYROXINE NA 75 MCG TABLET (FP) PO SCH (06:41)
[2017-02-24] MEDS: FUROSEMIDE 40 MG TABLET (FP) PO SCH ×2 (06:41→15:01)
[2017-02-24] MEDS: INSULIN SLIDING SCALE (NOVOLOG) 1 VIAL SQ SCH ×4 (07:08→21:14)
[2017-02-24 07:51] LABS: INR 2.25 (0.82-1.09); PROTHROMBIN TIME (PATIENT) 25.4 SEC (9.98-11.88)
[2017-02-24 07:52] LABS: MCH 32.5 pg (25.7-33.7); MCHC 33.4 g/dl (32.0-36.0); MEAN CELL VOLUME 97.6 fl (80-96); MEAN PLT VOLUME 9.5 fl (7.5-11.1); PLATELET COUNT 262 K/MM3 (134-434); RDW 20.2 % (11.6-15.6); WHITE BLOOD COUNT 8.5 K/mm3 (4.0-10.0)
[2017-02-24 08:12] LABS: ANION GAP 9 (8-16); CALCIUM 8.4 mg/dL (8.5-10.1); CO2 29 mmol/L (21-32); CREATININE 0.8 mg/dL (0.55-1.02); GLUCOSE,RANDOM 69 mg/dL (74-106)
[2017-02-24] MEDS: glipiZIDE 5 MG TABLET (FP) PO SCH (08:37)
[2017-02-24] MEDS: metFORMIN HCL 500 MG TABLET (FP) PO SCH ×2 (08:37→17:23)
--- NOTE | 2017-02-24 08:50 | PN ---
Progress Note (short form) - Note Progress Note: patient seen and examined today. Sitting in chair Chart reviewed All follow-ups noted Patient's mood remains depressed Denies suicidal thoughts though Also complains of chronic dry cough No fever Off antibiotics Vital Signs Temp 97.4 F L 02/24/17 06:33 Pulse 106 H 02/24/17 06:33 Resp 20 02/24/17 06:33 BP 103/55 02/24/17 06:33 Pulse Ox 96 02/23/17 21:00 Intake & Output 02/23/17 02/23/17 02/24/17 11:59 23:59 11:59 Intake Total 537 0 Balance 537 0 Intake: Oral 300 0 Oral Supplement 237 Other: Voiding Method Toilet Toilet # Unmeasured Voids Void 2 Bowel Movement No Active Medications Acetaminophen (Tylenol -) 650 mg PO Q6H PRN PRN Reason: PAIN Last Admin: 02/23/17 09:06 Dose: 650 mg Albuterol Sulfate (Ventolin Hfa Inhaler -) 2 puff IH Q4H PRN PRN Reason: SHORT OF BREATH/WHEEZING Albuterol Sulfate (Ventolin 0.083% Nebulizer Soln -) 1 amp NEB TIDR [facility] Last Admin: 02/24/17 06:30 Dose: 1 amp Albuterol Sulfate (Ventolin 0.083% Nebulizer Soln -) 1 amp NEB Q4H PRN PRN Reason: SHORT OF BREATH/WHEEZING Bupropion HCl (Wellbutrin Xl -) 150 mg PO DAILY [facility] Last Admin: 02/23/17 09:07 Dose: 150 mg Diltiazem HCl (Cardizem Cd -) 300 mg PO DAILY [facility] Last Admin: 02/23/17 09:07 Dose: 300 mg Docusate Sodium (Colace -) 100 mg PO Q8H PRN PRN Reason: CONSTIPATION Last Admin: 02/23/17 10:41 Dose: 100 mg Fentanyl (Duragesic 12mcg Patch -) 1 patch TD Q72H [facility] Stop: 03/02/17 11:14 Last Admin: 02/23/17 14:25 Dose: 1 patch Furosemide (Lasix -) 40 mg PO BID@0600,1400 [facility] Last Admin: 02/24/17 06:41 Dose: 40 mg Glipizide (Glucotrol -) 5 mg PO DAILY@0700 [facility] Last Admin: 02/24/17 08:37 Dose: 5 mg Guaifenesin (Diabetic Tussin Dm -) 5 ml PO Q6H PRN PRN Reason: COUGH Last Admin: 02/10/17 21:05 Dose: 5 ml Insulin Aspart (Novolog Vial Sliding Scale -) 1 vial SQ ACHS [facility] PRN Reason: Protocol Last Admin: 02/24/17 07:08 Dose: Not Given Levothyroxine Sodium (Synthroid -) 75 mcg PO DAILY@0700 [facility] Last Admin: 02/24/17 06:41 Dose: 75 mcg Lidocaine (Lidoderm Patch -) 1 patch TP DAILY@2330 [facility] Last Admin: 02/24/17 00:17 Dose: Not Given Loratadine (Claritin -) 10 mg PO DAILY [facility] Last Admin: 02/23/17 09:07 Dose: 10 mg Metformin HCl (Glucophage -) 500 mg PO BIDAC [facility] Last Admin: 02/24/17 08:37 Dose: 500 mg Metronidazole (Flagyl -) 500 mg PO TID [facility] Last Admin: 02/24/17 06:41 Dose: 500 mg Miscellaneous (Lidoderm Patch Removal) 1 each MC DAILY@1130 [facility] Last Admin: 02/23/17 14:25 Dose: Not Given Miscellaneous (Duragesic Patch Waste) 1 each TD PRN PRN PRN Reason: PAIN Stop: 03/02/17 11:14 Multi-Ingredient Lotion (Eucerin (Small Jar) -) 1 applic TP BID [facility] Last Admin: 02/23/17 21:46 Dose: 1 applic Multi-Ingredient Ointment (Zinc Oxide) 1 applic TP BID [facility] Last Admin: 02/23/17 21:46 Dose: 1 applic Mupirocin (Bactroban 2% Ointment -) 1 applic TP DAILY [facility] Last Admin: 02/23/17 14:26 Dose: 1 applic [id number] Ethyl Esters (Lovaza -) 1 gm PO BID [facility] Last Admin: 02/23/17 21:45 Dose: 1 gm Ondansetron HCl (Zofran Injection) 8 mg IVPB Q12H PRN PRN Reason: NAUSEA AND/OR VOMITING Last Admin: 02/18/17 13:19 Dose: 8 mg Polyethylene Glycol (Miralax (For Daily Use) -) 17 gm PO DAILY [facility] Last Admin: 02/23/17 13:39 Dose: Not Given Potassium Chloride (K-Dur -) 20 meq PO BID [facility] Last Admin: 02/23/17 21:46 Dose: 20 meq Ranitidine HCl (Zantac -) 150 mg PO DAILY [facility] Last Admin: 02/23/17 09:07 Dose: 150 mg Saliva Substitute (Mouthkote Solution -) 1 applic MM DAILY [facility] Last Admin: 02/23/17 09:08 Dose: 1 applic Senna (Senna -) 2 tab PO HS PRN PRN Reason: CONSTIPATION Last Admin: 01/29/17 21:09 Dose: 2 tab Sodium Chloride ([place] Nasal [place] -) 2 spray NS TID PRN PRN Reason: NASAL CONGESTION Last Admin: 02/15/17 12:38 Dose: 2 sprays Tiotropium [place] (Spiriva -) 1 puff IH DAILY [facility] Last Admin: 02/23/17 09:07 Dose: 1 puff Tramadol HCl (Ultram -) 75 mg PO Q6H PRN PRN Reason: PAIN Last Admin: 02/23/17 19:37 Dose: 75 mg Trimethoprim/Sulfamethoxazole (Bactrim Ds -) 1 each PO BID [facility] Last Admin: 02/23/17 21:45 Dose: 1 each Warfarin Sodium (Coumadin -) 2 mg PO DAILY@1800 [facility] Last Admin: 02/23/17 17:13 Dose: 2 mg CBC, BMP 02/24/17 05:45 02/24/17 05:45 INR, PTT INR 2.25 (0.82-1.09) H 02/24/17 05:45 - Objective Constitutional: Yes: No Distress--chronic ill appearance Cardiovascular: Yes: Pulse Irregular Respiratory: Yes: Diminished--few scattered rhonchi Extremities: No: Erythema Edema: Yes dressing in place Problem List - Problems (1) A-fib Code(s): I48.91 - UNSPECIFIED ATRIAL FIBRILLATION Qualifiers: (2) Depression, major, severe recurrence Code(s): F33.2 - MAJOR DEPRESSV DISORDER, RECURRENT SEVERE W/O PSYCH FEATURES (3) Primary cancer of ovary with widespread metastatic disease Code(s): C56.9 - MALIGNANT NEOPLASM OF UNSPECIFIED OVARY C80.0 - DISSEMINATED MALIGNANT NEOPLASM, UNSPECIFIED (4) Metabolic encephalopathy Code(s): G93.41 - METABOLIC ENCEPHALOPATHY (5) Intractable back pain Code(s): M54.9 - DORSALGIA, UNSPECIFIED Assessment/Plan overall stable Problems as listed--metastatic cancer Foot cellulitis Chronic dry cough Continue present care Off antibiotics Will follow. Discharge planning in progress.
[2017-02-24 09:23] LABS: PLATELET ESTIMATE ADEQUATE (NORMAL)
[2017-02-24 09:26] LABS: ANISOCYTOSIS 2+; MACROCYTOSIS 1+; MICROCYTOSIS 1+; MYELOCYTE 1 % (0-2); TEAR DROP CELLS 1+; TOTAL CELLS COUNTED 100
--- NOTE | 2017-02-24 10:59 | PN ---
Progress Note (short form) - Note Progress Note: Resting in NAD. Depressed. No acute events overnight. Continues with cough. No hemoptysis. Intake & Output 02/22/17 02/23/17 02/23/17 02/24/17 00:59 00:59 23:59 23:59 Intake Total 0 Balance 0 Last Vital Signs Temp Pulse Resp BP Pulse Ox 97.7 F 106 H 18 110/70 96 02/24/17 08:49 02/24/17 06:33 02/24/17 08:49 02/24/17 08:49 02/23/17 21:00 Active Medications Acetaminophen (Tylenol -) 650 mg PO Q6H PRN PRN Reason: PAIN Last Admin: 02/23/17 09:06 Dose: 650 mg Albuterol Sulfate (Ventolin Hfa Inhaler -) 2 puff IH Q4H PRN PRN Reason: SHORT OF BREATH/WHEEZING Albuterol Sulfate (Ventolin 0.083% Nebulizer Soln -) 1 amp NEB TIDR [facility] Last Admin: 02/24/17 06:30 Dose: 1 amp Albuterol Sulfate (Ventolin 0.083% Nebulizer Soln -) 1 amp NEB Q4H PRN PRN Reason: SHORT OF BREATH/WHEEZING Bupropion HCl (Wellbutrin Xl -) 150 mg PO DAILY [facility] Last Admin: 02/23/17 09:07 Dose: 150 mg Diltiazem HCl (Cardizem Cd -) 300 mg PO DAILY [facility] Last Admin: 02/23/17 09:07 Dose: 300 mg Docusate Sodium (Colace -) 100 mg PO Q8H PRN PRN Reason: CONSTIPATION Last Admin: 02/23/17 10:41 Dose: 100 mg Fentanyl (Duragesic 12mcg Patch -) 1 patch TD Q72H [facility] Stop: 03/02/17 11:14 Last Admin: 02/23/17 14:25 Dose: 1 patch Furosemide (Lasix -) 40 mg PO BID@0600,1400 [facility] Last Admin: 02/24/17 06:41 Dose: 40 mg Glipizide (Glucotrol -) 5 mg PO DAILY@0700 [facility] Last Admin: 02/24/17 08:37 Dose: 5 mg Guaifenesin (Diabetic Tussin Dm -) 5 ml PO Q6H PRN PRN Reason: COUGH Last Admin: 02/10/17 21:05 Dose: 5 ml Insulin Aspart (Novolog Vial Sliding Scale -) 1 vial SQ ACHS [facility] PRN Reason: Protocol Last Admin: 02/24/17 07:08 Dose: Not Given Levothyroxine Sodium (Synthroid -) 75 mcg PO DAILY@0700 [facility] Last Admin: 02/24/17 06:41 Dose: 75 mcg Lidocaine (Lidoderm Patch -) 1 patch TP DAILY@2330 [facility] Last Admin: 02/24/17 00:17 Dose: Not Given Loratadine (Claritin -) 10 mg PO DAILY [facility] Last Admin: 02/23/17 09:07 Dose: 10 mg Metformin HCl (Glucophage -) 500 mg PO BIDAC [facility] Last Admin: 02/24/17 08:37 Dose: 500 mg Metronidazole (Flagyl -) 500 mg PO TID [facility] Last Admin: 02/24/17 06:41 Dose: 500 mg Miscellaneous (Lidoderm Patch Removal) 1 each MC DAILY@1130 [facility] Last Admin: 02/23/17 14:25 Dose: Not Given Miscellaneous (Duragesic Patch Waste) 1 each TD PRN PRN PRN Reason: PAIN Stop: 03/02/17 11:14 Multi-Ingredient Lotion (Eucerin (Small Jar) -) 1 applic TP BID [facility] Last Admin: 02/23/17 21:46 Dose: 1 applic Multi-Ingredient Ointment (Zinc Oxide) 1 applic TP BID [facility] Last Admin: 02/23/17 21:46 Dose: 1 applic Mupirocin (Bactroban 2% Ointment -) 1 applic TP DAILY [facility] Last Admin: 02/23/17 14:26 Dose: 1 applic Eyaly-3-Sltm Ethyl Esters (Lovaza -) 1 gm PO BID [facility] Last Admin: 02/23/17 21:45 Dose: 1 gm Ondansetron HCl (Zofran Injection) 8 mg IVPB Q12H PRN PRN Reason: NAUSEA AND/OR VOMITING Last Admin: 02/18/17 13:19 Dose: 8 mg Polyethylene Glycol (Miralax (For Daily Use) -) 17 gm PO DAILY [facility] Last Admin: 02/23/17 13:39 Dose: Not Given Potassium Chloride (K-Dur -) 20 meq PO BID [facility] Last Admin: 02/23/17 21:46 Dose: 20 meq Ranitidine HCl (Zantac -) 150 mg PO DAILY [facility] Last Admin: 02/23/17 09:07 Dose: 150 mg Saliva Substitute (Mouthkote Solution -) 1 applic MM DAILY [facility] Last Admin: 02/23/17 09:08 Dose: 1 applic Senna (Senna -) 2 tab PO HS PRN PRN Reason: CONSTIPATION Last Admin: 01/29/17 21:09 Dose: 2 tab Sodium Chloride ([place] Nasal [place] -) 2 spray NS TID PRN PRN Reason: NASAL CONGESTION Last Admin: 02/15/17 12:38 Dose: 2 sprays Tiotropium [place] (Spiriva -) 1 puff IH DAILY [facility] Last Admin: 02/23/17 09:07 Dose: 1 puff Tramadol HCl (Ultram -) 75 mg PO Q6H PRN PRN Reason: PAIN Last Admin: 02/23/17 19:37 Dose: 75 mg Trimethoprim/Sulfamethoxazole (Bactrim Ds -) 1 each PO BID [facility] Last Admin: 02/23/17 21:45 Dose: 1 each Warfarin Sodium (Coumadin -) 2 mg PO DAILY@1800 [facility] Last Admin: 02/23/17 17:13 Dose: 2 mg Constitutional: Yes: No Distress, Obese Eyes: Yes: Conjunctiva Clear, EOM Intact HENT: Yes: Atraumatic, Normocephalic Neck: Yes: Supple, Trachea Midline Cardiovascular: Yes: Regular Rate and Rhythm Respiratory: Yes: Cough, Diminished, On Nasal O2. No: Accessory Muscle Use, Rhonchi, Stridor, Wheezes ...Inspection: Yes: WNL ...Clubbing: No Gastrointestinal: Yes: Normal Bowel Sounds, Soft, Abdomen, Obese Renal/: Yes: WNL Musculoskeletal: Yes: Back Pain Extremities: Yes: WNL Edema: Yes Peripheral Pulses WNL: Yes Integumentary: Yes: WNL Neurological: Yes: WNL, Alert, Oriented ...Motor Strength: WNL Psychiatric: Yes: WNL, Alert, Oriented Labs: Laboratory Results - last 24 hr 02/23/17 02/23/17 02/23/17 11:46 16:39 21:44 WBC RBC Hgb Hct MCV MCH MCHC RDW Plt Count MPV Total Counted Neutrophils % Neutrophils % (Manual) Lymphocytes % Lymphocytes % (Manual) Monocytes % (Manual) Eosinophils % (Manual) Myelocytes % (Man) Platelet Estimate Anisocytosis Microcytosis Macrocytosis Tear Drop Cells PT with INR INR Sodium Potassium Chloride Carbon Dioxide Anion Gap BUN Creatinine POC Glucometer 132 184 112 Random Glucose Calcium 02/24/17 02/24/17 02/24/17 05:45 05:45 05:45 WBC 8.5 RBC 3.13 L Hgb 10.2 L Hct 30.5 L MCV 97.6 H MCH 32.5 MCHC 33.4 RDW 20.2 H Plt Count 262 MPV 9.5 Total Counted 100 Neutrophils % No Result Required. Neutrophils % (Manual) 61 Lymphocytes % No Result Required. Lymphocytes % (Manual) 16 D Monocytes % (Manual) 21 H* Eosinophils % (Manual) 1 Myelocytes % (Man) 1 Platelet Estimate Adequate Anisocytosis 2+ Microcytosis 1+ Macrocytosis 1+ Tear Drop Cells 1+ PT with INR 25.40 H INR 2.25 H Sodium 134 L Potassium 4.2 Chloride 96 L Carbon Dioxide 29 Anion Gap 9 BUN 13 Creatinine 0.8 POC Glucometer Random Glucose 69 L Calcium 8.4 L 02/24/17 06:35 WBC RBC Hgb Hct MCV MCH MCHC RDW Plt Count MPV Total Counted Neutrophils % Neutrophils % (Manual) Lymphocytes % Lymphocytes % (Manual) Monocytes % (Manual) Eosinophils % (Manual) Myelocytes % (Man) Platelet Estimate Anisocytosis Microcytosis Macrocytosis Tear Drop Cells PT with INR INR Sodium Potassium Chloride Carbon Dioxide Anion Gap BUN Creatinine POC Glucometer 81 Random Glucose Calcium Problem List - Problems (1) A-fib Code(s): I48.91 - UNSPECIFIED ATRIAL FIBRILLATION Qualifiers: (2) Intractable back pain Code(s): M54.9 - DORSALGIA, UNSPECIFIED (3) Hypothyroid Code(s): E03.9 - HYPOTHYROIDISM, UNSPECIFIED (4) Lymphedema Code(s): I89.0 - LYMPHEDEMA, NOT ELSEWHERE CLASSIFIED (5) Anemia Code(s): D64.9 - ANEMIA, UNSPECIFIED (6) Anxiety and depression Code(s): F41.9 - ANXIETY DISORDER, UNSPECIFIED F32.9 - MAJOR DEPRESSIVE DISORDER, SINGLE EPISODE, UNSPECIFIED (7) Diabetes Code(s): E11.9 - TYPE 2 DIABETES MELLITUS WITHOUT COMPLICATIONS Qualifiers: Diabetes mellitus type: type 2 Diabetes mellitus complication status: without complication (8) HTN (hypertension) Code(s): I10 - ESSENTIAL (PRIMARY) HYPERTENSION Qualifiers: (9) Morbidly obese Code(s): E66.01 - MORBID (SEVERE) OBESITY DUE TO EXCESS CALORIES (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 Code(s): C56.9 - MALIGNANT NEOPLASM OF UNSPECIFIED OVARY C80.0 - DISSEMINATED MALIGNANT NEOPLASM, UNSPECIFIED (11) Pulmonary nodules/lesions, multiple Code(s): R91.8 - OTHER NONSPECIFIC ABNORMAL FINDING OF LUNG FIELD (12) SOB (shortness of breath) Code(s): R06.02 - SHORTNESS OF BREATH Assessment/Plan ABX per ID O2 as needed Coumadin BD TX Nasal saline D/C planning Dr An Problem List - Problems (1) A-fib Code(s): I48.91 - UNSPECIFIED ATRIAL FIBRILLATION Qualifiers: (2) Intractable back pain Code(s): M54.9 - DORSALGIA, UNSPECIFIED (3) Hypothyroid Code(s): E03.9 - HYPOTHYROIDISM, UNSPECIFIED (4) Lymphedema Code(s): I89.0 - LYMPHEDEMA, NOT ELSEWHERE CLASSIFIED (5) Anemia Code(s): D64.9 - ANEMIA, UNSPECIFIED (6) Anxiety and depression Code(s): F41.9 - ANXIETY DISORDER, UNSPECIFIED F32.9 - MAJOR DEPRESSIVE DISORDER, SINGLE EPISODE, UNSPECIFIED (7) Diabetes Code(s): E11.9 - TYPE 2 DIABETES MELLITUS WITHOUT COMPLICATIONS Qualifiers: Diabetes mellitus type: type 2 Diabetes mellitus complication status: without complication (8) HTN (hypertension) Code(s): I10 - ESSENTIAL (PRIMARY) HYPERTENSION Qualifiers: (9) Morbidly obese Code(s): E66.01 - MORBID (SEVERE) OBESITY DUE TO EXCESS CALORIES (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 Code(s): C56.9 - MALIGNANT NEOPLASM OF UNSPECIFIED OVARY C80.0 - DISSEMINATED MALIGNANT NEOPLASM, UNSPECIFIED (11) Pulmonary nodules/lesions, multiple Code(s): R91.8 - OTHER NONSPECIFIC ABNORMAL FINDING OF LUNG FIELD (12) SOB (shortness of breath) Code(s): R06.02 - SHORTNESS OF BREATH
[2017-02-24] MEDS: POTASSIUM CHLORIDE TABS 20 MEQ TABLET.ER (FP) PO SCH ×2 (11:35→21:14)
[2017-02-24] MEDS: LORATADINE 10 MG TABLET PO SCH (11:36)
[2017-02-24] MEDS: OMEGA-3 ACID ETHYL ESTERS (FATTY-ACIDS) 1 GM CAPSULE (FP) PO SCH ×2 (11:36→21:14)
[2017-02-24] MEDS: SULFAMETHOXAZOLE/TRIMETHOPRIM 800MG/160MG D.S. TABLET PO SCH (11:36)
[2017-02-24] MEDS: ONDANSETRON 4 MG/2 ML VIAL IVPB PRN (11:36)
[2017-02-24] MEDS: RANITIDINE HCL 150 MG TABLET (FP) PO SCH (11:36)
[2017-02-24] MEDS: MINERAL OIL/PETROLAT/WATER TOPICAL CREAM 113 GM JAR TP SCH ×2 (12:54→21:13)
[2017-02-24] MEDS: POLYETHYLENE GLYCOL 3350 119 GM BTL PO SCH ×2 (12:54→15:24)
[2017-02-24] MEDS ORDERED: SODIUM CHLORIDE 250 ML IV ONE ×2 (13:15→15:00)
[2017-02-24 13:27] LABS: ALBUMIN 2.5 g/dl (3.4-5.0); BILIRUBIN,DIRECT 0.3 mg/dL (0.0-0.2); BILIRUBIN,TOTAL 0.6 mg/dL (0.2-1.0); TOT PROT 6.6 g/dl (6.4-8.2)
[2017-02-24] MEDS ORDERED: DEXAMETHASONE INJECTION 12 MG in SODIUM CHLORIDE 50 ML IVPUSH ONE (14:15)
[2017-02-24] MEDS ORDERED: ONDANSETRON INJECTION 12 MG in SODIUM CHLORIDE 50 ML IVPB ONE (14:15)
[2017-02-24] MEDS: SENNOSIDES 8.6MG TABLET (FP) PO PRN (15:01)
[2017-02-24] MEDS: DOCUSATE SODIUM 100 MG CAPSULE (FP) PO PRN (15:01)
[2017-02-24] MEDS: MUPIROCIN 2% TOPICAL OINTMENT 22 GM TUBE TP SCH (15:07)
[2017-02-24] MEDS ORDERED: PT OWN MED DRAWER 7, Y5N ONE ×2 (15:15→17:16)
[2017-02-24] MEDS: LYTES/YERBA SANTA 240 ML BOTTLE MM SCH (15:21)
[2017-02-24] MEDS: LIDOCAINE PATCH REMOVAL MC SCH (15:22)
[2017-02-24] MEDS: ZINC OXIDE 20% TOPICAL OINTMENT 30 GM TUBE TP SCH ×2 (15:22→21:15)
[2017-02-24] MEDS: GEMCITABINE HCL IV ONE (17:21)
[2017-02-24] MEDS: SODIUM CHLORIDE IV ONE (17:21)
[2017-02-24] MEDS: TIOTROPIUM BROMIDE 18 MCG/INH (DEVICE W/ 5 CAPSULES) IH SCH (17:23)
[2017-02-24] MEDS: WARFARIN NA 2 MG TABLET (UD) PO SCH (17:23)
--- NOTE | 2017-02-24 20:55 | PN ---
Progress Note (short form) - Note Progress Note: Patient seen and examined c/o constipation AFVSS Cor: RSR, No murmurs, No gallops Lungs: decreased left base Abd: Soft, Normal bowel sounds, No organomegaly Ext:lymphedema Labs/meds reviewed A/P 61 y/o with metastatic high grade mullerian cancer, serous adenoca s/p carbo/taxol with stable disease, but most recently has been progressing with rising CA 125 and peritoneal implants on imaging. pain control --on tramadol. on fentanyl 12 mcg Q 72hrs, afib On coumadin monitor INR High grade mullerian cancer : on gemzar Lt. foot cellulitis- s/p vanco For next cycle gemzar discussed overall suituation with patients daughter d/c planning--[facility]
[2017-02-25] MEDS: FUROSEMIDE 40 MG TABLET (FP) PO SCH ×2 (05:44→16:01)
[2017-02-25] MEDS: metroNIDAZOLE 250 MG TABLET PO SCH ×2 (05:44→16:00)
[2017-02-25] MEDS: LEVOTHYROXINE NA 75 MCG TABLET (FP) PO SCH (06:04)
[2017-02-25] MEDS: glipiZIDE 5 MG TABLET (FP) PO SCH (06:04)
[2017-02-25] MEDS: metFORMIN HCL 500 MG TABLET (FP) PO SCH ×2 (06:04→16:01)
[2017-02-25] MEDS: INSULIN SLIDING SCALE (NOVOLOG) 1 VIAL SQ SCH ×4 (06:04→21:13)
[2017-02-25] MEDS: ALBUTEROL SO4 0.083% IH SOL 2.5 MG/3 ML VIAL.NEB. NEB SCH ×3 (06:21→22:24)
[2017-02-25 07:28] LABS: MCHC 33.8 g/dl (32.0-36.0); MEAN CELL VOLUME 97.5 fl (80-96); MEAN PLT VOLUME 9.1 fl (7.5-11.1); PLATELET COUNT 284 K/MM3 (134-434); RDW 20.2 % (11.6-15.6); WHITE BLOOD COUNT 8.6 K/mm3 (4.0-10.0)
[2017-02-25 07:45] LABS: ALBUMIN 2.4 g/dl (3.4-5.0); ALK PHOS 157 U/L (45-117); ANION GAP 11 (8-16); BILIRUBIN,TOTAL 0.7 mg/dL (0.2-1.0); CALCIUM 8.8 mg/dL (8.5-10.1); CO2 28 mmol/L (21-32); GLUCOSE,RANDOM 107 mg/dL (74-106); SGOT/AST 63 U/L (15-37); SGPT/ALT 26 U/L (12-78); TOT PROT 6.3 g/dl (6.4-8.2)
[2017-02-25] MEDS ORDERED: PT OWN MED DRAWER 7, Y5N ONE ×2 (09:07→14:11)
[2017-02-25] MEDS ORDERED: DEXAMETHASONE SOD PHOSPHATE 20 MG/5 ML VIAL IVPB ONE ×2 (09:36→17:15)
[2017-02-25] MEDS ORDERED: ONDANSETRON 4 MG/2 ML VIAL IVPB ONE ×2 (09:38→17:15)
[2017-02-25] MEDS: OMEGA-3 ACID ETHYL ESTERS (FATTY-ACIDS) 1 GM CAPSULE (FP) PO SCH ×2 (09:43→21:14)
[2017-02-25] MEDS: LORATADINE 10 MG TABLET PO SCH (09:43)
[2017-02-25] MEDS: POTASSIUM CHLORIDE TABS 20 MEQ TABLET.ER (FP) PO SCH ×2 (09:43→21:14)
[2017-02-25] MEDS: RANITIDINE HCL 150 MG TABLET (FP) PO SCH (09:44)
[2017-02-25] MEDS: TIOTROPIUM BROMIDE 18 MCG/INH (DEVICE W/ 5 CAPSULES) IH SCH (09:44)
[2017-02-25] MEDS ORDERED: SODIUM CHLORIDE 1,000 ML IV SCH (10:15)
--- NOTE | 2017-02-25 11:46 | PN ---
Progress Note, Physician Chief Complaint: no distress no SOB no chest pain - Current Medication List Current Medications: Active Medications Acetaminophen (Tylenol -) 650 mg PO Q6H PRN PRN Reason: PAIN Last Admin: 02/23/17 09:06 Dose: 650 mg Albuterol Sulfate (Ventolin Hfa Inhaler -) 2 puff IH Q4H PRN PRN Reason: SHORT OF BREATH/WHEEZING Albuterol Sulfate (Ventolin 0.083% Nebulizer Soln -) 1 amp NEB TIDR [facility] Last Admin: 02/25/17 06:21 Dose: 1 amp Albuterol Sulfate (Ventolin 0.083% Nebulizer Soln -) 1 amp NEB Q4H PRN PRN Reason: SHORT OF BREATH/WHEEZING Bupropion HCl (Wellbutrin Xl -) 150 mg PO DAILY [facility] Last Admin: 02/25/17 09:43 Dose: 150 mg Diltiazem HCl (Cardizem Cd -) 300 mg PO DAILY [facility] Last Admin: 02/25/17 09:41 Dose: 300 mg Docusate Sodium (Colace -) 100 mg PO Q8H PRN PRN Reason: CONSTIPATION Last Admin: 02/24/17 15:01 Dose: 100 mg Fentanyl (Duragesic 12mcg Patch -) 1 patch TD Q72H [facility] Stop: 03/02/17 11:14 Last Admin: 02/23/17 14:25 Dose: 1 patch Furosemide (Lasix -) 40 mg PO BID@0600,1400 [facility] Last Admin: 02/25/17 05:44 Dose: 40 mg Glipizide (Glucotrol -) 5 mg PO DAILY@0700 [facility] Last Admin: 02/25/17 06:04 Dose: Not Given Guaifenesin (Diabetic Tussin Dm -) 5 ml PO Q6H PRN PRN Reason: COUGH Last Admin: 02/10/17 21:05 Dose: 5 ml Sodium Chloride (Normal Saline -) 1,000 mls @ 50 mls/hr IV ASDIR [facility] Stop: 02/26/17 10:10 Insulin Aspart (Novolog Vial Sliding Scale -) 1 vial SQ ACHS [facility] PRN Reason: Protocol Last Admin: 02/25/17 06:04 Dose: Not Given Levothyroxine Sodium (Synthroid -) 75 mcg PO DAILY@0700 [facility] Last Admin: 02/25/17 06:04 Dose: 75 mcg Lidocaine (Lidoderm Patch -) 1 patch TP DAILY@2330 [facility] Last Admin: 02/24/17 22:41 Dose: Not Given Loratadine (Claritin -) 10 mg PO DAILY [facility] Last Admin: 02/25/17 09:43 Dose: 10 mg Metformin HCl (Glucophage -) 500 mg PO BIDAC [facility] Last Admin: 02/25/17 06:04 Dose: Not Given Metronidazole (Flagyl -) 500 mg PO TID [facility] Last Admin: 02/25/17 05:44 Dose: 500 mg Miscellaneous (Lidoderm Patch Removal) 1 each MC DAILY@1130 [facility] Last Admin: 02/24/17 15:22 Dose: Not Given Miscellaneous (Duragesic Patch Waste) 1 each TD PRN PRN PRN Reason: PAIN Stop: 03/02/17 11:14 Multi-Ingredient Lotion (Eucerin (Small Jar) -) 1 applic TP BID [facility] Last Admin: 02/24/17 21:13 Dose: 1 applic Multi-Ingredient Ointment (Zinc Oxide) 1 applic TP BID [facility] Last Admin: 02/24/17 21:15 Dose: 1 applic Mupirocin (Bactroban 2% Ointment -) 1 applic TP DAILY [facility] Last Admin: 02/24/17 15:07 Dose: Not Given Gkabb-1-Crcb Ethyl Esters (Lovaza -) 1 gm PO BID [facility] Last Admin: 02/25/17 09:43 Dose: 1 gm Ondansetron HCl (Zofran Injection) 8 mg IVPB Q12H PRN PRN Reason: NAUSEA AND/OR VOMITING Last Admin: 02/24/17 11:36 Dose: 8 mg Polyethylene Glycol (Miralax (For Daily Use) -) 17 gm PO DAILY [facility] Last Admin: 02/24/17 15:24 Dose: 17 grams Potassium Chloride (K-Dur -) 20 meq PO BID [facility] Last Admin: 02/25/17 09:43 Dose: 20 meq Ranitidine HCl (Zantac -) 150 mg PO DAILY [facility] Last Admin: 02/25/17 09:44 Dose: 150 mg Saliva Substitute (Mouthkote Solution -) 1 applic MM DAILY [facility] Last Admin: 02/24/17 15:21 Dose: Not Given Senna (Senna -) 2 tab PO HS PRN PRN Reason: CONSTIPATION Last Admin: 02/24/17 15:01 Dose: 2 tab Sodium Chloride ([place] [facility] [place] -) 2 spray NS TID PRN PRN Reason: NASAL CONGESTION Last Admin: 02/15/17 12:38 Dose: 2 sprays Tiotropium [place] (Spiriva -) 1 puff IH DAILY [facility] Last Admin: 02/25/17 09:44 Dose: 1 puff Tramadol HCl (Ultram -) 75 mg PO Q6H PRN PRN Reason: PAIN Last Admin: 02/23/17 19:37 Dose: 75 mg Warfarin Sodium (Coumadin -) 2 mg PO DAILY@1800 [facility] Last Admin: 02/24/17 17:23 Dose: 2 mg - Objective Vital Signs: Vital Signs Temperature 98 F 02/25/17 09:55 Pulse Rate 102 H 02/25/17 09:55 Respiratory Rate 18 02/25/17 09:55 Blood Pressure 126/60 02/25/17 09:55 O2 Sat by Pulse Oximetry (%) 96 02/23/17 21:00 Constitutional: Yes: No Distress, Calm Cardiovascular: Yes: Pulse Irregular Respiratory: Yes: Diminished Gastrointestinal: Yes: Normal Bowel Sounds, Soft. No: Distention, Tenderness Extremities: No: Erythema Edema: Yes Edema: LLE: 3+, RLE: 3+ Labs: CBC, BMP 02/25/17 06:00 02/25/17 06:00 INR, PTT INR 2.25 (0.82-1.09) H 02/24/17 05:45 Problem List - Problems (1) A-fib Code(s): I48.91 - UNSPECIFIED ATRIAL FIBRILLATION Qualifiers: (2) Primary cancer of ovary with widespread metastatic disease Code(s): C56.9 - MALIGNANT NEOPLASM OF UNSPECIFIED OVARY; C80.0 - DISSEMINATED MALIGNANT NEOPLASM, UNSPECIFIED (3) Depression, major, severe recurrence Code(s): F33.2 - MAJOR DEPRESSV DISORDER, RECURRENT SEVERE W/O PSYCH FEATURES (4) Metabolic encephalopathy Code(s): G93.41 - METABOLIC ENCEPHALOPATHY (5) Intractable back pain Code(s): M54.9 - DORSALGIA, UNSPECIFIED Assessment/Plan PLAN Pain control with Fetanyl patch and Tramadol as needed- on lasix , monitor renal function -- stable on po Lasix BID completed antibiotics continue with meds s/p chemo MRSA in sputum ,wound\ pain control monitor CBC O 2 as needed, nebs as needed
[2017-02-25] MEDS: POLYETHYLENE GLYCOL 3350 119 GM BTL PO SCH (12:18)
[2017-02-25] MEDS: LIDOCAINE PATCH REMOVAL MC SCH (12:19)
--- NOTE | 2017-02-25 12:34 | PN ---
Progress Note (short form) - Note Progress Note: Resting in NAD. No acute events overnight. Continues with dry cough. No hemoptysis. Intake & Output 02/23/17 02/23/17 02/24/17 02/25/17 00:59 23:59 23:59 23:59 Intake Total 320 450 Balance 320 450 Last Vital Signs Temp Pulse Resp BP Pulse Ox 98 F 86 18 126/60 97 02/25/17 09:55 02/25/17 11:15 02/25/17 09:55 02/25/17 09:55 02/25/17 11:15 Active Medications Acetaminophen (Tylenol -) 650 mg PO Q6H PRN PRN Reason: PAIN Last Admin: 02/23/17 09:06 Dose: 650 mg Albuterol Sulfate (Ventolin Hfa Inhaler -) 2 puff IH Q4H PRN PRN Reason: SHORT OF BREATH/WHEEZING Albuterol Sulfate (Ventolin 0.083% Nebulizer Soln -) 1 amp NEB TIDR [facility] Last Admin: 02/25/17 06:21 Dose: 1 amp Albuterol Sulfate (Ventolin 0.083% Nebulizer Soln -) 1 amp NEB Q4H PRN PRN Reason: SHORT OF BREATH/WHEEZING Bupropion HCl (Wellbutrin Xl -) 150 mg PO DAILY [facility] Last Admin: 02/25/17 09:43 Dose: 150 mg Diltiazem HCl (Cardizem Cd -) 300 mg PO DAILY [facility] Last Admin: 02/25/17 09:41 Dose: 300 mg Docusate Sodium (Colace -) 100 mg PO Q8H PRN PRN Reason: CONSTIPATION Last Admin: 02/24/17 15:01 Dose: 100 mg Fentanyl (Duragesic 12mcg Patch -) 1 patch TD Q72H [facility] Stop: 03/02/17 11:14 Last Admin: 02/23/17 14:25 Dose: 1 patch Furosemide (Lasix -) 40 mg PO BID@0600,1400 [facility] Last Admin: 02/25/17 05:44 Dose: 40 mg Glipizide (Glucotrol -) 5 mg PO DAILY@0700 [facility] Last Admin: 02/25/17 06:04 Dose: Not Given Guaifenesin (Diabetic Tussin Dm -) 5 ml PO Q6H PRN PRN Reason: COUGH Last Admin: 02/10/17 21:05 Dose: 5 ml Sodium Chloride (Normal Saline -) 1,000 mls @ 50 mls/hr IV ASDIR [facility] Stop: 02/26/17 10:10 Insulin Aspart (Novolog Vial Sliding Scale -) 1 vial SQ ACHS [facility] PRN Reason: Protocol Last Admin: 02/25/17 12:19 Dose: Not Given Levothyroxine Sodium (Synthroid -) 75 mcg PO DAILY@0700 [facility] Last Admin: 02/25/17 06:04 Dose: 75 mcg Lidocaine (Lidoderm Patch -) 1 patch TP DAILY@2330 [facility] Last Admin: 02/24/17 22:41 Dose: Not Given Loratadine (Claritin -) 10 mg PO DAILY [facility] Last Admin: 02/25/17 09:43 Dose: 10 mg Metformin HCl (Glucophage -) 500 mg PO BIDAC [facility] Last Admin: 02/25/17 06:04 Dose: Not Given Metronidazole (Flagyl -) 500 mg PO TID [facility] Last Admin: 02/25/17 05:44 Dose: 500 mg Miscellaneous (Lidoderm Patch Removal) 1 each MC DAILY@1130 [facility] Last Admin: 02/25/17 12:19 Dose: Not Given Miscellaneous (Duragesic Patch Waste) 1 each TD PRN PRN PRN Reason: PAIN Stop: 03/02/17 11:14 Multi-Ingredient Lotion (Eucerin (Small Jar) -) 1 applic TP BID [facility] Last Admin: 02/24/17 21:13 Dose: 1 applic Multi-Ingredient Ointment (Zinc Oxide) 1 applic TP BID [facility] Last Admin: 02/24/17 21:15 Dose: 1 applic Mupirocin (Bactroban 2% Ointment -) 1 applic TP DAILY [facility] Last Admin: 02/24/17 15:07 Dose: Not Given Qpils-2-Mxaj Ethyl Esters (Lovaza -) 1 gm PO BID [facility] Last Admin: 02/25/17 09:43 Dose: 1 gm Ondansetron HCl (Zofran Injection) 8 mg IVPB Q12H PRN PRN Reason: NAUSEA AND/OR VOMITING Last Admin: 02/24/17 11:36 Dose: 8 mg Polyethylene Glycol (Miralax (For Daily Use) -) 17 gm PO DAILY [facility] Last Admin: 02/25/17 12:18 Dose: Not Given Potassium Chloride (K-Dur -) 20 meq PO BID [facility] Last Admin: 02/25/17 09:43 Dose: 20 meq Ranitidine HCl (Zantac -) 150 mg PO DAILY [facility] Last Admin: 02/25/17 09:44 Dose: 150 mg Saliva Substitute (Mouthkote Solution -) 1 applic MM DAILY [facility] Last Admin: 02/24/17 15:21 Dose: Not Given Senna (Senna -) 2 tab PO HS PRN PRN Reason: CONSTIPATION Last Admin: 02/24/17 15:01 Dose: 2 tab Sodium Chloride ([place] -) 2 spray NS TID PRN PRN Reason: NASAL CONGESTION Last Admin: 02/15/17 12:38 Dose: 2 sprays Tiotropium [place] (Spiriva -) 1 puff IH DAILY [facility] Last Admin: 02/25/17 09:44 Dose: 1 puff Tramadol HCl (Ultram -) 75 mg PO Q6H PRN PRN Reason: PAIN Last Admin: 02/23/17 19:37 Dose: 75 mg Warfarin Sodium (Coumadin -) 2 mg PO DAILY@1800 [facility] Last Admin: 02/24/17 17:23 Dose: 2 mg Constitutional: Yes: No Distress, Obese Eyes: Yes: Conjunctiva Clear, EOM Intact HENT: Yes: Atraumatic, Normocephalic Neck: Yes: Supple, Trachea Midline Cardiovascular: Yes: Regular Rate and Rhythm Respiratory: Yes: Cough, Diminished, On Nasal O2. No: Accessory Muscle Use, Rhonchi, Stridor, Wheezes ...Inspection: Yes: WNL ...Clubbing: No Gastrointestinal: Yes: Normal Bowel Sounds, Soft, Abdomen, Obese Renal/: Yes: WNL Musculoskeletal: Yes: Back Pain Extremities: Yes: WNL Edema: Yes Peripheral Pulses WNL: Yes Integumentary: Yes: WNL Neurological: Yes: WNL, Alert, Oriented ...Motor Strength: WNL Psychiatric: Yes: WNL, Alert, Oriented Labs: Laboratory Results - last 24 hr 02/24/17 02/24/17 02/24/17 12:30 12:57 17:29 WBC RBC Hgb Hct MCV MCH MCHC RDW Plt Count MPV Neutrophils % Lymphocytes % Sodium Potassium Chloride Carbon Dioxide Anion Gap BUN Creatinine Creat Clearance w eGFR POC Glucometer 137 101 Random Glucose Calcium Total Bilirubin 0.6 Direct Bilirubin 0.3 H D AST 63 H ALT 27 Alkaline Phosphatase 164 H Total Protein 6.6 Albumin 2.5 L 02/24/17 02/25/17 02/25/17 20:40 05:30 06:00 WBC 8.6 RBC 3.28 L Hgb 10.8 Hct 32.0 L MCV 97.5 H MCH 33.0 MCHC 33.8 RDW 20.2 H Plt Count 284 MPV 9.1 Neutrophils % No Result Required. Lymphocytes % No Result Required. Sodium Potassium Chloride Carbon Dioxide Anion Gap BUN Creatinine Creat Clearance w eGFR POC Glucometer 106 71 Random Glucose Calcium Total Bilirubin Direct Bilirubin AST ALT Alkaline Phosphatase Total Protein Albumin 02/25/17 06:00 WBC RBC Hgb Hct MCV MCH MCHC RDW Plt Count MPV Neutrophils % Lymphocytes % Sodium 133 L Potassium 4.6 Chloride 94 L Carbon Dioxide 28 Anion Gap 11 BUN 12 Creatinine 1.0 D Creat Clearance w eGFR 56.37 POC Glucometer Random Glucose 107 H D Calcium 8.8 Total Bilirubin 0.7 Direct Bilirubin AST 63 H ALT 26 Alkaline Phosphatase 157 H Total Protein 6.3 L Albumin 2.4 L Problem List - Problems (1) A-fib Code(s): I48.91 - UNSPECIFIED ATRIAL FIBRILLATION Qualifiers: (2) Intractable back pain Code(s): M54.9 - DORSALGIA, UNSPECIFIED (3) Hypothyroid Code(s): E03.9 - HYPOTHYROIDISM, UNSPECIFIED (4) Lymphedema Code(s): I89.0 - LYMPHEDEMA, NOT ELSEWHERE CLASSIFIED (5) Anemia Code(s): D64.9 - ANEMIA, UNSPECIFIED (6) Anxiety and depression Code(s): F41.9 - ANXIETY DISORDER, UNSPECIFIED F32.9 - MAJOR DEPRESSIVE DISORDER, SINGLE EPISODE, UNSPECIFIED (7) Diabetes Code(s): E11.9 - TYPE 2 DIABETES MELLITUS WITHOUT COMPLICATIONS Qualifiers: Diabetes mellitus type: type 2 Diabetes mellitus complication status: without complication (8) HTN (hypertension) Code(s): I10 - ESSENTIAL (PRIMARY) HYPERTENSION Qualifiers: (9) Morbidly obese Code(s): E66.01 - MORBID (SEVERE) OBESITY DUE TO EXCESS CALORIES (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 Code(s): C56.9 - MALIGNANT NEOPLASM OF UNSPECIFIED OVARY C80.0 - DISSEMINATED MALIGNANT NEOPLASM, UNSPECIFIED (11) Pulmonary nodules/lesions, multiple Code(s): R91.8 - OTHER NONSPECIFIC ABNORMAL FINDING OF LUNG FIELD (12) SOB (shortness of breath) Code(s): R06.02 - SHORTNESS OF BREATH Assessment/Plan ABX per ID O2 as needed Coumadin BD TX Nasal saline D/C planning Dr An Problem List - Problems (1) A-fib Code(s): I48.91 - UNSPECIFIED ATRIAL FIBRILLATION Qualifiers: (2) Intractable back pain Code(s): M54.9 - DORSALGIA, UNSPECIFIED (3) Hypothyroid Code(s): E03.9 - HYPOTHYROIDISM, UNSPECIFIED (4) Lymphedema Code(s): I89.0 - LYMPHEDEMA, NOT ELSEWHERE CLASSIFIED (5) Anemia Code(s): D64.9 - ANEMIA, UNSPECIFIED (6) Anxiety and depression Code(s): F41.9 - ANXIETY DISORDER, UNSPECIFIED F32.9 - MAJOR DEPRESSIVE DISORDER, SINGLE EPISODE, UNSPECIFIED (7) Diabetes Code(s): E11.9 - TYPE 2 DIABETES MELLITUS WITHOUT COMPLICATIONS Qualifiers: Diabetes mellitus type: type 2 Diabetes mellitus complication status: without complication (8) HTN (hypertension) Code(s): I10 - ESSENTIAL (PRIMARY) HYPERTENSION Qualifiers: (9) Morbidly obese Code(s): E66.01 - MORBID (SEVERE) OBESITY DUE TO EXCESS CALORIES (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 Code(s): C56.9 - MALIGNANT NEOPLASM OF UNSPECIFIED OVARY C80.0 - DISSEMINATED MALIGNANT NEOPLASM, UNSPECIFIED (11) Pulmonary nodules/lesions, multiple Code(s): R91.8 - OTHER NONSPECIFIC ABNORMAL FINDING OF LUNG FIELD (12) SOB (shortness of breath) Code(s): R06.02 - SHORTNESS OF BREATH
[2017-02-25 13:02] LABS: TOTAL CELLS COUNTED 100
[2017-02-25 13:03] LABS: MYELOCYTE 2 % (0-2)
[2017-02-25] MEDS: ZINC OXIDE 20% TOPICAL OINTMENT 30 GM TUBE TP SCH ×2 (14:21→21:14)
[2017-02-25] MEDS: MINERAL OIL/PETROLAT/WATER TOPICAL CREAM 113 GM JAR TP SCH ×2 (14:22→21:14)
[2017-02-25] MEDS: MUPIROCIN 2% TOPICAL OINTMENT 22 GM TUBE TP SCH (14:22)
[2017-02-25] MEDS: LYTES/YERBA SANTA 240 ML BOTTLE MM SCH (14:22)
[2017-02-25] MEDS ORDERED: metroNIDAZOLE 250 MG TABLET PO SCH (15:45)
--- NOTE | 2017-02-25 16:51 | PN ---
Progress Note (short form) - Note Progress Note: Patient seen and examined. chart reviewed no complains. O/E General Appearance: Obese Lung: Clear to auscultation, Other (decreased Lt. lung base) Skin: itching excoriations. Abdomen: Soft, No tenderness, Normal bowel sounds Extremities: Other (lymphedema), +dressing Neurological: Intact Labs/Meds/Chart/Vitals reviewed Assessment/Plan: Metastatic high grade mullerian cancer. on second line chemo, s.p C1D1 gemzar on 01/23. Week 2 on 02/06 cellulitis in the LLE MUCH improved PO abx per ID pain control --c/w tramadol. on fentanyl 12 mcg Q 72hrs, afib :On coumadin- monitor INR s/p second dose of gem on 02/06. third dose gem today . d/c planning , home with PT
[2017-02-25] MEDS: GEMCITABINE HCL IV ONE (17:59)
[2017-02-25] MEDS: SODIUM CHLORIDE IV ONE (17:59)
[2017-02-25 19:56] LABS: INR 2.47 (0.82-1.09); PROTHROMBIN TIME (PATIENT) 27.9 SEC (9.98-11.88)
[2017-02-25] MEDS: WARFARIN NA 2 MG TABLET (UD) PO SCH (20:29)
[2017-02-25] MEDS ORDERED: INSULIN (NOVOLOG) ASPART 100 UNITS/ML 10ML VIAL ONE (21:12)
[2017-02-25] MEDS: ACETAMINOPHEN 325 MG TABLET (FP) PO PRN (22:46)
[2017-02-26] MEDS: LIDOCAINE 5% TOPICAL PATCH TP SCH (00:03)
[2017-02-26 07:56] LABS: INR 2.5 (0.82-1.09); PROTHROMBIN TIME (PATIENT) 28.3 SEC (9.98-11.88)
[2017-02-26 08:13] LABS: MCHC 33.9 g/dl (32.0-36.0); MEAN CELL VOLUME 97.4 fl (80-96); MEAN PLT VOLUME 9.4 fl (7.5-11.1); PLATELET COUNT 260 K/MM3 (134-434); RDW 20.3 % (11.6-15.6); WHITE BLOOD COUNT 7.7 K/mm3 (4.0-10.0)
[2017-02-26 08:46] LABS: ALBUMIN 2.2 g/dl (3.4-5.0); ALK PHOS 139 U/L (45-117); ANION GAP 7 (8-16); BILIRUBIN,TOTAL 0.5 mg/dL (0.2-1.0); CALCIUM 8.4 mg/dL (8.5-10.1); CO2 29 mmol/L (21-32); CREATININE 0.9 mg/dL (0.55-1.02); GLUCOSE,RANDOM 196 mg/dL (74-106); SGOT/AST 50 U/L (15-37); SGPT/ALT 21 U/L (12-78); TOT PROT 5.8 g/dl (6.4-8.2)
[2017-02-26] MEDS ORDERED: PT OWN MED DRAWER 7, Y5N ONE (09:19)
[2017-02-26] MEDS: RANITIDINE HCL 150 MG TABLET (FP) PO SCH (09:27)
[2017-02-26] MEDS: OMEGA-3 ACID ETHYL ESTERS (FATTY-ACIDS) 1 GM CAPSULE (FP) PO SCH (09:27)
[2017-02-26] MEDS: POTASSIUM CHLORIDE TABS 20 MEQ TABLET.ER (FP) PO SCH (09:27)
[2017-02-26] MEDS: MUPIROCIN 2% TOPICAL OINTMENT 22 GM TUBE TP SCH (09:28)
[2017-02-26] MEDS: LORATADINE 10 MG TABLET PO SCH (09:28)
[2017-02-26] MEDS: ZINC OXIDE 20% TOPICAL OINTMENT 30 GM TUBE TP SCH (09:28)
[2017-02-26] MEDS: MINERAL OIL/PETROLAT/WATER TOPICAL CREAM 113 GM JAR TP SCH (09:29)
[2017-02-26] MEDS: LYTES/YERBA SANTA 240 ML BOTTLE MM SCH (09:29)
--- NOTE | 2017-02-26 11:30 | PN ---
Progress Note, Physician Chief Complaint: no distress no SOB no chest pain family at bedside was able to climb steps in PT - Current Medication List Current Medications: Active Medications Acetaminophen (Tylenol -) 650 mg PO Q6H PRN PRN Reason: PAIN Last Admin: 02/25/17 22:46 Dose: 650 mg Albuterol Sulfate (Ventolin Hfa Inhaler -) 2 puff IH Q4H PRN PRN Reason: SHORT OF BREATH/WHEEZING Albuterol Sulfate (Ventolin 0.083% Nebulizer Soln -) 1 amp NEB TIDR [facility] Last Admin: 02/25/17 22:24 Dose: 1 amp Albuterol Sulfate (Ventolin 0.083% Nebulizer Soln -) 1 amp NEB Q4H PRN PRN Reason: SHORT OF BREATH/WHEEZING Bupropion HCl (Wellbutrin Xl -) 150 mg PO DAILY [facility] Last Admin: 02/25/17 09:43 Dose: 150 mg Diltiazem HCl (Cardizem Cd -) 300 mg PO DAILY [facility] Last Admin: 02/25/17 09:41 Dose: 300 mg Docusate Sodium (Colace -) 100 mg PO Q8H PRN PRN Reason: CONSTIPATION Last Admin: 02/24/17 15:01 Dose: 100 mg Fentanyl (Duragesic 12mcg Patch -) 1 patch TD Q72H [facility] Stop: 03/02/17 11:14 Last Admin: 02/23/17 14:25 Dose: 1 patch Furosemide (Lasix -) 40 mg PO BID@0600,1400 [facility] Last Admin: 02/25/17 16:01 Dose: 40 mg Glipizide (Glucotrol -) 5 mg PO DAILY@0700 [facility] Last Admin: 02/25/17 06:04 Dose: Not Given Guaifenesin (Diabetic Tussin Dm -) 5 ml PO Q6H PRN PRN Reason: COUGH Last Admin: 02/10/17 21:05 Dose: 5 ml Insulin Aspart (Novolog Vial Sliding Scale -) 1 vial SQ ACHS [facility] PRN Reason: Protocol Last Admin: 02/25/17 21:13 Dose: 2 units Levothyroxine Sodium (Synthroid -) 75 mcg PO DAILY@0700 [facility] Last Admin: 02/25/17 06:04 Dose: 75 mcg Lidocaine (Lidoderm Patch -) 1 patch TP DAILY@2330 [facility] Last Admin: 02/26/17 00:03 Dose: Not Given Loratadine (Claritin -) 10 mg PO DAILY [facility] Last Admin: 02/25/17 09:43 Dose: 10 mg Metformin HCl (Glucophage -) 500 mg PO BIDAC [facility] Last Admin: 02/25/17 16:01 Dose: 500 mg Miscellaneous (Lidoderm Patch Removal) 1 each MC DAILY@1130 [facility] Last Admin: 02/25/17 12:19 Dose: Not Given Miscellaneous (Duragesic Patch Waste) 1 each TD PRN PRN PRN Reason: PAIN Stop: 03/02/17 11:14 Multi-Ingredient Lotion (Eucerin (Small Jar) -) 1 applic TP BID [facility] Last Admin: 02/26/17 09:29 Dose: Not Given Multi-Ingredient Ointment (Zinc Oxide) 1 applic TP BID [facility] Last Admin: 02/25/17 21:14 Dose: 1 applic Mupirocin (Bactroban 2% Ointment -) 1 applic TP DAILY [facility] Last Admin: 02/25/17 14:22 Dose: 1 applic Oxaxf-6-[place]u Ethyl Esters (Lovaza -) 1 gm PO BID [facility] Last Admin: 02/25/17 21:14 Dose: 1 gm Ondansetron HCl (Zofran Injection) 8 mg IVPB Q12H PRN PRN Reason: NAUSEA AND/OR VOMITING Last Admin: 02/24/17 11:36 Dose: 8 mg Polyethylene Glycol (Miralax (For Daily Use) -) 17 gm PO DAILY [facility] Last Admin: 02/25/17 12:18 Dose: Not Given Potassium Chloride (K-Dur -) 20 meq PO BID [facility] Last Admin: 02/25/17 21:14 Dose: 20 meq Ranitidine HCl (Zantac -) 150 mg PO DAILY [facility] Last Admin: 02/25/17 09:44 Dose: 150 mg Saliva Substitute (Mouthkote Solution -) 1 applic MM DAILY [facility] Last Admin: 02/26/17 09:29 Dose: 1 applic Senna (Senna -) 2 tab PO HS PRN PRN Reason: CONSTIPATION Last Admin: 02/24/17 15:01 Dose: 2 tab Sodium Chloride ([place] Nasal [place] -) 2 spray NS TID PRN PRN Reason: NASAL CONGESTION Last Admin: 02/15/17 12:38 Dose: 2 sprays Tiotropium [place] (Spiriva -) 1 puff IH DAILY [facility] Last Admin: 02/25/17 09:44 Dose: 1 puff Tramadol HCl (Ultram -) 75 mg PO Q6H PRN PRN Reason: PAIN Last Admin: 02/23/17 19:37 Dose: 75 mg Warfarin Sodium (Coumadin -) 2 mg PO DAILY@1800 [facility] Last Admin: 02/25/17 20:29 Dose: 2 mg - Objective Vital Signs: Vital Signs Temperature 97.9 F 02/26/17 10:00 Pulse Rate 103 H 02/26/17 10:00 Respiratory Rate 18 02/26/17 10:00 Blood Pressure 106/65 02/26/17 10:00 O2 Sat by Pulse Oximetry (%) 98 02/26/17 09:00 Constitutional: Yes: No Distress, Calm Cardiovascular: Yes: Pulse Irregular Respiratory: Yes: Diminished Gastrointestinal: Yes: Normal Bowel Sounds, Soft, Abdomen, Obese. No: Distention, Tenderness Edema: Yes Edema: LLE: 3+, RLE: 3+ Labs: CBC, BMP 02/26/17 07:00 02/26/17 08:00 INR, PTT INR 2.50 (0.82-1.09) H 02/26/17 06:00 Problem List - Problems (1) A-fib Code(s): I48.91 - UNSPECIFIED ATRIAL FIBRILLATION Qualifiers: (2) Primary cancer of ovary with widespread metastatic disease Code(s): C56.9 - MALIGNANT NEOPLASM OF UNSPECIFIED OVARY; C80.0 - DISSEMINATED MALIGNANT NEOPLASM, UNSPECIFIED (3) Depression, major, severe recurrence Code(s): F33.2 - MAJOR DEPRESSV DISORDER, RECURRENT SEVERE W/O PSYCH FEATURES (4) Metabolic encephalopathy Code(s): G93.41 - METABOLIC ENCEPHALOPATHY (5) Intractable back pain Code(s): M54.9 - DORSALGIA, UNSPECIFIED Assessment/Plan PLAN Pain control with Fetanyl patch and Tramadol as needed- on lasix , renal function -- stable on po Lasix BID completed antibiotics pt will need pain meds at home spoke with Oncology-- dc plan for home today will need VNS walker recommended continue with meds s/p chemo MRSA in sputum ,wound\ pain control monitor CBC O 2 as needed, nebs as needed
[2017-02-26] MEDS: fentaNYL 12mcg/hr PATCH.TD72 TD SCH (12:15)
[2017-02-26] MEDS: INSULIN SLIDING SCALE (NOVOLOG) 1 VIAL SQ SCH (12:16)
[2017-02-26] MEDS: LIDOCAINE PATCH REMOVAL MC SCH (12:17)
--- NOTE | 2017-02-26 13:10 | DS ---
Physical Examination Vital Signs: Vital Signs Temperature 97.9 F 02/26/17 10:00 Pulse Rate 87 02/26/17 11:43 Respiratory Rate 18 02/26/17 10:00 Blood Pressure 106/65 02/26/17 10:00 O2 Sat by Pulse Oximetry (%) 98 02/26/17 11:43 Constitutional: Yes: Well Nourished, No Distress, Calm Eyes: Yes: Conjunctiva Clear, EOM Intact HENT: Yes: Atraumatic, Normocephalic Neck: Yes: Supple Cardiovascular: Yes: Regular Rate and Rhythm Respiratory: Yes: Regular Gastrointestinal: Yes: Normal Bowel Sounds, Abdomen, Obese Edema: No Labs: CBC, BMP 02/26/17 07:00 02/26/17 08:00 Discharge Summary Reason For Visit: MALIGNANT NEOPLASM, OVARY Current Active Problems Hemoptysis (Acute) Intractable back pain (Acute) Metabolic encephalopathy (Acute) Hospital Course: Pt admitted for severe back pain unable to be tolerated with PO meds. She was initially on oxy and dilaudid developed allergic reaction and was now on fentanyl and also tramadol which controlled her pain and her course was complicated by cellulitis of the LLE for which she was on vacnocmycin as per ID. she also has MRSA positive sputum. she completed flagyl prior to d/c. She was seen by Pulm/ID/Podiatry. She participated in PT. She devloped gem induced cytopenias which resolved with no intervention. for the Metastatic high grade mullerian cancer. on second line chemo, s.p C1D1 gemzar on 01/23. Week 2 on 02/06 dose three was given on 02/25 For afib :On coumadin- She was seen by psychology through her admission. She is stable to be discharged. She did not want to be in a NH. Daughter aware of the plan She will follow-up with on 03/04 at [facility] Condition: Stable - Instructions Disposition: VNS/HOME HEALTH CARE - Home Medications Comprehensive Discharge Medication List: Ambulatory Orders Levothyroxine [Synthroid -] 75 mcg PO DAILY 10/17/12 Loratadine [Claritin -] 10 mg PO DAILY 10/17/12 Metformin HCl [Glucophage] 500 mg PO BID 10/17/12 [place]-3 Acid Ethyl Esters [Lovaza -] 1,000 mg PO TID 10/17/12 Insulin (Novolog) [Novolog Flexpen -] See Protocol SQ ACHS #1 pen 10/03/16 Ranitidine [Zantac -] 150 mg PO BID #30 tab 10/03/16 Potassium Chloride 10 meq PO DAILY 10/24/16 Diltiazem Cd [Cardizem Cd -] 300 mg PO DAILY 10/25/16 Glipizide 5 mg PO DAILY #60 tablet 10/31/16 Furosemide [Lasix -] 40 mg PO DAILY 01/02/17 Montelukast Na [Singulair -] 10 mg PO HS 01/02/17 Albuterol Sulfate Inhaler - [Ventolin HFA Inhaler -] 2 puff IH Q4H PRN #5 inhaler 02/26/17 Bupropion HCl [Wellbutrin Xl -] 150 mg PO DAILY #90 tab.sr.24h 02/26/17 FENTANYL 12mcg PATCH [DURAGESIC 12mcg PATCH -] 1 each TD Q72H #15 patch MDD 1 Fentanyl Patch Waste [Duragesic Patch Waste] 1 each TD Q3D PRN #15 each Furosemide [Lasix -] 40 mg PO BID@0600,1400 #60 tablet 02/26/17 Lytes/Yerba Neelima [Mouthkote Solution -] 1 applic MM DAILY #1 applic 02/26/17 Nystatin Powder [Nystop Powder -] 15 gm TP BID #60 powder 02/26/17 [place]-3 Acid Ethyl Esters [Lovaza -] 1 gm PO BID #90 cap 02/26/17 Polyethylene Glycol 3350 [Miralax 119 gm Btl -] 17 gm PO DAILY #1 bottle Potassium Chloride [K-Dur -] 20 meq PO BID #60 tablet.er 02/26/17 Sennosides [Senna -] 2 tab PO HS PRN #60 tablet 02/26/17 Tiotropium [place] [Spiriva] 1 puff IH DAILY #5 inh 02/26/17 Tramadol HCl [Ultram -] 75 mg PO Q6H PRN #90 tablet MDD 4 02/26/17 Warfarin Na [Coumadin -] 2 mg PO DAILY@1800 #30 tablet 02/26/17 Zinc Oxide 1 applic TP BID #2 tube 02/26/17
[2017-02-26] MEDS: FUROSEMIDE 40 MG TABLET (FP) PO SCH (13:22)
[2017-02-26] MEDS: ALBUTEROL SO4 0.083% IH SOL 2.5 MG/3 ML VIAL.NEB. NEB SCH (14:27)
[2017-02-26 17:08] VITALS: TEMP 97.5
[2017-02-26 17:11] VITALS: BP 107/54; PULSE 85
== END 2017-02-26 17:32 | disposition home health service (06) | DRG 754 ==
LOC: JONCCHEMO 07:29 → J7W 12:03 → JONCCHEMO 12:03 → J7W 18:19
PROVIDERS: ADMIT Internal Medicine Hematology & Oncology; ATTEND Internal Medicine Hematology & Oncology
PROC: 3E04305 Introduction of Other Antineoplastic into Central Vein, Percutaneous Approach (ICD-10-PCS; 2017-01-23)
PROC: 30233N1 Transfusion of Nonautologous Red Blood Cells into Peripheral Vein, Percutaneous Approach (ICD-10-PCS; 2017-02-03)
PROC: 0HBRXZZ Excision of Toe Nail, External Approach (ICD-10-PCS; principal; 2017-02-11)
PROC: 0HBRXZZ Excision of Toe Nail, External Approach (ICD-10-PCS; 2017-02-11)
PROC: 0HBRXZZ Excision of Toe Nail, External Approach (ICD-10-PCS; 2017-02-11)
PROC: 0HBRXZZ Excision of Toe Nail, External Approach (ICD-10-PCS; 2017-02-11)
PROC: 0HBRXZZ Excision of Toe Nail, External Approach (ICD-10-PCS; 2017-02-11)
PROC: 0HBRXZZ Excision of Toe Nail, External Approach (ICD-10-PCS; 2017-02-11)
PROC: 0HBRXZZ Excision of Toe Nail, External Approach (ICD-10-PCS; 2017-02-11)
PROC: 0HBRXZZ Excision of Toe Nail, External Approach (ICD-10-PCS; 2017-02-11)
PROC: 0HBRXZZ Excision of Toe Nail, External Approach (ICD-10-PCS; 2017-02-11)
PROC: 0HBRXZZ Excision of Toe Nail, External Approach (ICD-10-PCS; 2017-02-11)
PROC: 0Y9N0ZX Drainage of Left Foot, Open Approach, Diagnostic (ICD-10-PCS; 2017-02-11)
DX: C56.9 Malignant neoplasm of unspecified ovary (principal); G93.41 Metabolic encephalopathy; C78.00 Secondary malignant neoplasm of unspecified lung; C78.2 Secondary malignant neoplasm of pleura; C78.6 Secondary malignant neoplasm of retroperitoneum and peritoneum; C79.89 Secondary malignant neoplasm of other specified sites; Z68.44 Body mass index [BMI] 60.0-69.9, adult; F33.2 Major depressive disorder, recurrent severe without psychotic features; R04.2 Hemoptysis; L03.116 Cellulitis of left lower limb; L02.612 Cutaneous abscess of left foot; L97.528 Non-pressure chronic ulcer of other part of left foot with other specified severity; I48.91 Unspecified atrial fibrillation; I10 Essential (primary) hypertension; J44.9 Chronic obstructive pulmonary disease, unspecified; K21.9 Gastro-esophageal reflux disease without esophagitis; E66.01 Morbid (severe) obesity due to excess calories; M54.89 Other dorsalgia; Z66 Do not resuscitate; I89.0 Lymphedema, not elsewhere classified; K59.09 Other constipation; E87.6 Hypokalemia; D63.0 Anemia in neoplastic disease; E03.9 Hypothyroidism, unspecified; D69.59 Other secondary thrombocytopenia; T45.1X5A Adverse effect of antineoplastic and immunosuppressive drugs, initial encounter; Z79.01 Long term (current) use of anticoagulants; R06.02 Shortness of breath; B35.1 Tinea unguium; E11.621 Type 2 diabetes mellitus with foot ulcer; B95.62 Methicillin resistant Staphylococcus aureus infection as the cause of diseases classified elsewhere
CPT/HCPCS: 36415; 36430; 70450-TC; 71010-TC; 71250-TC; 72128-TC; 72131-TC; 73630-TC-LT; 76882; 80048; 80053; 80076; 83735; 85025; 85027; 85610; 85730; 86304; 86850; 86900; 86901; 86922; 87040; 87070; 87076; 87086; 87186; 87205; 94640; 96361; 96375; 96413; 97116-GP; 97162-GP; G0480; J8540; P9038; P9058

== ENCOUNTER 2017-03-11 07:12 | Day surgery (SDC) | payer OTHER ==
[2017-03-11] MEDS ORDERED: DEXTROSE 5% IVPB ONE (10:00)
[2017-03-11] MEDS ORDERED: SODIUM CHLORIDE 250 ML IV ONE ×2 (10:00→11:00)
[2017-03-11] MEDS ORDERED: WATER IVPB ONE (10:00)
[2017-03-11] MEDS ORDERED: DEXAMETHASONE INJECTION 12 MG in SODIUM CHLORIDE 50 ML IVPB ONE (10:00)
[2017-03-11] MEDS ORDERED: ONDANSETRON IVPB ONE (10:00)
[2017-03-11 10:22] LABS: MCH 32.8 pg (25.7-33.7); MCHC 32.7 g/dl (32.0-36.0); MEAN CELL VOLUME 100.5 fl (80-96); MEAN PLT VOLUME 9.2 fl (7.5-11.1); PLATELET COUNT 106 K/MM3 (134-434); RDW 19.6 % (11.6-15.6); WHITE BLOOD COUNT 9.1 K/mm3 (4.0-10.0)
[2017-03-11] MEDS ORDERED: GEMCITABINE HCL IV ONE (10:30)
[2017-03-11] MEDS ORDERED: SODIUM CHLORIDE IV ONE (10:30)
[2017-03-11 10:50] LABS: INR 3.05 (0.82-1.09); PROTHROMBIN TIME (PATIENT) 34.5 SEC (9.98-11.88)
[2017-03-11 10:53] LABS: ACTIVATED PTT 38.9 SECONDS (26.9-34.4)
[2017-03-11 11:05] LABS: ALBUMIN 2.5 g/dl (3.4-5.0); ANION GAP 8 (8-16); BILIRUBIN,DIRECT 0.4 mg/dL (0.0-0.2); CALCIUM 8.8 mg/dL (8.5-10.1); CO2 30 mmol/L (21-32); CREATININE 0.9 mg/dL (0.55-1.02); GLUCOSE,RANDOM 122 mg/dL (74-106); MAGNESIUM 1.7 mg/dL (1.8-2.4); SGOT/AST 89 U/L (15-37)
[2017-03-11 11:08] LABS: ALK PHOS 172 U/L (45-117); BILIRUBIN,TOTAL 0.8 mg/dL (0.2-1.0); SGPT/ALT 34 U/L (12-78); TOT PROT 6.7 g/dl (6.4-8.2)
[2017-03-11] MEDS ORDERED: FENTANYL PATCH WASTE TD PRN (11:37)
[2017-03-11] MEDS ORDERED: ACETAMINOPHEN 325 MG TABLET (FP) PO PRN (11:38)
[2017-03-11] MEDS ORDERED: traMADol HCL 50 MG TABLET PO PRN (11:38)
[2017-03-11] MEDS ORDERED: fentaNYL 25mcg/hr PATCH.TD72 TD SCH (11:45)
[2017-03-11] MEDS ORDERED: SODIUM CHLORIDE 1,000 ML IV ONE (12:00)
[2017-03-11] MEDS ORDERED: POLYETHYLENE GLYCOL 3350 119 GM BTL PO ONE (12:00)
[2017-03-11] MEDS ORDERED: MAGNESIUM SULF 50% (8.12 MEQ/2 ML-1 GM VIAL) IVPB ONE (12:35)
[2017-03-11 13:54] VITALS: BP 101/72; PULSE 88; TEMP 97.8
[2017-03-11] MEDS ORDERED: PORTA CATH FLUSH 10 ML IVPUSH ONE (13:54)
[2017-03-11 15:42] LABS: MYELOCYTE 1 % (0-2); PLATELET ESTIMATE DECREASED; TOTAL CELLS COUNTED 100
== END 2017-03-11 20:31 | disposition home or self-care (01) ==
LOC: JONCCHEMO 07:12 → J7W 10:53 → JONCCHEMO 20:31
PROVIDERS: ATTEND Internal Medicine Hematology & Oncology
DX: Z51.11 Encounter for antineoplastic chemotherapy (principal); C56.9 Malignant neoplasm of unspecified ovary; C78.00 Secondary malignant neoplasm of unspecified lung; C78.2 Secondary malignant neoplasm of pleura; C78.6 Secondary malignant neoplasm of retroperitoneum and peritoneum
CPT/HCPCS: 36415; 80053; 80076; 83735; 85025; 85610; 85730; 96361; 96367; 96375; 96413; 96417

== ENCOUNTER 2017-03-18 07:51 | Day surgery (SDC) | payer OTHER ==
[2017-03-18] MEDS ORDERED: SODIUM CHLORIDE 250 ML IV ONE ×2 (08:00→09:30)
[2017-03-18] MEDS ORDERED: ONDANSETRON IVPB ONE (08:30)
[2017-03-18] MEDS ORDERED: DEXAMETHASONE IVPB ONE (08:30)
[2017-03-18] MEDS ORDERED: SODIUM CHLORIDE IVPB ONE (08:30)
[2017-03-18] MEDS ORDERED: GEMCITABINE HCL IV ONE ×2 (09:00→15:00)
[2017-03-18] MEDS ORDERED: SODIUM CHLORIDE IV ONE ×2 (09:00→15:00)
[2017-03-18 12:29] LABS: MCH 33.2 pg (25.7-33.7); MCHC 33.4 g/dl (32.0-36.0); MEAN CELL VOLUME 99.3 fl (80-96); MEAN PLT VOLUME 8.7 fl (7.5-11.1); PLATELET COUNT 80 K/MM3 (134-434); RDW 20.2 % (11.6-15.6); WHITE BLOOD COUNT 16.7 K/mm3 (4.0-10.0)
[2017-03-18 12:42] LABS: INR 1.45 (0.82-1.09); PROTHROMBIN TIME (PATIENT) 16.4 SEC (9.98-11.88)
[2017-03-18 13:10] LABS: ALBUMIN 2.3 g/dl (3.4-5.0); ANION GAP 7 (8-16); BILIRUBIN,DIRECT 0.4 mg/dL (0.0-0.2); CALCIUM 8.6 mg/dL (8.5-10.1); CO2 28 mmol/L (21-32); CREATININE 0.9 mg/dL (0.55-1.02); GLUCOSE,RANDOM 154 mg/dL (74-106); SGOT/AST 70 U/L (15-37); SGPT/ALT 36 U/L (12-78)
[2017-03-18 13:11] LABS: ALK PHOS 209 U/L (45-117); BILIRUBIN,TOTAL 0.9 mg/dL (0.2-1.0); TOT PROT 6.2 g/dl (6.4-8.2)
[2017-03-18 14:04] LABS: METAMYELOCYTE 8 % (0-2); MYELOCYTE 4 % (0-2); TOTAL CELLS COUNTED 100
[2017-03-18 14:05] LABS: PLATELET ESTIMATE DECREASED
[2017-03-18 15:26] VITALS: TEMP 96
[2017-03-18] MEDS ORDERED: PORTA CATH FLUSH 10 ML IVPUSH ONE (16:44)
[2017-03-18 18:30] VITALS: BP 128/86; PULSE 96
== END 2017-03-18 18:42 | disposition home or self-care (01) ==
LOC: JONCCHEMO 07:51 → J7W 14:34 → JONCCHEMO 18:42
PROVIDERS: ATTEND Internal Medicine Hematology & Oncology
DX: Z51.11 Encounter for antineoplastic chemotherapy (principal); C56.9 Malignant neoplasm of unspecified ovary; C78.00 Secondary malignant neoplasm of unspecified lung; C78.2 Secondary malignant neoplasm of pleura; C78.6 Secondary malignant neoplasm of retroperitoneum and peritoneum; E11.621 Type 2 diabetes mellitus with foot ulcer; I89.0 Lymphedema, not elsewhere classified; Z99.3 Dependence on wheelchair; Z79.01 Long term (current) use of anticoagulants
CPT/HCPCS: 36415; 80053; 80076; 83735; 85025; 85610; 86304; 86850; 86900; 86901; 96361; 96367; 96413; G0463-25

== ENCOUNTER 2017-03-22 12:54 | Inpatient (IN) | payer OTHER ==
[2017-03-22 14:42] LABS: ANION GAP 8 (8-16); BLOOD UREA NITROGEN 16 mg/dL (7-18); CALCIUM 7.9 mg/dL (8.5-10.1); CHLORIDE 96 mmol/L (98-107); CO2 27 mmol/L (21-32); CREATININE 0.7 mg/dL (0.55-1.02); GLUCOSE,RANDOM 137 mg/dL (74-106); POTASSIUM 3.6 mmol/L (3.5-5.1); SODIUM 131 mmol/L (136-145)
[2017-03-22 14:43] LABS: HEMATOCRIT 25.6 % (32.4-45.2); HEMOGLOBIN 8.5 GM/dL (10.7-15.3); MCHC 33.2 g/dl (32.0-36.0); MEAN CELL VOLUME 99.4 fl (80-96); MEAN PLT VOLUME 9.5 fl (7.5-11.1); PLATELET COUNT 39 K/MM3 (134-434); RBC 2.58 M/mm3 (3.60-5.2); RDW 20.4 % (11.6-15.6); WHITE BLOOD COUNT 22.4 K/mm3 (4.0-10.0)
[2017-03-22] MEDS ORDERED: PORTA CATH FLUSH 10 ML IVPUSH ONE (15:18)
[2017-03-22 16:28] LABS: ANISOCYTOSIS 1+; MACROCYTOSIS 1+; TOXIC GRANULATION FEW
[2017-03-22 16:29] LABS: PLATELET ESTIMATE DECREASED
--- NOTE | 2017-03-22 18:00 | HP ---
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 Pt presented to the ED after outpt labs reveled thrombocytopenia to 39k. Coumadin was held and is still on hold, no active bleed noted. Pt received 1 unit platelets and is being admitted for further transfusions. Of note, pt was climbing the stairs, when she reached the final step her leg went weak and then pivoted around. She now has some eccyhymosis to her lateral side, slip was witnessed by daughter and EMS worker, she did not hit her head, xrays pending. History Source: Patient, Family Member Limitations to Obtaining History: No Limitations - Past Medical History Cardiovascular: Yes: AFIB, HTN, Other (chronic lymphedema) Pulmonary: Yes: COPD, Other (recently had a chest tube removed). No: O2 Dependent Gastrointestinal: Yes: GERD Heme/Onc: Yes: Anemia, Other Endocrine: Yes: Diabetes Mellitus, Hyperthyroidism - Smoking History Smoking history: Never smoked Have you smoked in the past 12 months: No Aproximately how many cigarettes per day: 0 If you are a former smoker, when did you quit?: n - Alcohol/Substance Use Hx Alcohol Use: No History of Substance Use: reports: None - Social History Usual Living Arrangement: Yes: Alone ADL: Family Assistance History of Recent Travel: No Home Medications - Allergies Allergies/Adverse Reactions: Allergies Allergy/AdvReac Type Severity Reaction Status Date / Time hydromorphone HCl AdvReac Severe Verified 01/25/17 05:56 [From Dilaudid] oxycodone AdvReac Severe Verified 01/24/17 19:39 - Home Medications Home Medications: Ambulatory Orders Levothyroxine [Synthroid -] 75 mcg PO DAILY 10/17/12 Loratadine [Claritin -] 10 mg PO DAILY 10/17/12 Metformin HCl [Glucophage] 500 mg PO BID 10/17/12 [place]-3 Acid Ethyl Esters [Lovaza -] 1,000 mg PO TID 10/17/12 Insulin (Novolog) [Novolog Flexpen -] See Protocol SQ ACHS #1 pen 10/03/16 Ranitidine [Zantac -] 150 mg PO BID #30 tab 10/03/16 Potassium Chloride 10 meq PO DAILY 10/24/16 Diltiazem Cd [Cardizem Cd -] 300 mg PO DAILY 10/25/16 Glipizide 5 mg PO DAILY #60 tablet 10/31/16 Furosemide [Lasix -] 40 mg PO DAILY 01/02/17 Montelukast Na [Singulair -] 10 mg PO HS 01/02/17 Albuterol Sulfate Inhaler - [Ventolin HFA Inhaler -] 2 puff IH Q4H PRN #5 inhaler 02/26/17 Bupropion HCl [Wellbutrin Xl -] 150 mg PO DAILY #90 tab.sr.24h 02/26/17 FENTANYL 12mcg PATCH [DURAGESIC 12mcg PATCH -] 1 each TD Q72H #15 patch MDD 1 Fentanyl Patch Waste [Duragesic Patch Waste] 1 each TD Q3D PRN #15 each Furosemide [Lasix -] 40 mg PO BID@0600,1400 #60 tablet 02/26/17 Lytes/Yerba Neelima [Mouthkote Solution -] 1 applic MM DAILY #1 applic 02/26/17 Nystatin Powder [Nystop Powder -] 15 gm TP BID #60 powder 02/26/17 [place]-3 Acid Ethyl Esters [Lovaza -] 1 gm PO BID #90 cap 02/26/17 Polyethylene Glycol 3350 [Miralax 119 gm Btl -] 17 gm PO DAILY #1 bottle Potassium Chloride [K-Dur -] 20 meq PO BID #60 tablet.er 02/26/17 Sennosides [Senna -] 2 tab PO HS PRN #60 tablet 02/26/17 Tiotropium [place] [Spiriva] 1 puff IH DAILY #5 inh 02/26/17 Tramadol HCl [Ultram -] 75 mg PO Q6H PRN #90 tablet MDD 4 02/26/17 Warfarin Na [Coumadin -] 2 mg PO DAILY@1800 #30 tablet 02/26/17 Zinc Oxide 1 applic TP BID #2 tube 02/26/17 Family Disease History - Family Disease History Family Disease History: Diabetes: Mother, CA: Mother Review of Systems - Review of Systems Constitutional: reports: No Symptoms Eyes: reports: No Symptoms HENT: reports: No Symptoms Neck: reports: No Symptoms Cardiovascular: reports: No Symptoms Respiratory: reports: No Symptoms Gastrointestinal: reports: No Symptoms Genitourinary: reports: No Symptoms Musculoskeletal: reports: Muscle Weakness Integumentary: reports: Bruising Neurological: reports: No Symptoms Endocrine: reports: No Symptoms Hematology/Lymphatic: reports: No Symptoms Psychiatric: reports: No Symptoms Physical Examination Vital Signs: Vital Signs Temperature 97.6 F 03/22/17 17:41 Pulse Rate 98 H 03/22/17 17:41 Respiratory Rate 20 03/22/17 17:41 Blood Pressure 131/57 03/22/17 17:41 O2 Sat by Pulse Oximetry (%) Constitutional: Yes: Pallor Eyes: Yes: Conjunctiva Clear HENT: Yes: Atraumatic Neck: Yes: Supple, Trachea Midline Cardiovascular: Yes: Pulse Irregular, S1, S2 Respiratory: Yes: Regular, CTA Bilaterally Gastrointestinal: Yes: Normal Bowel Sounds, Abdomen, Obese Renal/: Yes: WNL Musculoskeletal: Yes: Muscle Weakness (l leg) Edema: Yes Integumentary: Yes: Venous Stasis Changes (bilateral le), Other (L lateral side ecchymosis (below ribs) + tenderness to palpation R foot wound) Neurological: Yes: Alert, Oriented, Cran Nerves II-XII Intact, Unsteady Gait, Weakness Psychiatric: Yes: Alert, Oriented Labs: CBC, BMP 03/22/17 13:50 03/22/17 13:50 Imaging - Results X-ray: Pending Problem List - Problems (1) A-fib Code(s): I48.91 - UNSPECIFIED ATRIAL FIBRILLATION Qualifiers: (2) Abscess Code(s): L02.91 - CUTANEOUS ABSCESS, UNSPECIFIED (3) Anemia Code(s): D64.9 - ANEMIA, UNSPECIFIED (4) Anxiety and depression Code(s): F41.9 - ANXIETY DISORDER, UNSPECIFIED; F32.9 - MAJOR DEPRESSIVE DISORDER, SINGLE EPISODE, UNSPECIFIED (5) CHF exacerbation Code(s): I50.9 - HEART FAILURE, UNSPECIFIED (6) Cancer of ovary Code(s): C56.9 - MALIGNANT NEOPLASM OF UNSPECIFIED OVARY Qualifiers: (7) HTN (hypertension) Code(s): I10 - ESSENTIAL (PRIMARY) HYPERTENSION Qualifiers: (8) Morbidly obese Code(s): E66.01 - MORBID (SEVERE) OBESITY DUE TO EXCESS CALORIES (9) Thrombocytopenia Code(s): D69.6 - THROMBOCYTOPENIA, UNSPECIFIED Assessment/Plan Assessment: 61 year old with 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 Severe Thrombocytopenia - s/p 1 unit platelets - Check AM CBC - Transfuse as needed - Goal platelets >50k - Hold coumadin - Monitor for bleeding - - Fall precaution - Check pending xray s/p slip in home 2. A fib - Hold coumadin as above - Daily INR - No AC at this time - Cardizem CD 300mg daily 3. Ovarian cx - Last chemo, Gemzar 03/18 - Mgmgt per Dr. Miller - Continue ultram, fentanyl patch 25mcg (to be changed friday) 4. HTN - Controlled - Cardizem CD 5. DM II - Hold PO antidiabetics - ISS, BGM ACHS 6. Lymphadema - Reports L leg has increased heaviness - Hold lasix for hyponatremia 7. COPD - Singulair - Symbicort - Supplemental o2 PRN 8. Weakness - PT eval 9. Hyponatremia - Corrected for glucose 131.9 - Pt did not take lasix today, hold for tomorrow - Check AM BMP Visit type - Emergency Visit Emergency Visit: Yes Care time: The patient presented to the Emergency Department on the above date and was hospitalized for further evaluation of their emergent condition. - New Patient This patient is new to me today: Yes Date on this admission: 03/22/17 - Critical Care Critical Care patient: Yes Total Critical Care Time (in minutes): 35 Critical Care Statement: The care of this patient involved high complexity decision making to prevent further life threatening deterioration of the patient 's condition and/or to evaluate & treat vital organ system(s) failure or risk of failure.
[2017-03-22] MEDS: INSULIN (NOVOLOG) ASPART 100 UNITS/ML 10ML VIAL SQ SCH (22:13)
[2017-03-22] MEDS: MONTELUKAST NA 10 MG TABLET PO SCH (22:14)
[2017-03-22] MEDS: traMADol HCL 50 MG TABLET PO PRN (22:14)
[2017-03-22] MEDS: ALBUTEROL SO4 0.083% IH SOL 2.5 MG/3 ML VIAL.NEB. NEB SCH (22:20)
[2017-03-23] MEDS: INSULIN (NOVOLOG) ASPART 100 UNITS/ML 10ML VIAL SQ SCH ×4 (06:24→21:53)
[2017-03-23] MEDS: LEVOTHYROXINE NA 75 MCG TABLET (FP) PO SCH (06:24)
[2017-03-23 07:13] LABS: BASO % 0.2 % (0-2.0); EOS % 0.3 % (0-4.5); HEMOGLOBIN 8.1 GM/dL (10.7-15.3); LYMPH % 6.3 % (8-40); MCH 33.2 pg (25.7-33.7); MCHC 33.7 g/dl (32.0-36.0); MEAN CELL VOLUME 98.7 fl (80-96); MEAN PLT VOLUME 7.8 fl (7.5-11.1); MONO % 0.5 % (3.8-10.2); NEUT % 92.7 % (42.8-82.8); PLATELET COUNT 49 K/MM3 (134-434); RBC 2.44 M/mm3 (3.60-5.2); RDW 20.6 % (11.6-15.6); WHITE BLOOD COUNT 13.4 K/mm3 (4.0-10.0)
[2017-03-23 07:25] LABS: INR 1.35 (0.82-1.09); PROTHROMBIN TIME (PATIENT) 15.2 SEC (9.98-11.88)
[2017-03-23 07:28] LABS: ADD RBC MORPHOLOGY YES
[2017-03-23 07:31] LABS: ALBUMIN 2.2 g/dl (3.4-5.0); ANION GAP 8 (8-16); BLOOD UREA NITROGEN 14 mg/dL (7-18); CALCIUM 8.7 mg/dL (8.5-10.1); CHLORIDE 95 mmol/L (98-107); CO2 28 mmol/L (21-32); CREATININE 0.7 mg/dL (0.55-1.02); GLUCOSE,RANDOM 142 mg/dL (74-106); MAGNESIUM 2.1 mg/dL (1.8-2.4); PHOSPHOROUS 2.3 mg/dL (2.5-4.9); POTASSIUM 3.7 mmol/L (3.5-5.1); SGOT/AST 57 U/L (15-37); SGPT/ALT 34 U/L (12-78); SODIUM 131 mmol/L (136-145)
[2017-03-23 07:35] LABS: ALK PHOS 189 U/L (45-117); BILIRUBIN,TOTAL 1.2 mg/dL (0.2-1.0); TOT PROT 5.8 g/dl (6.4-8.2)
[2017-03-23] MEDS ORDERED: PT OWN MED DRAWER 7, Y5N ONE ×2 (09:13→19:28)
[2017-03-23] MEDS: POTASSIUM CHLORIDE TABS 20 MEQ TABLET.ER (FP) PO SCH ×2 (09:25→21:52)
[2017-03-23] MEDS: TIOTROPIUM BROMIDE 18 MCG/INH (DEVICE W/ 5 CAPSULES) IH SCH (09:26)
[2017-03-23] MEDS ORDERED: FUROSEMIDE 40 MG TABLET (FP) PO SCH (10:00)
--- NOTE | 2017-03-23 10:14 | CONSULT ---
Consult Consult Specialty:: Internal Medicine Reason for Consultation:: Thrombocytopenia - History of Present Illness Chief Complaint: thrmobocytopenia, pain History of Present Illness: is a 61 y/o female with PMHx of metstatic ovarian Ca with liver and lung mets who progressed while on treatment with Carbo/Taxol and is now on therapy with Gemzar. Patient presented yesterday for elective transfusions for anemia and thrombocytopenia, however she was noted to have weakness and leg pain on the left side. She also had eccymosis on her left lateral side and hence she was admitted for further work-up and x-rays. Today on seeing the patient, she continues to have mild pain in the left leg. - History Source History Provided By: Patient Limitations to Obtaining History: No Limitations - Past Medical History Cardio/Vascular: Yes: AFIB, HTN, Other (chronic lymphedema) Pulmonary: Yes: COPD, Other (recently had a chest tube removed). No: O2 Dependent Gastrointestinal: Yes: GERD ...: No Endocrine: Yes: Diabetes Mellitus, Hyperthyroidism - Alcohol/Substance Use Hx Alcohol Use: No History of Substance Use: reports: None - Smoking History Smoking history: Never smoked Have you smoked in the past 12 months: No Aproximately how many cigarettes per day: 0 If you are a former smoker, when did you quit?: n - Social History Usual Living Arrangement: With Child ADL: Family Assistance History of Recent Travel: No Home Medications - Allergies Allergies/Adverse Reactions: Allergies Allergy/AdvReac Type Severity Reaction Status Date / Time hydromorphone HCl AdvReac Severe Verified 01/25/17 05:56 [From Dilaudid] oxycodone AdvReac Severe Verified 01/24/17 19:39 - Home Medications Home Medications: Ambulatory Orders Levothyroxine [Synthroid -] 75 mcg PO DAILY 10/17/12 Loratadine [Claritin -] 10 mg PO DAILY 10/17/12 Metformin HCl [Glucophage] 500 mg PO BID 10/17/12 [place]-3 Acid Ethyl Esters [Lovaza -] 1,000 mg PO TID 10/17/12 Insulin (Novolog) [Novolog Flexpen -] See Protocol SQ ACHS #1 pen 10/03/16 Ranitidine [Zantac -] 150 mg PO BID #30 tab 10/03/16 Potassium Chloride 10 meq PO DAILY 10/24/16 Diltiazem Cd [Cardizem Cd -] 300 mg PO DAILY 10/25/16 Glipizide 5 mg PO DAILY #60 tablet 10/31/16 Furosemide [Lasix -] 40 mg PO DAILY 01/02/17 Montelukast Na [Singulair -] 10 mg PO HS 01/02/17 Albuterol Sulfate Inhaler - [Ventolin HFA Inhaler -] 2 puff IH Q4H PRN #5 inhaler 02/26/17 Bupropion HCl [Wellbutrin Xl -] 150 mg PO DAILY #90 tab.sr.24h 02/26/17 FENTANYL 12mcg PATCH [DURAGESIC 12mcg PATCH -] 1 each TD Q72H #15 patch MDD 1 Fentanyl Patch Waste [Duragesic Patch Waste] 1 each TD Q3D PRN #15 each Furosemide [Lasix -] 40 mg PO BID@0600,1400 #60 tablet 02/26/17 Lytes/Yerba Neelima [Mouthkote Solution -] 1 applic MM DAILY #1 applic 02/26/17 Nystatin Powder [Nystop Powder -] 15 gm TP BID #60 powder 02/26/17 [place]-3 Acid Ethyl Esters [Lovaza -] 1 gm PO BID #90 cap 02/26/17 Polyethylene Glycol 3350 [Miralax 119 gm Btl -] 17 gm PO DAILY #1 bottle Potassium Chloride [K-Dur -] 20 meq PO BID #60 tablet.er 02/26/17 Sennosides [Senna -] 2 tab PO HS PRN #60 tablet 02/26/17 Tiotropium [place] [Spiriva] 1 puff IH DAILY #5 inh 02/26/17 Tramadol HCl [Ultram -] 75 mg PO Q6H PRN #90 tablet MDD 4 02/26/17 Warfarin Na [Coumadin -] 2 mg PO DAILY@1800 #30 tablet 02/26/17 Zinc Oxide 1 applic TP BID #2 tube 02/26/17 Family Disease History - Family Disease History Family Disease History: Diabetes: Mother, CA: Mother Review of Systems - Review of Systems Musculoskeletal: reports: Joint Pain, Joint Swelling, Muscle Pain Physical Exam Vital Signs: Vital Signs Temperature 97.8 F 03/23/17 09:20 Pulse Rate 105 H 03/23/17 09:20 Respiratory Rate 18 03/23/17 09:20 Blood Pressure 127/56 03/23/17 09:20 O2 Sat by Pulse Oximetry (%) 98 03/23/17 00:01 Constitutional: Yes: Obese Eyes: Yes: WNL HENT: Yes: WNL Neck: Yes: WNL Cardiovascular: Yes: Regular Rate and Rhythm Respiratory: Yes: CTA Bilaterally Gastrointestinal: Yes: Normal Bowel Sounds Breast(s): Yes: WNL Musculoskeletal: Yes: Other Extremities: Yes: Other (bilateral lower extremity edema, left more than right) Labs: CBC, BMP 03/23/17 06:00 03/23/17 06:00 Imaging - Results X-ray: Report Reviewed Problem List - Problems (1) Thrombocytopenia Code(s): D69.6 - THROMBOCYTOPENIA, UNSPECIFIED (2) Intractable back pain Code(s): M54.9 - DORSALGIA, UNSPECIFIED Assessment/Plan 61 y/o female with metastatic ovarian Ca on Gemzar with pancytopenia and left lateral side pain 1.Pancytopenia - CBC from yesterday and today show mildly decreased counts and no indication to be transfused at this time -patient will be transfused when plt count <20K or Hgb < 8- 2.Left sided pain , left leg pain - x rays show the presence of excessive soft tissue and soft tissue calcifications -there is no acute fracture noted -chest x ray shows multiple lung nodules and masses consistent with previous metastasis -pain management and supportive care per primary team
[2017-03-23 10:51] LABS: ANISOCYTOSIS 1+; MACROCYTOSIS 2+
[2017-03-23] MEDS: traMADol HCL 50 MG TABLET PO PRN ×2 (10:59→21:53)
--- NOTE | 2017-03-23 12:06 | PN ---
Progress Note (short form) - Note Progress Note: pt seen/ examined. chart reviewed send yesterday by Dr. Miller for platlet transfusion- got one unit yesterday pt also had mechanical fall - x rays -ve for fracture today c/c- soreness - left flank area cough + denies cp. chronic ill appearance sitting in chair hematology f/u noted. Vital Signs Temp 97.8 F 03/23/17 09:20 Pulse 105 H 03/23/17 09:20 Resp 18 03/23/17 09:20 BP 127/56 03/23/17 09:20 Pulse Ox 98 03/23/17 00:01 Intake & Output 03/22/17 03/23/17 03/23/17 23:59 11:59 23:59 Intake Total 740 1150 Balance 740 1150 Weight 337 lb 8 oz Intake: Oral 500 850 Platelets 240 300 Other: Voiding Method Toilet Toilet # Unmeasured Voids Void 2 1 Bowel Movement No No Height 5 ft 2 in 5 ft 2 in Weight Measurement Method Standing Scale Active Medications Acetaminophen (Tylenol -) 500 mg PO Q4H PRN PRN Reason: FEVER OR PAIN Albuterol Sulfate (Ventolin 0.083% Nebulizer Soln -) 1 amp NEB [facility] Last Admin: 03/22/17 22:20 Dose: 1 amp Bupropion HCl (Wellbutrin Xl -) 150 mg PO DAILY [facility] Last Admin: 03/23/17 09:25 Dose: 150 mg Diltiazem HCl (Cardizem Cd -) 300 mg PO DAILY [facility] Last Admin: 03/23/17 09:25 Dose: 300 mg Insulin Aspart (Novolog Vial) 1 units SQ ACHS [facility] PRN Reason: Protocol Last Admin: 03/23/17 06:24 Dose: Not Given Levothyroxine Sodium (Synthroid -) 75 mcg PO DAILY@0700 [facility] Last Admin: 03/23/17 06:24 Dose: 75 mcg Montelukast Sodium (Singulair -) 10 mg PO HS [facility] Last Admin: 03/22/17 22:14 Dose: 10 mg Polyethylene Glycol (Miralax (For Daily Use) -) 17 gm PO DAILY [facility] Potassium Chloride (K-Dur -) 20 meq PO BID [facility] Last Admin: 03/23/17 09:25 Dose: 20 meq Senna (Senna -) 2 tab PO HS PRN PRN Reason: CONSTIPATION Tiotropium [place] (Spiriva -) 1 puff IH DAILY [facility] Last Admin: 03/23/17 09:26 Dose: 1 puff Tramadol HCl (Ultram -) 75 mg PO Q6H PRN Last Admin: 03/23/17 10:59 Dose: 75 mg CBC, BMP 03/23/17 06:00 03/23/17 06:00 INR, PTT INR 1.35 (0.82-1.09) H 03/23/17 06:00 x rays- noted Physical Examination Constitutional: Yes: weak/ chronic ill appearance Eyes: Yes: Conjunctiva Clear HENT: Yes: Atraumatic Neck: Yes: Supple, Trachea Midline Cardiovascular: Yes: Pulse Irregular, S1, S2 Respiratory: Yes: diminished at bases Gastrointestinal: Yes: Normal Bowel Sounds, Abdomen, Obese Echymosis + left flank area Neurological: Yes: Alert, Oriented, Cran Nerves II-XII Intact, Unsteady Gait, Weakness Psychiatric: Yes: Alert, Oriented Ext-Chronic venous stasis of legs Imaging - Results X-ray: Noted Problem List - Problems (1) A-fib Code(s): I48.91 - UNSPECIFIED ATRIAL FIBRILLATION Qualifiers: (2) Abscess Code(s): L02.91 - CUTANEOUS ABSCESS, UNSPECIFIED (3) Anemia Code(s): D64.9 - ANEMIA, UNSPECIFIED (4) Anxiety and depression Code(s): F41.9 - ANXIETY DISORDER, UNSPECIFIED; F32.9 - MAJOR DEPRESSIVE DISORDER, SINGLE EPISODE, UNSPECIFIED (5) CHF exacerbation Code(s): I50.9 - HEART FAILURE, UNSPECIFIED (6) Cancer of ovary Code(s): C56.9 - MALIGNANT NEOPLASM OF UNSPECIFIED OVARY Qualifiers: (7) HTN (hypertension) Code(s): I10 - ESSENTIAL (PRIMARY) HYPERTENSION Qualifiers: (8) Morbidly obese Code(s): E66.01 - MORBID (SEVERE) OBESITY DUE TO EXCESS CALORIES (9) Thrombocytopenia Code(s): D69.6 - THROMBOCYTOPENIA, UNSPECIFIED Assessment/Plan Assessment: 61 year old with 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 Severe Thrombocytopenia - s/p 1 unit platelets - no evidence of bleeding - Monitor for bleeding - - Fall precaution - 2. A fib - restart coumdin with caution - Daily INR - - Cardizem CD 300mg daily 3. Ovarian cx--metastatic- advanced - Last chemo, Gemzar 03/18 - Mgmgt per Dr. Miller - Continue ultram, fentanyl patch 25mcg (to be changed friday) 4. HTN - Controlled - Cardizem CD 5. DM II - Hold PO antidiabetics - ISS, BGM ACHS 6. Lymphadema - Reports L leg has increased heaviness - Hold lasix for hyponatremia 7. COPD/ metastatic disease - Singulair - Symbicort - Supplemental o2 PRN - robitussin prn 8. Weakness - PT eval 9. Leukocytosi Reactive ? decreased Monitor 10.Depression. Mood stable for now. ice pack to left flank area. robitussin prn zofron for nausea overall condition very gaurded. will follow. Problem List - Problems (1) Thrombocytopenia Code(s): D69.6 - THROMBOCYTOPENIA, UNSPECIFIED (2) A-fib Code(s): I48.91 - UNSPECIFIED ATRIAL FIBRILLATION Qualifiers: (3) Anemia Code(s): D64.9 - ANEMIA, UNSPECIFIED (4) Diabetes Code(s): E11.9 - TYPE 2 DIABETES MELLITUS WITHOUT COMPLICATIONS Qualifiers: Diabetes mellitus type: type 2 Diabetes mellitus complication status: without complication (5) Hypoalbuminemia Code(s): E88.09 - OTH DISORDERS OF PLASMA-PROTEIN METABOLISM, NEC (6) Primary cancer of ovary with widespread metastatic disease Code(s): C56.9 - MALIGNANT NEOPLASM OF UNSPECIFIED OVARY; C80.0 - DISSEMINATED MALIGNANT NEOPLASM, UNSPECIFIED
[2017-03-23] MEDS: ONDANSETRON 4 MG/2 ML VIAL IVPB PRN (12:30)
[2017-03-23] MEDS: WARFARIN NA 2 MG TABLET (UD) PO SCH ×2 (13:36→17:46)
[2017-03-23] MEDS: POLYETHYLENE GLYCOL 3350 119 GM BTL PO SCH (17:46)
[2017-03-23] MEDS: ALBUTEROL SO4 0.083% IH SOL 2.5 MG/3 ML VIAL.NEB. NEB SCH (21:52)
[2017-03-23] MEDS: MONTELUKAST NA 10 MG TABLET PO SCH (21:52)
[2017-03-24] MEDS: INSULIN (NOVOLOG) ASPART 100 UNITS/ML 10ML VIAL SQ SCH ×4 (06:12→18:23)
[2017-03-24] MEDS: LEVOTHYROXINE NA 75 MCG TABLET (FP) PO SCH (06:12)
[2017-03-24] MEDS ORDERED: INSULIN (NOVOLOG) ASPART 100 UNITS/ML 10ML VIAL ONE (06:27)
[2017-03-24 07:15] LABS: HEMATOCRIT 23.6 % (32.4-45.2); HEMOGLOBIN 8.1 GM/dL (10.7-15.3); MCH 33.8 pg (25.7-33.7); MCHC 34.3 g/dl (32.0-36.0); MEAN CELL VOLUME 98.6 fl (80-96); MEAN PLT VOLUME 8.1 fl (7.5-11.1); PLATELET COUNT 40 K/MM3 (134-434); RDW 19.8 % (11.6-15.6); WHITE BLOOD COUNT 10.5 K/mm3 (4.0-10.0)
[2017-03-24 07:33] LABS: INR 1.32 (0.82-1.09); PROTHROMBIN TIME (PATIENT) 14.9 SEC (9.98-11.88)
[2017-03-24 08:04] LABS: CHLORIDE 96 mmol/L (98-107); POTASSIUM 4.4 mmol/L (3.5-5.1); SODIUM 130 mmol/L (136-145)
[2017-03-24 08:18] LABS: ALBUMIN 1.9 g/dl (3.4-5.0); ALK PHOS 206 U/L (45-117); ANION GAP 7 (8-16); BILIRUBIN,TOTAL 0.8 mg/dL (0.2-1.0); BLOOD UREA NITROGEN 11 mg/dL (7-18); CALCIUM 8.2 mg/dL (8.5-10.1); CO2 27 mmol/L (21-32); CREATININE 0.7 mg/dL (0.55-1.02); GLUCOSE,RANDOM 133 mg/dL (74-106); SGOT/AST 54 U/L (15-37); SGPT/ALT 32 U/L (12-78); TOT PROT 5.6 g/dl (6.4-8.2)
[2017-03-24] MEDS ORDERED: PT OWN MED DRAWER 7, Y5N ONE (09:42)
[2017-03-24] MEDS: POLYETHYLENE GLYCOL 3350 119 GM BTL PO SCH (09:51)
[2017-03-24] MEDS: TIOTROPIUM BROMIDE 18 MCG/INH (DEVICE W/ 5 CAPSULES) IH SCH (09:51)
[2017-03-24] MEDS: POTASSIUM CHLORIDE TABS 20 MEQ TABLET.ER (FP) PO SCH ×2 (09:51→22:03)
[2017-03-24] MEDS ORDERED: FUROSEMIDE 40 MG TABLET (FP) PO SCH ×2 (10:00→11:15)
--- NOTE | 2017-03-24 10:46 | PN ---
Progress Note (short form) - Note Progress Note: ID consult dictated imp/reccd admitted for thrombocytopenia/anemia- for transfusion noted to have elevated WBC leukocytosis- suspect secondary to neupogen, now improving agree with blood cultures no fevers observe off antibiotics metastatic ovarian cancer on chemo history of mrsa foot infection- contact isolation please call back if needed Problem List - Problems (1) Leukocytosis Code(s): D72.829 - ELEVATED WHITE BLOOD CELL COUNT, UNSPECIFIED (2) Primary cancer of ovary with widespread metastatic disease Code(s): C56.9 - MALIGNANT NEOPLASM OF UNSPECIFIED OVARY; C80.0 - DISSEMINATED MALIGNANT NEOPLASM, UNSPECIFIED (3) MRSA (methicillin resistant Staphylococcus aureus) colonization Code(s): Z22.322 - CARRIER OR SUSPECTED CARRIER OF METHICILLIN RESIS STAPH
[2017-03-24 11:14] LABS: ANISOCYTOSIS 1+; PLATELET ESTIMATE DECREASED
--- NOTE | 2017-03-24 11:47 | PN ---
Progress Note, Physician - Current Medication List Current Medications: Active Medications Acetaminophen (Tylenol -) 500 mg PO Q4H PRN PRN Reason: FEVER OR PAIN Albuterol Sulfate (Ventolin 0.083% Nebulizer Soln -) 1 amp NEB HS [facility] Last Admin: 03/23/17 21:52 Dose: 1 amp Bupropion HCl (Wellbutrin Xl -) 150 mg PO DAILY [facility] Last Admin: 03/24/17 09:50 Dose: 150 mg Diltiazem HCl (Cardizem Cd -) 300 mg PO DAILY [facility] Last Admin: 03/24/17 09:50 Dose: 300 mg Furosemide (Lasix -) 40 mg PO BID@0600,1400 [facility] Guaifenesin (Diabetic Tussin Dm -) 5 ml PO Q6H PRN PRN Reason: COUGH Insulin Aspart (Novolog Vial) 1 units SQ ACHS [facility] PRN Reason: Protocol Last Admin: 03/24/17 06:12 Dose: Not Given Levothyroxine Sodium (Synthroid -) 75 mcg PO DAILY@0700 [facility] Last Admin: 03/24/17 06:12 Dose: 75 mcg Montelukast Sodium (Singulair -) 10 mg PO [facility] Last Admin: 03/23/17 21:52 Dose: 10 mg Ondansetron HCl (Zofran Injection) 4 mg IVPB Q8H PRN PRN Reason: NAUSEA Last Admin: 03/23/17 12:30 Dose: 4 mg Polyethylene Glycol (Miralax (For Daily Use) -) 17 gm PO DAILY [facility] Last Admin: 03/24/17 09:51 Dose: Not Given Potassium Chloride (K-Dur -) 20 meq PO BID [facility] Last Admin: 03/24/17 09:51 Dose: 20 meq Senna (Senna -) 2 tab PO HS PRN PRN Reason: CONSTIPATION Tiotropium [place] (Spiriva -) 1 puff IH DAILY [facility] Last Admin: 03/24/17 09:51 Dose: 1 puff Tramadol HCl (Ultram -) 75 mg PO Q6H PRN Last Admin: 03/23/17 21:53 Dose: 75 mg Warfarin Sodium (Coumadin -) 2 mg PO DAILY@1800 [facility] Last Admin: 03/23/17 17:46 Dose: 2 mg - Objective Vital Signs: Vital Signs Temperature 98.0 F 03/24/17 09:49 Pulse Rate 99 H 03/24/17 09:49 Respiratory Rate 20 03/24/17 09:49 Blood Pressure 115/60 03/24/17 09:49 O2 Sat by Pulse Oximetry (%) 99 03/23/17 21:00 Labs: CBC, BMP 03/24/17 06:00 03/24/17 06:00 INR, PTT INR 1.32 (0.82-1.09) H 03/24/17 06:00
--- NOTE | 2017-03-24 11:54 | CONS ---
DATE OF CONSULTATION: REQUESTING PHYSICIAN: Zachary High MD HISTORY: This is a 61-year-old woman known to our service with metastatic ovarian cancer with liver and lung metastases who is on chemotherapy with Gemzar. She was admitted for an elective transfusion for anemia and thrombocytopenia. She mentioned to the staff that she had felt weak at home and fallen to her side. There was no loss of consciousness but injured her left flank. She was admitted for further evaluation. We are asked to see her because she was noted to have an incidental elevated white count. She has no fever. She chronically feels cold. There is no nausea, vomiting, diarrhea, or dysuria. She has a poor appetite. PAST MEDICAL HISTORY: Notable for atrial fibrillation, hypertension, chronic lymphedema, COPD. She uses oxygen at home. She has a history of GERD, morbid obesity, diabetes, and hyperthyroidism. She has had a history of a MRSA foot infection in the past as well. She is status post Gemzar. Last session March 18. She received Neupogen at the end of last week. She is currently awake and alert sitting up in a chair. She ambulates with walker, and she reports improvement in her flank discomfort. ALLERGIES: DILAUDID and OXYCODONE. MEDICATIONS: At home include levothyroxine, Singulair, Ventolin inhaler, fentanyl patch, furosemide, Lovaza, MiraLAX, potassium, Senna, Spiriva, Ultram, warfarin, Glipizide, diltiazem, insulin, metformin. SOCIAL HISTORY: She lives at home. She uses a walker. FAMILY HISTORY: Notable for diabetes and cancer in her mother. There is no history of any travel. REVIEW OF SYSTEMS: As per HPI. She chronically feels cold. No fevers. No change. She has chronic cough as well. PHYSICAL EXAMINATION: General: She is awake and alert. Vital Signs: Temperature 98, pulse 99, blood pressure 115/60, respiratory rate 20. She weighs 339 pounds. HEENT: She is normocephalic. Neck: She has no thrush. Her neck is supple. She has no pharyngitis. Lungs: Diminished breath sounds at both bases. Heart: Regular rate and rhythm. Abdomen: Soft and nontender. Skin: She has an ecchymosis on her left flank. Above that is her prior chest tube scar, which is chronically indurated but no erythema. Extremities: Bilateral lymphedema. She has a small ulcer on the plantar surface of her left foot that has no drainage or edema. It is about 0.5 cm in size. LABORATORIES: Notable for a white count today at 10.5. It was as high as 22.4 on admission, platelets 40,000, hemoglobin 8.1, INR 1.3, BUN 11, creatinine 0.7 with alkaline phosphatase 206. She has blood cultures, which were sent yesterday and are pending. In summary, this is a 61-year-old woman with ovarian cancer metastatic on chemotherapy admitted for transfusion and status post fall at home noted to have leukocytosis, which I suspect is secondary to Neupogen, now improving. I agree with the blood cultures, which have been sent. She has no fever. Would observe off antibiotics at this time. As well, she is nonneutropenic. Further recommendations to follow. Please call back if needed. Zachariah [id number]
[2017-03-24] MEDS: FUROSEMIDE 40 MG TABLET (FP) PO SCH (14:42)
[2017-03-24] MEDS: traMADol HCL 50 MG TABLET PO PRN ×2 (14:42→22:07)
--- NOTE | 2017-03-24 16:35 | PN ---
Progress Note (short form) - Note Progress Note: Patient seen and examined Has some cough/SOB Last Vital Signs Temp Pulse Resp BP Pulse Ox 98.1 F 83 20 101/53 95 03/24/17 14:53 03/24/17 14:53 03/24/17 14:53 03/24/17 14:53 03/24/17 09:00 Cor: RSR, No murmurs, No gallops Lungs: Clear to P&A Abd: Soft, Normal bowel sounds, No organomegaly Ext:No significant edema Skin: No rashes, Integument intact Abnormal Lab Results 03/24/17 03/24/17 03/24/17 06:00 06:00 06:00 WBC 10.5 H RBC 2.40 L Hgb 8.1 L Hct 23.6 L MCV 98.6 H MCH 33.8 H RDW 19.8 H Plt Count 40 L Neutrophils % (Manual) 85.0 H Monocytes % (Manual) 1 L Myelocytes % (Man) 3 H D PT with INR 14.90 H INR 1.32 H Sodium 130 L Chloride 96 L Anion Gap 7 L Random Glucose 133 H Calcium 8.2 L AST 54 H Alkaline Phosphatase 206 H Total Protein 5.6 L Albumin 1.9 L Home Medication List Medication Instructions Recorded Confirmed Type Levothyroxine [Synthroid -] 75 mcg PO DAILY 10/17/12 03/18/17 History Loratadine [Claritin -] 10 mg PO DAILY 10/17/12 03/18/17 History Metformin HCl [Glucophage] 500 mg PO BID 10/17/12 03/18/17 History [place]-3 Acid Ethyl Esters [Lovaza 1,000 mg PO TID 10/17/12 03/18/17 History -] Potassium Chloride 10 meq PO DAILY 10/24/16 03/18/17 History Diltiazem Cd [Cardizem Cd -] 300 mg PO DAILY 10/25/16 03/18/17 History Furosemide [Lasix -] 40 mg PO DAILY 01/02/17 03/18/17 History Montelukast Na [Singulair -] 10 mg PO HS 01/02/17 03/18/17 History Active Medications Generic Name Dose Route Start Last Admin Trade Name Freq PRN Reason Stop Dose Admin Acetaminophen 500 mg 03/22/17 18:38 Tylenol - PO Q4H PRN FEVER OR PAIN Albuterol Sulfate 1 amp 03/22/17 22:00 03/23/17 21:52 Ventolin 0.083% Nebulizer Soln - NEB 1 amp HS [facility] Administration Bupropion HCl 150 mg 03/23/17 10:00 03/24/17 09:50 Wellbutrin Xl - PO 150 mg DAILY [facility] Administration Diltiazem HCl 300 mg 03/23/17 10:00 03/24/17 09:50 Cardizem Cd - PO 300 mg DAILY [facility] Administration Furosemide 40 mg 03/24/17 14:00 03/24/17 14:42 Lasix - PO 40 mg BID@0600,1400 [facility] Administration Guaifenesin 5 ml 03/23/17 12:11 Diabetic Tussin Dm - PO Q6H PRN COUGH Insulin Aspart 1 units 03/22/17 22:00 03/24/17 12:17 Novolog Vial SQ Not Given ACHS [facility] Protocol Levothyroxine Sodium 75 mcg 03/23/17 07:00 03/24/17 06:12 Synthroid - PO 75 mcg DAILY@0700 [facility] Administration Montelukast Sodium 10 mg 03/22/17 22:00 03/23/17 21:52 Singulair - PO 10 mg HS [facility] Administration Ondansetron HCl 4 mg 03/23/17 12:10 03/23/17 12:30 Zofran Injection IVPB 4 mg Q8H PRN Administration NAUSEA Polyethylene Glycol 17 gm 03/23/17 10:00 03/24/17 09:51 Miralax (For Daily Use) - PO Not Given DAILY [facility] Potassium Chloride 20 meq 03/23/17 10:00 03/24/17 09:51 K-Dur - PO 20 meq BID [facility] Administration Senna 2 tab 03/22/17 18:13 Senna - PO HS PRN CONSTIPATION Tiotropium [place] 1 puff 03/23/17 10:00 03/24/17 09:51 Spiriva - IH 1 puff DAILY [facility] Administration Tramadol HCl 75 mg 03/22/17 18:15 03/24/17 14:42 Ultram - PO 75 mg Q6H PRN Administration Warfarin Sodium 2 mg 03/23/17 12:15 03/23/17 17:46 Coumadin - PO 2 mg DAILY@1800 [facility] Administration A/P 61 y/o patient with 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
[2017-03-24] MEDS: INSULIN SLIDING SCALE (NOVOLOG) 1 VIAL SQ SCH ×2 (18:20→22:04)
[2017-03-24] MEDS: ALBUTEROL SO4 0.083% IH SOL 2.5 MG/3 ML VIAL.NEB. NEB SCH (21:44)
[2017-03-24] MEDS: MONTELUKAST NA 10 MG TABLET PO SCH (22:04)
[2017-03-24] MEDS: ACETAMINOPHEN 500 MG TABLET (FP) PO PRN (23:24)
[2017-03-25] MEDS: LIDOCAINE 5% TOPICAL PATCH TP SCH ×2 (00:17→22:04)
[2017-03-25] MEDS: fentaNYL 25mcg/hr PATCH.TD72 TD SCH (04:03)
[2017-03-25] MEDS: traMADol HCL 50 MG TABLET PO PRN ×4 (04:04→22:53)
[2017-03-25] MEDS: FUROSEMIDE 40 MG TABLET (FP) PO SCH ×2 (06:22→13:25)
[2017-03-25] MEDS: LEVOTHYROXINE NA 75 MCG TABLET (FP) PO SCH (06:22)
[2017-03-25] MEDS: INSULIN SLIDING SCALE (NOVOLOG) 1 VIAL SQ SCH ×4 (06:23→22:07)
[2017-03-25 08:50] LABS: HEMATOCRIT 28.9 % (32.4-45.2); HEMOGLOBIN 9.7 GM/dL (10.7-15.3); MCH 31.9 pg (25.7-33.7); MCHC 33.6 g/dl (32.0-36.0); MEAN PLT VOLUME 7.6 fl (7.5-11.1); RBC 3.05 M/mm3 (3.60-5.2); RDW 20.5 % (11.6-15.6); WHITE BLOOD COUNT 11.9 K/mm3 (4.0-10.0)
[2017-03-25 08:55] LABS: PLATELET COUNT 29 K/MM3 (134-434)
[2017-03-25 09:04] LABS: INR 1.35 (0.82-1.09); PROTHROMBIN TIME (PATIENT) 15.3 SEC (9.98-11.88)
[2017-03-25 09:20] LABS: ALBUMIN 2.2 g/dl (3.4-5.0); ANION GAP 10 (8-16); BILIRUBIN,TOTAL 1.6 mg/dL (0.2-1.0); BLOOD UREA NITROGEN 10 mg/dL (7-18); CALCIUM 9.1 mg/dL (8.5-10.1); CHLORIDE 94 mmol/L (98-107); CO2 26 mmol/L (21-32); CREATININE 0.7 mg/dL (0.55-1.02); GLUCOSE,RANDOM 140 mg/dL (74-106); SGOT/AST 58 U/L (15-37); SGPT/ALT 34 U/L (12-78); SODIUM 130 mmol/L (136-145); TOT PROT 5.9 g/dl (6.4-8.2)
[2017-03-25 09:21] LABS: ALK PHOS 204 U/L (45-117)
--- NOTE | 2017-03-25 09:26 | PN ---
Progress Note (short form) - Note Progress Note: pt seen/ examined chart reviewed just came back from ct scan. chronic ill appearance no new issues got 2 units of prbcs yesterday coimadin on hold Vital Signs Temp 98.8 F 03/25/17 06:00 Pulse 102 H 03/25/17 06:00 Resp 20 03/25/17 06:00 BP 111/64 03/25/17 06:00 Pulse Ox 95 03/24/17 09:00 Intake & Output 03/24/17 03/24/17 03/25/17 11:59 23:59 11:59 Intake Total 200 240 840 Balance 200 240 840 Weight 339 lb 8 oz 341 lb 4.8 oz Intake: IV 0 platelets 0 IVPB 200 Oral 200 240 Packed Cells 640 Other: Voiding Method Toilet Toilet Bowel Movement No Weight Measurement Method Standing Scale Chair Scale Active Medications Acetaminophen (Tylenol -) 500 mg PO Q4H PRN PRN Reason: FEVER OR PAIN Last Admin: 03/24/17 23:24 Dose: 500 mg Albuterol Sulfate (Ventolin 0.083% Nebulizer Soln -) 1 amp NEB HS [facility] Last Admin: 03/24/17 21:44 Dose: 1 amp Bupropion HCl (Wellbutrin Xl -) 150 mg PO DAILY [facility] Last Admin: 03/24/17 09:50 Dose: 150 mg Diltiazem HCl (Cardizem Cd -) 300 mg PO DAILY [facility] Last Admin: 03/24/17 09:50 Dose: 300 mg Fentanyl (Duragesic 25mcg Patch -) 1 patch TD Q72H [facility] Last Admin: 03/25/17 04:03 Dose: 1 patch Furosemide (Lasix -) 40 mg PO BID@0600,1400 [facility] Last Admin: 03/25/17 06:22 Dose: 40 mg Guaifenesin (Diabetic Tussin Dm -) 5 ml PO Q6H PRN PRN Reason: COUGH Insulin Aspart (Novolog Vial Sliding Scale -) 1 vial SQ ACHS [facility] PRN Reason: Protocol Last Admin: 03/25/17 06:23 Dose: Not Given Levothyroxine Sodium (Synthroid -) 75 mcg PO DAILY@0700 [facility] Last Admin: 03/25/17 06:22 Dose: 75 mcg Lidocaine (Lidoderm Patch -) 1 patch TP HS [facility] Last Admin: 03/25/17 00:17 Dose: Not Given Miscellaneous (Duragesic Patch Waste) 1 each TD PRN PRN Miscellaneous (Lidoderm Patch Removal) 1 each MC DAILY [facility] Montelukast Sodium (Singulair -) 10 mg PO HS [facility] Last Admin: 03/24/17 22:04 Dose: 10 mg Ondansetron HCl (Zofran Injection) 4 mg IVPB Q8H PRN PRN Reason: NAUSEA Last Admin: 03/23/17 12:30 Dose: 4 mg Polyethylene Glycol (Miralax (For Daily Use) -) 17 gm PO DAILY [facility] Last Admin: 03/24/17 09:51 Dose: Not Given Potassium Chloride (K-Dur -) 20 meq PO BID [facility] Last Admin: 03/24/17 22:03 Dose: 20 meq Senna (Senna -) 2 tab PO HS PRN PRN Reason: CONSTIPATION Tiotropium [place] (Spiriva -) 1 puff IH DAILY [facility] Last Admin: 03/24/17 09:51 Dose: 1 puff Tramadol HCl (Ultram -) 75 mg PO Q6H PRN Last Admin: 03/25/17 04:04 Dose: 75 mg CBC, BMP 03/25/17 08:00 INR, PTT INR 1.32 (0.82-1.09) H 03/24/17 06:00 Physical Examination Constitutional: Yes: weak/ chronic ill appearance. sitting in chair Eyes: Yes: Conjunctiva Clear HENT: Yes: Atraumatic Neck: Yes: Supple, Trachea Midline Cardiovascular: Yes: Pulse Irregular, S1, S2 Respiratory: Yes: diminished at bases Gastrointestinal: Yes: Normal Bowel Sounds, Abdomen, Obese Echymosis + left flank area Neurological: Yes: Alert, Oriented x 3 Psychiatric: Yes: Alert, Oriented Ext-Chronic venous stasis of legs Imaging - Results X-ray: Noted Assessment/Plan Metastatic ovarian ca Thrombocytopenia paroxysmal afib obesity depression continue present care will review ct scan will discuss with Dr. Miller Agree with holding coumadin transfuse platlets today ? will discuss. will follow. Problem List - Problems (1) Thrombocytopenia Code(s): D69.6 - THROMBOCYTOPENIA, UNSPECIFIED (2) A-fib Code(s): I48.91 - UNSPECIFIED ATRIAL FIBRILLATION Qualifiers: (3) Anemia Code(s): D64.9 - ANEMIA, UNSPECIFIED (4) Diabetes Code(s): E11.9 - TYPE 2 DIABETES MELLITUS WITHOUT COMPLICATIONS Qualifiers: Diabetes mellitus type: type 2 Diabetes mellitus complication status: without complication (5) Hypoalbuminemia Code(s): E88.09 - OTH DISORDERS OF PLASMA-PROTEIN METABOLISM, NEC (6) Primary cancer of ovary with widespread metastatic disease Code(s): C56.9 - MALIGNANT NEOPLASM OF UNSPECIFIED OVARY; C80.0 - DISSEMINATED MALIGNANT NEOPLASM, UNSPECIFIED
[2017-03-25] MEDS ORDERED: PT OWN MED DRAWER 7, Y5N ONE (09:34)
[2017-03-25] MEDS: POTASSIUM CHLORIDE TABS 20 MEQ TABLET.ER (FP) PO SCH ×2 (09:42→22:04)
[2017-03-25] MEDS: TIOTROPIUM BROMIDE 18 MCG/INH (DEVICE W/ 5 CAPSULES) IH SCH (09:43)
[2017-03-25] MEDS: POLYETHYLENE GLYCOL 3350 119 GM BTL PO SCH (09:43)
[2017-03-25] MEDS: LIDOCAINE PATCH REMOVAL MC SCH (09:54)
--- NOTE | 2017-03-25 13:40 | PN ---
Progress Note (short form) - Note Progress Note: Patient seen and examined. Feels tired. O/E: Cor: RSR, No murmurs, No gallops Lungs: Clear to P&A Abd: Soft, Normal bowel sounds, No organomegaly Ext:No significant edema Skin: +bruising LE: chronic LE edema Temp Pulse Resp BP Pulse Ox 97.4 F L 94 H 20 120/58 95 03/25/17 09:28 03/25/17 09:56 03/25/17 09:56 03/25/17 09:56 03/24/17 09:00 CBC, BMP 03/25/17 08:00 03/25/17 08:00 Current Medications Generic Name Dose Route Start Last Admin Trade Name Freq PRN Reason Stop Dose Admin Acetaminophen 500 mg 03/22/17 18:38 03/24/17 23:24 Tylenol - PO 500 mg Q4H PRN Administration FEVER OR PAIN Albuterol Sulfate 1 amp 03/22/17 22:00 03/24/17 21:44 Ventolin 0.083% Nebulizer Soln - NEB 1 amp HS [facility] Administration Bupropion HCl 150 mg 03/23/17 10:00 03/25/17 09:42 Wellbutrin Xl - PO 150 mg DAILY [facility] Administration Diltiazem HCl 300 mg 03/23/17 10:00 03/25/17 09:43 Cardizem Cd - PO 300 mg DAILY [facility] Administration Fentanyl 1 patch 03/25/17 00:05 03/25/17 04:03 Duragesic 25mcg Patch - TD 1 patch Q72H [facility] Administration Furosemide 40 mg 03/24/17 14:00 03/25/17 13:25 Lasix - PO 40 mg BID@0600,1400 [facility] Administration Guaifenesin 5 ml 03/23/17 12:11 Diabetic Tussin Dm - PO Q6H PRN COUGH Insulin Aspart 1 vial 03/24/17 18:16 03/25/17 12:25 Novolog Vial Sliding Scale - SQ Not Given ACHS [facility] Protocol Levothyroxine Sodium 75 mcg 03/23/17 07:00 03/25/17 06:22 Synthroid - PO 75 mcg DAILY@0700 [facility] Administration Lidocaine 1 patch 03/25/17 00:15 03/25/17 00:17 Lidoderm Patch - TP Not Given HS [facility] Miscellaneous 1 each 03/25/17 00:05 Duragesic Patch Waste TD PRN PRN Miscellaneous 1 each 03/25/17 10:00 03/25/17 09:54 Lidoderm Patch Removal MC Not Given DAILY [facility] Montelukast Sodium 10 mg 03/22/17 22:00 03/24/17 22:04 Singulair - PO 10 mg HS [facility] Administration Ondansetron HCl 4 mg 03/23/17 12:10 03/23/17 12:30 Zofran Injection IVPB 4 mg Q8H PRN Administration NAUSEA Polyethylene Glycol 17 gm 03/23/17 10:00 03/25/17 09:43 Miralax (For Daily Use) - PO Not Given DAILY [facility] Potassium Chloride 20 meq 03/23/17 10:00 03/25/17 09:42 K-Dur - PO 20 meq BID [facility] Administration Senna 2 tab 03/22/17 18:13 Senna - PO HS PRN CONSTIPATION Tiotropium [place] 1 puff 03/23/17 10:00 03/25/17 09:43 Spiriva - IH 1 puff DAILY [facility] Administration Tramadol HCl 75 mg 03/22/17 18:15 03/25/17 09:54 Ultram - PO 75 mg Q6H PRN Administration 61 y/o patient with metastatic high grade mullerian cancer on gemzar Comes in with thrombocytopenia Transfused monodonor platelets Hold coumadin s/p PRBCs repeat CBC , to assess the need for platelet transfusion CT scans reviewed. to discuss with family and patient. MRI not ordered, will do post discussion. will need MRI/RadOnc too.
[2017-03-25 16:28] LABS: HEMATOCRIT 31.3 % (32.4-45.2); HEMOGLOBIN 10.5 GM/dL (10.7-15.3); MCHC 33.6 g/dl (32.0-36.0); MEAN CELL VOLUME 95.4 fl (80-96); RBC 3.28 M/mm3 (3.60-5.2); RDW 21.8 % (11.6-15.6); WHITE BLOOD COUNT 12.5 K/mm3 (4.0-10.0)
[2017-03-25 16:32] LABS: PLATELET COUNT 35 K/MM3 (134-434)
[2017-03-25 17:45] LABS: ANISOCYTOSIS 2+; MACROCYTOSIS 1+; PLATELET ESTIMATE DECREASED
[2017-03-25] MEDS: ALBUTEROL SO4 0.083% IH SOL 2.5 MG/3 ML VIAL.NEB. NEB SCH (21:37)
[2017-03-25] MEDS: MONTELUKAST NA 10 MG TABLET PO SCH (22:04)
[2017-03-26] MEDS: LEVOTHYROXINE NA 75 MCG TABLET (FP) PO SCH (06:22)
[2017-03-26] MEDS: FUROSEMIDE 40 MG TABLET (FP) PO SCH ×2 (06:22→13:55)
[2017-03-26] MEDS: INSULIN SLIDING SCALE (NOVOLOG) 1 VIAL SQ SCH ×4 (06:22→22:12)
[2017-03-26 07:33] LABS: INR 1.24 (0.82-1.09)
[2017-03-26 08:20] LABS: CALCIUM 8.2 mg/dL (8.5-10.1); CHLORIDE 95 mmol/L (98-107); POTASSIUM 4.5 mmol/L (3.5-5.1); SODIUM 130 mmol/L (136-145)
[2017-03-26] MEDS: traMADol HCL 50 MG TABLET PO PRN ×2 (08:24→17:28)
[2017-03-26 08:27] LABS: ALBUMIN 2.1 g/dl (3.4-5.0); ALK PHOS 197 U/L (45-117); ANION GAP 11 (8-16); BILIRUBIN,TOTAL 1.1 mg/dL (0.2-1.0); BLOOD UREA NITROGEN 10 mg/dL (7-18); CO2 24 mmol/L (21-32); CREATININE 0.8 mg/dL (0.55-1.02); GLUCOSE,RANDOM 132 mg/dL (74-106); SGOT/AST 54 U/L (15-37); SGPT/ALT 32 U/L (12-78); TOT PROT 5.6 g/dl (6.4-8.2)
[2017-03-26] MEDS ORDERED: guaiFENesin 200 MG/10 ML 10 ML UNIT-DOSE CUPS PO PRN (08:52)
--- NOTE | 2017-03-26 08:53 | PN ---
Progress Note (short form) - Note Progress Note: patient seen and examined. Sitting in chair Comfortable No new issues Vital Signs Temp 97.9 F 03/26/17 06:00 Pulse 103 H 03/26/17 06:00 Resp 20 03/26/17 06:00 BP 129/65 03/26/17 06:00 Pulse Ox 97 03/25/17 21:00 Intake & Output 03/25/17 03/25/17 03/26/17 11:59 23:59 11:59 Intake Total 840 0 Balance 840 0 Weight 341 lb 4.8 oz 342 lb 4.8 oz Intake: IV 0 platelets 0 IVPB 200 Packed Cells 640 Other: Voiding Method Toilet Toilet # Unmeasured Voids Void 1 Bowel Movement No Weight Measurement Method Chair Scale Chair Scale Active Medications Acetaminophen (Tylenol -) 500 mg PO Q4H PRN PRN Reason: FEVER OR PAIN Last Admin: 03/24/17 23:24 Dose: 500 mg Albuterol Sulfate (Ventolin 0.083% Nebulizer Soln -) 1 amp NEB HS [facility] Last Admin: 03/25/17 21:37 Dose: 1 amp Bupropion HCl (Wellbutrin Xl -) 150 mg PO DAILY [facility] Last Admin: 03/25/17 09:42 Dose: 150 mg Diltiazem HCl (Cardizem Cd -) 300 mg PO DAILY [facility] Last Admin: 03/25/17 09:43 Dose: 300 mg Fentanyl (Duragesic 25mcg Patch -) 1 patch TD Q72H [facility] Last Admin: 03/25/17 04:03 Dose: 1 patch Furosemide (Lasix -) 40 mg PO BID@0600,1400 [facility] Last Admin: 03/26/17 06:22 Dose: 40 mg Guaifenesin (Diabetic Tussin Dm -) 5 ml PO Q6H PRN PRN Reason: COUGH Guaifenesin (Robitussin -) 10 ml PO Q6H PRN PRN Reason: COUGH Insulin Aspart (Novolog Vial Sliding Scale -) 1 vial SQ ACHS [facility] PRN Reason: Protocol Last Admin: 03/26/17 06:22 Dose: Not Given Levothyroxine Sodium (Synthroid -) 75 mcg PO DAILY@0700 [facility] Last Admin: 03/26/17 06:22 Dose: 75 mcg Lidocaine (Lidoderm Patch -) 1 patch TP HS [facility] Last Admin: 03/25/17 22:04 Dose: Not Given Miscellaneous (Duragesic Patch Waste) 1 each TD PRN PRN Miscellaneous (Lidoderm Patch Removal) 1 each MC DAILY [facility] Last Admin: 03/25/17 09:54 Dose: Not Given Montelukast Sodium (Singulair -) 10 mg PO HS [facility] Last Admin: 03/25/17 22:04 Dose: 10 mg Ondansetron HCl (Zofran Injection) 4 mg IVPB Q8H PRN PRN Reason: NAUSEA Last Admin: 03/23/17 12:30 Dose: 4 mg Polyethylene Glycol (Miralax (For Daily Use) -) 17 gm PO DAILY [facility] Last Admin: 03/25/17 09:43 Dose: Not Given Potassium Chloride (K-Dur -) 20 meq PO BID [facility] Last Admin: 03/25/17 22:04 Dose: 20 meq Senna (Senna -) 2 tab PO HS PRN PRN Reason: CONSTIPATION Tiotropium [place] (Spiriva -) 1 puff IH DAILY [facility] Last Admin: 03/25/17 09:43 Dose: 1 puff Tramadol HCl (Ultram -) 75 mg PO Q6H PRN PRN Reason: PAIN Last Admin: 03/26/17 08:24 Dose: 75 mg CBC, BMP 03/25/17 16:00 03/26/17 06:00 Physical Examination Constitutional: Yes: alert and awake Eyes: Yes: Conjunctiva Clear HENT: Yes: Atraumatic Neck: Yes: Supple, Trachea Midline Cardiovascular: Yes: Pulse Irregular, S1, S2 Respiratory: Yes: diminished at bases Gastrointestinal: Yes: Normal Bowel Sounds, Abdomen, Obese Echymosis + left flank area--decreased Neurological: Yes: Alert, Oriented x 3 Psychiatric: Yes: Alert, Oriented Ext-Chronic venous stasis of legs Imaging - Results X-ray: Noted CT scan reviewed and noted--- progression of disease Assessment/Plan Metastatic ovarian ca Thrombocytopenia paroxysmal afib obesity depression CAT scan shows progression of disease will discuss with Dr. Miller continue present care We will follow. Problem List - Problems (1) Thrombocytopenia Code(s): D69.6 - THROMBOCYTOPENIA, UNSPECIFIED (2) A-fib Code(s): I48.91 - UNSPECIFIED ATRIAL FIBRILLATION Qualifiers: (3) Anemia Code(s): D64.9 - ANEMIA, UNSPECIFIED (4) Diabetes Code(s): E11.9 - TYPE 2 DIABETES MELLITUS WITHOUT COMPLICATIONS Qualifiers: Diabetes mellitus type: type 2 Diabetes mellitus complication status: without complication (5) Hypoalbuminemia Code(s): E88.09 - OTH DISORDERS OF PLASMA-PROTEIN METABOLISM, NEC (6) Primary cancer of ovary with widespread metastatic disease Code(s): C56.9 - MALIGNANT NEOPLASM OF UNSPECIFIED OVARY; C80.0 - DISSEMINATED MALIGNANT NEOPLASM, UNSPECIFIED
[2017-03-26] MEDS: TIOTROPIUM BROMIDE 18 MCG/INH (DEVICE W/ 5 CAPSULES) IH SCH (10:55)
[2017-03-26] MEDS: POTASSIUM CHLORIDE TABS 20 MEQ TABLET.ER (FP) PO SCH ×2 (10:55→22:11)
[2017-03-26] MEDS: POLYETHYLENE GLYCOL 3350 119 GM BTL PO SCH (10:59)
[2017-03-26] MEDS: LIDOCAINE PATCH REMOVAL MC SCH (11:00)
[2017-03-26] MEDS: ONDANSETRON 4 MG/2 ML VIAL IVPB PRN (12:54)
[2017-03-26 13:35] LABS: HEMOGLOBIN 9.7 GM/dL (10.7-15.3); MCH 31.7 pg (25.7-33.7); MCHC 33.5 g/dl (32.0-36.0); MEAN CELL VOLUME 94.7 fl (80-96); MEAN PLT VOLUME 8.2 fl (7.5-11.1); RBC 3.06 M/mm3 (3.60-5.2); RDW 21.1 % (11.6-15.6); WHITE BLOOD COUNT 11.4 K/mm3 (4.0-10.0)
[2017-03-26 13:46] LABS: PLATELET COUNT 23 K/MM3 (134-434)
--- NOTE | 2017-03-26 15:58 | PN ---
Progress Note (short form) - Note Progress Note: Patient seen and examined. Feels tired. O/E: Cor: RSR, No murmurs, No gallops Lungs: Clear to P&A Abd: Soft, Normal bowel sounds, No organomegaly Ext:No significant edema Skin: +bruising LE: chronic LE edema Temp Pulse Resp BP Pulse Ox 97.4 F L 94 H 20 120/58 95 03/25/17 09:28 03/25/17 09:56 03/25/17 09:56 03/25/17 09:56 03/24/17 09:00 CBC, BMP 03/25/17 08:00 03/25/17 08:00 Current Medications Generic Name Dose Route Start Last Admin Trade Name Freq PRN Reason Stop Dose Admin Acetaminophen 500 mg 03/22/17 18:38 03/24/17 23:24 Tylenol - PO 500 mg Q4H PRN Administration FEVER OR PAIN Albuterol Sulfate 1 amp 03/22/17 22:00 03/24/17 21:44 Ventolin 0.083% Nebulizer Soln - NEB 1 amp HS [facility] Administration Bupropion HCl 150 mg 03/23/17 10:00 03/25/17 09:42 Wellbutrin Xl - PO 150 mg DAILY [facility] Administration Diltiazem HCl 300 mg 03/23/17 10:00 03/25/17 09:43 Cardizem Cd - PO 300 mg DAILY [facility] Administration Fentanyl 1 patch 03/25/17 00:05 03/25/17 04:03 Duragesic 25mcg Patch - TD 1 patch Q72H [facility] Administration Furosemide 40 mg 03/24/17 14:00 03/25/17 13:25 Lasix - PO 40 mg BID@0600,1400 [facility] Administration Guaifenesin 5 ml 03/23/17 12:11 Diabetic Tussin Dm - PO Q6H PRN COUGH Insulin Aspart 1 vial 03/24/17 18:16 03/25/17 12:25 Novolog Vial Sliding Scale - SQ Not Given ACHS [facility] Protocol Levothyroxine Sodium 75 mcg 03/23/17 07:00 03/25/17 06:22 Synthroid - PO 75 mcg DAILY@0700 [facility] Administration Lidocaine 1 patch 03/25/17 00:15 03/25/17 00:17 Lidoderm Patch - TP Not Given HS [facility] Miscellaneous 1 each 03/25/17 00:05 Duragesic Patch Waste TD PRN PRN Miscellaneous 1 each 03/25/17 10:00 03/25/17 09:54 Lidoderm Patch Removal MC Not Given DAILY [facility] Montelukast Sodium 10 mg 03/22/17 22:00 03/24/17 22:04 Singulair - PO 10 mg HS [facility] Administration Ondansetron HCl 4 mg 03/23/17 12:10 03/23/17 12:30 Zofran Injection IVPB 4 mg Q8H PRN Administration NAUSEA Polyethylene Glycol 17 gm 03/23/17 10:00 03/25/17 09:43 Miralax (For Daily Use) - PO Not Given DAILY [facility] Potassium Chloride 20 meq 03/23/17 10:00 03/25/17 09:42 K-Dur - PO 20 meq BID [facility] Administration Senna 2 tab 03/22/17 18:13 Senna - PO HS PRN CONSTIPATION Tiotropium [place] 1 puff 03/23/17 10:00 03/25/17 09:43 Spiriva - IH 1 puff DAILY [facility] Administration Tramadol HCl 75 mg 03/22/17 18:15 03/25/17 09:54 Ultram - PO 75 mg Q6H PRN Administration 61 y/o patient with 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 to discuss with family and patient. MRI not ordered, will do post discussion. will need MRI/RadOnc too.
[2017-03-26] MEDS: guaiFENesin/D-M SUGAR-FREE/ACLHOL-FREE 118 ML BOTTLE PO PRN (16:46)
[2017-03-26 20:03] LABS: ANISOCYTOSIS 2+; MACROCYTOSIS 2+; PLATELET ESTIMATE DECREASED
[2017-03-26] MEDS ORDERED: INSULIN (NOVOLOG) ASPART 100 UNITS/ML 10ML VIAL ONE (21:53)
[2017-03-26] MEDS: ALBUTEROL SO4 0.083% IH SOL 2.5 MG/3 ML VIAL.NEB. NEB SCH (22:00)
[2017-03-26] MEDS: DOCUSATE SODIUM 100 MG CAPSULE (FP) PO SCH (22:11)
[2017-03-26] MEDS: LIDOCAINE 5% TOPICAL PATCH TP SCH (22:12)
[2017-03-26] MEDS: MONTELUKAST NA 10 MG TABLET PO SCH (22:12)
[2017-03-26] MEDS: SENNOSIDES 8.6MG TABLET (FP) PO PRN (22:13)
[2017-03-27] MEDS: traMADol HCL 50 MG TABLET PO PRN ×4 (00:01→20:37)
[2017-03-27] MEDS: LEVOTHYROXINE NA 75 MCG TABLET (FP) PO SCH (05:59)
[2017-03-27] MEDS: FUROSEMIDE 40 MG TABLET (FP) PO SCH ×2 (05:59→14:43)
[2017-03-27] MEDS: DOCUSATE SODIUM 100 MG CAPSULE (FP) PO SCH ×3 (05:59→21:07)
[2017-03-27] MEDS: INSULIN SLIDING SCALE (NOVOLOG) 1 VIAL SQ SCH ×4 (06:01→21:08)
[2017-03-27 07:02] LABS: HEMATOCRIT 27.7 % (32.4-45.2); HEMOGLOBIN 9.5 GM/dL (10.7-15.3); MCHC 34.3 g/dl (32.0-36.0); MEAN CELL VOLUME 96.2 fl (80-96); MEAN PLT VOLUME 8.7 fl (7.5-11.1); PLATELET COUNT 42 K/MM3 (134-434); RBC 2.88 M/mm3 (3.60-5.2); RDW 21.2 % (11.6-15.6)
[2017-03-27 07:19] LABS: INR 1.2 (0.82-1.09); PROTHROMBIN TIME (PATIENT) 13.6 SEC (9.98-11.88)
[2017-03-27 08:02] LABS: ALK PHOS 200 U/L (45-117); BLOOD UREA NITROGEN 11 mg/dL (7-18); CALCIUM 7.9 mg/dL (8.5-10.1); CO2 26 mmol/L (21-32); CREATININE 0.8 mg/dL (0.55-1.02); GLUCOSE,RANDOM 149 mg/dL (74-106); SGOT/AST 56 U/L (15-37); SGPT/ALT 34 U/L (12-78); TOT PROT 5.5 g/dl (6.4-8.2)
--- NOTE | 2017-03-27 08:19 | PN ---
Progress Note (short form) - Note Progress Note: patient seen and examined. Sitting in chair. Comfortable. No new issues. oncology f/u noted. Vital Signs Temp 98 F 03/27/17 06:00 Pulse 106 H 03/27/17 06:00 Resp 18 03/27/17 06:00 BP 122/58 03/27/17 06:00 Pulse Ox 97 03/26/17 21:00 Intake & Output 03/26/17 03/26/17 03/27/17 11:59 23:59 11:59 Intake Total 207 Balance 207 Weight 342 lb 4.8 oz 342 lb 4.8 oz Intake: Platelets 207 Other: Voiding Method Toilet Toilet # Unmeasured Voids Void 1 1 Bowel Movement No # Bowel Movements 1 Weight Measurement Method Chair Scale Chair Scale Active Medications Acetaminophen (Tylenol -) 500 mg PO Q4H PRN PRN Reason: FEVER OR PAIN Last Admin: 03/24/17 23:24 Dose: 500 mg Albuterol Sulfate (Ventolin 0.083% Nebulizer Soln -) 1 amp NEB HS [facility] Last Admin: 03/26/17 22:00 Dose: 1 amp Bupropion HCl (Wellbutrin Xl -) 150 mg PO DAILY [facility] Last Admin: 03/26/17 10:55 Dose: 150 mg Diltiazem HCl (Cardizem Cd -) 300 mg PO DAILY [facility] Last Admin: 03/26/17 10:55 Dose: 300 mg Docusate Sodium (Colace -) 100 mg PO TID [facility] Last Admin: 03/27/17 05:59 Dose: 100 mg Fentanyl (Duragesic 25mcg Patch -) 1 patch TD Q72H [facility] Last Admin: 03/25/17 04:03 Dose: 1 patch Furosemide (Lasix -) 40 mg PO BID@0600,1400 [facility] Last Admin: 03/27/17 05:59 Dose: 40 mg Guaifenesin (Diabetic Tussin Dm -) 5 ml PO Q6H PRN PRN Reason: COUGH Last Admin: 03/26/17 16:46 Dose: 5 ml Insulin Aspart (Novolog Vial Sliding Scale -) 1 vial SQ ACHS [facility] PRN Reason: Protocol Last Admin: 03/27/17 06:01 Dose: Not Given Levothyroxine Sodium (Synthroid -) 75 mcg PO DAILY@0700 [facility] Last Admin: 03/27/17 05:59 Dose: 75 mcg Lidocaine (Lidoderm Patch -) 1 patch TP HS [facility] Last Admin: 03/26/17 22:12 Dose: Not Given Miscellaneous (Duragesic Patch Waste) 1 each TD PRN PRN Miscellaneous (Lidoderm Patch Removal) 1 each MC DAILY [facility] Last Admin: 03/26/17 11:00 Dose: Not Given Montelukast Sodium (Singulair -) 10 mg PO HS [facility] Last Admin: 03/26/17 22:12 Dose: 10 mg Ondansetron HCl (Zofran Injection) 4 mg IVPB Q8H PRN PRN Reason: NAUSEA Last Admin: 03/26/17 12:54 Dose: 4 mg Polyethylene Glycol (Miralax (For Daily Use) -) 17 gm PO DAILY [facility] Last Admin: 03/26/17 10:59 Dose: 17 grams Potassium Chloride (K-Dur -) 20 meq PO BID [facility] Last Admin: 03/26/17 22:11 Dose: 20 meq Senna (Senna -) 2 tab PO HS PRN PRN Reason: CONSTIPATION Last Admin: 03/26/17 22:13 Dose: 2 tab Tiotropium [place] (Spiriva -) 1 puff IH DAILY [facility] Last Admin: 03/26/17 10:55 Dose: 1 puff Tramadol HCl (Ultram -) 75 mg PO Q6H PRN PRN Reason: PAIN Last Admin: 03/27/17 05:59 Dose: 75 mg CBC, BMP 03/27/17 06:00 cmp - pending. Physical Examination Constitutional: Yes: alert and awake. Eyes: Yes: Conjunctiva Clear HENT: Yes: Atraumatic Neck: Yes: Supple, Trachea Midline Cardiovascular: Yes: Pulse Irregular, S1, S2 Respiratory: Yes: diminished at bases Gastrointestinal: Yes: Normal Bowel Sounds, Abdomen, Obese. Neurological: Yes: Alert, Oriented x 3 Psychiatric: Yes: Alert, Oriented Ext-Chronic venous stasis of legs Imaging - Results X-ray: Noted CT scan reviewed and noted--- progression of disease Assessment/Plan Metastatic ovarian ca Thrombocytopenia paroxysmal afib obesity depression CAT scan shows progression of disease Dr. Mliler to discuss with pt continue present care. will follow. Problem List - Problems (1) Thrombocytopenia Code(s): D69.6 - THROMBOCYTOPENIA, UNSPECIFIED (2) A-fib Code(s): I48.91 - UNSPECIFIED ATRIAL FIBRILLATION Qualifiers: (3) Anemia Code(s): D64.9 - ANEMIA, UNSPECIFIED (4) Diabetes Code(s): E11.9 - TYPE 2 DIABETES MELLITUS WITHOUT COMPLICATIONS Qualifiers: Diabetes mellitus type: type 2 Diabetes mellitus complication status: without complication (5) Hypoalbuminemia Code(s): E88.09 - OTH DISORDERS OF PLASMA-PROTEIN METABOLISM, NEC (6) Primary cancer of ovary with widespread metastatic disease Code(s): C56.9 - MALIGNANT NEOPLASM OF UNSPECIFIED OVARY; C80.0 - DISSEMINATED MALIGNANT NEOPLASM, UNSPECIFIED
--- NOTE | 2017-03-27 09:41 | PN ---
Progress Note (short form) - Note Progress Note: Patient seen and examined Has some cough/SOB/nack pain Last Vital Signs Temp Pulse Resp BP Pulse Ox 97.6 F 88 18 101/58 100 03/27/17 20:48 03/27/17 20:48 03/27/17 20:49 03/27/17 20:48 03/27/17 20:49 Cor: RSR, No murmurs, No gallops Lungs: Clear to P&A Abd: Soft, Normal bowel sounds, No organomegaly Ext:No significant edema Abnormal Lab Results 03/22/17 03/27/17 03/27/17 13:50 06:00 06:00 RBC 2.88 L Hgb 9.5 L Hct 27.7 L MCV 96.2 H RDW 21.2 H Plt Count 42 L D Nucleated RBC % 1 H PT with INR 13.60 H INR 1.20 H Sodium Chloride Random Glucose Calcium AST Alkaline Phosphatase Total Protein Albumin Crossmatch See Detail 03/27/17 06:00 RBC Hgb Hct MCV RDW Plt Count Nucleated RBC % PT with INR INR Sodium 130 L Chloride 96 L Random Glucose 149 H Calcium 7.9 L AST 56 H Alkaline Phosphatase 200 H Total Protein 5.5 L Albumin 2.0 L Crossmatch Active Medications Generic Name Dose Route Start Last Admin Trade Name Freq PRN Reason Stop Dose Admin Acetaminophen 500 mg 03/22/17 18:38 03/24/17 23:24 Tylenol - PO 500 mg Q4H PRN Administration FEVER OR PAIN Bupropion HCl 150 mg 03/23/17 10:00 03/27/17 11:23 Wellbutrin Xl - PO 150 mg DAILY [facility] Administration Diltiazem HCl 300 mg 03/23/17 10:00 03/27/17 11:22 Cardizem Cd - PO 300 mg DAILY [facility] Administration Docusate Sodium 100 mg 03/26/17 22:00 03/27/17 21:07 Colace - PO 100 mg TID [facility] Administration Fentanyl 1 patch 03/25/17 00:05 03/25/17 04:03 Duragesic 25mcg Patch - TD 1 patch Q72H [facility] Administration Furosemide 40 mg 03/24/17 14:00 03/27/17 14:43 Lasix - PO 40 mg BID@0600,1400 [facility] Administration Guaifenesin 5 ml 03/23/17 12:11 03/26/17 16:46 Diabetic Tussin Dm - PO 5 ml Q6H PRN Administration COUGH Insulin Aspart 1 vial 03/24/17 18:16 03/27/17 21:08 Novolog Vial Sliding Scale - SQ Not Given ACHS [facility] Protocol Levothyroxine Sodium 75 mcg 03/23/17 07:00 03/27/17 05:59 Synthroid - PO 75 mcg DAILY@0700 [facility] Administration Lidocaine 1 patch 03/25/17 00:15 03/27/17 21:07 Lidoderm Patch - TP Not Given HS [facility] Miscellaneous 1 each 03/25/17 00:05 Duragesic Patch Waste TD PRN PRN Miscellaneous 1 each 03/25/17 10:00 03/27/17 11:27 Lidoderm Patch Removal MC Not Given DAILY [facility] Montelukast Sodium 10 mg 03/22/17 22:00 03/27/17 21:07 Singulair - PO 10 mg HS [facility] Administration Ondansetron HCl 4 mg 03/23/17 12:10 03/26/17 12:54 Zofran Injection IVPB 4 mg Q8H PRN Administration NAUSEA Polyethylene Glycol 17 gm 03/23/17 10:00 03/27/17 14:43 Miralax (For Daily Use) - PO 17 grams DAILY [facility] Administration Potassium Chloride 20 meq 03/23/17 10:00 03/27/17 21:07 K-Dur - PO 20 meq BID [facility] Administration Senna 2 tab 03/22/17 18:13 03/26/17 22:13 Senna - PO 2 tab HS PRN Administration CONSTIPATION Tiotropium [place] 1 puff 03/23/17 10:00 03/27/17 11:21 Spiriva - IH 1 puff DAILY [facility] Administration Tramadol HCl 75 mg 03/25/17 22:49 03/27/17 20:37 Ultram - PO 75 mg Q6H PRN Administration PAIN A/P 61 y/o patient with metastatic high grade mullerian cancer on gemzar Comes in with thrombocytopenia Transfused monodonor platelets Hold coumadin Transfused PRBCs CT scans show progressive diseasse New T10 met/epidural disease rad-onc consult pain control await platelets to recover discussed with daughters/patieent palliative care consult
[2017-03-27 09:58] LABS: ANION GAP 8 (8-16); CHLORIDE 96 mmol/L (98-107); POTASSIUM 4.4 mmol/L (3.5-5.1); SODIUM 130 mmol/L (136-145)
[2017-03-27 10:31] LABS: PLATELET ESTIMATE MARKEDLY DECREASED
[2017-03-27] MEDS ORDERED: PT OWN MED DRAWER 7, Y5N ONE (10:52)
[2017-03-27] MEDS: TIOTROPIUM BROMIDE 18 MCG/INH (DEVICE W/ 5 CAPSULES) IH SCH (11:21)
[2017-03-27] MEDS: POTASSIUM CHLORIDE TABS 20 MEQ TABLET.ER (FP) PO SCH ×2 (11:22→21:07)
[2017-03-27] MEDS: LIDOCAINE PATCH REMOVAL MC SCH (11:27)
[2017-03-27] MEDS ORDERED: INSULIN (NOVOLOG) ASPART 100 UNITS/ML 10ML VIAL ONE (13:52)
[2017-03-27] MEDS: POLYETHYLENE GLYCOL 3350 119 GM BTL PO SCH (14:43)
--- NOTE | 2017-03-27 20:37 | PN ---
Progress Note (short form) - Note Progress Note: Radiation Oncology Pt seen, chart/films reviewed, full consult to follow. 61 yo with high grade adenocarcinoma mullerian origin initially with mets to lung and liver and now progression on chemotherapy with new bone mets involving T10 vertebra associated with epidural soft tissue and rib. CT scans from Jan and Mar were reviewed with Dr. Hernandez. New destructive mass at left T10 involving rib and there is likely tumor in the canal but cannot rule out cord impingement without MRI. Pt unable to lay flat secondary to pain. Radiation therapy is indicated to reduce risk of further neurologic compromise/cord compression and pathologic fracture but she must be able to lay flat for at least 20 min for the simulation and then 10 min daily for treatments. Additionally would not advise RT until plt count improves to 50-70k range due to RT-induced cytopenia. RT risks, benefits and alternatives (?neurosurgery) discussed with pt. Would optimize pain control, consider pain consult and MRI, plt transfusion. Will d/w med onc.
[2017-03-27] MEDS: LIDOCAINE 5% TOPICAL PATCH TP SCH (21:07)
[2017-03-27] MEDS: MONTELUKAST NA 10 MG TABLET PO SCH (21:07)
[2017-03-28] MEDS: fentaNYL 25mcg/hr PATCH.TD72 TD SCH (00:27)
[2017-03-28] MEDS: traMADol HCL 50 MG TABLET PO PRN ×3 (05:41→23:16)
[2017-03-28] MEDS: DOCUSATE SODIUM 100 MG CAPSULE (FP) PO SCH ×3 (05:50→21:14)
[2017-03-28] MEDS: LEVOTHYROXINE NA 75 MCG TABLET (FP) PO SCH (06:05)
[2017-03-28] MEDS: FUROSEMIDE 40 MG TABLET (FP) PO SCH ×2 (06:05→15:55)
[2017-03-28] MEDS: INSULIN SLIDING SCALE (NOVOLOG) 1 VIAL SQ SCH ×4 (06:05→22:32)
--- NOTE | 2017-03-28 09:29 | PN ---
Progress Note (short form) - Note Progress Note: Patient seen and examined Has some cough/SOB/back pain Last Vital Signs Temp Pulse Resp BP Pulse Ox 97.7 F 114 H 18 108/68 100 03/28/17 06:00 03/28/17 06:00 03/28/17 06:00 03/28/17 06:00 03/27/17 20:49 Cor: RSR, No murmurs, No gallops Lungs: Clear to P&A Abd: Soft, Normal bowel sounds, No organomegaly Ext:No significant edema Abnormal Lab Results 03/22/17 13:50 Crossmatch See Detail Active Medications Generic Name Dose Route Start Last Admin Trade Name Freq PRN Reason Stop Dose Admin Acetaminophen 500 mg 03/22/17 18:38 03/24/17 23:24 Tylenol - PO 500 mg Q4H PRN Administration FEVER OR PAIN Bupropion HCl 150 mg 03/23/17 10:00 03/27/17 11:23 Wellbutrin Xl - PO 150 mg DAILY [facility] Administration Diltiazem HCl 300 mg 03/23/17 10:00 03/27/17 11:22 Cardizem Cd - PO 300 mg DAILY [facility] Administration Docusate Sodium 100 mg 03/26/17 22:00 03/28/17 05:50 Colace - PO 100 mg TID [facility] Administration Fentanyl 1 patch 03/25/17 00:05 03/28/17 00:27 Duragesic 25mcg Patch - TD 1 patch Q72H [facility] Administration Furosemide 40 mg 03/24/17 14:00 03/28/17 06:05 Lasix - PO 40 mg BID@0600,1400 [facility] Administration Guaifenesin 5 ml 03/23/17 12:11 03/26/17 16:46 Diabetic Tussin Dm - PO 5 ml Q6H PRN Administration COUGH Insulin Aspart 1 vial 03/24/17 18:16 03/28/17 06:05 Novolog Vial Sliding Scale - SQ Not Given ACHS [facility] Protocol Levothyroxine Sodium 75 mcg 03/23/17 07:00 03/28/17 06:05 Synthroid - PO 75 mcg DAILY@0700 [facility] Administration Lidocaine 1 patch 03/25/17 00:15 03/27/17 21:07 Lidoderm Patch - TP Not Given HS [facility] Miscellaneous 1 each 03/25/17 00:05 Duragesic Patch Waste TD PRN PRN Miscellaneous 1 each 03/25/17 10:00 03/27/17 11:27 Lidoderm Patch Removal MC Not Given DAILY [facility] Montelukast Sodium 10 mg 03/22/17 22:00 03/27/17 21:07 Singulair - PO 10 mg HS [facility] Administration Ondansetron HCl 4 mg 03/23/17 12:10 03/26/17 12:54 Zofran Injection IVPB 4 mg Q8H PRN Administration NAUSEA Polyethylene Glycol 17 gm 03/23/17 10:00 03/27/17 14:43 Miralax (For Daily Use) - PO 17 grams DAILY [facility] Administration Potassium Chloride 20 meq 03/23/17 10:00 03/27/17 21:07 K-Dur - PO 20 meq BID [facility] Administration Senna 2 tab 03/22/17 18:13 03/26/17 22:13 Senna - PO 2 tab HS PRN Administration CONSTIPATION Tiotropium [place] 1 puff 03/23/17 10:00 03/27/17 11:21 Spiriva - IH 1 puff DAILY [facility] Administration Tramadol HCl 75 mg 03/25/17 22:49 03/28/17 05:41 Ultram - PO 75 mg Q6H PRN Administration PAIN A/P 61 y/o patient with metastatic high grade mullerian cancer on gemzar Comes in with thrombocytopenia Transfused monodonor platelets Holding coumadin Transfused PRBCs CT scans show progressive diseasse New T10 met/epidural disease rad-onc consult pain control await platelets to recover to start RT gentle hydration renal consult discussed with daughters/patieent palliative care consult
[2017-03-28 10:59] LABS: HEMATOCRIT 28.3 % (32.4-45.2); HEMOGLOBIN 9.6 GM/dL (10.7-15.3); MEAN CELL VOLUME 97.1 fl (80-96); MEAN PLT VOLUME 8.5 fl (7.5-11.1); PLATELET COUNT 43 K/MM3 (134-434); RBC 2.91 M/mm3 (3.60-5.2); RDW 21.3 % (11.6-15.6); WHITE BLOOD COUNT 9.1 K/mm3 (4.0-10.0)
[2017-03-28 11:07] LABS: ADD RBC MORPHOLOGY YES
[2017-03-28 11:20] LABS: ALK PHOS 203 U/L (45-117); ANION GAP 8 (8-16); BILIRUBIN,TOTAL 1.1 mg/dL (0.2-1.0); BLOOD UREA NITROGEN 13 mg/dL (7-18); CALCIUM 8.2 mg/dL (8.5-10.1); CHLORIDE 94 mmol/L (98-107); CO2 27 mmol/L (21-32); CREATININE 0.9 mg/dL (0.55-1.02); GLUCOSE,RANDOM 190 mg/dL (74-106); POTASSIUM 4.1 mmol/L (3.5-5.1); SGOT/AST 60 U/L (15-37); SGPT/ALT 34 U/L (12-78); SODIUM 129 mmol/L (136-145); TOT PROT 5.7 g/dl (6.4-8.2)
[2017-03-28 11:38] LABS: INR 1.24 (0.82-1.09)
[2017-03-28] MEDS ORDERED: PT OWN MED DRAWER 7, Y5N ONE (12:01)
[2017-03-28] MEDS: TIOTROPIUM BROMIDE 18 MCG/INH (DEVICE W/ 5 CAPSULES) IH SCH (12:06)
[2017-03-28] MEDS: LIDOCAINE PATCH REMOVAL MC SCH (12:07)
[2017-03-28] MEDS: POLYETHYLENE GLYCOL 3350 119 GM BTL PO SCH ×2 (12:07→16:48)
[2017-03-28] MEDS: POTASSIUM CHLORIDE TABS 20 MEQ TABLET.ER (FP) PO SCH ×2 (12:08→21:14)
[2017-03-28 14:12] LABS: ANISOCYTOSIS 3+; MACROCYTOSIS 1+; TEAR DROP CELLS 1+
[2017-03-28 14:19] LABS: PLATELET ESTIMATE DECREASED
--- NOTE | 2017-03-28 17:25 | PN ---
Progress Note (short form) - Note Progress Note: patient seen and examined. Sitting in chair. daughter at bedside No new issues. oncology/ rt f/u noted.-- discussed with today also RT planned. Vital Signs Temp 97.3 F L 03/28/17 14:31 Pulse 101 H 03/28/17 14:31 Resp 20 03/28/17 14:31 BP 129/84 03/28/17 14:31 Pulse Ox 100 03/28/17 10:53 Intake & Output 03/27/17 03/28/17 03/28/17 23:59 11:59 23:59 Intake Total 150 200 Balance 150 200 Weight 337 lb 0.9 oz Intake: IV 0 platelets 0 IVPB 0 Oral 150 200 Other: Voiding Method Toilet Toilet Bowel Movement Yes: 1 No Weight Measurement Method Standing Scale Active Medications Acetaminophen (Tylenol -) 500 mg PO Q4H PRN PRN Reason: FEVER OR PAIN Last Admin: 03/24/17 23:24 Dose: 500 mg Bupropion HCl (Wellbutrin Xl -) 150 mg PO DAILY [facility] Last Admin: 03/28/17 12:09 Dose: 150 mg Diltiazem HCl (Cardizem Cd -) 300 mg PO DAILY [facility] Last Admin: 03/28/17 12:08 Dose: 300 mg Docusate Sodium (Colace -) 100 mg PO TID [facility] Last Admin: 03/28/17 15:57 Dose: 100 mg Fentanyl (Duragesic 25mcg Patch -) 1 patch TD Q72H [facility] Last Admin: 03/28/17 00:27 Dose: 1 patch Furosemide (Lasix -) 40 mg PO BID@0600,1400 [facility] Last Admin: 03/28/17 15:55 Dose: Not Given Guaifenesin (Diabetic Tussin Dm -) 5 ml PO Q6H PRN PRN Reason: COUGH Last Admin: 03/26/17 16:46 Dose: 5 ml Insulin Aspart (Novolog Vial Sliding Scale -) 1 vial SQ ACHS [facility] PRN Reason: Protocol Last Admin: 03/28/17 16:01 Dose: Not Given Levothyroxine Sodium (Synthroid -) 75 mcg PO DAILY@0700 [facility] Last Admin: 03/28/17 06:05 Dose: 75 mcg Lidocaine (Lidoderm Patch -) 1 patch TP HS [facility] Last Admin: 03/27/17 21:07 Dose: Not Given Miscellaneous (Duragesic Patch Waste) 1 each TD PRN PRN Miscellaneous (Lidoderm Patch Removal) 1 each MC DAILY [facility] Last Admin: 03/28/17 12:07 Dose: Not Given Montelukast Sodium (Singulair -) 10 mg PO HS [facility] Last Admin: 03/27/17 21:07 Dose: 10 mg Ondansetron HCl (Zofran Injection) 4 mg IVPB Q8H PRN PRN Reason: NAUSEA Last Admin: 03/26/17 12:54 Dose: 4 mg Polyethylene Glycol (Miralax (For Daily Use) -) 17 gm PO DAILY [facility] Last Admin: 03/28/17 16:48 Dose: Not Given Potassium Chloride (K-Dur -) 20 meq PO BID [facility] Last Admin: 03/28/17 12:08 Dose: 20 meq Senna (Senna -) 2 tab PO HS PRN PRN Reason: CONSTIPATION Last Admin: 03/26/17 22:13 Dose: 2 tab Tiotropium [place] (Spiriva -) 1 puff IH DAILY [facility] Last Admin: 03/28/17 12:06 Dose: 1 puff Tramadol HCl (Ultram -) 75 mg PO Q6H PRN PRN Reason: PAIN Last Admin: 03/28/17 16:50 Dose: 75 mg CBC, BMP 03/28/17 09:46 03/28/17 09:46 Physical Examination Constitutional: Yes: alert and awake. Eyes: Yes: Conjunctiva Clear HENT: Yes: Atraumatic Neck: Yes: Supple, Trachea Midline Cardiovascular: Yes: Pulse Irregular, S1, S2 Respiratory: Yes: diminished at bases Gastrointestinal: Yes: Normal Bowel Sounds, Abdomen, Obese. Neurological: Yes: Alert, Oriented x 3 Psychiatric: Yes: Alert, Oriented Ext-Chronic venous stasis of legs Imaging - Results X-ray: Noted CT scan reviewed and noted--- progression of disease Assessment/Plan Metastatic ovarian ca-- worsening . Thrombocytopenia paroxysmal afib obesity depression discussed with pt. RT planned continue present care. discussed with pts daughter also. Problem List - Problems (1) Thrombocytopenia Code(s): D69.6 - THROMBOCYTOPENIA, UNSPECIFIED (2) A-fib Code(s): I48.91 - UNSPECIFIED ATRIAL FIBRILLATION Qualifiers: (3) Anemia Code(s): D64.9 - ANEMIA, UNSPECIFIED (4) Diabetes Code(s): E11.9 - TYPE 2 DIABETES MELLITUS WITHOUT COMPLICATIONS Qualifiers: Diabetes mellitus type: type 2 Diabetes mellitus complication status: without complication (5) Hypoalbuminemia Code(s): E88.09 - OTH DISORDERS OF PLASMA-PROTEIN METABOLISM, NEC (6) Primary cancer of ovary with widespread metastatic disease Code(s): C56.9 - MALIGNANT NEOPLASM OF UNSPECIFIED OVARY; C80.0 - DISSEMINATED MALIGNANT NEOPLASM, UNSPECIFIED
--- NOTE | 2017-03-28 18:03 | CONS ---
DATE OF CONSULTATION: 03/27/2017 REFERRING PHYSICIAN: Angela Starkey MD REASON FOR CONSULTATION: T10 epidural tumor. HISTORY OF PRESENT ILLNESS: The patient is a 61-year-old woman who was diagnosed with a high-grade adenocarcinoma of Mullerian origin in 2017 with biopsy-proven metastases to the lung and liver, who progressed on carboplatin and Taxol and most recently has been treated with Gemzar about 1 week ago. She is admitted for transfusion due to thrombocytopenia. On admission, she reported a recent fall with left lower extremity weakness and persistent left flank pain. She indicates that the pain began 1 month ago and has progressively increased. There is no radiation to the lower extremities, numbness, tingling, or bowel or bladder habit changes. She has no history of radiation therapy or collagen vascular disease. Restaging CT chest, abdomen, and pelvis performed on March 25, 2017, shows progression of metastatic disease in the lung and liver, as well as increased peritoneal carcinomatosis and progression of osseous metastases with likely epidural invasion at T10. We are asked to evaluate for potential role for radiation therapy. PAST MEDICAL HISTORY: Morbid obesity, lower extremity lymphedema, atrial fibrillation on anticoagulation, MRSA of the right foot, diabetes mellitus, hypertension, COPD on home oxygen, GERD, anxiety, pancytopenia, congestive heart failure, hypothyroidism. PAST SURGICAL HISTORY: Mediport placement, left thoracentesis status post chest tube. ALLERGIES: HYDROMORPHONE, OXYCODONE caused pruritus. CURRENT MEDICATIONS: Duragesic patch, Lidoderm patch, Wellbutrin, Spiriva, MiraLAX, Colace, Cardizem, Senokot, insulin sliding scale, Singulair, Lasix, tramadol, potassium chloride, Synthroid. SOCIAL HISTORY: She lives with her daughter. She does not smoke or consume alcohol. She does not work. FAMILY HISTORY: Denies malignancy. REVIEW OF SYSTEMS: Chemotherapy-associated nausea, anorexia, left mid-back pain. PHYSICAL EXAMINATION: General: Obese in no acute distress. Vital Signs: Temperature 97.4, blood pressure 113/61, pulse 91, respiratory rate 18, SaO2 of 97% room air. Height 5 feet 2 inches. Weight 340 pounds. HEENT: Chemotherapy-associated alopecia, otherwise normocephalic, atraumatic. Moist mucous membranes. Anicteric sclerae. Oral cavity clear without thrush or mucositis. Neck: Thick. No thyromegaly or palpable adenopathy. Chest: Decreased breath sounds bilaterally. Basilar crackles, left greater than right. Mediport in place. Healed chest tube site. No axillary adenopathy. Cardiovascular: Irregular. Abdomen: Obese, nontender. Extremities: 3+ bilateral lower extremity edema, left greater than right. Chronic stasis skin changes with scaly, dry skin. No calf tenderness. Musculoskeletal: Point tenderness at T10 left paraspinal region. Neurologic: Alert and oriented. Cranial nerves 2-12 are intact. Sensation to light touch is intact. Motor 4+/5 in all 4 extremities. No pronator drift. Bariatric Surgeon strength is equal bilaterally. Coordination is normal. Gait was not tested due to unsteadiness. RADIOLOGIC DATA: CT chest, abdomen, and pelvis March 25, 2017, reviewed with the radiologist Dr. Hernandez, demonstrates interval metastatic involvement of the left T10 vertebra since January and epidural soft tissue in the ventral spinal canal. Spinal cord impingement/compression cannot be ruled out without an MRI. There is also progressive disease in the abdomen, possible ascites, progressive disease in the liver and chest. PATHOLOGIC DATA: See HPI. LABORATORY DATA: Sodium 130, potassium 4.4, BUN 11, creatinine 0.8, calcium 7.9 , AST 56, total bilirubin 1.0, ALT 34, alkaline phosphatase 200, albumin 2.0. WBC 10, hemoglobin 9.5, platelets 42,000 status post platelet transfusion. IMPRESSION: A 61-year-old woman with progression of metastatic adenocarcinoma of Mullerian origin involving lung, liver, peritoneal carcinomatosis, and now spine at the T10 level associated with epidural soft tissue tumor in the canal. Spinal cord compression cannot be ruled out, although clinically, she is intact without neurologic deficit with the exception of pain. She is unable to tolerate the MRI due to inability to lie flat secondary to pain. She also has severe thrombocytopenia secondary to recent chemotherapy and has responded to a transfusion. I advise radiation therapy which will reduce the risk of further neurologic compromise and cord compression as well as pathologic fracture and potentially improve her pain control. She states that she cannot lie flat for more than 10 minutes. She also has shortness of breath that may limit her ability to lie supine for prolonged periods. Radiation therapy will require at least a 20-minute simulation, followed by 10 daily 10 minute sessions. I discussed the risks, benefits, and alternatives (she does not appear to be a likely neurosurgical candidate) with the patient. She may become a candidate for radiation therapy if she is able to lie flat for the treatments and her platelet count improves to the 50 ,000 to 70,000 range. I would optimize her pain control, consider pain consult and MRI to rule out impending cord compression as well as a platelet transfusion if her counts do not improve. I will further discuss the plan with her medical oncologist. The patient was given an opportunity to ask questions which were answered to her satisfaction. I will continue to follow the patient while she is admitted. Thank you for asking me to see her. STEPH QUINTERO M.D. [id number] MTDD
[2017-03-28] MEDS: SODIUM CHLORIDE 1,000 ML IV SCH (19:06)
[2017-03-28] MEDS: LIDOCAINE 5% TOPICAL PATCH TP SCH (21:14)
[2017-03-28] MEDS: MONTELUKAST NA 10 MG TABLET PO SCH (21:14)
[2017-03-28] MEDS: SENNOSIDES 8.6MG TABLET (FP) PO PRN (21:38)
[2017-03-29] MEDS: ALBUTEROL SO4 0.083% IH SOL 2.5 MG/3 ML VIAL.NEB. NEB SCH ×2 (00:10→21:52)
[2017-03-29] MEDS: LEVOTHYROXINE NA 75 MCG TABLET (FP) PO SCH (06:21)
[2017-03-29] MEDS: DOCUSATE SODIUM 100 MG CAPSULE (FP) PO SCH ×3 (06:21→21:14)
[2017-03-29] MEDS: FUROSEMIDE 40 MG TABLET (FP) PO SCH (06:21)
[2017-03-29] MEDS: INSULIN SLIDING SCALE (NOVOLOG) 1 VIAL SQ SCH ×4 (06:28→21:16)
[2017-03-29 08:16] LABS: HEMATOCRIT 28.5 % (32.4-45.2); HEMOGLOBIN 9.7 GM/dL (10.7-15.3); MCH 33.2 pg (25.7-33.7); MCHC 34.1 g/dl (32.0-36.0); MEAN CELL VOLUME 97.4 fl (80-96); MEAN PLT VOLUME 8.9 fl (7.5-11.1); PLATELET COUNT 49 K/MM3 (134-434); RBC 2.93 M/mm3 (3.60-5.2); WHITE BLOOD COUNT 10.7 K/mm3 (4.0-10.0)
[2017-03-29 08:20] LABS: ADD RBC MORPHOLOGY YES
[2017-03-29 08:26] LABS: INR 1.17 (0.82-1.09); PROTHROMBIN TIME (PATIENT) 13.2 SEC (9.98-11.88)
[2017-03-29 09:03] LABS: ANION GAP 10 (8-16); BILIRUBIN,TOTAL 0.9 mg/dL (0.2-1.0); BLOOD UREA NITROGEN 13 mg/dL (7-18); CALCIUM 8.1 mg/dL (8.5-10.1); CHLORIDE 94 mmol/L (98-107); CO2 26 mmol/L (21-32); CREATININE 0.8 mg/dL (0.55-1.02); GLUCOSE,RANDOM 143 mg/dL (74-106); POTASSIUM 4.4 mmol/L (3.5-5.1); SGOT/AST 63 U/L (15-37); SGPT/ALT 34 U/L (12-78); SODIUM 130 mmol/L (136-145); TOT PROT 5.7 g/dl (6.4-8.2)
[2017-03-29 09:11] LABS: ALK PHOS 204 U/L (45-117); URIC ACID 9.6 mg/dL (2.6-7.2)
[2017-03-29 09:33] LABS: ANISOCYTOSIS 2+; PLATELET ESTIMATE DECREASED
[2017-03-29 09:42] VITALS: BMI 62.1
--- NOTE | 2017-03-29 09:42 | CON.NEP ---
Consult Consult Specialty:: Nephrology Referred by:: Dr. Miller Reason for Consultation:: Hyponatremia - History of Present Illness Chief Complaint: Low Platelet Count History of Present Illness: This is a 61 year old woman with PMhx of Metastatic Ovarian Ca (lung, Liver) on Chemo, Hypertension, DM Type 2, Chronic Lymphedema, Obesity presented with thrombocytopenia and found to have hyponatremia. S/p Last chemo 2 weeks ago. + Nausea but no vomiting. No diarrhea. Uses lasix at home. Pt denies excessive water intake. Pt actually has poor oral intake of solutes and water. No confusion, lethargy, weakness, seizures. - History Source History Provided By: Patient Limitations to Obtaining History: No Limitations - Past Medical History Cardio/Vascular: Yes: AFIB, HTN, Other (chronic lymphedema) Pulmonary: Yes: COPD, Other (recently had a chest tube removed). No: O2 Dependent Gastrointestinal: Yes: GERD ...: No Endocrine: Yes: Diabetes Mellitus, Hyperthyroidism - Alcohol/Substance Use Hx Alcohol Use: No History of Substance Use: reports: None - Smoking History Smoking history: Never smoked Have you smoked in the past 12 months: No Aproximately how many cigarettes per day: 0 If you are a former smoker, when did you quit?: n - Social History Usual Living Arrangement: With Child ADL: Family Assistance History of Recent Travel: No Home Medications - Allergies Allergies/Adverse Reactions: Allergies Allergy/AdvReac Type Severity Reaction Status Date / Time hydromorphone HCl AdvReac Severe Verified 01/25/17 05:56 [From Dilaudid] oxycodone AdvReac Severe Verified 01/24/17 19:39 - Home Medications Home Medications: Ambulatory Orders Levothyroxine [Synthroid -] 75 mcg PO DAILY 10/17/12 Loratadine [Claritin -] 10 mg PO DAILY 10/17/12 Metformin HCl [Glucophage] 500 mg PO BID 10/17/12 [place]-3 Acid Ethyl Esters [Lovaza -] 1,000 mg PO TID 10/17/12 Insulin (Novolog) [Novolog Flexpen -] See Protocol SQ ACHS #1 pen 10/03/16 Ranitidine [Zantac -] 150 mg PO BID #30 tab 10/03/16 Potassium Chloride 10 meq PO DAILY 10/24/16 Diltiazem Cd [Cardizem Cd -] 300 mg PO DAILY 10/25/16 Glipizide 5 mg PO DAILY #60 tablet 10/31/16 Furosemide [Lasix -] 40 mg PO DAILY 01/02/17 Montelukast Na [Singulair -] 10 mg PO HS 01/02/17 Albuterol Sulfate Inhaler - [Ventolin HFA Inhaler -] 2 puff IH Q4H PRN #5 inhaler 02/26/17 Bupropion HCl [Wellbutrin Xl -] 150 mg PO DAILY #90 tab.sr.24h 02/26/17 FENTANYL 12mcg PATCH [DURAGESIC 12mcg PATCH -] 1 each TD Q72H #15 patch MDD 1 Fentanyl Patch Waste [Duragesic Patch Waste] 1 each TD Q3D PRN #15 each Furosemide [Lasix -] 40 mg PO BID@0600,1400 #60 tablet 02/26/17 Lytes/Yerba Neelima [Mouthkote Solution -] 1 applic MM DAILY #1 applic 02/26/17 Nystatin Powder [Nystop Powder -] 15 gm TP BID #60 powder 02/26/17 [place]-3 Acid Ethyl Esters [Lovaza -] 1 gm PO BID #90 cap 02/26/17 Polyethylene Glycol 3350 [Miralax 119 gm Btl -] 17 gm PO DAILY #1 bottle Potassium Chloride [K-Dur -] 20 meq PO BID #60 tablet.er 02/26/17 Sennosides [Senna -] 2 tab PO HS PRN #60 tablet 02/26/17 Tiotropium [place] [Spiriva] 1 puff IH DAILY #5 inh 02/26/17 Tramadol HCl [Ultram -] 75 mg PO Q6H PRN #90 tablet MDD 4 02/26/17 Warfarin Na [Coumadin -] 2 mg PO DAILY@1800 #30 tablet 02/26/17 Zinc Oxide 1 applic TP BID #2 tube 02/26/17 Family Disease History - Family Disease History Family Disease History: Diabetes: Mother, CA: Mother Review of Systems - Review of Systems Constitutional: reports: Malaise. denies: Chills, Fever, Lethargy, Weakness Eyes: reports: No Symptoms HENT: reports: No Symptoms Neck: reports: No Symptoms Cardiovascular: reports: No Symptoms Respiratory: reports: No Symptoms Gastrointestinal: reports: Nausea. denies: Abdominal Pain, Vomiting Genitourinary: reports: No Symptoms Neurological: reports: No Symptoms Nephrology Consult - Height Height: 5 ft 2 in - Weight Weight: 154.131 kg - BMI Body Mass Index (BMI): 62.1 - Lab Results CBC,BMP: CBC, BMP 03/29/17 06:20 03/29/17 06:20 Anion Gap: Anion Gap Anion Gap 10 (8-16) 03/29/17 06:20 - Imaging Chest X-ray: Report Reviewed Cat Scan: Report Reviewed - Physical Examination Vital Signs: Vital Signs Temperature 98.2 F 03/29/17 09:00 Pulse Rate 90 03/29/17 09:00 Respiratory Rate 18 03/29/17 09:00 Blood Pressure 110/60 03/29/17 09:00 O2 Sat by Pulse Oximetry (%) 96 03/28/17 20:29 Constitutional: Yes: No Distress Eyes: Yes: Conjunctiva Clear HENT: Yes: Atraumatic, Normocephalic Neck: Yes: Supple Cardiovascular: Yes: Regular Rate and Rhythm, S1, S2. No: Murmur, Rub Respiratory: Yes: Regular, CTA Bilaterally Gastrointestinal: Yes: Normal Bowel Sounds, Abdomen, Obese Extremities: No: Cold, Cool, Cyanosis Edema: Yes Edema: LLE: 3+, RLE: 3+ Peripheral Pulses WNL: Yes Neurological: Yes: Alert, Oriented Assessment/Plan 61 year old woman with PMhx of Metastatic Ovarian Ca (lung, Liver) on Chemo, Hypertension, DM Type 2, Chronic Lymphedema, Obesity presented with thrombocytopenia and found to have hyponatremia. #Hyponatremia Pt with low serum Na in the past, ranging from 132-134 Difficult to access volume status because of body habitus pt does have dry MM and could be hypovolemic on IVF currently and serum na went from 129 to 130 Check urine studies continue isotonic saline for now repeat BMP in the PM regular diet for now hold lasix x 24 hours and trend Na #Thrombocytopenia in setting of Chemo Management as per Oncology #Hyperurecemia trend for now consider allopurionol if there is risk for tumor lysis (less likely given solid organ malignancy) #Hx of Hypertension BP is WNL hold Lasix Thank you Will follow Mirza Zuleta DO
[2017-03-29] MEDS: POTASSIUM CHLORIDE TABS 20 MEQ TABLET.ER (FP) PO SCH ×2 (11:04→21:14)
[2017-03-29] MEDS: traMADol HCL 50 MG TABLET PO PRN ×3 (11:05→23:13)
[2017-03-29] MEDS: TIOTROPIUM BROMIDE 18 MCG/INH (DEVICE W/ 5 CAPSULES) IH SCH (11:07)
[2017-03-29] MEDS: LIDOCAINE PATCH REMOVAL MC SCH (11:08)
[2017-03-29] MEDS: POLYETHYLENE GLYCOL 3350 119 GM BTL PO SCH (11:08)
[2017-03-29] MEDS ORDERED: INSULIN (NOVOLOG) ASPART 100 UNITS/ML 10ML VIAL ONE (11:35)
--- NOTE | 2017-03-29 12:44 | PN ---
Progress Note (short form) - Note Progress Note: patient seen and examined. Sitting in chair. No new issues. comfortable Vital Signs Temp 98.2 F 03/29/17 09:00 Pulse 90 03/29/17 09:00 Resp 18 03/29/17 09:00 BP 110/60 03/29/17 09:00 Pulse Ox 96 03/28/17 20:29 Intake & Output 03/28/17 03/29/17 03/29/17 23:59 11:59 23:59 Intake Total 200 600 Balance 200 600 Weight 339 lb 12.8 oz Intake: IV 400 platelets 400 Oral 200 200 Other: Voiding Method Toilet Toilet # Unmeasured Voids Void 3 Height 5 ft 2 in Body Mass Index (BMI) 62.1 Weight Measurement Method Chair Scale Active Medications Acetaminophen (Tylenol -) 500 mg PO Q4H PRN PRN Reason: FEVER OR PAIN Last Admin: 03/24/17 23:24 Dose: 500 mg Albuterol Sulfate (Ventolin 0.083% Nebulizer Soln -) 1 amp NEB HS [facility] Last Admin: 03/29/17 00:10 Dose: 1 amp Bupropion HCl (Wellbutrin Xl -) 150 mg PO DAILY [facility] Last Admin: 03/29/17 11:07 Dose: 150 mg Diltiazem HCl (Cardizem Cd -) 300 mg PO DAILY [facility] Last Admin: 03/29/17 11:08 Dose: 300 mg Docusate Sodium (Colace -) 100 mg PO TID [facility] Last Admin: 03/29/17 06:21 Dose: 100 mg Fentanyl (Duragesic 25mcg Patch -) 1 patch TD Q72H [facility] Last Admin: 03/28/17 00:27 Dose: 1 patch Guaifenesin (Diabetic Tussin Dm -) 5 ml PO Q6H PRN PRN Reason: COUGH Last Admin: 03/26/17 16:46 Dose: 5 ml Sodium Chloride (Normal Saline -) 1,000 mls @ 42 mls/hr IV ASDIR [facility] Last Admin: 03/28/17 19:06 Dose: 42 mls/hr Insulin Aspart (Novolog Vial Sliding Scale -) 1 vial SQ ACHS VIRGILIO PRN Reason: Protocol Last Admin: 03/29/17 06:28 Dose: Not Given Levothyroxine Sodium (Synthroid -) 75 mcg PO DAILY@0700 [facility] Last Admin: 03/29/17 06:21 Dose: 75 mcg Lidocaine (Lidoderm Patch -) 1 patch TP [facility] Last Admin: 03/28/17 21:14 Dose: Not Given Miscellaneous (Duragesic Patch Waste) 1 each TD PRN PRN Miscellaneous (Lidoderm Patch Removal) 1 each MC DAILY [facility] Last Admin: 03/29/17 11:08 Dose: 1 each Montelukast Sodium (Singulair -) 10 mg PO HS [facility] Last Admin: 03/28/17 21:14 Dose: 10 mg Ondansetron HCl (Zofran Injection) 4 mg IVPB Q8H PRN PRN Reason: NAUSEA Last Admin: 03/26/17 12:54 Dose: 4 mg Polyethylene Glycol (Miralax (For Daily Use) -) 17 gm PO DAILY [facility] Last Admin: 03/29/17 11:08 Dose: Not Given Potassium Chloride (K-Dur -) 20 meq PO BID [facility] Last Admin: 03/29/17 11:04 Dose: 20 meq Senna (Senna -) 2 tab PO HS PRN PRN Reason: CONSTIPATION Last Admin: 03/28/17 21:38 Dose: 2 tab Tiotropium [place] (Spiriva -) 1 puff IH DAILY [facility] Last Admin: 03/29/17 11:07 Dose: 1 puff Tramadol HCl (Ultram -) 75 mg PO Q6H PRN PRN Reason: PAIN Last Admin: 03/29/17 11:05 Dose: 75 mg CBC, BMP 03/29/17 06:20 03/29/17 06:20 Physical Examination Constitutional: Yes: alert and awake. Eyes: Yes: Conjunctiva Clear HENT: Yes: Atraumatic/ throat - clear Neck: Yes: Supple, Trachea Midline Cardiovascular: Yes: Pulse Irregular, S1, S2 Respiratory: Yes: diminished at bases Gastrointestinal: Yes: Normal Bowel Sounds, Abdomen, Obese. Neurological: Yes: Alert, Oriented x 3 Psychiatric: Yes: Alert, Oriented Ext-Chronic venous stasis of legs Imaging - Results X-ray: Noted CT scan reviewed and noted--- progression of disease Assessment/Plan Metastatic ovarian ca-- worsening . Thrombocytopenia paroxysmal afib obesity depression hyponatremia- renal on case stable RT planned continue present care. will follow. Problem List - Problems (1) Thrombocytopenia Code(s): D69.6 - THROMBOCYTOPENIA, UNSPECIFIED (2) A-fib Code(s): I48.91 - UNSPECIFIED ATRIAL FIBRILLATION Qualifiers: (3) Anemia Code(s): D64.9 - ANEMIA, UNSPECIFIED (4) Diabetes Code(s): E11.9 - TYPE 2 DIABETES MELLITUS WITHOUT COMPLICATIONS Qualifiers: Diabetes mellitus type: type 2 Diabetes mellitus complication status: without complication (5) Hypoalbuminemia Code(s): E88.09 - OTH DISORDERS OF PLASMA-PROTEIN METABOLISM, NEC (6) Primary cancer of ovary with widespread metastatic disease Code(s): C56.9 - MALIGNANT NEOPLASM OF UNSPECIFIED OVARY; C80.0 - DISSEMINATED MALIGNANT NEOPLASM, UNSPECIFIED
--- NOTE | 2017-03-29 15:00 | PN ---
Progress Note (short form) - Note Progress Note: Patient seen and examined Has some cough/SOB/back pain Last Vital Signs Temp Pulse Resp BP Pulse Ox 98.2 F 90 18 110/60 96 03/29/17 09:00 03/29/17 09:00 03/29/17 09:00 03/29/17 09:00 03/28/17 20:29 Cor: RSR, No murmurs, No gallops Lungs: Clear to P&A Abd: Soft, Normal bowel sounds, No organomegaly Ext:No significant edema Abnormal Lab Results 03/29/17 03/29/17 03/29/17 06:20 06:20 06:20 WBC 10.7 H RBC 2.93 L Hgb 9.7 L Hct 28.5 L MCV 97.4 H RDW 21.0 H Plt Count 49 L PT with INR 13.20 H INR 1.17 H Sodium 130 L Chloride 94 L Random Glucose 143 H D Serum Osmolality Uric Acid 9.6 H Calcium 8.1 L AST 63 H Alkaline Phosphatase 204 H Total Protein 5.7 L Albumin 2.0 L TSH 4.05 H D 03/29/17 06:20 WBC RBC Hgb Hct MCV RDW Plt Count PT with INR INR Sodium Chloride Random Glucose Serum Osmolality 269 L Uric Acid Calcium AST Alkaline Phosphatase Total Protein Albumin TSH Home Medication List Medication Instructions Recorded Confirmed Type Levothyroxine [Synthroid -] 75 mcg PO DAILY 10/17/12 03/18/17 History Loratadine [Claritin -] 10 mg PO DAILY 10/17/12 03/18/17 History Metformin HCl [Glucophage] 500 mg PO BID 10/17/12 03/18/17 History [place]-3 Acid Ethyl Esters [Lovaza 1,000 mg PO TID 10/17/12 03/18/17 History -] Potassium Chloride 10 meq PO DAILY 10/24/16 03/18/17 History Diltiazem Cd [Cardizem Cd -] 300 mg PO DAILY 10/25/16 03/18/17 History Furosemide [Lasix -] 40 mg PO DAILY 01/02/17 03/18/17 History Montelukast Na [Singulair -] 10 mg PO HS 01/02/17 03/18/17 History Active Medications Generic Name Dose Route Start Last Admin Trade Name Freq PRN Reason Stop Dose Admin Acetaminophen 500 mg 03/22/17 18:38 12/04/17 23:24 Tylenol - PO 500 mg Q4H PRN Administration FEVER OR PAIN Albuterol Sulfate 1 amp 03/28/17 23:30 03/29/17 00:10 Ventolin 0.083% Nebulizer Soln - NEB 1 amp HS VIRGILIO Administration Bupropion HCl 150 mg 03/23/17 10:00 03/29/17 11:07 Wellbutrin Xl - PO 150 mg DAILY VIRGILIO Administration Diltiazem HCl 300 mg 03/23/17 10:00 03/29/17 11:08 Cardizem Cd - PO 300 mg DAILY VIRGILIO Administration Docusate Sodium 100 mg 03/26/17 22:00 03/29/17 14:40 Colace - PO 100 mg TID VIRGILIO Administration Fentanyl 1 patch 03/25/17 00:05 03/28/17 00:27 Duragesic 25mcg Patch - TD 1 patch Q72H VIRGILIO Administration Guaifenesin 5 ml 03/23/17 12:11 03/26/17 16:46 Diabetic Tussin Dm - PO 5 ml Q6H PRN Administration COUGH Sodium Chloride 1,000 mls @ 42 mls/hr 03/28/17 18:45 03/28/17 19:06 Normal Saline - IV 42 mls/hr ASDIR VIRGILIO Administration Insulin Aspart 1 vial 03/24/17 18:16 03/29/17 11:00 Novolog Vial Sliding Scale - SQ Not Given ACHS VIRGILIO Protocol Levothyroxine Sodium 75 mcg 03/23/17 07:00 03/29/17 06:21 Synthroid - PO 75 mcg DAILY@0700 VIRGILIO Administration Lidocaine 1 patch 03/25/17 00:15 03/28/17 21:14 Lidoderm Patch - TP Not Given HS VIRGILIO Miscellaneous 1 each 03/25/17 00:05 Duragesic Patch Waste TD PRN PRN Miscellaneous 1 each 03/25/17 10:00 03/29/17 11:08 Lidoderm Patch Removal MC 1 each DAILY VIRGILIO Administration Montelukast Sodium 10 mg 03/22/17 22:00 03/28/17 21:14 Singulair - PO 10 mg HS VIRGILIO Administration Ondansetron HCl 4 mg 03/23/17 12:10 03/26/17 12:54 Zofran Injection IVPB 4 mg Q8H PRN Administration NAUSEA Polyethylene Glycol 17 gm 03/23/17 10:00 03/29/17 11:08 Miralax (For Daily Use) - PO Not Given DAILY VIRGILIO Potassium Chloride 20 meq 03/23/17 10:00 03/29/17 11:04 K-Dur - PO 20 meq BID VIRGILIO Administration Senna 2 tab 03/22/17 18:13 03/28/17 21:38 Senna - PO 2 tab HS PRN Administration CONSTIPATION Tiotropium [place] 1 puff 03/23/17 10:00 03/29/17 11:07 Spiriva - IH 1 puff DAILY VIRGILIO Administration Tramadol HCl 75 mg 03/28/17 22:59 03/29/17 11:05 Ultram - PO 75 mg Q6H PRN Administration PAIN A/P 61 y/o patient with metastatic high grade mullerian cancer on gemzar Comes in with thrombocytopenia Transfused monodonor platelets Transfused PRBCs CT scans show progressive diseasse New T10 met/epidural disease rad-onc consult pain control await platelets to recover to start RT gentle hydration for hyponatremia Platelets gradually improving --[id number] today. Resume coumadin. Lovenox prophylaxis until coumadin is therapeutic. Cardiology follow up regarding afib
[2017-03-29] MEDS: ENOXAPARIN NA (PORCINE) 40 MG/0.4 ML DISP.SYRIN SQ SCH (16:42)
[2017-03-29] MEDS: WARFARIN NA 3 MG TABLET PO SCH (17:01)
[2017-03-29] MEDS: MONTELUKAST NA 10 MG TABLET PO SCH (21:13)
[2017-03-29] MEDS: LIDOCAINE 5% TOPICAL PATCH TP SCH (21:14)
[2017-03-29] MEDS: SODIUM CHLORIDE 1,000 ML IV SCH (21:14)
[2017-03-29] MEDS: GABAPENTIN 100 MG CAPSULE (FP) PO SCH (21:16)
[2017-03-29] MEDS: ACETAMINOPHEN 500 MG TABLET (FP) PO PRN (22:36)
[2017-03-30] MEDS: SENNOSIDES 8.6MG TABLET (FP) PO PRN (05:29)
[2017-03-30] MEDS: DOCUSATE SODIUM 100 MG CAPSULE (FP) PO SCH ×3 (05:29→21:35)
[2017-03-30] MEDS: GABAPENTIN 100 MG CAPSULE (FP) PO SCH ×4 (05:30→21:36)
[2017-03-30] MEDS: traMADol HCL 50 MG TABLET PO PRN ×3 (05:40→18:49)
[2017-03-30] MEDS: LEVOTHYROXINE NA 75 MCG TABLET (FP) PO SCH (06:04)
[2017-03-30] MEDS: INSULIN SLIDING SCALE (NOVOLOG) 1 VIAL SQ SCH ×4 (06:05→21:36)
[2017-03-30 07:04] LABS: INR 1.19 (0.82-1.09); PROTHROMBIN TIME (PATIENT) 13.5 SEC (9.98-11.88)
[2017-03-30 07:07] LABS: ACTIVATED PTT 32.5 SECONDS (26.9-34.4)
[2017-03-30 07:09] LABS: HEMATOCRIT 28.2 % (32.4-45.2); HEMOGLOBIN 9.5 GM/dL (10.7-15.3); MCH 32.7 pg (25.7-33.7); MCHC 33.6 g/dl (32.0-36.0); MEAN CELL VOLUME 97.2 fl (80-96); PLATELET COUNT 70 K/MM3 (134-434); RDW 22.5 % (11.6-15.6); WHITE BLOOD COUNT 11.4 K/mm3 (4.0-10.0)
[2017-03-30 07:18] LABS: ANION GAP 10 (8-16); BLOOD UREA NITROGEN 15 mg/dL (7-18); CALCIUM 8.6 mg/dL (8.5-10.1); CHLORIDE 94 mmol/L (98-107); CO2 26 mmol/L (21-32); CREATININE 0.8 mg/dL (0.55-1.02); GLUCOSE,RANDOM 143 mg/dL (74-106); MAGNESIUM 1.8 mg/dL (1.8-2.4); PHOSPHOROUS 3.5 mg/dL (2.5-4.9); POTASSIUM 4.3 mmol/L (3.5-5.1); SODIUM 130 mmol/L (136-145); URIC ACID 9.2 mg/dL (2.6-7.2)
[2017-03-30 10:27] LABS: PLATELET ESTIMATE DECREASED
[2017-03-30] MEDS: POTASSIUM CHLORIDE TABS 20 MEQ TABLET.ER (FP) PO SCH ×2 (10:48→21:35)
[2017-03-30] MEDS: ENOXAPARIN NA (PORCINE) 40 MG/0.4 ML DISP.SYRIN SQ SCH (10:49)
[2017-03-30] MEDS: TIOTROPIUM BROMIDE 18 MCG/INH (DEVICE W/ 5 CAPSULES) IH SCH (10:49)
[2017-03-30] MEDS: LIDOCAINE PATCH REMOVAL MC SCH (10:59)
[2017-03-30] MEDS: POLYETHYLENE GLYCOL 3350 119 GM BTL PO SCH (10:59)
[2017-03-30] MEDS: guaiFENesin/D-M SUGAR-FREE/ACLHOL-FREE 118 ML BOTTLE PO PRN (11:00)
--- NOTE | 2017-03-30 11:06 | PN ---
Progress Note (short form) - Note Progress Note: Renal follow up for SURY Pt seen and examined at the bedside awake and alert no acute complaints no sob, chest pain no confusion, lethargy, AMS on IVF Vital Signs Temperature 97.5 F L 03/30/17 06:00 Pulse Rate 118 H 03/30/17 06:00 Respiratory Rate 18 03/30/17 06:00 Blood Pressure 124/72 03/30/17 06:00 O2 Sat by Pulse Oximetry (%) 98 03/29/17 20:14 Intake & Output 03/27/17 03/28/17 03/29/17 03/30/17 23:59 23:59 23:59 23:59 Intake Total 150 200 720 754 Balance 150 200 720 754 Weight 155.265 kg 152.886 kg 154.131 kg 158.312 kg NAD RRRR dry MM CTA Obese Abd 3+ edema in le CBC, BMP 03/30/17 05:30 03/30/17 05:30 Current Medications Acetaminophen (Tylenol -) 500 mg PO Q4H PRN PRN Reason: FEVER OR PAIN Last Admin: 03/29/17 22:36 Dose: 500 mg Albuterol Sulfate (Ventolin 0.083% Nebulizer Soln -) 1 amp NEB HS [facility] Last Admin: 03/29/17 21:52 Dose: 1 amp Bupropion HCl (Wellbutrin Xl -) 150 mg PO DAILY [facility] Last Admin: 03/30/17 10:50 Dose: 150 mg Diltiazem HCl (Cardizem Cd -) 300 mg PO DAILY [facility] Last Admin: 03/30/17 10:48 Dose: 300 mg Docusate Sodium (Colace -) 100 mg PO TID [facility] Last Admin: 03/30/17 05:29 Dose: 100 mg Enoxaparin Sodium (Lovenox -) 40 mg SQ DAILY [facility] Last Admin: 03/30/17 10:49 Dose: 40 mg Fentanyl (Duragesic 25mcg Patch -) 1 patch TD Q72H [facility] Last Admin: 03/28/17 00:27 Dose: 1 patch Gabapentin (Neurontin -) 100 mg PO TID [facility] Last Admin: 03/30/17 05:30 Dose: Not Given Guaifenesin (Diabetic Tussin Dm -) 5 ml PO Q6H PRN PRN Reason: COUGH Last Admin: 03/26/17 16:46 Dose: 5 ml Sodium Chloride (Normal Saline -) 1,000 mls @ 42 mls/hr IV ASDIR [facility] Last Admin: 03/29/17 21:14 Dose: 42 mls/hr Insulin Aspart (Novolog Vial Sliding Scale -) 1 vial SQ ACHS VIRGILIO PRN Reason: Protocol Last Admin: 03/30/17 06:05 Dose: Not Given Levothyroxine Sodium (Synthroid -) 75 mcg PO DAILY@0700 [facility] Last Admin: 03/30/17 06:04 Dose: 75 mcg Lidocaine (Lidoderm Patch -) 1 patch TP HS [facility] Last Admin: 03/29/17 21:14 Dose: Not Given Miscellaneous (Duragesic Patch Waste) 1 each TD PRN PRN Miscellaneous (Lidoderm Patch Removal) 1 each MC DAILY [facility] Last Admin: 03/30/17 10:59 Dose: Not Given Montelukast Sodium (Singulair -) 10 mg PO [facility] Last Admin: 03/29/17 21:13 Dose: 10 mg Ondansetron HCl (Zofran Injection) 4 mg IVPB Q8H PRN PRN Reason: NAUSEA Last Admin: 03/26/17 12:54 Dose: 4 mg Polyethylene Glycol (Miralax (For Daily Use) -) 17 gm PO DAILY [facility] Last Admin: 03/30/17 10:59 Dose: Not Given Potassium Chloride (K-Dur -) 20 meq PO BID [facility] Last Admin: 03/30/17 10:48 Dose: 20 meq Senna (Senna -) 2 tab PO HS PRN PRN Reason: CONSTIPATION Last Admin: 03/30/17 05:29 Dose: 2 tab Tiotropium [place] (Spiriva -) 1 puff IH DAILY [facility] Last Admin: 03/30/17 10:49 Dose: 1 puff Tramadol HCl (Ultram -) 75 mg PO Q6H PRN PRN Reason: PAIN Last Admin: 03/30/17 10:51 Dose: 75 mg Warfarin Sodium (Coumadin -) 3 mg PO DAILY@1800 [facility] Last Admin: 03/29/17 17:01 Dose: 3 mg 61 year old woman with PMhx of Metastatic Ovarian Ca (lung, Liver) on Chemo, Hypertension, DM Type 2, Chronic Lymphedema, Obesity presented with thrombocytopenia and found to have hyponatremia. #Hyponatremia Pt with low serum Na in the past, ranging from 132-134 Urine studies show high urine Na and high urine OSM indicative fo ADH release can d/c IVF water restriction of 1L dialy will defer salt tabs for now hold lasix one more day repeat urine studies today #Thrombocytopenia in setting of Chemo Management as per Oncology #Hyperurecemia trend for now #Hx of Hypertension BP is WNL hold Lasix Thank you Will follow Mirza Zuleta DO
[2017-03-30] MEDS ORDERED: ALBUTEROL SO4 0.083% IH SOL 2.5 MG/3 ML VIAL.NEB. NEB PRN ×2 (11:59→16:40)
--- NOTE | 2017-03-30 12:01 | PN ---
Progress Note (short form) - Note Progress Note: patient seen and examined. Sitting in chair. No new issues. comfortable. all f/u noted platlets improved denies pain. restarted on coumadin Vital Signs Temp 97.5 F L 03/30/17 06:00 Pulse 118 H 03/30/17 06:00 Resp 18 03/30/17 06:00 BP 124/72 03/30/17 06:00 Pulse Ox 98 03/29/17 20:14 Intake & Output 03/29/17 03/30/17 03/30/17 23:59 11:59 23:59 Intake Total 120 754 Balance 120 754 Weight 349 lb 0.3 oz Intake: IV 504 platelets 504 Oral 120 250 Other: Voiding Method Toilet Toilet # Unmeasured Voids Void 1 3 Bowel Movement Yes: 1 No Weight Measurement Method Standing Scale Active Medications Acetaminophen (Tylenol -) 500 mg PO Q4H PRN PRN Reason: FEVER OR PAIN Last Admin: 03/29/17 22:36 Dose: 500 mg Albuterol Sulfate (Ventolin 0.083% Nebulizer Soln -) 1 amp NEB Q4H PRN PRN Reason: ASTHMA Bupropion HCl (Wellbutrin Xl -) 150 mg PO DAILY [facility] Last Admin: 03/30/17 10:50 Dose: 150 mg Diltiazem HCl (Cardizem Cd -) 300 mg PO DAILY [facility] Last Admin: 03/30/17 10:48 Dose: 300 mg Docusate Sodium (Colace -) 100 mg PO TID [facility] Last Admin: 03/30/17 05:29 Dose: 100 mg Enoxaparin Sodium (Lovenox -) 40 mg SQ DAILY [facility] Last Admin: 03/30/17 10:49 Dose: 40 mg Fentanyl (Duragesic 25mcg Patch -) 1 patch TD Q72H [facility] Last Admin: 03/28/17 00:27 Dose: 1 patch Gabapentin (Neurontin -) 100 mg PO TID [facility] Last Admin: 03/30/17 05:30 Dose: Not Given Guaifenesin (Diabetic Tussin Dm -) 5 ml PO Q6H PRN PRN Reason: COUGH Last Admin: 03/26/17 16:46 Dose: 5 ml Sodium Chloride (Normal Saline -) 1,000 mls @ 42 mls/hr IV ASDIR [facility] Last Admin: 03/29/17 21:14 Dose: 42 mls/hr Insulin Aspart (Novolog Vial Sliding Scale -) 1 vial SQ ACHS [facility] PRN Reason: Protocol Last Admin: 03/30/17 06:05 Dose: Not Given Levothyroxine Sodium (Synthroid -) 75 mcg PO DAILY@0700 [facility] Last Admin: 03/30/17 06:04 Dose: 75 mcg Lidocaine (Lidoderm Patch -) 1 patch TP [facility] Last Admin: 03/29/17 21:14 Dose: Not Given Miscellaneous (Duragesic Patch Waste) 1 each TD PRN PRN Miscellaneous (Lidoderm Patch Removal) 1 each MC DAILY [facility] Last Admin: 03/30/17 10:59 Dose: Not Given Montelukast Sodium (Singulair -) 10 mg PO [facility] Last Admin: 03/29/17 21:13 Dose: 10 mg Ondansetron HCl (Zofran Injection) 4 mg IVPB Q8H PRN PRN Reason: NAUSEA Last Admin: 03/26/17 12:54 Dose: 4 mg Polyethylene Glycol (Miralax (For Daily Use) -) 17 gm PO DAILY [facility] Last Admin: 03/30/17 10:59 Dose: Not Given Potassium Chloride (K-Dur -) 20 meq PO BID [facility] Last Admin: 03/30/17 10:48 Dose: 20 meq Senna (Senna -) 2 tab PO HS PRN PRN Reason: CONSTIPATION Last Admin: 03/30/17 05:29 Dose: 2 tab Tiotropium [place] (Spiriva -) 1 puff IH DAILY [facility] Last Admin: 03/30/17 10:49 Dose: 1 puff Tramadol HCl (Ultram -) 75 mg PO Q6H PRN PRN Reason: PAIN Last Admin: 03/30/17 10:51 Dose: 75 mg Warfarin Sodium (Coumadin -) 3 mg PO DAILY@1800 [facility] Last Admin: 03/29/17 17:01 Dose: 3 mg CBC, BMP 03/30/17 05:30 03/30/17 05:30 Physical Examination Constitutional: Yes: alert and awake. Eyes: Yes: Conjunctiva Clear HENT: Yes: Atraumatic/ throat - clear Neck: Yes: Supple, Trachea Midline. no jvd Cardiovascular: Yes: Pulse Irregular, S1, S2 Respiratory: Yes: diminished at bases Gastrointestinal: Yes: Normal Bowel Sounds, Abdomen, Obese. Neurological: Yes: Alert, Oriented x 3 Psychiatric: Yes: Alert, Oriented Ext-Chronic venous stasis of legs Imaging - Results X-ray: Noted CT scan reviewed and noted--- progression of disease Assessment/Plan Metastatic ovarian ca-- worsening . Thrombocytopenia paroxysmal afib obesity depression hyponatremia- stable RT planned-- likely tomorrow continue present care. monitor inr will follow. Problem List - Problems (1) Thrombocytopenia Code(s): D69.6 - THROMBOCYTOPENIA, UNSPECIFIED (2) A-fib Code(s): I48.91 - UNSPECIFIED ATRIAL FIBRILLATION Qualifiers: (3) Anemia Code(s): D64.9 - ANEMIA, UNSPECIFIED (4) Diabetes Code(s): E11.9 - TYPE 2 DIABETES MELLITUS WITHOUT COMPLICATIONS Qualifiers: Diabetes mellitus type: type 2 Diabetes mellitus complication status: without complication (5) Hypoalbuminemia Code(s): E88.09 - OTH DISORDERS OF PLASMA-PROTEIN METABOLISM, NEC (6) Primary cancer of ovary with widespread metastatic disease Code(s): C56.9 - MALIGNANT NEOPLASM OF UNSPECIFIED OVARY; C80.0 - DISSEMINATED MALIGNANT NEOPLASM, UNSPECIFIED
[2017-03-30] MEDS: ACETAMINOPHEN 500 MG TABLET (FP) PO PRN ×2 (12:31→23:09)
--- NOTE | 2017-03-30 14:41 | PN ---
Progress Note (short form) - Note Progress Note: Patient seen and examined Has some cough/SOB/back pain feels Lt. leg is weaker Last Vital Signs Temp Pulse Resp BP Pulse Ox 98.0 F 114 H 18 135/69 100 03/30/17 14:00 03/30/17 14:00 03/30/17 14:00 03/30/17 14:00 03/30/17 09:00 Cor: RSR, No murmurs, No gallops Lungs: Clear to P&A Abd: Soft, Normal bowel sounds, No organomegaly Ext:No significant edema Abnormal Lab Results 03/30/17 03/30/17 03/30/17 05:30 05:30 05:30 WBC 11.4 H RBC 2.90 L Hgb 9.5 L Hct 28.2 L MCV 97.2 H RDW 22.5 H Plt Count 70 L D Lymphocytes % (Manual) 7.0 L Monocytes % (Manual) 12 H PT with INR 13.50 H INR 1.19 H Sodium 130 L Chloride 94 L Random Glucose 143 H Uric Acid 9.2 H Active Medications Acetaminophen (Tylenol -) 500 mg PO Q4H PRN PRN Reason: FEVER OR PAIN Last Admin: 03/30/17 12:31 Dose: 500 mg Albuterol Sulfate (Ventolin 0.083% Nebulizer Soln -) 1 amp NEB Q4H PRN PRN Reason: ASTHMA Bupropion HCl (Wellbutrin Xl -) 150 mg PO DAILY [facility] Last Admin: 03/30/17 10:50 Dose: 150 mg Diltiazem HCl (Cardizem Cd -) 300 mg PO DAILY [facility] Last Admin: 03/30/17 10:48 Dose: 300 mg Docusate Sodium (Colace -) 100 mg PO TID [facility] Last Admin: 03/30/17 05:29 Dose: 100 mg Fentanyl (Duragesic 25mcg Patch -) 1 patch TD Q72H [facility] Last Admin: 03/28/17 00:27 Dose: 1 patch Gabapentin (Neurontin -) 100 mg PO TID [facility] Last Admin: 03/30/17 05:30 Dose: Not Given Guaifenesin (Diabetic Tussin Dm -) 5 ml PO Q6H PRN PRN Reason: COUGH Last Admin: 03/26/17 16:46 Dose: 5 ml Heparin Sodium (Porcine) (Heparin -) 1,000 unit IVPUSH PRN PRN PRN Reason: Heparin Heparin Sodium (Porcine) (Heparin -) 5,000 unit IVPUSH PRN PRN PRN Reason: Heparin Heparin Sodium (Porcine) 25, (000 unit/ Sodium Chloride) 500 mls @ 20 mls/hr IV TITR [facility]; 1,000 UNIT/HR PRN Reason: Protocol Insulin Aspart (Novolog Vial Sliding Scale -) 1 vial SQ ACHS [facility] PRN Reason: Protocol Last Admin: 03/30/17 12:28 Dose: Not Given Levothyroxine Sodium (Synthroid -) 75 mcg PO DAILY@0700 [facility] Last Admin: 03/30/17 06:04 Dose: 75 mcg Lidocaine (Lidoderm Patch -) 1 patch TP [facility] Last Admin: 03/29/17 21:14 Dose: Not Given Miscellaneous (Duragesic Patch Waste) 1 each TD PRN PRN Miscellaneous (Lidoderm Patch Removal) 1 each MC DAILY [facility] Last Admin: 03/30/17 10:59 Dose: Not Given Montelukast Sodium (Singulair -) 10 mg PO HS [facility] Last Admin: 03/29/17 21:13 Dose: 10 mg Ondansetron HCl (Zofran Injection) 4 mg IVPB Q8H PRN PRN Reason: NAUSEA Last Admin: 03/26/17 12:54 Dose: 4 mg Polyethylene Glycol (Miralax (For Daily Use) -) 17 gm PO DAILY [facility] Last Admin: 03/30/17 10:59 Dose: Not Given Potassium Chloride (K-Dur -) 20 meq PO BID [facility] Last Admin: 03/30/17 10:48 Dose: 20 meq Senna (Senna -) 2 tab PO HS PRN PRN Reason: CONSTIPATION Last Admin: 03/30/17 05:29 Dose: 2 tab Tiotropium [place] (Spiriva -) 1 puff IH DAILY [facility] Last Admin: 03/30/17 10:49 Dose: 1 puff Tramadol HCl (Ultram -) 75 mg PO Q6H PRN PRN Reason: PAIN Last Admin: 03/30/17 10:51 Dose: 75 mg Warfarin Sodium (Coumadin -) 3 mg PO DAILY@1800 [facility] Last Admin: 03/29/17 17:01 Dose: 3 mg A/P 61 y/o patient with metastatic high grade mullerian cancer on gemzar Comes in with thrombocytopenia Transfused monodonor platelets Transfused PRBCs CT scans show progressive diseasse New T10 met/epidural disease rad-onc consult pain control Platelets gradually improving --[id number] today. Resume coumadin.heparin bridge without bolus. Cardiology follow up regarding afib Cough--check cxr nebulizer treatments T10 metastases-- for RT will start dexamethasone neuro consult
[2017-03-30] MEDS ORDERED: guaiFENesin/D-M SUGAR-FREE/ACLHOL-FREE 118 ML BOTTLE PO PRN (16:43)
[2017-03-30] MEDS ORDERED: guaiFENesin/CODEINE 10 ML UNIT-DOSE CUPS PO PRN (16:47)
[2017-03-30] MEDS: WARFARIN NA 3 MG TABLET PO SCH (17:34)
[2017-03-30] MEDS: ALBUTEROL SO4 0.083% IH SOL 2.5 MG/3 ML VIAL.NEB. NEB SCH ×2 (18:20→22:18)
[2017-03-30] MEDS: DEXAMETHASONE SOD PHOSPHATE 4 MG/1 ML VIAL IVPB SCH (18:41)
[2017-03-30] MEDS: HEPARIN - 25,000 UNIT in SODIUM CHLORIDE 495 ML IV SCH (18:42)
[2017-03-30] MEDS: guaiFENesin/D-M SUGAR-FREE/ACLHOL-FREE 118 ML BOTTLE PO SCH ×2 (18:57→23:10)
--- NOTE | 2017-03-30 19:58 | CON.CARD ---
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 Pt presented to the ED after outpt labs reveled thrombocytopenia to 39k. Coumadin was held and is still on hold, no active bleed noted. Pt received 1 unit platelets and is being admitted for further transfusions. Of note, pt was climbing the stairs, when she reached the final step her leg went weak and then pivoted around. She now has some eccyhymosis to her lateral side, slip was witnessed by daughter and EMS worker, she did not hit her head, xrays pending. History Source: Patient, Family Member Limitations to Obtaining History: No Limitations - Past Medical History Cardiovascular: Yes: AFIB, HTN, Other (chronic lymphedema) Pulmonary: Yes: COPD, Other (recently had a chest tube removed). No: O2 Dependent Gastrointestinal: Yes: GERD Heme/Onc: Yes: Anemia, Other Endocrine: Yes: Diabetes Mellitus, Hyperthyroidism - History Source History Provided By: Patient, Medical Record Limitations to Obtaining History: No Limitations - Past Medical History Cardio/Vascular: Yes: AFIB, HTN, Other (chronic lymphedema) Pulmonary: Yes: COPD, Other (recently had a chest tube removed). No: O2 Dependent Gastrointestinal: Yes: GERD Reproductive: Yes: Postmenopausal ...: No Heme/Onc: Yes: Anemia Psych: Yes: Anxiety Endocrine: Yes: Diabetes Mellitus, Hyperthyroidism - Alcohol/Substance Use Hx Alcohol Use: No History of Substance Use: reports: None - Smoking History Smoking history: Never smoked Have you smoked in the past 12 months: No Aproximately how many cigarettes per day: 0 If you are a former smoker, when did you quit?: n - Social History Usual Living Arrangement: With Child ADL: Family Assistance History of Recent Travel: No Home Medications - Allergies Allergies/Adverse Reactions: Allergies Allergy/AdvReac Type Severity Reaction Status Date / Time hydromorphone HCl AdvReac Severe Verified 01/25/17 05:56 [From Dilaudid] oxycodone AdvReac Severe Verified 01/24/17 19:39 - Home Medications Home Medications: Ambulatory Orders Levothyroxine [Synthroid -] 75 mcg PO DAILY 10/17/12 Loratadine [Claritin -] 10 mg PO DAILY 10/17/12 Metformin HCl [Glucophage] 500 mg PO BID 10/17/12 [place]-3 Acid Ethyl Esters [Lovaza -] 1,000 mg PO TID 10/17/12 Insulin (Novolog) [Novolog Flexpen -] See Protocol SQ ACHS #1 pen 10/03/16 Ranitidine [Zantac -] 150 mg PO BID #30 tab 10/03/16 Potassium Chloride 10 meq PO DAILY 10/24/16 Diltiazem Cd [Cardizem Cd -] 300 mg PO DAILY 10/25/16 Glipizide 5 mg PO DAILY #60 tablet 10/31/16 Furosemide [Lasix -] 40 mg PO DAILY 01/02/17 Montelukast Na [Singulair -] 10 mg PO HS 01/02/17 Albuterol Sulfate Inhaler - [Ventolin HFA Inhaler -] 2 puff IH Q4H PRN #5 inhaler 02/26/17 Bupropion HCl [Wellbutrin Xl -] 150 mg PO DAILY #90 tab.sr.24h 02/26/17 FENTANYL 12mcg PATCH [DURAGESIC 12mcg PATCH -] 1 each TD Q72H #15 patch MDD 1 Fentanyl Patch Waste [Duragesic Patch Waste] 1 each TD Q3D PRN #15 each Furosemide [Lasix -] 40 mg PO BID@0600,1400 #60 tablet 02/26/17 [place]erba Neelima [Mouthkote Solution -] 1 applic MM DAILY #1 applic 02/26/17 Nystatin Powder [Nystop Powder -] 15 gm TP BID #60 powder 02/26/17 [place]-3 Acid Ethyl Esters [Lovaza -] 1 gm PO BID #90 cap 02/26/17 Polyethylene Glycol 3350 [Miralax 119 gm Btl -] 17 gm PO DAILY #1 bottle Potassium Chloride [K-Dur -] 20 meq PO BID #60 tablet.er 02/26/17 Sennosides [Senna -] 2 tab PO HS PRN #60 tablet 02/26/17 Tiotropium [place] [Spiriva] 1 puff IH DAILY #5 inh 02/26/17 Tramadol HCl [Ultram -] 75 mg PO Q6H PRN #90 tablet MDD 4 02/26/17 Warfarin Na [Coumadin -] 2 mg PO DAILY@1800 #30 tablet 02/26/17 Zinc Oxide 1 applic TP BID #2 tube 02/26/17 Family Disease History - Family Disease History Family Disease History: Diabetes: Mother, CA: Mother Review of Systems - Review of Systems Constitutional: reports: Malaise, Weakness Eyes: reports: No Symptoms HENT: reports: No Symptoms Neck: reports: No Symptoms Cardiovascular: reports: Shortness of Breath Respiratory: reports: Exercise Intolerance, SOB Gastrointestinal: reports: Bloating Genitourinary: reports: No Symptoms Musculoskeletal: reports: Joint Pain, Joint Swelling, Muscle Weakness Integumentary: reports: Wound Neurological: reports: Unsteady Gait, Weakness Psychiatric: reports: Anxiety, Depression - Risk Factors Known Risk Factors: Yes: Age, Hypercholesterolemia, Hypertension, Physical Inactivity, Other (obesity) Vital Signs: Vital Signs Temperature 98.0 F 03/30/17 18:14 Pulse Rate 109 H 03/30/17 18:14 Respiratory Rate 20 03/30/17 18:14 Blood Pressure 122/84 03/30/17 18:14 O2 Sat by Pulse Oximetry (%) 100 03/30/17 09:00 Constitutional: Yes: Anxious Eyes: Yes: WNL HENT: Yes: WNL Neck: Yes: WNL Respiratory: Yes: Diminished Gastrointestinal: Yes: Soft, Abdomen, Obese Renal/: No: Anuria Cardiovascular: Yes: Pulse Irregular JVD: No Carotid Bruit: No PMI: Non-Displaced Heart Sounds: Yes: S1 (varies in intensity), S2 Murmur: Yes: Systolic Murmur, Grade 2 Musculoskeletal: Yes: Joint Stiffness, Joint Swelling, Muscle Weakness Extremities: Yes: Cool Edema: Yes Edema: LLE: 3+, RLE: 3+ Peripheral Pulses WNL: Yes Integumentary: Yes: Venous Stasis Changes Neurological: Yes: Alert, Oriented, Unsteady Gait, Weakness Psychiatric: Yes: Other - Other Data Labs, Other Data: CBC, BMP 03/30/17 05:30 03/30/17 05:30 INR, PTT INR 1.19 (0.82-1.09) H 03/30/17 05:30 Problem List - Problems (1) Leukocytosis Code(s): D72.829 - ELEVATED WHITE BLOOD CELL COUNT, UNSPECIFIED (2) MRSA (methicillin resistant Staphylococcus aureus) colonization Code(s): Z22.322 - CARRIER OR SUSPECTED CARRIER OF METHICILLIN RESIS STAPH (3) Thrombocytopenia Code(s): D69.6 - THROMBOCYTOPENIA, UNSPECIFIED (4) A-fib Assessment/Plan: Continue diltiazem CD for HR control. On IV heparin until INR 2-3 on warfarin. Code(s): I48.91 - UNSPECIFIED ATRIAL FIBRILLATION Qualifiers: (5) Abscess Code(s): L02.91 - CUTANEOUS ABSCESS, UNSPECIFIED (6) Anemia Code(s): D64.9 - ANEMIA, UNSPECIFIED (7) Anxiety and depression Code(s): F41.9 - ANXIETY DISORDER, UNSPECIFIED; F32.9 - MAJOR DEPRESSIVE DISORDER, SINGLE EPISODE, UNSPECIFIED (8) Cancer of ovary Code(s): C56.9 - MALIGNANT NEOPLASM OF UNSPECIFIED OVARY Qualifiers: (9) Cellulitis Code(s): L03.90 - CELLULITIS, UNSPECIFIED Qualifiers: Site of cellulitis: extremity Site of cellulitis of extremity: lower extremity Laterality: left Qualified Code(s): L03.116 - Cellulitis of left lower limb (10) Diabetes Code(s): E11.9 - TYPE 2 DIABETES MELLITUS WITHOUT COMPLICATIONS Qualifiers: Diabetes mellitus type: type 2 Diabetes mellitus complication status: without complication (11) HTN (hypertension) Code(s): I10 - ESSENTIAL (PRIMARY) HYPERTENSION Qualifiers: (12) Primary cancer of ovary with widespread metastatic disease Code(s): C56.9 - MALIGNANT NEOPLASM OF UNSPECIFIED OVARY; C80.0 - DISSEMINATED MALIGNANT NEOPLASM, UNSPECIFIED (13) SOB (shortness of breath) Code(s): R06.02 - SHORTNESS OF BREATH (14) Hypothyroid Code(s): E03.9 - HYPOTHYROIDISM, UNSPECIFIED (15) Lymphedema Code(s): I89.0 - LYMPHEDEMA, NOT ELSEWHERE CLASSIFIED
[2017-03-30] MEDS: LIDOCAINE 5% TOPICAL PATCH TP SCH (21:05)
[2017-03-30] MEDS: MONTELUKAST NA 10 MG TABLET PO SCH (21:35)
[2017-03-31] MEDS: traMADol HCL 50 MG TABLET PO PRN ×4 (01:12→19:34)
[2017-03-31] MEDS: fentaNYL 25mcg/hr PATCH.TD72 TD SCH (01:13)
[2017-03-31] MEDS: DEXAMETHASONE SOD PHOSPHATE 4 MG/1 ML VIAL IVPB SCH ×3 (01:13→18:31)
[2017-03-31] MEDS: HEPARIN NA (PORCINE) 5,000 UNITS/ML 1ML VIAL IVPUSH PRN ×3 (02:38→23:26)
[2017-03-31] MEDS: HEPARIN - 25,000 UNIT in SODIUM CHLORIDE 495 ML IV SCH ×5 (02:39→23:26)
[2017-03-31] MEDS: guaiFENesin/D-M SUGAR-FREE/ACLHOL-FREE 118 ML BOTTLE PO SCH ×4 (06:06→22:03)
[2017-03-31] MEDS: DOCUSATE SODIUM 100 MG CAPSULE (FP) PO SCH ×3 (06:06→21:31)
[2017-03-31] MEDS: LEVOTHYROXINE NA 75 MCG TABLET (FP) PO SCH (06:07)
[2017-03-31] MEDS: GABAPENTIN 100 MG CAPSULE (FP) PO SCH ×3 (06:12→21:34)
[2017-03-31] MEDS: INSULIN SLIDING SCALE (NOVOLOG) 1 VIAL SQ SCH ×4 (06:12→21:34)
[2017-03-31] MEDS: FENTANYL PATCH WASTE TD PRN (06:32)
[2017-03-31] MEDS: ALBUTEROL SO4 0.083% IH SOL 2.5 MG/3 ML VIAL.NEB. NEB SCH ×4 (06:45→23:03)
[2017-03-31 07:36] LABS: HEMATOCRIT 28.5 % (32.4-45.2); HEMOGLOBIN 9.5 GM/dL (10.7-15.3); MCH 32.8 pg (25.7-33.7); MCHC 33.3 g/dl (32.0-36.0); MEAN CELL VOLUME 98.3 fl (80-96); MEAN PLT VOLUME 9.8 fl (7.5-11.1); PLATELET COUNT 92 K/MM3 (134-434); RDW 24.2 % (11.6-15.6); WHITE BLOOD COUNT 11.3 K/mm3 (4.0-10.0)
[2017-03-31 08:06] LABS: INR 1.21 (0.82-1.09); PROTHROMBIN TIME (PATIENT) 13.7 SEC (9.98-11.88)
[2017-03-31 09:00] LABS: ALBUMIN 2.1 g/dl (3.4-5.0); ANION GAP 8 (8-16); BLOOD UREA NITROGEN 15 mg/dL (7-18); CALCIUM 8.5 mg/dL (8.5-10.1); CHLORIDE 95 mmol/L (98-107); CO2 25 mmol/L (21-32); CREATININE 0.9 mg/dL (0.55-1.02); GLUCOSE,RANDOM 195 mg/dL (74-106); POTASSIUM 4.9 mmol/L (3.5-5.1); SGOT/AST 66 U/L (15-37); SGPT/ALT 33 U/L (12-78); SODIUM 128 mmol/L (136-145)
[2017-03-31 09:02] LABS: ALK PHOS 210 U/L (45-117); BILIRUBIN,TOTAL 0.8 mg/dL (0.2-1.0); TOT PROT 5.8 g/dl (6.4-8.2)
--- NOTE | 2017-03-31 09:14 | PN ---
Progress Note (short form) - Note Progress Note: patient seen and examined. Sitting in chair. No new issues. comfortable. denies cp/sob Vital Signs Temp 97.7 F 03/31/17 05:24 Pulse 67 03/31/17 05:24 Resp 20 03/31/17 05:24 BP 127/78 03/31/17 05:24 Pulse Ox 100 03/30/17 21:00 Intake & Output 03/30/17 03/30/17 03/31/17 11:59 23:59 11:59 Intake Total 754 270 Balance 754 270 Weight 349 lb 0.3 oz Intake: IV 504 150 Normal Saline - 1,000 ml 150 @ 42 mls/hr IV ASDIR [facility] Rx#:[id number] platelets 504 Oral 250 120 Other: Voiding Method Toilet Toilet # Unmeasured Voids Void 3 1 2 Bowel Movement No No Weight Measurement Method Standing Scale Active Medications Acetaminophen (Tylenol -) 500 mg PO Q4H PRN PRN Reason: FEVER OR PAIN Last Admin: 03/30/17 23:09 Dose: 500 mg Albuterol Sulfate (Ventolin 0.083% Nebulizer Soln -) 1 amp NEB Q6H [facility] Last Admin: 03/31/17 06:45 Dose: 1 amp Bupropion HCl (Wellbutrin Xl -) 150 mg PO DAILY [facility] Last Admin: 03/30/17 10:50 Dose: 150 mg Dexamethasone Sodium Phosphate (Decadron Injection -) 4 mg IVPB Q8H-IV [facility] Last Admin: 03/31/17 01:13 Dose: 4 mg Diltiazem HCl (Cardizem Cd -) 300 mg PO DAILY [facility] Last Admin: 03/30/17 10:48 Dose: 300 mg Docusate Sodium (Colace -) 100 mg PO TID [facility] Last Admin: 03/31/17 06:06 Dose: 100 mg Fentanyl (Duragesic 25mcg Patch -) 1 patch TD Q72H [facility] Last Admin: 03/31/17 01:13 Dose: 1 patch Gabapentin (Neurontin -) 100 mg PO TID [facility] Last Admin: 03/31/17 06:12 Dose: Not Given Guaifenesin (Diabetic Tussin Dm -) 10 ml PO Q6H [facility] Last Admin: 03/31/17 06:06 Dose: 10 ml Heparin Sodium (Porcine) (Heparin -) 1,000 unit IVPUSH PRN PRN PRN Reason: Heparin Heparin Sodium (Porcine) (Heparin -) 5,000 unit IVPUSH PRN PRN PRN Reason: Heparin Last Admin: 03/31/17 02:38 Dose: 5,000 unit Heparin Sodium (Porcine) 25, (000 unit/ Sodium Chloride) 500 mls @ 20 mls/hr IV TITR [facility]; 1,000 UNIT/HR PRN Reason: Protocol Last Admin: 03/31/17 02:39 Dose: 1,000 unit/hr, 20 mls/hr Insulin Aspart (Novolog Vial Sliding Scale -) 1 vial SQ ACHS [facility] PRN Reason: Protocol Last Admin: 03/31/17 06:12 Dose: 4 unit Levothyroxine Sodium (Synthroid -) 75 mcg PO DAILY@0700 [facility] Last Admin: 03/31/17 06:07 Dose: 75 mcg Lidocaine (Lidoderm Patch -) 1 patch TP HS [facility] Last Admin: 03/30/17 21:05 Dose: Not Given Miscellaneous (Duragesic Patch Waste) 1 each TD PRN PRN Last Admin: 03/31/17 06:32 Dose: 1 each Miscellaneous (Lidoderm Patch Removal) 1 each MC DAILY [facility] Last Admin: 03/30/17 10:59 Dose: Not Given Montelukast Sodium (Singulair -) 10 mg PO HS [facility] Last Admin: 03/30/17 21:35 Dose: 10 mg Ondansetron HCl (Zofran Injection) 4 mg IVPB Q8H PRN PRN Reason: NAUSEA Last Admin: 03/26/17 12:54 Dose: 4 mg Polyethylene Glycol (Miralax (For Daily Use) -) 17 gm PO DAILY [facility] Last Admin: 03/30/17 10:59 Dose: Not Given Potassium Chloride (K-Dur -) 20 meq PO BID [facility] Last Admin: 03/30/17 21:35 Dose: 20 meq Senna (Senna -) 2 tab PO HS PRN PRN Reason: CONSTIPATION Last Admin: 03/30/17 05:29 Dose: 2 tab Tiotropium [place] (Spiriva -) 1 puff IH DAILY [facility] Last Admin: 03/30/17 10:49 Dose: 1 puff Tramadol HCl (Ultram -) 75 mg PO Q6H PRN PRN Reason: PAIN Last Admin: 03/31/17 08:46 Dose: 75 mg Warfarin Sodium (Coumadin -) 3 mg PO DAILY@1800 [facility] Last Admin: 03/30/17 17:34 Dose: 3 mg CBC BMP 03/31/17 06:00 INR, PTT INR 1.21 (0.82-1.09) H 03/31/17 06:00 cmp- pending. Physical Examination Constitutional: Yes: alert and awake. Eyes: Yes: Conjunctiva Clear HENT: Yes: Atraumatic/ throat - clear. Neck: Yes: Supple, Trachea Midline. no jvd Cardiovascular: Yes: Pulse Irregular, S1, S2 Respiratory: Yes: diminished at bases. Gastrointestinal: Yes: Normal Bowel Sounds, Abdomen, Obese. Neurological: Yes: Alert, Oriented x 3 Psychiatric: Yes: Alert, Oriented Ext-Chronic venous stasis of legs Imaging - Results X-ray: Noted CT scan reviewed and noted--- progression of disease Assessment/Plan Metastatic ovarian ca-- worsening . Thrombocytopenia paroxysmal afib obesity depression hyponatremia- stable RT planned-- likely today. platletes improved continue present care. monitor inr heaprin + coumadin till inr is therapeutic. will follow. Problem List - Problems (1) Thrombocytopenia Code(s): D69.6 - THROMBOCYTOPENIA, UNSPECIFIED (2) A-fib Code(s): I48.91 - UNSPECIFIED ATRIAL FIBRILLATION Qualifiers: (3) Anemia Code(s): D64.9 - ANEMIA, UNSPECIFIED (4) Diabetes Code(s): E11.9 - TYPE 2 DIABETES MELLITUS WITHOUT COMPLICATIONS Qualifiers: Diabetes mellitus type: type 2 Diabetes mellitus complication status: without complication (5) Hypoalbuminemia Code(s): E88.09 - OTH DISORDERS OF PLASMA-PROTEIN METABOLISM, NEC (6) Primary cancer of ovary with widespread metastatic disease Code(s): C56.9 - MALIGNANT NEOPLASM OF UNSPECIFIED OVARY; C80.0 - DISSEMINATED MALIGNANT NEOPLASM, UNSPECIFIED
[2017-03-31 09:42] LABS: ANISOCYTOSIS 3+; MACROCYTOSIS 2+; TEAR DROP CELLS 1+
[2017-03-31] MEDS: POLYETHYLENE GLYCOL 3350 119 GM BTL PO SCH (10:14)
[2017-03-31] MEDS: POTASSIUM CHLORIDE TABS 20 MEQ TABLET.ER (FP) PO SCH ×2 (10:14→21:31)
[2017-03-31] MEDS: TIOTROPIUM BROMIDE 18 MCG/INH (DEVICE W/ 5 CAPSULES) IH SCH (10:14)
[2017-03-31] MEDS: LIDOCAINE PATCH REMOVAL MC SCH (10:15)
[2017-03-31 10:21] LABS: PLATELET ESTIMATE DECREASED
[2017-03-31] MEDS ORDERED: INSULIN (NOVOLOG) ASPART 100 UNITS/ML 10ML VIAL ONE (11:50)
--- NOTE | 2017-03-31 12:37 | PN ---
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 Pt presented to the ED after outpt labs reveled thrombocytopenia to 39k. Coumadin was held and is still on hold, no active bleed noted. Pt received 1 unit platelets and is being admitted for further transfusions. Of note, pt was climbing the stairs, when she reached the final step her leg went weak and then pivoted around. She now has some eccyhymosis to her lateral side, slip was witnessed by daughter and EMS worker, she did not hit her head, xrays pending. - Current Medication List Current Medications: Active Medications Acetaminophen (Tylenol -) 500 mg PO Q4H PRN PRN Reason: FEVER OR PAIN Last Admin: 03/30/17 23:09 Dose: 500 mg Albuterol Sulfate (Ventolin 0.083% Nebulizer Soln -) 1 amp NEB Q6H [facility] Last Admin: 03/31/17 10:04 Dose: 1 amp Bupropion HCl (Wellbutrin Xl -) 150 mg PO DAILY [facility] Last Admin: 03/31/17 10:14 Dose: 150 mg Dexamethasone Sodium Phosphate (Decadron Injection -) 4 mg IVPB Q8H-IV [facility] Last Admin: 03/31/17 10:14 Dose: 4 mg Diltiazem HCl (Cardizem Cd -) 300 mg PO DAILY [facility] Last Admin: 03/31/17 10:15 Dose: 300 mg Docusate Sodium (Colace -) 100 mg PO TID [facility] Last Admin: 03/31/17 06:06 Dose: 100 mg Fentanyl (Duragesic 25mcg Patch -) 1 patch TD Q72H [facility] Last Admin: 03/31/17 01:13 Dose: 1 patch Gabapentin (Neurontin -) 100 mg PO TID [facility] Last Admin: 03/31/17 06:12 Dose: Not Given Guaifenesin (Diabetic Tussin Dm -) 10 ml PO Q6H [facility] Last Admin: 03/31/17 10:14 Dose: 10 ml Heparin Sodium (Porcine) (Heparin -) 1,000 unit IVPUSH PRN PRN PRN Reason: Heparin Heparin Sodium (Porcine) (Heparin -) 5,000 unit IVPUSH PRN PRN PRN Reason: Heparin Last Admin: 03/31/17 02:38 Dose: 5,000 unit Heparin Sodium (Porcine) 25, (000 unit/ Sodium Chloride) 500 mls @ 20 mls/hr IV TITR [facility]; 1,000 UNIT/HR PRN Reason: Protocol Last Admin: 03/31/17 02:39 Dose: 1,000 unit/hr, 20 mls/hr Insulin Aspart (Novolog Vial Sliding Scale -) 1 vial SQ ACHS [facility] PRN Reason: Protocol Last Admin: 03/31/17 12:00 Dose: 4 unit Levothyroxine Sodium (Synthroid -) 75 mcg PO DAILY@0700 [facility] Last Admin: 03/31/17 06:07 Dose: 75 mcg Lidocaine (Lidoderm Patch -) 1 patch TP HS [facility] Last Admin: 03/30/17 21:05 Dose: Not Given Miscellaneous (Duragesic Patch Waste) 1 each TD PRN PRN Last Admin: 03/31/17 06:32 Dose: 1 each Miscellaneous (Lidoderm Patch Removal) 1 each MC DAILY [facility] Last Admin: 03/31/17 10:15 Dose: Not Given Montelukast Sodium (Singulair -) 10 mg PO HS [facility] Last Admin: 03/30/17 21:35 Dose: 10 mg Ondansetron HCl (Zofran Injection) 4 mg IVPB Q8H PRN PRN Reason: NAUSEA Last Admin: 03/26/17 12:54 Dose: 4 mg Polyethylene Glycol (Miralax (For Daily Use) -) 17 gm PO DAILY [facility] Last Admin: 03/31/17 10:14 Dose: Not Given Potassium Chloride (K-Dur -) 20 meq PO BID [facility] Last Admin: 03/31/17 10:14 Dose: 20 meq Senna (Senna -) 2 tab PO HS PRN PRN Reason: CONSTIPATION Last Admin: 03/30/17 05:29 Dose: 2 tab Tiotropium [place] (Spiriva -) 1 puff IH DAILY [facility] Last Admin: 03/31/17 10:14 Dose: 1 puff Tramadol HCl (Ultram -) 75 mg PO Q6H PRN PRN Reason: PAIN Last Admin: 03/31/17 08:46 Dose: 75 mg Warfarin Sodium (Coumadin -) 3 mg PO DAILY@1800 [facility] Last Admin: 03/30/17 17:34 Dose: 3 mg - Objective Vital Signs: Vital Signs Temperature 97.4 F L 03/31/17 09:17 Pulse Rate 88 03/31/17 12:04 Respiratory Rate 20 03/31/17 09:17 Blood Pressure 104/59 03/31/17 09:17 O2 Sat by Pulse Oximetry (%) 100 03/31/17 12:04 Eyes: Yes: WNL, Conjunctiva Clear, EOM Intact HENT: Yes: WNL, Atraumatic, Normocephalic Neck: Yes: WNL, Supple, Trachea Midline Cardiovascular: Yes: Pulse Irregular, S1, S2 Respiratory: Yes: WNL, Regular, CTA Bilaterally Gastrointestinal: Yes: WNL, Normal Bowel Sounds Genitourinary: Yes: WNL Musculoskeletal: Yes: WNL Extremities: Yes: WNL Edema: Yes Edema: LLE: 3+, RLE: 3+ Integumentary: Yes: WNL Neurological: Yes: WNL, Alert, Oriented ...Motor Strength: WNL Psychiatric: Yes: WNL Labs: CBC, BMP 03/31/17 06:00 03/31/17 06:00 INR, PTT INR 1.21 (0.82-1.09) H 03/31/17 06:00 Assessment/Plan - Problems (1) Leukocytosis Code(s): D72.829 - ELEVATED WHITE BLOOD CELL COUNT, UNSPECIFIED (2) MRSA (methicillin resistant Staphylococcus aureus) colonization Code(s): Z22.322 - CARRIER OR SUSPECTED CARRIER OF METHICILLIN RESIS STAPH (3) Thrombocytopenia Code(s): D69.6 - THROMBOCYTOPENIA, UNSPECIFIED (4) A-fib Assessment/Plan: Continue diltiazem CD for HR control. On IV heparin until INR 2-3 on warfarin. Code(s): I48.91 - UNSPECIFIED ATRIAL FIBRILLATION Qualifiers: (5) Abscess Code(s): L02.91 - CUTANEOUS ABSCESS, UNSPECIFIED (6) Anemia Code(s): D64.9 - ANEMIA, UNSPECIFIED (7) Anxiety and depression Code(s): F41.9 - ANXIETY DISORDER, UNSPECIFIED; F32.9 - MAJOR DEPRESSIVE DISORDER, SINGLE EPISODE, UNSPECIFIED (8) Cancer of ovary Code(s): C56.9 - MALIGNANT NEOPLASM OF UNSPECIFIED OVARY Qualifiers: (9) Cellulitis Code(s): L03.90 - CELLULITIS, UNSPECIFIED Qualifiers: Site of cellulitis: extremity Site of cellulitis of extremity: lower extremity Laterality: left Qualified Code(s): L03.116 - Cellulitis of left lower limb (10) Diabetes Code(s): E11.9 - TYPE 2 DIABETES MELLITUS WITHOUT COMPLICATIONS Qualifiers: Diabetes mellitus type: type 2 Diabetes mellitus complication status: without complication (11) HTN (hypertension) Code(s): I10 - ESSENTIAL (PRIMARY) HYPERTENSION Qualifiers: (12) Primary cancer of ovary with widespread metastatic disease Code(s): C56.9 - MALIGNANT NEOPLASM OF UNSPECIFIED OVARY; C80.0 - DISSEMINATED MALIGNANT NEOPLASM, UNSPECIFIED (13) SOB (shortness of breath) Code(s): R06.02 - SHORTNESS OF BREATH (14) Hypothyroid Code(s): E03.9 - HYPOTHYROIDISM, UNSPECIFIED (15) Lymphedema Code(s): I89.0 - LYMPHEDEMA, NOT ELSEWHERE CLASSIFIED
[2017-03-31] MEDS: ACETAMINOPHEN 500 MG TABLET (FP) PO PRN (13:27)
--- NOTE | 2017-03-31 15:55 | PN ---
Progress Note (short form) - Note Progress Note: Radiation Oncology Pt came for simulation CT scan today. Tolerated positioning. Plts increased to 92k. Will proceed with RT to T10 epidural tumor tomorrow. Consider low dose decadron. D/C planning once pain controlled.
[2017-03-31] MEDS: WARFARIN NA 3 MG TABLET PO SCH (18:31)
--- NOTE | 2017-03-31 18:50 | PN ---
Progress Note (short form) - Note Progress Note: Renal follow up for SURY Pt seen and examined at the bedside awake and alert + SOB and congestion feels as if legs are getting heavier no confusion, lethargy or weakness Vital Signs Temperature 97.9 F 03/31/17 18:29 Pulse Rate 107 H 03/31/17 18:29 Respiratory Rate 18 03/31/17 18:29 Blood Pressure 101/69 03/31/17 18:29 O2 Sat by Pulse Oximetry (%) 100 03/31/17 12:04 Intake & Output 03/28/17 03/29/17 03/30/17 03/31/17 23:59 23:59 23:59 23:59 Intake Total 293 521 3043 966 Balance 732 458 8563 966 Weight 152.886 kg 154.131 kg 158.312 kg NAD RRRR dry MM CTA Obese Abd 3+ edema in le CBC, BMP 03/31/17 06:00 03/31/17 06:00 Current Medications Acetaminophen (Tylenol -) 500 mg PO Q4H PRN PRN Reason: FEVER OR PAIN Last Admin: 03/31/17 13:27 Dose: 500 mg Albuterol Sulfate (Ventolin 0.083% Nebulizer Soln -) 1 amp NEB QIDR [facility] Last Admin: 03/31/17 16:45 Dose: 1 amp Bupropion HCl (Wellbutrin Xl -) 150 mg PO DAILY [facility] Last Admin: 03/31/17 10:14 Dose: 150 mg Dexamethasone Sodium Phosphate (Decadron Injection -) 4 mg IVPB Q8H-IV [facility] Last Admin: 03/31/17 18:31 Dose: 4 mg Diltiazem HCl (Cardizem Cd -) 300 mg PO DAILY [facility] Last Admin: 03/31/17 10:15 Dose: 300 mg Docusate Sodium (Colace -) 100 mg PO TID [facility] Last Admin: 03/31/17 13:53 Dose: Not Given Fentanyl (Duragesic 25mcg Patch -) 1 patch TD Q72H [facility] Last Admin: 03/31/17 01:13 Dose: 1 patch Gabapentin (Neurontin -) 100 mg PO TID [facility] Last Admin: 03/31/17 13:53 Dose: Not Given Guaifenesin (Diabetic Tussin Dm -) 10 ml PO Q6H [facility] Last Admin: 12/11/17 16:46 Dose: 10 ml Heparin Sodium (Porcine) (Heparin -) 1,000 unit IVPUSH PRN PRN PRN Reason: Heparin Last Admin: 03/31/17 16:10 Dose: 1,000 unit Heparin Sodium (Porcine) (Heparin -) 5,000 unit IVPUSH PRN PRN PRN Reason: Heparin Last Admin: 03/31/17 02:38 Dose: 5,000 unit Heparin Sodium (Porcine) 25, (000 unit/ Sodium Chloride) 500 mls @ 20 mls/hr IV TITR [facility]; 1,000 UNIT/HR PRN Reason: Protocol Last Admin: 03/31/17 16:12 Dose: Not Given Insulin Aspart (Novolog Vial Sliding Scale -) 1 vial SQ ACHS [facility] PRN Reason: Protocol Last Admin: 03/31/17 16:46 Dose: 4 unit Levothyroxine Sodium (Synthroid -) 75 mcg PO DAILY@0700 [facility] Last Admin: 03/31/17 06:07 Dose: 75 mcg Lidocaine (Lidoderm Patch -) 1 patch TP HS [facility] Last Admin: 03/30/17 21:05 Dose: Not Given Miscellaneous (Duragesic Patch Waste) 1 each TD PRN PRN Last Admin: 03/31/17 06:32 Dose: 1 each Miscellaneous (Lidoderm Patch Removal) 1 each MC DAILY [facility] Last Admin: 03/31/17 10:15 Dose: Not Given Montelukast Sodium (Singulair -) 10 mg PO HS [facility] Last Admin: 03/30/17 21:35 Dose: 10 mg Ondansetron HCl (Zofran Injection) 4 mg IVPB Q8H PRN PRN Reason: NAUSEA Last Admin: 03/26/17 12:54 Dose: 4 mg Polyethylene Glycol (Miralax (For Daily Use) -) 17 gm PO DAILY [facility] Last Admin: 03/31/17 10:14 Dose: Not Given Potassium Chloride (K-Dur -) 20 meq PO BID [facility] Last Admin: 03/31/17 10:14 Dose: 20 meq Senna (Senna -) 2 tab PO HS PRN PRN Reason: CONSTIPATION Last Admin: 03/30/17 05:29 Dose: 2 tab Tiotropium [place] (Spiriva -) 1 puff IH DAILY [facility] Last Admin: 03/31/17 10:14 Dose: 1 puff Tramadol HCl (Ultram -) 75 mg PO Q6H PRN PRN Reason: PAIN Last Admin: 03/31/17 19:34 Dose: 75 mg Warfarin Sodium (Coumadin -) 3 mg PO DAILY@1800 [facility] Last Admin: 03/31/17 18:31 Dose: 3 mg 61 year old woman with PMhx of Metastatic Ovarian Ca (lung, Liver) on Chemo, Hypertension, DM Type 2, Chronic Lymphedema, Obesity presented with thrombocytopenia and found to have hyponatremia. #Hypoosmolar Hyponatremia Repeat urine studies show high urine OSM and urine Na > 20 indicative of ADH release continue fluid restriction start Lasix, will given 40mg IV x 1 tonight and trend Na into the morning no indication for 3% saline Thank you Will follow Mirza Zuleta DO
[2017-03-31] MEDS ORDERED: FUROSEMIDE 40 MG/4 ML INJECTABLE VIAL IVPUSH ONE (19:00)
[2017-03-31] MEDS ORDERED: PT OWN MED DRAWER 7, Y5N ONE (20:57)
[2017-03-31] MEDS: MONTELUKAST NA 10 MG TABLET PO SCH (21:32)
[2017-03-31] MEDS: LIDOCAINE 5% TOPICAL PATCH TP SCH (21:34)
[2017-03-31] MEDS: SENNOSIDES 8.6MG TABLET (FP) PO PRN (22:05)
--- NOTE | 2017-03-31 22:16 | PN ---
Progress Note (short form) - Note Progress Note: Patient seen and examined Has some cough/SOB/back pain feels Lt. leg is weaker Last Vital Signs Temp Pulse Resp BP Pulse Ox 97.9 F 107 H 18 101/69 100 03/31/17 18:29 03/31/17 18:29 03/31/17 18:29 03/31/17 18:29 03/31/17 12:04 Cor: RSR, No murmurs, No gallops Lungs: Clear to P&A Abd: Soft, Normal bowel sounds, No organomegaly Ext:No significant edema Abnormal Lab Results 03/31/17 03/31/17 03/31/17 06:00 06:00 06:00 WBC 11.3 H RBC 2.90 L Hgb 9.5 L Hct 28.5 L MCV 98.3 H RDW 24.2 H Plt Count 92 L D Neutrophils % (Manual) 92.9 H* D Lymphocytes % (Manual) 2.0 L D Monocytes % (Manual) 3 L PT with INR 13.70 H INR 1.21 H PTT (Actin FS) Sodium 128 L Chloride 95 L Random Glucose 195 H D AST 66 H Alkaline Phosphatase 210 H Total Protein 5.8 L Albumin 2.1 L 03/31/17 03/31/17 03/31/17 06:00 09:49 21:45 WBC RBC Hgb Hct MCV RDW Plt Count Neutrophils % (Manual) Lymphocytes % (Manual) Monocytes % (Manual) PT with INR INR PTT (Actin FS) 56.7 H D 40.7 H 37.3 H Sodium Chloride Random Glucose AST Alkaline Phosphatase Total Protein Albumin Active Medications Generic Name Dose Route Start Last Admin Trade Name Leonidq PRN Reason Stop Dose Admin Acetaminophen 500 mg 03/22/17 18:38 03/31/17 13:27 Tylenol - PO 500 mg Q4H PRN Administration FEVER OR PAIN Albuterol Sulfate 1 amp 03/31/17 18:00 03/31/17 23:03 Ventolin 0.083% Nebulizer Soln - NEB 1 amp QIDR [facility] Administration Bupropion HCl 150 mg 03/23/17 10:00 03/31/17 10:14 Wellbutrin Xl - PO 150 mg DAILY [facility] Administration Dexamethasone Sodium Phosphate 4 mg 03/30/17 18:00 03/31/17 18:31 Decadron Injection - IVPB 4 mg Q8H-IV [facility] Administration Diltiazem HCl 300 mg 03/23/17 10:00 03/31/17 10:15 Cardizem Cd - PO 300 mg DAILY [facility] Administration Docusate Sodium 100 mg 03/26/17 22:00 03/31/17 21:31 Colace - PO 100 mg TID [facility] Administration Fentanyl 1 patch 03/25/17 00:05 03/31/17 01:13 Duragesic 25mcg Patch - TD 1 patch Q72H [facility] Administration Gabapentin 100 mg 03/29/17 22:00 03/31/17 21:34 Neurontin - PO Not Given TID [facility] Guaifenesin 10 ml 03/30/17 17:00 03/31/17 22:03 Diabetic Tussin Dm - PO 10 ml Q6H [facility] Administration Heparin Sodium (Porcine) 1,000 unit 03/30/17 14:39 03/31/17 16:10 Heparin - IVPUSH 1,000 unit PRN PRN Administration Heparin Heparin Sodium (Porcine) 5,000 unit 03/30/17 14:39 03/31/17 02:38 Heparin - IVPUSH 5,000 unit PRN PRN Administration Heparin Heparin Sodium (Porcine) 25, 500 mls @ 20 mls/hr 03/30/17 14:45 03/31/17 21: 36 000 unit/ Sodium Chloride IV 1,250 unit/hr TITR [facility] 25 mls/hr Protocol Administration 1,000 UNIT/HR Insulin Aspart 1 vial 03/24/17 18:16 03/31/17 21:34 Novolog Vial Sliding Scale - SQ Not Given ACHS [facility] Protocol Levothyroxine Sodium 75 mcg 03/23/17 07:00 03/31/17 06:07 Synthroid - PO 75 mcg DAILY@0700 [facility] Administration Lidocaine 1 patch 03/25/17 00:15 03/31/17 21:34 Lidoderm Patch - TP Not Given HS [facility] Miscellaneous 1 each 03/25/17 00:05 03/31/17 06:32 Duragesic Patch Waste TD 1 each PRN PRN Administration Miscellaneous 1 each 03/25/17 10:00 03/31/17 10:15 Lidoderm Patch Removal MC Not Given DAILY [facility] Montelukast Sodium 10 mg 03/22/17 22:00 03/31/17 21:32 Singulair - PO 10 mg HS [facility] Administration Ondansetron HCl 4 mg 03/23/17 12:10 03/26/17 12:54 Zofran Injection IVPB 4 mg Q8H PRN Administration NAUSEA Polyethylene Glycol 17 gm 03/23/17 10:00 03/31/17 10:14 Miralax (For Daily Use) - PO Not Given DAILY [facility] Potassium Chloride 20 meq 03/23/17 10:00 03/31/17 21:31 K-Dur - PO 20 meq BID [facility] Administration Senna 2 tab 03/22/17 18:13 03/31/17 22:05 Senna - PO 2 tab HS PRN Administration CONSTIPATION Tiotropium [place] 1 puff 03/23/17 10:00 03/31/17 10:14 Spiriva - IH 1 puff DAILY [facility] Administration Tramadol HCl 75 mg 03/28/17 22:59 03/31/17 19:34 Ultram - PO 75 mg Q6H PRN Administration PAIN Warfarin Sodium 3 mg 03/29/17 18:00 03/31/17 18:31 Coumadin - PO 3 mg DAILY@1800 [facility] Administration A/P 61 y/o patient with metastatic high grade mullerian cancer on gemzar Comes in with thrombocytopenia Transfused monodonor platelets Transfused PRBCs CT scans show progressive diseasse New T10 met/epidural disease pain control Platelets gradually improving --[id number] today. Resume coumadin.heparin bridge without bolus. Cardiology follow up Cough-- nebulizer treatments/robitusssin T10 metastases-- for RT will start dexamethasone neuro consult Hyponatemia-- will discuss with renal SIADH ? resume lasix Pedal edema--will check duplex
[2017-04-01] MEDS: traMADol HCL 50 MG TABLET PO PRN ×3 (01:34→17:27)
[2017-04-01] MEDS: DEXAMETHASONE SOD PHOSPHATE 4 MG/1 ML VIAL IVPB SCH ×3 (01:35→17:25)
[2017-04-01] MEDS: guaiFENesin/D-M SUGAR-FREE/ACLHOL-FREE 118 ML BOTTLE PO SCH ×4 (06:15→23:58)
[2017-04-01] MEDS: DOCUSATE SODIUM 100 MG CAPSULE (FP) PO SCH ×3 (06:15→21:30)
[2017-04-01] MEDS: LEVOTHYROXINE NA 75 MCG TABLET (FP) PO SCH (06:16)
[2017-04-01] MEDS: GABAPENTIN 100 MG CAPSULE (FP) PO SCH ×3 (06:16→21:31)
[2017-04-01] MEDS: INSULIN SLIDING SCALE (NOVOLOG) 1 VIAL SQ SCH ×4 (06:16→21:47)
[2017-04-01] MEDS: ALBUTEROL SO4 0.083% IH SOL 2.5 MG/3 ML VIAL.NEB. NEB SCH ×4 (06:35→23:10)
[2017-04-01 07:50] LABS: HEMATOCRIT 28.7 % (32.4-45.2); HEMOGLOBIN 9.4 GM/dL (10.7-15.3); MCH 32.2 pg (25.7-33.7); MCHC 32.8 g/dl (32.0-36.0); MEAN CELL VOLUME 97.9 fl (80-96); MEAN PLT VOLUME 10.3 fl (7.5-11.1); PLATELET COUNT 160 K/MM3 (134-434); RBC 2.93 M/mm3 (3.60-5.2); RDW 24.1 % (11.6-15.6); WHITE BLOOD COUNT 16.1 K/mm3 (4.0-10.0)
[2017-04-01 08:13] LABS: INR 1.2 (0.82-1.09); PROTHROMBIN TIME (PATIENT) 13.6 SEC (9.98-11.88)
--- NOTE | 2017-04-01 08:27 | PN ---
Progress Note (short form) - Note Progress Note: patient seen in her room today morning dry cough anxious related to her Radiation TX TACHY Sitting in the chair duplex LE pending no chest pain, sob Vital Signs Temp 97.4 F L 04/01/17 06:00 Pulse 121 H 04/01/17 06:00 Resp 20 04/01/17 06:00 BP 131/80 04/01/17 06:00 Pulse Ox 100 03/31/17 21:00 Intake & Output 03/31/17 03/31/17 04/01/17 11:59 23:59 11:59 Intake Total 240 966 224 Balance 240 966 224 Weight 345 lb 6.4 oz Intake: IV 376 224 Heparin - 25,000 Unit In 376 224 Normal Saline - 495 ml @ 1,000 UNIT/HR 20 mls/hr IV TITR [facility] Rx#: [id number] Oral 590 Oral Supplement 240 Other: Voiding Method Toilet Toilet Toilet # Unmeasured Voids Void 2 1 Bowel Movement No No Weight Measurement Method Chair Scale Active Medications Acetaminophen (Tylenol -) 500 mg PO Q4H PRN PRN Reason: FEVER OR PAIN Last Admin: 03/31/17 13:27 Dose: 500 mg Albuterol Sulfate (Ventolin 0.083% Nebulizer Soln -) 1 amp NEB QIDR [facility] Last Admin: 04/01/17 06:35 Dose: 1 amp Bupropion HCl (Wellbutrin Xl -) 150 mg PO DAILY [facility] Last Admin: 03/31/17 10:14 Dose: 150 mg Dexamethasone Sodium Phosphate (Decadron Injection -) 4 mg IVPB Q8H-IV [facility] Last Admin: 04/01/17 01:35 Dose: 4 mg Diltiazem HCl (Cardizem Cd -) 300 mg PO DAILY [facility] Last Admin: 03/31/17 10:15 Dose: 300 mg Docusate Sodium (Colace -) 100 mg PO TID [facility] Last Admin: 04/01/17 06:15 Dose: 100 mg Gabapentin (Neurontin -) 100 mg PO TID [facility] Last Admin: 04/01/17 06:16 Dose: Not Given Guaifenesin (Diabetic Tussin Dm -) 10 ml PO Q6H [facility] Last Admin: 04/01/17 06:15 Dose: 10 ml Heparin Sodium (Porcine) (Heparin -) 1,000 unit IVPUSH PRN PRN PRN Reason: Heparin Last Admin: 03/31/17 16:10 Dose: 1,000 unit Heparin Sodium (Porcine) (Heparin -) 5,000 unit IVPUSH PRN PRN PRN Reason: Heparin Last Admin: 03/31/17 23:26 Dose: 5,000 unit Heparin Sodium (Porcine) 25, (000 unit/ Sodium Chloride) 500 mls @ 20 mls/hr IV TITR [facility]; 1,000 UNIT/HR PRN Reason: Protocol Last Admin: 03/31/17 23:26 Dose: 1,400 unit/hr, 28 mls/hr Insulin Aspart (Novolog Vial Sliding Scale -) 1 vial SQ ACHS [facility] PRN Reason: Protocol Last Admin: 04/01/17 06:16 Dose: 4 unit Levothyroxine Sodium (Synthroid -) 75 mcg PO DAILY@0700 [facility] Last Admin: 04/01/17 06:16 Dose: 75 mcg Lidocaine (Lidoderm Patch -) 1 patch TP [facility] Last Admin: 03/31/17 21:34 Dose: Not Given Miscellaneous (Duragesic Patch Waste) 1 each TD PRN PRN Last Admin: 03/31/17 06:32 Dose: 1 each Miscellaneous (Lidoderm Patch Removal) 1 each MC DAILY [facility] Last Admin: 03/31/17 10:15 Dose: Not Given Montelukast Sodium (Singulair -) 10 mg PO HS [facility] Last Admin: 03/31/17 21:32 Dose: 10 mg Ondansetron HCl (Zofran Injection) 4 mg IVPB Q8H PRN PRN Reason: NAUSEA Last Admin: 03/26/17 12:54 Dose: 4 mg Polyethylene Glycol (Miralax (For Daily Use) -) 17 gm PO DAILY [facility] Last Admin: 03/31/17 10:14 Dose: Not Given Potassium Chloride (K-Dur -) 20 meq PO BID [facility] Last Admin: 03/31/17 21:31 Dose: 20 meq Senna (Senna -) 2 tab PO HS PRN PRN Reason: CONSTIPATION Last Admin: 03/31/17 22:05 Dose: 2 tab Tiotropium [place] (Spiriva -) 1 puff IH DAILY [facility] Last Admin: 03/31/17 10:14 Dose: 1 puff Tramadol HCl (Ultram -) 75 mg PO Q6H PRN PRN Reason: PAIN Last Admin: 04/01/17 01:34 Dose: 75 mg Warfarin Sodium (Coumadin -) 3 mg PO DAILY@1800 [facility] Last Admin: 03/31/17 18:31 Dose: 3 mg Laboratory Results - last 24 hr 03/31/17 03/31/17 03/31/17 06:00 06:00 06:00 WBC RBC Hgb Hct MCV MCH MCHC RDW Plt Count MPV Total Counted 99 Neutrophils % Neutrophils % (Manual) 92.9 H* D Band Neutrophils % 2.0 Lymphocytes % Lymphocytes % (Manual) 2.0 L D Monocytes % (Manual) 3 L Basophils % (Manual) 0.0 Myelocytes % (Man) 0 D Metamyelocytes 0 D Hypochromia 0 Platelet Estimate Decreased Platelet Comment Moderate large plts Polychromasia 1+ Poikilocytosis 0 Anisocytosis 3+ Microcytosis 1+ Macrocytosis 2+ Tear Drop Cells 1+ PT with INR 13.70 H INR 1.21 H PTT (Actin FS) Sodium 128 L Potassium 4.9 Chloride 95 L Carbon Dioxide 25 Anion Gap 8 BUN 15 Creatinine 0.9 Creat Clearance w eGFR > 60 POC Glucometer Random Glucose 195 H D Calcium 8.5 Total Bilirubin 0.8 AST 66 H ALT 33 Alkaline Phosphatase 210 H Total Protein 5.8 L Albumin 2.1 L 03/31/17 03/31/17 03/31/17 06:00 09:49 11:54 WBC RBC Hgb Hct MCV MCH MCHC RDW Plt Count MPV Total Counted Neutrophils % Neutrophils % (Manual) Band Neutrophils % Lymphocytes % Lymphocytes % (Manual) Monocytes % (Manual) Basophils % (Manual) Myelocytes % (Man) Metamyelocytes Hypochromia Platelet Estimate Platelet Comment Polychromasia Poikilocytosis Anisocytosis Microcytosis Macrocytosis Tear Drop Cells PT with INR INR PTT (Actin FS) 56.7 H D 40.7 H Sodium Potassium Chloride Carbon Dioxide Anion Gap BUN Creatinine Creat Clearance w eGFR POC Glucometer 211 Random Glucose Calcium Total Bilirubin AST ALT Alkaline Phosphatase Total Protein Albumin 03/31/17 03/31/17 03/31/17 16:44 21:20 21:45 WBC RBC Hgb Hct MCV MCH MCHC RDW Plt Count MPV Total Counted Neutrophils % Neutrophils % (Manual) Band Neutrophils % Lymphocytes % Lymphocytes % (Manual) Monocytes % (Manual) Basophils % (Manual) Myelocytes % (Man) Metamyelocytes Hypochromia Platelet Estimate Platelet Comment Polychromasia Poikilocytosis Anisocytosis Microcytosis Macrocytosis Tear Drop Cells PT with INR INR PTT (Actin FS) 37.3 H Sodium Potassium Chloride Carbon Dioxide Anion Gap BUN Creatinine Creat Clearance w eGFR POC Glucometer 202 197 Random Glucose Calcium Total Bilirubin AST ALT Alkaline Phosphatase Total Protein Albumin 04/01/17 04/01/17 06:00 06:14 WBC 16.1 H D RBC 2.93 L Hgb 9.4 L Hct 28.7 L MCV 97.9 H MCH 32.2 MCHC 32.8 RDW 24.1 H Plt Count 160 D MPV 10.3 Total Counted Neutrophils % No Result Required. Neutrophils % (Manual) Band Neutrophils % Lymphocytes % No Result Required. Lymphocytes % (Manual) Monocytes % (Manual) Basophils % (Manual) Myelocytes % (Man) Metamyelocytes Hypochromia Platelet Estimate Platelet Comment Polychromasia Poikilocytosis Anisocytosis Microcytosis Macrocytosis Tear Drop Cells PT with INR INR PTT (Actin FS) Sodium Potassium Chloride Carbon Dioxide Anion Gap BUN Creatinine Creat Clearance w eGFR POC Glucometer 202 Random Glucose Calcium Total Bilirubin AST ALT Alkaline Phosphatase Total Protein Albumin PE- N- alert, oriented [facility]- S1S2, Systolic murmur lungs- clear, diminished bases LE- edema, chronic stasis changes abd- soft, NT, obese [place] A/P 1. metastatic high grade mullerian ovarian ca -extensive metastasis - new thoracic T10/epidural disease -radiation TX starting today -improving platelets -IV decadron 4 TID 2. Thrombocytopenia -received platelets, PRBC -Improving platelets 3. PAF -Heparin - COUMADIN - monitor APTT/INR -on [facility] CD for rate control -tachy today-will get ekg 4. CHF- systolic and diastolic EF-52%-12/2016 lasix was on hold for few days received lasix 40 IV x 1 03/31/17 Cardiology following 5. Hyponatremia - monitor BMP -Nephrology following -patient is in her usual mental status - ? SIADH 6. pain related to malignancy - continue pain medications as ordered 7. ANXIETY related to current medical condition and impending radiation TX - patient refused anti- anxiety medications now - discussed with nursing 8. tachycardia- will get EKG -MOST Likely due to anxiety duplex LE pending Problem List - Problems (1) PAF (paroxysmal atrial fibrillation) Code(s): I48.0 - PAROXYSMAL ATRIAL FIBRILLATION (2) Cancer-related pain Code(s): G89.3 - NEOPLASM RELATED PAIN (ACUTE) (CHRONIC) (3) Hyponatremia Code(s): E87.1 - HYPO-OSMOLALITY AND HYPONATREMIA (4) Hypothyroidism Code(s): E03.9 - HYPOTHYROIDISM, UNSPECIFIED (5) Thrombocytopenia Code(s): D69.6 - THROMBOCYTOPENIA, UNSPECIFIED (6) Anxiety Code(s): F41.9 - ANXIETY DISORDER, UNSPECIFIED (7) Primary cancer of ovary with widespread metastatic disease Code(s): C56.9 - MALIGNANT NEOPLASM OF UNSPECIFIED OVARY; C80.0 - DISSEMINATED MALIGNANT NEOPLASM, UNSPECIFIED (8) Hypothyroid Code(s): E03.9 - HYPOTHYROIDISM, UNSPECIFIED (9) Lymphedema Code(s): I89.0 - LYMPHEDEMA, NOT ELSEWHERE CLASSIFIED
[2017-04-01 09:01] LABS: ALBUMIN 2.2 g/dl (3.4-5.0); ANION GAP 10 (8-16); BLOOD UREA NITROGEN 21 mg/dL (7-18); CALCIUM 8.7 mg/dL (8.5-10.1); CHLORIDE 94 mmol/L (98-107); CO2 23 mmol/L (21-32); GLUCOSE,RANDOM 182 mg/dL (74-106); POTASSIUM 5.1 mmol/L (3.5-5.1); SODIUM 127 mmol/L (136-145)
[2017-04-01 09:04] LABS: BILIRUBIN,TOTAL 0.6 mg/dL (0.2-1.0); CREATININE 1.1 mg/dL (0.55-1.02); SGOT/AST 72 U/L (15-37); SGPT/ALT 36 U/L (12-78); TOT PROT 6.2 g/dl (6.4-8.2)
[2017-04-01 09:05] LABS: ALK PHOS 211 U/L (45-117)
--- NOTE | 2017-04-01 09:53 | PN ---
Progress Note (short form) - Note Progress Note: pt seen/ examined with RADIOLOGY MANAGER Rizwana. case discussed. Documentation reviewed. Agree with current management. Discussed with Nursing staff also. pt is tachy/ sob. cxr looked pt at risk of pe will order chest ct drink fluids cardiology/ pulmonary to follow pt already on heparin+ coumadin Will follow. Problem List - Problems (1) Thrombocytopenia Code(s): D69.6 - THROMBOCYTOPENIA, UNSPECIFIED (2) A-fib Code(s): I48.91 - UNSPECIFIED ATRIAL FIBRILLATION Qualifiers: (3) Anemia Code(s): D64.9 - ANEMIA, UNSPECIFIED (4) Diabetes Code(s): E11.9 - TYPE 2 DIABETES MELLITUS WITHOUT COMPLICATIONS Qualifiers: Diabetes mellitus type: type 2 Diabetes mellitus complication status: without complication (5) Hypoalbuminemia Code(s): E88.09 - OTH DISORDERS OF PLASMA-PROTEIN METABOLISM, NEC (6) Primary cancer of ovary with widespread metastatic disease Code(s): C56.9 - MALIGNANT NEOPLASM OF UNSPECIFIED OVARY; C80.0 - DISSEMINATED MALIGNANT NEOPLASM, UNSPECIFIED
--- NOTE | 2017-04-01 10:05 | CONSULT ---
Consult - text type - Consultation Consultation Note: NEUROLOGY CONSULTATION is greatly appreciated: Events reviewed and discussed with Dr. High. Patient examined with her daughter at the bedside. This 61 yo RH woman with h/o HTN, DM, Hypothyroidism, COPD, GERD, depression has known, metastatic Ovarian cancer. Maintained on insulin, L-thyroxine,metformin,glipizide, ranitidine, diltiazem, lasix, montelukast, spiriva, albuterol, bupropion (150) and fentanyl for pain. Pt and daughter recall the onset of intermittent low back pain in November which worsened and became constant. Worse with weight bearing. Progressive deterioration of gait x 2-[address] of abdomen and chest showed T10 vertebral metastasis with epidural extension. Also pelvic carcinomatosis. Pt denies radiating pain, numbness or tingling in the legs or significant change in Bowel or bladder function (difficult ambulating to the bathroom). Marked for RT yesterday. For first Rx today. [place]: Morbidly obese. Lymphedema. Neck supple. No bruits. Cor rapid, reg. NEURO: Widthdrawn, depressed. MS, speech: normal CN II-XII: normal Motor: No drift. arm strength and grasp are normal with min tremor. Isolated weakness of left proximal leg. Normal on the right. Ankle dorsiflexion is normal bilaterally. Areflexic. Plantars silent. Coord: Min b/l FTN dystaxia (?) Sensory: Decreased vibration in both feet to mid-calf Gait: Stands with assistance but exhibits asymmetry due to proximal weakness on left. IMP: 1. T10 Metastasis with epidural extension but no clear indication of Caudae Equina syndrome. 2. Proximal weakness of the left leg. High lumbar radiculopathy is possible but also consider Femoral Mononeuropathy due to Diabetes or pelvic carcinomatosis. 3. Peripheral neuropathy due to diabetes +/- prior chemoRx. SUGGEST: Agree with RT as planned. Bedside PT. Continue current pain Rx. Consider increasing bupropion to 300 mg/d. Thank you very much, Barry Barnes MD
[2017-04-01 10:34] LABS: ANISOCYTOSIS 3+; MACROCYTOSIS 2+; PLATELET ESTIMATE NORMAL; TEAR DROP CELLS 1+
[2017-04-01] MEDS ORDERED: PT OWN MED DRAWER 7, Y5N ONE (10:34)
[2017-04-01] MEDS: HEPARIN - 25,000 UNIT in SODIUM CHLORIDE 495 ML IV SCH ×4 (10:54→17:52)
[2017-04-01] MEDS: HEPARIN NA (PORCINE) 5,000 UNITS/ML 1ML VIAL IVPUSH PRN ×2 (10:54→17:53)
[2017-04-01] MEDS: LIDOCAINE PATCH REMOVAL MC SCH (10:56)
[2017-04-01] MEDS: POLYETHYLENE GLYCOL 3350 119 GM BTL PO SCH (10:56)
[2017-04-01] MEDS: ACETAMINOPHEN 500 MG TABLET (FP) PO PRN (11:14)
[2017-04-01] MEDS: POTASSIUM CHLORIDE TABS 20 MEQ TABLET.ER (FP) PO SCH ×2 (13:05→21:30)
--- NOTE | 2017-04-01 13:31 | PN ---
Progress Note (short form) - Note Progress Note: Radiation Oncology Pt came to office to begin spine RT today. Could not tolerate treatment positioning, became SOB on 6L NC. She had no difficulty laying flat yesterday. Thrombocytopenia improved. Continue low dose decadron and pain mgt. Would advise workup of SOB, consider pulm consult. Will not be able to proceed with RT until pt can lay flat. To follow
[2017-04-01] MEDS ORDERED: FUROSEMIDE 40 MG TABLET (FP) PO ONE (14:24)
--- NOTE | 2017-04-01 14:36 | EKG ---
Test Reason : Blood Pressure : / mmHG Vent. Rate : 100 BPM Atrial Rate : 250 BPM P-R Int : 000 ms QRS Dur : 088 ms QT Int : 370 ms P-R-T Axes : 000 039 130 degrees QTc Int : 477 ms ATRIAL FIBRILLATION LOW VOLTAGE QRS T WAVE ABNORMALITY, CONSIDER LATERAL ISCHEMIA PROLONGED QT ABNORMAL ECG WHEN COMPARED WITH ECG OF 08-JAN-2017 09:21, NONSPECIFIC T WAVE ABNORMALITY NO LONGER EVIDENT IN INFERIOR LEADS INVERTED T WAVES HAVE REPLACED NONSPECIFIC T WAVE ABNORMALITY IN LATERAL LEADS QT HAS LENGTHENED PATIENT SITTING IN CHAIR DURING EKG Confirmed by PAMELA YIN MD ([id number]) on 04/01/2017 2:35:57 PM Referred By: He ANDREA Confirmed By:PAMELA YIN MD
[2017-04-01] MEDS: TIOTROPIUM BROMIDE 18 MCG/INH (DEVICE W/ 5 CAPSULES) IH SCH (14:42)
--- NOTE | 2017-04-01 15:34 | PN ---
Progress Note (short form) - Note Progress Note: Renal follow up for SURY Pt seen and examined at the bedside + cough with sputum production + SOB overnight no chest pain s/p IV lasix last night Vital Signs Temperature 97.5 F L 04/01/17 13:59 Pulse Rate 116 H 04/01/17 13:59 Respiratory Rate 20 04/01/17 13:59 Blood Pressure 103/63 04/01/17 13:59 O2 Sat by Pulse Oximetry (%) 100 03/31/17 21:00 Intake & Output 03/29/17 03/30/17 03/31/17 04/01/17 23:59 23:59 23:59 23:59 Intake Total 720 1024 1206 898 Balance 720 1024 1206 898 Weight 154.131 kg 158.312 kg 156.671 kg NAD RRRR dry MM CTA Obese Abd 3+ edema in le CBC, BMP 04/01/17 06:00 04/01/17 06:00 Current Medications Acetaminophen (Tylenol -) 500 mg PO Q4H PRN PRN Reason: FEVER OR PAIN Last Admin: 04/01/17 11:14 Dose: 500 mg Acetylcysteine (Mucomyst 20 Oral / Inh Use Only*) 200 mg NEB QIDR [facility] Albuterol Sulfate (Ventolin 0.083% Nebulizer Soln -) 1 amp NEB QIDR [facility] Last Admin: 04/01/17 12:11 Dose: 1 amp Bupropion HCl (Wellbutrin Xl -) 150 mg PO DAILY [facility] Last Admin: 04/01/17 13:05 Dose: 150 mg Dexamethasone Sodium Phosphate (Decadron Injection -) 4 mg IVPB Q8H-IV [facility] Last Admin: 04/01/17 10:53 Dose: 4 mg Diltiazem HCl (Cardizem Cd -) 300 mg PO DAILY [facility] Last Admin: 04/01/17 10:53 Dose: 300 mg Docusate Sodium (Colace -) 100 mg PO TID [facility] Last Admin: 04/01/17 13:47 Dose: 100 mg Gabapentin (Neurontin -) 100 mg PO TID [facility] Last Admin: 04/01/17 13:41 Dose: Not Given Guaifenesin (Diabetic Tussin Dm -) 10 ml PO Q6H [facility] Last Admin: 04/01/17 13:04 Dose: 10 ml Heparin Sodium (Porcine) (Heparin -) 1,000 unit IVPUSH PRN PRN PRN Reason: Heparin Last Admin: 04/01/17 10:54 Dose: 1,000 unit Heparin Sodium (Porcine) (Heparin -) 5,000 unit IVPUSH PRN PRN PRN Reason: Heparin Last Admin: 03/31/17 23:26 Dose: 5,000 unit Heparin Sodium (Porcine) 25, (000 unit/ Sodium Chloride) 500 mls @ 20 mls/hr IV TITR [facility]; 1,000 UNIT/HR PRN Reason: Protocol Last Admin: 04/01/17 10:54 Dose: 1,500 unit/hr, 30 mls/hr Insulin Aspart (Novolog Vial Sliding Scale -) 1 vial SQ ACHS [facility] PRN Reason: Protocol Last Admin: 04/01/17 13:25 Dose: 4 unit Levothyroxine Sodium (Synthroid -) 75 mcg PO DAILY@0700 [facility] Last Admin: 04/01/17 06:16 Dose: 75 mcg Lidocaine (Lidoderm Patch -) 1 patch TP HS [facility] Last Admin: 03/31/17 21:34 Dose: Not Given Miscellaneous (Duragesic Patch Waste) 1 each TD PRN PRN Last Admin: 03/31/17 06:32 Dose: 1 each Miscellaneous (Lidoderm Patch Removal) 1 each MC DAILY [facility] Last Admin: 04/01/17 10:56 Dose: Not Given Montelukast Sodium (Singulair -) 10 mg PO HS [facility] Last Admin: 03/31/17 21:32 Dose: 10 mg Ondansetron HCl (Zofran Injection) 4 mg IVPB Q8H PRN PRN Reason: NAUSEA Last Admin: 03/26/17 12:54 Dose: 4 mg Polyethylene Glycol (Miralax (For Daily Use) -) 17 gm PO DAILY [facility] Last Admin: 04/01/17 10:56 Dose: Not Given Potassium Chloride (K-Dur -) 20 meq PO BID [facility] Last Admin: 04/01/17 13:05 Dose: 20 meq Senna (Senna -) 2 tab PO HS PRN PRN Reason: CONSTIPATION Last Admin: 03/31/17 22:05 Dose: 2 tab Tiotropium [place] (Spiriva -) 1 puff IH DAILY [facility] Last Admin: 04/01/17 14:42 Dose: 1 puff Tramadol HCl (Ultram -) 75 mg PO Q6H PRN PRN Reason: PAIN Last Admin: 04/01/17 10:59 Dose: 75 mg Warfarin Sodium (Coumadin -) 3 mg PO DAILY@1800 [facility] Last Admin: 03/31/17 18:31 Dose: 3 mg 61 year old woman with PMhx of Metastatic Ovarian Ca (lung, Liver) on Chemo, Hypertension, DM Type 2, Chronic Lymphedema, Obesity presented with thrombocytopenia and found to have hyponatremia. #Hypoosmolar Hyponatremia Serum Na downtrended s/p Lasix yesterday, also noted rise in BUN/Cr levels suspect that pt has some degree of hypovolemia however very difficutl to access volume status clinically discussed case with Dr. Miller will given PO Lasix x 1 today and trend labs over 48 hours period continue O2, Nebs, Mucomyst will follow Mirza Zuleta DO
[2017-04-01] MEDS ORDERED: guaiFENesin/D-METHORPHAN HB 1 EACH TAB.ER.12H PO SCH (15:48)
--- NOTE | 2017-04-01 17:06 | PN ---
Progress Note (short form) - Note Progress Note: Patient seen and examined. cough worse today she could not lie down on RT O/E: Cor: RSR, No murmurs, No gallops Lungs: Clear to P&A Abd: Soft, Normal bowel sounds, No organomegaly Ext:No significant edema Skin: edematous LE: chronic LE edema Last Vital Signs Temp Pulse Resp BP Pulse Ox 97.5 F L 116 H 20 103/63 99 04/01/17 13:59 04/01/17 13:59 04/01/17 13:59 04/01/17 13:59 04/01/17 09:00 CBC, BMP 04/01/17 06:00 04/01/17 06:00 Current Medications Generic Name Dose Route Start Last Admin Trade Name Freq PRN Reason Stop Dose Admin Acetaminophen 500 mg 03/22/17 18:38 04/01/17 11:14 Tylenol - PO 500 mg Q4H PRN Administration FEVER OR PAIN Acetylcysteine 200 mg 04/01/17 14:30 Mucomyst 20 Oral / Inh Use Only* NEB QIDR [facility] Albuterol Sulfate 1 amp 03/31/17 18:00 04/01/17 12:11 Ventolin 0.083% Nebulizer Soln - NEB 1 amp QIDR [facility] Administration Bupropion HCl 150 mg 03/23/17 10:00 04/01/17 13:05 Wellbutrin Xl - PO 150 mg DAILY [facility] Administration Dexamethasone Sodium Phosphate 4 mg 03/30/17 18:00 04/01/17 10:53 Decadron Injection - IVPB 4 mg Q8H-IV [facility] Administration Diltiazem HCl 300 mg 03/23/17 10:00 04/01/17 10:53 Cardizem Cd - PO 300 mg DAILY [facility] Administration Docusate Sodium 100 mg 03/26/17 22:00 04/01/17 13:47 Colace - PO 100 mg TID [facility] Administration Gabapentin 100 mg 03/29/17 22:00 04/01/17 13:41 Neurontin - PO Not Given TID [facility] Guaifenesin 10 ml 03/30/17 17:00 04/01/17 13:04 Diabetic Tussin Dm - PO 10 ml Q6H [facility] Administration Heparin Sodium (Porcine) 1,000 unit 03/30/17 14:39 04/01/17 10:54 Heparin - IVPUSH 1,000 unit PRN PRN Administration Heparin Heparin Sodium (Porcine) 5,000 unit 03/30/17 14:39 03/31/17 23:26 Heparin - IVPUSH 5,000 unit PRN PRN Administration Heparin Heparin Sodium (Porcine) 25, 500 mls @ 20 mls/hr 03/30/17 14:45 04/01/17 16: 45 000 unit/ Sodium Chloride IV Not Given TITR [facility] Protocol 1,000 UNIT/HR Insulin Aspart 1 vial 03/24/17 18:16 04/01/17 13:25 Novolog Vial Sliding Scale - SQ 4 unit ACHS [facility] Administration Protocol Levothyroxine Sodium 75 mcg 03/23/17 07:00 04/01/17 06:16 Synthroid - PO 75 mcg DAILY@0700 [facility] Administration Lidocaine 1 patch 03/25/17 00:15 03/31/17 21:34 Lidoderm Patch - TP Not Given HS [facility] Miscellaneous 1 each 03/25/17 00:05 03/31/17 06:32 Duragesic Patch Waste TD 1 each PRN PRN Administration Miscellaneous 1 each 03/25/17 10:00 04/01/17 10:56 Lidoderm Patch Removal MC Not Given DAILY [facility] Montelukast Sodium 10 mg 03/22/17 22:00 03/31/17 21:32 Singulair - PO 10 mg HS [facility] Administration Ondansetron HCl 4 mg 03/23/17 12:10 03/26/17 12:54 Zofran Injection IVPB 4 mg Q8H PRN Administration NAUSEA Polyethylene Glycol 17 gm 03/23/17 10:00 04/01/17 10:56 Miralax (For Daily Use) - PO Not Given DAILY [facility] Potassium Chloride 20 meq 03/23/17 10:00 04/01/17 13:05 K-Dur - PO 20 meq BID [facility] Administration Senna 2 tab 03/22/17 18:13 03/31/17 22:05 Senna - PO 2 tab HS PRN Administration CONSTIPATION Tiotropium [place] 1 puff 03/23/17 10:00 04/01/17 14:42 Spiriva - IH 1 puff DAILY [facility] Administration Tramadol HCl 75 mg 03/28/17 22:59 04/01/17 10:59 Ultram - PO 75 mg Q6H PRN Administration PAIN Warfarin Sodium 3 mg 03/29/17 18:00 03/31/17 18:31 Coumadin - PO 3 mg DAILY@1800 [facility] Administration 61 y/o patient with metastatic high grade mullerian cancer on gemzar Comes in with thrombocytopenia Transfused monodonor platelets Transfused PRBCs CT scans show progressive diseasse New T10 met/epidural disease pain control Thrombocytopenia Improved Afib: Hep with Coumadin [place] Cough-- nebulizer treatments/robitusssin worse today, thick mucous productive mucinex Pulm consult ?infection ?disease itself will send cultures give one dose of cefe/vanc and start IVF slowly T10 metastases-- for RT Leucocytosis, likely from dex Could not Lie flat today due to SOB/Cough today will repeat Hyponatemia appreciate renal input s/p lasix x2 Pedal edema- LE dopller negative pt on heparin drip.
[2017-04-01] MEDS: ACETYLCYSTEINE 20% 200MG/ML 30 ML VIAL *FOR ORAL / INH USE ONLY NEB SCH ×2 (17:19→23:10)
[2017-04-01] MEDS: WARFARIN NA 3 MG TABLET PO SCH (17:40)
[2017-04-01] MEDS ORDERED: VANCOMYCIN 1,000 MG in DEXTROSE 5%-WATER - 250 ML IVPB ONE (18:06)
[2017-04-01] MEDS ORDERED: CEFEPIME HCL 2 GM VIAL (RESTRICTED TO ID) IVPB ONE (18:11)
[2017-04-01] MEDS ORDERED: CEFEPIME 2 GM in DEXTROSE 5%-WATER - 100 ML IVPB ONE (18:15)
[2017-04-01] MEDS: SODIUM CHLORIDE 1,000 ML IV SCH (18:42)
[2017-04-01] MEDS ORDERED: ACETAMINOPHEN 500 MG TABLET (FP) PO ONE (21:14)
[2017-04-01] MEDS: SENNOSIDES 8.6MG TABLET (FP) PO PRN (21:30)
[2017-04-01] MEDS: MONTELUKAST NA 10 MG TABLET PO SCH (21:30)
[2017-04-01] MEDS: LIDOCAINE 5% TOPICAL PATCH TP SCH (21:31)
[2017-04-01] MEDS ORDERED: PANTOPRAZOLE SODIUM 40 MG VIAL IVPUSH ONE (22:38)
--- NOTE | 2017-04-01 22:40 | HOSP ---
Subjective - Review of Symptoms Events since last encounter: Hospitalist Encounter Notified by the RN, that a patient of Dr. Clark High's had an episode of hematemesis after coughing. Arrived to bedside, patient is alert, awake and oriented patient reports having 2 episodes of bilious emesis in the last 2hrs. she denies chest and abdominal pain. She reports having a burning sensation to her epigastrium. A/P 61 y/o woman with metastatic high grade mullerian cancer on gemzar Plan Will order Protonix IVPB x1 Send gastric content for occult blood r/o Continue with current regimen Will continue to monitor RN will inform covering Attending of overnight events Gastrointestinal: Yes: Vomiting Physical Examination Vital Signs: Vital Signs Temperature 97.9 F 04/01/17 20:28 Pulse Rate 88 04/01/17 20:28 Respiratory Rate 20 04/01/17 20:28 Blood Pressure 121/68 04/01/17 20:28 O2 Sat by Pulse Oximetry (%) 99 04/01/17 09:00 Constitutional: Yes: Calm, Obese, Pallor Eyes: Yes: WNL, Conjunctiva Clear, EOM Intact, PERRL HENT: Yes: WNL, Atraumatic, Normocephalic Neck: Yes: WNL, Supple, Trachea Midline Cardiovascular: Yes: WNL, Regular Rate and Rhythm, S1, S2 Respiratory: Yes: Diminished, On Nasal O2, Rhonchi Gastrointestinal: Yes: Normal Bowel Sounds, Abdomen, Obese, Hematemesis Neurological: Yes: WNL, Alert, Oriented, Cran Nerves II-XII Intact ...Motor Strength: WNL Psychiatric: Yes: WNL, Alert, Oriented Labs: CBC, BMP 04/01/17 06:00 04/01/17 06:00
[2017-04-02] MEDS: traMADol HCL 50 MG TABLET PO PRN ×2 (00:10→19:50)
[2017-04-02] MEDS: DEXAMETHASONE SOD PHOSPHATE 4 MG/1 ML VIAL IVPB SCH ×3 (02:39→17:02)
[2017-04-02] MEDS: LEVOTHYROXINE NA 75 MCG TABLET (FP) PO SCH (06:30)
[2017-04-02] MEDS: guaiFENesin/D-M SUGAR-FREE/ACLHOL-FREE 118 ML BOTTLE PO SCH ×4 (06:31→23:05)
[2017-04-02] MEDS: DOCUSATE SODIUM 100 MG CAPSULE (FP) PO SCH ×3 (06:32→21:52)
[2017-04-02] MEDS: GABAPENTIN 100 MG CAPSULE (FP) PO SCH ×3 (06:32→21:53)
[2017-04-02] MEDS: INSULIN SLIDING SCALE (NOVOLOG) 1 VIAL SQ SCH ×4 (06:36→21:53)
[2017-04-02] MEDS: ACETYLCYSTEINE 20% 200MG/ML 30 ML VIAL *FOR ORAL / INH USE ONLY NEB SCH ×4 (07:10→18:25)
[2017-04-02] MEDS: ALBUTEROL SO4 0.083% IH SOL 2.5 MG/3 ML VIAL.NEB. NEB SCH ×3 (07:10→18:26)
[2017-04-02 07:54] LABS: HEMATOCRIT 29.3 % (32.4-45.2); HEMOGLOBIN 9.6 GM/dL (10.7-15.3); MCH 32.9 pg (25.7-33.7); MCHC 32.9 g/dl (32.0-36.0); MEAN CELL VOLUME 99.9 fl (80-96); MEAN PLT VOLUME 9.9 fl (7.5-11.1); PLATELET COUNT 185 K/MM3 (134-434); RBC 2.93 M/mm3 (3.60-5.2); RDW 24.5 % (11.6-15.6); WHITE BLOOD COUNT 18.4 K/mm3 (4.0-10.0)
[2017-04-02 08:02] LABS: ADD RBC MORPHOLOGY YES
[2017-04-02 08:15] LABS: INR 1.45 (0.82-1.09); PROTHROMBIN TIME (PATIENT) 16.4 SEC (9.98-11.88)
[2017-04-02 08:25] LABS: ALBUMIN 2.4 g/dl (3.4-5.0); ANION GAP 9 (8-16); BILIRUBIN,TOTAL 0.6 mg/dL (0.2-1.0); BLOOD UREA NITROGEN 29 mg/dL (7-18); CALCIUM 8.8 mg/dL (8.5-10.1); CHLORIDE 94 mmol/L (98-107); CO2 27 mmol/L (21-32); CREATININE 1.4 mg/dL (0.55-1.02); GLUCOSE,RANDOM 172 mg/dL (74-106); MAGNESIUM 2.2 mg/dL (1.8-2.4); PHOSPHOROUS 3.7 mg/dL (2.5-4.9); POTASSIUM 5.6 mmol/L (3.5-5.1); SGOT/AST 88 U/L (15-37); SGPT/ALT 42 U/L (12-78); SODIUM 130 mmol/L (136-145); TOT PROT 6.3 g/dl (6.4-8.2)
[2017-04-02 08:26] LABS: ALK PHOS 212 U/L (45-117)
--- NOTE | 2017-04-02 08:55 | PN ---
Progress Note, Physician Chief Complaint: ID New onset couph No fever chills but on Decadron - Current Medication List Current Medications: Active Medications Acetaminophen (Tylenol -) 500 mg PO DAILY [facility] Acetylcysteine (Mucomyst 20 Oral / Inh Use Only*) 200 mg NEB QIDR [facility] Last Admin: 04/02/17 08:37 Dose: Not Given Albuterol Sulfate (Ventolin 0.083% Nebulizer Soln -) 1 amp NEB QIDR [facility] Last Admin: 04/02/17 07:10 Dose: 1 amp Bupropion HCl (Wellbutrin Xl -) 150 mg PO DAILY [facility] Last Admin: 04/01/17 13:05 Dose: 150 mg Dexamethasone Sodium Phosphate (Decadron Injection -) 4 mg IVPB Q8H-IV [facility] Last Admin: 04/02/17 02:39 Dose: 4 mg Diltiazem HCl (Cardizem Cd -) 300 mg PO DAILY [facility] Last Admin: 04/01/17 10:53 Dose: 300 mg Docusate Sodium (Colace -) 100 mg PO TID [facility] Last Admin: 04/02/17 06:32 Dose: 100 mg Gabapentin (Neurontin -) 100 mg PO TID [facility] Last Admin: 04/02/17 06:32 Dose: Not Given Guaifenesin (Diabetic Tussin Dm -) 10 ml PO Q6H [facility] Last Admin: 04/02/17 06:31 Dose: 10 ml Heparin Sodium (Porcine) (Heparin -) 1,000 unit IVPUSH PRN PRN PRN Reason: Heparin Last Admin: 04/01/17 10:54 Dose: 1,000 unit Heparin Sodium (Porcine) (Heparin -) 5,000 unit IVPUSH PRN PRN PRN Reason: Heparin Last Admin: 04/01/17 17:53 Dose: 5,000 unit Heparin Sodium (Porcine) 25, (000 unit/ Sodium Chloride) 500 mls @ 20 mls/hr IV TITR [facility]; 1,000 UNIT/HR PRN Reason: Protocol Last Titration: 04/02/17 01:45 Dose: 1,650 unit/hr, 33 mls/hr Sodium Chloride (Normal Saline -) 1,000 mls @ 75 mls/hr IV ASDIR [facility] Last Admin: 04/01/17 18:42 Dose: 75 mls/hr Insulin Aspart (Novolog Vial Sliding Scale -) 1 vial SQ ACHS [facility] PRN Reason: Protocol Last Admin: 04/02/17 06:36 Dose: Not Given Levothyroxine Sodium (Synthroid -) 75 mcg PO DAILY@0700 [facility] Last Admin: 04/02/17 06:30 Dose: 75 mcg Lidocaine (Lidoderm Patch -) 1 patch TP HS [facility] Last Admin: 04/01/17 21:31 Dose: Not Given Miscellaneous (Duragesic Patch Waste) 1 each TD PRN PRN Last Admin: 03/31/17 06:32 Dose: 1 each Miscellaneous (Lidoderm Patch Removal) 1 each MC DAILY [facility] Last Admin: 04/01/17 10:56 Dose: Not Given Montelukast Sodium (Singulair -) 10 mg PO HS [facility] Last Admin: 04/01/17 21:30 Dose: 10 mg Ondansetron HCl (Zofran Injection) 4 mg IVPB Q8H PRN PRN Reason: NAUSEA Last Admin: 03/26/17 12:54 Dose: 4 mg Polyethylene Glycol (Miralax (For Daily Use) -) 17 gm PO DAILY [facility] Last Admin: 04/01/17 10:56 Dose: Not Given Potassium Chloride (K-Dur -) 20 meq PO BID [facility] Last Admin: 04/01/17 21:30 Dose: 20 meq Senna (Senna -) 2 tab PO HS PRN PRN Reason: CONSTIPATION Last Admin: 04/01/17 21:30 Dose: 2 tab Tiotropium [place] (Spiriva -) 1 puff IH DAILY [facility] Last Admin: 04/01/17 14:42 Dose: 1 puff Tramadol HCl (Ultram -) 75 mg PO Q6H PRN PRN Reason: PAIN Last Admin: 04/01/17 17:27 Dose: 75 mg Tramadol HCl (Ultram -) 75 mg PO DAILY [facility] Warfarin Sodium (Coumadin -) 3 mg PO DAILY@1800 [facility] Last Admin: 04/01/17 17:40 Dose: 3 mg - Objective Vital Signs: Vital Signs Temperature 97.6 F 04/02/17 06:00 Pulse Rate 129 H 04/02/17 06:00 Respiratory Rate 20 04/02/17 06:00 Blood Pressure 123/66 04/02/17 06:00 O2 Sat by Pulse Oximetry (%) 99 04/01/17 09:00 Constitutional: Yes: Mild Distress Cardiovascular: Yes: Regular Rate and Rhythm, S1, S2, Other (PORT) Respiratory: Yes: WNL, Regular, CTA Bilaterally, Other (Few rhonchi) Gastrointestinal: Yes: Soft. No: Tenderness Edema: Yes Labs: CBC, BMP 04/02/17 06:00 04/02/17 06:00 INR, PTT INR 1.45 (0.82-1.09) H 04/02/17 06:00 Assessment/Plan Laboratory Tests 04/02/17 04/02/17 06:00 06:00 WBC 18.4 H Hgb 9.6 L Hct 29.3 L Plt Count 185 BUN 29 H D Creatinine 1.4 H D Creat Clearance w eGFR 38.23 Assessment Metatstatic Cancer pulmonary mets ? new onset couph worsening per Dr High ON steroids now cultures pending Plan Await cultures Influenza screen Zosyn empiric pending chest repeat CT Amadou CHOW
--- NOTE | 2017-04-02 09:13 | PN ---
Progress Note (short form) - Note Progress Note: patient seen and examined. Sitting in chair Could not do RT yesterday--- unable to lie down Do not want to go today--- reports coughing and with coughing chest hurts Otherwise pain okay--controlled with medications All follow-ups noted Discussed with Dr. Ahmadi also today Will be started on Zosyn Vital Signs Temp 97.6 F 04/02/17 06:00 Pulse 129 H 04/02/17 06:00 Resp 20 04/02/17 06:00 BP 123/66 04/02/17 06:00 Pulse Ox 99 04/01/17 09:00 Intake & Output 04/01/17 04/01/17 04/02/17 11:59 23:59 11:59 Intake Total 461 847 Balance 461 847 Weight 345 lb 6.4 oz Intake: IV 224 360 Heparin - 25,000 Unit In 224 360 Normal Saline - 495 ml @ 1,000 UNIT/HR 20 mls/hr IV TITR [facility] Rx#: [id number] IVPB 50 Oral 200 Oral Supplement 237 237 Other: Voiding Method Bedpan Bedpan Bedpan # Unmeasured Voids Void 1 Bowel Movement Yes: small Weight Measurement Method Chair Scale Active Medications Acetaminophen (Tylenol -) 500 mg PO DAILY [facility] Acetylcysteine (Mucomyst 20 Oral / Inh Use Only*) 200 mg NEB QIDR [facility] Last Admin: 04/02/17 08:37 Dose: Not Given Albuterol Sulfate (Ventolin 0.083% Nebulizer Soln -) 1 amp NEB QIDR [facility] Last Admin: 04/02/17 07:10 Dose: 1 amp Bupropion HCl (Wellbutrin Xl -) 150 mg PO DAILY [facility] Last Admin: 04/01/17 13:05 Dose: 150 mg Dexamethasone Sodium Phosphate (Decadron Injection -) 4 mg IVPB Q8H-IV [facility] Last Admin: 04/02/17 02:39 Dose: 4 mg Diltiazem HCl (Cardizem Cd -) 300 mg PO DAILY [facility] Last Admin: 04/01/17 10:53 Dose: 300 mg Docusate Sodium (Colace -) 100 mg PO TID [facility] Last Admin: 04/02/17 06:32 Dose: 100 mg Gabapentin (Neurontin -) 100 mg PO TID [facility] Last Admin: 04/02/17 06:32 Dose: Not Given Guaifenesin (Diabetic Tussin Dm -) 10 ml PO Q6H [facility] Last Admin: 04/02/17 06:31 Dose: 10 ml Heparin Sodium (Porcine) (Heparin -) 1,000 unit IVPUSH PRN PRN PRN Reason: Heparin Last Admin: 04/01/17 10:54 Dose: 1,000 unit Heparin Sodium (Porcine) (Heparin -) 5,000 unit IVPUSH PRN PRN PRN Reason: Heparin Last Admin: 04/01/17 17:53 Dose: 5,000 unit Heparin Sodium (Porcine) 25, (000 unit/ Sodium Chloride) 500 mls @ 20 mls/hr IV TITR [facility]; 1,000 UNIT/HR PRN Reason: Protocol Last Titration: 04/02/17 01:45 Dose: 1,650 unit/hr, 33 mls/hr Sodium Chloride (Normal Saline -) 1,000 mls @ 75 mls/hr IV ASDIR [facility] Last Admin: 04/01/17 18:42 Dose: 75 mls/hr Piperacillin/Tazobactam/Dextrose (Zosyn 3.375gm Ivpb (Premix)) 50 mls @ 100 mls /hr IVPB Q8H-IV [facility] PRN Reason: Protocol Insulin Aspart (Novolog Vial Sliding Scale -) 1 vial SQ ACHS [facility] PRN Reason: Protocol Last Admin: 04/02/17 06:36 Dose: Not Given Levothyroxine Sodium (Synthroid -) 75 mcg PO DAILY@0700 [facility] Last Admin: 04/02/17 06:30 Dose: 75 mcg Lidocaine (Lidoderm Patch -) 1 patch TP [facility] Last Admin: 04/01/17 21:31 Dose: Not Given Miscellaneous (Duragesic Patch Waste) 1 each TD PRN PRN Last Admin: 03/31/17 06:32 Dose: 1 each Miscellaneous (Lidoderm Patch Removal) 1 each MC DAILY [facility] Last Admin: 04/01/17 10:56 Dose: Not Given Montelukast Sodium (Singulair -) 10 mg PO HS [facility] Last Admin: 04/01/17 21:30 Dose: 10 mg Ondansetron HCl (Zofran Injection) 4 mg IVPB Q8H PRN PRN Reason: NAUSEA Last Admin: 03/26/17 12:54 Dose: 4 mg Pantoprazole Sodium (Protonix Iv) 40 mg IVPUSH DAILY [facility] Polyethylene Glycol (Miralax (For Daily Use) -) 17 gm PO DAILY [facility] Last Admin: 04/01/17 10:56 Dose: Not Given Potassium Chloride (K-Dur -) 20 meq PO BID [facility] Last Admin: 04/01/17 21:30 Dose: 20 meq Senna (Senna -) 2 tab PO HS PRN PRN Reason: CONSTIPATION Last Admin: 04/01/17 21:30 Dose: 2 tab Tiotropium [place] (Spiriva -) 1 puff IH DAILY [facility] Last Admin: 04/01/17 14:42 Dose: 1 puff Tramadol HCl (Ultram -) 75 mg PO Q6H PRN PRN Reason: PAIN Last Admin: 04/01/17 17:27 Dose: 75 mg Tramadol HCl (Ultram -) 75 mg PO DAILY [facility] Warfarin Sodium (Coumadin -) 3 mg PO DAILY@1800 [facility] Last Admin: 04/01/17 17:40 Dose: 3 mg CBC, BMP 04/02/17 06:00 04/02/17 06:00 ultrasound--- negative for DVT Physical Examination Constitutional: Yes: alert and awake. chronic ill appearance. Eyes: Yes: Conjunctiva Clear HENT: Yes: Atraumatic/ throat - clear. Neck: Yes: Supple, Trachea Midline. no jvd Cardiovascular: Yes: Pulse Irregular, S1, S2 Respiratory: Yes: diminished at bases. Gastrointestinal: Yes: Normal Bowel Sounds, Abdomen, Obese. Neurological: Yes: Alert, Oriented x 3 Psychiatric: Yes: Alert, Oriented Ext-Chronic venous stasis of legs Imaging - Results X-ray: Noted CT scan reviewed and noted--- progression of disease Assessment/Plan Metastatic ovarian ca-- worsening . Thrombocytopenia paroxysmal afib obesity depression hyponatremia- antibiotics Worsening of renal function--renal to follow Will hold CT scan with chest--due to renal insufficiency. last CT scan reviewed--few weeks ago. Pulmonary to follow as well as cardiology. patient already on heparin and Coumadin. continue present care Patient also DNR and DNI--- order placed. Will follow We will give dose of Kayexalate also. Problem List - Problems (1) Thrombocytopenia Code(s): D69.6 - THROMBOCYTOPENIA, UNSPECIFIED (2) A-fib Code(s): I48.91 - UNSPECIFIED ATRIAL FIBRILLATION Qualifiers: (3) Anemia Code(s): D64.9 - ANEMIA, UNSPECIFIED (4) Diabetes Code(s): E11.9 - TYPE 2 DIABETES MELLITUS WITHOUT COMPLICATIONS Qualifiers: Diabetes mellitus type: type 2 Diabetes mellitus complication status: without complication (5) Hypoalbuminemia Code(s): E88.09 - OTH DISORDERS OF PLASMA-PROTEIN METABOLISM, NEC (6) Primary cancer of ovary with widespread metastatic disease Code(s): C56.9 - MALIGNANT NEOPLASM OF UNSPECIFIED OVARY; C80.0 - DISSEMINATED MALIGNANT NEOPLASM, UNSPECIFIED
[2017-04-02] MEDS ORDERED: PANTOPRAZOLE SODIUM 40 MG VIAL IVPUSH SCH (10:00)
[2017-04-02 10:23] LABS: ANISOCYTOSIS 3+; MACROCYTOSIS 0; PLATELET ESTIMATE NORMAL
--- NOTE | 2017-04-02 10:29 | PN ---
Progress Note, Physician Chief Complaint: Pt A&Ox3; OOB in chair; c/o dry cough that began last night. History of Present Illness: This is a 61 year old white female with recent dx of high grade ovarian caner with gross organ metastasis (lung, liver) dx in 08/2016 s/p carbo/taxol (did not respond) changed to second line chemo Gemzar, last chemo session 03/18/17, HTN, DM II, MRSA, R foot wound, A fib (on coumadin), massive lymphadema of LEs, morbid obesity. Pt presented to the ED after outpt labs reveled thrombocytopenia to 39k. Coumadin was held and is still on hold, no active bleed noted. Pt received 1 unit platelets and is being admitted for further transfusions. Of note, pt was climbing the stairs, when she reached the final step her leg went weak and then pivoted around. She now has some eccyhymosis to her lateral side, slip was witnessed by daughter and EMS worker, she did not hit her head, xrays pending. History Source: Patient, Family Member Limitations to Obtaining History: No Limitations - Past Medical History Cardiovascular: Yes: AFIB, HTN, Other (chronic lymphedema) Pulmonary: Yes: COPD, Other (recently had a chest tube removed). No: O2 Dependent Gastrointestinal: Yes: GERD Heme/Onc: Yes: Anemia, Other Endocrine: Yes: Diabetes Mellitus, Hyperthyroidism - Current Medication List Current Medications: Active Medications Acetaminophen (Tylenol -) 500 mg PO DAILY [facility] Acetylcysteine (Mucomyst 20 Oral / Inh Use Only*) 200 mg NEB QIDR [facility] Last Admin: 04/02/17 08:37 Dose: Not Given Albuterol Sulfate (Ventolin 0.083% Nebulizer Soln -) 1 amp NEB QIDR [facility] Last Admin: 04/02/17 07:10 Dose: 1 amp Bupropion HCl (Wellbutrin Xl -) 150 mg PO DAILY [facility] Last Admin: 04/01/17 13:05 Dose: 150 mg Dexamethasone Sodium Phosphate (Decadron Injection -) 4 mg IVPB Q8H-IV [facility] Last Admin: 04/02/17 02:39 Dose: 4 mg Diltiazem HCl (Cardizem Cd -) 300 mg PO DAILY [facility] Last Admin: 04/01/17 10:53 Dose: 300 mg Docusate Sodium (Colace -) 100 mg PO TID [facility] Last Admin: 04/02/17 06:32 Dose: 100 mg Gabapentin (Neurontin -) 100 mg PO TID [facility] Last Admin: 04/02/17 06:32 Dose: Not Given Guaifenesin (Diabetic Tussin Dm -) 10 ml PO Q6H [facility] Last Admin: 04/02/17 06:31 Dose: 10 ml Heparin Sodium (Porcine) (Heparin -) 1,000 unit IVPUSH PRN PRN PRN Reason: Heparin Last Admin: 04/01/17 10:54 Dose: 1,000 unit Heparin Sodium (Porcine) (Heparin -) 5,000 unit IVPUSH PRN PRN PRN Reason: Heparin Last Admin: 04/01/17 17:53 Dose: 5,000 unit Heparin Sodium (Porcine) 25, (000 unit/ Sodium Chloride) 500 mls @ 20 mls/hr IV TITR [facility]; 1,000 UNIT/HR PRN Reason: Protocol Last Titration: 04/02/17 01:45 Dose: 1,650 unit/hr, 33 mls/hr Sodium Chloride (Normal Saline -) 1,000 mls @ 75 mls/hr IV ASDIR [facility] Last Admin: 04/01/17 18:42 Dose: 75 mls/hr Piperacillin/Tazobactam/Dextrose (Zosyn 3.375gm Ivpb (Premix)) 50 mls @ 100 mls /hr IVPB Q8H-IV [facility] PRN Reason: Protocol Insulin Aspart (Novolog Vial Sliding Scale -) 1 vial SQ ACHS [facility] PRN Reason: Protocol Last Admin: 04/02/17 06:36 Dose: Not Given Levothyroxine Sodium (Synthroid -) 75 mcg PO DAILY@0700 [facility] Last Admin: 04/02/17 06:30 Dose: 75 mcg Lidocaine (Lidoderm Patch -) 1 patch TP [facility] Last Admin: 04/01/17 21:31 Dose: Not Given Miscellaneous (Duragesic Patch Waste) 1 each TD PRN PRN Last Admin: 03/31/17 06:32 Dose: 1 each Miscellaneous (Lidoderm Patch Removal) 1 each MC DAILY [facility] Last Admin: 04/01/17 10:56 Dose: Not Given Montelukast Sodium (Singulair -) 10 mg PO [facility] Last Admin: 04/01/17 21:30 Dose: 10 mg Ondansetron HCl (Zofran Injection) 4 mg IVPB Q8H PRN PRN Reason: NAUSEA Last Admin: 03/26/17 12:54 Dose: 4 mg Pantoprazole Sodium (Protonix Iv) 40 mg IVPUSH DAILY [facility] Polyethylene Glycol (Miralax (For Daily Use) -) 17 gm PO DAILY [facility] Last Admin: 04/01/17 10:56 Dose: Not Given Potassium Chloride (K-Dur -) 20 meq PO BID [facility] Last Admin: 04/01/17 21:30 Dose: 20 meq Senna (Senna -) 2 tab PO HS PRN PRN Reason: CONSTIPATION Last Admin: 04/01/17 21:30 Dose: 2 tab Tiotropium [place] (Spiriva -) 1 puff IH DAILY [facility] Last Admin: 04/01/17 14:42 Dose: 1 puff Tramadol HCl (Ultram -) 75 mg PO Q6H PRN PRN Reason: PAIN Last Admin: 04/01/17 17:27 Dose: 75 mg Tramadol HCl (Ultram -) 75 mg PO DAILY [facility] Warfarin Sodium (Coumadin -) 3 mg PO DAILY@1800 [facility] Last Admin: 04/01/17 17:40 Dose: 3 mg - Objective Vital Signs: Vital Signs Temperature 97.8 F 04/02/17 10:07 Pulse Rate 110 H 04/02/17 10:07 Respiratory Rate 20 04/02/17 10:07 Blood Pressure 109/55 04/02/17 10:07 O2 Sat by Pulse Oximetry (%) 99 04/01/17 09:00 Constitutional: Yes: Anxious, Obese Eyes: Yes: WNL HENT: Yes: WNL Neck: Yes: WNL Cardiovascular: Yes: Pulse Irregular, S1 (varires in intensity) Respiratory: Yes: Diminished Gastrointestinal: Yes: Soft, Abdomen, Obese ...Rectal Exam: Yes: Deferred Genitourinary: No: Anuria Breast(s): Yes: WNL Musculoskeletal: Yes: Joint Swelling (knees), Muscle Weakness Extremities: Yes: Cool Edema: Yes Edema: LLE: 3+, RLE: 3+ Peripheral Pulses WNL: Yes Integumentary: Yes: Other (massive lymphedema of the LEs) Neurological: Yes: Alert, Oriented, Weakness Psychiatric: Yes: Other (anxeity/depression) Labs: CBC, BMP 04/02/17 06:00 04/02/17 06:00 INR, PTT INR 1.45 (0.82-1.09) H 04/02/17 06:00 Problem List - Problems (1) Leukocytosis Code(s): D72.829 - ELEVATED WHITE BLOOD CELL COUNT, UNSPECIFIED (2) MRSA (methicillin resistant Staphylococcus aureus) colonization Code(s): Z22.322 - CARRIER OR SUSPECTED CARRIER OF METHICILLIN RESIS STAPH (3) Thrombocytopenia Code(s): D69.6 - THROMBOCYTOPENIA, UNSPECIFIED (4) A-fib Assessment/Plan: Continue diltiazem CD for HR control. On IV heparin until INR 2-3 on warfarin (presently 1.2). Code(s): I48.91 - UNSPECIFIED ATRIAL FIBRILLATION Qualifiers: (5) Abscess Code(s): L02.91 - CUTANEOUS ABSCESS, UNSPECIFIED (6) Anemia Code(s): D64.9 - ANEMIA, UNSPECIFIED (7) Anxiety and depression Code(s): F41.9 - ANXIETY DISORDER, UNSPECIFIED; F32.9 - MAJOR DEPRESSIVE DISORDER, SINGLE EPISODE, UNSPECIFIED (8) Cancer of ovary Code(s): C56.9 - MALIGNANT NEOPLASM OF UNSPECIFIED OVARY Qualifiers: (9) Cellulitis Code(s): L03.90 - CELLULITIS, UNSPECIFIED Qualifiers: Qualified Code(s): L03.116 - Cellulitis of left lower limb (10) Diabetes Code(s): E11.9 - TYPE 2 DIABETES MELLITUS WITHOUT COMPLICATIONS (11) HTN (hypertension) Code(s): I10 - ESSENTIAL (PRIMARY) HYPERTENSION Qualifiers: (12) Primary cancer of ovary with widespread metastatic disease Code(s): C56.9 - MALIGNANT NEOPLASM OF UNSPECIFIED OVARY; C80.0 - DISSEMINATED MALIGNANT NEOPLASM, UNSPECIFIED (13) SOB (shortness of breath) Assessment/Plan: SOB on minimal exertion; now with dry cough. On cough supressants and antibiotics. Code(s): R06.02 - SHORTNESS OF BREATH (14) Hypothyroid Code(s): E03.9 - HYPOTHYROIDISM, UNSPECIFIED (15) Lymphedema Code(s): I89.0 - LYMPHEDEMA, NOT ELSEWHERE CLASSIFIED
[2017-04-02] MEDS ORDERED: INSULIN (NOVOLOG) ASPART 100 UNITS/ML 10ML VIAL ONE (10:51)
[2017-04-02] MEDS: traMADol HCL 50 MG TABLET PO SCH (10:55)
[2017-04-02] MEDS: ACETAMINOPHEN 500 MG TABLET (FP) PO SCH (10:59)
[2017-04-02] MEDS: TIOTROPIUM BROMIDE 18 MCG/INH (DEVICE W/ 5 CAPSULES) IH SCH (11:00)
[2017-04-02] MEDS: SODIUM CHLORIDE 1,000 ML IV SCH ×2 (11:00→18:23)
--- NOTE | 2017-04-02 11:04 | PN ---
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 Pt presented to the ED after outpt labs reveled thrombocytopenia to 39k. Coumadin was held and is still on hold, no active bleed noted. Pt received 1 unit platelets and is being admitted for further transfusions. Of note, pt was climbing the stairs, when she reached the final step her leg went weak and then pivoted around. She now has some eccyhymosis to her lateral side, slip was witnessed by daughter and EMS worker, she did not hit her head, xrays pending. - Current Medication List Current Medications: Active Medications Acetaminophen (Tylenol -) 500 mg PO DAILY [facility] Last Admin: 04/02/17 10:59 Dose: 500 mg Acetylcysteine (Mucomyst 20 Oral / Inh Use Only*) 200 mg NEB QIDR [facility] Last Admin: 04/02/17 08:37 Dose: Not Given Albuterol Sulfate (Ventolin 0.083% Nebulizer Soln -) 1 amp NEB QIDR [facility] Last Admin: 04/02/17 07:10 Dose: 1 amp Bupropion HCl (Wellbutrin Xl -) 150 mg PO DAILY [facility] Last Admin: 04/01/17 13:05 Dose: 150 mg Dexamethasone Sodium Phosphate (Decadron Injection -) 4 mg IVPB Q8H-IV [facility] Last Admin: 04/02/17 10:59 Dose: 4 mg Diltiazem HCl (Cardizem Cd -) 300 mg PO DAILY [facility] Last Admin: 04/01/17 10:53 Dose: 300 mg Docusate Sodium (Colace -) 100 mg PO TID [facility] Last Admin: 04/02/17 06:32 Dose: 100 mg Gabapentin (Neurontin -) 100 mg PO TID [facility] Last Admin: 04/02/17 06:32 Dose: Not Given Guaifenesin (Diabetic Tussin Dm -) 10 ml PO Q6H [facility] Last Admin: 04/02/17 10:58 Dose: 10 ml Heparin Sodium (Porcine) (Heparin -) 1,000 unit IVPUSH PRN PRN PRN Reason: Heparin Last Admin: 04/01/17 10:54 Dose: 1,000 unit Heparin Sodium (Porcine) (Heparin -) 5,000 unit IVPUSH PRN PRN PRN Reason: Heparin Last Admin: 04/01/17 17:53 Dose: 5,000 unit Heparin Sodium (Porcine) 25, (000 unit/ Sodium Chloride) 500 mls @ 20 mls/hr IV TITR [facility]; 1,000 UNIT/HR PRN Reason: Protocol Last Titration: 04/02/17 01:45 Dose: 1,650 unit/hr, 33 mls/hr Sodium Chloride (Normal Saline -) 1,000 mls @ 75 mls/hr IV ASDIR [facility] Last Admin: 04/02/17 11:00 Dose: 75 mls/hr Piperacillin Sod/Tazobactam (Sod 3.375 gm/ Dextrose) 50 mls @ 100 mls/hr IVPB Q8H-IV [facility] PRN Reason: Protocol Insulin Aspart (Novolog Vial Sliding Scale -) 1 vial SQ ACHS [facility] PRN Reason: Protocol Last Admin: 04/02/17 06:36 Dose: Not Given Levothyroxine Sodium (Synthroid -) 75 mcg PO DAILY@0700 [facility] Last Admin: 04/02/17 06:30 Dose: 75 mcg Lidocaine (Lidoderm Patch -) 1 patch TP HS [facility] Last Admin: 04/01/17 21:31 Dose: Not Given Miscellaneous (Duragesic Patch Waste) 1 each TD PRN PRN Last Admin: 03/31/17 06:32 Dose: 1 each Miscellaneous (Lidoderm Patch Removal) 1 each MC DAILY [facility] Last Admin: 04/01/17 10:56 Dose: Not Given Montelukast Sodium (Singulair -) 10 mg PO HS [facility] Last Admin: 04/01/17 21:30 Dose: 10 mg Ondansetron HCl (Zofran Injection) 4 mg IVPB Q8H PRN PRN Reason: NAUSEA Last Admin: 03/26/17 12:54 Dose: 4 mg Pantoprazole Sodium (Protonix Iv) 40 mg IVPUSH DAILY [facility] Polyethylene Glycol (Miralax (For Daily Use) -) 17 gm PO DAILY [facility] Last Admin: 04/01/17 10:56 Dose: Not Given Senna (Senna -) 2 tab PO HS PRN PRN Reason: CONSTIPATION Last Admin: 04/01/17 21:30 Dose: 2 tab Tiotropium [place] (Spiriva -) 1 puff IH DAILY [facility] Last Admin: 04/02/17 11:00 Dose: 1 puff Tramadol HCl (Ultram -) 75 mg PO Q6H PRN PRN Reason: PAIN Last Admin: 04/01/17 17:27 Dose: 75 mg Tramadol HCl (Ultram -) 75 mg PO DAILY [facility] Last Admin: 04/02/17 10:55 Dose: 75 mg Warfarin Sodium (Coumadin -) 3 mg PO DAILY@1800 [facility] Last Admin: 04/01/17 17:40 Dose: 3 mg - Objective Vital Signs: Vital Signs Temperature 97.8 F 04/02/17 10:07 Pulse Rate 110 H 04/02/17 10:07 Respiratory Rate 20 04/02/17 10:07 Blood Pressure 109/55 04/02/17 10:07 O2 Sat by Pulse Oximetry (%) 99 04/01/17 09:00 Eyes: Yes: WNL, Conjunctiva Clear, EOM Intact HENT: Yes: WNL, Atraumatic, Normocephalic Neck: Yes: WNL, Supple, Trachea Midline Cardiovascular: Yes: WNL, Regular Rate and Rhythm Respiratory: Yes: WNL, Regular, CTA Bilaterally Gastrointestinal: Yes: WNL, Normal Bowel Sounds Genitourinary: Yes: WNL Musculoskeletal: Yes: WNL Extremities: Yes: WNL Edema: Yes Edema: LLE: 3+, RLE: 3+ Integumentary: Yes: WNL Neurological: Yes: WNL, Alert, Oriented ...Motor Strength: WNL Psychiatric: Yes: WNL Labs: CBC, BMP 04/02/17 06:00 04/02/17 06:00 INR, PTT INR 1.45 (0.82-1.09) H 04/02/17 06:00 Assessment/Plan - Problems - Problems (1) Leukocytosis Code(s): D72.829 - ELEVATED WHITE BLOOD CELL COUNT, UNSPECIFIED (2) MRSA (methicillin resistant Staphylococcus aureus) colonization Code(s): Z22.322 - CARRIER OR SUSPECTED CARRIER OF METHICILLIN RESIS STAPH (3) Thrombocytopenia Code(s): D69.6 - THROMBOCYTOPENIA, UNSPECIFIED (4) A-fib Assessment/Plan: Continue diltiazem CD for HR control. On IV heparin until INR 2-3 on warfarin (presently 1.2). Code(s): I48.91 - UNSPECIFIED ATRIAL FIBRILLATION Qualifiers: (5) Abscess Code(s): L02.91 - CUTANEOUS ABSCESS, UNSPECIFIED (6) Anemia Code(s): D64.9 - ANEMIA, UNSPECIFIED (7) Anxiety and depression Code(s): F41.9 - ANXIETY DISORDER, UNSPECIFIED; F32.9 - MAJOR DEPRESSIVE DISORDER, SINGLE EPISODE, UNSPECIFIED (8) Cancer of ovary Code(s): C56.9 - MALIGNANT NEOPLASM OF UNSPECIFIED OVARY Qualifiers: (9) Cellulitis Code(s): L03.90 - CELLULITIS, UNSPECIFIED Qualifiers: Qualified Code(s): L03.116 - Cellulitis of left lower limb (10) Diabetes Code(s): E11.9 - TYPE 2 DIABETES MELLITUS WITHOUT COMPLICATIONS (11) HTN (hypertension) Code(s): I10 - ESSENTIAL (PRIMARY) HYPERTENSION Qualifiers: (12) Primary cancer of ovary with widespread metastatic disease Code(s): C56.9 - MALIGNANT NEOPLASM OF UNSPECIFIED OVARY; C80.0 - DISSEMINATED MALIGNANT NEOPLASM, UNSPECIFIED (13) SOB (shortness of breath) Assessment/Plan: SOB on minimal exertion; now with dry cough. On cough supressants and antibiotics. Code(s): R06.02 - SHORTNESS OF BREATH (14) Hypothyroid Code(s): E03.9 - HYPOTHYROIDISM, UNSPECIFIED (15) Lymphedema Code(s): I89.0 - LYMPHEDEMA, NOT ELSEWHERE CLASSIFIED
[2017-04-02] MEDS: LIDOCAINE PATCH REMOVAL MC SCH (11:15)
[2017-04-02] MEDS: POLYETHYLENE GLYCOL 3350 119 GM BTL PO SCH (11:15)
[2017-04-02] MEDS: HEPARIN - 25,000 UNIT in SODIUM CHLORIDE 495 ML IV SCH ×2 (11:17→14:53)
[2017-04-02] MEDS: POTASSIUM CHLORIDE TABS 20 MEQ TABLET.ER (FP) PO SCH (11:46)
[2017-04-02] MEDS: HEPARIN NA (PORCINE) 5,000 UNITS/ML 1ML VIAL IVPUSH PRN (12:05)
--- NOTE | 2017-04-02 12:34 | PN ---
Progress Note (short form) - Note Progress Note: Patient seen and examined. continues to have cough Declined to go to RT today new today : cr of 1.4, K of 5.6 WCC 18.4K Overnight events noted. O/E: General: NAD, looks weak and fatigued. Cor: RSR, No murmurs, No gallops Lungs: Clear to P&A Abd: Soft, Normal bowel sounds, No organomegaly Ext:No significant edema Skin: edematous LE: chronic LE edema Last Vital Signs Temp Pulse Resp BP Pulse Ox 97.8 F 110 H 20 109/55 99 04/02/17 10:07 04/02/17 10:07 04/02/17 10:07 04/02/17 10:07 04/02/17 11:57 CBC, BMP 04/02/17 06:00 04/02/17 06:00 Current Medications Generic Name Dose Route Start Last Admin Trade Name Freq PRN Reason Stop Dose Admin Acetaminophen 500 mg 03/22/17 18:38 04/01/17 11:14 Tylenol - PO 500 mg Q4H PRN Administration FEVER OR PAIN Acetylcysteine 200 mg 04/01/17 14:30 Mucomyst 20 Oral / Inh Use Only* NEB QIDR [facility] Albuterol Sulfate 1 amp 03/31/17 18:00 04/01/17 12:11 Ventolin 0.083% Nebulizer Soln - NEB 1 amp QIDR [facility] Administration Bupropion HCl 150 mg 03/23/17 10:00 04/01/17 13:05 Wellbutrin Xl - PO 150 mg DAILY [facility] Administration Dexamethasone Sodium Phosphate 4 mg 03/30/17 18:00 04/01/17 10:53 Decadron Injection - IVPB 4 mg Q8H-IV [facility] Administration Diltiazem HCl 300 mg 03/23/17 10:00 04/01/17 10:53 Cardizem Cd - PO 300 mg DAILY [facility] Administration Docusate Sodium 100 mg 03/26/17 22:00 04/01/17 13:47 Colace - PO 100 mg TID [facility] Administration Gabapentin 100 mg 03/29/17 22:00 04/01/17 13:41 Neurontin - PO Not Given TID [facility] Guaifenesin 10 ml 03/30/17 17:00 04/01/17 13:04 Diabetic Tussin Dm - PO 10 ml Q6H [facility] Administration Heparin Sodium (Porcine) 1,000 unit 03/30/17 14:39 04/01/17 10:54 Heparin - IVPUSH 1,000 unit PRN PRN Administration Heparin Heparin Sodium (Porcine) 5,000 unit 03/30/17 14:39 03/31/17 23:26 Heparin - IVPUSH 5,000 unit PRN PRN Administration Heparin Heparin Sodium (Porcine) 25, 500 mls @ 20 mls/hr 03/30/17 14:45 04/01/17 16: 45 000 unit/ Sodium Chloride IV Not Given TITR [facility] Protocol 1,000 UNIT/HR Insulin Aspart 1 vial 03/24/17 18:16 04/01/17 13:25 Novolog Vial Sliding Scale - SQ 4 unit ACHS [facility] Administration Protocol Levothyroxine Sodium 75 mcg 03/23/17 07:00 04/01/17 06:16 Synthroid - PO 75 mcg DAILY@0700 [facility] Administration Lidocaine 1 patch 03/25/17 00:15 03/31/17 21:34 Lidoderm Patch - TP Not Given HS [facility] Miscellaneous 1 each 03/25/17 00:05 03/31/17 06:32 Duragesic Patch Waste TD 1 each PRN PRN Administration Miscellaneous 1 each 03/25/17 10:00 04/01/17 10:56 Lidoderm Patch Removal MC Not Given DAILY [facility] Montelukast Sodium 10 mg 03/22/17 22:00 03/31/17 21:32 Singulair - PO 10 mg HS [facility] Administration Ondansetron HCl 4 mg 03/23/17 12:10 03/26/17 12:54 Zofran Injection IVPB 4 mg Q8H PRN Administration NAUSEA Polyethylene Glycol 17 gm 03/23/17 10:00 04/01/17 10:56 Miralax (For Daily Use) - PO Not Given DAILY [facility] Potassium Chloride 20 meq 03/23/17 10:00 04/01/17 13:05 K-Dur - PO 20 meq BID [facility] Administration Senna 2 tab 03/22/17 18:13 03/31/17 22:05 Senna - PO 2 tab HS PRN Administration CONSTIPATION Tiotropium [place] 1 puff 03/23/17 10:00 04/01/17 14:42 Spiriva - IH 1 puff DAILY [facility] Administration Tramadol HCl 75 mg 03/28/17 22:59 04/01/17 10:59 Ultram - PO 75 mg Q6H PRN Administration PAIN Warfarin Sodium 3 mg 03/29/17 18:00 03/31/17 18:31 Coumadin - PO 3 mg DAILY@1800 [facility] Administration Assessment/Plan: Metastatic High grade mulelrian Ca, s/p progression of disease on two lines ( carbo/Taxol , [place] ) Initially presented with thrombocytopenia, now resolved CT scans show progressive diseasse New T10 met/epidural disease pain control ( as per pt better controlled) Asymmetric weakness of the RLE: sen by Neuro. consult noted Afib: Hep with Coumadin [place] ?episode of hematemesis, ?from coughing, crit stable. INR/PTT reviewed Cough worsening CT Chest non-con appreciate ID consult for zosyn T10 metastases-- for RT Leucocytosis, likely from dex Could not Lie flat today due to SOB/Cough today will repeat Hyponatemia Now cr is 1.4 d/w renal hold lasix give IVF monitor cr/heart rate. Pedal edema- Do think it is chronic LE Doppler negative pt on heparin drip. d/w
--- NOTE | 2017-04-02 13:56 | CON.GI ---
Consult Consult Specialty:: GI Referred by:: Dr. High Reason for Consultation:: ? 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 Called to evaluate vomiting. Ms. Estrada states that she vomited "Bile like stuff with brown tinge" last night. There was some associated epigastric burning when this occurred that has since resolved and there has been no recurrence of vomiting. She attributes this to having been given Zantac for the first time "in a while". She denies abdominal pain. She has never had an upper endoscopy or colonoscopy. She has a baseline anemia that remains unchanged from admission. There has been no reported gross hematemesis , melena or rectal bleeding. She complains of diminished taste for food and some looser bowel movements over the last 2-3 days. - History Source History Provided By: Patient, Family Member (daughter present at bedside) - Past Medical History Cardio/Vascular: Yes: AFIB, HTN, Other (chronic lymphedema) Pulmonary: Yes: COPD, Other (recently had a chest tube removed). No: O2 Dependent Gastrointestinal: Yes: GERD ...: No Psych: Yes: Anxiety Endocrine: Yes: Diabetes Mellitus, Hyperthyroidism, Other (Morbid Obesity) - Past Surgical History Additional Surgical History: portacath - Alcohol/Substance Use Hx Alcohol Use: No History of Substance Use: reports: None - Smoking History Smoking history: Never smoked Have you smoked in the past 12 months: No Aproximately how many cigarettes per day: 0 If you are a former smoker, when did you quit?: n - Social History Usual Living Arrangement: With Child ADL: Family Assistance Occupation: Unemployed [facility] History of Recent Travel: No Home Medications - Allergies Allergies/Adverse Reactions: Allergies Allergy/AdvReac Type Severity Reaction Status Date / Time hydromorphone HCl AdvReac Severe Verified 01/25/17 05:56 [From Dilaudid] oxycodone AdvReac Severe Verified 01/24/17 19:39 - Home Medications Home Medications: Ambulatory Orders Levothyroxine [Synthroid -] 75 mcg PO DAILY 10/17/12 Loratadine [Claritin -] 10 mg PO DAILY 10/17/12 Metformin HCl [Glucophage] 500 mg PO BID 10/17/12 [place]-3 Acid Ethyl Esters [Lovaza -] 1,000 mg PO TID 10/17/12 Insulin (Novolog) [Novolog Flexpen -] See Protocol SQ ACHS #1 pen 10/03/16 Ranitidine [Zantac -] 150 mg PO BID #30 tab 10/03/16 Potassium Chloride 10 meq PO DAILY 10/24/16 Diltiazem Cd [Cardizem Cd -] 300 mg PO DAILY 10/25/16 Glipizide 5 mg PO DAILY #60 tablet 10/31/16 Furosemide [Lasix -] 40 mg PO DAILY 01/02/17 Montelukast Na [Singulair -] 10 mg PO HS 01/02/17 Albuterol Sulfate Inhaler - [Ventolin HFA Inhaler -] 2 puff IH Q4H PRN #5 inhaler 02/26/17 Bupropion HCl [Wellbutrin Xl -] 150 mg PO DAILY #90 tab.sr.24h 02/26/17 FENTANYL 12mcg PATCH [DURAGESIC 12mcg PATCH -] 1 each TD Q72H #15 patch MDD 1 Fentanyl Patch Waste [Duragesic Patch Waste] 1 each TD Q3D PRN #15 each Furosemide [Lasix -] 40 mg PO BID@0600,1400 #60 tablet 02/26/17 Lytes/Yerba Neelima [Mouthkote Solution -] 1 applic MM DAILY #1 applic 02/26/17 Nystatin Powder [Nystop Powder -] 15 gm TP BID #60 powder 02/26/17 [place]-3 Acid Ethyl Esters [Lovaza -] 1 gm PO BID #90 cap 02/26/17 Polyethylene Glycol 3350 [Miralax 119 gm Btl -] 17 gm PO DAILY #1 bottle Potassium Chloride [K-Dur -] 20 meq PO BID #60 tablet.er 02/26/17 Sennosides [Senna -] 2 tab PO HS PRN #60 tablet 02/26/17 Tiotropium [place] [Spiriva] 1 puff IH DAILY #5 inh 02/26/17 Tramadol HCl [Ultram -] 75 mg PO Q6H PRN #90 tablet MDD 4 02/26/17 Warfarin Na [Coumadin -] 2 mg PO DAILY@1800 #30 tablet 02/26/17 Zinc Oxide 1 applic TP BID #2 tube 02/26/17 Family Disease History - Family Disease History Family Disease History: Diabetes: Mother, CA: Mother, Other: Grandparent (mat GM : uterine ca), Brother (3, 1 : drug O/D, 1 : AIDS), Sister (1, AIDS), Daughter (2, healthy) Review of Systems - Review of Systems Constitutional: reports: Weakness. denies: Fever Cardiovascular: reports: Palpitations, Shortness of Breath. denies: Chest Pain Respiratory: reports: Cough Gastrointestinal: reports: Diarrhea (loose BM's), Vomiting. denies: Abdominal Pain, Constipation, Melena, Rectal Bleeding, Vomiting Blood Physical Exam-GI Vital Signs: Vital Signs Temperature 97.8 F 04/02/17 10:07 Pulse Rate 110 H 04/02/17 10:07 Respiratory Rate 20 04/02/17 10:07 Blood Pressure 109/55 04/02/17 10:07 O2 Sat by Pulse Oximetry (%) 99 04/02/17 11:57 Exam limited as Ms. Estrada opted to remain seated in chair Constitutional: Yes: Calm Eyes: No: Sclera Icterus Cardiovascular: Yes: Tachycardia, Pulse Irregular Respiratory: Yes: Diminished (at left base) Gastrointestinal Inspection: Yes: Other (Large Pannus limiting exam). No: Distention ...Auscultate: Yes: Normoactive Bowel Sounds ...Palpate: Yes: Hepatomegaly, Splenomegaly. No: Tenderness ...Percussion: No: Tympanitic Edema: Yes (B/L LE edema w/hypertrop ) Neurological: Yes: Alert, Oriented Labs: CBC, BMP 04/02/17 06:00 04/02/17 06:00 INR, PTT INR 1.45 (0.82-1.09) H 04/02/17 06:00 Hepatic Panel Total Bilirubin 0.6 mg/dL (0.2-1.0) 04/02/17 06:00 AST 88 U/L (15-37) H D 04/02/17 06:00 ALT 42 U/L (12-78) 04/02/17 06:00 Alkaline Phosphatase 212 U/L (45-117) H 04/02/17 06:00 Albumin 2.4 g/dl (3.4-5.0) L 04/02/17 06:00 Imaging - Results Cat Scan: Report Reviewed Problem List - Problems (1) Vomiting Assessment/Plan: No further vomiting noted and no gross hematemesis reported previously. Given overall clinical situation as well as body habitus, will continue conservative measures as opposed to invasive testing at this time. Discussed the plan with Ms. Estrada and her daughter: - PO PPI - monitor for overt GI bleeding. If gross hematemesis / melena, invasive testing would be revisited Code(s): R11.10 - VOMITING, UNSPECIFIED
--- NOTE | 2017-04-02 14:41 | PN ---
Progress Note (short form) - Note Progress Note: PULMONARY CONSULTATION DICTATED 04/02/17 IMP METASTATIC HIGH GRADE MULLERIAN CA COUGH,DYSPNEA ?SECONDARY TO EXTENSIVE METS,+ H/O ASTHMA HTN AFIB CHRONIC LYMPHADEMA DM SURY THROMBOCYTOPENIA MORBID OBESITY PLAN INHALED BRONCHODILATORS O2 CONTINUE STEROIDS ANTIBIOTICS PER ID ANTI-TUSSIVES MONITOR LYTES,RENAL FUNCTION,PLT CT DR KATE Problem List - Problems (1) Anxiety Code(s): F41.9 - ANXIETY DISORDER, UNSPECIFIED (2) Hypothyroidism Code(s): E03.9 - HYPOTHYROIDISM, UNSPECIFIED (3) PAF (paroxysmal atrial fibrillation) Code(s): I48.0 - PAROXYSMAL ATRIAL FIBRILLATION (4) Thrombocytopenia Code(s): D69.6 - THROMBOCYTOPENIA, UNSPECIFIED (5) A-fib Code(s): I48.91 - UNSPECIFIED ATRIAL FIBRILLATION Qualifiers: (6) Acute dyspnea Code(s): R06.00 - DYSPNEA, UNSPECIFIED (7) Acute renal insufficiency Code(s): N28.9 - DISORDER OF KIDNEY AND URETER, UNSPECIFIED (8) Anemia Code(s): D64.9 - ANEMIA, UNSPECIFIED (9) Cancer of ovary Code(s): C56.9 - MALIGNANT NEOPLASM OF UNSPECIFIED OVARY Qualifiers: (10) Diabetes Code(s): E11.9 - TYPE 2 DIABETES MELLITUS WITHOUT COMPLICATIONS Qualifiers: Diabetes mellitus type: type 2 Diabetes mellitus complication status: without complication (11) HTN (hypertension) Code(s): I10 - ESSENTIAL (PRIMARY) HYPERTENSION Qualifiers: (12) Morbidly obese Code(s): E66.01 - MORBID (SEVERE) OBESITY DUE TO EXCESS CALORIES (13) Primary cancer of ovary with widespread metastatic disease Code(s): C56.9 - MALIGNANT NEOPLASM OF UNSPECIFIED OVARY; C80.0 - DISSEMINATED MALIGNANT NEOPLASM, UNSPECIFIED (14) Pulmonary nodules/lesions, multiple Code(s): R91.8 - OTHER NONSPECIFIC ABNORMAL FINDING OF LUNG FIELD (15) SOB (shortness of breath) Code(s): R06.02 - SHORTNESS OF BREATH (16) Hypothyroid Code(s): E03.9 - HYPOTHYROIDISM, UNSPECIFIED (17) Cough Code(s): R05 - COUGH
[2017-04-02] MEDS: WARFARIN NA 3 MG TABLET PO SCH (17:02)
[2017-04-02] MEDS: PIPERACILLIN/TAZOB 3.375 GM 3.375 GM in DEXTROSE 5%-WATER - 50 ML IVPB SCH (17:02)
[2017-04-02] MEDS: ALBUTEROL SO4 18 GM HFA INHALER IH PRN ×2 (17:18→22:28)
--- NOTE | 2017-04-02 17:47 | PN ---
Progress Note (short form) - Note Progress Note: Renal follow up for SURY Pt seen and examined at the bedside continues to have a cough + SOB, no chest pain + episode of N/V making urine s/p PO lasix yesterday started on IVF last night Vital Signs Temperature 97.5 F L 04/02/17 15:14 Pulse Rate 115 H 04/02/17 15:14 Respiratory Rate 20 04/02/17 15:14 Blood Pressure 102/53 04/02/17 15:14 O2 Sat by Pulse Oximetry (%) 99 04/02/17 11:57 Intake & Output 03/30/17 03/31/17 04/01/17 04/02/17 23:59 23:59 23:59 23:59 Intake Total 1024 1206 1308 437 Balance 1024 1206 1308 437 Weight 158.312 kg 156.671 kg NAD RRRR dry MM CTA Obese Abd 3+ edema in le CBC, BMP 04/02/17 06:00 04/02/17 06:00 Current Medications Acetaminophen (Tylenol -) 500 mg PO DAILY [facility] Last Admin: 04/02/17 10:59 Dose: 500 mg Acetylcysteine (Mucomyst 20 Oral / Inh Use Only*) 200 mg NEB QIDR [facility] Last Admin: 04/02/17 11:56 Dose: 200 mg Albuterol Sulfate (Ventolin 0.083% Nebulizer Soln -) 1 amp NEB QIDR [facility] Last Admin: 04/02/17 11:56 Dose: 1 amp Albuterol Sulfate (Ventolin Hfa Inhaler -) 2 puff IH Q4H PRN PRN Reason: SHORT OF BREATH/WHEEZING Last Admin: 04/02/17 17:18 Dose: 2 puff Bupropion HCl (Wellbutrin Xl -) 150 mg PO DAILY [facility] Last Admin: 04/02/17 10:45 Dose: 150 mg Dexamethasone Sodium Phosphate (Decadron Injection -) 4 mg IVPB Q8H-IV [facility] Last Admin: 04/02/17 17:02 Dose: 4 mg Diltiazem HCl (Cardizem Cd -) 300 mg PO DAILY [facility] Last Admin: 04/02/17 10:45 Dose: 300 mg Docusate Sodium (Colace -) 100 mg PO TID [facility] Last Admin: 04/02/17 14:52 Dose: Not Given Gabapentin (Neurontin -) 100 mg PO TID [facility] Last Admin: 04/02/17 14:53 Dose: Not Given Guaifenesin (Diabetic Tussin Dm -) 10 ml PO Q6H [facility] Last Admin: 04/02/17 17:21 Dose: 10 ml Heparin Sodium (Porcine) (Heparin -) 1,000 unit IVPUSH PRN PRN PRN Reason: Heparin Last Admin: 04/02/17 12:05 Dose: 1,000 unit Heparin Sodium (Porcine) (Heparin -) 5,000 unit IVPUSH PRN PRN PRN Reason: Heparin Last Admin: 04/01/17 17:53 Dose: 5,000 unit Heparin Sodium (Porcine) 25, (000 unit/ Sodium Chloride) 500 mls @ 20 mls/hr IV TITR [facility]; 1,000 UNIT/HR PRN Reason: Protocol Last Admin: 04/02/17 14:53 Dose: Not Given Sodium Chloride (Normal Saline -) 1,000 mls @ 75 mls/hr IV ASDIR [facility] Last Admin: 04/02/17 11:00 Dose: 75 mls/hr Piperacillin Sod/Tazobactam (Sod 3.375 gm/ Dextrose) 50 mls @ 100 mls/hr IVPB Q8H-IV [facility] PRN Reason: Protocol Last Admin: 04/02/17 17:02 Dose: 100 mls/hr Insulin Aspart (Novolog Vial Sliding Scale -) 1 vial SQ ACHS [facility] PRN Reason: Protocol Last Admin: 04/02/17 17:03 Dose: Not Given Levothyroxine Sodium (Synthroid -) 75 mcg PO DAILY@0700 [facility] Last Admin: 04/02/17 06:30 Dose: 75 mcg Lidocaine (Lidoderm Patch -) 1 patch TP [facility] Last Admin: 04/01/17 21:31 Dose: Not Given Miscellaneous (Duragesic Patch Waste) 1 each TD PRN PRN Last Admin: 03/31/17 06:32 Dose: 1 each Miscellaneous (Lidoderm Patch Removal) 1 each MC DAILY [facility] Last Admin: 04/02/17 11:15 Dose: Not Given Montelukast Sodium (Singulair -) 10 mg PO HS [facility] Last Admin: 04/01/17 21:30 Dose: 10 mg Ondansetron HCl (Zofran Injection) 4 mg IVPB Q8H PRN PRN Reason: NAUSEA Last Admin: 03/26/17 12:54 Dose: 4 mg Pantoprazole Sodium (Protonix -) 40 mg PO DAILY [facility] Polyethylene Glycol (Miralax (For Daily Use) -) 17 gm PO DAILY [facility] Last Admin: 04/02/17 11:15 Dose: Not Given Senna (Senna -) 2 tab PO HS PRN PRN Reason: CONSTIPATION Last Admin: 04/01/17 21:30 Dose: 2 tab Tiotropium [place] (Spiriva -) 1 puff IH DAILY [facility] Last Admin: 04/02/17 11:00 Dose: 1 puff Tramadol HCl (Ultram -) 75 mg PO Q6H PRN PRN Reason: PAIN Last Admin: 04/01/17 17:27 Dose: 75 mg Tramadol HCl (Ultram -) 75 mg PO DAILY [facility] Last Admin: 04/02/17 10:55 Dose: 75 mg Warfarin Sodium (Coumadin -) 3 mg PO DAILY@1800 [facility] Last Admin: 04/02/17 17:02 Dose: 3 mg 61 year old woman with PMhx of Metastatic Ovarian Ca (lung, Liver) on Chemo, Hypertension, DM Type 2, Chronic Lymphedema, Obesity presented with thrombocytopenia and found to have hyponatremia. #Hypoosmolar Hyponatremia suspect given clinical response to diuretics that pt has some degree of hypovolemia will give Saline and monitor response #Acute Renal Insufficiency in setting of diuretics suspect hypovolemia given poor oral intake and diuretics agree with NS at 75 trend BUN/Cr and electrolytes Mirza Zuleta DO
--- NOTE | 2017-04-02 20:21 | CONS ---
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 Patient had chemotherapy 2 weeks prior to admission. On admission, she complained of nausea, but no vomiting. She is noted to be hyponatremic. She is admitted to the above. The patient was evaluated by Dr. Zuleta for renal consultation. Of note, for the past couple of days the patient has been complaining of increasing shortness of breath and cough initially productive of some yellowish sputum and now clear. She denies any chest pain or palpitations. Denied any nausea, vomiting, or diaphoresis. PAST MEDICAL HISTORY: Includes metastatic ovarian carcinoma with metastasis to the liver and lung, hypertension, obesity, chronic lymphedema, hypertension, diabetes, atrial fibrillation, and asthma. REVIEW OF SYSTEMS: Positive for orthopnea, positive dyspnea, positive cough. No chest pain, no palpitations. No nausea or vomiting. No abdominal pain. CURRENT MEDICATIONS: Include Duragesic, Lidoderm, Zofran, Decadron, Tylenol, piperacillin, heparin, Coumadin, gabapentin, Wellbutrin, Spiriva, diabetic tussin, albuterol, Cardizem, Colace, MiraLAX, senna, normal saline, Singulair, Mucomyst, Ultram, Protonix, and Synthroid. PHYSICAL EXAMINATION: General: The patient is an obese female, well-developed, well-nourished, mildly dyspneic with no cough, but no acute respiratory distress. Vital signs: She is currently afebrile. Blood pressure is 109/65, respiratory rate is 20, O2 saturation is 99% on 2 L. HEENT: Examination is normocephalic, atraumatic. Neck: Supple. Heart: Irregularly irregular. Normal S1, S2. Chest: A few scattered bilateral rhonchi. Abdomen: Soft. Bowel sounds are positive. Extremities: Bilateral extremity edema and chronic lymphedema. LABORATORY: WBC is 16.1, hemoglobin 9.4, hematocrit 28.7, platelet count of 160,000, 80 neutrophils, 1 lymphocyte, and 4 monocytes. Chemistries: BUN is 29, creatinine 1.4. Chest CT on March 25 reveals progressive metastatic disease including increased peritoneal carcinomatosis and osseous metastasis, mild thickening of endometrium, extensive bilateral pulmonary nodules. IMPRESSION: 1. Advanced metastatic high-grade malarian carcinoma. 2. History of asthma. 3. Cough with chest congestion, possible underlying obstructive airway disease, possibly secondary to extensive metastasis. 4. Diabetes. 5. Atrial fibrillation. 6. Hypertension. 7. Lymphedema. 8. Acute kidney injury. PLAN: Continue antibiotic therapy as per Infectious Disease, supplemental O2, inhaled bronchodilators. Continue Decadron, antitussives, and follow up chest x-ray. Monitor platelet count. Monitor electrolytes as well as monitor renal function. MARIBELL KATE M.D. [id number]
--- NOTE | 2017-04-02 21:21 | PN ---
Progress Note (short form) - Note Progress Note: Radiation Oncology Pt refused RT. Unable to lay flat. Seen by Pulmonary and GI. 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 Will begin palliative RT when medically stabilized and able to tolerate supine positioning. Cont supportive care.
[2017-04-02] MEDS: MONTELUKAST NA 10 MG TABLET PO SCH (21:52)
[2017-04-02] MEDS: LIDOCAINE 5% TOPICAL PATCH TP SCH (21:53)
[2017-04-03] MEDS: ACETYLCYSTEINE 20% 200MG/ML 30 ML VIAL *FOR ORAL / INH USE ONLY NEB SCH ×5 (00:05→23:37)
[2017-04-03] MEDS: ALBUTEROL SO4 0.083% IH SOL 2.5 MG/3 ML VIAL.NEB. NEB SCH ×5 (01:05→23:37)
[2017-04-03] MEDS: PIPERACILLIN/TAZOB 3.375 GM 3.375 GM in DEXTROSE 5%-WATER - 50 ML IVPB SCH ×3 (01:27→18:29)
[2017-04-03] MEDS: DEXAMETHASONE SOD PHOSPHATE 4 MG/1 ML VIAL IVPB SCH ×3 (01:29→18:29)
[2017-04-03] MEDS: SODIUM CHLORIDE 1,000 ML IV SCH ×3 (01:38→16:22)
[2017-04-03] MEDS: LEVOTHYROXINE NA 75 MCG TABLET (FP) PO SCH (06:56)
[2017-04-03] MEDS: DOCUSATE SODIUM 100 MG CAPSULE (FP) PO SCH ×3 (06:56→21:33)
[2017-04-03] MEDS: guaiFENesin/D-M SUGAR-FREE/ACLHOL-FREE 118 ML BOTTLE PO SCH ×4 (06:56→23:11)
[2017-04-03] MEDS: GABAPENTIN 100 MG CAPSULE (FP) PO SCH ×3 (06:56→21:34)
[2017-04-03] MEDS: traMADol HCL 50 MG TABLET PO PRN ×2 (07:02→21:46)
[2017-04-03] MEDS: INSULIN SLIDING SCALE (NOVOLOG) 1 VIAL SQ SCH ×4 (07:09→21:34)
[2017-04-03 07:49] LABS: HEMATOCRIT 28.2 % (32.4-45.2); HEMOGLOBIN 9.1 GM/dL (10.7-15.3); MCH 32.3 pg (25.7-33.7); MCHC 32.3 g/dl (32.0-36.0); MEAN CELL VOLUME 99.9 fl (80-96); MEAN PLT VOLUME 9.8 fl (7.5-11.1); PLATELET COUNT 182 K/MM3 (134-434); RBC 2.82 M/mm3 (3.60-5.2); RDW 24.9 % (11.6-15.6)
[2017-04-03 08:01] LABS: INR 1.72 (0.82-1.09); PROTHROMBIN TIME (PATIENT) 19.4 SEC (9.98-11.88)
--- NOTE | 2017-04-03 08:37 | PN ---
Progress Note, Physician Chief Complaint: Pt A&Ox3; OOB in chair; cough is better, but still present. Dyspneic with minimal exertion. Pt's daughter is at bedside. History of Present Illness: Ms. 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 Pt presented to the ED after outpt labs reveled thrombocytopenia to 39k. Coumadin was held and is still on hold, no active bleed noted. Pt received 1 unit platelets and is being admitted for further transfusions. Of note, pt was climbing the stairs, when she reached the final step her leg went weak and then pivoted around. She now has some eccyhymosis to her lateral side, slip was witnessed by daughter and EMS worker, she did not hit her head, xrays pending. History Source: Patient, Family Member Limitations to Obtaining History: No Limitations - Past Medical History Cardiovascular: Yes: AFIB, HTN, Other (chronic lymphedema) Pulmonary: Yes: COPD, Other (recently had a chest tube removed). No: O2 Dependent Gastrointestinal: Yes: GERD Heme/Onc: Yes: Anemia, Other Endocrine: Yes: Diabetes Mellitus, Hyperthyroidism - Current Medication List Current Medications: Active Medications Acetaminophen (Tylenol -) 500 mg PO DAILY [facility] Last Admin: 04/02/17 10:59 Dose: 500 mg Acetylcysteine (Mucomyst 20 Oral / Inh Use Only*) 200 mg NEB QIDR [facility] Last Admin: 04/03/17 06:59 Dose: 200 mg Albuterol Sulfate (Ventolin 0.083% Nebulizer Soln -) 1 amp NEB QIDR [facility] Last Admin: 04/03/17 06:59 Dose: 1 amp Albuterol Sulfate (Ventolin Hfa Inhaler -) 2 puff IH Q4H PRN PRN Reason: SHORT OF BREATH/WHEEZING Last Admin: 04/02/17 22:28 Dose: 2 puff Bupropion HCl (Wellbutrin Xl -) 150 mg PO DAILY [facility] Last Admin: 04/02/17 10:45 Dose: 150 mg Dexamethasone Sodium Phosphate (Decadron Injection -) 4 mg IVPB Q8H-IV [facility] Last Admin: 04/03/17 01:29 Dose: 4 mg Diltiazem HCl (Cardizem Cd -) 300 mg PO DAILY [facility] Last Admin: 04/02/17 10:45 Dose: 300 mg Docusate Sodium (Colace -) 100 mg PO TID [facility] Last Admin: 04/03/17 06:56 Dose: Not Given Gabapentin (Neurontin -) 100 mg PO TID [facility] Last Admin: 04/03/17 06:56 Dose: Not Given Guaifenesin (Diabetic Tussin Dm -) 10 ml PO Q6H [facility] Last Admin: 04/03/17 06:56 Dose: 10 ml Heparin Sodium (Porcine) (Heparin -) 1,000 unit IVPUSH PRN PRN PRN Reason: Heparin Last Admin: 04/02/17 12:05 Dose: 1,000 unit Heparin Sodium (Porcine) (Heparin -) 5,000 unit IVPUSH PRN PRN PRN Reason: Heparin Last Admin: 04/01/17 17:53 Dose: 5,000 unit Heparin Sodium (Porcine) 25, (000 unit/ Sodium Chloride) 500 mls @ 20 mls/hr IV TITR [facility]; 1,000 UNIT/HR PRN Reason: Protocol Last Titration: 04/02/17 22:01 Dose: 1,900 unit/hr, 38 mls/hr Sodium Chloride (Normal Saline -) 1,000 mls @ 75 mls/hr IV ASDIR [facility] Last Admin: 04/03/17 01:38 Dose: 75 mls/hr Piperacillin Sod/Tazobactam (Sod 3.375 gm/ Dextrose) 50 mls @ 100 mls/hr IVPB Q8H-IV [facility] PRN Reason: Protocol Last Admin: 04/03/17 01:27 Dose: 100 mls/hr Insulin Aspart (Novolog Vial Sliding Scale -) 1 vial SQ ACHS [facility] PRN Reason: Protocol Last Admin: 04/03/17 07:09 Dose: 2 unit Levothyroxine Sodium (Synthroid -) 75 mcg PO DAILY@0700 [facility] Last Admin: 04/03/17 06:56 Dose: 75 mcg Lidocaine (Lidoderm Patch -) 1 patch TP HS [facility] Last Admin: 04/02/17 21:53 Dose: Not Given Miscellaneous (Duragesic Patch Waste) 1 each TD PRN PRN Last Admin: 03/31/17 06:32 Dose: 1 each Miscellaneous (Lidoderm Patch Removal) 1 each MC DAILY [facility] Last Admin: 04/02/17 11:15 Dose: Not Given Montelukast Sodium (Singulair -) 10 mg PO HS [facility] Last Admin: 04/02/17 21:52 Dose: 10 mg Ondansetron HCl (Zofran Injection) 4 mg IVPB Q8H PRN PRN Reason: NAUSEA Last Admin: 03/26/17 12:54 Dose: 4 mg Pantoprazole Sodium (Protonix -) 40 mg PO DAILY [facility] Polyethylene Glycol (Miralax (For Daily Use) -) 17 gm PO DAILY [facility] Last Admin: 04/02/17 11:15 Dose: Not Given Senna (Senna -) 2 tab PO HS PRN PRN Reason: CONSTIPATION Last Admin: 04/01/17 21:30 Dose: 2 tab Tiotropium [place] (Spiriva -) 1 puff IH DAILY [facility] Last Admin: 04/02/17 11:00 Dose: 1 puff Tramadol HCl (Ultram -) 75 mg PO Q6H PRN PRN Reason: PAIN Last Admin: 04/03/17 07:02 Dose: 75 mg Tramadol HCl (Ultram -) 75 mg PO DAILY [facility] Last Admin: 04/02/17 10:55 Dose: 75 mg Warfarin Sodium (Coumadin -) 3 mg PO DAILY@1800 [facility] Last Admin: 04/02/17 17:02 Dose: 3 mg - Objective Vital Signs: Vital Signs Temperature 97.4 F L 04/03/17 06:30 Pulse Rate 130 H 04/03/17 06:30 Respiratory Rate 16 04/03/17 06:30 Blood Pressure 108/65 04/03/17 06:30 O2 Sat by Pulse Oximetry (%) 98 04/02/17 21:00 Constitutional: Yes: Obese Eyes: Yes: WNL HENT: Yes: WNL Neck: Yes: Supple Cardiovascular: Yes: Tachycardia, Pulse Irregular, S1 (varies in intensity) Respiratory: Yes: Diminished Gastrointestinal: Yes: Soft, Abdomen, Obese ...Rectal Exam: Yes: Deferred Genitourinary: No: Anuria Musculoskeletal: Yes: Joint Stiffness, Joint Swelling, Muscle Weakness Extremities: Yes: Cool Edema: Yes Edema: LLE: 4+, RLE: 4+ Peripheral Pulses WNL: No Peripheral Pulses: Left Doralis Pedis: 1+, Right Dorsalis Pedis: 1+ Integumentary: Yes: Rash, Venous Stasis Changes, Other (massive lymphedema) Neurological: Yes: Alert, Oriented, Unsteady Gait, Weakness Psychiatric: Yes: Other (anxiety/depression) Labs: CBC, BMP 04/03/17 06:00 INR, PTT INR 1.72 (0.82-1.09) H 04/03/17 06:00 - ....Imaging EKG: Image Reviewed (AF with RVR) Problem List - Problems (1) Leukocytosis Code(s): D72.829 - ELEVATED WHITE BLOOD CELL COUNT, UNSPECIFIED (2) MRSA (methicillin resistant Staphylococcus aureus) colonization Code(s): Z22.322 - CARRIER OR SUSPECTED CARRIER OF METHICILLIN RESIS STAPH (3) Thrombocytopenia Code(s): D69.6 - THROMBOCYTOPENIA, UNSPECIFIED (4) A-fib Assessment/Plan: Continue diltiazem CD for HR control. On IV heparin until INR 2-3 on warfarin. Maintain K 4-4.5, Mg 2-2.3, PO4 2.5-3.5. Code(s): I48.91 - UNSPECIFIED ATRIAL FIBRILLATION Qualifiers: (5) Abscess Code(s): L02.91 - CUTANEOUS ABSCESS, UNSPECIFIED (6) Anemia Code(s): D64.9 - ANEMIA, UNSPECIFIED (7) Anxiety and depression Code(s): F41.9 - ANXIETY DISORDER, UNSPECIFIED; F32.9 - MAJOR DEPRESSIVE DISORDER, SINGLE EPISODE, UNSPECIFIED (8) Cancer of ovary Code(s): C56.9 - MALIGNANT NEOPLASM OF UNSPECIFIED OVARY Qualifiers: (9) Cellulitis Code(s): L03.90 - CELLULITIS, UNSPECIFIED Qualifiers: Site of cellulitis: extremity Site of cellulitis of extremity: lower extremity Laterality: left Qualified Code(s): L03.116 - Cellulitis of left lower limb (10) Diabetes Code(s): E11.9 - TYPE 2 DIABETES MELLITUS WITHOUT COMPLICATIONS Qualifiers: Diabetes mellitus type: type 2 Diabetes mellitus complication status: without complication (11) HTN (hypertension) Code(s): I10 - ESSENTIAL (PRIMARY) HYPERTENSION Qualifiers: (12) Primary cancer of ovary with widespread metastatic disease Code(s): C56.9 - MALIGNANT NEOPLASM OF UNSPECIFIED OVARY; C80.0 - DISSEMINATED MALIGNANT NEOPLASM, UNSPECIFIED (13) SOB (shortness of breath) Assessment/Plan: SOB on minimal exertion.. On cough supressants with improvement in cough) and antibiotics. Code(s): R06.02 - SHORTNESS OF BREATH (14) Hypothyroid Code(s): E03.9 - HYPOTHYROIDISM, UNSPECIFIED (15) Lymphedema Code(s): I89.0 - LYMPHEDEMA, NOT ELSEWHERE CLASSIFIED
[2017-04-03 08:43] LABS: ALBUMIN 2.1 g/dl (3.4-5.0); ANION GAP 8 (8-16); BILIRUBIN,TOTAL 0.5 mg/dL (0.2-1.0); BLOOD UREA NITROGEN 27 mg/dL (7-18); CALCIUM 8.4 mg/dL (8.5-10.1); CHLORIDE 98 mmol/L (98-107); CO2 25 mmol/L (21-32); CREATININE 1.3 mg/dL (0.55-1.02); GLUCOSE,RANDOM 168 mg/dL (74-106); SGOT/AST 77 U/L (15-37); SGPT/ALT 40 U/L (12-78); SODIUM 131 mmol/L (136-145)
[2017-04-03 08:44] LABS: ALK PHOS 228 U/L (45-117)
--- NOTE | 2017-04-03 09:02 | PN ---
Progress Note (short form) - Note Progress Note: pt seen/ examined. more short of breath today weak Tachypneic/tachycardic Unable to go for RT yesterday Daughter at bedside productive cough Temp 97.4 F L 04/03/17 06:30 Pulse 130 H 04/03/17 06:30 Resp 16 04/03/17 06:30 BP 108/65 04/03/17 06:30 Pulse Ox 98 04/02/17 21:00 Intake & Output 04/02/17 04/02/17 04/03/17 11:59 23:59 11:59 Intake Total 558 209 2405 Balance 225 782 2269 Intake: IV 1280 Heparin - 25,000 Unit In 380 Normal Saline - 495 ml @ 1,000 UNIT/HR 20 mls/hr IV TITR [facility] Rx#: [id number] Normal Saline - 1,000 ml 900 @ 75 mls/hr IV ASDIR [facility] Rx#:[id number] IVPB 50 Oral 200 200 Oral Supplement 237 Other: Voiding Method Bedpan Bedpan # Unmeasured Voids Void 2 2 Bowel Movement Yes # Bowel Movements 2 Active Medications Acetaminophen (Tylenol -) 500 mg PO DAILY [facility] Last Admin: 04/02/17 10:59 Dose: 500 mg Acetylcysteine (Mucomyst 20 Oral / Inh Use Only*) 200 mg NEB QIDR [facility] Last Admin: 04/03/17 06:59 Dose: 200 mg Albuterol Sulfate (Ventolin 0.083% Nebulizer Soln -) 1 amp NEB QIDR [facility] Last Admin: 04/03/17 06:59 Dose: 1 amp Albuterol Sulfate (Ventolin Hfa Inhaler -) 2 puff IH Q4H PRN PRN Reason: SHORT OF BREATH/WHEEZING Last Admin: 04/02/17 22:28 Dose: 2 puff Bupropion HCl (Wellbutrin Xl -) 150 mg PO DAILY [facility] Last Admin: 04/02/17 10:45 Dose: 150 mg Dexamethasone Sodium Phosphate (Decadron Injection -) 4 mg IVPB Q8H-IV [facility] Last Admin: 04/03/17 01:29 Dose: 4 mg Diltiazem HCl (Cardizem Cd -) 300 mg PO DAILY [facility] Last Admin: 04/02/17 10:45 Dose: 300 mg Docusate Sodium (Colace -) 100 mg PO TID [facility] Last Admin: 04/03/17 06:56 Dose: Not Given Gabapentin (Neurontin -) 100 mg PO TID [facility] Last Admin: 04/03/17 06:56 Dose: Not Given Guaifenesin (Diabetic Tussin Dm -) 10 ml PO Q6H [facility] Last Admin: 04/03/17 06:56 Dose: 10 ml Heparin Sodium (Porcine) (Heparin -) 1,000 unit IVPUSH PRN PRN PRN Reason: Heparin Last Admin: 04/02/17 12:05 Dose: 1,000 unit Heparin Sodium (Porcine) (Heparin -) 5,000 unit IVPUSH PRN PRN PRN Reason: Heparin Last Admin: 04/01/17 17:53 Dose: 5,000 unit Heparin Sodium (Porcine) 25, (000 unit/ Sodium Chloride) 500 mls @ 20 mls/hr IV TITR [facility]; 1,000 UNIT/HR PRN Reason: Protocol Last Titration: 04/02/17 22:01 Dose: 1,900 unit/hr, 38 mls/hr Sodium Chloride (Normal Saline -) 1,000 mls @ 75 mls/hr IV ASDIR [facility] Last Admin: 04/03/17 01:38 Dose: 75 mls/hr Piperacillin Sod/Tazobactam (Sod 3.375 gm/ Dextrose) 50 mls @ 100 mls/hr IVPB Q8H-IV [facility] PRN Reason: Protocol Last Admin: 04/03/17 01:27 Dose: 100 mls/hr Insulin Aspart (Novolog Vial Sliding Scale -) 1 vial SQ ACHS [facility] PRN Reason: Protocol Last Admin: 04/03/17 07:09 Dose: 2 unit Levothyroxine Sodium (Synthroid -) 75 mcg PO DAILY@0700 [facility] Last Admin: 04/03/17 06:56 Dose: 75 mcg Lidocaine (Lidoderm Patch -) 1 patch TP HS [facility] Last Admin: 04/02/17 21:53 Dose: Not Given Miscellaneous (Duragesic Patch Waste) 1 each TD PRN PRN Last Admin: 03/31/17 06:32 Dose: 1 each Miscellaneous (Lidoderm Patch Removal) 1 each MC DAILY [facility] Last Admin: 04/02/17 11:15 Dose: Not Given Montelukast Sodium (Singulair -) 10 mg PO HS [facility] Last Admin: 04/02/17 21:52 Dose: 10 mg Ondansetron HCl (Zofran Injection) 4 mg IVPB Q8H PRN PRN Reason: NAUSEA Last Admin: 03/26/17 12:54 Dose: 4 mg Pantoprazole Sodium (Protonix -) 40 mg PO DAILY [facility] Polyethylene Glycol (Miralax (For Daily Use) -) 17 gm PO DAILY [facility] Last Admin: 04/02/17 11:15 Dose: Not Given Senna (Senna -) 2 tab PO HS PRN PRN Reason: CONSTIPATION Last Admin: 04/01/17 21:30 Dose: 2 tab Sodium Polystyrene Sulfonate (Kayexalate -) 30 gm PO ONCE ONE Stop: 04/03/17 09:31 Tiotropium [place] (Spiriva -) 1 puff IH DAILY [facility] Last Admin: 04/02/17 11:00 Dose: 1 puff Tramadol HCl (Ultram -) 75 mg PO Q6H PRN PRN Reason: PAIN Last Admin: 04/03/17 07:02 Dose: 75 mg Tramadol HCl (Ultram -) 75 mg PO DAILY [facility] Last Admin: 04/02/17 10:55 Dose: 75 mg Warfarin Sodium (Coumadin -) 3 mg PO DAILY@1800 [facility] Last Admin: 04/02/17 17:02 Dose: 3 mg CBC, BMP 04/03/17 06:00 04/03/17 06:00 Microbiology 04/02/17 06:00 Blood Culture - Preliminary Blood - Neeta Cath NO GROWTH OBTAINED AFTER 24 HOURS, INCUBATION TO CONTINUE FOR 4 DAYS. 04/02/17 06:00 Blood Culture - Preliminary Blood - Peripheral Venous NO GROWTH OBTAINED AFTER 24 HOURS, INCUBATION TO CONTINUE FOR 4 DAYS. 04/01/17 19:45 Gram Stain - Final Sputum - Expectorated Physical Examination Constitutional: Yes: looks weak. Eyes: Yes: Conjunctiva Clear Neck: Yes: Supple, Trachea Midline. no jvd Cardiovascular: Yes: Pulse Irregular, S1, S2 Respiratory: Yes: diminished at bases.--no wheezes. Gastrointestinal: Yes: Normal Bowel Sounds, Abdomen, Obese. Neurological: Yes: Alert, Oriented x 3 Psychiatric: Yes: Alert, Oriented Ext-Chronic venous stasis of legs Assessment/Plan Metastatic ovarian ca-- worsening . Thrombocytopenia paroxysmal afib obesity depression hyponatremia- overall condition worsening Continue antibiotics Pulmonary to follow Discussed with Dr. Mendoza today Continue present care Kayexalate Follow-up labs Overall condition guarded patient is DNR/DNI Discussed with patient's daughter again today who is at bedside. Will follow. Problem List - Problems (1) Thrombocytopenia Code(s): D69.6 - THROMBOCYTOPENIA, UNSPECIFIED (2) A-fib Code(s): I48.91 - UNSPECIFIED ATRIAL FIBRILLATION Qualifiers: (3) Anemia Code(s): D64.9 - ANEMIA, UNSPECIFIED (4) Diabetes Code(s): E11.9 - TYPE 2 DIABETES MELLITUS WITHOUT COMPLICATIONS Qualifiers: Diabetes mellitus type: type 2 Diabetes mellitus complication status: without complication (5) Hypoalbuminemia Code(s): E88.09 - OTH DISORDERS OF PLASMA-PROTEIN METABOLISM, NEC (6) Primary cancer of ovary with widespread metastatic disease Code(s): C56.9 - MALIGNANT NEOPLASM OF UNSPECIFIED OVARY; C80.0 - DISSEMINATED MALIGNANT NEOPLASM, UNSPECIFIED
[2017-04-03] MEDS: PANTOPRAZOLE 40 MG TABLET (FP) PO SCH (09:21)
[2017-04-03] MEDS: TIOTROPIUM BROMIDE 18 MCG/INH (DEVICE W/ 5 CAPSULES) IH SCH (09:21)
[2017-04-03] MEDS: ALBUTEROL SO4 18 GM HFA INHALER IH PRN ×2 (09:21→21:46)
[2017-04-03] MEDS: LIDOCAINE PATCH REMOVAL MC SCH (09:22)
[2017-04-03] MEDS: POLYETHYLENE GLYCOL 3350 119 GM BTL PO SCH (09:22)
[2017-04-03 09:27] LABS: PLATELET ESTIMATE ADEQUATE
[2017-04-03] MEDS ORDERED: SODIUM POLYSTYRENE SULFONATE 15 GM/60 ML BOTTLE PO ONE (09:30)
[2017-04-03] MEDS ORDERED: ALPRAZolam 0.25 MG TABLET PO PRN (10:18)
--- NOTE | 2017-04-03 10:40 | PN ---
Progress Note (short form) - Note Progress Note: PULMONARY States cough and breathing better on steroids but feeling jittery and very weak. Cough productive of yellow sputum. Last Vital Signs Temp Pulse Resp BP Pulse Ox 97.2 F L 98 H 20 102/64 98 04/03/17 09:19 04/03/17 09:19 04/03/17 09:19 04/03/17 09:19 04/02/17 21:00 Gen: mildly tachypneic at rest Heart: RRR Lung: distant breath sounds Abd: soft, nontender Ext: +edema CBC, BMP 04/03/17 06:00 04/03/17 06:00 Active Medications Acetaminophen (Tylenol -) 500 mg PO DAILY [facility] Last Admin: 04/02/17 10:59 Dose: 500 mg Acetylcysteine (Mucomyst 20 Oral / Inh Use Only*) 200 mg NEB QIDR [facility] Last Admin: 04/03/17 06:59 Dose: 200 mg Albuterol Sulfate (Ventolin 0.083% Nebulizer Soln -) 1 amp NEB QIDR [facility] Last Admin: 04/03/17 06:59 Dose: 1 amp Albuterol Sulfate (Ventolin Hfa Inhaler -) 2 puff IH Q4H PRN PRN Reason: SHORT OF BREATH/WHEEZING Last Admin: 04/03/17 09:21 Dose: 2 puff Alprazolam (Xanax -) 0.25 mg PO Q8H PRN Bupropion HCl (Wellbutrin Xl -) 150 mg PO DAILY [facility] Last Admin: 04/03/17 09:22 Dose: 150 mg Dexamethasone Sodium Phosphate (Decadron Injection -) 4 mg IVPB Q8H-IV [facility] Last Admin: 04/03/17 09:21 Dose: 4 mg Diltiazem HCl (Cardizem Cd -) 300 mg PO DAILY [facility] Last Admin: 04/03/17 09:22 Dose: 300 mg Docusate Sodium (Colace -) 100 mg PO TID [facility] Last Admin: 04/03/17 06:56 Dose: Not Given Gabapentin (Neurontin -) 100 mg PO TID [facility] Last Admin: 04/03/17 06:56 Dose: Not Given Guaifenesin (Diabetic Tussin Dm -) 10 ml PO Q6H [facility] Last Admin: 04/03/17 06:56 Dose: 10 ml Heparin Sodium (Porcine) (Heparin -) 1,000 unit IVPUSH PRN PRN PRN Reason: Heparin Last Admin: 04/02/17 12:05 Dose: 1,000 unit Heparin Sodium (Porcine) (Heparin -) 5,000 unit IVPUSH PRN PRN PRN Reason: Heparin Last Admin: 04/01/17 17:53 Dose: 5,000 unit Heparin Sodium (Porcine) 25, (000 unit/ Sodium Chloride) 500 mls @ 20 mls/hr IV TITR [facility]; 1,000 UNIT/HR PRN Reason: Protocol Last Titration: 04/02/17 22:01 Dose: 1,900 unit/hr, 38 mls/hr Sodium Chloride (Normal Saline -) 1,000 mls @ 75 mls/hr IV ASDIR [facility] Last Admin: 04/03/17 01:38 Dose: 75 mls/hr Piperacillin Sod/Tazobactam (Sod 3.375 gm/ Dextrose) 50 mls @ 100 mls/hr IVPB Q8H-IV [facility] PRN Reason: Protocol Last Admin: 04/03/17 09:21 Dose: 100 mls/hr Insulin Aspart (Novolog Vial Sliding Scale -) 1 vial SQ ACHS [facility] PRN Reason: Protocol Last Admin: 04/03/17 07:09 Dose: 2 unit Levothyroxine Sodium (Synthroid -) 75 mcg PO DAILY@0700 [facility] Last Admin: 04/03/17 06:56 Dose: 75 mcg Lidocaine (Lidoderm Patch -) 1 patch TP HS [facility] Last Admin: 04/02/17 21:53 Dose: Not Given Miscellaneous (Duragesic Patch Waste) 1 each TD PRN PRN Last Admin: 03/31/17 06:32 Dose: 1 each Miscellaneous (Lidoderm Patch Removal) 1 each MC DAILY [facility] Last Admin: 04/03/17 09:22 Dose: Not Given Montelukast Sodium (Singulair -) 10 mg PO HS [facility] Last Admin: 04/02/17 21:52 Dose: 10 mg Ondansetron HCl (Zofran Injection) 4 mg IVPB Q8H PRN PRN Reason: NAUSEA Last Admin: 03/26/17 12:54 Dose: 4 mg Pantoprazole Sodium (Protonix -) 40 mg PO DAILY [facility] Last Admin: 04/03/17 09:21 Dose: 40 mg Polyethylene Glycol (Miralax (For Daily Use) -) 17 gm PO DAILY [facility] Last Admin: 04/03/17 09:22 Dose: Not Given Senna (Senna -) 2 tab PO HS PRN PRN Reason: CONSTIPATION Last Admin: 04/01/17 21:30 Dose: 2 tab Tiotropium [place] (Spiriva -) 1 puff IH DAILY [facility] Last Admin: 04/03/17 09:21 Dose: 1 puff Tramadol HCl (Ultram -) 75 mg PO Q6H PRN PRN Reason: PAIN Last Admin: 04/03/17 07:02 Dose: 75 mg Tramadol HCl (Ultram -) 75 mg PO DAILY [facility] Last Admin: 04/02/17 10:55 Dose: 75 mg Warfarin Sodium (Coumadin -) 3 mg PO DAILY@1800 [facility] Last Admin: 04/02/17 17:02 Dose: 3 mg A/P Metastatic High Grade Mullerian Ca with extensive mets to lung Asthma Atrial Fibrillation Acute Kidney Injury Morbid Obesity DM - continue decadron same dose - inhaled bronchodilators - O2 to keep SpO2 >90% - antibiotics per ID - rate controlled - continue anticoagulation - palliative RT if she can lay flat
[2017-04-03] MEDS: HEPARIN - 25,000 UNIT in SODIUM CHLORIDE 495 ML IV SCH ×2 (10:56→14:56)
[2017-04-03] MEDS: traMADol HCL 50 MG TABLET PO SCH ×2 (11:07→15:19)
[2017-04-03] MEDS: ACETAMINOPHEN 500 MG TABLET (FP) PO SCH (11:07)
--- NOTE | 2017-04-03 11:34 | EKG ---
Test Reason : Blood Pressure : / mmHG Vent. Rate : 101 BPM Atrial Rate : 125 BPM P-R Int : 000 ms QRS Dur : 082 ms QT Int : 350 ms P-R-T Axes : 000 -06 127 degrees QTc Int : 453 ms ATRIAL FIBRILLATION WITH RAPID VENTRICULAR RESPONSE POSSIBLE ANTERIOR INFARCT , AGE UNDETERMINED T WAVE ABNORMALITY, CONSIDER LATERAL ISCHEMIA ABNORMAL ECG WHEN COMPARED WITH ECG OF 01-APR-2017 08:57, NO SIGNIFICANT CHANGE WAS FOUND Confirmed by JACI CHOW, MIKE ([id number]) on 04/03/2017 11:33:59 AM Referred By: Confirmed By:MIKE BEATTY MD
[2017-04-03] MEDS ORDERED: INSULIN (NOVOLOG) ASPART 100 UNITS/ML 10ML VIAL ONE ×3 (12:11→21:22)
[2017-04-03] MEDS: FENTANYL PATCH WASTE TD PRN (12:55)
--- NOTE | 2017-04-03 14:34 | PN ---
Progress Note (short form) - Note Progress Note: Renal follow up for SURY Pt seen and examined at the bedside reports cough feel weak no N/v/D making urine on IVF K is 6 this am s/p kayexalate Vital Signs Temperature 97.8 F 04/03/17 13:55 Pulse Rate 114 H 04/03/17 13:55 Respiratory Rate 20 04/03/17 13:55 Blood Pressure 108/61 04/03/17 13:55 O2 Sat by Pulse Oximetry (%) 99 04/03/17 12:15 Intake & Output 03/31/17 04/01/17 04/02/17 04/03/17 23:59 23:59 23:59 23:59 Intake Total 1206 6982 594 2565 Balance 1206 6940 584 0373 Weight 156.671 kg NAD RRRR dry MM CTA Obese Abd 3+ edema in le CBC, BMP 04/03/17 06:00 04/03/17 06:00 Current Medications Acetaminophen (Tylenol -) 500 mg PO DAILY [facility] Last Admin: 04/03/17 11:07 Dose: Not Given Acetylcysteine (Mucomyst 20 Oral / Inh Use Only*) 200 mg NEB QIDR [facility] Last Admin: 04/03/17 12:15 Dose: 200 mg Albuterol Sulfate (Ventolin 0.083% Nebulizer Soln -) 1 amp NEB QIDR [facility] Last Admin: 04/03/17 12:15 Dose: 1 amp Albuterol Sulfate (Ventolin Hfa Inhaler -) 2 puff IH Q4H PRN PRN Reason: SHORT OF BREATH/WHEEZING Last Admin: 04/03/17 09:21 Dose: 2 puff Alprazolam (Xanax -) 0.25 mg PO Q8H PRN Last Admin: 04/03/17 10:55 Dose: 0.25 mg Bupropion HCl (Wellbutrin Xl -) 150 mg PO DAILY [facility] Last Admin: 04/03/17 09:22 Dose: 150 mg Dexamethasone Sodium Phosphate (Decadron Injection -) 4 mg IVPB Q8H-IV [facility] Last Admin: 04/03/17 09:21 Dose: 4 mg Diltiazem HCl (Cardizem Cd -) 300 mg PO DAILY [facility] Last Admin: 04/03/17 09:22 Dose: 300 mg Docusate Sodium (Colace -) 100 mg PO TID [facility] Last Admin: 04/03/17 06:56 Dose: Not Given Gabapentin (Neurontin -) 100 mg PO TID [facility] Last Admin: 04/03/17 06:56 Dose: Not Given Guaifenesin (Diabetic Tussin Dm -) 10 ml PO Q6H [facility] Last Admin: 04/03/17 12:13 Dose: 10 ml Heparin Sodium (Porcine) (Heparin -) 1,000 unit IVPUSH PRN PRN PRN Reason: Heparin Last Admin: 04/02/17 12:05 Dose: 1,000 unit Heparin Sodium (Porcine) (Heparin -) 5,000 unit IVPUSH PRN PRN PRN Reason: Heparin Last Admin: 04/01/17 17:53 Dose: 5,000 unit Heparin Sodium (Porcine) 25, (000 unit/ Sodium Chloride) 500 mls @ 20 mls/hr IV TITR [facility]; 1,000 UNIT/HR PRN Reason: Protocol Last Admin: 04/03/17 10:56 Dose: 1,900 unit/hr, 38 mls/hr Piperacillin Sod/Tazobactam (Sod 3.375 gm/ Dextrose) 50 mls @ 100 mls/hr IVPB Q8H-IV [facility] PRN Reason: Protocol Last Admin: 04/03/17 09:21 Dose: 100 mls/hr Sodium Chloride (Normal Saline -) 1,000 mls @ 83 mls/hr IV ASDIR [facility] Last Admin: 04/03/17 12:09 Dose: 83 mls/hr Insulin Aspart (Novolog Vial Sliding Scale -) 1 vial SQ ACHS [facility] PRN Reason: Protocol Last Admin: 04/03/17 13:00 Dose: 4 unit Levothyroxine Sodium (Synthroid -) 75 mcg PO DAILY@0700 [facility] Last Admin: 04/03/17 06:56 Dose: 75 mcg Lidocaine (Lidoderm Patch -) 1 patch TP [facility] Last Admin: 04/02/17 21:53 Dose: Not Given Miscellaneous (Lidoderm Patch Removal) 1 each MC DAILY [facility] Last Admin: 04/03/17 09:22 Dose: Not Given Montelukast Sodium (Singulair -) 10 mg PO HS [facility] Last Admin: 04/02/17 21:52 Dose: 10 mg Ondansetron HCl (Zofran Injection) 4 mg IVPB Q8H PRN PRN Reason: NAUSEA Last Admin: 03/26/17 12:54 Dose: 4 mg Pantoprazole Sodium (Protonix -) 40 mg PO DAILY [facility] Last Admin: 04/03/17 09:21 Dose: 40 mg Polyethylene Glycol (Miralax (For Daily Use) -) 17 gm PO DAILY [facility] Last Admin: 04/03/17 09:22 Dose: Not Given Senna (Senna -) 2 tab PO HS PRN PRN Reason: CONSTIPATION Last Admin: 04/01/17 21:30 Dose: 2 tab Tiotropium [place] (Spiriva -) 1 puff IH DAILY [facility] Last Admin: 04/03/17 09:21 Dose: 1 puff Tramadol HCl (Ultram -) 75 mg PO Q6H PRN PRN Reason: PAIN Last Admin: 04/03/17 07:02 Dose: 75 mg Tramadol HCl (Ultram -) 75 mg PO DAILY [facility] Last Admin: 04/03/17 11:07 Dose: Not Given Warfarin Sodium (Coumadin -) 3 mg PO DAILY@1800 [facility] Last Admin: 04/02/17 17:02 Dose: 3 mg 61 year old woman with PMhx of Metastatic Ovarian Ca (lung, Liver) on Chemo, Hypertension, DM Type 2, Chronic Lymphedema, Obesity presented with thrombocytopenia and found to have hyponatremia. #Acute Renal Insufficiency in setting of diuretics Renal function stable today after IVF continue fluids for now #Hyperkalemia secondary to KCL supplements and glucerna in setting of SURY s/p kayexalate no EKG changes noted repeat BMP this evening #Hyponatremia Na improved today Mirza Zuleta DO
--- NOTE | 2017-04-03 15:00 | PN ---
Progress Note (short form) - Note Progress Note: Patient seen and examined feels weak Last Vital Signs Temp Pulse Resp BP Pulse Ox 97.8 F 114 H 20 108/61 99 04/03/17 13:55 04/03/17 13:55 04/03/17 13:55 04/03/17 13:55 04/03/17 12:15 Cor: RSR, No murmurs, No gallops Lungs: Clear to P&A Abd: Soft, Normal bowel sounds, No organomegaly Ext: venous stasis/lymphedema Abnormal Lab Results 04/03/17 04/03/17 04/03/17 06:00 06:00 06:00 WBC 14.0 H RBC 2.82 L Hgb 9.1 L Hct 28.2 L MCV 99.9 H RDW 24.9 H Lymphocytes % (Manual) 5.0 L Monocytes % (Manual) 15 H D PT with INR 19.40 H INR 1.72 H PTT (Actin FS) Sodium 131 L Potassium 6.0 H BUN 27 H Creatinine 1.3 H Random Glucose 168 H Calcium 8.4 L AST 77 H Alkaline Phosphatase 228 H Total Protein 6.0 L Albumin 2.1 L 04/03/17 06:00 WBC RBC Hgb Hct MCV RDW Lymphocytes % (Manual) Monocytes % (Manual) PT with INR INR PTT (Actin FS) 62.8 H D Sodium Potassium BUN Creatinine Random Glucose Calcium AST Alkaline Phosphatase Total Protein Albumin Home Medication List Medication Instructions Recorded Confirmed Type Levothyroxine [Synthroid -] 75 mcg PO DAILY 10/17/12 03/18/17 History Loratadine [Claritin -] 10 mg PO DAILY 10/17/12 03/18/17 History Metformin HCl [Glucophage] 500 mg PO BID 10/17/12 03/18/17 History [place]-3 Acid Ethyl Esters [Lovaza 1,000 mg PO TID 10/17/12 03/18/17 History -] Potassium Chloride 10 meq PO DAILY 10/24/16 03/18/17 History Diltiazem Cd [Cardizem Cd -] 300 mg PO DAILY 10/25/16 03/18/17 History Furosemide [Lasix -] 40 mg PO DAILY 01/02/17 03/18/17 History Montelukast Na [Singulair -] 10 mg PO HS 01/02/17 03/18/17 History Active Medications Generic Name Dose Route Start Last Admin Trade Name Freq PRN Reason Stop Dose Admin Acetaminophen 500 mg 04/02/17 10:00 04/03/17 11:07 Tylenol - PO Not Given DAILY [facility] Acetylcysteine 200 mg 04/01/17 14:30 04/03/17 12:15 Mucomyst 20 Oral / Inh Use Only* NEB 200 mg QIDR [facility] Administration Albuterol Sulfate 1 amp 03/31/17 18:00 04/03/17 12:15 Ventolin 0.083% Nebulizer Soln - NEB 1 amp QIDR [facility] Administration Albuterol Sulfate 2 puff 04/02/17 14:49 04/03/17 09:21 Ventolin Hfa Inhaler - IH 2 puff Q4H PRN Administration SHORT OF BREATH/WHEEZING Alprazolam 0.25 mg 04/03/17 10:18 04/03/17 10:55 Xanax - PO 0.25 mg Q8H PRN Administration Bupropion HCl 150 mg 03/23/17 10:00 04/03/17 09:22 Wellbutrin Xl - PO 150 mg DAILY [facility] Administration Dexamethasone Sodium Phosphate 4 mg 03/30/17 18:00 04/03/17 09:21 Decadron Injection - IVPB 4 mg Q8H-IV [facility] Administration Diltiazem HCl 300 mg 03/23/17 10:00 04/03/17 09:22 Cardizem Cd - PO 300 mg DAILY [facility] Administration Docusate Sodium 100 mg 03/26/17 22:00 04/03/17 14:55 Colace - PO Not Given TID [facility] Gabapentin 100 mg 03/29/17 22:00 04/03/17 14:55 Neurontin - PO Not Given TID [facility] Guaifenesin 10 ml 03/30/17 17:00 04/03/17 12:13 Diabetic Tussin Dm - PO 10 ml Q6H [facility] Administration Heparin Sodium (Porcine) 1,000 unit 03/30/17 14:39 04/02/17 12:05 Heparin - IVPUSH 1,000 unit PRN PRN Administration Heparin Heparin Sodium (Porcine) 5,000 unit 03/30/17 14:39 04/01/17 17:53 Heparin - IVPUSH 5,000 unit PRN PRN Administration Heparin Heparin Sodium (Porcine) 25, 500 mls @ 20 mls/hr 03/30/17 14:45 04/03/17 14: 56 000 unit/ Sodium Chloride IV Not Given TITR [facility] Protocol 1,000 UNIT/HR Piperacillin Sod/Tazobactam 50 mls @ 100 mls/hr 04/02/17 18:00 04/03/17 09:21 Sod 3.375 gm/ Dextrose IVPB 100 mls/hr Q8H-IV [facility] Administration Protocol Sodium Chloride 1,000 mls @ 83 mls/hr 04/03/17 11:28 04/03/17 12:09 Normal Saline - IV 83 mls/hr ASDIR [facility] Administration Insulin Aspart 1 vial 03/24/17 18:16 04/03/17 13:00 Novolog Vial Sliding Scale - SQ 4 unit ACHS [facility] Administration Protocol Levothyroxine Sodium 75 mcg 03/23/17 07:00 04/03/17 06:56 Synthroid - PO 75 mcg DAILY@0700 [facility] Administration Lidocaine 1 patch 03/25/17 00:15 04/02/17 21:53 Lidoderm Patch - TP Not Given HS [facility] Miscellaneous 1 each 03/25/17 10:00 04/03/17 09:22 Lidoderm Patch Removal MC Not Given DAILY [facility] Montelukast Sodium 10 mg 03/22/17 22:00 04/02/17 21:52 Singulair - PO 10 mg HS [facility] Administration Ondansetron HCl 4 mg 03/23/17 12:10 03/26/17 12:54 Zofran Injection IVPB 4 mg Q8H PRN Administration NAUSEA Pantoprazole Sodium 40 mg 04/03/17 10:00 04/03/17 09:21 Protonix - PO 40 mg DAILY [facility] Administration Polyethylene Glycol 17 gm 03/23/17 10:00 04/03/17 09:22 Miralax (For Daily Use) - PO Not Given DAILY [facility] Senna 2 tab 03/22/17 18:13 04/01/17 21:30 Senna - PO 2 tab HS PRN Administration CONSTIPATION Tiotropium [place] 1 puff 03/23/17 10:00 04/03/17 09:21 Spiriva - IH 1 puff DAILY [facility] Administration Tramadol HCl 75 mg 03/28/17 22:59 04/03/17 07:02 Ultram - PO 75 mg Q6H PRN Administration PAIN Tramadol HCl 75 mg 04/02/17 10:00 04/03/17 11:07 Ultram - PO Not Given DAILY [facility] Warfarin Sodium 3 mg 03/29/17 18:00 04/02/17 17:02 Coumadin - PO 3 mg DAILY@1800 [facility] Administration A/P 61 y/o patient with metastatic high grade mullerian cancer on gemzar Comes in with thrombocytopenia Transfused monodonor platelets Transfused PRBCs CT scans show progressive diseasse New T10 met/epidural disease pain control On heparin drip bridging to coumadin Cough-- nebulizer treatments/robitusssin On zosyn will discuss with ID team T10 metastases-- for RT, but feels too weak to go on decadron 4mg bid Pain control will hold fentanyl due to renal insufficiency continue tramadol/tylenol discussed with patient and daughter about considering pozapanib
--- NOTE | 2017-04-03 15:32 | PN ---
Progress Note (short form) - Note Progress Note: continues with dry cough unable to lay flat some yellow sputum Vital Signs Period Temp Pulse Resp BP Sys/Dinero Pulse Ox Last 24 Hr 97.2 F-97.8 F 98-130 16-20 102-123/61-76 98-99 obese female oob in chair no thrush cor-rrr llungs decreased bs at bases abd soft,nt ext chronic lymphedema left foot with dry callous CBC, BMP 04/03/17 06:00 04/03/17 06:00 Microbiology 04/01/17 19:45 Sputum - Expectorated Gram Stain - Final 04/01/17 19:45 Sputum - Expectorated Sputum Culture - Preliminary Strep Agalactiae Group B 04/02/17 08:20 Nasopharyngeal Swab Influenza Types A,B Antigen (EMA) - Final 04/02/17 08:20 Nasopharyngeal Swab - Final 04/02/17 06:00 Blood - Neeta Cath Blood Culture - Preliminary NO GROWTH OBTAINED AFTER 24 HOURS, INCUBATION TO CONTINUE FOR 4 DAYS. 04/02/17 06:00 Blood - Peripheral Venous Blood Culture - Preliminary NO GROWTH OBTAINED AFTER 24 HOURS, INCUBATION TO CONTINUE FOR 4 DAYS. 03/23/17 12:50 Blood - Peripheral Venous Blood Culture - Final NO GROWTH AFTER 5 DAYS INCUBATION 03/23/17 12:45 Blood - Peripheral Venous Blood Culture - Final NO GROWTH AFTER 5 DAYS INCUBATION a/p possible pneumonia continue zosyn unable to due ct scan oxygenation unchanged on nasal canulla metastatic ovarian cancer on chemo history of mrsa foot infection- contact isolation Problem List - Problems (1) Leukocytosis Code(s): D72.829 - ELEVATED WHITE BLOOD CELL COUNT, UNSPECIFIED (2) Primary cancer of ovary with widespread metastatic disease Code(s): C56.9 - MALIGNANT NEOPLASM OF UNSPECIFIED OVARY; C80.0 - DISSEMINATED MALIGNANT NEOPLASM, UNSPECIFIED (3) MRSA (methicillin resistant Staphylococcus aureus) colonization Code(s): Z22.322 - CARRIER OR SUSPECTED CARRIER OF METHICILLIN RESIS STAPH
[2017-04-03] MEDS: WARFARIN NA 3 MG TABLET PO SCH (18:29)
[2017-04-03] MEDS: SENNOSIDES 8.6MG TABLET (FP) PO PRN (21:33)
[2017-04-03] MEDS: MONTELUKAST NA 10 MG TABLET PO SCH (21:33)
[2017-04-03] MEDS: LIDOCAINE 5% TOPICAL PATCH TP SCH (21:34)
[2017-04-03 21:41] LABS: ANION GAP 10 (8-16); BLOOD UREA NITROGEN 29 mg/dL (7-18); CALCIUM 8.4 mg/dL (8.5-10.1); CHLORIDE 96 mmol/L (98-107); CO2 23 mmol/L (21-32); CREATININE 1.2 mg/dL (0.55-1.02); GLUCOSE,RANDOM 224 mg/dL (74-106); POTASSIUM 4.8 mmol/L (3.5-5.1); SODIUM 129 mmol/L (136-145)
[2017-04-04] MEDS: NYSTATIN 500,000 UNITS/5 ML SUSPENSION PO SCH ×5 (00:53→23:11)
[2017-04-04] MEDS: HEPARIN - 25,000 UNIT in SODIUM CHLORIDE 495 ML IV SCH (00:57)
[2017-04-04] MEDS: PIPERACILLIN/TAZOB 3.375 GM 3.375 GM in DEXTROSE 5%-WATER - 50 ML IVPB SCH ×3 (01:00→17:50)
[2017-04-04] MEDS: traMADol HCL 50 MG TABLET PO PRN ×3 (03:35→22:54)
[2017-04-04] MEDS: DOCUSATE SODIUM 100 MG CAPSULE (FP) PO SCH ×3 (06:25→23:09)
[2017-04-04] MEDS: guaiFENesin/D-M SUGAR-FREE/ACLHOL-FREE 118 ML BOTTLE PO SCH ×4 (06:25→23:10)
[2017-04-04] MEDS: DEXAMETHASONE SOD PHOSPHATE 4 MG/1 ML VIAL IVPB SCH ×2 (06:26→17:50)
[2017-04-04] MEDS: INSULIN SLIDING SCALE (NOVOLOG) 1 VIAL SQ SCH ×4 (06:26→22:57)
[2017-04-04] MEDS: GABAPENTIN 100 MG CAPSULE (FP) PO SCH ×3 (06:26→22:54)
[2017-04-04] MEDS: LEVOTHYROXINE NA 75 MCG TABLET (FP) PO SCH (06:27)
[2017-04-04] MEDS: ALBUTEROL SO4 0.083% IH SOL 2.5 MG/3 ML VIAL.NEB. NEB SCH ×3 (06:30→16:20)
[2017-04-04] MEDS: ACETYLCYSTEINE 20% 200MG/ML 30 ML VIAL *FOR ORAL / INH USE ONLY NEB SCH ×3 (06:30→16:20)
[2017-04-04] MEDS ORDERED: INSULIN (NOVOLOG) ASPART 100 UNITS/ML 10ML VIAL ONE ×3 (07:09→20:32)
[2017-04-04 08:07] LABS: HEMOGLOBIN 10.1 GM/dL (10.7-15.3); MCH 32.4 pg (25.7-33.7); MCHC 32.5 g/dl (32.0-36.0); MEAN CELL VOLUME 99.9 fl (80-96); MEAN PLT VOLUME 9.9 fl (7.5-11.1); PLATELET COUNT 223 K/MM3 (134-434); RBC 3.11 M/mm3 (3.60-5.2); WHITE BLOOD COUNT 15.9 K/mm3 (4.0-10.0)
[2017-04-04 08:16] LABS: ADD RBC MORPHOLOGY YES
[2017-04-04 08:22] LABS: ALBUMIN 2.2 g/dl (3.4-5.0); ANION GAP 9 (8-16); BILIRUBIN,TOTAL 0.8 mg/dL (0.2-1.0); BLOOD UREA NITROGEN 25 mg/dL (7-18); CALCIUM 8.5 mg/dL (8.5-10.1); CHLORIDE 97 mmol/L (98-107); CO2 24 mmol/L (21-32); CREATININE 1.2 mg/dL (0.55-1.02); GLUCOSE,RANDOM 164 mg/dL (74-106); POTASSIUM 4.9 mmol/L (3.5-5.1); SGOT/AST 80 U/L (15-37); SGPT/ALT 49 U/L (12-78); SODIUM 130 mmol/L (136-145)
[2017-04-04 08:24] LABS: ALK PHOS 266 U/L (45-117); TOT PROT 6.2 g/dl (6.4-8.2)
[2017-04-04 08:36] LABS: INR 2.02 (0.82-1.09); PROTHROMBIN TIME (PATIENT) 22.8 SEC (9.98-11.88)
--- NOTE | 2017-04-04 08:44 | PN ---
Progress Note (short form) - Note Progress Note: Patient seen and examined in he room sitting in the chair anxious, weak, depressed cough intermittent- productive complaints of poor appetite unable to tolerate RT - unable to lie flat Vital Signs Temp 97.4 F L 04/04/17 05:00 Pulse 121 H 04/04/17 05:00 Resp 20 04/04/17 05:00 BP 115/77 04/04/17 05:00 Pulse Ox 99 04/03/17 20:58 Intake & Output 04/03/17 04/03/17 04/04/17 11:59 23:59 11:59 Intake Total 1767 2179 Balance 1767 2179 Intake: IV 1280 1452 Heparin - 25,000 Unit In 380 456 Normal Saline - 495 ml @ 1,000 UNIT/HR 20 mls/hr IV TITR VIRG[facility]IO Rx#: [id number] Normal Saline - 1,000 ml 900 @ 75 mls/hr IV ASDIR VIRG[facility]IO Rx#:[id number] Normal Saline - 1,000 ml 996 @ 83 mls/hr IV ASDIR VIRG[facility]IO Rx#:[id number] IVPB 50 50 Oral 200 440 Oral Supplement 237 237 Other: Voiding Method Bedpan Bedpan # Unmeasured Voids Void 2 2 1 Bowel Movement No Yes: big # Bowel Movements 1 Active Medications Acetaminophen (Tylenol -) 500 mg PO DAILY [facility] Last Admin: 04/03/17 11:07 Dose: Not Given Acetylcysteine (Mucomyst 20 Oral / Inh Use Only*) 200 mg NEB QIDR [facility] Last Admin: 04/04/17 06:30 Dose: 200 mg Albuterol Sulfate (Ventolin 0.083% Nebulizer Soln -) 1 amp NEB QIDR [facility] Last Admin: 04/04/17 06:30 Dose: 1 amp Albuterol Sulfate (Ventolin Hfa Inhaler -) 2 puff IH Q4H PRN PRN Reason: SHORT OF BREATH/WHEEZING Last Admin: 04/03/17 21:46 Dose: 2 puff Alprazolam (Xanax -) 0.25 mg PO Q8H PRN Last Admin: 04/03/17 10:55 Dose: 0.25 mg Bupropion HCl (Wellbutrin Xl -) 150 mg PO DAILY [facility] Last Admin: 04/03/17 09:22 Dose: 150 mg Dexamethasone Sodium Phosphate (Decadron Injection -) 4 mg IVPB Q12H [facility] Last Admin: 04/04/17 06:26 Dose: 4 mg Diltiazem HCl (Cardizem Cd -) 300 mg PO DAILY [facility] Last Admin: 04/03/17 09:22 Dose: 300 mg Docusate Sodium (Colace -) 100 mg PO TID [facility] Last Admin: 04/04/17 06:25 Dose: 100 mg Gabapentin (Neurontin -) 100 mg PO TID [facility] Last Admin: 04/04/17 06:26 Dose: Not Given Guaifenesin (Diabetic Tussin Dm -) 10 ml PO Q6H [facility] Last Admin: 04/04/17 06:25 Dose: 10 ml Heparin Sodium (Porcine) (Heparin -) 1,000 unit IVPUSH PRN PRN PRN Reason: Heparin Last Admin: 04/02/17 12:05 Dose: 1,000 unit Heparin Sodium (Porcine) (Heparin -) 5,000 unit IVPUSH PRN PRN PRN Reason: Heparin Last Admin: 04/01/17 17:53 Dose: 5,000 unit Heparin Sodium (Porcine) 25, (000 unit/ Sodium Chloride) 500 mls @ 20 mls/hr IV TITR VIRGILIO; 1,000 UNIT/HR PRN Reason: Protocol Last Admin: 04/04/17 00:57 Dose: 1,900 unit/hr, 38 mls/hr Piperacillin Sod/Tazobactam (Sod 3.375 gm/ Dextrose) 50 mls @ 100 mls/hr IVPB Q8H-IV [facility] PRN Reason: Protocol Last Admin: 04/04/17 01:00 Dose: 100 mls/hr Sodium Chloride (Normal Saline -) 1,000 mls @ 83 mls/hr IV ASDIR [facility] Last Admin: 04/03/17 16:22 Dose: 83 mls/hr Insulin Aspart (Novolog Vial Sliding Scale -) 1 vial SQ ACHS [facility] PRN Reason: Protocol Last Admin: 04/04/17 06:26 Dose: 4 unit Levothyroxine Sodium (Synthroid -) 75 mcg PO DAILY@0700 [facility] Last Admin: 04/04/17 06:27 Dose: 75 mcg Lidocaine (Lidoderm Patch -) 1 patch TP HS [facility] Last Admin: 04/03/17 21:34 Dose: Not Given Miscellaneous (Lidoderm Patch Removal) 1 each MC DAILY [facility] Last Admin: 04/03/17 09:22 Dose: Not Given Montelukast Sodium (Singulair -) 10 mg PO HS [facility] Last Admin: 04/03/17 21:33 Dose: 10 mg Nystatin (Nystatin Oral Suspension -) 500,000 units PO Q6HPO [facility] Last Admin: 04/04/17 06:26 Dose: 500,000 units Ondansetron HCl (Zofran Injection) 4 mg IVPB Q8H PRN PRN Reason: NAUSEA Last Admin: 03/26/17 12:54 Dose: 4 mg Pantoprazole Sodium (Protonix -) 40 mg PO DAILY [facility] Last Admin: 04/03/17 09:21 Dose: 40 mg Polyethylene Glycol (Miralax (For Daily Use) -) 17 gm PO DAILY [facility] Last Admin: 04/03/17 09:22 Dose: Not Given Senna (Senna -) 2 tab PO HS PRN PRN Reason: CONSTIPATION Last Admin: 04/03/17 21:33 Dose: 2 tab Tiotropium [place] (Spiriva -) 1 puff IH DAILY [facility] Last Admin: 04/03/17 09:21 Dose: 1 puff Tramadol HCl (Ultram -) 75 mg PO Q6H PRN PRN Reason: PAIN Last Admin: 04/04/17 03:35 Dose: 75 mg Tramadol HCl (Ultram -) 75 mg PO DAILY [facility] Last Admin: 04/03/17 15:19 Dose: 75 mg Warfarin Sodium (Coumadin -) 3 mg PO DAILY@1800 [facility] Last Admin: 04/03/17 18:29 Dose: 3 mg Laboratory Results - last 24 hr 04/03/17 04/03/17 04/03/17 06:00 06:00 12:06 WBC RBC Hgb Hct MCV MCH MCHC RDW Plt Count MPV Total Counted 100 Neutrophils % Neutrophils % (Manual) 80.0 Lymphocytes % Lymphocytes % (Manual) 5.0 L Monocytes % (Manual) 15 H D Platelet Estimate Adequate Morphology Comment Cancelled PT with INR INR PTT (Actin FS) Sodium 131 L Potassium 6.0 H Chloride 98 Carbon Dioxide 25 Anion Gap 8 BUN 27 H Creatinine 1.3 H Creat Clearance w eGFR 41.64 POC Glucometer 220 Random Glucose 168 H Calcium 8.4 L Total Bilirubin 0.5 AST 77 H ALT 40 Alkaline Phosphatase 228 H Total Protein 6.0 L Albumin 2.1 L 12/14/17 12/14/17 12/14/17 16:27 20:35 21:12 WBC RBC Hgb Hct MCV MCH MCHC RDW Plt Count MPV Total Counted Neutrophils % Neutrophils % (Manual) Lymphocytes % Lymphocytes % (Manual) Monocytes % (Manual) Platelet Estimate Morphology Comment PT with INR INR PTT (Actin FS) Sodium 129 L Potassium 4.8 Chloride 96 L Carbon Dioxide 23 Anion Gap 10 BUN 29 H Creatinine 1.2 H Creat Clearance w eGFR POC Glucometer 304 256 Random Glucose 224 H D Calcium 8.4 L Total Bilirubin AST ALT Alkaline Phosphatase Total Protein Albumin 04/04/17 04/04/17 04/04/17 06:00 06:23 06:30 WBC 15.9 H RBC 3.11 L Hgb 10.1 L D Hct 31.0 L MCV 99.9 H MCH 32.4 MCHC 32.5 RDW 25.0 H Plt Count 223 D MPV 9.9 Total Counted Neutrophils % No Result Required. Neutrophils % (Manual) Lymphocytes % No Result Required. Lymphocytes % (Manual) Monocytes % (Manual) Platelet Estimate Morphology Comment PT with INR INR PTT (Actin FS) Sodium 130 L Potassium 4.9 Chloride 97 L Carbon Dioxide 24 Anion Gap 9 BUN 25 H Creatinine 1.2 H Creat Clearance w eGFR 45.67 POC Glucometer 204 Random Glucose 164 H D Calcium 8.5 Total Bilirubin 0.8 D AST 80 H ALT 49 D Alkaline Phosphatase 266 H Total Protein 6.2 L Albumin 2.2 L 04/04/17 04/04/17 06:30 06:30 WBC RBC Hgb Hct MCV MCH MCHC RDW Plt Count MPV Total Counted Neutrophils % Neutrophils % (Manual) Lymphocytes % Lymphocytes % (Manual) Monocytes % (Manual) Platelet Estimate Morphology Comment PT with INR 22.80 H INR 2.02 H PTT (Actin FS) 59.0 H Sodium Potassium Chloride Carbon Dioxide Anion Gap BUN Creatinine Creat Clearance w eGFR POC Glucometer Random Glucose Calcium Total Bilirubin AST ALT Alkaline Phosphatase Total Protein Albumin PE N- alert, oriented, anxious cvs- s1s2 irregular lungs- distant lung sounds, diminished abd- obese, nt, nd LE- chronic lymphedema, stasis changes, dry skin A/P Metastatic ovarian ca with extensive mets afib possible PNA Shortness of breath- multifactorial- - PNA -ASTHMA -Lung mets -anxity pain related to malignancy leucocytosis -antibiotics -steroids, PPI -RT if patient can tolerate -xanax-psych consult for anxiety, h/o depression -pain medications- will get pain management consult -heparin to coumadin=INR therapeutic - d/c heparin -cardizem CD -Physical therapy -blood sugars running high- Add levemir -appetite stimulants if patient agrees- discussed with patient poor prognosis DNR/DNI - Problem List - Problems (1) PAF (paroxysmal atrial fibrillation) Code(s): I48.0 - PAROXYSMAL ATRIAL FIBRILLATION (2) Cancer-related pain Code(s): G89.3 - NEOPLASM RELATED PAIN (ACUTE) (CHRONIC) (3) Hyponatremia Code(s): E87.1 - HYPO-OSMOLALITY AND HYPONATREMIA (4) Hypothyroidism Code(s): E03.9 - HYPOTHYROIDISM, UNSPECIFIED (5) Thrombocytopenia Code(s): D69.6 - THROMBOCYTOPENIA, UNSPECIFIED (6) Anxiety Code(s): F41.9 - ANXIETY DISORDER, UNSPECIFIED (7) Primary cancer of ovary with widespread metastatic disease Code(s): C56.9 - MALIGNANT NEOPLASM OF UNSPECIFIED OVARY; C80.0 - DISSEMINATED MALIGNANT NEOPLASM, UNSPECIFIED (8) Hypothyroid Code(s): E03.9 - HYPOTHYROIDISM, UNSPECIFIED (9) Lymphedema Code(s): I89.0 - LYMPHEDEMA, NOT ELSEWHERE CLASSIFIED
--- NOTE | 2017-04-04 09:27 | PN ---
Progress Note (short form) - Note Progress Note: Pt seen/ examined [employer] today Case discussed. Documentation reviewed. discussed with nursing staff also. Agree with A/p Physical therapy d/c heparin -- inr - therapeutic blood sugar running high-- add basal insulin. monitor will follow. Problem List - Problems (1) Thrombocytopenia Code(s): D69.6 - THROMBOCYTOPENIA, UNSPECIFIED (2) A-fib Code(s): I48.91 - UNSPECIFIED ATRIAL FIBRILLATION Qualifiers: (3) Anemia Code(s): D64.9 - ANEMIA, UNSPECIFIED (4) Diabetes Code(s): E11.9 - TYPE 2 DIABETES MELLITUS WITHOUT COMPLICATIONS Qualifiers: Diabetes mellitus type: type 2 Diabetes mellitus complication status: without complication (5) Hypoalbuminemia Code(s): E88.09 - OTH DISORDERS OF PLASMA-PROTEIN METABOLISM, NEC (6) Primary cancer of ovary with widespread metastatic disease Code(s): C56.9 - MALIGNANT NEOPLASM OF UNSPECIFIED OVARY; C80.0 - DISSEMINATED MALIGNANT NEOPLASM, UNSPECIFIED
[2017-04-04] MEDS ORDERED: PT OWN MED DRAWER 7, Y5N ONE ×3 (10:33→19:54)
[2017-04-04] MEDS: TIOTROPIUM BROMIDE 18 MCG/INH (DEVICE W/ 5 CAPSULES) IH SCH (10:39)
[2017-04-04] MEDS: PANTOPRAZOLE 40 MG TABLET (FP) PO SCH (10:40)
[2017-04-04] MEDS: ACETAMINOPHEN 500 MG TABLET (FP) PO SCH (10:41)
[2017-04-04] MEDS: LIDOCAINE PATCH REMOVAL MC SCH (10:42)
[2017-04-04] MEDS: POLYETHYLENE GLYCOL 3350 119 GM BTL PO SCH (10:42)
[2017-04-04] MEDS: traMADol HCL 50 MG TABLET PO SCH (10:43)
[2017-04-04 11:27] LABS: ANISOCYTOSIS 3+; MACROCYTOSIS 0; PLATELET ESTIMATE NORMAL; TEAR DROP CELLS 1+
--- NOTE | 2017-04-04 12:32 | PN ---
Progress Note (short form) - Note Progress Note: Patient seen and examined feels weak Last Vital Signs Temp Pulse Resp BP Pulse Ox 97.8 F 103 H 20 110/64 97 04/04/17 10:00 04/04/17 10:00 04/04/17 10:00 04/04/17 10:00 04/04/17 09:00 Cor: RSR, No murmurs, No gallops Lungs: Clear to P&A Abd: Soft, Normal bowel sounds, No organomegaly Ext: venous stasis/lymphedema Abnormal Lab Results 04/03/17 04/04/17 04/04/17 20:35 06:00 06:30 WBC 15.9 H RBC 3.11 L Hgb 10.1 L D Hct 31.0 L MCV 99.9 H RDW 25.0 H Monocytes % (Manual) 16 H* Myelocytes % (Man) 3 H D Metamyelocytes 4 H D PT with INR INR PTT (Actin FS) Sodium 129 L 130 L Chloride 96 L 97 L BUN 29 H 25 H Creatinine 1.2 H 1.2 H Random Glucose 224 H D 164 H D Calcium 8.4 L AST 80 H Alkaline Phosphatase 266 H Total Protein 6.2 L Albumin 2.2 L 04/04/17 04/04/17 06:30 06:30 WBC RBC Hgb Hct MCV RDW Monocytes % (Manual) Myelocytes % (Man) Metamyelocytes PT with INR 22.80 H INR 2.02 H PTT (Actin FS) 59.0 H Sodium Chloride BUN Creatinine Random Glucose Calcium AST Alkaline Phosphatase Total Protein Albumin Active Medications Generic Name Dose Route Start Last Admin Trade Name Freq PRN Reason Stop Dose Admin Acetaminophen 500 mg 04/02/17 10:00 04/04/17 10:41 Tylenol - PO 500 mg DAILY [facility]IO Administration Acetylcysteine 200 mg 04/01/17 14:30 04/04/17 06:30 Mucomyst 20 Oral / Inh Use Only* NEB 200 mg QIDR [facility] Administration Albuterol Sulfate 1 amp 03/31/17 18:00 04/04/17 06:30 Ventolin 0.083% Nebulizer Soln - NEB 1 amp QIDR [facility] Administration Albuterol Sulfate 2 puff 04/02/17 14:49 04/03/17 21:46 Ventolin Hfa Inhaler - IH 2 puff Q4H PRN Administration SHORT OF BREATH/WHEEZING Alprazolam 0.25 mg 04/03/17 10:18 04/03/17 10:55 Xanax - PO 0.25 mg Q8H PRN Administration Bupropion HCl 150 mg 03/23/17 10:00 04/04/17 11:36 Wellbutrin Xl - PO 150 mg DAILY [facility] Administration Dexamethasone Sodium Phosphate 4 mg 04/03/17 18:00 04/04/17 06:26 Decadron Injection - IVPB 4 mg Q12H [facility] Administration Diltiazem HCl 300 mg 03/23/17 10:00 04/04/17 10:41 Cardizem Cd - PO 300 mg DAILY [facility] Administration Docusate Sodium 100 mg 03/26/17 22:00 04/04/17 13:08 Colace - PO Not Given TID [facility]IR[facility]IO Gabapentin 100 mg 03/29/17 22:00 04/04/17 13:08 Neurontin - PO Not Given TID VIRG[facility]IO Guaifenesin 10 ml 03/30/17 17:00 04/04/17 10:44 Diabetic Tussin Dm - PO 10 ml Q6H [facility] Administration Heparin Sodium (Porcine) 1,000 unit 03/30/17 14:39 04/02/17 12:05 Heparin - IVPUSH 1,000 unit PRN PRN Administration Heparin Piperacillin Sod/Tazobactam 50 mls @ 100 mls/hr 04/02/17 18:00 04/04/17 10:40 Sod 3.375 gm/ Dextrose IVPB 100 mls/hr Q8H-IV [facility] Administration Protocol Sodium Chloride 1,000 mls @ 83 mls/hr 04/03/17 11:28 04/03/17 16:22 Normal Saline - IV 83 mls/hr ASDIR VIRGILIO Administration Insulin Aspart 1 vial 03/24/17 18:16 04/04/17 11:50 Novolog Vial Sliding Scale - SQ 4 unit ACHS [facility] Administration Protocol Insulin Detemir 10 units 04/04/17 22:00 Levemir Vial SQ HS [facility] Levothyroxine Sodium 75 mcg 03/23/17 07:00 04/04/17 06:27 Synthroid - PO 75 mcg DAILY@0700 [facility] Administration Lidocaine 1 patch 03/25/17 00:15 04/03/17 21:34 Lidoderm Patch - TP Not Given HS [facility] Miscellaneous 1 each 03/25/17 10:00 04/04/17 10:42 Lidoderm Patch Removal MC Not Given DAILY [facility] Montelukast Sodium 10 mg 03/22/17 22:00 04/03/17 21:33 Singulair - PO 10 mg HS [facility] Administration Nystatin 500,000 units 04/04/17 00:00 04/04/17 13:05 Nystatin Oral Suspension - PO 500,000 units Q6HPO [facility] Administration Ondansetron HCl 4 mg 03/23/17 12:10 03/26/17 12:54 Zofran Injection IVPB 4 mg Q8H PRN Administration NAUSEA Pantoprazole Sodium 40 mg 04/03/17 10:00 04/04/17 10:40 Protonix - PO 40 mg DAILY [facility] Administration Polyethylene Glycol 17 gm 03/23/17 10:00 04/04/17 10:42 Miralax (For Daily Use) - PO Not Given DAILY [facility] Senna 2 tab 03/22/17 18:13 04/03/17 21:33 Senna - PO 2 tab HS PRN Administration CONSTIPATION Tiotropium [place] 1 puff 03/23/17 10:00 04/04/17 10:39 Spiriva - IH 1 puff DAILY [facility] Administration Tramadol HCl 75 mg 03/28/17 22:59 04/04/17 03:35 Ultram - PO 75 mg Q6H PRN Administration PAIN Tramadol HCl 75 mg 04/02/17 10:00 04/04/17 10:43 Ultram - PO 75 mg DAILY [facility] Administration Warfarin Sodium 3 mg 03/29/17 18:00 04/03/17 18:29 Coumadin - PO 3 mg DAILY@1800 [facility] Administration A/P 61 y/o patient with metastatic high grade mullerian cancer on gemzar Comes in with thrombocytopenia Transfused monodonor platelets Transfused PRBCs CT scans show progressive diseasse New T10 met/epidural disease pain control On heparin drip bridging to coumadin Cough-- nebulizer treatments/robitusssin On zosyn will check CT chest non contrast---discussed with rad-onc ? pleural effusion T10 metastases-- for RT, but feels too weak to go on decadron 4mg bid Pain control will hold fentanyl due to renal insufficiency continue tramadol/tylenol patient with pruritus with codeine/morphine/dilaudid discussed with patient and daughter about pazopanib they understand the side effects --hemorrhage/thromboembolic complications/ hepatic toxicity/handfoot syndrome/pneumonitis etc. discussed that based on foundation results will consider pazopanib
--- NOTE | 2017-04-04 13:34 | PN ---
Progress Note (short form) - Note Progress Note: Renal follow up for SURY Pt seen and examined at the bedside + cough with sputum production no chest pain making urine Vital Signs Temperature 97.8 F 04/04/17 10:00 Pulse Rate 103 H 04/04/17 10:00 Respiratory Rate 20 04/04/17 10:00 Blood Pressure 110/64 04/04/17 10:00 O2 Sat by Pulse Oximetry (%) 97 04/04/17 09:00 Intake & Output 04/01/17 04/02/17 04/03/17 04/04/17 23:59 23:59 23:59 23:59 Intake Total 5458 785 0855 Balance 9192 622 0547 Weight 156.671 kg NAD RRRR dry MM CTA Obese Abd 3+ edema in le CBC, BMP 04/04/17 06:30 04/04/17 06:00 Current Medications Acetaminophen (Tylenol -) 500 mg PO DAILY [facility] Last Admin: 04/04/17 10:41 Dose: 500 mg Acetylcysteine (Mucomyst 20 Oral / Inh Use Only*) 200 mg NEB QIDR [facility] Last Admin: 04/04/17 06:30 Dose: 200 mg Albuterol Sulfate (Ventolin 0.083% Nebulizer Soln -) 1 amp NEB QIDR [facility] Last Admin: 04/04/17 06:30 Dose: 1 amp Albuterol Sulfate (Ventolin Hfa Inhaler -) 2 puff IH Q4H PRN PRN Reason: SHORT OF BREATH/WHEEZING Last Admin: 04/03/17 21:46 Dose: 2 puff Alprazolam (Xanax -) 0.25 mg PO Q8H PRN Last Admin: 04/03/17 10:55 Dose: 0.25 mg Bupropion HCl (Wellbutrin Xl -) 150 mg PO DAILY [facility] Last Admin: 04/04/17 11:36 Dose: 150 mg Dexamethasone Sodium Phosphate (Decadron Injection -) 4 mg IVPB Q12H [facility] Last Admin: 04/04/17 06:26 Dose: 4 mg Diltiazem HCl (Cardizem Cd -) 300 mg PO DAILY [facility] Last Admin: 04/04/17 10:41 Dose: 300 mg Docusate Sodium (Colace -) 100 mg PO TID [facility] Last Admin: 04/04/17 13:08 Dose: Not Given Gabapentin (Neurontin -) 100 mg PO TID [facility] Last Admin: 04/04/17 13:08 Dose: Not Given Guaifenesin (Diabetic Tussin Dm -) 10 ml PO Q6H [facility] Last Admin: 04/04/17 10:44 Dose: 10 ml Heparin Sodium (Porcine) (Heparin -) 1,000 unit IVPUSH PRN PRN PRN Reason: Heparin Last Admin: 04/02/17 12:05 Dose: 1,000 unit Piperacillin Sod/Tazobactam (Sod 3.375 gm/ Dextrose) 50 mls @ 100 mls/hr IVPB Q8H-IV [facility] PRN Reason: Protocol Last Admin: 04/04/17 10:40 Dose: 100 mls/hr Sodium Chloride (Normal Saline -) 1,000 mls @ 83 mls/hr IV ASDIR [facility] Last Admin: 04/03/17 16:22 Dose: 83 mls/hr Insulin Aspart (Novolog Vial Sliding Scale -) 1 vial SQ ACHS [facility] PRN Reason: Protocol Last Admin: 04/04/17 11:50 Dose: 4 unit Insulin Detemir (Levemir Vial) 10 units SQ [facility] Levothyroxine Sodium (Synthroid -) 75 mcg PO DAILY@0700 [facility] Last Admin: 04/04/17 06:27 Dose: 75 mcg Lidocaine (Lidoderm Patch -) 1 patch TP [facility] Last Admin: 04/03/17 21:34 Dose: Not Given Miscellaneous (Lidoderm Patch Removal) 1 each MC DAILY [facility] Last Admin: 04/04/17 10:42 Dose: Not Given Montelukast Sodium (Singulair -) 10 mg PO [facility] Last Admin: 04/03/17 21:33 Dose: 10 mg Nystatin (Nystatin Oral Suspension -) 500,000 units PO Q6HPO [facility] Last Admin: 04/04/17 13:05 Dose: 500,000 units Ondansetron HCl (Zofran Injection) 4 mg IVPB Q8H PRN PRN Reason: NAUSEA Last Admin: 03/26/17 12:54 Dose: 4 mg Pantoprazole Sodium (Protonix -) 40 mg PO DAILY [facility] Last Admin: 04/04/17 10:40 Dose: 40 mg Polyethylene Glycol (Miralax (For Daily Use) -) 17 gm PO DAILY [facility] Last Admin: 04/04/17 10:42 Dose: Not Given Senna (Senna -) 2 tab PO HS PRN PRN Reason: CONSTIPATION Last Admin: 04/03/17 21:33 Dose: 2 tab Tiotropium [place] (Spiriva -) 1 puff IH DAILY [facility] Last Admin: 04/04/17 10:39 Dose: 1 puff Tramadol HCl (Ultram -) 75 mg PO Q6H PRN PRN Reason: PAIN Last Admin: 04/04/17 03:35 Dose: 75 mg Tramadol HCl (Ultram -) 75 mg PO DAILY [facility] Last Admin: 04/04/17 10:43 Dose: 75 mg Warfarin Sodium (Coumadin -) 3 mg PO DAILY@1800 [facility] Last Admin: 04/03/17 18:29 Dose: 3 mg 61 year old woman with PMhx of Metastatic Ovarian Ca (lung, Liver) on Chemo, Hypertension, DM Type 2, Chronic Lymphedema, Obesity presented with thrombocytopenia and found to have hyponatremia. #Acute Renal Insufficiency in setting of diuretics Renal function stable continue fluids for now oral intake as tolerated #Hyperkalemia improved today off supplement and on IVF #Hyponatremia na stable Mirza Zuleta DO
--- NOTE | 2017-04-04 14:45 | PN ---
Progress Note (short form) - Note Progress Note: PULMONARY AWAKE/ALERT FAMILY PRESENT COUGH/SCANT SPUTUM VSS/AFEBRILE PALE/ANICTERIC DIMINISHED B/L BREATH SOUNDS S1S2 BS+ OBESE LYMPHEDEMA B/L LOWER EXT LABS/MEDS/NOTES/IMAGES REVIEWED Metastatic High Grade Mullerian Ca with extensive mets to lung Asthma Atrial Fibrillation Acute Kidney Injury Morbid Obesity DM - continue decadron same dose - inhaled bronchodilators - O2 to keep SpO2 >90% - antibiotics per ID - rate controlled - continue anticoagulation - palliative RT if she can lie flat Amy SULLIVAN MD
[2017-04-04] MEDS: WARFARIN NA 3 MG TABLET PO SCH (17:50)
[2017-04-04] MEDS: INSULIN DETEMIR 100 UNITS/ML MDV SQ SCH (22:56)
[2017-04-04] MEDS: MONTELUKAST NA 10 MG TABLET PO SCH (23:00)
[2017-04-04] MEDS: SODIUM CHLORIDE 1,000 ML IV SCH (23:08)
[2017-04-04] MEDS: LIDOCAINE 5% TOPICAL PATCH TP SCH (23:10)
[2017-04-05] MEDS: ACETAMINOPHEN 500 MG TABLET (FP) PO PRN (00:01)
[2017-04-05] MEDS: ALBUTEROL SO4 0.083% IH SOL 2.5 MG/3 ML VIAL.NEB. NEB SCH ×4 (00:05→17:30)
[2017-04-05] MEDS: ACETYLCYSTEINE 20% 200MG/ML 30 ML VIAL *FOR ORAL / INH USE ONLY NEB SCH ×5 (00:05→23:38)
--- NOTE | 2017-04-05 01:33 | PN ---
Progress Note, Physician Chief Complaint: Pt History of Present Illness: Ms. 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 Pt presented to the ED after outpt labs reveled thrombocytopenia to 39k. Coumadin was held and is still on hold, no active bleed noted. Pt received 1 unit platelets and is being admitted for further transfusions. Of note, pt was climbing the stairs, when she reached the final step her leg went weak and then pivoted around. She now has some eccyhymosis to her lateral side, slip was witnessed by daughter and EMS worker, she did not hit her head, xrays pending. History Source: Patient, Family Member Limitations to Obtaining History: No Limitations - Past Medical History Cardiovascular: Yes: AFIB, HTN, Other (chronic lymphedema) Pulmonary: Yes: COPD, Other (recently had a chest tube removed). No: O2 Dependent Gastrointestinal: Yes: GERD Heme/Onc: Yes: Anemia, Other Endocrine: Yes: Diabetes Mellitus, Hyperthyroidism - Current Medication List Current Medications: Active Medications Acetaminophen (Tylenol -) 500 mg PO DAILY [facility] Last Admin: 04/04/17 10:41 Dose: 500 mg Acetaminophen (Tylenol -) 500 mg PO Q6H PRN PRN Reason: FEVER OR PAIN Last Admin: 04/05/17 00:01 Dose: 500 mg Acetylcysteine (Mucomyst 20 Oral / Inh Use Only*) 200 mg NEB QIDR [facility] Last Admin: 04/05/17 00:05 Dose: 200 mg Albuterol Sulfate (Ventolin 0.083% Nebulizer Soln -) 1 amp NEB QIDR [facility] Last Admin: 04/05/17 00:05 Dose: 1 amp Albuterol Sulfate (Ventolin Hfa Inhaler -) 2 puff IH Q4H PRN PRN Reason: SHORT OF BREATH/WHEEZING Last Admin: 04/03/17 21:46 Dose: 2 puff Alprazolam (Xanax -) 0.25 mg PO Q8H PRN Last Admin: 04/03/17 10:55 Dose: 0.25 mg Bupropion HCl (Wellbutrin Xl -) 150 mg PO DAILY [facility] Last Admin: 04/04/17 11:36 Dose: 150 mg Dexamethasone Sodium Phosphate (Decadron Injection -) 4 mg IVPB Q12H [facility] Last Admin: 04/04/17 17:50 Dose: 4 mg Diltiazem HCl (Cardizem Cd -) 300 mg PO DAILY [facility] Last Admin: 04/04/17 10:41 Dose: 300 mg Docusate Sodium (Colace -) 100 mg PO TID [facility] Last Admin: 04/04/17 23:09 Dose: Not Given Gabapentin (Neurontin -) 100 mg PO TID [facility] Last Admin: 04/04/17 22:54 Dose: 100 mg Guaifenesin (Diabetic Tussin Dm -) 10 ml PO Q6H [facility] Last Admin: 04/04/17 23:10 Dose: 10 ml Heparin Sodium (Porcine) (Heparin -) 1,000 unit IVPUSH PRN PRN PRN Reason: Heparin Last Admin: 04/02/17 12:05 Dose: 1,000 unit Piperacillin Sod/Tazobactam (Sod 3.375 gm/ Dextrose) 50 mls @ 100 mls/hr IVPB Q8H-IV [facility] PRN Reason: Protocol Last Admin: 04/04/17 17:50 Dose: 100 mls/hr Sodium Chloride (Normal Saline -) 1,000 mls @ 83 mls/hr IV ASDIR [facility] Last Admin: 04/04/17 23:08 Dose: 83 mls/hr Insulin Aspart (Novolog Vial Sliding Scale -) 1 vial SQ ACHS [facility] PRN Reason: Protocol Last Admin: 04/04/17 22:57 Dose: 4 unit Insulin Detemir (Levemir Vial) 10 units SQ HS [facility] Last Admin: 04/04/17 22:56 Dose: 10 unit Levothyroxine Sodium (Synthroid -) 75 mcg PO DAILY@0700 [facility] Last Admin: 04/04/17 06:27 Dose: 75 mcg Lidocaine (Lidoderm Patch -) 1 patch TP [facility] Last Admin: 04/04/17 23:10 Dose: Not Given Miscellaneous (Lidoderm Patch Removal) 1 each MC DAILY [facility] Last Admin: 04/04/17 10:42 Dose: Not Given Montelukast Sodium (Singulair -) 10 mg PO HS [facility] Last Admin: 04/04/17 23:00 Dose: 10 mg Pazopanib 200 Mg (Tablet) 2 each PO DAILY@1100 [facility] Nystatin (Nystatin Oral Suspension -) 500,000 units PO Q6HPO [facility] Last Admin: 04/04/17 23:11 Dose: 500,000 units Pantoprazole Sodium (Protonix -) 40 mg PO DAILY [facility] Last Admin: 04/04/17 10:40 Dose: 40 mg Polyethylene Glycol (Miralax (For Daily Use) -) 17 gm PO DAILY [facility] Last Admin: 04/04/17 10:42 Dose: Not Given Senna (Senna -) 2 tab PO HS PRN PRN Reason: CONSTIPATION Last Admin: 04/03/17 21:33 Dose: 2 tab Tiotropium [place] (Spiriva -) 1 puff IH DAILY [facility] Last Admin: 04/04/17 10:39 Dose: 1 puff Tramadol HCl (Ultram -) 75 mg PO Q6H PRN PRN Reason: PAIN Last Admin: 04/04/17 22:54 Dose: 75 mg Tramadol HCl (Ultram -) 75 mg PO DAILY [facility] Last Admin: 04/04/17 10:43 Dose: 75 mg Warfarin Sodium (Coumadin -) 3 mg PO DAILY@1800 [facility] Last Admin: 04/04/17 17:50 Dose: 3 mg - Objective Vital Signs: Vital Signs Temperature 98.2 F 04/04/17 18:00 Pulse Rate 106 H 04/04/17 18:00 Respiratory Rate 20 04/04/17 18:00 Blood Pressure 134/58 04/04/17 18:00 O2 Sat by Pulse Oximetry (%) 97 04/04/17 09:00 Constitutional: Yes: Anxious, Obese Eyes: Yes: WNL HENT: Yes: WNL Neck: Yes: Supple Cardiovascular: Yes: Tachycardia, Pulse Irregular, S1 (varies in intensity), S2 Respiratory: Yes: Diminished Gastrointestinal: Yes: Soft, Abdomen, Obese ...Rectal Exam: Yes: Deferred Genitourinary: No: Anuria Musculoskeletal: Yes: Joint Stiffness, Joint Swelling, Muscle Weakness Extremities: Yes: Cool Edema: Yes Edema: LLE: 3+, RLE: 3+ Peripheral Pulses WNL: No Peripheral Pulses: Left Doralis Pedis: 1+, Right Dorsalis Pedis: 1+ Integumentary: Yes: Venous Stasis Changes, Other Neurological: Yes: Alert, Oriented, Unsteady Gait, Weakness Psychiatric: Yes: Other Labs: CBC, BMP 04/04/17 06:30 04/04/17 06:00 INR, PTT INR 2.02 (0.82-1.09) H 04/04/17 06:30 Abnormal Lab Results 04/04/17 04/04/17 04/04/17 06:00 06:30 06:30 WBC 15.9 H RBC 3.11 L Hgb 10.1 L D Hct 31.0 L MCV 99.9 H RDW 25.0 H Monocytes % (Manual) 16 H* Myelocytes % (Man) 3 H D Metamyelocytes 4 H D PT with INR 22.80 H INR 2.02 H PTT (Actin FS) Sodium 130 L Chloride 97 L BUN 25 H Creatinine 1.2 H Random Glucose 164 H D AST 80 H Alkaline Phosphatase 266 H Total Protein 6.2 L Albumin 2.2 L 04/04/17 06:30 WBC RBC Hgb Hct MCV RDW Monocytes % (Manual) Myelocytes % (Man) Metamyelocytes PT with INR INR PTT (Actin FS) 59.0 H Sodium Chloride BUN Creatinine Random Glucose AST Alkaline Phosphatase Total Protein Albumin Problem List - Problems (1) Leukocytosis Code(s): D72.829 - ELEVATED WHITE BLOOD CELL COUNT, UNSPECIFIED (2) MRSA (methicillin resistant Staphylococcus aureus) colonization Code(s): Z22.322 - CARRIER OR SUSPECTED CARRIER OF METHICILLIN RESIS STAPH (3) Thrombocytopenia Code(s): D69.6 - THROMBOCYTOPENIA, UNSPECIFIED (4) A-fib Assessment/Plan: Continue diltiazem CD for HR control. Continue on warfarin (INR now >2.0). Maintain K 4-4.5, Mg 2-2.3, PO4 2.5-3.5. Code(s): I48.91 - UNSPECIFIED ATRIAL FIBRILLATION Qualifiers: (5) Abscess Code(s): L02.91 - CUTANEOUS ABSCESS, UNSPECIFIED (6) Anemia Code(s): D64.9 - ANEMIA, UNSPECIFIED (7) Anxiety and depression Code(s): F41.9 - ANXIETY DISORDER, UNSPECIFIED; F32.9 - MAJOR DEPRESSIVE DISORDER, SINGLE EPISODE, UNSPECIFIED (8) Cancer of ovary Assessment/Plan: CA ovaries with mets. Rx per oncologist. Code(s): C56.9 - MALIGNANT NEOPLASM OF UNSPECIFIED OVARY Qualifiers: (9) Cellulitis Code(s): L03.90 - CELLULITIS, UNSPECIFIED Qualifiers: Site of cellulitis: extremity Site of cellulitis of extremity: lower extremity Laterality: left Qualified Code(s): L03.116 - Cellulitis of left lower limb (10) Diabetes Code(s): E11.9 - TYPE 2 DIABETES MELLITUS WITHOUT COMPLICATIONS Qualifiers: Diabetes mellitus type: type 2 Diabetes mellitus complication status: without complication (11) HTN (hypertension) Code(s): I10 - ESSENTIAL (PRIMARY) HYPERTENSION Qualifiers: (12) Primary cancer of ovary with widespread metastatic disease Code(s): C56.9 - MALIGNANT NEOPLASM OF UNSPECIFIED OVARY; C80.0 - DISSEMINATED MALIGNANT NEOPLASM, UNSPECIFIED (13) SOB (shortness of breath) Assessment/Plan: SOB on minimal exertion.. On cough supressants (with improvement in cough) and antibiotics. Code(s): R06.02 - SHORTNESS OF BREATH (14) Hypothyroid Assessment/Plan: On synthroid. Code(s): E03.9 - HYPOTHYROIDISM, UNSPECIFIED (15) Lymphedema Code(s): I89.0 - LYMPHEDEMA, NOT ELSEWHERE CLASSIFIED
[2017-04-05] MEDS ORDERED: PT OWN MED DRAWER 7, Y5N ONE ×4 (01:35→11:40)
[2017-04-05] MEDS: PIPERACILLIN/TAZOB 3.375 GM 3.375 GM in DEXTROSE 5%-WATER - 50 ML IVPB SCH ×3 (01:39→17:25)
[2017-04-05] MEDS: guaiFENesin/D-M SUGAR-FREE/ACLHOL-FREE 118 ML BOTTLE PO SCH ×4 (06:00→22:05)
[2017-04-05] MEDS: INSULIN SLIDING SCALE (NOVOLOG) 1 VIAL SQ SCH ×4 (06:44→22:04)
[2017-04-05] MEDS ORDERED: INSULIN (NOVOLOG) ASPART 100 UNITS/ML 10ML VIAL ONE ×2 (06:46→21:28)
[2017-04-05] MEDS: LEVOTHYROXINE NA 75 MCG TABLET (FP) PO SCH (06:55)
[2017-04-05] MEDS: NYSTATIN 500,000 UNITS/5 ML SUSPENSION PO SCH ×3 (06:55→18:21)
[2017-04-05] MEDS: DEXAMETHASONE SOD PHOSPHATE 4 MG/1 ML VIAL IVPB SCH ×2 (06:56→17:25)
[2017-04-05] MEDS: DOCUSATE SODIUM 100 MG CAPSULE (FP) PO SCH ×3 (06:56→22:04)
[2017-04-05] MEDS: GABAPENTIN 100 MG CAPSULE (FP) PO SCH ×4 (06:56→22:15)
[2017-04-05 08:02] LABS: HEMOGLOBIN 10.3 GM/dL (10.7-15.3); MCH 32.4 pg (25.7-33.7); MCHC 32.1 g/dl (32.0-36.0); MEAN CELL VOLUME 100.9 fl (80-96); MEAN PLT VOLUME 9.1 fl (7.5-11.1); PLATELET COUNT 211 K/MM3 (134-434); RBC 3.17 M/mm3 (3.60-5.2); RDW 24.5 % (11.6-15.6); WHITE BLOOD COUNT 14.2 K/mm3 (4.0-10.0)
[2017-04-05 08:46] LABS: ANION GAP 10 (8-16); BLOOD UREA NITROGEN 27 mg/dL (7-18); CALCIUM 8.9 mg/dL (8.5-10.1); CHLORIDE 98 mmol/L (98-107); CO2 25 mmol/L (21-32); CREATININE 1.1 mg/dL (0.55-1.02); GLUCOSE,RANDOM 138 mg/dL (74-106); POTASSIUM 4.7 mmol/L (3.5-5.1); SODIUM 133 mmol/L (136-145)
[2017-04-05] MEDS: traMADol HCL 50 MG TABLET PO PRN ×2 (09:55→16:07)
--- NOTE | 2017-04-05 09:56 | PN ---
Progress Note (short form) - Note Progress Note: Renal follow up for SURY Pt seen and examined at the bedside awake and alert continues to have cough and mild sob Vital Signs Temperature 97.2 F L 04/05/17 06:00 Pulse Rate 100 H 04/05/17 06:00 Respiratory Rate 20 04/05/17 06:00 Blood Pressure 102/60 04/05/17 06:00 O2 Sat by Pulse Oximetry (%) 100 04/04/17 21:00 Intake & Output 04/02/17 04/03/17 04/04/17 04/05/17 23:59 23:59 23:59 23:59 Intake Total 437 3946 1565 681 Balance 437 3946 1565 681 NAD RRRR dry MM CTA Obese Abd 3+ edema in le CBC, BMP 04/05/17 06:00 04/05/17 08:25 Current Medications Acetaminophen (Tylenol -) 500 mg PO DAILY [facility] Last Admin: 04/04/17 10:41 Dose: 500 mg Acetaminophen (Tylenol -) 500 mg PO Q6H PRN PRN Reason: FEVER OR PAIN Last Admin: 04/05/17 00:01 Dose: 500 mg Acetylcysteine (Mucomyst 20 Oral / Inh Use Only*) 200 mg NEB QIDR [facility] Last Admin: 04/05/17 06:46 Dose: 200 mg Albuterol Sulfate (Ventolin 0.083% Nebulizer Soln -) 1 amp NEB QIDR [facility] Last Admin: 04/05/17 06:46 Dose: 1 amp Albuterol Sulfate (Ventolin Hfa Inhaler -) 2 puff IH Q4H PRN PRN Reason: SHORT OF BREATH/WHEEZING Last Admin: 04/03/17 21:46 Dose: 2 puff Alprazolam (Xanax -) 0.25 mg PO Q8H PRN Last Admin: 04/03/17 10:55 Dose: 0.25 mg Bupropion HCl (Wellbutrin Xl -) 150 mg PO DAILY [facility] Last Admin: 04/04/17 11:36 Dose: 150 mg Dexamethasone Sodium Phosphate (Decadron Injection -) 4 mg IVPB Q12H [facility] Last Admin: 04/05/17 06:56 Dose: 4 mg Diltiazem HCl (Cardizem Cd -) 300 mg PO DAILY [facility] Last Admin: 04/04/17 10:41 Dose: 300 mg Docusate Sodium (Colace -) 100 mg PO TID [facility] Last Admin: 04/05/17 06:56 Dose: 100 mg Gabapentin (Neurontin -) 100 mg PO TID [facility] Last Admin: 04/05/17 06:56 Dose: 100 mg Guaifenesin (Diabetic Tussin Dm -) 10 ml PO Q6H [facility] Last Admin: 04/05/17 06:00 Dose: 10 ml Heparin Sodium (Porcine) (Heparin -) 1,000 unit IVPUSH PRN PRN PRN Reason: Heparin Last Admin: 04/02/17 12:05 Dose: 1,000 unit Piperacillin Sod/Tazobactam (Sod 3.375 gm/ Dextrose) 50 mls @ 100 mls/hr IVPB Q8H-IV [facility] PRN Reason: Protocol Last Admin: 04/05/17 09:42 Dose: 100 mls/hr Sodium Chloride (Normal Saline -) 1,000 mls @ 83 mls/hr IV ASDIR [facility] Last Admin: 04/04/17 23:08 Dose: 83 mls/hr Insulin Aspart (Novolog Vial Sliding Scale -) 1 vial SQ ACHS [facility] PRN Reason: Protocol Last Admin: 04/05/17 06:44 Dose: Not Given Insulin Detemir (Levemir Vial) 10 units SQ [facility] Last Admin: 04/04/17 22:56 Dose: 10 unit Levothyroxine Sodium (Synthroid -) 75 mcg PO DAILY@0700 [facility] Last Admin: 04/05/17 06:55 Dose: 75 mcg Lidocaine (Lidoderm Patch -) 1 patch TP [facility] Last Admin: 04/04/17 23:10 Dose: Not Given Miscellaneous (Lidoderm Patch Removal) 1 each MC DAILY [facility] Last Admin: 04/04/17 10:42 Dose: Not Given Montelukast Sodium (Singulair -) 10 mg PO HS [facility] Last Admin: 04/04/17 23:00 Dose: 10 mg Pazopanib 200 Mg (Tablet) 2 each PO DAILY@1100 [facility] Nystatin (Nystatin Oral Suspension -) 500,000 units PO Q6HPO [facility] Last Admin: 04/05/17 06:55 Dose: 500,000 units Pantoprazole Sodium (Protonix -) 40 mg PO DAILY [facility] Last Admin: 04/04/17 10:40 Dose: 40 mg Polyethylene Glycol (Miralax (For Daily Use) -) 17 gm PO DAILY [facility] Last Admin: 04/04/17 10:42 Dose: Not Given Senna (Senna -) 2 tab PO HS PRN PRN Reason: CONSTIPATION Last Admin: 04/03/17 21:33 Dose: 2 tab Tiotropium [place] (Spiriva -) 1 puff IH DAILY [facility] Last Admin: 04/04/17 10:39 Dose: 1 puff Tramadol HCl (Ultram -) 75 mg PO Q6H PRN PRN Reason: PAIN Last Admin: 04/04/17 22:54 Dose: 75 mg Tramadol HCl (Ultram -) 75 mg PO DAILY [facility] Last Admin: 04/04/17 10:43 Dose: 75 mg Warfarin Sodium (Coumadin -) 3 mg PO DAILY@1800 [facility] Last Admin: 04/04/17 17:50 Dose: 3 mg 61 year old woman with PMhx of Metastatic Ovarian Ca (lung, Liver) on Chemo, Hypertension, DM Type 2, Chronic Lymphedema, Obesity presented with thrombocytopenia and found to have hyponatremia. #Acute Renal Insufficiency in setting of diuretics Renal function with gradual improvement continue isotonic saline at present rate as pt with poor oral intake still #Hyperkalemia improved trend daily #Hyponatremia na 133 today #PNA on Zosyn #Metastatic ovarian Ca supportive care Mirza Zuleta DO
[2017-04-05] MEDS: ACETAMINOPHEN 500 MG TABLET (FP) PO SCH (10:02)
[2017-04-05] MEDS: traMADol HCL 50 MG TABLET PO SCH (10:03)
[2017-04-05] MEDS: LIDOCAINE PATCH REMOVAL MC SCH (10:06)
[2017-04-05] MEDS: POLYETHYLENE GLYCOL 3350 119 GM BTL PO SCH (10:06)
[2017-04-05] MEDS: PANTOPRAZOLE 40 MG TABLET (FP) PO SCH (10:06)
[2017-04-05] MEDS: TIOTROPIUM BROMIDE 18 MCG/INH (DEVICE W/ 5 CAPSULES) IH SCH (10:06)
[2017-04-05] MEDS ORDERED: PROCHLORPERAZINE MALEATE 5 MG TABLET PO PRN (10:08)
[2017-04-05 10:50] LABS: CHOLESTEROL 125 mg/dL (50-200); HDL CHOLESTEROL 63 mg/dL (40-60); LDL CHOLESTEROL (ONLY SJRH) 49 mg/dL (5-100); TRIGLYCERIDES 117 mg/dL (35-160)
--- NOTE | 2017-04-05 12:52 | PN ---
Progress Note (short form) - Note Progress Note: PULMONARY AWAKE/ALERT FAMILY PRESENT COUGH/SCANT SPUTUM VSS/AFEBRILE PALE/ANICTERIC DIMINISHED B/L BREATH SOUNDS LEFT GREATER THAN RIGHT S1S2 BS+ OBESE LYMPHEDEMA B/L LOWER EXT LABS/MEDS/NOTES/IMAGES REVIEWED Metastatic High Grade Mullerian Ca with extensive mets to lung Asthma Atrial Fibrillation Acute Kidney Injury Morbid Obesity DM - continue decadron same dose - inhaled bronchodilators - O2 to keep SpO2 >90% - antibiotics per ID - rate controlled - continue anticoagulation - palliative RT if she can lie flat Amy SULLIVAN MD
--- NOTE | 2017-04-05 13:29 | PN ---
Progress Note (short form) - Note Progress Note: Patient seen and examined feels weak overall doing ok Vital Signs Period Temp Pulse Resp BP Sys/Dinero Pulse Ox Last 24 Hr 97.1 F-98.2 F 100-107 18-22 102-134/48-60 100 sitting and eating lunch looks ok CBC, BMP 04/05/17 06:00 04/05/17 08:25 Current Medications Generic Name Dose Route Start Last Admin Trade Name Freq PRN Reason Stop Dose Admin Acetaminophen 500 mg 04/02/17 10:00 04/05/17 10:02 Tylenol - PO 500 mg DAILY [facility] Administration Acetaminophen 500 mg 04/04/17 23:28 04/05/17 00:01 Tylenol - PO 500 mg Q6H PRN Administration FEVER OR PAIN Acetylcysteine 200 mg 04/01/17 14:30 04/05/17 11:07 Mucomyst 20 Oral / Inh Use Only* NEB 200 mg QIDR [facility] Administration Albuterol Sulfate 1 amp 03/31/17 18:00 04/05/17 11:07 Ventolin 0.083% Nebulizer Soln - NEB 1 amp QIDR [facility] Administration Albuterol Sulfate 2 puff 04/02/17 14:49 04/03/17 21:46 Ventolin Hfa Inhaler - IH 2 puff Q4H PRN Administration SHORT OF BREATH/WHEEZING Alprazolam 0.25 mg 04/03/17 10:18 04/03/17 10:55 Xanax - PO 0.25 mg Q8H PRN Administration Bupropion HCl 150 mg 03/23/17 10:00 04/05/17 10:07 Wellbutrin Xl - PO 150 mg DAILY [facility] Administration Dexamethasone Sodium Phosphate 4 mg 04/03/17 18:00 04/05/17 06:56 Decadron Injection - IVPB 4 mg Q12H [facility] Administration Diltiazem HCl 300 mg 03/23/17 10:00 04/05/17 10:04 Cardizem Cd - PO 300 mg DAILY [facility] Administration Docusate Sodium 100 mg 03/26/17 22:00 04/05/17 06:56 Colace - PO 100 mg TID [facility] Administration Gabapentin 100 mg 03/29/17 22:00 04/05/17 06:56 Neurontin - PO 100 mg TID [facility] Administration Guaifenesin 10 ml 03/30/17 17:00 04/05/17 06:00 Diabetic Tussin Dm - PO 10 ml Q6H [facility] Administration Piperacillin Sod/Tazobactam 50 mls @ 100 mls/hr 04/02/17 18:00 04/05/17 09:42 Sod 3.375 gm/ Dextrose IVPB 100 mls/hr Q8H-IV [facility] Administration Protocol Sodium Chloride 1,000 mls @ 83 mls/hr 04/03/17 11:28 04/04/17 23:08 Normal Saline - IV 83 mls/hr ASDIR [facility] Administration Insulin Aspart 1 vial 03/24/17 18:16 04/05/17 06:44 Novolog Vial Sliding Scale - SQ Not Given ACHS [facility] Protocol Insulin Detemir 10 units 04/04/17 22:00 04/04/17 22:56 Levemir Vial SQ 10 unit HS [facility] Administration Levothyroxine Sodium 75 mcg 03/23/17 07:00 04/05/17 06:55 Synthroid - PO 75 mcg DAILY@0700 [facility] Administration Lidocaine 1 patch 03/25/17 00:15 04/04/17 23:10 Lidoderm Patch - TP Not Given HS [facility] Miscellaneous 1 each 03/25/17 10:00 04/05/17 10:06 Lidoderm Patch Removal MC Not Given DAILY [facility] Montelukast Sodium 10 mg 03/22/17 22:00 04/04/17 23:00 Singulair - PO 10 mg HS [facility] Administration Pazopanib 200 Mg 2 each 04/05/17 11:00 Tablet PO DAILY@1100 [facility] Nystatin 500,000 units 04/04/17 00:00 04/05/17 06:55 Nystatin Oral Suspension - PO 500,000 units Q6HPO [facility] Administration Pantoprazole Sodium 40 mg 04/03/17 10:00 04/05/17 10:06 Protonix - PO 40 mg DAILY [facility] Administration Polyethylene Glycol 17 gm 03/23/17 10:00 04/05/17 10:06 Miralax (For Daily Use) - PO 17 grams DAILY [facility] Administration Prochlorperazine Maleate 10 mg 04/05/17 10:08 Compazine - PO Q6H PRN NAUSEA AND/OR VOMITING Senna 2 tab 03/22/17 18:13 04/03/17 21:33 Senna - PO 2 tab HS PRN Administration CONSTIPATION Tiotropium [place] 1 puff 03/23/17 10:00 04/05/17 10:06 Spiriva - IH 1 puff DAILY [facility] Administration Tramadol HCl 75 mg 03/28/17 22:59 04/05/17 09:55 Ultram - PO 75 mg Q6H PRN Administration PAIN Tramadol HCl 75 mg 04/02/17 10:00 04/05/17 10:03 Ultram - PO Not Given DAILY [facility] Warfarin Sodium 3 mg 03/29/17 18:00 04/04/17 17:50 Coumadin - PO 3 mg DAILY@1800 [facility] Administration A/P 61 y/o patient with metastatic high grade mullerian cancer on gemzar Comes in with thrombocytopenia Transfused monodonor platelets Transfused PRBCs CT scans show progressive diseasse New T10 met/epidural disease pain control On coumadin Cough-- nebulizer treatments/robitusssin On zosyn will check CT chest non contrast---discussed with rad-onc ? pleural effusion T10 metastases-- for RT, but feels too weak to go on decadron 4mg bid Pain control will hold fentanyl due to renal insufficiency continue tramadol/tylenol patient with pruritus with codeine/morphine/dilaudid she is starting pazopanib today
--- NOTE | 2017-04-05 13:43 | PN ---
Progress Note (short form) - Note Progress Note: patient is 61 yo female with Metatastic mullerian ovarian cancer, HTN, Obesity, DM type 2 and Lymphaedenia, recently hyper kalaemia. She is starting on Chemotherapeutic agent today. Has stage 2 pressure ulcer. Currently she is on wellbutrin 150mg daily, last given this amat 10. She is on xanax but not recieved since 12-14. On gabapentin 100mg TID. Takes tramadol and warfarin also. Client met with her daughter in room, client is dressed in gowns, sparse hair , answered mostly with yes or no, very soft speech at present. Mild anxiety present, attempting to adjust to current diagnosis of metastic CA. Some cognitive blunting. Awareness is present, and o by 4, denies SI, HI ah or VH,. Plan.. Continue wellbutrin at 150 mg per day in am, avoid sarai or night dosing as it will keep her awake. Problem List - Problems (1) Anxiety Code(s): F41.9 - ANXIETY DISORDER, UNSPECIFIED
--- NOTE | 2017-04-05 13:45 | PN ---
Progress Note (short form) - Note Progress Note: Vital Signs Temp 97.2 F L 04/05/17 06:00 Pulse 100 H 04/05/17 06:00 Resp 20 04/05/17 06:00 BP 102/60 04/05/17 06:00 Pulse Ox 99 04/05/17 09:00 Intake & Output 04/04/17 04/05/17 04/05/17 23:59 11:59 23:59 Intake Total 1565 918 Balance 1565 918 Intake: IV 1245 581 Normal Saline - 1,000 ml 1245 581 @ 83 mls/hr IV ASDIR [facility] Rx#:[id number] IVPB 100 100 Oral 220 Oral Supplement 237 Other: Voiding Method Bedpan Bedpan # Unmeasured Voids Void 2 1 Bowel Movement Yes No Active Medications Acetaminophen (Tylenol -) 500 mg PO DAILY [facility] Last Admin: 04/05/17 10:02 Dose: 500 mg Acetaminophen (Tylenol -) 500 mg PO Q6H PRN PRN Reason: FEVER OR PAIN Last Admin: 04/05/17 00:01 Dose: 500 mg Acetylcysteine (Mucomyst 20 Oral / Inh Use Only*) 200 mg NEB QIDR [facility] Last Admin: 04/05/17 11:07 Dose: 200 mg Albuterol Sulfate (Ventolin 0.083% Nebulizer Soln -) 1 amp NEB QIDR [facility] Last Admin: 04/05/17 11:07 Dose: 1 amp Albuterol Sulfate (Ventolin Hfa Inhaler -) 2 puff IH Q4H PRN PRN Reason: SHORT OF BREATH/WHEEZING Last Admin: 04/03/17 21:46 Dose: 2 puff Alprazolam (Xanax -) 0.25 mg PO Q8H PRN Last Admin: 04/03/17 10:55 Dose: 0.25 mg Bupropion HCl (Wellbutrin Xl -) 150 mg PO DAILY [facility] Last Admin: 04/05/17 10:07 Dose: 150 mg Dexamethasone Sodium Phosphate (Decadron Injection -) 4 mg IVPB Q12H [facility] Last Admin: 04/05/17 06:56 Dose: 4 mg Diltiazem HCl (Cardizem Cd -) 300 mg PO DAILY [facility] Last Admin: 04/05/17 10:04 Dose: 300 mg Docusate Sodium (Colace -) 100 mg PO TID [facility] Last Admin: 04/05/17 06:56 Dose: 100 mg Gabapentin (Neurontin -) 100 mg PO TID [facility] Last Admin: 04/05/17 06:56 Dose: 100 mg Guaifenesin (Diabetic Tussin Dm -) 10 ml PO Q6H [facility] Last Admin: 04/05/17 06:00 Dose: 10 ml Piperacillin Sod/Tazobactam (Sod 3.375 gm/ Dextrose) 50 mls @ 100 mls/hr IVPB Q8H-IV [facility] PRN Reason: Protocol Last Admin: 04/05/17 09:42 Dose: 100 mls/hr Sodium Chloride (Normal Saline -) 1,000 mls @ 83 mls/hr IV ASDIR [facility] Last Admin: 04/04/17 23:08 Dose: 83 mls/hr Insulin Aspart (Novolog Vial Sliding Scale -) 1 vial SQ ACHS [facility] PRN Reason: Protocol Last Admin: 04/05/17 06:44 Dose: Not Given Insulin Detemir (Levemir Vial) 10 units SQ [facility] Last Admin: 04/04/17 22:56 Dose: 10 unit Levothyroxine Sodium (Synthroid -) 75 mcg PO DAILY@0700 [facility] Last Admin: 04/05/17 06:55 Dose: 75 mcg Lidocaine (Lidoderm Patch -) 1 patch TP [facility] Last Admin: 04/04/17 23:10 Dose: Not Given Miscellaneous (Lidoderm Patch Removal) 1 each MC DAILY [facility] Last Admin: 04/05/17 10:06 Dose: Not Given Montelukast Sodium (Singulair -) 10 mg PO [facility] Last Admin: 04/04/17 23:00 Dose: 10 mg Pazopanib 200 Mg (Tablet) 2 each PO DAILY@1100 [facility] Nystatin (Nystatin Oral Suspension -) 500,000 units PO Q6HPO [facility] Last Admin: 04/05/17 06:55 Dose: 500,000 units Pantoprazole Sodium (Protonix -) 40 mg PO DAILY [facility] Last Admin: 04/05/17 10:06 Dose: 40 mg Polyethylene Glycol (Miralax (For Daily Use) -) 17 gm PO DAILY [facility] Last Admin: 04/05/17 10:06 Dose: 17 grams Prochlorperazine Maleate (Compazine -) 10 mg PO Q6H PRN PRN Reason: NAUSEA AND/OR VOMITING Senna (Senna -) 2 tab PO HS PRN PRN Reason: CONSTIPATION Last Admin: 04/03/17 21:33 Dose: 2 tab Tiotropium [place] (Spiriva -) 1 puff IH DAILY [facility] Last Admin: 04/05/17 10:06 Dose: 1 puff Tramadol HCl (Ultram -) 75 mg PO Q6H PRN PRN Reason: PAIN Last Admin: 04/05/17 09:55 Dose: 75 mg Tramadol HCl (Ultram -) 75 mg PO DAILY [facility] Last Admin: 04/05/17 10:03 Dose: Not Given Warfarin Sodium (Coumadin -) 3 mg PO DAILY@1800 [facility] Last Admin: 04/04/17 17:50 Dose: 3 mg CBC, BMP 04/05/17 06:00 04/05/17 08:25 INR, PTT INR 2.02 (0.82-1.09) H 04/04/17 06:30 ct chest--extensive metastatic disease Problem List - Problems (1) Thrombocytopenia Code(s): D69.6 - THROMBOCYTOPENIA, UNSPECIFIED (2) A-fib Code(s): I48.91 - UNSPECIFIED ATRIAL FIBRILLATION Qualifiers: (3) Anemia Code(s): D64.9 - ANEMIA, UNSPECIFIED (4) Diabetes Code(s): E11.9 - TYPE 2 DIABETES MELLITUS WITHOUT COMPLICATIONS Qualifiers: Diabetes mellitus type: type 2 Diabetes mellitus complication status: without complication (5) Hypoalbuminemia Code(s): E88.09 - OTH DISORDERS OF PLASMA-PROTEIN METABOLISM, NEC (6) Primary cancer of ovary with widespread metastatic disease Code(s): C56.9 - MALIGNANT NEOPLASM OF UNSPECIFIED OVARY; C80.0 - DISSEMINATED MALIGNANT NEOPLASM, UNSPECIFIED
--- NOTE | 2017-04-05 13:54 | PN ---
Mental Health Exam - Mental Status Exam Alert and Oriented to: Time, Place, Person Cognitive Function: Grossly Intact Patient Appearance: Well Groomed Mood: Apathetic Affect: Appropriate, Flat Patient Behavior: Passive Speech Pattern: Clear Voice Loudness: Severely Soft/Quiet Thought Process: Intact, Goal Oriented Thought Disorder: Not Present Hallucinations: None Suicidal Ideation: None Homicidal Ideation: None Insight/Judgement: Good Sleep: Fair Appetite: Fair Muscle strength/Tone: Mild Hypotonicity Gait/Station: Deferred
[2017-04-05] MEDS: SODIUM CHLORIDE 1,000 ML IV SCH (14:13)
[2017-04-05] MEDS: PAZOPANIB 200 MG PO SCH (14:15)
--- NOTE | 2017-04-05 14:59 | PN ---
Progress Note (short form) - Note Progress Note: pt seen/ examined sitting in chair looks little better daughter at bedside dysnea + denies cp. all f/u noted Vital Signs Temp 97.2 F L 04/05/17 14:16 Pulse 98 H 04/05/17 14:16 Resp 20 04/05/17 14:16 BP 107/69 04/05/17 14:16 Pulse Ox 99 04/05/17 09:00 Intake & Output 04/04/17 04/05/17 04/05/17 23:59 11:59 23:59 Intake Total 1565 918 200 Balance 1565 918 200 Intake: IV 1245 581 Normal Saline - 1,000 ml 1245 581 @ 83 mls/hr IV ASDIR [facility] [place] Rx#:[id number] IVPB 100 100 Oral 220 200 Oral Supplement 237 Other: Voiding Method Bedpan Bedpan # Unmeasured Voids Void 2 1 3 Bowel Movement Yes No Yes Active Medications Acetaminophen (Tylenol -) 500 mg PO DAILY [facility] [place] Last Admin: 04/05/17 10:02 Dose: 500 mg Acetaminophen (Tylenol -) 500 mg PO Q6H PRN PRN Reason: FEVER OR PAIN Last Admin: 04/05/17 00:01 Dose: 500 mg Acetylcysteine (Mucomyst 20 Oral / Inh Use Only*) 200 mg NEB QIDR [facility] [place] Last Admin: 04/05/17 11:07 Dose: 200 mg Albuterol Sulfate (Ventolin 0.083% Nebulizer Soln -) 1 amp NEB QIDR [facility] [place] Last Admin: 04/05/17 11:07 Dose: 1 amp Albuterol Sulfate (Ventolin Hfa Inhaler -) 2 puff IH Q4H PRN PRN Reason: SHORT OF BREATH/WHEEZING Last Admin: 04/03/17 21:46 Dose: 2 puff Alprazolam (Xanax -) 0.25 mg PO Q8H PRN Last Admin: 04/03/17 10:55 Dose: 0.25 mg Bupropion HCl (Wellbutrin Xl -) 150 mg PO DAILY [facility] [place] Last Admin: 04/05/17 10:07 Dose: 150 mg Dexamethasone Sodium Phosphate (Decadron Injection -) 4 mg IVPB Q12H [facility] [place] Last Admin: 04/05/17 06:56 Dose: 4 mg Diltiazem HCl (Cardizem Cd -) 300 mg PO DAILY [facility] [place] Last Admin: 04/05/17 10:04 Dose: 300 mg Docusate Sodium (Colace -) 100 mg PO TID [facility] [place] Last Admin: 04/05/17 06:56 Dose: 100 mg Gabapentin (Neurontin -) 100 mg PO TID [facility] [place] Last Admin: 04/05/17 14:16 Dose: Not Given Guaifenesin (Diabetic Tussin Dm -) 10 ml PO Q6H [facility] [place] Last Admin: 04/05/17 11:00 Dose: 10 ml Piperacillin Sod/Tazobactam (Sod 3.375 gm/ Dextrose) 50 mls @ 100 mls/hr IVPB Q8H-IV [facility] PRN Reason: Protocol Last Admin: 04/05/17 09:42 Dose: 100 mls/hr Sodium Chloride (Normal Saline -) 1,000 mls @ 83 mls/hr IV ASDIR [facility] [place] Last Admin: 04/05/17 14:13 Dose: 83 mls/hr Insulin Aspart (Novolog Vial Sliding Scale -) 1 vial SQ ACHS [facility] [place] PRN Reason: Protocol Last Admin: 04/05/17 11:30 Dose: 10 unit Insulin Detemir (Levemir Vial) 10 units SQ [facility] Last Admin: 04/04/17 22:56 Dose: 10 unit Levothyroxine Sodium (Synthroid -) 75 mcg PO DAILY@0700 [facility] [place] Last Admin: 04/05/17 06:55 Dose: 75 mcg Lidocaine (Lidoderm Patch -) 1 patch TP [facility] Last Admin: 04/04/17 23:10 Dose: Not Given Miscellaneous (Lidoderm Patch Removal) 1 each MC DAILY [facility] [place] Last Admin: 04/05/17 10:06 Dose: Not Given Montelukast Sodium (Singulair -) 10 mg PO HS [facility] [place] Last Admin: 04/04/17 23:00 Dose: 10 mg Pazopanib 200 Mg (Tablet) 2 each PO DAILY@1100 [facility] [place] Last Admin: 04/05/17 14:15 Dose: 2 each Nystatin (Nystatin Oral Suspension -) 500,000 units PO Q6HPO [facility] [place] Last Admin: 04/05/17 06:55 Dose: 500,000 units Pantoprazole Sodium (Protonix -) 40 mg PO DAILY [facility] [place] Last Admin: 04/05/17 10:06 Dose: 40 mg Polyethylene Glycol (Miralax (For Daily Use) -) 17 gm PO DAILY [facility] [place] Last Admin: 04/05/17 10:06 Dose: 17 grams Prochlorperazine Maleate (Compazine -) 10 mg PO Q6H PRN PRN Reason: NAUSEA AND/OR VOMITING Senna (Senna -) 2 tab PO HS PRN PRN Reason: CONSTIPATION Last Admin: 04/03/17 21:33 Dose: 2 tab Tiotropium [place] (Spiriva -) 1 puff IH DAILY [facility] [place] Last Admin: 04/05/17 10:06 Dose: 1 puff Tramadol HCl (Ultram -) 75 mg PO Q6H PRN PRN Reason: PAIN Last Admin: 04/05/17 09:55 Dose: 75 mg Tramadol HCl (Ultram -) 75 mg PO DAILY [facility] [place] Last Admin: 04/05/17 10:03 Dose: Not Given Warfarin Sodium (Coumadin -) 3 mg PO DAILY@1800 [facility] [place] Last Admin: 04/04/17 17:50 Dose: 3 mg CBC, BMP 04/05/17 06:00 04/05/17 08:25 ct chest - metastatic disease. Physical Examination Constitutional: Yes: awake/ comfortable.chronic ill appearance. Eyes: Yes: Conjunctiva Clear Neck: Yes: Supple, Trachea Midline. no jvd Cardiovascular: Yes: Pulse Irregular, S1, S2 Respiratory: Yes: diminished at bases.--no wheezes. Gastrointestinal: Yes: Normal Bowel Sounds, Abdomen, Obese. Neurological: Yes: Alert, Oriented x 3 Psychiatric: Yes: Alert, Oriented Ext-Chronic venous stasis of legs Assessment/Plan Metastatic ovarian ca-- advanced Thrombocytopenia paroxysmal afib obesity depression hyponatremia- overall condition same . continue present care abx steroids monitor inr pt is dnr/ di will follow Problem List - Problems (1) Thrombocytopenia Code(s): D69.6 - THROMBOCYTOPENIA, UNSPECIFIED (2) A-fib Code(s): I48.91 - UNSPECIFIED ATRIAL FIBRILLATION Qualifiers: (3) Anemia Code(s): D64.9 - ANEMIA, UNSPECIFIED (4) Diabetes Code(s): E11.9 - TYPE 2 DIABETES MELLITUS WITHOUT COMPLICATIONS Qualifiers: Diabetes mellitus type: type 2 Diabetes mellitus complication status: without complication (5) Hypoalbuminemia Code(s): E88.09 - OTH DISORDERS OF PLASMA-PROTEIN METABOLISM, NEC (6) Primary cancer of ovary with widespread metastatic disease Code(s): C56.9 - MALIGNANT NEOPLASM OF UNSPECIFIED OVARY; C80.0 - DISSEMINATED MALIGNANT NEOPLASM, UNSPECIFIED
[2017-04-05] MEDS: WARFARIN NA 3 MG TABLET PO SCH (17:33)
[2017-04-05] MEDS: MONTELUKAST NA 10 MG TABLET PO SCH (22:04)
[2017-04-05] MEDS: INSULIN DETEMIR 100 UNITS/ML MDV SQ SCH (22:05)
[2017-04-05] MEDS: LIDOCAINE 5% TOPICAL PATCH TP SCH (22:05)
[2017-04-05] MEDS ORDERED: ALBUTEROL SO4 0.5 % INH SOLN 2.5 MG/0.5 ML VIAL.NEB. NEB ONE (23:43)
[2017-04-06] MEDS: NYSTATIN 500,000 UNITS/5 ML SUSPENSION PO SCH ×4 (01:01→17:41)
[2017-04-06] MEDS ORDERED: PT OWN MED DRAWER 7, Y5N ONE ×3 (01:24→16:41)
[2017-04-06] MEDS: PIPERACILLIN/TAZOB 3.375 GM 3.375 GM in DEXTROSE 5%-WATER - 50 ML IVPB SCH ×3 (01:32→17:28)
[2017-04-06] MEDS: traMADol HCL 50 MG TABLET PO PRN ×2 (04:19→22:03)
[2017-04-06] MEDS: guaiFENesin/D-M SUGAR-FREE/ACLHOL-FREE 118 ML BOTTLE PO SCH ×4 (04:20→22:06)
[2017-04-06] MEDS: ACETYLCYSTEINE 20% 200MG/ML 30 ML VIAL *FOR ORAL / INH USE ONLY NEB SCH ×4 (06:09→23:43)
[2017-04-06] MEDS: GABAPENTIN 100 MG CAPSULE (FP) PO SCH ×3 (06:16→22:05)
[2017-04-06] MEDS: INSULIN SLIDING SCALE (NOVOLOG) 1 VIAL SQ SCH ×4 (06:20→22:03)
[2017-04-06] MEDS: DEXAMETHASONE SOD PHOSPHATE 4 MG/1 ML VIAL IVPB SCH ×2 (06:20→17:41)
[2017-04-06] MEDS: DOCUSATE SODIUM 100 MG CAPSULE (FP) PO SCH ×3 (06:20→22:05)
[2017-04-06] MEDS: LEVOTHYROXINE NA 75 MCG TABLET (FP) PO SCH (06:20)
[2017-04-06] MEDS ORDERED: INSULIN (NOVOLOG) ASPART 100 UNITS/ML 10ML VIAL ONE ×2 (07:50→16:40)
--- NOTE | 2017-04-06 08:16 | PN ---
Progress Note (short form) - Note Progress Note: Renal follow up for SURY Pt seen and examined at the bedside awake and alert eating breakfast + SOB but not worsening no fever, chills no pain Vital Signs Temperature 97.2 F L 04/06/17 06:00 Pulse Rate 120 H 04/06/17 06:00 Respiratory Rate 20 04/06/17 06:00 Blood Pressure 124/70 04/06/17 06:00 O2 Sat by Pulse Oximetry (%) 99 04/05/17 21:00 Intake & Output 04/03/17 04/04/17 04/05/17 04/06/17 23:59 23:59 23:59 23:59 Intake Total 3946 1565 2380 781 Balance 3946 1565 2380 781 NAD RRRR dry MM CTA Obese Abd 3+ edema in le CBC, BMP 04/05/17 06:00 04/05/17 08:25 Current Medications Acetaminophen (Tylenol -) 500 mg PO DAILY [facility] Last Admin: 04/05/17 10:02 Dose: 500 mg Acetaminophen (Tylenol -) 500 mg PO Q6H PRN PRN Reason: FEVER OR PAIN Last Admin: 04/05/17 00:01 Dose: 500 mg Acetylcysteine (Mucomyst 20 Oral / Inh Use Only*) 200 mg NEB QIDR [facility] Last Admin: 04/06/17 06:09 Dose: Not Given Albuterol Sulfate (Ventolin Hfa Inhaler -) 2 puff IH Q4H PRN PRN Reason: SHORT OF BREATH/WHEEZING Last Admin: 04/03/17 21:46 Dose: 2 puff Alprazolam (Xanax -) 0.25 mg PO Q8H PRN Last Admin: 04/03/17 10:55 Dose: 0.25 mg Bupropion HCl (Wellbutrin Xl -) 150 mg PO DAILY [facility] Last Admin: 04/05/17 10:07 Dose: 150 mg Dexamethasone Sodium Phosphate (Decadron Injection -) 4 mg IVPB Q12H [facility] Last Admin: 04/06/17 06:20 Dose: 4 mg Diltiazem HCl (Cardizem Cd -) 300 mg PO DAILY [facility] Last Admin: 04/05/17 10:04 Dose: 300 mg Docusate Sodium (Colace -) 100 mg PO TID [facility] Last Admin: 04/06/17 06:20 Dose: 100 mg Gabapentin (Neurontin -) 100 mg PO TID [facility] Last Admin: 04/06/17 06:16 Dose: Not Given Guaifenesin (Diabetic Tussin Dm -) 10 ml PO Q6H [facility] Last Admin: 04/06/17 04:20 Dose: 10 ml Piperacillin Sod/Tazobactam (Sod 3.375 gm/ Dextrose) 50 mls @ 100 mls/hr IVPB Q8H-IV [facility] PRN Reason: Protocol Last Admin: 04/06/17 01:32 Dose: 100 mls/hr Sodium Chloride (Normal Saline -) 1,000 mls @ 83 mls/hr IV ASDIR [facility] Last Admin: 04/05/17 14:13 Dose: 83 mls/hr Insulin Aspart (Novolog Vial Sliding Scale -) 1 vial SQ ACHS [facility] PRN Reason: Protocol Last Admin: 04/06/17 06:20 Dose: 2 unit Insulin Detemir (Levemir Vial) 10 units SQ HS [facility] Last Admin: 04/05/17 22:05 Dose: 10 unit Levothyroxine Sodium (Synthroid -) 75 mcg PO DAILY@0700 [facility] Last Admin: 04/06/17 06:20 Dose: 75 mcg Lidocaine (Lidoderm Patch -) 1 patch TP [facility] Last Admin: 04/05/17 22:05 Dose: Not Given Miscellaneous (Lidoderm Patch Removal) 1 each MC DAILY [facility] Last Admin: 04/05/17 10:06 Dose: Not Given Montelukast Sodium (Singulair -) 10 mg PO HS [facility] Last Admin: 04/05/17 22:04 Dose: 10 mg Pazopanib 200 Mg (Tablet) 2 each PO DAILY@1100 [facility] Last Admin: 04/05/17 14:15 Dose: 2 each Nystatin (Nystatin Oral Suspension -) 500,000 units PO Q6HPO [facility] Last Admin: 04/06/17 06:20 Dose: 500,000 units Pantoprazole Sodium (Protonix -) 40 mg PO DAILY [facility] Last Admin: 04/05/17 10:06 Dose: 40 mg Polyethylene Glycol (Miralax (For Daily Use) -) 17 gm PO DAILY [facility] Last Admin: 04/05/17 10:06 Dose: 17 grams Prochlorperazine Maleate (Compazine -) 10 mg PO Q6H PRN PRN Reason: NAUSEA AND/OR VOMITING Senna (Senna -) 2 tab PO HS PRN PRN Reason: CONSTIPATION Last Admin: 04/03/17 21:33 Dose: 2 tab Tiotropium [place] (Spiriva -) 1 puff IH DAILY [facility] Last Admin: 04/05/17 10:06 Dose: 1 puff Tramadol HCl (Ultram -) 75 mg PO Q6H PRN PRN Reason: PAIN Last Admin: 04/06/17 04:19 Dose: 75 mg Tramadol HCl (Ultram -) 75 mg PO DAILY [facility] Last Admin: 04/05/17 10:03 Dose: Not Given Warfarin Sodium (Coumadin -) 3 mg PO DAILY@1800 [facility] Last Admin: 04/05/17 17:33 Dose: 3 mg 61 year old woman with PMhx of Metastatic Ovarian Ca (lung, Liver) on Chemo, Hypertension, DM Type 2, Chronic Lymphedema, Obesity presented with thrombocytopenia and found to have hyponatremia. #Acute Renal Insufficiency in setting of diuretics todays labs pending, will follow continue IVF, can plan to taper down as PO intake improves avoid IV contrast, NSAIDS, MELISSA/ARB at this time #Hyperkalemia improved trend daily #Hyponatremia todays labs pending on isotonic saline #PNA on Zosyn #Metastatic ovarian Ca supportive care Mirza Zuleta DO
[2017-04-06 08:22] LABS: HEMATOCRIT 32.9 % (32.4-45.2); HEMOGLOBIN 10.6 GM/dL (10.7-15.3); MCH 32.3 pg (25.7-33.7); MCHC 32.2 g/dl (32.0-36.0); MEAN CELL VOLUME 100.3 fl (80-96); MEAN PLT VOLUME 9.2 fl (7.5-11.1); PLATELET COUNT 211 K/MM3 (134-434); RBC 3.28 M/mm3 (3.60-5.2); RDW 24.9 % (11.6-15.6); WHITE BLOOD COUNT 13.6 K/mm3 (4.0-10.0)
[2017-04-06 08:29] LABS: ANION GAP 8 (8-16); BLOOD UREA NITROGEN 25 mg/dL (7-18); CALCIUM 8.4 mg/dL (8.5-10.1); CHLORIDE 99 mmol/L (98-107); CO2 25 mmol/L (21-32); CREATININE 1.1 mg/dL (0.55-1.02); GLUCOSE,RANDOM 119 mg/dL (74-106); POTASSIUM 4.8 mmol/L (3.5-5.1); SODIUM 132 mmol/L (136-145)
[2017-04-06 08:30] LABS: INR 3.01 (0.82-1.09)
--- NOTE | 2017-04-06 09:39 | PN ---
Progress Note (short form) - Note Progress Note: Patient seen and examined feels weak overall doing ok Vital Signs Period Temp Pulse Resp BP Sys/Dinero Pulse Ox Last 24 Hr 97.1 F-98.2 F 100-107 18-22 102-134/48-60 100 Her daughter si also there appears weak CBC, BMP 04/06/17 08:00 04/06/17 08:00 Active Medications Generic Name Dose Route Start Last Admin Trade Name Freq PRN Reason Stop Dose Admin Acetaminophen 500 mg 04/02/17 10:00 04/05/17 10:02 Tylenol - PO 500 mg DAILY [facility] Administration Acetaminophen 500 mg 04/04/17 23:28 04/05/17 00:01 Tylenol - PO 500 mg Q6H PRN Administration FEVER OR PAIN Acetylcysteine 200 mg 04/01/17 14:30 04/06/17 06:09 Mucomyst 20 Oral / Inh Use Only* NEB Not Given QIDR [facility] Albuterol Sulfate 2 puff 04/02/17 14:49 04/03/17 21:46 Ventolin Hfa Inhaler - IH 2 puff Q4H PRN Administration SHORT OF BREATH/WHEEZING Alprazolam 0.25 mg 04/03/17 10:18 04/03/17 10:55 Xanax - PO 0.25 mg Q8H PRN Administration Bupropion HCl 150 mg 03/23/17 10:00 04/05/17 10:07 Wellbutrin Xl - PO 150 mg DAILY [facility] Administration Dexamethasone Sodium Phosphate 4 mg 04/03/17 18:00 04/06/17 06:20 Decadron Injection - IVPB 4 mg Q12H [facility] Administration Diltiazem HCl 300 mg 03/23/17 10:00 04/05/17 10:04 Cardizem Cd - PO 300 mg DAILY [facility] Administration Docusate Sodium 100 mg 03/26/17 22:00 04/06/17 06:20 Colace - PO 100 mg TID [facility] Administration Gabapentin 100 mg 03/29/17 22:00 04/06/17 06:16 Neurontin - PO Not Given TID [facility] Guaifenesin 10 ml 03/30/17 17:00 04/06/17 04:20 Diabetic Tussin Dm - PO 10 ml Q6H [facility] Administration Piperacillin Sod/Tazobactam 50 mls @ 100 mls/hr 04/02/17 18:00 04/06/17 01:32 Sod 3.375 gm/ Dextrose IVPB 100 mls/hr Q8H-IV [facility] Administration Protocol Sodium Chloride 1,000 mls @ 83 mls/hr 04/03/17 11:28 04/05/17 14:13 Normal Saline - IV 83 mls/hr ASDIR [facility] Administration Insulin Aspart 1 vial 03/24/17 18:16 04/06/17 06:20 Novolog Vial Sliding Scale - SQ 2 unit ACHS [facility] Administration Protocol Insulin Detemir 10 units 04/04/17 22:00 04/05/17 22:05 Levemir Vial SQ 10 unit HS [facility] Administration Levothyroxine Sodium 75 mcg 03/23/17 07:00 04/06/17 06:20 Synthroid - PO 75 mcg DAILY@0700 [facility] Administration Lidocaine 1 patch 03/25/17 00:15 04/05/17 22:05 Lidoderm Patch - TP Not Given HS [facility] Miscellaneous 1 each 03/25/17 10:00 04/05/17 10:06 Lidoderm Patch Removal MC Not Given DAILY [facility] Montelukast Sodium 10 mg 03/22/17 22:00 04/05/17 22:04 Singulair - PO 10 mg HS [facility] Administration Pazopanib 200 Mg 2 each 04/05/17 11:00 04/05/17 14:15 Tablet PO 2 each DAILY@1100 [facility] Administration Nystatin 500,000 units 04/04/17 00:00 04/06/17 06:20 Nystatin Oral Suspension - PO 500,000 units Q6HPO [facility] Administration Pantoprazole Sodium 40 mg 04/03/17 10:00 04/05/17 10:06 Protonix - PO 40 mg DAILY [facility] Administration Polyethylene Glycol 17 gm 03/23/17 10:00 04/05/17 10:06 Miralax (For Daily Use) - PO 17 grams DAILY [facility] Administration Prochlorperazine Maleate 10 mg 04/05/17 10:08 Compazine - PO Q6H PRN NAUSEA AND/OR VOMITING Senna 2 tab 03/22/17 18:13 04/03/17 21:33 Senna - PO 2 tab HS PRN Administration CONSTIPATION Tiotropium [place] 1 puff 03/23/17 10:00 04/05/17 10:06 Spiriva - IH 1 puff DAILY [facility] Administration Tramadol HCl 75 mg 03/28/17 22:59 04/06/17 04:19 Ultram - PO 75 mg Q6H PRN Administration PAIN Tramadol HCl 75 mg 04/02/17 10:00 04/05/17 10:03 Ultram - PO Not Given DAILY [facility] Warfarin Sodium 3 mg 03/29/17 18:00 04/05/17 17:33 Coumadin - PO 3 mg DAILY@1800 [facility] Administration A/P 61 y/o patient with metastatic high grade mullerian cancer on gemzar overall stable on pazopanib 400 gm po q day continue to follow she looks exhausted
[2017-04-06] MEDS: TIOTROPIUM BROMIDE 18 MCG/INH (DEVICE W/ 5 CAPSULES) IH SCH (10:12)
[2017-04-06] MEDS: traMADol HCL 50 MG TABLET PO SCH (10:22)
[2017-04-06] MEDS: ACETAMINOPHEN 500 MG TABLET (FP) PO SCH (10:24)
[2017-04-06] MEDS: PANTOPRAZOLE 40 MG TABLET (FP) PO SCH (10:24)
[2017-04-06] MEDS: LIDOCAINE PATCH REMOVAL MC SCH (10:25)
[2017-04-06] MEDS: POLYETHYLENE GLYCOL 3350 119 GM BTL PO SCH (10:26)
[2017-04-06] MEDS: PAZOPANIB 200 MG PO SCH (10:27)
--- NOTE | 2017-04-06 10:57 | PN ---
Progress Note (short form) - Note Progress Note: overall condition same weak/ frail no distress though pulse ox 98 percent on 2 L daughter at bedside. Vital Signs Temp 97.2 F L 04/06/17 06:00 Pulse 120 H 04/06/17 06:00 Resp 20 04/06/17 06:00 BP 124/70 04/06/17 06:00 Pulse Ox 99 04/05/17 21:00 Intake & Output 04/05/17 04/05/17 04/06/17 11:59 23:59 11:59 Intake Total 918 1462 781 Balance 918 1462 781 Intake: IV 581 1162 581 Normal Saline - 1,000 ml 581 1162 581 @ 83 mls/hr IV ASDIR [facility] Rx#:[id number] IVPB 100 100 100 Oral 200 100 Oral Supplement 237 Other: Voiding Method Bedpan Bedpan Bedpan # Unmeasured Voids Void 1 1 Bowel Movement No Yes Yes # Bowel Movements 1 Active Medications Acetaminophen (Tylenol -) 500 mg PO DAILY [facility] Last Admin: 04/06/17 10:24 Dose: 500 mg Acetaminophen (Tylenol -) 500 mg PO Q6H PRN PRN Reason: FEVER OR PAIN Last Admin: 04/05/17 00:01 Dose: 500 mg Acetylcysteine (Mucomyst 20 Oral / Inh Use Only*) 200 mg NEB QIDR [facility] Last Admin: 04/06/17 06:09 Dose: Not Given Albuterol Sulfate (Ventolin Hfa Inhaler -) 2 puff IH Q4H PRN PRN Reason: SHORT OF BREATH/WHEEZING Last Admin: 04/03/17 21:46 Dose: 2 puff Bupropion HCl (Wellbutrin Xl -) 150 mg PO DAILY [facility] Last Admin: 04/06/17 10:26 Dose: 150 mg Dexamethasone Sodium Phosphate (Decadron Injection -) 4 mg IVPB Q12H [facility] Last Admin: 04/06/17 06:20 Dose: 4 mg Diltiazem HCl (Cardizem Cd -) 300 mg PO DAILY [facility] Last Admin: 04/06/17 10:25 Dose: 300 mg Docusate Sodium (Colace -) 100 mg PO TID [facility] Last Admin: 04/06/17 06:20 Dose: 100 mg Gabapentin (Neurontin -) 100 mg PO TID [facility] Last Admin: 04/06/17 06:16 Dose: Not Given Guaifenesin (Diabetic Tussin Dm -) 10 ml PO Q6H [facility] Last Admin: 04/06/17 10:24 Dose: 10 ml Piperacillin Sod/Tazobactam (Sod 3.375 gm/ Dextrose) 50 mls @ 100 mls/hr IVPB Q8H-IV [facility] PRN Reason: Protocol Last Admin: 04/06/17 01:32 Dose: 100 mls/hr Sodium Chloride (Normal Saline -) 1,000 mls @ 83 mls/hr IV ASDIR [facility] Last Admin: 04/05/17 14:13 Dose: 83 mls/hr Insulin Aspart (Novolog Vial Sliding Scale -) 1 vial SQ ACHS [facility] PRN Reason: Protocol Last Admin: 04/06/17 06:20 Dose: 2 unit Insulin Detemir (Levemir Vial) 10 units SQ HS [facility] Last Admin: 04/05/17 22:05 Dose: 10 unit Levothyroxine Sodium (Synthroid -) 75 mcg PO DAILY@0700 [facility] Last Admin: 04/06/17 06:20 Dose: 75 mcg Lidocaine (Lidoderm Patch -) 1 patch TP [facility] Last Admin: 04/05/17 22:05 Dose: Not Given Miscellaneous (Lidoderm Patch Removal) 1 each MC DAILY [facility] Last Admin: 04/06/17 10:25 Dose: Not Given Montelukast Sodium (Singulair -) 10 mg PO HS [facility] Last Admin: 04/05/17 22:04 Dose: 10 mg Pazopanib 200 Mg (Tablet) 2 each PO DAILY@1100 [facility] Last Admin: 04/06/17 10:27 Dose: 2 each Nystatin (Nystatin Oral Suspension -) 500,000 units PO Q6HPO [facility] Last Admin: 04/06/17 06:20 Dose: 500,000 units Pantoprazole Sodium (Protonix -) 40 mg PO DAILY [facility] Last Admin: 04/06/17 10:24 Dose: 40 mg Polyethylene Glycol (Miralax (For Daily Use) -) 17 gm PO DAILY [facility] Last Admin: 04/06/17 10:26 Dose: 17 grams Prochlorperazine Maleate (Compazine -) 10 mg PO Q6H PRN PRN Reason: NAUSEA AND/OR VOMITING Senna (Senna -) 2 tab PO HS PRN PRN Reason: CONSTIPATION Last Admin: 04/03/17 21:33 Dose: 2 tab Tiotropium [place] (Spiriva -) 1 puff IH DAILY [facility] Last Admin: 04/05/17 10:06 Dose: 1 puff Tramadol HCl (Ultram -) 75 mg PO Q6H PRN PRN Reason: PAIN Last Admin: 04/06/17 04:19 Dose: 75 mg Tramadol HCl (Ultram -) 75 mg PO DAILY [facility] Last Admin: 04/06/17 10:22 Dose: 75 mg Warfarin Sodium (Coumadin -) 3 mg PO DAILY@1800 [facility] Last Admin: 04/05/17 17:33 Dose: 3 mg CBC, BMP 04/06/17 08:00 04/06/17 08:00 INR, PTT INR 3.01 (0.82-1.09) H D 04/06/17 06:00 Physical Examination Constitutional: Yes: .chronic ill appearance. obese. Eyes: Yes: Conjunctiva Clear Neck: Yes: Supple, Trachea Midline. no jvd Cardiovascular: Yes: Pulse Irregular, S1, S2 Respiratory: Yes: diminished at bases.--no wheezes. Gastrointestinal: Yes: Normal Bowel Sounds, Abdomen, Obese. Neurological: Yes: Alert, Oriented x 3 Psychiatric: Yes: Alert, Oriented Ext-Chronic venous stasis of legs Assessment/Plan Metastatic ovarian ca-- advanced with lungs to mets Thrombocytopenia paroxysmal afib obesity depression hyponatremia- overall condition same . continue present care abx steroids monitor inr- hold coumadin today pt is dnr/ di prognosis poor. palliative care will follow Problem List - Problems (1) Thrombocytopenia Code(s): D69.6 - THROMBOCYTOPENIA, UNSPECIFIED (2) A-fib Code(s): I48.91 - UNSPECIFIED ATRIAL FIBRILLATION Qualifiers: (3) Anemia Code(s): D64.9 - ANEMIA, UNSPECIFIED (4) Diabetes Code(s): E11.9 - TYPE 2 DIABETES MELLITUS WITHOUT COMPLICATIONS Qualifiers: Diabetes mellitus type: type 2 Diabetes mellitus complication status: without complication (5) Hypoalbuminemia Code(s): E88.09 - OTH DISORDERS OF PLASMA-PROTEIN METABOLISM, NEC (6) Primary cancer of ovary with widespread metastatic disease Code(s): C56.9 - MALIGNANT NEOPLASM OF UNSPECIFIED OVARY; C80.0 - DISSEMINATED MALIGNANT NEOPLASM, UNSPECIFIED
--- NOTE | 2017-04-06 11:51 | PN ---
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
[2017-04-06] MEDS: SODIUM CHLORIDE 1,000 ML IV SCH (14:24)
[2017-04-06] MEDS: ACETAMINOPHEN 500 MG TABLET (FP) PO PRN (20:50)
[2017-04-06] MEDS: INSULIN DETEMIR 100 UNITS/ML MDV SQ SCH (22:05)
[2017-04-06] MEDS: MONTELUKAST NA 10 MG TABLET PO SCH (22:05)
[2017-04-06] MEDS: LIDOCAINE 5% TOPICAL PATCH TP SCH (22:07)
[2017-04-07] MEDS: NYSTATIN 500,000 UNITS/5 ML SUSPENSION PO SCH ×4 (01:25→17:44)
[2017-04-07] MEDS: PIPERACILLIN/TAZOB 3.375 GM 3.375 GM in DEXTROSE 5%-WATER - 50 ML IVPB SCH ×2 (01:40→10:25)
[2017-04-07] MEDS: traMADol HCL 50 MG TABLET PO PRN (04:04)
[2017-04-07] MEDS: guaiFENesin/D-M SUGAR-FREE/ACLHOL-FREE 118 ML BOTTLE PO SCH ×4 (05:51→17:44)
[2017-04-07] MEDS: ACETYLCYSTEINE 20% 200MG/ML 30 ML VIAL *FOR ORAL / INH USE ONLY NEB SCH ×3 (06:40→17:19)
[2017-04-07] MEDS: DOCUSATE SODIUM 100 MG CAPSULE (FP) PO SCH ×3 (06:51→22:06)
[2017-04-07] MEDS: GABAPENTIN 100 MG CAPSULE (FP) PO SCH ×3 (06:51→22:11)
[2017-04-07] MEDS: DEXAMETHASONE SOD PHOSPHATE 4 MG/1 ML VIAL IVPB SCH ×2 (06:52→17:44)
[2017-04-07] MEDS: INSULIN SLIDING SCALE (NOVOLOG) 1 VIAL SQ SCH ×4 (06:53→22:11)
[2017-04-07] MEDS: LEVOTHYROXINE NA 75 MCG TABLET (FP) PO SCH (06:56)
--- NOTE | 2017-04-07 08:20 | PN ---
Progress Note (short form) - Note Progress Note: patient seen and examined. Overall condition same No distress But looks weak/ Afebrile Vital Signs Temp 97.4 F L 04/07/17 05:47 Pulse 104 H 04/07/17 05:47 Resp 20 04/07/17 05:47 BP 123/72 04/07/17 05:47 Pulse Ox 99 04/06/17 21:00 Intake & Output 04/06/17 04/06/17 04/07/17 11:59 23:59 11:59 Intake Total 781 2289 615 Balance 781 2289 615 Intake: IV 581 1245 415 Normal Saline - 1,000 ml 581 @ 83 mls/hr IV ASDIR [facility] Rx#:[id number] s/l 1245 415 IVPB 100 200 Oral 100 400 200 Oral Supplement 237 Platelets 207 Other: Voiding Method Bedpan Bedpan Bedpan # Unmeasured Voids Void 2 2 Bowel Movement Yes Yes Yes: big # Bowel Movements 1 1 1 Active Medications Acetaminophen (Tylenol -) 500 mg PO DAILY [facility] Last Admin: 04/06/17 10:24 Dose: 500 mg Acetaminophen (Tylenol -) 500 mg PO Q6H PRN PRN Reason: FEVER OR PAIN Last Admin: 04/06/17 20:50 Dose: 500 mg Acetylcysteine (Mucomyst 20 Oral / Inh Use Only*) 200 mg NEB QIDR [facility] Last Admin: 04/07/17 06:40 Dose: Not Given Albuterol Sulfate (Ventolin Hfa Inhaler -) 2 puff IH Q4H PRN PRN Reason: SHORT OF BREATH/WHEEZING Last Admin: 04/03/17 21:46 Dose: 2 puff Bupropion HCl (Wellbutrin Xl -) 150 mg PO DAILY [facility] Last Admin: 04/06/17 10:26 Dose: 150 mg Dexamethasone Sodium Phosphate (Decadron Injection -) 4 mg IVPB Q12H [facility] Last Admin: 04/07/17 06:52 Dose: 4 mg Diltiazem HCl (Cardizem Cd -) 300 mg PO DAILY [facility] Last Admin: 04/06/17 10:25 Dose: 300 mg Docusate Sodium (Colace -) 100 mg PO TID [facility] Last Admin: 04/07/17 06:51 Dose: 100 mg Gabapentin (Neurontin -) 100 mg PO TID [facility] Last Admin: 04/07/17 06:51 Dose: Not Given Guaifenesin (Diabetic Tussin Dm -) 10 ml PO Q6H [facility] Last Admin: 04/07/17 05:52 Dose: 10 ml Piperacillin Sod/Tazobactam (Sod 3.375 gm/ Dextrose) 50 mls @ 100 mls/hr IVPB Q8H-IV [facility] PRN Reason: Protocol Last Admin: 04/07/17 01:40 Dose: 100 mls/hr Sodium Chloride (Normal Saline -) 1,000 mls @ 83 mls/hr IV ASDIR [facility] Last Admin: 04/06/17 14:24 Dose: 83 mls/hr Insulin Aspart (Novolog Vial Sliding Scale -) 1 vial SQ ACHS [facility] PRN Reason: Protocol Last Admin: 04/07/17 06:53 Dose: Not Given Insulin Detemir (Levemir Vial) 10 units SQ HS [facility] Last Admin: 04/06/17 22:05 Dose: 10 unit Levothyroxine Sodium (Synthroid -) 75 mcg PO DAILY@0700 [facility] Last Admin: 04/07/17 06:56 Dose: 75 mcg Lidocaine (Lidoderm Patch -) 1 patch TP [facility] Last Admin: 04/06/17 22:07 Dose: 1 patch Miscellaneous (Lidoderm Patch Removal) 1 each MC DAILY [facility] Last Admin: 04/06/17 10:25 Dose: Not Given Montelukast Sodium (Singulair -) 10 mg PO HS [facility] Last Admin: 04/06/17 22:05 Dose: 10 mg Pazopanib 200 Mg (Tablet) 2 each PO DAILY@1100 [facility] Last Admin: 04/06/17 10:27 Dose: 2 each Nystatin (Nystatin Oral Suspension -) 500,000 units PO Q6HPO [facility] Last Admin: 04/07/17 06:51 Dose: 500,000 units Pantoprazole Sodium (Protonix -) 40 mg PO DAILY [facility] Last Admin: 04/06/17 10:24 Dose: 40 mg Polyethylene Glycol (Miralax (For Daily Use) -) 17 gm PO DAILY [facility] Last Admin: 04/06/17 10:26 Dose: 17 grams Prochlorperazine Maleate (Compazine -) 10 mg PO Q6H PRN PRN Reason: NAUSEA AND/OR VOMITING Senna (Senna -) 2 tab PO HS PRN PRN Reason: CONSTIPATION Last Admin: 04/03/17 21:33 Dose: 2 tab Tiotropium [place] (Spiriva -) 1 puff IH DAILY [facility] Last Admin: 04/06/17 10:12 Dose: 1 puff Tramadol HCl (Ultram -) 75 mg PO Q6H PRN PRN Reason: PAIN Last Admin: 04/07/17 04:04 Dose: 75 mg Tramadol HCl (Ultram -) 75 mg PO DAILY [facility] Last Admin: 04/06/17 10:22 Dose: 75 mg Warfarin Sodium (Coumadin -) 3 mg PO DAILY@1800 [facility] Last Admin: 04/05/17 17:33 Dose: 3 mg CBC, BMP 04/06/17 08:00 04/06/17 08:00 inr - pending Physical Examination Constitutional: Yes: .chronic ill appearance. obese. Eyes: Yes: Conjunctiva Clear Neck: Yes: Supple, Trachea Midline. no jvd Cardiovascular: Yes: Pulse Irregular, S1, S2 Respiratory: Yes: diminished at bases.--no wheezes. Gastrointestinal: Yes: Normal Bowel Sounds, Abdomen, Obese. Neurological: Yes: Alert, Oriented x 3 Psychiatric: Yes: Alert, Oriented Ext-Chronic venous stasis of legs Assessment/Plan Metastatic ovarian ca-- advanced with lungs to mets Thrombocytopenia paroxysmal afib obesity depression hyponatremia- overall condition same . continue present care abx--Discontinue? steroids monitor inr- pt is dnr/ di prognosis poor. palliative care will follow. Problem List - Problems (1) Thrombocytopenia Code(s): D69.6 - THROMBOCYTOPENIA, UNSPECIFIED (2) A-fib Code(s): I48.91 - UNSPECIFIED ATRIAL FIBRILLATION Qualifiers: (3) Anemia Code(s): D64.9 - ANEMIA, UNSPECIFIED (4) Diabetes Code(s): E11.9 - TYPE 2 DIABETES MELLITUS WITHOUT COMPLICATIONS Qualifiers: Diabetes mellitus type: type 2 Diabetes mellitus complication status: without complication (5) Hypoalbuminemia Code(s): E88.09 - OTH DISORDERS OF PLASMA-PROTEIN METABOLISM, NEC (6) Primary cancer of ovary with widespread metastatic disease Code(s): C56.9 - MALIGNANT NEOPLASM OF UNSPECIFIED OVARY; C80.0 - DISSEMINATED MALIGNANT NEOPLASM, UNSPECIFIED
[2017-04-07 08:31] LABS: INR 3.5 (0.82-1.09); PROTHROMBIN TIME (PATIENT) 39.5 SEC (9.98-11.88)
[2017-04-07] MEDS: PANTOPRAZOLE 40 MG TABLET (FP) PO SCH (10:21)
[2017-04-07] MEDS: traMADol HCL 50 MG TABLET PO SCH ×2 (10:22→21:57)
[2017-04-07] MEDS: ACETAMINOPHEN 500 MG TABLET (FP) PO SCH (10:24)
[2017-04-07] MEDS: LIDOCAINE PATCH REMOVAL MC SCH (10:25)
[2017-04-07] MEDS: POLYETHYLENE GLYCOL 3350 119 GM BTL PO SCH (10:25)
[2017-04-07] MEDS ORDERED: PT OWN MED DRAWER 7, Y5N ONE (10:46)
[2017-04-07] MEDS: ALBUTEROL SO4 2.5/IPRATROPIUM 0.5 INH SOL 3 ML VIAL.NEB. NEB PRN ×2 (10:55→23:29)
[2017-04-07] MEDS: TIOTROPIUM BROMIDE 18 MCG/INH (DEVICE W/ 5 CAPSULES) IH SCH (10:56)
[2017-04-07] MEDS: PAZOPANIB 200 MG PO SCH (10:57)
[2017-04-07] MEDS ORDERED: INSULIN (NOVOLOG) ASPART 100 UNITS/ML 10ML VIAL ONE (11:18)
[2017-04-07 11:20] LABS: HEMATOCRIT 31.6 % (32.4-45.2); HEMOGLOBIN 10.2 GM/dL (10.7-15.3); MCH 32.4 pg (25.7-33.7); MCHC 32.3 g/dl (32.0-36.0); MEAN CELL VOLUME 100.3 fl (80-96); MEAN PLT VOLUME 9.4 fl (7.5-11.1); PLATELET COUNT 187 K/MM3 (134-434); RBC 3.15 M/mm3 (3.60-5.2); RDW 24.6 % (11.6-15.6); WHITE BLOOD COUNT 14.3 K/mm3 (4.0-10.0)
--- NOTE | 2017-04-07 11:33 | PN ---
Progress Note (short form) - Note Progress Note: Resting in NAD. No acute events overnight. No reported hemoptysis. Intake & Output 04/04/17 04/05/17 04/06/17 04/07/17 23:59 23:59 23:59 23:59 Intake Total 1565 2380 3070 615 Balance 1565 2380 3070 615 Last Vital Signs Temp Pulse Resp BP Pulse Ox 97.4 F L 99 H 20 123/72 95 04/07/17 05:47 04/07/17 10:54 04/07/17 05:47 04/07/17 05:47 04/07/17 10:54 Active Medications Acetaminophen (Tylenol -) 500 mg PO DAILY [facility] Last Admin: 04/07/17 10:24 Dose: 500 mg Acetaminophen (Tylenol -) 500 mg PO Q6H PRN PRN Reason: FEVER OR PAIN Last Admin: 04/06/17 20:50 Dose: 500 mg Acetylcysteine (Mucomyst 20 Oral / Inh Use Only*) 200 mg NEB QIDR [facility] Last Admin: 04/07/17 06:40 Dose: Not Given Albuterol Sulfate (Ventolin Hfa Inhaler -) 2 puff IH Q4H PRN PRN Reason: SHORT OF BREATH/WHEEZING Last Admin: 04/03/17 21:46 Dose: 2 puff Albuterol/Ipratropium (Duoneb -) 1 amp NEB Q4H PRN PRN Reason: SHORTNESS OF BREATH Last Admin: 04/07/17 10:55 Dose: 1 amp Bupropion HCl (Wellbutrin Xl -) 150 mg PO DAILY [facility] Last Admin: 04/07/17 10:22 Dose: 150 mg Dexamethasone Sodium Phosphate (Decadron Injection -) 4 mg IVPB Q12H [facility] Last Admin: 04/07/17 06:52 Dose: 4 mg Diltiazem HCl (Cardizem Cd -) 300 mg PO DAILY [facility] Last Admin: 04/07/17 10:22 Dose: 300 mg Docusate Sodium (Colace -) 100 mg PO TID [facility] Last Admin: 04/07/17 06:51 Dose: 100 mg Gabapentin (Neurontin -) 100 mg PO TID [facility] Last Admin: 04/07/17 06:51 Dose: Not Given Guaifenesin (Diabetic Tussin Dm -) 10 ml PO Q6H [facility] Last Admin: 12/18/17 10:57 Dose: 10 ml Piperacillin Sod/Tazobactam (Sod 3.375 gm/ Dextrose) 50 mls @ 100 mls/hr IVPB Q8H-IV [facility]IRG[facility]IO PRN Reason: Protocol Last Admin: 04/07/17 10:25 Dose: 100 mls/hr Sodium Chloride (Normal Saline -) 1,000 mls @ 83 mls/hr IV ASDIR [facility] Last Admin: 04/06/17 14:24 Dose: 83 mls/hr Insulin Aspart (Novolog Vial Sliding Scale -) 1 vial SQ ACHS [facility] PRN Reason: Protocol Last Admin: 04/07/17 06:53 Dose: Not Given Insulin Detemir (Levemir Vial) 10 units SQ HS [facility] Last Admin: 04/06/17 22:05 Dose: 10 unit Levothyroxine Sodium (Synthroid -) 75 mcg PO DAILY@0700 [facility] Last Admin: 04/07/17 06:56 Dose: 75 mcg Lidocaine (Lidoderm Patch -) 1 patch TP HS [facility] Last Admin: 04/06/17 22:07 Dose: 1 patch Miscellaneous (Lidoderm Patch Removal) 1 each MC DAILY [facility] Last Admin: 04/07/17 10:25 Dose: Not Given Montelukast Sodium (Singulair -) 10 mg PO HS [facility] Last Admin: 04/06/17 22:05 Dose: 10 mg Pazopanib 200 Mg (Tablet) 2 each PO DAILY@1100 [facility] Last Admin: 04/07/17 10:57 Dose: 2 each Nystatin (Nystatin Oral Suspension -) 500,000 units PO Q6HPO [facility] Last Admin: 04/07/17 06:51 Dose: 500,000 units Pantoprazole Sodium (Protonix -) 40 mg PO DAILY [facility] Last Admin: 04/07/17 10:21 Dose: 40 mg Polyethylene Glycol (Miralax (For Daily Use) -) 17 gm PO DAILY [facility] Last Admin: 04/07/17 10:25 Dose: Not Given Prochlorperazine Maleate (Compazine -) 10 mg PO Q6H PRN PRN Reason: NAUSEA AND/OR VOMITING Senna (Senna -) 2 tab PO HS PRN PRN Reason: CONSTIPATION Last Admin: 04/03/17 21:33 Dose: 2 tab Tiotropium [place] (Spiriva -) 1 puff IH DAILY [facility] Last Admin: 04/07/17 10:56 Dose: 1 puff Tramadol HCl (Ultram -) 75 mg PO Q6H PRN PRN Reason: PAIN Last Admin: 04/07/17 04:04 Dose: 75 mg Tramadol HCl (Ultram -) 75 mg PO DAILY [facility] Last Admin: 04/07/17 10:22 Dose: 75 mg Warfarin Sodium (Coumadin -) 3 mg PO DAILY@1800 [facility] Last Admin: 04/05/17 17:33 Dose: 3 mg Constitutional: Yes: Anxious, Obese Eyes: Yes: WNL HENT: Yes: WNL Neck: Yes: Supple Cardiovascular: Yes: Tachycardia, Pulse Irregular, S1 (varies in intensity), S2 Respiratory: Yes: Diminished Gastrointestinal: Yes: Soft, Abdomen, Obese ...Rectal Exam: Yes: Deferred Genitourinary: No: Anuria Musculoskeletal: Yes: Joint Stiffness, Joint Swelling, Muscle Weakness Extremities: Yes: Cool Edema: Yes Edema: LLE: 3+, RLE: 3+ Peripheral Pulses WNL: No Peripheral Pulses: Left Doralis Pedis: 1+, Right Dorsalis Pedis: 1+ Integumentary: Yes: Venous Stasis Changes, Other Neurological: Yes: Alert, Oriented, Unsteady Gait, Weakness Psychiatric: Yes: Other Lab Laboratory Results - last 24 hr 04/06/17 04/06/17 04/06/17 11:21 16:32 22:01 WBC RBC Hgb Hct MCV MCH MCHC RDW Plt Count MPV Neutrophils % Lymphocytes % PT with INR INR POC Glucometer 137 167 181 04/07/17 04/07/17 04/07/17 06:30 06:50 10:35 WBC 14.3 H RBC 3.15 L Hgb 10.2 L Hct 31.6 L MCV 100.3 H MCH 32.4 MCHC 32.3 RDW 24.6 H Plt Count 187 MPV 9.4 Neutrophils % No Result Required. Lymphocytes % No Result Required. PT with INR 39.50 H INR 3.50 H POC Glucometer 140 04/07/17 11:00 WBC RBC Hgb Hct MCV MCH MCHC RDW Plt Count MPV Neutrophils % Lymphocytes % PT with INR INR POC Glucometer 158 Problem List - Problems (1) Anxiety Code(s): F41.9 - ANXIETY DISORDER, UNSPECIFIED (2) Hypothyroidism Code(s): E03.9 - HYPOTHYROIDISM, UNSPECIFIED (3) PAF (paroxysmal atrial fibrillation) Code(s): I48.0 - PAROXYSMAL ATRIAL FIBRILLATION (4) Thrombocytopenia Code(s): D69.6 - THROMBOCYTOPENIA, UNSPECIFIED (5) A-fib Code(s): I48.91 - UNSPECIFIED ATRIAL FIBRILLATION Qualifiers: (6) Acute dyspnea Code(s): R06.00 - DYSPNEA, UNSPECIFIED (7) Acute renal insufficiency Code(s): N28.9 - DISORDER OF KIDNEY AND URETER, UNSPECIFIED (8) Anemia Code(s): D64.9 - ANEMIA, UNSPECIFIED (9) Cancer of ovary Code(s): C56.9 - MALIGNANT NEOPLASM OF UNSPECIFIED OVARY Qualifiers: (10) Diabetes Code(s): E11.9 - TYPE 2 DIABETES MELLITUS WITHOUT COMPLICATIONS Qualifiers: Diabetes mellitus type: type 2 Diabetes mellitus complication status: without complication (11) HTN (hypertension) Code(s): I10 - ESSENTIAL (PRIMARY) HYPERTENSION Qualifiers: (12) Morbidly obese Code(s): E66.01 - MORBID (SEVERE) OBESITY DUE TO EXCESS CALORIES (13) Primary cancer of ovary with widespread metastatic disease Code(s): C56.9 - MALIGNANT NEOPLASM OF UNSPECIFIED OVARY; C80.0 - DISSEMINATED MALIGNANT NEOPLASM, UNSPECIFIED (14) Pulmonary nodules/lesions, multiple Code(s): R91.8 - OTHER NONSPECIFIC ABNORMAL FINDING OF LUNG FIELD (15) SOB (shortness of breath) Code(s): R06.02 - SHORTNESS OF BREATH (16) Hypothyroid Code(s): E03.9 - HYPOTHYROIDISM, UNSPECIFIED (17) Cough Code(s): R05 - COUGH IMP METASTATIC HIGH GRADE MULLERIAN CA COUGH,DYSPNEA ?SECONDARY TO EXTENSIVE METS,+ H/O ASTHMA HTN AFIB CHRONIC LYMPHADEMA DM SURY THROMBOCYTOPENIA MORBID OBESITY PLAN INHALED BRONCHODILATORS O2 STEROIDS ANTIBIOTICS PER ID ANTI-TUSSIVES Dr An
[2017-04-07 11:39] LABS: ANION GAP 10 (8-16); BLOOD UREA NITROGEN 24 mg/dL (7-18); CALCIUM 8.6 mg/dL (8.5-10.1); CHLORIDE 99 mmol/L (98-107); CO2 23 mmol/L (21-32); GLUCOSE,RANDOM 130 mg/dL (74-106); POTASSIUM 3.8 mmol/L (3.5-5.1); SODIUM 132 mmol/L (136-145)
[2017-04-07 11:44] LABS: ALK PHOS 248 U/L (45-117); BILIRUBIN,TOTAL 0.6 mg/dL (0.2-1.0); CREATININE 0.8 mg/dL (0.55-1.02); SGOT/AST 78 U/L (15-37); SGPT/ALT 52 U/L (12-78); TOT PROT 5.7 g/dl (6.4-8.2)
--- NOTE | 2017-04-07 13:12 | PN ---
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 Pt presented to the ED after outpt labs reveled thrombocytopenia to 39k. Coumadin was held and is still on hold, no active bleed noted. Pt received 1 unit platelets and is being admitted for further transfusions. Of note, pt was climbing the stairs, when she reached the final step her leg went weak and then pivoted around. She now has some eccyhymosis to her lateral side, slip was witnessed by daughter and EMS worker, she did not hit her head, xrays pending. - Current Medication List Current Medications: Active Medications Acetaminophen (Tylenol -) 500 mg PO DAILY [facility] Last Admin: 04/07/17 10:24 Dose: 500 mg Acetaminophen (Tylenol -) 500 mg PO Q6H PRN PRN Reason: FEVER OR PAIN Last Admin: 04/06/17 20:50 Dose: 500 mg Acetylcysteine (Mucomyst 20 Oral / Inh Use Only*) 200 mg NEB QIDR [facility] Last Admin: 04/07/17 06:40 Dose: Not Given Albuterol Sulfate (Ventolin Hfa Inhaler -) 2 puff IH Q4H PRN PRN Reason: SHORT OF BREATH/WHEEZING Last Admin: 04/03/17 21:46 Dose: 2 puff Albuterol/Ipratropium (Duoneb -) 1 amp NEB Q4H PRN PRN Reason: SHORTNESS OF BREATH Last Admin: 04/07/17 10:55 Dose: 1 amp Bupropion HCl (Wellbutrin Xl -) 150 mg PO DAILY [facility] Last Admin: 04/07/17 10:22 Dose: 150 mg Dexamethasone Sodium Phosphate (Decadron Injection -) 4 mg IVPB Q12H [facility] Last Admin: 04/07/17 06:52 Dose: 4 mg Diltiazem HCl (Cardizem Cd -) 300 mg PO DAILY [facility] Last Admin: 04/07/17 10:22 Dose: 300 mg Docusate Sodium (Colace -) 100 mg PO TID [facility] Last Admin: 04/07/17 06:51 Dose: 100 mg Gabapentin (Neurontin -) 100 mg PO TID [facility] Last Admin: 04/07/17 06:51 Dose: Not Given Guaifenesin (Diabetic Tussin Dm -) 10 ml PO Q6H [facility] Last Admin: 04/07/17 10:57 Dose: 10 ml Piperacillin Sod/Tazobactam (Sod 3.375 gm/ Dextrose) 50 mls @ 100 mls/hr IVPB Q8H-IV [facility] PRN Reason: Protocol Last Admin: 04/07/17 10:25 Dose: 100 mls/hr Insulin Aspart (Novolog Vial Sliding Scale -) 1 vial SQ ACHS [facility] PRN Reason: Protocol Last Admin: 04/07/17 12:27 Dose: 2 unit Insulin Detemir (Levemir Vial) 10 units SQ HS [facility] Last Admin: 04/06/17 22:05 Dose: 10 unit Levothyroxine Sodium (Synthroid -) 75 mcg PO DAILY@0700 [facility] Last Admin: 04/07/17 06:56 Dose: 75 mcg Lidocaine (Lidoderm Patch -) 1 patch TP [facility] Last Admin: 04/06/17 22:07 Dose: 1 patch Miscellaneous (Lidoderm Patch Removal) 1 each MC DAILY [facility] Last Admin: 04/07/17 10:25 Dose: Not Given Montelukast Sodium (Singulair -) 10 mg PO HS [facility] Last Admin: 04/06/17 22:05 Dose: 10 mg Pazopanib 200 Mg (Tablet) 2 each PO DAILY@1100 [facility] Last Admin: 04/07/17 10:57 Dose: 2 each Nystatin (Nystatin Oral Suspension -) 500,000 units PO Q6HPO [facility] Last Admin: 04/07/17 06:51 Dose: 500,000 units Pantoprazole Sodium (Protonix -) 40 mg PO DAILY [facility] Last Admin: 04/07/17 10:21 Dose: 40 mg Polyethylene Glycol (Miralax (For Daily Use) -) 17 gm PO DAILY [facility] Last Admin: 04/07/17 10:25 Dose: Not Given Prochlorperazine Maleate (Compazine -) 10 mg PO Q6H PRN PRN Reason: NAUSEA AND/OR VOMITING Senna (Senna -) 2 tab PO HS PRN PRN Reason: CONSTIPATION Last Admin: 04/03/17 21:33 Dose: 2 tab Tiotropium [place] (Spiriva -) 1 puff IH DAILY [facility] Last Admin: 04/07/17 10:56 Dose: 1 puff Tramadol HCl (Ultram -) 75 mg PO Q6H PRN PRN Reason: PAIN Last Admin: 04/07/17 04:04 Dose: 75 mg Tramadol HCl (Ultram -) 75 mg PO DAILY [facility] Last Admin: 04/07/17 10:22 Dose: 75 mg Warfarin Sodium (Coumadin -) 3 mg PO DAILY@1800 [facility] Last Admin: 04/05/17 17:33 Dose: 3 mg - Objective Vital Signs: Vital Signs Temperature 97.8 F 04/07/17 10:00 Pulse Rate 99 H 04/07/17 10:54 Respiratory Rate 20 04/07/17 10:00 Blood Pressure 129/74 04/07/17 10:00 O2 Sat by Pulse Oximetry (%) 95 04/07/17 10:54 Eyes: Yes: WNL, Conjunctiva Clear, EOM Intact HENT: Yes: WNL, Atraumatic, Normocephalic Neck: Yes: WNL, Supple, Trachea Midline Cardiovascular: Yes: Pulse Irregular, S1, S2 Respiratory: Yes: WNL, Regular, CTA Bilaterally Gastrointestinal: Yes: WNL, Normal Bowel Sounds Genitourinary: Yes: WNL Musculoskeletal: Yes: WNL Extremities: Yes: WNL Edema: Yes Integumentary: Yes: WNL Neurological: Yes: WNL, Alert, Oriented ...Motor Strength: WNL Psychiatric: Yes: WNL Labs: CBC, BMP 04/07/17 10:35 04/07/17 10:35 INR, PTT INR 3.50 (0.82-1.09) H 04/07/17 06:30 Assessment/Plan Problems (1) Leukocytosis Code(s): D72.829 - ELEVATED WHITE BLOOD CELL COUNT, UNSPECIFIED (2) MRSA (methicillin resistant Staphylococcus aureus) colonization Code(s): Z22.322 - CARRIER OR SUSPECTED CARRIER OF METHICILLIN RESIS STAPH (3) Thrombocytopenia Code(s): D69.6 - THROMBOCYTOPENIA, UNSPECIFIED (4) A-fib Assessment/Plan: Continue diltiazem CD for HR control. Continue on warfarin (INR now >2.0). Maintain K 4-4.5, Mg 2-2.3, PO4 2.5-3.5. Code(s): I48.91 - UNSPECIFIED ATRIAL FIBRILLATION Qualifiers: (5) Abscess Code(s): L02.91 - CUTANEOUS ABSCESS, UNSPECIFIED (6) Anemia Code(s): D64.9 - ANEMIA, UNSPECIFIED (7) Anxiety and depression Code(s): F41.9 - ANXIETY DISORDER, UNSPECIFIED; F32.9 - MAJOR DEPRESSIVE DISORDER, SINGLE EPISODE, UNSPECIFIED (8) Cancer of ovary Assessment/Plan: CA ovaries with mets. Rx per oncologist. Code(s): C56.9 - MALIGNANT NEOPLASM OF UNSPECIFIED OVARY Qualifiers: (9) Cellulitis Code(s): L03.90 - CELLULITIS, UNSPECIFIED Qualifiers: Site of cellulitis: extremity Site of cellulitis of extremity: lower extremity Laterality: left Qualified Code(s): L03.116 - Cellulitis of left lower limb (10) Diabetes Code(s): E11.9 - TYPE 2 DIABETES MELLITUS WITHOUT COMPLICATIONS Qualifiers: Diabetes mellitus type: type 2 Diabetes mellitus complication status: without complication (11) HTN (hypertension) Code(s): I10 - ESSENTIAL (PRIMARY) HYPERTENSION Qualifiers: (12) Primary cancer of ovary with widespread metastatic disease Code(s): C56.9 - MALIGNANT NEOPLASM OF UNSPECIFIED OVARY; C80.0 - DISSEMINATED MALIGNANT NEOPLASM, UNSPECIFIED (13) SOB (shortness of breath) Assessment/Plan: SOB on minimal exertion.. On cough supressants (with improvement in cough) and antibiotics. Code(s): R06.02 - SHORTNESS OF BREATH (14) Hypothyroid Assessment/Plan: On synthroid. Code(s): E03.9 - HYPOTHYROIDISM, UNSPECIFIED (15) Lymphedema Code(s): I89.0 - LYMPHEDEMA, NOT ELSEWHERE CLASSIFIED
--- NOTE | 2017-04-07 15:00 | PN ---
Teaching Attending Note Name of Resident: Linda Estes ATTENDING PHYSICIAN STATEMENT I saw and evaluated the patient. I reviewed the resident's note and discussed the case with the resident. I agree with the resident's findings and plan as documented. SUBJECTIVE:Patient has been on Zosyn NO fevers OBJECTIVE: ASSESSMENT AND PLAN: Microbiology Selected Entries 04/07/17 04/07/17 10:00 10:54 Temperature 97.8 F Pulse Rate 99 H Respiratory 20 Rate Blood Pressure 129/74 Microbiology 04/02/17 08:20 Nasopharyngeal Swab Influenza Types A,B Antigen (EMA) - Final 04/02/17 08:20 Nasopharyngeal Swab - Final 04/02/17 06:00 Blood - Neeta Cath Blood Culture - Final NO GROWTH AFTER 5 DAYS INCUBATION 04/02/17 06:00 Blood - Peripheral Venous Blood Culture - Final NO GROWTH AFTER 5 DAYS INCUBATION 04/01/17 19:45 Sputum - Expectorated Gram Stain - Final 04/01/17 19:45 Sputum - Expectorated Sputum Culture - Final Strep Agalactiae Group B CT with mets lung Advise Discontinue antibiotic Amadou CHOW
[2017-04-07] MEDS ORDERED: FENTANYL PATCH WASTE TD PRN (15:14)
--- NOTE | 2017-04-07 15:54 | PN ---
Progress Note (short form) - Note Progress Note: Renal follow up for SURY Pt seen and examined at the bedside awake and alert + SOB last night that improved with nebs Vital Signs Temperature 97.8 F 04/07/17 10:00 Pulse Rate 99 H 04/07/17 10:54 Respiratory Rate 20 04/07/17 10:00 Blood Pressure 129/74 04/07/17 10:00 O2 Sat by Pulse Oximetry (%) 95 04/07/17 10:54 Intake & Output 04/04/17 04/05/17 04/06/17 04/07/17 23:59 23:59 23:59 23:59 Intake Total 1565 2380 3070 615 Balance 1565 2380 3070 615 NAD RRRR dry MM CTA Obese Abd 3+ edema in le CBC, BMP 04/07/17 10:35 04/07/17 10:35 Current Medications Acetaminophen (Tylenol -) 500 mg PO DAILY [facility] Last Admin: 04/07/17 10:24 Dose: 500 mg Acetaminophen (Tylenol -) 500 mg PO Q6H PRN PRN Reason: FEVER OR PAIN Last Admin: 04/06/17 20:50 Dose: 500 mg Acetylcysteine (Mucomyst 20 Oral / Inh Use Only*) 200 mg NEB QIDR [facility] Last Admin: 04/07/17 11:00 Dose: Not Given Albuterol Sulfate (Ventolin Hfa Inhaler -) 2 puff IH Q4H PRN PRN Reason: SHORT OF BREATH/WHEEZING Last Admin: 04/03/17 21:46 Dose: 2 puff Albuterol Sulfate (Ventolin 0.083% Nebulizer Soln -) 1 amp NEB Q6H PRN PRN Reason: SHORT OF BREATH/WHEEZING Albuterol/Ipratropium (Duoneb -) 1 amp NEB Q4H PRN PRN Reason: SHORTNESS OF BREATH Last Admin: 04/07/17 10:55 Dose: 1 amp Bupropion HCl (Wellbutrin Xl -) 150 mg PO DAILY [facility] Last Admin: 04/07/17 10:22 Dose: 150 mg Dexamethasone Sodium Phosphate (Decadron Injection -) 4 mg IVPB Q12H [facility] Last Admin: 04/07/17 06:52 Dose: 4 mg Diltiazem HCl (Cardizem Cd -) 300 mg PO DAILY [facility] Last Admin: 04/07/17 10:22 Dose: 300 mg Docusate Sodium (Colace -) 100 mg PO TID [facility] Last Admin: 04/07/17 06:51 Dose: 100 mg Fentanyl (Duragesic 25mcg Patch -) 1 patch TD Q72H [facility] Stop: 04/14/17 15:14 Gabapentin (Neurontin -) 100 mg PO TID [facility] Last Admin: 04/07/17 06:51 Dose: Not Given Guaifenesin (Diabetic Tussin Dm -) 10 ml PO Q6H [facility] Last Admin: 04/07/17 10:57 Dose: 10 ml Insulin Aspart (Novolog Vial Sliding Scale -) 1 vial SQ [facility] PRN Reason: Protocol Last Admin: 04/07/17 12:27 Dose: 2 unit Insulin Detemir (Levemir Vial) 10 units SQ [facility] Last Admin: 04/06/17 22:05 Dose: 10 unit Levothyroxine Sodium (Synthroid -) 75 mcg PO DAILY@0700 [facility] Last Admin: 04/07/17 06:56 Dose: 75 mcg Lidocaine (Lidoderm Patch -) 1 patch TP [facility] Last Admin: 04/06/17 22:07 Dose: 1 patch Miscellaneous (Lidoderm Patch Removal) 1 each MC DAILY [facility] Last Admin: 04/07/17 10:25 Dose: Not Given Miscellaneous (Duragesic Patch Waste) 1 each PRN PRN PRN Reason: PAIN Montelukast Sodium (Singulair -) 10 mg PO [facility] Last Admin: 04/06/17 22:05 Dose: 10 mg Pazopanib 200 Mg (Tablet) 2 each PO DAILY@1100 [facility] Last Admin: 04/07/17 10:57 Dose: 2 each Nystatin (Nystatin Oral Suspension -) 500,000 units PO Q6HPO [facility] Last Admin: 04/07/17 06:51 Dose: 500,000 units Pantoprazole Sodium (Protonix -) 40 mg PO DAILY [facility] Last Admin: 04/07/17 10:21 Dose: 40 mg Polyethylene Glycol (Miralax (For Daily Use) -) 17 gm PO DAILY [facility] Last Admin: 04/07/17 10:25 Dose: Not Given Prochlorperazine Maleate (Compazine -) 10 mg PO Q6H PRN PRN Reason: NAUSEA AND/OR VOMITING Senna (Senna -) 2 tab PO HS PRN PRN Reason: CONSTIPATION Last Admin: 04/03/17 21:33 Dose: 2 tab Tiotropium [place] (Spiriva -) 1 puff IH DAILY [facility] Last Admin: 04/07/17 10:56 Dose: 1 puff Tramadol HCl (Ultram -) 75 mg PO Q6H PRN PRN Reason: PAIN Last Admin: 04/07/17 04:04 Dose: 75 mg Tramadol HCl (Ultram -) 75 mg PO DAILY [facility] Last Admin: 04/07/17 10:22 Dose: 75 mg Warfarin Sodium (Coumadin -) 3 mg PO DAILY@1800 [facility] Last Admin: 04/05/17 17:33 Dose: 3 mg 61 year old woman with PMhx of Metastatic Ovarian Ca (lung, Liver) on Chemo, Hypertension, DM Type 2, Chronic Lymphedema, Obesity presented with thrombocytopenia and found to have hyponatremia. #Acute Renal Insufficiency in setting of diuretics renal function now improved to near baseline trend renal function off IVF hold diuretics until oral intake improves can give Lasix PRN for any acute SOB check CXR in the AM #Hyponatremia serum Na stable #PNA ID following holding Abx now #Metastatic ovarian Ca supportive care Mirza Zuleta DO
--- NOTE | 2017-04-07 15:59 | PN ---
Physical Exam: SUBJECTIVE: 61 y/o F with recent dx high grade ovarian CA with mets to lung, liver (dx August 2016), on chemo (Gemzar), HTN, Type 2 DM, hx MRSA R foot wound, afib, lymphedema , who presented to the ED d/t outpt labs of thrombocytopenia 39k. Pt received 1 unit platelets. ID team consulted for leukocytosis. Most likely 2/2 neupogen. Pt most recently by team for possible PNA, had been on zosyn x 7 day course. OBJECTIVE: Vital Signs Period Temp Pulse Resp BP Sys/Dinero Pulse Ox Last 24 Hr 97.2 F-98.6 F 88-104 20-22 104-129/57-74 94-99 GENERAL: The patient is lethargic, AAOx3, in mild distress. on 2L NC 02 HEAD: Normal with no signs of trauma. EYES: PERRL, extraocular movements intact, sclera anicteric, conjunctiva clear. . NECK: Trachea midline, supple. LUNGS: decreased breath sounds appreciated b/l. No wheezes, crackles, or rhonchi noted. HEART: Regular rate and rhythm, S1, S2 without murmur, rub or gallop. ABDOMEN: Soft, obese nontender, distended with normoactive bowel sounds. No guarding, no rebound EXTREMITIES: 2+ posterior tibial pulses, 2+ pitting edema in RLE and LLE with chronic venous stasis changes. NEUROLOGICAL: Cranial nerves II through XII grossly intact. Laboratory Tests 04/07/17 04/07/17 10:35 10:35 WBC 14.3 H Hgb 10.2 L Hct 31.6 L Sodium 132 L Potassium 3.8 D Chloride 99 Carbon Dioxide 23 BUN 24 H Creatinine 0.8 D AST 78 H ALT 52 Alkaline Phosphatase 248 H Albumin 2.0 L Active Medications Generic Name Dose Route Start Last Admin Trade Name Freq PRN Reason Stop Dose Admin Acetaminophen 500 mg 04/02/17 10:00 04/07/17 10:24 Tylenol - PO 500 mg DAILY [facility] Administration Acetaminophen 500 mg 04/04/17 23:28 04/06/17 20:50 Tylenol - PO 500 mg Q6H PRN Administration FEVER OR PAIN Acetylcysteine 200 mg 04/01/17 14:30 04/07/17 11:00 Mucomyst 20 Oral / Inh Use Only* NEB Not Given QIDR VIRGILIO Albuterol Sulfate 2 puff 04/02/17 14:49 04/03/17 21:46 Ventolin Hfa Inhaler - IH 2 puff Q4H PRN Administration SHORT OF BREATH/WHEEZING Albuterol Sulfate 1 amp 04/07/17 15:16 Ventolin 0.083% Nebulizer Soln - NEB Q6H PRN SHORT OF BREATH/WHEEZING Albuterol/Ipratropium 1 amp 04/07/17 09:01 04/07/17 10:55 Duoneb - NEB 1 amp Q4H PRN Administration SHORTNESS OF BREATH Bupropion HCl 150 mg 03/23/17 10:00 04/07/17 10:22 Wellbutrin Xl - PO 150 mg DAILY [facility] Administration Dexamethasone Sodium Phosphate 4 mg 04/03/17 18:00 04/07/17 06:52 Decadron Injection - IVPB 4 mg Q12H [facility] Administration Diltiazem HCl 300 mg 03/23/17 10:00 04/07/17 10:22 Cardizem Cd - PO 300 mg DAILY [facility] Administration Docusate Sodium 100 mg 03/26/17 22:00 04/07/17 06:51 Colace - PO 100 mg TID [facility] Administration Fentanyl 1 patch 04/07/17 15:15 Duragesic 25mcg Patch - TD 04/14/17 15:14 Q72H [facility] Gabapentin 100 mg 03/29/17 22:00 04/07/17 06:51 Neurontin - PO Not Given TID [facility] Guaifenesin 10 ml 03/30/17 17:00 04/07/17 10:57 Diabetic Tussin Dm - PO 10 ml Q6H [facility] Administration Insulin Aspart 1 vial 03/24/17 18:16 04/07/17 12:27 Novolog Vial Sliding Scale - SQ 2 unit ACHS [facility] Administration Protocol Insulin Detemir 10 units 04/04/17 22:00 04/06/17 22:05 Levemir Vial SQ 10 unit HS [facility] Administration Levothyroxine Sodium 75 mcg 03/23/17 07:00 04/07/17 06:56 Synthroid - PO 75 mcg DAILY@0700 [facility] Administration Lidocaine 1 patch 03/25/17 00:15 04/06/17 22:07 Lidoderm Patch - TP 1 patch HS [facility] Administration Miscellaneous 1 each 03/25/17 10:00 04/07/17 10:25 Lidoderm Patch Removal MC Not Given DAILY [facility] Miscellaneous 1 each 04/07/17 15:14 Duragesic Patch Waste MC PRN PRN PAIN Montelukast Sodium 10 mg 03/22/17 22:00 04/06/17 22:05 Singulair - PO 10 mg HS [facility] Administration Pazopanib 200 Mg 2 each 04/05/17 11:00 04/07/17 10:57 Tablet PO 2 each DAILY@1100 [facility] Administration Nystatin 500,000 units 04/04/17 00:00 04/07/17 06:51 Nystatin Oral Suspension - PO 500,000 units Q6HPO [facility] Administration Pantoprazole Sodium 40 mg 04/03/17 10:00 04/07/17 10:21 Protonix - PO 40 mg DAILY [facility] Administration Polyethylene Glycol 17 gm 03/23/17 10:00 04/07/17 10:25 Miralax (For Daily Use) - PO Not Given DAILY [facility] Prochlorperazine Maleate 10 mg 04/05/17 10:08 Compazine - PO Q6H PRN NAUSEA AND/OR VOMITING Senna 2 tab 03/22/17 18:13 04/03/17 21:33 Senna - PO 2 tab HS PRN Administration CONSTIPATION Tiotropium [place] 1 puff 03/23/17 10:00 04/07/17 10:56 Spiriva - IH 1 puff DAILY [facility] Administration Tramadol HCl 75 mg 03/28/17 22:59 04/07/17 04:04 Ultram - PO 75 mg Q6H PRN Administration PAIN Tramadol HCl 75 mg 04/02/17 10:00 04/07/17 10:22 Ultram - PO 75 mg DAILY [facility] Administration Warfarin Sodium 3 mg 03/29/17 18:00 04/05/17 17:33 Coumadin - PO 3 mg DAILY@1800 [facility] Administration Microbiology 04/02/17 08:20 Nasopharyngeal Swab Influenza Types A,B Antigen (EMA) - Final 04/02/17 08:20 Nasopharyngeal Swab - Final 04/02/17 06:00 Blood - Neeta Cath Blood Culture - Final NO GROWTH AFTER 5 DAYS INCUBATION 04/02/17 06:00 Blood - Peripheral Venous Blood Culture - Final NO GROWTH AFTER 5 DAYS INCUBATION 04/01/17 19:45 Sputum - Expectorated Gram Stain - Final 04/01/17 19:45 Sputum - Expectorated Sputum Culture - Final Strep Agalactiae Group B 03/23/17 12:50 Blood - Peripheral Venous Blood Culture - Final NO GROWTH AFTER 5 DAYS INCUBATION 03/23/17 12:45 Blood - Peripheral Venous Blood Culture - Final NO GROWTH AFTER 5 DAYS INCUBATION ASSESSMENT/PLAN: #High grade ovarian CA w/ mets to lung -pt SOB, on 2L NC 02, sat well -endorses productive cough may be 2/2 lung mets -afebrile- zosyn has been d/c -leukocytosis 14.3 most likely 2/2 steroids -Continue to monitor -O2 as needed Linda Estes MD PGY-1 ID team Visit type - Emergency Visit Emergency Visit: No - New Patient This patient is new to me today: Yes Date on this admission: 04/07/17 - Critical Care Critical Care patient: No
[2017-04-07] MEDS ORDERED: fentaNYL 25mcg/hr PATCH.TD72 TD SCH (16:30)
[2017-04-07] MEDS: ALBUTEROL SO4 0.083% IH SOL 2.5 MG/3 ML VIAL.NEB. NEB PRN (17:19)
--- NOTE | 2017-04-07 17:55 | PN ---
Progress Note (short form) - Note Progress Note: Patient seen and examined feels weak Last Vital Signs Temp Pulse Resp BP Pulse Ox 97.8 F 99 H 20 129/74 95 04/07/17 10:00 04/07/17 10:54 04/07/17 10:00 04/07/17 10:00 04/07/17 10:54 Cor: RSR, No murmurs, No gallops Lungs: decreased Lt. base breath sounds Abd: Soft, Normal bowel sounds, No organomegaly Ext: venous stasis/lymphedema Abnormal Lab Results 04/07/17 04/07/17 04/07/17 06:30 10:35 10:35 WBC 14.3 H RBC 3.15 L Hgb 10.2 L Hct 31.6 L MCV 100.3 H RDW 24.6 H Lymphocytes % (Manual) 2.0 L D Monocytes % (Manual) 17 H* Myelocytes % (Man) 5 H D PT with INR 39.50 H INR 3.50 H Sodium 132 L BUN 24 H Random Glucose 130 H AST 78 H Alkaline Phosphatase 248 H Total Protein 5.7 L Albumin 2.0 L Active Medications Generic Name Dose Route Start Last Admin Trade Name Freq PRN Reason Stop Dose Admin Acetaminophen 500 mg 04/02/17 10:00 04/07/17 10:24 Tylenol - PO 500 mg DAILY [facility] Administration Acetaminophen 500 mg 04/04/17 23:28 04/06/17 20:50 Tylenol - PO 500 mg Q6H PRN Administration FEVER OR PAIN Acetylcysteine 200 mg 04/01/17 14:30 04/07/17 17:19 Mucomyst 20 Oral / Inh Use Only* NEB 200 mg QIDR [facility] Administration Albuterol Sulfate 2 puff 04/02/17 14:49 04/03/17 21:46 Ventolin Hfa Inhaler - IH 2 puff Q4H PRN Administration SHORT OF BREATH/WHEEZING Albuterol Sulfate 1 amp 04/07/17 15:16 04/07/17 17:19 Ventolin 0.083% Nebulizer Soln - NEB 1 amp Q6H PRN Administration SHORT OF BREATH/WHEEZING Albuterol/Ipratropium 1 amp 04/07/17 09:01 04/07/17 10:55 Duoneb - NEB 1 amp Q4H PRN Administration SHORTNESS OF BREATH Bupropion HCl 150 mg 03/23/17 10:00 04/07/17 10:22 Wellbutrin Xl - PO 150 mg DAILY [facility] Administration Dexamethasone Sodium Phosphate 4 mg 04/03/17 18:00 04/07/17 06:52 Decadron Injection - IVPB 4 mg Q12H [facility] Administration Diltiazem HCl 300 mg 03/23/17 10:00 04/07/17 10:22 Cardizem Cd - PO 300 mg DAILY [facility] Administration Docusate Sodium 100 mg 03/26/17 22:00 04/07/17 16:19 Colace - PO Not Given TID [facility] Fentanyl 1 patch 04/07/17 16:30 04/07/17 16:44 Duragesic 25mcg Patch - TD 04/14/17 16:29 1 patch Q72H [facility] Administration Gabapentin 100 mg 03/29/17 22:00 04/07/17 16:19 Neurontin - PO Not Given TID [facility] Guaifenesin 10 ml 03/30/17 17:00 04/07/17 10:57 Diabetic Tussin Dm - PO 10 ml Q6H [facility] Administration Insulin Aspart 1 vial 03/24/17 18:16 04/07/17 12:27 Novolog Vial Sliding Scale - SQ 2 unit ACHS [facility] Administration Protocol Insulin Detemir 10 units 04/04/17 22:00 04/06/17 22:05 Levemir Vial SQ 10 unit HS [facility] Administration Levothyroxine Sodium 75 mcg 03/23/17 07:00 04/07/17 06:56 Synthroid - PO 75 mcg DAILY@0700 [facility] Administration Lidocaine 1 patch 03/25/17 00:15 04/06/17 22:07 Lidoderm Patch - TP 1 patch HS [facility] Administration Miscellaneous 1 each 03/25/17 10:00 04/07/17 10:25 Lidoderm Patch Removal MC Not Given DAILY [facility] Miscellaneous 1 each 04/07/17 15:14 Duragesic Patch Waste TD PRN PRN PAIN Montelukast Sodium 10 mg 03/22/17 22:00 04/06/17 22:05 Singulair - PO 10 mg HS [facility] Administration Pazopanib 200 Mg 2 each 04/05/17 11:00 04/07/17 10:57 Tablet PO 2 each DAILY@1100 [facility] Administration Nystatin 500,000 units 04/04/17 00:00 04/07/17 06:51 Nystatin Oral Suspension - PO 500,000 units Q6HPO [facility] Administration Pantoprazole Sodium 40 mg 04/03/17 10:00 04/07/17 10:21 Protonix - PO 40 mg DAILY [facility] Administration Polyethylene Glycol 17 gm 03/23/17 10:00 04/07/17 10:25 Miralax (For Daily Use) - PO Not Given DAILY [facility] Prochlorperazine Maleate 10 mg 04/05/17 10:08 Compazine - PO Q6H PRN NAUSEA AND/OR VOMITING Senna 2 tab 03/22/17 18:13 04/03/17 21:33 Senna - PO 2 tab HS PRN Administration CONSTIPATION Tiotropium [place] 1 puff 03/23/17 10:00 04/07/17 10:56 Spiriva - IH 1 puff DAILY [facility] Administration Tramadol HCl 75 mg 03/28/17 22:59 04/07/17 04:04 Ultram - PO 75 mg Q6H PRN Administration PAIN Tramadol HCl 75 mg 04/02/17 10:00 04/07/17 10:22 Ultram - PO 75 mg DAILY [facility] Administration Warfarin Sodium 3 mg 03/29/17 18:00 04/05/17 17:33 Coumadin - PO 3 mg DAILY@1800 [facility] Administration A/P 61 y/o patient with metastatic high grade mullerian cancer on gemzar Comes in with thrombocytopenia Transfused monodonor platelets Transfused PRBCs CT scans show progressive diseasse New T10 met/epidural disease pain control Started pazopanib -- 04/05/17 On heparin drip bridging to coumadin Cough-- nebulizer treatments/robitusssin On zosyn CT chest non conttrast --mets T10 metastases-- for RT, but feels too weak to go on decadron 4mg bid Pain control continue tramadol/tylenol patient with pruritus with codeine/morphine/dilaudid resume fentanyl as renal function improved discussed with daughter aware of overall poor prognosis ? subacute rehab
[2017-04-07] MEDS: SODIUM CHLORIDE 1,000 ML IV SCH (19:09)
[2017-04-07] MEDS ORDERED: traMADol HCL 50 MG TABLET PO PRN (21:44)
[2017-04-07] MEDS: DEXAMETHASONE SOD PHOSPHATE 4 MG/1 ML VIAL IVPUSH SCH (21:57)
[2017-04-07] MEDS: MONTELUKAST NA 10 MG TABLET PO SCH (21:58)
[2017-04-07] MEDS: INSULIN DETEMIR 100 UNITS/ML MDV SQ SCH (22:11)
[2017-04-07] MEDS: LIDOCAINE 5% TOPICAL PATCH TP SCH (22:11)
[2017-04-08] MEDS: guaiFENesin/D-M SUGAR-FREE/ACLHOL-FREE 118 ML BOTTLE PO SCH ×4 (00:59→17:48)
[2017-04-08] MEDS: NYSTATIN 500,000 UNITS/5 ML SUSPENSION PO SCH ×4 (00:59→17:49)
--- NOTE | 2017-04-08 03:53 | RAPID ---
Physical Examination Vital Signs: Vital Signs Temperature 97.8 F 04/07/17 22:31 Pulse Rate 94 H 04/07/17 22:31 Respiratory Rate 20 04/07/17 22:31 Blood Pressure 132/91 04/07/17 22:31 O2 Sat by Pulse Oximetry (%) 98 04/07/17 20:35 Labs: CBC, BMP 04/07/17 10:35 04/07/17 10:35
--- NOTE | 2017-04-08 04:09 | RAPID ---
Physical Examination Vital Signs: Vital Signs Temperature 97.8 F 04/07/17 22:31 Pulse Rate 94 H 04/07/17 22:31 Respiratory Rate 20 04/07/17 22:31 Blood Pressure 132/91 04/07/17 22:31 O2 Sat by Pulse Oximetry (%) 98 04/07/17 20:35 Constitutional: Yes: Well Nourished, Calm Eyes: Yes: WNL HENT: Yes: WNL, Atraumatic, Normocephalic Neck: Yes: WNL Cardiovascular: Yes: Regular Rate and Rhythm Respiratory: Yes: WNL, CTA Bilaterally Gastrointestinal: Yes: WNL Musculoskeletal: Yes: Other (Limited strength/ROM at knees) Edema: LLE: 3+, RLE: 3+ Neurological: Yes: WNL, Alert, Oriented, Cran Nerves II-XII Intact Labs: CBC, BMP 04/07/17 10:35 04/07/17 10:35 Rapid Response - Rapid Response Assessment: RR called, night team arrived at bedside. Pt seated on floor, in front of wheelchair. Per nursing, pt was lowered to the ground by staff due to verbalized inability to support herself when attempting to transfer to bathroom. Pt with severe morbid obesity. No LOC, headstrike or physical trauma witnessed or endorsed by the pt. Vitals stable (143/78 20 114 97.9 100% on O2 2L ). Physical exam with no changes from pt's baseline. No signs of trauma. Posterior buttocks and lower back examined as pt was in fixed contact with wheelchair while on floor. No gross deformities, bruising, lacerations or pain to palpation noted. Pt denies any pain, numbness or new neurologic symptoms. Pt was assisted to bed with lift apparatus and was cleaned and made comfortable. Recommendations/Interventions: Plan: High Fall risk due to body habitus Bed alarm OOB with assistance Monitor for signs of bruising, gross deformities or new neuro symptoms in LEs Voiding, stooling using bedpan
[2017-04-08] MEDS: ALBUTEROL SO4 2.5/IPRATROPIUM 0.5 INH SOL 3 ML VIAL.NEB. NEB PRN ×3 (05:03→23:28)
[2017-04-08] MEDS: GABAPENTIN 100 MG CAPSULE (FP) PO SCH ×3 (06:19→21:25)
[2017-04-08] MEDS: DOCUSATE SODIUM 100 MG CAPSULE (FP) PO SCH ×3 (06:19→21:22)
[2017-04-08] MEDS: INSULIN SLIDING SCALE (NOVOLOG) 1 VIAL SQ SCH ×4 (06:20→21:25)
[2017-04-08] MEDS: LEVOTHYROXINE NA 75 MCG TABLET (FP) PO SCH (06:20)
[2017-04-08] MEDS ORDERED: INSULIN DETEMIR 100 UNITS/ML MDV SQ ONE (06:49)
[2017-04-08] MEDS ORDERED: INSULIN (NOVOLOG) ASPART 100 UNITS/ML 10ML VIAL ONE ×2 (06:50→11:51)
[2017-04-08 07:38] LABS: HEMATOCRIT 32.3 % (32.4-45.2); HEMOGLOBIN 10.4 GM/dL (10.7-15.3); MCH 32.1 pg (25.7-33.7); MCHC 32.1 g/dl (32.0-36.0); MEAN CELL VOLUME 99.9 fl (80-96); MEAN PLT VOLUME 9.5 fl (7.5-11.1); PLATELET COUNT 191 K/MM3 (134-434); RBC 3.23 M/mm3 (3.60-5.2); RDW 24.4 % (11.6-15.6); WHITE BLOOD COUNT 14.9 K/mm3 (4.0-10.0)
[2017-04-08 07:39] LABS: ADD RBC MORPHOLOGY YES
[2017-04-08 07:59] LABS: INR 2.88 (0.82-1.09); PROTHROMBIN TIME (PATIENT) 32.5 SEC (9.98-11.88)
--- NOTE | 2017-04-08 08:24 | PN ---
Progress Note (short form) - Note Progress Note: patient seen and examined Sitting in chair No distress--but weak events of last night noted Daughter at bedside off antibiotics Unable to go to radiation therapy Vital Signs Temp 97.6 F 04/08/17 06:00 Pulse 112 H 04/08/17 06:00 Resp 20 04/08/17 06:00 BP 132/85 04/08/17 06:00 Pulse Ox 98 04/07/17 20:35 Intake & Output 04/07/17 04/07/17 04/08/17 11:59 23:59 11:59 Intake Total 615 598 150 Balance 615 598 150 Intake: IV 415 498 s/l 415 498 IVPB 100 Oral 200 150 Other: Voiding Method Bedpan Bedpan Incontinent # Unmeasured Voids Void 2 2 1 Bowel Movement Yes: big Yes # Bowel Movements 1 1 1 Active Medications Acetaminophen (Tylenol -) 500 mg PO DAILY [facility] Last Admin: 04/07/17 10:24 Dose: 500 mg Acetaminophen (Tylenol -) 500 mg PO Q6H PRN PRN Reason: FEVER OR PAIN Last Admin: 04/06/17 20:50 Dose: 500 mg Albuterol Sulfate (Ventolin Hfa Inhaler -) 2 puff IH Q4H PRN PRN Reason: SHORT OF BREATH/WHEEZING Last Admin: 04/03/17 21:46 Dose: 2 puff Albuterol Sulfate (Ventolin 0.083% Nebulizer Soln -) 1 amp NEB Q6H PRN PRN Reason: SHORT OF BREATH/WHEEZING Last Admin: 04/07/17 17:19 Dose: 1 amp Albuterol/Ipratropium (Duoneb -) 1 amp NEB Q4H PRN PRN Reason: SHORTNESS OF BREATH Last Admin: 04/08/17 05:03 Dose: 1 amp Bupropion HCl (Wellbutrin Xl -) 150 mg PO DAILY [facility] Last Admin: 04/07/17 10:22 Dose: 150 mg Dexamethasone Sodium Phosphate (Decadron Injection -) 2 mg IVPUSH BID [facility] Last Admin: 04/07/17 21:57 Dose: 2 mg Diltiazem HCl (Cardizem Cd -) 300 mg PO DAILY [facility] Last Admin: 04/07/17 10:22 Dose: 300 mg Docusate Sodium (Colace -) 100 mg PO TID [facility] Last Admin: 04/08/17 06:19 Dose: Not Given Fentanyl (Duragesic 25mcg Patch -) 1 patch TD Q72H [facility] Stop: 04/14/17 16:29 Last Admin: 04/07/17 16:44 Dose: 1 patch Gabapentin (Neurontin -) 100 mg PO TID [facility] Last Admin: 04/08/17 06:19 Dose: Not Given Guaifenesin (Diabetic Tussin Dm -) 10 ml PO Q6H [facility] Last Admin: 04/08/17 06:19 Dose: 10 ml Insulin Aspart (Novolog Vial Sliding Scale -) 1 vial SQ [facility] PRN Reason: Protocol Last Admin: 04/08/17 06:20 Dose: 2 unit Insulin Detemir (Levemir Vial) 10 units SQ [facility] Last Admin: 04/07/17 22:11 Dose: 10 unit Levothyroxine Sodium (Synthroid -) 75 mcg PO DAILY@0700 [facility] Last Admin: 04/08/17 06:20 Dose: 75 mcg Lidocaine (Lidoderm Patch -) 1 patch TP [facility] Last Admin: 04/07/17 22:11 Dose: Not Given Miscellaneous (Lidoderm Patch Removal) 1 each MC DAILY [facility] Last Admin: 04/07/17 10:25 Dose: Not Given Miscellaneous (Duragesic Patch Waste) 1 each TD PRN PRN PRN Reason: PAIN Montelukast Sodium (Singulair -) 10 mg PO HS [facility] Last Admin: 04/07/17 21:58 Dose: 10 mg Pazopanib 200mg Tab (Non-Formulary Med) 3 each PO DAILY@1100 [facility] Nystatin (Nystatin Oral Suspension -) 500,000 units PO Q6HPO [facility] Last Admin: 04/08/17 06:19 Dose: 500,000 units Pantoprazole Sodium (Protonix -) 40 mg PO DAILY [facility] Last Admin: 04/07/17 10:21 Dose: 40 mg Polyethylene Glycol (Miralax (For Daily Use) -) 17 gm PO DAILY [facility] Last Admin: 04/07/17 10:25 Dose: Not Given Prochlorperazine Maleate (Compazine -) 10 mg PO Q6H PRN PRN Reason: NAUSEA AND/OR VOMITING Senna (Senna -) 2 tab PO HS PRN PRN Reason: CONSTIPATION Last Admin: 04/03/17 21:33 Dose: 2 tab Tiotropium [place] (Spiriva -) 1 puff IH DAILY [facility] Last Admin: 04/07/17 10:56 Dose: 1 puff Tramadol HCl (Ultram -) 75 mg PO DAILY [facility] Last Admin: 04/07/17 21:57 Dose: 75 mg Tramadol HCl (Ultram -) 75 mg PO Q6H PRN PRN Reason: PAIN SCALE ABOVE 5 Stop: 04/08/17 21:43 Warfarin Sodium (Coumadin -) 3 mg PO DAILY@1800 [facility] Last Admin: 04/05/17 17:33 Dose: 3 mg CBC, BMP 04/08/17 06:00 INR, PTT INR 2.88 (0.82-1.09) H 04/08/17 06:00 Physical Examination Constitutional: Yes: .chronic ill appearance. obese. Eyes: Yes: Conjunctiva Clear Neck: Yes: Supple, Trachea Midline. no jvd Cardiovascular: Yes: Pulse Irregular, S1, S2 Respiratory: Yes: diminished at bases.--no wheezes. Gastrointestinal: Yes: Normal Bowel Sounds, Abdomen, Obese. Neurological: Yes: Alert, Oriented x 3 Psychiatric: Yes: Alert, Oriented Ext-Chronic venous stasis of legs Assessment/Plan Metastatic ovarian ca-- advanced with lungs to mets Thrombocytopenia paroxysmal afib obesity depression hyponatremia- overall condition same . fall precautions Restart Coumadin-- Monitor Discharge planning--- not safe discharge to home--- but patient and daughter thinking going home They will discuss with carburetor repairer and field nurse case manager I also discussed with Rebecca carburetor repairer and field nurse case manager--they will follow- I recommended short-term rehabilitation Will follow Problem List - Problems (1) Thrombocytopenia Code(s): D69.6 - THROMBOCYTOPENIA, UNSPECIFIED (2) A-fib Code(s): I48.91 - UNSPECIFIED ATRIAL FIBRILLATION Qualifiers: (3) Anemia Code(s): D64.9 - ANEMIA, UNSPECIFIED (4) Diabetes Code(s): E11.9 - TYPE 2 DIABETES MELLITUS WITHOUT COMPLICATIONS Qualifiers: Diabetes mellitus type: type 2 Diabetes mellitus complication status: without complication (5) Hypoalbuminemia Code(s): E88.09 - OTH DISORDERS OF PLASMA-PROTEIN METABOLISM, NEC (6) Primary cancer of ovary with widespread metastatic disease Code(s): C56.9 - MALIGNANT NEOPLASM OF UNSPECIFIED OVARY; C80.0 - DISSEMINATED MALIGNANT NEOPLASM, UNSPECIFIED
[2017-04-08 08:27] LABS: ANION GAP 10 (8-16); BLOOD UREA NITROGEN 23 mg/dL (7-18); CALCIUM 8.5 mg/dL (8.5-10.1); CHLORIDE 98 mmol/L (98-107); CO2 22 mmol/L (21-32); CREATININE 0.9 mg/dL (0.55-1.02); GLUCOSE,RANDOM 153 mg/dL (74-106); MAGNESIUM 2.4 mg/dL (1.8-2.4); PHOSPHOROUS 3.1 mg/dL (2.5-4.9); POTASSIUM 3.9 mmol/L (3.5-5.1); SODIUM 130 mmol/L (136-145)
[2017-04-08] MEDS ORDERED: PT OWN MED DRAWER 7, Y5N ONE ×3 (10:16→21:47)
[2017-04-08] MEDS: traMADol HCL 50 MG TABLET PO SCH (10:24)
[2017-04-08] MEDS: PANTOPRAZOLE 40 MG TABLET (FP) PO SCH (10:25)
[2017-04-08] MEDS: ACETAMINOPHEN 500 MG TABLET (FP) PO SCH (10:31)
[2017-04-08] MEDS: PAZOPANIB 200 MG PO SCH (10:32)
[2017-04-08] MEDS: DEXAMETHASONE SOD PHOSPHATE 4 MG/1 ML VIAL IVPUSH SCH ×2 (10:32→21:22)
[2017-04-08] MEDS: TIOTROPIUM BROMIDE 18 MCG/INH (DEVICE W/ 5 CAPSULES) IH SCH (10:42)
[2017-04-08] MEDS: LIDOCAINE PATCH REMOVAL MC SCH (11:17)
[2017-04-08] MEDS: POLYETHYLENE GLYCOL 3350 119 GM BTL PO SCH (11:18)
--- NOTE | 2017-04-08 11:29 | PN ---
Progress Note (short form) - Note Progress Note: Events from overnight noted, needed to be lowered to the floor. No apparent injury sustained. Breathing feels about the same. No reported hemoptysis. Intake & Output 04/05/17 04/06/17 04/07/17 04/08/17 23:59 23:59 23:59 23:59 Intake Total 2380 3070 1213 150 Balance 2380 3070 1213 150 Last Vital Signs Temp Pulse Resp BP Pulse Ox 97.6 F 112 H 20 132/85 98 04/08/17 06:00 04/08/17 06:00 04/08/17 06:00 04/08/17 06:00 04/07/17 20:35 Active Medications Acetaminophen (Tylenol -) 500 mg PO DAILY [facility] Last Admin: 04/08/17 10:31 Dose: Not Given Acetaminophen (Tylenol -) 500 mg PO Q6H PRN PRN Reason: FEVER OR PAIN Last Admin: 04/06/17 20:50 Dose: 500 mg Albuterol Sulfate (Ventolin Hfa Inhaler -) 2 puff IH Q4H PRN PRN Reason: SHORT OF BREATH/WHEEZING Last Admin: 04/03/17 21:46 Dose: 2 puff Albuterol Sulfate (Ventolin 0.083% Nebulizer Soln -) 1 amp NEB Q6H PRN PRN Reason: SHORT OF BREATH/WHEEZING Last Admin: 04/07/17 17:19 Dose: 1 amp Albuterol/Ipratropium (Duoneb -) 1 amp NEB Q4H PRN PRN Reason: SHORTNESS OF BREATH Last Admin: 04/08/17 05:03 Dose: 1 amp Bupropion HCl (Wellbutrin Xl -) 150 mg PO DAILY [facility] Last Admin: 04/08/17 10:31 Dose: 150 mg Dexamethasone Sodium Phosphate (Decadron Injection -) 2 mg IVPUSH BID [facility] Last Admin: 04/08/17 10:32 Dose: 2 mg Diltiazem HCl (Cardizem Cd -) 300 mg PO DAILY [facility] Last Admin: 04/08/17 10:26 Dose: 300 mg Docusate Sodium (Colace -) 100 mg PO TID [facility] Last Admin: 04/08/17 06:19 Dose: Not Given Fentanyl (Duragesic 25mcg Patch -) 1 patch TD Q72H [facility] Stop: 04/14/17 16:29 Last Admin: 04/07/17 16:44 Dose: 1 patch Gabapentin (Neurontin -) 100 mg PO TID [facility] Last Admin: 04/08/17 06:19 Dose: Not Given Guaifenesin (Diabetic Tussin Dm -) 10 ml PO Q6H [facility] Last Admin: 04/08/17 06:19 Dose: 10 ml Insulin Aspart (Novolog Vial Sliding Scale -) 1 vial SQ [facility] PRN Reason: Protocol Last Admin: 04/08/17 06:20 Dose: 2 unit Insulin Detemir (Levemir Vial) 10 units SQ [facility] Last Admin: 04/07/17 22:11 Dose: 10 unit Levothyroxine Sodium (Synthroid -) 75 mcg PO DAILY@0700 [facility] Last Admin: 04/08/17 06:20 Dose: 75 mcg Lidocaine (Lidoderm Patch -) 1 patch TP [facility] Last Admin: 04/07/17 22:11 Dose: Not Given Miscellaneous (Lidoderm Patch Removal) 1 each MC DAILY [facility] Last Admin: 04/08/17 11:17 Dose: Not Given Miscellaneous (Duragesic Patch Waste) 1 each TD PRN PRN PRN Reason: PAIN Montelukast Sodium (Singulair -) 10 mg PO [facility] Last Admin: 04/07/17 21:58 Dose: 10 mg Pazopanib 200mg Tab (Non-Formulary Med) 3 each PO DAILY@1100 [facility] Last Admin: 04/08/17 10:32 Dose: 3 each Nystatin (Nystatin Oral Suspension -) 500,000 units PO Q6HPO [facility] Last Admin: 04/08/17 06:19 Dose: 500,000 units Pantoprazole Sodium (Protonix -) 40 mg PO DAILY [facility] Last Admin: 04/08/17 10:25 Dose: 40 mg Polyethylene Glycol (Miralax (For Daily Use) -) 17 gm PO DAILY [facility] Last Admin: 04/08/17 11:18 Dose: Not Given Prochlorperazine Maleate (Compazine -) 10 mg PO Q6H PRN PRN Reason: NAUSEA AND/OR VOMITING Senna (Senna -) 2 tab PO HS PRN PRN Reason: CONSTIPATION Last Admin: 04/03/17 21:33 Dose: 2 tab Tiotropium [place] (Spiriva -) 1 puff IH DAILY [facility] Last Admin: 04/07/17 10:56 Dose: 1 puff Tramadol HCl (Ultram -) 75 mg PO DAILY [facility] Last Admin: 04/08/17 10:24 Dose: 75 mg Tramadol HCl (Ultram -) 75 mg PO Q6H PRN PRN Reason: PAIN SCALE ABOVE 5 Stop: 04/08/17 21:43 Warfarin Sodium (Coumadin -) 3 mg PO DAILY@1800 [facility] Last Admin: 04/05/17 17:33 Dose: 3 mg Constitutional: Yes: NAD, Obese Eyes: Yes: WNL HENT: Yes: WNL Neck: Yes: Supple Cardiovascular: Yes: S1S2 Respiratory: Yes: Diminished Gastrointestinal: Yes: Soft, Abdomen, Obese ...Rectal Exam: Yes: Deferred Genitourinary: No: Anuria Musculoskeletal: Yes: Joint Stiffness, Joint Swelling, Muscle Weakness Extremities: Yes: Cool Edema: Yes Edema: LLE: 3+, RLE: 3+ Peripheral Pulses WNL: No Peripheral Pulses: Left Doralis Pedis: 1+, Right Dorsalis Pedis: 1+ Integumentary: Yes: Venous Stasis Changes, Other Neurological: Yes: Alert, Oriented, Unsteady Gait, Weakness Psychiatric: Yes: Other Lab Laboratory Results - last 24 hr 04/07/17 04/07/17 04/07/17 10:35 10:35 16:56 WBC 14.3 H RBC 3.15 L Hgb 10.2 L Hct 31.6 L MCV 100.3 H MCH 32.4 MCHC 32.3 RDW 24.6 H Plt Count 187 MPV 9.4 Total Counted 100 Neutrophils % No Result Required. Neutrophils % (Manual) 69.0 Band Neutrophils % 2.0 Lymphocytes % No Result Required. Lymphocytes % (Manual) 2.0 L D Monocytes % (Manual) 17 H* Myelocytes % (Man) 5 H D Metamyelocytes 2 D Plasma Cells 3 Morphology Comment Cancelled PT with INR INR Sodium 132 L Potassium 3.8 D Chloride 99 Carbon Dioxide 23 Anion Gap 10 BUN 24 H Creatinine 0.8 D Creat Clearance w eGFR > 60 POC Glucometer 162 Random Glucose 130 H Calcium 8.6 Phosphorus Magnesium Total Bilirubin 0.6 D AST 78 H ALT 52 Alkaline Phosphatase 248 H Total Protein 5.7 L Albumin 2.0 L 04/07/17 04/08/1717 22:02 06:00 06:00 WBC 14.9 H RBC 3.23 L Hgb 10.4 L Hct 32.3 L MCV 99.9 H MCH 32.1 MCHC 32.1 RDW 24.4 H Plt Count 191 MPV 9.5 Total Counted Neutrophils % No Result Required. Neutrophils % (Manual) Band Neutrophils % Lymphocytes % No Result Required. Lymphocytes % (Manual) Monocytes % (Manual) Myelocytes % (Man) Metamyelocytes Plasma Cells Morphology Comment PT with INR 32.50 H INR 2.88 H Sodium Potassium Chloride Carbon Dioxide Anion Gap BUN Creatinine Creat Clearance w eGFR POC Glucometer 171 Random Glucose Calcium Phosphorus Magnesium Total Bilirubin AST ALT Alkaline Phosphatase Total Protein Albumin 04/08/17 04/08/17 06:00 06:18 WBC RBC Hgb Hct MCV MCH MCHC RDW Plt Count MPV Total Counted Neutrophils % Neutrophils % (Manual) Band Neutrophils % Lymphocytes % Lymphocytes % (Manual) Monocytes % (Manual) Myelocytes % (Man) Metamyelocytes Plasma Cells Morphology Comment PT with INR INR Sodium 130 L Potassium 3.9 Chloride 98 Carbon Dioxide 22 Anion Gap 10 BUN 23 H Creatinine 0.9 Creat Clearance w eGFR POC Glucometer 169 Random Glucose 153 H Calcium 8.5 Phosphorus 3.1 Magnesium 2.4 Total Bilirubin AST ALT Alkaline Phosphatase Total Protein Albumin Problem List - Problems (1) Anxiety Code(s): F41.9 - ANXIETY DISORDER, UNSPECIFIED (2) Hypothyroidism Code(s): E03.9 - HYPOTHYROIDISM, UNSPECIFIED (3) PAF (paroxysmal atrial fibrillation) Code(s): I48.0 - PAROXYSMAL ATRIAL FIBRILLATION (4) Thrombocytopenia Code(s): D69.6 - THROMBOCYTOPENIA, UNSPECIFIED (5) A-fib Code(s): I48.91 - UNSPECIFIED ATRIAL FIBRILLATION Qualifiers: (6) Acute dyspnea Code(s): R06.00 - DYSPNEA, UNSPECIFIED (7) Acute renal insufficiency Code(s): N28.9 - DISORDER OF KIDNEY AND URETER, UNSPECIFIED (8) Anemia Code(s): D64.9 - ANEMIA, UNSPECIFIED (9) Cancer of ovary Code(s): C56.9 - MALIGNANT NEOPLASM OF UNSPECIFIED OVARY Qualifiers: (10) Diabetes Code(s): E11.9 - TYPE 2 DIABETES MELLITUS WITHOUT COMPLICATIONS Qualifiers: Diabetes mellitus type: type 2 Diabetes mellitus complication status: without complication (11) HTN (hypertension) Code(s): I10 - ESSENTIAL (PRIMARY) HYPERTENSION Qualifiers: (12) Morbidly obese Code(s): E66.01 - MORBID (SEVERE) OBESITY DUE TO EXCESS CALORIES (13) Primary cancer of ovary with widespread metastatic disease Code(s): C56.9 - MALIGNANT NEOPLASM OF UNSPECIFIED OVARY; C80.0 - DISSEMINATED MALIGNANT NEOPLASM, UNSPECIFIED (14) Pulmonary nodules/lesions, multiple Code(s): R91.8 - OTHER NONSPECIFIC ABNORMAL FINDING OF LUNG FIELD (15) SOB (shortness of breath) Code(s): R06.02 - SHORTNESS OF BREATH (16) Hypothyroid Code(s): E03.9 - HYPOTHYROIDISM, UNSPECIFIED (17) Cough Code(s): R05 - COUGH IMP METASTATIC HIGH GRADE MULLERIAN CA COUGH,DYSPNEA ?SECONDARY TO EXTENSIVE METS,+ H/O ASTHMA HTN AFIB CHRONIC LYMPHADEMA DM SURY THROMBOCYTOPENIA MORBID OBESITY PLAN INHALED BRONCHODILATORS O2 STEROIDS OFF ANTIBIOTICS AT PRESENT ANTI-TUSSIVES SPIRIVA FALL PRECAUTIONS Dr An
--- NOTE | 2017-04-08 12:16 | PN ---
Progress Note (short form) - Note Progress Note: Renal follow up for SURY Pt seen and examined at the bedside awake and alert s/p fall when she was transferring to the chair no head trauma no sob at rest eating more Vital Signs Temperature 98 F 04/08/17 10:00 Pulse Rate 104 H 04/08/17 10:00 Respiratory Rate 20 04/08/17 10:00 Blood Pressure 136/77 04/08/17 10:00 O2 Sat by Pulse Oximetry (%) 99 04/08/17 09:00 Intake & Output 04/05/17 04/06/17 04/07/17 04/08/17 23:59 23:59 23:59 23:59 Intake Total 2380 3070 1213 150 Balance 2380 3070 1213 150 NAD RRRR dry MM CTA Obese Abd 3+ edema in le CBC, BMP 04/08/17 06:00 04/08/17 06:00 Current Medications Acetaminophen (Tylenol -) 500 mg PO DAILY [facility] Last Admin: 04/08/17 10:31 Dose: Not Given Acetaminophen (Tylenol -) 500 mg PO Q6H PRN PRN Reason: FEVER OR PAIN Last Admin: 04/06/17 20:50 Dose: 500 mg Albuterol Sulfate (Ventolin Hfa Inhaler -) 2 puff IH Q4H PRN PRN Reason: SHORT OF BREATH/WHEEZING Last Admin: 04/03/17 21:46 Dose: 2 puff Albuterol Sulfate (Ventolin 0.083% Nebulizer Soln -) 1 amp NEB Q6H PRN PRN Reason: SHORT OF BREATH/WHEEZING Last Admin: 04/07/17 17:19 Dose: 1 amp Albuterol/Ipratropium (Duoneb -) 1 amp NEB Q4H PRN PRN Reason: SHORTNESS OF BREATH Last Admin: 04/08/17 05:03 Dose: 1 amp Bupropion HCl (Wellbutrin Xl -) 150 mg PO DAILY [facility] Last Admin: 04/08/17 10:31 Dose: 150 mg Dexamethasone Sodium Phosphate (Decadron Injection -) 2 mg IVPUSH BID [facility] Last Admin: 04/08/17 10:32 Dose: 2 mg Diltiazem HCl (Cardizem Cd -) 300 mg PO DAILY [facility] Last Admin: 04/08/17 10:26 Dose: 300 mg Docusate Sodium (Colace -) 100 mg PO TID [facility] Last Admin: 04/08/17 06:19 Dose: Not Given Fentanyl (Duragesic 25mcg Patch -) 1 patch TD Q72H [facility] Stop: 04/14/17 16:29 Last Admin: 04/07/17 16:44 Dose: 1 patch Gabapentin (Neurontin -) 100 mg PO TID [facility] Last Admin: 04/08/17 06:19 Dose: Not Given Guaifenesin (Diabetic Tussin Dm -) 10 ml PO Q6H [facility] Last Admin: 04/08/17 06:19 Dose: 10 ml Insulin Aspart (Novolog Vial Sliding Scale -) 1 vial SQ [facility] PRN Reason: Protocol Last Admin: 04/08/17 12:03 Dose: 2 unit Insulin Detemir (Levemir Vial) 10 units SQ [facility] Last Admin: 04/07/17 22:11 Dose: 10 unit Levothyroxine Sodium (Synthroid -) 75 mcg PO DAILY@0700 [facility] Last Admin: 04/08/17 06:20 Dose: 75 mcg Lidocaine (Lidoderm Patch -) 1 patch TP [facility] Last Admin: 04/07/17 22:11 Dose: Not Given Miscellaneous (Lidoderm Patch Removal) 1 each MC DAILY [facility] Last Admin: 04/08/17 11:17 Dose: Not Given Miscellaneous (Duragesic Patch Waste) 1 each TD PRN PRN PRN Reason: PAIN Montelukast Sodium (Singulair -) 10 mg PO [facility] Last Admin: 04/07/17 21:58 Dose: 10 mg Pazopanib 200mg Tab (Non-Formulary Med) 3 each PO DAILY@1100 [facility] Last Admin: 04/08/17 10:32 Dose: 3 each Nystatin (Nystatin Oral Suspension -) 500,000 units PO Q6HPO [facility] Last Admin: 04/08/17 12:06 Dose: 500,000 units Pantoprazole Sodium (Protonix -) 40 mg PO DAILY [facility] Last Admin: 04/08/17 10:25 Dose: 40 mg Polyethylene Glycol (Miralax (For Daily Use) -) 17 gm PO DAILY [facility] Last Admin: 04/08/17 11:18 Dose: Not Given Prochlorperazine Maleate (Compazine -) 10 mg PO Q6H PRN PRN Reason: NAUSEA AND/OR VOMITING Senna (Senna -) 2 tab PO HS PRN PRN Reason: CONSTIPATION Last Admin: 04/03/17 21:33 Dose: 2 tab Tiotropium [place] (Spiriva -) 1 puff IH DAILY [facility] Last Admin: 04/07/17 10:56 Dose: 1 puff Tramadol HCl (Ultram -) 75 mg PO DAILY [facility] Last Admin: 04/08/17 10:24 Dose: 75 mg Tramadol HCl (Ultram -) 75 mg PO Q6H PRN PRN Reason: PAIN SCALE ABOVE 5 Stop: 04/08/17 21:43 Warfarin Sodium (Coumadin -) 3 mg PO DAILY@1800 [facility] Last Admin: 04/05/17 17:33 Dose: 3 mg 61 year old woman with PMhx of Metastatic Ovarian Ca (lung, Liver) on Chemo, Hypertension, DM Type 2, Chronic Lymphedema, Obesity presented with thrombocytopenia and found to have hyponatremia. #Acute Renal Insufficiency in setting of diuretics Renal function stable can change diet back to regular from low K would trend weights and restart diuretics if weight trend up #Hyponatremia Na stable around 130 no indication for salt tabs or 3% saline #Metastatic ovarian Ca supportive care Mirza Zuleta DO
[2017-04-08 12:32] LABS: ANISOCYTOSIS 2+; MACROCYTOSIS 0; PLATELET ESTIMATE NORMAL
--- NOTE | 2017-04-08 13:13 | PN ---
Progress Note (short form) - Note Progress Note: Patient seen and examined. Overnight events noted. Hospitalist consultation appreciated. O/E: General: NAD, looks weak and fatigued. Cor: RSR, No murmurs, No gallops Lungs: Clear to P&A Abd: Soft, Normal bowel sounds, No organomegaly Ext:No significant edema Skin: edematous LE: chronic LE edema Last Vital Signs Temp Pulse Resp BP Pulse Ox 98 F 104 H 20 136/77 99 04/08/17 10:00 04/08/17 10:00 04/08/17 10:00 04/08/17 10:00 04/08/17 09:00 CBC, BMP 04/08/17 06:00 04/08/17 06:00 Assessment/Plan: Metastatic High grade Mullerian cancer s/p two lines of chemotherapy, now on Pazopanib due to POD , started on 04/05/2017 T10 epidural dis-- ideally RT, pt keeps refusing daily , therefore was started on pazopanib for systemic control. On coumadin for afib, hold for today, INR monitoring. Pain control continue tramadol/tylenol patient with pruritus with codeine/morphine/dilaudid c/w fentanyl Off of abx, renal fn improved Dispo: d/w pt and daughter in detail. about disposition . [facility] recommended. pt says that she wanted to go home, daughter unsure, Decision about RT re-visited. Remains indecisive at this time in all terms. requesting portable home O2.. Prognosis was discussed by . d/wRN.
--- NOTE | 2017-04-08 17:46 | PN ---
Progress Note (short form) - Note Progress Note: Patient had an episode of leg weakness last night. She has started oral systemic therapy Friday. She declines radiation at this time because she still has orthopnea. May be discharged soon. We remain available if her neurological situation deteriorates. Will follow while she is an in-patient
[2017-04-08] MEDS: MONTELUKAST NA 10 MG TABLET PO SCH (21:22)
[2017-04-08] MEDS: INSULIN DETEMIR 100 UNITS/ML MDV SQ SCH (21:24)
[2017-04-08] MEDS: LIDOCAINE 5% TOPICAL PATCH TP SCH (21:25)
[2017-04-09] MEDS: guaiFENesin/D-M SUGAR-FREE/ACLHOL-FREE 118 ML BOTTLE PO SCH ×4 (00:30→18:19)
[2017-04-09] MEDS: NYSTATIN 500,000 UNITS/5 ML SUSPENSION PO SCH ×4 (00:50→18:19)
[2017-04-09] MEDS: LEVOTHYROXINE NA 75 MCG TABLET (FP) PO SCH (06:40)
[2017-04-09] MEDS: INSULIN SLIDING SCALE (NOVOLOG) 1 VIAL SQ SCH ×4 (06:40→21:47)
[2017-04-09] MEDS: GABAPENTIN 100 MG CAPSULE (FP) PO SCH ×3 (06:41→21:47)
[2017-04-09] MEDS: DOCUSATE SODIUM 100 MG CAPSULE (FP) PO SCH ×3 (06:41→21:47)
[2017-04-09] MEDS ORDERED: INSULIN (NOVOLOG) ASPART 100 UNITS/ML 10ML VIAL ONE ×2 (06:44→17:59)
[2017-04-09] MEDS ORDERED: INSULIN DETEMIR 100 UNITS/ML MDV SQ ONE (06:45)
[2017-04-09] MEDS: ALBUTEROL SO4 0.083% IH SOL 2.5 MG/3 ML VIAL.NEB. NEB PRN ×3 (07:07→20:45)
--- NOTE | 2017-04-09 07:11 | PN ---
Progress Note (short form) - Note Progress Note: patient is 61 yo female with Metatastic mullerian ovarian cancer, HTN, Obesity, DM type 2 and Lymphaedenia, recently hyper kalaemia. She is starting on Chemotherapeutic agent today. Has stage 2 pressure ulcer. Currently she is on wellbutrin 150mg daily, last given this amat 10. She is on xanax but not recieved since 12-14. On gabapentin 100mg TID. Takes tramadol and warfarin also. Mild anxiety present, attempting to adjust to current diagnosis of metastic CA. Some cognitive blunting. Awareness is present, and o by 4, denies SI, HI ah or VH,. Plan.. May reduce wellbutrin to 75 mg at morning pending severity of medical condition and drug metabolism, avoid evening or night dosing as it will keep her awake. Problem List - Problems (1) Anxiety Code(s): F41.9 - ANXIETY DISORDER, UNSPECIFIED
--- NOTE | 2017-04-09 08:07 | PN ---
Progress Note, Physician Chief Complaint: Pt remains dyspneic on mild exertion; depressed regarding diagnosis. History of Present Illness: Ms. 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 Pt presented to the ED after outpt labs reveled thrombocytopenia to 39k. Coumadin was held and is still on hold, no active bleed noted. Pt received 1 unit platelets and is being admitted for further transfusions. Of note, pt was climbing the stairs, when she reached the final step her leg went weak and then pivoted around. She now has some eccyhymosis to her lateral side, slip was witnessed by daughter and EMS worker, she did not hit her head, xrays pending. History Source: Patient, Family Member Limitations to Obtaining History: No Limitations - Past Medical History Cardiovascular: Yes: AFIB, HTN, Other (chronic lymphedema) Pulmonary: Yes: COPD, Other (recently had a chest tube removed). No: O2 Dependent Gastrointestinal: Yes: GERD Heme/Onc: Yes: Anemia, Other Endocrine: Yes: Diabetes Mellitus, Hyperthyroidism - Current Medication List Current Medications: Active Medications Acetaminophen (Tylenol -) 500 mg PO DAILY [facility] Last Admin: 04/08/17 10:31 Dose: Not Given Acetaminophen (Tylenol -) 500 mg PO Q6H PRN PRN Reason: FEVER OR PAIN Last Admin: 04/06/17 20:50 Dose: 500 mg Albuterol Sulfate (Ventolin Hfa Inhaler -) 2 puff IH Q4H PRN PRN Reason: SHORT OF BREATH/WHEEZING Last Admin: 04/03/17 21:46 Dose: 2 puff Albuterol Sulfate (Ventolin 0.083% Nebulizer Soln -) 1 amp NEB Q6H PRN PRN Reason: SHORT OF BREATH/WHEEZING Last Admin: 04/09/17 07:07 Dose: 1 amp Albuterol/Ipratropium (Duoneb -) 1 amp NEB Q4H PRN PRN Reason: SHORTNESS OF BREATH Last Admin: 04/08/17 23:28 Dose: 1 amp Bupropion HCl (Wellbutrin Xl -) 150 mg PO DAILY [facility] Last Admin: 04/08/17 10:31 Dose: 150 mg Dexamethasone Sodium Phosphate (Decadron Injection -) 2 mg IVPUSH BID [facility] Last Admin: 04/08/17 21:22 Dose: 2 mg Diltiazem HCl (Cardizem Cd -) 300 mg PO DAILY [facility] Last Admin: 04/08/17 10:26 Dose: 300 mg Docusate Sodium (Colace -) 100 mg PO TID [facility] Last Admin: 04/09/17 06:41 Dose: Not Given Fentanyl (Duragesic 25mcg Patch -) 1 patch TD Q72H [facility] Stop: 04/14/17 16:29 Last Admin: 04/07/17 16:44 Dose: 1 patch Gabapentin (Neurontin -) 100 mg PO TID [facility] Last Admin: 04/09/17 06:41 Dose: Not Given Guaifenesin (Diabetic Tussin Dm -) 10 ml PO Q6H [facility] Last Admin: 04/09/17 06:40 Dose: 10 ml Insulin Aspart (Novolog Vial Sliding Scale -) 1 vial SQ [facility] PRN Reason: Protocol Last Admin: 04/09/17 06:40 Dose: Not Given Insulin Detemir (Levemir Vial) 10 units SQ [facility] Last Admin: 04/08/17 21:24 Dose: 10 unit Levothyroxine Sodium (Synthroid -) 75 mcg PO DAILY@0700 [facility] Last Admin: 04/09/17 06:40 Dose: 75 mcg Lidocaine (Lidoderm Patch -) 1 patch TP [facility] Last Admin: 04/08/17 21:25 Dose: Not Given Miscellaneous (Lidoderm Patch Removal) 1 each MC DAILY [facility] Last Admin: 04/08/17 11:17 Dose: Not Given Miscellaneous (Duragesic Patch Waste) 1 each TD PRN PRN PRN Reason: PAIN Montelukast Sodium (Singulair -) 10 mg PO [facility] Last Admin: 04/08/17 21:22 Dose: 10 mg Pazopanib 200mg Tab (Non-Formulary Med) 3 each PO DAILY@1100 [facility] Last Admin: 04/08/17 10:32 Dose: 3 each Nystatin (Nystatin Oral Suspension -) 500,000 units PO Q6HPO [facility] Last Admin: 04/09/17 06:40 Dose: 500,000 units Pantoprazole Sodium (Protonix -) 40 mg PO DAILY [facility] Last Admin: 04/08/17 10:25 Dose: 40 mg Polyethylene Glycol (Miralax (For Daily Use) -) 17 gm PO DAILY [facility] Last Admin: 04/08/17 11:18 Dose: Not Given Prochlorperazine Maleate (Compazine -) 10 mg PO Q6H PRN PRN Reason: NAUSEA AND/OR VOMITING Senna (Senna -) 2 tab PO HS PRN PRN Reason: CONSTIPATION Last Admin: 04/03/17 21:33 Dose: 2 tab Tiotropium [place] (Spiriva -) 1 puff IH DAILY [facility] Last Admin: 04/08/17 10:42 Dose: Not Given Tramadol HCl (Ultram -) 75 mg PO DAILY [facility] Last Admin: 04/08/17 10:24 Dose: 75 mg Warfarin Sodium (Coumadin -) 3 mg PO DAILY@1800 [facility] Last Admin: 04/05/17 17:33 Dose: 3 mg - Objective Vital Signs: Vital Signs Temperature 97.5 F L 04/09/17 06:00 Pulse Rate 107 H 04/09/17 06:00 Respiratory Rate 20 04/09/17 06:00 Blood Pressure 136/69 04/09/17 06:00 O2 Sat by Pulse Oximetry (%) 99 04/08/17 20:19 Constitutional: Yes: Anxious Eyes: Yes: WNL HENT: Yes: WNL Neck: Yes: WNL Cardiovascular: Yes: S1 (varies in intensity), S2 Respiratory: Yes: Diminished Gastrointestinal: Yes: Soft, Abdomen, Obese ...Rectal Exam: Yes: Deferred Genitourinary: No: Anuria Breast(s): Yes: WNL Musculoskeletal: Yes: Muscle Weakness Extremities: Yes: Cool Edema: Yes Edema: LLE: 4+, RLE: 4+ Peripheral Pulses WNL: Yes Integumentary: Yes: Venous Stasis Changes Neurological: Yes: Alert, Oriented, Weakness Psychiatric: Yes: Other (anxiety/depression) Labs: CBC, BMP 04/08/17 06:00 04/08/17 06:00 INR, PTT INR 2.88 (0.82-1.09) H 04/08/17 06:00 Abnormal Lab Results 04/08/17 04/08/17 06:00 06:00 Lymphocytes % (Manual) 2.0 L Monocytes % (Manual) 14 H Sodium 130 L BUN 23 H Random Glucose 153 H Problem List - Problems (1) Leukocytosis Code(s): D72.829 - ELEVATED WHITE BLOOD CELL COUNT, UNSPECIFIED (2) MRSA (methicillin resistant Staphylococcus aureus) colonization Code(s): Z22.322 - CARRIER OR SUSPECTED CARRIER OF METHICILLIN RESIS STAPH (3) Thrombocytopenia Code(s): D69.6 - THROMBOCYTOPENIA, UNSPECIFIED (4) A-fib Assessment/Plan: Continue diltiazem CD for HR control. Continue on warfarin (INR now 2.88). Maintain K 4-4.5, Mg 2-2.3, PO4 2.5-3.5. Code(s): I48.91 - UNSPECIFIED ATRIAL FIBRILLATION Qualifiers: (5) Abscess Code(s): L02.91 - CUTANEOUS ABSCESS, UNSPECIFIED (6) Anemia Code(s): D64.9 - ANEMIA, UNSPECIFIED (7) Anxiety and depression Code(s): F41.9 - ANXIETY DISORDER, UNSPECIFIED; F32.9 - MAJOR DEPRESSIVE DISORDER, SINGLE EPISODE, UNSPECIFIED (8) Cancer of ovary Assessment/Plan: CA ovaries with mets. Starting chemotherapy today. Code(s): C56.9 - MALIGNANT NEOPLASM OF UNSPECIFIED OVARY Qualifiers: (9) Cellulitis Code(s): L03.90 - CELLULITIS, UNSPECIFIED Qualifiers: Site of cellulitis: extremity Site of cellulitis of extremity: lower extremity Laterality: left Qualified Code(s): L03.116 - Cellulitis of left lower limb (10) Diabetes Code(s): E11.9 - TYPE 2 DIABETES MELLITUS WITHOUT COMPLICATIONS Qualifiers: Diabetes mellitus type: type 2 Diabetes mellitus complication status: without complication (11) HTN (hypertension) Code(s): I10 - ESSENTIAL (PRIMARY) HYPERTENSION Qualifiers: (12) Primary cancer of ovary with widespread metastatic disease Code(s): C56.9 - MALIGNANT NEOPLASM OF UNSPECIFIED OVARY; C80.0 - DISSEMINATED MALIGNANT NEOPLASM, UNSPECIFIED (13) SOB (shortness of breath) Assessment/Plan: SOB on minimal exertion.. On cough suppressants (with improvement in cough) and antibiotics. Code(s): R06.02 - SHORTNESS OF BREATH (14) Hypothyroid Assessment/Plan: On synthroid. Code(s): E03.9 - HYPOTHYROIDISM, UNSPECIFIED (15) Lymphedema Code(s): I89.0 - LYMPHEDEMA, NOT ELSEWHERE CLASSIFIED
[2017-04-09 08:09] LABS: INR 2.38 (0.82-1.09); PROTHROMBIN TIME (PATIENT) 26.9 SEC (9.98-11.88)
--- NOTE | 2017-04-09 08:49 | DS ---
Physical Examination Vital Signs: Vital Signs Temperature 97.5 F L 04/09/17 06:00 Pulse Rate 107 H 04/09/17 06:00 Respiratory Rate 20 04/09/17 06:00 Blood Pressure 136/69 04/09/17 06:00 O2 Sat by Pulse Oximetry (%) 99 04/08/17 20:19 Findings/Remarks: lying in bed comfortable No new issues Chronic ill appearance Do not want to go for SNf Wants to go home only Discharge being planned--by dependency case manager--- Constitutional: Yes: No Distress, Obese Neck: Yes: Supple Cardiovascular: Yes: Pulse Irregular Respiratory: Yes: Diminished Gastrointestinal: Yes: Soft Edema: Yes (chronic venous stasis) Edema: LLE: 2+, RLE: 2+ Neurological: Yes: Alert Psychiatric: Yes: Alert Labs: CBC, BMP 04/08/17 06:00 04/08/17 06:00 Discharge Summary Reason For Visit: METASTATIC ENDOMETRIAL CA Current Active Problems Anxiety (Acute) Cancer-related pain (Acute) Cough (Acute) Hyponatremia (Acute) Hypothyroidism (Acute) Leukocytosis (Acute) MRSA (methicillin resistant Staphylococcus aureus) colonization (Acute) PAF (paroxysmal atrial fibrillation) (Acute) Thrombocytopenia (Acute) Thrombocytopenia (Acute) Vomiting (Acute) Hospital Course: is a 61 year old female with recent dx of 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 Pt presented to the ED after outpt labs reveled thrombocytopenia to 39k--sent to hospital for admission by glass etcher helper patient admitted Hematology followed Patient also treated with antibiotics for possible pneumonia Patient unable to tolerate radiation therapy Patient now overall stable for discharge But weak Do not want to go for short-term rehabilitation Wants to go home only arrangements are being made All precautions discussed in detail with patient and patient's daughter --who is at bedside Coumadin with caution Monitor closely medications reconciled Discussed in detail with dependency case manager also as well as nursing staff Anticipated discharge today--a former arrangements are made Discussed with oncologist also--also in agreement. They will follow closely Overall condition guarded Patient is DNR DNI Discharge time--35 minutes in documenting examining and coordinating care. Condition: Guarded - Instructions Disposition: HOME - Home Medications Comprehensive Discharge Medication List: Ambulatory Orders Levothyroxine [Synthroid -] 75 mcg PO DAILY 10/17/12 Metformin HCl [Glucophage] 500 mg PO BID 10/17/12 [place]-3 Acid Ethyl Esters [Lovaza -] 1,000 mg PO TID 10/17/12 Insulin (Novolog) [Novolog Flexpen -] See Protocol SQ ACHS #1 pen 10/03/16 Potassium Chloride 10 meq PO DAILY 10/24/16 Diltiazem Cd [Cardizem Cd -] 300 mg PO DAILY 10/25/16 Furosemide [Lasix -] 40 mg PO DAILY 01/02/17 Montelukast Na [Singulair -] 10 mg PO HS 01/02/17 Albuterol Sulfate Inhaler - [Ventolin HFA Inhaler -] 2 puff IH Q4H PRN #5 inhaler 02/26/17 Bupropion HCl [Wellbutrin Xl -] 150 mg PO DAILY #90 tab.sr.24h 02/26/17 Fentanyl Patch Waste [Duragesic Patch Waste] 1 each TD Q3D PRN #15 each Lytes/Yerba Neelima [Mouthkote Solution -] 1 applic MM DAILY #1 applic 02/26/17 Nystatin Powder [Nystop Powder -] 15 gm TP BID #60 powder 02/26/17 Polyethylene Glycol 3350 [Miralax 119 gm Btl -] 17 gm PO DAILY #1 bottle Sennosides [Senna -] 2 tab PO HS PRN #60 tablet 02/26/17 Tiotropium Reform [Spiriva] 1 puff IH DAILY #5 inh 02/26/17 Tramadol HCl [Ultram -] 75 mg PO Q6H PRN #90 tablet MDD 4 02/26/17 Warfarin Na [Coumadin -] 2 mg PO DAILY@1800 #30 tablet 02/26/17 Zinc Oxide 1 applic TP BID #2 tube 02/26/17 Acetaminophen [Tylenol .Extra-Strength -] 500 mg PO Q6H PRN tablet 04/09/17 Albuterol 0.083% Nebulizer Alma Delia [Ventolin 0.083% Nebulizer Soln -] 1 amp NEB Q6H PRN amp 04/09/17 Docusate Sodium [Colace -] 100 mg PO TID capsule 04/09/17 Gabapentin [Neurontin -] 100 mg PO TID #90 capsule 04/09/17 Insulin (Levemir) [Levemir Vial] 10 units SQ HS ml 04/09/17 Lidocaine 5% Patch [Lidoderm -] 1 patch TP HS patch 04/09/17 Pantoprazole Sodium [Protonix -] 40 mg PO DAILY #30 tablet.ec MDD 1 04/09/17 Prednisone [Deltasone -] 10 mg PO DAILY #30 tablet 04/09/17
[2017-04-09] MEDS ORDERED: PT OWN MED DRAWER 7, Y5N ONE ×5 (09:51→16:42)
[2017-04-09] MEDS: DEXAMETHASONE SOD PHOSPHATE 4 MG/1 ML VIAL IVPUSH SCH ×2 (10:05→21:55)
[2017-04-09] MEDS: LIDOCAINE PATCH REMOVAL MC SCH (10:06)
[2017-04-09] MEDS: traMADol HCL 50 MG TABLET PO SCH (10:06)
[2017-04-09] MEDS: POLYETHYLENE GLYCOL 3350 119 GM BTL PO SCH (10:06)
[2017-04-09] MEDS: PANTOPRAZOLE 40 MG TABLET (FP) PO SCH (10:06)
[2017-04-09] MEDS: TIOTROPIUM BROMIDE 18 MCG/INH (DEVICE W/ 5 CAPSULES) IH SCH (10:07)
[2017-04-09] MEDS: ACETAMINOPHEN 500 MG TABLET (FP) PO SCH (10:08)
--- NOTE | 2017-04-09 11:04 | PN ---
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 Pt presented to the ED after outpt labs reveled thrombocytopenia to 39k. Coumadin was held and is still on hold, no active bleed noted. Pt received 1 unit platelets and is being admitted for further transfusions. Of note, pt was climbing the stairs, when she reached the final step her leg went weak and then pivoted around. She now has some eccyhymosis to her lateral side, slip was witnessed by daughter and EMS worker, she did not hit her head, xrays pending. - Current Medication List Current Medications: Active Medications Acetaminophen (Tylenol -) 500 mg PO DAILY [facility] Last Admin: 04/09/17 10:08 Dose: Not Given Acetaminophen (Tylenol -) 500 mg PO Q6H PRN PRN Reason: FEVER OR PAIN Last Admin: 04/06/17 20:50 Dose: 500 mg Albuterol Sulfate (Ventolin Hfa Inhaler -) 2 puff IH Q4H PRN PRN Reason: SHORT OF BREATH/WHEEZING Last Admin: 04/03/17 21:46 Dose: 2 puff Albuterol Sulfate (Ventolin 0.083% Nebulizer Soln -) 1 amp NEB Q6H PRN PRN Reason: SHORT OF BREATH/WHEEZING Last Admin: 04/09/17 07:07 Dose: 1 amp Albuterol/Ipratropium (Duoneb -) 1 amp NEB Q4H PRN PRN Reason: SHORTNESS OF BREATH Last Admin: 04/08/17 23:28 Dose: 1 amp Bupropion HCl (Wellbutrin Xl -) 150 mg PO DAILY [facility] Last Admin: 04/09/17 10:06 Dose: 150 mg Dexamethasone Sodium Phosphate (Decadron Injection -) 2 mg IVPUSH BID [facility] Last Admin: 04/09/17 10:05 Dose: 2 mg Diltiazem HCl (Cardizem Cd -) 300 mg PO DAILY [facility] Last Admin: 04/09/17 10:05 Dose: 300 mg Docusate Sodium (Colace -) 100 mg PO TID [facility] Last Admin: 04/09/17 06:41 Dose: Not Given Fentanyl (Duragesic 25mcg Patch -) 1 patch TD Q72H [facility] Stop: 04/14/17 16:29 Last Admin: 04/07/17 16:44 Dose: 1 patch Gabapentin (Neurontin -) 100 mg PO TID [facility] Last Admin: 04/09/17 06:41 Dose: Not Given Guaifenesin (Diabetic Tussin Dm -) 10 ml PO Q6H [facility] Last Admin: 04/09/17 06:40 Dose: 10 ml Insulin Aspart (Novolog Vial Sliding Scale -) 1 vial SQ [facility] PRN Reason: Protocol Last Admin: 04/09/17 06:40 Dose: Not Given Insulin Detemir (Levemir Vial) 10 units SQ [facility] Last Admin: 04/08/17 21:24 Dose: 10 unit Levothyroxine Sodium (Synthroid -) 75 mcg PO DAILY@0700 [facility] Last Admin: 04/09/17 06:40 Dose: 75 mcg Lidocaine (Lidoderm Patch -) 1 patch TP [facility] Last Admin: 04/08/17 21:25 Dose: Not Given Miscellaneous (Lidoderm Patch Removal) 1 each MC DAILY [facility] Last Admin: 04/09/17 10:06 Dose: Not Given Miscellaneous (Duragesic Patch Waste) 1 each TD PRN PRN PRN Reason: PAIN Montelukast Sodium (Singulair -) 10 mg PO [facility] Last Admin: 04/08/17 21:22 Dose: 10 mg Pazopanib 200mg Tab (Non-Formulary Med) 3 each PO DAILY@1100 [facility] Last Admin: 04/08/17 10:32 Dose: 3 each Nystatin (Nystatin Oral Suspension -) 500,000 units PO Q6HPO [facility] Last Admin: 04/09/17 06:40 Dose: 500,000 units Pantoprazole Sodium (Protonix -) 40 mg PO DAILY [facility] Last Admin: 04/09/17 10:06 Dose: 40 mg Polyethylene Glycol (Miralax (For Daily Use) -) 17 gm PO DAILY [facility] Last Admin: 04/09/17 10:06 Dose: Not Given Prochlorperazine Maleate (Compazine -) 10 mg PO Q6H PRN PRN Reason: NAUSEA AND/OR VOMITING Senna (Senna -) 2 tab PO HS PRN PRN Reason: CONSTIPATION Last Admin: 04/03/17 21:33 Dose: 2 tab Tiotropium [place] (Spiriva -) 1 puff IH DAILY [facility] Last Admin: 04/09/17 10:07 Dose: 1 puff Tramadol HCl (Ultram -) 75 mg PO DAILY [facility] Last Admin: 04/09/17 10:06 Dose: 75 mg Warfarin Sodium (Coumadin -) 3 mg PO DAILY@1800 [facility] Last Admin: 04/05/17 17:33 Dose: 3 mg - Objective Vital Signs: Vital Signs Temperature 97.5 F L 04/09/17 06:00 Pulse Rate 107 H 04/09/17 06:00 Respiratory Rate 20 04/09/17 06:00 Blood Pressure 136/69 04/09/17 06:00 O2 Sat by Pulse Oximetry (%) 99 04/08/17 20:19 Eyes: Yes: WNL, Conjunctiva Clear, EOM Intact HENT: Yes: WNL, Atraumatic, Normocephalic Neck: Yes: WNL, Supple, Trachea Midline Cardiovascular: Yes: Pulse Irregular, S1, S2 Respiratory: Yes: WNL, Regular, CTA Bilaterally Gastrointestinal: Yes: WNL, Normal Bowel Sounds Genitourinary: Yes: WNL Musculoskeletal: Yes: WNL Extremities: Yes: WNL Edema: Yes Integumentary: Yes: WNL Neurological: Yes: WNL, Alert, Oriented ...Motor Strength: WNL Psychiatric: Yes: WNL Labs: CBC, BMP 04/08/17 06:00 04/08/17 06:00 INR, PTT INR 2.38 (0.82-1.09) H 04/09/17 06:00 Assessment/Plan Problems (1) Leukocytosis Code(s): D72.829 - ELEVATED WHITE BLOOD CELL COUNT, UNSPECIFIED (2) MRSA (methicillin resistant Staphylococcus aureus) colonization Code(s): Z22.322 - CARRIER OR SUSPECTED CARRIER OF METHICILLIN RESIS STAPH (3) Thrombocytopenia Code(s): D69.6 - THROMBOCYTOPENIA, UNSPECIFIED (4) A-fib Assessment/Plan: Continue diltiazem CD for HR control. Continue on warfarin (INR now >2.0). Maintain K 4-4.5, Mg 2-2.3, PO4 2.5-3.5. Code(s): I48.91 - UNSPECIFIED ATRIAL FIBRILLATION Qualifiers: (5) Abscess Code(s): L02.91 - CUTANEOUS ABSCESS, UNSPECIFIED (6) Anemia Code(s): D64.9 - ANEMIA, UNSPECIFIED (7) Anxiety and depression Code(s): F41.9 - ANXIETY DISORDER, UNSPECIFIED; F32.9 - MAJOR DEPRESSIVE DISORDER, SINGLE EPISODE, UNSPECIFIED (8) Cancer of ovary Assessment/Plan: CA ovaries with mets. Rx per oncologist. Code(s): C56.9 - MALIGNANT NEOPLASM OF UNSPECIFIED OVARY Qualifiers: (9) Cellulitis Code(s): L03.90 - CELLULITIS, UNSPECIFIED Qualifiers: Site of cellulitis: extremity Site of cellulitis of extremity: lower extremity Laterality: left Qualified Code(s): L03.116 - Cellulitis of left lower limb (10) Diabetes Code(s): E11.9 - TYPE 2 DIABETES MELLITUS WITHOUT COMPLICATIONS Qualifiers: Diabetes mellitus type: type 2 Diabetes mellitus complication status: without complication (11) HTN (hypertension) Code(s): I10 - ESSENTIAL (PRIMARY) HYPERTENSION Qualifiers: (12) Primary cancer of ovary with widespread metastatic disease Code(s): C56.9 - MALIGNANT NEOPLASM OF UNSPECIFIED OVARY; C80.0 - DISSEMINATED MALIGNANT NEOPLASM, UNSPECIFIED (13) SOB (shortness of breath) Assessment/Plan: SOB on minimal exertion.. On cough supressants (with improvement in cough) and antibiotics. Code(s): R06.02 - SHORTNESS OF BREATH (14) Hypothyroid Assessment/Plan: On synthroid. Code(s): E03.9 - HYPOTHYROIDISM, UNSPECIFIED (15) Lymphedema Code(s): I89.0 - LYMPHEDEMA, NOT ELSEWHERE CLASSIFIED
[2017-04-09] MEDS: PAZOPANIB 200 MG PO SCH (11:38)
--- NOTE | 2017-04-09 14:39 | PN ---
Progress Note (short form) - Note Progress Note: Patient seen and examined. daughter at bedside US reviewed She feels OK. In bed now from chair. O/E: General: NAD, looks weak and fatigued. Cor: RSR, No murmurs, No gallops Lungs: Clear to P&A Abd: Soft, Normal bowel sounds, No organomegaly Ext:No significant edema Skin: edematous LE: chronic LE edema Last Vital Signs Temp Pulse Resp BP Pulse Ox 98 F 104 H 20 136/77 99 04/08/17 10:00 04/08/17 10:00 04/08/17 10:00 04/08/17 10:00 04/08/17 09:00 CBC, BMP 04/08/17 06:00 04/08/17 06:00 Assessment/Plan: Metastatic High grade Mullerian cancer s/p two lines of chemotherapy, now on Pazopanib due to POD , started on 04/05/2017 T10 epidural dis-- ideally RT, pt keeps refusing daily , therefore was started on pazopanib for systemic control. On coumadin for afib, hold for today, INR monitoring. Pain control continue tramadol/tylenol patient with pruritus with codeine/morphine/dilaudid c/w fentanyl Off of abx, renal fn improved dipso: family pt decided home with different services. Will need to see if cbc can be arranged at home next week, will kassidy molina
--- NOTE | 2017-04-09 18:07 | PN ---
Progress Note (short form) - Note Progress Note: Renal follow up for SURY Pt seen and examined at the bedside in bed no acute complaints Vital Signs Temperature 97.6 F 04/09/17 09:00 Pulse Rate 80 04/09/17 12:08 Respiratory Rate 20 04/09/17 09:00 Blood Pressure 132/68 04/09/17 09:00 O2 Sat by Pulse Oximetry (%) 98 04/09/17 12:08 Intake & Output 04/06/17 04/07/17 04/08/17 04/09/17 23:59 23:59 23:59 23:59 Intake Total 3070 1213 150 200 Balance 3070 1213 150 200 NAD RRRR dry MM CTA Obese Abd 3+ edema in le CBC, BMP 04/08/17 06:00 04/08/17 06:00 Current Medications Acetaminophen (Tylenol -) 500 mg PO DAILY [facility] Last Admin: 04/09/17 10:08 Dose: Not Given Acetaminophen (Tylenol -) 500 mg PO Q6H PRN PRN Reason: FEVER OR PAIN Last Admin: 04/06/17 20:50 Dose: 500 mg Albuterol Sulfate (Ventolin Hfa Inhaler -) 2 puff IH Q4H PRN PRN Reason: SHORT OF BREATH/WHEEZING Last Admin: 04/03/17 21:46 Dose: 2 puff Albuterol Sulfate (Ventolin 0.083% Nebulizer Soln -) 1 amp NEB Q6H PRN PRN Reason: SHORT OF BREATH/WHEEZING Last Admin: 04/09/17 12:07 Dose: 1 amp Albuterol/Ipratropium (Duoneb -) 1 amp NEB Q4H PRN PRN Reason: SHORTNESS OF BREATH Last Admin: 04/08/17 23:28 Dose: 1 amp Bupropion HCl (Wellbutrin Xl -) 150 mg PO DAILY [facility] Last Admin: 04/09/17 10:06 Dose: 150 mg Dexamethasone Sodium Phosphate (Decadron Injection -) 2 mg IVPUSH BID [facility] Last Admin: 04/09/17 10:05 Dose: 2 mg Diltiazem HCl (Cardizem Cd -) 300 mg PO DAILY [facility] Last Admin: 04/09/17 10:05 Dose: 300 mg Docusate Sodium (Colace -) 100 mg PO TID [facility] Last Admin: 04/09/17 14:14 Dose: 100 mg Fentanyl (Duragesic 25mcg Patch -) 1 patch TD Q72H [facility] Stop: 04/14/17 16:29 Last Admin: 04/07/17 16:44 Dose: 1 patch Gabapentin (Neurontin -) 100 mg PO TID [facility] Last Admin: 04/09/17 14:13 Dose: Not Given Guaifenesin (Diabetic Tussin Dm -) 10 ml PO Q6H [facility] Last Admin: 04/09/17 11:37 Dose: 10 ml Insulin Aspart (Novolog Vial Sliding Scale -) 1 vial SQ [facility] PRN Reason: Protocol Last Admin: 04/09/17 11:39 Dose: Not Given Insulin Detemir (Levemir Vial) 10 units SQ [facility] Last Admin: 04/08/17 21:24 Dose: 10 unit Levothyroxine Sodium (Synthroid -) 75 mcg PO DAILY@0700 [facility] Last Admin: 04/09/17 06:40 Dose: 75 mcg Lidocaine (Lidoderm Patch -) 1 patch TP [facility] Last Admin: 04/08/17 21:25 Dose: Not Given Miscellaneous (Lidoderm Patch Removal) 1 each MC DAILY [facility] Last Admin: 04/09/17 10:06 Dose: Not Given Miscellaneous (Duragesic Patch Waste) 1 each TD PRN PRN PRN Reason: PAIN Montelukast Sodium (Singulair -) 10 mg PO [facility] Last Admin: 04/08/17 21:22 Dose: 10 mg Pazopanib 200mg Tab (Non-Formulary Med) 3 each PO DAILY@1100 [facility] Last Admin: 04/09/17 11:38 Dose: 3 each Nystatin (Nystatin Oral Suspension -) 500,000 units PO Q6HPO [facility] Last Admin: 04/09/17 14:14 Dose: 500,000 units Pantoprazole Sodium (Protonix -) 40 mg PO DAILY [facility] Last Admin: 04/09/17 10:06 Dose: 40 mg Polyethylene Glycol (Miralax (For Daily Use) -) 17 gm PO DAILY [facility] Last Admin: 04/09/17 10:06 Dose: Not Given Prochlorperazine Maleate (Compazine -) 10 mg PO Q6H PRN PRN Reason: NAUSEA AND/OR VOMITING Senna (Senna -) 2 tab PO PRN PRN Reason: CONSTIPATION Last Admin: 04/03/17 21:33 Dose: 2 tab Tiotropium [place] (Spiriva -) 1 puff IH DAILY [facility] Last Admin: 04/09/17 10:07 Dose: 1 puff Tramadol HCl (Ultram -) 75 mg PO DAILY [facility] Last Admin: 04/09/17 10:06 Dose: 75 mg Warfarin Sodium (Coumadin -) 3 mg PO DAILY@1800 [facility] Last Admin: 04/05/17 17:33 Dose: 3 mg 61 year old woman with PMhx of Metastatic Ovarian Ca (lung, Liver) on Chemo, Hypertension, DM Type 2, Chronic Lymphedema, Obesity presented with thrombocytopenia and found to have hyponatremia. #Acute Renal Insufficiency in setting of diuretics Renal function stable can restart Lasix 40mg once daily starting tomorrow check BMP Q week trend weight daily hold diuretics if pt has poor oral intake pt to follow up in the office when possible #Hyponatremia Na stable around 130 #Metastatic ovarian Ca supportive care Mirza Zuleta DO
[2017-04-09] MEDS: WARFARIN NA 3 MG TABLET PO SCH ×2 (18:15→18:16)
[2017-04-09 21:10] VITALS: BP 128/73; PULSE 105; TEMP 97.8
[2017-04-09] MEDS: LIDOCAINE 5% TOPICAL PATCH TP SCH (21:47)
[2017-04-09] MEDS: MONTELUKAST NA 10 MG TABLET PO SCH (21:48)
[2017-04-09] MEDS: INSULIN DETEMIR 100 UNITS/ML MDV SQ SCH (21:56)
--- NOTE | 2017-04-11 12:52 | PN ---
Progress Note (short form) - Note Progress Note: is a 61 year old patient of our practice and is recently discharged from the hospital. 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 She needs a maggy lift to transfer as she is debilitated with lymphedema and also as a Stage IV cancer, she would be not able to come out of the bed without the help of a maggy lift. Please contact us with any questions. Sincerely, Abeba Sharpe MD [address] [place] [address] ( [address] ) [phone] [id number] ( NPI number)
--- NOTE | 2017-04-15 10:24 | PN ---
Progress Note (short form) - Note Progress Note: Pt was taken to [facility] overnight spoke to Cristy last night As per benson, pt was doing fine until morning Around afternoon, she started to have cough constant and then complained of resp difficulty. 911 was called and was taken to [facility] In the am, today, I called the [facility] x3 [facility] unable to talk to her. I called [facility] ER this morning, spoke to in the ER and was informed that she is admitted in the ICU. ICU was called, RN was called and was notified that patient ! Tried calling the family. 7w will try calling her too..
== END 2017-04-09 22:30 | disposition home or self-care (01) | DRG 813 ==
LOC: JONCBLOOD 12:54 → SUATTDRO 12:54 → J7W 12:55 → JONCBLOOD 18:17 → J7W 18:17
PROVIDERS: ADMIT Internal Medicine; ATTEND Internal Medicine
DX: D69.59 Other secondary thrombocytopenia (principal); J18.9 Pneumonia, unspecified organism; C56.9 Malignant neoplasm of unspecified ovary; C78.7 Secondary malignant neoplasm of liver and intrahepatic bile duct; C78.00 Secondary malignant neoplasm of unspecified lung; E87.1 Hypo-osmolality and hyponatremia; D61.818 Other pancytopenia; C78.6 Secondary malignant neoplasm of retroperitoneum and peritoneum; Z68.44 Body mass index [BMI] 60.0-69.9, adult; C79.51 Secondary malignant neoplasm of bone; I50.42 Chronic combined systolic (congestive) and diastolic (congestive) heart failure; N17.9 Acute kidney failure, unspecified; B37.0 Candidal stomatitis; E11.9 Type 2 diabetes mellitus without complications; Z79.01 Long term (current) use of anticoagulants; E66.01 Morbid (severe) obesity due to excess calories; Z79.4 Long term (current) use of insulin; D64.9 Anemia, unspecified; F41.8 Other specified anxiety disorders; I89.0 Lymphedema, not elsewhere classified; J44.9 Chronic obstructive pulmonary disease, unspecified; Z99.81 Dependence on supplemental oxygen; I48.0 Paroxysmal atrial fibrillation; K21.9 Gastro-esophageal reflux disease without esophagitis; E03.9 Hypothyroidism, unspecified; I11.0 Hypertensive heart disease with heart failure; E79.0 Hyperuricemia without signs of inflammatory arthritis and tophaceous disease; R05 Cough; R00.0 Tachycardia, unspecified; G89.3 Neoplasm related pain (acute) (chronic); R11.10 Vomiting, unspecified; Z66 Do not resuscitate; E87.5 Hyperkalemia; L89.322 Pressure ulcer of left buttock, stage 2
CPT/HCPCS: 36415; 36430; 71010-TC; 71020-TC; 71250-TC; 71260-TC; 73523-TC; 73590-TC-LT; 74177-TC; 76882; 80048; 80053; 80061; 82271; 82533; 83721; 83735; 83930; 83935; 84100; 84300; 84443; 84550; 85025; 85027; 85610; 85730; 86850; 86900; 86901; 86922; 87040; 87070; 87186; 87205; 87804; 93005; 93010; 93970-TC; 94640; 94761; 97116-GP; 97162-GP; J1644; P9034; P9038; P9058